=== PATIENT | male | born 1955 | race Caucasian/White ===

== ENCOUNTER 2022-12-12 07:43 | Outpatient (OUT) | payer OTHER, SELFPAY ==
--- NOTE | 2022-12-12 08:10 | CT_ITS ---
[address] [address] Patient Name: RUSSELL SANCHEZ MRN: [id number] date: 1955 Sex: M Assigned Patient Location: LAB Current Patient Location: LAB Accession/Order Number: [id number] Exam Date: 12/12/2022 08:05 Report Date: 12/12/2022 08:45 At the request of: OLEG GONZALEZ Procedure: CT lung screening low-dose EXAMINATION: CT lung screening low-dose HISTORY: Nicotine dependence, COPD F17.219 COMPARISON: 08/26/2022 TECHNIQUE: Axial, Coronal, and Sagittal images were created without the administration of IV contrast material. Dose reduction techniques were achieved by using automated exposure control and/or adjustment of mA and/or kV according to patient size and/or use of iterative reconstruction technique. FINDINGS: LUNGS: Improved aeration of the lungs with a few scattered punctate subcentimeter pulmonary nodules and linear opacities likely representing atelectasis and nonspecific nodules. PLEURA: No mass, effusion, or pneumothorax. VASCULATURE: No abnormality. LUIS FERNANDO: No mass or pathologic adenopathy. MEDIASTINUM: No mass or pathologic adenopathy. CARDIAC: No enlargement or pericardial effusion. Minimal coronary atherosclerosis AORTA: No aneurysm or dissection. CHEST WALL: No mass or axillary adenopathy BONES: No bone lesion or fracture. LIMITED ABDOMEN: No suspicious findings. Limited images of the upper abdomen. OTHER: Negative. IMPRESSION: LUNG SCREENING: Lung-RADS Category 2- Benign Appearance or Behavior. Nodules with a very low likelihood of becoming a clinically active cancer due to size or lack of growth. 2. Continue annual screening with LDCT in 12 months. Electronically authenticated by: MRACI DYE Date: 12/12/2022 08:45
== END 2022-12-12 07:44 ==
LOC: LAB 07:46
PROVIDERS: PCP Internal Medicine; Visit Provider Internal Medicine
DX: F17.211 Nicotine dependence, cigarettes, in remission (principal)
CPT/HCPCS: 71271

== ENCOUNTER 2022-12-12 07:46 | Outpatient (OUT) | payer OTHER, SELFPAY ==
[2022-12-12 09:22] LABS: Prostate Specific Antigen Dx 6.56 ng/mL (<=4.00)
== END 2022-12-12 07:47 | disposition home or self-care (01) ==
LOC: LAB 07:47
PROVIDERS: PCP Internal Medicine
DX: R97.20 Elevated prostate specific antigen [PSA] (principal); F17.211 Nicotine dependence, cigarettes, in remission
CPT/HCPCS: 36415; 71271; 84153

== ENCOUNTER 2023-04-12 10:28 | Outpatient (OUT) | payer MEDICARE, SELFPAY ==
[2023-04-12 12:12] LABS: Prostate Specific Antigen Dx 8.21 ng/mL (<=4.00)
== END 2023-04-12 10:29 | disposition home or self-care (01) ==
LOC: LAB 10:39
PROVIDERS: PCP Internal Medicine; Visit Provider Physician Assistant
DX: R97.20 Elevated prostate specific antigen [PSA] (principal); N40.1 Benign prostatic hyperplasia with lower urinary tract symptoms; N13.8 Other obstructive and reflux uropathy
CPT/HCPCS: 36415; 84153

== ENCOUNTER 2023-06-01 07:35 | Outpatient (OUT) | payer MEDICARE, SELFPAY ==
--- NOTE | 2023-06-01 08:27 | CT_ITS ---
[address] [address] Patient Name: RUSSELL SANCHEZ MRN: [id number] date: 1955 Sex: M Assigned Patient Location: CARD Current Patient Location: CARD Accession/Order Number: [id number] Exam Date: 06/01/2023 08:35 Report Date: 06/01/2023 13:09 At the request of: GOLDY CAVANAUGH Procedure: CT lung screening low-dose EXAMINATION: CT lung screening low-dose HISTORY: Nicotine Dependence F17.211 COMPARISON: 12/12/2022 TECHNIQUE: Axial, Coronal, and Sagittal images were created without the administration of IV contrast material. Dose reduction techniques were achieved by using automated exposure control and/or adjustment of mA and/or kV according to patient size and/or use of iterative reconstruction technique. FINDINGS: LUNGS: Scattered subcentimeter punctate solid and semisolid pulmonary nodules are noted unchanged from the prior exam both in number and size. Linear opacity in the lingula likely scarring. No new significant pulmonary nodule or mass PLEURA: No mass, effusion, or pneumothorax. VASCULATURE: No abnormality. LUIS FERNANDO: No mass or pathologic adenopathy. MEDIASTINUM: No mass or pathologic adenopathy. CARDIAC: No enlargement or pericardial effusion. Minimal coronary atherosclerosis AORTA: No aneurysm or dissection. CHEST WALL: No mass or axillary adenopathy BONES: No bone lesion or fracture. LIMITED ABDOMEN: No suspicious findings. Limited images of the upper abdomen. OTHER: Negative. CT/CT lung screening low-dose IMPRESSION: LUNG SCREENING: Lung-RADS Category 2- Benign Appearance or Behavior. Nodules with a very low likelihood of becoming a clinically active cancer due to size or lack of growth. 2. Continue annual screening with LDCT in 12 months. Electronically authenticated by: MARCI DYE Date: 06/01/2023 13:09
--- NOTE | 2023-06-01 08:42 | CA_ITS ---
Patient Name: RUSSELL SANCHEZ MR#: [id number] : 1955 Exam Date: 06/01/2023 Ordering Doctor: DR Gio Jasso D.O. ECHOCARDIOGRAM REPORT PROCEDURE: CA ECHO DOPPLER COMPLETE INDICATIONS: Systolic heart murmur COMPARISON: None. DESCRIPTION: COMPLETE ECHOCARDIOGRAM Real-time transthoracic echocardiography with 2D, M-mode, spectral and color flow Doppler performed. QUALITY: Technical quality was good. LEFT VENTRICLE: Normal chamber size. Normal left ventricular wall thickness. Systolic function is at the lower limits of normal. LV EF: Lower limits of normal left ventricular ejection fraction, (50-55%). DIASTOLIC: Diastolic function is indeterminate. ATRIAL SEPTUM: LEFT ATRIUM: Moderate dilatation. RIGHT ATRIUM: Moderate dilatation. RIGHT VENTRICLE: Normal chamber size. Normal right ventricular systolic function. TRICUSPID VALVE: Normal mobility and thickness. No stenosis with mild regurgitation. Moderate pulmonary hypertension. RVSP 51 mmHg MITRAL VALVE: Normal mobility and thickness. No evidence of mitral valve stenosis. There is no mitral annular calcification. Mild mitral regurgitation. AORTIC VALVE: Normal trileaflet appearance. Normal leaflet mobility. No evidence of aortic valve stenosis. Thickening of the non-coronary cusp. Mild to moderate aortic regurgitation, with an eccentric regurgitation jet. AORTIC ROOT: Normal diameter and appearance. Mild dilatation of the ascending aorta measuring 3.7cm. PULMONIC VALVE: Normal thickness and mobility. No stenosis. Mild regurgitation. PERICARDIUM: No evidence of pericardial effusion. IVC: Collapses with inspirations. Mild dilatation measuring 2.3 cm. PLEURA: CONCLUSION: 1. The left ventricle is normal in size and exhibits low normal systolic function. LVEF is 50 to 55%. 2. Normal right ventricular size and systolic function. 3. Moderate biatrial dilatation. 4. Mild to moderate aortic regurgitation with an eccentric regurgitation jet. 5. Mild mitral, pulmonic and tricuspid regurgitation. 6. Moderately elevated right-sided pressures. 7. Mildly dilated ascending aorta measuring 3.7 cm. Adult Echocardiography Procedure Report Left Ventricle LVEDD (3.7 - 5.6 cm): 5.60 cm LVESD (2.2 - 4.0 cm): 4.17 cm LVIVS thickness (0.6 - 1.2 cm): 1.03 cm LVPW thickness (0.5 - 1.0 cm): 0.86 cm e': 0.10 m/s E - e': 8.32 LVOT Max Gradient: 4.53 mm[Hg] LVOT Area (cm2): 1.06 m/s Peak Velocity (LVOT): 1.06 m/s Mean Velocity (LVOT): 0.68 m/s LVOT Diameter 2.12 cm Left Ventricular Ejection Fraction: 50-55 % Left Atrium LA Volume Index (2D A2C): 59.93 ml/m2 Left Atrium Systolic Dimension: 4.16 cm Mitral Valve MV E to A Ratio: 1.29 Mitral Valve A-Wave Peak Velocity: 0.62 m/s Mitral Valve E-Wave Peak Velocity: 0.79 m/s Right Ventricle RV Internal Diastolic Dimension: 3.65 cm Aorta AO Root Diam: 3.53 cm Ascending Ao Diam: 3.68 cm Aortic Valve AoV Area (Peak Micah): 2.82 cm2, 2.82 cm2 AoV Area (VTI): 2.66 cm2, 2.66 cm2 Deceleration Izard: 2.24 m/s2, 2.59 m/s2 Pressure Half-Time: 477.26 ms, 436.23 ms Peak Velocity(Antegrade Flow): 1.33 m/s Peak Gradient(Antegrade Flow): 7.09 mm[Hg] Mean Velocity(Antegrade Flow): 0.82 m/s Mean Gradient(Antegrade Flow): 3.18 mm[Hg] Velocity Time Integral: 31.19 cm Tricuspid Valve Peak Velocity (Regurgitant Flow): 2.63 m/s, 3.27 m/s Pulmonic Valve Mean Gradient: 2.16 mm[Hg] Mean Velocity: 0.69 m/s Peak Velocity: 0.99 m/s, 0.79 m/s Peak Gradient: 2.50 mm[Hg], 3.90 mm[Hg] Right Atrium Right Atrium Systolic Pressure: 89.70 ml, 89.70 ml Dictated by: Basim Santos M.D. on 06/01/2023 at 17:16 Approved by: Basim Santos M.D. on 06/01/2023 at 17:21
--- OUTSIDE RECORDS SUMMARY | 2023-06-14 02:30 | XMS_ITS | CCD ---
Author Name Unknown Address [address] [place] [address] Organization [facility] Care Team Providers Care Book Publisher Name Role Phone GIO JASSO Primary Care Physician [phone] Sybil Lee Unavailable Gina Starks Unavailable Gio Jasso Unavailable MAO, DR POWERS Admitting Unavailable BALL, DR POWERS Attending Unavailable BALL, DR POWERS Consulting Unavailable BALL, DR POWERS Primary Care Unavailable MAO, DR POWERS Admitting Unavailable BALL, DR POWERS Primary Care Unavailable BALL, DR POWERS Attending Unavailable BALL, DR POWERS Consulting Unavailable BALL, DR POWERS Attending Unavailable BALL, DR POWERS Consulting Unavailable BALL, DR POWERS Primary Care Unavailable MAO, DR POWERS Admitting Unavailable MCKENZIE, ALEXA Consulting Unavailable MAO, DR POWERS Admitting Unavailable BALL, DR POWERS Attending Unavailable BALL, DR POWERS Primary Care Unavailable HOY ., DR MCCOY Consulting Unavailable LILLY ., DR BELA Merida Admitting Unavailable LILLY ., DR BELA Merida Attending Unavailable BALL, DR POWERS Primary Care Unavailable LILLY ., DR BELA Merida Consulting Unavailable PAY ., DR OROZCO Consulting Unavailable GABY ., PHUC Consulting Unavailable RAYNA, CODY Consulting Unavailable DARAMOLA, MACIE Consulting Unavailable NEWATIA, GRACIE Consulting Unavailable BALL, DR POWERS Admitting Unavailable BALL, DR POWERS Attending Unavailable BALL, DR POWERS Consulting Unavailable BALL, DR POWERS Primary Care Unavailable Lidya Vale Consulting Unavailable Mao, DO Powers Primary Care Provider [phone] EARL Arriola Attending Provider Theresa Arriola Attending Unavailable Theresa Arriola Admitting Unavailable Gio Jasso Primary Care Unavailable DUY GALLEGOS MD Attending Unavailable Aureliano DOYLE Attending Unavailable Meghan Brito Attending Unavailable EARL ARRIOLA Attending EARL Putnam Attending Meghan Grajeda Attending Meghan Bustillos Admitting Meghan Bustillos Attending Meghan Bustillos Referring Meghan Bustillos Attending Unavailable Allergies Allergy Classification Reported Allergen(s) Allergy Type Date of Onset Reaction(s) Facility (9 sources) Cephalexin; Translations: [cephalexin] Drug Allergy 0 Unknown (qualifier value), Dyspnea (finding) [facility] [place] Other (10 sources) Penicillins; Translations: [penicillins] Drug allergy 6 Unknown (qualifier value), Dyspnea (finding) [facility] (2 sources) Penicillin V Drug Allergy rash/cough [facility] [place] Other (9 sources) Cephalexin; Translations: [Keflex] Drug Allergy 6 rash/cough [facility] (7 sources) Penicillin Drug Allergy rash/cough [facility] [place] Other (3 sources) Keflex *CEPHALOSPORINS * Propensity to adverse reactions 8 Unknown [facility] Other (2 sources) Penicillin G Benzathine & Proc Drug allergy 8 Unknown [facility] Other (2 sources) patient allergy list reviewed by nurse or physicia Propensity to adverse reactions 8 Comment:Done [facility] Other (1 source) Cephalexin Drug Allergy 0 [facility] Repository Medications Current Medications Medication Drug Class(es) Dates Sig (Normalized) Sig (Original) [id number] actuat albuterol 0.09 mg/actuat metered dose inhaler (16 sources) beta2-Adrenergic Agonist Start: 05-24-2021 take 2 puff(s) by inhalation every four hours as needed Albuterol Sulfate HFA 108 (90 Base) MCG/ACT 2 puffs Inhalation every 4 hrs as needed Aug, Active Start: 05-24-2021 take 2 puff(s) by in halation every four hours as needed Albuterol Sulfate HFA 108 (90 Base) MCG/ACT 2 puffs Inhalation every 4 hrs as needed Aug, Active Start: 05-24-2021 take 2 puff(s) by in halation every four hours as needed Albuterol Sulfate HFA 108 (90 Base) MCG/ACT 2 puffs Inhalation every 4 hrs as needed Aug, Active 24 hr alfuzosin hydrochloride 10 mg extended release oral tablet (6 sources) alpha-Adrenergic Mary Start: 01-30-2023 take 1 tablet by mouth every twenty-four hours Alfuzosin HCl ER 10 MG 1 tablet immediately after the same meal Orally Once a day for 30 days Apr, Active Start: 07-14-2022 take 1 tablet by chris th once daily alfuzosin 10 mg ER Tab 10 mg = 1 tab(s), Oral, Daily, # 30 tab(s), Refills(s) 5, [facility]: [id number], 180, cm, 10/26/21 9:12:00 EDT, Height/Length Dosing, 95.2, kg, 10/26/21 9:12:00 EDT, Weight Dosing Start Date: 07/14/22 Status: Ordered Start: 07-08-2021 take 1 tablet by [facility] once daily alfuzosin 10 mg ER Tab 10 mg = 1 tab(s), Oral, Daily, # 30 tab(s), Refills(s) 11, [facility]: [id number] [facility], 180, cm, 07/08/21 15:57:00 EST, Height/Length Dosing, 95.2, kg, 07/08/21 15:57:00 EST, Weight Dosing Start Date: 07/08/21 Status: Ordered azithromycin 250 mg oral tablet (1 source) Macrolide Antimicrobial Start: 08-31-2022 Azithromycin 250 MG as directed Orally daily for 5 days Aug, Active carvedilol 6.25 mg oral tablet (15 sources) alpha-Adrenergic Mary, beta-Adrenergic Mary Start: 03-22-2019 take 1 tablet by mouth twice daily carvedilol 6.25 mg Tab 6.25 mg = 1 tab(s), Oral, BID, # 60 tab(s), Refills(s) 0 Start Date: 03/22/19 Status: Ordered Carvedilol Activ e ciprofloxacin 500 mg oral tablet (2 sources) Quinolone Antimicrobial Start: 06-06-2023 take 1 tablet by mouth once ciprofloxacin 500 mg Tab 500 mg = 1 tab(s), Oral, Once, Prophylaxis Start Date: 06/06/23 Status: Ordered Start: 05-10-2023 End: 05-11-2023 take 1 tablet by mouth twice daily Cipro 500 mg Tab 500 mg = 1 tab(s), Oral, BID, Start the morning of procedure., X 1 day(s), # 2 tab(s), Refills(s) 0, Pharmacy: [id number], 180, cm, 05/10/23 10:56:00 EST, Height/Length Dosing, 102, kg, 05/10/23 10:56:00 EST, Weight Dosing Start Date: 05/10/23 Stop Date: 05/11/23 Status: Ordered diazePAM 10 mg oral tablet (2 sources) Benzodiazepine Start: 05-10-2023 Valium 10 mg T ab 10 mg = 1 tab(s), Oral, Once, take 30 minutes prior to procedure, # 1 tab(s), Refills(s) 0, Pharmacy: [facility] #[id number], 180, cm, 05/10/23 10:56:00 EST, Height/Length Dosing, 102, kg, 05/10/23 10:56:00 EST, Weight Dosing Start Date: 05/10/23 Status: Ordered lisinopril 40 mg oral tablet (15 sources) Angiotensin Converting Enzyme Inhibitor Start: 03-22-2019 take 1 mg by mouth once daily lisinopril 40 mg Tab mg tab(s), Oral, Daily, Refills(s) 0 Start Date: 03/22/19 Status: Ordered Lisinopril Activ e rosuvastatin calcium 20 mg oral tablet (11 sources) HMG-CoA Reductase Inhibitor Start: 12-16-2020 take 20 mg by mouth once daily Rosuvastatin Active 20 MG PO Daily December 16, 2020 12:00am Start: 03-26-2019 rosuvastatin O ral, Daily, Refills(s) 0 Start Date: 03/26/19 Status: Ordered Rosuvastatin Eliceo cium Not-Taking/PRN Rosuvastatin Eliceo cium Not-Taking Rosuvastatin Eliceo cium Active tamsulosin hydrochloride 0.4 mg oral capsule (1 source) alpha-Adrenergic Mary Start: 12-16-2020 take 0.4 mg by mouth once daily Tamsulosin Active 0.4 MG PO Daily December 16, 2020 12:00am Completed/Discontinued Medications Medication Drug Class(es) Dates Sig (Normalized) Sig (Original) plenvu 140 gm solution reconstituted (9 sources) Osmotic Laxative, Vitamin C Start: 11-17-2020 Plenvu 140 GM dose 1 pouch at 4pm, dose 2 pouch A & B at 11pm Orally BID for 1 days BIN:[id number] PCN: CNRX GROUP:[id number] ID:[id number] October, Not-Taking/PRN Start: 11-17-2020 Plenvu 140 GM dose 1 pouch at 4pm, dose 2 pouch A & B at 11pm Orally BID for 1 days BIN:[id number] PCN: CNRX GROUP:[id number] ID:[id number] October, Not-Taking Start: 11-17-2020 Plenvu 140 GM dose 1 pouch at 4pm, dose 2 pouch A & B at 11pm Orally BID for 1 days BIN:[id number]: CNRXGROUP:[id number] October, Not-Taking Start: 11-17-2020 Plenvu 140 GM dose 1 pouch at 4pm, dose 2 pouch A & B at 11pm Orally BID for 1 days BIN:[id number]: CNRXGROUP:[id number] October, Active methylPREDNISolone 4 mg oral tablet (9 sources) Corticosteroid Start: 05-24-2021 methylPREDNISolone 4 MG as directed Orally Once a day for 6 days Apr, Not-Taking/PRN ondansetron 4 mg oral tablet (8 sources) Serotonin-3 Receptor Antagonist Start: 08-07-2021 take 1 tablet by mouth every eight hours as needed Ondansetron HCl 4 MG 1 tablet Orally every 8 hours as needed for 5 days Jul, Not-Taking/PRN Problems Active Problems Problem Classification Problem Date Documented Date Episodic/Chronic Asthma (1 source) Unspecified asthma with status asthmaticus; Translations: [UNS ASTHMA W/STATUS ASTHMATICUS] Onset: 08-30-2022 Chronic Chronic obstructive pulmonary disease and bronchiectasis (20 sources) Acute exacerbation of chronic obstructive airways disease; Translations: [Chronic obstructive pulmonary disease with (acute) exacerbation] Onset: 08-30-2022 Chronic Deficiency and other anemia (9 sources) Anemia; Translations: [Anemia, unspecified] Episodic Disorders of lipid metabolism (17 sources) Hyperlipidemia; Translations: [Pure hypercholesterolemia] Onset: 02-28-2018 01-29-2019 Chronic Esophageal disorders (12 sources) Gastroesophageal reflux disease; Translations: [Gastro-esophageal reflux disease with esophagitis] Onset: 02-28-2018 01-29-2019 Chronic Essential hypertension (20 sources) Hypertensive disorder; Translations: [Essential hypertension] Onset: 08-30-2022 01-29-2019 Chronic Fluid and electrolyte disorders (9 sources) Hyponatremia; Translations: [Hypo-osmolality and hyponatremia] Episodic Genitourinary symptoms and ill-defined conditions (17 sources) Delay when starting to pass urine; Translations: [Nocturia] Onset: 02-28-2018 01-29-2019 Episodic Heart valve disorders (2 sources) Aortic valve disorder; Translations: [Other nonrheumatic aortic valve disorders] Chronic Hyperplasia of prostate (20 sources) Benign prostatic hypertrophy with outflow obstruction; Translations: [Benign prostatic hyperplasia with lower urinary tract symptoms] Onset: 03-01-2018 Chronic Immunizations and screening for infectious disease (4 sources) Contact with and (suspected) exposure to other viral communicable diseases; Translations: [Vaccination given] Onset: 05-24-2021 Resolved: 08-07-2021 Episodic Inflammatory conditions of male genital organs (5 sources) Chronic prostatitis 04-23-2020 Chronic Osteoarthritis (5 sources) Arthritis 01-29-2019 Chronic Other aftercare (1 source) Other intermediate (current) drug therapy; Translations: [OTH [facility] CURRENT DRUG THERAPY] Onset: 08-30-2022 Episodic Other aftercare (2 sources) Long-term current use of drug therapy; Translations: [Other keno terminal operator (current) drug therapy] Episodic Other and unspecified benign neoplasm (7 sources) Lipoma of back; Translations: [Benign lipomatous neoplasm of skin and subcutaneous tissue of trunk] Episodic Other and unspecified benign neoplasm (2 sources) Lipoma of skin and subcutaneous tissue of trunk; Translations: [Benign lipomatous neoplasm of skin and subcutaneous tissue of trunk] Episodic Other diseases of kidney and ureters (1 source) Urinary tract obstruction; Translations: [Other obstructive and reflux uropathy] Onset: 10-26-2021 Episodic Other liver diseases (1 source) Abnormal levels of other serum enzymes Episodic Other nutritional; endocrine; and metabolic disorders (5 sources) Body mass index 30+ - obesity; Translations: [Body mass index 31.0-31.9, adult] Onset: 03-02-2018 Chronic Other nutritional; endocrine; and metabolic disorders (2 sources) Obesity; Translations: [Obesity, unspecified] Chronic Other nutritional; endocrine; and metabolic disorders (2 sources) Simple obesity ; Translations: [Other obesity due to excess calories] Onset: 03-02-2018 Chronic Other nutritional; endocrine; and metabolic disorders (1 source) Obesity caused by energy imbalance; Translations: [Other obesity due to excess calories] Chronic Other nutritional; endocrine; and metabolic disorders (2 sources) Overweight; Translations: [Overweight] Episodic Other screening for suspected conditions (not mental disorders or infectious disease) (14 sources) Raised prostate specific antigen; Translations: [Elevated prostate specific antigen [PSA]] Onset: 10-26-2021 Resolved: 11-01-2021 Episodic Other upper respiratory infections (2 sources) Acute maxillary sinusitis; Translations: [Acute maxillary sinusitis, unspecified] Episodic Pneumonia (except that caused by tuberculosis or sexually transmitted disease) (9 sources) Pneumonia, unspecified organism; Translations: [Bacterial pneumonia] Onset: 01-02-2022 Resolved: 11-01-2021 Episodic Respiratory failure; insufficiency; arrest (adult) (1 source) Acute respiratory failure with hypercapnia; Translations: [ACUTE RESP FAIL W/HYPERCAPNIA] Onset: 08-30-2022 Episodic Screening and history of mental health and substance abuse codes (1 source) Personal history of nicotine dependence; Translations: [PERSONAL HISTORY OF NICOTINE DEPEND] Onset: 08-30-2022 Episodic Substance-related disorders (20 sources) Smoker; 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] Onset: 03-02-2018 Resolved: 11-18-2021 04-23-2020 Chronic Unclassified (5 sources) Finding of sensation of bladder 03-26-2020 Unclassified (1 source) ELEV LVLS LIVER TRANSAMINASE LVLS; Translations: [ELEV LVLS LIVER TRANSAMINASE LVLS] Onset: 08-30-2022 Unclassified (1 source) CONTACT W/AND (SUSP) EXPOS COVID-19; Translations: [CONTACT W/AND (SUSP) EXPOS COVID-19] Onset: 08-30-2022 Unclassified (1 source) Benign prostatic hyperplasia with lower urinary tract symptoms; Translations: [Benign prostatic hyperplasia with lower urinary tract symptoms] Onset: 04-03-2023 Varicose veins of lower extremity (11 sources) Varicose veins of lower extremity; Translations: [Asymptomatic varicose veins of unspecified lower extremity] Onset: 02-28-2018 01-29-2019 Episodic Past or Other Problems Problem Classification Problem Date Documented Da te Episodic/Chronic Chronic obstructive pulmonary disease and bronchiectasis (1 source) Bronchitis, not specified as acute or chronic Onset: 05-24-2021 Resolved: 05-24-2021 Episodic Deficiency and other anemia (4 sources) Anemia, unspecified; Translations: [ANEMIA UNSPECIFIED] Onset: 05-18-2022 Episodic Esophageal disorders (5 sources) Esophageal disorders; Translations: [Gastroesophageal reflux disease with esophagitis without hemorrhage] Malaise and fatigue (2 sources) Malaise and fatigue; Translations: [Other malaise and fatigue] Onset: 10-31-2018 Episodic Other connective tissue disease (2 sources) Plantar fascial fibromatosis; Translations: [Plantar fascial fibromatosis] Onset: 06-11-2018 Episodic Residual codes; unclassified (2 sources) Tobacco user; Translations: [Tobacco use] Resolved: 11-18-2021 Episodic Unclassified (2 sources) Exposure to acute respiratory syndrome coronavirus 2; Translations: [Contact with and (suspected) exposure to COVID-19] Resolved: 11-01-2021 Viral infection (1 source) COVID-19 Onset: 05-24-2021 Resolved: 05-24-2021 Results Test Name Value Interpretation Reference Range Facil ity Main OR Intraoperative Recor don 06-09-2023 Main OR Intraoperative Record IntraOp Document Type FT Summary Primary Physician: Meghan Brito MD Finalized Date/Time: 06/09/23 09:45:57 Pt. Name: MICHAEL KILLIAN/Sex: 1955 Male Med Rec #: [id number] Physician: Meghan Brito MD Financial #: [id number] Pt. Type: A Room/Bed: [place] [address] Admit/Disch: 06/06/23 13:31:36 - 06/06/23 18:00:13 Institution: Case Times FT Entry 1 Patient Times In Room 06/06/23 16:29:00 Out Room 06/06/23 16:55:00 Procedure Times Start 06/06/23 16:39:00 Stop 06/06/23 16:49:00 Anesthesia Times Last Modified By: Jacinta Don Ii 06/09/23 09:41:07 General Comments: 06/09/23 Chart opened to review and send charges [facility] CSFA Case Attendance FT Entry 1 Entry 2 Entry 3 Case Attendee Daryl HAMILTON, Niall Alexander Alfons Ii F Role Performed Surgeon - Primary Scrub - Primary Cigarette Inspector - Primary Time In 06/06/23 16:38:00 06/06/23 16:29:00 06/06/23 16:29:00 Time Out 06/06/23 16:49:00 06/06/23 16:55:00 06/06/23 16:55:00 Procedure PROSTATE TRANSPERINEAL PROSTATE TRANSPERINEAL PROSTATE TRANSPERINEAL BIOPSY WITH ULTRA(.) BIOPSY WITH ULTRA(.) BIOPSY WITH ULTRA(.) Comments Last Modified By: Jacinta Don Ii, Alfons Ii F Letrondo, Alfons Ii F 06/06/23 16:58:09 06/06/23 16:58:09 06/06/23 16:58:09 Entry 4 Case Attendee Waqar ENCISO, Sadie Chinchilla Role Performed Staff - Other Time In 06/06/23 16:29:00 Time Out 06/06/23 16:55:00 Procedure PROSTATE TRANSPERINEAL BIOPSY WITH ULTRA(.) Comments HELPED IN ROOM POSITION. TRANSPORTED THE PATIENT TO OR Last Modified By: Jacinta Don Ii 06/06/23 16:58:09 Perioperative Protocols FT Pre-Care Text: Implements protective measures prior to operative or invasive procedure, confirms identity before the operative or invasive procedure, verifies operative procedure, surgical site, and laterality Entry 1 Procedure(s) PROSTATE TRANSPERINEAL Patient Identity Birthday, ID Band BIOPSY WITH ULTRA(.) Verified (select at Check, Patient least 2): Participation Consents / H and P Anesthesia Consent, Operative Site N/A Verified HandP, Surgery/Procedure Marking Verified Consent Surgical Site Yes Laterality Verified n/a Verified Procedure Verified Yes Correct Patient Yes Position Verified Availability Equipment, Medication Prep Dry No Verified (If Applicable) PreOp Antibiotic No Time Out Daryl HAMILTON, Meghan Tucker, Given Participants Niall Watson Letrondo, Alfons Ii F, Waqar ENCISO, Sadie Chinchilla Time Out Complete 06/06/23 16:38:00 Outcomes Met? Yes Last Modified By: Jacinta Don Ii 06/06/23 16:41:31 Post-Care Text: The patient is free from signs and symptoms of injury caused by extraneous objects Allergy Information FT Pre-Care Text: Verifies allergies Entry 1 Allergies Reviewed? Yes Allergies Reviewed Self/Patient With Outcomes Met? Yes Last Modified By: Jacinta Don Ii 06/06/23 16:41:39 Post-Care Text: The patient received appropriate medication(s) safely administered during the perioperative period Surgical Procedures FT Entry 1 Procedure Description Procedure PROSTATE TRANSPERINEAL Modifiers . BIOPSY WITH ULTRASOUND Surgeon Description TRANSPERINEAL PROSTATE BIOPSY Primary Procedure Yes Primary Surgeon Meghan Brito MD Start 06/06/23 16:39:00 Stop 06/06/23 16:49:00 Anesthesia Type Local Surgical Service Urology Wound Class 2 - Clean-Contaminated Last Modified By: Jacinta Don Ii 06/06/23 17:02:29 General Case Data FT Pre-Care Text: Classifies surgical wound, implements aseptic technique, initiates traffic control Entry 1 Case Information OR OR 4 FT Case Level Level 1 Wound Class 2 - Clean-Contaminated Specialty Urology Preop Diagnosis ELEVATED PSA Postop Same As Preop Yes Postop Diagnosis ELEVATED PSA Outcomes Met? Yes Last Modified By: Eloina Yo CST 06/09/23 09:41:21 Post-Care Text: The patient is free from signs and symptoms of infection Skin Assessment (Pre Procedure) FT Pre-Care Text: Implements protective measures to prevent skin/ tissue injury due to thermal or mechanical sources Evaluates for signs and symptoms of physical injury to skin and tissue Entry 1 Skin Integrity Intact, [place], Warm, and Skin Abnormality No Dry Outcomes Met? Yes Last Modified By: FlorenciaJacinta Jojo Arredondo 06/06/23 16:42:17 Post-Care Text: The patient is free from signs and symptoms of injury caused by extraneous objects Patient Positioning FT Pre-Care Text: Identifies physical alterations that require additional precautions for procedure-specific positioning, verifies presence of prosthetics or corrective devices, positions the patient, evaluates the patient for signs and symptoms of injury as a result of positioning Entry 1 Procedure PROSTATE TRANSPERINEAL Body Position Low Lithotomy BIOPSY WITH ULTRA(.) Feet Uncrossed? Yes Left Arm Position Extended on Padded Arm Board Right (more content not included)... Normal [facility] Discharge Instructionson Discharge Instructions [id number]#1.00TIFF [facility] IntraOperative Documentson 08-09-2022 IntraOperative Documents [id number]#1.00TIFF Normal [facility] IntraOperative Documents [id number] Normal [facility] IntraOperative Documents [id number]#1.00TIFF [facility] Preoperative Documentson Preoperative Documents [id number]#1.00TIFF [facility] Consent for Procedure/Surger yon 06-06-2023 Consent for Procedure/Surgery [id number]#1.00TIFF [facility] Consent for Treatmenton 05-26 Consent for Treatment [id number]#1.00TIFF [facility] Discharge Instructionson Discharge Instructions MICHAEL KILLIAN :1955 Visit Date:06/06/2023 Inpatient Discharge Instructions Your Care Team Admitting Physician - Meghan Brito MD Referring Physician - Meghan Brito MD Reason for Your Visit ELEVATED PSA Tests Performed Pathology Tissue Exam -- Results Pending -- Please visit your patient portal for your results or contact your primary care physician. Procedure History Transrectal biopsy of prostate using ultrasound (US) guidance (04/07/2020), Transrectal biopsy of prostate using ultrasound (US) guidance (08/12/2015), Hernia repair, Tonsillectomy. What to do next Instructions From Your Doctor Event Name Event Result Discharge Activity Ambulate as tolerated, Expect mild pain, Expect minimal amount of drainage and/or bleeding Discharge Restrictions Do not operate machinery or tools Discharge Diet(s) Regular Call Your Doctor For Persistent or heavy bleeding, Temperature above 101.5 degrees, Redness, swelling, or pus at operative site, Severe pain at the operative site, Persistent vomiting Pharmacy Information Other: [facility] Discharge Instructions Discharge Instructions Previously Scheduled Follow-Up Appointments Monday 10:30 AM EST With: Meghan Brito MD Where: [facility] Comment on above: Result Comment: Elec tronically Signed By: Alcides ENCISO, Dori Mallory\.br\Date and Time Signed: 06/06/23 17:16 EST H&P Updateon 06-06-2023 H&P Update [id number] IFF [facility] Inpatient Patient Summaryon 06-06-2023 Inpatient Patient Summary [place] [id number] [facility] Clinical Discharge Instructions PERSON INFORMATION Name: MICHAEL KILLIAN [facility]ANS Admitting Physician: Meghan Brito MD Attending Physician: Meghan Brito MD PCP: GIO JASSO DO Discharge Diagnosis: Elevated PSA Comment: PATIENT EDUCATION INFORMATION Instructions: EU - Transrectal Ultrasound of the Prostate with US guided biopsy Discharge Instructions (CUSTOM) Medication Leaflets: Follow up: With: Address: When: Meghan Brito Comments: Keep scheduled appointment Type Location Start Finish State [facility] Office [place] [facility] [place] 06/14/2023 10:30 AM 06/14/2023 10:45 AM Confirmed MEDICATION LIST Medications to Continue with No Changes Other Medications alfuzosin (alfuzosin 10 mg ER Tab) 1 Tablets By Mouth every day. Refills: 5. carvedilol (carvedilol 6.25 mg Tab) 1 Tablets By Mouth 2 times a day. ciprofloxacin (ciprofloxacin 500 mg Tab) 1 Tablets By Mouth Once. diazepam (Valium 10 mg Tab) 1 Tablets By Mouth Once. take 30 minutes prior to procedure. Refills: 0. lisinopril (lisinopril 40 mg Tab) By Mouth every day. Comment: Normal [facility] Operative Reporton Operative Report Patient: JANIE KILLIAN Age: 68 years Sex: Male : 1955 Associated Diagnoses: None Author: Meghan Brito MD Procedure Procedure Date: 06/06/2023. Confirmed: patient, procedure, site, safety procedures followed. Performed by: Meghan Brito MD. Type of procedure: Procedure: 1. Transrectal ultrasound of the prostate and seminal vesicles 2. Ultrasound for needle biopsy 3. Nerve Block of Prostate 4. Prostate biopsy, transperineal approach Anesthesia: local, periprostatic nerve block 1% lidocaine without epinephrine . Informed consent: signed by patient. Indication: 68-year-old male with history of elevated PSA of 8.21, PSA density of 0.09 on 04/12/2023. He had a prior prostate biopsy in 2015 with a microfocus of low-grade PIN and 2 cores JEREMIAH. Repeat biopsy in 2019 was negative. Prostate MRI on 04/03/2023 showed prior prostatitis, no prostate lesions however enlarged right pelvic sidewall and left external iliac lymph nodes. 92 mL volume. Select MDX showed 95% likelihood of detecting [place] 7 or higher. After discussion of risks/benefits of management options, patient elected to proceed with transperineal prostate biopsy under local. Risks were discussed including but not limited to bleeding, pain, infection, damage to surrounding structures and need for additional procedures.. Findings: Findings: Calcifications: Few scattered in transitional zone Cysts: Few small cysts and transition zone Hypoechogenic areas: None Volume: 68 cc, including width 5 cm, height 4.6 cm, and length 5.7 cm (likely underestimated given MRI and inability to fully visualize prostate due to artifact) The seminal vesicles were visualized bilaterally and normal in size, shape and echotexture. MARIZA: Moderately enlarged, nontender, no firm nodules . Procedure tolerated: well. Specimen: sent to pathology, SPECIMENS SUBMITTED ( 2 cores each) 1. Right posterior medial 2. Right posterior lateral 3. Right base 4. Right anterior medial 5. Right anterior lateral 6. Left posterior medial 7. Left posterior lateral 8. Left base 9. Left anterior medial 10. Left anterior lateral . Complications: None. DESCRIPTION OF PROCEDURE: After informed consent was obtained, the patient was taken to the operating room. The patient has been on oral antibiotics. The patient was placed in the dorsal lithotomy position on the operating table, taking care to pad all possible pressure points. An operative timeout was performed. A MARIZA was performed noting findings above. The scrotum was elevated and held out of the way using tape/towel to expose the perineum. Excessive hair was shaved off the perineum. The perineum is prepped with Betadine solution. Lidocaine gel was inserted per rectum. A well-lubricated ultrasound probe was inserted into the rectum and the prostate was aligned. The gland was visualized fully in axial and sagittal views to allow for the identification of anatomy and location of the urethra, as noted in findings. The Precision Point device was secured on the ultrasound probe. The local anesthetic was delivered to the skin followed by periprostatic region and levators. 2 core needle biopsies were obtained from the posterior medial, posterior lateral, base, anterior lateral, and anterior medial of the left and right sides. The ultrasound probe was removed. The perineum was dressed with antibiotic ointment, fluffs and scrotal support. Adequate hemostasis was achieved. The patient tolerated the procedure well without complications. CULTURES TAKEN: None. PATIENT CONDITION: Stable. PLAN: Void prior to dc home. The patient knows to call or go immediately to the emergency room should he develop fevers, chills, inability to urinate, bleeding or any other concerns. Follow-up in 1-2 weeks for pathology review. . Impression and Plan Diagnosis Elevated PSA ([id number] R97.20, Discharge, Medical). Diagnosis Elevated PSA ([id number] R97.20, Discharge, Medical). Normal [facility] Comment on above: Result Comment: Elec tronically Signed By: Meghan Brito MD\.br\Date and Time Signed: 06/06/23 16:58 EST Outpatient Surgery Discharge Instructionon 06-06-2023 Outpatient Surgery Discharge Instruction [place] [id number] Patient Discharge Instructions PERSON INFORMATION Name: MICHAEL KILLIAN Date of : 1955 Current Date: 06/06/2023 16:52:42 PHYSICIANS Admitting Physician: Meghan Brito MD Discharge Diagnosis: Elevated PSA MICHAEL KILLIAN has been given the following list of follow-up instructions, prescriptions, and patient education materials: PATIENT FOLLOW-UP INFORMATION Diet: Regular Discharge Activity: Ambulate as tolerated, Expect mild pain, Expect minimal amount of drainage and/or bleeding Discharge Restrictions: Do not operate machinery or tools Call Your Doctor For: Persistent or heavy bleeding, Temperature above 101.5 degrees, Redness, swelling, or pus at operative site, Severe pain at the operative site, Persistent vomiting IF UNABLE TO CONTACT YOUR PHYSICIAN AND YOU FEEL IT IS AN EMERGENCY, GO TO THE NEAREST EMERGENCY ROOM OR CALL 911 I DANIEL MICHAEL Bush, have received the attached patient education materials/instructions and have verbalized understanding: May we do a follow up call? Yes No I was present when discharge instructions were given Patient Signature Date Clinican/Nurse Signature Date Follow up: With: Address: When: Meghan Brito Comments: Keep scheduled appointment Type Location Start Finish State URO Office Visit [facility] 06/14/2023 10:30 AM 06/14/2023 10:45 AM Confirmed Pharmacy Information: Other: [facility] You may receive a survey from Nicolas Marvin asking you to rate your care experience. Your feedback is important and will help us understand what we do well and how we can improve the quality of care we provide to you, your loved ones and our community. It?s an honor to serve you. Thank you for choosing [facility] HERE ARE THE MEDICATION CHANGES THAT OCCURRED DURING YOUR HOSPITAL STAY Medications to Continue with No Changes Other Medications alfuzosin (alfuzosin 10 mg ER Tab) 1 Tablets By Mouth every day. Refills: 5. carvedilol (carvedilol 6.25 mg Tab) 1 Tablets By Mouth 2 times a day. ciprofloxacin (ciprofloxacin 500 mg Tab) 1 Tablets By Mouth Once. diazepam (Valium 10 mg Tab) 1 Tablets By Mouth Once. take 30 minutes prior to procedure. Refills: 0. lisinopril (lisinopril 40 mg Tab) By Mouth every day. PATIENT EDUCATION INFORMATION Instructions: Transperineal?Biopsy of the Prostate Discharge Instructions After the procedure, it is common to have: ? Pain and discomfort near your rectum, especially while sitting. ? [place]-colored urine due to small amounts of blood in your urine for 4-5 weeks. When your urine turns red, limit your activities and drink plenty of fluids. ? A burning feeling while urinating. ? Blood in your semen. If you go home with a Fisher catheter in place, you will have it removed at your follow-up clinic appointment or by your own doctor (urologist). Your may be allowed to remove your Fisher catheter at home. If so, our nursing staff will teach you how to remove the catheter and provide you with a syringe to remove the fluid. You may have discoloration (black/blue), pain, and swelling to the?perineal?area (between your thighs) for up to 3 weeks. Ice, elevation, and supportive underwear can help ease these symptoms. ? Medications Ok to restart taking aspirin or other blood thinners after 24 hours. Antibiotics may be prescribed by your doctor. If they are, take them until they are gone. As needed for pain: Ibuprofen 400-800mg every 6 hours, alternate 3 hours in between with Tylenol 650-1000mg every 6 hours. Activity You may begin driving 24 hours after surgery if you are not taking prescription pain medication. If you were given a sedative during your procedure, it can affect you for several hours. Do not drive or operate machinery until your health care provider says that it is safe. No heavy lifting for 2-3?days (nothing greater than 10 pounds). Avoid straining with bowel movements, take stool softeners if needed. Avoid sexual intercourse or masturbation for 4-5 days ? Diet Drink plenty of fluids. Continue your normal diet. When to call the doctor If you experience a temperature of 101.5? F or greater If you experience chills with or without fever If you experience pain that gets worse If you have difficulty urinating or catheter-related problems Medication Leaflets: [place] [facility] Patient Education - Texton 1 08-07-2022 Patient Education - Text Transperineal?Biopsy of the Prostate Discharge Instructions After the procedure, it is common to have: ? Pain and discomfort near your rectum, especially while sitting. ? [place]-colored urine due to small amounts of blood in your urine for 4-5 weeks. When your urine turns red, limit your activities and drink plenty of fluids. ? A burning feeling while urinating. ? Blood in your semen. If you go home with a Fisher catheter in place, you will have it removed at your follow-up clinic appointment or by your own doctor (urologist). Your may be allowed to remove your Fisher catheter at home. If so, our nursing staff will teach you how to remove the catheter and provide you with a syringe to remove the fluid. You may have discoloration (black/blue), pain, and swelling to the?perineal?area (between your thighs) for up to 3 weeks. Ice, elevation, and supportive underwear can help ease these symptoms. ? Medications Ok to restart taking aspirin or other blood thinners after 24 hours. Antibiotics may be prescribed by your doctor. If they are, take them until they are gone. As needed for pain: Ibuprofen 400-800mg every 6 hours, alternate 3 hours in between with Tylenol 650-1000mg every 6 hours. Activity You may begin driving 24 hours after surgery if you are not taking prescription pain medication. If you were given a sedative during your procedure, it can affect you for several hours. Do not drive or operate machinery until your health care provider says that it is safe. No heavy lifting for 2-3?days (nothing greater than 10 pounds). Avoid straining with bowel movements, take stool softeners if needed. Avoid sexual intercourse or masturbation for 4-5 days ? Diet Drink plenty of fluids. Continue your normal diet. When to call the doctor If you experience a temperature of 101.5? F or greater If you experience chills with or without fever If you experience pain that gets worse If you have difficulty urinating or catheter-related problems Normal [facility] Outside Recordson 05-15-2023 Outside Records [id number] [facility] Ambulatory Visit Summaryon 1 07-12-2022 Ambulatory Visit Summary DANIELJANIEMICHAEL J :1955 Visit Date:05/10/2023 Ambulatory Visit Instructions Your Diagnosis Elevated PSA BPH with urinary obstruction Tests Performed Urnls Dip Stick Auto w/o Microscopy POC 44930 Your Care Team Attending Physician - Daryl HAMILTON, Meghan Tucker Primary Care Physician - GIO JASSO DO This Is Your Medications List alfuzosin (alfuzosin 10 mg ER Tab) diazepam (Valium 10 mg Tab) Contact prescribing physician if questions or concerns carvedilol (carvedilol 6.25 mg Tab) lisinopril (lisinopril 40 mg Tab) Procedures Performed Transrectal biopsy of prostate using ultrasound (US) guidance (04/07/2020), Transrectal biopsy of prostate using ultrasound (US) guidance (08/12/2015), Hernia repair, Tonsillectomy. What to do next Scheduled Follow-Up Appointments Monday 2:30 PM EST With: Where: [facility] Surgical Services Monday 10:30 AM EST With: Meghan Brito MD Where: [facility] Nas Normal [facility] Patient Educationon 05-10-20 Patient Education Oncology Prostate Cancer Screening Prostate cancer screening is testing that is done to check for the presence of prostate cancer in men. The prostate gland is a walnut-sized gland that is located below the bladder and in front of the rectum in males. The function of the prostate is to add fluid to semen during ejaculation. Prostate cancer is one of the most common types of cancer in men. Who should have prostate cancer screening? Screening recommendations vary based on age and other risk factors, as well as between the professional organizations who make the recommendations. In general, screening is recommended if: ? You are age 50 to 70 and have an average risk for prostate cancer. You should talk with your health care provider about your need for screening and how often screening should be done. Because most prostate cancers are slow growing and will not cause , screening in this age group is generally reserved for men who have a 10- to 15-year life expectancy. ? You are younger than age 50, and you have these risk factors: ? Having a father, brother, or uncle who has been diagnosed with prostate cancer. The risk is higher if your family member's cancer occurred at an early age or if you have multiple family members with prostate cancer at an early age. ? Being a male who is Black or is of [place] or sub-Saharan descent. In general, screening is not recommended if: ? You are younger than age 40. ? You are between the ages of 40 and 49 and you have no risk factors. ? You are 70 years of age or older. At this age, the risks that screening can cause are greater than the benefits that it may provide. If you are at high risk for prostate cancer, your health care provider may recommend that you have screenings more often or that you start screening at a younger age. How is screening for prostate cancer done? The recommended prostate cancer screening test is a blood test called the prostate-specific antigen (PSA) test. PSA is a protein that is made in the prostate. As you age, your prostate naturally produces more PSA. Abnormally high PSA levels may be caused by: ? Prostate cancer. ? An enlarged prostate that is not caused by cancer (benign prostatic hyperplasia, or BPH). This condition is very common in older men. ? A prostate gland infection (prostatitis) or urinary tract infection. ? Certain medicines such as male hormones (like testosterone) or other medicines that raise testosterone levels. A rectal exam may be done as part of prostate cancer screening to help provide information about the size of your prostate gland. When a rectal exam is performed, it should be done after the PSA level is drawn to avoid any effect on the results. Depending on the PSA results, you may need more tests, such as: ? A physical exam to check the size of your prostate gland, if not done as part of screening. ? Blood and imaging tests. ? A procedure to remove tissue samples from your prostate gland for testing (biopsy). This is the only way to know for certain if you have prostate cancer. What are the benefits of prostate cancer screening? ? Screening can help to identify cancer at an early stage, before symptoms start and when the cancer can be treated more easily. ? There is a small chance that screening may lower your risk of dying from prostate cancer. The chance is small because prostate cancer is a slow-growing cancer, and most men with prostate cancer from a different cause. What are the risks of prostate cancer screening? The main risk of prostate cancer screening is diagnosing and treating prostate cancer that would never have caused any symptoms or problems. This is called overdiagnosisand overtreatment. PSA screening cannot tell you if your PSA is high due to cancer or a different cause. A prostate biopsy is the only procedure to diagnose prostate cancer. Even the results of a biopsy may not tell you if your cancer needs to be treated. Slow-growing prostate cancer may not need any treatment other than monitoring, so diagnosing and treating it may cause unnecessary stress or other side effects. Questions to ask your health care provider ? When should I start prostate cancer screening? ? What is my risk for prostate cancer? ? How often do I need screening? ? What type of screening tests do I need? ? How do I get my test results? ? What do my results mean? ? Do I need treatment? Where to find more information ? The [place] [employer]: www.cancer.org ? [place] [employer]: www.auanet.org Contact a health care provider if: ? You have difficulty urinating. ? You have pain when you urinate or ejaculate. ? You have blood in your urine or semen. ? You have pain in your back or in the area of your prostate. Summary ? Prostate cancer is a common type of cancer in men. The prostate gland is located below the bladder and in front of the rectum. This gland adds flu (more content not included)... Normal [facility] Screenson 05-10-2023 Screens [id number] IFF Normal [facility] Screens [id number] IFF Normal [facility] Urology Office/Clinic Noteon 05-10-2023 Urology Office/Clinic Note Chief Complaint Review Select MDx & MRI & PSA HPI Staff PRIYA pt Here today to discuss options. *Alfuzosin 10mg qd therapy MRI Prostate 04/03/23 PSA 04/12/23- 8.21 Select MDx collected 04/11/23 Denies Family Hx of Prostate Cancer NEG TRUS Bx in 2019 & 2015. History of Present Illness Tests reviewed: reviewed UA, MRI, PSA, and Select MDX. I have reviewed the previous health record information and history for this patient from Theresa Arriola PA-C. I have reviewed and verified the staff HPI to be accurate for this encounter. There have been no associated fever, chills, flank pain, or blood in the urine. Denies any urinary infections since last encounter. Review of Systems PHQ Score Initial Depression Screen Score: 0 SCORE ROS - Provider Constitutional: denies weight loss, denies hot flashes. Eyes: denies eye problems. Gastrointestinal: denies nausea, denies vomiting. Cardiovascular: denies chest pain or angina. Integumentary: no dryness Musculoskeletal: denies musculoskeletal symptoms. ENMT: denies otolaryngeal symptoms. Respiratory: no shortness of breath. Heme/Lymph: denies easy bleeding tendency, denies easy bruising tendency. Psychiatric: no confusion, no anxiety. Genitourinary: See HPI. Physical Exam Vitals & Measurements HR: 68(Peripheral) RR: 16 BP: 132/76 HT: 71 in HT: 180 cm WT: 102 kg WT: 224.4 lb BMI: 31.48 General Appearance: alert, no distress, well nourished, well developed male. 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 Previously seen by PRIYA. 1. Elevated PSA (R97.20: Elevated prostate specific antigen [PSA]) TRUS/bx 08/12/15 - microfocus of low grade PIN and 2 cores with atypical glandular acinar aggregate. TRUS/bx 04/07/20 - neg. PSA 01/2017 - 3.93 01/2018 - 3.84 02/04/19 - 4.27 10/24/19 - 6.60 03/05/20 - 5.32 10/08/20 - 5.87 10/12/21 - 5.5 & 24.7% 12/12/22 - 6.56 04/12/23 - 8.21, PSAD 0.09 Prostate MRI 04/03/23 - suggestive of prior prostatitis. Enlarged R pelvic sidewall and L external iliac lymph nodes, largest measuring 12mm in short axis. Nonspecific finding. 92 ml volume Select MDX 04/13/23 - shows low risk likelihood of prostate cancer upon bx. 95% likelihood of detecting [place] scores >=7 cancer. Today I reviewed the patients past history including voiding symptoms, PSA history and any prior prostate biopsy information that is available. We discussed the controversies that exist in the field of PSA based cancer testing and the absence of exact correlation of PSA data to the presence or absence of prostate cancer on biopsy. I discussed the production of PSA by the prostate gland as well as common causes of elevated serum PSA including infection, inflammation, BPH and prostate cancer. He understood that his PSA level may also be falsely elevated due to any manipulation/instrumentation around the time of a PSA draw. I discussed the absolute value of PSA as well as PSA velocity and age specific PSA and the implications with the patient. The PCPT (prostate cancer prevention trial) risk calculator estimates his risk of prostate cancer to be 29% including a 16% risk of high grade disease and a 13% risk of low grade disease. I gave the patient management options moving forward and explained the risks/benefits of each one: -Continue monitoring PSA with repeat in 6-12 months -Proceed with biopsy, transperineal for different approach, anterior sampling improved. We discussed risks of prostate biopsy approaches including transrectal and transperineal. Risks of the procedure were discussed to include but not be limited to bleeding, pain, infection (higher, including sepsis with transrectal approach), difficulties with urination, injury to the urethra, prostate or bladder or surrounding tissues, injury from positioning on the table, swelling and bruising of the skin, and need for further procedures. -Will schedule Transperineal Prostate Biopsy. Will order Local anesthesia. -Will send Valium 10mg, and Cipro 500mg BID to pharm on file. Discussed the medication side effects, and the patient will monitor closely for these, as well as for symptom improvement. If severe side effects occur, the medication should be stopped and the office notified. 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 2. BPH with urinary obstruction (N40.1: Benign prostatic hyperplasia with lower urinary tract symptoms) Pt states that he had tried Tamsulosin in the past, did not help as much. IPSS 17(20). Taking Alfuzosin 10mg ER qd. Gets up 0-3x/night on occasion. Denies urgency during the day. Discussed adding a new med along with the Alfuzosin if he felt it was needed. Counseled pt on the risks of waiting until his sxs become worse over time. Pt states that he would like to wait a little longer before starting a new med. Advised pt to make sure he does not wait too long to void and reduce his fluids before bed to reduce nocturia. The need to void does not wake him up all of the time. -Timed voids (more content not included)... [facility] Comment on above: Result Comment: Elec tronically Signed By: Daryl HAMILTON, Meghan Tucker\.br\Date and Time Signed: 05/10/23 11:31 EST\.br\Electronically Co-Signed By: Nevaeh Padilla.br\Date and Time Co-Signed: 05/10/23 11:22 EST Lab Reportson 04-18-2023 Lab Reports [id number] IFF [facility] Physician Orderon 04-13-2023 Physician Order [id number] [facility] Formson 04-12-2023 Forms [id number] FF Normal [facility] Lab Reportson 04-12-2023 Lab Reports [id number] IFF Normal [facility] Patient Educationon 04-11-20 Patient Education Oncology Prostate Cancer Screening Prostate cancer screening is testing that is done to check for the presence of prostate cancer in men. The prostate gland is a walnut-sized gland that is located below the bladder and in front of the rectum in males. The function of the prostate is to add fluid to semen during ejaculation. Prostate cancer is one of the most common types of cancer in men. Who should have prostate cancer screening? Screening recommendations vary based on age and other risk factors, as well as between the professional organizations who make the recommendations. In general, screening is recommended if: ? You are age 50 to 70 and have an average risk for prostate cancer. You should talk with your health care provider about your need for screening and how often screening should be done. Because most prostate cancers are slow growing and will not cause , screening in this age group is generally reserved for men who have a 10- to 15-year life expectancy. ? You are younger than age 50, and you have these risk factors: ? Having a father, brother, or uncle who has been diagnosed with prostate cancer. The risk is higher if your family member's cancer occurred at an early age or if you have multiple family members with prostate cancer at an early age. ? Being a male who is Black or is of [place] or sub-Saharan descent. In general, screening is not recommended if: ? You are younger than age 40. ? You are between the ages of 40 and 49 and you have no risk factors. ? You are 70 years of age or older. At this age, the risks that screening can cause are greater than the benefits that it may provide. If you are at high risk for prostate cancer, your health care provider may recommend that you have screenings more often or that you start screening at a younger age. How is screening for prostate cancer done? The recommended prostate cancer screening test is a blood test called the prostate-specific antigen (PSA) test. PSA is a protein that is made in the prostate. As you age, your prostate naturally produces more PSA. Abnormally high PSA levels may be caused by: ? Prostate cancer. ? An enlarged prostate that is not caused by cancer (benign prostatic hyperplasia, or BPH). This condition is very common in older men. ? A prostate gland infection (prostatitis) or urinary tract infection. ? Certain medicines such as male hormones (like testosterone) or other medicines that raise testosterone levels. A rectal exam may be done as part of prostate cancer screening to help provide information about the size of your prostate gland. When a rectal exam is performed, it should be done after the PSA level is drawn to avoid any effect on the results. Depending on the PSA results, you may need more tests, such as: ? A physical exam to check the size of your prostate gland, if not done as part of screening. ? Blood and imaging tests. ? A procedure to remove tissue samples from your prostate gland for testing (biopsy). This is the only way to know for certain if you have prostate cancer. What are the benefits of prostate cancer screening? ? Screening can help to identify cancer at an early stage, before symptoms start and when the cancer can be treated more easily. ? There is a small chance that screening may lower your risk of dying from prostate cancer. The chance is small because prostate cancer is a slow-growing cancer, and most men with prostate cancer from a different cause. What are the risks of prostate cancer screening? The main risk of prostate cancer screening is diagnosing and treating prostate cancer that would never have caused any symptoms or problems. This is called overdiagnosisand overtreatment. PSA screening cannot tell you if your PSA is high due to cancer or a different cause. A prostate biopsy is the only procedure to diagnose prostate cancer. Even the results of a biopsy may not tell you if your cancer needs to be treated. Slow-growing prostate cancer may not need any treatment other than monitoring, so diagnosing and treating it may cause unnecessary stress or other side effects. Questions to ask your health care provider ? When should I start prostate cancer screening? ? What is my risk for prostate cancer? ? How often do I need screening? ? What type of screening tests do I need? ? How do I get my test results? ? What do my results mean? ? Do I need treatment? Where to find more information ? The [place] [employer]: www.cancer.org ? [place] [employer]: www.auanet.org Contact a health care provider if: ? You have difficulty urinating. ? You have pain when you urinate or ejaculate. ? You have blood in your urine or semen. ? You have pain in your back or in the area of your prostate. Summary ? Prostate cancer is a common type of cancer in men. The prostate gland is located below the bladder and in front of the rectum. This gland adds flu (more content not included)... Normal 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 MRI Prostate 04/03/23 Pt was to have [facility]X as well...... Not done yet. (Did not get urine specimen today) IPSS 20 BUD 19 Mostly concerned with frequency during the night. Occasionally 3x/night. Is awakened by the urge to void. Denies frequency during the day, longer than q2hrs. Weakened stream through the night, does improve during the day. History of Present Illness staff HPI reviewed and agree. Review of Systems PHQ Score Initial Depression Screen Score: 0 no fever, chills, malaise, myalgia. no rash/lesions. no chest pain, palpitations, or SOB. no abdominal pain, nausea, vomiting. no unilateral calf swelling, redness, pain Physical Exam Vitals & Measurements HR: 68(Peripheral) RR: 16 BP: 134/75 HT: 71 in HT: 180 cm WT: 102.3 kg WT: 225.06 lb BMI: 31.57 General: nontoxic, NAD Mouth: moist mucosa Lungs: normal respiratory effort Cardio: regular rate, good distal perfusion Abdomen: nondistended, no suprapubic distention or tenderness, no CVA tenderness Neurologic: Grossly normal Skin: No rashes or suspicious lesions MARIZA: no asymmetry. a bit firm to touch but not 'rock hard.' no discrete nodule appreciated. 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 1. Elevated PSA (R97.20: Elevated prostate specific antigen [PSA]) TRUS/bx 08/12/15 - microfocus of low grade PIN and 2 cores with atypical glandular acinar aggregate. TRUS/bx 04/07/20 - neg. PSA 01/2017 - 3.93 01/2018 - 3.84 02/04/19 - 4.27 10/24/19 - 6.60 03/05/20 - 5.32 10/08/20 - 5.87 10/12/21 - 5.5 & 24.7% 12/12/22 - 6.56 Prostate MRI 04/03/23 - suggestive of prior prostatitis. Enlarged R pelvic sidewall and L external iliac lymph nodes, largest measuring 12mm in short axis. Nonspecific finding. Discussed this could represent mets from occult prostate cancer. Was not scheduled for Select MDX collection as instructed. Offered options: proceed w scheduling biopsy now VS repeat PSA now and submit urine for [facility]X. Since pt had 2 biopsies already, he prefers the latter. Urine collected and submitted for [facility]. Pt given order for PSA. Will complete at [facility]. Return in about 4 weeks to review all results, ideally w MD if available, since this is a complicated case. 2. BPH with urinary obstruction (N40.1: Benign prostatic hyperplasia with lower urinary tract symptoms) IPSS 20 (16). Taking Alfuzosin 10mg ER qd. Gets up 3x/night on occasion. Denies urgency during the day. Would like to complete cysto and discuss MIPPS in future once we sort through #1. Follow up in 1 month w/ PSA and Select [facility]X or sooner if needed. Pt understands and agrees with plan. Follow-up With When Contact Information FLAKO ELLIOTT, THERESA [place], URL [address] [place] [address] [phone] Additional Instructions: f/u with MD in 1 month w/ PSA and [facility] Patient Education Prostate Cancer Screening Documentation recorded by the doreen Hammonds accurately reflects the services(s) I performed and decisions made by me. Authenticated by Theresa Arriola PA-C on 04/11/2023 13:13:13. I, Carissa Hammonds, personally scribed for Theresa Arriola PA-C on 04/11/2023 12:32:30. . Problem List/Past Medical History Ongoing Arthritis BPH with urinary obstruction Chronic prostatitis Elevated PSA Feeling of incomplete bladder emptying Gastroesophageal reflux Hesitancy HTN (hypertension) Hyperlipidemia Nocturia Smoker Varicosities of leg Weak urine stream Historical No qualifying data Procedure/Surgical History Transrectal biopsy of prostate using ultrasound (US) guidance (04/07/2020), Transrectal biopsy of prostate using ultrasound (US) guidance (08/12/2015), Hernia repair, Tonsillectomy. Medications alfuzosin 10 mg ER Tab, 10 mg= 1 tab(s), Oral, Daily, 5 refills carvedilol 6.25 mg Tab, 6.25 mg= 1 tab(s), Oral, BID lisinopril 40 mg Tab, Oral, Daily Allergies Cephalexin Monohydrate (Unknown) penicillins (Unknown) Social History Alcohol 1-2 times per month, 03/22/2019 Substance Abuse - Denies Substance Abuse, 03/22/2019 Tobacco Former smoker, quit more than 30 days ago Tobacco Use:. Never Smokeless Tobacco Use:. Cigarettes, Stopped age 66 Years. Household tobacco concerns: No. Yes, 04/11/2023 Family History Diabetes mellitus type 2: Mother. Heart disease: Mother and Father. Hypertension: Mother and Father. Stroke: Mother. Immunizations Vaccine Date Status influenza virus vaccine, inactivated 02/24/2022 Recorded SARS-CoV-2 (COVID-19) mRNA-1273 vaccine 09/01/2021 Recorded pneumococcal 13-valent vaccine 06/26/2021 Recorded SARS-CoV-2 (COVID-19) Ad26 vaccine 09/02/2020 Recorded Normal [facility] Comment on above: Result Comment: Elec tronically Signed By: THERESA ARRIOLA PA-C\.br\Date and Time Signed: 04/11/23 13:13 EDT\.br\Electronically Co-Signed By: Carissa Hammondsbr\Date and Time Co-Signed: 04/11/23 12:33 EDT RAD - MRI Reporton 3 RAD - MRI Report [id number] Normal [facility] Creatinine (Bld) [Mass/Vol]O rdered By: Theresa Arriola on 04-03-2023 Creatinine [Mass/Vol] 1.4 mg/dL 0.6-1.3 [facility] Comment on above: ER/ESD physician is notified/shown all ISTAT results.Critical values may be confirmed by laboratory testing ifdeemed necessary by ER attending doctor. ISTAT XRay CREon 04-03-2023 Creatinine [Mass/Vol] 1.4 mg/dL High 0.6-1.3 [facility] Comment on above: Result Comment: ER/E SD physician is notified/shown all ISTAT results. Critical values may be confirmed by laboratory testing if deemed necessary by ER attending doctor. Performed By: #### I SCRE #### [address] ISTAT GFR 55.088 Normal [facility] Comment on above: Result Comment: PERF ORMED BY: [place] [address] PATHOLOGIST LACQUERER SARAH BETH SILVEIRA M.D. Performed By: #### I SCRE #### [address] MR prostate wo/w conon 04-03 MR prostate wo/w con [facility] Main [place] [address] [place] [address] MRI Report Signed Patient: Michael Killian MR#: [id number] : 1955 Acct:[id number] Age/Sex: 68 / M ADM Date: 04/03/23 Loc: Room: Type: [facility] Attending Dr: Theresa Arriola PA-C Copies to: Theresa Arriola PA-C Ordering Provider: Theresa Arriola PA-C Date of Service: 04/03/23 MR/MR prostate wo/w con: N40.1 R97.20 EXAMINATION: MR prostate wo/w con HISTORY: Enlarged prostate. COMPARISON: NONE TECHNIQUE: Multiparametric imaging of the prostate gland was performed with IV contrast. FINDINGS: Prostate Dimensions: 5.9 x 4.4 x 6.8 cm. Prostate Volume: 92 mL Peripheral Zone: Heterogenous inT2 signal suggestive of prior prostatitis. No suspicious T2 or ADC map abnormality is identified to suggest prostate malignancy. Central/Transitional Zone: BPH changes. Seminal Vesicles: Unremarkable Neurovascular bundles: Unremarkable. Lymphadenopathy: Enlarged right pelvic sidewall and left external iliac lymph nodes, largest measuring 12 mm in short axis. Bladder: No focal lesion. Bowel: The visualized bowel is without acute abnormality. Peritoneal Cavity: Trace free fluid. Bones: No suspicious bony lesion. MR/MR prostate wo/w con IMPRESSION: No definitive MRI evidence of prostate malignancy. BPH changes. Enlarged right pelvic sidewall and left external iliac lymph nodes. Finding is nonspecific. Metastatic disease from occult prostate malignancy cannot BE excluded. Impression dictated by: Leandro Cleary Jr., D.OReinier04/03/2023 1:40 PM Dictation Location: RADIO-PC-15 Transcribed By: PWS 04/03/23 1340 Dictated By: Leandro Cleary Jr DO 04/03/23 1334 Signed By: 04/03/23 1340 [facility] Lab Reportson 01-19-2023 Lab Reports [id number] D:127 Normal [facility] Screenson 12-21-2022 Screens [id number] :127 Normal [facility] Ambulatory Visit Summaryon 0 12-20-2022 Ambulatory Visit Summary MICHAEL KILLIAN :1955 Visit Date:12/20/2022 Ambulatory Visit Instructions Your Diagnosis Elevated PSA BPH with urinary obstruction Tests Performed Urnls Dip Stick Auto w/o Microscopy POC 27285 MRI Pelvis (Soft Tissue) w/ + w/o contrast -- Results Pending -- Please visit your patient portal for your results or contact your primary care physician. Your Care Team Attending Physician - THERESA ARRIOLA PA-C Primary Care Physician - GIO JASSO DO This Is Your Medications List Contact prescribing physician if questions or concerns alfuzosin (alfuzosin 10 mg ER Tab) carvedilol (carvedilol 6.25 mg Tab) lisinopril (lisinopril 40 mg Tab) Procedures Performed Transrectal biopsy of prostate using ultrasound (US) guidance (04/07/2020), Transrectal biopsy of prostate using ultrasound (US) guidance (08/12/2015), Hernia repair, Tonsillectomy. Discharge Vitals Heart Rate (Peripheral) 70 Respiratory Rate 16 Blood Pressure 140/80 Height 180 cm Height 71 in Weight 102.5 kg Weight 225.5 lb BMI 31.64 What to do next You Need to Schedule the Following Appointments Follow Up with FLAKO ELLIOTT, [place] When: Comments: Sched [facility] and MRI of Prostate. Where: [address] [place] [address] Medications What How Much When Why Instructions Unchanged alfuzosin (alfuzosin 10 mg ER Tab) 1 Tablets By Mouth Every day BPH with urinary obstruction Elevated PSA Contact prescribing physician if questions or concerns Unchanged carvedilol (carvedilol 6.25 mg Tab) 1 Tablets By Mouth 2 times a day Contact prescribing physician if questions or concerns Unchanged lisinopril (lisinopril 40 mg Tab) By Mouth Every day Contact prescribing physician if questions or concerns Test Results Urnls Dip Stick Auto w/o Microscopy POC 18018 (12/20/2022) Bilirubin Urine Dipstick - Negative Blood Urine Dipstick - Negative Glucose Urine Dipstick - Negative Ketones Urine Dipstick - Negative Leukocytes Urine Dipstick - Negative Nitrite Urine Dipstick - Negative Protein Urine Dipstick - Negative Specific [place] Urine Dipstick - 1.010 Urine Appearance Urine Dipstick - Clear Urine Color Urine Dipstick - Yellow Urobilinogen Urine Dipstick - Normal 0.2-1 EU/dl pH Urine Dipstick - 5.5 Allergies Cephalexin Monohydrate (Unknown) penicillins (Unknown) Problems Ongoing - Any problem that you are currently receiving treatment for. Arthritis BPH with urinary obstruction Chronic prostatitis Elevated PSA Feeling of incomplete bladder emptying Gastroesophageal reflux Hesitancy HTN (hypertension) Hyperlipidemia Nocturia Smoker Varicosities of leg Weak urine stream Education Materials Prostate Cancer Screening Prostate cancer screening is testing that is done to check for the presence of prostate cancer in men. The prostate gland is a walnut-sized gland that is located below the bladder and in front of the rectum in males. The function of the prostate is to add fluid to semen during ejaculation. Prostate cancer is one of the most common types of cancer in men. Who should have prostate cancer screening? Screening recommendations vary based on age and other risk factors, as well as between the professional organizations who make the recommendations. In general, screening is recommended if: ? You are age 50 to 70 and have an average risk for prostate cancer. You should talk with your health care provider about your need for screening and how often screening should be done. Because most prostate cancers are slow growing and will not cause , screening in this age group is generally reserved for men who have a 10- to 15-year life expectancy. ? You are younger than age 50, and you have these risk factors: ? Having a father, brother, or uncle who has been diagnosed with prostate cancer. The risk is higher if your family member's cancer occurred at an early age or if you have multiple family members with prostate cancer at an early age. ? Being a male who is Black or is of [place] or sub-Saharan descent. In general, screening is not recommended if: ? You are younger than age 40. ? You are between the ages of 40 and 49 and you have no risk factors. ? You are 70 years of age or older. At this age, the risks that screening can cause are greater than the benefits that it may provide. If you are at high risk for prostate cancer, your health care provider may recommend that you have screenings more often or that you start screening at a younger age. How is screening for prostate cancer done? The recommended prostate cancer screening test is a blood test called the prostate-specific antigen (PSA) test. PSA is a protein that is made in the prostate. As you age, your prostate naturally produces more PSA. Abnormally high PSA levels may be caused by: ? Prostate cancer. ? An enlar (more content not included)... Normal [facility] Patient Educationon 12-21-19 Patient Education Oncology Prostate Cancer Screening Prostate cancer screening is testing that is done to check for the presence of prostate cancer in men. The prostate gland is a walnut-sized gland that is located below the bladder and in front of the rectum in males. The function of the prostate is to add fluid to semen during ejaculation. Prostate cancer is one of the most common types of cancer in men. Who should have prostate cancer screening? Screening recommendations vary based on age and other risk factors, as well as between the professional organizations who make the recommendations. In general, screening is recommended if: ? You are age 50 to 70 and have an average risk for prostate cancer. You should talk with your health care provider about your need for screening and how often screening should be done. Because most prostate cancers are slow growing and will not cause , screening in this age group is generally reserved for men who have a 10- to 15-year life expectancy. ? You are younger than age 50, and you have these risk factors: ? Having a father, brother, or uncle who has been diagnosed with prostate cancer. The risk is higher if your family member's cancer occurred at an early age or if you have multiple family members with prostate cancer at an early age. ? Being a male who is Black or is of [place] or sub-Saharan descent. In general, screening is not recommended if: ? You are younger than age 40. ? You are between the ages of 40 and 49 and you have no risk factors. ? You are 70 years of age or older. At this age, the risks that screening can cause are greater than the benefits that it may provide. If you are at high risk for prostate cancer, your health care provider may recommend that you have screenings more often or that you start screening at a younger age. How is screening for prostate cancer done? The recommended prostate cancer screening test is a blood test called the prostate-specific antigen (PSA) test. PSA is a protein that is made in the prostate. As you age, your prostate naturally produces more PSA. Abnormally high PSA levels may be caused by: ? Prostate cancer. ? An enlarged prostate that is not caused by cancer (benign prostatic hyperplasia, or BPH). This condition is very common in older men. ? A prostate gland infection (prostatitis) or urinary tract infection. ? Certain medicines such as male hormones (like testosterone) or other medicines that raise testosterone levels. A rectal exam may be done as part of prostate cancer screening to help provide information about the size of your prostate gland. When a rectal exam is performed, it should be done after the PSA level is drawn to avoid any effect on the results. Depending on the PSA results, you may need more tests, such as: ? A physical exam to check the size of your prostate gland, if not done as part of screening. ? Blood and imaging tests. ? A procedure to remove tissue samples from your prostate gland for testing (biopsy). This is the only way to know for certain if you have prostate cancer. What are the benefits of prostate cancer screening? ? Screening can help to identify cancer at an early stage, before symptoms start and when the cancer can be treated more easily. ? There is a small chance that screening may lower your risk of dying from prostate cancer. The chance is small because prostate cancer is a slow-growing cancer, and most men with prostate cancer from a different cause. What are the risks of prostate cancer screening? The main risk of prostate cancer screening is diagnosing and treating prostate cancer that would never have caused any symptoms or problems. This is called overdiagnosisand overtreatment. PSA screening cannot tell you if your PSA is high due to cancer or a different cause. A prostate biopsy is the only procedure to diagnose prostate cancer. Even the results of a biopsy may not tell you if your cancer needs to be treated. Slow-growing prostate cancer may not need any treatment other than monitoring, so diagnosing and treating it may cause unnecessary stress or other side effects. Questions to ask your health care provider ? When should I start prostate cancer screening? ? What is my risk for prostate cancer? ? How often do I need screening? ? What type of screening tests do I need? ? How do I get my test results? ? What do my results mean? ? Do I need treatment? Where to find more information ? The [place] [employer]: www.cancer.org ? [place] [employer]: www.auanet.org Contact a health care provider if: ? You have difficulty urinating. ? You have pain when you urinate or ejaculate. ? You have blood in your urine or semen. ? You have pain in your back or in the area of your prostate. Summary ? Prostate cancer is a common type of cancer in men. The prostate gland is located below the bladder and in front of the rectum. This gland adds flu (more content not included)... 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 DX: Elevated PSA & BPH *Alfuzosin 10mg QD therapy. PSA 12/12/22- 6.56 IPSS 16 Denies pain/burning and blood in urine. Occasional hesitancy and straining. Intermittent stream at times. Feels empty most of the time. Denies leaking. Gets up 1-3x/night to void. Q2hrs during the day. Symptoms are same compared with Flomax therapy. Maybe a little better with Flomax. History of Present Illness staff HPI reviewed and agree. Review of Systems PHQ Score Initial Depression Screen Score: 0 no fever, chills, malaise, myalgia. no rash/lesions. no chest pain, palpitations, or SOB. no abdominal pain, nausea, vomiting. no unilateral calf swelling, redness, pain Physical Exam Vitals & Measurements HR: 70(Peripheral) RR: 16 BP: 140/80 HT: 71 in HT: 180 cm WT: 102.5 kg WT: 225.5 lb BMI: 31.64 General: nontoxic, NAD Mouth: moist mucosa Lungs: normal respiratory effort Cardio: regular rate, good distal perfusion Abdomen: nondistended, no suprapubic distention or tenderness, no CVA tenderness Neurologic: Grossly normal Skin: No rashes or suspicious lesions Assessment/Plan 1. Elevated PSA (R97.20: Elevated prostate specific antigen [PSA]) S/p neg TRUS BX Mar 2020 and 2015. PSA 01/2017 - 3.93 01/2018 - 3.84 01/2019 - 4.27 02/2020 - 5.32 09/2020 - 5.87 10/12/21 - 5.5 & 24.7% 12/12/22 - 6.56 I discussed the pros and cons of PSA with the patient today. The various causes of PSA elevation were outlined, including prostate cancer, prostate enlargement, infection of the prostate, inflammation without infection, as well as prostate manipulation. The options regarding this PSA elevation, including prostate biopsy versus close monitoring, versus obtaining an MRI of the prostate were discussed. The patient has decided upon [facility] and prostate MRI. Pt retires end of December. Would like to wait until insurance coverage verified before scheduling these tests. Will need o.v. w me a few weeks after to review results and next steps (fusion bx vs continud PSA monitoring). Ordered: MRI Pelvis (Soft Tissue) w/ + w/o contrast 2. BPH with urinary obstruction (N40.1: Benign prostatic hyperplasia with lower urinary tract symptoms) Pt denies pain/burning and blood in urine. Pt states he has occasional hesitancy and straining, intermittent stream at times, feels empty most of the time. Pt denies leaking. Pt states he gets up 1-3x/night to void and voids Q2hrs during the day. UA today is negative for blood and infection. IPSS 16, QoL 3 Pt is currently taking Alfuzosin 10 mg ER Tab. Pt states his symptoms are the same as they were with Flomax therapy, maybe a little better. We discussed current dose and optional changes: adding an additional agent such as finasteride/dutasteride I discussed with the patient the different surgical treatment options for bladder outlet obstruction including TURP, Rezum, and Urolift. Discussed long-term risks of GIVENS. Pt agrees to proceed with cysto to eval if he's a candidate for bladder outlet procedure. We will schedule this after we have completed evaluation for elevated PSA (see #1) Ordered: MRI Pelvis (Soft Tissue) w/ + w/o contrast Urnls Dip Stick Auto w/o Microscopy POC [id number] Follow-up With When Contact Information FLAKO ELLIOTT, THERESA [place], URL [phone] [place] [address] Additional Instructions: Sched Select MDX and MRI of Prostate. Patient Education Prostate Cancer Screening Documentation recorded by the scribfuad Padilla accurately reflects the services(s) I performed and decisions made by me. Authenticated by Theresa Arriola PA-C on 12/20/2022 10:54:20. I, Nevaeh Padilla, personally scribed for Theresa Arriloa PA-C on 12/20/2022 10:44:12. . Problem List/Past Medical History Ongoing Arthritis BPH with urinary obstruction Chronic prostatitis Elevated PSA Feeling of incomplete bladder emptying Gastroesophageal reflux Hesitancy HTN (hypertension) Hyperlipidemia Nocturia Smoker Varicosities of leg Weak urine stream Historical No qualifying data Procedure/Surgical History Transrectal biopsy of prostate using ultrasound (US) guidance (04/07/2020), Transrectal biopsy of prostate using ultrasound (US) guidance (08/12/2015), Hernia repair, Tonsillectomy. Medications alfuzosin 10 mg ER Tab, 10 mg= 1 tab(s), Oral, Daily, 5 refills carvedilol 6.25 mg Tab, 6.25 mg= 1 tab(s), Oral, BID lisinopril 40 mg Tab, Oral, Daily Allergies Cephalexin Monohydrate (Unknown) penicillins (Unknown) Social History Alcohol 1-2 times per month, 03/22/2019 Substance Abuse - Denies Substance Abuse, 03/22/2019 Tobacco Former smoker, quit more than 30 days ago Tobacco Use:. Never Smokeless Tobacco Use:. Cigarettes, Stopped age 66 Years. Household tobacco concerns: No. (more content not included)... Normal [facility] Comment on above: Result Comment: Elec tronically Signed By: FLAKO ELLIOTT, THERESA [email or web address]\Date and Time Signed: 12/20/22 11:01 EDT PROF 14(COMP METB)on 023 Albumin [Mass/Vol] 3.9 g/dL Normal 3.4-5.0 [facility] Comment on above: Performed By: #### B MP #### [facility] [address] [place] [address] Dr. Duy Gallegos Albumin/Globulin [Mass ratio] 1.1 {ratio} Normal [facility] Comment on above: Performed By: #### B MP #### [facility] [address] [place] [address] Dr. Duy Gallegos ALP [Catalytic activity/Vol] 70 U/L Normal 46-116 [facility] Comment on above: Performed By: #### B MP #### [facility] [address] [place] [address] Dr. Duy Gallegos ALT [Catalytic activity/Vol] 26 U/L Normal 16-63 [facility] Comment on above: Performed By: #### B MP #### [facility] [address] [place] [address] Dr. Duy Gallegos Anion gap [Moles/Vol] 13.1 mmol/L Normal [facility] Comment on above: Performed By: #### B MP #### [facility] [address] [place] [address] Dr. Duy Gallegos AST [Catalytic activity/Vol] 17 U/L Normal 15-37 [facility] Comment on above: Performed By: #### B MP #### [facility] [address] [place] [address] Dr. Duy Gallegos Bilirubin [Mass/Vol] 0.6 mg/dL Normal 0.2-1.0 [facility] Comment on above: Performed By: #### B MP #### [facility] [address] [place] [address] Dr. Duy Gallegos Calcium [Mass/Vol] 9.0 mg/dL Normal 8.5-10.1 [facility] Comment on above: Performed By: #### B MP #### [facility] [address] [address] [address] Duy Gallegos Chloride [Moles/Vol] 106 mmol/L Normal 98-107 [facility] Comment on above: Performed By: #### B MP #### [facility] [address] [place] [address] Dr. Duy Gallegos CO2 [Moles/Vol] 28.5 mmol/L Normal 21.0-32.0 [facility] Comment on above: Performed By: #### B MP #### [facility] [address] [place] [address] Dr. Duy Gallegos Creatinine [Mass/Vol] 1.22 mg/dL Normal 0.70-1.30 [facility] Comment on above: Performed By: #### B MP #### [facility] [address] [place] [address] Dr. Duy Gallegos EGFR-AF KENYAN >60 Normal >=60 [facility] Comment on above: Performed By: #### B MP #### [facility] [address] [place] [address] Dr. Duy Gallegos EGFR-NON AF KENYAN 59 mL/min/1.73m2 Critically low >=60 [facility] Comment on above: Performed By: #### B MP #### [facility] [address] [place] [address] Dr. Duy Gallegos Globulin (S) [Mass/Vol] 3.7 g/dL Normal [facility] Comment on above: Performed By: #### B MP #### [facility] [address] [place] [address] Dr. Duy Gallegos Glucose [Mass/Vol] 113 mg/dL Critically high 74-106 [facility] Comment on above: Performed By: #### B MP #### [facility] [address] [address] [address] Duy Gallegos Potassium [Moles/Vol] 4.6 mmol/L Normal 3.5-5.1 [facility] Comment on above: Performed By: #### B MP #### [facility] [address] [address] [address] Duy Gallegos Protein [Mass/Vol] 7.6 g/dL Normal 6.4-8.2 [facility] Comment on above: Performed By: #### B MP #### [facility] [address] [address] [address] Duy Gallegos Sodium [Moles/Vol] 143 mmol/L Normal 136-145 [facility] Comment on above: Performed By: #### B MP #### [facility] [address] [address] [address] Duy Gallegos Urea nitrogen [Mass/Vol] 12.0 mg/dL Normal 7.0-18.0 [facility] Comment on above: Performed By: #### B MP #### [facility] [address] [address] [address] Duy Gallegos Urea nitrogen/Creatinine [Mass ratio] 9.8 mg/mg Normal [facility] Comment on above: Performed By: #### B MP #### [facility] [id number] Duy Gallegos XR CHEST 2 Von 11-07-2022 XR CHEST 2 V EXAM: XR CHEST 2 V HISTORY: Chronic obstructive pulmonary disease with acute lower respiratory infection COMPARISON: None. TECHNIQUE: PA and lateral views of the chest. FINDINGS: The cardiomediastinal silhouette is normal. No focal consolidation is identified. There is no pneumothorax. No pleural effusion is noted. The osseous structures are intact. IMPRESSION: No acute cardiopulmonary process. Electronically authenticated by: LIDYA VALE Date: 2022-11-07 09:16 Normal [facility] ital CULTURE BLOODon 08-30-2022 Microscopic examination of blood, culture Culture Observations: Positive blood culture. Aerobic & Anaerobic bottles. BCID=Staphylococcus species Isolate 1 Staphylococcus capitis Growth of ORGANISM 1 Staphylococcus capitis ANTIBIOTIC M.I.C RX STATUS Beta-Lactamase Pos POS F Cefoxitin Screen Neg NEG F Benzylpenicillin 0.25 R F Oxacillin <=0.25 S F Gentamicin <=0.5 S F Ciprofloxacin <=0.5 S F Levofloxacin <=0.12 S F Inducible Clindamycin Resistance Neg NEG F Erythromycin <=0.25 S F Clindamycin <=0.25 S F Quinupristin/Dalfopristin 0.5 S F Linezolid 2 S F Vancomycin <=0.5 S F Tetracycline <=1 S F Rifampicin <=0.5 S F Trimethoprim/Sulfamethoxazole <=10 S F Normal [facility] Comment on above: Performed By: #### B MP #### [facility] [address] [place] [address] Dr. Duy Gallegos HEPATITIS PANEL, ACUTEon HBsAg Screen Negative Normal Negative [facility] Comment on above: Performed By: #### C BC #### [facility] [address] [place] [address] Dr. Duy Gallegos HCV AB Non-Reactive Normal Non Reactive [facility] Comment on above: Performed By: #### C BC #### [facility] [address] [place] [address] Dr. Duy Gallegos Hep A Ab, IgM Negative Normal Negative [facility] Comment on above: Performed By: #### C BC #### [facility] [address] [place] [address] Dr. Duy Gallegos Hep B Core Ab, IgM Negative Normal Negative [facility] Comment on above: Performed By: #### C BC #### [facility] [address] [place] [address] Dr. Duy Gallegos Interpretation: Comment Normal [facility] Comment on above: Result Comment: Not infected with HCV unless early or acute infection is suspected (which may be delayed in an immunocompromised individual), or other evidence exists to indicate HCV infection. Performed By: #### C BC #### [facility] [address] [place] [address] Dr. Duy Gallegos CBC W MANUAL DIFFon 08-29-19 23 ATYPICAL LYMPH # Normal [facility] Comment on above: Performed By: #### B MP #### [facility] [address] [place] [address] Dr. Duy Gallegos ATYPICAL LYMPH % Normal [facility] Comment on above: Performed By: #### B MP #### [facility] [address] [place] [address] Dr. Duy Gallegos BAND # 0.0 103/ul Normal 0.0-0.3 The [facility] Comment on above: Performed By: #### B MP #### [facility] [address] [place] [address] Dr. Duy Gallegos BAND % 0 % Normal 0-5 The [facility] Comment on above: Performed By: #### B MP #### [facility] [address] [place] [address] Dr. Duy Gallegos BASOM # 0.00 103/ul Normal 0.00-0.10 [facility] Comment on above: Performed By: #### B MP #### [facility] [address] [place] [address] Dr. Duy Gallegos BASOM % 0.0 % Critically low 0.2-2.0 [facility] Comment on above: Performed By: #### B MP #### [facility] [address] [place] [address] Dr. Duy Gallegos BLAST # Normal [facility] Comment on above: Performed By: #### B MP #### [facility] [address] [place] [address] Dr. Duy Gallegos BLAST % Normal [facility] Comment on above: Performed By: #### B MP #### [facility] [address] [place] [address] Dr. Duy Gallegos CORRECTED WBC Normal 4.0-11.0 [facility] Comment on above: Performed By: #### B MP #### [facility] [address] [place] [address] Dr. Duy Gallegos EOS # 0.00 103/ul Normal 0.00-0.70 [facility] Comment on above: Performed By: #### B MP #### [facility] [address] [address] [address] Duy Gallegos EOS% 0.0 % Critically low 0.9-7.0 [facility] Comment on above: Performed By: #### B MP #### [facility] [address] [address] [address] Duy Gallegos HCT 36.8 % Critically low 42.0-54.0 [facility] Comment on above: Performed By: #### B MP #### [facility] [address] [address] [address] Duy Gallegos HGB 12.0 g/dl Critically low 14.0-18.0 [facility] Comment on above: Performed By: #### B MP #### [facility] [address] [place] [address] Dr. Duy Gallegos LYMPHM # 0.47 103/ul Critically low 1.20-3.80 [facility] Comment on above: Performed By: #### B MP #### [facility] [address] [address] [address] Duy Gallegos LYMPHM% 6.0 % Critically low 20.5-60.0 [facility] Comment on above: Performed By: #### B MP #### [facility] [address] [address] [address] Duy Gallegos MCH 28.4 pg Normal 25.9-34.0 The [facility] Comment on above: Performed By: #### B MP #### [facility] [address] [address] [address] Duy Gallegos MCHC 32.6 g/dl Normal 29.9-35.2 The [facility] Comment on above: Performed By: #### B MP #### [facility] [address] [address] [address] Duy Gallegos MCV 87.0 fL Normal 80.0-94.0 [facility] Comment on above: Performed By: #### B MP #### [facility] [address] [place] [address] Dr. Duy Gallegos METAMYELOCYTE # Normal [facility] Comment on above: Performed By: #### B MP #### [facility] [address] [place] [address] Dr. Duy Gallegos METAMYELOCYTE % Normal [facility] Comment on above: Performed By: #### B MP #### [facility] [address] [place] [address] Dr. Duy Gallegos MONOM# 0.40 103/ul Normal 0.30-0.80 [facility] Comment on above: Performed By: #### B MP #### [facility] [address] [place] [address] Dr. Duy Gallegos MONOM% 5.0 % Normal 1.7-12.0 [facility] Comment on above: Performed By: #### B MP #### [facility] [address] [place] [address] Dr. Duy Gallegos MPV 10.2 fL Normal 9.5-13.5 [facility] Comment on above: Performed By: #### B MP #### [facility] [address] [place] [address] Dr. Duy Gallegos MYELOCYTE # Normal [facility] Comment on above: Performed By: #### B MP #### [facility] [address] [place] [address] Dr. Duy Gallegos MYELOCYTE % Normal [facility] Comment on above: Performed By: #### B MP #### [facility] [address] [place] [address] Dr. Duy Gallegos NRBC Normal [facility] Comment on above: Performed By: #### B MP #### [facility] [address] [place] [address] Dr. Duy Gallegos PLT 205 103/ul Normal 150-450 [facility] Comment on above: Performed By: #### B MP #### [facility] [address] [place] [address] Dr. Duy Gallegos RBC 4.23 106/ul Critically low 4.70-6.10 [facility] Comment on above: Performed By: #### B MP #### [facility] [address] [place] [address] Dr. Duy Gallegos RDW 13.3 % Normal 11.0-15.0 [facility] Comment on above: Performed By: #### B MP #### [facility] [address] [place] [address] Dr. Duy Gallegos SEG # 7.03 103/ul Critically high 1.40-6.50 [facility] Comment on above: Performed By: #### B MP #### [facility] [address] [place] [address] Dr. Duy Gallegos SEG % 89.0 % Critically high 43.0-75.0 [facility] Comment on above: Performed By: #### B MP #### [facility] [address] [place] [address] Dr. Duy Gallegos WBC 7.9 103/ul Normal 4.0-11.0 [facility] Comment on above: Performed By: #### B MP #### [facility] [address] [place] [address] Dr. Duy Gallegos PROF 14(COMP METB)on 023 Albumin [Mass/Vol] 3.4 g/dL Normal 3.4-5.0 [facility] Comment on above: Performed By: #### C BC #### [facility] [address] [place] [address] Dr. Duy Gallegos Albumin/Globulin [Mass ratio] 1.0 {ratio} Normal [facility] Comment on above: Performed By: #### C BC #### [facility] [address] [place] [address] Dr. Duy Gallegos ALP [Catalytic activity/Vol] 73 U/L Normal 46-116 [facility] Comment on above: Performed By: #### C BC #### [facility] [address] [place] [address] Dr. Duy Gallegos ALT [Catalytic activity/Vol] 66 U/L Critically high 16 -63 [facility] Comment on above: Performed By: #### C BC #### [facility] [address] [address] [address] Duy Gallegos Anion gap [Moles/Vol] 10.6 mmol/L Normal [facility] Comment on above: Performed By: #### C BC #### [facility] [address] [address] [address] Duy Gallegos AST [Catalytic activity/Vol] 26 U/L Normal 15-37 [facility] Comment on above: Performed By: #### C BC #### [facility] [address] [address] [address] Duy Gallegos Bilirubin [Mass/Vol] 0.3 mg/dL Normal 0.2-1.0 [facility] Comment on above: Performed By: #### C BC #### [facility] [address] [address] [address] Duy Gallegos Calcium [Mass/Vol] 8.9 mg/dL Normal 8.5-10.1 [facility] Comment on above: Performed By: #### C BC #### [facility] [address] [address] [address] Duy Gallegos Chloride [Moles/Vol] 106 mmol/L Normal 98-107 [facility] Comment on above: Performed By: #### C BC #### [facility] [address] [address] [address] Duy Gallegos CO2 [Moles/Vol] 29.3 mmol/L Normal 21.0-32.0 [facility] Comment on above: Performed By: #### C BC #### [facility] [address] [address] [address] Duy Gallegos Creatinine [Mass/Vol] 1.12 mg/dL Normal 0.70-1.30 [facility] Comment on above: Performed By: #### C BC #### [facility] [address] [address] [address] Duy Gallegos EGFR-AF KENYAN >60 Normal >=60 [facility] Comment on above: Performed By: #### C BC #### [facility] [address] [address] [address] Duy Gallegos EGFR-NON AF KENYAN >60 Normal >=60 [facility] Comment on above: Performed By: #### C BC #### [facility] [address] [address] [address] Duy Gallegos Globulin (S) [Mass/Vol] 3.3 g/dL Normal [facility] Comment on above: Performed By: #### C BC #### [facility] [address] [address] [address] Duy Gallegos Glucose [Mass/Vol] 157 mg/dL Critically high 74-106 [facility] Comment on above: Performed By: #### C BC #### [facility] [address] [place] [address] Dr. Duy Gallegos Potassium [Moles/Vol] 4.9 mmol/L Normal 3.5-5.1 [facility] Comment on above: Performed By: #### C BC #### [facility] [address] [place] [address] Dr. Duy Gallegos Protein [Mass/Vol] 6.7 g/dL Normal 6.4-8.2 [facility] Comment on above: Performed By: #### C BC #### [facility] [address] [place] [address] Dr. Duy Gallegos Sodium [Moles/Vol] 141 mmol/L Normal 136-145 [facility] Comment on above: Performed By: #### C BC #### [facility] [address] [place] [address] Dr. Duy Gallegos Urea nitrogen [Mass/Vol] 22.0 mg/dL Critically high 7.0-18 .0 [facility] Comment on above: Performed By: #### C BC #### [facility] [address] [place] [address] Dr. Duy Gallegos Urea nitrogen/Creatinine [Mass ratio] 19.6 mg/mg Normal [facility] Comment on above: Performed By: #### C BC #### [facility] [address] [address] [address] Duy Gallegos MAGNESIUMon 08-27-2022 Magnesium [Mass/Vol] 2.0 mg/dL Normal 1.8-2.4 [facility] Comment on above: Performed By: #### C MP, MG #### [facility] [address] [place] [address] Dr. Duy Gallegos PROF 14(COMP METB)on 023 Albumin [Mass/Vol] 3.6 g/dL Normal 3.4-5.0 [facility] Comment on above: Performed By: #### C MP, MG #### [facility] [address] [place] [address] Dr. Duy Gallegos Albumin/Globulin [Mass ratio] 0.9 {ratio} Normal [facility] Comment on above: Performed By: #### C MP, MG #### [facility] [address] [place] [address] Dr. Duy Gallegos ALP [Catalytic activity/Vol] 79 U/L Normal 46-116 [facility] Comment on above: Performed By: #### C MP, MG #### [facility] [address] [place] [address] Dr. Duy Gallegos ALT [Catalytic activity/Vol] 86 U/L Critically high 16 -63 [facility] Comment on above: Performed By: #### C MP, MG #### [facility] [address] [place] [address] Dr. Duy Gallegos Anion gap [Moles/Vol] 14.3 mmol/L Normal [facility] Comment on above: Performed By: #### C MP, MG #### [facility] [address] [place] [address] Dr. Duy Gallegos AST [Catalytic activity/Vol] 38 U/L Critically high 15 -37 [facility] Comment on above: Performed By: #### C MP, MG #### [facility] [address] [place] [address] Dr. Duy Gallegos Bilirubin [Mass/Vol] 0.4 mg/dL Normal 0.2-1.0 [facility] Comment on above: Performed By: #### C MP, MG #### [facility] [address] [address] [address] Duy Gallegos Calcium [Mass/Vol] 9.3 mg/dL Normal 8.5-10.1 [facility] Comment on above: Performed By: #### C MP, MG #### [facility] [address] [place] [address] Dr. Duy Gallegos Chloride [Moles/Vol] 106 mmol/L Normal 98-107 [facility] Comment on above: Performed By: #### C MP, MG #### [facility] [address] [place] [address] Dr. Duy Gallegos CO2 [Moles/Vol] 27.1 mmol/L Normal 21.0-32.0 [facility] Comment on above: Performed By: #### C MP, MG #### [facility] [address] [place] [address] Dr. Duy Gallegos Creatinine [Mass/Vol] 1.17 mg/dL Normal 0.70-1.30 [facility] Comment on above: Performed By: #### C MP, MG #### [facility] [address] [place] [address] Dr. Duy Gallegos EGFR-AF KENYAN >60 Normal >=60 [facility] Comment on above: Performed By: #### C MP, MG #### [facility] [address] [place] [address] Dr. Duy Gallegos EGFR-NON AF KENYAN >60 Normal >=60 [facility] Comment on above: Performed By: #### C MP, MG #### [facility] [address] [place] [address] Dr. Duy Gallegos Globulin (S) [Mass/Vol] 3.8 g/dL Normal [facility] Comment on above: Performed By: #### C MP, MG #### [facility] [address] [place] [address] Dr. Duy Gallegos Glucose [Mass/Vol] 163 mg/dL Critically high 74-106 [facility] Comment on above: Performed By: #### C MP, MG #### [facility] [address] [address] [address] Duy Gallegos Potassium [Moles/Vol] 5.4 mmol/L Critically high 3.5-5.1 [facility] Comment on above: Performed By: #### C MP, MG #### [facility] [address] [address] [address] Duy Gallegos Protein [Mass/Vol] 7.4 g/dL Normal 6.4-8.2 [facility] Comment on above: Performed By: #### C MP, MG #### [facility] [address] [address] [address] Duy Gallegos Sodium [Moles/Vol] 142 mmol/L Normal 136-145 [facility] Comment on above: Performed By: #### C MP, MG #### [facility] [address] [place] [address] Dr. Duy Gallegos Urea nitrogen [Mass/Vol] 16.0 mg/dL Normal 7.0-18.0 [facility] Comment on above: Performed By: #### C MP, MG #### [facility] [address] [address] [address] Duy Gallegos Urea nitrogen/Creatinine [Mass ratio] 13.7 mg/mg Normal [facility] Comment on above: Performed By: #### C MP, MG #### [facility] [address] [address] [address] Duy Gallegos PROF CHEM 8 (BAS METB)on Anion gap [Moles/Vol] 15.1 mmol/L Normal [facility] Comment on above: Performed By: #### B MP #### [facility] [address] [address] [address] Duy Gallegos Calcium [Mass/Vol] 9.0 mg/dL Normal 8.5-10.1 [facility] Comment on above: Performed By: #### B MP #### [facility] [address] [address] [address] Duy Gallegos Chloride [Moles/Vol] 105 mmol/L Normal 98-107 [facility] Comment on above: Performed By: #### B MP #### [facility] [address] [address] [address] Duy Gallegos CO2 [Moles/Vol] 27.0 mmol/L Normal 21.0-32.0 [facility] Comment on above: Performed By: #### B MP #### [facility] [address] [address] [address] Duy Gallegos Creatinine [Mass/Vol] 1.20 mg/dL Normal 0.70-1.30 [facility] Comment on above: Performed By: #### B MP #### [facility] [address] [address] [address] Duy Gallegos EGFR-AF KENYAN >60 Normal >=60 [facility] Comment on above: Performed By: #### B MP #### [facility] [address] [address] [address] Duy Gallegos EGFR-NON AF KENYAN >60 Normal >=60 [facility] Comment on above: Performed By: #### B MP #### [facility] [address] [address] [address] Duy Gallegos Glucose [Mass/Vol] 155 mg/dL Critically high 74-106 [facility] Comment on above: Performed By: #### B MP #### [facility] [address] [address] [address] Duy Gallegos Potassium [Moles/Vol] 5.1 mmol/L Normal 3.5-5.1 [facility] Comment on above: Performed By: #### B MP #### [facility] [address] [address] [address] Duy Gallegos Sodium [Moles/Vol] 142 mmol/L Normal 136-145 [facility] Comment on above: Performed By: #### B MP #### [facility] [address] [address] [address] Duy Gallegos Urea nitrogen [Mass/Vol] 19.0 mg/dL Critically high 7.0-18 .0 [facility] Comment on above: Performed By: #### B MP #### [facility] [address] [address] [address] Duy Gallegos Urea nitrogen/Creatinine [Mass ratio] 15.8 mg/mg Normal [facility] Comment on above: Performed By: #### B MP #### [facility] [address] [address] [address] Duy Gallegos XR CHEST 2 Von 08-27-2022 XR CHEST 2 V EXAMINATION: XR CHES T 2 V, 08/27/2022 7:53 AM EST HISTORY: SHORTNESS OF BREATH COMPARISON: 12/28/2021 TECHNIQUE: Chest x-ray: Two views. FINDINGS: Increased interstitial markings in the right lower lobe which may represent an infiltrate. Blunting of the costophrenic angles bilaterally. Cardiomediastinal silhouette is unremarkable. Visualized osseous structures are unremarkable. IMPRESSION: Possible right lower lobe infiltrate. Electronically authenticated by: GRACIE DEAN Date: 2022-08-27 08:27 Normal The [facility] BLOOD CULTURE ID PANELon A. baumannii Not detected Normal NOT DETECTED The [facility] Comment on above: Performed By: #### C BC #### [facility] [address] [address] [address] Duy Gallegos Bacteriodes fragilis Not detected Normal NOT DETECTED [facility] Comment on above: Performed By: #### C BC #### [facility] [address] [place] [address] Dr. Duy Gallegos BCID CONTROLS PASSED Normal [facility] Comment on above: Performed By: #### C BC #### [facility] [address] [address] [address] Duy Gallegos BCIDBTHD BLOOD CULTURE BOTTLE INFORMATION Normal [facility] Comment on above: Performed By: #### C BC #### [facility] [address] [address] [address] Duy Gallegos BCIDHD1 ANTIMICROBIAL RESISTANCE GENES Normal [facility] Comment on above: Performed By: #### C BC #### [facility] [address] [place] [address] Dr. Duy Gallegos BCIDHD2 SEE BELOW Normal The [facility] Comment on above: Result Comment: Note : Antimicrobial resitance can occur via multiple mechanisms. A Not Detected result for the [employer] antomicrobial resistance gene assays does not indicate antimicrobial susceptibility. Subculturing is required for species identification and susceptibility testing of isolates. Performed By: #### C BC #### [facility] [address] [place] [address] Dr. Duy Gallegos BCIDHD3 Positive Normal The [facility] Comment on above: Performed By: #### C BC #### [facility] [address] [place] [address] Dr. Duy Gallegos BCIDHD4 Negative Normal The [facility] Comment on above: Performed By: #### C BC #### [facility] [address] [place] [address] Dr. Duy Gallegos BCIDHD5 YEAST Normal The [facility] Comment on above: Performed By: #### C BC #### [facility] [address] [place] [address] Dr. Duy Gallegos Bottle Set: Set 1 Normal [facility] Comment on above: Performed By: #### C BC #### [facility] [address] [place] [address] Dr. Duy Gallegos Bottle: Anaerobic Normal The [facility] Comment on above: Performed By: #### C BC #### [facility] [address] [place] [address] Dr. Duy Gallegos C. neoformans/gattii Not detected Normal NOT DETECTED [facility] Comment on above: Performed By: #### C BC #### [facility] [address] [place] [address] Dr. Duy Gallegos Gala albicans Not detected Normal NOT DETECTED [facility] Comment on above: Performed By: #### C BC #### [facility] [address] [place] [address] Dr. Duy Gallegos Gala auris Not detected Normal NOT DETECTED The [facility] Comment on above: Performed By: #### C BC #### [facility] [address] [place] [address] Dr. Duy Gallegos Gala glabrata Not detected Normal NOT DETECTED [facility] Comment on above: Performed By: #### C BC #### [facility] [address] [address] [address] Duy Gallegos Gala Krusei Not detected Normal NOT DETECTED [facility] Comment on above: Performed By: #### C BC #### [facility] [address] [place] [address] Dr. Duy Gallegos Gala Parapsilosis Not detected Normal NOT DETECTED [facility] Comment on above: Performed By: #### C BC #### [facility] [address] [address] [address] Duy Gallegos Gala Tropicalis Not detected Normal NOT DETECTED [facility] Comment on above: Performed By: #### C BC #### [facility] [address] [place] [address] Dr. Duy Gallegos CTX-M Resistant Gene Not Applicable Normal NOT DETECTE D [facility] Comment on above: Performed By: #### C BC #### [facility] [address] [place] [address] Dr. Duy Gallegos E. Cloacae complex Not detected Normal NOT DETECTED [facility] Comment on above: Performed By: #### C BC #### [facility] [address] [place] [address] Dr. Duy Gallegos E. faecalis Not detected Normal NOT DETECTED [facility] Comment on above: Performed By: #### C BC #### [facility] [address] [place] [address] Dr. Duy Gallegos E. faecium Not detected Normal NOT DETECTED [facility] Comment on above: Performed By: #### C BC #### [facility] [address] [place] [address] Dr. Duy Gallegos Enterobacteriaceae Not detected Normal NOT DETECTED [facility] Comment on above: Performed By: #### C BC #### [facility] [address] [place] [address] Dr. Duy Gallegos Escherichia coli Not detected Normal NOT DETECTED [facility] Comment on above: Performed By: #### C BC #### [facility] [address] [place] [address] Dr. Duy Gallegos H. influenzae Not detected Normal NOT DETECTED [facility] Comment on above: Performed By: #### C BC #### [facility] [address] [place] [address] Dr. Duy Gallegso IMP Resistant Gene Not Applicable Normal NOT DETECTED [facility] Comment on above: Performed By: #### C BC #### [facility] [address] [place] [address] Dr. Duy Gallegos K. oxytoca Not detected Normal NOT DETECTED [facility] Comment on above: Performed By: #### C BC #### [facility] [address] [place] [address] Dr. Duy Gallegos K. pneumoniae Not detected Normal NOT DETECTED [facility] Comment on above: Performed By: #### C BC #### [facility] [address] [place] [address] Dr. Duy Gallegos Klebsiella aerogenes Not detected Normal NOT DETECTED [facility] Comment on above: Performed By: #### C BC #### [facility] [address] [place] [address] Dr. Duy Gallegos KPC Resistant Gene Not Applicable Normal NOT DETECTED [facility] Comment on above: Performed By: #### C BC #### [facility] [address] [place] [address] Dr. Duy Gallegos List. monocytogenes Not detected Normal NOT DETECTED [facility] Comment on above: Performed By: #### C BC #### [facility] [address] [place] [address] Dr. Duy Gallegos Mcr-1 Resistant Gene Not Applicable Normal NOT DETECTE D [facility] Comment on above: Performed By: #### C BC #### [facility] [address] [place] [address] Dr. Duy Gallegos mecA/C Not Applicable Normal NOT DETECTED [facility] Comment on above: Performed By: #### C BC #### [facility] [address] [place] [address] Dr. Duy Gallegos mecA/C MREJ Not Applicable Normal NOT DETECTED [facility] Comment on above: Performed By: #### C BC #### [facility] [address] [place] [address] Dr. Duy Gallegos N. meningitidis Not detected Normal NOT DETECTED The [facility] Comment on above: Performed By: #### C BC #### [facility] [address] [place] [address] Dr. Duy Gallegos NDM Resistant Gene Not Applicable Normal NOT DETECTED [facility] Comment on above: Performed By: #### C BC #### [facility] [address] [place] [address] Dr. Duy Gallegos Oxa-48-like Not Applicable Normal NOT DETECTED [facility] Comment on above: Performed By: #### C BC #### [facility] [address] [place] [address] Dr. Duy Gallegos Proteus Not detected Normal NOT DETECTED [facility] Comment on above: Performed By: #### C BC #### [facility] [address] [place] [address] Dr. Duy Gallegos Pseud. aeruginosa Not detected Normal NOT DETECTED [facility] Comment on above: Performed By: #### C BC #### [facility] [address] [place] [address] Dr. Duy Gallegos S. maltophilia Not detected Normal NOT DETECTED [facility] Comment on above: Performed By: #### C BC #### [facility] [address] [place] [address] Dr. Duy Gallegos Salmonella Not detected Normal NOT DETECTED [facility] Comment on above: Performed By: #### C BC #### [facility] [address] [place] [address] Dr. Duy Gallegos Seratia marcescens Not detected Normal NOT DETECTED [facility] Comment on above: Performed By: #### C BC #### [facility] [address] [place] [address] Dr. Duy Gallegos Site: L a/c Normal The [facility] Comment on above: Performed By: #### C BC #### [facility] [address] [place] [address] Dr. Duy Gallegos Staph. aureus Not detected Normal NOT DETECTED [facility] Comment on above: Performed By: #### C BC #### [facility] [address] [place] [address] Dr. Duy Gallegos Staph. epidermidis Not detected Normal NOT DETECTED [facility] Comment on above: Performed By: #### C BC #### [facility] [address] [place] [address] Dr. Duy Gallegos Staph. lugdunensis Not detected Normal NOT DETECTED [facility] Comment on above: Performed By: #### C BC #### [facility] [address] [place] [address] Dr. Duy Gallegos Staphylococcus Detected Critically abnormal NOT DETECTED [facility] Comment on above: Performed By: #### C BC #### [facility] [address] [place] [address] Dr. Duy Gallegos Strep. agalactiae Not detected Normal NOT DETECTED [facility] Comment on above: Performed By: #### C BC #### [facility] [address] [place] [address] Dr. Duy Gallegos Strep. pneumoniae Not detected Normal NOT DETECTED [facility] Comment on above: Performed By: #### C BC #### [facility] [address] [place] [address] Dr. Duy Gallegos Strep. pyogenes Not detected Normal NOT DETECTED The [facility] Comment on above: Performed By: #### C BC #### [facility] [address] [place] [address] Dr. Dyu Gallegos Streptococcus Not detected Normal NOT DETECTED [facility] Comment on above: Performed By: #### C BC #### [facility] [address] [place] [address] Dr. Duy Gallegos Cullen/B Resist. Gene Not Applicable Normal NOT DETECTED [facility] Comment on above: Performed By: #### C BC #### [facility] [address] [place] [address] Dr. Duy Gallegos VIM Resistant Gene Not Applicable Normal NOT DETECTED [facility] Comment on above: Performed By: #### C BC #### [facility] [address] [place] [address] Dr. Duy Gallegos BLOOD GASES BTYon 08-26-2022 02 MODE NASAL CANNULA Normal [facility] Comment on above: Performed By: #### C BC #### [facility] [address] [place] [address] Dr. Duy Gallegos ALLENS TEST Positive [facility] Comment on above: Performed By: #### C BC #### [facility] [address] [place] [address] Dr. Duy Gallegos Base excess Calc (Bld) [Moles/Vol] -1.3000 mmol/L Normal -2.0-2.0 [facility] Comment on above: Performed By: #### C BC #### [facility] [address] [place] [address] Dr. Duy Gallegos BIPAP PRESSURE Normal [facility] Comment on above: Performed By: #### C BC #### [facility] [address] [place] [address] Dr. Duy Gallegos CPAP Normal The [facility] Comment on above: Performed By: #### C BC #### [facility] [address] [place] [address] Dr. Duy Gallegos FIO2 Normal The [facility] Comment on above: Performed By: #### C BC #### [facility] [address] [place] [address] Dr. Duy Gallegos HCO3 (Bld) [Moles/Vol] 24.5 mmol/L Normal 22.0-26.0 [facility] Comment on above: Performed By: #### C BC #### [facility] [address] [place] [address] Dr. Duy Gallegos LPM 2 Normal The [facility] Comment on above: Performed By: #### C BC #### [facility] [address] [place] [address] Dr. Duy Gallegos MINUTE VOLUME Normal [facility] Comment on above: Performed By: #### C BC #### [facility] [address] [place] [address] Dr. Duy Gallegos Oxygen (Bld) [Partial pressure] 64.3 mm[Hg] Critically low 80.0-100.0 [facility] Comment on above: Performed By: #### C BC #### [facility] [address] [place] [address] Dr. Duy Gallegos Oxygen saturation in Blood 92.0 % Critically low 95.0- 100.0 [facility] Comment on above: Performed By: #### C BC #### [facility] [address] [place] [address] Dr. Duy Gallegos PCO2 45.3 mmHg Critically high 35.0-45.0 [facility] Comment on above: Performed By: #### C BC #### [facility] [address] [place] [address] Dr. Duy Gallegos PEEP Normal The [facility] Comment on above: Performed By: #### C BC #### [facility] [address] [place] [address] Dr. Duy Gallegos pH (Bld) 7.341 [pH] Critically low 7.350-7.450 [facility] Comment on above: Performed By: #### C BC #### [facility] [address] [place] [address] Dr. Duy Gallegos PIP Normal The [facility] Comment on above: Performed By: #### C BC #### [facility] [address] [place] [address] Dr. Duy Gallegos PS Normal The [facility] Comment on above: Performed By: #### C BC #### [facility] [address] [place] [address] Dr. Duy Gallegos PUNCTURE SITE LR Normal [facility] Comment on above: Performed By: #### C BC #### [facility] [address] [place] [address] Dr. Duy Gallegos RATE Normal The [facility] Comment on above: Performed By: #### C BC #### [facility] [address] [place] [address] Dr. Duy Gallegos VENT MODE Normal The [facility] Comment on above: Performed By: #### C BC #### [facility] [address] [place] [address] Dr. Duy Gallegos VT Normal The [facility] Comment on above: Performed By: #### C BC #### [facility] [address] [place] [address] Dr. Duy Gallegos BNPon 08-26-2022 Natriuretic peptide B (Bld) [Mass/Vol] 2516.0 pg/mL Critically high <=900.0 The [facility] Comment on above: Performed By: #### B MP #### [facility] [address] [place] [address] Dr. Duy Gallegos CBC AUTO DIFFon 08-26-2022 BASO # 0.1 103/ul Normal 0.0-0.1 The [facility] Comment on above: Performed By: #### C BC #### [facility] [address] [place] [address] Dr. Duy Gallegos Basophils/100 WBC (Bld) 1.2 % Normal 0.2-2.0 [facility] Comment on above: Performed By: #### C BC #### [facility] [address] [place] [address] Dr. Duy Gallegos EO # 0.4 103/ul Normal 0.0-0.7 The [facility] Comment on above: Performed By: #### C BC #### [facility] [address] [place] [address] Dr. Duy Gallegos Eosinophils/100 WBC (Bld) 4.6 % Normal 0.9-7.0 [facility] Comment on above: Performed By: #### C BC #### [facility] [address] [place] [address] Dr. Duy Gallegos Erythrocyte distribution wid th (RBC) [Ratio] 13.2 % Normal 11.0-15.0 The [facility] Comment on above: Performed By: #### C BC #### [facility] [address] [place] [address] Dr. Duy Gallegos Hematocrit (Bld) [Volume fraction] 41.1 % Critically low 42.0-54.0 [facility] Comment on above: Performed By: #### C BC #### [facility] [address] [place] [address] Dr. Duy Gallegos Hemoglobin (Bld) [Mass/Vol] 13.8 g/dL Critically low 14.0 -18.0 [facility] Comment on above: Performed By: #### C BC #### [facility] [address] [place] [address] Dr. Duy Gallegos IG # 0.03 10e3/ul Normal 0.00-0.03 [facility] Comment on above: Performed By: #### C BC #### [facility] [address] [place] [address] Dr. Duy Gallegos IG % 0.4 % Normal 0.0-0.5 [facility] Comment on above: Performed By: #### C BC #### [facility] [address] [place] [address] Dr. Duy Gallegos LYMPH # 2.9 103/ul Normal 1.2-3.8 [facility] Comment on above: Performed By: #### C BC #### [facility] [address] [place] [address] Dr. Duy Gallegos Lymphocytes/100 WBC (Bld) 35.3 % Normal 20.5-60.0 [facility] Comment on above: Performed By: #### C BC #### [facility] [address] [place] [address] Dr. Duy Gallegos MANUAL DIFF REQ NO Normal [facility] Comment on above: Performed By: #### C BC #### [facility] [address] [place] [address] Dr. Duy Gallegos MCH (RBC) [Entitic mass] 28.9 pg Normal 25.9-34.0 [facility] Comment on above: Performed By: #### C BC #### [facility] [address] [place] [address] Dr. Duy Gallegos MCHC (RBC) [Mass/Vol] 33.6 g/dL Normal 29.9-35.2 [facility] Comment on above: Performed By: #### C BC #### [facility] [address] [place] [address] Dr. Duy Gallegos MCV (RBC) [Entitic vol] 86.2 fL Normal 80.0-94.0 [facility] Comment on above: Performed By: #### C BC #### [facility] [address] [place] [address] Dr. Duy Gallegos MONO # 0.6 103/ul Normal 0.3-0.8 [facility] Comment on above: Performed By: #### C BC #### [facility] [address] [place] [address] Dr. Duy Gallegos Monocytes/100 WBC (Bld) 7.1 % Normal 1.7-12.0 [facility] Comment on above: Performed By: #### C BC #### [facility] [address] [place] [address] Dr. Duy Gallegos NEUT # 4.2 103/ul Normal 1.4-6.5 The [facility] Comment on above: Performed By: #### C BC #### [facility] [address] [place] [address] Dr. Duy Gallegos Neutrophils/100 WBC (Bld) 51.4 % Normal 43.0-75.0 [facility] Comment on above: Performed By: #### C BC #### [facility] [address] [place] [address] Dr. Duy Gallegos Platelet mean volume (Bld) [ Entitic vol] 10.1 fL Normal 9.5-13.5 [facility] Comment on above: Performed By: #### C BC #### [facility] [address] [place] [address] Dr. Duy Gallegos PLT 264 103/ul Normal 150-450 The [facility] Comment on above: Performed By: #### C BC #### [facility] [address] [place], [place] [address] Dr. Duy Gallegos RBC 4.77 106/ul Normal 4.70-6.10 [facility] Comment on above: Performed By: #### C BC #### [facility] [address] [place] [address] [id number] [address] Duy Gallegos WBC 8.2 103/ul Normal 4.0-11.0 The [facility] Comment on above: Performed By: #### C BC #### [facility] [address] [place] [id number] Duy Gallegos CTA CHEST WO W CONon 023 CTA CHEST WO W CON EXAMINATION: CTA MICHAEL ST WO W CON HISTORY: Shortness of breath. COMPARISON: Prior chest x-ray 12/28/2021. TECHNIQUE: CT angiography of the pulmonary arteries following the administration of intravenous contrast. Coronal and sagittal MIP (maximum intensity projection) images were performed. Dose reduction techniques were achieved by using automated exposure control and/or adjustment of mA and/or kV according to patient size and/or use of iterative reconstruction technique. FINDINGS: No evidence of pulmonary arterial embolism. Small layering bilateral pleural effusions. Bilateral diffuse peribronchial thickening and prominence of the interstitium. Nonspecific mild diffuse groundglass attenuation bilaterally. Cardiac size is at the upper limits of normal. IMPRESSION: 1. No evidence of pulmonary arterial embolism. 2. Nonspecific diffuse bilateral peribronchial thickening, prominence of the interstitium and mild nonspecific bilateral groundglass attenuation. Constellation of findings suggests the presence of diffuse interstitial edema. 3. Trace bilateral pleural effusions. Electronically authenticated by: CODY WAY Date: 2022-08-26 20:19 Normal [facility] l CULTURE BLOODon 08-26-2022 Microscopic examination of blood, culture Culture Observations: NO GROWTH AT 5 DAYS. Normal [facility] Comment on above: Performed By: #### B MP #### [facility] [address] [place] [address] Duy Gallegos Covid-19 PCR (CVDTB)on SARS-CoV-2 (COVID-19) RNA RICKY+probe Ql (Unsp spec) Not detected Normal NOT DETECTED [facility] Comment on above: Result Comment: When diagnostic testing is negative, the possibility of a false negative should be considered in the context of a patient's recent exposures and the presence of clinical signs and symptoms consistent with SARS-CoV-2. This test is not yet approved or cleared by the [place] FDA. When there are no FDA-approved or cleared tests available, and other criteria are met, FDA can make tests available under an emergency access mechanism called an Emergency Use Authorization (EUA). The EUA for this test is supported by the [employer] Operator of Health and Human Service's declaration that circumstances exist to justify the emergency use of in vitro diagnostics for the detection and/or diagnosis of the virus that causes COVID-19. This EUA will remain in effect for the duration of the COVID-19 declaration justifying emergency of IVDs, unless it is terminated or revoked by the FDA (after which the test may no longer be used). Performed By: #### C BC #### [facility] [address] [place] [address] Dr. Duy Gallegos D-DIMERon 08-26-2022 D-DIMER 1.10 mg/L FEU Critically high <=0.59 [facility] Comment on above: Performed By: #### D DIM #### [facility] [address] [place] [address] Dr. Duy Gallegos D-DIMER COMMENTS SEE BELOW Normal The [facility] Comment on above: Result Comment: Incr eases in D-Dimer concentration observed with thromboembolic events can be variable due to localization, size, and age of the thrombus. Therefore, a thromboembolic event cannot be diagnosed with certainty on the basis of the reference range. D-Dimers may also be elevated for a variety of disorders including: advanced age, , coronary disease, cancer, liver disease, infection, inflammation, hematoma, DIC, trauma, post-surgery, diabetes, thrombolytic or anticoagulant therapy, stress, and generalized hospitalization. Performed By: #### D DIM #### [facility] [address] [place] [address] Dr. Duy Gallegos INFLUENZA A AND B AGon 08-26 INFLUANEGH SEE BELOW Normal The [facility] Comment on above: Result Comment: Nega tive for Flu A protein angiten. Infection due to Flu A cannot be ruled out. Flu A angiten in the sample may be below the detection limit of the test. Performed By: #### I NFLUAB #### [facility] [address] [place] [address] Dr. Duy Gallegos INFLUBNEGH SEE BELOW Normal [facility] Comment on above: Result Comment: Nega tive for Flu B protein antigen. Infection due to Flu B cannot be ruled out. Flu B antigen in the sample may be below the detection limit of the test. Performed By: #### I NFLUAB #### [facility] [address] [place] [address] Dr. Duy Gallegos INFLUENZA A AG Negative Normal NEGATIVE SEE COMMENT [facility] Comment on above: Performed By: #### I NFLUAB #### [facility] [address] [place] [address] Dr. Duy Gallegos INFLUENZA B AG Negative Normal NEGATIVE SEE COMMENT [facility] Comment on above: Performed By: #### I NFLUAB #### [facility] [address] [place] [address] Dr. Duy Gallegos LACTATE/LACTIC ACIDon 2022 Lactate [Moles/Vol] 1.8 mmol/L Normal 0.4-1.9 [facility] Comment on above: Performed By: #### L ACT #### [facility] [address] [place] [address] Dr. Duy Gallegos PROF 14(COMP METB)on 023 Albumin [Mass/Vol] 3.7 g/dL Normal 3.4-5.0 [facility] Comment on above: Performed By: #### B MOTION PICTURE SET WORKER, CMP, HSTROPN #### [facility] [address] [place] [address] Dr. Duy Gallegos Albumin/Globulin [Mass ratio] 1.0 {ratio} Normal [facility] Comment on above: Performed By: #### B MOTION PICTURE SET WORKER, CMP, HSTROPN #### [facility] [address] [place] [address] Dr. Duy Gallegos ALP [Catalytic activity/Vol] 84 U/L Normal 46-116 [facility] Comment on above: Performed By: #### B MOTION PICTURE SET WORKER, CMP, HSTROPN #### [facility] [address] [address] [address] Duy Gallegos ALT [Catalytic activity/Vol] 103 U/L Critically high 16 -63 [facility] Comment on above: Performed By: #### B MOTION PICTURE SET WORKER, CMP, HSTROPN #### [facility] [address] [place] [address] Dr. Duy Gallegos Anion gap [Moles/Vol] 15.5 mmol/L Normal [facility] Comment on above: Performed By: #### B MOTION PICTURE SET WORKER, CMP, HSTROPN #### [facility] [address] [place] [address] Dr. Duy Gallegos AST [Catalytic activity/Vol] 62 U/L Critically high 15 -37 [facility] Comment on above: Performed By: #### B MOTION PICTURE SET WORKER, CMP, HSTROPN #### [facility] [address] [place] [address] Dr. Duy Gallegos Bilirubin [Mass/Vol] 0.3 mg/dL Normal 0.2-1.0 [facility] Comment on above: Performed By: #### B MOTION PICTURE SET WORKER, CMP, HSTROPN #### [facility] [address] [place] [address] Dr. Duy Gallegos Calcium [Mass/Vol] 8.8 mg/dL Normal 8.5-10.1 [facility] Comment on above: Performed By: #### B MOTION PICTURE SET WORKER, CMP, HSTROPN #### [facility] [address] [place] [address] Dr. Duy Gallegos Chloride [Moles/Vol] 106 mmol/L Normal 98-107 [facility] Comment on above: Performed By: #### B MOTION PICTURE SET WORKER, CMP, HSTROPN #### [facility] [address] [place] [address] Dr. Duy Gallegos CO2 [Moles/Vol] 25.9 mmol/L Normal 21.0-32.0 [facility] Comment on above: Performed By: #### B MOTION PICTURE SET WORKER, CMP, HSTROPN #### [facility] [address] [address] [address] Duy Gallegos Creatinine [Mass/Vol] 1.32 mg/dL Critically high 0.70-1.30 [facility] Comment on above: Performed By: #### B MOTION PICTURE SET WORKER, CMP, HSTROPN #### [facility] [address] [address] [address] Duy Gallegos EGFR-AF KENYAN >60 Normal >=60 [facility] Comment on above: Performed By: #### B MOTION PICTURE SET WORKER, CMP, HSTROPN #### [facility] [address] [place] [address] Dr. Duy Gallegos EGFR-NON AF KENYAN 54 mL/min/1.73m2 Critically low >=60 [facility] Comment on above: Performed By: #### B MOTION PICTURE SET WORKER, CMP, HSTROPN #### [facility] [address] [place] [address] Dr. Duy Gallegos Globulin (S) [Mass/Vol] 3.6 g/dL Normal [facility] Comment on above: Performed By: #### B MOTION PICTURE SET WORKER, CMP, HSTROPN #### [facility] [address] [place] [address] Dr. Dyu Gallegos Glucose [Mass/Vol] 146 mg/dL Critically high 74-106 [facility] Comment on above: Performed By: #### B MOTION PICTURE SET WORKER, CMP, HSTROPN #### [facility] [address] [place] [address] Dr. Duy Gallegos Potassium [Moles/Vol] 4.4 mmol/L Normal 3.5-5.1 [facility] Comment on above: Performed By: #### B MOTION PICTURE SET WORKER, CMP, HSTROPN #### [facility] [address] [place] [address] Dr. Duy Gallegos Protein [Mass/Vol] 7.3 g/dL Normal 6.4-8.2 [facility] Comment on above: Performed By: #### B MOTION PICTURE SET WORKER, CMP, HSTROPN #### [facility] [address] [place] [address] Dr. Duy Gallegos Sodium [Moles/Vol] 143 mmol/L Normal 136-145 [facility] Comment on above: Performed By: #### B MOTION PICTURE SET WORKER, CMP, HSTROPN #### [facility] [address] [place] [address] Dr. Duy Gallegos Urea nitrogen [Mass/Vol] 15.0 mg/dL Normal 7.0-18.0 [facility] Comment on above: Performed By: #### B MOTION PICTURE SET WORKER, CMP, HSTROPN #### [facility] [address] [place] [address] Dr. Duy Gallegos Urea nitrogen/Creatinine [Mass ratio] 11.4 mg/mg Normal [facility] Comment on above: Performed By: #### B MOTION PICTURE SET WORKER, CMP, HSTROPN #### [facility] [address] [place] [address] Dr. Duy Gallegos TROPONIN, HIGH SENSITIVITYon 08-26-2022 HSTROP 41.1 pg/mL Normal 4.0-76.1 [facility] Comment on above: Result Comment: CUT- OFF POINTS HAVE BEEN ESTABLISHED BASED ON THE FOURTH UNIVERSAL DEFINITIONS OF MYOCARDIAL INFARCTION. THE UPPER REFERENCE LIMIT (URL) OF TROPONIN, DEFINED THE 99TH PERCENTILE OF cTnI DISTRIBUTION IN A REFERENCE POPULATION, HAS BEEN CONFIRMED THE DECISION THRESHOLD FOR MD DIAGNOSIS. Performed By: #### B MP #### [facility] [address] [place] [address] Dr. Duy Gallegos CBC AUTO DIFFon 05-18-2022 BASO # 0.1 103/ul Normal 0.0-0.1 [facility] Comment on above: Performed By: #### C BC #### [facility] [address] [place] [address] Dr. Duy Gallegos Basophils/100 WBC (Bld) 1.5 % Normal 0.2-2.0 [facility] Comment on above: Performed By: #### C BC #### [facility] [address] [place] [address] Dr. Duy Gallegos EO # 0.3 103/ul Normal 0.0-0.7 [facility] Comment on above: Performed By: #### C BC #### [facility] [address] [place] [address] Dr. Duy Gallegos Eosinophils/100 WBC (Bld) 4.7 % Normal 0.9-7.0 [facility] Comment on above: Performed By: #### C BC #### [facility] [address] [place] [address] Dr. Duy Gallegos Erythrocyte distribution wid th (RBC) [Ratio] 12.8 % Normal 11.0-15.0 [facility] Comment on above: Performed By: #### C BC #### [facility] [address] [place] [address] Dr. Duy Gallegos Hematocrit (Bld) [Volume fraction] 39.1 % Critically low 42.0-54.0 [facility] Comment on above: Performed By: #### C BC #### [facility] [address] [place] [address] Dr. Duy Gallegos Hemoglobin (Bld) [Mass/Vol] 13.2 g/dL Critically low 14.0 -18.0 [facility] Comment on above: Performed By: #### C BC #### [facility] [address] [place] [address] Dr. Duy Gallegos IG # 0.03 10e3/ul Normal 0.00-0.03 [facility] Comment on above: Performed By: #### C BC #### [facility] [address] [place] [address] Dr. Duy Gallegos IG % 0.5 % Normal 0.0-0.5 [facility] Comment on above: Performed By: #### C BC #### [facility] [address] [place] [address] Dr. Duy Gallegos LYMPH # 1.4 103/ul Normal 1.2-3.8 The [facility] Comment on above: Performed By: #### C BC #### [facility] [address] [place] [address] Dr. Duy Gallegos Lymphocytes/100 WBC (Bld) 23.8 % Normal 20.5-60.0 [facility] Comment on above: Performed By: #### C BC #### [facility] [address] [place] [address] Dr. Duy Gallegos MANUAL DIFF REQ NO Normal [facility] Comment on above: Performed By: #### C BC #### [facility] [address] [place] [address] Dr. Duy Gallegos MCH (RBC) [Entitic mass] 28.8 pg Normal 25.9-34.0 [facility] Comment on above: Performed By: #### C BC #### [facility] [address] [place] [address] Dr. Duy Gallegos MCHC (RBC) [Mass/Vol] 33.8 g/dL Normal 29.9-35.2 [facility] Comment on above: Performed By: #### C BC #### [facility] [address] [place] [address] Dr. Duy Gallegos MCV (RBC) [Entitic vol] 85.2 fL Normal 80.0-94.0 [facility] Comment on above: Performed By: #### C BC #### [facility] [address] [place] [address] Dr. Duy Gallegos MONO # 0.5 103/ul Normal 0.3-0.8 [facility] Comment on above: Performed By: #### C BC #### [facility] [address] [place] [address] Dr. Duy Gallegos Monocytes/100 WBC (Bld) 7.8 % Normal 1.7-12.0 [facility] Comment on above: Performed By: #### C BC #### [facility] [address] [place] [address] Dr. Duy Gallegos NEUT # 3.7 103/ul Normal 1.4-6.5 [facility] Comment on above: Performed By: #### C BC #### [facility] [address] [place] [address] Dr. Duy Gallegos Neutrophils/100 WBC (Bld) 61.7 % Normal 43.0-75.0 [facility] Comment on above: Performed By: #### C BC #### [facility] [address] [address] [address] Duy Gallegos Platelet mean volume (Bld) [Entitic vol] 9.6 fL Normal 9.5-13.5 [facility] Comment on above: Performed By: #### C BC #### [facility] [address] [address] [address] Duy Gallegos PLT 199 103/ul Normal 150-450 [facility] Comment on above: Performed By: #### C BC #### [facility] [address] [place] [address] Dr. Duy Gallegos RBC 4.59 106/ul Critically low 4.70-6.10 [facility] Comment on above: Performed By: #### C BC #### [facility] [address] [place] [address] Dr. Duy Gallegos WBC 6.0 103/ul Normal 4.0-11.0 [facility] Comment on above: Performed By: #### C BC #### [facility] [address] [place] [address] Dr. Duy Gallegos METHYLMALONIC ACID (MMA)on 0 03-03-2022 Methylmalonic Acid, Serum 232 nmol/L Normal 0-378 [facility] Comment on above: Performed By: #### M MA2 #### [facility] [address] [place] [address] Dr. Duy Gallegos CBC AUTO DIFFon 02-25-2022 BASO # 0.1 103/ul Normal 0.0-0.1 [facility] Comment on above: Performed By: #### C BC #### [facility] [address] [place] [address] Dr. Duy Gallegos Basophils/100 WBC (Bld) 1.3 % Normal 0.2-2.0 [facility] Comment on above: Performed By: #### C BC #### [facility] [address] [place] [address] Dr. Duy Gallegos EO # 0.2 103/ul Normal 0.0-0.7 The [facility] Comment on above: Performed By: #### C BC #### [facility] [address] [place] [address] Dr. Duy Gallegos Eosinophils/100 WBC (Bld) 4.8 % Normal 0.9-7.0 [facility] Comment on above: Performed By: #### C BC #### [facility] [address] [place] [address] Dr. Duy Gallegos Erythrocyte distribution wid th (RBC) [Ratio] 13.9 % Normal 11.0-15.0 [facility] Comment on above: Performed By: #### C BC #### [facility] [address] [place] [address] Dr. Duy Gallegos Hematocrit (Bld) [Volume fraction] 36.2 % Critically low 42.0-54.0 [facility] Comment on above: Performed By: #### C BC #### [facility] [address] [place] [address] Dr. Duy Gallegos Hemoglobin (Bld) [Mass/Vol] 12.2 g/dL Critically low 14.0 -18.0 [facility] Comment on above: Performed By: #### C BC #### [facility] [address] [place] [address] Dr. Duy Gallegos IG # 0.01 10e3/ul Normal 0.00-0.03 [facility] Comment on above: Performed By: #### C BC #### [facility] [address] [place] [address] Dr. Duy Gallegos IG % 0.2 % Normal 0.0-0.5 The [facility] Comment on above: Performed By: #### C BC #### [facility] [address] [place] [address] Dr. Duy Gallegos LYMPH # 1.3 103/ul Normal 1.2-3.8 The [facility] Comment on above: Performed By: #### C BC #### [facility] [address] [place] [address] Dr. Duy Gallegos Lymphocytes/100 WBC (Bld) 29.3 % Normal 20.5-60.0 [facility] Comment on above: Performed By: #### C BC #### [facility] [address] [place] [address] Dr. Duy Gallegos MANUAL DIFF REQ NO Normal [facility] Comment on above: Performed By: #### C BC #### [facility] [address] [place] [address] Dr. Duy Gallegos MCH (RBC) [Entitic mass] 29.5 pg Normal 25.9-34.0 [facility] Comment on above: Performed By: #### C BC #### [facility] [address] [place] [address] Dr. Duy Gallegos MCHC (RBC) [Mass/Vol] 33.7 g/dL Normal 29.9-35.2 [facility] Comment on above: Performed By: #### C BC #### [facility] [address] [place] [address] Dr. Duy Gallegos MCV (RBC) [Entitic vol] 87.7 fL Normal 80.0-94.0 [facility] Comment on above: Performed By: #### C BC #### [facility] [address] [place] [address] Dr. Duy Gallegos MONO # 0.4 103/ul Normal 0.3-0.8 [facility] Comment on above: Performed By: #### C BC #### [facility] [address] [place] [address] Dr. Duy Gallegos Monocytes/100 WBC (Bld) 9.4 % Normal 1.7-12.0 [facility] Comment on above: Performed By: #### C BC #### [facility] [address] [place] [address] Dr. Duy Gallegos NEUT # 2.5 103/ul Normal 1.4-6.5 The [facility] Comment on above: Performed By: #### C BC #### [facility] [address] [place] [address] Dr. Duy Gallegos Neutrophils/100 WBC (Bld) 55.0 % Normal 43.0-75.0 [facility] Comment on above: Performed By: #### C BC #### [facility] [address] [place] [address] Dr. Duy Gallegos Platelet mean volume (Bld) [Entitic vol] 9.4 fL Critically low 9.5-13.5 [facility] Comment on above: Performed By: #### C BC #### [facility] [address] [place] [address] Dr. Duy Gallegos PLT 142 103/ul Critically low 150-450 [facility] Comment on above: Performed By: #### C BC #### [facility] [address] [place] [address] Dr. Duy Gallegos RBC 4.13 106/ul Critically low 4.70-6.10 [facility] Comment on above: Performed By: #### C BC #### [facility] [address] [place] [address] Dr. Duy Gallegos WBC 4.6 103/ul Normal 4.0-11.0 [facility] Comment on above: Performed By: #### C BC #### [facility] [address] [place] [address] Dr. Duy Gallegos FERRITINon 02-25-2022 Ferritin [Mass/Vol] 274.0 ng/mL Normal 26.0-388.0 [facility] Comment on above: Performed By: #### C BC #### [facility] [address] [place] [address] Dr. Duy Gallegos IRON AND TIBCon 02-25-2022 % SATURATION 33.8 % Normal [facility] Comment on above: Performed By: #### C BC #### [facility] [address] [place] [address] Dr. Duy Gallegos Iron [Mass/Vol] 97.0 ug/dL Normal 65.0-175.0 [facility] Comment on above: Performed By: #### C BC #### [facility] [address] [place] [address] Dr. Duy Gallegos TIBC DIRECT 287.0 ug/dL Normal 250.0-450.0 [facility] Comment on above: Performed By: #### C BC #### [facility] [address] [place], [place] [address] Dr. Duy Gallegos VIT B12 AND FOLATEon 022 Cobalamin (Vitamin B12) [Mass/Vol] 817.0 pg/mL Normal 193.0-986.0 [facility] Comment on above: Performed By: #### C BC #### [facility] [address] [place], [place] [address] Dr. Duy Gallegos FOLATE 16.90 ng/mL Normal 8.60-58.90 [facility] Comment on above: Performed By: #### C BC #### [facility] [address] [place], [place] [address] Dr. Duy Gallegos XR CHEST 2 Von 12-28-2021 XR CHEST 2 V EXAM: XR CHEST 2 V HISTORY: Pneumonia EXAM: XR CHEST 2 V INDICATION: 66 years old Male Pneumonia COMPARISON: October 12, 2021 FINDINGS: The cardiac silhouette is normal. There is no pulmonary edema. The lungs are clear. There is no pneumonia. There is no pneumothorax. There is no abnormal foreign body. IMPRESSION: There is no acute abnormality. Electronically authenticated by: ALEXA MCKENZIE Date: 2021-12-28 13:59 Normal [facility] COVID Quick Testingon 2021 Result Negative [facility] Other Quick Fluon 08-07-2021 FLUAV Ab CF (S) [Titer] Negative [facility] [employer] Other FLUBV Ab CF (S) [Titer] Negative N [employer] Other COVID Quick Testingon 2020 Result Positive [facility] Other Vital Signs Date Time Vital Sign Value Performing Clinician Facility 06-06-2023 17:10-0500 Diastolic blood pressure 70 mm[Hg] Meghan Zafarfuad [facility] 06-06-2023 17:10-0500 Heart rate 60 /min Meghan Lue [facility] 06-06-2023 17:10-0500 Respiratory rate 16 /min Meghan Lue [facility] 06-06-2023 17:10-0500 SaO2% (BldA) [Mass fraction] 100 % Meghan Lue [facility] 06-06-2023 17:10-0500 Systolic blood pressure 120 mm[Hg] Meghan Lue [facility] 06-06-2023 17:02-0500 Heart rate 62 /min Meghan Lue [facility] 06-06-2023 17:02-0500 SaO2% (BldA) [Mass fraction] 100 % Meghan Lue [facility] 06-06-2023 17:02-0500 Respiratory rate 16 /min Meghan Lue [facility] 06-06-2023 16:52-0500 Diastolic blood pressure 56 mm[Hg] Meghan Lue [facility] 06-06-2023 16:52-0500 Heart rate 60 /min Meghan Lue [facility] 06-06-2023 16:52-0500 SaO2% (BldA) [Mass fraction] 97 % Meghan Lue [facility] 06-06-2023 16:52-0500 Systolic blood pressure 89 mm[Hg] Meghan Lue [facility] 06-06-2023 16:29-0500 Diastolic blood pressure 89 mm[Hg] Meghan Lue [facility] 06-06-2023 16:29-0500 Systolic blood pressure 154 mm[Hg] Meghan Lue [facility] 06-06-2023 14:00-0500 Blood Pressure Location Meghan Lue [facility] 06-06-2023 14:00-0500 Mean blood pressure 84 mm[Hg] Meghan Lue [facility] 06-06-2023 14:00-0500 Respiratory rate 18 /min Meghan Lue [facility] 05-10-2023 10:54-0500 Blood Pressure Location Meghan Lue [facility] 05-10-2023 10:54-0500 Diastolic blood pressure 76 mm[Hg] Meghan Lue [facility] 05-10-2023 10:54-0500 Heart rate 68 /min Meghan Lue [facility] 05-10-2023 10:54-0500 Respiratory rate 16 /min Meghan Lue [facility] 05-10-2023 10:54-0500 Systolic blood pressure 132 mm[Hg] Meghan Lue [facility] 04-11-2023 11:40-0400 Blood Pressure Location THERESA FLAKO [facility] 04-11-2023 11:40-0400 Diastolic blood pressure 75 mm[Hg] THERESA FLAKO [facility] 04-11-2023 11:40-0400 Heart rate 68 /min THERESA FLAKO [facility] 04-11-2023 11:40-0400 Respiratory rate 16 /min THERESA FLAKO [facility] 04-11-2023 11:40-0400 Systolic blood pressure 134 mm[Hg] THERESA FLAKO [facility] 12-20-2022 10:11-0400 Blood Pressure Location THERESA FLAKO [facility] 12-20-2022 10:11-0400 Diastolic blood pressure 80 mm[Hg] THERESA FLAKO [facility] 12-20-2022 10:11-0400 Heart rate 70 /min THERESA FLAKO [facility] 12-20-2022 10:11-0400 Respiratory rate 16 /min THERESA FLAKO [facility] 12-20-2022 10:11-0400 Systolic blood pressure 140 mm[Hg] THERESA FLAKO [facility] 11-23-2022 08:30-0400 Body height 177.8 cm Gio Ball Other [facility] Other 11-23-2022 08:30-0400 Body mass index (BMI) [Ratio] 32.42 kg/m2 Gio Ball Other [employer] [facility] Other 11-23-2022 08:30-0400 Body weight 102.51 kg Gio Ball Other [employer] [facility] Other 11-23-2022 08:30-0400 Diastolic blood pressure 69 mm[Hg] Gio Ball Other [facility] Other 11-23-2022 08:30-0400 Respiratory rate 12 /min Gio Ball Other [facility] Other 11-23-2022 08:30-0400 Systolic blood pressure 162 mm[Hg] Gio Ball Other [facility] Other 08-31-2022 10:00-0500 Body height 177.8 cm Gio Ball Other [facility] Other 08-31-2022 10:00-0500 Body mass index (BMI) [Ratio] 33.43 kg/m2 Gio Ball Other [facility] Other 08-31-2022 10:00-0500 Body weight 105.69 kg Gio Ball Other [facility] Other 08-31-2022 10:00-0500 Diastolic blood pressure 80 mm[Hg] Gio Ball Other [facility] Other 08-31-2022 10:00-0500 Respiratory rate 16 /min Gio Ball Other [facility] Other 08-31-2022 10:00-0500 SaO2% (BldA) [Mass fraction] 98 % Gio Ball Other [facility] Other 08-31-2022 10:00-0500 Systolic blood pressure 132 mm[Hg] Gio Ball Other [facility] Other 10-26-2021 09:11-0400 Blood Pressure Location Daniel Kern Jr. [facility] 10-26-2021 09:11-0400 Diastolic blood pressure 77 mm[Hg] Daniel Kern Jr. [facility] 10-26-2021 09:11-0400 Heart rate 78 /min Daniel Erlin Alonso [facility] 10-26-2021 09:11-0400 Respiratory rate 16 /min Daniel Erlin Alonso [facility] 10-26-2021 09:11-0400 Systolic blood pressure 181 mm[Hg] Daniel Kern Jr. [facility] 08-07-2021 11:00-0500 Body height 177.8 cm Gina Starks Other [facility] Other 08-07-2021 11:00-0500 Body mass index (BMI) [Ratio] 30.13 kg/m2 Gina Starks Other [facility] Other 08-07-2021 11:00-0500 Body temperature 101 [degF] Gina Starks Other [facility] Other 08-07-2021 11:00-0500 Body weight 95.26 kg Gina Starks Other [facility] Other 08-07-2021 11:00-0500 Respiratory rate 18 /min Gina Starks Other [facility] Other 08-07-2021 11:00-0500 SaO2% (BldA) [Mass fraction] 97 % Gina Starks Other [facility] Other 05-24-2021 18:15-0500 Body height 177.8 cm Sybil Lee Other [facility] Other 05-24-2021 18:15-0500 Body mass index (BMI) [Ratio] 30.85 kg/m2 Sybil Lee Other [facility] Other 05-24-2021 18:15-0500 Body temperature 96.9 [degF] Sybil Lee Other [facility] Other 05-24-2021 18:15-0500 Body weight 97.52 kg Sybil Lee Other [facility] Other 05-24-2021 18:15-0500 SaO2% (BldA) [Mass fraction] 91 % Sybil Lee Other [facility] Other Encounters Encounter Date Encounter Type Care Provider Facility Start: 06-14-2023 ambulatory Meghan Brito Facility:[facility] [place] Start: 06-06-2023 End: 06-07-2023 ambulatory DUY GALLEGOS MD Facility:[id number] Start: 06-06-2023 End: 06-06-2023 ambulatory Meghan Brito Facility[facility] Start: 06-06-2023 End: 06-06-2023 Admission to same day surgery center Meghan Brito [facility] Start: 06-05-2023 End: 06-05-2023 ambulatory Gio Jasso Other [facility] Other Start: 06-05-2023 Telephone encounter Gio Jasso [facility] Start: 05-10-2023 End: 05-11-2023 ambulatory Meghan Brito Facility:[facility] [place] Start: 05-10-2023 End: 05-10-2023 Patient encounter procedure [facility] Start: 04-28-2023 ambulatory Meghan Brito Facility:[facility] Start: 04-27-2023 End: 04-27-2023 ambulatory Gio Jasso Other [facility] Other Start: 04-27-2023 Telephone encounter Gio Jasso [facility] Start: 04-11-2023 End: 04-12-2023 ambulatory PA-C THERESA ARRIOLA Facility:[facility] [place] Start: 04-11-2023 End: 04-11-2023 Patient encounter procedure [facility]A [facility]OLA [facility] Start: 04-04-2023 End: 04-04-2023 ambulatory Gio Jasso Other [facility] Other Start: 04-04-2023 Telephone encounter Gio Jasso [facility] Start: 04-03-2023 End: 04-03-2023 ambulatory Theresa Arriola Facility:[facility] Start: 04-03-2023 End: 04-03-2023 ambulatory DO Gio Jasso Work Phone: [facility] Work Phone: Start: 04-03-2023 End: 04-03-2023 Patient encounter procedure DO Gio Jasso Work Phone: [facility] [place] Work Phone: Start: 12-20-2022 End: 12-21-2022 ambulatory PA-C THERESA ARRIOLA Facility:[facility] [place] Start: 12-20-2022 End: 12-20-2022 Patient encounter procedure THERESA ARRIOLA [facility] Start: 12-13-2022 End: 12-13-2022 ambulatory Gio Jasso Other [facility] Other Start: 12-13-2022 Telephone encounter Gio Jasso [facility] Start: 12-12-2022 End: 12-12-2022 ambulatory Gio Jasso Other [facility] Other Start: 12-12-2022 Telephone encounter Gio Jasso [facility] Start: 11-23-2022 End: 11-23-2022 ambulatory Gio Jasso Other [facility] Other Start: 11-23-2022 Encounter for genera l adult medical examination without abnormal findings Gio Jasso [facility] Start: 11-23-2022 Periodic preventive med est patient 65yrs& older Gio Jasso [facility] Start: 11-07-2022 End: 11-08-[address] GIO JASSO Facility:[facility] Start: 11-01-2022 ambulatory Aureliano DOYLE Facility: [facility] [place] Start: 08-31-2022 End: 08-31-2022 ambulatory Gio Jasso Other [facility] Other Start: 08-31-2022 Office outpatient vi sit 25 minutes Gio Jasso [facility] Start: 08-26-2022 End: 08-28-2022 Evaluation and management of inpatient DR DARIUS GIANG . Facility:[facility] Start: 05-18-2022 End: 05-19-[address] GIO JASSO Facility:[facility] Start: 02-25-2022 End: 02-26-[address] GIO JASSO Facility:[facility] Start: 01-07-[address] GIO JASSO Facili ty:[facility] Start: 12-28-2021 End: 12-29-[address] GIO JASSO Facility:[facility] Start: 11-18-2021 Adult health examination Gio Jasso Other [facility] Other Start: 10-26-2021 End: 10-26-2021 Patient encounter procedure Daniel Kern Jr. [facility] Start: 08-07-2021 End: 08-07-2021 ambulatory Gina Starks Other [facility] Other Start: 08-07-2021 Office outpatient vi sit 15 minutes Gina Starks [facility] Start: 05-24-2021 End: 05-24-2021 ambulatory Sybilsofía Lee Other [facility] Other Start: 05-24-2021 Office outpatient vi sit 15 minutes Sybil Rosa [facility] Procedures Date Procedure Procedure Detail Performing Clinician Start: 06-06-2023 Prostate biopsy elizabeth vale (specimen) Meghan Brito Start: 04-03-2023 MR prostate wo/w con DO Gio Jasso Work Phone: Start: 04-07-2020 Transrectal biopsy o f prostate using ultrasound guidance Daniel Kern Jr. Start: 01-30-2019 Screening for malign ant neoplasm of colon Gio Jasso Other Start: 10-31-2018 General examination of patient Gio Jasso Other Start: 08-12-2015 Transrectal biopsy o f prostate using ultrasound guidance Daniel Kern Jr. Hernia repair Daniel major Screening for malign ant neoplasm of prostate Gio Jasso Other Tonsillectomy Daniel amjor Plan of Treatment Date Care Activity Detail Author [facility] Immunizations Immunization Date Immunization Notes Care Provider Renetta thacker 05-25-2023 influenza, high dose seasonal, preservative-free Gio Jasso Other [facility] Other 05-25-2023 pneumococcal polysaccharide vaccine, 23 valent Gio Jasso Other [facility] Other 02-24-2022 influenza virus vaccine, unspecified formulation THERESA ARRIOLA [facility] 02-24-2022 influenza, high dose seasonal, preservative-free Gio Jasso Other [facility] Other 11-18-2021 pneumococcal conjuga te vaccine, 13 valent Gio Jasso Other [facility] Other 09-01-2021 COVID-19 Vaccine Moderna - Documentation Purposes Only Gio Jasso Other [facility] 06-26-2021 pneumococcal conjuga te vaccine, 13 valent Gio Jasso Other [facility] 09-02-2020 SARS-CoV-2 (COVID-19 ) Ad26 vaccine, recombinant Daniel Kern Jr. [facility] 05-03-2019 influenza virus vaccine, split virus (incl. purified surface antigen) Gio Jasso Other [facility] Other 05-09-2018 influenza virus vaccine, split virus (incl. purified surface antigen) Gio Jasso Other [facility] Other Payers Date Payer Category Payer Medicare [id number] 2023 Unknown [id number] 2023 Medicare [id number] 2020 Private Health Insurance [id number] 1959 Self-pay 1959 Unknown [id number] 2.16. [id number] 1956 Unknown [id number] 2.16.84 [id number] 1956 Unknown [id number] 2.16.84 [id number] 1956 Unknown [id number] 2.16.84 [id number] 1956 Unknown [id number] 2.16.84 [id number] 1956 Unknown [id number] 2.16.84 [id number] 1956 Unknown [id number] 2.16.84 [id number] 1956 Unknown [id number] 2.16.8 [id number] 1956 Unknown [id number] 2.16.8 [id number] 1956 Unknown [id number] 2.16.8 40.1.038317.3.579.2.727 1956 Unknown [id number] 2.16.8 40.1.771960.3.579.2.727 1956 Unknown [id number] 2.16.8 40.1.684321.3.579.2.727 1956 Unknown [id number] 2.16.8 40.1.566497.3.579.2.727 1956 Unknown [id number] 2.16.8 [id number] 1956 Unknown [id number] 2.16.8 [id number] Medicare Private Health Insurance Unknown [id number] 2.16.8 [id number] Social History Date Type Detail Facility Start: 10-26-2021 Tobacco smoking status Heavy t obacco smoker (finding) [facility] Other Sex Assigned At Male [facility] Other Start: 12-20-2022 End: 05-10-2023 Tobacco smoking status Ex-smoker (finding) [facility] Tobacco smoking status Never [facility] Start: 12-16-2020 Tobacco smoking stat [facility] Smoker (finding) [facility] Start: 1955 Sex Assigned At Male F [facility] Functional Status Date Assessment Result Facility 05-16-2023 Functional Status N/A [facility] 05-10-2023 Functional Status N/A [facility] 04-11-2023 Functional Status N/A [facility] 12-20-2022 Functional Status N/A [facility] Clinical Notes 05-24-2021 to 06-06-2023 Note Date & Type Note Facility 06-06-2023 Hospital Discharg e instructions Patient Education 06/06/2023 16:52:41 [facility] - Transrectal Ultrasound of the Prostate with US guided biopsy Discharge Instructions (CUSTOM) Transperineal?Biopsy of the Prostate Discharge Instructions After the procedure, it is common to have: Pain and discomfort near your rectum, especially while sitting. [place]-colored urine due to small amounts of blood in your urine for 4-5 weeks. When your urine turns red, limit your activities and drink plenty of fluids. A burning feeling while urinating. Blood in your semen. If you go home with a Fisher catheter in place, you will have it removed at your follow-up clinic appointment or by your own doctor (urologist). Your may be allowed to remove your Fsiher catheter at home. If so, our nursing staff will teach you how to remove the catheter and provide you with a syringe to remove the fluid. You may have discoloration (black/blue), pain, and swelling to the?perineal?area (between your thighs) for up to 3 weeks. Ice, elevation, and supportive underwear can help ease these symptoms. ? Medications Ok to restart taking aspirin or other blood thinners after 24 hours. Antibiotics may be prescribed by your doctor. If they are, take them until they are gone. As needed for pain: Ibuprofen 400-800mg every 6 hours, alternate 3 hours in between with Tylenol 650-1000mg every 6 hours. Activity You may begin driving 24 hours after surgery if you are not taking prescription pain medication. If you were given a sedative during your procedure, it can affect you for several hours. Do not drive or operate machinery until your health care provider says that it is safe. No heavy lifting for 2-3?days (nothing greater than 10 pounds). Avoid straining with bowel movements, take stool softeners if needed. Avoid sexual intercourse or masturbation for 4-5 days ? Diet Drink plenty of fluids. Continue your normal diet. When to call the doctor If you experience a temperature of 101.5 F or greater If you experience chills with or without fever If you experience pain that gets worse If you have difficulty urinating or catheter-related problems Follow Up Care 05/10/2023 12:51:29 With:Meghan Brito Address:Unknown When: Unknown Comments:Keep scheduled appointment [facility] 06-06-2023 Evaluation + Plan note Extrac rina from: Title:[facility] -transperineal prostate biopsy Author:Meghan Melgoza MD Date:06/06/23 Impression and Plan Diagnosis Elevated PSA ([id number] R97.20, Discharge, Medical). Diagnosis Elevated PSA ([id number] R97.20, Discharge, Medical). Future Appointments Appointment Date:06/14/2023 10:30:00 AM Scheduled Provider:Meghan Brito MD Location:[facility] Appointment Type:URO Office Visit [facility]11-20-2023 Note [id number] Discharge instructions Patient Education 05/10/2023 11:20:34 Prostate Cancer Screening Prostate Cancer Screening Prostate cancer screening is testing that is done to check for the presence of prostate cancer in men. The prostate gland is a walnut-sized gland that is located below the bladder and in front of therectum in males. The function of the prostate is to add fluid to semen during ejaculation. Prostatecancer is one of the most common types of cancer in men. Who should have prostate cancer screening? Screening recommendations vary based on age and other risk factors, as well as between the professional organizations who make the recommendations. In general, screening is recommended if: You are age 50 to 70 and have an average risk for prostate cancer. You should talk with your healthcare provider about your need for screening and how often screening should be done. Because most prostate cancers are slow growing and will not cause , screening in this age group is generally reserved for men who have a 10- to 15-year life expectancy. You are younger than age 50, and you have these risk factors: ?Having a father, brother, or uncle who has been diagnosed with prostate cancer. The risk is higherif your family member's cancer occurred at an early age or if you have multiple family members withprostate cancer at an early age. ?Being a male who is Black or is of [place] or sub-Saharan descent. In general, screening is not recommended if: You are younger than age 40. You are between the ages of 40 and 49 and you have no risk factors. You are 70 years of age or older. At this age, the risks that screening can cause are greater than the benefits that it may provide. If you are at high risk for prostate cancer, your health care provider may recommend that you have screenings more often or that you start screening at a younger age. How is screening for prostate cancer done? The recommended prostate cancer screening test is a blood test called the prostate-specific antigen(PSA) test. PSA is a protein that is made in the prostate. As you age, your prostate naturally produces more PSA. Abnormally high PSA levels may be caused by: Prostate cancer. An enlarged prostate that is not caused by cancer (benign prostatic hyperplasia, or BPH). This condition is very common in older men. A prostate gland infection (prostatitis) or urinary tract infection. Certain medicines such as male hormones (like testosterone) or other medicines that raise testosterone levels. A rectal exam may be done as part of prostate cancer screening to help provide information about the size of your prostate gland. When a rectal exam is performed, it should be done after the PSA level is drawn to avoid any effect on the results. Depending on the PSA results, you may need more tests, such as: A physical exam to check the size of your prostate gland, if not done as part of screening. Blood and imaging tests. A procedure to remove tissue samples from your prostate gland for testing (biopsy). This is the only way to know for certain if you have prostate cancer. What are the benefits of prostate cancer screening? Screening can help to identify cancer at an early stage, before symptoms start and when the cancer can be treated more easily. There is a small chance that screening may lower your risk of dying from prostate cancer. The chance is small because prostate cancer is a slow-growing cancer, and most men with prostate cancer from a different cause. What are the risks of prostate cancer screening? The main risk of prostate cancer screening is diagnosing and treating prostate cancer that would never have caused any symptoms or problems. This is called overdiagnosisand overtreatment. PSA screening cannot tell you if your PSA is high due to cancer or a different cause. A prostate biopsy is the only procedure to diagnose prostate cancer. Even the results of a biopsy may not tell you if your cancer needs to be treated. Slow-growing prostate cancer may not need any treatment other than monitoring, so diagnosing and treating it may cause unnecessary stress or other side effects. Questions to ask your health care provider When should I start prostate cancer screening? What is my risk for prostate cancer? How often do I need screening? What type of screening tests do I need? How do I get my test results? What do my results mean? Do I need treatment? Where to find more information The [place] [employer]: www.cancer.org [place] [employer]: www.auanet.org Contact a health care provider if: You have difficulty urinating. You have pain when you urinate or ejaculate. You have blood in your urine or semen. You have pain in your back or in the area of your prostate. Summary Prostate cancer is a common type of cancer in men. The prostate gland is located below the bladder and in front of the rectum. This gland adds fluid to semen during ejaculation. Prostate cancer screening may identify cancer at an early stage, when the cancer can be treated more easily and is less likely to have spread to other areas of the body. The prostate-specific antigen (PSA) test is the recommended screening test for prostate cancer, butit has associated risks. Discuss the risks and benefits of prostate cancer screening with your health care provider. If you are age 70 or older, the risks that screening can cause are greater than the benefits that it may provide. This information is not intended to replace advice given to you by your health care provider. Make sure you discuss any questions you have with your health care provider. Document Revised: 12/06/2021 Document Reviewed: 12/06/2021 [employer] Patient Education 2022 [employer]. 05/10/2023 11:11:23 Benign Prostatic Hyperplasia Benign Prostatic Hyperplasia Benign prostatic hyperplasia (BPH) is an enlarged prostate gland that is caused by the normal agingprocess. The prostate may get bigger as a man gets older. The condition is not caused by cancer. The prostate is a walnut-sized gland that is involved in the production of semen. It is located in front of the rectum and below the bladder. The bladder stores urine. The urethra carries stored urine ou t of the body. An enlarged prostate can press on the urethra. This can make it harder to pass urine. The buildup of urine in the bladder can cause infection. Back pressure and infection may progress to bladder damage and kidney (renal) failure. What are the causes? This condition is part of the normal aging process. However, not all men develop problems from thiscondition. If the prostate enlarges away from the urethra, urine flow will not be blocked. If it enlarges toward the urethra and compresses it, there will be problems passing urine. What increases the risk? This condition is more likely to develop in men older than 50 years. What are the signs or symptoms? Symptoms of this condition include: Getting up often during the night to urinate. Needing to urinate frequently during the day. Difficulty starting urine flow. Decrease in size and strength of your urine stream. Leaking (dribbling) after urinating. Inability to pass urine. This needs immediate treatment. Inability to completely empty your bladder. Pain when you pass urine. This is more common if there is also an infection. Urinary tract infection (UTI). How is this diagnosed? This condition is diagnosed based on your medical history, a physical exam, and your symptoms. Tests will also be done, such as: A post-void bladder scan. This measures any amount of urine that may remain in your bladder after you finish urinating. A digital rectal exam. In a rectal exam, your health care provider checks your prostate by putting a lubricated, gloved finger into your rectum to feel the back of your prostate gland. This exam detects the size of your gland and any abnormal lumps or growths. An exam of your urine (urinalysis). A prostate specific antigen (PSA) screening. This is a blood test used to screen for prostate cancer. An ultrasound. This test uses sound waves to electronically produce a picture of your prostate gland. Your health care provider may refer you to a specialist in kidney and prostate diseases (urologist). How is this treated? Once symptoms begin, your health care provider will monitor your condition (active surveillance or watchful waiting). Treatment for this condition will depend on the severity of your condition. Treatment may include: Observation and yearly exams. This may be the only treatment needed if your condition and symptoms are mild. Medicines to relieve your symptoms, including: ?Medicines to shrink the prostate. ?Medicines to relax the muscle of the prostate. Surgery in severe cases. Surgery may include: ?Prostatectomy. In this procedure, the prostate tissue is removed completely through an open incision or with a laparoscope or robotics. ?Transurethral resection of the prostate (TURP). In this procedure, a tool is inserted through the opening at the tip of the penis (urethra). It is used to cut away tissue of the inner core of the prostate. The pieces are removed through the same opening of the penis. This removes the blockage. ?Transurethral incision (TUIP). In this procedure, small cuts are made in the prostate. This lessens the prostate's pressure on the urethra. ?Transurethral microwave thermotherapy (TUMT). This procedure uses microwaves to create heat. The heat destroys and removes a small amount of prostate tissue. ?Transurethral needle ablation (TUNA). This procedure uses radio frequencies to destroy and remove a small amount of prostate tissue. ?Interstitial laser coagulation (ILC). This procedure uses a laser to destroy and remove a small amount of prostate tissue. ?Transurethral electrovaporization (TUVP). This procedure uses electrodes to destroy and remove a small amount of prostate tissue. ?Prostatic urethral lift. This procedure inserts an implant to push the lobes of the prostate away from the urethra. Follow these instructions at home: Take rojl-kat-jwaatww and prescription medicines only as told by your health care provider. Monitor your symptoms for any changes. Contact your health care provider with any changes. Avoid drinking large amounts of liquid before going to bed or out in public. Avoid or reduce how much caffeine or alcohol you drink. Give yourself time when you urinate. Keep all follow-up visits. This is important. Contact a health care provider if: You have unexplained back pain. Your symptoms do not get better with treatment. You develop side effects from the medicine you are taking. Your urine becomes very dark or has a bad smell. Your lower abdomen becomes distended and you have trouble passing urine. Get help right away if: You have a fever or chills. You suddenly cannot urinate. You feel light-headed or very dizzy, or you faint. There are large amounts of blood or clots in your urine. Your urinary problems become hard to manage. You develop moderate to severe low back or flank pain. The flank is the side of your body between the ribs and the hip. These symptoms may be an emergency. Get help right away. Call 911. Do not wait to see if the symptoms will go away. Do not drive yourself to the hospital. Summary Benign prostatic hyperplasia (BPH) is an enlarged prostate that is caused by the normal aging process. It is not caused by cancer. An enlarged prostate can press on the urethra. This can make it hard to pass urine. This condition is more likely to develop in men older than 50 years. Get help right away if you suddenly cannot urinate. This information is not intended to replace advice given to you by your health care provider. Make sure you discuss any questions you have with your health care provider. Document Revised: 12/29/2021 Document Reviewed: 12/29/2021 [employer] Patient Education 2022 [employer]ounder. Follow Up Care 04/12/2023 09:16:25 With:Daryl HAMILTON, LOGAN Villalpando, URO Address: When: Unknown Comments:Sched [facility]ine[facility] Bx [facility] Evaluation note* Encounter Date Diagnosis Assessment Notes Treatment Notes Treatment Clinical Notes Apr, Primary hypertension (ICD-10 - I10) [employer] Other [id number] Hospital Discharge instructions Patient Education 04/11/2023 12:30:37 Prostate Cancer Screening Prostate Cancer Screening Prostate cancer screening is testing that is done to check for the presence of prostate cancer in men. The prostate gland is a walnut-sized gland that is located below the bladder and in front of therectum in males. The function of the prostate is to add fluid to semen during ejaculation. Prostatecancer is one of the most common types of cancer in men. Who should have prostate cancer screening? Screening recommendations vary based on age and other risk factors, as well as between the professional organizations who make the recommendations. In general, screening is recommended if: You are age 50 to 70 and have an average risk for prostate cancer. You should talk with your healthcare provider about your need for screening and how often screening should be done. Because most prostate cancers are slow growing and will not cause , screening in this age group is generally reserved for men who have a 10- to 15-year life expectancy. You are younger than age 50, and you have these risk factors: ?Having a father, brother, or uncle who has been diagnosed with prostate cancer. The risk is higherif your family member's cancer occurred at an early age or if you have multiple family members withprostate cancer at an early age. ?Being a male who is Black or is of [place] or sub-Saharan descent. In general, screening is not recommended if: You are younger than age 40. You are between the ages of 40 and 49 and you have no risk factors. You are 70 years of age or older. At this age, the risks that screening can cause are greater than the benefits that it may provide. If you are at high risk for prostate cancer, your health care provider may recommend that you have screenings more often or that you start screening at a younger age. How is screening for prostate cancer done? The recommended prostate cancer screening test is a blood test called the prostate-specific antigen(PSA) test. PSA is a protein that is made in the prostate. As you age, your prostate naturally produces more PSA. Abnormally high PSA levels may be caused by: Prostate cancer. An enlarged prostate that is not caused by cancer (benign prostatic hyperplasia, or BPH). This condition is very common in older men. A prostate gland infection (prostatitis) or urinary tract infection. Certain medicines such as male hormones (like testosterone) or other medicines that raise testosterone levels. A rectal exam may be done as part of prostate cancer screening to help provide information about the size of your prostate gland. When a rectal exam is performed, it should be done after the PSA level is drawn to avoid any effect on the results. Depending on the PSA results, you may need more tests, such as: A physical exam to check the size of your prostate gland, if not done as part of screening. Blood and imaging tests. A procedure to remove tissue samples from your prostate gland for testing (biopsy). This is the only way to know for certain if you have prostate cancer. What are the benefits of prostate cancer screening? Screening can help to identify cancer at an early stage, before symptoms start and when the cancer can be treated more easily. There is a small chance that screening may lower your risk of dying from prostate cancer. The chance is small because prostate cancer is a slow-growing cancer, and most men with prostate cancer from a different cause. What are the risks of prostate cancer screening? The main risk of prostate cancer screening is diagnosing and treating prostate cancer that would never have caused any symptoms or problems. This is called overdiagnosisand overtreatment. PSA screening cannot tell you if your PSA is high due to cancer or a different cause. A prostate biopsy is the only procedure to diagnose prostate cancer. Even the results of a biopsy may not tell you if your cancer needs to be treated. Slow-growing prostate cancer may not need any treatment other than monitoring, so diagnosing and treating it may cause unnecessary stress or other side effects. Questions to ask your health care provider When should I start prostate cancer screening? What is my risk for prostate cancer? How often do I need screening? What type of screening tests do I need? How do I get my test results? What do my results mean? Do I need treatment? Where to find more information The [place] [employer]: www.cancer.org [place] [employer]: www.auanet.org Contact a health care provider if: You have difficulty urinating. You have pain when you urinate or ejaculate. You have blood in your urine or semen. You have pain in your back or in the area of your prostate. Summary Prostate cancer is a common type of cancer in men. The prostate gland is located below the bladder and in front of the rectum. This gland adds fluid to semen during ejaculation. Prostate cancer screening may identify cancer at an early stage, when the cancer can be treated more easily and is less likely to have spread to other areas of the body. The prostate-specific antigen (PSA) test is the recommended screening test for prostate cancer, butit has associated risks. Discuss the risks and benefits of prostate cancer screening with your health care provider. If you are age 70 or older, the risks that screening can cause are greater than the benefits that it may provide. This information is not intended to replace advice given to you by your health care provider. Make sure you discuss any questions you have with your health care provider. Document Revised: 12/06/2021 Document Reviewed: 12/06/2021 [employer] Patient Education 2022 Sounder. Follow Up Care 03/16/2023 16:12:09 With:THERESA ARRIOLA PA-C, URL Address: [facility] [place] [place] [address] [phone] When: Unknown Comments:f/u with MD in 1 month w/ PSA and Select [facility] 10-10-2023 Evaluation note* Encounter Date Diagnosis Assessment Notes Treatment Notes Treatment Clinical Notes Mar, Primary hypertension (ICD-10 - I10) [employer] Other 06-27-2023 Hospital Discharge instructions Patient Education 12/20/2022 10:41:36 Prostate Cancer Screening Prostate Cancer Screening Prostate cancer screening is testing that is done to check for the presence of prostate cancer in men. The prostate gland is a walnut-sized gland that is located below the bladder and in front of therectum in males. The function of the prostate is to add fluid to semen during ejaculation. Prostatecancer is one of the most common types of cancer in men. Who should have prostate cancer screening? Screening recommendations vary based on age and other risk factors, as well as between the professional organizations who make the recommendations. In general, screening is recommended if: You are age 50 to 70 and have an average risk for prostate cancer. You should talk with your healthcare provider about your need for screening and how often screening should be done. Because most prostate cancers are slow growing and will not cause , screening in this age group is generally reserved for men who have a 10- to 15-year life expectancy. You are younger than age 50, and you have these risk factors: ?Having a father, brother, or uncle who has been diagnosed with prostate cancer. The risk is higherif your family member's cancer occurred at an early age or if you have multiple family members withprostate cancer at an early age. ?Being a male who is Black or is of [place] or sub-Saharan descent. In general, screening is not recommended if: You are younger than age 40. You are between the ages of 40 and 49 and you have no risk factors. You are 70 years of age or older. At this age, the risks that screening can cause are greater than the benefits that it may provide. If you are at high risk for prostate cancer, your health care provider may recommend that you have screenings more often or that you start screening at a younger age. How is screening for prostate cancer done? The recommended prostate cancer screening test is a blood test called the prostate-specific antigen(PSA) test. PSA is a protein that is made in the prostate. As you age, your prostate naturally produces more PSA. Abnormally high PSA levels may be caused by: Prostate cancer. An enlarged prostate that is not caused by cancer (benign prostatic hyperplasia, or BPH). This condition is very common in older men. A prostate gland infection (prostatitis) or urinary tract infection. Certain medicines such as male hormones (like testosterone) or other medicines that raise testosterone levels. A rectal exam may be done as part of prostate cancer screening to help provide information about the size of your prostate gland. When a rectal exam is performed, it should be done after the PSA level is drawn to avoid any effect on the results. Depending on the PSA results, you may need more tests, such as: A physical exam to check the size of your prostate gland, if not done as part of screening. Blood and imaging tests. A procedure to remove tissue samples from your prostate gland for testing (biopsy). This is the only way to know for certain if you have prostate cancer. What are the benefits of prostate cancer screening? Screening can help to identify cancer at an early stage, before symptoms start and when the cancer can be treated more easily. There is a small chance that screening may lower your risk of dying from prostate cancer. The chance is small because prostate cancer is a slow-growing cancer, and most men with prostate cancer from a different cause. What are the risks of prostate cancer screening? The main risk of prostate cancer screening is diagnosing and treating prostate cancer that would never have caused any symptoms or problems. This is called overdiagnosisand overtreatment. PSA screening cannot tell you if your PSA is high due to cancer or a different cause. A prostate biopsy is the only procedure to diagnose prostate cancer. Even the results of a biopsy may not tell you if your cancer needs to be treated. Slow-growing prostate cancer may not need any treatment other than monitoring, so diagnosing and treating it may cause unnecessary stress or other side effects. Questions to ask your health care provider When should I start prostate cancer screening? What is my risk for prostate cancer? How often do I need screening? What type of screening tests do I need? How do I get my test results? What do my results mean? Do I need treatment? Where to find more information The [place] [employer]: www.cancer.org [place] [employer]: www.auanet.org Contact a health care provider if: You have difficulty urinating. You have pain when you urinate or ejaculate. You have blood in your urine or semen. You have pain in your back or in the area of your prostate. Summary Prostate cancer is a common type of cancer in men. The prostate gland is located below the bladder and in front of the rectum. This gland adds fluid to semen during ejaculation. Prostate cancer screening may identify cancer at an early stage, when the cancer can be treated more easily and is less likely to have spread to other areas of the body. The prostate-specific antigen (PSA) test is the recommended screening test for prostate cancer, butit has associated risks. Discuss the risks and benefits of prostate cancer screening with your health care provider. If you are age 70 or older, the risks that screening can cause are greater than the benefits that it may provide. This information is not intended to replace advice given to you by your health care provider. Make sure you discuss any questions you have with your health care provider. Document Revised: 12/06/2021 Document Reviewed: 12/06/2021 [employer] Patient Education 2022 Sounder. Follow Up Care 10/03/2022 14:27:57 With:FLAKO ELLIOTT, THERESA Merida, URL Address: [address] [address] When: Unknown Comments:Sched Select MDX and MRI of Prostate. [facility] 06-20-2023 Evaluation note* Encounter Date Diagnosis Assessment Notes Treatment Notes Treatment Clinical Notes Nov, Cigarette nicotine dependence in remission (ICD-10 - F17.211) Started at age 19, quit age 66, 1ppd. LDCT w/o nodules - 11/2022 [employer] Other 06-19-2023 Evaluation note* Encounter Date Diagnosis Assessment Notes Treatment Notes Treatment Clinical Notes Nov, Simple chronic bronchitis (ICD-10 - J41.0) Nov, Cigarette nicotine dependence in remission (ICD-10 - F17.211) Started at age 19, quit age 66, 1ppd. LDCT w/o nodules - 11/2022 [employer] Other 05-31-2023 Evaluation note* Encounter Date Diagnosis Assessment Notes Treatment Notes Treatment Clinical Notes October, Primary hypertension (ICD-10 - I10) This patient is instructed to consume a healthy, low-fat, low-salt diet. They are also encouraged to continue exercise to achieve/maintain a normal BMI.bpp Patient is instructed on home BP measurements: - rest for 5 minutes w/o talking- positioned w/ feet on floor and arm supported- average best 2/3 readings w/ goal < 135-85 October, Wellness examination (ICD-10 - Z00.00) Healthy diet and exercise. Reviewed age-appropriate preventive testing recommended. October, Simple chronic bronchitis (ICD-10 - J41.0) Continue abstinence from tobacco. No ER visits since last OV GARCÍA as needed, rarely used October, Hyperlipidemia type II (ICD-10 - E78.01) Instructed on diet and exercise with continued statin therapy.Discussed the beneficial effects of lowering cholesterol in reducing the risk for cerebrovascular and cardiovascular disease. October, Gastroesophageal reflux disease with esophagitis without hemorrhage (ICD-10 - K21.00) Diet instructions: Smaller portions, avoid eating and laying flat, avoid eating or drinking prior to bedtime. Weight loss. October, Cigarette nicotine dependence in remission (ICD-10 - F17.211) Started at age 19, quit age 66, 1ppd. Yearly LDCT October, Screening PSA (prostate specific antigen) (ICD-10 - Z12.5) Yearly MARIZA and PSA, f/u Urology [employer] Other 03-08-2023 Evaluation note* Encounter Date Diagnosis Assessment Notes Treatment Notes Treatment Clinical Notes Aug, Chronic obstructive pulmonary disease with (acute) lower respiratory infection (ICD-10 - J44.0) Finish antibiotics and monitor for recurrent fever/chills. Aug, Chronic obstructive pulmonary disease with (acute) exacerbation (ICD-10 - J44.1) Finish Prednisone. Continue MDI every 4 hours as needed. Needs yearly LDCT lungs for screening Aug, Essential hypertension (ICD-10 - I10) This patient is instructed to consume a healthy, low-fat, low-salt diet. They are also encouraged to continue exercise to achieve/maintain a normal BMI. Aug, Pneumonia of right lower lobe due to infectious organism (ICD-10 - J18.9) Finish antibiotics and Prednisone. f/u CXR in month to ensure clearance of infiltrate Aug, Elevated liver enzymes (ICD-10 - R74.8) May be related to pneumonia. Recheck in 4wks. r/o NAFLD, VIDAL r/o hemachromatosis, Autoimmune hepatitis, Hepatitis, alcohol use healthy, low fat diet along w/ exercise and weight loss Aug, Cigarette nicotine dependence in remission (ICD-10 - F17.211) Continue abstinence [facility] Other 05-03-2022 Hospital Discharge instructions Patient Education 10/26/2021 09:45:22 Benign Prostatic Hyperplasia Benign Prostatic Hyperplasia Benign prostatic hyperplasia (BPH) is an enlarged prostate gland that is caused by the normal agingprocess and not by cancer. The prostate is a walnut-sized gland that is involved in the production of semen. It is located in front of the rectum and below the bladder. The bladder stores urine and the urethra is the tube that carries the urine out of the body. The prostate may get bigger as a man gets older. An enlarged prostate can press on the urethra. This can make it harder to pass urine. The build-up of urine in the bladder can cause infection. Back pressure and infection may progress to bladder damage and kidney (renal) failure. What are the causes? This condition is part of a normal aging process. However, not all men develop problems from this condition. If the prostate enlarges away from the urethra, urine flow will not be blocked. If it enlarges toward the urethra and compresses it, there will be problems passing urine. What increases the risk? This condition is more likely to develop in men over the age of 50 years. What are the signs or symptoms? Symptoms of this condition include: Getting up often during the night to urinate. Needing to urinate frequently during the day. Difficulty starting urine flow. Decrease in size and strength of your urine stream. Leaking (dribbling) after urinating. Inability to pass urine. This needs immediate treatment. Inability to completely empty your bladder. Pain when you pass urine. This is more common if there is also an infection. Urinary tract infection (UTI). How is this diagnosed? This condition is diagnosed based on your medical history, a physical exam, and your symptoms. Tests will also be done, such as: A post-void bladder scan. This measures any amount of urine that may remain in your bladder after you finish urinating. A digital rectal exam. In a rectal exam, your health care provider checks your prostate by putting a lubricated, gloved finger into your rectum to feel the back of your prostate gland. This exam detects the size of your gland and any abnormal lumps or growths. An exam of your urine (urinalysis). A prostate specific antigen (PSA) screening. This is a blood test used to screen for prostate cancer. An ultrasound. This test uses sound waves to electronically produce a picture of your prostate gland. Your health care provider may refer you to a specialist in kidney and prostate diseases (urologist). How is this treated? Once symptoms begin, your health care provider will monitor your condition (active surveillance or watchful waiting). Treatment for this condition will depend on the severity of your condition. Treatment may include: Observation and yearly exams. This may be the only treatment needed if your condition and symptoms are mild. Medicines to relieve your symptoms, including: ?Medicines to shrink the prostate. ?Medicines to relax the muscle of the prostate. Surgery in severe cases. Surgery may include: ?Prostatectomy. In this procedure, the prostate tissue is removed completely through an open incision or with a laparoscope or robotics. ?Transurethral resection of the prostate (TURP). In this procedure, a tool is inserted through the opening at the tip of the penis (urethra). It is used to cut away tissue of the inner core of the prostate. The pieces are removed through the same opening of the penis. This removes the blockage. ?Transurethral incision (TUIP). In this procedure, small cuts are made in the prostate. This lessens the prostate's pressure on the urethra. ?Transurethral microwave thermotherapy (TUMT). This procedure uses microwaves to create heat. The heat destroys and removes a small amount of prostate tissue. ?Transurethral needle ablation (TUNA). This procedure uses radio frequencies to destroy and remove a small amount of prostate tissue. ?Interstitial laser coagulation (ILC). This procedure uses a laser to destroy and remove a small amount of prostate tissue. ?Transurethral electrovaporization (TUVP). This procedure uses electrodes to destroy and remove a small amount of prostate tissue. ?Prostatic urethral lift. This procedure inserts an implant to push the lobes of the prostate away from the urethra. Follow these instructions at home: Take tmpy-heg-efiwdyy and prescription medicines only as told by your health care provider. Monitor your symptoms for any changes. Contact your health care provider with any changes. Avoid drinking large amounts of liquid before going to bed or out in public. Avoid or reduce how much caffeine or alcohol you drink. Give yourself time when you urinate. Keep all follow-up visits as told by your health care provider. This is important. Contact a health care provider if: You have unexplained back pain. Your symptoms do not get better with treatment. You develop side effects from the medicine you are taking. Your urine becomes very dark or has a bad smell. Your lower abdomen becomes distended and you have trouble passing your urine. Get help right away if: You have a fever or chills. You suddenly cannot urinate. You feel lightheaded, or very dizzy, or you faint. There are large amounts of blood or clots in the urine. Your urinary problems become hard to manage. You develop moderate to severe low back or flank pain. The flank is the side of your body between the ribs and the hip. These symptoms may represent a serious problem that is an emergency. Do not wait to see if the symptoms will go away. Get medical help right away. Call your local emergency services (911 in the [place] Do not drive yourself to the hospital. Summary Benign prostatic hyperplasia (BPH) is an enlarged prostate that is caused by the normal aging process and not by cancer. An enlarged prostate can press on the urethra. This can make it hard to pass urine. This condition is part of a normal aging process and is more likely to develop in men over the age of 50 years. Get help right away if you suddenly cannot urinate. This information is not intended to replace advice given to you by your health care provider. Make sure you discuss any questions you have with your health care provider. Document Released: 06/12/2006 Document Revised: 05/07/2019 Document Reviewed: 07/17/2017 [employer] Patient Education 2020 [employer]. Follow Up Care 10/22/2020 09:07:58 With:Erlin Alonso MD, Daniel Tse URO Address: [facility] [address], [place] [address]- When:10/26/2022 Comments:with PSA [facility] 02-12-2022 Evaluation note* Encounter Date Diagnosis Assessment Notes Treatment Notes Treatment Clinical Notes Jul, Contact with and (suspected) exposure to other viral communicable diseases (ICD-10 - Z20.828) Advised patient that rapid COVID antigen test and Influenza A/B test was negative today in office. Offered patient COVID PCR test, patient declines at this time. Encouraged supportive care, including increasing fluids, rest, OTC cold medications such as Cordicidin HBP, Tylenol/Motrin, cool mist humidification, throat lozenges. Will send in rx of Zofran to use as needed. Patient to follow up with PCP if symptoms do not improve within 48 hours. Immediate evaluation in ER for fevers not breaking with antipyretic, chest pain, shortness of breath, signs of dehydration, or if any new or concerning symptoms arise. Patient verbalizes understanding and is agreeable with treatment plan. Patient left in stable condition Jul, Other Additional time spent conducting pre-visit phone call, screening for symptoms, instructions on social distancing, application and removal of PPE, and cleaning of examination room, equipment and supplies was preformed. Patient education given for testing methodology and results. Patient care instructions given in writting by [facility] document [employer] Other 11-29-2021 Evaluation note* Encounter Date Diagnosis Assessment Notes Treatment Notes Treatment Clinical Notes Apr, Contact with and (suspected) exposure to other viral communicable diseases (ICD-10 - Z20.828) Apr, COVID-19 (ICD-10 - U07.1) Today you tested positive for the COVID virus. This mean you need to follow all CDC quarant[facility] guidelines [email or web address] It is important to rest, increase fluids, and stay at home. Contact PCP and inform them of results. Medications like Mucinex, Cepacol, Tylenol, saline nasal spray are over the counter medications that can help with the symptoms. Current guidelines include staying home for at least 10 days, having no fever above 100.4 for 24 hours without medication and having significant improvement of symptoms before you are allowed to stop your quarantine. Contact primary care and ask for guidance is essential to follow up Apr, Bronchitis (ICD-10 - J40) Bronchitis is inflammation of airways, it is not caused from bacteria. Antibiotics will not treat this illness. Take medications as directed. Rest and increase fluid intake. Take meds with food to prevent stomach upset. Use inhaler as needed for SOB. Follow up with primary care provider if symptoms do not improve with treatment plan, although it may take a few weeks for the cough to go away. Smoking increases risk of developing bronchitis. Smoking while sick will cause symptoms to worsen and it will take longer to get better Apr, Other Additional time spent conducting pre-visit phone call, screening for symptoms, instructions on social distancing, application and removal of PPE, and cleaning of examination room, equipment and supplies was preformed. Patient education given for testing methodology and results. Patient care instructions given in writting by [facility] document. [employer] Other Evaluation + Plan note Future Appointments Appointment Date:11/01/2022 08:15:00 AM Scheduled Provider:Erlin Alonso MD, Daniel Tse Location:[facility] Appointment Type:URO Office Visit Diagnostic Tests Pending * PSA Total 10/26/21 [facility] evaluation + Plan note Future Appointments Appointment Date:04/28/2023 08:15:00 AM Scheduled Provider:Meghan Brito MD Location:[facility] Appointment Type:URO Office Visit Diagnostic Tests Pending * PSA Total 04/11/23 [facility] evaluation + Plan note Future Appointments Appointment Date:06/06/2023 02:30:00 PM Scheduled Provider: Location:[facility] Appointment Type:Surgery FT Appointment Date:06/14/2023 10:30:00 AM Scheduled Provider:Meghan Brito MD Location:[facility] Appointment Type:URO Office Visit [facility] evaluation noteNo assessment information available [facility] Work Phone: Evaluation noteNo InformationNort [employer] Other Histypi general Narrative - Reported* Type Description Date Medical History high blood pressure Medical History high cholesterol [employer] Other [facility] general Narrative - Reported* Type Description Date Medical History high blood pressure Medical History high cholesterol Medical History Benign prostatic hyp erplasia with lower urinary tract symptoms Medical History Lipoma of back Medical History Nicotine dependence, cigarettes, in remission Medical History Anemia, unspecified type Medical History Hyperlipidemia type II Medical History Essential hypertension Medical History Hyponatremia Medical History Gastroesophageal ref lux disease with esophagitis without hemorrhage Surgical History COLONOSCOPY 2020 Surgical History TRUS WITH BIOPSY 2019 Surgical History LEFT HERNIA 1989 Hospitalization History SEE SURGICAL [employer] Other [facility] general Narrative - Reported* Type Description Date Medical History high blood pressure Medical History high cholesterol Medical History Benign prostatic hyp erplasia with lower urinary tract symptoms Medical History Lipoma of back Medical History Nicotine dependence, cigarettes, in remission Medical History Anemia, unspecified type Medical History Hyperlipidemia type II Medical History Essential hypertension Medical History Hyponatremia Medical History Gastroesophageal ref lux disease with esophagitis without hemorrhage Medical History COPD Surgical History COLONOSCOPY 2020 Surgical History TRUS WITH BIOPSY 2019 Surgical History LEFT HERNIA 1989 Hospitalization History SEE SURGICAL [place] Other Hospital course Narrative No data available for this section [facility] progress note No data available for this section [facility] Summary Purpose Family History No Family History Records Found Relationship Condition Age at Onset Recorded Date/T sharona Not Specified Diabetes mellitus Unknown father Myocardial infarction Unknown sister Cerebrovascular accident (CVA) Unknown sister Diabetes mellitus Unknown Advance Directives No Advanced Directives Records Found Advance Directive Response Recorded Date/ Time Advance Directives No March 27, 2020 2:53pm Chief Complaint and Reason for Visit Chief Complaint N40.1 R97.20 Additional Source Comments REASON FOR VISIT (unrecogniz ed section and content) #31 BLACK DAYNA, COUGH, CON GESTION X5 DAYS, COVID Provider Visit#5 BLACK ALVARES,H/A, CHILLS, FEVER X 2 DAYSTBH FOLLOW UPWELLNESSNo InformationNo InformationrefillRefillCT results/ECHO (unrecognized sect ion and content) No Status Records FoundNo Status Records FoundNo Status Records FoundNo Status Records Found INFORMATION SOURCE (unrecogn ized section and content) DATE CREATED AUTHOR 11/08/2022 [facility] DATE CREATED AUTHOR AUTHOR'S ORGANIZ ATION 04/13/2023 [facility] DATE CREATED AUTHOR AUTHOR'S ORGANIZ ATION 06/13/2023 [facility] DATE CREATED AUTHOR AUTHOR'S ORGANIZ ATION 06/13/2023 [facility] Patient Care team informatio n (unrecognized section and content) Team Status: Active Member Role Status Dates Gio Jasso DO Primary Care Provider Active Team Status: Inactive Member Role Status Dates Gio Jasso DO Primary Care Provider Active Theresa Arriola PA-C Attending Provider Active Goals (unrecognized section and content) Goals may be documented in a n alternate section FOR RECORDS PERTAINING TO PATIENTS WHO ARE OR HAVE BEEN ENROLLED IN A CHEMICAL DEPENDENCY/SUBSTANCEABUSE PROGRAM, SOME INFORMATION MAY BE OMITTED. This clinical summary was aggregated from multiple sources. Caution should be exercised in using it in the provision of clinical care. This summary normalizes information from multiple sources, and as a consequence, information in this document may materially change the coding, format and clinical context of patient data. In addition, data may be omitted in some cases. CLINICAL DECISIONS SHOULD BE BASED ON THE PRIMARY CLINICAL RECORDS. [facility] [employer] [facility]. provides no warranty or guarantee of the accuracy or completeness of information in this document.
== END 2023-06-01 07:36 | disposition home or self-care (01) ==
LOC: CARD 07:35
PROVIDERS: PCP Internal Medicine; Visit Provider Internal Medicine
DX: R01.1 Cardiac murmur, unspecified (principal); F17.211 Nicotine dependence, cigarettes, in remission
CPT/HCPCS: 71271; 93306; 93356

== ENCOUNTER 2023-06-13 13:13 | Outpatient (OUT) | payer MEDICARE, SELFPAY ==
[2023-06-13 08:59] LABS: Hemoglobin 12.8 g/dL (14.0-18.0)
--- NOTE | 2023-06-13 09:38 | RT_ITS ---
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 It is impossible to adequately evaluate the flow volume loop due to excessive variablity such as might be produced by coughing. The MVV is within normal limits. The increased airway resistance and decreased specific conductance indicate a central airway disease. The SVC is reduced, but the TLC is within normal limits. Following administration of bronchodilators, there is no significant response. The reduced diffusing capacity indicates a mild loss of functional alveolar capillary surface. Spirometry: FVC decreased 66% FEV1 decreased 58% FEV1/FVC decreased 66 actual FEF 25-75% decreased 35% MVV normal 88% Volume: RV increased 125% TLC normal 90% RV/TLC increased 136% Diffusion: decreased 65% Impression: Spirometry indicates moderate obstructive defect with no significant response to bronchodilators Bronchodilator response of 48% in smaller, peripheral airways Lung volumes demostrate air trapping Decreased diffusion capacity consistent with emphysema Electronically Signed On 06-18-2023 11:06:57 EST by GOLDY CAVANAUGH
[2023-06-13] MEDS: ALBUTEROL SULFATE 2.5 MG/3 ML VIAL NEB IH (09:45)
== END 2023-06-13 13:14 | disposition home or self-care (01) ==
LOC: CARD 06-14 13:13
PROVIDERS: PCP Internal Medicine; Visit Provider Internal Medicine
DX: R06.09 Other forms of dyspnea (principal); F17.211 Nicotine dependence, cigarettes, in remission; J41.0 Simple chronic bronchitis
CPT/HCPCS: 36415; 85018; 94060; 94726; 94729

== ENCOUNTER 2023-07-05 07:14 | Outpatient (OUT) | payer MEDICARE, SELFPAY ==
--- NOTE | 2023-07-05 | CT_ITS ---
[address] [address] Patient Name: RUSSELL SANCHEZ MRN: [id number] date: 1955 Sex: M Assigned Patient Location: LAB Current Patient Location: LAB Accession/Order Number: [id number] Exam Date: 07/05/2023 07:40 Report Date: 07/05/2023 09:11 At the request of: RICHARD GIRON Procedure: CT abdomen pelvis wo/w con CT ABDOMEN AND PELVIS WITH AND WITHOUT CONTRAST, 07/05/2023. HISTORY: Hematuria. COMPARISON: None. TECHNIQUE: Pre and postcontrast axial CT images obtained through the abdomen and pelvis. Postcontrast images obtained as CT urogram. Reconstructions were obtained in the sagittal and coronal planes. Dose reduction techniques were achieved by using automated exposure control and/or adjustment of mA and/or kV according to patient size and/or use of iterative reconstruction technique. FINDINGS: Lung bases clear. No pleural effusion. Heart size is normal. No pericardial effusion. Liver normal. No abnormal bile duct dilatation. Cholelithiasis. There is a calcified gallstone measuring approximately 6 mm. No gallbladder wall thickening. Common bile duct is normal in size. Pancreas normal. Spleen normal. Adrenal glands normal. Right kidney is normal in size. No kidney stone on the right. The renal calyces and renal pelvis on the right are normal. Right ureter normal. No kidney stones on the left. There is a simple cyst measuring 4.4 cm. No solid renal mass on the left. The renal calyces and renal pelvis are normal. Left ureter normal. There is calcified plaque throughout the abdominal aorta without aneurysmal enlargement. Inferior vena cava normal in size. Stomach normal. Duodenum normal. No bowel obstruction. There is no small bowel wall thickening. Normal appendix. No abnormal thickening or inflammation of the colon. There are a few diverticula along the sigmoid colon without acute inflammation. In the pelvis, prostate gland is severely enlarged. The prostate gland measures 5.4 x 5.7 x 6.8 cm. The prostate gland protrudes into the base of the bladder. There is trabecular thickening of the bladder wall. No focal bladder wall mass identified. There are a few small bladder diverticula. The rectum is normal. There is no free fluid in the pelvis. There are a few small nonspecific pelvic sidewall lymph nodes. A pelvic sidewall lymph node on the right measures 1.0 x 1.7 cm. A pelvic lymph node on the left side measures 1.2 x 1.6 cm. There are a few additional pelvic lymph nodes on the left. No acute compression fracture. No suspicious osseous lesion. CT/CT abdomen pelvis wo/w con IMPRESSION: 1. No kidney stones. No hydronephrosis. 2. There is a simple cyst in the left kidney measuring 4.4 cm. There are no solid renal masses. The renal calyces and renal pelvis are normal. Ureters are normal. 3. Prostate gland is severely enlarged and protrudes into the base of the bladder. There is some trabecular thickening of the bladder wall and a few small bladder wall diverticula as a result of the enlarged prostate gland. No focal bladder mass identified. Recommend correlating with PSA. There are a few borderline enlarged pelvic lymph nodes bilaterally. 4. Cholelithiasis. Mild diverticulosis without acute inflammation. Electronically authenticated by: RUSSELL ROMERO Date: 07/05/2023 09:11
--- OUTSIDE RECORDS SUMMARY | 2023-07-05 07:17 | XMS_ITS | CCD ---
Author Name Unknown Address [address] [place] [address] Organization [facility] Care Team Providers Care Calibrator Barometers Name Role Phone GIO JASSO Primary Care Physician Sybil Lee Unavailable Gina Starks Unavailable Gio Jasso Unavailable MAO, DR POWERS Admitting Unavailable BALL, DR POWERS Attending Unavailable BALL, DR POWERS Consulting Unavailable BALL, DR POWERS Primary Care Unavailable BALL, DR POWERS Admitting Unavailable BALL, DR POWERS Primary Care Unavailable BALL, DR POWERS Attending Unavailable BALL, DR POWERS Consulting Unavailable BALL, DR POWERS Attending Unavailable BALL, DR POWERS Consulting Unavailable BALL, DR POWERS Primary Care Unavailable BALL, DR POWERS Admitting Unavailable MCKENZIE, ALEXA Consulting Unavailable BALL, DR POWERS Admitting Unavailable [...] Unavailable Mao, DO Powers Primary Care Provider EARL Arriola Attending Provider Theresa Arriola Attending Unavailable Theresa Arriola Admitting Unavailable Gio Jasso Primary Care Unavailable DUY GALLEGOS MD Attending Unavailable EARL ARRIOLA Attending Unavailab Meghan Quiroz Attending Unavailable EARL ARRIOLA Attending Unavailab Meghan Quiroz Attending Unavailable Humberto BELTRAN Attending Unavailable Meghan Brito Attending Meghan Bustillos Referring Meghan Bustillos Admitting Meghan Bustillos Attending Meghan Bustillos Admitting Unavailable Meghna Brito Attending Meghan Bustillos Attending Unavailable Meghan Brito Attending Unavailable Meghan Brito Attending Unavailable Meghan Brito Attending Unavailable Allergies Allergy Classification Reported Allergen(s) Allergy Type Date of Onset Reaction(s) Facility (15 sources) Cephalexin; Translations: [cephalexin] Drug Allergy 0 Unknown (qualifier value), Dyspnea (finding) [facility] Other (16 sources) Penicillins; Translations: [penicillins] Drug allergy 6 Unknown (qualifier value), Dyspnea (finding) [facility] (2 sources) Penicillin V Drug Allergy rash/cough [facility] Other (13 sources) Cephalexin; Translations: [Keflex] Drug Allergy 6 rash/cough [facility] Repository (11 sources) Penicillin Drug Allergy rash/cough [facility] Other (7 sources) Keflex *CEPHALOSPORINS * Propensity to adverse reactions 8 Unknown [facility] Other (2 sources) Penicillin G Benzathine & Proc Drug allergy 8 Unknown [facility] Other (2 sources) patient allergy list reviewed by nurse or physicia Propensity to adverse reactions 8 Comment:Done [facility] Other (1 source) Cephalexin Drug Allergy 0 [facility] Repository Medications Current Medications Medication Drug Class(es) Dates Sig (Normalized) Sig (Original) [id number] actuat albuterol 0.09 mg/actuat metered dose inhaler (20 sources) beta2-Adrenergic Agonist Start: 05-24-2021 take 2 [...] every 4 hrs as needed Aug, Active 120 actuat albuterol 0.1 mg/actuat / ipratropium bromide 0.02 mg/actuat inhalation spray (1 source) Anticholinergic, beta2-Adrenergic Agonist Start: 06-22-2023 take 20-100 ug by inhalation four times daily Combivent Respimat 20-100 MCG/ACT 1 puff Inhalation bid, may increase to qid if needed. for 30 days May, Active 24 hr alfuzosin hydrochloride 10 mg extended release oral tablet (16 sources) alpha-Adrenergic Mary Start: 01-30-2023 take 1 tablet by mouth once daily alfuzosin 10 mg ER Tab 10 mg = 1 tab(s), Oral, Daily, # 30 tab(s), Refills(s) 5, Pharmacy: [id number], 180, cm, 12/20/22 10:13:00 EDT, Height/Length Dosing, 102.5, kg, 12/20/22 10:13:00 EDT, Weight Dosing Start Date: 01/30/23 Status: Ordered Start: 07-14-2022 take 1 tablet by chris th once daily alfuzosin 10 mg ER Tab 10 mg = 1 tab(s), Oral, Daily, # 30 tab(s), Refills(s) 5, Pharmacy: [id number], 180, cm, 10/26/21 9:12:00 EDT, Height/Length Dosing, 95.2, kg, 10/26/21 9:12:00 EDT, Weight Dosing Start Date: 07/14/22 Status: Ordered Start: 07-08-2021 take 1 tablet by chris once daily alfuzosin 10 mg ER Tab 10 mg = 1 tab(s), Oral, Daily, # 30 tab(s), Refills(s) 11, [facility] 180, cm, 07/08/21 15:57:00 EST, Height/Length Dosing, 95.2, kg, 07/08/21 15:57:00 EST, Weight Dosing Start Date: 07/08/21 Status: Ordered azithromycin 250 mg oral tablet (1 source) Macrolide Antimicrobial Start: 08-31-2022 Azithromycin 250 MG as directed Orally daily for 5 days Aug, Active carvedilol 6.25 mg oral tablet (20 sources) alpha-Adrenergic Mary, beta-Adrenergic Mary Start: 03-22-2019 take 1 tablet by mouth twice daily carvedilol 6.25 mg Tab 6.25 mg = 1 tab(s), Oral, BID, # 60 tab(s), Refills(s) 0 Start Date: 03/22/19 Status: Ordered Carvedilol Activ e ciprofloxacin 500 mg oral tablet (4 sources) Quinolone Antimicrobial Start: 06-06-2023 take 1 [...] day(s), # 2 tab(s), Refills(s) 0, Pharmacy: [id number], 180, cm, 05/10/23 10:56:00 EST, Height/Length Dosing, 102, kg, 05/10/23 10:56:00 EST, Weight Dosing Start Date: 05/10/23 Stop Date: 05/11/23 Status: Ordered diazePAM 10 mg oral tablet (4 sources) Benzodiazepine Start: 05-10-2023 Valium 10 mg T ab 10 mg = 1 tab(s), Oral, Once, take 30 minutes prior to procedure, # 1 tab(s), Refills(s) 0, Pharmacy: [id number], 180, cm, 05/10/23 10:56:00 EST, Height/Length Dosing, 102, kg, 05/10/23 10:56:00 EST, Weight Dosing Start Date: 05/10/23 Status: Ordered lisinopril 40 mg oral tablet (20 sources) Angiotensin Converting Enzyme Inhibitor Start: 03-22-2019 take 1 mg by mouth once daily lisinopril 40 mg Tab mg tab(s), Oral, Daily, Refills(s) 0 Start Date: 03/22/19 Status: Ordered Lisinopril Activ e 10 actuat olodaterol 0.0025 mg/actuat / tiotropium 0.0025 mg/actuat inhalation spray (1 source) Anticholinergic, beta2-Adrenergic Agonist Start: 06-21-2023 Stiolto Respimat 2.5-2.5 MCG/ACT 2 puffs Inhalation Once a day for 30 days d/c Anoro Rx May, Active rosuvastatin calcium 20 mg oral tablet (15 sources) HMG-CoA Reductase Inhibitor Start: 12-16-2020 take [...] MG PO Daily December 16, 2020 12:00am 30 actuat umeclidinium 0.0625 mg/actuat / vilanterol 0.025 mg/actuat dry powder inhaler (1 source) Anticholinergic, beta2-Adrenergic Agonist Start: 06-20-2023 take 1 puff(s) by inhalation once daily Anoro Ellipta 62.5-25 MCG/ACT 1 puff Inhalation Once a day for 30 days May, Active Completed/Discontinued Medications Medication Drug Class(es) Dates Sig (Normalized) Sig (Original) plenvu 140 gm solution reconstituted (13 sources) Osmotic Laxative, Vitamin C Start: 11-17-2020 Plenvu 140 GM dose 1 pouch at 4pm, dose 2 pouch A & B at 11pm Orally BID for 1 days BIN:[id number] PCN: CNRX GROUP:[id number] ID:[id number] October, Not-Taking/PRN Start: 11-17-2020 Plenvu 140 GM dose 1 pouch at 4pm, dose 2 pouch A & B at 11pm Orally BID for 1 days BIN:[id number] PCN: CNRX GROUP:[id number] ID:[id number] October, Not-Taking Start: 11-17-2020 Plenvu 140 GM dose 1 pouch at 4pm, dose 2 pouch A & B at 11pm Orally BID for 1 days BIN:[id number]: CNRXGROUP:[id number] October, Not-Taking Start: 11-17-2020 Plenvu 140 GM dose 1 pouch at 4pm, dose 2 pouch A & B at 11pm Orally BID for 1 days BIN:[id number]: CNRXGROUP:[id number] October, Active methylPREDNISolone 4 mg oral tablet (13 sources) Corticosteroid Start: 05-24-2021 methylPREDNISolone 4 MG as directed Orally Once a day for 6 days Apr, Not-Taking/PRN ondansetron 4 mg oral tablet (12 sources) Serotonin-3 Receptor Antagonist Start: 08-07-2021 take [...] Onset: 08-30-2022 Chronic Deficiency and other anemia (13 sources) Anemia; Translations: [Anemia, unspecified] Episodic Disorders of lipid metabolism (20 sources) Hyperlipidemia; Translations: [Pure hypercholesterolemia] Onset: 02-28-2018 01-29-2019 Chronic Esophageal disorders (20 sources) Gastroesophageal reflux disease; Translations: [Gastro-esophageal reflux disease with esophagitis] Onset: 02-28-2018 01-29-2019 Chronic Essential hypertension (20 sources) Hypertensive disorder; Translations: [Essential hypertension] Onset: 08-30-2022 01-29-2019 Chronic Fluid and electrolyte disorders (13 sources) Hyponatremia; Translations: [Hypo-osmolality and hyponatremia] Episodic Genitourinary symptoms and ill-defined conditions (20 sources) Delay when starting to pass urine; [...] Episodic Inflammatory conditions of male genital organs (11 sources) Chronic prostatitis 04-23-2020 Chronic Osteoarthritis (11 sources) Arthritis 01-29-2019 Chronic Other aftercare (1 source) Other rat exterminator (current) drug therapy; Translations: [OTH ORACLE ERP DEVELOPER CURRENT DRUG THERAPY] Onset: 08-30-2022 Episodic Other aftercare (2 sources) Long-term current use of drug therapy; Translations: [Other rat exterminator (current) drug therapy] Episodic Other and unspecified benign neoplasm (11 sources) Lipoma of back; Translations: [Benign lipomatous [...] levels of other serum enzymes Episodic Other male genital disorders (5 sources) Male erectile dysfunction, unspecified; Translations: [Erectile dysfunction] Onset: 06-16-2023 Chronic Other nutritional; endocrine; and metabolic disorders (9 sources) Body mass index 30+ - obesity; Translations: [Body mass index 31.0-31.9, adult] Onset: 03-02-2018 Chronic Other nutritional; endocrine; and metabolic disorders (2 sources) Obesity; Translations: [Obesity, unspecified] Chronic Other nutritional; endocrine; and metabolic disorders (2 sources) Simple obesity ; Translations: [Other obesity due to excess calories] Onset: 03-02-2018 Chronic Other nutritional; endocrine; and metabolic disorders (5 sources) Obesity caused by energy imbalance; Translations: [Other obesity due to excess calories] Chronic Other nutritional; endocrine; and metabolic disorders (2 sources) Overweight; Translations: [Overweight] Episodic Other screening for suspected conditions (not mental disorders or infectious disease) (20 sources) Raised prostate specific antigen; Translations: [Elevated [...] of mental health and substance abuse codes (6 sources) Personal history of nicotine dependence; Translations: [H/O: Disorder] Onset: 08-30-2022 Episodic Substance-related disorders (20 sources) Smoker; 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] Onset: 03-02-2018 Resolved: 11-18-2021 04-23-2020 Chronic Unclassified (11 sources) Finding of sensation of bladder 03-26-2020 [...] Onset: 04-03-2023 Varicose veins of lower extremity (17 sources) Varicose veins of lower extremity; Translations: [...] Results Test Name Value Interpretation Reference Range Facility IntraOperative Documentson 1 08-23-2022 IntraOperative Documents [id number] 0#1.00TIFF [facility] Pathology Noteon 06-22-2023 Pathology Note [id number] #1.00TIFF [facility] Screenson 06-20-2023 Screens [id number] #1.00TIFF [facility] Screens [id number] #1.00TIFF [facility] Ambulatory Visit Summaryon 1 08-17-2022 Ambulatory Visit Summary MICHAEL KILLIAN :1955 Visit Date:06/16/2023 Ambulatory Visit Instructions Your Diagnosis Elevated PSA BPH with urinary obstruction ED (erectile dysfunction) Former smoker Enlarged lymph node Tests Performed Urnls Dip Stick Auto w/o Microscopy POC [address] CT Pelvis w/o Contrast -- Results Pending -- Please visit your patient portal for your results or contact your primary care physician. Your Care Team Attending Physician - Daryl HAMILTON, Meghan Tucker Primary Care Physician - MAO CONNOR GIO This Is Your Medications List Contact prescribing physician if questions or concerns alfuzosin (alfuzosin 10 mg ER Tab) carvedilol (carvedilol 6.25 mg Tab) lisinopril (lisinopril 40 mg Tab) [Image Removed: STOP]Stop taking these medications ciprofloxacin (ciprofloxacin 500 mg Tab) diazepam (Valium 10 mg Tab) Procedures Performed Prostate biopsy specimen (06/06/2023), Transrectal biopsy of prostate using ultrasound (US) guidance (04/07/2020), Transrectal biopsy of prostate using ultrasound (US) guidance (08/12/2015), Hernia repair, Tonsillectomy. Discharge Vitals Temperature (Temporal Artery) 36.2 ?C Heart Rate (Peripheral) 78 Blood Pressure 162/92 Height 71 in Height 180 cm Weight 238.04 lb Weight 108.2 kg BMI 33.4 What to do next Scheduled Follow-Up Appointments Monday 9:15 AM EST Where: [facility] Patient Educationon 06-16-20 23 Patient Education Oncology Prostate Cancer Screening Prostate [...] Where to find more information ? The [place] [employer]: www.cancer.org ? [place] [employer]: www.auanet.org Contact a health care [...] adds flu (more content not included)... [facility] Reminderson 06-16-2023 Reminders - From: Carissa Hammonds To: [facility] - Recalls Lue; Sent: 06/16/2023 11:03:12 EST Show up: 11/15/2023 12:03:00 EDT Subject: PSA and CT scan Reminder Message Please Remember to:_have pt get PSA and CT pelvis wo con done prior to appt. [facility] Urology Office/Clinic Noteon 06-16-2023 Urology Office/Clinic Note Chief Complaint S/P to MRI proste and review path HPI Staff S/p to [place] prostate wo/ [place] [facility] [place]03[place]23 Review path report done 06/06/23 Previous DX; Elevated PSA, BPH Taking Alfusion 10 mg ER qd He is still taking don't notice any difference IPSS 17 BUD 3 PSA 10/12/21 - 5.5 & 24.7% 12/12/22 - 6.56 04/12/23 - 8.21, PSAD 0.09 PVR 91 Dysuria: denies Incomplete bladder emptying: no all the time Hematuria: Moderate on U/A today) does not notice any blood for the last couple days Frequency: every 3-4 hours Urgency: denies Nocturia: 1-2 nightly Stream: sometimes hesitation, sometimes weaker stream, sometimes start stop stream Leaking: denies Post void dripping: denies Wearing pads/ Depends: denies Urge incontinence: denies Stress incontinence: denies Incontinence without Sensory Awareness: denies Abdominal pain: denies Flank pain: denies Sexual complaints: denies History of Present Illness Tests reviewed: reviewed path report I have reviewed the previous health record information and history for this patient from Dr. Brito. I have reviewed and verified the staff HPI to be accurate for this encounter. Review of Systems PHQ Score Initial [...] Psychiatric: no confusion, no anxiety. Genitourinary: See HPI.s Physical Exam Vitals & Measurements T: 36.2 ?C(Temporal Artery) HR: 78(Peripheral) BP: 162/92 HT: 71 in HT: 180 cm WT: 108.2 kg WT: 238.04 lb BMI: 33.4 General Appearance: alert, no distress, well nourished, well developed male. Genitourinary: Flank Pain: none. Bladder: nonpalpable. Assessment/Plan Former Dr. Kern pt is a 68-year-old male with a history of elevated PSA and enlarged pelvic lymph node on negative MRI prostate s/p bx, here for pathology review 1. Elevated PSA (R97.20: Elevated prostate specific antigen [PSA]) PSA 01/2017 - 3.93 01/2018 - 3.84 [...] cancer upon bx. 95% likelihood of detecting Jesenia scores >=7 cancer. The PCPT (prostate cancer prevention trial) risk calculator estimates his risk of prostate cancer to be 29% including a 16% risk of high grade disease and a 13% risk of low grade disease. TRUS/bx 08/12/15 - microfocus of low grade PIN and 2 cores with atypical glandular acinar aggregate. TRUS/bx 04/07/20 - neg. Transperineal prostate biopsy 06/06/23 - neg. Chronic inflammation in 1 core. The pathology report was reviewed with the patient in detail today. There is no evidence of malignancy and no further evaluation of the tissue removed is planned. Discussed it is unclear of etiology of enlarged lymph nodes which could be evaluated for bladder ca with cysto (although no gross microhematuria, negative imaging), followed yearly with imaging, or possible bx of LN in future. All questions were answered and the report discussed in terms that the patient could understand. -CT pelvis wo con in November to evaluate nonspecific pelvic lymph nodes -PSA free and total in November, continue annual surveillance Ordered: PSA Free & Total 2. BPH with urinary obstruction (N40.1: Benign prostatic hyperplasia with lower urinary tract symptoms) Pt states that he had tried Tamsulosin in the past, did not help as much. IPSS 17 (17). Taking Alfuzosin 10mg ER qd. Has had some sx improvement. Does not feel he always empties. PVR today 91cc. Discussed adding a new med along with the Alfuzosin previously but wanted to wait before starting new med. Today we discussed adding Finasteride in addition to current regimen to shrink prostate, risk of medication discussed. Alternatively discussed low dose, daily Cialis. Discussed SEs, risks, and benefits. Also discussed Urocuff or cysto to evaluate bladder function. Pt would like to proceed with Urocuff and continue current med. -Timed voids, behavioral modifications -Cont Alfuzosin -Will schedule Urocuff. The risks and benefits have been discussed. The risks include bleeding, infection, and irritation of the bladder and urinary channel, among others. The patient, after being informed of procedural details and after questions have been answered, wishes to proceed. Full informed consent jane (more content not included)... [facility] Comment on above: Result Comment: Elec tronically Signed By: Meghan Brito MD\.br\Date and Time Signed: 06/16/23 15:18 EST\.br\Electronically Co-Signed By: Carissa Hammonds\.br\Date and Time Co-Signed: 06/16/23 11:02 EST Main OR Intraoperative Recor don 06-09-2023 Main OR Intraoperative Record IntraOp Document Type FT Summary Primary Physician: Meghan Brito MD Finalized Date/Time: 06/09/23 09:45:57 Pt. Name: DANIEL MICHAEL Villagran/Sex: 1955 Male Med Rec #: [id number] Physician: Meghan Brito MD Financial #: [id number] Pt. Type: A Room/Bed: AS10 Admit/Disch: 06/06/23 13:31:36 - 06/06/23 18:00:13 Institution: [...] Performed Surgeon - Primary Scrub - Primary Program Analyst - Primary Time In 06/06/23 16:38:00 06/06/23 [...] and tissue Entry 1 Skin Integrity Intact, [place], Warm, and Skin Abnormality No Dry Outcomes Met? Yes Last Modified By: Jacinta Don Ii 06/06/23 16:42:17 Post-Care Text: The patient is [...] Board Right (more content not included)... [facility] Discharge Instructionson Discharge Instructions [id number] 9#1.00TIFF [facility] IntraOperative Documentson 08-09-2022 IntraOperative Documents [id number] 5#1.00TIFF [facility] IntraOperative Documents [id number] 9#1.00TIFF [facility] IntraOperative Documents [id number] 9#1.00TIFF [facility] Preoperative Documentson Preoperative Documents [id number] 5#1.00TIFF [facility] Consent for Procedure/Surger yon 06-06-2023 Consent for Procedure/Surgery [id number] 58#1.00TIFF [facility] Consent for Treatmenton 05-26 Consent for Treatment [id number] #1.00TIFF [facility] Discharge Instructionson Discharge Instructions MICHAEL KILLIAN :1955 [...] Meghan Brito MD Where: [facility] Comment on above: Result Comment: Elec tronically Signed By: Alcides ENCISO, Dori Mallory\.br\Date and Time Signed: 06/06/23 17:16 EST H&P Updateon 06-06-2023 H&P Update [id number] 9#1.00TIFF [facility] Inpatient Patient Summaryon 06-06-2023 Inpatient Patient Summary [id number] [facility] Clinical Discharge Instructions PERSON INFORMATION Name: [...] Keep scheduled appointment Type Location Start Finish [facility] URO Office Visit [facility] 06/14/2023 10:30 AM 06/14/2023 10:45 AM Confirmed [...] Tab) By Mouth every day. Comment: [facility] Operative Reporton 3 Operative Report Patient: MICHAEL KILLIAN Age: 68 years Sex: Male : [...] Select MDX showed 95% likelihood of detecting Jesenia 7 or higher. After discussion of risks/benefits [...] . Impression and Plan Diagnosis Elevated PSA (IUY90-AL R97.20, Discharge, Medical). Diagnosis Elevated PSA (CHO54-DA R97.20, Discharge, Medical). [facility] Comment on above: Result Comment: Elec tronically Signed By: Meghan Brito MD\.br\Date and Time Signed: 06/06/23 16:58 EST Outpatient Surgery Discharge Instructionon 06-06-2023 Outpatient Surgery Discharge Instruction [place] [id number] Patient Discharge Instructions PERSON INFORMATION Name: MICHAEL [...] THE NEAREST EMERGENCY ROOM OR CALL 911 DANIEL Solo DENNIS J, have received the attached patient education materials/instructio ns and have verbalized understanding: May we do a follow up call? Yes No I was present when discharge instructions were given Patient Signature Date Clinican/Nurse Signature Date Follow up: With: Address: When: Meghan Brito Comments: Keep scheduled appointment Type Location Start [facility] Office Visit [facility] [place] 06/14/2023 10:30 AM 06/14/2023 10:45 AM Confirmed Pharmacy Information: Other: [email or web address] You may receive a survey from [employer] asking you to rate your care experience. Your feedback is important and will help us understand what we do well and how we can improve the quality of care we provide to you, your loved ones and our community. It?s an honor to serve you. Thank you for choosing [facility] HERE ARE THE MEDICATION CHANGES THAT OCCURRED [...] near your rectum, especially while sitting. ? [place]-colored urine due to small amounts of blood [...] Your may be allowed to remove your Fishre catheter at home. If so, our nursing [...] difficulty urinating or catheter-related problems Medication Leaflets: [facility] Patient Education - Texton 1 08-07-2022 Patient Education - Text Transperineal?Biopsy of the Prostate Discharge Instructions After the procedure, it is common to have: ? Pain and discomfort near your rectum, especially while sitting. ? [place]-colored urine due to small amounts of blood [...] you have difficulty urinating or catheter-related problems [facility] Outside Recordson 05-15-2023 Outside Records [id number] 5#1.00TIFF [facility] Ambulatory Visit Summaryon 1 07-12-2022 Ambulatory Visit Summary MICHAEL KILLIAN :1955 Visit Date:05/10/2023 Ambulatory Visit Instructions Your Diagnosis Elevated PSA BPH with urinary obstruction Tests Performed Urnls Dip Stick Auto w/o Microscopy POC 23434 Your Care Team Attending Physician - Meghan Brito MD Primary Care Physician - GIO JSASO DO This Is Your Medications List alfuzosin [...] Appointments Monday 2:30 PM EST With: Where: [facility] Monday 10:30 AM EST With: Meghan Brito MD Where: [facility] Patient Educationon 05-10-20 23 Patient Education Oncology Prostate Cancer Screening Prostate [...] Where to find more information ? The [place] [employer]: www.cancer.org ? [place] [employer]: www.auanet.org Contact a health care [...] adds flu (more content not included)... [facility] Screenson 05-10-2023 Screens [id number] 1#1.00TIFF [facility] Screens [id number] 3#1.00TIFF [facility] Urology Office/Clinic Noteon 05-10-2023 Urology [...] cancer upon bx. 95% likelihood of detecting [place] scores >=7 cancer. Today I reviewed the [...] also be falsely elevated due to any manipulation/instrum entation around the time of a PSA draw. [...] the office notified. Pt will need a driver courier if he takes Valium. 2. BPH with [...] time. -Timed voids (more content not included)... [facility] Comment on above: Result Comment: Elec tronically Signed By: Daryl HAMILTON, Meghan Tucker\.br\Date and Time Signed: 05/10/23 11:31 EST\.br\Electronically Co-Signed By: Nevaeh Padilla\.br\Date and Time Co-Signed: 05/10/23 11:22 EST Lab Reportson 04-18-2023 Lab Reports [id number] #1.00TIFF [facility] Physician Orderon 04-13-2023 Physician Order [id number] #1.00TIFF [facility] Formson 04-12-2023 Forms [id number] #1.00TIFF [facility] Lab Reportson 04-12-2023 Lab Reports [id number] #1.00TIFF [facility] Patient Educationon 04-11-20 Patient Education Oncology Prostate [...] Where to find more information ? The [place] [employer]: www.cancer.org ? [place] [employer]: www.auanet.org Contact a health care [...] flu (more content not included)... Normal [facility] Urology Office/Clinic Noteon 04-11-2023 Urology Office/Clinic Note [...] order for PSA. Will complete at [facility]. Return in about 4 weeks to review [...] Contact Information FLAKO ELLIOTT, THERESA Merida, URL [address] [facility] [place] [address] [phone] Additional Instructions: f/u with MD in 1 [...] SARS-CoV-2 (COVID-19) Ad26 vaccine 09/02/2020 Recorded Normal [facility] Comment on above: Result Comment: Elec tronically Signed By: THERESA ARRIOLA PA-C\.br\Date and Time Signed: 04/11/23 13:13 EDT\.br\Electronically Co-Signed By: Carissa Hammonds\.br\Date and Time Co-Signed: 04/11/23 12:33 EDT RAD - MRI Reporton 3 RAD - MRI Report [id number] #1.00TIFF [facility] Creatinine (Bld) [Mass/Vol]O rdered By: Theresa Arriola on 04-03-2023 Creatinine [Mass/Vol] 1.4 mg/dL 0.6-1.3 [facility] Comment on above: ER/ESD physician is notified/shown all ISTAT results.Critical values may be confirmed by laboratory testing ifdeemed necessary by ER attending doctor. ISTAT XRay CREon 04-03-2023 Creatinine [Mass/Vol] 1.4 mg/dL High 0.6-1.3 [facility] Comment on above: Result Comment: ER/E SD physician is notified/shown all ISTAT results. Critical values may be confirmed by laboratory testing if deemed necessary by ER attending doctor. Performed By: #### I SCRE #### [facility] [address] [place] [address] ISTAT GFR 55.088 Normal [facility] Comment on above: Result Comment: PERF ORMED BY: [place] [address] PATHOLOGIST QUANTITATIVE CONSULTANT SARAH BETH SILVEIRA M.D. Performed By: #### I SCRE #### [address] MR prostate wo/w conon 04-03 MR prostate wo/w con [facility] Main [place] [address] [place] [address] MRI Report Signed Patient: Michael Killian MR#: [id number] : 1955 Acct:[id number] Age/Sex: 68 / M ADM Date: 04/03/23 Loc: Room: Type: [facility] Attending Dr: Theresa Arriola PA-C Copies to: [...] BE excluded. Impression dictated by: Leandro Cleary Jr. DReinierOReinier04/03/2023 1:40 PM Dictation Location: [place] [address] Transcribed By: TASNEEM 04/03/23 1340 Dictated By: Leandro Cleary Jr, 04/03/23 1334 Signed By: 04/03/23 1340 [facility] Lab Reportson 01-19-2023 Lab Reports [id number] #1.00CD:127 Normal [facility] Screenson 12-21-2022 Screens [id number] #1.00CD:127 Normal [facility] Ambulatory Visit Summaryon 0 12-20-2022 Ambulatory Visit Summary MICHAEL KILLIAN :1955 Visit Date:12/20/2022 Ambulatory Visit Instructions Your Diagnosis Elevated PSA BPH with urinary obstruction Tests Performed Urnls Dip Stick Auto w/o Microscopy POC 39209 MRI Pelvis (Soft Tissue) w/ + w/o [...] Schedule the Following Appointments Follow Up with THERESA ARRIOLA PA-C, URL When: Comments: Sched [facility] MDX and MRI of Prostate. Where: [address] [address] Medications What How Much When Why Instructions [...] Urnls Dip Stick Auto w/o Microscopy POC 43859 (12/20/2022) Bilirubin Urine Dipstick - Negative Blood Urine Dipstick - Negative Glucose Urine Dipstick - Negative Ketones Urine Dipstick - Negative Leukocytes Urine Dipstick - Negative Nitrite Urine Dipstick - Negative Protein Urine Dipstick - Negative Specific [place] Urine Dipstick - 1.010 Urine Appearance Urine [...] An enlar (more content not included)... Normal [facility] Patient Educationon 12-21-19 23 Patient Education Oncology Prostate Cancer Screening Prostate [...] Where to find more information ? The [place] [employer]: www.cancer.org ? [place] [employer]: www.auanet.org Contact a health care [...] adds flu (more content not included)... Normal [facility] Urology Office/Clinic Noteon 12-20-2022 Urology Office/Clinic Note Chief Complaint 1yr PSA HPI Staff Former DLS pt here today for 1yr follow up with PSA. DX: Elevated PSA & BPH *Alfuzosin 10mg QD therapy. PSA 12/12/- 6.56 IPSS 16 Denies pain/burning and blood [...] changes: adding an additional agent such as finasteride/dutaster mica I discussed with the patient the different [...] Urnls Dip Stick Auto w/o Microscopy POC 00254 Follow-up With When Contact Information THERESA ARRIOLA PA-C, URL [address] [place] [address] Additional Instructions: Sched [facility] MDX and MRI of Prostate. Patient Education Prostate Cancer Screening Documentation recorded by the scribe Nevaeh Padilla accurately reflects the services(s) I performed and decisions made by me. Authenticated by Theresa Arriola PA-C on 12/20/2022 10:54:20. I, Nevaeh Padilla, personally scribed for Theresa Arriola PA-C on 12/20/2022 10:44:12. . Problem List/Past [...] concerns: No. (more content not included)... Normal [facility] Comment on above: Result Comment: Elec tronically Signed By: THERESA ARRIOLA PA-C\.br\Date and Time Signed: 12/20/22 11:01 EDT PROF 14(COMP METB)on 023 Albumin [Mass/Vol] 3.9 g/dL Normal 3.4-5.0 [facility] Comment on above: Performed By: #### B MP #### [facility] [address] [place] [address] Dr. Duy Gallegos Albumin/Globulin [Mass ratio] 1.1 {ratio} Normal [facility] Comment on above: Performed By: #### B MP #### [facility] [address] [place] [address] Dr. Duy Gallegos ALP [Catalytic activity/Vol] 70 U/L Normal 46-116 [facility] Comment on above: Performed By: #### B MP #### [facility] [address] [place] [address] Dr. Duy Gallegos ALT [Catalytic activity/Vol] 26 U/L Normal 16-63 [facility] Comment on above: Performed By: #### B MP #### [facility] [address] [place] [address] Dr. Duy Gallegos Anion gap [Moles/Vol] 13.1 mmol/L Normal [facility] Comment on above: Performed By: #### B MP #### [facility] [address] [place] [address] Dr. Duy Gallegos AST [Catalytic activity/Vol] 17 U/L Normal 15-37 [facility] Comment on above: Performed By: #### B MP #### [facility] [address] [place] [address] Dr. Duy Gallegos Bilirubin [Mass/Vol] 0.6 mg/dL Normal 0.2-1.0 [facility] Comment on above: Performed By: #### B MP #### [facility] [address] [place] [address] Dr. Duy Gallegos Calcium [Mass/Vol] 9.0 mg/dL Normal 8.5-10.1 [facility] Comment on above: Performed By: #### B MP #### [facility] [address] [place] [address] Dr. Duy Gallegos Chloride [Moles/Vol] 106 mmol/L Normal 98-107 [facility] Comment on above: Performed By: #### B MP #### [facility] [address] [place] [address] [address] Duy Gallegos CO2 [Moles/Vol] 28.5 mmol/L Normal 21.0-32.0 [facility] Comment on above: Performed By: #### B MP #### [facility] [address] [place] [address] [address] Duy Gallegos Creatinine [Mass/Vol] 1.22 mg/dL Normal 0.70-1.30 [facility] Comment on above: Performed By: #### B MP #### [facility] [address] [place] [address] [address] Duy Gallegos EGFR-AF BERMUDIAN >60 Normal >=60 [facility] Comment on above: Performed By: #### B MP #### [facility] [address] [place] [address] Dr. Duy Gallegos EGFR-NON AF BERMUDIAN 59 mL/min/1.73m2 Critically low >=60 [facility] Comment on above: Performed By: #### B MP #### [facility] [address] [place] [address] Dr. Duy Gallegos Globulin (S) [Mass/Vol] 3.7 g/dL Normal [facility] Comment on above: Performed By: #### B MP #### [facility] [address] [place] [address] Dr. Duy Gallegos Glucose [Mass/Vol] 113 mg/dL Critically high 74-106 [facility] Comment on above: Performed By: #### B MP #### [facility] [address] [place] [address] [address] Duy Gallegos Potassium [Moles/Vol] 4.6 mmol/L Normal 3.5-5.1 [facility] Comment on above: Performed By: #### B MP #### [facility] [address] [place] [address] [address] Duy Gallegos Protein [Mass/Vol] 7.6 g/dL Normal 6.4-8.2 [facility] Comment on above: Performed By: #### B MP #### [facility] [address] [place] [address] Dr. Duy Gallegos Sodium [Moles/Vol] 143 mmol/L Normal 136-145 [facility] Comment on above: Performed By: #### B MP #### [facility] [address] [place] [address] [address] Duy Gallegos Urea nitrogen [Mass/Vol] 12.0 mg/dL Normal 7.0-18.0 [facility] Comment on above: Performed By: #### B MP #### [facility] [address] [place] [address] [address] Duy Gallegos Urea nitrogen/Creatinine [Mass ratio] 9.8 mg/mg Normal [facility] Comment on above: Performed By: #### B MP #### [facility] [address] [place] [address] [address] Duy Gallegos XR CHEST 2 Von [...] by: LIDYA VALE Date: 2022-11-07 09:16 Normal [facility] CULTURE BLOODon 08-30-2022 Microscopic examination of blood, [...] <=0.25 S F Clindamycin <=0.25 S F Quinupristin/Dalfopr istin 0.5 S F Linezolid 2 S F Vancomycin <=0.5 S F Tetracycline <=1 S F Rifampicin <=0.5 S F Trimethoprim/Sulfame thoxazole <=10 S F Normal [facility] Comment on above: Performed By: #### B MP #### [facility] [address] [place] [address] Dr. Duy Gallegos HEPATITIS PANEL, ACUTEon HBsAg Screen Negative Normal Negative [facility] Comment on above: Performed By: #### C BC #### [facility] [address] [place] [address] Dr. Duy Gallegos HCV AB Non-Reactive Normal Non Reactive [facility] Comment on above: Performed By: #### C BC #### [facility] [address] [place] [address] Dr. Duy Gallegos Hep A Ab, IgM Negative Normal Negative [facility] Comment on above: Performed By: #### C BC #### [facility] [address] [place] [address] Dr. Duy Gallegos Hep B Core Ab, IgM Negative Normal Negative [facility] Comment on above: Performed By: #### C BC #### [facility] [address] [place] [address] Dr. Duy Galleogs Interpretation: Comment Normal [facility] Comment on above: Result Comment: Not infected with HCV unless early or acute infection is suspected (which may be delayed in an immunocompromised individual), or other evidence exists to indicate HCV infection. Performed By: #### C BC #### [facility] [address] [place] [address] Dr. Duy Gallegos CBC W MANUAL DIFFon 08-29-19 ATYPICAL LYMPH # Normal [facility] Comment on above: Performed By: #### B MP #### [facility] [address] [place] [address] Dr. Duy Gallegos ATYPICAL LYMPH % Normal [facility] Comment on above: Performed By: #### B MP #### [facility] [address] [place] [address] Dr. Duy Gallegos BAND # 0.0 103/ul Normal 0.0-0.3 [facility] Comment on above: Performed By: #### B MP #### [facility] [address] [place] [address] Dr. Duy Gallegos BAND % 0 % Normal 0-5 [facility] Comment on above: Performed By: #### B MP #### [facility] [address] [place] [address] Dr. Duy Gallegos BASOM # 0.00 103/ul Normal 0.00-0.10 [facility] Comment on above: Performed By: #### B MP #### [facility] [address] [place] [address] Dr. Duy Gallegos BASOM % 0.0 % Critically low 0.2-2.0 [facility] Comment on above: Performed By: #### B MP #### [facility] [address] [place] [address] Dr. Duy Gallegos BLAST # Normal [facility] Comment on above: Performed By: #### B MP #### [facility] [address] [place] [address] Dr. Duy Gallegos BLAST % Normal [facility] Comment on above: Performed By: #### B MP #### [facility] [address] [place] [address] Dr. Duy Gallegos CORRECTED WBC Normal 4.0-11.0 [facility] Comment on above: Performed By: #### B MP #### [facility] [address] [place] [address] Dr. Duy Gallegos EOS # 0.00 103/ul Normal 0.00-0.70 [facility] Comment on above: Performed By: #### B MP #### [facility] [address] [place] [address] Dr. Duy Gallegos EOS% 0.0 % Critically low 0.9-7.0 [facility] Comment on above: Performed By: #### B MP #### [facility] [address] [place] [address] Dr. Duy Gallegos HCT 36.8 % Critically low 42.0-54.0 [facility] Comment on above: Performed By: #### B MP #### [facility] [address] [place] [address] Dr. Duy Gallegos HGB 12.0 g/dl Critically low 14.0-18.0 [facility] Comment on above: Performed By: #### B MP #### [facility] [address] [place] [address] Dr. Duy Gallegos LYMPHM # 0.47 103/ul Critically low 1.20-3.80 [facility] Comment on above: Performed By: #### B MP #### [facility] [address] [place] [address] Dr. Duy Gallegos LYMPHM% 6.0 % Critically low 20.5-60.0 [facility] Comment on above: Performed By: #### B MP #### [facility] [address] [place] [address] Dr. Duy Gallegos MCH 28.4 pg Normal 25.9-34.0 [facility] Comment on above: Performed By: #### B MP #### [facility] [address] [place] [address] Dr. Duy Gallegos MCHC 32.6 g/dl Normal 29.9-35.2 [facility] Comment on above: Performed By: #### B MP #### [facility] [address] [place] [address] Dr. Duy Gallegos MCV 87.0 fL Normal 80.0-94.0 [facility] Comment on above: Performed By: #### B MP #### [facility] [address] [place] [address] Dr. Duy Gallegos METAMYELOCYTE # Normal [facility] Comment on above: Performed By: #### B MP #### [facility] [address] [place] [address] Dr. Duy Gallegos METAMYELOCYTE % Normal [facility] Comment on above: Performed By: #### B MP #### [facility] [address] [place] [address] Dr. Duy Gallegos MONOM# 0.40 103/ul Normal 0.30-0.80 [facility] Comment on above: Performed By: #### B MP #### [facility] [address] [place] [address] Dr. Duy Gallegos MONOM% 5.0 % Normal 1.7-12.0 [facility] Comment on above: Performed By: #### B MP #### [facility] [address] [place] [address] Dr. Duy Gallegos MPV 10.2 fL Normal 9.5-13.5 [facility] Comment on above: Performed By: #### B MP #### [facility] [address] [place] [address] Dr. Duy Gallegos MYELOCYTE # Normal [facility] Comment on above: Performed By: #### B MP #### [facility] [address] [place] [address] Dr. Duy Gallegos MYELOCYTE % Normal [facility] Comment on above: Performed By: #### B MP #### [facility] [address] [place] [address] Dr. Duy Gallegos NRBC Normal [facility] Comment on above: Performed By: #### B MP #### [facility] [address] [place] [address] Dr. Duy Gallegos PLT 205 103/ul Normal 150-450 [facility] Comment on above: Performed By: #### B MP #### [facility] [address] [place] [address] Dr. Duy Gallegos RBC 4.23 106/ul Critically low 4.70-6.10 [facility] Comment on above: Performed By: #### B MP #### [facility] [address] [place] [address] Dr. Duy Gallegos RDW 13.3 % Normal 11.0-15.0 [facility] Comment on above: Performed By: #### B MP #### [facility] [address] [place] [address] Dr. Duy Gallegos SEG # 7.03 103/ul Critically high 1.40-6.50 [facility] Comment on above: Performed By: #### B MP #### [facility] [address] [place] [address] Dr. Duy Gallegos SEG % 89.0 % Critically high 43.0-75.0 [facility] Comment on above: Performed By: #### B MP #### [facility] [address] [place] [address] Dr. Duy Gallegos WBC 7.9 103/ul Normal 4.0-11.0 [facility] Comment on above: Performed By: #### B MP #### [facility] [address] [place] [address] Dr. Duy Gallegos PROF 14(COMP METB)on 023 Albumin [Mass/Vol] 3.4 g/dL Normal 3.4-5.0 [facility] Comment on above: Performed By: #### C BC #### [facility] [address] [place] [address] Dr. Duy Gallegos Albumin/Globulin [Mass ratio] 1.0 {ratio} Normal [facility] Comment on above: Performed By: #### C BC #### [facility] [address] [place] [address] Dr. Duy Gallegos ALP [Catalytic activity/Vol] 73 U/L Normal 46-116 [facility] Comment on above: Performed By: #### C BC #### [facility] [address] [place] [address] Dr. Duy Gallegos ALT [Catalytic activity/Vol] 66 U/L Critically high 16-63 [facility] Comment on above: Performed By: #### C BC #### [facility] [address] [place] [address] Dr. Duy Gallegos Anion gap [Moles/Vol] 10.6 mmol/L Normal [facility] Comment on above: Performed By: #### C BC #### [facility] [address] [place] [address] Dr. Duy Gallegos AST [Catalytic activity/Vol] 26 U/L Normal 15-37 [facility] Comment on above: Performed By: #### C BC #### [facility] [address] [place] [address] Dr. Duy Gallegos Bilirubin [Mass/Vol] 0.3 mg/dL Normal 0.2-1.0 [facility] Comment on above: Performed By: #### C BC #### [facility] [address] [address] [address] Duy Gallegos Calcium [Mass/Vol] 8.9 mg/dL Normal 8.5-10.1 [facility] Comment on above: Performed By: #### C BC #### [facility] [address] [address] [address] Duy Gallegos Chloride [Moles/Vol] 106 mmol/L Normal 98-107 [facility] Comment on above: Performed By: #### C BC #### [facility] [address] [address] [address] Duy Gallegos CO2 [Moles/Vol] 29.3 mmol/L Normal 21.0-32.0 [facility] Comment on above: Performed By: #### C BC #### [facility] [address] [place] [address] Dr. Duy Gallegos Creatinine [Mass/Vol] 1.12 mg/dL Normal 0.70-1.30 [facility] Comment on above: Performed By: #### C BC #### [facility] [address] [place] [address] Dr. Duy Gallegos EGFR-AF BERMUDIAN >60 Normal >=60 [facility] Comment on above: Performed By: #### C BC #### [facility] [address] [place] [address] Dr. Duy Gallegos EGFR-NON AF BERMUDIAN >60 Normal >=60 [facility] Comment on above: Performed By: #### C BC #### [facility] [address] [place] [address] Dr. Duy Gallegos Globulin (S) [Mass/Vol] 3.3 g/dL Normal [facility] Comment on above: Performed By: #### C BC #### [facility] [address] [place] [address] Dr. Duy Gallegos Glucose [Mass/Vol] 157 mg/dL Critically high 74-106 [facility] Comment on above: Performed By: #### C BC #### [facility] [address] [place] [address] Dr. Duy Gallegos Potassium [Moles/Vol] 4.9 mmol/L Normal 3.5-5.1 [facility] Comment on above: Performed By: #### C BC #### [facility] [address] [place] [address] Dr. Duy Gallegos Protein [Mass/Vol] 6.7 g/dL Normal 6.4-8.2 [facility] Comment on above: Performed By: #### C BC #### [facility] [address] [address] [address] Duy Gallegos Sodium [Moles/Vol] 141 mmol/L Normal 136-145 [facility] Comment on above: Performed By: #### C BC #### [facility] [address] [place] [address] Dr. Duy Gallegos Urea nitrogen [Mass/Vol] 22.0 mg/dL Critically high 7.0-18.0 [facility] Comment on above: Performed By: #### C BC #### [facility] [address] [place] [address] Dr. Duy Gallegos Urea nitrogen/Creatinine [Mass ratio] 19.6 mg/mg Normal [facility] Comment on above: Performed By: #### C BC #### [facility] [address] [place] [address] Dr. Duy Gallegos MAGNESIUMon 08-27-2022 Magnesium [Mass/Vol] 2.0 mg/dL Normal 1.8-2.4 [facility] Comment on above: Performed By: #### C MP, MG #### [facility] [address] [place] [address] Dr. Duy Gallegos PROF 14(COMP METB)on 023 Albumin [Mass/Vol] 3.6 g/dL Normal 3.4-5.0 [facility] Comment on above: Performed By: #### C MP, MG #### [facility] [address] [place] [address] Dr. Duy Gallegos Albumin/Globulin [Mass ratio] 0.9 {ratio} Normal [facility] Comment on above: Performed By: #### C MP, MG #### [facility] [address] [address] [address] Duy Gallegos ALP [Catalytic activity/Vol] 79 U/L Normal 46-116 [facility] Comment on above: Performed By: #### C MP, MG #### [facility] [address] [address] [address] Duy Gallegos ALT [Catalytic activity/Vol] 86 U/L Critically high 16-63 [facility] Comment on above: Performed By: #### C MP, MG #### [facility] [address] [address] [address] Duy Gallegos Anion gap [Moles/Vol] 14.3 mmol/L Normal [facility] Comment on above: Performed By: #### C MP, MG #### [facility] [address] [address] [address] Duy Gallegos AST [Catalytic activity/Vol] 38 U/L Critically high 15-37 [facility] Comment on above: Performed By: #### C MP, MG #### [facility] [address] [address] [address] Duy Gallegos Bilirubin [Mass/Vol] 0.4 mg/dL Normal 0.2-1.0 [facility] Comment on above: Performed By: #### C MP, MG #### [facility] [address] [place] [address] Dr. Duy Gallegos Calcium [Mass/Vol] 9.3 mg/dL Normal 8.5-10.1 [facility] Comment on above: Performed By: #### C MP, MG #### [facility] [address] [address] [address] Duy Gallegos Chloride [Moles/Vol] 106 mmol/L Normal 98-107 [facility] Comment on above: Performed By: #### C MP, MG #### [facility] [address] [address] [address] Duy Gallegos CO2 [Moles/Vol] 27.1 mmol/L Normal 21.0-32.0 [facility] Comment on above: Performed By: #### C MP, MG #### [facility] [address] [address] [address] Duy Gallegos Creatinine [Mass/Vol] 1.17 mg/dL Normal 0.70-1.30 [facility] Comment on above: Performed By: #### C MP, MG #### [facility] [address] [address] [address] Duy Gallegos EGFR-AF BERMUDIAN >60 Normal >=60 [facility] Comment on above: Performed By: #### C MP, MG #### [facility] [address] [address] [address] Duy Gallegos EGFR-NON AF BERMUDIAN >60 Normal >=60 [facility] Comment on above: Performed By: #### C MP, MG #### [facility] [address] [place] [address] Dr. Duy Gallegos Globulin (S) [Mass/Vol] 3.8 g/dL Normal [facility] Comment on above: Performed By: #### C MP, MG #### [facility] [address] [address] [address] Duy Gallegos Glucose [Mass/Vol] 163 mg/dL Critically high 74-106 [facility] Comment on above: Performed By: #### C MP, MG #### [facility] [address] [place] [address] Dr. Duy Gallegos Potassium [Moles/Vol] 5.4 mmol/L Critically high 3.5-5.1 [facility] Comment on above: Performed By: #### C MP, MG #### [facility] [address] [address] [address] Duy Gallegos Protein [Mass/Vol] 7.4 g/dL Normal 6.4-8.2 [facility] Comment on above: Performed By: #### C MP, MG #### [facility] [address] [place] [address] Dr. Duy Gallegos Sodium [Moles/Vol] 142 mmol/L Normal 136-145 [facility] Comment on above: Performed By: #### C MP, MG #### [facility] [address] [address] [address] Duy Gallegos Urea nitrogen [Mass/Vol] 16.0 mg/dL Normal 7.0-18.0 [facility] Comment on above: Performed By: #### C MP, MG #### [facility] [address] [place] [address] Dr. Duy Gallegos Urea nitrogen/Creatinine [Mass ratio] 13.7 mg/mg Normal [facility] Comment on above: Performed By: #### C MP, MG #### [facility] [address] [place] [address] Dr. Duy Gallegos PROF CHEM 8 (BAS METB)on Anion gap [Moles/Vol] 15.1 mmol/L Normal [facility] Comment on above: Performed By: #### B MP #### [facility] [address] [place] [address] Dr. Duy Gallegos Calcium [Mass/Vol] 9.0 mg/dL Normal 8.5-10.1 [facility] Comment on above: Performed By: #### B MP #### [facility] [address] [place] [address] Dr. Duy Gallegos Chloride [Moles/Vol] 105 mmol/L Normal 98-107 [facility] Comment on above: Performed By: #### B MP #### [facility] [address] [place] [address] Dr. Duy Gallegos CO2 [Moles/Vol] 27.0 mmol/L Normal 21.0-32.0 [facility] Comment on above: Performed By: #### B MP #### [facility] [address] [place] [address] Dr. Duy Gallegos Creatinine [Mass/Vol] 1.20 mg/dL Normal 0.70-1.30 [facility] Comment on above: Performed By: #### B MP #### [facility] [address] [place] [address] Dr. Duy Gallegos EGFR-AF BERMUDIAN >60 Normal >=60 [facility] Comment on above: Performed By: #### B MP #### [facility] [address] [address] [address] Duy Gallegos EGFR-NON AF BERMUDIAN >60 Normal >=60 [facility] Comment on above: Performed By: #### B MP #### [facility] [address] [address] [address] Duy Gallegos Glucose [Mass/Vol] 155 mg/dL Critically high 74-106 [facility] Comment on above: Performed By: #### B MP #### [facility] [address] [address] [address] Duy Gallegos Potassium [Moles/Vol] 5.1 mmol/L Normal 3.5-5.1 [facility] Comment on above: Performed By: #### B MP #### [facility] [address] [address] [address] Duy Gallegos Sodium [Moles/Vol] 142 mmol/L Normal 136-145 [facility] Comment on above: Performed By: #### B MP #### [facility] [address] [address] [address] Duy Gallegos Urea nitrogen [Mass/Vol] 19.0 mg/dL Critically high 7.0-18.0 [facility] Comment on above: Performed By: #### B MP #### [facility] [address] [address] [address] Duy Gallegos Urea nitrogen/Creatinine [Mass ratio] 15.8 mg/mg Normal [facility] Comment on above: Performed By: #### B MP #### [facility] [address] [address] [address] Duy Gallegos XR CHEST 2 Von 08-27-2022 XR CHEST 2 V EXAMINATION: XR CHEST 2 V, 08/27/2022 7:53 AM EST HISTORY: SHORTNESS OF BREATH COMPARISON: 12/28/2021 TECHNIQUE: Chest x-ray: Two views. FINDINGS: Increased interstitial markings in the right lower lobe which may represent an infiltrate. Blunting of the costophrenic angles bilaterally. Cardiomediastinal silhouette is unremarkable. Visualized osseous structures are unremarkable. IMPRESSION: Possible right lower lobe infiltrate. Electronically authenticated by: GRACIE DEAN Date: 2022-08-27 08:27 Normal [facility] BLOOD CULTURE ID PANELon A. baumannii Not detected Normal NOT DETECTED [facility] Comment on above: Performed By: #### C BC #### [facility] [address] [address] [address] Duy Gallegos Bacteriodes fragilis Not detected Normal NOT DETECTED [facility] Comment on above: Performed By: #### C BC #### [facility] [address] [address] [address] Duy PEREIRAD CONTROLS PASSED Normal [facility] Comment on above: Performed By: #### C BC #### [facility] [address] [place] [address] Dr. Duy PEREIRADBTHD BLOOD CULTURE BOTTLE INFORMATION [facility] Comment on above: Performed By: #### C BC #### [facility] [address] [place] [address] Dr. Duy PEREIRADHD1 ANTIMICROBIAL RESISTANCE GENES [facility] Comment on above: Performed By: #### C BC #### [facility] [address] [place] [address] Dr. Duy PEREIRADHD2 SEE BELOW [facility] Comment on above: Result Comment: Note : Antimicrobial resitance can occur via multiple mechanisms. A Not Detected result for the [employer] antomicrobial resistance gene assays does not indicate antimicrobial susceptibility. Subculturing is required for species identification and susceptibility testing of isolates. Performed By: #### C BC #### [facility] [address] [place] [address] Dr. Duy Gallegos BCIDHD3 Positive [facility] Comment on above: Performed By: #### C BC #### [facility] [address] [place] [address] Dr. Duy PEREIRADHD4 Negative [facility] Comment on above: Performed By: #### C BC #### [facility] [address] [place] [address] Dr. Duy PEREIRADHD5 YEAST [facility] Comment on above: Performed By: #### C BC #### [facility] [address] [place] [address] Dr. Duy Bennett Set: Set 1 Normal [facility] Comment on above: Performed By: #### C BC #### [facility] [address] [place] [address] Dr. Duy Gallegos Bottle: Anaerobic Normal [facility] Comment on above: Performed By: #### C BC #### [facility] [address] [place] [address] Dr. Duy Gallegos C. neoformans/gattii Not detected Normal NOT DETECTED [facility] Comment on above: Performed By: #### C BC #### [facility] [address] [place] [address] Dr. Duy Gallegos Gala albicans Not detected Normal NOT DETECTED [facility] Comment on above: Performed By: #### C BC #### [facility] [address] [place] [address] Dr. Duy Gallegos Gala auris Not detected Normal NOT DETECTED [facility] Comment on above: Performed By: #### C BC #### [facility] [address] [place] [address] Dr. Duy Gallegos Gala glabrata Not detected Normal NOT DETECTED [facility] Comment on above: Performed By: #### C BC #### [facility] [address] [place] [address] Dr. Duy Gallegos Gala Krusei Not detected Normal NOT DETECTED [facility] Comment on above: Performed By: #### C BC #### [facility] [address] [place] [address] Dr. Duy Gallegos Gala Parapsilosis Not detected Normal NOT DETECTED [facility] Comment on above: Performed By: #### C BC #### [facility] [address] [place] [address] Dr. Duy Gallegos Gala Tropicalis Not detected Normal NOT DETECTED [facility] Comment on above: Performed By: #### C BC #### [facility] [address] [place] [address] Dr. Duy Gallegos CTX-M Resistant Gene Not Applicable Normal NOT DETECTE D [facility] Comment on above: Performed By: #### C BC #### [facility] [address] [place] [address] Dr. Duy Gallegos E. Cloacae complex Not detected Normal NOT DETECTED [facility] Comment on above: Performed By: #### C BC #### [facility] [address] [place] [address] Dr. Duy Gallegos E. faecalis Not detected Normal NOT DETECTED [facility] Comment on above: Performed By: #### C BC #### [facility] [address] [place] [address] Dr. Duy Gallegos E. faecium Not detected Normal NOT DETECTED [facility] Comment on above: Performed By: #### C BC #### [facility] [address] [place] [address] Dr. Duy Gallegos Enterobacteriaceae Not detected Normal NOT DETECTED [facility] Comment on above: Performed By: #### C BC #### [facility] [address] [place] [address] Dr. Duy Gallegos Escherichia coli Not detected Normal NOT DETECTED [facility] Comment on above: Performed By: #### C BC #### [facility] [address] [place] [address] Dr. Duy Gallegos H. influenzae Not detected Normal NOT DETECTED [facility] Comment on above: Performed By: #### C BC #### [facility] [address] [place] [address] Dr. Duy Gallegos IMP Resistant Gene Not Applicable Normal NOT DETECTED [facility] Comment on above: Performed By: #### C BC #### [facility] [address] [place] [address] Dr. Duy Gallegos K. oxytoca Not detected Normal NOT DETECTED [facility] Comment on above: Performed By: #### C BC #### [facility] [address] [place] [address] Dr. Duy Gallegos K. pneumoniae Not detected Normal NOT DETECTED [facility] Comment on above: Performed By: #### C BC #### [facility] [address] [place] [address] Dr. Duy Gallegos Klebsiella aerogenes Not detected Normal NOT DETECTED [facility] Comment on above: Performed By: #### C BC #### [facility] [address] [place] [address] Dr. Duy Gallegos KPC Resistant Gene Not Applicable Normal NOT DETECTED [facility] Comment on above: Performed By: #### C BC #### [facility] [address] [place] [address] Dr. Duy Gallegos List. monocytogenes Not detected Normal NOT DETECTED [facility] Comment on above: Performed By: #### C BC #### [facility] [address] [place] [address] Dr. Duy Gallegos Mcr-1 Resistant Gene Not Applicable Normal NOT DETECTE D [facility] Comment on above: Performed By: #### C BC #### [facility] [address] [place] [address] Dr. Duy Gallegos mecA/C Not Applicable Normal NOT DETECTED [facility] Comment on above: Performed By: #### C BC #### [facility] [address] [place] [address] Dr. Duy Gallegos mecA/C MREJ Not Applicable Normal NOT DETECTED [facility] Comment on above: Performed By: #### C BC #### [facility] [address] [place] [address] Dr. Duy Gallegos N. meningitidis Not detected Normal NOT DETECTED [facility] Comment on above: Performed By: #### C BC #### [facility] [address] [place] [address] Dr. Duy Gallegos NDM Resistant Gene Not Applicable Normal NOT DETECTED [facility] Comment on above: Performed By: #### C BC #### [facility] [address] [place] [address] Dr. Duy Gallegos Oxa-48-like Not Applicable Normal NOT DETECTED [facility] Comment on above: Performed By: #### C BC #### [facility] [address] [place] [address] Dr. Duy Gallegos Proteus Not detected Normal NOT DETECTED [facility] Comment on above: Performed By: #### C BC #### [facility] [address] [place] [address] Dr. Duy Gallegos Pseud. aeruginosa Not detected Normal NOT DETECTED [facility] Comment on above: Performed By: #### C BC #### [facility] [address] [place] [address] Dr. Duy Gallegos S. maltophilia Not detected Normal NOT DETECTED [facility] Comment on above: Performed By: #### C BC #### [facility] [address] [place] [address] Dr. Duy Gallegos Salmonella Not detected Normal NOT DETECTED [facility] Comment on above: Performed By: #### C BC #### [facility] [address] [place] [address] Dr. Duy Gallegos Seratia marcescens Not detected Normal NOT DETECTED [facility] Comment on above: Performed By: #### C BC #### [facility] [address] [place] [address] Dr. Duy Gallegos Site: L a/c Normal [facility] Comment on above: Performed By: #### C BC #### [facility] [address] [place] [address] Dr. Duy Gallegos Staph. aureus Not detected Normal NOT DETECTED [facility] Comment on above: Performed By: #### C BC #### [facility] [address] [place] [address] Dr. Duy Gallegos Stapmorgan. epidermidis Not detected Normal NOT DETECTED [facility] Comment on above: Performed By: #### C BC #### [facility] [address] [place] [address] Dr. Duy Gallegos Staph. lugdunensis Not detected Normal NOT DETECTED [facility] Comment on above: Performed By: #### C BC #### [facility] [address] [place] [address] Dr. Duy Gallegos Staphylococcus Detected Critically abnormal NOT DETECTED [facility] Comment on above: Performed By: #### C BC #### [facility] [address] [place] [address] Dr. Duy Gallegos Strep. agalactiae Not detected Normal NOT DETECTED [facility] Comment on above: Performed By: #### C BC #### [facility] [address] [place] [address] Dr. Duy Gallegos Strep. pneumoniae Not detected Normal NOT DETECTED [facility] Comment on above: Performed By: #### C BC #### [facility] [address] [place] [address] Dr. Duy Gallegos Strep. pyogenes Not detected Normal NOT DETECTED [facility] Comment on above: Performed By: #### C BC #### [facility] [address] [place] [address] Dr. Duy Gallegos Streptococcus Not detected Normal NOT DETECTED [facility] Comment on above: Performed By: #### C BC #### [facility] [address] [place] [address] Dr. Duy Gallegos Cullen/B Resist. Gene Not Applicable Normal NOT DETECTED [facility] Comment on above: Performed By: #### C BC #### [facility] [address] [place] [address] Dr. Duy Gallegos VIM Resistant Gene Not Applicable Normal NOT DETECTED [facility] Comment on above: Performed By: #### C BC #### [facility] [address] [place] [address] Dr. Duy Gallegos BLOOD GASES BTYon 08-26-2022 02 MODE NASAL CANNULA Normal [facility] Comment on above: Performed By: #### C BC #### [facility] [address] [place] [address] Dr. Duy Gallegos ALLENS TEST Positive Normal [facility] Comment on above: Performed By: #### C BC #### [facility] [address] [place] [address] Dr. Duy Gallegos Base excess Calc (Bld) [Moles/Vol] -1.3000 mmol/L Normal -2.0-2.0 [facility] Comment on above: Performed By: #### C BC #### [facility] [address] [place] [address] Dr. Duy Gallegos BIPAP PRESSURE Normal [facility] Comment on above: Performed By: #### C BC #### [facility] [address] [address] [address] Duy Gallegos CPAP [facility] Comment on above: Performed By: #### C BC #### [facility] [address] [address] [address] Duy Gallegos FIO2 [facility] Comment on above: Performed By: #### C BC #### [facility] [address] [address] [address] Duy Gallegos HCO3 (Bld) [Moles/Vol] 24.5 mmol/L Normal 22.0-26.0 [facility] Comment on above: Performed By: #### C BC #### [facility] [address] [place] [address] Dr. Duy Gallegos LPM 2 [facility] Comment on above: Performed By: #### C BC #### [facility] [address] [address] [address] Duy Gallegos MINUTE VOLUME [facility] Comment on above: Performed By: #### C BC #### [facility] [address] [address] [address] Duy Gallegos Oxygen (Bld) [Partial pressure] 64.3 mm[Hg] Critically low 80.0-100.0 [facility] Comment on above: Performed By: #### C BC #### [facility] [address] [place] [address] Dr. Duy Gallegos Oxygen saturation in Blood 92.0 % Critically low 95.0-100.0 [facility] Comment on above: Performed By: #### C BC #### [facility] [address] [address] [address] Duy Gallegos PCO2 45.3 mmHg Critically high 35.0-45.0 [facility] Comment on above: Performed By: #### C BC #### [facility] [address] [place] [address] Dr. Duy Gallegos PEEP [facility] Comment on above: Performed By: #### C BC #### [facility] [address] [place] [address] Dr. Duy Gallegos pH (Bld) 7.341 [pH] Critically low 7.350-7.450 [facility] Comment on above: Performed By: #### C BC #### [facility] [address] [place] [address] Dr. Duy Gallegos PIP [facility] Comment on above: Performed By: #### C BC #### [facility] [address] [place] [address] Dr. Duy Gallegos PS [facility] Comment on above: Performed By: #### C BC #### [facility] [address] [place] [address] Dr. Duy Gallegos PUNCTURE SITE LR [facility] Comment on above: Performed By: #### C BC #### [facility] [address] [place] [address] Dr. Duy Gallegos RATE [facility] Comment on above: Performed By: #### C BC #### [facility] [address] [place] [address] Dr. Duy Gallegos VENT MODE [facility] Comment on above: Performed By: #### C BC #### [facility] [address] [place] [address] Dr. Duy Gallegos [facility] Comment on above: Performed By: #### C BC #### [facility] [address] [place] [address] Dr. Duy Gallegos BNPon 08-26-2022 Natriuretic peptide B (Bld) [Mass/Vol] 2516.0 pg/mL Critically high <=900.0 [facility] Comment on above: Performed By: #### B MP #### [facility] [address] [place] [address] Dr. Duy Gallegos CBC AUTO DIFFon 08-26-2022 BASO # 0.1 103/ul Normal 0.0-0.1 [facility] Comment on above: Performed By: #### C BC #### [facility] [address] [place] [address] Dr. Duy Gallegos Basophils/100 WBC (Bld) 1.2 % Normal 0.2-2.0 [facility] Comment on above: Performed By: #### C BC #### [facility] [address] [place] [address] Dr. Duy Gallegos EO # 0.4 103/ul Normal 0.0-0.7 [facility] Comment on above: Performed By: #### C BC #### [facility] [address] [place] [address] Dr. Duy Gallegos Eosinophils/100 WBC (Bld) 4.6 % Normal 0.9-7.0 [facility] Comment on above: Performed By: #### C BC #### [facility] [address] [place] [address] Dr. Duy Gallegos Erythrocyte distribution width (RBC) [Ratio] 13.2 % Normal 11.0-15.0 [facility] Comment on above: Performed By: #### C BC #### [facility] [address] [place] [address] Dr. Duy Gallegos Hematocrit (Bld) [Volume fraction] 41.1 % Critically low 42.0-54.0 [facility] Comment on above: Performed By: #### C BC #### [facility] [address] [place] [address] Dr. Duy Gallegos Hemoglobin (Bld) [Mass/Vol] 13.8 g/dL Critically low 14.0-18.0 [facility] Comment on above: Performed By: #### C BC #### [facility] [address] [place] [address] Dr. Duy Gallegos IG # 0.03 10e3/ul Normal 0.00-0.03 [facility] Comment on above: Performed By: #### C BC #### [facility] [address] [place] [address] Dr. Duy Gallegos IG % 0.4 % Normal 0.0-0.5 [facility] Comment on above: Performed By: #### C BC #### [facility] [address] [place] [address] Dr. Duy Gallegos LYMPH # 2.9 103/ul Normal 1.2-3.8 [facility] Comment on above: Performed By: #### C BC #### [facility] [address] [place] [address] Dr. Duy Gallegos Lymphocytes/100 WBC (Bld) 35.3 % Normal 20.5-60.0 [facility] Comment on above: Performed By: #### C BC #### [facility] [address] [place] [address] Dr. Duy Gallegos MANUAL DIFF REQ NO Normal [facility] Comment on above: Performed By: #### C BC #### [facility] [address] [place] [address] Dr. Duy Gallegos MCH (RBC) [Entitic mass] 28.9 pg Normal 25.9-34.0 [facility] Comment on above: Performed By: #### C BC #### [facility] [address] [place] [address] Dr. Duy Gallegos MCHC (RBC) [Mass/Vol] 33.6 g/dL Normal 29.9-35.2 [facility] Comment on above: Performed By: #### C BC #### [facility] [address] [place] [address] Dr. Duy Gallegos MCV (RBC) [Entitic vol] 86.2 fL Normal 80.0-94.0 [facility] [facility] Comment on above: Performed By: #### C BC #### [facility] [address] [place] [address] Dr. Duy Gallegos MONO # 0.6 103/ul Normal 0.3-0.8 [facility] Comment on above: Performed By: #### C BC #### [facility] [address] [place] [address] Dr. Duy Gallegos Monocytes/100 WBC (Bld) 7.1 % Normal 1.7-12.0 [facility] Comment on above: Performed By: #### C BC #### [facility] [address] [place] [address] Dr. Duy Gallegos NEUT # 4.2 103/ul Normal 1.4-6.5 [facility] Comment on above: Performed By: #### C BC #### [facility] [address] [place] [address] Dr. Duy Gallegos Neutrophils/100 WBC (Bld) 51.4 % Normal 43.0-75.0 [facility] Comment on above: Performed By: #### C BC #### [facility] [address] [place] [address] Dr. Duy Gallegos Platelet mean volume (Bld) [Entitic vol] 10.1 fL Normal 9.5-13.5 [facility] Comment on above: Performed By: #### C BC #### [facility] [address] [place] [address] Dr. Duy Gallegos PLT 264 103/ul Normal 150-450 [facility] Comment on above: Performed By: #### C BC #### [facility] [address] [place] [address] Dr. Duy Gallegos RBC 4.77 106/ul Normal 4.70-6.10 [facility] Comment on above: Performed By: #### C BC #### [facility] [address] [place] [address] Dr. Duy Gallegos WBC 8.2 103/ul Normal 4.0-11.0 [facility] Comment on above: Performed By: #### C BC #### [facility] [address] [place] [address] Dr. Duy Gallegos CTA CHEST WO W CONon 023 CTA CHEST WO W CON EXAMINATION: CTA CHEST WO W CON HISTORY: Shortness of breath. [...] by: CODY WAY Date: 2022-08-26 20:19 Normal [facility] CULTURE BLOODon 08-26-2022 Microscopic examination of blood, culture Culture Observations: NO GROWTH AT 5 DAYS. Normal [facility] Comment on above: Performed By: #### B MP #### [facility] [address] [place] [address] Dr. Duy Gallegos Covid-19 PCR ([facility])on SARS-CoV-2 (COVID-19) RNA RICKY+probe Ql (Unsp spec) Not detected Normal NOT DETECTED [facility] Comment on above: Result Comment: [...] for this test is supported by the [place] of [employer] and Human Service's declaration that [...] used). Performed By: #### C BC #### [facility] [address] [place] [address] Dr. Duy Gallegos D-DIMERon 08-26-2022 D-DIMER 1.10 mg/L FEU Critically high <=0.59 [facility] Comment on above: Performed By: #### D DIM #### [facility] [address] [place] [address] [id number] [address] Duy Gallegos D-DIMER COMMENTS SEE BELOW Normal [facility] Comment on above: Result Comment: Incr [...] hospitalization. Performed By: #### D DIM #### [facility] [address] [place] [address] Dr. Duy Gallegos INFLUENZA A AND B AGon 08-26 INFLUANE SEE BELOW Normal [facility] Comment on above: Result Comment: Nega tive for Flu A protein angiten. Infection due to Flu A cannot be ruled out. Flu A angiten in the sample may be below the detection limit of the test. Performed By: #### I NFLUAB #### [facility] [address] [place] [address] Dr. Duy Gallegos INFLUBNEGH SEE BELOW Normal [facility] Comment on above: Result Comment: Nega tive for Flu B protein antigen. Infection due to Flu B cannot be ruled out. Flu B antigen in the sample may be below the detection limit of the test. Performed By: #### I NFLUAB #### [facility] [address] [place] [address] Dr. Duy Gallegos INFLUENZA A AG Negative Normal NEGATIVE SEE COMMENT [facility] Comment on above: Performed By: #### I NFLUAB #### [facility] [address] [place] [address] Dr. Duy Gallegos INFLUENZA B AG Negative Normal NEGATIVE SEE COMMENT [facility] Comment on above: Performed By: #### I NFLUAB #### [facility] [address] [place] [address] Dr. Duy Gallegos LACTATE/LACTIC ACIDon 2022 Lactate [Moles/Vol] 1.8 mmol/L Normal 0.4-1.9 [facility] Comment on above: Performed By: #### L ACT #### [facility] [address] [place] [address] Dr. Duy Gallegos PROF 14(COMP METB)on 023 Albumin [Mass/Vol] 3.7 g/dL Normal 3.4-5.0 [facility] Comment on above: Performed By: #### B IT SYSTEMS ADMINISTRATOR, CMP, HSTROPN #### [facility] [address] [place] [address] Dr. Duy Gallegos Albumin/Globulin [Mass ratio] 1.0 {ratio} Normal [facility] Comment on above: Performed By: #### B IT SYSTEMS ADMINISTRATOR, CMP, HSTROPN #### [facility] [address] [place] [address] Dr. Duy Gallegos ALP [Catalytic activity/Vol] 84 U/L Normal 46-116 [facility] Comment on above: Performed By: #### B IT SYSTEMS ADMINISTRATOR, CMP, HSTROPN #### [facility] [address] [place] [address] Dr. Duy Gallegos ALT [Catalytic activity/Vol] 103 U/L Critically high 16-63 [facility] Comment on above: Performed By: #### B IT SYSTEMS ADMINISTRATOR, CMP, HSTROPN #### [facility] [address] [place] [address] Dr. Duy Gallegos Anion gap [Moles/Vol] 15.5 mmol/L Normal [facility] Comment on above: Performed By: #### B IT SYSTEMS ADMINISTRATOR, CMP, HSTROPN #### [facility] [address] [place] [address] Dr. Duy Gallegos AST [Catalytic activity/Vol] 62 U/L Critically high 15-37 [facility] Comment on above: Performed By: #### B IT SYSTEMS ADMINISTRATOR, CMP, HSTROPN #### [facility] [address] [place] [address] Dr. Duy Gallegos Bilirubin [Mass/Vol] 0.3 mg/dL Normal 0.2-1.0 [facility] Comment on above: Performed By: #### B IT SYSTEMS ADMINISTRATOR, CMP, HSTROPN #### [facility] [address] [address] [address] Duy Gallegos Calcium [Mass/Vol] 8.8 mg/dL Normal 8.5-10.1 [facility] Comment on above: Performed By: #### B IT SYSTEMS ADMINISTRATOR, CMP, HSTROPN #### [facility] [address] [address] [address] Duy Gallegos Chloride [Moles/Vol] 106 mmol/L Normal 98-107 [facility] Comment on above: Performed By: #### B IT SYSTEMS ADMINISTRATOR, CMP, HSTROPN #### [facility] [address] [address] [address] Duy Gallegos CO2 [Moles/Vol] 25.9 mmol/L Normal 21.0-32.0 [facility] Comment on above: Performed By: #### B IT SYSTEMS ADMINISTRATOR, CMP, HSTROPN #### [facility] [address] [place] [address] Dr. Duy Gallegos Creatinine [Mass/Vol] 1.32 mg/dL Critically high 0.70-1.30 [facility] Comment on above: Performed By: #### B IT SYSTEMS ADMINISTRATOR, CMP, HSTROPN #### [facility] [address] [place] [address] Dr. Duy Gallegos EGFR-AF BERMUDIAN >60 Normal >=60 [facility] Comment on above: Performed By: #### B IT SYSTEMS ADMINISTRATOR, CMP, HSTROPN #### [facility] [address] [address] [address] Duy Gallegos EGFR-NON AF BERMUDIAN 54 mL/min/1.73m2 Critically low >=60 [facility] Comment on above: Performed By: #### B IT SYSTEMS ADMINISTRATOR, CMP, HSTROPN #### [facility] [address] [address] [address] Duy Gallegos Globulin (S) [Mass/Vol] 3.6 g/dL Normal [facility] Comment on above: Performed By: #### B IT SYSTEMS ADMINISTRATOR, CMP, HSTROPN #### [facility] [address] [address] [address] Duy Gallegos Glucose [Mass/Vol] 146 mg/dL Critically high 74-106 [facility] Comment on above: Performed By: #### B IT SYSTEMS ADMINISTRATOR, CMP, HSTROPN #### [facility] [address] [place] [address] Dr. Duy Gallegos Potassium [Moles/Vol] 4.4 mmol/L Normal 3.5-5.1 [facility] Comment on above: Performed By: #### B IT SYSTEMS ADMINISTRATOR, CMP, HSTROPN #### [facility] [address] [address] [address] Duy Gallegos Protein [Mass/Vol] 7.3 g/dL Normal 6.4-8.2 [facility] Comment on above: Performed By: #### B IT SYSTEMS ADMINISTRATOR, CMP, HSTROPN #### [facility] [address] [place] [address] Dr. Duy Gallegos Sodium [Moles/Vol] 143 mmol/L Normal 136-145 [facility] Comment on above: Performed By: #### B IT SYSTEMS ADMINISTRATOR, CMP, HSTROPN #### [facility] [address] [place] [address] Dr. Duy Gallegos Urea nitrogen [Mass/Vol] 15.0 mg/dL Normal 7.0-18.0 [facility] Comment on above: Performed By: #### B IT SYSTEMS ADMINISTRATOR, CMP, HSTROPN #### [facility] [address] [place] [address] Dr. Duy Gallegos Urea nitrogen/Creatinine [Mass ratio] 11.4 mg/mg Normal [facility] Comment on above: Performed By: #### B IT SYSTEMS ADMINISTRATOR, CMP, HSTROPN #### [facility] [address] [place] [address] Dr. Duy Gallegos TROPONIN, HIGH SENSITIVITYon 08-26-2022 HSTROP 41.1 pg/mL Normal 4.0-76.1 [facility] Comment on above: Result Comment: CUT- OFF POINTS HAVE BEEN ESTABLISHED BASED ON THE FOURTH UNIVERSAL DEFINITIONS OF MYOCARDIAL INFARCTION. THE UPPER REFERENCE LIMIT (URL) OF TROPONIN, DEFINED THE 99TH PERCENTILE OF cTnI DISTRIBUTION IN A REFERENCE POPULATION, HAS BEEN CONFIRMED THE DECISION THRESHOLD FOR ME DIAGNOSIS. Performed By: #### B MP #### [facility] [address] [address] [address] Duy Gallegos CBC AUTO DIFFon 05-18-2022 BASO # 0.1 103/ul Normal 0.0-0.1 [facility] Comment on above: Performed By: #### C BC #### [facility] [address] [address] [address] Duy Gallegos Basophils/100 WBC (Bld) 1.5 % Normal 0.2-2.0 [facility] Comment on above: Performed By: #### C BC #### [facility] [address] [address] [address] Duy Gallegos EO # 0.3 103/ul Normal 0.0-0.7 [facility] Comment on above: Performed By: #### C BC #### [facility] [address] [address] [address] Duy Gallegos Eosinophils/100 WBC (Bld) 4.7 % Normal 0.9-7.0 [facility] Comment on above: Performed By: #### C BC #### [facility] [address] [address] [address] Duy Gallegos Erythrocyte distribution width (RBC) [Ratio] 12.8 % Normal 11.0-15.0 [facility] Comment on above: Performed By: #### C BC #### [facility] [address] [address] [address] Duy Gallegos Hematocrit (Bld) [Volume fraction] 39.1 % Critically low 42.0-54.0 [facility] Comment on above: Performed By: #### C BC #### [facility] [address] [address] [address] Duy Gallegos Hemoglobin (Bld) [Mass/Vol] 13.2 g/dL Critically low 14.0-18.0 [facility] Comment on above: Performed By: #### C BC #### [facility] [address] [address] [address] Duy Gallegos IG # 0.03 10e3/ul Normal 0.00-0.03 [facility] Comment on above: Performed By: #### C BC #### [facility] [address] [place] [address] Dr. Duy Gallegos IG % 0.5 % Normal 0.0-0.5 [facility] Comment on above: Performed By: #### C BC #### [facility] [address] [place] [address] Dr. Duy Gallegos LYMPH # 1.4 103/ul Normal 1.2-3.8 [facility] Comment on above: Performed By: #### C BC #### [facility] [address] [place] [address] Dr. Duy Gallegos Lymphocytes/100 WBC (Bld) 23.8 % Normal 20.5-60.0 [facility] Comment on above: Performed By: #### C BC #### [facility] [address] [place] [address] Dr. Duy Gallegos MANUAL DIFF REQ NO Normal [facility] Comment on above: Performed By: #### C BC #### [facility] [address] [place] [address] Dr. Duy Gallegos MCH (RBC) [Entitic mass] 28.8 pg Normal 25.9-34.0 [facility] Comment on above: Performed By: #### C BC #### [facility] [address] [place] [address] Dr. Duy Gallegos MCHC (RBC) [Mass/Vol] 33.8 g/dL Normal 29.9-35.2 [facility] Comment on above: Performed By: #### C BC #### [facility] [address] [place] [address] Dr. Duy Gallegos MCV (RBC) [Entitic vol] 85.2 fL Normal 80.0-94.0 [facility] Comment on above: Performed By: #### C BC #### [facility] [address] [place] [address] Dr. Duy Gallegos MONO # 0.5 103/ul Normal 0.3-0.8 [facility] Comment on above: Performed By: #### C BC #### [facility] [address] [address] [address] Duy Gallegos Monocytes/100 WBC (Bld) 7.8 % Normal 1.7-12.0 [facility] Comment on above: Performed By: #### C BC #### [facility] [address] [address] [address] Duy Gallegos NEUT # 3.7 103/ul Normal 1.4-6.5 [facility] Comment on above: Performed By: #### C BC #### [facility] [address] [address] [address] Duy Gallegos Neutrophils/100 WBC (Bld) 61.7 % Normal 43.0-75.0 [facility] Comment on above: Performed By: #### C BC #### [facility] [address] [place] [address] Dr. Duy Gallegos Platelet mean volume (Bld) [Entitic vol] 9.6 fL Normal 9.5-13.5 [facility] Comment on above: Performed By: #### C BC #### [facility] [address] [place] [address] Dr. Duy Gallegos PLT 199 103/ul Normal 150-450 [facility] Comment on above: Performed By: #### C BC #### [facility] [address] [place] [address] Dr. Duy Gallegos RBC 4.59 106/ul Critically low 4.70-6.10 [facility] Comment on above: Performed By: #### C BC #### [facility] [address] [place] [address] Dr. Duy Gallegos WBC 6.0 103/ul Normal 4.0-11.0 [facility] Comment on above: Performed By: #### C BC #### [facility] [address] [place] [address] Dr. Duy Gallegos METHYLMALONIC ACID (MMA)on 0 03-03-2022 Methylmalonic Acid, Serum 232 nmol/L Normal 0-378 [facility] Comment on above: Performed By: #### M MA2 #### [facility] [address] [address] [address] Duy Gallegos CBC AUTO DIFFon 02-25-2022 BASO # 0.1 103/ul Normal 0.0-0.1 [facility] Comment on above: Performed By: #### C BC #### [facility] [address] [place] [address] Dr. Duy Gallegos Basophils/100 WBC (Bld) 1.3 % Normal 0.2-2.0 [facility] Comment on above: Performed By: #### C BC #### [facility] [address] [place] [address] Dr. Duy Gallegos EO # 0.2 103/ul Normal 0.0-0.7 [facility] Comment on above: Performed By: #### C BC #### [facility] [address] [place] [address] Dr. Duy Gallegos Eosinophils/100 WBC (Bld) 4.8 % Normal 0.9-7.0 [facility] Comment on above: Performed By: #### C BC #### [facility] [address] [place] [address] Dr. Duy Gallegos Erythrocyte distribution width (RBC) [Ratio] 13.9 % Normal 11.0-15.0 [facility] Comment on above: Performed By: #### C BC #### [facility] [address] [place] [address] Dr. Duy Gallegos Hematocrit (Bld) [Volume fraction] 36.2 % Critically low 42.0-54.0 [facility] Comment on above: Performed By: #### C BC #### [facility] [address] [place] [address] Dr. Duy Gallegos Hemoglobin (Bld) [Mass/Vol] 12.2 g/dL Critically low 14.0-18.0 [facility] Comment on above: Performed By: #### C BC #### [facility] [address] [place] [address] Dr. Duy Gallegos IG # 0.01 10e3/ul Normal 0.00-0.03 [facility] Comment on above: Performed By: #### C BC #### [facility] [address] [place] [address] Dr. Duy Gallegos IG % 0.2 % Normal 0.0-0.5 [facility] Comment on above: Performed By: #### C BC #### [facility] [address] [place] [address] Dr. Duy Gallegos LYMPH # 1.3 103/ul Normal 1.2-3.8 [facility] Comment on above: Performed By: #### C BC #### [facility] [address] [place] [address] Dr. Duy Gallegos Lymphocytes/100 WBC (Bld) 29.3 % Normal 20.5-60.0 [facility] Comment on above: Performed By: #### C BC #### [facility] [address] [place] [address] Dr. Duy Gallegos MANUAL DIFF REQ NO Normal [facility] Comment on above: Performed By: #### C BC #### [facility] [address] [place] [address] Dr. Duy Gallegos MCH (RBC) [Entitic mass] 29.5 pg Normal 25.9-34.0 [facility] Comment on above: Performed By: #### C BC #### [facility] [address] [place] [address] Dr. Duy Gallegos MCHC (RBC) [Mass/Vol] 33.7 g/dL Normal 29.9-35.2 [facility] Comment on above: Performed By: #### C BC #### [facility] [address] [place] [address] Dr. Duy Gallegos MCV (RBC) [Entitic vol] 87.7 fL Normal 80.0-94.0 [facility] Comment on above: Performed By: #### C BC #### [facility] [address] [place] [address] Dr. Duy Gallegos MONO # 0.4 103/ul Normal 0.3-0.8 [facility] Comment on above: Performed By: #### C BC #### [facility] [address] [address] [address] Duy Gallegos Monocytes/100 WBC (Bld) 9.4 % Normal 1.7-12.0 [facility] Comment on above: Performed By: #### C BC #### [facility] [address] [place] [address] Dr. Duy Gallegos NEUT # 2.5 103/ul Normal 1.4-6.5 [facility] Comment on above: Performed By: #### C BC #### [facility] [address] [place] [address] Dr. Duy Gallegos Neutrophils/100 WBC (Bld) 55.0 % Normal 43.0-75.0 [facility] Comment on above: Performed By: #### C BC #### [facility] [address] [place] [address] Dr. Duy Gallegos Platelet mean volume (Bld) [Entitic vol] 9.4 fL Critically low 9.5-13.5 [facility] Comment on above: Performed By: #### C BC #### [facility] [address] [address] [address] Duy Gallegos PLT 142 103/ul Critically low 150-450 [facility] Comment on above: Performed By: #### C BC #### [facility] [address] [place] [address] Dr. Duy Gallegos RBC 4.13 106/ul Critically low 4.70-6.10 [facility] Comment on above: Performed By: #### C BC #### [facility] [address] [place] [address] Dr. Duy Gallegos WBC 4.6 103/ul Normal 4.0-11.0 [facility] Comment on above: Performed By: #### C BC #### [facility] [address] [place] [address] Dr. Duy Gallegos FERRITINon 02-25-2022 Ferritin [Mass/Vol] 274.0 ng/mL Normal 26.0-388.0 [facility] Comment on above: Performed By: #### C BC #### [facility] [address] [address] [address] Duy Gallegos IRON AND TIBCon 02-25-2022 % SATURATION 33.8 % Normal [facility] Comment on above: Performed By: #### C BC #### [facility] [address] [address] [address] Duy Gallegos Iron [Mass/Vol] 97.0 ug/dL Normal 65.0-175.0 [facility] Comment on above: Performed By: #### C BC #### [facility] [address] [address] [address] Duy Gallegos TIBC DIRECT 287.0 ug/dL Normal 250.0-450.0 [facility] Comment on above: Performed By: #### C BC #### [facility] [address] [place] [address] Dr. Duy Gallegos VIT B12 AND FOLATEon 022 Cobalamin (Vitamin B12) [Mass/Vol] 817.0 pg/mL Normal 193.0-986.0 [facility] Comment on above: Performed By: #### C BC #### [facility] [address] [address] [address] Duy Gallegos FOLATE 16.90 ng/mL Normal 8.60-58.90 [facility] Comment on above: Performed By: #### C BC #### [facility] [address] [place] [address] Dr. Duy Gallegos XR CHEST 2 Von [...] ALEXA MCKENZIE Date: 2021-12-28 13:59 Normal [facility] COVID Quick Testingon 2021 Result Negative [facility] Other Quick Fluon 08-07-2021 FLUAV Ab CF (S) [Titer] Negative [facility] Other FLUBV Ab CF (S) [Titer] Negative [facility] [employer] Other COVID Quick Testingon 2020 Result Positive [facility] [employer] Other Vital Signs Date Time Vital Sign Value Performing Clinician Facility 06-16-2023 10:00-0500 Diastolic blood pressure 92 mm[Hg] Meghan Lue [facility] 06-16-2023 10:00-0500 Mean blood pressure 115 mm[Hg] Meghan Lue [facility] 06-16-2023 10:00-0500 Systolic blood pressure 162 mm[Hg] Meghan Lue [facility] 06-16-2023 09:44-0500 Blood Pressure Location Meghan Lue [facility] 06-16-2023 09:44-0500 Body temperature 97.16 [degF] Meghan Lue [facility] 06-16-2023 09:44-0500 Diastolic blood pressure 88 mm[Hg] Meghan Lue [facility] 06-16-2023 09:44-0500 Heart rate 78 /min Meghan Lue [facility] 06-16-2023 09:44-0500 Systolic blood pressure 144 mm[Hg] Meghan Lue [facility] 06-06-2023 17:10-0500 Diastolic blood pressure 70 mm[Hg] Meghan Lue [facility] 06-06-2023 17:10-0500 Heart rate 60 /min Meghan Lue [facility] 06-06-2023 17:10-0500 Respiratory rate 16 /min Meghan Lue [facility] 06-06-2023 17:10-0500 SaO2% (BldA) [Mass fraction] 100 % Meghan Lue [facility] 06-06-2023 17:10-0500 Systolic blood pressure 120 mm[Hg] Meghan Lue [facility] 06-06-2023 17:02-0500 Heart rate 62 /min Meghan Lue [facility] 06-06-2023 17:02-0500 SaO2% (BldA) [Mass fraction] 100 % Meghan Lue [facility] 06-06-2023 17:02-0500 Respiratory rate 16 /min Meghan Lue [facility] 06-06-2023 16:52-0500 Diastolic blood pressure 56 mm[Hg] Meghan Lue [facility] 06-06-2023 16:52-0500 Heart rate 60 /min Meghan Lue [facility] 06-06-2023 16:52-0500 SaO2% (BldA) [Mass fraction] 97 % Meghan Lue [facility] 06-06-2023 16:52-0500 Systolic blood pressure 89 mm[Hg] Meghan Lue [facility] 06-06-2023 16:29-0500 Diastolic blood pressure 89 mm[Hg] Meghan Lue [facility] 12-12-2023 16:29-0500 Systolic blood pressure 154 mm[Hg] Meghan Lue [facility] 06-06-2023 14:00-0500 Blood Pressure Location Meghan Lue [facility] 06-06-2023 14:00-0500 Mean blood pressure 84 mm[Hg] Meghan Lue [facility] 06-06-2023 14:00-0500 Respiratory rate 18 /min [facility] [facility] 10:54-0500 Blood Pressure Location Meghan Lue [facility] 05-10-2023 10:54-0500 Diastolic blood pressure 76 mm[Hg] Meghan Lue [facility] 05-10-2023 10:54-0500 Heart rate 68 /min Meghan Lue [facility] 05-10-2023 10:54-0500 Respiratory rate 16 /min Meghan Lue [facility] 05-10-2023 10:54-0500 Systolic blood pressure 132 mm[Hg] Meghan Lue [facility] 04-11-2023 11:40-0400 Blood Pressure Location THERESA FLAKO [facility] 04-11-2023 11:40-0400 Diastolic blood pressure 75 mm[Hg] THERESA FLAKO [facility] 04-11-2023 11:40-0400 Heart rate 68 /min THERESA FLAKO [facility] 04-11-2023 11:40-0400 Respiratory rate 16 /min THERESA FLAKO [facility] 04-11-2023 11:40-0400 Systolic blood pressure 134 mm[Hg] THERESA FLAKO [facility] 12-20-2022 10:11-0400 Blood Pressure Location THERESA FLAKO [facility] 12-20-2022 10:11-0400 Diastolic blood pressure 80 mm[Hg] THERESA FLAKO [facility] 12-20-2022 10:11-0400 Heart rate 70 /min THERESA FLAKO [facility] 12-20-2022 10:11-0400 Respiratory rate 16 /min THERESA FLAKO [facility] 12-20-2022 10:11-0400 Systolic blood pressure 140 mm[Hg] THERESA FLAKO [facility] 11-23-2022 08:30-0400 Body height 177.8 cm Gio Ball Other [facility] [employer] Other 11-23-2022 08:30-0400 Body mass index (BMI) [Ratio] 32.42 kg/m2 Gio Ball Other [facility] Other 11-23-2022 08:30-0400 Body weight 102.51 kg Gio Ball Other [facility] Other 11-23-2022 08:30-0400 Diastolic blood pressure 69 mm[Hg] Gio Jasso Other [facility] Other 11-23-2022 08:30-0400 Respiratory rate 12 /min Gio Ball Other [facility] Other 11-23-2022 08:30-0400 Systolic blood pressure 162 mm[Hg] Gio Ball Other [facility] Other 08-31-2022 10:00-0500 Body height 177.8 cm Gio Ball Other [facility] Other 08-31-2022 10:00-0500 Body mass index (BMI) [Ratio] 33.43 kg/m2 Gio Ball Other [facility] Other 08-31-2022 10:00-0500 Body weight 105.69 kg Gio Ball Other [facility] Other 08-31-2022 10:00-0500 Diastolic blood pressure 80 mm[Hg] Gio Ball Other [facility] Other 08-31-2022 10:00-0500 Respiratory rate 16 /min Gio Ball Other [facility] Other 08-31-2022 10:00-0500 SaO2% (BldA) [Mass fraction] 98 % Gio Ball Other [facility] Other 08-31-2022 10:00-0500 Systolic blood pressure 132 mm[Hg] Gio Ball Other [facility] Other 10-26-2021 09:11-0400 Blood Pressure Location Daniel Kern Jr. [facility] 10-26-2021 09:11-0400 Diastolic blood pressure 77 mm[Hg] Daniel Kern Jr. [facility] 10-26-2021 09:11-0400 Heart rate 78 /min Danielandres Kern Jr. [facility] 10-26-2021 09:11-0400 Respiratory rate 16 /min Danielandres Kern Jr. [facility] 10-26-2021 09:11-0400 Systolic blood pressure 181 mm[Hg] Daniel Kern Jr. [facility] 08-07-2021 11:00-0500 Body height 177.8 cm Gina Starks Other [facility] [employer] Other 08-07-2021 11:00-0500 Body mass index (BMI) [Ratio] 30.13 kg/m2 Gina Starks Other [facility] Other 08-07-2021 11:00-0500 Body temperature 101 [degF] Gina Starks Other [facility] Other 08-07-2021 11:00-0500 Body weight 95.26 kg Gina Starks Other [facility] Other 08-07-2021 11:00-0500 Respiratory rate 18 /min Gina Starks Other [facility] Other 08-07-2021 11:00-0500 SaO2% (BldA) [Mass fraction] 97 % Gina Starks Other [facility] Other 05-24-2021 18:15-0500 Body height 177.8 cm Sybil Lee Other [facility] Other 05-24-2021 18:15-0500 Body mass index (BMI) [Ratio] 30.85 kg/m2 Sybil Lee Other [facility] Other 05-24-2021 18:15-0500 Body temperature 96.9 [degF] Sybil Lee Other [facility] Other 05-24-2021 18:15-0500 Body weight 97.52 kg Sybil Lee Other [facility] Other 05-24-2021 18:15-0500 SaO2% (BldA) [Mass fraction] 91 % Sybil Lee Other [facility] Other Encounters Encounter Date Encounter Type Care Provider Facility Start: 06-30-2023 End: 07-01-2023 ambulatory Meghan Brito Facility:[facility] Start: 06-30-2023 End: 06-30-2023 Lab Drop off Meghan Brito [facility] Start: 06-30-2023 End: 07-01-2023 ambulatory Meghan Brito Facility: [facility] Start: 06-30-2023 End: 06-30-2023 Patient encounter procedure Meghan Brito [facility] Start: 06-22-2023 End: 06-22-2023 ambulatory Gio Ball Other [facility] Other Start: 06-22-2023 Telephone encounter Gio Diaz [facility] Start: 06-21-2023 Telephone encounter Gio Diaz [facility] Start: 06-21-2023 End: 06-22-2023 ambulatory Meghan M. Lue [facility] [employer] Other Start: 06-21-2023 End: 06-21-2023 Patient encounter procedure Meghan M. Lue [facility] Start: 06-20-2023 End: 06-20-2023 ambulatory Gio Jasso Other [facility] Other Start: 06-20-2023 Telephone encounter Gio Jasso [facility] Start: 06-18-2023 End: 06-18-2023 ambulatory Gio Jasso Other [facility] Other Start: 06-18-2023 Telephone encounter Gio Jasso [facility] Start: 06-16-2023 End: 06-17-2023 ambulatory Meghan M. Lue Facility:[facility] Start: 06-16-2023 End: 06-16-2023 Patient encounter procedure Meghan M. Lue [facility] Start: 06-15-2023 End: 06-16-2023 ambulatory Meghan M. Lue Facility: [place] Start: 06-15-2023 End: 06-15-2023 Patient encounter procedure Meghan M. Lue [facility] Start: 06-14-2023 End: 06-15-2023 ambulatory Meghan M. Lue Facility:[facility] Start: 06-14-2023 End: 06-14-2023 Patient encounter procedure Meghan M. Lue [facility] Start: 06-06-2023 End: 06-07-2023 ambulatory DUY GALLEGOS MD Facility:[id number] Start: 06-06-2023 End: 06-06-2023 ambulatory Meghan BernsteinReinier Daryl Facility:[facility] Start: 06-06-2023 End: 06-06-2023 Admission to same day surgery center Meghan AmandeepReinier Zafarfuad [facility] Start: 06-05-2023 End: 06-05-2023 ambulatory Gio Jasso Other [facility] Other Start: 06-05-2023 Telephone encounter Gio Jasso [facility] Start: 05-10-2023 End: 05-11-2023 ambulatory Meghan M. Lue Facility:[facility] Start: 05-10-2023 End: 05-10-2023 Patient encounter procedure Meghan Bernstein. Daryl [facility] Start: 04-28-2023 ambulatory Meghan M. Charismae Facility:[facility] Start: 04-27-2023 End: 04-27-2023 ambulatory Gio Jasso Other [facility] Other Start: 04-27-2023 Telephone encounter Gio Jasso [facility] Start: 04-11-2023 End: 04-12-2023 ambulatory PA-C THERESA ARRIOLA Facility:[facility] [place] Start: 04-11-2023 End: 04-11-2023 Patient encounter procedure THERESA ARRIOLA [facility] Start: 04-04-2023 End: 04-04-2023 ambulatory Gio Jasso Other [facility] Other Start: 04-04-2023 Telephone encounter Gio Jasso [facility] Start: 04-03-2023 End: 04-03-2023 ambulatory Theresa Arriola Facility:[facility] Start: 04-03-2023 End: 04-03-2023 ambulatory DO Gio Jasso Work Phone: [facility] Work Phone: Start: 04-03-2023 End: 04-03-2023 Patient encounter procedure DO Gio Jasso Work Phone: [facility] [place] Work Phone: Start: 12-20-2022 End: 12-21-2022 ambulatory PA-C THERESA ARRIOLA [facility] Start: 12-20-2022 End: 12-20-2022 Patient encounter procedure THERESA ARRIOLA [facility] Start: 12-13-2022 End: 12-13-2022 ambulatory Gio Jasso Other [facility] Other Start: 12-13-2022 Telephone encounter Gio Jasso [facility] Start: 12-12-2022 End: 12-12-2022 ambulatory Gio Jasso Other [facility] Other Start: 12-12-2022 Telephone encounter Gio Jasso [facility] Start: 11-23-2022 End: 11-23-2022 ambulatory Gio Jasso Other [facility] Other Start: 11-23-2022 Encounter for genera l adult medical examination without abnormal findings Gio Jasso [facility] Start: 11-23-2022 Periodic preventive med est patient 65yrs& older Gio Jasso [facility] Start: 11-07-2022 End: 11-08-[address] GIO JASSO Facility: Start: 11-01-2022 ambulatory Humberto Cazares ty:[facility] Start: 08-31-2022 End: 08-31-2022 ambulatory Gio Jasso Other [facility] Other Start: 08-31-2022 Office outpatient vi sit 25 minutes Gio RUIZ [facility] Start: 08-26-2022 End: 08-28-2022 Evaluation and management of inpatient DR DARIUS GIANG . Facility:[facility] Start: 05-18-2022 End: 05-19-[address] GIO JASSO Facility:[facility] Start: 02-25-2022 End: 02-26-[address] GIO JASSO Facility:[facility] Start: 01-07-[address] GIO JASSO Facili ty:[facility] Start: 12-28-2021 End: 12-29-[address] GIO JASSO Facility:[facility] Start: 11-18-2021 Adult health examination Gio Jasso Other [facility] Other Start: 10-26-2021 End: 10-26-2021 Patient encounter procedure Daniel Kern Jr. [facility] Start: 08-07-2021 End: 08-07-2021 ambulatory Gina Starks Other [facility] Other Start: 08-07-2021 Office outpatient vi sit 15 minutes Gina Starks [facility] Start: 05-24-2021 End: 05-24-2021 ambulatory Sybil Lee Other [facility] Other Start: 05-24-2021 Office outpatient vi sit 15 minutes Sybil Lee [facility] Procedures Date Procedure [...] of prostate Gio Jasso Other Tonsillectomy Daniel major Plan of Treatment Date Care Activity Detail Author [facility] Immunizations Immunization Date Immunization Notes Care Provider Renetta thacker 05-25-2023 influenza, high dose seasonal, preservative-free Gio Jasso Other [facility] Other 05-25-2023 pneumococcal polysaccharide vaccine, 23 valent Gio Jasso Other [facility] Other 02-24-2022 influenza virus vaccine, unspecified formulation THERESABESSY ARRIOLA [facility] 02-24-2022 influenza, high dose seasonal, preservative-free Gio Jasso Other [facility] Other 11-18-2021 pneumococcal conjuga te vaccine, 13 valent Gio Jasso Other [facility] Other 09-01-2021 COVID-19 Vaccine Moderna - Documentation Purposes Only Gio Jasso Other [facility] 06-26-2021 pneumococcal conjuga te vaccine, 13 valent Gio Jasso Other [facility] 09-02-2020 SARS-CoV-2 (COVID-19 ) Ad26 vaccine, recombinant Daniel Kern Jr. [facility] 05-03-2019 influenza virus vaccine, split virus (incl. purified surface antigen) Gio Jasso Other [facility] Other 05-09-2018 influenza virus vaccine, split virus (incl. purified surface antigen) Gio Jasso Other [facility] Other Payers Date Payer Category Payer Medicare [id number] 2023 Unknown [id number] 2023 Medicare [id number] 2020 Private Health Insurance [id number] Self-pay 1959 Unknown [id number] 2.16. [id number] 1956 Unknown [id number] 2.16.84 0.1.188993.3.579.2.593 1956 Unknown [id number] 2.16.84 0.1.697916.3.579.2.593 1956 Unknown [id number] 2.16.84 0.1.272658.3.579.2.593 1956 Unknown [id number] 2.16.84 0.1.972092.3.579.2.593 1956 Unknown [id number] 2.16.84 0.1.263489.3.579.2.593 1956 Unknown [id number] 2.16.84 0.1.173117.3.579.2.593 1956 Unknown [id number] 2.16.8 40.1.521473.3.579.2.159 1956 Unknown [id number] 2.16.8 40.1.732263.3.579.2.727 1956 Unknown [id number] 2.16.8 40.1.117595.3.579.2.727 1956 Unknown [id number] 2.16.8 40.1.981693.3.579.2.727 1956 Unknown [id number] 2.16.8 40.1.216978.3.579.2.727 1956 Unknown [id number] 2.16.8 40.1.881409.3.579.2.727 1956 Unknown [id number] 2.16.8 40.1.428879.3.579.2.727 1956 Unknown [id number] 2.16.8 40.1.897225.3.579.2.727 1956 Unknown [id number] 2.16.8 40.1.954178.3.579.2.727 1956 Unknown [id number] 2.16.8 40.1.956297.3.579.2.727 1956 Unknown [id number] 2.16.8 40.1.460501.3.579.2.727 1956 Unknown [id number] 2.16.8 40.1.816328.3.579.2.727 1956 Unknown [id number] 2.16.8 40.1.427736.3.579.2.727 Medicare Private Health Insurance Unknown [id number] 2.16.8 40.1.394318.3.579.2.531 Social History Date Type Detail Facility Start: 10-26-2021 Tobacco smoking status Heavy t obacco smoker (finding) [facility] Other Sex Assigned At Male [facility] Other Start: 12-20-2022 End: 05-10-2023 Tobacco smoking status Ex-smoker (finding) [facility] Start: 06-16-2023 Tobacco smoking status Never [facility] Start: 12-16-2020 Tobacco smoking stat us NHIS Smoker (finding) [facility] Start: 1955 Sex Assigned At Male [facility] Functional Status Date Assessment Result Facility 06-16-2023 Functional Status N/A [facility] 05-16-2023 Functional Status N/A [facility] 05-10-2023 Functional Status N/A [facility] 04-11-2023 Functional Status N/A [facility] 12-20-2022 Functional Status N/A [facility] Clinical Notes 05-24-2021 to 06-22-2023 Note Date & Type Note Facility 06-22-2023 Evaluation note Encounter Date Diagnosis Assessment Notes May, Simple chronic bronchitis (ICD-10 - J41.0) [facility] Other 12-27-2023 Evaluation note* Encounter Date Diagnosis Assessment Notes Treatment Notes Treatment Clinical Notes May, Simple chronic bronchitis (ICD-10 - J41.0) [facility] Other 12-26-2023 Evaluation note* Encounter Date Diagnosis Assessment Notes Treatment Notes Treatment Clinical Notes May, Simple chronic bronchitis (ICD-10 - J41.0) [facility] Other 12-22-2023 Hospital Discharge instructions Patient Education 06/16/2023 10:59:22 Prostate Cancer Screening Prostate Cancer Screening Prostate [...] treatment? Where to find more information [employer] [place] [employer]: www.cancer.org [place] [employer]: www.auanet.org Contact a health care [...] provider. Document Revised: 12/06/2021 Document Reviewed: 12/06/2021 [employer] Patient Education 2022 [employer]. Follow Up Care 06/16/2023 08:30:52 With:Meghan Brito MD, LOGAN, URO Address: [address] [place] [address] [phone] When: Unknown Comments:6 mos w/ CT and PSA [facility] 12-20-2023 Hospital Discharge instructions Follow Up Care 06/14/2023 08:28:10 With:Meghan Brito MD, LOGAN, URO Address: When: Unknown [facility] 12-12-2023 Hospital Discharge instructions Patient Education 06/06/2023 16:52:41 EU - Transrectal Ultrasound of the Prostate with US guided biopsy Discharge Instructions (CUSTOM) Transperineal?Biopsy of the Prostate Discharge Instructions After the procedure, it is common to have: Pain and discomfort near your rectum, especially while sitting. [place]-colored urine due to small amounts of blood in your urine for 4-5 weeks. When your urine turnsred, limit your activities and drink plenty of [...] Brito Address:Unknown When: Unknown Comments:Keep scheduled appointment [facility]12-12-2023 Evaluation + Plan noteExtracted from: Title:EU -transperineal prostate biopsy Author:Meghan Melgoza MD Date:06/06/23 Impression and Plan Diagnosis Elevated PSA ([id number] R97.20, Discharge, Medical). Diagnosis Elevated PSA (TPE00-XO R97.20, Discharge, Medical). Future Appointments Appointment Date:06/14/2023 10:30:00 AM Scheduled Provider:Meghan Brito MD Location:[facility] Appointment Type:URO Office Visit [facility]11-20-2023 Note [id number] Hospital Discharge instructions Follow Up Care 05/10/2023 11:27:04 With:Meghan Brito MD, URL, URO Address: [address] [place] [address]- [phone] When: Unknown [facility] 11-15-2023 Hospital Discharge instructions Patient Education 05/10/2023 11:20:34 [...] treatment? Where to find more information The [place] [employer]: www.cancer.org [place] [employer]: www.auanet.org Contact a health care [...] provider. Document Revised: 12/06/2021 Document Reviewed: 12/06/2021 [employer] Patient Education 2022 [employer]. 05/10/2023 11:11:23 Benign Prostatic Hyperplasia Benign Prostatic [...] urethra. Follow these instructions at home: Take hvxz-dgv-boxitsu and prescription medicines only as told by [...] provider. Document Revised: 12/29/2021 Document Reviewed: 12/29/2021 [employer] Patient Education 2022 [employer]. Follow Up Care 04/12/2023 09:16:25 With:Daryl HAMILTON, LOGAN Villalpando, URO Address: When: Unknown Comments:Sched Transperineal Bx of Prostate [facility] 11-02-2023 Evaluation note* Encounter Date Diagnosis Assessment Notes Treatment Notes Treatment Clinical Notes Apr, Primary hypertension (ICD-10 - I10) [facility] Other 10-17-2023 Hospital Discharge instructions Patient Education 04/11/2023 12:30:37 [...] treatment? Where to find more information The [place] [employer]: www.cancer.org [place] [employer]: www.auanet.org Contact a health care [...] provider. Document Revised: 12/06/2021 Document Reviewed: 12/06/2021 [employer] Patient Education 2022 [employer]. Follow Up Care 03/16/2023 16:12:09 With:THERESA ARRIOLA PA-C, URL Address: [address] [place] [address] [phone] When: Unknown Comments:f/u with MD in 1 month w/ PSA and [facility] Evaluation note* Encounter Date Diagnosis Assessment Notes Treatment Notes Treatment Clinical Notes Mar, Primary hypertension (ICD-10 - I10) [facility] Other 06-27-2023 Hospital Discharge instructions Patient Education [...] treatment? Where to find more information The [place] [employer]: www.cancer.org [place] [employer]: www.auanet.org Contact a health care [...] provider. Document Revised: 12/06/2021 Document Reviewed: 12/06/2021 [employer] Patient Education 2022 [employer]. Follow Up Care 10/03/2022 14:27:57 With:THERESA ARRIOLA PA-C, URL Address: [address] [place] [address] When: Unknown Comments:Sched Select MDX and MRI of Prostate. [facility] 06-20-2023 Evaluation note* Encounter Date Diagnosis Assessment Notes Treatment Notes Treatment Clinical Notes Nov, Cigarette nicotine dependence in remission (ICD-10 - F17.211) Started at age 19, quit age 66, 1ppd. LDCT w/o nodules - 11/2022 [facility] Other 06-19-2023 Evaluation note* Encounter Date Diagnosis Assessment Notes Treatment Notes Treatment Clinical Notes Nov, Simple chronic bronchitis (ICD-10 - J41.0) Nov, Cigarette nicotine dependence in remission (ICD-10 - F17.211) Started at age 19, quit age 66, 1ppd. LDCT w/o nodules - 11/2022 [facility] Other 05-31-2023 Evaluation note* Encounter Date Diagnosis [...] Z12.5) Yearly MARIZA and PSA, f/u Urology [facility] Other 03-08-2023 Evaluation note* Encounter Date Diagnosis [...] in remission (ICD-10 - F17.211) Continue abstinence [facility] Other 05-03-2022 Hospital Discharge instructions Patient Education [...] urethra. Follow these instructions at home: Take wiqj-uxk-toixhbm and prescription medicines only as told by [...] 06/12/2006 Document Revised: 05/07/2019 Document Reviewed: 07/17/2017 [employer] Patient Education 2019 [employer] Follow Up Care 10/22/2020 09:07:58 With:Erlin Alonso MD, Daniel Tse, URO Address: [facility] [address], [place] [address]- When:10/26/2022 Comments:with PSA [facility] 02-12-2022 Evaluation note* Encounter Date Diagnosis Assessment [...] Patient care instructions given in writting by [facility] Care At Home document [facility] Other 11-29-2021 Evaluation note* Encounter Date Diagnosis Assessment Notes Treatment Notes Treatment Clinical Notes Apr, Contact with and (suspected) exposure to other viral communicable diseases (ICD-10 - Z20.828) Apr, COVID-19 (ICD-10 - U07.1) Today you tested positive for the COVID virus. This mean you need to follow all [facility] quarantine guidelines found at [email or web address]. It is important to rest, increase [...] Patient care instructions given in writting by [facility] Care At Home document. [facility] Other Evaluation + Plan note Future Appointments Appointment Date:11/01/2022 08:15:00 AM Scheduled Provider:Erlin Alonso MD, Daniel Tse Location:[facility] Appointment Type:URO Office Visit Diagnostic Tests Pending * PSA Total 10/26/21 [facility] evaluation + Plan note Future Appointments Appointment Date:04/28/2023 08:15:00 AM Scheduled Provider:Daryl HAMILTON, Meghan Tucker Location:[facility] Appointment Type:URO Office Visit Diagnostic Tests Pending * PSA Total 04/11/23 [facility] evaluation + Plan note Future Appointments Appointment Date:06/06/2023 02:30:00 PM Scheduled Provider: Location:[facility] Appointment Type:Surgery FT Appointment Date:06/14/2023 10:30:00 AM Scheduled Provider:Meghan Brito MD Location:[facility] Appointment Type:URO Office Visit [facility] evaluation + Plan note Future Appointments Appointment Date:06/15/2023 03:30:00 PM Scheduled Provider:Meghan Brito MD Location:[facility] Appointment Type:URO Office Visit [facility] evaluation + Plan note Future Appointments Appointment Date:06/21/2023 08:45:00 AM Scheduled Provider:Meghan Brito MD Location:[facility] Appointment Type:URO Office Visit [facility] evaluation + Plan note Future Appointments Appointment Date:06/30/2023 09:15:00 AM Scheduled Provider: Location:[facility] Appointment Type:URO Nurse Visit Diagnostic Tests Pending * PSA Free & Total 06/16/23 [facility] Evaluation + Plan note Future Appointments Appointment Date:06/30/2023 09:15:00 AM Scheduled Provider: Location:[facility] Appointment Type:URO Nurse Visit [facility] evaluation + Plan note Future Appointments Appointment Date:07/31/2023 08:30:00 AM Scheduled Provider: Location:[facility] Appointment Type:Urology FT [facility] Evaluation + Plan note Future Appointments Appointment Date:07/31/2023 08:30:00 AM Scheduled Provider: Location:[facility] Appointment Type:Urology FT Diagnostic Tests Pending * Urine Cytology ([facility]) [facility] Work Phone: Evaluation noteNo InformationNort [employer] Other Hiszz[employer] general Narrative - Reported* Type Description Date Medical History high blood pressure Medical History high cholesterol [facility] Other Hisklnt general Narrative - Reported* Type Description Date [...] LEFT HERNIA 1989 Hospitalization History SEE SURGICAL HX [facility] Other Histhys general Narrative - Reported* Type Description Date [...] LEFT HERNIA 1989 Hospitalization History SEE SURGICAL HX [facility] Other Hospital course Narrative No data available for this section [facility] Discharge instructions No data available for this section [facility] progress note No data available for this section [facility] [employer] Summary Purpose Family History No Family History [...] X 2 DAYSTBH FOLLOW UPWELLNESSNo InformationNo InformationrefillRefillCT results/ECHONo InformationPFT resultsPrescription changeMedication change (unrecognized sect ion and content) No Status Records FoundNo Status Records FoundNo Status Records FoundNo Status Records Found INFORMATION SOURCE (unrecogn ized section and content) DATE CREATED AUTHOR [facility]20[facility] DATE CREATED AUTHOR AUTHOR'S ORGANIZ ATION 04/13/2023 [facility] DATE CREATED AUTHOR AUTHOR'S ORGANIZ ATION 06/17/2023 [facility] DATE CREATED AUTHOR AUTHOR'S ORGANIZ ATION 07/01/2023 [facility] Patient Care team informatio n (unrecognized section and content) Team Status: Active Member Role Status Dates Gio Jasso DO Primary Care Provider Active Team Status: Inactive Member Role Status Dates Gio Jasso , Primary Care Provider Active Theresa Arirola PA-C Attending Provider Active Goals (unrecognized section [...] BE BASED ON THE PRIMARY CLINICAL RECORDS. [facility] provides no warranty or guarantee of the accuracy or completeness of information in this document.
[2023-07-05 07:31] LABS: Estimated GFR (African America >60 (>=60); Estimated GFR (Non-African Ame 56 (>=60)
== END 2023-07-05 07:15 | disposition home or self-care (01) ==
LOC: LAB 07:14
PROVIDERS: PCP Internal Medicine; Visit Provider Urology
DX: R31.0 Gross hematuria (principal); N28.1 Cyst of kidney, acquired; N40.1 Benign prostatic hyperplasia with lower urinary tract symptoms; K80.20 Calculus of gallbladder without cholecystitis without obstruction; K57.90 Diverticulosis of intestine, part unspecified, without perforation or abscess without bleeding
CPT/HCPCS: 36415; 74178; 82565; Q9967

== ENCOUNTER 2023-11-24 06:46 | Outpatient (OUT) | payer MEDICARE, SELFPAY ==
--- OUTSIDE RECORDS SUMMARY | 2023-11-24 06:51 | XMS_ITS | CCD ---
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[employer] Name Role Phone GIO JASSO Primary Care Physician Sybil Lee Unavailable Gina Starks Unavailable Gio Jasso Unavailable MAO, DR POWERS Admitting Unavailable BALL, DR POWERS Attending Unavailable BALL, DR POWERS Consulting Unavailable MAO, DR POWERS Primary Care Unavailable MAO, DR POWERS Admitting Unavailable BALL, DR POWERS Primary Care Unavailable MAO, DR POWERS Attending Unavailable BALL, DR POWERS Consulting Unavailable BALL, DR POWERS Attending Unavailable BALL, DR POWERS Consulting Unavailable BALL, DR POWERS Primary Care Unavailable BALL, DR POWERS Admitting Unavailable MCKENZIE, ALEXA Consulting Unavailable MAO, DR POWERS Admitting Unavailable BALL, DR POWERS Attending Unavailable MAO, DR POWERS Primary Care Unavailable HOY ., DR MCCOY Consulting Unavailable LILLY ., DR BELA Merida Admitting Unavailable LILLY ., DR BELA Merida Attending Unavailable BALL, DR POWERS Primary Care Unavailable LILLY ., DR BELA Merida Consulting Unavailable PAY ., DR OROZCO Consulting Unavailable GABY ., PHUC Consulting Unavailable RAYNA, CODY Consulting Unavailable DARAMOLA, MACIE Consulting Unavailable NEWATIA, GRACIE Consulting Unavailable MAO, DR POWERS Admitting Unavailable BALL, DR POWERS Attending Unavailable BALL, DR POWERS Consulting Unavailable BALL, DR POWERS Primary Care Unavailable Le, Lidya Consulting Unavailable Mao, DO Powers Primary Care Provider [phone] EARL Arriola Attending Provider Theresa Arriola Attending Unavailable Theresa Arriola Admitting Unavailable Gio Jasso Primary Care Unavailable ERIKA HAMILTON, DUY Tse Attending Unavailable Meghan Brito Attending Unavailable Meghan Brito Attending Unavailable Meghan Brito Attending Unavailable Meghan Brito Admitting Unavailable Meghan Brito Attending Unavailable Meghan Brito Referring Unavailable Meghan Brito Attending Unavailable Meghan Brito Referring Unavailable Meghan Brito Admitting Unavailable Meghan Brito Admitting Unavailable Meghan Brito Attending Unavailable Meghan Brito Attending Unavailable Meghan Brito Attending Unavailable Meghan Brito Attending Unavailable Meghan Brito Attending Unavailable Meghan Brito Attending Unavailable THERESA ARRIOLA Attending Unavailable THERESA ARRIOLA Attending Unavailable Allergies Allergy Classification Reported Allergen(s) Allergy Type Date of Onset Reaction(s) Facility Cephalosporins (antibiotic) (1 source) Cephalexin; Translations: [Cephalexin Monohydrate] Drug Allergy [facility] Repository Penicillins (antibiotic) (1 source) Penicillins; Translations: [penicillins] Drug Allergy [facility] Repository (15 sources) Cephalexin; Translations: [cephalexin] Drug Allergy 0 Unknown (qualifier value), Dyspnea (finding) [facility] [employer] Other (16 sources) Penicillins; Translations: [penicillins] Drug allergy 6 Unknown (qualifier value), Dyspnea (finding) [facility] (2 sources) Penicillin V Drug Allergy rash/cough [facility] [employer] Other (13 sources) Cephalexin; Translations: [Keflex] Drug Allergy 6 rash/cough [facility] Repository (11 sources) Penicillin Drug Allergy rash/cough [facility] [employer] Other (7 sources) Keflex *CEPHALOSPORINS * Propensity to adverse reactions 8 Unknown [facility] Other (2 sources) Penicillin G Benzathine & Proc Drug allergy 8 Unknown [facility] Other (2 sources) patient allergy list reviewed by nurse or physicia Propensity to adverse reactions 8 Comment:Done [facility] Other (1 source) Cephalexin Drug Allergy 0 [facility] Repository Medications Current Medications Medication Drug Class(es) Dates Sig (Normalized) Sig (Original) [id number] actuat albuterol 0.09 mg/actuat metered dose [...] hydrochloride 10 mg extended release oral tablet (17 sources) alpha-Adrenergic Mary Start: 07-28-2023 take 1 tablet by mouth once daily alfuzosin 10 mg ER Tab 10 mg = 1 tab(s), Oral, Daily, # 90 tab(s), Refills(s) 3, [facility]acy: [facility], 180, cm, 06/16/23 9:50:00 EST, Height/Length Dosing, 108.2, kg, 06/16/23 9:50:00 EST, Weight Dosing Start Date: 07/28/23 Status: Ordered Start: 01-30-2023 take 1 tablet by chris th once daily alfuzosin 10 mg ER Tab 10 mg = 1 tab(s), Oral, Daily, # 30 tab(s), Refills(s) 5, Pharmacy: [facility], 180, cm, 12/20/22 10:13:00 EDT, Height/Length Dosing, 102.5, kg, 12/20/22 10:13:00 EDT, Weight Dosing Start Date: 01/30/23 Status: Ordered Start: 07-14-2022 take 1 tablet by chris once daily alfuzosin 10 mg ER Tab 10 mg = 1 tab(s), Oral, Daily, # 30 tab(s), Refills(s) 5, [facility]acy: [id number], 180, cm, 10/26/21 9:12:00 EDT, Height/Length Dosing, 95.2, kg, 10/26/21 9:12:00 EDT, Weight Dosing Start Date: 07/14/22 Status: Ordered Start: 07-08-2021 take 1 tablet by [facility] once daily alfuzosin 10 mg ER Tab 10 mg = 1 tab(s), Oral, Daily, # 30 tab(s), Refills(s) 11, [facility]: [id number] [facility], 180, cm, 07/08/21 15:57:00 EST, Height/Length [...] day(s), # 2 tab(s), Refills(s) 0, Pharmacy: [facility], 180, cm, 05/10/23 10:56:00 EST, Height/Length Dosing, 102, kg, 05/10/23 10:56:00 EST, Weight Dosing Start Date: 05/10/23 Stop Date: 05/11/23 Status: Ordered diazePAM 10 mg oral tablet (4 sources) Benzodiazepine Start: 05-10-2023 Valium 10 mg T ab 10 mg = 1 tab(s), Oral, Once, take 30 minutes prior to procedure, # 1 tab(s), Refills(s) 0, Pharmacy: [facility], 180, cm, 05/10/23 10:56:00 EST, Height/Length [...] at 11pm Orally BID for 1 days BIN:[id number] PCN: [id number] GROUP:[id number] ID:[id number] October, Not-Taking/PRN Start: 11-17-2020 Plenvu 140 GM dose 1 pouch at 4pm, dose 2 pouch A & B at 11pm Orally BID for 1 days BIN:[id number] PCN: CNRX GROUP:[id number] ID:[id number] October, Not-Taking Start: 11-17-2020 Plenvu 140 GM dose 1 pouch at 4pm, dose 2 pouch A & B at 11pm Orally BID for 1 days BIN:[id number]: CNRXGROUP:[id number] October, Not-Taking Start: 11-17-2020 Plenvu 140 GM dose 1 pouch at 4pm, dose 2 pouch A & B at 11pm Orally BID for 1 days BIN:[id number]: CNRXGROUP:[id number] October, Active methylPREDNISolone 4 mg oral tablet [...] Episodic Inflammatory conditions of male genital organs (13 sources) Chronic prostatitis; Translations: [Chronic prostatitis] Onset: 07-31-2023 04-23-2020 Chronic Osteoarthritis (12 sources) Arthritis 01-29-2019 Chronic Other aftercare (1 source) Other retirement (current) drug therapy; Translations: [OTH [facility] CURRENT DRUG THERAPY] Onset: 08-30-2022 Episodic Other aftercare (2 sources) Long-term current use of drug therapy; Translations: [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] Episodic Other and unspecified benign neoplasm (11 sources) Lipoma of back; Translations: [Benign lipomatous neoplasm of skin and subcutaneous tissue of trunk] Episodic Other and unspecified benign neoplasm (2 sources) Lipoma of skin and subcutaneous tissue of trunk; Translations: [Benign lipomatous neoplasm of skin and subcutaneous tissue of trunk] Episodic Other diseases of kidney and ureters (2 sources) Urinary tract obstruction; Translations: [Other obstructive and reflux uropathy] Onset: 10-26-2021 Episodic Other liver diseases (1 source) Abnormal levels of other serum enzymes Episodic Other male genital disorders (6 sources) Male erectile dysfunction, unspecified; Translations: [Erectile [...] of mental health and substance abuse codes (7 sources) Personal history of nicotine dependence; Translations: [H/O: Disorder] Onset: 08-30-2022 Episodic Substance-related disorders (20 sources) Smoker; 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] Onset: 03-02-2018 Resolved: 11-18-2021 04-23-2020 Chronic Unclassified (12 sources) Finding of sensation of bladder 03-26-2020 [...] Onset: 04-03-2023 Varicose veins of lower extremity (18 sources) Varicose veins of lower extremity; Translations: [...] Test Name Value Interpretation Reference Range Facility Reminderson 11-16-2023 Reminders - From: Carissa Hammonds To: EU - Recalls Lue; Sent: 06/16/2023 11:03:12 EST Show up: 11/15/2023 12:03:00 EDT Subject: PSA and CT scan Reminder Message Please Remember to:_have pt get PSA and CT pelvis wo con done prior to appt. Pt had CT done on 07/05/23, scoped by KML on 07/31/23. CTU reviewed at that time. Pt to follow up in 4-5 months w/ PSA, possible surgery discussed for prostate size. [facility] Consent for Procedure/Surger yon 07-31-2023 Consent for Procedure/Surgery [id number] 6#1.00TIFF [facility] Consent for Treatmenton Consent for Treatment [id number] #1.00TIFF [facility] Inpatient Patient Summaryon 07-31-2023 Inpatient Patient Summary [place] [id number] Clinical Summary Person Information Name: MICHAEL KILLIAN Age: 68 Years : 1955 Sex: Male PCP: GIO JASSO DO Marital Status: Race: White Ethnicity: Non- or Language: Botswanan Visit Id: Visit Reason: GROSS HEMATURIA Speciality: Acuity: Enc Type: Outpatient Med Service: Surgery Arrival: 07/31/2023 07:51:46 Discharge: Dispo Type: Address: [address] [place] [address] [id number] Provider Notes: Diagnosis: BPH with urinary obstruction; Chronic prostatitis; Feeling of incomplete bladder emptying; Gross hematuria; Other obstructive and reflux uropathy Problems Active ED (erectile dysfunction) Former smoker Chronic prostatitis Elevated PSA BPH with urinary obstruction Smoker Feeling of incomplete bladder emptying Hyperlipidemia Varicosities of leg Gastroesophageal reflux HTN (hypertension) Arthritis Nocturia Hesitancy Weak urine stream Smoking Status: Functional Status: Sensory Deficits: History of Falls: Mobility Assistance Prior to Admission: ADLs: Current Level of Assistance for Self-Care/Mobility: Cognitive Status: Allergies penicillins (SOB - Shortness of breath) Cephalexin Monohydrate (SOB - Shortness of breath) Laboratory or Other Results This Visit (last charted value for your 07/31/2023 visit) No Laboratory or Other Results This Visit Measurements: Height: 180 cm Weight: Blood Pressure: Not Valued / Not Valued BMI: Procedures No Procedures Documented Immunizations No Immunizations Documented This Visit Final Med List: alfuzosin (alfuzosin 10 mg ER Tab) 1 Tablets By Mouth every day. Refills: 3. carvedilol (carvedilol 6.25 mg Tab) 1 Tablets By Mouth 2 times a day. lisinopril (lisinopril 40 mg Tab) By Mouth every day. Care Team Members: Attending Physician: Meghan Brito MD Consulting Physician: Referring Physician: Meghan Brito MD Follow up: With: Address: When: Meghan Brito [address] [place] [address], [place] [phone] [facility] (1) Comments: Office to schedule follow up in 3-4 months or call sooner for procedure (pt knows will be done by partner/referred out if during leave) Patient Education Information: Robot-Assisted Laparoscopic Radical Prostatectomy; Transurethral Resection of the Prostate; EU - Cystoscopy Discharge Instructions (CUSTOM) [facility] IntraOperative Documentson 0 07-31-2023 IntraOperative Documents [id number] 6#1.00TIFF [facility] Main OR Intraoperative Recor don 07-31-2023 Main OR Intraoperative Record IntraOp Document Type FTURO Summary Primary Physician: Meghan Brito MD Finalized Date/Time: 07/31/23 09:01:26 Pt. Name: MICHAEL KILLIAN/Sex: 1955 Male Med Rec #: [id number] Physician: Meghan Brito MD Financial #: [id number] Pt. 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 Surgeon Description CYSTO Primary Procedure Yes Primary Surgeon Meghan Brito MD Start 07/31/23 08:56:00 Stop 07/31/23 09:02:00 Anesthesia Type Local Surgical Service Urology Wound Class 2 - Clean-Contaminated Last Modified By: Marge ENCISO, DARSHANAOR, Purnima 07/31/23 09:00:56 General Case Data FTURO Pre-Care Text: Classifies surgical wound, implements aseptic technique, initiates traffic control Entry 1 Case Information OR URO 1 FT Case Level None Wound Class 2 - Clean-Contaminated Specialty Urology Preop Diagnosis GROSS HEMATURIA Postop Same As Preop No Postop Diagnosis enlarged prostate Outcomes Met? Yes Last Modified By: Marge ENCISOJAY Ruthann 07/31/23 09:00:42 Post-Care Text: The patient is free from signs and symptoms of infection EU IntraOp - FTURO Pre-Care Text: Implements protective measures prior to operative or invasive procedure, confirms identity before the operative or invasive procedure, verifies operative procedure, surgical site, and laterality Entry 1 EU Perioperative Protocols Procedure(s) CYSTOSCOPY LOCAL(.) Patient Identity Birthday, ID Band Verified (select at Check, Patient least 2): Participation Consents / H and P HandP, Surgery/Procedure Operative Site N/A Verified Consent Marking Verified Surgical Site Yes Laterality Verified n/a Verified Procedure Verified Yes Correct Patient Yes Position Verified Availability Equipment, Medication Time Out Meghan Brito MD, Verified (If Participants JAY Bird RN, Applicable) Bette Felton CST, Rachana Alcantar Time Out Complete 07/31/23 08:49:00 Allergies Reviewed? Yes Allergies Reviewed Self/Patient With Body Position Supine Prep Area penis Prep Agents Betadine Solution Skin. Condition Unable to Visualize Additional None Specimens Collected Vitals - EU Blood Pressure 181/81 Pulse 67 bpm Respirations SPO2 EBL 0 IandO - EU Total Intake 0 mL Total Output 0 mL Outcomes Met? Yes Last Modified By: JAY Bird RN, Ruthann 07/31/23 08:58:59 Post-Care Text: The patient is free from signs and symptoms of injury caused by extraneous objects Sign Out FTURO Entry 1 Before Patient Leaves OR Nurse verbally Yes Nurse verbally n/a confirms with the confirms with the team the name of team that the procedure(s) instrument, sponge, recorded and needle counts are correct (or N/A) Nurse verbally n/a Nurse verbally n/a confirms with the confirms with the team how the team whether there specimen is labeled are any equipment (including patient problems to be name), if applicable addressed Sign Out Complete 07/31/23 09:03:00 Last Modified By: JAY Bird RN, Ruthann 07/31/23 09:01:25 Case Comments Finalized By: JAY Bird RN, Ruthann Document Signatures Signed By: JAY Bird RN, Ruthann 07/31/23 09:01 Normal [facility] Main OR Preoperative Recordo n 07-31-2023 Main OR Preoperative Record Holding Area Document Type FTURO Summary Primary Physician: Meghan Brito MD Finalized Date/Time: 07/31/23 08:50:15 Pt. Name: MICHAEL KILLIAN /Sex: 1955 Male Med Rec #: [id number] Physician: Meghan Brito MD Financial #: [id number] Pt. Type: O Room/Bed: / Admit/Disch: 07/31/23 07:51:46 - Institution: Case Times Holding FTURO Pre-Care Text: Verifies consent for planned procedure, identifies individual values and wishes concerning care, includes family members in perioperative teaching Secures patient's records' belongings, and valuables, maintains patient's dignity and privacy, and maintains patient confidentiality Entry 1 In Holding 07/31/23 08:11:00 Outcomes Met? Yes Last Modified By: Rachana Mena RN 07/31/23 08:11:26 Post-Care Text: The patient participates in decisions affecting his or her perioperative plan of care The patient's right to privacy is maintained Surgery Checklist FTURO Entry 1 Patient Birthday, ID Band Procedure History and Physical, Identification: Check, Patient Verification: Surgical Consent, With Participation Patient NPO after Midnight: n/a Personal Items: Glasses Personal Items GLASSES Limitations: UP AD YEHUDA Comment: Complaints of Pain: No Pain Comment: 0/10 Skin Integrity Dry, Warm Vitals - EU Blood Pressure 181/81 Pulse 67 bpm Respirations 16 br/min SPO2 96 % Additional None RN Reviewed Yes Specimens Collected Last Modified By: Rachana Mena RN 07/31/23 08:13:05 Finalized By: JAY Bird RN, Ruthann Document Signatures Signed By: Rachana Mena RN 07/31/23 08:13 JAY Bird RN, Ruthann 07/31/23 08:50 Normal [facility] Operative Reporton Operative Report Patient: MICHAEL KILLIAN Age: 68 years Sex: Male : 1955 Associated Diagnoses: None Author: Meghan Brito MD Procedure Operative Information Details: Date/ Time: 07/31/2023 09:06:00. Pre-Op Dx: BPH with urinary obstruction (FML70-ZX N40.1, Discharge, Medical), Feeling of incomplete bladder emptying (SVC07-FG R39.14, Discharge, Medical), Gross hematuria (TCD94-XM R31.0, Discharge, Medical). Post-Op Dx: Same. Anesthesia Type: Local. Procedure: Local Cystoscopy. Complications: None. Risks/Benefits/Infor med Consent: Surgical risks, benefits, details of the procedure have been explained to the patient, Full informed consent has been obtained. Intraoperative Information Prepped: Patient is brought back to the endoscopy suite, Patient is placed in supine position, Patient prepped in the usual fashion with Betadine solution, 2% Xylocaine Jelly is placed per Urethra, After waiting several minutes the Cystoscope is introduced. The Urethra is: Normal. The Prostatic Urethra is: Obstructed, Severe trilobar hypertrophy with large intravesical median lobe. The Bladder is: Normal, Trabeculated Moderate trabeculations with scattered small diverticuli along the inferior bladder wall and 1 cm diverticulum on posterior wall. , No bladder tumors, lesions, stones or foreign bodies.. The ureteral orifices: Show efflux of clear urine. Devices Implanted: None. Removal: Cystoscope is removed, The patient tolerated it well. Postoperative Information Discharge: Follow up arranged, Dc home. No evidence of malignancy today. Very large prostate. Again patient declines any additional medications understanding his risk of bladder decompensation. Discussed outlet procedures including TURP (possibly staged) versus robotic simple prostatectomy. Patient would like to research and review his options, he will call with his decision. He understands if this is during my leave it will be done by a partner or referred out. See separate clinic note for further details regarding BPH workup and gross hematuria. . Normal [facility] Comment on above: Result Comment: Elec tronically Signed By: Daryl HAMILTON, Meghan Oshea.leslie\Date and Time Signed: 07/31/23 09:10 EST Outpatient Surgery Discharge Instructionon 07-31-2023 Outpatient Surgery Discharge Instruction [place] [id number] Patient Discharge Instructions PERSON INFORMATION Name: MICHAEL KILLIAN Date of : 1955 Current Date: 07/31/2023 09:05:55 PHYSICIANS Admitting Physician: Daryl HAMILTON, Meghan Tucker Comment: Discharge Diagnosis: BPH with urinary obstruction; Chronic prostatitis; Feeling of incomplete bladder emptying; Gross hematuria; Other obstructive and reflux uropathy MICHAEL KILLIAN has been given the following list of follow-up instructions, prescriptions, and patient education materials: IF UNABLE TO CONTACT YOUR PHYSICIAN AND YOU FEEL IT IS AN EMERGENCY, GO TO THE NEAREST EMERGENCY ROOM OR CALL 911 Follow up: With: Address: When: Meghan Brito [address] [place] [address], [place] [id number], [employer] [place] [address] [place] [phone] [email or web address] (1) Comments: Office to schedule follow up in 3-4 months or call sooner for procedure (pt knows will be done by partner/referred out if during leave) Comment: PATIENT EDUCATION INFORMATION Instructions: Robot-Assisted Laparoscopic Radical Prostatectomy (You would undergo Simple Prostatectomy, the below is for cancer) Robot-assisted laparoscopic radical prostatectomy is surgery done to remove the entire prostate and nearby tissue. This includes the seminal vesicles, which are near the bladder and the prostate. This procedure is done to treat prostate cancer that has not spread (metastasized) to other parts of the body. The goal of the surgery is to remove all cancer cells to help keep the cancer from metastasizing. During this procedure, the surgeon makes several incisions in the abdomen instead of one large incision. A long, thin, lighted tube with a tiny camera on the end (laparoscope) is put into one of the incisions. This allows the surgeon to see inside the abdomen. Other surgical tools are put in through the other incisions and used to take out the prostate and nearby tissues. The surgeon uses robotic arms to control these tools while sitting at a computer near the operating table. Lymph nodes in the pelvis may also be removed. Lymph nodes are part of the body's disease-fighting system (immune system). When prostate cancer spreads, it tends to go to the lymph nodes in the pelvis first. If the pelvic lymph nodes are removed, they will be checked for cancer cells. Tell a health care provider about: ? Any allergies you have. ? All medicines you are taking, including vitamins, herbs, eye drops, creams, and hshj-bka-ernksnu medicines. ? Any problems you or family members have had with anesthetic medicines. ? Any bleeding problems you have. ? Any surgeries you have had. ? Any medical conditions you have. ? Any prostate infections you have had. What are the risks? Generally, this is a safe procedure. Still, problems may occur, including: ? Infection. ? Bleeding. ? Allergic reactions to medicines. ? Damage to nearby structures or organs, such as the rectum, ureters, urethra, bladder, or small intestine. ? Blockage (obstruction) of the large or small intestines. ? Problems that affect urination or sexual function. These may include: ? Narrowing or scarring of the urethra (stricture), which may block the flow of urine. ? Inability to control when you urinate (incontinence). ? Inability to get or keep an erection (erectile dysfunction). ? Dry ejaculation. This is when no semen comes out during orgasm. ? The formation of a sac (cyst) in the pelvis that is filled with fluid from the lymph glands (lymphocele). ? Blood clots in the legs. What happens before the procedure? Staying hydrated Follow instructions from your health care provider about hydration, which may include: ? Up to 2 hours before the procedure ? you may continue to drink clear liquids, such as water, clear fruit juice, black coffee, and plain tea. Eating and drinking restrictions Follow instructions from your health care provider about eating and drinking, which may include: ? 8 hours before the procedure ? stop eating heavy meals or foods, such as meat, fried foods, or fatty foods. ? 6 hours before the procedure ? stop eating light meals or foods, such as toast or cereal. ? 6 hours before the procedure ? stop drinking milk or drinks that contain milk. ? 2 hours before the procedure ? stop drinking clear liquids. Medicines ? Ask your health care provider about: ? Changing or stopping your regular medicines. This is especially important if you are taking diabetes medicines or blood thinners. ? Taking medicines such as aspirin and ibuprofen. These medicines can thin your blood. Do not take these medicines unless your health care provider tells you to take them. ? Taking wfir-xvm-jtivksy medicines, vitamins, herbs, and supplements. ? Follow your health care provider's instructions about cleaning out your bowels. Surgery s (more content not included)... [facility] Progress Note-Physicianon Progress Note-Physician Patient: MICHAEL KILLIAN Age: 68 years Sex: Male : 1955 Associated Diagnoses: None Author: Daryl HAMILTON, Meghan Tucker Health Status Allergies: Allergic Reactions (Selected) Mild Cephalexin Monohydrate- Sob - shortness of breath. Penicillins- Sob - shortness of breath., Allergies (2) Active Severity Reaction Cephalexin Monohydrate Mild SOB - Shortness of breath penicillins Mild SOB - Shortness of breath Current medications: (Selected) Prescriptions Prescribed alfuzosin 10 mg ER Tab: 10 mg = 1 tab(s), Oral, Daily, # 90 tab(s), Refills(s) 3, Pharmacy: [facility], 180, cm, 06/16/23 9:50:00 EST, Height/Length Dosing, 108.2, kg, 06/16/23 9:50:00 EST, Weight Dosing Documented Medications Documented carvedilol 6.25 mg Tab: 6.25 mg = 1 tab(s), Oral, BID, # 60 tab(s), Refills(s) 0 lisinopril 40 mg Tab: mg tab(s), Oral, Daily, Refills(s) 0 Impression and Plan Assessment and Plan: Diagnosis: BPH with urinary obstruction (WIZ46-QG N40.1, Discharge, Medical), Pelvic lymphadenopathy (UES58-FN R59.0, Working, Medical), Chronic prostatitis (AUU95-AX N41.1, Discharge, Medical), Feeling of incomplete bladder emptying (XNI15-BF R39.14, Discharge, Medical), Gross hematuria (PEK59-PY R31.0, Discharge, Medical). Assessment and Plan: Diagnosis: BPH with urinary obstruction (NGU48-ND N40.1, Discharge, Medical), Chronic prostatitis (YGK45-FP N41.1, Discharge, Medical), Feeling of incomplete bladder emptying (GLC61-BX R39.14, Discharge, Medical), Gross hematuria (OJO71-NG R31.0, Discharge, Medical), Pelvic lymphadenopathy (FTN53-BU R59.0, Working, Medical). 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 Gross hematuria - after Urocuff CTU 07/05/23 at [facility] - neg for upper tract filling defects or hydronephrosis. Known nonspecific bilateral pelvic lymph nodes ( R pelvic sidewall 1x1.7 cm, L ext iliac 1.2x1.6 cm) Overall stable to minimally enlarged. Multiple neg prostate biopsies and MRIs. No bladder cancer on cystoscopy today. Urine cytology essentially negative (rare atypia consistent with degeneration) Cystoscopy today without signs of malignancy. -Continue symptomatic monitoring 2. BPH with urinary obstruction (N40.1: Benign prostatic hyperplasia with lower urinary tract symptoms) Pt states that he had tried Tamsulosin in the past, did not help as much. Taking Alfuzosin 10mg ER qd. Has had some sx improvement. Does not feel he always empties. Urocuff 06/30/23: PVR 208 cc (prior 91cc), obstructed on nomogram. Smaller functional bladder capacity, abdominal straining at the end of stream. Qmax 5.5, Pdet 120 cm H2O Severe trilobar hypertrophy on cystoscopy, large intravesical median lobe Again discussed alternative medications including finasteride to help treat the prostate size, which he declines based on side effects. Discussed risks and benefits of management options including TURP (possibly staged due to large size) versus robotic simple prostatectomy. Patient wants to research and think about his options and call if he does elect to proceed with a surgery. He understands this may be done by a partner/ referred based on timing. Otherwise he will follow-up in 4 to 5 months to see how he was doing. -Timed voids, behavioral modifications -Cont Alfuzosin -patient to call with surgical decision, Otherwise he will follow-up in 4 to 5 months with PVR [facility] Comment on above: Result Comment: Elec tronically Signed By: Daryl HAMILTON, Meghan Oshea.leslie\Date and Time Signed: 07/31/23 12:31 EST RAD - CT Reporton 07-10-2023 RAD - CT Report [id number]# 1.00TIFF [facility] Lab Reportson 07-07-2023 Lab Reports [id number]# 1.00TIFF [facility] Lab Reports [id number] #1.00TIFF [facility] Urine Cytology ([facility])on 0 07-05-2023 Urine Cytology Diagnosis Info Invalid Interpretation Code [facility] Comment on above: Result Comment: A:Ur ine,Urine:Voided Interpretation - MicroScopic Description - Adequacy - Gross Description Site ID:A color Dark [place] fixative Alcohol Specimen designated Urine received in alcohol preservative and labeled with the patient?s name, consists of 110ml cloudy dark peach fluid. Electronically signed by : on: 07/05/2023 13:00:05 Performed By: #### 1 [id number] ####[place] [id number] Urine Cytology ([facility])on 06-30-2023 UC Method of Extraction Voided [facility] Comment on above: Performed By: #### 1 [id number] ####[address] Number of Jars 1 Invalid Interpretation Code [facility] Comment on above: Performed By: #### 1 [id number] ####[place] [id number] UC Specimen Urine [facility] Comment on above: Performed By: #### 1 [id number] ####[place] [id number] Type of Service Technical Only Normal [facility] Comment on above: Performed By: #### 1 [id number] ####[address] [address] IntraOperative Documentson 1 08-23-2022 IntraOperative Documents [id number] 0#1.00TIFF [facility] Pathology Noteon 06-22-2023 Pathology Note [id number] #1.00TIFF [facility] Screenson 06-20-2023 Screens [id number] #1.00TIFF [facility] Screens [id number] #1.00TIFF [facility] Ambulatory Visit Summaryon 1 08-17-2022 Ambulatory Visit Summary MICHAEL KILLIAN :1955 Visit Date:06/16/2023 Ambulatory Visit Instructions Your Diagnosis Elevated PSA BPH with urinary obstruction ED (erectile dysfunction) Former smoker Enlarged lymph node Tests Performed Urnls Dip Stick Auto w/o Microscopy POC 25056 CT Pelvis w/o Contrast -- Results Pending -- Please visit your patient portal for your results or contact your primary care physician. Your Care Team Attending Physician - Daryl HAMILTON, Meghan Tucker Primary Care Physician - MAO CONNOR, GIO This Is Your Medications List Contact [...] 9:15 AM EST Where: [facility] Patient Educationon 06-16-20 23 Patient Education [...] Where to find more information ? The [place] [employer]: www.cancer.org ? [place] [employer] Association: www.auanet.org Contact a health care [...] flu (more content not included)... [facility] Urology Office/Clinic Noteon 06-16-2023 Urology Office/Clinic Note Chief Complaint S/P to MRI proste and review path [facility] Staff S/p to MR prostate wo/ w con @ [facility] on 04/03/23 Review path report done 06/06/23 [...] consent jane (more content not included)... [facility] Comment on above: Result Comment: Elec tronically Signed By: Meghan Brito MD\.br\Date and Time Signed: 06/16/23 15:18 EST\.br\Electronically Co-Signed By: Carissa Hammonds\.br\Date and Time Co-Signed: 06/16/23 11:02 EST Main OR Intraoperative Recor don 06-09-2023 Main OR Intraoperative Record IntraOp Document Type FT Summary Primary Physician: Meghan Brito MD Finalized Date/Time: 06/09/23 09:45:57 Pt. Name: MICHAEL KILLIAN./Sex: 1955 Male Med Rec #: [id number] Physician: Meghan Brito MD Financial #: [id number] Pt. Type: A Room/Bed: [place] [address] Admit/Disch: 06/06/23 13:31:36 - 06/06/23 18:00:13 Institution: Case Times FT Entry 1 Patient Times In Room 06/06/23 16:29:00 Out Room 06/06/23 16:55:00 Procedure Times Start 06/06/23 16:39:00 Stop 06/06/23 16:49:00 Anesthesia Times Last Modified By: Jacinta Don Ii 06/09/23 09:41:07 General Comments: 06/09/23 Chart opened to review and send charges LRoth CSFA Case Attendance FT Entry 1 Entry 2 Entry 3 Case Attendee Meghan Brito MD, Kendall R Letrondo, Alfons Ii F Role Performed Surgeon - Primary Scrub - Primary Brazing Machine Operator - Primary Time In 06/06/23 16:38:00 06/06/23 [...] and tissue Entry 1 Skin Integrity Intact, Questa, Warm, and Skin Abnormality No Dry Outcomes [...] Board Right (more content not included)... [facility] Discharge Instructionson Discharge Instructions [id number] 9#1.00TIFF [facility] IntraOperative Documentson 1 08-09-2022 IntraOperative Documents [id number] 5#1.00TIFF [facility] IntraOperative Documents [id number] 9#1.00TIFF [facility] IntraOperative Documents [id number] 9#1.00TIFF [facility] Preoperative Documentson Preoperative Documents [id number] 5#1.00TIFF [facility] Consent for Procedure/Surger yon 06-06-2023 Consent for Procedure/Surgery [id number] 58#1.00TIFF [facility] Consent for Treatmenton 05-26 Consent for Treatment [id number] #1.00TIFF [facility] Discharge Instructionson Discharge Instructions MICHAEL KILLIAN :1955 [...] 17:16 EST H&P Updateon 06-06-2023 H&P Update [id number] 9#1.00TIFF [facility] Inpatient Patient Summaryon 06-06-2023 Inpatient Patient Summary [place] [id number] [facility] Clinical Discharge Instructions PERSON INFORMATION Name: MICHAEL [...] Location Start Finish State URO Office Visit [facility] 06/14/2023 10:30 AM 06/14/2023 10:45 AM [...] Tab) By Mouth every day. Comment: [facility] Operative Reporton Operative Report Patient: MICHAEL KILLIAN Age: 68 [...] . Impression and Plan Diagnosis Elevated PSA (PCV66-RS R97.20, Discharge, Medical). Diagnosis Elevated PSA (TOP03-HN R97.20, Discharge, Medical). [facility] Comment on above: Result Comment: Elec tronically Signed By: Meghan Brito MD\.br\Date and Time Signed: 06/06/23 16:58 EST Outpatient Surgery Discharge Instructionon 06-06-2023 Outpatient Surgery Discharge Instruction [place] [id number] Patient Discharge Instructions PERSON INFORMATION Name: MICHAEL [...] Location Start Finish State [place] Office Visit [facility] EU Nas 06/14/2023 10:30 AM 06/14/2023 10:45 AM Confirmed Pharmacy Information: Other: [facility] You may receive a survey from Nicolas Marvin asking you to rate your care experience. Your feedback is important and will help us understand what we do well and how we can improve the quality of care we provide to you, your loved ones and our community. It?s an honor to serve you. Thank you for choosing [facility] HERE ARE THE MEDICATION CHANGES THAT OCCURRED [...] near your rectum, especially while sitting. ? Questa-colored urine due to small amounts of blood [...] urinating or catheter-related problems Medication Leaflets: [place] [facility] Patient Education - Texton 1 08-07-2022 Patient Education - Text Transperineal?Biopsy of the Prostate Discharge Instructions After the procedure, it is common to have: ? Pain and discomfort near your rectum, especially while sitting. ? Questa-colored urine due to small amounts of blood [...] you have difficulty urinating or catheter-related problems [facility] Outside Recordson 05-15-2023 Outside Records [id number] 5#1.00TIFF [facility] Ambulatory Visit Summaryon 1 07-12-2022 Ambulatory Visit Summary MICHAEL KILLIAN :1955 Visit Date:05/10/2023 Ambulatory Visit Instructions Your Diagnosis Elevated PSA BPH with urinary obstruction Tests Performed Urnls Dip Stick Auto w/o Microscopy POC 40637 Your Care Team Attending Physician - Meghan Brito MD Primary Care Physician - GIO JASSO DO [...] Appointments Monday 2:30 PM EST With: Where: [facility] Surgical Services Monday 10:30 AM EST With: [...] Where to find more information ? The [place] [employer]: www.cancer.org ? [place] [employer] Association: www.auanet.org Contact a health care [...] adds flu (more content not included)... [facility] [place] 05-10-2023 Screens [id number] 1#1.00TIFF [facility] Screens [id number] 3#1.00TIFF [facility] Urology Office/Clinic Noteon 05-10-2023 Urology Office/Clinic Note [...] cancer upon bx. 95% likelihood of detecting [place] scores >=7 cancer. Today I reviewed the [...] the office notified. 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 2. BPH [...] -Timed voids (more content not included)... [facility] Comment on above: Result Comment: Elec tronically Signed By: Meghan Brito MD\.br\Date and Time Signed: 05/10/23 11:31 EST\.br\Electronically Co-Signed By: Nevaeh Padilla\.br\Date and Time Co-Signed: 05/10/23 11:22 EST Lab Reportson 04-18-2023 Lab Reports [id number] #1.00TIFF [facility] Physician Orderon 04-13-2023 Physician Order [id number] #1.00TIFF [facility] Formson 04-12-2023 Forms [id number] #1.00TIFF [facility] Lab Reportson 04-12-2023 Lab Reports [id number] #1.00TIFF [facility] Patient Educationon 04-11-20 Patient Education Oncology Prostate [...] Where to find more information ? The [place] Cancer [employer]: www.cancer.org ? [place] [employer] Association: www.auanet.org Contact a health care [...] adds flu (more content not included)... [facility] Urology Office/Clinic Noteon 04-11-2023 Urology Office/Clinic [...] no discrete nodule appreciated. Assessment/Plan Former Dr. Kren pt BUD 19. 1. Elevated PSA (R97.20: [...] given order for PSA. Will complete at [facility]. Return in about 4 weeks to review [...] Contact Information FLAKO ELLIOTT, THERESA [place], URL [address] [place] [address] [phone] Additional Instructions: f/u with MD in 1 [...] SARS-CoV-2 (COVID-19) Ad26 vaccine 09/02/2020 Recorded [facility] Comment on above: Result Comment: Elec tronically Signed By: THERESA ARRIOLA PA-C\.br\Date and Time Signed: 04/11/23 13:13 EDT\.br\Electronically Co-Signed By: Carissa Hammonds\.br\Date and Time Co-Signed: 04/11/23 12:33 EDT RAD - MRI Reporton RAD - MRI Report [id number] #1.00TIFF [facility] Creatinine (Bld) [Mass/Vol]O rdered By: Theresa Arriola on 04-03-2023 Creatinine [Mass/Vol] 1.4 mg/dL 0.6-1.3 [facility] Comment on above: ER/ESD physician is notified/shown all ISTAT results.Critical values may be confirmed by laboratory testing ifdeemed necessary by ER attending doctor. ISTAT XRay CREon 04-03-2023 Creatinine [Mass/Vol] 1.4 mg/dL High 0.6-1.3 [facility] Comment on above: Result Comment: ER/E SD physician is notified/shown all ISTAT results. Critical values may be confirmed by laboratory testing if deemed necessary by ER attending doctor. Performed By: #### I SCRE #### [address] ISTAT GFR 55.088 Normal [facility] Comment on above: Result Comment: PERF ORMED BY: [place] [address] PATHOLOGIST [employer] PROFESSOR JIANLAN SUN M.D. Performed By: #### I SCRE #### [place] [id number] [facility] MR prostate wo/w conon 04-03 MR prostate wo/w con [facility] Main [place] [address] [place] [address] MRI Report Signed Patient: Michael Killian MR#: [id number] : 1955 Acct:[id number] Age/Sex: 68 / M ADM Date: 04/03/23 Loc: MR Room: Type: [facility] Attending Dr: Theresa Arriola PA-C Copies to: [...] excluded. Impression dictated by: Leandro Cleary Jr., D.O.04/03/2023 1:40 PM Dictation Location: [facility] Transcribed By: [facility] 04/03/23 1340 Dictated By: Leandro Cleary Jr, DO 04/03/23 1334 Signed By: 04/03/23 1340 Normal [facility] Lab Reportson 01-19-2023 Lab Reports [id number] #1.00CD:127 [facility] [place] 12-21-2022 Screens [id number] #1.00CD:127 [facility] Ambulatory Visit Summaryon 0 12-20-2022 Ambulatory Visit Summary MICHAEL KILLIAN :1955 Visit Date:12/20/2022 Ambulatory Visit Instructions Your Diagnosis Elevated PSA BPH with urinary obstruction Tests Performed Urnls Dip Stick Auto w/o Microscopy POC 74256 MRI Pelvis (Soft Tissue) w/ + w/o [...] of Prostate. Where: [address] [place] [address] Medications What How Much When Why Instructions [...] Urnls Dip Stick Auto w/o Microscopy POC 00788 (12/20/2022) Bilirubin Urine Dipstick - Negative Blood Urine Dipstick - Negative Glucose Urine Dipstick - Negative Ketones Urine Dipstick - Negative Leukocytes Urine Dipstick - Negative Nitrite Urine Dipstick - Negative Protein Urine Dipstick - Negative Specific [place] Urine Dipstick - 1.010 Urine Appearance Urine [...] An enlar (more content not included)... [facility] Patient Educationon 12-21-19 Patient Education Oncology Prostate [...] Where to find more information ? The [place] Cancer [employer]: www.cancer.org ? [place] [employer] Association: www.auanet.org Contact a health care [...] adds flu (more content not included)... [facility] Urology Office/Clinic Noteon 12-20-2022 Urology Office/Clinic [...] Urnls Dip Stick Auto w/o Microscopy POC 54587 Follow-up With When Contact Information FLAKO ELLIOTT, THERESA [place], URL [address] [place] [address] Additional Instructions: Sched Select MDX and MRI of Prostate. Patient Education Prostate Cancer Screening Documentation recorded by the scribfuad Padilla accurately reflects the services(s) I performed and decisions made by me. Authenticated by Theresa Arriola PA-C on 12/20/2022 10:54:20. I, Nevaeh Padilla, personally scribed for Theersa Arriola PA-C on 12/20/2022 10:44:12. . Problem [...] concerns: No. (more content not included)... [facility] Comment on above: Result Comment: Elec tronically Signed By: THERESA ARRIOLA PA-C\.br\Date and Time Signed: 12/20/22 11:01 EDT PROF 14(COMP METB)on 023 Albumin [Mass/Vol] 3.9 g/dL Normal 3.4-5.0 [facility] Comment on above: Performed By: #### B MP #### [facility] [address] [place] [address] Dr. Duy Gallegos Albumin/Globulin [Mass ratio] 1.1 {ratio} Normal [facility] Comment on above: Performed By: #### B MP #### [facility] [address] [place] [address] Dr. Duy Gallegos ALP [Catalytic activity/Vol] 70 U/L Normal 46-116 [facility] Comment on above: Performed By: #### B MP #### [facility] [address] [place] [address] [address] Duy Gallegos ALT [Catalytic activity/Vol] 26 U/L Normal 16-63 [facility] Comment on above: Performed By: #### B MP #### [facility] [address] [place] [address] [address] Duy Gallegos Anion gap [Moles/Vol] 13.1 mmol/L Normal [facility] Comment on above: Performed By: #### B MP #### [facility] [address] [place] [address] Dr. Duy Gallegos AST [Catalytic activity/Vol] 17 U/L Normal 15-37 [facility] Comment on above: Performed By: #### B MP #### [facility] [address] [place] [address] [address] Duy Gallegos Bilirubin [Mass/Vol] 0.6 mg/dL Normal 0.2-1.0 [facility] Comment on above: Performed By: #### B MP #### [facility] [address] [place] [address] [address] Duy Gallegos Calcium [Mass/Vol] 9.0 mg/dL Normal 8.5-10.1 [facility] Comment on above: Performed By: #### B MP #### [facility] [address] [place] [address] [address] Duy Gallegos Chloride [Moles/Vol] 106 mmol/L Normal 98-107 [facility] Comment on above: Performed By: #### B MP #### [facility] [address] [place] [address] [address] Duy Gallegos CO2 [Moles/Vol] 28.5 mmol/L Normal 21.0-32.0 [facility] Comment on above: Performed By: #### B MP #### [facility] [address] [place] [address] [address] Duy Gallegos Creatinine [Mass/Vol] 1.22 mg/dL Normal 0.70-1.30 [facility] Comment on above: Performed By: #### B MP #### [facility] [address] [place] [address] [address] Duy Gallegos EGFR-AF BELIZEAN >60 Normal >=60 [facility] Comment on above: Performed By: #### B MP #### [facility] [address] [place] [address] [address] Duy Gallegos EGFR-NON AF BELIZEAN 59 mL/min/1.73m2 Critically low >=60 [facility] Comment on above: Performed By: #### B MP #### [facility] [address] [place] [address] [address] Duy Gallegos Globulin (S) [Mass/Vol] 3.7 g/dL Normal [facility] Comment on above: Performed By: #### B MP #### [facility] [address] [place] [address] [address] Duy Gallegos Glucose [Mass/Vol] 113 mg/dL Critically high 74-106 [facility] Comment on above: Performed By: #### B MP #### [facility] [address] [place] [address] [address] Duy Gallegos Potassium [Moles/Vol] 4.6 mmol/L Normal 3.5-5.1 [facility] Comment on above: Performed By: #### B MP #### [facility] [address] [place] [address] [address] Duy Gallegos Protein [Mass/Vol] 7.6 g/dL Normal 6.4-8.2 [facility] Comment on above: Performed By: #### B MP #### [facility] [address] [place] [address] [address] Duy Gallegos Sodium [Moles/Vol] 143 mmol/L Normal 136-145 [facility] Comment on above: Performed By: #### B MP #### [facility] [address] [place], [place] [address] Dr. Duy Gallegos Urea nitrogen [Mass/Vol] 12.0 mg/dL Normal 7.0-18.0 [facility] Comment on above: Performed By: #### B MP #### [facility] [address] [place], [place] [address] Dr. Duy Gallegos Urea nitrogen/Creatinine [Mass ratio] 9.8 mg/mg Normal [facility] Comment on above: Performed By: #### B MP #### [facility] [address] [place], [place] [address] Dr. Duy Gallegos XR CHEST 2 Von [...] LIDYA VALE Date: 2022-11-07 09:16 Normal [facility] CULTURE BLOODon 08-30-2022 Microscopic examination of blood, [...] F Trimethoprim/Sulfame thoxazole <=10 S F Normal [facility] Comment on above: Performed By: #### B MP #### [facility] [address] [place] [id number] Duy Gallegos HEPATITIS PANEL, ACUTEon HBsAg Screen Negative Normal Negative [facility] Comment on above: Performed By: #### C BC #### [facility] [address] [place] [address] Dr. Duy Gallegos HCV AB Non-Reactive Normal Non Reactive [facility] Comment on above: Performed By: #### C BC #### [facility] [address] [place] [address] Dr. Duy Gallegos Hep A Ab, IgM Negative Normal Negative [facility] Comment on above: Performed By: #### C BC #### [facility] [address] [place] [address] [address] Duy Gallegos Hep B Core Ab, IgM Negative Normal Negative [facility] Comment on above: Performed By: #### C BC #### [facility] [address] [place] [address] Dr. Duy Gallegos Interpretation: Comment Normal [facility] Comment on above: Result Comment: Not infected with HCV unless early or acute infection is suspected (which may be delayed in an immunocompromised individual), or other evidence exists to indicate HCV infection. Performed By: #### C BC #### [facility] [address] [place] [address] Dr. Duy Gallegos CBC W MANUAL DIFFon 08-29-19 23 ATYPICAL LYMPH # Normal [facility] Comment on above: Performed By: #### B MP #### [facility] [address] [place] [address] Dr. Duy Gallegos ATYPICAL LYMPH % Normal [facility] Comment on above: Performed By: #### B MP #### [facility] [address] [place] [address] Dr. Duy Gallegos BAND # 0.0 103/ul Normal 0.0-0.3 [facility] Comment on above: Performed By: #### B MP #### [facility] [address] [place] [address] Dr. Duy Gallegos BAND % 0 % Normal 0-5 [facility] Comment on above: Performed By: #### B MP #### [facility] [address] [place] [address] Dr. Duy Gallegos BASOM # 0.00 103/ul Normal 0.00-0.10 [facility] Comment on above: Performed By: #### B MP #### [facility] [address] [place] [address] Dr. Duy Gallegos BASOM % 0.0 % Critically low 0.2-2.0 [facility] Comment on above: Performed By: #### B MP #### [facility] [address] [place] [address] Dr. Duy Gallegos BLAST # Normal [facility] Comment on above: Performed By: #### B MP #### [facility] [address] [place] [address] Dr. Duy Galleogs BLAST % Normal [facility] Comment on above: Performed By: #### B MP #### [facility] [address] [place] [address] Dr. Duy Gallegos CORRECTED WBC Normal 4.0-11.0 [facility] Comment on above: Performed By: #### B MP #### [facility] [address] [place] [address] Dr. Duy Gallegos EOS # 0.00 103/ul Normal 0.00-0.70 [facility] Comment on above: Performed By: #### B MP #### [facility] [address] [place] [address] Dr. Duy Gallegos EOS% 0.0 % Critically low 0.9-7.0 [facility] Comment on above: Performed By: #### B MP #### [facility] [address] [place] [address] Dr. Duy Gallegos HCT 36.8 % Critically low 42.0-54.0 [facility] Comment on above: Performed By: #### B MP #### [facility] [address] [place] [address] Dr. Duy Gallegos HGB 12.0 g/dl Critically low 14.0-18.0 [facility] Comment on above: Performed By: #### B MP #### [facility] [address] [place] [address] Dr. Duy Gallegos LYMPHM # 0.47 103/ul Critically low 1.20-3.80 [facility] Comment on above: Performed By: #### B MP #### [facility] [address] [place] [address] Dr. Duy Gallegos LYMPHM% 6.0 % Critically low 20.5-60.0 [facility] Comment on above: Performed By: #### B MP #### [facility] [address] [place] [address] Dr. Duy Gallegos MCH 28.4 pg Normal 25.9-34.0 [facility] Comment on above: Performed By: #### B MP #### [facility] [address] [place] [address] Dr. Duy Gallegos MCHC 32.6 g/dl Normal 29.9-35.2 [facility] Comment on above: Performed By: #### B MP #### [facility] [address] [place] [address] Dr. Duy Gallegos MCV 87.0 fL Normal 80.0-94.0 [facility] Comment on above: Performed By: #### B MP #### [facility] [address] [place] [address] Dr. Duy Gallegos METAMYELOCYTE # Normal [facility] Comment on above: Performed By: #### B MP #### [facility] [address] [place] [address] Dr. Duy Gallegos METAMYELOCYTE % Normal [facility] Comment on above: Performed By: #### B MP #### [facility] [address] [place] [address] Dr. Duy Gallegos MONOM# 0.40 103/ul Normal 0.30-0.80 [facility] Comment on above: Performed By: #### B MP #### [facility] [address] [place] [address] Dr. Duy Gallegos MONOM% 5.0 % Normal 1.7-12.0 [facility] Comment on above: Performed By: #### B MP #### [facility] [address] [address] [address] Duy Gallegos MPV 10.2 fL Normal 9.5-13.5 [facility] Comment on above: Performed By: #### B MP #### [facility] [address] [place] [address] Dr. Duy Gallegos MYELOCYTE # Normal [facility] Comment on above: Performed By: #### B MP #### [facility] [address] [place] [address] Dr. Duy Gallegos MYELOCYTE % Normal [facility] Comment on above: Performed By: #### B MP #### [facility] [address] [place] [address] Dr. Duy Gallegos NRBC Normal [facility] Comment on above: Performed By: #### B MP #### [facility] [address] [place] [address] Dr. Duy Gallegos PLT 205 103/ul Normal 150-450 [facility] Comment on above: Performed By: #### B MP #### [facility] [address] [place] [address] Dr. Duy Gallegos RBC 4.23 106/ul Critically low 4.70-6.10 [facility] Comment on above: Performed By: #### B MP #### [facility] [address] [place] [address] Dr. Duy Gallegos RDW 13.3 % Normal 11.0-15.0 [facility] Comment on above: Performed By: #### B MP #### [facility] [address] [place] [address] Dr. Duy Gallegos SEG # 7.03 103/ul Critically high 1.40-6.50 [facility] Comment on above: Performed By: #### B MP #### [facility] [address] [place] [address] Dr. Duy Gallegos SEG % 89.0 % Critically high 43.0-75.0 [facility] Comment on above: Performed By: #### B MP #### [facility] [address] [place] [address] Dr. Duy Gallegos WBC 7.9 103/ul Normal 4.0-11.0 [facility] Comment on above: Performed By: #### B MP #### [facility] [address] [place] [address] Dr. Duy Gallegos PROF 14(COMP METB)on 023 Albumin [Mass/Vol] 3.4 g/dL Normal 3.4-5.0 [facility] Comment on above: Performed By: #### C BC #### [facility] [address] [place] [address] Dr. Duy Gallegos Albumin/Globulin [Mass ratio] 1.0 {ratio} Normal [facility] Comment on above: Performed By: #### C BC #### [facility] [address] [place] [address] Dr. Duy Gallegos ALP [Catalytic activity/Vol] 73 U/L Normal 46-116 [facility] Comment on above: Performed By: #### C BC #### [facility] [address] [place] [address] Dr. Duy Gallegos ALT [Catalytic activity/Vol] 66 U/L Critically high 16-63 [facility] Comment on above: Performed By: #### C BC #### [facility] [address] [place] [address] Dr. Duy Gallegos Anion gap [Moles/Vol] 10.6 mmol/L Normal [facility] Comment on above: Performed By: #### C BC #### [facility] [address] [place] [address] Dr. Duy Gallegos AST [Catalytic activity/Vol] 26 U/L Normal 15-37 [facility] Comment on above: Performed By: #### C BC #### [facility] [address] [place] [address] Dr. Duy Gallegos Bilirubin [Mass/Vol] 0.3 mg/dL Normal 0.2-1.0 [facility] Comment on above: Performed By: #### C BC #### [facility] [address] [place] [address] Dr. Duy Gallegos Calcium [Mass/Vol] 8.9 mg/dL Normal 8.5-10.1 [facility] Comment on above: Performed By: #### C BC #### [facility] [address] [place] [address] Dr. Duy Gallegos Chloride [Moles/Vol] 106 mmol/L Normal 98-107 [facility] Comment on above: Performed By: #### C BC #### [facility] [address] [place] [address] Dr. Duy Gallegos CO2 [Moles/Vol] 29.3 mmol/L Normal 21.0-32.0 [facility] Comment on above: Performed By: #### C BC #### [facility] [address] [place] [address] Dr. Duy Gallegos Creatinine [Mass/Vol] 1.12 mg/dL Normal 0.70-1.30 [facility] Comment on above: Performed By: #### C BC #### [facility] [address] [place] [address] Dr. Duy Gallegos EGFR-AF BELIZEAN >60 Normal >=60 [facility] Comment on above: Performed By: #### C BC #### [facility] [address] [place] [address] Dr. Duy Gallegos EGFR-NON AF BELIZEAN >60 Normal >=60 [facility] Comment on above: Performed By: #### C BC #### [facility] [address] [place] [address] Dr. Duy Gallegos Globulin (S) [Mass/Vol] 3.3 g/dL Normal [facility] Comment on above: Performed By: #### C BC #### [facility] [address] [place] [address] Dr. Duy Gallegos Glucose [Mass/Vol] 157 mg/dL Critically high 74-106 [facility] Comment on above: Performed By: #### C BC #### [facility] [address] [place] [address] Dr. Duy Gallegos Potassium [Moles/Vol] 4.9 mmol/L Normal 3.5-5.1 [facility] Comment on above: Performed By: #### C BC #### [facility] [address] [address] [address] Duy Gallegos Protein [Mass/Vol] 6.7 g/dL Normal 6.4-8.2 [facility] Comment on above: Performed By: #### C BC #### [facility] [address] [address] [address] Duy Gallegos Sodium [Moles/Vol] 141 mmol/L Normal 136-145 [facility] Comment on above: Performed By: #### C BC #### [facility] [address] [address] [address] Duy Gallegos Urea nitrogen [Mass/Vol] 22.0 mg/dL Critically high 7.0-18.0 [facility] Comment on above: Performed By: #### C BC #### [facility] [address] [place] [address] Dr. Duy Gallegos Urea nitrogen/Creatinine [Mass ratio] 19.6 mg/mg Normal [facility] Comment on above: Performed By: #### C BC #### [facility] [address] [place] [address] Dr. Duy Gallegos MAGNESIUMon 08-27-2022 Magnesium [Mass/Vol] 2.0 mg/dL Normal 1.8-2.4 [facility] Comment on above: Performed By: #### C MP, MG #### [facility] [address] [place] [address] Dr. Duy Gallegos PROF 14(COMP METB)on 023 Albumin [Mass/Vol] 3.6 g/dL Normal 3.4-5.0 [facility] Comment on above: Performed By: #### C MP, MG #### [facility] [address] [place] [address] Dr. Duy Gallegos Albumin/Globulin [Mass ratio] 0.9 {ratio} Normal [facility] Comment on above: Performed By: #### C MP, MG #### [facility] [address] [address] [address] Duy Gallegos ALP [Catalytic activity/Vol] 79 U/L Normal 46-116 [facility] Comment on above: Performed By: #### C MP, MG #### [facility] [address] [address] [address] Duy Gallegos ALT [Catalytic activity/Vol] 86 U/L Critically high 16-63 [facility] Comment on above: Performed By: #### C MP, MG #### [facility] [address] [address] [address] Duy Gallegos Anion gap [Moles/Vol] 14.3 mmol/L Normal [facility] Comment on above: Performed By: #### C MP, MG #### [facility] [address] [address] [address] Duy Gallegos AST [Catalytic activity/Vol] 38 U/L Critically high 15-37 [facility] Comment on above: Performed By: #### C MP, MG #### [facility] [address] [address] [address] Duy Gallegos Bilirubin [Mass/Vol] 0.4 mg/dL Normal 0.2-1.0 [facility] Comment on above: Performed By: #### C MP, MG #### [facility] [address] [address] [address] Duy Gallegos Calcium [Mass/Vol] 9.3 mg/dL Normal 8.5-10.1 [facility] Comment on above: Performed By: #### C MP, MG #### [facility] [address] [address] [address] Duy Gallegos Chloride [Moles/Vol] 106 mmol/L Normal 98-107 [facility] Comment on above: Performed By: #### C MP, MG #### [facility] [address] [address] [address] uDy Gallegos CO2 [Moles/Vol] 27.1 mmol/L Normal 21.0-32.0 [facility] Comment on above: Performed By: #### C MP, MG #### [facility] [address] [address] [address] Duy Gallegos Creatinine [Mass/Vol] 1.17 mg/dL Normal 0.70-1.30 [facility] Comment on above: Performed By: #### C MP, MG #### [facility] [address] [address] [address] Duy Gallegos EGFR-AF BELIZEAN >60 Normal >=60 [facility] Comment on above: Performed By: #### C MP, MG #### [facility] [address] [address] [address] Duy Gallegos EGFR-NON AF BELIZEAN >60 Normal >=60 [facility] Comment on above: Performed By: #### C MP, MG #### [facility] [address] [address] [address] Duy Gallegos Globulin (S) [Mass/Vol] 3.8 g/dL Normal [facility] Comment on above: Performed By: #### C MP, MG #### [facility] [address] [address] [address] Duy Gallegos Glucose [Mass/Vol] 163 mg/dL Critically high 74-106 [facility] Comment on above: Performed By: #### C MP, MG #### [facility] [address] [address] [address] Duy Gallegos Potassium [Moles/Vol] 5.4 mmol/L Critically high 3.5-5.1 [facility] Comment on above: Performed By: #### C MP, MG #### [facility] [address] [address] [address] Duy Gallegos Protein [Mass/Vol] 7.4 g/dL Normal 6.4-8.2 [facility] Comment on above: Performed By: #### C MP, MG #### [facility] [address] [address] [address] Duy Gallegos Sodium [Moles/Vol] 142 mmol/L Normal 136-145 [facility] Comment on above: Performed By: #### C MP, MG #### [facility] [address] [address] [address] Duy Gallegos Urea nitrogen [Mass/Vol] 16.0 mg/dL Normal 7.0-18.0 [facility] Comment on above: Performed By: #### C MP, MG #### [facility] [address] [place] [address] Dr. Duy Gallegos Urea nitrogen/Creatinine [Mass ratio] 13.7 mg/mg Normal [facility] Comment on above: Performed By: #### C MP, MG #### [facility] [address] [place] [address] Dr. Duy Gallegos PROF CHEM 8 (BAS METB)on Anion gap [Moles/Vol] 15.1 mmol/L Normal [facility] Comment on above: Performed By: #### B MP #### [facility] [address] [place] [address] Dr. Duy Gallegos Calcium [Mass/Vol] 9.0 mg/dL Normal 8.5-10.1 [facility] Comment on above: Performed By: #### B MP #### [facility] [address] [place] [address] Dr. Duy Gallegos Chloride [Moles/Vol] 105 mmol/L Normal 98-107 [facility] Comment on above: Performed By: #### B MP #### [facility] [address] [place] [address] Dr. Duy Gallegos CO2 [Moles/Vol] 27.0 mmol/L Normal 21.0-32.0 [facility] Comment on above: Performed By: #### B MP #### [facility] [address] [place] [address] Dr. Duy Gallegos Creatinine [Mass/Vol] 1.20 mg/dL Normal 0.70-1.30 [facility] Comment on above: Performed By: #### B MP #### [facility] [address] [place] [address] Dr. Duy Gallegos EGFR-AF BELIZEAN >60 Normal >=60 [facility] Comment on above: Performed By: #### B MP #### [facility] [address] [place] [address] Dr. Duy Gallegos EGFR-NON AF BELIZEAN >60 Normal >=60 [facility] Comment on above: Performed By: #### B MP #### [facility] [address] [address] [address] Duy Gallegos Glucose [Mass/Vol] 155 mg/dL Critically high 74-106 [facility] Comment on above: Performed By: #### B MP #### [facility] [address] [address] [address] Duy Gallegos Potassium [Moles/Vol] 5.1 mmol/L Normal 3.5-5.1 [facility] Comment on above: Performed By: #### B MP #### [facility] [address] [address] [address] Duy Gallegos Sodium [Moles/Vol] 142 mmol/L Normal 136-145 [facility] Comment on above: Performed By: #### B MP #### [facility] [address] [address] [address] Duy Gallegos Urea nitrogen [Mass/Vol] 19.0 mg/dL Critically high 7.0-18.0 [facility] Comment on above: Performed By: #### B MP #### [facility] [address] [address] [address] Duy Gallegos Urea nitrogen/Creatinine [Mass ratio] 15.8 mg/mg Normal [facility] Comment on above: Performed By: #### B MP #### [facility] [address] [address] [address] Duy Gallegos XR CHEST 2 Von [...] GRACIE DEAN Date: 2022-08-27 08:27 Normal [facility] BLOOD CULTURE ID PANELon A. baumannii Not detected Normal NOT DETECTED [facility] Comment on above: Performed By: #### C BC #### [facility] [address] [place] [address] Dr. Duy Gallegos Bacteriodes fragilis Not detected Normal NOT DETECTED [facility] Comment on above: Performed By: #### C BC #### [facility] [address] [place] [address] Dr. Duy Gallegos BCID CONTROLS PASSED Normal [facility] Comment on above: Performed By: #### C BC #### [facility] [address] [place] [address] Dr. Duy PEREIRADBTHD BLOOD CULTURE BOTTLE INFORMATION [facility] Comment on above: Performed By: #### C BC #### [facility] [address] [place] [address] Dr. Duy Gallegos BCIDHD1 ANTIMICROBIAL RESISTANCE GENES [facility] Comment on above: Performed By: #### C BC #### [facility] [address] [place] [address] Dr. Duy Gallegos BCIDHD2 SEE BELOW [facility] Comment on above: Result Comment: Note : Antimicrobial resitance can occur via multiple mechanisms. A Not Detected result for the [employer] antomicrobial resistance gene assays does not indicate antimicrobial susceptibility. Subculturing is required for species identification and susceptibility testing of isolates. Performed By: #### C BC #### [facility] [address] [place] [address] Dr. Duy Gallegos BCIDHD3 Positive [facility] Comment on above: Performed By: #### C BC #### [facility] [address] [place] [address] Dr. Duy PEREIRADHD4 Negative [facility] Comment on above: Performed By: #### C BC #### [facility] [address] [place] [address] Dr. Duy PEREIRADHD5 YEAST [facility] Comment on above: Performed By: #### C BC #### [facility] [address] [place] [address] Dr. Duy Gallegos Bottle Set: Set 1 [facility] Comment on above: Performed By: #### C BC #### [facility] [address] [place] [address] Dr. Duy Gallegos Bottle: Anaerobic Normal [facility] Comment on above: Performed By: #### C BC #### [facility] [address] [place] [address] Dr. Duy Gallegos C. neoformans/gattii Not detected Normal NOT DETECTED [facility] Comment on above: Performed By: #### C BC #### [facility] [address] [place] [address] Dr. Duy Gallegos Gaal albicans Not detected Normal NOT DETECTED [facility] Comment on above: Performed By: #### C BC #### [facility] [address] [place] [address] Dr. Duy Gallegos Gala auris Not detected Normal NOT DETECTED [facility] Comment on above: Performed By: #### C BC #### [facility] [address] [place] [address] Dr. Duy Gallegos Gala glabrata Not detected Normal NOT DETECTED [facility] Comment on above: Performed By: #### C BC #### [facility] [address] [place] [address] Dr. Duy Gallegos Gala Krusei Not detected Normal NOT DETECTED [facility] Comment on above: Performed By: #### C BC #### [facility] [address] [place] [address] Dr. Duy Gallegos Gala Parapsilosis Not detected Normal NOT DETECTED [facility] Comment on above: Performed By: #### C BC #### [facility] [address] [place] [address] Dr. Duy Gallegos Gala Tropicalis Not detected Normal NOT DETECTED [facility] Comment on above: Performed By: #### C BC #### [facility] [address] [place] [address] Dr. Duy Gallegos CTX-M Resistant Gene Not Applicable Normal NOT DETECTE D [facility] Comment on above: Performed By: #### C BC #### [facility] [address] [place] [address] Dr. Duy Gallegos E. Cloacae complex Not detected Normal NOT DETECTED [facility] Comment on above: Performed By: #### C BC #### [facility] [address] [place] [address] Dr. Duy Gallegos E. faecalis Not detected Normal NOT DETECTED [facility] Comment on above: Performed By: #### C BC #### [facility] [address] [place] [address] Dr. Duy Gallegos E. faecium Not detected Normal NOT DETECTED [facility] Comment on above: Performed By: #### C BC #### [facility] [address] [place] [address] Dr. Duy Gallegos Enterobacteriaceae Not detected Normal NOT DETECTED [facility] Comment on above: Performed By: #### C BC #### [facility] [address] [place] [address] Dr. Duy Gallegos Escherichia coli Not detected Normal NOT DETECTED [facility] Comment on above: Performed By: #### C BC #### [facility] [address] [place] [address] Dr. Duy Gallegos H. influenzae Not detected Normal NOT DETECTED [facility] Comment on above: Performed By: #### C BC #### [facility] [address] [place] [address] Dr. Duy Gallegos IMP Resistant Gene Not Applicable Normal NOT DETECTED [facility] Comment on above: Performed By: #### C BC #### [facility] [address] [place] [address] Dr. Duy Gallegos K. oxytoca Not detected Normal NOT DETECTED [facility] Comment on above: Performed By: #### C BC #### [facility] [address] [place] [address] Dr. Duy Gallegos K. pneumoniae Not detected Normal NOT DETECTED [facility] Comment on above: Performed By: #### C BC #### [facility] [address] [place] [address] Dr. Duy Gallegos Klebsiella aerogenes Not detected Normal NOT DETECTED [facility] Comment on above: Performed By: #### C BC #### [facility] [address] [place] [address] Dr. Duy Gallegos KPC Resistant Gene Not Applicable Normal NOT DETECTED [facility] Comment on above: Performed By: #### C BC #### [facility] [address] [place] [address] Dr. Duy Gallegos List. monocytogenes Not detected Normal NOT DETECTED [facility] Comment on above: Performed By: #### C BC #### [facility] [address] [place] [address] Dr. Duy Gallegos Mcr-1 Resistant Gene Not Applicable Normal NOT DETECTE D [facility] Comment on above: Performed By: #### C BC #### [facility] [address] [place] [address] Dr. Duy Gallegos mecA/C Not Applicable Normal NOT DETECTED [facility] Comment on above: Performed By: #### C BC #### [facility] [address] [place] [address] Dr. Duy Gallegos mecA/C MREJ Not Applicable Normal NOT DETECTED [facility] Comment on above: Performed By: #### C BC #### [facility] [address] [place] [address] Dr. Duy Gallegos N. meningitidis Not detected Normal NOT DETECTED [facility] Comment on above: Performed By: #### C BC #### [facility] [address] [place] [address] Dr. Duy Gallegos NDM Resistant Gene Not Applicable Normal NOT DETECTED [facility] Comment on above: Performed By: #### C BC #### [facility] [address] [place] [address] Dr. Duy Gallegos Oxa-48-like Not Applicable Normal NOT DETECTED [facility] Comment on above: Performed By: #### C BC #### [facility] [address] [place] [address] Dr. Duy Gallegos Proteus Not detected Normal NOT DETECTED [facility] Comment on above: Performed By: #### C BC #### [facility] [address] [place] [address] Dr. Duy Gallegos Pseud. aeruginosa Not detected Normal NOT DETECTED [facility] Comment on above: Performed By: #### C BC #### [facility] [address] [address] [address] Duy Gallegos S. maltophilia Not detected Normal NOT DETECTED [facility] Comment on above: Performed By: #### C BC #### [facility] [address] [address] [address] Duy Gallegos Salmonella Not detected Normal NOT DETECTED [facility] Comment on above: Performed By: #### C BC #### [facility] [address] [place] [address] Dr. Duy Gallegos Seratia marcescens Not detected Normal NOT DETECTED [facility] Comment on above: Performed By: #### C BC #### [facility] [address] [place] [address] Dr. Duy Gallegos Site: L a/c Normal [facility] Comment on above: Performed By: #### C BC #### [facility] [address] [place] [address] Dr. Duy Gallegos Staph. aureus Not detected Normal NOT DETECTED [facility] Comment on above: Performed By: #### C BC #### [facility] [address] [place] [address] Dr. Duy Gallegos Staph. epidermidis Not detected Normal NOT DETECTED [facility] Comment on above: Performed By: #### C BC #### [facility] [address] [place] [address] Dr. Duy Gallegos Staph. lugdunensis Not detected Normal NOT DETECTED [facility] Comment on above: Performed By: #### C BC #### [facility] [address] [place] [address] Dr. Duy Gallegos Staphylococcus Detected Critically abnormal NOT DETECTED [facility] Comment on above: Performed By: #### C BC #### [facility] [address] [place] [address] Dr. Duy Gallegos Strep. agalactiae Not detected Normal NOT DETECTED [facility] Comment on above: Performed By: #### C BC #### [facility] [address] [place] [address] Dr. Duy Gallegos Strep. pneumoniae Not detected Normal NOT DETECTED [facility] Comment on above: Performed By: #### C BC #### [facility] [address] [place] [address] Dr. Duy Gallegos Strep. pyogenes Not detected Normal NOT DETECTED [facility] Comment on above: Performed By: #### C BC #### [facility] [address] [place] [address] Dr. Duy Gallegos Streptococcus Not detected Normal NOT DETECTED [facility] Comment on above: Performed By: #### C BC #### [facility] [address] [place] [address] Dr. Duy Gallegos Cullen/B Resist. Gene Not Applicable Normal NOT DETECTED [facility] Comment on above: Performed By: #### C BC #### [facility] [address] [place] [address] Dr. Duy Gallegos VIM Resistant Gene Not Applicable Normal NOT DETECTED [facility] Comment on above: Performed By: #### C BC #### [facility] [address] [place] [address] Dr. Duy Gallegos [facility] 02 MODE NASAL CANNULA [facility] Comment on above: Performed By: #### C BC #### [facility] [address] [place] [address] Dr. Duy Gallegos ALLENS TEST Positive Normal [facility] Comment on above: Performed By: #### C BC #### [facility] [address] [place] [address] Dr. Duy Gallegos Base excess Calc (Bld) [Moles/Vol] -1.3000 mmol/L Normal -2.0-2.0 [facility] Comment on above: Performed By: #### C BC #### [facility] [address] [place] [address] Dr. Duy Gallegos BIPAP PRESSURE Normal [facility] Comment on above: Performed By: #### C BC #### [facility] [address] [place] [address] Dr. Duy Gallegos CPAP [facility] Comment on above: Performed By: #### C BC #### [facility] [address] [address] [address] Duy Gallegos FIO2 [facility] Comment on above: Performed By: #### C BC #### [facility] [address] [place] [address] Dr. Duy Gallegos HCO3 (Bld) [Moles/Vol] 24.5 mmol/L Normal 22.0-26.0 [facility] Comment on above: Performed By: #### C BC #### [facility] [address] [place] [address] Dr. Duy Gallegos LPM 2 Normal [facility] Comment on above: Performed By: #### C BC #### [facility] [address] [place] [address] Dr. Duy Gallegos MINUTE VOLUME Normal [facility] Comment on above: Performed By: #### C BC #### [facility] [address] [place] [address] Dr. Duy Gallegos Oxygen (Bld) [Partial pressure] 64.3 mm[Hg] Critically low 80.0-100.0 [facility] Comment on above: Performed By: #### C BC #### [facility] [address] [place] [address] Dr. Duy Gallegos Oxygen saturation in Blood 92.0 % Critically low 95.0-100.0 [facility] Comment on above: Performed By: #### C BC #### [facility] [address] [place] [address] Dr. Duy Gallegos PCO2 45.3 mmHg Critically high 35.0-45.0 [facility] Comment on above: Performed By: #### C BC #### [facility] [address] [place] [address] Dr. Duy Gallegos PEEP [facility] Comment on above: Performed By: #### C BC #### [facility] [address] [place] [address] Dr. Duy Gallegos pH (Bld) 7.341 [pH] Critically low 7.350-7.450 [facility] Comment on above: Performed By: #### C BC #### [facility] [address] [place] [address] Dr. Duy Gallegos [facility] Comment on above: Performed By: #### C BC #### [facility] [address] [place] [address] Dr. Duy Gallegos PS [facility] Comment on above: Performed By: #### C BC #### [facility] [address] [place] [address] Dr. Duy Gallegos PUNCTURE SITE LR [facility] Comment on above: Performed By: #### C BC #### [facility] [address] [place] [address] Dr. Duy Gallegos [facility] Comment on above: Performed By: #### C BC #### [facility] [address] [place] [address] Dr. Duy Gallegos VENT [facility] Comment on above: Performed By: #### C BC #### [facility] [address] [place] [address] [facility] Comment on above: Performed By: #### C BC #### [facility] [address] [place] [address] Dr. Duy Gallegos BNPon 08-26-2022 Natriuretic peptide B (Bld) [Mass/Vol] 2516.0 pg/mL Critically high <=900.0 [facility] Comment on above: Performed By: #### B MP #### [facility] [address] [place] [address] Dr. Duy Gallegos CBC AUTO DIFFon 08-26-2022 BASO # 0.1 103/ul Normal 0.0-0.1 [facility] Comment on above: Performed By: #### C BC #### [facility] [address] [place] [address] Dr. Duy Gallegos Basophils/100 WBC (Bld) 1.2 % Normal 0.2-2.0 [facility] Comment on above: Performed By: #### C BC #### [facility] [address] [place] [address] Dr. Duy Gallegos EO # 0.4 103/ul Normal 0.0-0.7 [facility] Comment on above: Performed By: #### C BC #### [facility] [address] [place] [address] Dr. Duy Gallegos Eosinophils/100 WBC (Bld) 4.6 % Normal 0.9-7.0 [facility] Comment on above: Performed By: #### C BC #### [facility] [address] [place] [address] Dr. Duy Gallegos Erythrocyte distribution width (RBC) [Ratio] 13.2 % Normal 11.0-15.0 [facility] Comment on above: Performed By: #### C BC #### [facility] [address] [place] [address] Dr. Duy Gallegos Hematocrit (Bld) [Volume fraction] 41.1 % Critically low 42.0-54.0 [facility] Comment on above: Performed By: #### C BC #### [facility] [address] [place] [address] Dr. Duy Gallegos Hemoglobin (Bld) [Mass/Vol] 13.8 g/dL Critically low 14.0-18.0 [facility] Comment on above: Performed By: #### C BC #### [facility] [address] [place] [address] Dr. Duy Gallegos IG # 0.03 10e3/ul Normal 0.00-0.03 [facility] Comment on above: Performed By: #### C BC #### [facility] [address] [place] [address] Dr. Duy Gallegos IG % 0.4 % Normal 0.0-0.5 [facility] Comment on above: Performed By: #### C BC #### [facility] [address] [place] [address] Dr. Duy Gallegos LYMPH # 2.9 103/ul Normal 1.2-3.8 [facility] Comment on above: Performed By: #### C BC #### [facility] [address] [place] [address] Dr. Duy Gallegos Lymphocytes/100 WBC (Bld) 35.3 % Normal 20.5-60.0 [facility] Comment on above: Performed By: #### C BC #### [facility] [address] [place] [address] Dr. Duy Gallegos MANUAL DIFF REQ NO Normal [facility] Comment on above: Performed By: #### C BC #### [facility] [address] [place] [address] Dr. Duy Gallegos MCH (RBC) [Entitic mass] 28.9 pg Normal 25.9-34.0 [facility] Comment on above: Performed By: #### C BC #### [facility] [address] [place] [address] Dr. Duy Gallegos MCHC (RBC) [Mass/Vol] 33.6 g/dL Normal 29.9-35.2 [facility] Comment on above: Performed By: #### C BC #### [facility] [address] [place] [address] Dr. Duy Gallegos MCV (RBC) [Entitic vol] 86.2 fL Normal 80.0-94.0 [facility] Comment on above: Performed By: #### C BC #### [facility] [address] [place] [address] Dr. Duy Gallegos MONO # 0.6 103/ul Normal 0.3-0.8 [facility] Comment on above: Performed By: #### C BC #### [facility] [address] [place] [address] Dr. Duy Gallegos Monocytes/100 WBC (Bld) 7.1 % Normal 1.7-12.0 [facility] Comment on above: Performed By: #### C BC #### [facility] [address] [place] [address] Dr. Duy Gallegos NEUT # 4.2 103/ul Normal 1.4-6.5 [facility] Comment on above: Performed By: #### C BC #### [facility] [address] [place] [address] Dr. Duy Gallegos Neutrophils/100 WBC (Bld) 51.4 % Normal 43.0-75.0 [facility] Comment on above: Performed By: #### C BC #### [facility] [address] [place] [address] Dr. Duy Gallegos Platelet mean volume (Bld) [Entitic vol] 10.1 fL Normal 9.5-13.5 [facility] Comment on above: Performed By: #### C BC #### [facility] [address] [place] [address] Dr. Duy Gallegos PLT 264 103/ul Normal 150-450 [facility] Comment on above: Performed By: #### C BC #### [facility] [address] [place] [address] Dr. Duy Gallegos RBC 4.77 106/ul Normal 4.70-6.10 [facility] Comment on above: Performed By: #### C BC #### [facility] [address] [place] [address] Dr. Duy Gallegos WBC 8.2 103/ul Normal 4.0-11.0 [facility] Comment on above: Performed By: #### C BC #### [facility] [address] [place] [address] Dr. Duy Gallegos CTA CHEST WO W [...] CODY WAY Date: 2022-08-26 20:19 Normal [facility] CULTURE BLOODon 08-26-2022 Microscopic examination of blood, culture Culture Observations: NO GROWTH AT 5 DAYS. Normal [facility] Comment on above: Performed By: #### B MP #### [facility] [address] [place], [place] [address] Dr. Duy Gallegos Covid-19 PCR ([facility])on SARS-CoV-2 (COVID-19) RNA RICKY+probe Ql (Unsp spec) Not detected Normal NOT DETECTED [facility] Comment on above: Result Comment: When diagnostic [...] for this test is supported by the [place] of Health and Human Service's declaration that [...] used). Performed By: #### C BC #### [facility] [address] [place], [place] [address] Dr. Duy Gallegos D-DIMERon 08-26-2022 D-DIMER 1.10 mg/L FEU Critically high <=0.59 [facility] Comment on above: Performed By: #### D DIM #### [facility] [address] [place], [place] [address] Dr. Duy Gallegos D-DIMER COMMENTS SEE BELOW Normal The [facility] Comment on above: Result Comment: Incr [...] hospitalization. Performed By: #### D DIM #### [facility] [address] [place] [address] Dr. Duy Gallegos INFL[facility]ZA [facility] Normal [facility] Comment on above: Result Comment: Nega tive for Flu A protein angiten. Infection due to Flu A cannot be ruled out. Flu A angiten in the sample may be below the detection limit of the test. Performed By: #### I NFLUAB #### [facility] [address] [place] [address] Dr. Duy Gallegos INFLUBNEGH SEE BELOW Normal [facility] Comment on above: Result Comment: Nega tive for Flu B protein antigen. Infection due to Flu B cannot be ruled out. Flu B antigen in the sample may be below the detection limit of the test. Performed By: #### I NFLUAB #### [facility] [address] [place] [address] Dr. Duy Gallegos INFLUENZA A AG Negative Normal NEGATIVE SEE COMMENT [facility] Comment on above: Performed By: #### I NFLUAB #### [facility] [address] [place] [address] Dr. Duy Gallegos INFLUENZA B AG Negative Normal NEGATIVE SEE COMMENT [facility] Comment on above: Performed By: #### I NFLUAB #### [facility] [address] [place] [address] Dr. Duy Gallegos LACTATE/LACTIC ACIDon 2022 Lactate [Moles/Vol] 1.8 mmol/L Normal 0.4-1.9 [facility] Comment on above: Performed By: #### L ACT #### [facility] [address] [place] [address] Dr. Duy Gallegos PROF 14(COMP METB)on 023 Albumin [Mass/Vol] 3.7 g/dL Normal 3.4-5.0 [facility] Comment on above: Performed By: #### B MAIL DELIVERER, CMP, HSTROPN #### [facility] [address] [place] [address] Dr. Duy Gallegos Albumin/Globulin [Mass ratio] 1.0 {ratio} Normal [facility] Comment on above: Performed By: #### B MAIL DELIVERER, CMP, HSTROPN #### [facility] [address] [place] [address] Dr. Duy Gallegos ALP [Catalytic activity/Vol] 84 U/L Normal 46-116 [facility] Comment on above: Performed By: #### B MAIL DELIVERER, CMP, HSTROPN #### [facility] [address] [place] [address] Dr. Duy Gallegos ALT [Catalytic activity/Vol] 103 U/L Critically high 16-63 [facility] Comment on above: Performed By: #### B MAIL DELIVERER, CMP, HSTROPN #### [facility] [address] [place] [address] Dr. Duy Gallegos Anion gap [Moles/Vol] 15.5 mmol/L Normal [facility] Comment on above: Performed By: #### B MAIL DELIVERER, CMP, HSTROPN #### [facility] [address] [place] [address] Dr. Duy Gallegos AST [Catalytic activity/Vol] 62 U/L Critically high 15-37 [facility] Comment on above: Performed By: #### B MAIL DELIVERER, CMP, HSTROPN #### [facility] [address] [place] [address] Dr. Duy Gallegos Bilirubin [Mass/Vol] 0.3 mg/dL Normal 0.2-1.0 [facility] Comment on above: Performed By: #### B MAIL DELIVERER, CMP, HSTROPN #### [facility] [address] [place] [address] Dr. Duy Gallegos Calcium [Mass/Vol] 8.8 mg/dL Normal 8.5-10.1 [facility] Comment on above: Performed By: #### B MAIL DELIVERER, CMP, HSTROPN #### [facility] [address] [address] [address] Duy Gallegos Chloride [Moles/Vol] 106 mmol/L Normal 98-107 [facility] Comment on above: Performed By: #### B MAIL DELIVERER, CMP, HSTROPN #### [facility] [address] [address] [address] Duy Gallegos CO2 [Moles/Vol] 25.9 mmol/L Normal 21.0-32.0 [facility] Comment on above: Performed By: #### B MAIL DELIVERER, CMP, HSTROPN #### [facility] [address] [place] [address] Dr. Duy Gallegos Creatinine [Mass/Vol] 1.32 mg/dL Critically high 0.70-1.30 [facility] Comment on above: Performed By: #### B MAIL DELIVERER, CMP, HSTROPN #### [facility] [address] [place] [address] Dr. Duy Gallegos EGFR-AF BELIZEAN >60 Normal >=60 [facility] Comment on above: Performed By: #### B MAIL DELIVERER, CMP, HSTROPN #### [facility] [address] [place] [address] Dr. Duy Gallegos EGFR-NON AF BELIZEAN 54 mL/min/1.73m2 Critically low >=60 [facility] Comment on above: Performed By: #### B MAIL DELIVERER, CMP, HSTROPN #### [facility] [address] [place] [address] Dr. Duy Gallegos Globulin (S) [Mass/Vol] 3.6 g/dL Normal [facility] Comment on above: Performed By: #### B MAIL DELIVERER, CMP, HSTROPN #### [facility] [address] [place] [address] Dr. Duy Gallegos Glucose [Mass/Vol] 146 mg/dL Critically high 74-106 [facility] Comment on above: Performed By: #### B MAIL DELIVERER, CMP, HSTROPN #### [facility] [address] [place] [address] Dr. Duy Gallegos Potassium [Moles/Vol] 4.4 mmol/L Normal 3.5-5.1 [facility] Comment on above: Performed By: #### B MAIL DELIVERER, CMP, HSTROPN #### [facility] [address] [place] [address] Dr. Duy Gallegos Protein [Mass/Vol] 7.3 g/dL Normal 6.4-8.2 [facility] Comment on above: Performed By: #### B MAIL DELIVERER, CMP, HSTROPN #### [facility] [address] [place] [address] Dr. Duy Gallegos Sodium [Moles/Vol] 143 mmol/L Normal 136-145 [facility] Comment on above: Performed By: #### B MAIL DELIVERER, CMP, HSTROPN #### [facility] [address] [place] [address] Dr. Duy Gallegos Urea nitrogen [Mass/Vol] 15.0 mg/dL Normal 7.0-18.0 [facility] Comment on above: Performed By: #### B MAIL DELIVERER, CMP, HSTROPN #### [facility] [address] [place] [address] Dr. Duy Gallegos Urea nitrogen/Creatinine [Mass ratio] 11.4 mg/mg Normal [facility] Comment on above: Performed By: #### B MAIL DELIVERER, CMP, HSTROPN #### [facility] [address] [place] [address] Dr. Duy Gallegos TROPONIN, HIGH SENSITIVITYon 08-26-2022 HSTROP 41.1 pg/mL Normal 4.0-76.1 [facility] Comment on above: Result Comment: CUT- OFF POINTS HAVE BEEN ESTABLISHED BASED ON THE FOURTH UNIVERSAL DEFINITIONS OF MYOCARDIAL INFARCTION. THE UPPER REFERENCE LIMIT (URL) OF TROPONIN, DEFINED THE 99TH PERCENTILE OF cTnI DISTRIBUTION IN A REFERENCE POPULATION, HAS BEEN CONFIRMED THE DECISION THRESHOLD FOR NC DIAGNOSIS. Performed By: #### B MP #### [facility] [address] [place] [address] Dr. Duy Gallegos CBC AUTO DIFFon 05-18-2022 BASO # 0.1 103/ul Normal 0.0-0.1 [facility] Comment on above: Performed By: #### C BC #### [facility] [address] [place] [address] Dr. Duy Gallegos Basophils/100 WBC (Bld) 1.5 % Normal 0.2-2.0 [facility] Comment on above: Performed By: #### C BC #### [facility] [address] [place] [address] Dr. Duy Gallegos EO # 0.3 103/ul Normal 0.0-0.7 [facility] Comment on above: Performed By: #### C BC #### [facility] [address] [place] [address] Dr. Duy Gallegos Eosinophils/100 WBC (Bld) 4.7 % Normal 0.9-7.0 [facility] Comment on above: Performed By: #### C BC #### [facility] [address] [place] [address] Dr. Duy Gallegos Erythrocyte distribution width (RBC) [Ratio] 12.8 % Normal 11.0-15.0 [facility] Comment on above: Performed By: #### C BC #### [facility] [address] [place] [address] Dr. Duy Gallegos Hematocrit (Bld) [Volume fraction] 39.1 % Critically low 42.0-54.0 [facility] Comment on above: Performed By: #### C BC #### [facility] [address] [place] [address] Dr. Duy Gallegos Hemoglobin (Bld) [Mass/Vol] 13.2 g/dL Critically low 14.0-18.0 [facility] Comment on above: Performed By: #### C BC #### [facility] [address] [place] [address] Dr. Duy Gallegos IG # 0.03 10e3/ul Normal 0.00-0.03 [facility] Comment on above: Performed By: #### C BC #### [facility] [address] [place] [address] Dr. Duy Gallegos IG % 0.5 % Normal 0.0-0.5 [facility] Comment on above: Performed By: #### C BC #### [facility] [address] [place] [address] Dr. Duy Gallegos LYMPH # 1.4 103/ul Normal 1.2-3.8 [facility] Comment on above: Performed By: #### C BC #### [facility] [address] [place] [address] Dr. Duy Gallegos Lymphocytes/100 WBC (Bld) 23.8 % Normal 20.5-60.0 [facility] Comment on above: Performed By: #### C BC #### [facility] [address] [place] [address] Dr. Duy Gallegos MANUAL DIFF REQ NO Normal [facility] Comment on above: Performed By: #### C BC #### [facility] [address] [place] [address] Dr. Duy Gallegos MCH (RBC) [Entitic mass] 28.8 pg Normal 25.9-34.0 [facility] Comment on above: Performed By: #### C BC #### [facility] [address] [place] [address] Dr. Duy Gallegos MCHC (RBC) [Mass/Vol] 33.8 g/dL Normal 29.9-35.2 [facility] Comment on above: Performed By: #### C BC #### [facility] [address] [place] [address] Dr. Duy Gallegos MCV (RBC) [Entitic vol] 85.2 fL Normal 80.0-94.0 [facility] Comment on above: Performed By: #### C BC #### [facility] [address] [place] [address] Dr. Duy Gallegos MONO # 0.5 103/ul Normal 0.3-0.8 [facility] Comment on above: Performed By: #### C BC #### [facility] [address] [place] [address] Dr. Duy Gallegos Monocytes/100 WBC (Bld) 7.8 % Normal 1.7-12.0 [facility] Comment on above: Performed By: #### C BC #### [facility] [address] [address] [address] Duy Gallegos NEUT # 3.7 103/ul Normal 1.4-6.5 [facility] Comment on above: Performed By: #### C BC #### [facility] [address] [address] [address] Duy Gallegos Neutrophils/100 WBC (Bld) 61.7 % Normal 43.0-75.0 [facility] Comment on above: Performed By: #### C BC #### [facility] [address] [address] [address] Duy Gallegos Platelet mean volume (Bld) [Entitic vol] 9.6 fL Normal 9.5-13.5 [facility] Comment on above: Performed By: #### C BC #### [facility] [address] [place] [address] Dr. Duy Gallegos PLT 199 103/ul Normal 150-450 [facility] Comment on above: Performed By: #### C BC #### [facility] [address] [address] [address] Duy Gallegos RBC 4.59 106/ul Critically low 4.70-6.10 [facility] Comment on above: Performed By: #### C BC #### [facility] [address] [address] [address] Duy Gallegos WBC 6.0 103/ul Normal 4.0-11.0 [facility] Comment on above: Performed By: #### C BC #### [facility] [address] [address] [address] Duy Gallegos METHYLMALONIC ACID (MMA)on 0 03-03-2022 Methylmalonic Acid, Serum 232 nmol/L Normal 0-378 [facility] Comment on above: Performed By: #### M MA2 #### [facility] [address] [address] [address] Duy Gallegos CBC AUTO DIFFon 02-25-2022 BASO # 0.1 103/ul Normal 0.0-0.1 [facility] Comment on above: Performed By: #### C BC #### [facility] [address] [address] [address] Duy Gallegos Basophils/100 WBC (Bld) 1.3 % Normal 0.2-2.0 [facility] Comment on above: Performed By: #### C BC #### [facility] [address] [address] [address] Duy Gallegos EO # 0.2 103/ul Normal 0.0-0.7 [facility] Comment on above: Performed By: #### C BC #### [facility] [address] [place] [address] Dr. Duy Gallegos Eosinophils/100 WBC (Bld) 4.8 % Normal 0.9-7.0 [facility] Comment on above: Performed By: #### C BC #### [facility] [address] [place] [address] Dr. Duy Gallegos Erythrocyte distribution width (RBC) [Ratio] 13.9 % Normal 11.0-15.0 [facility] Comment on above: Performed By: #### C BC #### [facility] [address] [place] [address] Dr. Duy Gallegos Hematocrit (Bld) [Volume fraction] 36.2 % Critically low 42.0-54.0 [facility] Comment on above: Performed By: #### C BC #### [facility] [address] [place] [address] Dr. Duy Gallegos Hemoglobin (Bld) [Mass/Vol] 12.2 g/dL Critically low 14.0-18.0 [facility] Comment on above: Performed By: #### C BC #### [facility] [address] [place] [address] Dr. Duy Gallegos IG # 0.01 10e3/ul Normal 0.00-0.03 [facility] Comment on above: Performed By: #### C BC #### [facility] [address] [place] [address] Dr. Duy Gallegos IG % 0.2 % Normal 0.0-0.5 [facility] Comment on above: Performed By: #### C BC #### [facility] [address] [place] [address] Dr. Duy Gallegos LYMPH # 1.3 103/ul Normal 1.2-3.8 [facility] Comment on above: Performed By: #### C BC #### [facility] [address] [place] [address] Dr. Duy Gallegos Lymphocytes/100 WBC (Bld) 29.3 % Normal 20.5-60.0 [facility] Comment on above: Performed By: #### C BC #### [facility] [address] [place] [address] Dr. Duy Gallegos MANUAL DIFF REQ NO Normal [facility] Comment on above: Performed By: #### C BC #### [facility] [address] [place] [address] Dr. Duy Gallegos MCH (RBC) [Entitic mass] 29.5 pg Normal 25.9-34.0 [facility] Comment on above: Performed By: #### C BC #### [facility] [address] [place] [address] Dr. Duy Gallegos MCHC (RBC) [Mass/Vol] 33.7 g/dL Normal 29.9-35.2 [facility] Comment on above: Performed By: #### C BC #### [facility] [address] [place] [address] Dr. Duy Gallegos MCV (RBC) [Entitic vol] 87.7 fL Normal 80.0-94.0 [facility] Comment on above: Performed By: #### C BC #### [facility] [address] [place] [address] Dr. Duy Gallegos MONO # 0.4 103/ul Normal 0.3-0.8 [facility] Comment on above: Performed By: #### C BC #### [facility] [address] [place] [address] Dr. Duy Gallegos Monocytes/100 WBC (Bld) 9.4 % Normal 1.7-12.0 [facility] Comment on above: Performed By: #### C BC #### [facility] [address] [place] [address] Dr. Duy Gallegos NEUT # 2.5 103/ul Normal 1.4-6.5 [facility] Comment on above: Performed By: #### C BC #### [facility] [address] [address] [address] Duy Gallegos Neutrophils/100 WBC (Bld) 55.0 % Normal 43.0-75.0 [facility] Comment on above: Performed By: #### C BC #### [facility] [address] [place] [address] Dr. Duy Gallegos Platelet mean volume (Bld) [Entitic vol] 9.4 fL Critically low 9.5-13.5 [facility] Comment on above: Performed By: #### C BC #### [facility] [address] [place] [address] Dr. Duy Gallegos PLT 142 103/ul Critically low 150-450 [facility] Comment on above: Performed By: #### C BC #### [facility] [address] [place] [address] Dr. Duy Gallegos RBC 4.13 106/ul Critically low 4.70-6.10 [facility] Comment on above: Performed By: #### C BC #### [facility] [address] [place] [address] Dr. Duy Gallegos WBC 4.6 103/ul Normal 4.0-11.0 [facility] Comment on above: Performed By: #### C BC #### [facility] [address] [place] [address] Dr. Duy Gallegos FERRITINon 02-25-2022 Ferritin [Mass/Vol] 274.0 ng/mL Normal 26.0-388.0 [facility] Comment on above: Performed By: #### C BC #### [facility] [address] [place] [address] Dr. Duy Gallegos IRON AND TIBCon 02-25-2022 % SATURATION 33.8 % Normal [facility] Comment on above: Performed By: #### C BC #### [facility] [address] [place], [place] [address] Dr. Duy Gallegos Iron [Mass/Vol] 97.0 ug/dL Normal 65.0-175.0 [facility] Comment on above: Performed By: #### C BC #### [facility] [address] [place], [place] [address] Dr. Duy Gallegos TIBC DIRECT 287.0 ug/dL Normal 250.0-450.0 [facility] Comment on above: Performed By: #### C BC #### [facility] [address] [address] [address] Duy Gallegos VIT B12 AND FOLATEon 022 Cobalamin (Vitamin B12) [Mass/Vol] 817.0 pg/mL Normal 193.0-986.0 [facility] Comment on above: Performed By: #### C BC #### [facility] [address] [address] [address] Duy Gallegos FOLATE 16.90 ng/mL Normal 8.60-58.90 [facility] Comment on above: Performed By: #### C BC #### [facility] [address] [address] [address] Duy Gallegos XR CHEST 2 Von [...] ALEXA MCKENZIE Date: 2021-12-28 13:59 Normal [facility] Quick Testingon 2021 Result Negative [facility] Other Quick Fluon 08-07-2021 FLUAV Ab CF (S) [Titer] Negative [facility] Other FLUBV Ab CF (S) [Titer] Negative [facility] Other COVID Quick Testingon 2020 Result Positive [facility] Other Vital Signs Date Time Vital Sign Value Performing Clinician Facility 06-16-2023 10:00-0500 Diastolic blood pressure 92 mm[Hg] Meghan Lue [facility] 06-16-2023 10:00-0500 Mean blood pressure 115 mm[Hg] Meghan Lue [facility] 06-16-2023 10:00-0500 Systolic blood pressure 162 mm[Hg] Meghan Lue [facility] 06-16-2023 09:44-0500 Blood Pressure Location Meghan Lue [facility] 06-16-2023 09:44-0500 Body temperature 97.16 [degF] Meghan Lue [facility] 06-16-2023 09:44-0500 Diastolic blood pressure 88 mm[Hg] Meghan Lue [facility] 06-16-2023 09:44-0500 Heart rate 78 /min Meghan Lue [facility] 06-16-2023 09:44-0500 Systolic blood pressure 144 mm[Hg] Meghan Lue [facility] 06-06-2023 17:10-0500 Diastolic blood pressure 70 mm[Hg] Meghan Lue [facility] 06-06-2023 17:10-0500 Heart rate 60 /min Meghan Lue [facility] 06-06-2023 17:10-0500 Respiratory rate 16 /min Meghan Lue [facility] 06-06-2023 17:10-0500 SaO2% (BldA) [Mass fraction] 100 % Meghan Lue [facility] 06-06-2023 17:10-0500 Systolic blood pressure 120 mm[Hg] Meghan Lue [facility] 06-06-2023 17:02-0500 Heart rate 62 /min Meghan Lue [facility] 06-06-2023 17:02-0500 SaO2% (BldA) [Mass fraction] 100 % Meghan Lue [facility] 06-06-2023 17:02-0500 Respiratory rate 16 /min Meghan Lue [facility] 06-06-2023 16:52-0500 Diastolic blood pressure 56 mm[Hg] Meghan Lue [facility] 06-06-2023 16:52-0500 Heart rate 60 /min Meghan Lue [facility] 06-06-2023 16:52-0500 SaO2% (BldA) [Mass fraction] 97 % Meghan Lue [facility] 06-06-2023 16:52-0500 Systolic blood pressure 89 mm[Hg] Meghan Lue [facility] 06-06-2023 16:29-0500 Diastolic blood pressure 89 mm[Hg] Meghan Lue [facility] 06-06-2023 16:29-0500 Systolic blood pressure 154 mm[Hg] Meghan Lue [facility] 06-06-2023 14:00-0500 Blood Pressure Location Meghan Lue [facility] 06-06-2023 14:00-0500 Mean blood pressure 84 mm[Hg] Meghan Lue [facility] 06-06-2023 14:00-0500 Respiratory rate 18 /min Meghan Lue [facility] 05-10-2023 10:54-0500 Blood Pressure Location Meghan Lue [facility] 05-10-2023 10:54-0500 Diastolic blood pressure 76 mm[Hg] Meghan Lue [facility] 05-10-2023 10:54-0500 Heart rate 68 /min Meghan Lue [facility] 05-10-2023 10:54-0500 Respiratory rate 16 /min Meghan Lue [facility] 05-10-2023 10:54-0500 Systolic blood pressure 132 mm[Hg] Meghan Lue [facility] 04-11-2023 11:40-0400 Blood Pressure Location THERESA FLAKO [facility] 04-11-2023 11:40-0400 Diastolic blood pressure 75 mm[Hg] THERESA FLAKO [facility] 04-11-2023 11:40-0400 Heart rate 68 /min THERESA FLAKO [facility] 04-11-2023 11:40-0400 Respiratory rate 16 /min THERESA FLAKO [facility] 04-11-2023 11:40-0400 Systolic blood pressure 134 mm[Hg] THERESA FLAKO [facility] 12-20-2022 10:11-0400 Blood Pressure Location THERESA FLAKO [facility] 12-20-2022 10:11-0400 Diastolic blood pressure 80 mm[Hg] THERESA FLAKO [facility] 12-20-2022 10:11-0400 Heart rate 70 /min THERESA FLAKO [facility] 12-20-2022 10:11-0400 Respiratory rate 16 /min THERESA FLAKO [facility] 12-20-2022 10:11-0400 Systolic blood pressure 140 mm[Hg] THERESA FLAKO [facility] 11-23-2022 08:30-0400 Body height 177.8 cm Gio Ball Other [facility] [employer] Other 11-23-2022 08:30-0400 Body mass index (BMI) [Ratio] 32.42 kg/m2 Gio Ball Other [facility] [employer] Other 11-23-2022 08:30-0400 Body weight 102.51 kg Gio Ball Other [facility] [employer] Other 11-23-2022 08:30-0400 Diastolic blood pressure 69 mm[Hg] Gio Ball Other [facility] [employer] Other 11-23-2022 08:30-0400 Respiratory rate 12 /min Gio Ball Other [facility] Other 11-23-2022 08:30-0400 Systolic blood pressure 162 mm[Hg] Gio Ball Other [facility] Other 08-31-2022 10:00-0500 Body height 177.8 cm Gio Ball Other [facility] Other 08-31-2022 10:00-0500 Body mass index (BMI) [Ratio] 33.43 kg/m2 Gio Ball Other [facility] Other 08-31-2022 10:00-0500 Body weight 105.69 kg Gio Ball Other [facility] Other 08-31-2022 10:00-0500 Diastolic blood pressure 80 mm[Hg] Gio Ball Other [facility] Other 08-31-2022 10:00-0500 Respiratory rate 16 /min Gio Ball Other [facility] Other 08-31-2022 10:00-0500 SaO2% (BldA) [Mass fraction] 98 % Gio Ball Other [facility] Other 08-31-2022 10:00-0500 Systolic blood pressure 132 mm[Hg] Gio Ball Other [facility] Other 10-26-2021 09:11-0400 Blood Pressure Location Daniel Kern Jr. [facility] 10-26-2021 09:11-0400 Diastolic blood pressure 77 mm[Hg] Daniel Kern Jr. [facility] 10-26-2021 09:11-0400 Heart rate 78 /min Daniel Kern Jr. [facility] 10-26-2021 09:11-0400 Respiratory rate 16 /min Daniel Erlin Alonso [facility] 10-26-2021 09:11-0400 Systolic blood pressure 181 mm[Hg] Daniel Erlin Alonso [facility] 08-07-2021 11:00-0500 Body height 177.8 cm Gina Starks Other [facility] Other 08-07-2021 11:00-0500 Body mass index (BMI) [Ratio] 30.13 kg/m2 Gina Starks Other [facility] Other 08-07-2021 11:00-0500 Body temperature 101 [degF] Gina Starks Other [facility] Other 08-07-2021 11:00-0500 Body weight 95.26 kg Gina Starks Other [facility] Other 08-07-2021 11:00-0500 Respiratory rate 18 /min Gina Starks Other [facility] Other 08-07-2021 11:00-0500 SaO2% (BldA) [Mass fraction] 97 % Gina Starks Other [facility] Other 05-24-2021 18:15-0500 Body height 177.8 cm Sybil Lee Other [facility] Other 05-24-2021 18:15-0500 Body mass index (BMI) [Ratio] 30.85 kg/m2 Sybil Lee Other [facility] Other 05-24-2021 18:15-0500 Body temperature 96.9 [degF] Sybil Lee Other [facility] Other 05-24-2021 18:15-0500 Body weight 97.52 kg Sybil Lee Other [facility] Other 05-24-2021 18:15-0500 SaO2% (BldA) [Mass fraction] 91 % Sybil Lee Other [facility] Other Encounters Encounter Date Encounter Type Care Provider Facility Start: 11-29-2023 ambulatory Meghan M. Lue Facility:[facility] Start: 07-31-2023 End: 08-01-2023 ambulatory Meghan M. Lue Facility:[facility] Start: 07-31-2023 End: 07-31-2023 Patient encounter procedure Meghan M. Lue [facility] Start: 06-30-2023 End: 07-01-2023 ambulatory Meghan M. Lue Facility:[facility] Start: 06-30-2023 End: 06-30-2023 Lab Drop off Meghan M. Lue [facility] Start: 06-30-2023 End: 07-01-2023 ambulatory Meghan M. Lue Facility:[facility] Start: 06-30-2023 End: 06-30-2023 Patient encounter procedure Meghan M. Lue [facility] Start: 06-22-2023 End: 06-22-2023 ambulatory Gio Jasso Other [facility] Other Start: 06-22-2023 Telephone encounter Gio Jasso [facility] Start: 06-21-2023 Telephone encounter Gio BRITTON [facility] Start: 06-21-2023 End: 06-22-2023 ambulatory Meghan M. Lue [facility] Other Start: 06-21-2023 End: 06-21-2023 Patient encounter procedure Meghan M. Lue [facility] Start: 06-20-2023 End: 06-20-2023 ambulatory Gio Jasso Other [facility] Other Start: 06-20-2023 Telephone encounter Gio BRITTON [facility] Start: 06-18-2023 End: 06-18-2023 ambulatory Gio Jasso Other [facility] Other Start: 06-18-2023 Telephone encounter Gio BRTITON [facility] Start: 06-16-2023 End: 06-17-2023 ambulatory Meghan M. Lue Facility:[facility] Start: 06-16-2023 End: 06-16-2023 Patient encounter procedure Meghan M. Lue [facility] Start: 06-15-2023 End: 06-16-2023 ambulatory Meghan M. Lue Facility:[facility] Start: 06-15-2023 End: 06-15-2023 Patient encounter procedure Meghan M. Lue [facility] Start: 06-14-2023 End: 06-15-2023 ambulatory Meghan Amandeep. Lue Facility:[facility] Start: 06-14-2023 End: 06-14-2023 Patient encounter procedure Meghan Bernstein. Daryl [facility] Start: 06-06-2023 End: 06-07-2023 ambulatory DUY GALLEGOS MD Facility:[id number] Start: 06-06-2023 End: 06-06-2023 ambulatory Meghan Bernstein. Charismae Facility:[facility] Start: 06-06-2023 End: 06-06-2023 Admission to same day surgery center Meghan Brito [facility] Start: 06-05-2023 End: 06-05-2023 ambulatory Gio Jasso Other [facility] Other Start: 06-05-2023 Telephone encounter Gio Jasso [facility] Start: 05-10-2023 End: 05-11-2023 ambulatory Meghan M. Lue Facility:[facility] Start: 05-10-2023 End: 05-10-2023 Patient encounter procedure Meghan Brito [facility] Start: 04-28-2023 ambulatory Meghan M. Lue Facility:[facility] Start: 04-27-2023 End: 04-27-2023 ambulatory Gio Jasso Other [facility] Other Start: 04-27-2023 Telephone encounter Gio BRITTON [facility] Start: 04-11-2023 End: 04-12-2023 ambulatory THERESA ARRIOLA Facility:[facility] Start: 04-11-2023 End: 04-11-2023 Patient encounter procedure THERESA ARRIOLA [facility] Start: 04-04-2023 End: 04-04-2023 ambulatory Gio Jasso Other [facility] Other Start: 04-04-2023 Telephone encounter Gio Jasso REBA [facility] Start: 04-03-2023 End: 04-03-2023 ambulatory Theresa Arriola Facility:[facility] Start: 04-03-2023 End: 04-03-2023 ambulatory DO Gio Jasso Work Phone: [facility] Work Phone: Start: 04-03-2023 End: 04-03-2023 Patient encounter procedure DO Gio Jasso Work Phone: [facility] [place] Work Phone: Start: 12-20-2022 End: 12-21-2022 ambulatory THERESA ARRIOLA Facility:[facility] Start: 12-20-2022 End: 12-20-2022 Patient encounter procedure [facility]ESA ARRIOLA [facility] Start: 12-13-2022 End: 12-13-2022 ambulatory Gio Jasso Other [facility] Other Start: 12-13-2022 Telephone encounter Gio Jasso [facility] Start: 12-12-2022 End: 12-12-2022 ambulatory Gio Jasso Other [facility] Other Start: 12-12-2022 Telephone encounter Gio Jasso FP [facility] Start: 11-23-2022 End: 11-23-2022 ambulatory Gio Jasso Other [facility] Other Start: 11-23-2022 Encounter for genera l adult medical examination without abnormal findings Gio Jasso [facility] Start: 11-23-2022 Periodic preventive med est patient 65yrs& older Gio Jasso [facility] Start: 11-07-2022 End: 11-08-[address] GIO JASSO Facility:[facility] Start: 08-31-2022 End: 08-31-2022 ambulatory Gio Jasso Other [facility] Other Start: 08-31-2022 Office outpatient vi sit 25 minutes Gio Jasso [facility] Start: 08-26-2022 End: 08-28-2022 Evaluation and management of inpatient DR DARIUS GIANG . Facility:[facility] Start: 05-18-2022 End: 05-19-[address] GIO JASSO Facility:[facility] Start: 02-25-2022 End: 02-26-[address] GIO JASSO Facility:[facility] Start: 01-07-[address] GIO JASSO Facili ty:[facility] Start: 12-28-2021 End: 12-29-[address] GIO JASSO Facility:[facility] Start: 11-18-2021 Adult health examination Gio Jasso Other [facility] Other Start: 10-26-2021 End: 10-26-2021 Patient encounter procedure Daniel Kern Jr. [facility] Start: 08-07-2021 End: 08-07-2021 ambulatory Gina Starks Other [facility] Other Start: 08-07-2021 Office outpatient vi sit 15 minutes Gina Starks [facility] Start: 05-24-2021 End: 05-24-2021 ambulatory Sybil Lee Other [facility] Other Start: 05-24-2021 Office outpatient vi sit 15 minutes Sybil Lee [facility] Procedures Date Procedure Procedure [...] of Treatment Date Care Activity Detail Author [facility] Immunizations Immunization Date Immunization Notes Care Provider Renetta celestin 05-25-2023 influenza, high dose seasonal, preservative-free Gio Jasso Other [facility] Other 05-25-2023 pneumococcal polysaccharide vaccine, 23 valent Gio Jasso Other [facility] Other 02-24-2022 influenza virus vaccine, unspecified formulation THERESABESSY MADRIDRY [facility] 02-24-2022 influenza, high dose seasonal, preservative-free Gio Jasso Other [facility] Other 11-18-2021 pneumococcal conjuga te vaccine, 13 valent Gio Jasso Other [facility] Other 09-01-2021 COVID-19 Vaccine Moderna - Documentation Purposes Only Gio Jasso Other [facility] 06-26-2021 pneumococcal conjuga te vaccine, 13 valent Gio Jasso Other [facility] 09-02-2020 SARS-CoV-2 (COVID-19 ) Ad26 vaccine, recombinant Daniel Kern Jr. [facility] 05-03-2019 influenza virus vaccine, split virus (incl. purified surface antigen) Gio Jasso Other [facility] Other 05-09-2018 influenza virus vaccine, split virus (incl. purified surface antigen) Gio Jasso Other [facility] Other Payers Date Payer Category Payer Medicare [id number] 2023 Unknown [id number] 2023 Medicare [id number] 1959 Self-pay 1959 Unknown [id number] 2.16. [id number] 1956 Unknown [id number] 2.16.84 0.1.094811.3.579.2.593 1956 Unknown [id number] 2.16.84 0.1.632190.3.579.2.593 1956 Unknown [id number] 2.16.84 0.1.688076.3.579.2.593 1956 Unknown [id number] 2.16.84 0.1.114808.3.579.2.593 1956 Unknown [id number] 2.16.84 0.1.340451.3.579.2.593 1956 Unknown [id number] 2.16.84 0.1.258518.3.579.2.593 1956 Unknown [id number] 2.16.8 40.1.374451.3.579.2.159 1956 Unknown [id number] 2.16.8 40.1.701350.3.579.2.727 1956 Unknown [id number] 2.16.8 40.1.075061.3.579.2.727 1956 Unknown [id number] 2.16.8 40.1.673714.3.579.2.727 1956 Unknown [id number] 2.16.8 40.1.969942.3.579.2.727 1956 Unknown [id number] 2.16.8 40.1.147938.3.579.2.727 1956 Unknown [id number] 2.16.8 40.1.712969.3.579.2.727 1956 Unknown [id number] 2.16.8 40.1.815838.3.579.2.727 1956 Unknown [id number] 2.16.8 40.1.833987.3.579.2.727 1956 Unknown [id number] 2.16.8 40.1.889845.3.579.2.727 1956 Unknown [id number] 2.16.8 40.1.406341.3.579.2.727 1956 Unknown [id number] 2.16.8 40.1.616407.3.579.2.727 1956 Unknown [id number] 2.16.8 40.1.970369.3.579.2.727 1956 Unknown [id number] 2.16.8 40.1.051522.3.579.2.727 Medicare Private Health Insurance Unknown [id number] 2.16.8 40.1.033798.3.579.2.531 Social History Date Type Detail Facility Start: 10-26-2021 Tobacco smoking status Heavy t obacco smoker (finding) [facility] Other Sex Assigned At Male [facility] [employer] Other Start: 12-20-2022 End: 05-10-2023 Tobacco smoking status Ex-smoker (finding) [facility] Start: 06-16-2023 Tobacco smoking status Never [facility] Start: 12-16-2020 Tobacco smoking stat [facility] Smoker (finding) [facility] Start: 1955 Sex Assigned At Male [facility] [facility] Functional Status Date Assessment Result Facility 07-31-2023 Functional Status N/A [facility] 06-16-2023 Functional Status N/A [facility] 05-16-2023 Functional Status N/A [facility] 05-10-2023 Functional Status N/A [facility] 04-11-2023 Functional Status N/A [facility] 12-20-2022 Functional Status N/A [facility] Clinical Notes 05-24-2021 to 07-31-2023 Note Date & Type Note Facility 07-31-2023 Evaluation + Plan note Extrac rina from: Title: - Clinic HOP Note Author:Daryl HAMILTON, Meghan Tucker Date:07/31/23 Impression and Plan Assessment and Plan: Diagnosis: BPH with urinary obstruction (RCZ25-UL N40.1, Discharge, Medical), Pelvic lymphadenopathy (HDB52-JE R59.0, Working, Medical), Chronic prostatitis (UZG30-PQ N41.1, Discharge, Medical), Feeling of incomplete bladder emptying (PER80-KH R39.14, Discharge, Medical), Gross hematuria (ICD10- CM R31.0, Discharge, Medical). Assessment and Plan: Diagnosis: BPH with urinary obstruction (HTF67-HG N40.1, Discharge, Medical), Chronic prostatitis (FLB98-EE N41.1, Discharge, Medical), Feeling of incomplete bladder emptying (ZOL25-YO R39.14, Discharge, Medical), Gross hematuria (LNN29-PX R31.0, Discharge, Medical), Pelvic lymphadenopathy (RSO64-QD R59.0, Working, Medical). 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 Gross hematuria - after [facility] CTU 07/05/23 at [facility] - neg for upper tract filling defects or hydronephrosis. Known nonspecific bilateral pelvic lymph nodes ( R pelvic sidewall 1x1.7 cm, L ext iliac 1.2x1.6 cm) Overall stable to minimally enlarged. Multiple neg prostate biopsies and MRIs. No bladder cancer on cystoscopy today. Urine cytology essentially negative (rare atypia consistent with degeneration) Cystoscopy today without signs of malignancy. -Continue symptomatic monitoring 2. BPH with urinary obstruction (N40.1: Benign prostatic hyperplasia with lower urinary tract symptoms) Pt states that he had tried Tamsulosin in the past, did not help as much. Taking Alfuzosin 10mg ER qd. Has had some sx improvement. Does not feel he always empties. Urocuff 06/30/23: PVR 208 cc (prior 91cc), obstructed on nomogram. Smaller functional bladder capacity, abdominal straining at the end of stream. Qmax 5.5, Pdet 120 cm H2O Severe trilobar hypertrophy on cystoscopy, large intravesical median lobe Again discussed alternative medications including finasteride to help treat the prostate size, which he declines based on side effects. Discussed risks and benefits of management options including TURP (possibly staged due to large size) versus robotic simple prostatectomy. Patient wants to research and think about his options and call if he does elect to proceed with a surgery. He understands this may be done by a partner/ referred based on timing. Otherwise he will follow-up in 4 to 5 months to see how he was doing. -Timed voids, behavioral modifications -Cont Alfuzosin -patient to call with surgical decision, Otherwise he will follow-up in 4 to 5 months with [facility] Rocky Leonard [facility]02-05-2024 Note [id number] [facility] 07-31-2023 NoteCystoscopy ? Voiding after the procedure: there may be some pain, burning, urgency, frequency and blood tingedurine following the procedure. These symptoms usually resolve within 2-5 days. Drink the amount of fluid it takes to keep the urine pink to yellow or clear in color. Drinking enough water and fluids will help to ease any discomfort after your procedure. ? If you are having problems that seem out of the ordinary, please call. ? If unable to contact your physician and you feel it is an emergency, go to the nearest emergency room or call 911 ? Diet ? you may resume your normal diet. ? Activity ? you may resume your normal activities ? Call if you have a fever over 100 degrees. Urology Robot-Assisted Laparoscopic Radical Prostatectomy (You would undergo Simple Prostatectomy, the below is for cancer) Robot-assisted laparoscopic radical prostatectomy is surgery done to remove the entire prostate andnearby tissue. This includes the seminal vesicles, which are near the bladder and the prostate. This procedure is done to treat prostate cancer that has not spread (metastasized) to other parts of the body. The goal of the surgery is to remove all cancer cells to help keep the cancer from metastasizing. During this procedure, the surgeon makes several incisions in the abdomen instead of one large incision. A long, thin, lighted tube with a tiny camera on the end (laparoscope) is put into one of the incisions. This allows the surgeon to see inside the abdomen. Other surgical tools are put in through the other incisions and used to take out the prostate and nearby tissues. The surgeon uses roboticarms to control these tools while sitting at a computer near the operating table. Lymph nodes in the pelvis may also be removed. Lymph nodes are part of the body's disease-fighting system (immune system). When prostate cancer spreads, it tends to go to the lymph nodes in the pelvis first. If the pelvic lymph nodes are removed, they will be checked for cancer cells. Tell a health care provider about: ? Any allergies you have. ? All medicines you are taking, including vitamins, herbs, eye drops, creams, and jfic-mgv-wwyerud medicines. ? Any problems you or family members have had with anesthetic medicines. ? Any bleeding problems you have. ? Any surgeries you have had. ? Any medical conditions you have. ? Any prostate infections you have had. What are the risks? Generally, this is a safe procedure. Still, problems may occur, including: ? Infection. ? Bleeding. ? Allergic reactions to medicines. ? Damage to nearby structures or organs, such as the rectum, ureters, urethra, bladder, or small intestine. ? Blockage (obstruction) of the large or small intestines. ? Problems that affect urination or sexual function. These may include: ? Narrowing or scarring of the urethra (stricture), which may block the flow of urine. ? Inability to control when you urinate (incontinence). ? Inability to get or keep an erection (erectile dysfunction). ? Dry ejaculation. This is when no semen comes out during orgasm. ? The formation of a sac (cyst) in the pelvis that is filled with fluid from the lymph glands (lymphocele). ? Blood clots in the legs. What happens before the procedure? Staying hydrated Follow instructions from your health care provider about hydration, which may include: ? Up to 2 hours before the procedure ? you may continue to drink clear liquids, such as water, clear fruit juice, black coffee, and plain tea. Eating and drinking restrictions Follow instructions from your health care provider about eating and drinking, which may include: ? 8 hours before the procedure ? stop eating heavy meals or foods, such as meat, fried foods, or fatty foods. ? 6 hours before the procedure ? stop eating light meals or foods, such as toast or cereal. ? 6 hours before the procedure ? stop drinking milk or drinks that contain milk. ? 2 hours before the procedure ? stop drinking clear liquids. Medicines ? Ask your health care provider about: ? Changing or stopping your regular medicines. This is especially important if you are taking diabetes medicines or blood thinners. ? Taking medicines such as aspirin and ibuprofen. These medicines can thin your blood. Do not take these medicines unless your health care provider tells you to take them. ? Taking pglt-abk-cxelthm medicines, vitamins, herbs, and supplements. ? Follow your health care provider's instructions about cleaning out your bowels. Surgery safety Ask your health care provider: ? How your surgery site will be marked. ? What steps will be taken to help prevent infection. These steps may include: ? Removing hair at the surgery site. ? Washing skin with a germ-killing soap. ? Taking antibiotic medicine. General instructions ? Do not use any products that contain nicotine or tobacco for at least 4 week (more content not included)...[facility]02-05-2024 Hospital Discharge instructions Patient Education 07/31/2023 09:05:54 Robot-Assisted Laparoscopic Radical Prostatectomy Robot-Assisted Laparoscopic Radical Prostatectomy (You would undergo Simple Prostatectomy, the below is for cancer) Robot-assisted laparoscopic radical prostatectomy is surgery done to remove the entire prostate andnearby tissue. This includes the seminal vesicles, which are near the bladder and the prostate. This procedure is done to treat prostate cancer that has not spread (metastasized) to other parts of the body. The goal of the surgery is to remove all cancer cells to help keep the cancer from metastasizing. During this procedure, the surgeon makes several incisions in the abdomen instead of one large incision. A long, thin, lighted tube with a tiny camera on the end (laparoscope) is put into one of the incisions. This allows the surgeon to see inside the abdomen. Other surgical tools are put in through the other incisions and used to take out the prostate and nearby tissues. The surgeon uses roboticarms to control these tools while sitting at a computer near the operating table. Lymph nodes in the pelvis may also be removed. Lymph nodes are part of the body's disease-fighting system (immune system). When prostate cancer spreads, it tends to go to the lymph nodes in the pelvis first. If the pelvic lymph nodes are removed, they will be checked for cancer cells. Tell a health care provider about: Any allergies you have. All medicines you are taking, including vitamins, herbs, eye drops, creams, and ztzt-jux-ippropv medicines. Any problems you or family members have had with anesthetic medicines. Any bleeding problems you have. Any surgeries you have had. Any medical conditions you have. Any prostate infections you have had. What are the risks? Generally, this is a safe procedure. Still, problems may occur, including: Infection. Bleeding. Allergic reactions to medicines. Damage to nearby structures or organs, such as the rectum, ureters, urethra, bladder, or small intestine. Blockage (obstruction) of the large or small intestines. Problems that affect urination or sexual function. These may include: ?Narrowing or scarring of the urethra (stricture), which may block the flow of urine. ?Inability to control when you urinate (incontinence). ?Inability to get or keep an erection (erectile dysfunction). ?Dry ejaculation. This is when no semen comes out during orgasm. The formation of a sac (cyst) in the pelvis that is filled with fluid from the lymph glands (lymphocele). Blood clots in the legs. What happens before the procedure? Staying hydrated Follow instructions from your health care provider about hydration, which may include: Up to 2 hours before the procedure you may continue to drink clear liquids, such as water, clear fruit juice, black coffee, and plain tea. Eating and drinking restrictions Follow instructions from your health care provider about eating and drinking, which may include: 8 hours before the procedure stop eating heavy meals or foods, such as meat, fried foods, or fatty foods. 6 hours before the procedure stop eating light meals or foods, such as toast or cereal. 6 hours before the procedure stop drinking milk or drinks that contain milk. 2 hours before the procedure stop drinking clear liquids. Medicines Ask your health care provider about: ?Changing or stopping your regular medicines. This is especially important if you are taking diabetes medicines or blood thinners. ?Taking medicines such as aspirin and ibuprofen. These medicines can thin your blood. Do not take these medicines unless your health care provider tells you to take them. ?Taking rbyo-lgp-afnqtag medicines, vitamins, herbs, and supplements. Follow your health care provider's instructions about cleaning out your bowels. Surgery safety Ask your health care provider: How your surgery site will be marked. What steps will be taken to help prevent infection. These steps may include: ?Removing hair at the surgery site. ?Washing skin with a germ-killing soap. ?Taking antibiotic medicine. General instructions Do not use any products that contain nicotine or tobacco for at least 4 weeks before the procedure.These products include cigarettes, chewing tobacco, and vaping devices, such as e-cigarettes. If you need help quitting, ask your health care provider. Plan to have a responsible adult take you home from the hospital or clinic. Plan to have a responsible adult care for you for the time you are told after you leave the hospital or clinic. You may have an exam or testing. This may include blood or urine samples, or imaging tests such as a CT scan or an MRI. What happens during the procedure? An IV will be put into a vein in your hand or arm. You may be given: ?A medicine to help you relax (sedative). ?A medicine to make you fall asleep (general anesthetic). A thin, flexible tube (Fisher catheter) will be put into your penis through your urethra and into your bladder to drain your urine. Small incisions will be made in your abdomen and near your belly button. The laparoscope and other surgical instruments will be put through the incisions. The surgical tools will be used to cut and remove your prostate, seminal vesicles, and maybe your pelvic lymph nodes.Your surgeon will use a computer and robotic arms to control the surgical instruments. Your urethra will be cut and from your bladder to take out the prostate. Your urethra will then be reconnected to your bladder neck. This is the group of muscles that help push urine through your urethra. A small tube (drain) may be put in one or more of your incisions to help drain extra fluid from your surgical site after surgery. The laparoscope and other surgical instruments will be removed. Your incisions will be closed with stitches (sutures), skin glue, or adhesive strips. Medicine may be applied and bandages (dressings) will be placed over your incisions. The procedure may vary among health care providers and hospitals. What happens after the procedure? Your blood pressure, heart rate, breathing rate, and blood oxygen level will be monitored until youleave the hospital or clinic. You may get fluids and medicines through your IV. You may be given antibiotics and medicines to help relieve pain or nausea. You will be encouraged to walk as soon as possible. You will also use a device or do breathing exercises to keep your lungs clear. The catheter will stay in to drain urine from your bladder. You will be taught how to care for it at home. The drain may stay in to drain fluid from the surgical site. If so, you will be taught how to care for it at home. You may need to wear compression stockings until you are able to get up and walk around. These stockings help prevent blood clots and reduce swelling in your legs. If you were given a sedative during the procedure, it can affect you for several hours. Do not drive or operate machinery until your health care provider says that it is safe. Summary Robot-assisted laparoscopic radical prostatectomy is a surgical procedure to remove the entire prostate and the seminal vesicles. Follow instructions from your health care provider about eating and drinking before your surgery. After your procedure, you may be given fluids and medicines through an IV. You may get antibiotics and medicines to help relieve pain or nausea. After your surgery, you will continue to have a small, thin tube (Fisher catheter) draining your urine. You will be taught how to care for it at home. This information is not intended to replace advice given to you by your health care provider. Make sure you discuss any questions you have with your health care provider. Document Revised: 09/08/2021 Document Reviewed: 09/08/2021 [employer] Patient Education 2022 [employer]. 07/31/2023 09:05:54 Transurethral Resection of the Prostate Transurethral Resection of the Prostate Transurethral resection of the prostate (TURP) is the removal, or resection, of part of the prostate tissue. This procedure is done to treat an enlarged prostate gland (benign prostatic hyperplasia). The goal of TURP is to remove enough prostate tissue to allow for a normal flow of urine. The procedure will allow you to empty your bladder more completely when you urinate so that you can urinate less often. In a transurethral resection, a thin telescope with a light, a camera, and an electric cutting edge(resectoscope) is passed through the urethra and into the prostate. The opening of the urethra is at the end of the penis. Tell a health care provider about: Any allergies you have. All medicines you are taking, including vitamins, herbs, eye drops, creams, and yfiu-qdh-zofiurg medicines. Any problems you or family members have had with anesthetic medicines. Any bleeding problems you have. Any surgeries you have had. Any medical conditions you have. Any prostate infections you have had. What are the risks? Generally, this is a safe procedure. However, problems may occur, including: Infection. Bleeding. Allergic reactions to medicines. Blood in the urine (hematuria). Damage to nearby structures or organs. Other problems may occur, but they are rare. They include: Dry ejaculation, or having no semen come out during orgasm. Erectile dysfunction, or being unable to have or keep an erection. Scarring that leads to narrowing of the urethra. This narrowing may block the flow of urine. Inability to control when you urinate (incontinence). Deep vein thrombosis. This is a blood clot that can develop in your leg. TURP syndrome. This can happen when you lose too much sodium during or after the procedure. Some signs and symptoms of this condition include: ?Weakness. ?Headaches. ?Nausea or vomiting. ?Muscle cramping. What happens before the procedure? When to stop eating and drinking Follow instructions from your health care provider about what you may eat and drink before your procedure. These may include: 8 hours before your procedure ?Stop eating most foods. Do not eat meat, fried foods, or fatty foods. ?Eat only light foods, such as toast or crackers. ?All liquids are okay except energy drinks and alcohol. 6 hours before your procedure ?Stop eating. ?Drink only clear liquids, such as water, clear fruit juice, black coffee, plain tea, and sports drinks. ?Do not drink energy drinks or alcohol. 2 hours before your procedure ?Stop drinking all liquids. ?You may be allowed to take medicines with small sips of water. If you do not follow your health care provider's instructions, your procedure may be delayed or canceled. Medicines Ask your health care provider about: Changing or stopping your regular medicines. This is especially important if you are taking diabetes medicines or blood thinners. Taking medicines such as aspirin and ibuprofen. These medicines can thin your blood. Do not take these medicines unless your health care provider tells you to take them. Taking bwdy-sle-wypmlou medicines, vitamins, herbs, and supplements. Surgery safety Ask your health care provider what steps will be taken to help prevent infection. These steps may include: Removing hair at the surgery site. Washing skin with a germ-killing soap. Taking antibiotic medicine. General instructions Do not use any products that contain nicotine or tobacco for at least 4 weeks before the procedure.These products include cigarettes, chewing tobacco, and vaping devices, such as e-cigarettes. If you need help quitting, ask your health care provider. If you will be going home right after the procedure, plan to have a responsible adult: ?Take you home from the hospital or clinic. You will not be allowed to drive. ?Care for you for the time you are told. What happens during the procedure? An IV will be inserted into one of your veins. You will be given one or more of the following: ?A medicine to help you relax (sedative). ?A medicine to make you fall asleep (general anesthetic). ?A medicine that is injected into your spine to numb the area below and slightly above the injection site (spinal anesthetic). Your legs will be placed in foot rests (stirrups) so that your legs are apart and your knees are bent. The resectoscope will be passed through your urethra to your prostate. Parts of your prostate will be resected using the cutting edge of the resectoscope. Fluid will be passed to rinse out the cut tissues (irrigation). The resectoscope will be removed. A small, thin tube (catheter) will be passed through your urethra and into your bladder. The catheter will drain urine into a bag outside of your body. The procedure may vary among health care providers and hospitals. What happens after the procedure? Your blood pressure, heart rate, breathing rate, and blood oxygen level will be monitored until youleave the hospital or clinic. You will be given fluids through the IV. The IV will be removed when you start eating and drinking normally. You may have some pain. Pain medicine will be available to help you. You will have a catheter draining your urine. ?You may have blood in your urine. Your catheter may be kept in until your urine is clear. ?Your urinary drainage will be monitored. If necessary, your bladder may be rinsed out (irrigated) through your catheter. You will be encouraged to walk around as soon as possible. You may have to wear compression stockings. These stockings help to prevent blood clots and reduce swelling in your legs. If you were given a sedative during the procedure, it can affect you for several hours. Do not drive or operate machinery until your health care provider says that it is safe. Summary Transurethral resection of the prostate (TURP) is the removal (resection) of part of the prostate tissue. The goal of this procedure is to remove enough prostate tissue to allow for a normal flow of urine. Follow instructions from your health care provider about taking medicines and about eating and drinking before the procedure. This information is not intended to replace advice given to you by your health care provider. Make sure you discuss any questions you have with your health care provider. Document Revised: 03/08/2022 Document Reviewed: 03/08/2022 [employer] Patient Education 2022 [employer]. 07/31/2023 09:05:54 EU - Cystoscopy Discharge Instructions (CUSTOM) Cystoscopy Voiding after the procedure: there may be some pain, burning, urgency, frequency and blood tinged urine following the procedure. These symptoms usually resolve within 2-5 days. Drink the amount of fluid it takes to keep the urine pink to yellow or clear in color. Drinking enough water and fluids will help to ease any discomfort after your procedure. If you are having problems that seem out of the ordinary, please call. If unable to contact your physician and you feel it is an emergency, go to the nearest emergency room or call 911 Diet you may resume your normal diet. Activity you may resume your normal activities Call if you have a fever over 100 degrees. Follow Up Care 06/30/2023 10:04:12 With:Meghan Brito Address: [facility] [address] [address]- [phone] Business (1) When: Unknown Comments:Office to schedule follow up in 3-4 months or call sooner for procedure (pt knows will be done by partner/referred out if during leave) [facility]12-28-2023 Evaluation note* Encounter Date Diagnosis Assessment Notes Treatment Notes Treatment Clinical Notes May, Simple chronic bronchitis (ICD-10 - J41.0) [facility] Other 12-27-2023 Evaluation note* Encounter Date Diagnosis Assessment Notes Treatment Notes Treatment Clinical Notes May, Simple chronic bronchitis (ICD-10 - J41.0) [facility] Other 12-26-2023 Evaluation note* Encounter Date Diagnosis Assessment Notes Treatment Notes Treatment Clinical Notes May, Simple chronic bronchitis (ICD-10 - J41.0) [facility]PS Real-Time Other 12-22-2023 Hospital Discharge instructions Patient Education [...] treatment? Where to find more information [employer] [place] [employer]: www.cancer.org [place] [employer]: www.auanet.org Contact a health care [...] provider. Document Revised: 12/06/2021 Document Reviewed: 12/06/2021 [employer] Patient Education 2022 [employer]o. Follow Up Care 06/16/2023 08:30:52 With:Daryl HAMILTON, LOGAN Villalpando, URO Address: [address], [place] [phone] When: Unknown Comments:6 mos w/ CT and PSA [facility] 12-20-2023 Hospital Discharge instructions Follow Up Care 06/14/2023 08:28:10 With:Daryl HAMILTON, Meghan Tucker URL, URO Address: When: Unknown [facility] 12-12-2023 Hospital Discharge instructions Patient Education 06/06/2023 16:52:41 EU - Transrectal Ultrasound of the Prostate with US guided biopsy Discharge Instructions (CUSTOM) Transperineal?Biopsy of the Prostate Discharge Instructions After the procedure, it is common to have: Pain and discomfort near your rectum, especially while sitting. Questa-colored urine due to small amounts of blood [...] Brito Address:Unknown When: Unknown Comments:Keep scheduled appointment [facility]12-12-2023 Evaluation + Plan noteExtracted from: Title:EU -transperineal prostate biopsy Author:Meghan Melgoza MD Date:06/06/23 Impression and Plan Diagnosis Elevated PSA ([id number] R97.20, Discharge, Medical). Diagnosis Elevated PSA ([id number] R97.20, Discharge, Medical). Future Appointments Appointment Date:06/14/2023 10:30:00 AM Scheduled Provider:Meghan Brito MD Location:[facility] Appointment Type:URO Office Visit [facility]11-20-2023 Note [id number] Discharge instructions Follow Up Care 05/10/2023 11:27:04 With:Meghan Brito MD, URL, URO Address: [address] [place] [phone] When: Unknown [facility] 11-15-2023 Hospital Discharge instructions Patient Education 05/10/2023 [...] treatment? Where to find more information [employer] [place] [employer]: www.cancer.org [employer] [employer]: www.auanet.org Contact a health care [...] provider. Document Revised: 12/06/2021 Document Reviewed: 12/06/2021 Else[employer] Patient Education 2022 ExtraOrtho. 05/10/2023 11:11:23 Benign Prostatic Hyperplasia Benign Prostatic [...] urethra. Follow these instructions at home: Take nbjq-wlq-awqwkaj and prescription medicines only as told by [...] provider. Document Revised: 12/29/2021 Document Reviewed: 12/29/2021 [employer] Patient Education 2022 [employer]. Follow Up Care 04/12/2023 09:16:25 With:Daryl HAMILTON, LOGAN Villalpando, URO Address: When: Unknown Comments:Sched Transperineal Bx of Prostate [facility] 11-02-2023 Evaluation note* Encounter Date Diagnosis Assessment Notes Treatment Notes Treatment Clinical Notes Apr, Primary hypertension (ICD-10 - I10) [facility]PS Real-Time Other 10-17-2023 Hospital Discharge instructions Patient Education [...] treatment? Where to find more information [employer] [place] [employer]: www.cancer.org [employer] [employer]: www.auanet.org Contact a health care [...] provider. Document Revised: 12/06/2021 Document Reviewed: 12/06/2021 [employer] Patient Education 2022 [employer]Or[employer]o. Follow Up Care 03/16/2023 16:12:09 With:THERESA ARRIOLA PA-C, URL Address: [address] [place] [address] [phone] When: Unknown Comments:f/u with MD in 1 month w/ PSA and Select MDX [facility] 10-10-2023 Evaluation note* Encounter Date Diagnosis Assessment Notes Treatment Notes Treatment Clinical Notes Mar, Primary hypertension (ICD-10 - I10) [facility] Real-Time Other 06-27-2023 Hospital Discharge instructions Patient Education [...] treatment? Where to find more information The [place] [employer]: www.cancer.org [employer] [employer]: www.auanet.org Contact a health care [...] provider. Document Revised: 12/06/2021 Document Reviewed: 12/06/2021 [employer] Patient Education 2022 [employer]. Follow Up Care 10/03/2022 14:27:57 With:FLAKO ELLIOTT, THERESA Merida, URL Address: [address] [place] [address] When: Unknown Comments:Sched Select MDX and MRI of Prostate. [facility] 06-20-2023 Evaluation note* Encounter Date Diagnosis Assessment Notes Treatment Notes Treatment Clinical Notes Nov, Cigarette nicotine dependence in remission (ICD-10 - F17.211) Started at age 19, quit age 66, 1ppd. LDCT w/o nodules - 11/2022 MEPS Real-Time Other 06-19-2023 Evaluation note* Encounter Date Diagnosis Assessment Notes Treatment Notes Treatment Clinical Notes Nov, Simple chronic bronchitis (ICD-10 - J41.0) Nov, Cigarette nicotine dependence in remission (ICD-10 - F17.211) Started at age 19, quit age 66, 1ppd. LDCT w/o nodules - 11/2022 MEPS Real-Time Other 05-31-2023 Evaluation note* Encounter Date Diagnosis [...] Z12.5) Yearly MARIZA and PSA, f/u Urology [facility]PS Real-Time Other 03-08-2023 Evaluation note* Encounter Date Diagnosis [...] in remission (ICD-10 - F17.211) Continue abstinence MEPS Real-Time Other 05-03-2022 Hospital Discharge instructions Patient Education [...] urethra. Follow these instructions at home: Take diqg-tto-lgjgfwt and prescription medicines only as told by [...] 06/12/2006 Document Revised: 05/07/2019 Document Reviewed: 07/17/2017 [employer] Patient Education 2020 ExtraOrtho. Follow Up Care 10/22/2020 09:07:58 With:Erlin Alonso MD, Daniel Tse, URO Address: [facility] [address] [place] [address]- When:10/26/2022 Comments:with PSA [facility] 02-12-2022 Evaluation note* Encounter Date Diagnosis [...] Patient care instructions given in writting by [facility] Care At Home document MEPS Real-Time Other 11-29-2021 Evaluation note* Encounter Date Diagnosis Assessment Notes Treatment Notes Treatment Clinical Notes Apr, Contact with and (suspected) exposure to other viral communicable diseases (ICD-10 - Z20.828) Apr, COVID-19 (ICD-10 - U07.1) Today you tested positive for the COVID virus. This mean you need to follow all CDC quarantine guidelines [facility] at [email or web address]. It is important to rest, increase [...] Patient care instructions given in writting by [facility] Care At Home document. MEPS Real-Time Other Evaluation + Plan note Future Appointments Appointment Date:11/01/2022 08:15:00 AM Scheduled Provider:Erlin Alonso MD, Daniel Tse Location:[facility] Appointment Type:URO Office Visit Diagnostic Tests Pending * PSA Total 10/26/21 [facility] evaluation + Plan note Future Appointments Appointment Date:04/28/2023 08:15:00 AM Scheduled Provider:Meghan Brito MD Location:[facility] Appointment Type:URO Office Visit Diagnostic Tests Pending * PSA Total 04/11/23 [facility] evaluation + Plan note Future Appointments Appointment Date:06/06/2023 02:30:00 PM Scheduled Provider: Location:[facility] Appointment Type:Surgery FT Appointment Date:06/14/2023 10:30:00 AM Scheduled Provider:Meghan Brito MD Location:[facility] Appointment Type:URO Office Visit [facility] evaluation + Plan note Future Appointments Appointment Date:06/15/2023 03:30:00 PM Scheduled Provider:Meghan Brito MD Location:[facility] Appointment Type:URO Office Visit [facility] evaluation + Plan note Future Appointments Appointment Date:06/21/2023 08:45:00 AM Scheduled Provider:Meghan Brito MD Location:[facility] Appointment Type:URO Office Visit [facility] Evaluation + Plan note Future Appointments Appointment Date:06/30/2023 09:15:00 AM Scheduled Provider: Location:[facility] Appointment Type:URO Nurse Visit Diagnostic Tests Pending * PSA Free & Total 06/16/23 [facility] evaluation + Plan note Future Appointments Appointment Date:06/30/2023 09:15:00 AM Scheduled Provider: Location:[facility] Appointment Type:URO Nurse Visit [facility] evaluation + Plan note Future Appointments Appointment Date:07/31/2023 08:30:00 AM Scheduled Provider: Location:[facility] Appointment Type:Urology FT [facility] evaluation + Plan note Future Appointments Appointment Date:07/31/2023 08:30:00 AM Scheduled Provider: Location:[facility] Appointment Type:Urology FT Diagnostic Tests Pending * Urine Cytology ([facility]) [facility] [facility] assessment information available [facility] Work Phone: Evaluation noteNo InformationNort Adpoints Other Hiszjme general Narrative - Reported* Type Description Date Medical History high blood pressure Medical History high cholesterol MEPS Real-Time Other Hispv[facility] general Narrative - Reported* Type Description Date [...] HERNIA 1989 Hospitalization History SEE SURGICAL HX MEPS Real-Time Other Hisugxi general Narrative - Reported* Type Description Date [...] HERNIA 1989 Hospitalization History SEE SURGICAL HX MEPS Real-Time Other Hospital course Narrative No data available for this section [facility] Hospital Discharge instructions No data available for this section [facility] progress note No data available for this section [facility] Summary Purpose Family History No Family History [...] and content) DATE CREATED AUTHOR 11/08/2022 [facility] DATE CREATED AUTHOR AUTHOR'S ORGANIZ ATION 04/13/2023 [facility] DATE CREATED AUTHOR AUTHOR'S ORGANIZ ATION 06/17/2023 [facility] DATE CREATED AUTHOR AUTHOR'S ORGANIZ ATION 11/22/2023 [facility] Patient Care team informatio n (unrecognized [...] BE BASED ON THE PRIMARY CLINICAL RECORDS. [employer] [facility]. provides no warranty or guarantee of the accuracy or completeness of information in this document.
[2023-11-24 07:34] LABS: Basophils Absolute Auto 0.1 10^3/uL (0.0-0.1); Basophils Percent Auto 1.4 % (0.2-2.0); Eosinophils Absolute Auto 0.2 10^3/uL (0.0-0.7); Eosinophils Percent Auto 4.8 % (0.9-7.0); Hematocrit 39.3 % (42.0-54.0); Hemoglobin 12.9 g/dL (14.0-18.0); Immature Granulocytes Abs Auto 0.01 10^3/uL (0.00-0.03); Immature Granulocytes Pct Auto 0.2 % (0.0-0.5); Lymphocytes Absolute Auto 1.6 10^3/uL (1.2-3.8); Mean Corpuscular HGB Conc 32.8 g/dL (29.9-35.2); Mean Corpuscular Hemoglobin 28.4 pg (25.9-34.0); Mean Corpuscular Volume 86.6 fL (80.0-94.0); Mean Platelet Volume 10.3 fL (9.5-13.5); Monocytes Absolute Auto 0.4 10^3/uL (0.3-0.8); Monocytes Percent Auto 8.1 % (1.7-12.0); Neutrophils Absolute Auto 2.8 10^3/uL (1.4-6.5); Neutrophils Percent Auto 54.5 % (43.0-75.0); Platelet Count 177 10^3/uL (150-450); Red Blood Count 4.54 10^6/uL (4.70-6.10); Red Cell Distribution Width 13.2 % (11.0-15.0)
[2023-11-24 08:05] LABS: Alanine Aminotransferase 25 U/L (16-63); Albumin Globulin Ratio 1.1; Albumin Level 3.8 g/dL (3.4-5.0); Alkaline Phosphatase 72 U/L (46-116); Anion Gap 13.1; Aspartate Amino Transferase 17 U/L (15-37); BUN Creatinine Ratio 15.7; Bilirubin Total 0.9 mg/dL (0.2-1.0); Calcium 8.9 mg/dL (8.5-10.1); Carbon Dioxide 28.1 mmol/L (21.0-32.0); Chloride 105 mmol/L (98-107); Chol HDL Ratio 5.5; Cholesterol 188 mg/dL (<=200); Estimated GFR (African America >60 (>=60); Estimated GFR (Non-African Ame 51 (>=60); Globulin 3.5 g/dL; Glucose 114 mg/dL (74-106); HDL Cholesterol 34 mg/dL (40-60); Potassium 4.2 mmol/L (3.5-5.1); Sodium 142 mmol/L (136-145); Total Protein 7.3 g/dL (6.4-8.2); Triglycerides 96 mg/dL (<=150); VLDL CHOLESTEROL 19.2 mg/dL
== END 2023-11-24 06:47 | disposition home or self-care (01) ==
LOC: LAB 06:48
PROVIDERS: PCP Internal Medicine; Visit Provider Internal Medicine
DX: Z12.5 Encounter for screening for malignant neoplasm of prostate (principal); E78.00 Pure hypercholesterolemia, unspecified; K21.9 Gastro-esophageal reflux disease without esophagitis; N40.1 Benign prostatic hyperplasia with lower urinary tract symptoms
CPT/HCPCS: 36415; 80053; 80061; 85025; G0103

== ENCOUNTER 2024-01-12 06:52 | Outpatient (OUT) | payer MEDICARE, SELFPAY ==
--- NOTE | 2024-01-12 | PCN_ITS ---
CARDIAC STRESS TEST Requesting Physician: Procedure Date: 01/12/2024 This was a treadmill exercise stress test with myocardial perfusion imaging performed at the [facility] on 01/12/2024. Informed consent was obtained. Baseline vital signs and ECG were obtained. An intravenous line was secured. The patient exercised on the treadmill according to the Luciano protocol for a total of 4 minutes and 8 seconds, reaching stage 2 of the Luciano protocol and achieving 4.6 METS. Baseline heart rate was 58 BPM and maximum heart rate was 139 BPM, representing 90% of maximal predicted heart rate. Resting blood pressure was 130/70 and maximum blood pressure was 188/88. Resting ECG showed sinus bradycardia with non-specific ST-T wave abnormalities in leads 2, 3, AVF, V4, V5 and V6. There was evidence of frequent premature ventricular contractions. ECG during exercise showed evidence of sinus tachycardia with worsening of baseline ST segment changes in leads 2, 3, AVF, V4, V5 and V6. There was evidence of occasional PVCs during the recovery period. Final ECG showed sinus rhythm with non-specific ST changes and premature ventricular contractions and was comparable to baseline. SUMMARY OF THE FINDINGS: 1. Equivocal stress test by ECG criteria, due to the presence of baseline ECG changes. 2. Presence of PVCs at baseline and during recovery. 3. Myocardial perfusion images will be reported separately. [facility]
--- OUTSIDE RECORDS SUMMARY | 2024-01-12 06:55 | XMS_ITS | CCD ---
Author Organization [facility] CliniSysd Care Team Providers Care Fpga Engineer Name Role Phone GIO JASSO Primary Care [...] Unavailable Mao, DO Powers Primary Care Provider [phone] EARL Arriola Attending Provider Theresa Arriola Attending Unavailable Theresa Arriola Admitting Unavailable Gio Jasso Primary Care Unavailable ERIKA HAMILTON, DUY Tse Attending Unavailable Meghan Brito Attending Unavailable Meghan Brito Referring Unavailable Meghan Brito Admitting Unavailable Meghan Brito Referring Unavailable Lue, Meghan M. Admitting Unavailable Lue, Meghan M. Attending Unavailable Lue, Meghan M. Attending Unavailable Lue, Meghan M. Admitting Unavailable Lue, Meghan M. Referring Unavailable Lue, Meghan M. Admitting Unavailable Lue, Meghan M. Attending Unavailable Lue, Meghan M. Attending Unavailable Lue, Meghan M. Attending Unavailable Lue, Meghan M. Attending Unavailable Lue, Meghan M. Attending Unavailable Lue, Meghan M. Attending Unavailable Lue, Meghan M. Attending Unavailable Lue, Meghan M. Attending Unavailable Lue, Meghan M. Attending Unavailable THERESA ARRIOLA Attending Unavailable Lue, Meghan M. Attending Unavailable Lue, Meghan M. Admitting Unavailable Lue, Meghan M. Attending Unavailable Lue, Meghan M. Referring Unavailable Allergies Allergy Classification Reported Allergen(s) Allergy Type Date of Onset Reaction(s) Facility (20 sources) Cephalexin; Translations: [cephalexin] Drug Allergy 04-06-20 20 Unknown (qualifier value), Dyspnea (finding) [employer] Other (20 sources) Penicillins; Translations: [penicillins] Drug allergy 08-07-19 16 Unknown (qualifier value), Dyspnea (finding) [facility] (2 sources) Penicillin V Drug Allergy rash/cough [employer] [facility] [employer] Other (13 sources) Cephalexin; Translations: [Keflex] Drug Allergy 08-07-19 16 rash/cough [facility] (11 sources) Penicillin Drug Allergy rash/cough [employer] Other (7 sources) Keflex *CEPHALOSPORINS* Propensity to adverse reactions 02-29-20 18 Unknown [employer] Other (2 sources) Penicillin G Benzathine & Proc Drug allergy 02-29-20 18 Unknown [employer] Other (2 sources) patient allergy list reviewed by nurse or physicia Propensity to adverse reactions 03-02-20 18 Comment:Done [employer] Other (1 source) Cephalexin Drug Allergy 04-06-20 [facility] (1 source) Cephalosporins (Antibiotic) Allergy to substance 11-28-[address] [facility] Medications Current Medications Medication Drug Class(es) Dates Sig (Normalized) Sig (Original) albuterol 0.83 mg/ml inhalation solution (20 sources) beta2-Adrenergic Agonist Start: 12-25-2023 take 2.5 mg by inhalation every six hours as needed albuterol 0.083% Inh Haydee 3 mL 2.5 mg, 3 mL, Inhalation, q6hr Shortness of breath or wheezing, Q6H and PRN Start Date: 12/25/23 Status: Ordered Start: 05-24-2021 take 2 puff(s) by in [...] hydrochloride 10 mg extended release oral tablet (20 sources) alpha-Adrenergic Mary Start: 07-28-2023 take 1 tablet by mouth once daily alfuzosin 10 mg ER Tab 10 mg = 1 tab(s), Oral, Daily, # 90 tab(s), Refills(s) 3, Pharmacy: [facility], 180, cm, 06/16/23 9:50:00 EST, Height/Length Dosing, 108.2, kg, 06/16/23 9:50:00 EST, Weight Dosing Start Date: 07/28/23 Status: Ordered Start: 01-30-2023 take 1 tablet by chris once daily alfuzosin 10 mg ER Tab 10 mg = 1 tab(s), Oral, Daily, # 30 tab(s), Refills(s) 5, Pharmacy: [id number], 180, cm, 12/20/22 10:13:00 EDT, Height/Length Dosing, 102.5, kg, 12/20/22 10:13:00 EDT, Weight Dosing Start Date: 01/30/23 Status: Ordered Start: 07-14-2022 take 1 tablet by [facility] once daily alfuzosin 10 mg ER Tab 10 mg = 1 tab(s), Oral, Daily, # 30 tab(s), Refills(s) 5, Pharmacy: [id number], 180, cm, 10/26/21 9:12:00 EDT, Height/Length Dosing, 95.2, kg, 10/26/21 9:12:00 EDT, Weight Dosing Start Date: 07/14/22 Status: Ordered Start: 07-08-2021 take 1 tablet by [facility] once daily alfuzosin 10 mg ER Tab 10 mg = 1 tab(s), Oral, Daily, # 30 tab(s), Refills(s) 11, Pharmacy: [id number] [facility], 180, cm, 07/08/21 15:57:00 EST, Height/Length Dosing, 95.2, kg, 07/08/21 15:57:00 EST, Weight Dosing Start Date: 07/08/21 Status: Ordered amLODIPine 5 mg oral tablet (2 sources) Dihydropyridine Calcium Channel Mary Start: 12-25-2023 take 1 tablet by mouth once daily amLODIPine 5 mg Tab 5 mg = 1 tab(s), Oral, Daily, High blood pressure Start Date: 12/25/23 Status: Ordered azithromycin 250 mg oral tablet (1 source) Macrolide Antimicrobial Start: 08-31-2022 Azithromycin 250 MG as directed Orally daily for 5 days Aug, Active carvedilol 6.25 mg oral tablet (20 sources) alpha-Adrenergic Mary, beta-Adrenergic Mary Start: 03-22-2019 End: 09-26-2023 take 1 tablet by mouth twice daily [...] day(s), # 2 tab(s), Refills(s) 0, Pharmacy: [facility], 180, cm, 05/10/23 10:56:00 EST, Height/Length Dosing, 102, kg, 05/10/23 10:56:00 EST, Weight Dosing Start Date: 05/10/23 Stop Date: 05/11/23 Status: Ordered diazePAM 10 mg oral tablet (4 sources) Benzodiazepine Start: 05-10-2023 Valium 10 mg Tab 10 mg = 1 tab(s), Oral, Once, take 30 minutes prior to procedure, # 1 tab(s), Refills(s) 0, Pharmacy: [facility], 180, cm, 05/10/23 10:56:00 EST, Height/Length Dosing, 102, kg, 05/10/23 10:56:00 EST, Weight Dosing Start Date: 05/10/23 Status: Ordered lisinopril 40 mg oral tablet (20 sources) Angiotensin Converting Enzyme Inhibitor Start: 03-22-2019 take 1 tablet by mouth once daily lisinopril 40 mg Tab 40 mg = 1 tab(s), Oral, Daily, Refills(s) 0, High blood pressure Start Date: 03/22/19 Status: Ordered Lisinopril Activ e 10 actuat olodaterol 0.0025 mg/actuat / tiotropium 0.0025 mg/actuat inhalation spray (1 source) Anticholinergic, beta2-Adrenergic Agonist Start: 06-21-2023 Stiolto Respimat 2.5-2.5 MCG/ACT 2 puffs Inhalation Once a day for 30 days d/c Anoro Rx May, Active 30 actuat umeclidinium 0.0625 mg/actuat / vilanterol [...] at 11pm Orally BID for 1 days BIN:[id number] PCN: [id number] GROUP:[id number] ID:[id number] October, Not-Taking/PRN Start: 11-17-2020 Plenvu 140 GM dose 1 pouch at 4pm, dose 2 pouch A & B at 11pm Orally BID for 1 days BIN:[id number] PCN: CNRX GROUP:[id number] ID:[id number] October, Not-Taking Start: 11-17-2020 Plenvu 140 GM dose 1 pouch at 4pm, dose 2 pouch A & B at 11pm Orally BID for 1 days BIN:[id number]: CNRXGROUP:[id number] October, Not-Taking Start: 11-17-2020 Plenvu 140 GM dose 1 pouch at 4pm, dose 2 pouch A & B at 11pm Orally BID for 1 days BIN:[id number]: CNRXGROUP:[id number] October, Active methylPREDNISolone 4 mg oral tablet [...] as needed for 5 days Jul, Not-Taking/PRN rosuvastatin calcium 20 mg oral tablet (16 sources) HMG-CoA Reductase Inhibitor Start: 12-16-2020 End: 11-28-2023 take 20 mg by mouth once daily Rosuvastatin Discontinued 20 MG PO Daily December 16, 2020 12:00am November 28, 2023 9:01am Start: 03-26-2019 rosuvastatin O ral, Daily, Refills(s) 0 Start Date: 03/26/19 Status: Ordered Rosuvastatin Eliceo cium Not-Taking/PRN Rosuvastatin Eliceo cium Not-Taking Rosuvastatin Eliceo cium Active tamsulosin hydrochloride 0.4 mg oral capsule (2 sources) alpha-Adrenergic Mary Start: 12-16-2020 End: 11-28-2023 take 0.4 mg by mouth once daily Tamsulosin Discontinued 0.4 MG PO Daily December 16, 2020 12:00am November 28, 2023 9:01am Problems Active Problems Problem Classification Problem Date Documented Date Episodic/Chronic Asthma (1 source) Unspecified asthma with status asthmaticus; Translations: [UNS ASTHMA W/STATUS ASTHMATICUS] Onset: 08-30-2022 Chronic Chronic kidney disease (2 sources) Chronic kidney disease; Translations: [Chronic kidney disease, unspecified] 11-26-2023 Chronic Chronic obstructive pulmonary disease and bronchiectasis (20 sources) Acute exacerbation of chronic obstructive airways disease; Translations: [Chronic obstructive pulmonary disease with (acute) exacerbation] Onset: 08-30-2022 Chronic Deficiency and other anemia (14 sources) Anemia; Translations: [Anemia, unspecified] 11-26-2023 Episodic Deficiency and other anemia (5 sources) Anemia, unspecified; Translations: [Anemia, unspecified] Onset: 05-18-2022 Episodic Disorders of lipid metabolism (20 sources) [...] Episodic Inflammatory conditions of male genital organs (16 sources) Chronic prostatitis; Translations: [Chronic prostatitis] Onset: 07-31-2023 04-23-2020 Chronic Lymphadenitis (4 sources) Lymphadenopathy; Translations: [Enlarged lymph nodes, unspecified] Onset: 11-29-2023 Episodic Osteoarthritis (15 sources) Arthritis 01-29-2019 Chronic Other aftercare (1 source) Other chcf (current) drug therapy; Translations: [OTH 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 CONTENT 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 CURRENT DRUG THERAPY] Onset: 08-30-2022 Episodic Other aftercare (2 sources) Long-term current use of drug therapy; Translations: [Other polarity tester (current) drug therapy] Episodic Other and unspecified [...] serum enzymes Episodic Other male genital disorders (10 sources) Male erectile dysfunction, unspecified; Translations: [Erectile [...] of mental health and substance abuse codes (11 sources) Personal history of nicotine dependence; Translations: [H/O: Disorder] Onset: 08-30-2022 Episodic Substance-related disorders (20 sources) Smoker; 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] Onset: 03-02-2018 Resolved: 11-18-2021 04-23-2020 Chronic Unclassified (15 sources) Finding of sensation of bladder 03-26-2020 [...] Onset: 04-03-2023 Varicose veins of lower extremity (20 sources) Varicose veins of lower extremity; Translations: [Asymptomatic varicose veins of unspecified lower extremity] Onset: 02-28-2018 01-29-2019 Episodic Past or Other Problems Problem Classification Problem Date Documented Da te Episodic/Chronic Chronic obstructive pulmonary disease and bronchiectasis (1 source) Bronchitis, not specified as acute or chronic Onset: 05-24-2021 Resolved: 05-24-2021 Episodic Esophageal disorders (5 sources) Esophageal disorders; [...] Test Name Value Interpretation Reference Range Facility [facility] 12-25-2023 Anion gap [Moles/Vol] 9 mmol/L Normal 6-16 [facility] Comment on above: Performed By: #### 2 [id number] #### [facility] [address] [place] [address] Calcium [Mass/Vol] 9.4 mg/dL Normal 8.9-11.1 [facility] Comment on above: Performed By: #### 2 [id number] #### [facility] [address] [place] [address] Chloride [Moles/Vol] 104 mmol/L Normal 101-111 [facility] Comment on above: Performed By: #### 2 [id number] #### [facility] [address] [place] [address] CO2 [Moles/Vol] 30 mmol/L Normal 21-31 [facility] Comment on above: Performed By: #### 2 [id number] #### [facility] [address] [place] [address] Creatinine [Mass/Vol] 1.3 mg/dL Normal 0.5-1.3 [facility] Comment on above: Performed By: #### 2 [id number] #### [facility] [address] [place] [address] Glucose [Mass/Vol] 113 mg/dL Normal 55-199 [facility] Comment on above: Performed By: #### 2 [id number] #### [facility] [address] [place] [address] Potassium [Moles/Vol] 4.3 mmol/L Normal 3.5-5.3 [facility] Comment on above: Performed By: #### 2 [id number] #### [facility] [address] [place] [address] Sodium [Moles/Vol] 139 mmol/L Normal 135-145 [facility] Comment on above: Performed By: #### 2 [id number] #### [facility] [address] [place] [address] Urea nitrogen [Mass/Vol] 21 mg/dL Normal 5-21 [facility] Comment on above: Performed By: #### 2 [id number] #### [facility] [address] [place] [address] Urea nitrogen/Creatinine [Mass ratio] 16 No Units Normal 10-20 [facility] Comment on above: Performed By: #### 2 [id number] #### [facility] [address] [place] [address] CBC w/ Auto Diffon 4 Basophils/100 WBC (Bld) 2.0 % Normal 0.0-2.0 [facility] Comment on above: Performed By: #### 2 [id number] #### [facility] [address] [place] [address] Basophils/Leukocytes Auto (Bld) [Pure # fraction] 0.1 E9/L Normal 0.0-0.2 [facility] Comment on above: Performed By: #### 2 [id number] #### [facility] [address] [place] [address] Eosinophils (Bld) [#/Vol] 0.3 E9/L Normal 0.0-0.5 [facility] Comment on above: Performed By: #### 2 [id number] #### [facility] [address] [place] [address] Eosinophils/100 WBC (Bld) 4.8 % Normal 0.0-8.0 [facility] Comment on above: Performed By: #### 2 [id number] #### [facility] [address] [place] [address] Erythrocyte distribution width (RBC) [Ratio] 14.1 % Normal 10.9-14.2 [facility] Comment on above: Performed By: #### 2 [id number] #### [facility] [address] [place] [address] Hematocrit (Bld) [Volume fraction] 38.5 % Normal 37.7-49.0 [facility] Comment on above: Performed By: #### 2 [id number] #### [facility] [address] [place] [address] Hemoglobin (Bld) [Mass/Vol] 13.7 g/dL Normal 13.5-17.5 [facility] Comment on above: Performed By: #### 2 [id number] #### [facility] [address] [place] [address] Lymphocytes (Bld) [#/Vol] 1.6 E9/L Normal 1.0-4.0 [facility] Comment on above: Performed By: #### 2 [id number] #### [facility] [address] [place] [address] Lymphocytes/100 WBC (Bld) 29.7 % Normal 14.0-50.0 [facility] Comment on above: Performed By: #### 2 [id number] #### [facility] [address] [place] [address] MCH (RBC) [Entitic mass] 30.3 pg Normal 27.0-34.0 [facility] Comment on above: Performed By: #### 2 [id number] #### [facility] [address] [place] [address] MCHC (RBC) [Mass/Vol] 35.5 g/dL Normal 31.4-36.0 [facility] Comment on above: Performed By: #### 2 [id number] #### [facility] [address] [place] [address] MCV (RBC) [Entitic vol] 85.3 fL Normal 80.0-100.0 [facility] Comment on above: Performed By: #### 2 [id number] #### [facility] [address] [place] [address] Monocytes (Bld) [#/Vol] 0.5 E9/L Normal 0.2-1.0 [facility] Comment on above: Performed By: #### 2 [id number] #### [facility] [address] [place] [address] Neutrophils (Bld) [#/Vol] 3.1 E9/L Normal 2.0-7.5 [facility] Comment on above: Performed By: #### 2 [id number] #### [facility] [address] [place] [address] Neutrophils/100 WBC (Bld) 55.2 % Normal 36.0-75.0 [facility] Comment on above: Performed By: #### 2 [id number] #### [facility] [address] [place] [address] Platelet 166.0 E9/L Normal 150.0-500.0 [facility] Comment on above: Performed By: #### 2 [id number] #### [facility] [address] [place] [address] Platelet mean volume (Bld) [Entitic vol] 8.6 fL Normal 6.4-10.8 [facility] Comment on above: Performed By: #### 2 [id number] #### [facility] [address] [place] [address] RBC (Bld) [#/Vol] 4.5 E12/L Normal 4.3-5.9 [facility] Comment on above: Performed By: #### 2 [id number] #### [facility] [address] [place] [address] WBC corrected for nucl RBC Auto (Bld) [#/Vol] 5.5 E9/L Normal 4.0-11.0 [facility] Comment on above: Performed By: #### 2 [id number] #### [facility] [address] [place] [address] CHEMISTRYOrdered By: Photos to Photos SYSTEM on 12-25-2023 Anion gap [Moles/Vol] 9 mmol/L Normal 6 - 16 mEq/L R emisol Chem Calcium [Mass/Vol] 9.4 mg/dL Normal 8.9 - 11. 1 mg/dL [facility] Chloride [Moles/Vol] 104 mmol/L Normal 101 - 1 11 mmol/L [facility] CO2 [Moles/Vol] 30 mmol/L Normal 21 - 31 mmol/L [facility] Creatinine [Mass/Vol] 1.3 mg/dL Normal 0.5 - 1.3 mg/dL [facility] eGFR 60 mL/min/1.73 m2 Normal >=59mL/min /1 .73 m2 [facility] Glucose [Mass/Vol] 113 mg/dL Normal 55 - 199 mg/dL [facility] Potassium [Moles/Vol] 4.3 mmol/L Normal 3.5 - 5.3 mmol/L [facility] Sodium [Moles/Vol] 139 mmol/L Normal 135 - 145 mmol/L [facility] Urea nitrogen [Mass/Vol] 21 mg/dL Normal 5 - 21 mg/dL [facility] Urea nitrogen/Creatinine [Mass ratio] 16 mg/mg Normal 10 - 20 [facility] COAGULATIONOrdered By: Angela Hernandez on 12-25-2023 aPTT Coag (PPP) [Time] 35.0 s Normal 25.1 - 36.5 second(s) [facility] Comment on above: Interpretive Data: P arameter 15 days - 4 weeks 1 - 5 months 6 - 11 months 1 - 5 years 6 - 10 years 11 - 17 years PTT Mean: 35.4 (27.6-45.6) Mean: 33.5 (24.8-40.7) Mean: 32.4 (25.1-40.7) Mean: 31.6 (24.0-39.2) Mean: 31.6 (26.9-38.7) Mean: 31.0 (24.6-38.4) Pediatric Reference ranges were obtained from a study by Loi Hooper et al. prepared from 1437 samples obtained at 7 different centers using the same coagulation reagent and instrumentation as [facility]. Currently there are no coagulation studies available worldwide for children to 14 days, and no normal ranges. Heparin therapeutic range (represented by Anti-Factor Xa activity of 0.2 - 0.4 U/mL) corresponds to PTT of 56.6 - 109.0 sec. INR Coag (PPP) [Relative time] 1.01 {INR} Invalid Interpretation Code [facility] Comment on above: Interpretive Data: I NR results are specifically intended to assess patients stabilized on long-term Anticoagulation therapy suggested INR s Less Intensive Anticoagulation 2.0 3.0 Conventional Range 3.0 4.5 PT Coag (PPP) [Time] 11.3 s Normal 9.4 - 1 2.5 second(s) [facility] Comment on above: Interpretive Data: 1 5 days - 4 weeks 1 - 5 months 6 -11 months 1 5 years 6 10 years 11 -17 years Mean: 11.2 (9.5 12.6) Mean: 11.0 (9.7 12.8) Mean: 11.0 (9.8 13.0) Mean: 11.3 (9.9 13.4) Mean: 11.7 (10.0 14.6) Mean: 11.8 (10.0 - 14.1) Pediatric Reference ranges were obtained from a study by Loi Hooper et al. prepared from 1437 samples obtained at 7 different centers using the same coagulation reagent and instrumentation as [facility]. Currently there are no coagulation studies available worldwide for children to 14 days, and no normal ranges. HEMATOLOGYOrdered By: SYSTEM SYSTEM on 12-25-2023 Basophils/100 WBC (Bld) 2.0 % Normal 0.0 - 2.0 % [facility] Basophils/Leukocytes Auto (Bld) [Pure # fraction] 0.1 E9/L Normal 0.0 - 0.2 E9/L [facility] Eosinophils (Bld) [#/Vol] 0.3 E9/L Normal 0.0 - 0.5 E9/L [facility] Eosinophils/100 WBC (Bld) 4.8 % Normal 0.0 - 8.0 % [facility] Erythrocyte distribution width (RBC) [Ratio] 14.1 % Normal 10.9 - 14.2 % [facility] Hematocrit (Bld) [Volume fraction] 38.5 % Normal 37.7 - 49.0 % [facility] Hemoglobin (Bld) [Mass/Vol] 13.7 g/dL Normal 13.5 - 17.5 gm/dL [facility] Lymphocytes (Bld) [#/Vol] 1.6 E9/L Normal 1.0 - 4.0 E9/L [facility] Lymphocytes/100 WBC (Bld) 29.7 % Normal 14.0 - 50.0 % [facility] MCH (RBC) [Entitic mass] 30.3 pg Normal 27.0 - 34.0 pg [facility] MCHC (RBC) [Mass/Vol] 35.5 g/dL Normal 31.4 - 36.0 gm/dL [facility] MCV (RBC) [Entitic vol] 85.3 fL Normal 80.0 - 100.0 fL [facility] Monocytes (Bld) [#/Vol] 0.5 E9/L Normal 0.2 - 1.0 E9/L [facility] Monocytes/100 WBC (Bld) 8.3 % Normal 4.0 - 14.0 % [facility] Neutrophils (Bld) [#/Vol] 3.1 E9/L Normal 2.0 - 7.5 E9/L [facility] Neutrophils/100 WBC (Bld) 55.2 % Normal 36.0 - 75.0 % [facility] Platelet 166.0 E9/L Normal 150.0 - 500.0 E9/L [facility] Platelet mean volume (Bld) [Entitic vol] 8.6 fL Normal 6.4 - 10.8 fL [facility] RBC (Bld) [#/Vol] 4.5 E12/L Normal 4.3 - 5.9 E12/L [facility] WBC corrected for nucl RBC Auto (Bld) [#/Vol] 5.5 E9/L Normal 4.0 - 11.0 E9/L [facility] PT & PTTon 12-25-2023 aPTT Coag (PPP) [Time] 35.0 second(s) Normal 25.1-36.5 [facility] Comment on above: Result Comment: Para meter 15 days - 4 weeks 1 - 5 months 6 - 11 months 1 - 5 years 6 - 10 years 11 - 17 years PTT Mean: 35.4 (27.6-45.6) Mean: 33.5 (24.8-40.7) Mean: 32.4 (25.1-40.7) Mean: 31.6 (24.0-39.2) Mean: 31.6 (26.9-38.7) Mean: 31.0 (24.6-38.4) Pediatric Reference ranges were obtained from a study by jasvir Doherty al. prepared from 1437 samples obtained at 7 different centers using the same coagulation reagent and instrumentation as [facility]. Currently there are no coagulation studies available worldwide for children to 14 days, and no normal ranges. Heparin therapeutic range (represented by Anti-Factor Xa activity of 0.2 - 0.4 U/mL) corresponds to PTT of 56.6 - 109.0 sec. Performed By: #### 1 [id number] #### [facility] [address] [place] [address] INR Coag (PPP) [Relative time] 1.01 {INR} Invalid Interpretation Code [facility] Comment on above: Result Comment: INR results are specifically intended to assess patients stabilized on long-term Anticoagulation therapy suggested INR?s ?Less Intensive Anticoagulation? 2.0 ? 3.0 Conventional Range 3.0 ? 4.5 Performed By: #### 1 [id number] #### [facility] [address] [place] [address] PT Coag (PPP) [Time] 11.3 second(s) Normal 9.4-12.5 [facility] Comment on above: Result Comment: 15 d ays - 4 weeks 1 - 5 months 6 -11 months 1 ? 5 years 6 ? 10 years 11 -17 years Mean: 11.2 (9.5 ? 12.6) Mean: 11.0 (9.7 ? 12.8) Mean: 11.0 (9.8 ? 13.0) Mean: 11.3 (9.9 ? 13.4) Mean: 11.7 (10.0 ? 14.6) Mean: 11.8 (10.0 - 14.1) Pediatric Reference ranges were obtained from a study by jasvir Doherty al. prepared from 1437 samples obtained at 7 different centers using the same coagulation reagent and instrumentation as [facility]. Currently there are no coagulation studies available worldwide for children to 14 days, and no normal ranges. Performed By: #### 1 [id number] #### [facility] [address] [place] [address] UA with Cult Rflxon 12-25-19 24 Bilirubin Ql (U) Negative Normal Negative [facility] Comment on above: Performed By: #### 4 [id number] #### [facility] [address] [place] [address] Clarity (U) Clear Normal Clear [facility] Comment on above: Performed By: #### 4 [id number] #### [facility] [address] [place] [address] Color (U) Light-Yellow Normal Yellow [facility] Comment on above: Result Comment: Micr oscopic readings are only performed on those samples that meet specific criteria set forth by [facility]. Performed By: #### 4 [id number] #### [facility] [address] [place] [address] Glucose Ql (U) Negative Normal Negative [facility] Comment on above: Performed By: #### 4 [id number] #### [facility] [address] [place] [address] Hemoglobin Auto test strip (U) [Mass/Vol] Negative Normal Negative [facility] Comment on above: Performed By: #### 4 [id number] #### [facility] [address] [place] [address] Ketones Auto test strip Ql (U) Negative Normal Negative [facility] Comment on above: Performed By: #### 4 [id number] #### [facility] [address] [place] [address] Leukocyte esterase Auto test strip Ql (U) Negative Normal Negative [facility] Comment on above: Performed By: #### 4 [id number] #### [facility] [address] [place] [address] Nitrite Auto test strip Ql (U) Negative Normal Negative [facility] Comment on above: Performed By: #### 4 [id number] #### [facility] [address] [place] [address] pH (U) 5.5 [pH] Invalid Interpretation Code 5.0-9.0 [facility] Comment on above: Performed By: #### 4 [id number] #### [facility] [address] [place] [address] Protein Ql (U) Negative Normal Negative [facility] Comment on above: Performed By: #### 4 [id number] #### [facility] [address] [place] [address] Specific gravity (U) [Rel density] 1.012 Invalid Interpretation Code 1.005-1.030 [facility] Comment on above: Performed By: #### 4 [id number] #### [facility] [address] [place] [address] Urobilinogen (U) [Mass/Vol] Negative Normal Negative [facility] Comment on above: Performed By: #### 4 [id number] #### [facility] [address] [place] [id number] Type of Urine collection method Clean Catch Normal [facility] Comment on above: Performed By: #### 4 [id number] #### [facility] [address] [place] [phone] URINALYSISOrdered By: SYSTEM SYSTEM on 12-25-2023 Bilirubin Ql (U) Negative Normal Negativemg/ d L [facility] UA Auto SS Clarity (U) Clear (12/25/23 7:53 AM) Normal Clear [facility] UA Auto SS Color (U) Light-Yellow 1 (12/25/23 7:53 AM) Normal Yellow [facility] UA Auto SS Comment on above: Interpretive Data: M icroscopic readings are only performed on those samples that meet specific criteria set forth by [facility]. Glucose Ql (U) Negative Normal Negativemg/d L [facility] UA Auto SS Hemoglobin Auto test strip (U) [Mass/Vol] Negative Normal Negativemg/d L [facility] UA Auto SS Ketones Auto test strip Ql (U) Negative Normal Negativemg/d L [facility] UA Auto SS Leukocyte esterase Auto test strip Ql (U) Negative Normal NegativeLeu/ uL [facility] UA Auto SS Nitrite Auto test strip Ql (U) Negative Normal Negativemg/d L [facility] UA Auto SS pH (U) 5.5 *NA* (12/25/23 7:53 AM) Invalid Interpretation Code 5.0 - 9.0 [facility] UA Auto SS Protein Ql (U) Negative Normal Negativemg/d L [facility] UA Auto SS Specific gravity (U) [Rel density] 1.012 *NA* (12/25/23 7:53 AM) Invalid Interpretation Code 1.005 - 1.030 [facility] UA Auto SS Urobilinogen (U) [Mass/Vol] Negative Normal Negativemg/d L [facility] UA Auto SS URINALYSISOrdered By: Genevieve Quintero on 12-25-2023 UA Spec Desc Clean Catch (12/25/23 7:53 AM) Normal [facility] UA Auto SS XR Chest 2 Viewson XR Chest 2 Views Exam Date/Time: 12/25/2023 08:14 EDT Reason for Exam: P.A.T. Report IMPRESSION: NO EVIDENCE OF ACTIVE CHEST DISEASE. CLINICAL HISTORY: P.A.T.. COMMENT: The heart is normal in size. The mediastinum is unremarkable. The lungs appear clear. No infiltration nor pleural effusion is evident. Ordering Provider: Miguel Angel Guerra FINAL REPORT Dictated: 12/25/2023 1:51 pm Gagan Arriaga M.D. Signed (Electronic Signature): 12/25/2023 1:51 pm Signed by: Gagan Arriaga M.D. Transcribed by: REJI Technologist: TALAT Technical Comments Radiation Dose: Ka,r in mGy = na DAP = na Normal [facility] eGFRon 12-25-2023 eGFR 60 mL/min/1.73 m2 Normal >=59 [facility] Comment on above: Order Comment: Order added by Discern Expert. Performed By: #### 1 [id number] #### [facility] [address] [place] [address] Reminderson 12-06-2023 Reminders - From: Carissa Hammonds To: EU [...] PSA, possible surgery discussed for prostate size. Pt seen KML 11/29/23. Scheduled for TURP Normal [facility] Screenson 12-01-2023 Screens [id number] #1.00TIFF Normal [facility] Screens [id number] #1.00TIFF [facility] Consent for Procedure/Surger yon 11-30-2023 Consent for Procedure/Surgery [id number]# 1.00TIFF Normal [facility] Patient Educationon 11-29-19 24 Patient Education Urology Transurethral Resection of the Prostate, Care After The following information offers guidance on how to care for yourself after your procedure. Your health care provider may also give you more specific instructions. If you have problems or questions, contact your health care provider. What can I expect after the procedure? After the procedure, it is common to have: ? Mild pain in your lower abdomen. ? Soreness or mild discomfort in your penis or when you urinate. This is from having the catheter inserted during the procedure. ? A sudden urge to urinate (urgency). ? A need to urinate often. ? A small amount of blood in your urine. You may notice some small blood clots in your urine. These are normal. Follow these instructions at home: Medicines ? Take pjuy-bqn-hndoxtu and prescription medicines only as told by your health care provider. ? If you were prescribed an antibiotic medicine, take it as told by your health care provider. Do not stop taking the antibiotic even if you start to feel better. Activity ? Rest as told by your health care provider. ? Avoid sitting for a long time without moving. Get up to take short walks every 1?2 hours. This is important to improve blood flow and breathing. Ask for help if you feel weak or unsteady. You may increase your physical activity gradually as you start to feel better. ? Do not drive or operate machinery until your health care provider says that it is safe. ? Do not ride in a car for long periods of time, or as told by your health care provider. ? Avoid intense physical activity for as long as told by your health care provider. ? Do not lift anything that is heavier than 10 lb (4.5 kg), or the limit that you are told, until your health care provider says that it is safe. ? Do not have sex until your health care provider approves. ? Return to your normal activities as told by your health care provider. Ask your health care provider what activities are safe for you. Preventing constipation You may need to take these actions to prevent or treat constipation: ? Drink enough fluid to keep your urine pale yellow. ? Take ldms-zbn-ivgymej or prescription medicines. ? Eat foods that are high in fiber, such as beans, whole grains, and fresh fruits and vegetables. ? Limit foods that are high in fat and processed sugars, such as fried or sweet foods. General instructions ? Do not strain when you have a bowel movement. Straining may lead to bleeding from the prostate. This may cause blood clots and trouble urinating. ? Do not use any products that contain nicotine or tobacco. These products include cigarettes, chewing tobacco, and vaping devices, such as e-cigarettes. If you need help quitting, ask your health care provider. ? If you go home with a tube draining your urine (urinary catheter), care for the catheter as told by your health care provider. ? Wear compression stockings as told by your health care provider. These stockings help to prevent blood clots and reduce swelling in your legs. ? Keep all follow-up visits. This is important. Contact a health care provider if: ? You have signs of infection, such as: ? Fever or chills. ? Urine that smells very bad. ? Swelling around your urethra that is getting worse. ? Swelling in your penis or testicles. ? You have difficulty urinating. ? You have pain that gets worse or does not improve with medicine. ? You have blood in your urine that does not go away after 1 week of resting and drinking more fluids. ? You have trouble having a bowel movement. ? You have trouble having or keeping an erection. ? No semen comes out during orgasm (dry ejaculation). ? You have a urinary catheter in place, and you have: ? Spasms or pain. ? Problems with your catheter or your catheter is blocked. Get help right away if: ? You are unable to urinate. ? You are having more blood clots in your urine instead of fewer. ? You have: ? Large blood clots. ? A lot of blood in your urine. ? Pain in your back or lower abdomen. ? You have difficulty breathing or shortness of breath. ? You develop swelling or pain in your leg. These symptoms may be an emergency. Get help right away. Call 911. ? Do not wait to see if the symptoms will go away. ? Do not drive yourself to the hospital. Summary ? After the procedure, it is common to have a small amount of blood in your urine. ? Follow restrictions about lifting and sexual activity as told by your health care provider. Ask what activities are safe for you. ? Keep all follow-up visits. This is important. This information is not intended to replace advice given to you by your health care provider. Make sure you discuss any questions you have with your health care provider. Document Revised: 03/08/2022 Document Reviewed: 03/08/2022 [employer] Patient Education ? 2022 [employer] Transurethral Resection o (more content not included)... Normal [facility] Urology Office/Clinic Noteon 11-29-2023 Urology Office/Clinic Note Chief Complaint 4m PVR HPI Staff 4 m DX: Elevated PSA, BPH, Enlarged Lymph Node & ED *Alfuzosin 10mg QD therapy. S/P Urocuff 06/30/23 S/P Cysto 07/31/23 (due to gross hematuria after Urocuff) NEG Cytology 06/30/23 CTU 07/05/23 *4.4cm Simple Cyst on Lt Kidney. Enlarged Prostate that protrudes into base of bladder. Borderline enlarged pelvic lymph nodes bilaterally. CMP 11/24/23 *BUN 22.0 Crea 1.40 eGFR 51 PSA 11/24/23- 6.70 TURP recommended at time of Cysto in Jul. Pt would like more info on procedure. Etc. SE, recovery time Still getting up 2x at night. Slow weak stream. Does not feel empty after voiding. PVR 127ml Denies pain/burning and visible blood in urine History of Present Illness Tests reviewed: reviewed UA, PSA I have reviewed the previous health record [...] & Measurements HR: 68(Peripheral) RR: 16 BP: 163/74 HT: 71 in HT: 180 cm WT: 108 kg WT: 237.6 lb BMI: 33.33 General Appearance: alert, no distress, well nourished, well developed male. 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 BPH with urinary obstruction (N40.1: Benign prostatic hyperplasia with lower urinary tract symptoms) 03/2023- prostate volume 92 ml S/p Urocuff 06/30/23 - PVR 208 cc (prior 91cc), obstructed on nomogram. Smaller functional bladder capacity, abdominal straining at the end of stream. Qmax 5.5, Pdet 120 cm H2O. S/p Cysto 07/31/23 - Obstructed prostate with severe trilobar hypertrophy with large intravesical median lobe. IPSS 13 (17). Taking Alfuzosin 10mg ER qd. Tried Tamsulosin in the past, did not help as much. PVR 127 (91) cc. Still has weak stream. Discussed TURP vs simple prostatectomy or start Finasteride at time of cysto. Declined Finasteride due to possible SEs. Pt interested in TURP. Further discussed risks/benefits of procedure today. Pt would like to proceed. -Will schedule bipolar TURP. Pt aware may be staged due to large gland. The procedural risks, benefits, details, and treatment alternatives have been discussed with the patient. These include bleeding, infection, need for blood transfusion, continued urinary difficulties, urinary leakage which could be permanent, need for catheter, retrograde ejaculation, scar tissue formation in the urinary channel or area of prostate shaving, erection problems, blood clot formation in the lower extremities which could travel to the lungs, among others. A secondary operation could also be required. Full informed consent has been obtained. Will order General anesthesia. -Cont Alfuzosin. Will consider stopping after procedure. 2. Elevated PSA (R97.20: Elevated prostate specific antigen [PSA]) PSA 01/2017 - 3.93 01/2018 - 3.84 02/04/19 - 4.27 10/24/19 - 6.60 03/05/20 - 5.32 10/08/20 - 5.87 10/12/21 - 5.5 & 24.7% 12/12/22 - 6.56 04/12/23 - 8.21, PSAD 0.09 11/24/23- 6.70 Prostate MRI 04/03/23 - suggestive of prior prostatitis. Enlarged R pelvic sidewall and L external iliac lymph nodes, largest measuring 12mm in short axis. Nonspecific finding. 92 ml volume Select MDX 04/13/23 - low risk likelihood of prostate cancer upon bx. The PCPT (prostate cancer prevention trial) risk [...] - neg. Chronic inflammation in 1 core. PSA has decreased from prior. -Will cont to monitor PSA annually 3. ED (erectile dysfunction) (N52.9: Male erectile dysfunction, unspecified) BUD 3 (3). Continues to decline tx. 4. Enlarged lymph node (R59.9: Enlarged lymph nodes, unspecified) Prostate MRI 04/03/23 - prior prostatitis. Enlarged R pelvic sidewall and L external iliac lymph nodes, largest measuring 12mm in short axis. Nonspecific finding. 92 ml volume Negative prostate biopsies, See #2 Elected to proceed with continued surveillance. CT AP w/wo con 07/05/23 [facility] - A few small nonspecific pelvic sidewall lymph nodes. A pelvic jameel (more content not included)... Normal [facility] Comment on above: Result Comment: Elec tronically Signed By: Daryl HAMILTON, Meghan Tucker\.br\Date and Time Signed: 11/29/23 16:11 EDT\.br\Electronically Co-Signed By: Carissa Hammonds\.br\Date and Time Co-Signed: 11/29/23 11:34 EDT Basophils Auto (Bld) [#/Vol] on 11-24-2023 Basophils (Bld) [#/Vol] 0.1 10 3/uL 0.0-0.1 [facility] Basophils/100 WBC Auto (Bld) on 11-24-2023 Basophils/100 WBC (Bld) 1.4 % 0.2-2.0 [facility] Cholesterol in LDL Calc [Mas s/Vol]on 11-24-2023 Cholesterol in LDL [Mass/Vol] 135.0 mg/dL [facility] Comment on above: <100 mg/dl [id number] 0-129 mg/dl NEAR OR ABOVE [id number] mg/dl BORDERLINE [id number] mg/dl HIGH>190 mg/dl VERY HIGH Cholesterol in VLDL Calc [Ma ss/Vol]on 11-24-2023 Cholesterol in VLDL [Mass/Vol] 19.2 mg/dL [facility] Eosinophils/100 WBC Auto (Bl d)on 11-24-2023 Eosinophils/100 WBC (Bld) 4.8 % 0.9-7.0 [facility] Erythrocyte distribution wid th Auto (RBC) [Ratio]on 11-24-2023 Erythrocyte distribution width (RBC) [Ratio] 13.2 % 11.0-15.0 [facility] Estimated glomerular filtrat ion rate (GFR) non- Americanon 11-24-2023 GFR/1.73 sq M.predicted among non-blacks MDRD (S/P/Bld) [Vol rate/Area] 51 mL/min/{1.73_m2} >=60 [facility] Globulin Calc (S) [Mass/Vol] on 11-24-2023 Globulin (S) [Mass/Vol] 3.5 g/dL [facility] Hematocrit Auto (Bld) [Volum e fraction]on 11-24-2023 Hematocrit (Bld) [Volume fraction] 39.3 % 42.0-54.0 [facility] Hemoglobin [Mass/volume] in Bloodon 11-24-2023 Hemoglobin (Bld) [Mass/Vol] 12.9 g/dL 14.0-18.0 [facility] Laboratory - Chemistry and C hemistry - challengeon 11-24-2023 Albumin [Mass/Vol] 3.8 g/dL 3.4-5.0 [facility] ALP [Catalytic activity/Vol] 72 U/L 46-116 [facility] ALT [Catalytic activity/Vol] 25 U/L 16-63 [facility] AST [Catalytic activity/Vol] 17 U/L 15-37 [facility] Bilirubin [Mass/Vol] 0.9 mg/dL 0.2-1.0 [facility] Calcium [Mass/Vol] 8.9 mg/dL 8.5-10.1 [facility] Chloride [Moles/Vol] 105 mmol/L 98-107 [facility] Cholesterol [Mass/Vol] 188 mg/dL <=200 [facility] Cholesterol in HDL [Mass/Vol] 34 mg/dL 40-60 [facility] Comment on above: > or =60 mg/dl - LOW CARDIOVASCULAR RISK<40 mg/dl - HIGH CARDIOVASCULAR RISK CO2 [Moles/Vol] 28.1 mmol/L 21.0-32.0 [facility] Creatinine [Mass/Vol] 1.40 mg/dL 0.70-1.30 [facility] GFR/1.73 sq M.predicted MDRD (S/P/Bld) [Vol rate/Area] mL/min/{1.73_m2} >=60 [facility] Glucose [Mass/Vol] 114 mg/dL 74-106 [facility] Potassium [Moles/Vol] 4.2 mmol/L 3.5-5.1 [facility] Protein [Mass/Vol] 7.3 g/dL 6.4-8.2 [facility] Sodium [Moles/Vol] 142 mmol/L 136-145 [facility] Triglyceride [Mass/Vol] 96 mg/dL <=150 [facility] Urea nitrogen [Mass/Vol] 22.0 mg/dL 7.0-18.0 [facility] Urea nitrogen/Creatinine [Mass ratio] 15.7 mg/mg [facility] Laboratory - Hematology and Cell countson 11-24-2023 Immature granulocytes/100 WBC (Bld) 0.2 % 0.0-0.5 [facility] Leukocytes [#/volume] correc rina for nucleated erythrocytes in Blood by Automated counon 11-24-2023 WBC corrected for nucl RBC Auto (Bld) [#/Vol] 5.0 10 3/uL 4.0-11.0 [facility] Lymphocytes Auto (Bld) [#/Vo l]on 11-24-2023 Lymphocytes (Bld) [#/Vol] 1.6 10 3/uL 1.2-3.8 [facility] Lymphocytes/100 WBC Auto (Bl d)on 11-24-2023 Lymphocytes/100 WBC (Bld) 31.0 % 20.5-60.0 [facility] MCH Auto (RBC) [Entitic mass ]on 11-24-2023 MCH (RBC) [Entitic mass] 28.4 pg 25.9-34.0 [facility] MCHC Auto (RBC) [Mass/Vol]on 11-24-2023 MCHC (RBC) [Mass/Vol] 32.8 g/dL 29.9-35.2 [facility] MCV Auto (RBC) [Entitic vol] on 11-24-2023 MCV (RBC) [Entitic vol] 86.6 fL 80.0-94.0 [facility] Monocytes Auto (Bld) [#/Vol] on 11-24-2023 Monocytes (Bld) [#/Vol] 0.4 10 3/uL 0.3-0.8 [facility] Monocytes/100 WBC Auto (Bld) on 11-24-2023 Monocytes/100 WBC (Bld) 8.1 % 1.7-12.0 [facility] Neutrophils Auto (Bld) [#/Vo l]on 11-24-2023 Neutrophils (Bld) [#/Vol] 2.8 10 3/uL 1.4-6.5 [facility] Neutrophils/100 WBC Auto (Bl d)on 11-24-2023 Neutrophils/100 WBC (Bld) 54.5 % 43.0-75.0 [facility] No Panel Informationon 11-23 Eosinophils # (Auto) 0.2 10 3/uL 0.0-0.7 [facility] Immature Granulocyte # (Auto) 0.01 10 3/uL 0.00-0.03 [facility] Prostate Specific Antigen Screen 6.70 ng/mL <=4.00 [facility] Platelet mean volume Auto (B ld) [Entitic vol]on 11-24-2023 Platelet mean volume (Bld) [Entitic vol] 10.3 fL 9.5-13.5 [facility] Platelets Auto (Bld) [#/Vol] on 11-24-2023 Platelets (Bld) [#/Vol] 177 10 3/uL 150-450 [facility] RBC Auto (Bld) [#/Vol]on RBC (Bld) [#/Vol] 4.54 10 6/uL 4.70-6.10 [facility] Serum or plasma albumin/glob ulin mass ratioon 11-24-2023 Albumin/Globulin [Mass ratio] 1.1 {ratio} [facility] Serum or plasma anion gap de terminationon 11-24-2023 Anion gap [Moles/Vol] 13.1 mmol/L [facility] Serum or plasma total choles terol/high density lipoprotein (HDL) cholesterol mass juve 11-24-2023 Cholesterol.total/Cho lesterol in HDL [Mass ratio] 5.5 {ratio} [facility] Comment on above: 3.3 - 4.4 LOW RISK4. 4 - 7.1 AVERAGE RISK7.1 - 11.0 MODERATE RISK>11.0 HIGH RISK Consent for Procedure/Surger yon 07-31-2023 Consent for Procedure/Surgery [id number] 6#1.00TIFF Normal [facility] Consent for Treatmenton Consent for Treatment [id number] #1.00TIFF Normal [facility] Inpatient Patient Summaryon 07-31-2023 Inpatient Patient Summary [place] [id number] Clinical Summary Person Information Name: MICHAEL KILLIAN Age: 68 Years : 1955 Sex: Male PCP: GIO JASSO DO Marital Status: Race: White Ethnicity: Non- or Language: Slovenian Visit Id: Visit Reason: GROSS HEMATURIA Speciality: Acuity: Enc Type: Outpatient Med Service: Surgery Arrival: 07/31/2023 07:51:46 Discharge: Dispo Type: Address: [address] [place] [phone] Provider Notes: Diagnosis: BPH with urinary obstruction; [...] MD Follow up: With: Address: When: Meghan Puckett [address] [place], [place] [address], [place] [phone] Business (1) Comments: Office to schedule follow up in 3-4 months or call sooner for procedure (pt knows will be done by partner/referred out if during leave) Patient Education Information: Robot-Assisted Laparoscopic Radical Prostatectomy; Transurethral Resection of the Prostate; EU - Cystoscopy Discharge Instructions (CUSTOM) [facility] IntraOperative Documentson 0 07-31-2023 IntraOperative Documents [id number] 6#1.00TIFF [facility] Main OR Intraoperative Recor don 07-31-2023 Main OR Intraoperative Record IntraOp Document Type [facility] Summary Primary Physician: Meghan Brito MD Finalized Date/Time: 07/31/23 09:01:26 Pt. Name: MICHAEL KILLIAN/Sex: 1955 Male Med Rec #: [id number] Physician: Meghan Brito MD Financial #: [id number] Pt. Type: O Room/Bed: / Admit/Disch: 07/31/23 07:51:46 - Institution: Case Times [facility] Entry 1 Patient Times In Room 07/31/23 08:49:00 Out Room 07/31/23 09:07:00 Procedure Times Start 07/31/23 08:56:00 Stop 07/31/23 09:02:00 Anesthesia Times Last Modified By: JAY Bird RN, Ruthann 07/31/23 09:00:53 Case Attendance [facility] Entry 1 Entry 2 Entry 3 Case Attendee Daryl HAMILTON, Meghan Bird RN, CNOR, Bette HILL, Rachana Felton Role Performed Surgeon - Primary Wash Plant Operator - Primary Scrub - Primary Time In 07/31/23 08:49:00 07/31/23 08:49:00 07/31/23 08:49:00 Time Out 07/31/23 09:07:00 07/31/23 09:07:00 07/31/23 09:07:00 Procedure CYSTOSCOPY LOCAL(.) CYSTOSCOPY LOCAL(.) CYSTOSCOPY LOCAL(.) Comments Last Modified By: DARSHANA Bird RNOR, JAY Bird RN, JAY Bird RN, Ruthann 07/31/23 Purnima 07/31/23 Purnima 07/31/23 09:00:54 09:00:54 09:00:54 Surgical Procedures [facility] Entry 1 Procedure Description Procedure CYSTOSCOPY LOCAL Modifiers . Surgeon Description CYSTO Primary Procedure Yes Primary Surgeon Daryl HAMILTON, Meghan Tucker Start 07/31/23 08:56:00 Stop 07/31/23 09:02:00 Anesthesia Type Local Surgical Service Urology Wound Class 2 - Clean-Contaminated Last Modified By: JAY Bird RN, Ruthann 07/31/23 09:00:56 General Case Data [facility] Pre-Care Text: Classifies surgical wound, implements aseptic technique, initiates traffic control Entry 1 Case Information OR URO 1 FT Case Level None Wound Class 2 - Clean-Contaminated Specialty Urology Preop Diagnosis GROSS HEMATURIA Postop Same As Preop No Postop Diagnosis enlarged prostate Outcomes Met? Yes Last Modified By: JAY Bird RN, Ruthann 07/31/23 09:00:42 Post-Care Text: The patient [...] JAY Bird RN, Applicable) Bette Felton CST, Kimberly A Time Out Complete 07/31/23 08:49:00 Allergies Reviewed? [...] JAY Bird RN, Ruthann 07/31/23 09:01 Normal [facility] Main OR Preoperative Recordo n 07-31-2023 Main OR Preoperative Record Holding Area Document Type [facility] Summary Primary Physician: Meghan Brito MD Finalized Date/Time: 07/31/23 08:50:15 Pt. Name: JANIE KILLIANJAVIER Bush D.O.B./Sex: 1955 Male Med Rec #: [id number] Physician: Meghan Brito MD Financial #: [id number] Pt. Type: O Room/Bed: / Admit/Disch: 07/31/23 [...] JAY Bird RN, Ruthann 07/31/23 08:50 Normal [facility] Operative Reporton Operative Report Patient: MICHAEL KILLIAN Age: 68 years Sex: Male : 1955 Associated Diagnoses: None Author: Meghan Brito MD Procedure Operative Information Details: Date/ Time: 07/31/2023 09:06:00. Pre-Op Dx: BPH with urinary obstruction ([id number] N40.1, Discharge, Medical), Feeling of incomplete bladder emptying ([id number] R39.14, Discharge, Medical), Gross hematuria ([id number] R31.0, Discharge, Medical). Post-Op Dx: Same. Anesthesia [...] BPH workup and gross hematuria. . Normal [facility] Comment on above: Result Comment: Elec tronically Signed By: Meghan Brito MD\.br\Date and Time Signed: 07/31/23 09:10 EST Outpatient Surgery Discharge Instructionon 07-31-2023 Outpatient Surgery Discharge Instruction [place] [id number] Patient Discharge Instructions PERSON INFORMATION Name: MICHAEL KILLIAN Date of : 1955 Current Date: 07/31/2023 09:05:55 PHYSICIANS Admitting Physician: Meghan Brito MD Comment: Discharge Diagnosis: BPH with urinary obstruction; [...] 911 Follow up: With: Address: When: Meghan Puck[address], [place] [address], [address] [phone] [facility] (1) Comments: Office to schedule [...] including vitamins, herbs, eye drops, creams, and qoha-eap-gpnqucp medicines. ? Any problems you or family [...] tells you to take them. ? Taking pair-exh-argwxfy medicines, vitamins, herbs, and supplements. ? Follow your health care provider's instructions about cleaning out your bowels. Surgery s (more content not included)... Normal [facility] Progress Note-Physicianon Progress Note-Physician Patient: MICHAEL KILLIAN [...] Daily, # 90 tab(s), Refills(s) 3, Pharmacy: [facility], 180, cm, 06/16/23 9:50:00 EST, Height/Length Dosing, 108.2, kg, 06/16/23 9:50:00 EST, Weight Dosing Documented Medications Documented carvedilol 6.25 mg Tab: 6.25 mg = 1 tab(s), Oral, BID, # 60 tab(s), Refills(s) 0 lisinopril 40 mg Tab: mg tab(s), Oral, Daily, Refills(s) 0 Impression and Plan Assessment and Plan: Diagnosis: BPH with urinary obstruction (RIE81-OX N40.1, Discharge, Medical), Pelvic lymphadenopathy (ZJP85-EI R59.0, Working, Medical), Chronic prostatitis (PYL07-DI N41.1, Discharge, Medical), Feeling of incomplete bladder emptying (JEZ56-WK R39.14, Discharge, Medical), Gross hematuria (XND07-ZH R31.0, Discharge, Medical). Assessment and Plan: Diagnosis: BPH with urinary obstruction (OFN01-CN N40.1, Discharge, Medical), Chronic prostatitis (XBA86-TN N41.1, Discharge, Medical), Feeling of incomplete bladder emptying (DXM58-LK R39.14, Discharge, Medical), Gross hematuria (IDZ02-GB R31.0, Discharge, Medical), Pelvic lymphadenopathy (JHF35-WO R59.0, Working, Medical). 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 Gross hematuria - after [place] CTU 07/05/23 at [facility] - neg for upper tract filling [...] 4 to 5 months with PVR Normal [facility] Comment on above: Result Comment: Elec tronically Signed By: Daryl HAMILTON, Meghan Oshea.br\Date and Time Signed: 07/31/23 12:31 EST RAD - CT Reporton 07-10-2023 RAD - CT Report [id number]# 1.00TIFF Normal [facility] Lab Reportson 07-07-2023 Lab Reports [id number]# 1.00TIFF Normal [facility] Lab Reports [id number] #1.00TIFF Normal [facility] Urine Cytology ([facility])on 0 07-05-2023 Urine Cytology Diagnosis Info Invalid Interpretation Code [facility] Comment on above: Result Comment: A:Ur ine,Urine:Voided Interpretation - MicroScopic Description - Adequacy - Gross Description Site ID:A color Dark [place] fixative Alcohol Specimen designated Urine received in alcohol preservative and labeled with the patient?s name, consists of 110ml cloudy dark peach fluid. Electronically signed by : on: 07/05/2023 13:00:05 Performed By: #### 1 [id number] ####[facility] [address] [place] [address] Urine Cytology ( Labs)on 06-30-2023 Method of Extraction Voided Normal [facility] Comment on above: Performed By: #### 1 [id number] ####[facility] [address] [place] [address] Number of Jars 1 Invalid Interpretation Code [facility] Comment on above: Performed By: #### 1 [id number] ####[facility] [address] [place] [address] Specimen Urine Normal [facility] Comment on above: Performed By: #### 1 [id number] ####[facility] [address] [place] [address] Type of Service Technical Only Normal [facility] [place] [facility] Comment on above: Performed By: #### 1 [id number] ####[facility] [address] [place] [address] IntraOperative Documentson 1 08-23-2022 IntraOperative Documents [id number] 0#1.00TIFF Normal [facility] Pathology Noteon 06-22-2023 Pathology Note [id number] #1.00TIFF Normal [facility] Screenson 06-20-2023 Screens [id number] #1.00TIFF Normal [facility] Screens [id number] #1.00TIFF Normal [facility] Ambulatory Visit Summaryon 1 08-17-2022 Ambulatory Visit Summary MICHAEL KILLIAN :1955 Visit Date:06/16/2023 Ambulatory Visit Instructions Your Diagnosis Elevated PSA BPH with urinary obstruction ED (erectile dysfunction) Former smoker Enlarged lymph node Tests Performed Urnls Dip Stick Auto w/o Microscopy POC [address] CT Pelvis w/o Contrast -- Results Pending [...] 9:15 AM EST Where: [facility] Patient Educationon 06-16-20 Patient Education Oncology Prostate Cancer Screening Prostate [...] Where to find more information ? The [place] [employer]: www.cancer.org ? [place] [employer]: www.auanet.org Contact a health care [...] adds flu (more content not included)... Normal [facility] Urology Office/Clinic Noteon 06-16-2023 Urology Office/Clinic Note Chief Complaint S/P to MRI proste and review path HPI Staff S/p to MR prostate wo/ w [place] [facility] [place]23 Review path report done 06/06/23 [...] cancer upon bx. 95% likelihood of detecting Abingdon scores >=7 cancer. The PCPT (prostate cancer [...] consent jane (more content not included)... Normal [facility] Comment on above: Result Comment: Elec tronically Signed By: Meghan Brito MD\.br\Date and Time Signed: 06/16/23 15:18 EST\.br\Electronically Co-Signed By: Carissa Hammonds\.br\Date and Time Co-Signed: 06/16/23 11:02 EST Main OR Intraoperative Recor don 06-09-2023 Main OR Intraoperative Record IntraOp Document Type FT Summary Primary Physician: Meghan Brito MD Finalized Date/Time: 06/09/23 09:45:57 Pt. Name: DANIEL MICHAEL Hinson./Sex: 1955 Male Med Rec #: [id number] Physician: Meghan Brito MD Financial #: [id number] Pt. Type: A Room/Bed: [place] [address] Admit/Disch: 06/06/23 13:31:36 - 06/06/23 18:00:13 Institution: [...] Performed Surgeon - Primary Scrub - Primary Wash Plant Operator - Primary Time In 06/06/23 16:38:00 [...] (If Applicable) PreOp Antibiotic No Time Out Meghan Brito MD, Given Participants Niall Watson Letrondo, Alfons Ii [...] and tissue Entry 1 Skin Integrity Intact, Destrehan, Warm, and Skin Abnormality No Dry Outcomes [...] Board Right (more content not included)... Normal [facility] Discharge Instructionson Discharge Instructions [id number] 9#1.00TIFF Normal [facility] IntraOperative Documentson 1 08-09-2022 IntraOperative Documents [id number] 5#1.00TIFF Normal [facility] IntraOperative Documents [id number] 9#1.00TIFF Normal [facility] IntraOperative Documents [id number] 9#1.00TIFF [facility] Preoperative Documentson Preoperative Documents [id number] 5#1.00TIFF [facility] Consent for Procedure/Surger yon 06-06-2023 Consent for Procedure/Surgery [id number] 58#1.00TIFF [facility] Consent for Treatmenton 05-26 Consent for Treatment [id number] #1.00TIFF [facility] Discharge Instructionson Discharge Instructions MICHAEL KILLIAN [...] Elec tronically Signed By: Alcides ENCISO, Dori N\.br\Date and Time Signed: 12/12/23 17:16 EST H&P Updateon 06-06-2023 H&P Update [id number] 9#1.00TIFF Normal [facility] Inpatient Patient Summaryon 06-06-2023 Inpatient Patient Summary [place] [address] [facility] Clinical Discharge Instructions PERSON INFORMATION Name: MICHAEL [...] Location Start Finish State URO Office Visit [facility] [place] 06/14/2023 10:30 AM 06/14/2023 10:45 AM Confirmed [...] Tab) By Mouth every day. Comment: Normal [facility] Operative Reporton Operative Report Patient: MICHAEL KILLIAN [...] . Impression and Plan Diagnosis Elevated PSA (XNZ65-TB R97.20, Discharge, Medical). Diagnosis Elevated PSA (QAM22-AX R97.20, Discharge, Medical). Normal [facility] Comment on above: Result Comment: Elec tronically Signed By: Meghan Brito MD\.br\Date and Time Signed: 06/06/23 16:58 EST Outpatient Surgery Discharge Instructionon 06-06-2023 Outpatient Surgery Discharge Instruction [place] [id number] Patient Discharge Instructions PERSON INFORMATION Name: MICHAEL [...] THE NEAREST EMERGENCY ROOM OR CALL 911 IDANIEL DENNIS J, have received the attached patient education materials/instructio ns and have verbalized understanding: May we do a follow up call? Yes No I was present when discharge instructions were given Patient Signature Date Clinican/Nurse Signature Date Follow up: With: Address: When: Meghan Brito Comments: Keep scheduled appointment Type Location Start [place]ish [place] Office Visit [facility] [place] 06/14/2023 10:30 AM 06/14/2023 10:45 AM Confirmed Pharmacy Information: Other: [facility] You may receive a survey from [facility] [employer] asking you to rate your care experience. Your feedback is important and will help us understand what we do well and how we can improve the quality of care we provide to you, your loved ones and our community. It?s an honor to serve you. Thank you for choosing [facility] HERE ARE THE MEDICATION CHANGES [...] near your rectum, especially while sitting. ? Destrehan-colored urine due to small amounts of blood [...] difficulty urinating or catheter-related problems Medication Leaflets: [facility] Patient Education - Texton 1 08-07-2022 Patient Education - Text Transperineal?Biopsy of the Prostate Discharge Instructions After the procedure, it is common to have: ? Pain and discomfort near your rectum, especially while sitting. ? Destrehan-colored urine due to small amounts of blood [...] you have difficulty urinating or catheter-related problems [facility] Outside Recordson 05-15-2023 Outside Records [id number] 5#1.00[facility] Ambulatory Visit Summaryon 1 07-12-2022 Ambulatory Visit Summary MICHAEL KILLIAN :1955 Visit Date:05/10/2023 Ambulatory Visit Instructions Your Diagnosis Elevated PSA BPH with urinary obstruction Tests Performed Urnls Dip Stick Auto w/o Microscopy POC 66512 Your Care Team Attending Physician - Meghan [...] Appointments Monday 2:30 PM EST With: Where: [facility] Monday 10:30 AM EST With: Meghan Brito MD Where: [facility] Patient Educationon 05-10-20 Patient Education [...] Where to find more information ? The [place] Cancer [employer]: www.cancer.org ? [place] [employer] Association: www.auanet.org Contact a health care [...] adds flu (more content not included)... Normal [facility] [place] 05-10-2023 Screens [id number] 1#1.00TIFF Normal [facility] Screens [id number] 3#1.00TIFF Normal [facility] Urology Office/Clinic Noteon 05-10-2023 Urology Office/Clinic Note [...] cancer upon bx. 95% likelihood of detecting Abingdon scores >=7 cancer. Today I reviewed the [...] the office notified. 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 2. BPH [...] -Timed voids (more content not included)... Normal [facility] Comment on above: Result Comment: Elec tronically Signed By: Meghan Brito MD\.br\Date and Time Signed: 05/10/23 11:31 EST\.br\Electronically Co-Signed By: Nevaeh Padilla\.br\Date and Time Co-Signed: 05/10/23 11:22 EST Lab Reportson 04-18-2023 Lab Reports [id number] #1.00TIFF [facility] Physician Orderon 04-13-2023 Physician Order [id number] #1.00TIFF [facility] Formson 04-12-2023 Forms [id number] #1.00TIFF [facility] Lab Reportson 04-12-2023 Lab Reports [id number] #1.00TIFF [facility] Patient Educationon 04-11-20 Patient Education Oncology [...] Where to find more information ? The [place] Cancer Society: www.cancer.org ? [place] [employer] Association: www.auanet.org Contact a health care [...] adds flu (more content not included)... Normal [facility] Urology Office/Clinic Noteon 04-11-2023 Urology Office/Clinic Note [...] given order for PSA. Will complete at [facility]. Return in about 4 weeks to [...] Contact Information FLAKO ELLIOTT, THERESA [place], URL [address] [place] [address] [phone] Additional Instructions: f/u with MD in 1 [...] SARS-CoV-2 (COVID-19) Ad26 vaccine 09/02/2020 Recorded Normal [facility] Comment on above: Result Comment: Elec tronically Signed By: THERESA ARRIOLA PA-C\.br\Date and Time Signed: 04/11/23 13:13 EDT\.br\Electronically Co-Signed By: Carissa Hammonds\.br\Date and Time Co-Signed: 04/11/23 12:33 EDT RAD - MRI Reporton 3 RAD - MRI Report [id number] #1.00TIFF Normal [facility] Creatinine (Bld) [Mass/Vol]O rdered By: Theresa Arriola on 04-03-2023 Creatinine [Mass/Vol] 1.4 mg/dL 0.6-1.3 [facility] Comment on above: ER/ESD physician is notified/shown all ISTAT results.Critical values may be confirmed by laboratory testing ifdeemed necessary by ER attending doctor. ISTAT XRay CREon 04-03-2023 Creatinine [Mass/Vol] 1.4 mg/dL High 0.6-1.3 [facility] Comment on above: Result Comment: ER/E SD physician is notified/shown all ISTAT results. Critical values may be confirmed by laboratory testing if deemed necessary by ER attending doctor. Performed By: #### I SCRE #### [facility] [address] [place] [address] ISTAT GFR [address] [facility] Comment on above: Result Comment: PERF ORMED BY: [place] [address] PATHOLOGIST PUMP ERECTOR SARAH BETH SILVEIRA M.D. Performed By: #### I SCRE #### [facility] [address] [place] [address] MR prostate wo/w conon 04-03 MR prostate wo/w con [facility] Main [address] [place] [address] MRI Report Signed Patient: Michael Killian MR#: [id number] : 1955 Acct:[id number] Age/Sex: 68 / M ADM Date: 04/03/23 Loc: Room: Type: [facility] Attending Dr: Theresa Arriola PA-C Copies to: [...] Cleary Jr., D.O.04/03/2023 1:40 PM Dictation Location: [facility]--15 Transcribed By: [facility] 04/03/23 1340 Dictated By: Leandro Cleary Jr DO 04/03/23 1334 Signed By: 04/03/[address] [facility] PROF 14(COMP METB)on 023 Albumin [Mass/Vol] 3.9 g/dL Normal 3.4-5.0 [facility] Comment on above: Performed By: #### B MP #### [facility] [address] [address] [address] Duy Gallegos Albumin/Globulin [Mass ratio] 1.1 {ratio} Normal [facility] Comment on above: Performed By: #### B MP #### [facility] [address] [address] [address] Duy Gallegos ALP [Catalytic activity/Vol] 70 U/L Normal 46-116 [facility] Comment on above: Performed By: #### B MP #### [facility] [address] [address] [address] Duy Gallegos ALT [Catalytic activity/Vol] 26 U/L Normal 16-63 [facility] Comment on above: Performed By: #### B MP #### [facility] [address] [address] [address] Duy Gallegos Anion gap [Moles/Vol] 13.1 mmol/L Normal [facility] Comment on above: Performed By: #### B MP #### [facility] [address] [place] [address] Dr. Duy Gallegos AST [Catalytic activity/Vol] 17 U/L Normal 15-37 [facility] Comment on above: Performed By: #### B MP #### [facility] [address] [place] [address] Dr. Duy Gallegos Bilirubin [Mass/Vol] 0.6 mg/dL Normal 0.2-1.0 [facility] Comment on above: Performed By: #### B MP #### [facility] [address] [place] [address] Dr. Duy Gallegos Calcium [Mass/Vol] 9.0 mg/dL Normal 8.5-10.1 [facility] Comment on above: Performed By: #### B MP #### [facility] [address] [place] [address] Dr. Duy Gallegos Chloride [Moles/Vol] 106 mmol/L Normal 98-107 [facility] Comment on above: Performed By: #### B MP #### [facility] [address] [place] [address] Dr. Duy Gallegos CO2 [Moles/Vol] 28.5 mmol/L Normal 21.0-32.0 [facility] Comment on above: Performed By: #### B MP #### [facility] [address] [address] [address] Duy Gallegos Creatinine [Mass/Vol] 1.22 mg/dL Normal 0.70-1.30 [facility] Comment on above: Performed By: #### B MP #### [facility] [address] [address] [address] Duy Gallegos EGFR-AF BELIZEAN >60 Normal >=60 [facility] Comment on above: Performed By: #### B MP #### [facility] [address] [address] [address] Duy Gallegos EGFR-NON AF BELIZEAN 59 mL/min/1.73m2 Critically low >=60 [facility] Comment on above: Performed By: #### B MP #### [facility] [address] [place] [address] Dr. Duy Gallegos Globulin (S) [Mass/Vol] 3.7 g/dL Normal [facility] Comment on above: Performed By: #### B MP #### [facility] [address] [address] [address] Duy Gallegos Glucose [Mass/Vol] 113 mg/dL Critically high 74-106 [facility] Comment on above: Performed By: #### B MP #### [facility] [address] [address] [address] Duy Gallegos Potassium [Moles/Vol] 4.6 mmol/L Normal 3.5-5.1 [facility] Comment on above: Performed By: #### B MP #### [facility] [address] [address] [address] Duy Gallegos Protein [Mass/Vol] 7.6 g/dL Normal 6.4-8.2 [facility] Comment on above: Performed By: #### B MP #### [facility] [address] [address] [address] Duy Gallegos Sodium [Moles/Vol] 143 mmol/L Normal 136-145 [facility] Comment on above: Performed By: #### B MP #### [facility] [address] [place] [address] Dr. Duy Gallegos Urea nitrogen [Mass/Vol] 12.0 mg/dL Normal 7.0-18.0 [facility] Comment on above: Performed By: #### B MP #### [facility] [address] [place] [address] Dr. Duy Gallegos Urea nitrogen/Creatinine [Mass ratio] 9.8 mg/mg Normal [facility] Comment on above: Performed By: #### B MP #### [facility] [address] [place], [place] [id number] Dr. Duy Gallegos XR CHEST 2 Von [...] by: LIDYA VALE Date: 2022-11-07 09:16 Normal [facility] CULTURE BLOODon 08-30-2022 Microscopic examination of [...] F Trimethoprim/Sulfame thoxazole <=10 S F Normal [facility] Comment on above: Performed By: #### B MP #### [facility] [address] [place] [address] [address] [address] Duy Gallegos HEPATITIS PANEL, ACUTEon HBsAg Screen Negative Normal Negative [facility] Comment on above: Performed By: #### C BC #### [facility] [address] [place] [address] Dr. Duy Gallegos HCV AB Non-Reactive Normal Non Reactive [facility] Comment on above: Performed By: #### C BC #### [facility] [address] [place] [address] Dr. Duy Gallegos Hep A Ab, IgM Negative Normal Negative [facility] Comment on above: Performed By: #### C BC #### [facility] [address] [address] [address] Duy Gallegos Hep B Core Ab, IgM Negative Normal Negative [facility] Comment on above: Performed By: #### C BC #### [facility] [address] [place] [address] Dr. Duy Gallegos Interpretation: Comment Normal [facility] Comment on above: Result Comment: Not infected with HCV unless early or acute infection is suspected (which may be delayed in an immunocompromised individual), or other evidence exists to indicate HCV infection. Performed By: #### C BC #### [facility] [address] [place] [address] Dr. Duy Gallegos CBC W MANUAL DIFFon 08-29-19 23 ATYPICAL LYMPH # Normal [facility] Comment on above: Performed By: #### B MP #### [facility] [address] [place] [address] Dr. Duy Gallegos ATYPICAL LYMPH % Normal [facility] Comment on above: Performed By: #### B MP #### [facility] [address] [place] [address] Dr. Duy Gallegos BAND # 0.0 103/ul Normal 0.0-0.3 [facility] Comment on above: Performed By: #### B MP #### [facility] [address] [place] [address] Dr. Duy Gallegos BAND % 0 % Normal 0-5 [facility] Comment on above: Performed By: #### B MP #### [facility] [address] [place] [address] Dr. Duy Gallegos BASOM # 0.00 103/ul Normal 0.00-0.10 [facility] Comment on above: Performed By: #### B MP #### [facility] [address] [place] [address] Dr. Duy Gallegos BASOM % 0.0 % Critically low 0.2-2.0 [facility] Comment on above: Performed By: #### B MP #### [facility] [address] [place] [address] Dr. Duy Gallegos BLAST # Normal [facility] Comment on above: Performed By: #### B MP #### [facility] [address] [place] [address] Dr. Duy Gallegos BLAST % Normal [facility] Comment on above: Performed By: #### B MP #### [facility] [address] [place] [address] Dr. Duy Gallegos CORRECTED WBC Normal 4.0-11.0 [facility] Comment on above: Performed By: #### B MP #### [facility] [address] [place] [address] Dr. Duy Gallegos EOS # 0.00 103/ul Normal 0.00-0.70 [facility] Comment on above: Performed By: #### B MP #### [facility] [address] [place] [address] Dr. Duy Gallegos EOS% 0.0 % Critically low 0.9-7.0 [facility] Comment on above: Performed By: #### B MP #### [facility] [address] [place] [address] Dr. Duy Gallegos HCT 36.8 % Critically low 42.0-54.0 [facility] Comment on above: Performed By: #### B MP #### [facility] [address] [place] [address] Dr. Duy Gallegos HGB 12.0 g/dl Critically low 14.0-18.0 [facility] Comment on above: Performed By: #### B MP #### [facility] [address] [place] [address] Dr. Duy Gallegos LYMPHM # 0.47 103/ul Critically low 1.20-3.80 [facility] Comment on above: Performed By: #### B MP #### [facility] [address] [place] [address] Dr. Duy Gallegos LYMPHM% 6.0 % Critically low 20.5-60.0 [facility] Comment on above: Performed By: #### B MP #### [facility] [address] [place] [address] Dr. Duy Gallegos MCH 28.4 pg Normal 25.9-34.0 [facility] Comment on above: Performed By: #### B MP #### [facility] [address] [place] [address] Dr. Duy Gallegos MCHC 32.6 g/dl Normal 29.9-35.2 [facility] Comment on above: Performed By: #### B MP #### [facility] [address] [place] [address] Dr. Duy Gallegos MCV 87.0 fL Normal 80.0-94.0 [facility] Comment on above: Performed By: #### B MP #### [facility] [address] [place] [address] Dr. Duy Gallegos METAMYELOCYTE # Normal [facility] Comment on above: Performed By: #### B MP #### [facility] [facility] [address] [place] [address] Dr. Duy Gallegos METAMYELOCYTE % Normal [facility] Comment on above: Performed By: #### B MP #### [facility] [address] [place] [address] Dr. Duy Gallegos MONOM# 0.40 103/ul Normal 0.30-0.80 [facility] Comment on above: Performed By: #### B MP #### [facility] [address] [place] [address] Dr. Duy Gallegos MONOM% 5.0 % Normal 1.7-12.0 [facility] Comment on above: Performed By: #### B MP #### [facility] [address] [place] [address] Dr. Duy Gallegos MPV 10.2 fL Normal 9.5-13.5 [facility] Comment on above: Performed By: #### B MP #### [facility] [address] [place] [address] Dr. Duy Gallgeos MYELOCYTE # Normal [facility] Comment on above: Performed By: #### B MP #### [facility] [address] [place] [address] Dr. Duy Gallegos MYELOCYTE % Normal [facility] Comment on above: Performed By: #### B MP #### [facility] [address] [place] [address] Dr. Duy Gallegos NRBC Normal [facility] Comment on above: Performed By: #### B MP #### [facility] [address] [place] [address] Dr. Duy Gallegos PLT 205 103/ul Normal 150-450 [facility] Comment on above: Performed By: #### B MP #### [facility] [address] [place] [address] Dr. Duy Gallegos RBC 4.23 106/ul Critically low 4.70-6.10 [facility] Comment on above: Performed By: #### B MP #### [facility] [address] [place] [address] Dr. Duy Gallegos RDW 13.3 % Normal 11.0-15.0 [facility] Comment on above: Performed By: #### B MP #### [facility] [address] [place] [address] Dr. Duy Gallegos SEG # 7.03 103/ul Critically high 1.40-6.50 [facility] Comment on above: Performed By: #### B MP #### [facility] [address] [place] [address] Dr. Duy Gallegos SEG % 89.0 % Critically high 43.0-75.0 [facility] Comment on above: Performed By: #### B MP #### [facility] [address] [place] [address] Dr. Duy Gallegos WBC 7.9 103/ul Normal 4.0-11.0 [facility] Comment on above: Performed By: #### B MP #### [facility] [address] [address] [address] Dyu Gallegos PROF 14(COMP METB)on 023 Albumin [Mass/Vol] 3.4 g/dL Normal 3.4-5.0 [facility] Comment on above: Performed By: #### C BC #### [facility] [address] [place] [address] Dr. uDy Gallegos Albumin/Globulin [Mass ratio] 1.0 {ratio} Normal [facility] Comment on above: Performed By: #### C BC #### [facility] [address] [place] [address] Dr. Duy Gallegos ALP [Catalytic activity/Vol] 73 U/L Normal 46-116 [facility] Comment on above: Performed By: #### C BC #### [facility] [address] [place] [address] Dr. Duy Gallegos ALT [Catalytic activity/Vol] 66 U/L Critically high 16-63 [facility] Comment on above: Performed By: #### C BC #### [facility] [address] [place] [address] Dr. Duy Gallegos Anion gap [Moles/Vol] 10.6 mmol/L Normal [facility] Comment on above: Performed By: #### C BC #### [facility] [address] [place] [address] Dr. Duy Gallegos AST [Catalytic activity/Vol] 26 U/L Normal 15-37 [facility] Comment on above: Performed By: #### C BC #### [facility] [address] [place] [address] Dr. Duy Gallegos Bilirubin [Mass/Vol] 0.3 mg/dL Normal 0.2-1.0 [facility] Comment on above: Performed By: #### C BC #### [facility] [address] [place] [address] Dr. Duy Gallegos Calcium [Mass/Vol] 8.9 mg/dL Normal 8.5-10.1 [facility] Comment on above: Performed By: #### C BC #### [facility] [address] [place] [address] Dr. Duy Gallegos Chloride [Moles/Vol] 106 mmol/L Normal 98-107 [facility] Comment on above: Performed By: #### C BC #### [facility] [address] [address] [address] Duy Gallegos CO2 [Moles/Vol] 29.3 mmol/L Normal 21.0-32.0 [facility] Comment on above: Performed By: #### C BC #### [facility] [address] [place] [address] Dr. Duy Gallegos Creatinine [Mass/Vol] 1.12 mg/dL Normal 0.70-1.30 [facility] Comment on above: Performed By: #### C BC #### [facility] [address] [place] [address] Dr. Duy Gallegos EGFR-AF BELIZEAN >60 Normal >=60 [facility] Comment on above: Performed By: #### C BC #### [facility] [address] [place] [address] Dr. Duy Gallegos EGFR-NON AF BELIZEAN >60 Normal >=60 [facility] Comment on above: Performed By: #### C BC #### [facility] [address] [place] [address] Dr. Duy Gallegos Globulin (S) [Mass/Vol] 3.3 g/dL Normal [facility] Comment on above: Performed By: #### C BC #### [facility] [address] [place] [address] Dr. Duy Gallegos Glucose [Mass/Vol] 157 mg/dL Critically high 74-106 [facility] Comment on above: Performed By: #### C BC #### [facility] [address] [place] [address] Dr. Duy Gallegos Potassium [Moles/Vol] 4.9 mmol/L Normal 3.5-5.1 [facility] Comment on above: Performed By: #### C BC #### [facility] [address] [place] [address] Dr. Duy Gallegos Protein [Mass/Vol] 6.7 g/dL Normal 6.4-8.2 [facility] Comment on above: Performed By: #### C BC #### [facility] [address] [place] [address] Dr. Duy Gallegos Sodium [Moles/Vol] 141 mmol/L Normal 136-145 [facility] Comment on above: Performed By: #### C BC #### [facility] [address] [place] [address] Dr. Duy Gallegos Urea nitrogen [Mass/Vol] 22.0 mg/dL Critically high 7.0-18.0 [facility] Comment on above: Performed By: #### C BC #### [facility] [address] [place] [address] Dr. Duy Gallegos Urea nitrogen/Creatinine [Mass ratio] 19.6 mg/mg Normal [facility] Comment on above: Performed By: #### C BC #### [facility] [address] [place] [address] Dr. Duy Gallegos MAGNESIUMon 08-27-2022 Magnesium [Mass/Vol] 2.0 mg/dL Normal 1.8-2.4 [facility] Comment on above: Performed By: #### C MP, MG #### [facility] [address] [place] [address] Dr. Duy Gallegos PROF 14(COMP METB)on 023 Albumin [Mass/Vol] 3.6 g/dL Normal 3.4-5.0 [facility] Comment on above: Performed By: #### C MP, MG #### [facility] [address] [place] [address] Dr. Duy Gallegos Albumin/Globulin [Mass ratio] 0.9 {ratio} Normal [facility] Comment on above: Performed By: #### C MP, MG #### [facility] [address] [place] [address] Dr. Duy Gallegos ALP [Catalytic activity/Vol] 79 U/L Normal 46-116 [facility] Comment on above: Performed By: #### C MP, MG #### [facility] [address] [address] [address] Duy Gallegos ALT [Catalytic activity/Vol] 86 U/L Critically high 16-63 [facility] Comment on above: Performed By: #### C MP, MG #### [facility] [address] [address] [address] Duy Gallegos Anion gap [Moles/Vol] 14.3 mmol/L Normal [facility] Comment on above: Performed By: #### C MP, MG #### [facility] [address] [address] [address] Duy Gallegos AST [Catalytic activity/Vol] 38 U/L Critically high 15-37 [facility] Comment on above: Performed By: #### C MP, MG #### [facility] [address] [address] [address] Duy Gallegos Bilirubin [Mass/Vol] 0.4 mg/dL Normal 0.2-1.0 [facility] Comment on above: Performed By: #### C MP, MG #### [facility] [address] [address] [address] Duy Gallegos Calcium [Mass/Vol] 9.3 mg/dL Normal 8.5-10.1 [facility] Comment on above: Performed By: #### C MP, MG #### [facility] [address] [place] [address] Dr. Duy Gallegos Chloride [Moles/Vol] 106 mmol/L Normal 98-107 [facility] Comment on above: Performed By: #### C MP, MG #### [facility] [address] [address] [address] Duy Gallegos CO2 [Moles/Vol] 27.1 mmol/L Normal 21.0-32.0 [facility] Comment on above: Performed By: #### C MP, MG #### [facility] [address] [address] [address] Duy Gallegos Creatinine [Mass/Vol] 1.17 mg/dL Normal 0.70-1.30 [facility] Comment on above: Performed By: #### C MP, MG #### [facility] [address] [place] [address] Dr. Duy Gallegos EGFR-AF BELIZEAN >60 Normal >=60 [facility] Comment on above: Performed By: #### C MP, MG #### [facility] [address] [address] [address] Duy Gallegos EGFR-NON AF BELIZEAN >60 Normal >=60 [facility] Comment on above: Performed By: #### C MP, MG #### [facility] [address] [place] [address] Dr. Duy Gallegos Globulin (S) [Mass/Vol] 3.8 g/dL Normal [facility] Comment on above: Performed By: #### C MP, MG #### [facility] [address] [place] [address] Dr. Duy Gallegos Glucose [Mass/Vol] 163 mg/dL Critically high 74-106 [facility] Comment on above: Performed By: #### C MP, MG #### [facility] [address] [place] [address] Dr. Duy Gallegos Potassium [Moles/Vol] 5.4 mmol/L Critically high 3.5-5.1 [facility] Comment on above: Performed By: #### C MP, MG #### [facility] [address] [place] [address] Dr. Duy Gallegos Protein [Mass/Vol] 7.4 g/dL Normal 6.4-8.2 [facility] Comment on above: Performed By: #### C MP, MG #### [facility] [address] [place] [address] Dr. Duy Gallegos Sodium [Moles/Vol] 142 mmol/L Normal 136-145 [facility] Comment on above: Performed By: #### C MP, MG #### [facility] [address] [place] [address] Dr. Duy Gallegos Urea nitrogen [Mass/Vol] 16.0 mg/dL Normal 7.0-18.0 [facility] Comment on above: Performed By: #### C MP, MG #### [facility] [address] [address] [address] Duy Gallegos Urea nitrogen/Creatinine [Mass ratio] 13.7 mg/mg Normal [facility] Comment on above: Performed By: #### C MP, MG #### [facility] [address] [address] [address] Duy Gallegos PROF CHEM 8 (BAS METB)on Anion gap [Moles/Vol] 15.1 mmol/L Normal [facility] Comment on above: Performed By: #### B MP #### [facility] [address] [place] [address] Dr. Duy Gallegos Calcium [Mass/Vol] 9.0 mg/dL Normal 8.5-10.1 [facility] Comment on above: Performed By: #### B MP #### [facility] [address] [place] [address] Dr. Duy Gallegos Chloride [Moles/Vol] 105 mmol/L Normal 98-107 [facility] Comment on above: Performed By: #### B MP #### [facility] [address] [place] [address] Dr. Duy Gallegos CO2 [Moles/Vol] 27.0 mmol/L Normal 21.0-32.0 [facility] Comment on above: Performed By: #### B MP #### [facility] [address] [place] [address] Dr. Duy Gallegos Creatinine [Mass/Vol] 1.20 mg/dL Normal 0.70-1.30 [facility] Comment on above: Performed By: #### B MP #### [facility] [address] [place] [address] Dr. Duy Gallegos EGFR-AF BELIZEAN >60 Normal >=60 [facility] Comment on above: Performed By: #### B MP #### [facility] [address] [place] [address] Dr. Duy Gallegos EGFR-NON AF BELIZEAN >60 Normal >=60 [facility] Comment on above: Performed By: #### B MP #### [facility] [address] [address] [address] Duy Gallegos Glucose [Mass/Vol] 155 mg/dL Critically high 74-106 [facility] Comment on above: Performed By: #### B MP #### [facility] [address] [address] [address] Duy Gallegos Potassium [Moles/Vol] 5.1 mmol/L Normal 3.5-5.1 [facility] Comment on above: Performed By: #### B MP #### [facility] [address] [address] [address] Duy Gallegos Sodium [Moles/Vol] 142 mmol/L Normal 136-145 [facility] Comment on above: Performed By: #### B MP #### [facility] [address] [address] [address] Duy Gallegos Urea nitrogen [Mass/Vol] 19.0 mg/dL Critically high 7.0-18.0 [facility] Comment on above: Performed By: #### B MP #### [facility] [address] [address] [address] Duy Gallegos Urea nitrogen/Creatinine [Mass ratio] 15.8 mg/mg Normal [facility] Comment on above: Performed By: #### B MP #### [facility] [address] [address] [address] Duy Gallegos XR CHEST 2 Von [...] Date: 2022-08-27 08:27 Normal [facility] BLOOD CULTURE ID PANELon A. baumannii Not detected Normal NOT DETECTED [facility] Comment on above: Performed By: #### C BC #### [facility] [address] [place] [address] Dr. Duy Gallegos Bacteriodes fragilis Not detected Normal NOT DETECTED [facility] Comment on above: Performed By: #### C BC #### [facility] [address] [address] [address] Duy PEREIRAD CONTROLS PASSED Normal [facility] Comment on above: Performed By: #### C BC #### [facility] [address] [place] [address] Dr. Duy PEREIRADBTHD BLOOD CULTURE BOTTLE INFORMATION [facility] Comment on above: Performed By: #### C BC #### [facility] [address] [address] [address] Duy Gallegos BCIDHD1 ANTIMICROBIAL RESISTANCE GENES [facility] Comment on above: Performed By: #### C BC #### [facility] [address] [place] [address] Dr. Duy Gallegos BCIDHD2 SEE BELOW [facility] Comment on above: Result Comment: Note : Antimicrobial resitance can occur via multiple mechanisms. A Not Detected result for the [employer] antomicrobial resistance gene assays does not indicate antimicrobial susceptibility. Subculturing is required for species identification and susceptibility testing of isolates. Performed By: #### C BC #### [facility] [address] [place] [address] Dr. Duy Gallegos BCIDHD3 Positive [facility] Comment on above: Performed By: #### C BC #### [facility] [address] [place] [address] Dr. Duy Gallegos BCIDHD4 Negative [facility] Comment on above: Performed By: #### C BC #### [facility] [address] [place] [address] Dr. Duy Gallegos BCIDHD5 YEAST [facility] Comment on above: Performed By: #### C BC #### [facility] [address] [place] [address] Dr. Duy Gallegos Bottle Set: Set 1 [facility] Comment on above: Performed By: #### C BC #### [facility] [address] [place] [address] Dr. Duy Gallegos Bottle: Anaerobic Normal [facility] Comment on above: Performed By: #### C BC #### [facility] [address] [place] [address] Dr. Duy Gallegos C. neoformans/gattii Not detected Normal NOT DETECTED [facility] Comment on above: Performed By: #### C BC #### [facility] [address] [place] [address] Dr. Duy Gallegos Gala albicans Not detected Normal NOT DETECTED [facility] Comment on above: Performed By: #### C BC #### [facility] [address] [place] [address] Dr. Duy Gallegos Gala auris Not detected Normal NOT DETECTED [facility] Comment on above: Performed By: #### C BC #### [facility] [address] [place] [address] Dr. Duy Gallegos Gala glabrata Not detected Normal NOT DETECTED [facility] Comment on above: Performed By: #### C BC #### [facility] [address] [place] [address] Dr. Duy Gallegos Gala Krusei Not detected Normal NOT DETECTED [facility] Comment on above: Performed By: #### C BC #### [facility] [address] [place] [address] Dr. Duy Gallegos Gala Parapsilosis Not detected Normal NOT DETECTED [facility] Comment on above: Performed By: #### C BC #### [facility] [address] [place] [address] Dr. Duy Gallegos Gala Tropicalis Not detected Normal NOT DETECTED [facility] Comment on above: Performed By: #### C BC #### [facility] [address] [place] [address] Dr. Duy Gallegos CTX-M Resistant Gene Not Applicable Normal NOT DETECTE D [facility] Comment on above: Performed By: #### C BC #### [facility] [address] [place] [address] Dr. Duy Gallegos E. Cloacae complex Not detected Normal NOT DETECTED [facility] Comment on above: Performed By: #### C BC #### [facility] [address] [place] [address] Dr. Duy Gallegos E. faecalis Not detected Normal NOT DETECTED [facility] Comment on above: Performed By: #### C BC #### [facility] [address] [place] [address] Dr. Duy Gallegos E. faecium Not detected Normal NOT DETECTED [facility] Comment on above: Performed By: #### C BC #### [facility] [address] [place] [address] Dr. Duy Gallegos Enterobacteriaceae Not detected Normal NOT DETECTED [facility] Comment on above: Performed By: #### C BC #### [facility] [address] [place] [address] Dr. Duy Gallegos Escherichia coli Not detected Normal NOT DETECTED [facility] Comment on above: Performed By: #### C BC #### [facility] [address] [place] [address] Dr. Duy Gallegos H. influenzae Not detected Normal NOT DETECTED [facility] Comment on above: Performed By: #### C BC #### [facility] [address] [place] [address] Dr. Duy Gallegos IMP Resistant Gene Not Applicable Normal NOT DETECTED [facility] Comment on above: Performed By: #### C BC #### [facility] [address] [place] [address] Dr. Duy Gallegos K. oxytoca Not detected Normal NOT DETECTED [facility] Comment on above: Performed By: #### C BC #### [facility] [address] [place] [address] Dr. Duy Gallegos K. pneumoniae Not detected Normal NOT DETECTED [facility] Comment on above: Performed By: #### C BC #### [facility] [address] [place] [address] Dr. Duy Gallegos Klebsiella aerogenes Not detected Normal NOT DETECTED [facility] Comment on above: Performed By: #### C BC #### [facility] [address] [place] [address] Dr. Duy Gallegos KPC Resistant Gene Not Applicable Normal NOT DETECTED [facility] Comment on above: Performed By: #### C BC #### [facility] [address] [place] [address] Dr. Duy Gallegos List. monocytogenes Not detected Normal NOT DETECTED [facility] Comment on above: Performed By: #### C BC #### [facility] [address] [place] [address] Dr. Duy Gallegos Mcr-1 Resistant Gene Not Applicable Normal NOT DETECTE D [facility] Comment on above: Performed By: #### C BC #### [facility] [address] [place] [address] Dr. Duy Gallegos mecA/C Not Applicable Normal NOT DETECTED [facility] Comment on above: Performed By: #### C BC #### [facility] [address] [place] [address] Dr. Duy Gallegos mecA/C MREJ Not Applicable Normal NOT DETECTED [facility] Comment on above: Performed By: #### C BC #### [facility] [address] [place] [address] Dr. Duy Gallegos N. meningitidis Not detected Normal NOT DETECTED [facility] Comment on above: Performed By: #### C BC #### [facility] [address] [place] [address] Dr. Duy Gallegos NDM Resistant Gene Not Applicable Normal NOT DETECTED [facility] Comment on above: Performed By: #### C BC #### [facility] [address] [place] [address] Dr. Duy Gallegos Oxa-48-like Not Applicable Normal NOT DETECTED [facility] Comment on above: Performed By: #### C BC #### [facility] [address] [place] [address] Dr. Duy Gallegos Proteus Not detected Normal NOT DETECTED [facility] Comment on above: Performed By: #### C BC #### [facility] [address] [place] [address] Dr. Duy Gallegos Pseud. aeruginosa Not detected Normal NOT DETECTED [facility] Comment on above: Performed By: #### C BC #### [facility] [address] [place] [address] Dr. Duy Gallegos S. maltophilia Not detected Normal NOT DETECTED [facility] Comment on above: Performed By: #### C BC #### [facility] [address] [address] [address] Duy Gallegos Salmonella Not detected Normal NOT DETECTED [facility] Comment on above: Performed By: #### C BC #### [facility] [address] [place] [address] Dr. Duy Gallegos Seratia marcescens Not detected Normal NOT DETECTED [facility] Comment on above: Performed By: #### C BC #### [facility] [address] [place] [address] Dr. Duy Gallegos Site: L a/c Normal [facility] Comment on above: Performed By: #### C BC #### [facility] [address] [place] [address] Dr. Duy Gallegos Staph. aureus Not detected Normal NOT DETECTED [facility] Comment on above: Performed By: #### C BC #### [facility] [address] [place] [address] Dr. Duy Gallegos Staph. epidermidis Not detected Normal NOT DETECTED [facility] Comment on above: Performed By: #### C BC #### [facility] [address] [place] [address] Dr. Duy Gallegos Staph. lugdunensis Not detected Normal NOT DETECTED [facility] Comment on above: Performed By: #### C BC #### [facility] [address] [place] [address] Dr. Duy Gallegos Staphylococcus Detected Critically abnormal NOT DETECTED [facility] Comment on above: Performed By: #### C BC #### [facility] [address] [place] [address] Dr. Duy Gallegos Strep. agalactiae Not detected Normal NOT DETECTED [facility] Comment on above: Performed By: #### C BC #### [facility] [address] [place] [address] Dr. Duy Gallegos Strep. pneumoniae Not detected Normal NOT DETECTED [facility] Comment on above: Performed By: #### C BC #### [facility] [address] [place] [address] Dr. Duy Gallegos Strep. pyogenes Not detected Normal NOT DETECTED [facility] Comment on above: Performed By: #### C BC #### [facility] [address] [place] [address] Dr. Duy Gallegos Streptococcus Not detected Normal NOT DETECTED [facility] Comment on above: Performed By: #### C BC #### [facility] [address] [place] [address] Dr. Duy Gallegos Cullen/B Resist. Gene Not Applicable Normal NOT DETECTED [facility] Comment on above: Performed By: #### C BC #### [facility] [address] [place] [address] Dr. Duy Gallegos VIM Resistant Gene Not Applicable Normal NOT DETECTED [facility] Comment on above: Performed By: #### C BC #### [facility] [address] [place] [address] Dr. Duy Gallegos BLOOD GASES [facility] 08-26-2022 02 MODE NASAL CANNULA Normal [facility] Comment on above: Performed By: #### C BC #### [facility] [address] [place] [address] Dr. Duy Gallegos ALLENS TEST Positive Normal [facility] Comment on above: Performed By: #### C BC #### [facility] [address] [place] [address] Dr. Duy Gallegos Base excess Calc (Bld) [Moles/Vol] -1.3000 mmol/L Normal -2.0-2.0 [facility] Comment on above: Performed By: #### C BC #### [facility] [address] [place] [address] Dr. Duy Gallegos BIPAP PRESSURE Normal [facility] Comment on above: Performed By: #### C BC #### [facility] [address] [place] [address] Dr. Duy Gallegos CPAP [facility] Comment on above: Performed By: #### C BC #### [facility] [address] [address] [address] Duy Gallegos FIO2 [facility] Comment on above: Performed By: #### C BC #### [facility] [address] [address] [address] Duy Gallegos HCO3 (Bld) [Moles/Vol] 24.5 mmol/L Normal 22.0-26.0 [facility] Comment on above: Performed By: #### C BC #### [facility] [address] [address] [address] Duy Gallegos LPM 2 [facility] Comment on above: Performed By: #### C BC #### [facility] [address] [place] [address] Dr. Duy Gallegos MINUTE VOLUME Normal [facility] Comment on above: Performed By: #### C BC #### [facility] [address] [place] [address] Dr. Duy Gallegos Oxygen (Bld) [Partial pressure] 64.3 mm[Hg] Critically low 80.0-100.0 [facility] Comment on above: Performed By: #### C BC #### [facility] [address] [place] [address] Dr. Duy Gallegos Oxygen saturation in Blood 92.0 % Critically low 95.0-100.0 [facility] Comment on above: Performed By: #### C BC #### [facility] [address] [address] [address] Duy Gallegos PCO2 45.3 mmHg Critically high 35.0-45.0 [facility] Comment on above: Performed By: #### C BC #### [facility] [address] [address] [address] Duy Gallegos PEEP [facility] Comment on above: Performed By: #### C BC #### [facility] [address] [place] [address] Dr. Duy Gallegos pH (Bld) 7.341 [pH] Critically low 7.350-7.450 [facility] Comment on above: Performed By: #### C BC #### [facility] [address] [place] [address] Dr. Duy Gallegos [facility] Comment on above: Performed By: #### C BC #### [facility] [address] [place] [address] Dr. Duy Gallegos PS [facility] Comment on above: Performed By: #### C BC #### [facility] [address] [place] [address] Dr. Duy Gallegos PUNCTURE SITE LR [facility] Comment on above: Performed By: #### C BC #### [facility] [address] [place] [address] Dr. Duy Gallegos [facility] Comment on above: Performed By: #### C BC #### [facility] [address] [place] [address] Dr. Duy Gallegos VENT MODE [facility] Comment on above: Performed By: #### C BC #### [facility] [address] [place] [address] Dr. Duy Gallegos [facility] Comment on above: Performed By: #### C BC #### [facility] [address] [place] [address] Dr. Duy Gallegos BNPon 08-26-2022 Natriuretic peptide B (Bld) [Mass/Vol] 2516.0 pg/mL Critically high <=900.0 [facility] Comment on above: Performed By: #### B MP #### [facility] [address] [place] [address] Dr. Duy Gallegos CBC AUTO DIFFon 08-26-2022 BASO # 0.1 103/ul Normal 0.0-0.1 [facility] Comment on above: Performed By: #### C BC #### [facility] [address] [place] [address] Dr. Duy Gallegos Basophils/100 WBC (Bld) 1.2 % Normal 0.2-2.0 [facility] Comment on above: Performed By: #### C BC #### [facility] [address] [place] [address] Dr. Duy Gallegos EO # 0.4 103/ul Normal 0.0-0.7 [facility] Comment on above: Performed By: #### C BC #### [facility] [address] [place] [address] Dr. Duy Gallegos Eosinophils/100 WBC (Bld) 4.6 % Normal 0.9-7.0 [facility] Comment on above: Performed By: #### C BC #### [facility] [address] [place] [address] Dr. Duy Gallegos Erythrocyte distribution width (RBC) [Ratio] 13.2 % Normal 11.0-15.0 [facility] Comment on above: Performed By: #### C BC #### [facility] [address] [place] [address] Dr. Duy Gallegos Hematocrit (Bld) [Volume fraction] 41.1 % Critically low 42.0-54.0 [facility] Comment on above: Performed By: #### C BC #### [facility] [address] [place] [address] Dr. Duy Gallegos Hemoglobin (Bld) [Mass/Vol] 13.8 g/dL Critically low 14.0-18.0 [facility] Comment on above: Performed By: #### C BC #### [facility] [address] [place] [address] Dr. Duy Gallegos IG # 0.03 10e3/ul Normal 0.00-0.03 [facility] Comment on above: Performed By: #### C BC #### [facility] [address] [place] [address] Dr. Duy Gallegos IG % 0.4 % Normal 0.0-0.5 [facility] Comment on above: Performed By: #### C BC #### [facility] [address] [place] [address] Dr. Duy Gallegos LYMPH # 2.9 103/ul Normal 1.2-3.8 [facility] Comment on above: Performed By: #### C BC #### [facility] [address] [place] [address] Dr. Duy Gallegos Lymphocytes/100 WBC (Bld) 35.3 % Normal 20.5-60.0 [facility] Comment on above: Performed By: #### C BC #### [facility] [address] [place] [address] Dr. Duy Gallegos MANUAL DIFF REQ NO Normal [facility] Comment on above: Performed By: #### C BC #### [facility] [address] [place] [address] Dr. Duy Gallegos MCH (RBC) [Entitic mass] 28.9 pg Normal 25.9-34.0 [facility] Comment on above: Performed By: #### C BC #### [facility] [address] [place] [address] Dr. Duy Gallegos MCHC (RBC) [Mass/Vol] 33.6 g/dL Normal 29.9-35.2 [facility] Comment on above: Performed By: #### C BC #### [facility] [address] [place] [address] Dr. Duy Gallegos MCV (RBC) [Entitic vol] 86.2 fL Normal 80.0-94.0 [facility] Comment on above: Performed By: #### C BC #### [facility] [address] [place] [address] Dr. Duy Gallegos MONO # 0.6 103/ul Normal 0.3-0.8 [facility] Comment on above: Performed By: #### C BC #### [facility] [address] [place] [address] Dr. Duy Gallegos Monocytes/100 WBC (Bld) 7.1 % Normal 1.7-12.0 [facility] Comment on above: Performed By: #### C BC #### [facility] [address] [place] [address] Dr. Duy Gallegos NEUT # 4.2 103/ul Normal 1.4-6.5 [facility] Comment on above: Performed By: #### C BC #### [facility] [address] [place] [address] Dr. Duy Gallegos Neutrophils/100 WBC (Bld) 51.4 % Normal 43.0-75.0 [facility] Comment on above: Performed By: #### C BC #### [facility] [address] [address] [address] Duy Gallegos Platelet mean volume (Bld) [Entitic vol] 10.1 fL Normal 9.5-13.5 [facility] Comment on above: Performed By: #### C BC #### [facility] [address] [address] [address] Duy Gallegos PLT 264 103/ul Normal 150-450 [facility] Comment on above: Performed By: #### C BC #### [facility] [address] [address] [address] Duy Gallegos RBC 4.77 106/ul Normal 4.70-6.10 [facility] Comment on above: Performed By: #### C BC #### [facility] [address] [place] [address] Dr. Duy Gallegos WBC 8.2 103/ul Normal 4.0-11.0 [facility] Comment on above: Performed By: #### C BC #### [facility] [address] [place] [address] Dr. Duy Gallegos CTA CHEST WO W [...] bilateral pleural effusions. Electronically authenticated by: CODY CABRALARDI Date: 2022-08-26 20:19 Normal [facility] CULTURE BLOODon 08-26-2022 Microscopic examination of blood, culture Culture Observations: NO GROWTH AT 5 DAYS. Normal [facility] Comment on above: Performed By: #### B MP #### [facility] [address] [address] [address] Duy Gallegos [facility]on SARS-CoV-2 (COVID-19) RNA RICKY+probe Ql (Unsp spec) Not detected Normal NOT DETECTED [facility] Comment on above: Result Comment: When diagnostic [...] for this test is supported by the [place] of Health and Human Service's declaration that [...] By: #### C BC #### [facility] [address] [place] [address] Dr. Duy Gallegos D-DIMERon 08-26-2022 D-DIMER 1.10 mg/L FEU Critically high <=0.59 [facility] Comment on above: Performed By: #### D DIM #### [facility] [address] [place] [address] Dr. Duy Gallegos D-DIMER COMMENTS SEE BELOW Normal [facility] Comment on above: Result Comment: Incr eases [...] By: #### D DIM #### [facility] [address] [place] [address] Dr. Duy Gallegos INFLUENZA A AND B AGon 08-26 [facility] SEE BELOW Normal [facility] Comment on above: Result Comment: Nega tive for Flu A protein angiten. Infection due to Flu A cannot be ruled out. Flu A angiten in the sample may be below the detection limit of the test. Performed By: #### I NFLUAB #### [facility] [address] [place] [address] Dr. Duy Galleg[facility] Normal [facility] Comment on above: Result Comment: Nega tive for Flu B protein antigen. Infection due to Flu B cannot be ruled out. Flu B antigen in the sample may be below the detection limit of the test. Performed By: #### I NFLUAB #### [facility] [address] [place] [address] Dr. Duy Gallegos INFLUENZA A AG Negative Normal NEGATIVE SEE COMMENT [facility] Comment on above: Performed By: #### I NFLUAB #### [facility] [address] [place] [address] Dr. Duy Gallegos INFLUENZA B AG Negative Normal NEGATIVE SEE COMMENT [facility] Comment on above: Performed By: #### I NFLUAB #### [facility] [address] [place] [address] Dr. Duy Gallegos LACTATE/LACTIC ACIDon 2022 Lactate [Moles/Vol] 1.8 mmol/L Normal 0.4-1.9 [facility] Comment on above: Performed By: #### L ACT #### [facility] [address] [place] [address] Dr. Duy Gallegos PROF 14(COMP METB)on 023 Albumin [Mass/Vol] 3.7 g/dL Normal 3.4-5.0 [facility] Comment on above: Performed By: #### B ALIGNER, CMP, HSTROPN #### [facility] [address] [place] [address] Dr. Duy Gallegos Albumin/Globulin [Mass ratio] 1.0 {ratio} Normal [facility] Comment on above: Performed By: #### B ALIGNER, CMP, HSTROPN #### [facility] [address] [place] [address] Dr. Duy Gallegos ALP [Catalytic activity/Vol] 84 U/L Normal 46-116 [facility] Comment on above: Performed By: #### B ALIGNER, CMP, HSTROPN #### [facility] [address] [place] [address] Dr. Duy Gallegos ALT [Catalytic activity/Vol] 103 U/L Critically high 16-63 [facility] Comment on above: Performed By: #### B ALIGNER, CMP, HSTROPN #### [facility] [address] [place] [address] Dr. Duy Gallegos Anion gap [Moles/Vol] 15.5 mmol/L Normal [facility] Comment on above: Performed By: #### B ALIGNER, CMP, HSTROPN #### [facility] [address] [place] [address] Dr. Duy Gallegos AST [Catalytic activity/Vol] 62 U/L Critically high 15-37 [facility] Comment on above: Performed By: #### B ALIGNER, CMP, HSTROPN #### [facility] [address] [place] [address] Dr. Duy Gallegos Bilirubin [Mass/Vol] 0.3 mg/dL Normal 0.2-1.0 [facility] Comment on above: Performed By: #### B ALIGNER, CMP, HSTROPN #### [facility] [address] [place] [address] Dr. Duy Gallegos Calcium [Mass/Vol] 8.8 mg/dL Normal 8.5-10.1 [facility] Comment on above: Performed By: #### B ALIGNER, CMP, HSTROPN #### [facility] [address] [address] [address] Duy Gallegos Chloride [Moles/Vol] 106 mmol/L Normal 98-107 [facility] Comment on above: Performed By: #### B ALIGNER, CMP, HSTROPN #### [facility] [address] [address] [address] Duy Gallegos CO2 [Moles/Vol] 25.9 mmol/L Normal 21.0-32.0 [facility] Comment on above: Performed By: #### B ALIGNER, CMP, HSTROPN #### [facility] [address] [address] [address] Duy Gallegos Creatinine [Mass/Vol] 1.32 mg/dL Critically high 0.70-1.30 [facility] Comment on above: Performed By: #### B ALIGNER, CMP, HSTROPN #### [facility] [address] [place] [address] Dr. Duy Gallegos EGFR-AF BELIZEAN >60 Normal >=60 [facility] Comment on above: Performed By: #### B ALIGNER, CMP, HSTROPN #### [facility] [address] [address] [address] Duy Gallegos EGFR-NON AF BELIZEAN 54 mL/min/1.73m2 Critically low >=60 [facility] Comment on above: Performed By: #### B ALIGNER, CMP, HSTROPN #### [facility] [address] [place] [address] Dr. Duy Gallegos Globulin (S) [Mass/Vol] 3.6 g/dL Normal [facility] Comment on above: Performed By: #### B ALIGNER, CMP, HSTROPN #### [facility] [address] [place] [address] Dr. Duy Gallegos Glucose [Mass/Vol] 146 mg/dL Critically high 74-106 [facility] Comment on above: Performed By: #### B ALIGNER, CMP, HSTROPN #### [facility] [address] [address] [address] Duy Gallegos Potassium [Moles/Vol] 4.4 mmol/L Normal 3.5-5.1 [facility] Comment on above: Performed By: #### B ALIGNER, CMP, HSTROPN #### [facility] [address] [place] [address] Dr. Duy Gallegos Protein [Mass/Vol] 7.3 g/dL Normal 6.4-8.2 [facility] Comment on above: Performed By: #### B ALIGNER, CMP, HSTROPN #### [facility] [address] [place] [address] Dr. Duy Gallegos Sodium [Moles/Vol] 143 mmol/L Normal 136-145 [facility] Comment on above: Performed By: #### B ALIGNER, CMP, HSTROPN #### [facility] [address] [place] [address] Dr. Duy Gallegos Urea nitrogen [Mass/Vol] 15.0 mg/dL Normal 7.0-18.0 [facility] Comment on above: Performed By: #### B ALIGNER, CMP, HSTROPN #### [facility] [address] [place] [address] Dr. Duy Gallegos Urea nitrogen/Creatinine [Mass ratio] 11.4 mg/mg Normal [facility] Comment on above: Performed By: #### B ALIGNER, CMP, HSTROPN #### [facility] [address] [place] [address] Dr. Duy Gallegos TROPONIN, HIGH SENSITIVITYon 08-26-2022 HSTROP 41.1 pg/mL Normal 4.0-76.1 [facility] Comment on above: Result Comment: CUT- OFF POINTS HAVE BEEN ESTABLISHED BASED ON THE FOURTH UNIVERSAL DEFINITIONS OF MYOCARDIAL INFARCTION. THE UPPER REFERENCE LIMIT (URL) OF TROPONIN, DEFINED THE 99TH PERCENTILE OF cTnI DISTRIBUTION IN A REFERENCE POPULATION, HAS BEEN CONFIRMED THE DECISION THRESHOLD FOR [place] DIAGNOSIS. Performed By: #### B MP #### [facility] [address] [place] [address] Dr. Duy Gallegos CBC AUTO DIFFon 05-18-2022 BASO # 0.1 103/ul Normal 0.0-0.1 [facility] Comment on above: Performed By: #### C BC #### [facility] [address] [address] [address] Duy Gallegos Basophils/100 WBC (Bld) 1.5 % Normal 0.2-2.0 [facility] Comment on above: Performed By: #### C BC #### [facility] [address] [place] [address] Dr. Duy Gallegos EO # 0.3 103/ul Normal 0.0-0.7 [facility] Comment on above: Performed By: #### C BC #### [facility] [address] [place] [address] Dr. Duy Gallegos Eosinophils/100 WBC (Bld) 4.7 % Normal 0.9-7.0 [facility] Comment on above: Performed By: #### C BC #### [facility] [address] [place] [address] Dr. Duy Gallegos Erythrocyte distribution width (RBC) [Ratio] 12.8 % Normal 11.0-15.0 [facility] Comment on above: Performed By: #### C BC #### [facility] [address] [place] [address] Dr. Duy Gallegos Hematocrit (Bld) [Volume fraction] 39.1 % Critically low 42.0-54.0 [facility] Comment on above: Performed By: #### C BC #### [facility] [address] [place] [address] Dr. Duy Gallegos Hemoglobin (Bld) [Mass/Vol] 13.2 g/dL Critically low 14.0-18.0 [facility] Comment on above: Performed By: #### C BC #### [facility] [address] [place] [address] Dr. Duy Gallegos IG # 0.03 10e3/ul Normal 0.00-0.03 [facility] Comment on above: Performed By: #### C BC #### [facility] [address] [place] [address] Dr. Duy Gallegos IG % 0.5 % Normal 0.0-0.5 [facility] Comment on above: Performed By: #### C BC #### [facility] [address] [place] [address] Dr. Duy Gallegos LYMPH # 1.4 103/ul Normal 1.2-3.8 [facility] Comment on above: Performed By: #### C BC #### [facility] [address] [place] [address] Dr. Duy Gallegos Lymphocytes/100 WBC (Bld) 23.8 % Normal 20.5-60.0 [facility] Comment on above: Performed By: #### C BC #### [facility] [address] [place] [address] Dr. Duy Gallegos MANUAL DIFF REQ NO Normal [facility] Comment on above: Performed By: #### C BC #### [facility] [address] [place] [address] Dr. Duy Gallegos MCH (RBC) [Entitic mass] 28.8 pg Normal 25.9-34.0 [facility] Comment on above: Performed By: #### C BC #### [facility] [address] [place] [address] Dr. Duy Gallegos MCHC (RBC) [Mass/Vol] 33.8 g/dL Normal 29.9-35.2 [facility] Comment on above: Performed By: #### C BC #### [facility] [address] [place] [address] Dr. Duy Gallegos MCV (RBC) [Entitic vol] 85.2 fL Normal 80.0-94.0 [facility] Comment on above: Performed By: #### C BC #### [facility] [address] [place] [address] Dr. Duy Gallegos MONO # 0.5 103/ul Normal 0.3-0.8 [facility] Comment on above: Performed By: #### C BC #### [facility] [address] [place] [address] Dr. Duy Gallegos Monocytes/100 WBC (Bld) 7.8 % Normal 1.7-12.0 [facility] Comment on above: Performed By: #### C BC #### [facility] [address] [place] [address] Dr. Duy Gallegos NEUT # 3.7 103/ul Normal 1.4-6.5 [facility] Comment on above: Performed By: #### C BC #### [facility] [address] [address] [address] Duy Gallegos Neutrophils/100 WBC (Bld) 61.7 % Normal 43.0-75.0 [facility] Comment on above: Performed By: #### C BC #### [facility] [address] [place] [address] Dr. Duy Gallegos Platelet mean volume (Bld) [Entitic vol] 9.6 fL Normal 9.5-13.5 [facility] Comment on above: Performed By: #### C BC #### [facility] [address] [place] [address] Dr. Duy Gallegos PLT 199 103/ul Normal 150-450 [facility] Comment on above: Performed By: #### C BC #### [facility] [address] [place] [address] Dr. Duy Gallegos RBC 4.59 106/ul Critically low 4.70-6.10 [facility] Comment on above: Performed By: #### C BC #### [facility] [address] [place] [address] Dr. Duy Gallegos WBC 6.0 103/ul Normal 4.0-11.0 [facility] Comment on above: Performed By: #### C BC #### [facility] [address] [place] [address] Dr. Duy Gallegos METHYLMALONIC ACID (MMA)on 0 03-03-2022 Methylmalonic Acid, Serum 232 nmol/L Normal 0-378 [facility] Comment on above: Performed By: #### M MA2 #### [facility] [address] [place] [address] Dr. Duy Gallegos CBC AUTO DIFFon 02-25-2022 BASO # 0.1 103/ul Normal 0.0-0.1 [facility] Comment on above: Performed By: #### C BC #### [facility] [address] [place] [address] Dr. Duy Gallegos Basophils/100 WBC (Bld) 1.3 % Normal 0.2-2.0 [facility] Comment on above: Performed By: #### C BC #### [facility] [address] [place] [address] Dr. Duy Gallegos EO # 0.2 103/ul Normal 0.0-0.7 [facility] Comment on above: Performed By: #### C BC #### [facility] [address] [place] [address] Dr. Duy Gallegos Eosinophils/100 WBC (Bld) 4.8 % Normal 0.9-7.0 [facility] Comment on above: Performed By: #### C BC #### [facility] [address] [place] [address] Dr. Duy Gallegos Erythrocyte distribution width (RBC) [Ratio] 13.9 % Normal 11.0-15.0 [facility] Comment on above: Performed By: #### C BC #### [facility] [address] [place] [address] Dr. Duy Gallegos Hematocrit (Bld) [Volume fraction] 36.2 % Critically low 42.0-54.0 [facility] Comment on above: Performed By: #### C BC #### [facility] [address] [place] [address] Dr. Duy Gallegos Hemoglobin (Bld) [Mass/Vol] 12.2 g/dL Critically low 14.0-18.0 [facility] Comment on above: Performed By: #### C BC #### [facility] [address] [place] [address] Dr. Duy Gallegos IG # 0.01 10e3/ul Normal 0.00-0.03 [facility] Comment on above: Performed By: #### C BC #### [facility] [address] [place] [address] Dr. Duy Gallegos IG % 0.2 % Normal 0.0-0.5 [facility] Comment on above: Performed By: #### C BC #### [facility] [address] [place] [address] Dr. Duy Gallegos LYMPH # 1.3 103/ul Normal 1.2-3.8 [facility] Comment on above: Performed By: #### C BC #### [facility] [address] [place] [address] Dr. Duy Gallegos Lymphocytes/100 WBC (Bld) 29.3 % Normal 20.5-60.0 [facility] Comment on above: Performed By: #### C BC #### [facility] [address] [place] [address] Dr. Duy Gallegos MANUAL DIFF REQ NO Normal [facility] Comment on above: Performed By: #### C BC #### [facility] [address] [place] [address] Dr. Duy Gallegos MCH (RBC) [Entitic mass] 29.5 pg Normal 25.9-34.0 [facility] Comment on above: Performed By: #### C BC #### [facility] [address] [place] [place] [address] Dr. Duy Gallegos MCHC (RBC) [Mass/Vol] 33.7 g/dL Normal 29.9-35.2 [facility] Comment on above: Performed By: #### C BC #### [facility] [address] [place] [address] Dr. Duy Gallegos MCV (RBC) [Entitic vol] 87.7 fL Normal 80.0-94.0 [facility] Comment on above: Performed By: #### C BC #### [facility] [address] [place] [address] Dr. Duy Gallegos MONO # 0.4 103/ul Normal 0.3-0.8 [facility] Comment on above: Performed By: #### C BC #### [facility] [address] [place] [address] Dr. Duy Gallegos Monocytes/100 WBC (Bld) 9.4 % Normal 1.7-12.0 [facility] Comment on above: Performed By: #### C BC #### [facility] [address] [address] [address] Duy Gallegos NEUT # 2.5 103/ul Normal 1.4-6.5 [facility] Comment on above: Performed By: #### C BC #### [facility] [address] [place] [address] Dr. Duy Gallegos Neutrophils/100 WBC (Bld) 55.0 % Normal 43.0-75.0 [facility] Comment on above: Performed By: #### C BC #### [facility] [address] [place] [address] Dr. Duy Gallegos Platelet mean volume (Bld) [Entitic vol] 9.4 fL Critically low 9.5-13.5 [facility] Comment on above: Performed By: #### C BC #### [facility] [address] [place] [address] Dr. Duy Gallegos PLT 142 103/ul Critically low 150-450 [facility] Comment on above: Performed By: #### C BC #### [facility] [address] [place] [address] Dr. Duy Gallegos RBC 4.13 106/ul Critically low 4.70-6.10 [facility] Comment on above: Performed By: #### C BC #### [facility] [address] [place] [address] Dr. Duy Gallegos WBC 4.6 103/ul Normal 4.0-11.0 [facility] Comment on above: Performed By: #### C BC #### [facility] [address] [place] [address] Dr. Duy Gallegos FERRITINon 02-25-2022 Ferritin [Mass/Vol] 274.0 ng/mL Normal 26.0-388.0 [facility] Comment on above: Performed By: #### C BC #### [facility] [address] [place] [address] Dr. Duy Gallegos IRON AND TIBCon 02-25-2022 % SATURATION 33.8 % Normal [facility] Comment on above: Performed By: #### C BC #### [facility] [address] [place] [address] Dr. Duy Gallegos Iron [Mass/Vol] 97.0 ug/dL Normal 65.0-175.0 [facility] Comment on above: Performed By: #### C BC #### [facility] [address] [address] [address] Duy Gallegos TIBC DIRECT 287.0 ug/dL Normal 250.0-450.0 [facility] Comment on above: Performed By: #### C BC #### [facility] [address] [address] [address] Duy Gallegos VIT B12 AND FOLATEon 022 Cobalamin (Vitamin B12) [Mass/Vol] 817.0 pg/mL Normal 193.0-986.0 [facility] Comment on above: Performed By: #### C BC #### [facility] [address] [place] [address] Dr. Duy Gallegos FOLATE 16.90 ng/mL Normal 8.60-58.90 [facility] Comment on above: Performed By: #### C BC #### [facility] [address] [place] [address] Dr. Duy Gallegos XR CHEST 2 Von [...] by: ALEXA MCKENZIE Date: 2021-12-28 13:59 Normal [facility] COVID Quick Testingon 2021 Result Negative [employer] Other Quick Fluon 08-07-2021 FLUAV Ab CF (S) [Titer] Negative [employer] Other FLUBV Ab CF (S) [Titer] Negative [employer] Other COVID Quick Testingon 2020 Result Positive [employer] Other Vital Signs Date Time Vital Sign Value Performing Clinician Facility 12-25-2023 07:50-0400 Diastolic blood pressure 66 mm[Hg] Meghan Lue [facility] 12-25-2023 07:50-0400 Heart rate 57 /min Meghan Lue [facility] 12-25-2023 07:50-0400 Mean blood pressure 91 mm[Hg] Meghan Lue [facility] 12-25-2023 07:50-0400 Systolic blood pressure 143 mm[Hg] Meghan Lue [facility] 12-25-2023 07:49-0400 Heart rate 62 /min Meghan Lue [facility] 12-25-2023 07:49-0400 SaO2% (BldA) [Mass fraction] 98 % Meghan Lue [facility] 12-25-2023 07:48-0400 Body temperature 98.06 [degF] Meghan Lue [facility] 12-25-2023 07:48-0400 Blood Pressure Location Meghan Lue [facility] 12-25-2023 07:48-0400 Diastolic blood pressure 61 mm[Hg] Meghan Lue [facility] 12-25-2023 07:48-0400 Mean blood pressure 95 mm[Hg] Meghan Lue [facility] 12-25-2023 07:48-0400 Systolic blood pressure 164 mm[Hg] Meghan Lue [facility] 12-25-2023 07:48-0400 Respiratory rate 16 /min Meghan Lue [facility] 11-29-2023 10:55-0400 Blood Pressure Location Meghan Lue [facility] 11-29-2023 10:55-0400 Diastolic blood pressure 74 mm[Hg] Meghan Lue [facility] 11-29-2023 10:55-0400 Heart rate 68 /min Meghan Lue [facility] 11-29-2023 10:55-0400 Respiratory rate 16 /min Meghan Lue [facility] 11-29-2023 10:55-0400 Systolic blood pressure 163 mm[Hg] Meghan Lue [facility] 11-28-2023 08:42-0400 Body height 177.8 cm [facility] 11-28-2023 08:42-0400 Body mass index (BMI) [Ratio] 33.2 kg/m2 [facility] 11-28-2023 08:42-0400 Body weight 105 kg [facility] 11-28-2023 08:42-0400 Diastolic blood pressure 80 mm[Hg] [facility] 11-28-2023 08:42-0400 Heart rate 64 /min [facility] 11-28-2023 08:42-0400 Respiratory rate 12 /min [facility] 11-28-2023 08:42-0400 Systolic blood pressure 188 mm[Hg] [facility] 06-16-2023 10:00-0500 Diastolic blood pressure 92 mm[Hg] Meghan Lue [facility] 06-16-2023 10:00-0500 Mean blood pressure 115 mm[Hg] Meghan Lue [facility] 06-16-2023 10:00-0500 Systolic blood pressure 162 mm[Hg] Meghan Lue [facility] 06-16-2023 09:44-0500 Blood Pressure Location Meghan Lue [facility] 06-16-2023 09:44-0500 Body temperature 97.16 [degF] Meghan Lue [facility] 06-16-2023 09:44-0500 Diastolic blood pressure 88 mm[Hg] Meghan Lue [facility] 06-16-2023 09:44-0500 Heart rate 78 /min Meghan Lue [facility] 06-16-2023 09:44-0500 Systolic blood pressure 144 mm[Hg] Meghan Lue [facility] 06-06-2023 17:10-0500 Diastolic blood pressure 70 mm[Hg] Meghan Lue [facility] 06-06-2023 17:10-0500 Heart rate 60 /min Meghan Lue [facility] 06-06-2023 17:10-0500 Respiratory rate 16 /min Meghan Lue [facility] 06-06-2023 17:10-0500 SaO2% (BldA) [Mass fraction] 100 % Meghan Lue [facility] 06-06-2023 17:10-0500 Systolic blood pressure 120 mm[Hg] Meghan Lue [facility] 06-06-2023 17:02-0500 Heart rate 62 /min Meghan Lue [facility] 06-06-2023 17:02-0500 SaO2% (BldA) [Mass fraction] 100 % Meghan Lue [facility] 06-06-2023 17:02-0500 Respiratory rate 16 /min Meghan Lue [facility] 06-06-2023 16:52-0500 Diastolic blood pressure 56 mm[Hg] Meghan Lue [facility] 06-06-2023 16:52-0500 Heart rate 60 /min Meghan Lue [facility] 06-06-2023 16:52-0500 SaO2% (BldA) [Mass fraction] 97 % Meghan Lue [facility] 06-06-2023 16:52-0500 Systolic blood pressure 89 mm[Hg] Meghan Lue [facility] 06-06-2023 16:29-0500 Diastolic blood pressure 89 mm[Hg] Meghan Lue [facility] 06-06-2023 16:29-0500 Systolic blood pressure 154 mm[Hg] Meghan Lue [facility] 06-06-2023 14:00-0500 Blood Pressure Location Meghan Lue [facility] 06-06-2023 14:00-0500 Mean blood pressure 84 mm[Hg] Meghan Lue [facility] 06-06-2023 14:00-0500 Respiratory rate 18 /min Meghan Lue [facility] 05-10-2023 10:54-0500 Blood Pressure Location Meghan Lue [facility] 05-10-2023 10:54-0500 Diastolic blood pressure 76 mm[Hg] Meghan Lue [facility] 05-10-2023 10:54-0500 Heart rate 68 /min Meghan Lue [facility] 05-10-2023 10:54-0500 Respiratory rate 16 /min Meghan Lue [facility] 05-10-2023 10:54-0500 Systolic blood pressure 132 mm[Hg] Meghan Lue [facility] 04-11-2023 11:40-0400 Blood Pressure Location THERESA FLAKO [facility] 04-11-2023 11:40-0400 Diastolic blood pressure 75 mm[Hg] THERESA FLAKO [facility] 04-11-2023 11:40-0400 Heart rate 68 /min THERESA FLAKO [facility] 04-11-2023 11:40-0400 Respiratory rate 16 /min THERESA FLAKO [facility] 04-11-2023 11:40-0400 Systolic blood pressure 134 mm[Hg] THERESA FLAKO [facility] 12-20-2022 10:11-0400 Blood Pressure Location THERESA FLAKO [facility] 12-20-2022 10:11-0400 Diastolic blood pressure 80 mm[Hg] THERESA FLAKO [facility] 12-20-2022 10:11-0400 Heart rate 70 /min THERESA ARRIOLA [facility] 12-20-2022 10:11-0400 Respiratory rate 16 /min THERESA ARRIOLA [facility] 12-20-2022 10:11-0400 Systolic blood pressure 140 mm[Hg] THERESA ARRIOLA [facility] 11-23-2022 08:30-0400 Body height 177.8 cm Gio Ball Other [facility] [employer] Other 11-23-2022 08:30-0400 Body mass index (BMI) [Ratio] 32.42 kg/m2 Gio Ball Other [employer] [facility] [employer] Other 11-23-2022 08:30-0400 Body weight 102.51 kg Gio Ball Other [facility] [employer] Other 11-23-2022 08:30-0400 Diastolic blood pressure 69 mm[Hg] Gio Ball Other [place] [employer] Other 11-23-2022 08:30-0400 Respiratory rate 12 /min Gio Ball Other [employer] Other 11-23-2022 08:30-0400 Systolic blood pressure 162 mm[Hg] Gio Ball Other [employer] Other 08-31-2022 10:00-0500 Body height 177.8 cm Gio Ball Other [employer] Other 08-31-2022 10:00-0500 Body mass index (BMI) [Ratio] 33.43 kg/m2 Gio Ball Other [employer] Other 08-31-2022 10:00-0500 Body weight 105.69 kg Gio Ball Other [employer] Other 08-31-2022 10:00-0500 Diastolic blood pressure 80 mm[Hg] Gio Ball Other [employer] Other 08-31-2022 10:00-0500 Respiratory rate 16 /min Gio [employer] Other [employer] Other 08-31-2022 10:00-0500 SaO2% (BldA) [Mass fraction] 98 % Gio [employer] Other [employer] Other 08-31-2022 10:00-0500 Systolic blood pressure 132 mm[Hg] [employer]io [employer] Other [employer] Other 10-26-2021 09:11-0400 Blood Pressure Location Daniel eKrn Jr. [facility] 10-26-2021 09:11-0400 Diastolic blood pressure 77 mm[Hg] Daniel Kern Jr. [facility] 10-26-2021 09:11-0400 Heart rate 78 /min Daniel Kern Jr. [facility] 10-26-2021 09:11-0400 Respiratory rate 16 /min Daniel Kern Jr. [facility] 10-26-2021 09:11-0400 Systolic blood pressure 181 mm[Hg] Daniel Erlin Alonso [facility] 08-07-2021 11:00-0500 Body height 177.8 cm Gina Starks Other [employer] Other 08-07-2021 11:00-0500 Body mass index (BMI) [Ratio] 30.13 kg/m2 Gina Starks Other [employer] Other 08-07-2021 11:00-0500 Body temperature 101 [degF] Gina Starks Other [employer] Other 08-07-2021 11:00-0500 Body weight 95.26 kg Gina Starks Other [employer] Other 08-07-2021 11:00-0500 Respiratory rate 18 /min Gina Starks Other [employer] Other 08-07-2021 11:00-0500 SaO2% (BldA) [Mass fraction] 97 % Gina Starks Other [employer] Other 05-24-2021 18:15-0500 Body height 177.8 cm Sybil Lee Other [employer] Other 05-24-2021 18:15-0500 Body mass index (BMI) [Ratio] 30.85 kg/m2 Sybil Lee Other [employer] Other 05-24-2021 18:15-0500 Body temperature 96.9 [degF] Sybil Lee Other [employer] Other 05-24-2021 18:15-0500 Body weight 97.52 kg Sybil Lee Other [employer] Other 05-24-2021 18:15-0500 SaO2% (BldA) [Mass fraction] 91 % Sybil Lee Other [employer] Other Encounters Encounter Date Encounter Type Care Provider Facility Start: 01-12-2024 ambulatory Meghan AmandeepReinier Zafare Facility:[facility] Start: 12-25-2023 End: 12-25-2023 ambulatory Meghan MReinier Daryl Facility:[facility] Start: 12-25-2023 End: 12-25-2023 Patient encounter procedure Meghan Brito [facility] Start: 11-29-2023 End: 01-03-2024 Pre-admission assessment Meghan Brito [facility] Start: 11-29-2023 End: 11-29-2023 ambulatory Meghan Tucker Lue Facility:[facility] [place] Start: 11-29-2023 End: 11-29-2023 Patient encounter procedure Meghan Brito [facility] Start: 11-28-2023 End: 11-28-2023 ambulatory [facility] Work Phone: Start: 11-28-2023 End: 11-28-2023 Encounter for general adult medical examination without abnormal findings [facility] Start: 11-28-2023 End: 11-28-2023 Patient encounter procedure [facility] Physician [facility] Work Phone: Start: 11-24-2023 Non-patient / Non-visit [facility] Physician [facility] [employer] Work Phone: Start: 07-31-2023 End: 07-31-2023 ambulatory Meghankevin Zafare Facility:[facility] Start: 07-31-2023 End: 07-31-2023 Patient encounter procedure Meghan Brito [facility] Start: 06-30-2023 End: 06-30-2023 ambulatory Meghan M. Lue Facility:[facility] Start: 06-30-2023 End: 06-30-2023 Lab Drop off Meghan Brito [facility] Start: 06-30-2023 End: 06-30-2023 ambulatory Meghan Bernstein. Charismae Facility:[facility] Start: 06-30-2023 End: 06-30-2023 Patient encounter procedure Meghan Brito [facility] Start: 06-22-2023 End: 06-22-2023 ambulatory Gio Jasso Other [employer] Other Start: 06-22-2023 Telephone encounter Gio Ball FP [facility] Start: 06-21-2023 Telephone encounter Gio Ball FP [facility] Start: 06-21-2023 End: 06-21-2023 ambulatory Meghan Brito [facility] [employer] Other Start: 06-21-2023 End: 06-21-2023 Patient encounter procedure Meghan Brito [facility] Start: 06-20-2023 End: 06-20-2023 ambulatory Gio Jasso Other [employer] Other Start: 06-20-2023 Telephone encounter Gio Ball FP [facility] Start: 06-18-2023 End: 06-18-2023 ambulatory Gio Jasso Other [employer] Other Start: 06-18-2023 Telephone encounter Gio BRITTON [facility] Start: 06-16-2023 End: 06-16-2023 ambulatory Meghan M. Lue Facility:[facility] Start: 06-16-2023 End: 06-16-2023 Patient encounter procedure Meghan M. Lue [facility] Start: 06-15-2023 End: 06-15-2023 ambulatory Meghan M. Lue Facility:[facility] Start: 06-15-2023 End: 06-15-2023 Patient encounter procedure Meghan M. Lue [facility] Start: 06-14-2023 End: 06-14-2023 ambulatory Meghan M. Lue Facility:[facility] Start: 06-14-2023 End: 06-14-2023 Patient encounter procedure Meghan M. Lue [facility] Start: 06-06-2023 End: 06-07-2023 ambulatory DUY GALLEGOS MD Facility:[id number] Start: 06-06-2023 End: 06-06-2023 Admission to same day surgery center Meghan M. Lue [facility] Start: 06-06-2023 End: 06-06-2023 ambulatory Meghan M. Lue Facility:[facility] Start: 06-05-2023 End: 06-05-2023 ambulatory Gio Jasso Other [employer] Other Start: 06-05-2023 Telephone encounter Gio BRITTON [facility] Start: 05-10-2023 End: 05-10-2023 ambulatory Meghan M. Lue Facility:[facility] Start: 05-10-2023 End: 05-10-2023 Patient encounter procedure Meghan Brito [facility] Start: 04-28-2023 ambulatory Meghan Brito Facility:[facility] Start: 04-27-2023 End: 04-27-2023 ambulatory Gio Jasso Other [employer] Other Start: 04-27-2023 Telephone encounter Gio Mao REBA [facility] Start: 04-11-2023 End: 04-11-2023 ambulatory THERESA ARRIOLA Facility:[facility] Start: 04-11-2023 End: 04-11-2023 Patient encounter procedure THERESA ARRIOLA [facility] Start: 04-04-2023 End: 04-04-2023 ambulatory Gio Jasso Other [employer] Other Start: 04-04-2023 Telephone encounter Gio Mao REBA [facility] Start: 04-03-2023 End: 04-03-2023 ambulatory Theresa Arriola Facility:[facility] Start: 04-03-2023 End: 04-03-2023 ambulatory DO Gio Jasso Work Phone: [facility] Work Phone: Start: 04-03-2023 End: 04-03-2023 Patient encounter procedure DO Gio Ball Work Phone: [facility] [place] Work Phone: Start: 12-20-2022 End: 12-20-2022 Patient encounter procedure THERESA ARRIOLA [facility] Start: 12-13-2022 End: 12-13-2022 ambulatory Gio Jasso Other [employer] Other Start: 12-13-2022 Telephone encounter Gio Jasso [facility] Start: 12-12-2022 End: 12-12-2022 ambulatory Gio Jasso Other [employer] Other Start: 12-12-2022 Telephone encounter Gio Jasso [facility] Start: 11-23-2022 End: 11-23-2022 ambulatory Gio Jasso Other [employer] Other Start: 11-23-2022 Encounter for genera l adult medical examination without abnormal findings Gio Jasso [facility] Start: 11-23-2022 Periodic preventive med est patient 65yrs& older Gio Jasso [facility] Start: 11-07-2022 End: 11-08-[address] GIO JASSO Facility:[facility] Start: 08-31-2022 End: 08-31-2022 ambulatory Gio Jasso Other [employer] Other Start: 08-31-2022 Office outpatient vi sit 25 minutes Gio Jasso [facility] Start: 08-26-2022 End: 08-28-2022 Evaluation and management of inpatient DR DARIUS GIANG . Facility:[facility] Start: 05-18-2022 End: 05-19-[address] GIO JASSO Facility:[facility] Start: 02-25-2022 End: 02-26-[address] GIO JASSO Facility:[facility] Start: 01-07-[address] GIO JASSO Facili ty:[facility] Start: 12-28-2021 End: 12-29-[address] GIO JASSO Facility:[facility] Start: 11-18-2021 Adult health examination Gio Jasso Other [employer] Other Start: 10-26-2021 End: 10-26-2021 Patient encounter procedure Daniel Kern Jr. [facility] Start: 08-07-2021 End: 08-07-2021 ambulatory Gina Starks Other [employer] Other Start: 08-07-2021 Office outpatient vi sit 15 minutes Gina Starks [facility] Start: 05-24-2021 End: 05-24-2021 ambulatory Sybil Rosa Other [employer] Other Start: 05-24-2021 Office outpatient vi sit 15 minutes Sybil Rosa [facility] Procedures Date Procedure Procedure Detail Performing Clinician Start: 07-27-2023 Cystoscopy Meghan Brito Start: 06-06-2023 Prostate biopsy samp le (specimen) Meghan Daryl Start: 04-03-2023 MR prostate wo/w con DO [...] of Treatment Date Care Activity Detail Author [facility] Immunizations Immunization Date Immunization Notes Care Provider Renetta thacker 05-25-2023 influenza virus vaccine, unspecified formulation [facility] 05-25-2023 influenza, high dose seasonal, preservative-free Gio Jasso Other [facility] [employer] Other 05-25-2023 pneumococcal polysaccharide vaccine, 23 valent Gio Jasso Other [facility] 02-24-2022 influenza virus vaccine, unspecified formulation THERESA ARRIOLA [facility] 02-24-2022 influenza, high dose seasonal, preservative-free Gio Jasso Other [employer] Other 11-18-2021 pneumococcal conjuga te vaccine, 13 valent Gio Jasso Other [facility] 09-01-2021 COVID-19 Vaccine Moderna - Documentation Purposes Only Gio Jasso Other [facility] 06-26-2021 pneumococcal conjuga te vaccine, 13 valent Gio Jasso Other [facility] 09-02-2020 SARS-CoV-2 (COVID-19 ) Ad26 vaccine, recombinant Daniel Kern Reinier [facility] 05-03-2019 influenza virus vaccine, split virus (incl. purified surface antigen) Gio Jasso Other [employer] [facility] [employer] Other 05-03-2019 influenza virus vaccine, unspecified formulation [facility] 05-09-2018 influenza virus vaccine, split virus (incl. purified surface antigen) Gio Jasso Other [employer] [facility] [employer] Other 05-09-2018 influenza virus vaccine, unspecified formulation [facility] Payers Date Payer Category Payer Medicare [id number] 2023 Unknown [id number] 2023 Medicare [id number] 1959 Self-pay 1959 Unknown [id number] 2.16. [id number] 1956 Unknown [id number] 2.16.84 0.1.398442.3.579.2.593 1956 Unknown [id number] 2.16.84 0.1.143881.3.579.2.593 1956 Unknown [id number] 2.16.84 0.1.855955.3.579.2.593 1956 Unknown [id number] 2.16.84 0.1.199556.3.579.2.593 1956 Unknown [id number] 2.16.84 0.1.479284.3.579.2.593 1956 Unknown [id number] 2.16.84 0.1.122096.3.579.2.593 1956 Unknown [id number] 2.16.8 40.1.988720.3.579.2.159 1956 Unknown [id number] 2.16.8 40.1.831065.3.579.2.727 1956 Unknown [id number] 2.16.8 40.1.378271.3.579.2.727 1956 Unknown [id number] 2.16.8 40.1.623722.3.579.2.727 1956 Unknown [id number] 2.16.8 40.1.628069.3.579.2.727 1956 Unknown [id number] 2.16.8 40.1.703871.3.579.2.727 1956 Unknown [id number] 2.16.8 40.1.753369.3.579.2.727 1956 Unknown [id number] 2.16.8 40.1.855400.3.579.2.727 1956 Unknown [id number] 2.16.8 40.1.130678.3.579.2.727 1956 Unknown [id number] 2.16.8 40.1.242914.3.579.2.727 1956 Unknown [id number] 2.16.8 40.1.346823.3.579.2.727 1956 Unknown [id number] 2.16.8 40.1.315141.3.579.2.727 1956 Unknown [id number] 2.16.8 40.1.730318.3.579.2.727 1956 Unknown [id number] 2.16.8 40.1.330033.3.579.2.727 1956 Unknown [id number] 2.16.8 40.1.137396.3.579.2.727 Medicare Private Health Insurance Unknown [id number] 2.16.8 40.1.026716.3.579.2.531 Social History Date Type Detail Facility Start: 10-26-2021 Tobacco smoking status Heavy t obacco smoker (finding) [facility] [employer] Other Sex Assigned At Male [facility] [employer] Other Start: 12-20-2022 End: 05-10-2023 Tobacco smoking status Ex-smoker (finding) [facility] Start: 06-16-2023 End: 11-29-2023 Tobacco smoking status Never [facility] [facility] Start: 12-16-2020 Tobacco smoking stat [facility] Smoker (finding) [facility] Start: 1955 Sex Assigned At Male [facility] Functional Status Date Assessment Result Facility 12-25-2023 Functional Status No [facility] 11-29-2023 Functional Status N/A [facility] 07-31-2023 Functional Status N/A [facility] 06-16-2023 Functional Status N/A [facility] 05-16-2023 Functional Status N/A [facility] 05-10-2023 Functional Status N/A [facility] 04-11-2023 Functional Status N/A [facility] 12-20-2022 Functional Status N/A [facility] Clinical Notes 05-24-2021 to 12-13-2023 Note Date & Type Note Facility 12-13-2023 Note [id number] [facility] 11-29-2023 Hospital Discharg e instructions Patient Education 11/29/2023 11:20:14 Transurethral Resection of the Prostate, Care After Transurethral Resection of the Prostate, Care After The following information offers guidance on how to care for yourself after your procedure. Your health care provider may also give you more specific instructions. If you have problems or questions, contact your health care provider. What can I expect after the procedure? After the procedure, it is common to have: Mild pain in your lower abdomen. Soreness or mild discomfort in your penis or when you urinate. This is from having the catheter inserted during the procedure. A sudden urge to urinate (urgency). A need to urinate often. A small amount of blood in your urine. You may notice some small blood clots in your urine. These are normal. Follow these instructions at home: Medicines Take geod-apl-bucglvr and prescription medicines only as told by your health care provider. If you were prescribed an antibiotic medicine, take it as told by your health care provider. Do not stop taking the antibiotic even if you start to feel better. Activity Rest as told by your health care provider. Avoid sitting for a long time without moving. Get up to take short walks every 1 2 hours. This is important to improve blood flow and breathing. Ask for help if you feel weak or unsteady. You may increase your physical activity gradually as you start to feel better. Do not drive or operate machinery until your health care provider says that it is safe. Do not ride in a car for long periods of time, or as told by your health care provider. Avoid intense physical activity for as long as told by your health care provider. Do not lift anything that is heavier than 10 lb (4.5 kg), or the limit that you are told, until your health care provider says that it is safe. Do not have sex until your health care provider approves. Return to your normal activities as told by your health care provider. Ask your health care provider what activities are safe for you. Preventing constipation You may need to take these actions to prevent or treat constipation: Drink enough fluid to keep your urine pale yellow. Take zzsn-wgi-jjfubrj or prescription medicines. Eat foods that are high in fiber, such as beans, whole grains, and fresh fruits and vegetables. Limit foods that are high in fat and processed sugars, such as fried or sweet foods. General instructions Do not strain when you have a bowel movement. Straining may lead to bleeding from the prostate. This may cause blood clots and trouble urinating. Do not use any products that contain nicotine or tobacco. These products include cigarettes, chewing tobacco, and vaping devices, such as e-cigarettes. If you need help quitting, ask your health care provider. If you go home with a tube draining your urine (urinary catheter), care for the catheter as told by your health care provider. Wear compression stockings as told by your health care provider. These stockings help to prevent blood clots and reduce swelling in your legs. Keep all follow-up visits. This is important. Contact a health care provider if: You have signs of infection, such as: ?Fever or chills. ?Urine that smells very bad. ?Swelling around your urethra that is getting worse. ?Swelling in your penis or testicles. You have difficulty urinating. You have pain that gets worse or does not improve with medicine. You have blood in your urine that does not go away after 1 week of resting and drinking more fluids. You have trouble having a bowel movement. You have trouble having or keeping an erection. No semen comes out during orgasm (dry ejaculation). You have a urinary catheter in place, and you have: ?Spasms or pain. ?Problems with your catheter or your catheter is blocked. Get help right away if: You are unable to urinate. You are having more blood clots in your urine instead of fewer. You have: ?Large blood clots. ?A lot of blood in your urine. ?Pain in your back or lower abdomen. You have difficulty breathing or shortness of breath. You develop swelling or pain in your leg. These symptoms may be an emergency. Get help right away. Call 911. Do not wait to see if the symptoms will go away. Do not drive yourself to the hospital. Summary After the procedure, it is common to have a small amount of blood in your urine. Follow restrictions about lifting and sexual activity as told by your health care provider. Ask what activities are safe for you. Keep all follow-up visits. This is important. This information is not intended to replace advice given to you by your health care provider. Make sure you discuss any questions you have with your health care provider. Document Revised: 03/08/2022 Document Reviewed: 03/08/2022 [employer] Patient Education 2022 WhenSoon. 11/29/2023 11:20:13 Transurethral Resection of the Prostate Transurethral Resection [...] light, a camera, and an electric cutting edge (resectoscope) is passed through the urethra and into the prostate. The opening of the urethra is at the end of the penis. Tell a health care provider about: Any allergies you have. All medicines you are taking, including vitamins, herbs, eye drops, creams, and hjip-ugq-vdyapwv medicines. Any problems you or family members [...] provider tells you to take them. Taking iqot-tyr-ixpuisi medicines, vitamins, herbs, and supplements. Surgery safety Ask your health care provider what steps will be taken to help prevent infection. These steps may include: Removing hair at the surgery site. Washing skin with a germ-killing soap. Taking antibiotic medicine. General instructions Do not use any products that contain nicotine or tobacco for at least 4 weeks before the procedure. These products include cigarettes, chewing tobacco, and vaping [...] blood oxygen level will be monitored until you leave the hospital or clinic. You will be [...] provider. Document Revised: 03/08/2022 Document Reviewed: 03/08/2022 [employer] Patient Education 2022 WhenSoon. Follow Up Care 08/02/2023 09:34:46 With:Daryl HAMILTON, Meghan Bernstein., URL, URO Address: [place] [address]- [phone] When: Unknown [facility] 07-31-2023 Evaluation + Plan note Extrac rina from: Title:EU - Clinic HOPD Note Author:Meghan Brito MD. Date:07/31/23 Impression and Plan Assessment and Plan: Diagnosis: BPH with urinary obstruction (WJH33-XG N40.1, Discharge, Medical), Pelvic lymphadenopathy (KBC48-CZ R59.0, Working, Medical), Chronic prostatitis (MLB53-ML N41.1, Discharge, Medical), Feeling of incomplete bladder emptying (CQF14-TO R39.14, Discharge, Medical), Gross hematuria (ICD10- CM R31.0, Discharge, Medical). Assessment and Plan: Diagnosis: BPH with urinary obstruction (CKB09-WF N40.1, Discharge, Medical), Chronic prostatitis (ZOG35-PB N41.1, Discharge, Medical), Feeling of incomplete bladder emptying (ICR23-AJ R39.14, Discharge, Medical), Gross hematuria (SCO04-KA R31.0, Discharge, Medical), Pelvic lymphadenopathy (WUP32-AL R59.0, Working, Medical). 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 Gross hematuria - after [facility] CTU 07/05/23 at [facility] - neg for upper tract filling [...] in 4 to 5 months with [facility]02-05-2024 Hospital Discharge instructions Patient Education 07/31/2023 09:05:54 [...] including vitamins, herbs, eye drops, creams, and hyyv-axs-wiisouv medicines. Any problems you or family members [...] provider tells you to take them. ?Taking ptum-csn-arlfjrl medicines, vitamins, herbs, and supplements. Follow your [...] provider. Document Revised: 09/08/2021 Document Reviewed: 09/08/2021 [employer] Patient Education 2022 WhenSoon. 07/31/2023 09:05:54 Transurethral Resection of the Prostate [...] including vitamins, herbs, eye drops, creams, and vasc-mrq-dmocfre medicines. Any problems you or family members [...] provider tells you to take them. Taking zqil-cbh-oeazpne medicines, vitamins, herbs, and supplements. Surgery safety [...] provider. Document Revised: 03/08/2022 Document Reviewed: 03/08/2022 [employer] Patient Education 2022 WhenSoon. 07/31/2023 09:05:54 [facility] - Cystoscopy Discharge Instructions [...] Up Care 06/30/2023 10:04:12 With:Meghan Brito Address: [address] [place], [place] [address]- [phone] Business (1) When: Unknown Comments:Office to schedule follow up in 3-4 months or call sooner for procedure (pt knows will be done by partner/referred out if during leave) [facility]02-05-2024 Note [id number] NoteCystoscopy ? Voiding after the procedure: [...] including vitamins, herbs, eye drops, creams, and rqgs-fqc-ykqsvij medicines. ? Any problems you or family [...] tells you to take them. ? Taking iyfm-yzv-gqsndnb medicines, vitamins, herbs, and supplements. ? Follow [...] at least 4 week (more content not included)...[facility]12-28-2023 Evaluation note* Encounter Date Diagnosis Assessment Notes Treatment Notes Treatment Clinical Notes May, Simple chronic bronchitis (ICD-10 - J41.0) [employer] Other 12-27-2023 Evaluation note* Encounter Date Diagnosis Assessment Notes Treatment Notes Treatment Clinical Notes May, Simple chronic bronchitis (ICD-10 - J41.0) [employer] Other 12-26-2023 Evaluation note* Encounter Date Diagnosis Assessment Notes Treatment Notes Treatment Clinical Notes May, Simple chronic bronchitis (ICD-10 - J41.0) [employer] Other 12-22-2023 Hospital Discharge instructions Patient Education [...] treatment? Where to find more information The [place] [employer]: www.cancer.org [place] [employer] Association: www.auanet.org Contact a health care [...] provider. Document Revised: 12/06/2021 Document Reviewed: 12/06/2021 [employer] Patient Education 2022 WhenSoon. Follow Up Care 06/16/2023 08:30:52 With:Meghan Brito MD, URL, URO Address: [address] [place] [phone] When: Unknown Comments:6 mos w/ CT and PSA [facility] 12-20-2023 Hospital Discharge instructions Follow Up Care 06/14/2023 08:28:10 With:Meghan Brito MD, URL, URO Address: When: Unknown [facility] 12-12-2023 Hospital Discharge instructions Patient Education 06/06/2023 16:52:41 EU - Transrectal Ultrasound of the Prostate with US guided biopsy Discharge Instructions (CUSTOM) Transperineal?Biopsy of the Prostate Discharge Instructions After the procedure, it is common to have: Pain and discomfort near your rectum, especially while sitting. Destrehan-colored urine due to small amounts of blood [...] Brito Address:Unknown When: Unknown Comments:Keep scheduled appointment [facility]12-12-2023 Evaluation + Plan noteExtracted from: Title:EU -transperineal prostate biopsy Author:Dedrick valentine MD, Meghan Tucker Date:06/06/23 Impression and Plan Diagnosis Elevated PSA (KGA99-CL R97.20, Discharge, Medical). Diagnosis Elevated PSA (XPN18-TO R97.20, Discharge, Medical). Future Appointments Appointment Date:06/14/2023 10:30:00 AM Scheduled Provider:Meghan Brito MD Location:[facility] Appointment Type:URO Office Visit [facility]11-20-2023 Note [id number] Hospital Discharge instructions Follow Up Care 05/10/2023 11:27:04 With:Meghan Brito MD, URL, URO Address: [address] [place] [address] [phone] When: Unknown [facility] 11-15-2023 Hospital Discharge instructions Patient Education 05/10/2023 [...] treatment? Where to find more information The [place] [employer]: www.cancer.org [place] U[employer] Association: www.auanet.org Contact a health care [...] provider. Document Revised: 12/06/2021 Document Reviewed: 12/06/2021 [employer] Patient Education 2022 WhenSoon. 05/10/2023 11:11:23 Benign Prostatic Hyperplasia Benign Prostatic [...] urethra. Follow these instructions at home: Take xhar-pmi-jyywwxw and prescription medicines only as told by [...] provider. Document Revised: 12/29/2021 Document Reviewed: 12/29/2021 [employer] Patient Education 2022 WhenSoon. Follow Up Care 04/12/2023 09:16:25 With:Daryl HAMILTON, LOGAN Villalpando, URO Address: When: Unknown Comments:Sched Transperineal Bx of Prostate [facility] [employer] 11-02-2023 Evaluation note* Encounter Date Diagnosis Assessment Notes Treatment Notes Treatment Clinical Notes Apr, Primary hypertension (ICD-10 - I10) [employer] Other 10-17-2023 Hospital Discharge instructions Patient Education [...] treatment? Where to find more information The [place] [employer] Society: www.cancer.org [place] U[employer] Association: www.auanet.org Contact a health care [...] provider. Document Revised: 12/06/2021 Document Reviewed: 12/06/2021 [employer] Patient Education 2022 WhenSoon. Follow Up Care 03/16/2023 16:12:09 With:THERESA ARRIOLA PA-C, URL Address: [address] [place] [address] [phone] When: Unknown Comments:f/u with in 1 month w/ PSA and [facility]X [facility] 10-10-2023 Evaluation note* Encounter Date Diagnosis Assessment Notes Treatment Notes Treatment Clinical Notes Mar, Primary hypertension (ICD-10 - I10) [employer] Other 06-27-2023 Hospital Discharge instructions Patient Education [...] treatment? Where to find more information The [place] [employer] Society: www.cancer.org [place] [employer] Association: www.auanet.org Contact a health care [...] provider. Document Revised: 12/06/2021 Document Reviewed: 12/06/2021 [employer] Patient Education 2022 WhenSoon. Follow Up Care 10/03/2022 14:27:57 With:FLAKO ELLIOTT, THERESA Merida, URL Address: [address] [place] [address] When: Unknown Comments:Sched [facility] MDX and MRI of Prostate. [facility] 06-20-2023 Evaluation note* Encounter Date Diagnosis Assessment Notes Treatment Notes Treatment Clinical Notes Nov, Cigarette nicotine dependence in remission (ICD-10 - F17.211) Started at age 19, quit age 66, 1ppd. LDCT w/o nodules - 11/2022 [employer] Other 06-19-2023 Evaluation note* Encounter Date Diagnosis Assessment Notes Treatment Notes Treatment Clinical Notes Nov, Simple chronic bronchitis (ICD-10 - J41.0) Nov, Cigarette nicotine dependence in remission (ICD-10 - F17.211) Started at age 19, quit age 66, 1ppd. LDCT w/o nodules - 11/2022 [employer] Other 05-31-2023 Evaluation note* Encounter Date Diagnosis [...] Z12.5) Yearly MARIZA and PSA, f/u Urology [employer] Other 03-08-2023 Evaluation note* Encounter Date Diagnosis [...] in remission (ICD-10 - F17.211) Continue abstinence [employer] Other 05-03-2022 Hospital Discharge instructions Patient Education [...] urethra. Follow these instructions at home: Take ywwa-gdr-yzprioo and prescription medicines only as told by [...] 06/12/2006 Document Revised: 05/07/2019 Document Reviewed: 07/17/2017 [employer] Patient Education 2019 WhenSoon. Follow Up Care 10/22/2020 09:07:58 With:Erlin Alonso MD, Daniel Tse URO Address: [facility] [address] , [place] [address]- When:10/26/2022 Comments:with PSA [facility] 02-12-2022 Evaluation note* Encounter Date Diagnosis Assessment [...] Patient care instructions given in writting by [facility] Care At Home document [employer] Other 11-29-2021 Evaluation note* Encounter Date Diagnosis Assessment Notes Treatment Notes Treatment Clinical Notes Apr, Contact with and (suspected) exposure to other viral communicable diseases (ICD-10 - Z20.828) Apr, COVID-19 (ICD-10 - U07.1) Today you tested positive for the COVID virus. This mean you need to follow all CDC quarantine guidelines found at coronavirus.[place].go v. It is important to rest, increase [...] Patient care instructions given in writting by [facility] document. [employer] Other Evaluation + Plan note Future Appointments Appointment Date:11/01/2022 08:15:00 AM Scheduled Provider:Daniel Kern Jr., MD Location:[facility] Appointment Type:URO Office Visit Diagnostic Tests Pending * PSA Total 10/26/21 [facility] evaluation + Plan note Future Appointments Appointment Date:04/28/2023 08:15:00 AM Scheduled Provider:Meghan Brito MD Location:[facility] Appointment Type:URO Office Visit Diagnostic Tests Pending * PSA Total 04/11/23 [facility] evaluation + Plan note Future Appointments Appointment Date:06/06/2023 02:30:00 PM Scheduled Provider: Location:[facility] Appointment Type:Surgery FT Appointment Date:06/14/2023 10:30:00 AM Scheduled Provider:Meghan Brito MD Location:[facility] Appointment Type:URO Office Visit [facility] evaluation + Plan note Future Appointments Appointment Date:06/15/2023 03:30:00 PM Scheduled Provider:Meghan Brito MD Location:[facility] Appointment Type:URO Office Visit [facility] evaluation + Plan note Future Appointments Appointment Date:06/21/2023 08:45:00 AM Scheduled Provider:Meghan Brito MD Location:[facility] Appointment Type:URO Office Visit [facility] [place] Evaluation + Plan note Future Appointments Appointment Date:06/30/2023 09:15:00 AM Scheduled Provider: Location:[facility] Appointment Type:URO Nurse Visit Diagnostic Tests Pending * PSA Free & Total 06/16/23 [facility] Evaluation + Plan note Future Appointments Appointment Date:06/30/2023 09:15:00 AM Scheduled Provider: Location:[facility] Appointment Type:URO Nurse Visit [facility] evaluation + Plan note Future Appointments Appointment Date:07/31/2023 08:30:00 AM Scheduled Provider: Location:[facility] Appointment Type:Urology FT [facility] Evaluation + Plan note Future Appointments Appointment Date:07/31/2023 08:30:00 AM Scheduled Provider: Location:[facility] Appointment Type:Urology FT Diagnostic Tests Pending * Urine Cytology ([facility]) [facility]ments Appointment Date:12/25/2023 07:30:00 AM Scheduled Provider: Location:[facility] Appointment Type:Surgical PAT FT Appointment Date:01/02/2024 08:00:00 AM Scheduled Provider: Location:[facility] Appointment Type:Surgery FT [facility] evaluation + Plan note Future Appointments Appointment Date:01/02/2024 08:00:00 AM Scheduled Provider: Location:[facility] Appointment Type:Surgery FT Appointment Date:01/12/2024 08:15:00 AM Scheduled Provider:Meghan Brito MD Location:[facility]ment [facility] assessment information available [facility] Work Phone: Evaluation noteNo InformationNort [employer] Other Evaluation note* Diagnosis Onset Date Resolution Status Anemia acute Benign prostatic hyperplasia with lower urinary tract symptoms acute Chronic bronchitis acute Chronic kidney disease acute Elevated PSA acute Hypercholesterolemia acute Hypertension acute Nicotine addiction acute Screening PSA (prostate specific antigen) acute Welcome to Medicare preventive visit noneactive [facility] Work Phone: [facility] general Narrative - Reported* Type Description Date Medical History high blood pressure Medical History high cholesterol [employer] Other [facility] general Narrative - Reported* Type Description Date [...] HERNIA 1989 Hospitalization History SEE SURGICAL HX [employer] Other [facility] general Narrative - Reported* Type Description Date [...] HERNIA 1989 Hospitalization History SEE SURGICAL HX [employer] Other Hospital course Narrative No data available for this section [facility] [place] [facility] Discharge instructions No data available for this section [facility] [place] progress note No data available for this section [facility] Nas Summary Purpose Family History Relationship Condition Age at Onset Recorded Date/T sharona Not Specified Diabetes mellitus Unknown father Myocardial infarction Unknown sister Cerebrovascular accident (CVA) Unknown sister Diabetes mellitus Unknown Relationship Condition Age at Onset Recorded Date/T sharona Not Specified Diabetes mellitus Unknown father Myocardial infarction Unknown sister Cerebrovascular accident (CVA) Unknown sister Diabetes mellitus Unknown father History of stroke Unknown Unknown Not Specified History of stroke Unknown Advance Directives Advance Directive Response Recorded Date/ Time Advance Directives No March 27, 2020 2:53pm Chief Complaint and Reason for Visit Chief Complaint N40.1 R97.20 Chief Complaint Wellness Reason for Visit Anemia Benign prostatic hyperplasia with lower urinary tract symptoms Chronic bronchitis Chronic kidney disease Elevated PSA Hypercholesterolemia Hypertension Nicotine addiction Screening PSA (prostate specific antigen) Welcome to Medicare preventive visit Additional Source Comments REASON FOR VISIT (unrecogniz [...] content) DATE CREATED AUTHOR 11/08/2022 [facility] DATE CREATED AUTHOR AUTHOR'S ORGANIZ ATION 04/13/2023 [facility] DATE CREATED AUTHOR AUTHOR'S ORGANIZ ATION 06/17/2023 [facility] DATE CREATED AUTHOR AUTHOR'S ORGANIZ ATION 12/25/2023 [facility] DATE CREATED AUTHOR AUTHOR'S ORGANIZ ATION 12/26/2023 [facility] DATE CREATED AUTHOR AUTHOR'S ORGANIZ ATION 01/09/2024 [facility] Patient Care team informatio n (unrecognized section and content) Personnel Name: GIO JASSO DO Address: Address: [address], [place] [address] Team Status: Active Member Role Status Dates Gio Jasso DO Primary Care Provider Active Team Status: Active Member Role Status Dates Gio Jasso DO Primary Care Provide r, Attending Provider Active Start: November 24, 2023 Team Status: Inactive Member Role Status Dates Gio Jasso DO Primary Care Provide r, Attending Provider Active Start: November 28, 2023 End: November 28, 2023 Team Status: Inactive Member Role Status Dates Gio Jasso , Primary Care Provider Active Theresa Arriola PA-C [...] BE BASED ON THE PRIMARY CLINICAL RECORDS. [employer] provides no warranty or guarantee of the accuracy or completeness of information in this document.
--- NOTE | 2024-01-12 07:00 | NM_ITS ---
Patient Name: RUSSELL SANCHEZ MR#: [id number] : 1955 Exam Date: 01/12/2024 Ordering Doctor: Ciarra Bhardwaj RADIOLOGY REPORT PROCEDURE: NM SANDRA PERF SPECT REST STR COMPARISON: None. INDICATIONS: PRECORDIAL PAIN, PRE PROCEDURE CARDIOVASCULAR EXAM TECHNIQUE: Exam Description: Stress/Rest one day protocol gated SPECT Rest Imagin.0 mCi Tc-99m Cardiolite IV on 01/12/2024 Stress Imaging 30.6 mCi Tc-99m Cardiolite IV on 01/12/2024 Exercise Protocol: Luciano Heart Rate (bpm): Rest: 58 Max: 139 PMHR: 90 Blood Pressure: Rest: 130/70 Max: 188/88 Exercise Time: Minutes: 4 Seconds: 08 Stage Reached: Stage: 2 Mets 4.6 Symptoms: Rest and peak stress ECG findings were pending and the exercise portion of the study was pending per attending physician Dr. LEVI . For more details please see separate cardiac stress test report. FINDINGS: QUALITY OF STUDY: Excellent. PERFUSION DEFECT: LOCATION: Basal inferior. Mid-inferior. Apical inferior. SIZE: Medium (3-4 segments). SEVERITY: Moderate. TYPE: Persistent. WALL MOTION: Normal. LV SIZE: Enlarged; EDV 216 mL. TID / TCD: None; 0.9 LVEF: Abnormal. Calculated EF 48%. SUMMARY: Myocardial perfusion imaging study has ABNORMAL findings. CONCLUSION: 1. No acute or reversible ischemia. 2. Fixed inferior wall perfusion defect versus diaphragm attenuation artifact. 3. Left ventriculomegaly and low ejection fraction. 4. Normal wall motion. Dictated by: Beck Carroll M.D. on 01/12/2024 at 13:22 Approved by: Beck Carroll M.D. on 01/12/2024 at 13:26
--- NOTE | 2024-01-12 09:38 | PC.NURSE ---
Nursing Note Cardiac Stress Test Reviewed: Medication, allergies and patient history reviewed. Stress Test: [x ] Patient tolerated stress test well. [ ] Patient unable to tolerate walking on treadmill. Switched to Lexiscan stress test. [x ] No chest pain noted per patient [ ] Chest pain that resolved prior to leaving stress lab. [ ] No dyspnea noted. [ x] Dyspnea that resolved prior to leaving stress lab. [x ] Patient left stress lab asymptomatic and hemodynamically stable. [ ] Patient taken to the Emergency Room due to non-resolving symptoms following stress test. [x ] Patient achieved target heart rate. [ ] Patient unable to achieve target heart rate. [ ] Aminophylline administered as reversal agent to Lexiscan (Regadenoson). [ ] Nitro administered. Nursing Comments: Patient complained of left leg pain and shortness of breath during the test. Patient states both are normal for him and was able to complete the exercise portion of the exam. Patient states he has COPD and often has difficulty breathing with exertion. Patient reported shortness of breath resolved prior to leaving the stress lab.
== END 2024-01-12 06:53 | disposition home or self-care (01) ==
LOC: NM 06:53
PROVIDERS: PCP Internal Medicine; Visit Provider Internal Medicine Cardiovascular Disease
DX: R07.2 Precordial pain (principal)
CPT/HCPCS: 78452; 93017; A9500

== ENCOUNTER 2024-02-22 08:37 | Outpatient (OUT) | payer MEDICARE, SELFPAY ==
--- OUTSIDE RECORDS SUMMARY | 2024-02-22 08:52 | XMS_ITS | CCD ---
Author Organization [facility]iniSy[facility] Care Team Providers Care Paper Grader Name Role Phone GIO CAVANAUGH Primary Care Physician Sybil Lee Unavailable Gina Starks Unavailable Gio Cavanaugh Unavailable MAO, DR POWERS Admitting Unavailable BALL, [...] Mao, DO Powers Primary Care Provider EARL Fleming Attending Provider Theresa Fleming Attending Unavailable Theresa Fleming Admitting Unavailable Gio Cavanaugh Primary Care Unavailable ERIKA HAMILTON, DUY Tse [...] Unavailable Lue, Meghan M. Attending Unavailable THERESA FLEMING Attending Unavailable Lue, Meghan M. Attending Unavailable Lue, Meghan M. Admitting Unavailable Lue, Meghan M. Attending Unavailable Lue, Meghan M. Referring Unavailable KAR, SAMAR Attending Unavailable GLENNA BHARDWAJ Attending Unavailable Allergies Allergy Classification Reported Allergen(s) Allergy Type Date of Onset Reaction(s) Facility (20 sources) Cephalexin; Translations: [cephalexin] Drug Allergy 04-06-20 20 Unknown (qualifier value), Dyspnea (finding) [facility] Other (20 sources) Penicillins; Translations: [penicillins] Drug allergy 08-07-19 16 Unknown (qualifier value), Dyspnea (finding) [facility] (2 sources) Penicillin V Drug Allergy rash/cough [facility] Other (13 sources) Cephalexin; Translations: [Keflex] Drug Allergy 08-07-19 16 rash/cough [facility] Repository (11 sources) Penicillin Drug Allergy rash/cough [facility] Other (7 sources) Keflex *CEPHALOSPORINS* Propensity to adverse reactions 02-29-20 18 Unknown [facility] Other (2 sources) Penicillin G Benzathine & Proc Drug allergy 02-29-20 18 Unknown [facility] Other (2 sources) patient allergy list reviewed by nurse or physicia Propensity to adverse reactions 03-02-20 18 Comment:Done [facility] Other (1 source) Cephalexin Drug Allergy 04-06-20 [facility] Repository (1 source) Cephalosporins (Antibiotic) Allergy to substance 11-28-19 Unknown Reaction [facility] Medications Current Medications Medication Drug Class(es) Dates [...] Daily, # 90 tab(s), Refills(s) 3, Pharmacy: [email or web address] #[facility], 180, cm, 06/16/23 9:50:00 EST, Height/Length Dosing, 108.2, kg, 06/16/23 9:50:00 EST, Weight Dosing Start Date: 07/28/23 Status: Ordered Start: 01-30-2023 take 1 tablet by [facility] once daily alfuzosin 10 mg ER Tab 10 mg = 1 tab(s), Oral, Daily, # 30 tab(s), Refills(s) 5, Pharmacy: [facility] #72, 180, cm, 12/20/22 10:13:00 EDT, Height/Length Dosing, 102.5, kg, 12/20/22 10:13:00 EDT, Weight Dosing Start Date: 01/30/23 Status: Ordered Start: 07-14-2022 take 1 tablet by [facility] once daily alfuzosin 10 mg ER Tab 10 mg = 1 tab(s), Oral, Daily, # 30 tab(s), Refills(s) 5, [facility]: [id number], 180, cm, 10/26/21 9:12:00 EDT, Height/Length Dosing, 95.2, kg, 10/26/21 9:12:00 EDT, Weight Dosing Start Date: 07/14/22 Status: Ordered Start: 07-08-2021 take 1 tablet by [facility] once daily alfuzosin 10 mg ER Tab 10 mg = 1 tab(s), Oral, Daily, # 30 tab(s), Refills(s) 11, [facility]: [facility] [facility], 180, cm, 07/08/21 15:57:00 EST, Height/Length Dosing, [...] day(s), # 2 tab(s), Refills(s) 0, Pharmacy: [email or web address] #72, 180, cm, 05/10/23 10:56:00 EST, Height/Length Dosing, 102, kg, 05/10/23 10:56:00 EST, Weight Dosing Start Date: 05/10/23 Stop Date: 05/11/23 Status: Ordered diazePAM 10 mg oral tablet (4 sources) Benzodiazepine Start: 05-10-2023 Valium 10 mg Tab 10 mg = 1 tab(s), Oral, Once, take 30 minutes prior to procedure, # 1 tab(s), Refills(s) 0, Pharmacy: [email or web address] #72, 180, cm, 05/10/23 10:56:00 EST, Height/Length [...] at 11pm Orally BID for 1 days BIN:[id number] PCN: [id number] GROUP:[id number] ID:[id number] October, Not-Taking/PRN Start: 11-17-2020 Plenv[facility] 140 GM dose 1 pouch at 4pm, dose 2 pouch A & B at 11pm Orally BID for 1 days BIN:[id number] PCN: CNRX GROUP:[id number] ID:[id number] October, Not-Taking Start: 11-17-2020 Plenvu 140 GM dose 1 pouch at 4pm, dose 2 pouch A & B at 11pm Orally BID for 1 days BIN:[id number]: CNRXGROUP:[id number] October, Not-Taking Start: 11-17-2020 Plenvu 140 GM dose 1 pouch at 4pm, dose 2 pouch A & B at 11pm Orally BID for 1 days BIN:[id number]: CNRXGROUP:[id number] October, Active methylPREDNISolone 4 mg oral tablet [...] Onset: 02-28-2018 01-29-2019 Episodic Heart valve disorders (4 sources) Aortic valve disorder; Translations: [Other nonrheumatic aortic valve disorders] Onset: 01-03-2024 Chronic Hyperplasia of prostate (20 sources) Benign [...] [Enlarged lymph nodes, unspecified] Onset: 11-29-2023 Episodic Nonspecific chest pain (2 sources) Precordial pain; Translations: [Precordial pain] Onset: 01-03-2024 Episodic Osteoarthritis (15 sources) Arthritis 01-29-2019 Chronic Other aftercare (1 source) 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; Translations: [OTH [facility] CURRENT DRUG THERAPY] Onset: 08-30-2022 Episodic Other aftercare (2 sources) Long-term current use of drug therapy; Translations: [Other assisted (current) drug therapy] Episodic Other and unspecified [...] levels of other serum enzymes Episodic Other lower respiratory disease (2 sources) Other forms of dyspnea; Translations: [Other forms of dyspnea] Onset: 01-03-2024 Episodic Other male genital disorders (10 sources) [...] [Bacterial pneumonia] Onset: 01-02-2022 Resolved: 11-01-2021 Episodic Pulmonary heart disease (2 sources) Pulmonary hypertension, unspecified; Translations: [Pulmonary hypertension, unspecified] Onset: 01-03-2024 Chronic Respiratory failure; insufficiency; arrest (adult) (1 source) Acute respiratory failure with hypercapnia; Translations: [ACUTE RESP FAIL W/HYPERCAPNIA] Onset: 08-30-2022 Episodic Screening and history of mental health and substance abuse codes (13 sources) Personal history of nicotine dependence; Translations: [...] Test Name Value Interpretation Reference Range Facility 36on 02-12-[address] Bhardwaj: MD Grace Lott MA Stress test showed no evidence of ischemia with normal left ventricle systolic function and normal leavitt motion therefore the fixed inferior defect is most likely due to attenuation artifact. I think the patient is stable cardiac cochran to proceed with TURP with necessary anesthesia. He is considered to be at low risk for perioperative cardiac events. Patient seeing Dr. Bhardwaj in clinic this morning. Normal [facility] Office Visiton 02-12-2024 Follow-up visit [id number] ConstantinMichael Bush 1955 M Date Provider Department Center 02/12/2024 GLENNA RAMIREZ Family History Problem Relation Age of Onset Diabetes Mother Heart attack Father Family Status - Relation Status Age at Mother Father Level of Service:[id number] ID OFFICE/OUTPATIENT ESTABLISHED MOD MDM 30 MIN Normal [facility] 36on 01-30-2024 36 Patient had stress test last month for surgery clearance. It's scanned into [employer]. Can you please review? Thanks! Normal [facility] Office Visiton 01-03-2024 Follow-up visit [id number] Michael Killian 1955 M Date Provider Department Center 01/03/2024 GLENNA RAMIREZ Family History Problem Relation Age of Onset Diabetes Mother Heart attack Father Family Status - Relation Status Age at Mother Father Level of Service:[id number] ID OFFICE/OUTPATIENT NEW MODERATE MDM 45 MINUTES [facility] BMPon 12-25-2023 Anion gap [Moles/Vol] 9 mmol/L Normal 6-16 [facility] Comment on above: Performed By: #### 2 [id number] #### [facility] [address] [place] [address] Calcium [Mass/Vol] 9.4 mg/dL Normal 8.9-11.1 [facility] Comment on above: Performed By: #### 2 [id number] #### [facility] [address] [place] [address] Chloride [Moles/Vol] 104 mmol/L Normal 101-111 [facility] Comment on above: Performed By: #### 2 [id number] #### [facility] [address] [place] [address] CO2 [Moles/Vol] 30 mmol/L Normal 21-31 [facility] Comment on above: Performed By: #### 2 [id number] #### [facility] [address] [place] [address] Creatinine [Mass/Vol] 1.3 mg/dL Normal 0.5-1.3 [facility] Comment on above: Performed By: #### 2 [id number] #### [facility] [address] [place] [address] Glucose [Mass/Vol] 113 mg/dL Normal 55-199 [facility] Comment on above: Performed By: #### 2 [id number] #### [facility] [address] [place] [address] Potassium [Moles/Vol] 4.3 mmol/L Normal 3.5-5.3 [facility] Comment on above: Performed By: #### 2 [id number] #### [facility] [address] [place] [address] Sodium [Moles/Vol] 139 mmol/L Normal 135-145 [facility] Comment on above: Performed By: #### 2 [id number] #### [facility] [address] [place] [address] Urea nitrogen [Mass/Vol] 21 mg/dL Normal 5-21 [facility] Comment on above: Performed By: #### 2 [id number] #### [facility] [address] [place] [address] Urea nitrogen/Creatinine [Mass ratio] 16 No Units Normal 10-20 [facility] Comment on above: Performed By: #### 2 [id number] #### [facility] [address] [place] [address] CBC w/ Auto Diffon 4 Basophils/100 WBC (Bld) 2.0 % Normal 0.0-2.0 [facility] Comment on above: Performed By: #### 2 [id number] #### [facility] [address] [place] [address] Basophils/Leukocytes Auto (Bld) [Pure # fraction] 0.1 E9/L Normal 0.0-0.2 [facility] Comment on above: Performed By: #### 2 [id number] #### [facility] [address] [place] [address] Eosinophils (Bld) [#/Vol] 0.3 E9/L Normal 0.0-0.5 [facility] Comment on above: Performed By: #### 2 [id number] #### [facility] [address] [place] [address] Eosinophils/100 WBC (Bld) 4.8 % Normal 0.0-8.0 [facility] Comment on above: Performed By: #### 2 [id number] #### [facility] [address] [place] [address] Erythrocyte distribution width (RBC) [Ratio] 14.1 % Normal 10.9-14.2 [facility] Comment on above: Performed By: #### 2 [id number] #### [facility] [address] [place] [address] Hematocrit (Bld) [Volume fraction] 38.5 % Normal 37.7-49.0 [facility] Comment on above: Performed By: #### 2 [id number] #### [facility] [address] [place] [address] Hemoglobin (Bld) [Mass/Vol] 13.7 g/dL Normal 13.5-17.5 [facility] Comment on above: Performed By: #### 2 [id number] #### [facility] [address] [place] [address] Lymphocytes (Bld) [#/Vol] 1.6 E9/L Normal 1.0-4.0 [facility] Comment on above: Performed By: #### 2 974271 #### [facility] [address] [place] [address] Lymphocytes/100 WBC (Bld) 29.7 % Normal 14.0-50.0 [facility] Comment on above: Performed By: #### 2 703283 #### [facility] [address] [place] [address] MCH (RBC) [Entitic mass] 30.3 pg Normal 27.0-34.0 [facility] Comment on above: Performed By: #### 2 [id number] #### [facility] [address] [place] [address] MCHC (RBC) [Mass/Vol] 35.5 g/dL Normal 31.4-36.0 [facility] Comment on above: Performed By: #### 2 [id number] #### [facility] [address] [place] [address] MCV (RBC) [Entitic vol] 85.3 fL Normal 80.0-100.0 [facility] Comment on above: Performed By: #### 2 [id number] #### [facility] [address] [place] [address] Monocytes (Bld) [#/Vol] 0.5 E9/L Normal 0.2-1.0 [facility] Comment on above: Performed By: #### 2 [id number] #### [facility] [address] [place] [address] Neutrophils (Bld) [#/Vol] 3.1 E9/L Normal 2.0-7.5 [facility] Comment on above: Performed By: #### 2 740945 #### [facility] [address] [place] [address] Neutrophils/100 WBC (Bld) 55.2 % Normal 36.0-75.0 [facility] Comment on above: Performed By: #### 2 183629 #### [facility] [address] [place] [address] Platelet 166.0 E9/L Normal 150.0-500.0 [facility] Comment on above: Performed By: #### 2 607401 #### [facility] [address] [place] [address] Platelet mean volume (Bld) [Entitic vol] 8.6 fL Normal 6.4-10.8 [facility] Comment on above: Performed By: #### 2 [id number] #### [facility] [address] [place] [address] RBC (Bld) [#/Vol] 4.5 E12/L Normal 4.3-5.9 [facility] Comment on above: Performed By: #### 2 568832 #### [facility] [address] [place] [address] WBC corrected for nucl RBC Auto (Bld) [#/Vol] 5.5 E9/L Normal 4.0-11.0 [facility] Comment on above: Performed By: #### 2 611646 #### [facility] [address] [place] [address] CHEMISTRYOrdered By: SYSTEM SYSTEM on 12-25-2023 Anion gap [Moles/Vol] 9 [...] 35.0 s Normal 25.1 - 36.5 second(s) [facility] Auto Coag Comment on above: Interpretive Data: [...] the same coagulation reagent and instrumentation as [facility]. Currently there are no coagulation studies available worldwide for children to 14 days, and no normal ranges. Heparin therapeutic range (represented by Anti-Factor Xa activity of 0.2 - 0.4 U/mL) corresponds to PTT of 56.6 - 109.0 sec. INR Coag (PPP) [Relative time] 1.01 {INR} Invalid Interpretation Code [facility] Comment on above: Interpretive Data: I NR results are specifically intended to assess patients stabilized on long-term Anticoagulation therapy suggested INR s Less Intensive Anticoagulation 2.0 3.0 Conventional Range 3.0 4.5 PT Coag (PPP) [Time] 11.3 s Normal 9.4 - 1 2.5 second(s) [facility] Auto [facility] Comment on above: Interpretive Data: [...] the same coagulation reagent and instrumentation as [facility]. Currently there are no coagulation studies available [...] Coag (PPP) [Time] 35.0 second(s) Normal 25.1-36.5 [facility] Comment on above: Result Comment: Para meter [...] the same coagulation reagent and instrumentation as [facility]. Currently there are no coagulation studies available worldwide for children to 14 days, and no normal ranges. Heparin therapeutic range (represented by Anti-Factor Xa activity of 0.2 - 0.4 U/mL) corresponds to PTT of 56.6 - 109.0 sec. Performed By: #### 1 [id number] #### [facility] [address] [place] [address] INR Coag (PPP) [Relative time] 1.01 {INR} Invalid Interpretation Code [facility] Comment on above: Result Comment: INR results are specifically intended to assess patients stabilized on long-term Anticoagulation therapy suggested INR?s ?Less Intensive Anticoagulation? 2.0 ? 3.0 Conventional Range 3.0 ? 4.5 Performed By: #### 1 [id number] #### [facility] [address] [place] [address] PT Coag (PPP) [Time] 11.3 second(s) Normal 9.4-12.5 [facility] Comment on above: Result Comment: 15 d [...] the same coagulation reagent and instrumentation as [facility]. Currently there are no coagulation studies available worldwide for children to 14 days, and no normal ranges. Performed By: #### 1 [id number] #### [facility] [address] [place] [address] UA with Cult Rflxon 12-25-19 24 Bilirubin Ql (U) Negative Normal Negative [facility] Comment on above: Performed By: #### 4 [id number] #### [facility] [address] [place] [address] Clarity (U) Clear Normal Clear [facility] Comment on above: Performed By: #### 4 [id number] #### [facility] [address] [place] [address] Color (U) Light-Yellow Normal Yellow [facility] Comment on above: Result Comment: Micr oscopic readings are only performed on those samples that meet specific criteria set forth by [facility]. Performed By: #### 4 [id number] #### [facility] [address] [place] [address] Glucose Ql (U) Negative Normal Negative [facility] Comment on above: Performed By: #### 4 [id number] #### [facility] [address] [place] [address] Hemoglobin Auto test strip (U) [Mass/Vol] Negative Normal Negative [facility] Comment on above: Performed By: #### 4 [id number] #### [facility] [address] [place] [address] Ketones Auto test strip Ql (U) Negative Normal Negative [facility] Comment on above: Performed By: #### 4 [id number] #### [facility] [address] [place] [address] Leukocyte esterase Auto test strip Ql (U) Negative Normal Negative [facility] Comment on above: Performed By: #### 4 [id number] #### [facility] [address] [place] [address] Nitrite Auto test strip Ql (U) Negative Normal Negative [facility] Comment on above: Performed By: #### 4 [id number] #### [facility] [address] [place] [address] pH (U) 5.5 [pH] Invalid Interpretation Code 5.0-9.0 [facility] Comment on above: Performed By: #### 4 [id number] #### [facility] [address] [place] [address] Protein Ql (U) Negative Normal Negative [facility] Comment on above: Performed By: #### 4 [id number] #### [facility] [address] [place] [address] Specific gravity (U) [Rel density] 1.012 Invalid Interpretation Code 1.005-1.030 [facility] Comment on above: Performed By: #### 4 [id number] #### [facility] [address] [place] [address] Urobilinogen (U) [Mass/Vol] Negative Normal Negative [facility] Comment on above: Performed By: #### 4 [id number] #### [facility] [address] [place] [address] Type of Urine collection method Clean Catch Normal [facility] Comment on above: Performed By: #### 4 [id number] #### [facility] [address] [place] [address] URINALYSISOrdered By: SYSTEM SYSTEM on 12-25-2023 Bilirubin Ql (U) Negative Normal Negativemg/ d L FT UA Auto SS Clarity (U) Clear (12/25/23 7:53 AM) Normal Clear FT UA Auto SS Color (U) Light-Yellow 1 (12/25/23 7:53 AM) Normal Yellow FT UA Auto SS Comment on above: Interpretive Data: M icroscopic readings are only performed on those samples that meet specific criteria set forth by [facility]. Glucose Ql (U) Negative Normal Negativemg/d L FT UA Auto SS Hemoglobin Auto test strip (U) [Mass/Vol] Negative Normal Negativemg/d L FT UA Auto SS Ketones Auto test strip Ql (U) Negative Normal Negativemg/d L FT UA Auto SS Leukocyte esterase Auto test strip Ql (U) Negative Normal NegativeLeu/ uL [facility] UA Auto SS Nitrite Auto test strip Ql (U) Negative Normal Negativemg/d L [facility] UA Auto SS pH (U) 5.5 *NA* (12/25/23 7:53 AM) Invalid Interpretation Code 5.0 - 9.0 [facility] UA Auto SS Protein Ql (U) Negative Normal Negativemg/d L [facility] UA Auto SS Specific gravity (U) [Rel density] 1.012 *NA* (12/25/23 7:53 AM) Invalid Interpretation Code 1.005 - 1.030 [facility] UA Auto SS Urobilinogen (U) [Mass/Vol] Negative Normal Negativemg/d L [facility] UA Auto SS URINALYSISOrdered By: Genevieve Quintero on 12-25-2023 UA Spec Desc Clean Catch (12/25/23 7:53 AM) Normal [facility] UA Auto SS XR Chest 2 Viewson 4 XR Chest 2 Views Exam Date/Time: 12/25/2023 [...] mGy = na DAP = na Normal [facility] eGFRon 12-25-2023 eGFR 60 mL/min/1.73 m2 Normal >=59 [facility] Comment on above: Order Comment: Order added by Discern Expert. Performed By: #### 1 [id number] #### [facility] [address] [place] [address] Reminderson 12-06-2023 Reminders - From: Carissa Hammonds To: EU - Recalls Lue; Sent: 06/16/2023 11:03:12 EST Show up: 11/15/2023 12:03:00 EDT Subject: PSA and CT scan Reminder Message Please Remember to:_have pt get PSA and CT pelvis wo con done prior to appt. Pt had CT done on 07/05/23, scoped by KM on 07/31/23. CTU reviewed at that time. Pt to follow up in 4-5 months w/ PSA, possible surgery discussed for prostate size. Pt seen KMDedrick 11/29/23. Scheduled for TURP Normal [facility] Screenson 12-01-2023 Screens [id number] #1.00TIFF Normal [facility] Screens [id number] #1.00TIFF Normal [facility] Consent for Procedure/Surger yon 11-30-2023 Consent for Procedure/Surgery [id number]# 1.00TIFF Normal [facility] Patient Educationon 11-29-19 24 Patient Education Urology [...] these instructions at home: Medicines ? Take tdlb-tsn-acjeato and prescription medicines only as told by [...] keep your urine pale yellow. ? Take aqmy-qvu-tbaphga or prescription medicines. ? Eat foods that [...] provider. Document Revised: 03/08/2022 Document Reviewed: 03/08/2022 [employer] Patient Education ? 2022 [employer] Transurethral Resection o (more content not included)... Normal [facility] Urology Office/Clinic Noteon 11-29-2023 Urology Office/Clinic Note [...] pelvic jameel (more content not included)... Normal [facility] Comment on above: Result Comment: Elec tronically Signed By: Daryl HAMILTON, Meghan Tucker\.br\Date and Time Signed: 11/29/23 16:11 EDT\.br\Electronically Co-Signed By: Carissa Hammonds\.br\Date and Time Co-Signed: 11/29/23 11:34 EDT Basophils Auto (Bld) [#/Vol] on 11-24-2023 Basophils (Bld) [#/Vol] 0.1 10 3/uL 0.0-0.1 [facility] Basophils/100 WBC Auto (Bld) on 11-24-2023 Basophils/100 WBC (Bld) 1.4 % 0.2-2.0 [facility] Cholesterol in LDL Calc [Mas s/Vol]on 11-24-2023 Cholesterol in LDL [Mass/Vol] 135.0 mg/dL [facility] Comment on above: <100 mg/dl [id number] 0-129 mg/dl NEAR OR ABOVE [id number] mg/dl BORDERLINE [id number] mg/dl HIGH>190 mg/dl VERY HIGH Cholesterol in VLDL Calc [Ma ss/Vol]on 11-24-2023 Cholesterol in VLDL [Mass/Vol] 19.2 mg/dL [facility] Eosinophils/100 WBC Auto (Bl d)on 11-24-2023 Eosinophils/100 WBC (Bld) 4.8 % 0.9-7.0 [facility] Erythrocyte distribution wid th Auto (RBC) [Ratio]on 11-24-2023 Erythrocyte distribution width (RBC) [Ratio] 13.2 % 11.0-15.0 [facility] Estimated glomerular filtrat ion rate (GFR) non- Americanon 11-24-2023 GFR/1.73 sq M.predicted among non-blacks MDRD (S/P/Bld) [Vol rate/Area] 51 mL/min/{1.73_m2} >=60 [facility] Globulin Calc (S) [Mass/Vol] on 11-24-2023 Globulin (S) [Mass/Vol] 3.5 g/dL [facility] Hematocrit Auto (Bld) [Volum e fraction]on 11-24-2023 Hematocrit (Bld) [Volume fraction] 39.3 % 42.0-54.0 [facility] Hemoglobin [Mass/volume] in Bloodon 11-24-2023 Hemoglobin (Bld) [Mass/Vol] 12.9 g/dL 14.0-18.0 [facility] Laboratory - Chemistry and C hemistry - challengeon 11-24-2023 Albumin [Mass/Vol] 3.8 g/dL 3.4-5.0 [facility] ALP [Catalytic activity/Vol] 72 U/L 46-116 [facility] ALT [Catalytic activity/Vol] 25 U/L 16-63 [facility] AST [Catalytic activity/Vol] 17 U/L 15-37 [facility] Bilirubin [Mass/Vol] 0.9 mg/dL 0.2-1.0 [facility] Calcium [Mass/Vol] 8.9 mg/dL 8.5-10.1 [facility] Chloride [Moles/Vol] 105 mmol/L 98-107 [facility] Cholesterol [Mass/Vol] 188 mg/dL <=200 [facility] Cholesterol in HDL [Mass/Vol] 34 mg/dL 40-60 [facility] Comment on above: > or =60 mg/dl - LOW CARDIOVASCULAR RISK<40 mg/dl - HIGH CARDIOVASCULAR RISK CO2 [Moles/Vol] 28.1 mmol/L 21.0-32.0 [facility] Creatinine [Mass/Vol] 1.40 mg/dL 0.70-1.30 [facility] GFR/1.73 sq M.predicted MDRD (S/P/Bld) [Vol rate/Area] mL/min/{1.73_m2} >=60 [facility] Glucose [Mass/Vol] 114 mg/dL 74-106 [facility] Potassium [Moles/Vol] 4.2 mmol/L 3.5-5.1 [facility] Protein [Mass/Vol] 7.3 g/dL 6.4-8.2 [facility] Sodium [Moles/Vol] 142 mmol/L 136-145 [facility] Triglyceride [Mass/Vol] 96 mg/dL <=150 [facility] Urea nitrogen [Mass/Vol] 22.0 mg/dL 7.0-18.0 [facility] Urea nitrogen/Creatinine [Mass ratio] 15.7 mg/mg [facility] Laboratory - Hematology and Cell countson 11-24-2023 Immature granulocytes/100 WBC (Bld) 0.2 % 0.0-0.5 [facility] Leukocytes [#/volume] correc rina for nucleated erythrocytes in Blood by Automated counon 11-24-2023 WBC corrected for nucl RBC Auto (Bld) [#/Vol] 5.0 10 3/uL 4.0-11.0 [facility] Lymphocytes Auto (Bld) [#/Vo l]on 11-24-2023 Lymphocytes (Bld) [#/Vol] 1.6 10 3/uL 1.2-3.8 [facility] Lymphocytes/100 WBC Auto (Bl d)on 11-24-2023 Lymphocytes/100 WBC (Bld) 31.0 % 20.5-60.0 [facility] MCH Auto (RBC) [Entitic mass ]on 11-24-2023 MCH (RBC) [Entitic mass] 28.4 pg 25.9-34.0 [facility] MCHC Auto (RBC) [Mass/Vol]on 11-24-2023 MCHC (RBC) [Mass/Vol] 32.8 g/dL 29.9-35.2 [facility] MCV Auto (RBC) [Entitic vol] on 11-24-2023 MCV (RBC) [Entitic vol] 86.6 fL 80.0-94.0 [facility] Monocytes Auto (Bld) [#/Vol] on 11-24-2023 Monocytes (Bld) [#/Vol] 0.4 10 3/uL 0.3-0.8 [facility] Monocytes/100 WBC Auto (Bld) on 11-24-2023 Monocytes/100 WBC (Bld) 8.1 % 1.7-12.0 [facility] Neutrophils Auto (Bld) [#/Vo l]on 11-24-2023 Neutrophils (Bld) [#/Vol] 2.8 10 3/uL 1.4-6.5 [facility] Neutrophils/100 WBC Auto (Bl d)on 11-24-2023 Neutrophils/100 WBC (Bld) 54.5 % 43.0-75.0 [facility] No Panel Informationon 11-23 Eosinophils # (Auto) 0.2 10 3/uL 0.0-0.7 [facility] Immature Granulocyte # (Auto) 0.01 10 3/uL 0.00-0.03 [facility] Prostate Specific Antigen Screen 6.70 ng/mL <=4.00 [facility] Platelet mean volume Auto (B ld) [Entitic vol]on 11-24-2023 Platelet mean volume (Bld) [Entitic vol] 10.3 fL 9.5-13.5 [facility] Platelets Auto (Bld) [#/Vol] on 11-24-2023 Platelets (Bld) [#/Vol] 177 10 3/uL 150-450 [facility] RBC Auto (Bld) [#/Vol]on RBC (Bld) [#/Vol] 4.54 10 6/uL 4.70-6.10 [facility] Serum or plasma albumin/glob ulin mass ratioon 11-24-2023 Albumin/Globulin [Mass ratio] 1.1 {ratio} [facility] Serum or plasma anion gap de terminationon 11-24-2023 Anion gap [Moles/Vol] 13.1 [facility] Serum or plasma total choles terol/high density lipoprotein (HDL) cholesterol mass juve 11-24-2023 Cholesterol.total/Cho lesterol in HDL [Mass ratio] 5.5 {ratio} [facility] Comment on above: 3.3 - 4.4 LOW RISK4. 4 - 7.1 AVERAGE RISK7.1 - 11.0 MODERATE RISK>11.0 HIGH RISK Consent for Procedure/Surger yon 07-31-2023 Consent for Procedure/Surgery [id number] 6#1.00TIFF [facility] Consent for Treatmenton Consent for Treatment [id number] #1.00TIFF [facility] Inpatient Patient Summaryon 07-31-2023 Inpatient Patient Summary [place] [id number] Clinical Summary Person Information Name: MICHAEL KILLIAN Age: 68 Years : 1955 Sex: Male PCP: GIO CAVANAUGH DO Marital Status: Race: White Ethnicity: Non- or Language: Romanian Visit Id: Visit Reason: GROSS HEMATURIA Speciality: Acuity: Enc Type: Outpatient Med Service: Surgery Arrival: 07/31/2023 07:51:46 Discharge: Dispo Type: Address: [address] [place] [address] [place] [address] [phone] Provider Notes: Diagnosis: BPH with urinary obstruction; [...] Follow up: With: Address: When: Meghan Brito [address] [place] [id number] [phone] Business (1) Comments: Office to schedule follow up in 3-4 months or call sooner for procedure (pt knows will be done by partner/referred out if during leave) Patient Education Information: Robot-Assisted Laparoscopic Radical Prostatectomy; Transurethral Resection of the Prostate; EU - Cystoscopy Discharge Instructions (CUSTOM) [facility] IntraOperative Documentson 0 07-31-2023 IntraOperative Documents [id number] 6#1.00TIFF [facility] Main OR Intraoperative Recor don 07-31-2023 Main OR Intraoperative Record IntraOp Document Type FTURO Summary Primary Physician: Meghan Brito MD Finalized Date/Time: 07/31/23 09:01:26 Pt. Name: MICHAEL KILLIAN/Sex: 1955 Male Med Rec #: [id number] Physician: Meghan Brito MD Financial #: [id number] Pt. Type: O Room/Bed: / Admit/Disch: 07/31/23 07:51:46 - Institution: Case Times FTURO Entry 1 Patient Times In Room 07/31/23 08:49:00 Out Room 07/31/23 09:07:00 Procedure Times Start 07/31/23 08:56:00 Stop 07/31/23 09:02:00 Anesthesia Times Last Modified By: Marge ENCISO, DARSHANAOR, Purnima 07/31/23 09:00:53 Case Attendance FTURO Entry 1 Entry 2 Entry 3 Case Attendee Daryl HAMILTON, Meghan Bird RN, CNOR, Bette HILL, Rachana Felton Role Performed Surgeon - Primary Tankroom Tender - Primary Scrub - Primary Time In 07/31/23 08:49:00 07/31/23 08:49:00 07/31/23 08:49:00 Time Out 07/31/23 09:07:00 07/31/23 09:07:00 07/31/23 09:07:00 Procedure CYSTOSCOPY LOCAL(.) CYSTOSCOPY LOCAL(.) CYSTOSCOPY LOCAL(.) Comments Last Modified By: Marge ENCISO, DARSHANAOR, Marge ENCISO, DARSAHNAOR, Marge ENCISO, DARSHANAOR, Purnima 07/31/23 Purnima 07/31/23 Purnima 07/31/23 09:00:54 09:00:54 09:00:54 Surgical Procedures FTURO Entry 1 Procedure Description Procedure CYSTOSCOPY LOCAL Modifiers . Surgeon Description CYSTO Primary Procedure Yes Primary Surgeon Daryl HAMILTON, Meghan Tucker Start 07/31/23 08:56:00 Stop 07/31/23 09:02:00 Anesthesia Type Local Surgical Service Urology Wound Class 2 - Clean-Contaminated Last Modified By: Marge ENCISO, JAY, Purnima 07/31/23 09:00:56 General Case Data FTURO Pre-Care Text: Classifies surgical wound, implements aseptic technique, initiates traffic control Entry 1 Case Information OR URO 1 FT Case Level None Wound Class 2 - Clean-Contaminated Specialty Urology Preop Diagnosis GROSS HEMATURIA Postop Same As Preop No Postop Diagnosis enlarged prostate Outcomes Met? Yes Last Modified By: Marge ENCISO, DARSHANAOR, Purnima 07/31/23 09:00:42 Post-Care Text: The patient is [...] Participants JAY Bird RN, Applicable) Bette Felton MRI MANAGER, Rachana A Time Out Complete 07/31/23 08:49:00 Allergies [...] By: JAY Bird RN, Ruthann 07/31/23 09:01 [facility] Main OR Preoperative Recordo n 07-31-2023 Main OR Preoperative Record Holding Area Document Type FTURO Summary Primary Physician: Meghan Brito MD Finalized Date/Time: 07/31/23 08:50:15 Pt. Name: MICHAEL KILLIAN/Sex: 1955 Male Med Rec #: [id number] Physician: Meghan Brito MD Financial #: [id number] Pt. Type: O Room/Bed: / Admit/Disch: 07/31/23 [...] Bird RN, Ruthann Document Signatures Signed By: Racahna Mena RN 07/31/23 08:13 JAY Bird RN, Ruthann 07/31/23 08:50 [facility] Operative Reporton Operative Report Patient: MICHAEL KILLIAN Age: 68 years Sex: Male : 1955 Associated Diagnoses: None Author: Meghan Brito MD Procedure Operative Information Details: Date/ Time: 07/31/2023 09:06:00. Pre-Op Dx: BPH with urinary obstruction (CIY56-JK N40.1, Discharge, Medical), Feeling of incomplete bladder emptying (QVH32-MV R39.14, Discharge, Medical), Gross hematuria (EVY52-DD R31.0, Discharge, Medical). Post-Op Dx: Same. Anesthesia [...] BPH workup and gross hematuria. . [facility] Comment on above: Result Comment: Elec tronically Signed By: Meghan Brito MD\.br\Date and Time Signed: 07/31/23 09:10 EST Outpatient Surgery Discharge Instructionon 07-31-2023 Outpatient Surgery Discharge Instruction [place] [id number] Patient Discharge Instructions PERSON INFORMATION Name: MICHAEL [...] Follow up: With: Address: When: Meghan Brito [address] [place] [address], [facility] [address], [address] [address] [phone] Business (1) Comments: Office to schedule follow [...] including vitamins, herbs, eye drops, creams, and mbkj-xwz-esopgcw medicines. ? Any problems you or family [...] tells you to take them. ? Taking tcnl-rno-wosqzrz medicines, vitamins, herbs, and supplements. ? Follow your health care provider's instructions about cleaning out your bowels. Surgery s (more content not included)... [facility] Progress Note-Physicianon Progress Note-Physician Patient: MICHAEL [...] Daily, # 90 tab(s), Refills(s) 3, Pharmacy: [email or web address], 180, cm, 06/16/23 9:50:00 EST, Height/Length Dosing, 108.2, kg, 06/16/23 9:50:00 EST, Weight Dosing Documented Medications Documented carvedilol 6.25 mg Tab: 6.25 mg = 1 tab(s), Oral, BID, # 60 tab(s), Refills(s) 0 lisinopril 40 mg Tab: mg tab(s), Oral, Daily, Refills(s) 0 Impression and Plan Assessment and Plan: Diagnosis: BPH with urinary obstruction (WDT52-SZ N40.1, Discharge, Medical), Pelvic lymphadenopathy (PUN40-TO R59.0, Working, Medical), Chronic prostatitis (CLS27-QH N41.1, Discharge, Medical), Feeling of incomplete bladder emptying (QVN96-MU R39.14, Discharge, Medical), Gross hematuria (CIM51-ON R31.0, Discharge, Medical). Assessment and Plan: Diagnosis: BPH with urinary obstruction (JQE82-XE N40.1, Discharge, Medical), Chronic prostatitis (ALN14-WT N41.1, Discharge, Medical), Feeling of incomplete bladder emptying (DBR51-FX R39.14, Discharge, Medical), Gross hematuria (ZUK85-KI R31.0, Discharge, Medical), Pelvic lymphadenopathy (MXH43-HA R59.0, Working, Medical). 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 Gross hematuria - after [place] CTU 07/05/23 at [facility] - neg for upper tract filling [...] 4 to 5 months with PVR [facility] Comment on above: Result Comment: Elec tronically Signed By: Daryl HAMILTON, Meghan Oshea.br\Date and Time Signed: 07/31/23 12:31 EST RAD - CT Reporton 07-10-2023 RAD - CT Report [id number]# 1.00TIFF [facility] Lab Reportson 07-07-2023 Lab Reports [id number]# 1.00TIFF [facility] Lab Reports [id number] #1.00TIFF [facility] Urine Cytology ([facility])on 07-05-2023 Urine Cytology Diagnosis Info Invalid Interpretation Code [facility] Comment on above: Result Comment: A:Ur ine,Urine:Voided Interpretation - MicroScopic Description - Adequacy - Gross Description Site ID:A color Dark Aiken fixative Alcohol Specimen designated Urine received in alcohol preservative and labeled with the patient?s name, consists of 110ml cloudy dark peach fluid. Electronically signed by : on: 07/05/2023 13:00:05 Performed By: #### 1 [id number] ####[facility] [address] [place] [id number] Urine Cytology ([facility])on 0 06-30-2023 Method of Extraction Voided [facility] Comment on above: Performed By: #### 1 [id number] ####[facility] [address] [place] [address] Number of Jars 1 Invalid Interpretation Code [facility] Comment on above: Performed By: #### 1 [id number] ####[address] Specimen Urine [facility] Comment on above: Performed By: #### 1 [id number] ####[place] [id number] Type of Service Technical Only Normal [facility] Comment on above: Performed By: #### 1 [id number] ####[place] [id number] IntraOperative Documentson 1 08-23-2022 IntraOperative Documents [id number] 0#1.00TIFF [facility] Pathology Noteon 06-22-2023 Pathology Note [id number] #1.00TIFF [facility] Screenson 06-20-2023 Screens [id number] #1.00TIFF [facility] Screens [id number] #1.00TIFF [facility] Ambulatory Visit Summaryon 1 08-17-2022 Ambulatory Visit Summary MICHAEL KILLIAN :1955 Visit Date:06/16/2023 Ambulatory Visit Instructions Your Diagnosis Elevated PSA BPH with urinary obstruction ED (erectile dysfunction) Former smoker Enlarged lymph node Tests Performed Urnls Dip Stick Auto w/o Microscopy POC [address] CT Pelvis w/o Contrast -- Results Pending -- Please visit your patient portal for your results or contact your primary care physician. Your Care Team Attending Physician - Daryl HAMILTON, Meghan Tucker Primary Care Physician - GIO CAVANAUGH DO This Is Your Medications List Contact [...] 9:15 AM EST Where: [facility] Patient Educationon 06-16-20 23 Patient [...] Where to find more information ? The [place] [employer]: www.cancer.org ? [place] [employer]: www.auanet.org Contact a health care [...] adds flu (more content not included)... [facility] Urology Office/Clinic Noteon 06-16-2023 Urology Office/Clinic Note Chief Complaint S/P to MRI proste and review path HPI Staff S/p to [place] prostate wo/ [place] [facility] [place] Review path report done 06/06/23 [...] consent jane (more content not included)... [facility] Comment on above: Result Comment: Elec tronically Signed By: Meghan Brito MD\.br\Date and Time Signed: 06/16/23 15:18 EST\.br\Electronically Co-Signed By: Carissa Hammonds\.br\Date and Time Co-Signed: 06/16/23 11:02 EST Main OR Intraoperative Recor don 06-09-2023 Main OR Intraoperative Record IntraOp Document Type FT Summary Primary Physician: Meghan Brito MD Finalized Date/Time: 06/09/23 09:45:57 Pt. Name: CONSTANTIN MICHAEL Villagran/Sex: 1955 Male Med Rec #: [id number] Physician: Meghan Brito MD Financial #: [id number] Pt. Type: A Room/Bed: [place] [address] Admit/Disch: 06/06/23 13:31:36 - 06/06/23 18:00:13 Institution: [...] Performed Surgeon - Primary Scrub - Primary Tankroom Tender - Primary Time In 06/06/23 16:38:00 06/06/23 [...] Class 2 - Clean-Contaminated Last Modified By: FlorenciaJusteneder Arredondo 06/06/23 17:02:29 General Case Data FT Pre-Care [...] and tissue Entry 1 Skin Integrity Intact, [place], Warm, and Skin Abnormality No Dry Outcomes [...] Board Right (more content not included)... [facility] Discharge Instructionson Discharge Instructions [id number] 9#1.00TIFF [facility] IntraOperative Documentson 1 08-09-2022 IntraOperative Documents [id number] 5#1.00TIFF [facility] IntraOperative Documents [id number] 9#1.00TIFF [facility] IntraOperative Documents [id number] 9#1.00TIFF [facility] Preoperative Documentson Preoperative Documents [id number] 5#1.00TIFF [facility] Consent for Procedure/Surger yon 06-06-2023 Consent for Procedure/Surgery [id number] 58#1.00TIFF [facility] Consent for Treatmenton 05-26 Consent for Treatment [id number] #1.00TIFF [facility] Discharge Instructionson Discharge Instructions MICHAEL KILLIAN [...] Meghan Brito MD Where: [facility] Comment on above: Result Comment: Elec tronically Signed By: Alcides ENCISO, Dori Mallory\.leslie\Date and Time Signed: 06/06/23 17:16 EST H&P Updateon 06-06-2023 H&P Update [id number] 9#1.00TIFF [facility] Inpatient Patient Summaryon 06-06-2023 Inpatient Patient Summary [place] [id number] [facility] Clinical Discharge Instructions PERSON INFORMATION Name: MICHAEL KILLIAN PHYSICIANS Admitting Physician: Meghan Brito MD Attending Physician: Meghan Brito MD PCP: GIO CAVANAUGH DO Discharge Diagnosis: Elevated PSA Comment: PATIENT EDUCATION INFORMATION Instructions: EU - Transrectal Ultrasound of the Prostate with US guided biopsy Discharge Instructions (CUSTOM) Medication Leaflets: Follow up: With: Address: When: Meghan Brito Comments: Keep scheduled appointment Type Location Start Finish State URO Office Visit [facility] EU [place] 06/14/2023 10:30 AM 06/14/2023 10:45 AM Confirmed [...] Tab) By Mouth every day. Comment: [facility] Operative Reporton Operative Report Patient: MICHAEL [...] Select MDX showed 95% likelihood of detecting [place] 7 or higher. After discussion of risks/benefits [...] . Impression and Plan Diagnosis Elevated PSA (DQU62-GU R97.20, Discharge, Medical). Diagnosis Elevated PSA (RUM64-PB R97.20, Discharge, Medical). [facility] Comment on above: Result Comment: Elec tronically Signed By: Meghan Brito MD\.br\Date and Time Signed: 06/06/23 16:58 EST Outpatient Surgery Discharge Instructionon 06-06-2023 Outpatient Surgery Discharge Instruction [place] [id number] Patient Discharge Instructions PERSON INFORMATION Name: MICHAEL KILLIAN Date of : 1955 Current Date: 06/06/2023 16:52:42 PHYSICIANS Admitting Physician: Meghan Brito MD Discharge Diagnosis: Elevated PSA ALDA MICHAEL Bush has been given the following list of [...] THE NEAREST EMERGENCY ROOM OR CALL 911 ICONSTANTIN DENNIS J, have received the attached patient education materials/instructio ns and have verbalized understanding: May we do a follow up call? Yes No I was present when discharge instructions were given Patient Signature Date Clinican/Nurse Signature Date Follow up: With: Address: When: Meghan Brito Comments: Keep scheduled appointment Type Location Start Finish State URO Office Visit [facility] EU [place] 06/14/2023 10:30 AM 06/14/2023 10:45 [...] to serve you. Thank you for choosing [facility] HERE ARE THE MEDICATION CHANGES THAT [...] near your rectum, especially while sitting. ? [place]-colored urine due to small amounts of blood [...] urinating or catheter-related problems Medication Leaflets: [facility] Patient Education - Texton 1 08-07-2022 Patient Education - Text Transperineal?Biopsy of the Prostate Discharge Instructions After the procedure, it is common to have: ? Pain and discomfort near your rectum, especially while sitting. ? [place]-colored urine due to small amounts of blood [...] have difficulty urinating or catheter-related problems [facility] Outside Recordson 05-15-2023 Outside Records [id number] 5#1.00TIFF [facility] Ambulatory Visit Summaryon 07-12-2022 Ambulatory Visit Summary MICHAEL KILLIAN :1955 Visit Date:05/10/2023 Ambulatory Visit Instructions Your Diagnosis Elevated PSA BPH with urinary obstruction Tests Performed Urnls Dip Stick Auto w/o Microscopy POC 91123 Your Care Team Attending Physician - Meghan Brito MD Primary Care Physician - GIO CAVANAUGH DO This Is Your Medications List alfuzosin [...] Appointments Monday 2:30 PM EST With: Where: [facility] Monday 10:30 AM EST With: Meghan Brito MD Where: [facility] Patient Educationon 05-10-20 23 Patient Education Oncology [...] Where to find more information ? The [place] Cancer [employer]: www.cancer.org ? [place] [employer]: www.auanet.org Contact a health care [...] adds flu (more content not included)... [facility] [place] 05-10-2023 Screens [id number] 1#1.00TIFF [facility] Screens [id number] 3#1.00TIFF [facility] Urology Office/Clinic Noteon 05-10-2023 Urology Office/Clinic [...] and history for this patient from Theresa Fleming PA-C. I have reviewed and verified the [...] likelihood of detecting Jes[place] scores >=7 cancer. Today I reviewed the [...] office notified. 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 2. BPH with [...] -Timed voids (more content not included)... [facility] Comment on above: Result Comment: Elec tronically Signed By: Meghan Brito MD\.br\Date and Time Signed: 05/10/23 11:31 EST\.br\Electronically Co-Signed By: Nevaeh Padilla\.br\Date and Time Co-Signed: 05/10/23 11:22 EST Lab Reportson 04-18-2023 Lab Reports [id number] #1.00TIFF [facility] Physician Orderon 04-13-2023 Physician Order [id number] #1.00TIFF [facility] Formson 04-12-2023 Forms [id number] #1.00TIFF [facility] Lab Reportson 04-12-2023 Lab Reports [id number] #1.00TIFF [facility] Patient Educationon 04-11-20 Patient Education Oncology [...] Where to find more information ? The [place] Cancer [employer]: www.cancer.org ? [place] [employer] Association: www.auanet.org Contact a health care [...] adds flu (more content not included)... [facility] Urology Office/Clinic Noteon 04-11-2023 Urology Office/Clinic [...] given order for PSA. Will complete at [facility]. Return in about 4 weeks to [...] Contact Information FLAKO ELLIOTT, THERESA [place], URL [address] [place] [address] [phone] Additional Instructions: f/u with MD in 1 month w/ PSA and Select MDX Patient Education Prostate Cancer Screening Documentation recorded by the doreen Hammonds accurately reflects the services(s) I performed and decisions made by me. Authenticated by Theresa Fleming PA-C on 04/11/2023 13:13:13. I, Carissa Hammonds, personally scribed for Theresa Fleming PA-C on 04/11/2023 12:32:30. . Problem List/Past [...] SARS-CoV-2 (COVID-19) Ad26 vaccine 09/02/[address] [facility] Comment on above: Result Comment: Elec tronically Signed By: THERESA FLEMING PA-C\.br\Date and Time Signed: 04/11/23 13:13 EDT\.br\Electronically Co-Signed By: Carissa Hammonds\.br\Date and Time Co-Signed: 04/11/23 12:33 EDT RAD - MRI Reporton RAD - MRI Report [id number] #1.00TIFF [facility] Creatinine (Bld) [Mass/Vol]O rdered By: Theresa Fleming on 04-03-2023 Creatinine [Mass/Vol] 1.4 mg/dL 0.6-1.3 [facility] Comment on above: ER/ESD physician is notified/shown all ISTAT results.Critical values may be confirmed by laboratory testing ifdeemed necessary by ER attending doctor. ISTAT XRay CREon 04-03-2023 Creatinine [Mass/Vol] 1.4 mg/dL High 0.6-1.3 [facility] Comment on above: Result Comment: ER/E SD physician is notified/shown all ISTAT results. Critical values may be confirmed by laboratory testing if deemed necessary by ER attending doctor. Performed By: #### I SCRE #### [facility] [address] [place] [address] ISTAT GFR 55.088 [facility] Comment on above: Result Comment: PERF ORMED BY: [place] [address] PATHOLOGIST PIE CHEF SARAH BETH SILVEIRA M.D. Performed By: #### I SCRE #### [facility] [address] [place] [address] MR prostate wo/w conon 04-03 MR prostate wo/w con [facility] Main [place] [address] [place] [address] MRI Report Signed Patient: Michael Killian MR#: [id number] [id number] : 1955 Acct:[id number] Age/Sex: 68 / M ADM Date: 04/03/23 Loc: MR Room: Type: [facility] Attending Dr: Thereas Fleming PA-C Copies to: Theresa Fleming PA-C Ordering Provider: Theresa Fleming PA-C Date of Service: 04/03/23 MR/MR prostate [...] Cleary Jr., D.O.04/03/2023 1:40 PM Dictation Location: [place] [address] Transcribed By: [facility] 04/03/23 1340 Dictated By: Leandro Cleary Jr DO 04/03/23 1334 Signed By: 04/03/23 1340 [facility] PROF 14(COMP METB)on 023 Albumin [Mass/Vol] 3.9 g/dL Normal 3.4-5.0 [facility] Comment on above: Performed By: #### B MP #### [facility] [address] [place] [address] Dr. Duy James Albumin/Globulin [Mass ratio] 1.1 {ratio} Normal [facility] Comment on above: Performed By: #### B MP #### [facility] [address] [place], [place] [address] Dr. Duy James ALP [Catalytic activity/Vol] 70 U/L Normal 46-116 [facility] Comment on above: Performed By: #### B MP #### [facility] [address] [address] [address] Duy James ALT [Catalytic activity/Vol] 26 U/L Normal 16-63 [facility] Comment on above: Performed By: #### B MP #### [facility] [address] [address] [address] Duy James Anion gap [Moles/Vol] 13.1 mmol/L Normal [facility] Comment on above: Performed By: #### B MP #### [facility] [address] [place] [address] Dr. Duy James AST [Catalytic activity/Vol] 17 U/L Normal 15-37 [facility] Comment on above: Performed By: #### B MP #### [facility] [address] [place] [address] Dr. Duy James Bilirubin [Mass/Vol] 0.6 mg/dL Normal 0.2-1.0 [facility] Comment on above: Performed By: #### B MP #### [facility] [address] [place] [address] Dr. Duy James Calcium [Mass/Vol] 9.0 mg/dL Normal 8.5-10.1 [facility] Comment on above: Performed By: #### B MP #### [facility] [address] [place] [address] Dr. Duy James Chloride [Moles/Vol] 106 mmol/L Normal 98-107 [facility] Comment on above: Performed By: #### B MP #### [facility] [address] [place] [address] Dr. Duy James CO2 [Moles/Vol] 28.5 mmol/L Normal 21.0-32.0 [facility] Comment on above: Performed By: #### B MP #### [facility] [address] [place] [address] Dr. Duy James Creatinine [Mass/Vol] 1.22 mg/dL Normal 0.70-1.30 [facility] Comment on above: Performed By: #### B MP #### [facility] [address] [address] [address] Duy James EGFR-AF GABONESE >60 Normal >=60 [facility] Comment on above: Performed By: #### B MP #### [facility] [address] [address] [address] Duy James EGFR-NON AF GABONESE 59 mL/min/1.73m2 Critically low >=60 [facility] Comment on above: Performed By: #### B MP #### [facility] [address] [address] [address] Duy James Globulin (S) [Mass/Vol] 3.7 g/dL Normal [facility] Comment on above: Performed By: #### B MP #### [facility] [address] [address] [address] Duy James Glucose [Mass/Vol] 113 mg/dL Critically high 74-106 [facility] Comment on above: Performed By: #### B MP #### [facility] [address] [address] [address] Duy James Potassium [Moles/Vol] 4.6 mmol/L Normal 3.5-5.1 [facility] Comment on above: Performed By: #### B MP #### [facility] [address] [address] [address] Duy James Protein [Mass/Vol] 7.6 g/dL Normal 6.4-8.2 [facility] Comment on above: Performed By: #### B MP #### [facility] [address] [address] [address] Duy James Sodium [Moles/Vol] 143 mmol/L Normal 136-145 [facility] Comment on above: Performed By: #### B MP #### [facility] [address] [address] [address] Duy James Urea nitrogen [Mass/Vol] 12.0 mg/dL Normal 7.0-18.0 [facility] Comment on above: Performed By: #### B MP #### [facility] [address] [place] [address] Dr. Duy James Urea nitrogen/Creatinine [Mass ratio] 9.8 mg/mg Normal [facility] Comment on above: Performed By: #### B MP #### [facility] [address] [place], [place] [id number] Dr. Duy James XR CHEST 2 Von 11-07-2022 XR CHEST [...] acute cardiopulmonary process. Electronically authenticated by: LIDYA URBANO Date: 2022-11-07 09:16 Normal [facility] CULTURE BLOODon 08-30-2022 Microscopic examination of [...] Trimethoprim/Sulfame thoxazole <=10 S F Normal [facility] Comment on above: Performed By: #### B MP #### [facility] [address] [place], [place] [id number] Dr. Duy James HEPATITIS PANEL, ACUTEon HBsAg Screen Negative Normal Negative [facility] Comment on above: Performed By: #### C BC #### [facility] [address] [place] [address] Dr. Duy James HCV AB Non-Reactive Normal Non Reactive [facility] Comment on above: Performed By: #### C BC #### [facility] [address] [place] [address] Dr. Duy James Hep A Ab, IgM Negative Normal Negative [facility] Comment on above: Performed By: #### C BC #### [facility] [address] [place] [address] Dr. Duy James Hep B Core Ab, IgM Negative Normal Negative [facility] Comment on above: Performed By: #### C BC #### [facility] [address] [place] [address] Dr. Duy James Interpretation: Comment Normal [facility] Comment on above: Result Comment: Not infected with HCV unless early or acute infection is suspected (which may be delayed in an immunocompromised individual), or other evidence exists to indicate HCV infection. Performed By: #### C BC #### [facility] [address] [place] [address] Dr. Duy James CBC W MANUAL DIFFon 08-29-19 23 ATYPICAL LYMPH # Normal [facility] Comment on above: Performed By: #### B MP #### [facility] [address] [place] [address] Dr. Duy James ATYPICAL LYMPH % Normal [facility] Comment on above: Performed By: #### B MP #### [facility] [address] [place] [address] Dr. Duy James BAND # 0.0 103/ul Normal 0.0-0.3 [facility] Comment on above: Performed By: #### B MP #### [facility] [address] [place] [address] Dr. Duy James BAND % 0 % Normal 0-5 [facility] Comment on above: Performed By: #### B MP #### [facility] [address] [place] [address] Dr. Duy James BASOM # 0.00 103/ul Normal 0.00-0.10 [facility] Comment on above: Performed By: #### B MP #### [facility] [address] [place] [address] Dr. Duy James BASOM % 0.0 % Critically low 0.2-2.0 [facility] Comment on above: Performed By: #### B MP #### [facility] [address] [place] [address] Dr. Duy James BLAST # Normal [facility] Comment on above: Performed By: #### B MP #### [facility] [address] [place] [address] Dr. Duy James BLAST % Normal [facility] Comment on above: Performed By: #### B MP #### [facility] [address] [place] [address] Dr. Duy James CORRECTED WBC Normal 4.0-11.0 [facility] Comment on above: Performed By: #### B MP #### [facility] [address] [place] [address] Dr. Duy James EOS # 0.00 103/ul Normal 0.00-0.70 [facility] Comment on above: Performed By: #### B MP #### [facility] [address] [place] [address] Dr. Duy James EOS% 0.0 % Critically low 0.9-7.0 [facility] Comment on above: Performed By: #### B MP #### [facility] [address] [place] [address] Dr. Duy James HCT 36.8 % Critically low 42.0-54.0 [facility] Comment on above: Performed By: #### B MP #### [facility] [address] [place] [address] Dr. Duy James HGB 12.0 g/dl Critically low 14.0-18.0 [facility] Comment on above: Performed By: #### B MP #### [facility] [address] [place] [address] Dr. Duy James LYMPHM # 0.47 103/ul Critically low 1.20-3.80 [facility] Comment on above: Performed By: #### B MP #### [facility] [address] [address] [address] Duy James LYMPHM% 6.0 % Critically low 20.5-60.0 [facility] Comment on above: Performed By: #### B MP #### [facility] [address] [place] [address] Dr. Duy James MCH 28.4 pg Normal 25.9-34.0 [facility] Comment on above: Performed By: #### B MP #### [facility] [address] [place] [address] Dr. Duy James MCHC 32.6 g/dl Normal 29.9-35.2 [facility] Comment on above: Performed By: #### B MP #### [facility] [address] [place] [address] Dr. Duy James MCV 87.0 fL Normal 80.0-94.0 [facility] Comment on above: Performed By: #### B MP #### [facility] [address] [place] [address] Dr. Duy James METAMYELOCYTE # Normal [facility] Comment on above: Performed By: #### B MP #### [facility] [address] [place] [address] Dr. Duy James METAMYELOCYTE % Normal [facility] Comment on above: Performed By: #### B MP #### [facility] [address] [place] [address] Dr. Duy James MONOM# 0.40 103/ul Normal 0.30-0.80 [facility] Comment on above: Performed By: #### B MP #### [facility] [address] [place] [address] Dr. Duy James MONOM% 5.0 % Normal 1.7-12.0 [facility] Comment on above: Performed By: #### B MP #### [facility] [address] [place] [address] Dr. Duy James MPV 10.2 fL Normal 9.5-13.5 [facility] Comment on above: Performed By: #### B MP #### [facility] [address] [address] [address] Duy James MYELOCYTE # Normal [facility] Comment on above: Performed By: #### B MP #### [facility] [address] [address] [address] Duy James MYELOCYTE % Normal [facility] Comment on above: Performed By: #### B MP #### [facility] [address] [address] [address] Duy James NRBC Normal [facility] Comment on above: Performed By: #### B MP #### [facility] [address] [address] [address] Duy James PLT 205 103/ul Normal 150-450 [facility] Comment on above: Performed By: #### B MP #### [facility] [address] [place] [address] Dr. Duy James RBC 4.23 106/ul Critically low 4.70-6.10 [facility] Comment on above: Performed By: #### B MP #### [facility] [address] [place] [address] Dr. Duy James RDW 13.3 % Normal 11.0-15.0 [facility] Comment on above: Performed By: #### B MP #### [facility] [address] [place] [address] Dr. Duy James SEG # 7.03 103/ul Critically high 1.40-6.50 [facility] Comment on above: Performed By: #### B MP #### [facility] [address] [place] [address] Dr. Duy James SEG % 89.0 % Critically high 43.0-75.0 [facility] Comment on above: Performed By: #### B MP #### [facility] [address] [place] [address] Dr. Duy James WBC 7.9 103/ul Normal 4.0-11.0 [facility] Comment on above: Performed By: #### B MP #### [facility] [address] [place] [address] Dr. Duy James PROF 14(COMP METB)on 023 Albumin [Mass/Vol] 3.4 g/dL Normal 3.4-5.0 [facility] Comment on above: Performed By: #### C BC #### [facility] [address] [place] [address] Dr. Duy James Albumin/Globulin [Mass ratio] 1.0 {ratio} Normal [facility] Comment on above: Performed By: #### C BC #### [facility] [address] [place] [address] Dr. Duy James ALP [Catalytic activity/Vol] 73 U/L Normal 46-116 [facility] Comment on above: Performed By: #### C BC #### [facility] [address] [place] [address] Dr. Duy James ALT [Catalytic activity/Vol] 66 U/L Critically high 16-63 [facility] Comment on above: Performed By: #### C BC #### [facility] [address] [place] [address] Dr. Duy James Anion gap [Moles/Vol] 10.6 mmol/L Normal [facility] Comment on above: Performed By: #### C BC #### [facility] [address] [place] [address] Dr. Duy James AST [Catalytic activity/Vol] 26 U/L Normal 15-37 [facility] Comment on above: Performed By: #### C BC #### [facility] [address] [place] [address] Dr. Duy James Bilirubin [Mass/Vol] 0.3 mg/dL Normal 0.2-1.0 [facility] Comment on above: Performed By: #### C BC #### [facility] [address] [place] [address] Dr. Duy James Calcium [Mass/Vol] 8.9 mg/dL Normal 8.5-10.1 [facility] Comment on above: Performed By: #### C BC #### [facility] [address] [place] [address] Dr. Duy James Chloride [Moles/Vol] 106 mmol/L Normal 98-107 [facility] Comment on above: Performed By: #### C BC #### [facility] [address] [address] [address] Duy James CO2 [Moles/Vol] 29.3 mmol/L Normal 21.0-32.0 [facility] Comment on above: Performed By: #### C BC #### [facility] [address] [address] [address] Duy James Creatinine [Mass/Vol] 1.12 mg/dL Normal 0.70-1.30 [facility] Comment on above: Performed By: #### C BC #### [facility] [address] [place] [address] Dr. Duy James EGFR-AF GABONESE >60 Normal >=60 [facility] Comment on above: Performed By: #### C BC #### [facility] [address] [place] [address] Dr. Duy James EGFR-NON AF GABONESE >60 Normal >=60 [facility] Comment on above: Performed By: #### C BC #### [facility] [address] [place] [address] Dr. Duy James Globulin (S) [Mass/Vol] 3.3 g/dL Normal [facility] Comment on above: Performed By: #### C BC #### [facility] [address] [place] [address] Dr. Duy James Glucose [Mass/Vol] 157 mg/dL Critically high 74-106 [facility] Comment on above: Performed By: #### C BC #### [facility] [address] [address] [address] Duy James Potassium [Moles/Vol] 4.9 mmol/L Normal 3.5-5.1 [facility] Comment on above: Performed By: #### C BC #### [facility] [address] [place] [address] Dr. Duy James Protein [Mass/Vol] 6.7 g/dL Normal 6.4-8.2 [facility] Comment on above: Performed By: #### C BC #### [facility] [address] [place] [address] Dr. Duy James Sodium [Moles/Vol] 141 mmol/L Normal 136-145 [facility] Comment on above: Performed By: #### C BC #### [facility] [address] [place] [address] Dr. Duy James Urea nitrogen [Mass/Vol] 22.0 mg/dL Critically high 7.0-18.0 [facility] Comment on above: Performed By: #### C BC #### [facility] [address] [place] [address] Dr. Duy James Urea nitrogen/Creatinine [Mass ratio] 19.6 mg/mg Normal [facility] Comment on above: Performed By: #### C BC #### [facility] [address] [place] [address] Dr. Duy James MAGNESIUMon 08-27-2022 Magnesium [Mass/Vol] 2.0 mg/dL Normal 1.8-2.4 [facility] Comment on above: Performed By: #### C MP, MG #### [facility] [address] [place] [address] Dr. Duy James PROF 14(COMP METB)on 023 Albumin [Mass/Vol] 3.6 g/dL Normal 3.4-5.0 [facility] Comment on above: Performed By: #### C MP, MG #### [facility] [address] [place] [address] Dr. Duy James Albumin/Globulin [Mass ratio] 0.9 {ratio} Normal [facility] Comment on above: Performed By: #### C MP, MG #### [facility] [address] [place] [address] Dr. Duy James ALP [Catalytic activity/Vol] 79 U/L Normal 46-116 [facility] Comment on above: Performed By: #### C MP, MG #### [facility] [address] [place] [address] Dr. Duy James ALT [Catalytic activity/Vol] 86 U/L Critically high 16-63 [facility] Comment on above: Performed By: #### C MP, MG #### [facility] [address] [place] [address] Dr. Duy James Anion gap [Moles/Vol] 14.3 mmol/L Normal [facility] Comment on above: Performed By: #### C MP, MG #### [facility] [address] [place] [address] Dr. Duy James AST [Catalytic activity/Vol] 38 U/L Critically high 15-37 [facility] Comment on above: Performed By: #### C MP, MG #### [facility] [address] [place] [address] Dr. Duy James Bilirubin [Mass/Vol] 0.4 mg/dL Normal 0.2-1.0 [facility] Comment on above: Performed By: #### C MP, MG #### [facility] [address] [place] [address] Dr. Duy James Calcium [Mass/Vol] 9.3 mg/dL Normal 8.5-10.1 [facility] Comment on above: Performed By: #### C MP, MG #### [facility] [address] [place] [address] Dr. Duy James Chloride [Moles/Vol] 106 mmol/L Normal 98-107 [facility] Comment on above: Performed By: #### C MP, MG #### [facility] [address] [place] [address] Dr. Duy James CO2 [Moles/Vol] 27.1 mmol/L Normal 21.0-32.0 [facility] Comment on above: Performed By: #### C MP, MG #### [facility] [address] [place] [address] Dr. Duy James Creatinine [Mass/Vol] 1.17 mg/dL Normal 0.70-1.30 [facility] Comment on above: Performed By: #### C MP, MG #### [facility] [address] [place] [address] Dr. Duy James EGFR-AF GABONESE >60 Normal >=60 [facility] Comment on above: Performed By: #### C MP, MG #### [facility] [address] [place] [address] Dr. Duy James EGFR-NON AF GABONESE >60 Normal >=60 [facility] Comment on above: Performed By: #### C MP, MG #### [facility] [address] [address] [address] Duy James Globulin (S) [Mass/Vol] 3.8 g/dL Normal [facility] Comment on above: Performed By: #### C MP, MG #### [facility] [address] [address] [address] Duy James Glucose [Mass/Vol] 163 mg/dL Critically high 74-106 [facility] Comment on above: Performed By: #### C MP, MG #### [facility] [address] [place] [address] Dr. Duy James Potassium [Moles/Vol] 5.4 mmol/L Critically high 3.5-5.1 [facility] Comment on above: Performed By: #### C MP, MG #### [facility] [address] [place] [address] Dr. Duy James Protein [Mass/Vol] 7.4 g/dL Normal 6.4-8.2 [facility] Comment on above: Performed By: #### C MP, MG #### [facility] [address] [place] [address] Dr. Duy James Sodium [Moles/Vol] 142 mmol/L Normal 136-145 [facility] Comment on above: Performed By: #### C MP, MG #### [facility] [address] [place] [address] Dr. Duy James Urea nitrogen [Mass/Vol] 16.0 mg/dL Normal 7.0-18.0 [facility] Comment on above: Performed By: #### C MP, MG #### [facility] [address] [place] [address] Dr. Duy James Urea nitrogen/Creatinine [Mass ratio] 13.7 mg/mg Normal [facility] Comment on above: Performed By: #### C MP, MG #### [facility] [address] [place] [address] Dr. Duy James PROF CHEM 8 (BAS METB)on Anion gap [Moles/Vol] 15.1 mmol/L Normal [facility] Comment on above: Performed By: #### B MP #### [facility] [address] [place] [address] Dr. Duy James Calcium [Mass/Vol] 9.0 mg/dL Normal 8.5-10.1 [facility] Comment on above: Performed By: #### B MP #### [facility] [address] [place] [address] Dr. Duy James Chloride [Moles/Vol] 105 mmol/L Normal 98-107 [facility] Comment on above: Performed By: #### B MP #### [facility] [address] [place] [address] Dr. Duy James CO2 [Moles/Vol] 27.0 mmol/L Normal 21.0-32.0 [facility] Comment on above: Performed By: #### B MP #### [facility] [address] [place] [address] Dr. Duy James Creatinine [Mass/Vol] 1.20 mg/dL Normal 0.70-1.30 [facility] Comment on above: Performed By: #### B MP #### [facility] [address] [place] [address] Dr. Duy James EGFR-AF GABONESE >60 Normal >=60 [facility] Comment on above: Performed By: #### B MP #### [facility] [address] [place] [address] Dr. Duy James EGFR-NON AF GABONESE >60 Normal >=60 [facility] Comment on above: Performed By: #### B MP #### [facility] [address] [place] [address] Dr. Duy James Glucose [Mass/Vol] 155 mg/dL Critically high 74-106 [facility] Comment on above: Performed By: #### B MP #### [facility] [address] [address] [address] Duy James Potassium [Moles/Vol] 5.1 mmol/L Normal 3.5-5.1 [facility] Comment on above: Performed By: #### B MP #### [facility] [address] [id number] [address] Duy James Sodium [Moles/Vol] 142 mmol/L Normal 136-145 [facility] Comment on above: Performed By: #### B MP #### [facility] [address] [address] [address] Duy James Urea nitrogen [Mass/Vol] 19.0 mg/dL Critically high 7.0-18.0 [facility] Comment on above: Performed By: #### B MP #### [facility] [address] [address] [address] Duy James Urea nitrogen/Creatinine [Mass ratio] 15.8 mg/mg Normal [facility] Comment on above: Performed By: #### B MP #### [facility] [id number] Duy James XR CHEST 2 Von 08-27-2022 XR CHEST [...] GRACIE DEAN Date: 2022-08-27 08:27 Normal [facility] BLOOD CULTURE ID PANELon A. baumannii Not detected Normal NOT DETECTED [facility] Comment on above: Performed By: #### C BC #### [facility] [id number] Duy James Bacteriodes fragilis Not detected Normal NOT DETECTED [facility] Comment on above: Performed By: #### C BC #### [facility] [address] [address] [address] Duy PEREIRAD CONTROLS PASSED Normal [facility] Comment on above: Performed By: #### C BC #### [facility] [address] [address] [address] Duy James BCIDBTHD BLOOD CULTURE BOTTLE INFORMATION [facility] Comment on above: Performed By: #### C BC #### [facility] [address] [address] [address] Duy James BCIDHD1 ANTIMICROBIAL RESISTANCE GENES [facility] Comment on above: Performed By: #### C BC #### [facility] [address] [place] [address] Dr. Duy PEREIRADHD2 SEE BELOW [facility] Comment on above: Result Comment: Note : Antimicrobial resitance can occur via multiple mechanisms. A Not Detected result for the [employer] antomicrobial resistance gene assays does not indicate antimicrobial susceptibility. Subculturing is required for species identification and susceptibility testing of isolates. Performed By: #### C BC #### [facility] [address] [address] [address] Duy James BCIDHD3 Positive [facility] Comment on above: Performed By: #### C BC #### [facility] [address] [place] [address] Dr. Duy James BCIDHD4 Negative [facility] Comment on above: Performed By: #### C BC #### [facility] [address] [place] [address] Dr. Duy PEREIRADHD5 YEAST [facility] Comment on above: Performed By: #### C BC #### [facility] [address] [place] [address] Dr. Duy James Bottle Set: Set 1 [facility] Comment on above: Performed By: #### C BC #### [facility] [address] [place] [address] Dr. Duy James Bottle: Anaerobic [facility] Comment on above: Performed By: #### C BC #### [facility] [address] [place] [address] Dr. Duy James C. neoformans/gattii Not detected Normal NOT DETECTED [facility] Comment on above: Performed By: #### C BC #### [facility] [address] [place] [address] Dr. Duy James Gala albicans Not detected Normal NOT DETECTED [facility] Comment on above: Performed By: #### C BC #### [facility] [address] [place] [address] Dr. Duy James Gala auris Not detected Normal NOT DETECTED The [facility] Comment on above: Performed By: #### C BC #### [facility] [address] [place] [address] Dr. Duy James Gala glabrata Not detected Normal NOT DETECTED [facility] Comment on above: Performed By: #### C BC #### [facility] [address] [place] [address] Dr. Duy James Gala Krusei Not detected Normal NOT DETECTED [facility] Comment on above: Performed By: #### C BC #### [facility] [address] [place] [address] Dr. Duy James Gala Parapsilosis Not detected Normal NOT DETECTED [facility] Comment on above: Performed By: #### C BC #### [facility] [address] [place] [address] Dr. Duy James Gala Tropicalis Not detected Normal NOT DETECTED [facility] Comment on above: Performed By: #### C BC #### [facility] [address] [place] [address] Dr. Duy James CTX-M Resistant Gene Not Applicable Normal NOT DETECTE D [facility] Comment on above: Performed By: #### C BC #### [facility] [address] [place] [address] Dr. Duy James E. Cloacae complex Not detected Normal NOT DETECTED [facility] Comment on above: Performed By: #### C BC #### [facility] [address] [place] [address] Dr. Duy James E. faecalis Not detected Normal NOT DETECTED [facility] Comment on above: Performed By: #### C BC #### [facility] [address] [place] [address] Dr. Duy James E. faecium Not detected Normal NOT DETECTED [facility] Comment on above: Performed By: #### C BC #### [facility] [address] [place] [address] Dr. Duy James Enterobacteriaceae Not detected Normal NOT DETECTED [facility] Comment on above: Performed By: #### C BC #### [facility] [address] [place] [address] Dr. Duy James Escherichia coli Not detected Normal NOT DETECTED [facility] Comment on above: Performed By: #### C BC #### [facility] [address] [place] [address] Dr. Duy James H. influenzae Not detected Normal NOT DETECTED [facility] Comment on above: Performed By: #### C BC #### [facility] [address] [place] [address] Dr. Duy James IMP Resistant Gene Not Applicable Normal NOT DETECTED [facility] Comment on above: Performed By: #### C BC #### [facility] [address] [place] [address] Dr. Duy James K. oxytoca Not detected Normal NOT DETECTED [facility] Comment on above: Performed By: #### C BC #### [facility] [address] [place] [address] Dr. Duy James K. pneumoniae Not detected Normal NOT DETECTED [facility] Comment on above: Performed By: #### C BC #### [facility] [address] [place] [address] Dr. Duy James Klebsiella aerogenes Not detected Normal NOT DETECTED [facility] Comment on above: Performed By: #### C BC #### [facility] [address] [place] [address] Dr. Duy James KPC Resistant Gene Not Applicable Normal NOT DETECTED [facility] Comment on above: Performed By: #### C BC #### [facility] [address] [place] [address] Dr. Duy James List. monocytogenes Not detected Normal NOT DETECTED [facility] Comment on above: Performed By: #### C BC #### [facility] [address] [place] [address] Dr. Duy James Mcr-1 Resistant Gene Not Applicable Normal NOT DETECTE D [facility] Comment on above: Performed By: #### C BC #### [facility] [address] [place] [address] Dr. Duy James mecA/C Not Applicable Normal NOT DETECTED [facility] Comment on above: Performed By: #### C BC #### [facility] [address] [place] [address] Dr. Duy James mecA/C MREJ Not Applicable Normal NOT DETECTED [facility] Comment on above: Performed By: #### C BC #### [facility] [address] [place] [address] Dr. Duy James N. meningitidis Not detected Normal NOT DETECTED [facility] Comment on above: Performed By: #### C BC #### [facility] [address] [place] [address] Dr. Duy James NDM Resistant Gene Not Applicable Normal NOT DETECTED [facility] Comment on above: Performed By: #### C BC #### [facility] [address] [place] [address] Dr. Duy James Oxa-48-like Not Applicable Normal NOT DETECTED [facility] Comment on above: Performed By: #### C BC #### [facility] [address] [place] [address] Dr. Duy James Proteus Not detected Normal NOT DETECTED [facility] Comment on above: Performed By: #### C BC #### [facility] [address] [place] [address] Dr. Duy James Pseud. aeruginosa Not detected Normal NOT DETECTED [facility] Comment on above: Performed By: #### C BC #### [facility] [address] [place] [address] Dr. Duy James S. maltophilia Not detected Normal NOT DETECTED [facility] Comment on above: Performed By: #### C BC #### [facility] [address] [place] [address] Dr. Duy James Salmonella Not detected Normal NOT DETECTED [facility] Comment on above: Performed By: #### C BC #### [facility] [address] [place] [address] Dr. Duy James Seratia marcescens Not detected Normal NOT DETECTED [facility] Comment on above: Performed By: #### C BC #### [facility] [address] [place] [address] Dr. Duy James Site: L a/c Normal [facility] Comment on above: Performed By: #### C BC #### [facility] [address] [place] [address] Dr. Duy James Stapmorgan. aureus Not detected Normal NOT DETECTED [facility] Comment on above: Performed By: #### C BC #### [facility] [address] [place] [address] Dr. Duy James Stapmorgan. epidermidis Not detected Normal NOT DETECTED [facility] Comment on above: Performed By: #### C BC #### [facility] [address] [place] [address] Dr. Duy James Staph. lugdunensis Not detected Normal NOT DETECTED [facility] Comment on above: Performed By: #### C BC #### [facility] [address] [place] [address] Dr. Duy James Staphylococcus Detected Critically abnormal NOT DETECTED [facility] Comment on above: Performed By: #### C BC #### [facility] [address] [place] [address] Dr. Duy James Strep. agalactiae Not detected Normal NOT DETECTED [facility] Comment on above: Performed By: #### C BC #### [facility] [address] [place] [address] Dr. Duy James Strep. pneumoniae Not detected Normal NOT DETECTED [facility] Comment on above: Performed By: #### C BC #### [facility] [address] [place] [address] Dr. Duy James Strep. pyogenes Not detected Normal NOT DETECTED [facility] Comment on above: Performed By: #### C BC #### [facility] [address] [place] [address] Dr. Duy James Streptococcus Not detected Normal NOT DETECTED [facility] Comment on above: Performed By: #### C BC #### [facility] [address] [place] [address] Dr. Duy James Cullen/B Resist. Gene Not Applicable Normal NOT DETECTED [facility] Comment on above: Performed By: #### C BC #### [facility] [address] [place] [address] Dr. Duy James VIM Resistant Gene Not Applicable Normal NOT DETECTED [facility] Comment on above: Performed By: #### C BC #### [facility] [address] [place] [address] Dr. Duy [facility] MODE NASAL CANNULA Normal [facility] Comment on above: Performed By: #### C BC #### [facility] [address] [place] [address] Dr. Duy James ALLENS TEST Positive [facility] Comment on above: Performed By: #### C BC #### [facility] [address] [place] [address] Dr. Duy James Base excess Calc (Bld) [Moles/Vol] -1.3000 mmol/L Normal -2.0-2.0 [facility] Comment on above: Performed By: #### C BC #### [facility] [address] [place] [address] Dr. Duy James BIPAP PRESSURE Normal [facility] Comment on above: Performed By: #### C BC #### [facility] [address] [place] [address] Dr. Duy James CPAP [facility] Comment on above: Performed By: #### C BC #### [facility] [address] [place] [address] Dr. Duy James FIO2 [facility] Comment on above: Performed By: #### C BC #### [facility] [address] [address] [address] Duy James HCO3 (Bld) [Moles/Vol] 24.5 mmol/L Normal 22.0-26.0 [facility] Comment on above: Performed By: #### C BC #### [facility] [address] [place] [address] Dr. Duy James LPM 2 Normal [facility] Comment on above: Performed By: #### C BC #### [facility] [address] [place] [address] Dr. Duy James MINUTE VOLUME Normal [facility] Comment on above: Performed By: #### C BC #### [facility] [address] [place] [address] Dr. Duy James Oxygen (Bld) [Partial pressure] 64.3 mm[Hg] Critically low 80.0-100.0 [facility] Comment on above: Performed By: #### C BC #### [facility] [address] [place] [address] Dr. Duy James Oxygen saturation in Blood 92.0 % Critically low 95.0-100.0 [facility] Comment on above: Performed By: #### C BC #### [facility] [address] [place] [address] Dr. Duy James PCO2 45.3 mmHg Critically high 35.0-45.0 [facility] Comment on above: Performed By: #### C BC #### [facility] [address] [place] [address] Dr. Duy James PEEP [facility] Comment on above: Performed By: #### C BC #### [facility] [address] [place] [address] Dr. Duy James pH (Bld) 7.341 [pH] Critically low 7.350-7.450 [facility] Comment on above: Performed By: #### C BC #### [facility] [address] [place] [address] Dr. Duy James PIP Normal [facility] Comment on above: Performed By: #### C BC #### [facility] [address] [place] [address] Dr. Duy James [facility] Comment on above: Performed By: #### C BC #### [facility] [address] [place] [address] Dr. Duy James PUNCTURE SITE LR [facility] Comment on above: Performed By: #### C BC #### [facility] [address] [place] [address] Dr. Duy James [facility] Comment on above: Performed By: #### C BC #### [facility] [address] [place] [address] Dr. Duy James VENT MODE [facility] Comment on above: Performed By: #### C BC #### [facility] [address] [place] [address] Dr. Duy James [facility] Comment on above: Performed By: #### C BC #### [facility] [address] [place] [address] Dr. Duy James BNPon 08-26-2022 Natriuretic peptide B (Bld) [Mass/Vol] 2516.0 pg/mL Critically high <=900.0 [facility] Comment on above: Performed By: #### B MP #### [facility] [address] [place] [address] Dr. Duy James CBC AUTO DIFFon 08-26-2022 BASO # 0.1 103/ul Normal 0.0-0.1 [facility] Comment on above: Performed By: #### C BC #### [facility] [address] [place] [address] Dr. Duy James Basophils/100 WBC (Bld) 1.2 % Normal 0.2-2.0 [facility] Comment on above: Performed By: #### C BC #### [facility] [address] [place] [address] Dr. Duy James EO # 0.4 103/ul Normal 0.0-0.7 [facility] Comment on above: Performed By: #### C BC #### [facility] [address] [place] [address] Dr. Duy James Eosinophils/100 WBC (Bld) 4.6 % Normal 0.9-7.0 [facility] Comment on above: Performed By: #### C BC #### [facility] [address] [place] [address] Dr. Duy James Erythrocyte distribution width (RBC) [Ratio] 13.2 % Normal 11.0-15.0 [facility] Comment on above: Performed By: #### C BC #### [facility] [address] [place] [address] Dr. Duy James Hematocrit (Bld) [Volume fraction] 41.1 % Critically low 42.0-54.0 [facility] Comment on above: Performed By: #### C BC #### [facility] [address] [place] [address] Dr. Duy James Hemoglobin (Bld) [Mass/Vol] 13.8 g/dL Critically low 14.0-18.0 [facility] Comment on above: Performed By: #### C BC #### [facility] [address] [place] [address] Dr. Duy James IG # 0.03 10e3/ul Normal 0.00-0.03 [facility] Comment on above: Performed By: #### C BC #### [facility] [address] [place] [address] Dr. Duy James IG % 0.4 % Normal 0.0-0.5 [facility] Comment on above: Performed By: #### C BC #### [facility] [address] [place] [address] Dr. Duy James LYMPH # 2.9 103/ul Normal 1.2-3.8 [facility] Comment on above: Performed By: #### C BC #### [facility] [address] [place] [address] Dr. Duy James Lymphocytes/100 WBC (Bld) 35.3 % Normal 20.5-60.0 [facility] Comment on above: Performed By: #### C BC #### [facility] [address] [place] [address] Dr. Duy James MANUAL DIFF REQ NO Normal [facility] Comment on above: Performed By: #### C BC #### [facility] [address] [place] [address] Dr. Duy James MCH (RBC) [Entitic mass] 28.9 pg Normal 25.9-34.0 [facility] Comment on above: Performed By: #### C BC #### [facility] [address] [place] [address] Dr. Duy James MCHC (RBC) [Mass/Vol] 33.6 g/dL Normal 29.9-35.2 [facility] Comment on above: Performed By: #### C BC #### [facility] [address] [place] [address] Dr. Duy James MCV (RBC) [Entitic vol] 86.2 fL Normal 80.0-94.0 [facility] Comment on above: Performed By: #### C BC #### [facility] [address] [place] [address] Dr. Duy James MONO # 0.6 103/ul Normal 0.3-0.8 [facility] Comment on above: Performed By: #### C BC #### [facility] [address] [place] [address] Dr. Duy James Monocytes/100 WBC (Bld) 7.1 % Normal 1.7-12.0 [facility] Comment on above: Performed By: #### C BC #### [facility] [address] [place] [address] Dr. Duy Jaems NEUT # 4.2 103/ul Normal 1.4-6.5 [facility] Comment on above: Performed By: #### C BC #### [facility] [address] [place] [address] Dr. Duy James Neutrophils/100 WBC (Bld) 51.4 % Normal 43.0-75.0 [facility] Comment on above: Performed By: #### C BC #### [facility] [address] [address] [address] Duy James Platelet mean volume (Bld) [Entitic vol] 10.1 fL Normal 9.5-13.5 [facility] Comment on above: Performed By: #### C BC #### [facility] [address] [address] [address] Duy James PLT 264 103/ul Normal 150-450 [facility] Comment on above: Performed By: #### C BC #### [facility] [address] [address] [address] Duy James RBC 4.77 106/ul Normal 4.70-6.10 [facility] Comment on above: Performed By: #### C BC #### [facility] [address] [place] [address] Dr. Duy James WBC 8.2 103/ul Normal 4.0-11.0 [facility] Comment on above: Performed By: #### C BC #### [facility] [address] [place] [address] Dr. Duy James CTA CHEST WO W CONon 023 CTA [...] [address] Date: 2022-08-26 20:19 Normal [facility] CULTURE BLOODon 08-26-2022 Microscopic examination of blood, culture Culture Observations: NO GROWTH AT 5 DAYS. Normal [facility] Comment on above: Performed By: #### B MP #### [facility] [address] [place] [id number] Duy James Covid-19 PCR ([facility])on SARS-CoV-2 (COVID-19) RNA RICKY+probe Ql (Unsp spec) Not detected Normal NOT DETECTED [facility] Comment on above: Result Comment: When diagnostic [...] for this test is supported by the [place] of [employer] and Human Service's declaration that [...] used). Performed By: #### C BC #### [facility] [address] [place] [id number] Duy James D-DIMERon 08-26-2022 D-DIMER 1.10 mg/L FEU Critically high <=0.59 [facility] Comment on above: Performed By: #### D DIM #### [facility] [address] [place], [place] [address] Dr. Duy James D-DIMER COMMENTS SEE BELOW Normal [facility] Comment on above: Result Comment: Incr eases [...] hospitalization. Performed By: #### D DIM #### [facility] [address] [place] [address] Dr. Duy James INFLUENZA A AND B [facility]on 08[facility] Normal [facility] [facility] Comment on above: Result Comment: Nega tive for Flu A protein angiten. Infection due to Flu A cannot be ruled out. Flu A angiten in the sample may be below the detection limit of the test. Performed By: #### I NFLUAB #### [facility] [address] [place] [address] Dr. Duy James INFLUBNEG SEE BELOW Normal [facility] Comment on above: Result Comment: Nega tive for Flu B protein antigen. Infection due to Flu B cannot be ruled out. Flu B antigen in the sample may be below the detection limit of the test. Performed By: #### I NFLUAB #### [facility] [address] [place] [address] Dr. Duy James INFLUENZA A AG Negative Normal NEGATIVE SEE COMMENT [facility] Comment on above: Performed By: #### I NFLUAB #### [facility] [address] [place] [address] Dr. Duy James INFLUENZA B AG Negative Normal NEGATIVE SEE COMMENT [facility] Comment on above: Performed By: #### I NFLUAB #### [facility] [address] [place] [address] Dr. Duy James LACTATE/LACTIC ACIDon 2022 Lactate [Moles/Vol] 1.8 mmol/L Normal 0.4-1.9 [facility] Comment on above: Performed By: #### L ACT #### [facility] [address] [place] [address] Dr. Duy James PROF 14(COMP METB)on 023 Albumin [Mass/Vol] 3.7 g/dL Normal 3.4-5.0 [facility] Comment on above: Performed By: #### B CUSTOMER SUPPORT ASSISTANT, CMP, HSTROPN #### [facility] [address] [place] [address] Dr. Duy James Albumin/Globulin [Mass ratio] 1.0 {ratio} Normal [facility] Comment on above: Performed By: #### B CUSTOMER SUPPORT ASSISTANT, CMP, HSTROPN #### [facility] [address] [address] [address] Duy James ALP [Catalytic activity/Vol] 84 U/L Normal 46-116 [facility] Comment on above: Performed By: #### B CUSTOMER SUPPORT ASSISTANT, CMP, HSTROPN #### [facility] [address] [place] [address] Dr. Duy James ALT [Catalytic activity/Vol] 103 U/L Critically high 16-63 [facility] Comment on above: Performed By: #### B CUSTOMER SUPPORT ASSISTANT, CMP, HSTROPN #### [facility] [address] [place] [address] Dr. Duy James Anion gap [Moles/Vol] 15.5 mmol/L Normal [facility] Comment on above: Performed By: #### B CUSTOMER SUPPORT ASSISTANT, CMP, HSTROPN #### [facility] [address] [place] [address] Dr. Duy James AST [Catalytic activity/Vol] 62 U/L Critically high 15-37 [facility] Comment on above: Performed By: #### B CUSTOMER SUPPORT ASSISTANT, CMP, HSTROPN #### [facility] [address] [place] [address] Dr. Duy James Bilirubin [Mass/Vol] 0.3 mg/dL Normal 0.2-1.0 [facility] Comment on above: Performed By: #### B CUSTOMER SUPPORT ASSISTANT, CMP, HSTROPN #### [facility] [address] [place] [address] Dr. Duy James Calcium [Mass/Vol] 8.8 mg/dL Normal 8.5-10.1 [facility] Comment on above: Performed By: #### B CUSTOMER SUPPORT ASSISTANT, CMP, HSTROPN #### [facility] [address] [place] [address] Dr. Duy James Chloride [Moles/Vol] 106 mmol/L Normal 98-107 [facility] Comment on above: Performed By: #### B CUSTOMER SUPPORT ASSISTANT, CMP, HSTROPN #### [facility] [address] [address] [address] Duy James CO2 [Moles/Vol] 25.9 mmol/L Normal 21.0-32.0 [facility] Comment on above: Performed By: #### B CUSTOMER SUPPORT ASSISTANT, CMP, HSTROPN #### [facility] [address] [address] [address] Duy James Creatinine [Mass/Vol] 1.32 mg/dL Critically high 0.70-1.30 [facility] Comment on above: Performed By: #### B CUSTOMER SUPPORT ASSISTANT, CMP, HSTROPN #### [facility] [address] [place] [address] Dr. Duy James EGFR-AF GABONESE >60 Normal >=60 [facility] Comment on above: Performed By: #### B CUSTOMER SUPPORT ASSISTANT, CMP, HSTROPN #### [facility] [address] [place] [address] Dr. Duy James EGFR-NON AF GABONESE 54 mL/min/1.73m2 Critically low >=60 [facility] Comment on above: Performed By: #### B CUSTOMER SUPPORT ASSISTANT, CMP, HSTROPN #### [facility] [address] [place] [address] Dr. Duy James Globulin (S) [Mass/Vol] 3.6 g/dL Normal [facility] Comment on above: Performed By: #### B CUSTOMER SUPPORT ASSISTANT, CMP, HSTROPN #### [facility] [address] [place] [address] Dr. Duy James Glucose [Mass/Vol] 146 mg/dL Critically high 74-106 [facility] Comment on above: Performed By: #### B CUSTOMER SUPPORT ASSISTANT, CMP, HSTROPN #### [facility] [address] [place] [address] Dr. Duy James Potassium [Moles/Vol] 4.4 mmol/L Normal 3.5-5.1 [facility] Comment on above: Performed By: #### B CUSTOMER SUPPORT ASSISTANT, CMP, HSTROPN #### [facility] [address] [place] [address] Dr. Duy James Protein [Mass/Vol] 7.3 g/dL Normal 6.4-8.2 [facility] Comment on above: Performed By: #### B CUSTOMER SUPPORT ASSISTANT, CMP, HSTROPN #### [facility] [address] [place] [address] Dr. Duy James Sodium [Moles/Vol] 143 mmol/L Normal 136-145 [facility] Comment on above: Performed By: #### B CUSTOMER SUPPORT ASSISTANT, CMP, HSTROPN #### [facility] [address] [place] [address] Dr. Duy James Urea nitrogen [Mass/Vol] 15.0 mg/dL Normal 7.0-18.0 [facility] Comment on above: Performed By: #### B CUSTOMER SUPPORT ASSISTANT, CMP, HSTROPN #### [facility] [address] [place] [address] Dr. Duy James Urea nitrogen/Creatinine [Mass ratio] 11.4 mg/mg Normal [facility] Comment on above: Performed By: #### B CUSTOMER SUPPORT ASSISTANT, CMP, HSTROPN #### [facility] [address] [place] [address] Dr. Duy James TROPONIN, HIGH SENSITIVITYon 08-26-2022 HSTROP 41.1 pg/mL Normal 4.0-76.1 [facility] Comment on above: Result Comment: CUT- OFF POINTS HAVE BEEN ESTABLISHED BASED ON THE FOURTH UNIVERSAL DEFINITIONS OF MYOCARDIAL INFARCTION. THE UPPER REFERENCE LIMIT (URL) OF TROPONIN, DEFINED THE 99TH PERCENTILE OF cTnI DISTRIBUTION IN A REFERENCE POPULATION, HAS BEEN CONFIRMED THE DECISION THRESHOLD FOR ME DIAGNOSIS. Performed By: #### B MP #### [facility] [address] [place] [address] Dr. Duy James CBC AUTO DIFFon 05-18-2022 BASO # 0.1 103/ul Normal 0.0-0.1 [facility] Comment on above: Performed By: #### C BC #### [facility] [address] [place] [address] Dr. Duy James Basophils/100 WBC (Bld) 1.5 % Normal 0.2-2.0 [facility] Comment on above: Performed By: #### C BC #### [facility] [address] [place] [address] Dr. Duy James EO # 0.3 103/ul Normal 0.0-0.7 [facility] Comment on above: Performed By: #### C BC #### [facility] [address] [place] [address] Dr. Duy James Eosinophils/100 WBC (Bld) 4.7 % Normal 0.9-7.0 [facility] Comment on above: Performed By: #### C BC #### [facility] [address] [place] [address] Dr. Duy James Erythrocyte distribution width (RBC) [Ratio] 12.8 % Normal 11.0-15.0 [facility] Comment on above: Performed By: #### C BC #### [facility] [address] [place] [address] Dr. Duy James Hematocrit (Bld) [Volume fraction] 39.1 % Critically low 42.0-54.0 [facility] Comment on above: Performed By: #### C BC #### [facility] [address] [place] [address] Dr. Duy James Hemoglobin (Bld) [Mass/Vol] 13.2 g/dL Critically low 14.0-18.0 [facility] Comment on above: Performed By: #### C BC #### [facility] [address] [place] [address] Dr. Duy James IG # 0.03 10e3/ul Normal 0.00-0.03 [facility] Comment on above: Performed By: #### C BC #### [facility] [address] [place] [address] Dr. Duy James IG % 0.5 % Normal 0.0-0.5 [facility] Comment on above: Performed By: #### C BC #### [facility] [address] [place] [address] Dr. Duy James LYMPH # 1.4 103/ul Normal 1.2-3.8 [facility] Comment on above: Performed By: #### C BC #### [facility] [address] [place] [address] Dr. Duy James Lymphocytes/100 WBC (Bld) 23.8 % Normal 20.5-60.0 [facility] Comment on above: Performed By: #### C BC #### [facility] [address] [place] [address] Dr. Duy James MANUAL DIFF REQ NO Normal [facility] Comment on above: Performed By: #### C BC #### [facility] [address] [place] [address] Dr. Duy James MCH (RBC) [Entitic mass] 28.8 pg Normal 25.9-34.0 [facility] Comment on above: Performed By: #### C BC #### [facility] [address] [place] [address] Dr. Duy James MCHC (RBC) [Mass/Vol] 33.8 g/dL Normal 29.9-35.2 [facility] Comment on above: Performed By: #### C BC #### [facility] [address] [place] [address] Dr. Duy James MCV (RBC) [Entitic vol] 85.2 fL Normal 80.0-94.0 [facility] Comment on above: Performed By: #### C BC #### [facility] [address] [place] [address] Dr. Duy James MONO # 0.5 103/ul Normal 0.3-0.8 [facility] Comment on above: Performed By: #### C BC #### [facility] [address] [place] [address] Dr. Duy James Monocytes/100 WBC (Bld) 7.8 % Normal 1.7-12.0 [facility] Comment on above: Performed By: #### C BC #### [facility] [address] [place] [address] Dr. Duy James NEUT # 3.7 103/ul Normal 1.4-6.5 [facility] Comment on above: Performed By: #### C BC #### [facility] [address] [place] [address] Dr. Duy James Neutrophils/100 WBC (Bld) 61.7 % Normal 43.0-75.0 [facility] Comment on above: Performed By: #### C BC #### [facility] [address] [place] [address] Dr. Duy James Platelet mean volume (Bld) [Entitic vol] 9.6 fL Normal 9.5-13.5 [facility] Comment on above: Performed By: #### C BC #### [facility] [address] [place] [address] Dr. Duy James PLT 199 103/ul Normal 150-450 [facility] Comment on above: Performed By: #### C BC #### [facility] [address] [place] [address] Dr. Duy James RBC 4.59 106/ul Critically low 4.70-6.10 [facility] Comment on above: Performed By: #### C BC #### [facility] [address] [place] [address] Dr. Duy James WBC 6.0 103/ul Normal 4.0-11.0 [facility] Comment on above: Performed By: #### C BC #### [facility] [address] [place] [address] Dr. Duy James METHYLMALONIC ACID (MMA)on 0 03-03-2022 Methylmalonic Acid, Serum 232 nmol/L Normal 0-378 [facility] Comment on above: Performed By: #### M MA2 #### [facility] [address] [place] [address] Dr. Duy James CBC AUTO DIFFon 02-25-2022 BASO # 0.1 103/ul Normal 0.0-0.1 [facility] Comment on above: Performed By: #### C BC #### [facility] [address] [place] [address] Dr. Duy James Basophils/100 WBC (Bld) 1.3 % Normal 0.2-2.0 [facility] Comment on above: Performed By: #### C BC #### [facility] [address] [place] [address] Dr. Duy James EO # 0.2 103/ul Normal 0.0-0.7 [facility] Comment on above: Performed By: #### C BC #### [facility] [address] [place] [address] Dr. Duy James Eosinophils/100 WBC (Bld) 4.8 % Normal 0.9-7.0 [facility] Comment on above: Performed By: #### C BC #### [facility] [address] [place] [address] Dr. Duy James Erythrocyte distribution width (RBC) [Ratio] 13.9 % Normal 11.0-15.0 [facility] Comment on above: Performed By: #### C BC #### [facility] [address] [place] [address] Dr. Duy James Hematocrit (Bld) [Volume fraction] 36.2 % Critically low 42.0-54.0 [facility] Comment on above: Performed By: #### C BC #### [facility] [address] [place] [address] Dr. Duy James Hemoglobin (Bld) [Mass/Vol] 12.2 g/dL Critically low 14.0-18.0 [facility] Comment on above: Performed By: #### C BC #### [facility] [address] [place] [address] Dr. Duy James IG # 0.01 10e3/ul Normal 0.00-0.03 [facility] Comment on above: Performed By: #### C BC #### [facility] [address] [place] [address] Dr. Duy James IG % 0.2 % Normal 0.0-0.5 [facility] Comment on above: Performed By: #### C BC #### [facility] [address] [place] [address] Dr. Duy James LYMPH # 1.3 103/ul Normal 1.2-3.8 [facility] Comment on above: Performed By: #### C BC #### [facility] [address] [place] [address] Dr. Duy James Lymphocytes/100 WBC (Bld) 29.3 % Normal 20.5-60.0 [facility] Comment on above: Performed By: #### C BC #### [facility] [address] [place] [address] Dr. Duy James MANUAL DIFF REQ NO Normal [facility] Comment on above: Performed By: #### C BC #### [facility] [address] [place] [address] Dr. Duy James MCH (RBC) [Entitic mass] 29.5 pg Normal 25.9-34.0 [facility] Comment on above: Performed By: #### C BC #### [facility] [address] [place] [address] Dr. Duy James MCHC (RBC) [Mass/Vol] 33.7 g/dL Normal 29.9-35.2 [facility] Comment on above: Performed By: #### C BC #### [facility] [address] [place] [address] Dr. Duy James MCV (RBC) [Entitic vol] 87.7 fL Normal 80.0-94.0 [facility] Comment on above: Performed By: #### C BC #### [facility] [address] [place] [address] Dr. Duy James MONO # 0.4 103/ul Normal 0.3-0.8 [facility] Comment on above: Performed By: #### C BC #### [facility] [address] [place] [address] Dr. Duy James Monocytes/100 WBC (Bld) 9.4 % Normal 1.7-12.0 [facility] Comment on above: Performed By: #### C BC #### [facility] [address] [place] [address] Dr. Duy James NEUT # 2.5 103/ul Normal 1.4-6.5 [facility] Comment on above: Performed By: #### C BC #### [facility] [address] [address] [address] Duy James Neutrophils/100 WBC (Bld) 55.0 % Normal 43.0-75.0 [facility] Comment on above: Performed By: #### C BC #### [facility] [address] [address] [address] Duy James Platelet mean volume (Bld) [Entitic vol] 9.4 fL Critically low 9.5-13.5 [facility] Comment on above: Performed By: #### C BC #### [facility] [address] [address] [address] Duy James PLT 142 103/ul Critically low 150-450 [facility] Comment on above: Performed By: #### C BC #### [facility] [address] [place] [address] Dr. Duy James RBC 4.13 106/ul Critically low 4.70-6.10 [facility] Comment on above: Performed By: #### C BC #### [facility] [address] [address] [address] Duy James WBC 4.6 103/ul Normal 4.0-11.0 [facility] Comment on above: Performed By: #### C BC #### [facility] [address] [place] [address] Dr. Duy James FERRITINon 02-25-2022 Ferritin [Mass/Vol] 274.0 ng/mL Normal 26.0-388.0 [facility] Comment on above: Performed By: #### C BC #### [facility] [address] [address] [address] Duy James IRON AND TIBCon 02-25-2022 % SATURATION 33.8 % Normal [facility] Comment on above: Performed By: #### C BC #### [facility] [address] [place] [address] Dr. Duy James Iron [Mass/Vol] 97.0 ug/dL Normal 65.0-175.0 [facility] Comment on above: Performed By: #### C BC #### [facility] [address] [place], [place] [address] Dr. Duy James TIBC DIRECT 287.0 ug/dL Normal 250.0-450.0 [facility] Comment on above: Performed By: #### C BC #### [facility] [address] [place], [place] [address] Dr. Duy James VIT B12 AND FOLATEon 022 Cobalamin (Vitamin B12) [Mass/Vol] 817.0 pg/mL Normal 193.0-986.0 [facility] Comment on above: Performed By: #### C BC #### [facility] [id number] Duy James FOLATE 16.90 ng/mL Normal 8.60-58.90 [facility] Comment on above: Performed By: #### C BC #### [facility] [id number] Duy James XR CHEST 2 Von 12-28-2021 XR CHEST [...] ALEXA MCKENZIE Date: 2021-12-28 13:59 Normal [facility] COVID Quick Testingon 2021 Result Negative [facility] Other Quick Fluon 08-07-2021 FLUAV Ab CF (S) [Titer] Negative [facility] Other FLUBV Ab CF (S) [Titer] Negative [facility] Other COVID Quick Testingon 2020 Result Positive [facility] Other Vital Signs Date Time Vital Sign Value Performing Clinician Facility 12-25-2023 07:50-0400 Diastolic blood pressure 66 mm[Hg] Meghan Lue [facility] 12-25-2023 07:50-0400 Heart rate 57 /min Meghan Lue [facility] 12-25-2023 07:50-0400 Mean blood pressure 91 mm[Hg] Meghan Lue [facility] 12-25-2023 07:50-0400 Systolic blood pressure 143 mm[Hg] Meghan Lue [facility] 12-25-2023 07:49-0400 Heart rate 62 /min Meghan Lue [facility] 12-25-2023 07:49-0400 SaO2% (BldA) [Mass fraction] 98 % Meghan Lue [facility] 12-25-2023 07:48-0400 Body temperature 98.06 [degF] Meghan Lue [facility] 12-25-2023 07:48-0400 Blood Pressure Location Meghan Lue [facility] 12-25-2023 07:48-0400 Diastolic blood pressure 61 mm[Hg] Meghan Lue [facility] 12-25-2023 07:48-0400 Mean blood pressure 95 mm[Hg] Meghan Lue [facility] 12-25-2023 07:48-0400 Systolic blood pressure 164 mm[Hg] Meghan Lue [facility] 12-25-2023 07:48-0400 Respiratory rate 16 /min Meghan Lue [facility] 11-29-2023 10:55-0400 Blood Pressure Location Meghan Lue [facility] 11-29-2023 10:55-0400 Diastolic blood pressure 74 mm[Hg] Meghan Lue [facility] 11-29-2023 10:55-0400 Heart rate 68 /min Meghan Lue [facility] 11-29-2023 10:55-0400 Respiratory rate 16 /min Meghan Lue [facility] 11-29-2023 10:55-0400 Systolic blood pressure 163 mm[Hg] Meghan Lue [facility] 11-28-2023 08:42-0400 Body height 177.8 cm [facility] 11-28-2023 08:42-0400 Body mass index (BMI) [Ratio] 33.2 kg/m2 [facility] 11-28-2023 08:42-0400 Body weight 105 kg [facility] 11-28-2023 08:42-0400 Diastolic blood pressure 80 mm[Hg] [facility] 11-28-2023 08:42-0400 Heart rate 64 /min [facility] 11-28-2023 08:42-0400 Respiratory rate 12 /min [facility] 11-28-2023 08:42-0400 Systolic blood pressure 188 mm[Hg] [facility] 06-16-2023 10:00-0500 Diastolic blood pressure 92 mm[Hg] Meghan Lue [facility] 06-16-2023 10:00-0500 Mean blood pressure 115 mm[Hg] Meghan Lue [facility] 06-16-2023 10:00-0500 Systolic blood pressure 162 mm[Hg] Meghan Lue [facility] 06-16-2023 09:44-0500 Blood Pressure Location Meghan Lue [facility] 06-16-2023 09:44-0500 Body temperature 97.16 [degF] Meghan Lue [facility] 06-16-2023 09:44-0500 Diastolic blood pressure 88 mm[Hg] Meghan Lue [facility] 06-16-2023 09:44-0500 Heart rate 78 /min Meghan Lue [facility] 06-16-2023 09:44-0500 Systolic blood pressure 144 mm[Hg] Meghan Lue [facility] 06-06-2023 17:10-0500 Diastolic blood pressure 70 mm[Hg] Meghan Lue [facility] 06-06-2023 17:10-0500 Heart rate 60 /min Meghan Lue [facility] 06-06-2023 17:10-0500 Respiratory rate 16 /min Meghan Lue [facility] 06-06-2023 17:10-0500 SaO2% (BldA) [Mass fraction] 100 % Meghan Lue [facility] 06-06-2023 17:10-0500 Systolic blood pressure 120 mm[Hg] Meghan Lue [facility] 06-06-2023 17:02-0500 Heart rate 62 /min Meghan Lue [facility] 06-06-2023 17:02-0500 SaO2% (BldA) [Mass fraction] 100 % Meghan Lue [facility] 06-06-2023 17:02-0500 Respiratory rate 16 /min Meghan Lue [facility] 06-06-2023 16:52-0500 Diastolic blood pressure 56 mm[Hg] Meghan Lue [facility] 06-06-2023 16:52-0500 Heart rate 60 /min Meghan Lue [facility] 06-06-2023 16:52-0500 SaO2% (BldA) [Mass fraction] 97 % Meghan Lue [facility] 06-06-2023 16:52-0500 Systolic blood pressure 89 mm[Hg] Meghan Lue [facility] 06-06-2023 16:29-0500 Diastolic blood pressure 89 mm[Hg] Meghan Lue [facility] 06-06-2023 16:29-0500 Systolic blood pressure 154 mm[Hg] Meghan Lue [facility] 06-06-2023 14:00-0500 Blood Pressure Location Meghan Lue [facility] 06-06-2023 14:00-0500 Mean blood pressure 84 mm[Hg] Meghan Lue [facility] 06-06-2023 14:00-0500 Respiratory rate 18 /min Meghan Lue [facility] 05-10-2023 10:54-0500 Blood Pressure Location Meghan Lue [facility] 05-10-2023 10:54-0500 Diastolic blood pressure 76 mm[Hg] Meghan Lue [facility] 05-10-2023 10:54-0500 Heart rate 68 /min Meghan Lue [facility] 05-10-2023 10:54-0500 Respiratory rate 16 /min Meghan Lue [facility] 05-10-2023 10:54-0500 Systolic blood pressure 132 mm[Hg] Meghan Lue [facility] 04-11-2023 11:40-0400 Blood Pressure Location THERESA FLAKO [facility] 04-11-2023 11:40-0400 Diastolic blood pressure 75 mm[Hg] THERESA FLAKO [facility] 04-11-2023 11:40-0400 Heart rate 68 /min THERESA FLAKO [facility] 04-11-2023 11:40-0400 Respiratory rate 16 /min THERESA FLAKO [facility] 04-11-2023 11:40-0400 Systolic blood pressure 134 mm[Hg] THERESA FLAKO [facility] 12-20-2022 10:11-0400 Blood Pressure Location THERESA FLAKO [facility] 12-20-2022 10:11-0400 Diastolic blood pressure 80 mm[Hg] THERESA FLAKO [facility] 12-20-2022 10:11-0400 Heart rate 70 /min THERESA FLEMING [facility] 12-20-2022 10:11-0400 Respiratory rate 16 /min THERESA MADRIDRY [facility] 12-20-2022 10:11-0400 Systolic blood pressure 140 mm[Hg] THERESA FLEMING [facility] 11-23-2022 08:30-0400 Body height 177.8 cm Gio Ball Other [facility] Other 11-23-2022 08:30-0400 Body mass index (BMI) [Ratio] 32.42 kg/m2 Gio Ball Other [facility] Other 11-23-2022 08:30-0400 Body weight 102.51 kg Gio Ball Other [facility] Other 11-23-2022 08:30-0400 Diastolic blood pressure 69 mm[Hg] Gio Ball Other [facility] Other 11-23-2022 08:30-0400 Respiratory rate 12 /min Gio Ball Other [facility] Other 11-23-2022 08:30-0400 Systolic blood pressure 162 mm[Hg] Gio Ball Other [facility] Other 08-31-2022 10:00-0500 Body height 177.8 cm Gio Ball Other [facility] Other 08-31-2022 10:00-0500 Body mass index (BMI) [Ratio] 33.43 kg/m2 Gio Ball Other [facility] Other 08-31-2022 10:00-0500 Body weight 105.69 kg Gio Ball Other [facility] Other 08-31-2022 10:00-0500 Diastolic blood pressure 80 mm[Hg] Gio Ball Other [facility] Other 08-31-2022 10:00-0500 Respiratory rate 16 /min Gio Ball Other [facility] Other 08-31-2022 10:00-0500 SaO2% (BldA) [Mass fraction] 98 % Gio Ball Other [facility] Other 08-31-2022 10:00-0500 Systolic blood pressure 132 mm[Hg] Gio Ball Other [facility] Other 10-26-2021 09:11-0400 Blood Pressure Location Daniel Kern Jr. [facility] 10-26-2021 09:11-0400 Diastolic blood pressure 77 mm[Hg] Daniel Kern Jr. [facility] 10-26-2021 09:11-0400 Heart rate 78 /min Daniel Kern Jr. [facility] 10-26-2021 09:11-0400 Respiratory rate 16 /min Daniel Kern Jr. [facility] 10-26-2021 09:11-0400 Systolic blood pressure 181 mm[Hg] Daniel Kern Jr. [facility] 08-07-2021 11:00-0500 Body height 177.8 cm Gina Starks Other [facility] Other 08-07-2021 11:00-0500 Body mass index (BMI) [Ratio] 30.13 kg/m2 Gina Starks Other [facility] Other 08-07-2021 11:00-0500 Body temperature 101 [degF] Gina Starks Other [facility] Other 08-07-2021 11:00-0500 Body weight 95.26 kg Gina Starks Other [facility] Other 08-07-2021 11:00-0500 Respiratory rate 18 /min Gina Starks Other [facility] Other 08-07-2021 11:00-0500 SaO2% (BldA) [Mass fraction] 97 % Gina Starks Other [facility] Other 05-24-2021 18:15-0500 Body height 177.8 cm Sybil Lee Other [facility] Other 05-24-2021 18:15-0500 Body mass index (BMI) [Ratio] 30.85 kg/m2 Sybil Lee Other [facility] Other 05-24-2021 18:15-0500 Body temperature 96.9 [degF] Sybil Lee Other [facility] Other 05-24-2021 18:15-0500 Body weight 97.52 kg Sybil Lee Other [facility] Other 05-24-2021 18:15-0500 SaO2% (BldA) [Mass fraction] 91 % Sybil Lee Other [facility] Other Encounters Encounter Date Encounter Type Care Provider Facility Start: 02-12-2024 End: 02-12-2024 ambulatory [facility] Start: 02-12-2024 End: 02-12-2024 Encounter for other preprocedural examination [facility] Start: 01-12-2024 ambulatory Meghan Brito Facility:[facility] Start: 01-03-2024 Encounter for other preprocedural examination [facility] Start: 01-03-2024 End: 01-03-2024 ambulatory [facility] Start: 12-25-2023 End: 12-25-2023 ambulatory Meghan Brito Facility:[facility] Start: 12-25-2023 End: 12-25-2023 Patient encounter procedure Meghan Brito [facility] Start: 11-29-2023 End: 01-03-2024 Pre-admission assessment Meghan Brito [facility] Start: 11-29-2023 End: 11-29-2023 ambulatory [facility] [place] [place] Start: 11-29-2023 End: 11-29-2023 Patient encounter procedure Meghan Brito [facility] [place] Start: 11-28-2023 End: 11-28-2023 ambulatory [facility] Work Phone: Start: 11-28-2023 End: 11-28-2023 Encounter for general adult medical examination without abnormal findings [facility] Start: 11-28-2023 End: 11-28-2023 Patient encounter procedure [facility] Work Phone: Start: 11-24-2023 Non-patient / Non-visit [facility] Work Phone: Start: 07-31-2023 End: 07-31-2023 ambulatory Meghan M. Lue Facility:[facility] Start: 07-31-2023 End: 07-31-2023 Patient encounter procedure Meghan M. Lue [facility] Start: 06-30-2023 End: 06-30-2023 ambulatory Meghan M. Lue Facility:[facility] Start: 06-30-2023 End: 06-30-2023 Lab Drop off Meghan M. Lue [facility] Start: 06-30-2023 End: 06-30-2023 ambulatory Meghan M. Lue Facility:[facility] Start: 06-30-2023 End: 06-30-2023 Patient encounter procedure Meghan M. Lue [facility] Start: 06-22-2023 End: 06-22-2023 ambulatory Gio Cavanaugh Other [facility] Other Start: 06-22-2023 Telephone encounter Gio BRITTON [facility] Start: 06-21-2023 Telephone encounter Gio BRITTON [facility] Start: 06-21-2023 End: 06-21-2023 ambulatory Meghan M. Lue [facility] Other Start: 06-21-2023 End: 06-21-2023 Patient encounter procedure [facility] Start: 06-20-2023 End: 06-20-2023 ambulatory Gio Cavanaugh Other [facility] Other Start: 06-20-2023 Telephone encounter Gio Cavanaugh [facility] Start: 06-18-2023 End: 06-18-2023 ambulatory Gio Cavanaugh Other [facility] Other Start: 06-18-2023 Telephone encounter Gio Diaz [facility] Start: 06-16-2023 End: 06-16-2023 ambulatory [facility]han [facility]. Lue [facility] Start: 06-16-2023 End: 06-16-2023 Patient encounter procedure [facility]. Lue [facility] Start: 06-15-2023 End: 06-15-2023 ambulatory Meghan M. Lue Facility:[facility] [place] Start: 06-15-2023 End: 06-15-2023 Patient encounter procedure [facility]. [facility] Start: 06-14-2023 End: 06-14-2023 ambulatory Meghan M. Lue Facility:[facility] [place] Start: 06-14-2023 End: 06-14-2023 Patient encounter procedure [facility] Start: 06-06-2023 End: 06-07-2023 ambulatory DUY JAMES MD Facility:[id number] Start: 06-06-2023 End: 06-06-2023 Admission to same day surgery center Meghan M. Lue [facility] Start: 06-06-2023 End: 06-06-2023 ambulatory Meghan Brito Facility:[facility] Start: 06-05-2023 End: 06-05-2023 ambulatory Gio Cavanaugh Other [facility] Other Start: 06-05-2023 Telephone encounter Gio BRITTON [facility] Start: 05-10-2023 End: 05-10-2023 ambulatory Meghan Bernstein. Daryl Facility:[facility] Start: 05-10-2023 End: 05-10-2023 Patient encounter procedure Meghan Brito [facility] Start: 04-28-2023 ambulatory Meghan Bernstein. Daryl Facility:[facility] Start: 04-27-2023 End: 04-27-2023 ambulatory Gio Cavanaugh Other [facility] Other Start: 04-27-2023 Telephone encounter Gio Cavanaugh [facility] Start: 04-11-2023 End: 04-11-2023 ambulatory THERESA FLEMING Facility:[facility] Start: 04-11-2023 End: 04-11-2023 Patient encounter procedure THERESA FLEMING [facility] Start: 04-04-2023 End: 04-04-2023 ambulatory Gio Cavanaugh Other [facility] Other Start: 04-04-2023 Telephone encounter Gio Cavanaugh [facility] Start: 04-03-2023 End: 04-03-2023 ambulatory Theresa Fleming Facility:[facility] Start: 04-03-2023 End: 04-03-2023 ambulatory DO Gio Ball Work Phone: [facility] Work Phone: Start: 04-03-2023 End: 04-03-2023 Patient encounter procedure DO Gio Ball Work Phone: [facility] [place] Work Phone: Start: 12-20-2022 End: 12-20-2022 Patient encounter procedure THERESA FLEMING [facility] Start: 12-13-2022 End: 12-13-2022 ambulatory Gio Cavanaugh Other [facility] Other Start: 12-13-2022 Telephone encounter Gio Cavanaugh [facility] Start: 12-12-2022 End: 12-12-2022 ambulatory Gio Cavanaugh Other [facility] Other Start: 12-12-2022 Telephone encounter Gio Cavanaugh [facility] Start: 11-23-2022 End: 11-23-2022 ambulatory Gio Cavanaugh Other [facility] Other Start: 11-23-2022 Encounter for genera l adult medical examination without abnormal findings Gio Cavanaugh [facility] Start: 11-23-2022 Periodic preventive med est patient 65yrs& older Gio Cavanaugh [facility] Start: 11-07-2022 End: 11-08-[address] GIO CAVANAUGH Facility:[facility] Start: 08-31-2022 End: 08-31-2022 ambulatory Gio Cavanaugh Other [facility] Other Start: 08-31-2022 Office outpatient vi sit 25 minutes Gio Cavanaugh [facility] Start: 08-26-2022 End: 08-28-2022 Evaluation and management of inpatient DR DARIUS GIANG . Facility:[facility] Start: 05-18-2022 End: 05-19-[address] GIO CAVANAUGH Facility:[facility] Start: 02-25-2022 End: 02-26-[address] GIO CAVANAUGH Facility:[facility] Start: 01-07-[address] GIO CAVANAUGH Facili ty:[facility] Start: 12-28-2021 End: 12-29-[address] GIO CAVANAUGH Facility:[facility] Start: 11-18-2021 Adult health examination Joseph Cavanaugh Other [facility] Other Start: 10-26-2021 End: 10-26-2021 Patient encounter procedure Daniel Kern Jr. [facility] Start: 08-07-2021 End: 08-07-2021 ambulatory Gina Starks Other [facility] Other Start: 08-07-2021 Office outpatient vi sit 15 minutes Gina Starks [facility] Start: 05-24-2021 End: 05-24-2021 ambulatory Sybilsofía Lee Other [facility] Other Start: 05-24-2021 Office outpatient vi sit 15 minutes Sybil Rosa [facility] Procedures Date Procedure Procedure Detail Performing Clinician Start: 07-27-2023 Cystoscopy Meghan Brito Start: 06-06-2023 Prostate biopsy elizabeth urbano (specimen) Meghan Brito Start: 04-03-2023 MR prostate wo/w con DO Gio Cavanaugh Work Phone: Start: 04-07-2020 Transrectal biopsy o f prostate using ultrasound guidance Daniel Kern Jr. Start: 01-30-2019 Screening for malign ant neoplasm of colon Gio Cavanaugh Other Start: 10-31-2018 General examination of patient Gio Cavanaugh Other Start: 08-12-2015 Transrectal biopsy o f prostate using ultrasound guidance Daniel Kern Jr. Hernia repair Daniel major Screening for malign ant neoplasm of prostate Gio Cavanaugh Other Tonsillectomy Daniel major Plan of Treatment Date Care Activity Detail Author [facility] Immunizations Immunization Date Immunization Notes Care Provider Renetta thacker 05-25-2023 influenza virus vaccine, unspecified formulation [facility] 05-25-2023 influenza, high dose seasonal, preservative-free Gio Cavanaugh Other [facility] Other 05-25-2023 pneumococcal polysaccharide vaccine, 23 valent Gio Cavanaugh Other [facility] 02-24-2022 influenza virus vaccine, unspecified formulation THERESA FLEMING [facility] 02-24-2022 influenza, high dose seasonal, preservative-free Gio Cavanaugh Other [facility] Other 11-18-2021 pneumococcal conjuga te vaccine, 13 valent Gio Cavanaugh Other [facility] 09-01-2021 COVID-19 Vaccine Moderna - Documentation Purposes Only Gio Cavanaugh Other [facility] 06-26-2021 pneumococcal conjuga te vaccine, 13 valent Gio Cavanaugh Other [facility] 09-02-2020 SARS-CoV-2 (COVID-19 ) Ad26 vaccine, recombinant Daniel Kern Jr. [facility] 05-03-2019 influenza virus vaccine, split virus (incl. purified surface antigen) Gio Cavanaugh Other [facility] Other 05-03-2019 influenza virus vaccine, unspecified formulation [facility] 05-09-2018 influenza virus vaccine, split virus (incl. purified surface antigen) Gio Cavanaugh Other [facility] Other 05-09-2018 influenza virus vaccine, unspecified formulation [facility] Payers Date Payer Category Payer Unknown [id number] 2023 Medicare [id number] 2023 Medicare [id number] 1959 Self-pay 1959 Unknown [id number] 2.16. [id number] 1956 Unknown [id number] 2.16.84 0.1.660203.3.579.2.593 1956 Unknown [id number] 2.16.84 0.1.269236.3.579.2.593 1956 Unknown [id number] 2.16.84 0.1.191830.3.579.2.593 1956 Unknown [id number] 2.16.84 0.1.069561.3.579.2.593 1956 Unknown [id number] 2.16.84 0.1.147974.3.579.2.593 1956 Unknown [id number] 2.16.84 0.1.955312.3.579.2.593 1956 Unknown [id number] 2.16.8 40.1.099822.3.579.2.159 1956 Unknown [id number] 2.16.8 40.1.349255.3.579.2.727 1956 Unknown [id number] 2.16.8 40.1.104056.3.579.2.727 1956 Unknown [id number] 2.16.8 40.1.735469.3.579.2.727 1956 Unknown [id number] 2.16.8 40.1.412185.3.579.2.727 1956 Unknown [id number] 2.16.8 40.1.912325.3.579.2.727 1956 Unknown [id number] 2.16.8 40.1.667491.3.579.2.727 1956 Unknown [id number] 2.16.8 40.1.338686.3.579.2.727 1956 Unknown [id number] 2.16.8 40.1.895403.3.579.2.727 1956 Unknown [id number] 2.16.8 40.1.740195.3.579.2.727 1956 Unknown [id number] 2.16.8 40.1.298562.3.579.2.727 1956 Unknown [id number] 2.16.8 40.1.043245.3.579.2.727 1956 Unknown [id number] 2.16.8 40.1.892090.3.579.2.727 1956 Unknown [id number] 2.16.8 40.1.768740.3.579.2.727 1956 Unknown [id number] 2.16.8 40.1.418682.3.579.2.727 Medicare Private Health Insurance Unknown [id number] 2.16.8 [id number] Social History Date Type Detail Facility Start: 10-26-2021 Tobacco smoking status Heavy t obacco smoker (finding) [facility] Other Sex Assigned At Male [facility] Other Start: 12-20-2022 End: 05-10-2023 Tobacco smoking status Ex-smoker (finding) [facility] Start: 06-16-2023 End: 11-29-2023 Tobacco smoking status Never [facility] Start: 12-16-2020 [facility] Start: 1955 Sex Assigned At Male F [facility] Functional Status Date Assessment Result Facility 12-25-2023 Functional Status No [facility] 11-29-2023 Functional Status N/A [facility] 07-31-2023 Functional Status N/A [facility] 06-16-2023 Functional Status N/A [facility] 05-16-2023 Functional Status N/A [facility] 05-10-2023 Functional Status N/A [facility] 04-11-2023 Functional Status N/A [facility] 12-20-2022 Functional Status N/A [facility] Clinical Notes 05-24-2021 to 02-12-2024 Note Date & Type Note Facility 02-12-2024 Note [facility] Note Reason for cardiology follow-up: Patient here for follow up stress test, which was ordered for surgery clearance. Chief Complaint: Dyspnea on exertion HPI: Michael Killian is a 68 y.o. male who is here today for follow-up visit. He underwent stress nuclear test and it was negative for ischemia. He has some shortness of breath with exertion which is chronic for him. He denies any chest discomfort at rest or with exertion. He denies any orthopnea or paroxysmal nocturnal dyspnea. He admits rare occasions of very brief fluttering. He has a chronic left lower extremity edema following ankle injury. He states that he checks his blood pressure at home every once a while and is usually normal with systolic in the 130. He was started recently on amlodipine by PCP Cardiology ROS: Review of Systems Cardiovascular: Positive for dyspnea on exertion, leg swelling (LLE) and palpitations. All other systems reviewed and are negative. Past Medical History He has a past medical history of Arthritis, Elevated PSA, GERD (gastroesophageal reflux disease), Heart murmur, Hyperlipidemia, and Hypertension. Surgical History He has a past surgical history that includes Cystoscopy; Hernia repair; Tonsilectomy, adenoidectomy, bilateral myringotomy and tubes; and Prostate biopsy. Social History He reports that he quit smoking about 2 years ago. His smoking use included cigarettes. He has never used smokeless tobacco. He reports current alcohol use. He reports that he does not use drugs. Family History Family History Problem Relation Name Age of Onset Diabetes Mother Heart attack Father Allergies Cephalexin monohydrate and Penicillins Medications Current Outpatient Medications: albuterol 2.5 mg /3 mL (0.083 %) nebulizer solution, 2.5 mg., Disp: , Rfl: alfuzosin (Uroxatral) 10 mg 24 hr tablet, Take 10 mg by mouth., Disp: , Rfl: amLODIPine (Norvasc) 5 mg tablet, Take 5 mg by mouth., Disp: , Rfl: carvedilol (Coreg) 6.25 mg tablet, Take 6.25 mg by mouth with breakfast and with evening meal., Disp: , Rfl: lisinopril 40 mg tablet, Take 40 mg by mouth., Disp: , Rfl: Last Recorded Vitals Visit Vitals Smoking Status Former Physical Examination: GENERAL: alert and oriented x3, well developed, in no acute distress. HEAD: atraumatic, normocephalic. EYES: SARAH, EOMI. NECK: trachea midline, no JVD present, no carotid bruits present. CARDIAC: S1, S2 present. RRR. No murmur, rubs, or gallops. RESPIRATORY: CTAB, no increased effort of breathing, no rales, rhonchi, or wheezing. ABDOMEN: soft, nontender, nondistended. EXTREMITIES: Mild edema of the left lower extremity. No rash/skin discoloration present. NEURO: strength/sensation equal and symmetric in bilateral upper and lower extremities. PSYCH: appropriate mood, affect, and judgement. Labs: Labs 11/24/2023 AST 17, ALT 25, triglyceride 96, cholesterol 188, LDL 135, HDL 34 Last Images: EKG 12/25/2023 sinus rhythm with 1 PVC,voltage criteria for LVH, nonspecific T wave changes in inferior leads Echo 06/01/2023 Stress test 01/12/2024 EKG portion: Equivocal stress test by ECG criteria due to baseline EKG changes Presence of PVCs at baseline and during recovery Perfusion images: No acute reversible ischemia Fixed inferior wall perfusion defect versus diaphragm attenuation artifact Left ventriculography showed low ejection fraction 48% Normal wall motions Assessment and Plan: Cardiac clearance for TURP Chest tightness with exertion he has many risk factors for coronary artery disease including smoking, hypertension, hyperlipidemia, age, gender, and family history of premature CAD. Stress nuclear test 01/12/2024 showed no evidence of ischemia, the fixed inferior defect most likely due to diaphragmatic attenuation artifact because patient has normal wall motion. Dyspnea on exertion probably due to COPD PVCs noted on stress test at rest and during recovery Abnormal EKG showing LVH and nonspecific T wave changes in inferior leads Mild to moderate aortic insufficiency on echo May 2023 Moderate pulmonary hypertension on recent echo, probably due to COPD Essential hypertension, on Coreg, lisinopril, and amlodipine. Blood pressure is elevated today however the patient states is normal when he checks it at home Pure cholesterolemia, not on any medication Tobacco abuse, 1-1 and half packs/day for 40 years, he quit about 2 years ago COPD, moderate on recent PFT of obesity, BMI 34.7 kg/m??? Plan: Continue current medications Patient is stable cardiac cochran. He can proceed with TURP from cardiac point of view with necessary anesthesia . He is considered to be at low risk for perioperative cardiac events. I asked the patient to check his blood pressure twice daily for 2 weeks and bring the blood pressure log to the office. He was advised also to follow a low-salt diet Will codie (more content not included)... [facility] 01-03-2024 Note [place] [facility] Note Reason for cardiology consult: New patient here to establish care. Ref from Dr. Meghan Brito for dyspnea on exertion and abnormal EKG, prior to TURP procedure. He needs cardiac clearance Chief Complaint: Dyspnea on exertion HPI: Michael Killian is a 68 y.o. male without prior cardiac history. He has history of hypertension, hyperlipidemia, aortic insufficiency, COPD and long history of smoking. Patient states that he has dyspnea on exertion when he is pushing the mower climbing stairs however he is able to mow 1 acre of grass and able to do the weeding without needing to rest. He admits to occasional chest tightness with activity. Also sometimes he breaks in sweat during exertion probably once every couple weeks. He denies orthopnea or paroxysmal nocturnal dyspnea or dizziness or palpitations. He has chronic edema around the ankles. He denies legs discomfort with exertion. He smoked 1 pack to 1 and half pack per day for at least 40 years however he quit about 2 years ago, he drinks alcohol occasionally on the week and when he drinks he does 5-6 beers. He denies any illicit drugs. Regarding family history his mother had diabetes mellitus. His father had ME at age of 50. Many siblings with history of stroke. Review of Systems Cardiovascular: Positive for dyspnea on exertion and leg swelling (LLE). All other systems reviewed and are negative. Past Medical History He has a past medical history of Arthritis, Elevated PSA, GERD (gastroesophageal reflux disease), Hyperlipidemia, and Hypertension. Surgical History He has a past surgical history that includes Cystoscopy; Hernia repair; Tonsilectomy, adenoidectomy, bilateral myringotomy and tubes; and Prostate biopsy. Social History He reports that he quit smoking about 2 years ago. His smoking use included cigarettes. He has never used smokeless tobacco. He reports that he does not currently use alcohol. He reports that he does not use drugs. Family History No family history on file. Allergies Cephalexin monohydrate and Penicillins Medications Current Outpatient Medications: albuterol 2.5 mg /3 mL (0.083 %) nebulizer solution, 2.5 mg., Disp: , Rfl: alfuzosin (Uroxatral) 10 mg 24 hr tablet, Take 10 mg by mouth., Disp: , Rfl: amLODIPine (Norvasc) 5 mg tablet, Take 5 mg by mouth., Disp: , Rfl: carvedilol (Coreg) 6.25 mg tablet, Take 6.25 mg by mouth., Disp: , Rfl: lisinopril 40 mg tablet, Take 40 mg by mouth., Disp: , Rfl: Last Recorded Vitals Visit Vitals Smoking Status Former Physical Examination: GENERAL: alert and oriented x3, well developed, in no acute distress. HEAD: atraumatic, normocephalic. EYES: SARAH, EOMI. NECK: trachea midline, no JVD present, no carotid bruits present. CARDIAC: S1, S2 present. RRR. No murmur, rubs, or gallops. RESPIRATORY: CTAB, no increased effort of breathing, no rales, rhonchi, or wheezing. ABDOMEN: soft, nontender, nondistended. EXTREMITIES: Edema around the ankles. No rash/skin discoloration present. NEURO: strength/sensation equal and symmetric in bilateral upper and lower extremities. PSYCH: appropriate mood, affect, and judgement. Labs: Labs 11/24/2023 AST 17, ALT 25, triglyceride 96, cholesterol 188, LDL 135, HDL 34 Last Images: EKG 12/25/2023 sinus rhythm with 1 PVC,voltage criteria for LVH, nonspecific T wave changes in inferior leads Echo 06/01/2023 Chest x-ray 12/25/2023 PFT 06/13/2023 Low-dose lung CT 06/01/2023 Assessment and Plan: Chest tightness with exertion he has many risk factors for coronary artery disease including smoking, hypertension, hyperlipidemia, age, gender, and family history of premature CAD Dyspnea on exertion probably due to COPD Abnormal EKG Mild to moderate aortic insufficiency Moderate pulmonary hypertension on recent echo, probably due to COPD Cardiac clearance for TURP Essential hypertension, well-controlled on Coreg, lisinopril, and amlodipine Pure cholesterolemia, not on any medication Tobacco abuse, 1-1 and half packs/day for 40 years, he quit about 2 years ago COPD, moderate on recent PFT of obesity, BMI 34.7 kg/m??? Plan: Continue current medications I will schedule him for treadmill nuclear stress test to evaluate for underlying ischemia before clearing him for TURP Will continue to follow aortic insufficiency by periodic echocardiographic studies The patient was advised to follow low fat diet to improve his LDL cholesterol. Of course if the stress test turns out to be abnormal he will be started on statin. Follow-up with me in 3 weeks Glenna Bhardwaj MD, [facility] 12-13-2023 Note [id number]#[id number] [facility] 11-29-2023 Hospital Discharge instructions Patient Education 11/29/2023 11:20:14 Transurethral Resection [...] Follow these instructions at home: Medicines Take esds-ohl-vcsbxgr and prescription medicines only as told by [...] to keep your urine pale yellow. Take zeqn-jgs-tadnwmj or prescription medicines. Eat foods that are [...] provider. Document Revised: 03/08/2022 Document Reviewed: 03/08/2022 [employer] Patient Education 2022 Pocket[employer]. 11/29/2023 11:20:13 Transurethral Resection of the Prostate [...] including vitamins, herbs, eye drops, creams, and gzzq-rwi-gikmvvj medicines. Any problems you or family members [...] provider tells you to take them. Taking ehmw-ldz-doyuxek medicines, vitamins, herbs, and supplements. Surgery safety [...] provider. Document Revised: 03/08/2022 Document Reviewed: 03/08/2022 [employer] Patient Education 2022 [employer]ocketSuite. Follow Up Care 08/02/2023 09:34:46 With:Daryl HAMILTON, Meghan Tucker, URL, URO Address: [address] [place] [place] [phone] When: Unknown [facility] 07-31-2023 Evaluation + Plan note Extrac rina from: Title: - [facility] HOP Note Author:Meghan Brito MD Date:07/31/23 Impression and Plan Assessment and Plan: Diagnosis: BPH with urinary obstruction (NDO56-GV N40.1, Discharge, Medical), Pelvic lymphadenopathy (OGZ89-YY R59.0, Working, Medical), Chronic prostatitis (IWB91-ZF N41.1, Discharge, Medical), Feeling of incomplete bladder emptying (FNU34-CQ R39.14, Discharge, Medical), Gross hematuria (ICD10- CM R31.0, Discharge, Medical). Assessment and Plan: Diagnosis: BPH with urinary obstruction (XBE14-XY N40.1, Discharge, Medical), Chronic prostatitis (CMV40-VR N41.1, Discharge, Medical), Feeling of incomplete bladder emptying (JVQ72-GO R39.14, Discharge, Medical), Gross hematuria (XVO80-CN R31.0, Discharge, Medical), Pelvic lymphadenopathy (RWT78-ZQ R59.0, Working, Medical). 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 Gross hematuria - after [place] CTU 07/05/23 at [facility] - neg for upper tract filling [...] in 4 to 5 months with P[facility]02-05-2024 Hospital Discharge instructions Patient Education 07/31/2023 09:05:54 [...] including vitamins, herbs, eye drops, creams, and qjxl-kem-nlibtlv medicines. Any problems you or family members [...] provider tells you to take them. ?Taking eyal-vco-mvhugvh medicines, vitamins, herbs, and supplements. Follow your [...] provider. Document Revised: 09/08/2021 Document Reviewed: 09/08/2021 [employer] Patient Education 2022 Pocket[employer]. 07/31/2023 09:05:54 Transurethral Resection of the Prostate [...] including vitamins, herbs, eye drops, creams, and xgrg-kxl-ulhpbvf medicines. Any problems you or family members [...] provider tells you to take them. Taking odrm-uea-qzaawyb medicines, vitamins, herbs, and supplements. Surgery safety [...] provider. Document Revised: 03/08/2022 Document Reviewed: 03/08/2022 [employer] Patient Education 2022 [employer]ocket[employer]. 07/31/2023 09:05:54 [facility] - Cystoscopy Discharge Instructions [...] degrees. Follow Up Care 06/30/2023 10:04:12 With:Meghan Daryl Address: [address], [address] [phone] Business (1) When: Unknown Comments:Office to schedule follow up in 3-4 months or call sooner for procedure (pt knows will be done by partner/referred out if during leave) [facility]02-05-2024 Note [id number] NoteCystoscopy ? Voiding after the procedure: [...] including vitamins, herbs, eye drops, creams, and vper-xkn-ctktayg medicines. ? Any problems you or family [...] tells you to take them. ? Taking vbcu-hap-nehhwrq medicines, vitamins, herbs, and supplements. ? Follow [...] at least 4 week (more content not included)...[facility]12-28-2023 Evaluation note* Encounter Date Diagnosis Assessment Notes Treatment Notes Treatment Clinical Notes May, Simple chronic bronchitis (ICD-10 - J41.0) [facility] Other 12-27-2023 Evaluation note* Encounter Date Diagnosis Assessment Notes Treatment Notes Treatment Clinical Notes May, Simple chronic bronchitis (ICD-10 - J41.0) [facility] Other 12-26-2023 Evaluation note* Encounter Date Diagnosis Assessment Notes Treatment Notes Treatment Clinical Notes May, Simple chronic bronchitis (ICD-10 - J41.0) [facility] Other 12-22-2023 Hospital Discharge instructions Patient Education [...] treatment? Where to find more information The [place] [employer]: www.cancer.org [place] [employer]: www.auanet.org Contact a health care [...] provider. Document Revised: 12/06/2021 Document Reviewed: 12/06/2021 [employer] Patient Education 2022 PocketSuite. Follow Up Care 06/16/2023 08:30:52 With:Daryl HAMILTON, LOGAN Villalpando, URO Address: [address] [place] [phone] When: Unknown Comments:6 mos w/ CT and PSA [facility] 12-20-2023 Hospital Discharge instructions Follow Up Care 06/14/2023 08:28:10 With:Daryl HAMILTON, Meghan Tucker URDedrick, URO Address: When: Unknown [facility] 12-12-2023 Hospital Discharge instructions Patient Education 06/06/2023 16:52:41 EU - Transrectal Ultrasound of the Prostate with US guided biopsy Discharge Instructions (CUSTOM) Transperineal?Biopsy of the Prostate Discharge Instructions After the procedure, it is common to have: Pain and discomfort near your rectum, especially while sitting. [place]-colored urine due to small amounts of blood [...] Brito Address:Unknown When: Unknown Comments:Keep scheduled appointment [facility]12-12-2023 Evaluation + Plan noteExtracted from: Title:EU -transperineal prostate biopsy Author:Meghan Melgoza MD Date:06/06/23 Impression and Plan Diagnosis Elevated PSA (RJH67-VQ R97.20, Discharge, Medical). Diagnosis Elevated PSA (TCT46-YC R97.20, Discharge, Medical). Future Appointments Appointment Date:06/14/2023 10:30:00 AM Scheduled Provider:Meghan Brito MD Location:[facility] Appointment Type:URO Office Visit [facility]11-20-2023 Note [id number] Hospital Discharge instructions Follow Up Care 05/10/2023 11:27:04 With:Meghan Brito MD, URL, URO Address: [address] [place] [phone] When: Unknown [facility] 11-15-2023 Hospital Discharge instructions Patient [...] treatment? Where to find more information The [place] [employer]: www.cancer.org [place] [employer]: www.auanet.org Contact a health care [...] provider. Document Revised: 12/06/2021 Document Reviewed: 12/06/2021 [employer] Patient Education 2022 PocketSuite. 05/10/2023 11:11:23 Benign Prostatic Hyperplasia Benign Prostatic [...] urethra. Follow these instructions at home: Take cyiq-ycq-jfygimn and prescription medicines only as told by [...] provider. Document Revised: 12/29/2021 Document Reviewed: 12/29/2021 [employer] Patient Education 2022 PocketSuite. Follow Up Care 04/12/2023 09:16:25 With:Daryl HAMILTON, Meghan Tucker URL, URO Address: When: Unknown Comments:Sched Transperineal Bx of Prostate [facility] 11-02-2023 Evaluation note* Encounter Date Diagnosis Assessment Notes Treatment Notes Treatment Clinical Notes Apr, Primary hypertension (ICD-10 - I10) [facility] Other 10-17-2023 Hospital Discharge instructions Patient Education [...] treatment? Where to find more information The [place] [employer]: www.cancer.org [place] [employer]: www.auanet.org Contact a health care [...] provider. Document Revised: 12/06/2021 Document Reviewed: 12/06/2021 [employer] Patient Education 2022 PocketSuite. Follow Up Care 03/16/2023 16:12:09 With:THERESA FLEMING PA-C, URL Address: [address] [place] [address] [phone] When: Unknown Comments:f/u with MD in 1 month w/ PSA and Select MDX [facility] 10-10-2023 Evaluation note* Encounter Date Diagnosis Assessment Notes Treatment Notes Treatment Clinical Notes Mar, Primary hypertension (ICD-10 - I10) [facility] Other 06-27-2023 Hospital Discharge instructions Patient Education [...] treatment? Where to find more information The [place] [employer]: www.cancer.org [place] [employer]: www.auanet.org Contact a health care [...] provider. Document Revised: 12/06/2021 Document Reviewed: 12/06/2021 [employer] Patient Education 2022 PocketSuite. Follow Up Care 10/03/2022 14:27:57 With:THERESA FLEMING PA-C, URL Address: [address] [place] [address] When: Unknown Comments:Sched Select MDX and MRI of Prostate. [facility] 06-20-2023 Evaluation note* Encounter Date Diagnosis Assessment Notes Treatment Notes Treatment Clinical Notes Nov, Cigarette nicotine dependence in remission (ICD-10 - F17.211) Started at age 19, quit age 66, 1ppd. LDCT w/o nodules - 11/2022 [facility] Other 06-19-2023 Evaluation note* Encounter Date Diagnosis Assessment Notes Treatment Notes Treatment Clinical Notes Nov, Simple chronic bronchitis (ICD-10 - J41.0) Nov, Cigarette nicotine dependence in remission (ICD-10 - F17.211) Started at age 19, quit age 66, 1ppd. LDCT w/o nodules - 11/2022 [facility] Other 05-31-2023 Evaluation note* Encounter Date Diagnosis [...] Z12.5) Yearly MARIZA and PSA, f/u Urology [facility] Other 03-08-2023 Evaluation note* Encounter Date Diagnosis [...] in remission (ICD-10 - F17.211) Continue abstinence [facility] Other 05-03-2022 Hospital Discharge instructions Patient Education [...] urethra. Follow these instructions at home: Take jxrx-zxs-yxvccdn and prescription medicines only as told by [...] 06/12/2006 Document Revised: 05/07/2019 Document Reviewed: 07/17/2017 [employer] Patient Education 2020 PocketSuite. Follow Up Care 10/22/2020 09:07:58 With:Erlin Alonso MD, ELENA Armstrong Address: [facility] [address], [place] [address]- When:10/26/2022 Comments:with PSA [facility] 02-12-2022 Evaluation note* Encounter Date Diagnosis Assessment [...] Patient care instructions given in writting by [facility] Care At Home document [facility] Other 11-29-2021 Evaluation note* Encounter Date Diagnosis Assessment Notes Treatment Notes Treatment Clinical Notes Apr, Contact with and (suspected) exposure to other viral communicable diseases (ICD-10 - Z20.828) Apr, COVID-19 (ICD-10 - U07.1) Today you tested positive for the COVID virus. This mean you need to follow all CDC quarantine guidelines found at coronavirus.[place].go v. It is important to rest, increase [...] Patient care instructions given in writting by [facility] Care At Home document. [facility] Other Evaluation + Plan note Future Appointments Appointment Date:11/01/2022 08:15:00 AM Scheduled Provider:Daniel Kern Jr., MD Location:[facility] Appointment Type:URO Office Visit Diagnostic Tests Pending * PSA Total 10/26/21 [facility] evaluation + Plan note Future Appointments Appointment Date:04/28/2023 08:15:00 AM Scheduled Provider:Daryl HAMILTON, Meghan Tucker Location:[facility] Appointment Type:URO Office Visit Diagnostic Tests Pending * PSA Total 04/11/23 [facility] evaluation + Plan note Future Appointments Appointment Date:06/06/2023 02:30:00 PM Scheduled Provider: Location:[facility] Appointment Type:Surgery FT Appointment Date:06/14/2023 10:30:00 AM Scheduled Provider:Meghan Brito MD Location:[facility] Appointment Type:URO Office Visit [facility] evaluation + Plan note Future Appointments Appointment Date:06/15/2023 03:30:00 PM Scheduled Provider:Meghan Brito MD Location:[facility] Appointment Type:URO Office Visit [facility] evaluation + Plan note Future Appointments Appointment Date:06/21/2023 08:45:00 AM Scheduled Provider:Meghan Brito MD Location:[facility] Appointment Type:URO Office Visit [facility] Evaluation + Plan note Future Appointments Appointment Date:06/30/2023 09:15:00 AM Scheduled Provider: Location:[facility] Appointment Type:URO Nurse Visit Diagnostic Tests Pending * PSA Free & Total 06/16/23 [facility] Evaluation + Plan note Future Appointments Appointment Date:06/30/2023 09:15:00 AM Scheduled Provider: Location:[facility] Appointment Type:URO Nurse Visit [facility] evaluation + Plan note Future Appointments Appointment Date:07/31/2023 08:30:00 AM Scheduled Provider: Location:[facility] Appointment Type:Urology FT [facility] Evaluation + Plan note Future Appointments Appointment Date:07/31/2023 08:30:00 AM Scheduled Provider: Location:[facility] Appointment Type:Urology FT Diagnostic Tests Pending * Urine Cytology ([facility]) [facility] Future App[facility]ments Appointment Date:12/25/2023 07:30:00 AM Scheduled Provider: Location:[facility] Appointment Type:Surgical PAT FT Appointment Date:01/02/2024 08:00:00 AM Scheduled Provider: Location:[facility] Appointment Type:Surgery FT [facility] evaluation + Plan note Future Appointments Appointment Date:01/02/2024 08:00:00 AM Scheduled Provider: Location:[facility] Appointment Type:Surgery FT Appointment Date:01/12/2024 08:15:00 AM Scheduled Provider:Meghan Brito MD Location:[facility] Appointment Type:URO [facility] note[facility] assessment information available [facility] Work Phone: evaluation noteNo InformationNort [employer] Other evaluation note* Diagnosis Onset Date Resolution Status Anemia acute Benign prostatic hyperplasia with lower urinary tract symptoms acute Chronic bronchitis acute Chronic kidney disease acute Elevated PSA acute Hypercholesterolemia acute Hypertension acute Nicotine addiction acute Screening PSA (prostate specific antigen) acute Welcome to Medicare preventive visit noneactive [facility] Work Phone: Hismxkb general Narrative - Reported* Type Description Date Medical History high blood pressure Medical History high cholesterol [facility] Other Hisjpsw general Narrative - Reported* Type Description Date [...] HERNIA 1989 Hospitalization History SEE SURGICAL HX [facility] Other history general Narrative - Reported* Type Description Date [...] HERNIA 1989 Hospitalization History SEE SURGICAL HX [facility] Other Hospital course Narrative No data available for this section [facility] Dis[facility] No data available for this section [facility] progress note No data available for this section [facility] [id number] Summary Purpose Family History No Family History [...] Specified History of stroke Unknown Advance Directives No Advanced Directives Records [...] and content) DATE CREATED AUTHOR 11/08/2022 [facility] DATE CREATED AUTHOR AUTHOR'S ORGANIZ ATION 04/13/2023 [facility] DATE CREATED AUTHOR AUTHOR'S ORGANIZ ATION 06/17/2023 [facility] DATE CREATED AUTHOR AUTHOR'S ORGANIZ ATION 12/25/2023 [facility] DATE CREATED AUTHOR AUTHOR'S ORGANIZ ATION 12/26/2023 [facility] DATE CREATED AUTHOR AUTHOR'S ORGANIZ ATION 01/09/2024 [facility] DATE CREATED AUTHOR AUTHOR'S ORGANIZ ATION 02/12/2024 [facility] Patient Care team informatio n (unrecognized section and content) Team Status: Active Member Role Status Dates Gio Cavanaugh , Primary Care Provider Active Team Status: Active Member Role Status Dates Gio Cavanaugh , DO Primary Care Provide r, Attending Provider Active Start: November 24, 2023 Team Status: Inactive Member Role Status Dates Gio Cavanaugh , DO Primary Care Provide r, Attending Provider Active Start: November 28, 2023 End: November 28, 2023 Team Status: Inactive Member Role Status Dates Gio Cavanaugh , Primary Care Provider Active Theresa Fleming PA-C Attending Provider Active Goals (unrecognized section [...] BE BASED ON THE PRIMARY CLINICAL RECORDS. [employer] [facility]. provides no warranty or guarantee of the accuracy or completeness of information in this document.
[2024-02-22 10:03] LABS: Anion Gap 11.7; Carbon Dioxide 27.5 mmol/L (21.0-32.0); Chloride 104 mmol/L (98-107); Estimated GFR (African America >60 (>=60); Estimated GFR (Non-African Ame >60 (>=60); Glucose 114 mg/dL (74-106); Potassium 4.2 mmol/L (3.5-5.1); Sodium 139 mmol/L (136-145)
== END 2024-02-22 08:38 | disposition home or self-care (01) ==
LOC: PST 08:38
PROVIDERS: PCP Internal Medicine; Visit Provider Urology
DX: Z01.812 Encounter for preprocedural laboratory examination (principal)
CPT/HCPCS: 80048

== ENCOUNTER 2024-03-05 07:24 | Outpatient (OUT) | payer MEDICARE, SELFPAY ==
--- OUTSIDE RECORDS SUMMARY | 2024-03-05 07:29 | XMS_ITS | CCD ---
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 Referring Unavailable [...] Attending Unavailable Lue, Meghan M. Attending Unavailable FLAKO, THERESA E Attending Unavailable Lue, Meghan M. Attending Unavailable Lue, Meghan M. Attending Unavailable Lue, Meghan M. Attending Unavailable Lue, Meghan M. Referring Unavailable Lue, Meghan M. Admitting Unavailable KAR, GOVINDAR Attending Unavailable KAR SAMAR Attending Unavailable Allergies Allergy Classification Reported Allergen(s) Allergy Type Date of Onset Reaction(s) Facility (20 sources) Cephalexin; Translations: [cephalexin] Drug Allergy 04-06-20 20 Unknown (qualifier value), Dyspnea (finding) [facility] Other (20 sources) Penicillins; Translations: [penicillins] Drug allergy 08-07-19 16 Unknown (qualifier value), Dyspnea (finding) [facility] (2 sources) Penicillin V Drug Allergy rash/cough [facility] Other (13 sources) Cephalexin; Translations: [Keflex] Drug Allergy 08-07-19 16 rash/cough [facility] (11 sources) Penicillin Drug Allergy rash/cough [facility] Other (7 sources) Keflex *CEPHALOSPORINS* Propensity to adverse reactions 02-29-20 18 Unknown [facility] Other (2 sources) Penicillin G Benzathine & Proc Drug allergy 02-29-20 18 Unknown [facility] Other (2 sources) patient allergy list reviewed by nurse or physicia Propensity to adverse reactions 03-02-20 Comment:[facility] Other (1 source) Cephalexin Drug Allergy 04-06-20 [facility] Repository (2 sources) Cephalosporins (Antibiotic) Allergy to substance 11-28-19 Unknown Reaction [facility] Medications Current Medications Medication Drug Class(es) Dates [...] (20 sources) alpha-Adrenergic Mary Start: 07-28-2023 take 10 mg by mouth once daily at mealtime Alfuzosin Active 10 MG PO Daily November 28, 2023 12:00am administer after the same meal each day Start: 01-30-2023 take 1 tablet by [facility] once daily alfuzosin 10 mg ER Tab 10 mg = 1 tab(s), Oral, Daily, # 30 tab(s), Refills(s) 5, Pharmacy: [id number], 180, cm, 12/20/22 10:13:00 EDT, Height/Length Dosing, 102.5, kg, 12/20/22 10:13:00 EDT, Weight Dosing Start Date: 01/30/23 Status: Ordered Start: 07-14-2022 take 1 tablet by [facility] once daily alfuzosin 10 mg ER Tab 10 mg = 1 tab(s), Oral, Daily, # 30 tab(s), Refills(s) 5, Pharmacy: [facility] #[id number], 180, cm, 10/26/21 9:12:00 EDT, Height/Length Dosing, 95.2, kg, 10/26/21 9:12:00 EDT, Weight Dosing Start Date: 07/14/22 Status: Ordered Start: 07-08-2021 take 1 tablet by [facility] once daily alfuzosin 10 mg ER Tab 10 mg = 1 tab(s), Oral, Daily, # 30 tab(s), Refills(s) 11, Pharmacy: [facility] [facility], 180, cm, 07/08/21 15:57:00 EST, Height/Length Dosing, 95.2, kg, 07/08/21 15:57:00 EST, Weight Dosing Start Date: 07/08/21 Status: Ordered amLODIPine 5 mg oral tablet (3 sources) Dihydropyridine Calcium Channel Mary Start: 12-22-2023 take 1 tablet by mouth once daily amLODIPine 5 mg Tab 5 mg = 1 tab(s), Oral, Daily, High blood pressure Start Date: 12/25/23 Status: Ordered azithromycin 250 mg oral tablet (1 source) Macrolide Antimicrobial Start: 08-31-2022 Azithromycin 250 MG as directed Orally daily for 5 days Aug, Active ciprofloxacin 500 mg oral tablet (4 sources) [...] day(s), # 2 tab(s), Refills(s) 0, Pharmacy: [facility] #72, 180, cm, 05/10/23 10:56:00 EST, Height/Length Dosing, 102, kg, 05/10/23 10:56:00 EST, Weight Dosing Start Date: 05/10/23 Stop Date: 05/11/23 Status: Ordered diazePAM 10 mg oral tablet (4 sources) Benzodiazepine Start: 05-10-2023 Valium 10 mg T ab 10 mg = 1 tab(s), Oral, Once, take 30 minutes prior to procedure, # 1 tab(s), Refills(s) 0, Pharmacy: [facility] #[facility], 180, cm, 05/10/23 10:56:00 EST, Height/Length Dosing, 102, kg, 05/10/23 10:56:00 EST, Weight Dosing Start Date: 05/10/23 Status: Ordered lisinopril 40 mg oral tablet (20 sources) Angiotensin Converting Enzyme Inhibitor Start: 03-22-2019 take 40 mg by mouth once daily Lisinopril Active 40 MG PO Daily December 16, 2020 12:00am Lisinopril Activ e 10 actuat olodaterol 0.0025 mg/actuat / tiotropium 0.0025 mg/actuat inhalation spray (1 source) Anticholinergic, beta2-Adrenergic Agonist Start: 06-21-2023 Stiolto Respimat 2.5-2.5 MCG/ACT 2 puffs Inhalation Once a day for 30 days d/c Anoro Rx May, Active predniSONE 20 mg oral tablet (1 source) Start: 02-29-2024 Prednisone Active 20 MG PO As Directed 09 04February 29, 2024 12:00am 1 tab bid w/ food x 5 days then qd w/ food x 5 days 30 actuat umeclidinium 0.0625 mg/actuat / vilanterol [...] at 11pm Orally BID for 1 days BIN:[id number] PCN: [id number] GROUP:[id number] ID:[id number] October, Not-Taking/PRN Start: 11-17-2020 Plenvu 140 GM dose 1 pouch at 4pm, dose 2 pouch A & B at 11pm Orally BID for 1 days BIN:[id number] PCN: CNRX GROUP:[id number] ID:[id number] October, Not-Taking Start: 11-17-2020 Plenvu 140 GM dose 1 pouch at 4pm, dose 2 pouch A & B at 11pm Orally BID for 1 days BIN:[id number]: CNRXGROUP:[id number] October, Not-Taking Start: 11-17-2020 Plenvu 140 GM dose 1 pouch at 4pm, dose 2 pouch A & B at 11pm Orally BID for 1 days BIN:[id number]: CNRXGROUP:[id number] October, Active carvedilol 6.25 mg oral tablet (20 sources) alpha-Adrenergic Mary, beta-Adrenergic Mary Start: 03-22-2019 End: 09-26-2023 take 6.25 mg by mouth twice daily Carvedilol Discontinued 6.25 MG PO Twice daily April 06, 2020 12:00am September 26, 2023 12:50pm Carvedilol Activ e methylPREDNISolone 4 mg oral tablet (13 sources) [...] Not-Taking/PRN rosuvastatin calcium 20 mg oral tablet (17 sources) HMG-CoA Reductase Inhibitor Start: 12-16-2020 End: 11-28-2023 take 20 mg by mouth once daily Rosuvastatin Discontinued 20 MG PO Daily December 16, 2020 12:00am November 28, 2023 9:01am Start: 03-26-2019 rosuvastatin O ral, Daily, Refills(s) 0 Start Date: 03/26/19 Status: Ordered Rosuvastatin Eliceo cium Not-Taking/PRN Rosuvastatin Eilceo cium Not-Taking Rosuvastatin Eliceo cium Active tamsulosin hydrochloride 0.4 mg oral capsule (3 sources) alpha-Adrenergic Mary Start: 12-16-2020 End: 11-28-2023 take 0.4 mg by mouth once daily Tamsulosin Discontinued 0.4 MG PO Daily December 16, 2020 12:00am November 28, 2023 9:01am Problems Active Problems Problem Classification Problem Date Documented Date Episodic/Chronic Asthma (1 source) Unspecified asthma with status asthmaticus; Translations: [UNS ASTHMA W/STATUS ASTHMATICUS] Onset: 08-30-2022 Chronic Chronic kidney disease (3 sources) Chronic kidney disease; Translations: [Chronic kidney disease, unspecified] 11-26-2023 Chronic Chronic obstructive pulmonary disease and bronchiectasis (20 sources) Acute exacerbation of chronic obstructive airways disease; Translations: [Chronic obstructive pulmonary disease with (acute) exacerbation] Onset: 08-30-2022 Chronic Deficiency and other anemia (15 sources) Anemia; Translations: [Anemia, unspecified] 11-26-2023 Episodic [...] urine; Translations: [Nocturia] Onset: 02-28-2018 01-29-2019 Episodic Gout and other crystal arthropathies (2 sources) Acute gout; Translations: [Gout, unspecified] 02-29-2024 Chronic Heart valve disorders (4 sources) Aortic valve [...] 01-29-2019 Chronic Other aftercare (1 source) Other nursing home (current) drug therapy; Translations: [[facility] CURRENT [facility]ERAPY] Onset: 08-30-2022 Episodic Other aftercare (2 sources) Long-term current use of drug therapy; Translations: [Other nursing home (current) drug therapy] Episodic Other and unspecified [...] Test Name Value Interpretation Reference Range Facility Estimated glomerular filtrat ion rate (GFR) non- Americanon 02-22-2024 GFR/1.73 sq M.predicted among non-blacks MDRD (S/P/Bld) [Vol rate/Area] mL/min/{1.73_m2} >=60 [facility] Laboratory - Chemistry and C hemistry - challengeon 02-22-2024 Calcium [Mass/Vol] 9.0 mg/dL 8.5-10.1 [facility] Chloride [Moles/Vol] 104 mmol/L 98-107 [facility] CO2 [Moles/Vol] 27.5 mmol/L 21.0-32.0 [facility] Creatinine [Mass/Vol] 1.07 mg/dL 0.70-1.30 [facility] GFR/1.73 sq M.predicted MDRD (S/P/Bld) [Vol rate/Area] mL/min/{1.73_m2} >=60 [facility] Glucose [Mass/Vol] 114 mg/dL High 74-106 [facility] Potassium [Moles/Vol] 4.2 mmol/L 3.5-5.1 [facility] Sodium [Moles/Vol] 139 mmol/L 136-145 [facility] Urea nitrogen [Mass/Vol] 16.0 mg/dL 7.0-18.0 [facility] Urea nitrogen/Creatinine [Mass ratio] 15.0 mg/mg [facility] Serum or plasma anion gap de terminationon 02-22-2024 Anion gap [Moles/Vol] 11.7 mmol/L [facility] 36on 02-12-[address] Lakhani: MD Grace Lott MA Stress test showed no evidence of ischemia with normal left ventricle systolic function and normal leavitt motion therefore the fixed inferior defect is most likely due to attenuation artifact. I think the patient is stable cardiac cochran to proceed with TURP with necessary anesthesia. He is considered to be at low risk for perioperative cardiac events. Patient seeing Dr. Lakhani in clinic this morning. [facility] Office Visiton 02-12-2024 Follow-up visit [id number] Michael Killian 1955 M Date Provider Department Center 02/12/2024 [id number] LAKHANI Family History Problem Relation Age of Onset Diabetes Mother Heart attack Father Family Status - Relation Status Age at Mother Father Level of Service:97498 OR OFFICE/OUTPATIENT ESTABLISHED MOD MDM 30 MIN [facility] 36on 01-30-2024 36 Patient had stress test last month for surgery clearance. It's scanned into associate professor of library media. Can you please review? Thanks! [facility] Office Visiton 01-03-2024 Follow-up visit [id number] Michael Killian Eleazar 1955 M Date Provider Department Center 01/03/2024 [id number] LAKHANI [facility] Family History Problem Relation Age of Onset Diabetes Mother Heart attack Father Family Status - Relation Status Age at Mother Father Level of Service:89584 OR OFFICE/OUTPATIENT NEW MODERATE MDM 45 MINUTES Normal [facility] BMPon 12-25-2023 Anion gap [Moles/Vol] 9 mmol/L Normal 6-16 [facility] Comment on above: Performed By: #### 2 [id number] #### [facility] [address] [place] [address] Calcium [Mass/Vol] 9.4 mg/dL Normal 8.9-11.1 [facility] Comment on above: Performed By: #### 2 [id number] #### [facility] [address] [place] [address] Chloride [Moles/Vol] 104 mmol/L Normal 101-111 [facility] Comment on above: Performed By: #### 2 [id number] #### [facility] [address] [place] [address] CO2 [Moles/Vol] 30 mmol/L Normal 21-31 [facility] Comment on above: Performed By: #### 2 [id number] #### [facility] [address] [place] [address] Creatinine [Mass/Vol] 1.3 mg/dL Normal 0.5-1.3 [facility] Comment on above: Performed By: #### 2 [id number] #### [facility] [address] [place] [address] Glucose [Mass/Vol] 113 mg/dL Normal 55-199 [facility] Comment on above: Performed By: #### 2 [id number] #### [facility] [address] [place] [address] Potassium [Moles/Vol] 4.3 mmol/L Normal 3.5-5.3 [facility] Comment on above: Performed By: #### 2 [id number] #### [facility] [address] [place] [address] Sodium [Moles/Vol] 139 mmol/L Normal 135-145 [facility] Comment on above: Performed By: #### 2 [id number] #### [facility] [address] [place] [address] Urea nitrogen [Mass/Vol] 21 mg/dL Normal 5-21 [facility] Comment on above: Performed By: #### 2 [id number] #### [facility] [address] [place] [address] Urea nitrogen/Creatinine [Mass ratio] 16 No Units Normal 10-20 [facility] Comment on above: Performed By: #### 2 [id number] #### [facility] [address] [place] [address] CBC w/ Auto Diffon 4 Basophils/100 WBC (Bld) 2.0 % Normal 0.0-2.0 [facility] Comment on above: Performed By: #### 2 [id number] #### [facility] [address] [place] [address] Basophils/Leukocytes Auto (Bld) [Pure # fraction] 0.1 E9/L Normal 0.0-0.2 [facility] Comment on above: Performed By: #### 2 [id number] #### [facility] [address] [place] [address] Eosinophils (Bld) [#/Vol] 0.3 E9/L Normal 0.0-0.5 [facility] Comment on above: Performed By: #### 2 [id number] #### [facility] [address] [place] [address] Eosinophils/100 WBC (Bld) 4.8 % Normal 0.0-8.0 [facility] Comment on above: Performed By: #### 2 [id number] #### [facility] [address] [place] [address] Erythrocyte distribution width (RBC) [Ratio] 14.1 % Normal 10.9-14.2 [facility] Comment on above: Performed By: #### 2 [id number] #### [facility] [address] [place] [address] Hematocrit (Bld) [Volume fraction] 38.5 % Normal 37.7-49.0 [facility] Comment on above: Performed By: #### 2 [id number] #### [facility] [address] [place] [address] Hemoglobin (Bld) [Mass/Vol] 13.7 g/dL Normal 13.5-17.5 [facility] Comment on above: Performed By: #### 2 [id number] #### [facility] [address] [place] [address] Lymphocytes (Bld) [#/Vol] 1.6 E9/L Normal 1.0-4.0 [facility] Comment on above: Performed By: #### 2 [id number] #### [facility] [address] [place] [address] Lymphocytes/100 WBC (Bld) 29.7 % Normal 14.0-50.0 [facility] Comment on above: Performed By: #### 2 [id number] #### [facility] [address] [place] [address] MCH (RBC) [Entitic mass] 30.3 pg Normal 27.0-34.0 [facility] Comment on above: Performed By: #### 2 [id number] #### [facility] [address] [place] [address] MCHC (RBC) [Mass/Vol] 35.5 g/dL Normal 31.4-36.0 [facility] Comment on above: Performed By: #### 2 [id number] #### [facility] [address] [place] [address] MCV (RBC) [Entitic vol] 85.3 fL Normal 80.0-100.0 [facility] Comment on above: Performed By: #### 2 [id number] #### [facility] [address] [place] [address] Monocytes (Bld) [#/Vol] 0.5 E9/L Normal 0.2-1.0 [facility] Comment on above: Performed By: #### 2 [id number] #### [facility] [address] [place] [address] Neutrophils (Bld) [#/Vol] 3.1 E9/L Normal 2.0-7.5 [facility] Comment on above: Performed By: #### 2 [id number] #### [facility] [address] [place] [address] Neutrophils/100 WBC (Bld) 55.2 % Normal 36.0-75.0 [facility] Comment on above: Performed By: #### 2 [id number] #### [facility] [address] [place] [address] Platelet 166.0 E9/L Normal 150.0-500.0 [facility] Comment on above: Performed By: #### 2 [id number] #### [facility] [address] [place] [address] Platelet mean volume (Bld) [Entitic vol] 8.6 fL Normal 6.4-10.8 [facility] Comment on above: Performed By: #### 2 [id number] #### [facility] [address] [place] [address] RBC (Bld) [#/Vol] 4.5 E12/L Normal 4.3-5.9 [facility] Comment on above: Performed By: #### 2 [id number] #### [facility] [address] [place] [address] WBC corrected for nucl RBC Auto (Bld) [#/Vol] 5.5 E9/L Normal 4.0-11.0 [facility] Comment on above: Performed By: #### 2 [id number] #### [facility] [address] [place] [address] CHEMISTRYOrdered By: SYSTEM SYSTEM on 12-25-2023 Anion [...] 35.0 s Normal 25.1 - 36.5 second(s) [facility] Comment on above: Interpretive Data: [...] the same coagulation reagent and instrumentation as [facility]. Currently there are no coagulation studies available worldwide for children to 14 days, and no normal ranges. Heparin therapeutic range (represented by Anti-Factor Xa activity of 0.2 - 0.4 U/mL) corresponds to PTT of 56.6 - 109.0 sec. INR Coag (PPP) [Relative time] 1.01 {INR} Invalid Interpretation Code [facility] Comment on above: Interpretive Data: I NR results are specifically intended to assess patients stabilized on long-term Anticoagulation therapy suggested INR s Less Intensive Anticoagulation 2.0 3.0 Conventional Range 3.0 4.5 PT Coag (PPP) [Time] 11.3 s Normal 9.4 - 1 2.5 second(s) [facility] Comment on above: Interpretive Data: [...] the same coagulation reagent and instrumentation as [facility]. Currently there are no coagulation studies available [...] Coag (PPP) [Time] 35.0 second(s) Normal 25.1-36.5 [facility] Comment on above: Result Comment: Para meter 15 days - 4 weeks 1 - 5 months 6 - 11 months 1 - 5 years 6 - 10 years 11 - 17 years PTT Mean: 35.4 (27.6-45.6) Mean: 33.5 (24.8-40.7) Mean: 32.4 (25.1-40.7) Mean: 31.6 (24.0-39.2) Mean: 31.6 (26.9-38.7) Mean: 31.0 (24.6-38.4) Pediatric Reference ranges were obtained from a study by manoj Doherty. prepared from 1437 samples obtained at 7 different centers using the same coagulation reagent and instrumentation as [facility]. Currently there are no coagulation studies available worldwide for children to 14 days, and no normal ranges. Heparin therapeutic range (represented by Anti-Factor Xa activity of 0.2 - 0.4 U/mL) corresponds to PTT of 56.6 - 109.0 sec. Performed By: #### 1 [id number] #### [facility] [address] [place] [address] INR Coag (PPP) [Relative time] 1.01 {INR} Invalid Interpretation Code [facility] Comment on above: Result Comment: INR results are specifically intended to assess patients stabilized on long-term Anticoagulation therapy suggested INR?s ?Less Intensive Anticoagulation? 2.0 ? 3.0 Conventional Range 3.0 ? 4.5 Performed By: #### 1 [id number] #### [facility] [address] [place] [address] PT Coag (PPP) [Time] 11.3 second(s) Normal 9.4-12.5 [facility] Comment on above: Result Comment: 15 [...] ranges were obtained from a study by carson Doherty prepared from 1437 samples obtained at 7 different centers using the same coagulation reagent and instrumentation as [facility]. Currently there are no coagulation studies available worldwide for children to 14 days, and no normal ranges. Performed By: #### 1 [id number] #### [facility] [address] [place] [address] UA with Cult Rflxon 12-25-19 24 Bilirubin Ql (U) Negative Normal Negative [facility] Comment on above: Performed By: #### 4 [id number] #### [facility] [address] [place] [address] Clarity (U) Clear Normal Clear [facility] Comment on above: Performed By: #### 4 [id number] #### [facility] [address] [place] [address] Color (U) Light-Yellow Normal Yellow [facility] Comment on above: Result Comment: Micr oscopic readings are only performed on those samples that meet specific criteria set forth by [facility]. Performed By: #### 4 [id number] #### [facility] [address] [place] [address] Glucose Ql (U) Negative Normal Negative [facility] Comment on above: Performed By: #### 4 [id number] #### [facility] [address] [place] [address] Hemoglobin Auto test strip (U) [Mass/Vol] Negative Normal Negative [facility] Comment on above: Performed By: #### 4 [id number] #### [facility] [address] [place] [address] Ketones Auto test strip Ql (U) Negative Normal Negative [facility] Comment on above: Performed By: #### 4 [id number] #### [facility] [address] [place] [address] Leukocyte esterase Auto test strip Ql (U) Negative Normal Negative [facility] Comment on above: Performed By: #### 4 [id number] #### [facility] [address] [place] [address] Nitrite Auto test strip Ql (U) Negative Normal Negative [facility] Comment on above: Performed By: #### 4 [id number] #### [facility] [address] [place] [address] pH (U) 5.5 [pH] Invalid Interpretation Code 5.0-9.0 [facility] Comment on above: Performed By: #### 4 [id number] #### [facility] [address] [place] [address] Protein Ql (U) Negative Normal Negative [facility] Comment on above: Performed By: #### 4 [id number] #### [facility] [address] [place] [id number] Specific gravity (U) [Rel density] 1.012 Invalid Interpretation Code 1.005-1.030 [facility] Comment on above: Performed By: #### 4 [id number] #### [facility] [address] [place] [address] Urobilinogen (U) [Mass/Vol] Negative Normal Negative [facility] Comment on above: Performed By: #### 4 [id number] #### [facility] [address] [place] [address] Type of Urine collection method Clean Catch Normal [facility] Comment on above: Performed By: #### 4 [id number] #### [facility] [address] [id number] URINALYSISOrdered By: SYSTEM SYSTEM on 12-25-2023 Bilirubin Ql (U) Negative Normal Negativemg/ d L [facility] UA Auto SS Clarity (U) Clear (12/25/23 7:53 AM) Normal Clear [facility] UA Auto SS Color (U) Light-Yellow 1 (12/25/23 7:53 AM) Normal Yellow [facility] UA Auto SS Comment on above: Interpretive Data: M icroscopic readings are only performed on those samples that meet specific criteria set forth by [facility]. Glucose Ql (U) Negative Normal [...] Normal Negativemg/d L FT UA Auto SS pH (U) 5.5 *NA* (12/25/23 7:53 AM) Invalid Interpretation Code 5.0 - 9.0 [facility] UA Auto SS Protein Ql (U) Negative Normal Negativemg/d L [facility] UA Auto SS Specific gravity (U) [Rel density] 1.012 *NA* (12/25/23 7:53 AM) Invalid Interpretation Code 1.005 - 1.030 [facility] UA Auto SS Urobilinogen (U) [Mass/Vol] Negative Normal Negativemg/d L [facility] UA Auto SS URINALYSISOrdered By: Genevieve Quintero on 12-25-2023 UA Spec Desc Clean Catch (12/25/23 7:53 AM) Normal [facility] UA Auto SS XR Chest 2 Viewson [...] mGy = na DAP = na Normal [facility] eGFRon 12-25-2023 eGFR 60 mL/min/1.73 m2 Normal >=59 [facility] Comment on above: Order Comment: Order added by Discern Expert. Performed By: #### 1 [id number] #### [facility] Laboratory [address] [place] [address] Reminderson 12-06-2023 Reminders - From: Carissa Hammonds [...] seen KML 11/29/23. Scheduled for TURP Normal [facility] Screenson 12-01-2023 Screens [id number] #1.00TIFF Normal [facility] Screens [id number] #1.00TIFF Normal [facility] Consent for Procedure/Surger yon 11-30-2023 Consent for Procedure/Surgery [id number]# 1.00TIFF Normal [facility] Patient Educationon 11-29-19 Patient Education Urology Transurethral Resection of the [...] these instructions at home: Medicines ? Take zwnn-hjn-rzqxmmm and prescription medicines only as told by [...] keep your urine pale yellow. ? Take sghv-bgg-smeqaqh or prescription medicines. ? Eat foods that [...] provider. Document Revised: 03/08/2022 Document Reviewed: 03/08/2022 [email or web address] Patient Education ? 2022 [email or web address] Transurethral Resection o (more content not included)... Normal [facility] Urology Office/Clinic Noteon 11-29-2023 Urology Office/Clinic [...] pelvic jameel (more content not included)... Normal [facility] Comment on above: Result Comment: Elec tronically Signed By: Meghan Brito MD\.br\Date and Time Signed: 11/29/23 16:11 EDT\.br\Electronically Co-Signed By: Carissa Hammonds\.br\Date and Time Co-Signed: 11/29/23 11:34 EDT Basophils Auto (Bld) [#/Vol] on 11-24-2023 Basophils (Bld) [#/Vol] 0.1 10 3/uL 0.0-0.1 [facility] Basophils/100 WBC Auto (Bld) on 11-24-2023 Basophils/100 WBC (Bld) 1.4 % 0.2-2.0 [facility] Cholesterol in LDL Calc [Mas s/Vol]on 11-24-2023 Cholesterol in LDL [Mass/Vol] 135.0 mg/dL [facility] Comment on above: <100 mg/dl [id number] 0-129 mg/dl NEAR OR ABOVE GUIZGFD854-649 mg/dl BORDERLINE VTGL591-507 mg/dl HIGH>190 mg/dl VERY HIGH Cholesterol in VLDL Calc [Ma ss/Vol]on 11-24-2023 Cholesterol in VLDL [Mass/Vol] 19.2 mg/dL [facility] Eosinophils/100 WBC Auto (Bl d)on 11-24-2023 Eosinophils/100 WBC (Bld) 4.8 % 0.9-7.0 [facility] Erythrocyte distribution wid th Auto (RBC) [Ratio]on 11-24-2023 Erythrocyte distribution width (RBC) [Ratio] 13.2 % 11.0-15.0 [facility] Estimated glomerular filtrat ion rate (GFR) non- Americanon 11-24-2023 GFR/1.73 sq M.predicted among non-blacks MDRD (S/P/Bld) [Vol rate/Area] 51 mL/min/{1.73_m2} >=60 [facility] Globulin Calc (S) [Mass/Vol] on 11-24-2023 Globulin (S) [Mass/Vol] 3.5 g/dL [facility] Hematocrit Auto (Bld) [Volum e fraction]on 11-24-2023 Hematocrit (Bld) [Volume fraction] 39.3 % 42.0-54.0 [facility] Hemoglobin [Mass/volume] in Bloodon 11-24-2023 Hemoglobin (Bld) [Mass/Vol] 12.9 g/dL 14.0-18.0 [facility] Laboratory - Chemistry and C hemistry - challengeon 11-24-2023 Albumin [Mass/Vol] 3.8 g/dL 3.4-5.0 [facility] ALP [Catalytic activity/Vol] 72 U/L 46-116 [facility] ALT [Catalytic activity/Vol] 25 U/L 16-63 [facility] AST [Catalytic activity/Vol] 17 U/L 15-37 [facility] Bilirubin [Mass/Vol] 0.9 mg/dL 0.2-1.0 [facility] Calcium [Mass/Vol] 8.9 mg/dL 8.5-10.1 [facility] Chloride [Moles/Vol] 105 mmol/L 98-107 [facility] Cholesterol [Mass/Vol] 188 mg/dL <=200 [facility] Cholesterol in HDL [Mass/Vol] 34 mg/dL 40-60 [facility] Comment on above: > or =60 mg/dl - LOW CARDIOVASCULAR RISK<40 mg/dl - HIGH CARDIOVASCULAR RISK CO2 [Moles/Vol] 28.1 mmol/L 21.0-32.0 [facility] Creatinine [Mass/Vol] 1.40 mg/dL 0.70-1.30 [facility] GFR/1.73 sq M.predicted MDRD (S/P/Bld) [Vol rate/Area] mL/min/{1.73_m2} >=60 [facility] Glucose [Mass/Vol] 114 mg/dL 74-106 [facility] Potassium [Moles/Vol] 4.2 mmol/L 3.5-5.1 [facility] Protein [Mass/Vol] 7.3 g/dL 6.4-8.2 [facility] Sodium [Moles/Vol] 142 mmol/L 136-145 [facility] Triglyceride [Mass/Vol] 96 mg/dL <=150 [facility] Urea nitrogen [Mass/Vol] 22.0 mg/dL 7.0-18.0 [facility] Urea nitrogen/Creatinine [Mass ratio] 15.7 mg/mg [facility] Laboratory - Hematology and Cell countson 11-24-2023 Immature granulocytes/100 WBC (Bld) 0.2 % 0.0-0.5 [facility] Leukocytes [#/volume] correc rina for nucleated erythrocytes in Blood by Automated counon 11-24-2023 WBC corrected for nucl RBC Auto (Bld) [#/Vol] 5.0 10 3/uL 4.0-11.0 [facility] Lymphocytes Auto (Bld) [#/Vo l]on 11-24-2023 Lymphocytes (Bld) [#/Vol] 1.6 10 3/uL 1.2-3.8 [facility] Lymphocytes/100 WBC Auto (Bl d)on 11-24-2023 Lymphocytes/100 WBC (Bld) 31.0 % 20.5-60.0 [facility] MCH Auto (RBC) [Entitic mass ]on 11-24-2023 MCH (RBC) [Entitic mass] 28.4 pg 25.9-34.0 [facility] MCHC Auto (RBC) [Mass/Vol]on 11-24-2023 MCHC (RBC) [Mass/Vol] 32.8 g/dL 29.9-35.2 [facility] MCV Auto (RBC) [Entitic vol] on 11-24-2023 MCV (RBC) [Entitic vol] 86.6 fL 80.0-94.0 [facility] Monocytes Auto (Bld) [#/Vol] on 11-24-2023 Monocytes (Bld) [#/Vol] 0.4 10 3/uL 0.3-0.8 [facility] Monocytes/100 WBC Auto (Bld) on 11-24-2023 Monocytes/100 WBC (Bld) 8.1 % 1.7-12.0 [facility] Neutrophils Auto (Bld) [#/Vo l]on 11-24-2023 Neutrophils (Bld) [#/Vol] 2.8 10 3/uL 1.4-6.5 [facility] Neutrophils/100 WBC Auto (Bl d)on 11-24-2023 Neutrophils/100 WBC (Bld) 54.5 % 43.0-75.0 [facility] No Panel Informationon 11-23 Eosinophils # (Auto) 0.2 10 3/uL 0.0-0.7 [facility] Immature Granulocyte # (Auto) 0.01 10 3/uL 0.00-0.03 [facility] Prostate Specific Antigen Screen 6.70 ng/mL <=4.00 [facility] Platelet mean volume Auto (B ld) [Entitic vol]on 11-24-2023 Platelet mean volume (Bld) [Entitic vol] 10.3 fL 9.5-13.5 [facility] Platelets Auto (Bld) [#/Vol] on 11-24-2023 Platelets (Bld) [#/Vol] 177 10 3/uL 150-450 [facility] RBC Auto (Bld) [#/Vol]on RBC (Bld) [#/Vol] 4.54 10 6/uL 4.70-6.10 [facility] Serum or plasma albumin/glob ulin mass ratioon 11-24-2023 Albumin/Globulin [Mass ratio] 1.1 {ratio} [facility] Serum or plasma anion gap de terminationon 11-24-2023 Anion gap [Moles/Vol] 13.1 [facility] Serum or plasma total choles terol/high density lipoprotein (HDL) cholesterol mass juve 11-24-2023 Cholesterol.total/Cho lesterol in HDL [Mass ratio] 5.5 {ratio} [facility] Comment on above: 3.3 - 4.4 LOW RISK4. 4 - 7.1 AVERAGE RISK7.1 - 11.0 MODERATE RISK>11.0 HIGH RISK Consent for Procedure/Surger yon 07-31-2023 Consent for Procedure/Surgery [id number] 6#1.00TIFF Normal [facility] Consent for Treatmenton Consent for Treatment [id number] #1.00TIFF Normal [facility] Inpatient Patient Summaryon 07-31-2023 Inpatient Patient Summary [place] [id number] Clinical Summary Person Information Name: MICHAEL KILLIAN Age: 68 Years : 1955 Sex: Male PCP: GIO CAVANAUGH DO Marital Status: Race: White Ethnicity: Non- or Language: Kyrgyz Visit Id: Visit Reason: GROSS HEMATURIA Speciality: Acuity: Enc Type: Outpatient Med Service: Surgery Arrival: 07/31/2023 07:51:46 Discharge: Dispo Type: Address: [address] [place] [address] [place] [address] [phone] Provider Notes: Diagnosis: BPH with urinary obstruction; [...] Brito MD Follow up: With: Address: When: Meghankevin Brito [address], [facility], [facility] [address] [place] [address] [phone] Business (1) Comments: Office to schedule follow up in 3-4 months or call sooner for procedure (pt knows will be done by partner/referred out if during leave) Patient Education Information: Robot-Assisted Laparoscopic Radical Prostatectomy; Transurethral Resection of the Prostate; EU - Cystoscopy Discharge Instructions (CUSTOM) [facility] IntraOperative Documentson 0 07-31-2023 IntraOperative Documents [id number] 6#1.00TIFF [facility] Main OR Intraoperative Recor don 07-31-2023 Main OR Intraoperative Record IntraOp Document Type FTURO Summary Primary Physician: Meghan Brito MD Finalized Date/Time: 07/31/23 09:01:26 Pt. Name: MICHAEL KILLIAN/Sex: 1955 Male Med Rec #: [id number] Physician: Meghan Brito MD Financial #: [id number] Pt. Type: O Room/Bed: / Admit/Disch: 07/31/23 07:51:46 - Institution: Case Times FTURO Entry 1 Patient Times In Room 07/31/23 08:49:00 Out Room 07/31/23 09:07:00 Procedure Times Start 07/31/23 08:56:00 Stop 07/31/23 09:02:00 Anesthesia Times Last Modified By: Marge ENCISO, Purnima THOMPSON 07/31/23 09:00:53 Case Attendance FTURO Entry 1 Entry 2 Entry 3 Case Attendee Meghan Brito MD, RN, DARSHANAOR, Bette HILL, Rachana Felton Role Performed Surgeon - Primary Certified Endoscopy Technician - Primary Scrub - Primary Time In 07/31/23 08:49:00 07/31/23 08:49:00 07/31/23 08:49:00 Time Out 07/31/23 09:07:00 07/31/23 09:07:00 07/31/23 09:07:00 Procedure CYSTOSCOPY LOCAL(.) CYSTOSCOPY LOCAL(.) CYSTOSCOPY LOCAL(.) Comments Last Modified By: Marge ENCISO, CNOR, Marge ENCISO, DARSHANAOR, Marge ENCISO, DARSHANAOR, Purnima [...] Out Meghan Brito MD, Verified (If Participants Marge ENCISO, DARSHANAOR, Applicable) Bette Felton CST, Kimberly A Time [...] By: JAY Bird RN, Ruthann 07/31/23 09:01 [facility] Main OR Preoperative Recordo n 07-31-2023 Main OR Preoperative Record Holding Area Document Type FTURO Summary Primary Physician: Meghan Brito MD Finalized Date/Time: 07/31/23 08:50:15 Pt. Name: DANIELMICHAEL/Sex: 1955 Male Med Rec #: [id number] Physician: Meghan Brito MD Financial #: [id number] Pt. Type: O Room/Bed: / Admit/Disch: 07/31/23 [...] JAY Bird RN, Ruthann 07/31/23 08:50 Normal [facility] Operative Reporton Operative Report Patient: MICHAEL KILLIAN Age: 68 years Sex: Male : 1955 Associated Diagnoses: None Author: Meghan Brito MD Procedure Operative Information Details: Date/ Time: 07/31/2023 09:06:00. Pre-Op Dx: BPH with urinary obstruction (RUR51-QU N40.1, Discharge, Medical), Feeling of incomplete bladder emptying (WGB50-JT R39.14, Discharge, Medical), Gross hematuria (JEM84-BP R31.0, Discharge, Medical). Post-Op Dx: Same. Anesthesia [...] BPH workup and gross hematuria. . Normal [facility] Comment on above: Result Comment: Elec tronically Signed By: Meghan Brito MD\.br\Date and Time Signed: 07/31/23 09:10 EST Outpatient Surgery Discharge Instructionon 07-31-2023 Outpatient Surgery Discharge Instruction [address] [address] Patient Discharge Instructions PERSON INFORMATION Name: MICHAEL [...] Follow up: With: Address: When: Meghan Brito [address] [place], [place] [id number] [phone] Business (1) Comments: Office to schedule follow [...] including vitamins, herbs, eye drops, creams, and esvu-dui-fubhnex medicines. ? Any problems you or family [...] tells you to take them. ? Taking wsii-gff-ljozkjx medicines, vitamins, herbs, and supplements. ? Follow your health care provider's instructions about cleaning out your bowels. Surgery s (more content not included)... Normal [facility] Progress Note-Physicianon Progress Note-Physician Patient: MICHAEL [...] Daily, # 90 tab(s), Refills(s) 3, Pharmacy: [facility], 180, cm, 06/16/23 9:50:00 EST, Height/Length Dosing, 108.2, kg, 06/16/23 9:50:00 EST, Weight Dosing Documented Medications Documented carvedilol 6.25 mg Tab: 6.25 mg = 1 tab(s), Oral, BID, # 60 tab(s), Refills(s) 0 lisinopril 40 mg Tab: mg tab(s), Oral, Daily, Refills(s) 0 Impression and Plan Assessment and Plan: Diagnosis: BPH with urinary obstruction (MII00-EX N40.1, Discharge, Medical), Pelvic lymphadenopathy (FFJ42-AC R59.0, Working, Medical), Chronic prostatitis (MTA47-BW N41.1, Discharge, Medical), Feeling of incomplete bladder emptying (MIW36-PI R39.14, Discharge, Medical), Gross hematuria (ECW72-YZ R31.0, Discharge, Medical). Assessment and Plan: Diagnosis: BPH with urinary obstruction (NRV68-KR N40.1, Discharge, Medical), Chronic prostatitis (AUG04-AW N41.1, Discharge, Medical), Feeling of incomplete bladder emptying (FHB81-QL R39.14, Discharge, Medical), Gross hematuria (PAL95-OS R31.0, Discharge, Medical), Pelvic lymphadenopathy (VZA71-CR R59.0, Working, Medical). 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 Gross hematuria - after [place] CTU 07/05/23 at [facility] - neg for upper tract filling [...] 4 to 5 months with PVR Normal [facility] Comment on above: Result Comment: Elec tronically Signed By: Daryl HAMILTON, Meghan Oshea.br\Date and Time Signed: 07/31/23 12:31 EST RAD - CT Reporton 07-10-2023 RAD - CT Report [id number]# 1.00TIFF Normal [facility] Lab Reportson 07-07-2023 Lab Reports [id number]# 1.00TIFF Normal [facility] Lab Reports [id number] #1.00TIFF Normal [facility] Urine Cytology ([facility])on 07-05-2023 Urine Cytology Diagnosis Info Invalid Interpretation Code [facility] Comment on above: Result Comment: A:Ur ine,Urine:Voided Interpretation - MicroScopic Description - Adequacy - Gross Description Site ID:A color Dark Rooks fixative Alcohol Specimen designated Urine received in alcohol preservative and labeled with the patient?s name, consists of 110ml cloudy dark peach fluid. Electronically signed by : on: 07/05/2023 13:00:05 Performed By: #### 1 [id number] ####[facility] [address] [place] [address] Urine Cytology ([facility])on 06-30-2023 Method of Extraction Voided Normal [facility] Comment on above: Performed By: #### 1 [id number] ####[facility] [address] [place] [address] Number of Jars 1 Invalid Interpretation Code [facility] Comment on above: Performed By: #### 1 [id number] ####[facility] [address] [place] [address] Specimen Urine Normal [facility] Comment on above: Performed By: #### 1 [id number] ####[facility] [address] [place] [address] Type of Service Technical Only Normal [facility] Comment on above: Performed By: #### 1 [id number] ####[facility] [address] [place] [address] IntraOperative Documentson 1 08-23-2022 IntraOperative Documents [id number] 0#1.00TIFF Normal [facility] Pathology Noteon 06-22-2023 Pathology Note [id number] #1.00TIFF Normal [facility] Screenson 06-20-2023 Screens [id number] #1.00TIFF Normal [facility] Screens [id number] #1.00TIFF Normal [facility] Ambulatory Visit Summaryon 1 08-17-2022 Ambulatory Visit Summary MICHAEL KILLIAN :1955 Visit Date:06/16/2023 Ambulatory Visit Instructions Your Diagnosis Elevated PSA BPH with urinary obstruction ED (erectile dysfunction) Former smoker Enlarged lymph node Tests Performed Urnls Dip Stick Auto w/o Microscopy POC [address] CT Pelvis w/o Contrast -- Results Pending [...] 9:15 AM EST Where: [facility] Patient Educationon 06-16-20 Patient Education Oncology Prostate [...] Where to find more information ? The [place] [employer]: www.cancer.org ? [place] [employer]: www.auanet.org Contact a health care [...] adds flu (more content not included)... Normal [facility] Urology Office/Clinic Noteon 06-16-2023 Urology Office/Clinic Note Chief Complaint S/P to MRI proste and review path HPI Staff S/p to MR prostate wo/ w con @ [facility] on 04/03/23 Review path report done 06/06/23 [...] consent jane (more content not included)... Normal [facility] Comment on above: Result Comment: Elec tronically Signed By: Meghan Brito MD\.br\Date and Time Signed: 06/16/23 15:18 EST\.br\Electronically Co-Signed By: Carissa Hammonds\.br\Date and Time Co-Signed: 06/16/23 11:02 EST Main OR Intraoperative Recor don 06-09-2023 Main OR Intraoperative Record IntraOp Document Type FT Summary Primary Physician: Meghan Brito MD Finalized Date/Time: 06/09/23 09:45:57 Pt. Name: MICHAEL KILLIAN /Sex: 1955 Male Med Rec #: [id number] Physician: Meghan Brito MD Financial #: [id number] Pt. Type: A Room/Bed: [place] [address] Admit/Disch: 06/06/23 13:31:36 - 06/06/23 18:00:13 Institution: [...] Performed Surgeon - Primary Scrub - Primary Certified Endoscopy Technician - Primary Time In 06/06/23 16:38:00 06/06/23 16:29:00 06/06/23 16:29:00 Time Out 06/06/23 16:49:00 06/06/23 16:55:00 06/06/23 16:55:00 Procedure PROSTATE TRANSPERINEAL PROSTATE TRANSPERINEAL PROSTATE TRANSPERINEAL BIOPSY WITH ULTRA(.) BIOPSY WITH ULTRA(.) BIOPSY WITH ULTRA(.) Comments Last Modified By: Jacinta Don Ii, Alfons Ii F Letrondo, Alfons Ii F 06/06/23 16:58:09 06/06/23 16:58:09 06/06/23 16:58:09 Entry 4 Case Attendee Sadie Zavaleta RN Role Performed Staff - Other Time In [...] Daryl HAMILTON, Meghan Tucker, Given Participants Niall Watson, Jacinta Don Ii F, Waqar ENCISO, Sadie Chinchilla Time [...] PROSTATE BIOPSY Primary Procedure Yes Primary Surgeon Daryl HAMILTON, Meghan Tucker Start 06/06/23 16:39:00 Stop 06/06/23 16:49:00 Anesthesia [...] and tissue Entry 1 Skin Integrity Intact, Roann, Warm, and Skin Abnormality No Dry Outcomes [...] Board Right (more content not included)... Normal [facility] Discharge Instructionson Discharge Instructions [id number] 9#1.00TIFF [facility] IntraOperative Documentson 08-09-2022 IntraOperative Documents [id number] 5#1.00TIFF [facility] IntraOperative Documents [id number] 9#1.00TIFF [facility] IntraOperative Documents [id number] 9#1.00TIFF [facility] Preoperative Documentson Preoperative Documents [id number] 5#1.00TIFF [facility] Consent for Procedure/Surger yon 06-06-2023 Consent for Procedure/Surgery [id number] 58#1.00TIFF [facility] Consent for Treatmenton 05-26 Consent for Treatment [id number] #1.00TIFF [facility] Discharge Instructionson Discharge Instructions MICHAEL KILLIAN [...] Meghan Brito MD Where: [facility] Comment on above: Result Comment: Elec tronically Signed By: Alcides ENCISO, Dori Mallory\.br\Date and Time Signed: 06/06/23 17:16 EST H&P Updateon 06-06-2023 H&P Update [id number] 9#1.00TIFF [facility] Inpatient Patient Summaryon 06-06-2023 Inpatient Patient Summary [place] [id number] [facility] Clinical Discharge Instructions PERSON INFORMATION Name: MICHAEL [...] Location Start [place]ish State [facility]RO Office [place] [facility] [place] 06/14/2023 10:30 AM 06/14/2023 10:45 AM Confirmed [...] Tab) By Mouth every day. Comment: Normal [facility] Operative Reporton Operative Report Patient: MICHAEL [...] . Impression and Plan Diagnosis Elevated PSA (SSG09-SH R97.20, Discharge, Medical). Diagnosis Elevated PSA (OST57-BM R97.20, Discharge, Medical). Normal [facility] Comment on above: Result Comment: Elec tronically Signed By: Daryl HAMILTON, Meghan Tucker\.br\Date and Time Signed: 06/06/23 16:58 EST Outpatient Surgery Discharge Instructionon 06-06-2023 Outpatient Surgery Discharge Instruction [place] [id number] Patient Discharge Instructions PERSON INFORMATION Name: MICHAEL KILLIAN Date of : 1955 Current Date: 06/06/2023 16:52:42 PHYSICIANS Admitting Physician: Meghan Brito MD Discharge Diagnosis: Elevated PSA DANIEL MICHAEL Bush has been given the following [...] Location Start [place] [place] [facility] Office [place] [facility] [place] 06/14/2023 10:30 AM 06/14/2023 10:45 [...] to serve you. Thank you for choosing [facility] HERE ARE THE MEDICATION CHANGES THAT [...] near your rectum, especially while sitting. ? Roann-colored urine due to small amounts of blood [...] urinating or catheter-related problems Medication Leaflets: [place] [facility] Patient Education - Texton 1 08-07-2022 Patient Education - Text Transperineal?Biopsy of the Prostate Discharge Instructions After the procedure, it is common to have: ? Pain and discomfort near your rectum, especially while sitting. ? Roann-colored urine due to small amounts of blood [...] you have difficulty urinating or catheter-related problems [facility] Outside Recordson 05-15-2023 Outside Records [id number] 5#1.00TIFF [facility] Ambulatory Visit Summaryon 1 07-12-2022 Ambulatory Visit Summary MICHAEL KILLIAN :1955 Visit Date:05/10/2023 Ambulatory Visit Instructions Your Diagnosis Elevated PSA BPH with urinary obstruction Tests Performed Urnls Dip Stick Auto w/o Microscopy POC 54233 Your Care Team Attending Physician - Daryl [...] 2:30 PM EST With: Where: [facility] Surgical Services Monday 10:30 AM EST With: Daryl HAMILTON, Meghan Tucker Where: [facility] Patient Educationon 05-10-20 Patient Education [...] Where to find more information ? The [place] [employer]: www.cancer.org ? [place] [employer]: www.auanet.org Contact a health care [...] adds flu (more content not included)... Normal [facility] Screenson 05-10-2023 Screens [id number] 1#1.00TIFF Normal [facility] Screens [id number] 3#1.00TIFF Normal [facility] Urology Office/Clinic Noteon 05-10-2023 Urology Office/Clinic [...] cancer upon bx. 95% likelihood of detecting [place] scores >=7 cancer. Today I reviewed the [...] the office notified. 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 2. BPH with [...] -Timed voids (more content not included)... Normal [facility] Comment on above: Result Comment: Elec tronically Signed By: Meghan Brito MD\.br\Date and Time Signed: 05/10/23 11:31 EST\.br\Electronically Co-Signed By: Nevaeh Padilla\.br\Date and Time Co-Signed: 05/10/23 11:22 EST Lab Reportson 04-18-2023 Lab Reports [id number] #1.00TIFF Normal [facility] Physician Orderon 04-13-2023 Physician Order [id number] #1.00TIFF Normal [facility] Formson 04-12-2023 Forms [id number] #1.00TIFF Normal [facility] Lab Reportson 04-12-2023 Lab Reports [id number] #1.00TIFF Normal [facility] Patient Educationon 04-11-20 Patient Education Oncology [...] Where to find more information ? The [place] [employer]: www.cancer.org ? [place] [employer]: www.auanet.org Contact a health care [...] adds flu (more content not included)... Normal [facility] Urology Office/Clinic Noteon 04-11-2023 Urology Office/Clinic [...] given order for PSA. Will complete at [facility]. Return in about 4 weeks to [...] with plan. Follow-up With When Contact Information THERESA FLEMING PA-C, URL [address] [address] [phone] Additional Instructions: f/u with MD in 1 month w/ PSA and [facility] Patient Education Prostate Cancer Screening Documentation recorded by the doreen Hammonds accurately reflects the services(s) I performed and decisions made by me. Authenticated by Theresa Fleming PA-C on 04/11/2023 13:13:13. Carissa Solo, personally scribed for Theresa Fleming PA-C on [...] SARS-CoV-2 (COVID-19) Ad26 vaccine 09/02/2020 Recorded Normal [facility] Comment on above: Result Comment: Elec tronically Signed By: THERESA FLEMING PA-C\.br\Date and Time Signed: 04/11/23 13:13 EDT\.br\Electronically Co-Signed By: Carissa Hammonds\.br\Date and Time Co-Signed: 04/11/23 12:33 EDT RAD - MRI Reporton 3 RAD - MRI Report [id number] #1.00TIFF Normal [facility] Creatinine (Bld) [Mass/Vol]O rdered By: Theresa Fleming on 04-03-2023 Creatinine [Mass/Vol] 1.4 mg/dL 0.6-1.3 [facility] Comment on above: ER/ESD physician is notified/shown all ISTAT results.Critical values may be confirmed by laboratory testing ifdeemed necessary by ER attending doctor. ISTAT XRay CREon 04-03-2023 Creatinine [Mass/Vol] 1.4 mg/dL High 0.6-1.3 [facility] Comment on above: Result Comment: ER/E SD physician is notified/shown all ISTAT results. Critical values may be confirmed by laboratory testing if deemed necessary by ER attending doctor. Performed By: #### I SCRE #### [address] ISTAT GFR 55.088 Normal [facility] Comment on above: Result Comment: PERF ORMED BY: [place] [id number] PATHOLOGIST TUFTING SUPERVISOR SARAH BETH SILVEIRA M.D. Performed By: #### I SCRE #### [facility] [address] [place] [address] MR prostate wo/w conon 04-03 MR prostate wo/w con [facility] [place] [address] [place] [address] MRI Report Signed Patient: Michael Killian MR#: [id number] 050 : 1955 Acct:[id number] Age/Sex: 68 / M ADM Date: 04/03/23 Loc: Room: Type: [facility] [address] Attending Dr: Theresa Fleming PA-C Copies to: Theresa Fleming PA-C [...] Cleary Jr., D.O.04/03/2023 1:40 PM Dictation Location: [facility]15 Transcribed By: [facility] 04/03/23 1340 Dictated By: Leandro Cleary Jr, DO 04/03/23 1334 Signed By: 04/03/23 1340 [facility] PROF 14(COMP METB)on 023 Albumin [Mass/Vol] 3.9 g/dL Normal 3.4-5.0 [facility] Comment on above: Performed By: #### B MP #### [facility] [address] [place] [address] Dr. Duy James Albumin/Globulin [Mass ratio] 1.1 {ratio} Normal [facility] Comment on above: Performed By: #### B MP #### [facility] [address] [place] [address] Dr. Duy James ALP [Catalytic activity/Vol] 70 U/L Normal 46-116 [facility] Comment on above: Performed By: #### B MP #### [facility] [address] [address] [address] Duy James ALT [Catalytic activity/Vol] 26 U/L Normal 16-63 [facility] Comment on above: Performed By: #### B MP #### [facility] [address] [address] [address] Duy James Anion gap [Moles/Vol] 13.1 mmol/L Normal [facility] Comment on above: Performed By: #### B MP #### [facility] [address] [address] [address] Duy James AST [Catalytic activity/Vol] 17 U/L Normal 15-37 [facility] Comment on above: Performed By: #### B MP #### [facility] [address] [address] [address] Duy James Bilirubin [Mass/Vol] 0.6 mg/dL Normal 0.2-1.0 [facility] Comment on above: Performed By: #### B MP #### [facility] [address] [address] [address] Duy James Calcium [Mass/Vol] 9.0 mg/dL Normal 8.5-10.1 [facility] Comment on above: Performed By: #### B MP #### [facility] [address] [address] [address] Duy James Chloride [Moles/Vol] 106 mmol/L Normal 98-107 [facility] Comment on above: Performed By: #### B MP #### [facility] [address] [address] [address] Duy James CO2 [Moles/Vol] 28.5 mmol/L Normal 21.0-32.0 [facility] Comment on above: Performed By: #### B MP #### [facility] [address] [address] [address] Duy James Creatinine [Mass/Vol] 1.22 mg/dL Normal 0.70-1.30 [facility] Comment on above: Performed By: #### B MP #### [facility] [address] [address] [address] Duy James EGFR-AF FILIPINO >60 Normal >=60 [facility] Comment on above: Performed By: #### B MP #### [facility] [address] [address] [address] Duy James EGFR-NON AF FILIPINO 59 mL/min/1.73m2 Critically low >=60 [facility] Comment on above: Performed By: #### B MP #### [facility] [address] [address] [address] Duy James Globulin (S) [Mass/Vol] 3.7 g/dL Normal [facility] Comment on above: Performed By: #### B MP #### [facility] [address] [address] [address] Duy James Glucose [Mass/Vol] 113 mg/dL Critically high 74-106 [facility] Comment on above: Performed By: #### B MP #### [facility] [address] [address] [address] Duy James Potassium [Moles/Vol] 4.6 mmol/L Normal 3.5-5.1 [facility] Comment on above: Performed By: #### B MP #### [facility] [address] [place] [address] Dr. Duy James Protein [Mass/Vol] 7.6 g/dL Normal 6.4-8.2 [facility] Comment on above: Performed By: #### B MP #### [facility] [address] [address] [address] Duy James Sodium [Moles/Vol] 143 mmol/L Normal 136-145 [facility] Comment on above: Performed By: #### B MP #### [facility] [address] [place] [address] Dr. Duy James Urea nitrogen [Mass/Vol] 12.0 mg/dL Normal 7.0-18.0 [facility] Comment on above: Performed By: #### B MP #### [facility] [address] [address] [address] Duy James Urea nitrogen/Creatinine [Mass ratio] 9.8 mg/mg Normal [facility] Comment on above: Performed By: #### B MP #### [facility] [address] [place] [address] Dr. Duy James XR CHEST 2 Von [...] LIDYA VALE Date: 2022-11-07 09:16 Normal [facility] CULTURE BLOODon 08-30-2022 Microscopic examination [...] Trimethoprim/Sulfame thoxazole <=10 S F Normal [facility] Comment on above: Performed By: #### B MP #### [facility] [address] [place] [address] Dr. Duy James HEPATITIS PANEL, ACUTEon HBsAg Screen Negative Normal Negative [facility] Comment on above: Performed By: #### C BC #### [facility] [address] [place] [address] Dr. Duy James HCV AB Non-Reactive Normal Non Reactive [facility] Comment on above: Performed By: #### C BC #### [facility] [address] [place] [address] Dr. Duy James Hep A Ab, IgM Negative Normal Negative [facility] Comment on above: Performed By: #### C BC #### [facility] [address] [place] [address] Dr. Duy James Hep B Core Ab, IgM Negative Normal Negative [facility] Comment on above: Performed By: #### C BC #### [facility] [address] [place] [address] Dr. Duy James Interpretation: Comment Normal [facility] Comment on above: Result Comment: Not infected with HCV unless early or acute infection is suspected (which may be delayed in an immunocompromised individual), or other evidence exists to indicate HCV infection. Performed By: #### C BC #### [facility] [address] [place] [address] Dr. Duy James CBC W MANUAL DIFFon 08-29-19 23 ATYPICAL LYMPH # Normal [facility] Comment on above: Performed By: #### B MP #### [facility] [address] [place] [address] Dr. Duy James ATYPICAL LYMPH % Normal [facility] Comment on above: Performed By: #### B MP #### [facility] [address] [place] [address] Dr. Duy James BAND # 0.0 103/ul Normal 0.0-0.3 [facility] Comment on above: Performed By: #### B MP #### [facility] [address] [place] [address] Dr. Duy James BAND % 0 % Normal 0-5 [facility] Comment on above: Performed By: #### B MP #### [facility] [address] [place] [address] Dr. Duy James BASOM # 0.00 103/ul Normal 0.00-0.10 [facility] Comment on above: Performed By: #### B MP #### [facility] [address] [place] [address] Dr. Duy James BASOM % 0.0 % Critically low 0.2-2.0 [facility] Comment on above: Performed By: #### B MP #### [facility] [address] [place] [address] Dr. Duy James BLAST # Normal [facility] Comment on above: Performed By: #### B MP #### [facility] [address] [place] [address] Dr. Duy James BLAST % Normal [facility] Comment on above: Performed By: #### B MP #### [facility] [address] [address] [address] Duy James CORRECTED WBC Normal 4.0-11.0 [facility] Comment on above: Performed By: #### B MP #### [facility] [address] [address] [address] Duy James EOS # 0.00 103/ul Normal 0.00-0.70 [facility] Comment on above: Performed By: #### B MP #### [facility] [address] [address] [address] Duy James EOS% 0.0 % Critically low 0.9-7.0 [facility] Comment on above: Performed By: #### B MP #### [facility] [address] [place] [address] Dr. Duy James HCT 36.8 % Critically low 42.0-54.0 [facility] Comment on above: Performed By: #### B MP #### [facility] [address] [place] [address] Dr. Duy James HGB 12.0 g/dl Critically low 14.0-18.0 [facility] Comment on above: Performed By: #### B MP #### [facility] [address] [place] [address] Dr. Duy James LYMPHM # 0.47 103/ul Critically low 1.20-3.80 [facility] Comment on above: Performed By: #### B MP #### [facility] [address] [address] [address] Duy James LYMPHM% 6.0 % Critically low 20.5-60.0 [facility] Comment on above: Performed By: #### B MP #### [facility] [address] [place] [address] Dr. Duy James MCH 28.4 pg Normal 25.9-34.0 [facility] Comment on above: Performed By: #### B MP #### [facility] [address] [place] [address] Dr. Duy James MCHC 32.6 g/dl Normal 29.9-35.2 [facility] Comment on above: Performed By: #### B MP #### [facility] [address] [place] [address] Dr. Duy James MCV 87.0 fL Normal 80.0-94.0 [facility] Comment on above: Performed By: #### B MP #### [facility] [address] [place] [address] Dr. Duy James METAMYELOCYTE # Normal [facility] Comment on above: Performed By: #### B MP #### [facility] [address] [place] [address] Dr. Duy James METAMYELOCYTE % Normal [facility] Comment on above: Performed By: #### B MP #### [facility] [address] [place] [address] Dr. Duy James MONOM# 0.40 103/ul Normal 0.30-0.80 [facility] Comment on above: Performed By: #### B MP #### [facility] [address] [place] [address] Dr. Duy James MONOM% 5.0 % Normal 1.7-12.0 [facility] Comment on above: Performed By: #### B MP #### [facility] [address] [place] [address] Dr. Duy James MPV 10.2 fL Normal 9.5-13.5 [facility] Comment on above: Performed By: #### B MP #### [facility] [address] [place] [address] Dr. Duy James MYELOCYTE # Normal [facility] Comment on above: Performed By: #### B MP #### [facility] [address] [place] [address] Dr. Duy James MYELOCYTE % Normal [facility] Comment on above: Performed By: #### B MP #### [facility] [address] [place] [address] Dr. Duy James NRBC Normal [facility] Comment on above: Performed By: #### B MP #### [facility] [address] [address] [address] Duy James PLT 205 103/ul Normal 150-450 [facility] Comment on above: Performed By: #### B MP #### [facility] [address] [place] [address] Dr. Duy James RBC 4.23 106/ul Critically low 4.70-6.10 [facility] Comment on above: Performed By: #### B MP #### [facility] [address] [place] [address] Dr. Duy James RDW 13.3 % Normal 11.0-15.0 [facility] Comment on above: Performed By: #### B MP #### [facility] [address] [place] [address] Dr. Duy James SEG # 7.03 103/ul Critically high 1.40-6.50 [facility] Comment on above: Performed By: #### B MP #### [facility] [address] [place] [address] Dr. Duy James SEG % 89.0 % Critically high 43.0-75.0 [facility] Comment on above: Performed By: #### B MP #### [facility] [address] [place] [address] Dr. Duy James WBC 7.9 103/ul Normal 4.0-11.0 [facility] Comment on above: Performed By: #### B MP #### [facility] [address] [place] [address] Dr. Duy James PROF 14(COMP METB)on 023 Albumin [Mass/Vol] 3.4 g/dL Normal 3.4-5.0 [facility] Comment on above: Performed By: #### C BC #### [facility] [address] [place] [address] Dr. Duy James Albumin/Globulin [Mass ratio] 1.0 {ratio} Normal [facility] Comment on above: Performed By: #### C BC #### [facility] [address] [place] [address] Dr. Duy James ALP [Catalytic activity/Vol] 73 U/L Normal 46-116 [facility] Comment on above: Performed By: #### C BC #### [facility] [address] [address] [address] Duy James ALT [Catalytic activity/Vol] 66 U/L Critically high 16-63 [facility] Comment on above: Performed By: #### C BC #### [facility] [address] [address] [address] Duy James Anion gap [Moles/Vol] 10.6 mmol/L Normal [facility] Comment on above: Performed By: #### C BC #### [facility] [address] [place] [address] Dr. Duy James AST [Catalytic activity/Vol] 26 U/L Normal 15-37 [facility] Comment on above: Performed By: #### C BC #### [facility] [address] [place] [address] Dr. Duy James Bilirubin [Mass/Vol] 0.3 mg/dL Normal 0.2-1.0 [facility] Comment on above: Performed By: #### C BC #### [facility] [address] [place] [address] Dr. Duy James Calcium [Mass/Vol] 8.9 mg/dL Normal 8.5-10.1 [facility] Comment on above: Performed By: #### C BC #### [facility] [address] [address] [address] Duy James Chloride [Moles/Vol] 106 mmol/L Normal 98-107 [facility] Comment on above: Performed By: #### C BC #### [facility] [address] [address] [address] Duy James CO2 [Moles/Vol] 29.3 mmol/L Normal 21.0-32.0 [facility] Comment on above: Performed By: #### C BC #### [facility] [address] [address] [address] Duy James Creatinine [Mass/Vol] 1.12 mg/dL Normal 0.70-1.30 [facility] Comment on above: Performed By: #### C BC #### [facility] [address] [address] [address] Duy James EGFR-AF FILIPINO >60 Normal >=60 [facility] Comment on above: Performed By: #### C BC #### [facility] [address] [address] [address] Duy James EGFR-NON AF FILIPINO >60 Normal >=60 [facility] Comment on above: Performed By: #### C BC #### [facility] [address] [address] [address] Duy James Globulin (S) [Mass/Vol] 3.3 g/dL Normal [facility] Comment on above: Performed By: #### C BC #### [facility] [address] [place] [address] Dr. uDy James Glucose [Mass/Vol] 157 mg/dL Critically high 74-106 [facility] Comment on above: Performed By: #### C BC #### [facility] [address] [address] [address] Duy James Potassium [Moles/Vol] 4.9 mmol/L Normal 3.5-5.1 [facility] Comment on above: Performed By: #### C BC #### [facility] [address] [place] [address] Dr. Duy James Protein [Mass/Vol] 6.7 g/dL Normal 6.4-8.2 [facility] Comment on above: Performed By: #### C BC #### [facility] [address] [address] [address] Duy James Sodium [Moles/Vol] 141 mmol/L Normal 136-145 [facility] Comment on above: Performed By: #### C BC #### [facility] [address] [address] [address] Duy James Urea nitrogen [Mass/Vol] 22.0 mg/dL Critically high 7.0-18.0 [facility] Comment on above: Performed By: #### C BC #### [facility] [address] [place] [address] Dr. Duy James Urea nitrogen/Creatinine [Mass ratio] 19.6 mg/mg Normal [facility] Comment on above: Performed By: #### C BC #### [facility] [address] [place] [address] Dr. Duy James MAGNESIUMon 08-27-2022 Magnesium [Mass/Vol] 2.0 mg/dL Normal 1.8-2.4 [facility] Comment on above: Performed By: #### C MP, MG #### [facility] [address] [place] [address] Dr. Duy James PROF 14(COMP METB)on 023 Albumin [Mass/Vol] 3.6 g/dL Normal 3.4-5.0 [facility] Comment on above: Performed By: #### C MP, MG #### [facility] [address] [place] [address] Dr. Duy James Albumin/Globulin [Mass ratio] 0.9 {ratio} Normal [facility] Comment on above: Performed By: #### C MP, MG #### [facility] [address] [place] [address] Dr. Duy James ALP [Catalytic activity/Vol] 79 U/L Normal 46-116 [facility] Comment on above: Performed By: #### C MP, MG #### [facility] [address] [place] [address] Dr. Duy James ALT [Catalytic activity/Vol] 86 U/L Critically high 16-63 [facility] Comment on above: Performed By: #### C MP, MG #### [facility] [address] [place] [address] Dr. Duy James Anion gap [Moles/Vol] 14.3 mmol/L Normal [facility] Comment on above: Performed By: #### C MP, MG #### [facility] [address] [place] [address] Dr. Duy James AST [Catalytic activity/Vol] 38 U/L Critically high 15-37 [facility] Comment on above: Performed By: #### C MP, MG #### [facility] [address] [address] [address] Duy James Bilirubin [Mass/Vol] 0.4 mg/dL Normal 0.2-1.0 [facility] Comment on above: Performed By: #### C MP, MG #### [facility] [address] [place] [address] Dr. Duy James Calcium [Mass/Vol] 9.3 mg/dL Normal 8.5-10.1 [facility] Comment on above: Performed By: #### C MP, MG #### [facility] [address] [place] [address] Dr. Duy James Chloride [Moles/Vol] 106 mmol/L Normal 98-107 [facility] Comment on above: Performed By: #### C MP, MG #### [facility] [address] [place] [address] Dr. Duy James CO2 [Moles/Vol] 27.1 mmol/L Normal 21.0-32.0 [facility] Comment on above: Performed By: #### C MP, MG #### [facility] [address] [place] [address] Dr. Duy James Creatinine [Mass/Vol] 1.17 mg/dL Normal 0.70-1.30 [facility] Comment on above: Performed By: #### C MP, MG #### [facility] [address] [place] [address] Dr. Duy James EGFR-AF FILIPINO >60 Normal >=60 [facility] Comment on above: Performed By: #### C MP, MG #### [facility] [address] [place] [address] Dr. Duy James EGFR-NON AF FILIPINO >60 Normal >=60 [facility] Comment on above: Performed By: #### C MP, MG #### [facility] [address] [place] [address] Dr. Duy James Globulin (S) [Mass/Vol] 3.8 g/dL Normal [facility] Comment on above: Performed By: #### C MP, MG #### [facility] [address] [address] [address] Duy James Glucose [Mass/Vol] 163 mg/dL Critically high 74-106 [facility] Comment on above: Performed By: #### C MP, MG #### [facility] [address] [place] [address] Dr. Duy James Potassium [Moles/Vol] 5.4 mmol/L Critically high 3.5-5.1 [facility] Comment on above: Performed By: #### C MP, MG #### [facility] [address] [place] [address] Dr. Duy James Protein [Mass/Vol] 7.4 g/dL Normal 6.4-8.2 [facility] Comment on above: Performed By: #### C MP, MG #### [facility] [address] [place] [address] Dr. Duy James Sodium [Moles/Vol] 142 mmol/L Normal 136-145 [facility] Comment on above: Performed By: #### C MP, MG #### [facility] [address] [place] [address] Dr. Duy James Urea nitrogen [Mass/Vol] 16.0 mg/dL Normal 7.0-18.0 [facility] Comment on above: Performed By: #### C MP, MG #### [facility] [address] [place] [address] Dr. Duy James Urea nitrogen/Creatinine [Mass ratio] 13.7 mg/mg Normal [facility] Comment on above: Performed By: #### C MP, MG #### [facility] [address] [place] [address] Dr. Duy James PROF CHEM 8 (BAS METB)on Anion gap [Moles/Vol] 15.1 mmol/L Normal [facility] Comment on above: Performed By: #### B MP #### [facility] [address] [place] [address] Dr. Duy James Calcium [Mass/Vol] 9.0 mg/dL Normal 8.5-10.1 [facility] Comment on above: Performed By: #### B MP #### [facility] [address] [place] [address] Dr. Duy James Chloride [Moles/Vol] 105 mmol/L Normal 98-107 [facility] Comment on above: Performed By: #### B MP #### [facility] [address] [address] [address] Duy James CO2 [Moles/Vol] 27.0 mmol/L Normal 21.0-32.0 [facility] Comment on above: Performed By: #### B MP #### [facility] [address] [place] [address] Dr. Duy James Creatinine [Mass/Vol] 1.20 mg/dL Normal 0.70-1.30 [facility] Comment on above: Performed By: #### B MP #### [facility] [address] [place] [address] Dr. Duy James EGFR-AF FILIPINO >60 Normal >=60 [facility] Comment on above: Performed By: #### B MP #### [facility] [address] [place] [address] Dr. Duy James EGFR-NON AF FILIPINO >60 Normal >=60 [facility] Comment on above: Performed By: #### B MP #### [facility] [address] [place] [address] Dr. Duy James Glucose [Mass/Vol] 155 mg/dL Critically high 74-106 [facility] Comment on above: Performed By: #### B MP #### [facility] [address] [place] [address] Dr. Duy James Potassium [Moles/Vol] 5.1 mmol/L Normal 3.5-5.1 [facility] Comment on above: Performed By: #### B MP #### [facility] [address] [place] [address] Dr. Duy James Sodium [Moles/Vol] 142 mmol/L Normal 136-145 [facility] Comment on above: Performed By: #### B MP #### [facility] [address] [address] [address] Duy James Urea nitrogen [Mass/Vol] 19.0 mg/dL Critically high 7.0-18.0 [facility] Comment on above: Performed By: #### B MP #### [facility] [address] [address] [address] Duy James Urea nitrogen/Creatinine [Mass ratio] 15.8 mg/mg Normal [facility] Comment on above: Performed By: #### B MP #### [facility] [id number] Duy James XR CHEST 2 Von [...] GRACIE DEAN Date: 2022-08-27 08:27 Normal [facility] BLOOD CULTURE ID PANELon A. baumannii Not detected Normal NOT DETECTED [facility] Comment on above: Performed By: #### C BC #### [facility] [address] [place] [address] Dr. Duy James Bacteriodes fragilis Not detected Normal NOT DETECTED [facility] Comment on above: Performed By: #### C BC #### [facility] [address] [address] [address] Duy James BCID CONTROLS PASSED Normal [facility] Comment on above: Performed By: #### C BC #### [facility] [address] [address] [address] Duy James BCIDBTHD BLOOD CULTURE BOTTLE INFORMATION Normal [facility] Comment on above: Performed By: #### C BC #### [facility] [address] [place] [address] Dr. Duy James BCIDHD1 ANTIMICROBIAL RESISTANCE GENES Normal [facility] Comment on above: Performed By: #### C BC #### [facility] [address] [place] [address] Dr. Duy James BCIDHD2 SEE BELOW [facility] Comment on above: Result Comment: Note : Antimicrobial resitance can occur via multiple mechanisms. A Not Detected result for the [employer] antomicrobial resistance gene assays does not indicate antimicrobial susceptibility. Subculturing is required for species identification and susceptibility testing of isolates. Performed By: #### C BC #### [facility] [address] [place] [address] Dr. Duy James BCIDHD3 Positive [facility] Comment on above: Performed By: #### C BC #### [facility] [address] [place] [address] Dr. Duy James BCIDHD4 Negative [facility] Comment on above: Performed By: #### C BC #### [facility] [address] [place] [address] Dr. Duy James BCIDHD5 YEAST Normal [facility] Comment on above: Performed By: #### C BC #### [facility] [address] [place] [address] Dr. Duy James Bottle Set: Set 1 [facility] Comment on above: Performed By: #### C BC #### [facility] [address] [place] [address] Dr. Duy James Bottle: Anaerobic Normal [facility] Comment on above: Performed By: #### C BC #### [facility] [address] [place] [address] Dr. Duy James C. neoformans/gattii Not detected Normal NOT DETECTED [facility] Comment on above: Performed By: #### C BC #### [facility] [address] [place] [address] Dr. Duy James Gala albicans Not detected Normal NOT DETECTED [facility] Comment on above: Performed By: #### C BC #### [facility] [address] [place] [address] Dr. Duy James Gala auris Not detected Normal NOT DETECTED [facility] Comment on above: Performed By: #### C BC #### [facility] [address] [place] [address] Dr. Duy James Gala glabrata Not detected Normal NOT DETECTED [facility] Comment on above: Performed By: #### C BC #### [facility] [address] [place] [address] Dr. Duy James Gala Krusei Not detected Normal NOT DETECTED [facility] Comment on above: Performed By: #### C BC #### [facility] [address] [place] [address] Dr. Duy James Gala Parapsilosis Not detected Normal NOT DETECTED [facility] Comment on above: Performed By: #### C BC #### [facility] [address] [place] [address] Dr. Duy James Gala Tropicalis Not detected Normal NOT DETECTED [facility] Comment on above: Performed By: #### C BC #### [facility] [address] [place] [address] Dr. Duy James CTX-M Resistant Gene Not Applicable Normal NOT DETECTE D [facility] Comment on above: Performed By: #### C BC #### [facility] [address] [place] [address] Dr. Duy James E. Cloacae complex Not detected Normal NOT DETECTED [facility] Comment on above: Performed By: #### C BC #### [facility] [address] [place] [address] Dr. Duy James E. faecalis Not detected Normal NOT DETECTED [facility] Comment on above: Performed By: #### C BC #### [facility] [address] [place] [address] Dr. Duy James E. faecium Not detected Normal NOT DETECTED [facility] Comment on above: Performed By: #### C BC #### [facility] [address] [place] [address] Dr. Duy James Enterobacteriaceae Not detected Normal NOT DETECTED [facility] Comment on above: Performed By: #### C BC #### [facility] [address] [place] [address] Dr. Duy James Escherichia coli Not detected Normal NOT DETECTED [facility] Comment on above: Performed By: #### C BC #### [facility] [address] [place] [address] Dr. Duy James H. influenzae Not detected Normal NOT DETECTED [facility] Comment on above: Performed By: #### C BC #### [facility] [address] [place] [address] Dr. Duy James IMP Resistant Gene Not Applicable Normal NOT DETECTED [facility] Comment on above: Performed By: #### C BC #### [facility] [address] [place] [address] Dr. Duy James K. oxytoca Not detected Normal NOT DETECTED [facility] Comment on above: Performed By: #### C BC #### [facility] [address] [place] [address] Dr. Duy James K. pneumoniae Not detected Normal NOT DETECTED [facility] Comment on above: Performed By: #### C BC #### [facility] [address] [place] [address] Dr. Duy James Klebsiella aerogenes Not detected Normal NOT DETECTED [facility] Comment on above: Performed By: #### C BC #### [facility] [address] [place] [address] Dr. Duy James KPC Resistant Gene Not Applicable Normal NOT DETECTED [facility] Comment on above: Performed By: #### C BC #### [facility] [address] [place] [address] Dr. Duy James List. monocytogenes Not detected Normal NOT DETECTED [facility] Comment on above: Performed By: #### C BC #### [facility] [address] [place] [address] Dr. Duy James Mcr-1 Resistant Gene Not Applicable Normal NOT DETECTE D [facility] Comment on above: Performed By: #### C BC #### [facility] [address] [place] [address] Dr. Duy James mecA/C Not Applicable Normal NOT DETECTED [facility] Comment on above: Performed By: #### C BC #### [facility] [address] [place] [address] Dr. Duy James mecA/C MREJ Not Applicable Normal NOT DETECTED [facility] Comment on above: Performed By: #### C BC #### [facility] [address] [place] [address] Dr. Duy James N. meningitidis Not detected Normal NOT DETECTED [facility] Comment on above: Performed By: #### C BC #### [facility] [address] [place] [address] Dr. Duy James NDM Resistant Gene Not Applicable Normal NOT DETECTED [facility] Comment on above: Performed By: #### C BC #### [facility] [address] [place] [address] Dr. Duy James Oxa-48-like Not Applicable Normal NOT DETECTED [facility] Comment on above: Performed By: #### C BC #### [facility] [address] [place] [address] Dr. Duy James Proteus Not detected Normal NOT DETECTED [facility] Comment on above: Performed By: #### C BC #### [facility] [address] [place] [address] Dr. Duy James Pseud. aeruginosa Not detected Normal NOT DETECTED [facility] Comment on above: Performed By: #### C BC #### [facility] [address] [place] [address] Dr. Duy James S. maltophilia Not detected Normal NOT DETECTED [facility] Comment on above: Performed By: #### C BC #### [facility] [address] [place] [address] Dr. Duy James Salmonella Not detected Normal NOT DETECTED [facility] Comment on above: Performed By: #### C BC #### [facility] [address] [place] [address] Dr. Duy James Seratia marcescens Not detected Normal NOT DETECTED [facility] Comment on above: Performed By: #### C BC #### [facility] [address] [place] [address] Dr. Duy James Site: L a/c Normal [facility] Comment on above: Performed By: #### C BC #### [facility] [address] [place] [address] Dr. Duy James Staph. aureus Not detected Normal NOT DETECTED [facility] Comment on above: Performed By: #### C BC #### [facility] [address] [place] [address] Dr. Duy James Staph. epidermidis Not detected Normal NOT DETECTED [facility] Comment on above: Performed By: #### C BC #### [facility] [address] [place] [address] Dr. Duy James Staph. lugdunensis Not detected Normal NOT DETECTED [facility] Comment on above: Performed By: #### C BC #### [facility] [address] [place] [address] Dr. Duy James Staphylococcus Detected Critically abnormal NOT DETECTED [facility] Comment on above: Performed By: #### C BC #### [facility] [address] [place] [address] Dr. Duy James Strep. agalactiae Not detected Normal NOT DETECTED [facility] Comment on above: Performed By: #### C BC #### [facility] [address] [place] [address] Dr. Duy James Strep. pneumoniae Not detected Normal NOT DETECTED [facility] Comment on above: Performed By: #### C BC #### [facility] [address] [place] [address] Dr. Duy James Strep. pyogenes Not detected Normal NOT DETECTED [facility] Comment on above: Performed By: #### C BC #### [facility] [address] [place] [address] Dr. Duy James Streptococcus Not detected Normal NOT DETECTED [facility] Comment on above: Performed By: #### C BC #### [facility] [address] [place] [address] Dr. Duy James Cullen/B Resist. Gene Not Applicable Normal NOT DETECTED [facility] Comment on above: Performed By: #### C BC #### [facility] [address] [place] [address] Dr. Duy James VIM Resistant Gene Not Applicable Normal NOT DETECTED [facility] Comment on above: Performed By: #### C BC #### [facility] [address] [place] [address] Dr. Duy James BLOOD GASES BTYon 08-26-2022 02 MODE NASAL CANNULA Normal [facility] Comment on above: Performed By: #### C BC #### [facility] [address] [place] [address] Dr. Duy James ALLENS TEST Positive [facility] Comment on above: Performed By: #### C BC #### [facility] [address] [place] [address] Dr. Duy James Base excess Calc (Bld) [Moles/Vol] -1.3000 mmol/L Normal -2.0-2.0 [facility] Comment on above: Performed By: #### C BC #### [facility] [address] [place] [address] Dr. Duy James BIPAP PRESSURE [facility] Comment on above: Performed By: #### C BC #### [facility] [address] [place] [address] Dr. Duy James CPAP [facility] Comment on above: Performed By: #### C BC #### [facility] [address] [place] [address] Dr. Duy James FIO2 Normal [facility] Comment on above: Performed By: #### C BC #### [facility] [address] [place] [address] Dr. Duy James HCO3 (Bld) [Moles/Vol] 24.5 mmol/L Normal 22.0-26.0 [facility] Comment on above: Performed By: #### C BC #### [facility] [address] [place] [address] Dr. uDy James LPM 2 Normal [facility] Comment on above: Performed By: #### C BC #### [facility] [address] [address] [address] Duy James MINUTE VOLUME Normal [facility] Comment on above: Performed By: #### C BC #### [facility] [address] [place] [address] Dr. Duy James Oxygen (Bld) [Partial pressure] 64.3 mm[Hg] Critically low 80.0-100.0 [facility] Comment on above: Performed By: #### C BC #### [facility] [address] [place] [address] Dr. Duy James Oxygen saturation in Blood 92.0 % Critically low 95.0-100.0 [facility] Comment on above: Performed By: #### C BC #### [facility] [address] [place] [address] Dr. Duy James PCO2 45.3 mmHg Critically high 35.0-45.0 [facility] Comment on above: Performed By: #### C BC #### [facility] [address] [place] [address] Dr. Duy James PEEP [facility] Comment on above: Performed By: #### C BC #### [facility] [address] [place] [address] Dr. Duy James pH (Bld) 7.341 [pH] Critically low 7.350-7.450 [facility] Comment on above: Performed By: #### C BC #### [facility] [address] [place] [address] Dr. Duy James PIP [facility] Comment on above: Performed By: #### C BC #### [facility] [address] [place] [address] Dr. Duy James PS [facility] Comment on above: Performed By: #### C BC #### [facility] [address] [place] [address] Dr. Duy James PUNCTURE SITE LR [facility] Comment on above: Performed By: #### C BC #### [facility] [address] [place] [address] Dr. Duy James RATE [facility] Comment on above: Performed By: #### C BC #### [facility] [address] [place] [address] Dr. Duy James VENT MODE Normal [facility] Comment on above: Performed By: #### C BC #### [facility] [address] [place] [address] Dr. Duy James [facility] Comment on above: Performed By: #### C BC #### [facility] [address] [place] [address] Dr. Duy James BNPon 08-26-2022 Natriuretic peptide B (Bld) [Mass/Vol] 2516.0 pg/mL Critically high <=900.0 [facility] Comment on above: Performed By: #### B MP #### [facility] [address] [place] [address] Dr. Duy James CBC AUTO DIFFon 08-26-2022 BASO # 0.1 103/ul Normal 0.0-0.1 [facility] Comment on above: Performed By: #### C BC #### [facility] [address] [place] [address] Dr. Duy James Basophils/100 WBC (Bld) 1.2 % Normal 0.2-2.0 [facility] Comment on above: Performed By: #### C BC #### [facility] [address] [place] [address] Dr. Duy James EO # 0.4 103/ul Normal 0.0-0.7 [facility] Comment on above: Performed By: #### C BC #### [facility] [address] [place] [address] Dr. Duy James Eosinophils/100 WBC (Bld) 4.6 % Normal 0.9-7.0 [facility] Comment on above: Performed By: #### C BC #### [facility] [address] [place] [address] Dr. Duy James Erythrocyte distribution width (RBC) [Ratio] 13.2 % Normal 11.0-15.0 [facility] Comment on above: Performed By: #### C BC #### [facility] [address] [place] [address] Dr. Duy James Hematocrit (Bld) [Volume fraction] 41.1 % Critically low 42.0-54.0 [facility] Comment on above: Performed By: #### C BC #### [facility] [address] [place] [address] Dr. Duy James Hemoglobin (Bld) [Mass/Vol] 13.8 g/dL Critically low 14.0-18.0 [facility] Comment on above: Performed By: #### C BC #### [facility] [address] [place] [address] Dr. Duy James IG # 0.03 10e3/ul Normal 0.00-0.03 [facility] Comment on above: Performed By: #### C BC #### [facility] [address] [place] [address] Dr. Duy James IG % 0.4 % Normal 0.0-0.5 [facility] Comment on above: Performed By: #### C BC #### [facility] [address] [place] [address] Dr. Duy James LYMPH # 2.9 103/ul Normal 1.2-3.8 [facility] Comment on above: Performed By: #### C BC #### [facility] [address] [place] [address] Dr. Duy James Lymphocytes/100 WBC (Bld) 35.3 % Normal 20.5-60.0 [facility] Comment on above: Performed By: #### C BC #### [facility] [address] [place] [address] Dr. Duy James MANUAL DIFF REQ NO Normal [facility] Comment on above: Performed By: #### C BC #### [facility] [address] [place] [address] Dr. Duy James MCH (RBC) [Entitic mass] 28.9 pg Normal 25.9-34.0 [facility] Comment on above: Performed By: #### C BC #### [facility] [address] [place] [address] Dr. Duy James MCHC (RBC) [Mass/Vol] 33.6 g/dL Normal 29.9-35.2 [facility] Comment on above: Performed By: #### C BC #### [facility] [address] [place] [address] Dr. Duy James MCV (RBC) [Entitic vol] 86.2 fL Normal 80.0-94.0 [facility] Comment on above: Performed By: #### C BC #### [facility] [address] [place] [address] Dr. Dyu James MONO # 0.6 103/ul Normal 0.3-0.8 [facility] Comment on above: Performed By: #### C BC #### [facility] [address] [place] [address] Dr. Duy James Monocytes/100 WBC (Bld) 7.1 % Normal 1.7-12.0 [facility] Comment on above: Performed By: #### C BC #### [facility] [address] [place] [address] Dr. Duy James NEUT # 4.2 103/ul Normal 1.4-6.5 [facility] Comment on above: Performed By: #### C BC #### [facility] [address] [place] [address] Dr. Duy James Neutrophils/100 WBC (Bld) 51.4 % Normal 43.0-75.0 [facility] Comment on above: Performed By: #### C BC #### [facility] [address] [place] [address] Dr. Duy James Platelet mean volume (Bld) [Entitic vol] 10.1 fL Normal 9.5-13.5 [facility] Comment on above: Performed By: #### C BC #### [facility] [address] [place] [address] Dr. Duy James PLT 264 103/ul Normal 150-450 [facility] Comment on above: Performed By: #### C BC #### [facility] [address] [place] [address] Dr. Duy James RBC 4.77 106/ul Normal 4.70-6.10 [facility] Comment on above: Performed By: #### C BC #### [facility] [address] [place] [address] Dr. Duy James WBC 8.2 103/ul Normal 4.0-11.0 [facility] Comment on above: Performed By: #### C BC #### [facility] [address] [place] [address] Dr. Duy James CTA CHEST WO W [...] CODY WAY Date: 2022-08-26 20:19 Normal [facility] CULTURE BLOODon 08-26-2022 Microscopic examination of blood, culture Culture Observations: NO GROWTH AT 5 DAYS. Normal [facility] Comment on above: Performed By: #### B MP #### [facility] [address] [place] [address] Dr. Duy James Covid-19 PCR ([facility])on SARS-CoV-2 (COVID-19) RNA RICKY+probe Ql (Unsp spec) Not detected Normal NOT DETECTED [facility] Comment on above: Result Comment: [...] for this test is supported by the [place] of Health and Human Service's declaration that [...] used). Performed By: #### C BC #### [facility] [address] [place] [address] Dr. Duy James D-DIMERon 08-26-2022 D-DIMER 1.10 mg/L FEU Critically high <=0.59 [facility] Comment on above: Performed By: #### D DIM #### [facility] [address] [place] [address] Dr. Duy James D-DIMER COMMENTS SEE BELOW Normal [facility] Comment on above: Result Comment: Incr [...] hospitalization. Performed By: #### D DIM #### [facility] [address] [place] [address] Dr. Duy James INFLUENZA A AND B AGon 08-26 INFLUANEGH SEE BELOW Normal [facility] Comment on above: Result Comment: Nega tive for Flu A protein angiten. Infection due to Flu A cannot be ruled out. Flu A angiten in the sample may be below the detection limit of the test. Performed By: #### I NFLUAB #### [facility] [address] [place] [address] Dr. Duy James [facility] SEE BELOW Normal [facility] Comment on above: Result Comment: Nega tive for Flu B protein antigen. Infection due to Flu B cannot be ruled out. Flu B antigen in the sample may be below the detection limit of the test. Performed By: #### I NFLUAB #### [facility] [facility] [address] [place] [address] Dr. Duy James INFLUENZA A AG Negative Normal NEGATIVE SEE COMMENT [facility] Comment on above: Performed By: #### I NFLUAB #### [facility] [address] [place] [address] Dr. Duy James INFLUENZA B AG Negative Normal NEGATIVE SEE COMMENT [facility] Comment on above: Performed By: #### I NFLUAB #### [facility] [address] [place] [address] Dr. Duy James LACTATE/LACTIC ACIDon 2022 Lactate [Moles/Vol] 1.8 mmol/L Normal 0.4-1.9 [facility] Comment on above: Performed By: #### L ACT #### [facility] [address] [place] [address] Dr. Duy James PROF 14(COMP METB)on 023 Albumin [Mass/Vol] 3.7 g/dL Normal 3.4-5.0 [facility] Comment on above: Performed By: #### B DENTISTRY TEACHER, CMP, HSTROPN #### [facility] [address] [place] [address] Dr. Duy James Albumin/Globulin [Mass ratio] 1.0 {ratio} Normal [facility] Comment on above: Performed By: #### B DENTISTRY TEACHER, CMP, HSTROPN #### [facility] [address] [place] [address] Dr. Duy James ALP [Catalytic activity/Vol] 84 U/L Normal 46-116 [facility] Comment on above: Performed By: #### B DENTISTRY TEACHER, CMP, HSTROPN #### [facility] [address] [address] [address] Duy James ALT [Catalytic activity/Vol] 103 U/L Critically high 16-63 [facility] Comment on above: Performed By: #### B DENTISTRY TEACHER, CMP, HSTROPN #### [facility] [address] [address] [address] Duy James Anion gap [Moles/Vol] 15.5 mmol/L Normal [facility] Comment on above: Performed By: #### B DENTISTRY TEACHER, CMP, HSTROPN #### [facility] [address] [address] [address] Duy James AST [Catalytic activity/Vol] 62 U/L Critically high 15-37 [facility] Comment on above: Performed By: #### B DENTISTRY TEACHER, CMP, HSTROPN #### [facility] [address] [place] [address] Dr. Duy James Bilirubin [Mass/Vol] 0.3 mg/dL Normal 0.2-1.0 [facility] Comment on above: Performed By: #### B DENTISTRY TEACHER, CMP, HSTROPN #### [facility] [address] [address] [address] Duy James Calcium [Mass/Vol] 8.8 mg/dL Normal 8.5-10.1 [facility] Comment on above: Performed By: #### B DENTISTRY TEACHER, CMP, HSTROPN #### [facility] [address] [address] [address] Duy James Chloride [Moles/Vol] 106 mmol/L Normal 98-107 [facility] Comment on above: Performed By: #### B DENTISTRY TEACHER, CMP, HSTROPN #### [facility] [address] [address] [address] Duy James CO2 [Moles/Vol] 25.9 mmol/L Normal 21.0-32.0 [facility] Comment on above: Performed By: #### B DENTISTRY TEACHER, CMP, HSTROPN #### [facility] [address] [address] [address] Duy James Creatinine [Mass/Vol] 1.32 mg/dL Critically high 0.70-1.30 [facility] Comment on above: Performed By: #### B DENTISTRY TEACHER, CMP, HSTROPN #### [facility] [address] [address] [address] Duy James EGFR-AF FILIPINO >60 Normal >=60 [facility] Comment on above: Performed By: #### B DENTISTRY TEACHER, CMP, HSTROPN #### [facility] [address] [address] [address] Duy James EGFR-NON AF FILIPINO 54 mL/min/1.73m2 Critically low >=60 [facility] Comment on above: Performed By: #### B DENTISTRY TEACHER, CMP, HSTROPN #### [facility] [address] [place] [address] Dr. Duy James Globulin (S) [Mass/Vol] 3.6 g/dL Normal [facility] Comment on above: Performed By: #### B DENTISTRY TEACHER, CMP, HSTROPN #### [facility] [address] [place] [address] Dr. Duy James Glucose [Mass/Vol] 146 mg/dL Critically high 74-106 T [facility] Comment on above: Performed By: #### B DENTISTRY TEACHER, CMP, HSTROPN #### [facility] [address] [place] [address] Dr. Duy James Potassium [Moles/Vol] 4.4 mmol/L Normal 3.5-5.1 [facility] Comment on above: Performed By: #### B DENTISTRY TEACHER, CMP, HSTROPN #### [facility] [address] [place] [address] Dr. Duy Jaems Protein [Mass/Vol] 7.3 g/dL Normal 6.4-8.2 [facility] Comment on above: Performed By: #### B DENTISTRY TEACHER, CMP, HSTROPN #### [facility] [address] [place] [address] Dr. Duy James Sodium [Moles/Vol] 143 mmol/L Normal 136-145 [facility] Comment on above: Performed By: #### B DENTISTRY TEACHER, CMP, HSTROPN #### [facility] [address] [place] [address] Dr. Duy James Urea nitrogen [Mass/Vol] 15.0 mg/dL Normal 7.0-18.0 [facility] Comment on above: Performed By: #### B DENTISTRY TEACHER, CMP, HSTROPN #### [facility] [address] [place] [address] Dr. Duy James Urea nitrogen/Creatinine [Mass ratio] 11.4 mg/mg Normal [facility] Comment on above: Performed By: #### B DENTISTRY TEACHER, CMP, HSTROPN #### [facility] [address] [place] [address] Dr. Duy James TROPONIN, HIGH SENSITIVITYon 08-26-2022 HSTROP 41.1 pg/mL Normal 4.0-76.1 [facility] Comment on above: Result Comment: CUT- OFF POINTS HAVE BEEN ESTABLISHED BASED ON THE FOURTH UNIVERSAL DEFINITIONS OF MYOCARDIAL INFARCTION. THE UPPER REFERENCE LIMIT (URL) OF TROPONIN, DEFINED THE 99TH PERCENTILE OF cTnI DISTRIBUTION IN A REFERENCE POPULATION, HAS BEEN CONFIRMED THE DECISION THRESHOLD FOR TX DIAGNOSIS. Performed By: #### B MP #### [facility] [address] [place] [address] Dr. Duy James CBC AUTO DIFFon 05-18-2022 BASO # 0.1 103/ul Normal 0.0-0.1 [facility] Comment on above: Performed By: #### C BC #### [facility] [address] [place] [address] Dr. Duy James Basophils/100 WBC (Bld) 1.5 % Normal 0.2-2.0 [facility] Comment on above: Performed By: #### C BC #### [facility] [address] [place] [address] Dr. Duy James EO # 0.3 103/ul Normal 0.0-0.7 [facility] Comment on above: Performed By: #### C BC #### [facility] [address] [place] [address] Dr. Duy James Eosinophils/100 WBC (Bld) 4.7 % Normal 0.9-7.0 [facility] Comment on above: Performed By: #### C BC #### [facility] [address] [place] [address] Dr. Duy James Erythrocyte distribution width (RBC) [Ratio] 12.8 % Normal 11.0-15.0 [facility] Comment on above: Performed By: #### C BC #### [facility] [address] [place] [address] Dr. Duy James Hematocrit (Bld) [Volume fraction] 39.1 % Critically low 42.0-54.0 [facility] Comment on above: Performed By: #### C BC #### [facility] [address] [place] [address] Dr. Duy James Hemoglobin (Bld) [Mass/Vol] 13.2 g/dL Critically low 14.0-18.0 [facility] Comment on above: Performed By: #### C BC #### [facility] [address] [place] [address] Dr. Duy James IG # 0.03 10e3/ul Normal 0.00-0.03 [facility] Comment on above: Performed By: #### C BC #### [facility] [address] [place] [address] Dr. Duy James IG % 0.5 % Normal 0.0-0.5 [facility] Comment on above: Performed By: #### C BC #### [facility] [address] [place] [address] Dr. Duy James LYMPH # 1.4 103/ul Normal 1.2-3.8 [facility] Comment on above: Performed By: #### C BC #### [facility] [address] [place] [address] Dr. Duy James Lymphocytes/100 WBC (Bld) 23.8 % Normal 20.5-60.0 [facility] Comment on above: Performed By: #### C BC #### [facility] [address] [place] [address] Dr. Duy James MANUAL DIFF REQ NO Normal [facility] Comment on above: Performed By: #### C BC #### [facility] [address] [address] [address] Duy James MCH (RBC) [Entitic mass] 28.8 pg Normal 25.9-34.0 [facility] Comment on above: Performed By: #### C BC #### [facility] [address] [address] [address] Duy James MCHC (RBC) [Mass/Vol] 33.8 g/dL Normal 29.9-35.2 [facility] Comment on above: Performed By: #### C BC #### [facility] [address] [place] [address] Dr. Duy James MCV (RBC) [Entitic vol] 85.2 fL Normal 80.0-94.0 [facility] Comment on above: Performed By: #### C BC #### [facility] [address] [place] [address] Dr. Duy James MONO # 0.5 103/ul Normal 0.3-0.8 [facility] Comment on above: Performed By: #### C BC #### [facility] [address] [place] [address] Dr. Duy James Monocytes/100 WBC (Bld) 7.8 % Normal 1.7-12.0 [facility] Comment on above: Performed By: #### C BC #### [facility] [address] [place] [address] Dr. Duy James NEUT # 3.7 103/ul Normal 1.4-6.5 [facility] Comment on above: Performed By: #### C BC #### [facility] [address] [place] [address] Dr. Duy James Neutrophils/100 WBC (Bld) 61.7 % Normal 43.0-75.0 [facility] Comment on above: Performed By: #### C BC #### [facility] [address] [place] [address] Dr. Duy James Platelet mean volume (Bld) [Entitic vol] 9.6 fL Normal 9.5-13.5 [facility] Comment on above: Performed By: #### C BC #### [facility] [address] [place] [address] Dr. Duy James PLT 199 103/ul Normal 150-450 [facility] Comment on above: Performed By: #### C BC #### [facility] [address] [place] [address] Dr. Duy James RBC 4.59 106/ul Critically low 4.70-6.10 [facility] Comment on above: Performed By: #### C BC #### [facility] [address] [place] [address] Dr. Duy James WBC 6.0 103/ul Normal 4.0-11.0 [facility] Comment on above: Performed By: #### C BC #### [facility] [address] [place] [address] Dr. Duy James METHYLMALONIC ACID (MMA)on 0 03-03-2022 Methylmalonic Acid, Serum 232 nmol/L Normal 0-378 [facility] Comment on above: Performed By: #### M MA2 #### [facility] [address] [place] [address] Dr. Duy James CBC AUTO DIFFon 02-25-2022 BASO # 0.1 103/ul Normal 0.0-0.1 [facility] Comment on above: Performed By: #### C BC #### [facility] [address] [place] [address] Dr. Duy James Basophils/100 WBC (Bld) 1.3 % Normal 0.2-2.0 [facility] Comment on above: Performed By: #### C BC #### [facility] [address] [place] [address] Dr. Duy James EO # 0.2 103/ul Normal 0.0-0.7 [facility] Comment on above: Performed By: #### C BC #### [facility] [address] [place] [address] Dr. Duy James Eosinophils/100 WBC (Bld) 4.8 % Normal 0.9-7.0 [facility] Comment on above: Performed By: #### C BC #### [facility] [address] [place] [address] Dr. Duy James Erythrocyte distribution width (RBC) [Ratio] 13.9 % Normal 11.0-15.0 [facility] Comment on above: Performed By: #### C BC #### [facility] [address] [place] [address] Dr. Duy James Hematocrit (Bld) [Volume fraction] 36.2 % Critically low 42.0-54.0 [facility] Comment on above: Performed By: #### C BC #### [facility] [address] [place] [address] Dr. Duy James Hemoglobin (Bld) [Mass/Vol] 12.2 g/dL Critically low 14.0-18.0 [facility] Comment on above: Performed By: #### C BC #### [facility] [address] [place] [address] Dr. Duy James IG # 0.01 10e3/ul Normal 0.00-0.03 [facility] Comment on above: Performed By: #### C BC #### [facility] [address] [place] [address] Dr. Duy James IG % 0.2 % Normal 0.0-0.5 [facility] Comment on above: Performed By: #### C BC #### [facility] [address] [place] [address] Dr. Duy James LYMPH # 1.3 103/ul Normal 1.2-3.8 [facility] Comment on above: Performed By: #### C BC #### [facility] [address] [place] [address] Dr. Duy James Lymphocytes/100 WBC (Bld) 29.3 % Normal 20.5-60.0 [facility] Comment on above: Performed By: #### C BC #### [facility] [address] [place] [address] Dr. Duy James MANUAL DIFF REQ NO Normal [facility] Comment on above: Performed By: #### C BC #### [facility] [address] [address] [address] Duy James MCH (RBC) [Entitic mass] 29.5 pg Normal 25.9-34.0 [facility] Comment on above: Performed By: #### C BC #### [facility] [address] [place] [address] Dr. Duy James MCHC (RBC) [Mass/Vol] 33.7 g/dL Normal 29.9-35.2 [facility] Comment on above: Performed By: #### C BC #### [facility] [address] [place] [address] Dr. Duy James MCV (RBC) [Entitic vol] 87.7 fL Normal 80.0-94.0 [facility] Comment on above: Performed By: #### C BC #### [facility] [address] [place] [address] Dr. Duy James MONO # 0.4 103/ul Normal 0.3-0.8 [facility] Comment on above: Performed By: #### C BC #### [facility] [address] [place] [address] Dr. Duy James Monocytes/100 WBC (Bld) 9.4 % Normal 1.7-12.0 [facility] Comment on above: Performed By: #### C BC #### [facility] [address] [place] [address] Dr. Duy James NEUT # 2.5 103/ul Normal 1.4-6.5 [facility] Comment on above: Performed By: #### C BC #### [facility] [address] [place] [address] Dr. Duy James Neutrophils/100 WBC (Bld) 55.0 % Normal 43.0-75.0 [facility] Comment on above: Performed By: #### C BC #### [facility] [address] [place] [address] Dr. Duy James Platelet mean volume (Bld) [Entitic vol] 9.4 fL Critically low 9.5-13.5 [facility] Comment on above: Performed By: #### C BC #### [facility] [address] [address] [address] Duy James PLT 142 103/ul Critically low 150-450 [facility] Comment on above: Performed By: #### C BC #### [facility] [address] [address] [address] Duy James RBC 4.13 106/ul Critically low 4.70-6.10 [facility] Comment on above: Performed By: #### C BC #### [facility] [address] [place] [address] Dr. Duy James WBC 4.6 103/ul Normal 4.0-11.0 [facility] Comment on above: Performed By: #### C BC #### [facility] [address] [place] [address] Dr. Duy James FERRITINon 02-25-2022 Ferritin [Mass/Vol] 274.0 ng/mL Normal 26.0-388.0 [facility] Comment on above: Performed By: #### C BC #### [facility] [address] [place] [address] Dr. Duy James IRON AND TIBCon 02-25-2022 % SATURATION 33.8 % Normal [facility] Comment on above: Performed By: #### C BC #### [facility] [address] [place] [address] Dr. Duy James Iron [Mass/Vol] 97.0 ug/dL Normal 65.0-175.0 [facility] Comment on above: Performed By: #### C BC #### [facility] [address] [place] [address] Dr. Duy James TIBC DIRECT 287.0 ug/dL Normal 250.0-450.0 [facility] Comment on above: Performed By: #### C BC #### [facility] [address] [place] [address] Dr. Duy James VIT B12 AND FOLATEon 022 Cobalamin (Vitamin B12) [Mass/Vol] 817.0 pg/mL Normal 193.0-986.0 [facility] Comment on above: Performed By: #### C BC #### [facility] [address], [place] [address] Dr. Duy James FOLATE 16.90 ng/mL Normal 8.60-58.90 [facility] Comment on above: Performed By: #### C BC #### [facility] [address], [place] [address] Dr. Duy James XR CHEST 2 Von [...] by: ALEXA MCKENZIE Date: 2021-12-28 13:59 Normal [facility] COVID Quick Testingon 2021 Result Negative [facility] Flu[facility] 08-07-2021 FLUAV Ab CF (S) [Titer] Negative [facility] Other FLUBV Ab CF (S) [Titer] Negative [facility] Other COVID Quick Testingon 2020 Result Positive [facility] [employer] Other Vital Signs Date Time Vital Sign Value Performing Clinician Facility 02-29-2024 09:55-0400 Body height 177.8 cm [facility] 02-29-2024 09:55-0400 Body mass index (BMI) [Ratio] 33.7 kg/m2 [facility] 02-29-2024 09:55-0400 Body weight 106.65 kg [facility] 02-29-2024 09:55-0400 Diastolic blood pressure 65 mm[Hg] [facility] 02-29-2024 09:55-0400 Heart rate 67 /min [facility] 02-29-2024 09:55-0400 Respiratory rate 12 /min [facility] 02-29-2024 09:55-0400 Systolic blood pressure 151 mm[Hg] [facility] 12-25-2023 07:50-0400 Diastolic blood pressure 66 mm[Hg] Meghan Lue [facility] 12-25-2023 07:50-0400 Heart rate 57 /min Meghan Lue [facility] 12-25-2023 07:50-0400 Mean blood pressure 91 mm[Hg] Meghan Lue [facility] 12-25-2023 07:50-0400 Systolic blood pressure 143 mm[Hg] Meghan Lue [facility] 12-25-2023 07:49-0400 Heart rate 62 /min Meghan Lue [facility] 12-25-2023 07:49-0400 SaO2% (BldA) [Mass fraction] 98 % Meghan Lue [facility] 12-25-2023 07:48-0400 Body temperature 98.06 [degF] Meghan Lue [facility] 12-25-2023 07:48-0400 Blood Pressure Location Meghan Lue [facility] 12-25-2023 07:48-0400 Diastolic blood pressure 61 mm[Hg] Meghan Lue [facility] 12-25-2023 07:48-0400 Mean blood pressure 95 mm[Hg] Meghan Lue [facility] 12-25-2023 07:48-0400 Systolic blood pressure 164 mm[Hg] Meghan Lue [facility] 12-25-2023 07:48-0400 Respiratory rate 16 /min Meghan Lue [facility] 11-29-2023 10:55-0400 Blood Pressure Location Meghan Lue [facility] [place] [facility] 11-29-2023 10:55-0400 Diastolic blood pressure 74 mm[Hg] Meghan Lue [facility] [place] [facility] 11-29-2023 10:55-0400 Heart rate 68 /min Meghan Lue [facility] [place] [facility] 11-29-2023 10:55-0400 Respiratory rate 16 /min Meghan Lue [facility] [place] [facility] 11-29-2023 10:55-0400 Systolic blood pressure 163 mm[Hg] Meghan Lue [facility] [place] [facility] 11-28-2023 08:42-0400 Body height 177.8 cm [facility] 11-28-2023 08:42-0400 Body mass index (BMI) [Ratio] 33.2 kg/m2 [facility] 11-28-2023 08:42-0400 Body weight 105 kg [facility] 11-28-2023 08:42-0400 Diastolic blood pressure 80 mm[Hg] [facility] 11-28-2023 08:42-0400 Heart rate 64 /min [facility] 11-28-2023 08:42-0400 Respiratory rate 12 /min [facility] 11-28-2023 08:42-0400 Systolic blood pressure 188 mm[Hg] [facility] 06-16-2023 10:00-0500 Diastolic blood pressure 92 mm[Hg] Meghan Lue [facility] 06-16-2023 10:00-0500 Mean blood pressure 115 mm[Hg] Meghan Lue [facility] 06-16-2023 10:00-0500 Systolic blood pressure 162 mm[Hg] Meghan Lue [facility] 06-16-2023 09:44-0500 Blood Pressure Location Meghan Lue [facility] 06-16-2023 09:44-0500 Body temperature 97.16 [degF] Meghan Lue [facility] 06-16-2023 09:44-0500 Diastolic blood pressure 88 mm[Hg] Meghan Lue [facility] 06-16-2023 09:44-0500 Heart rate 78 /min Meghan Lue [facility] 06-16-2023 09:44-0500 Systolic blood pressure 144 mm[Hg] Meghan Lue [facility] 06-06-2023 17:10-0500 Diastolic blood pressure 70 mm[Hg] Meghan Lue [facility] 06-06-2023 17:10-0500 Heart rate 60 /min Meghan Lue [facility] 06-06-2023 17:10-0500 Respiratory rate 16 /min Meghan Lue [facility] 06-06-2023 17:10-0500 SaO2% (BldA) [Mass fraction] 100 % Meghan Lue [facility] 06-06-2023 17:10-0500 Systolic blood pressure 120 mm[Hg] Meghan Lue [facility] 06-06-2023 17:02-0500 Heart rate 62 /min Meghan Lue [facility] 06-06-2023 17:02-0500 SaO2% (BldA) [Mass fraction] 100 % Meghan Lue [facility] 06-06-2023 17:02-0500 Respiratory rate 16 /min Meghan Lue [facility] 06-06-2023 16:52-0500 Diastolic blood pressure 56 mm[Hg] Meghan Lue [facility] 06-06-2023 16:52-0500 Heart rate 60 /min Meghan Lue [facility] 06-06-2023 16:52-0500 SaO2% (BldA) [Mass fraction] 97 % Meghan Lue [facility] 06-06-2023 16:52-0500 Systolic blood pressure 89 mm[Hg] Meghan Lue [facility] 06-06-2023 16:29-0500 Diastolic blood pressure 89 mm[Hg] Meghan Lue [facility] 06-06-2023 16:29-0500 Systolic blood pressure 154 mm[Hg] Meghan Lue [facility] 06-06-2023 14:00-0500 Blood Pressure Location Meghan Lue [facility] 06-06-2023 14:00-0500 Mean blood pressure 84 mm[Hg] Meghan Lue [facility] 06-06-2023 14:00-0500 Respiratory rate 18 /min Meghan Lue [facility] 05-10-2023 10:54-0500 Blood Pressure Location Meghan Lue [facility] [place] [facility] 05-10-2023 10:54-0500 Diastolic blood pressure 76 mm[Hg] Meghan Lue [facility] [place] [facility] 05-10-2023 10:54-0500 Heart rate 68 /min Meghan Lue [facility] [place] [facility] 05-10-2023 10:54-0500 Respiratory rate 16 /min Meghan Lue [facility] [place] [facility] 05-10-2023 10:54-0500 Systolic blood pressure 132 mm[Hg] Meghan Lue [facility] [place] [facility] 04-11-2023 11:40-0400 Blood Pressure Location THERESA FLAKO [facility] 04-11-2023 11:40-0400 Diastolic blood pressure 75 mm[Hg] THERESA FLAKO [facility] 04-11-2023 11:40-0400 Heart rate 68 /min THERESA FLAKO [facility] 04-11-2023 11:40-0400 Respiratory rate 16 /min THERESA FLAKO [facility] 04-11-2023 11:40-0400 Systolic blood pressure 134 mm[Hg] THERESA FLAKO [facility] 12-20-2022 10:11-0400 Blood Pressure Location THERESA FLAKO [facility] [place] [facility] 12-20-2022 10:11-0400 Diastolic blood pressure 80 mm[Hg] THERESA FLAKO [facility] [place] [facility] 10:11-0400 Heart rate 70 /min THERESA FLAKO [facility] 12-20-2022 10:11-0400 Respiratory rate 16 /min THERESA FLAKO [facility] 12-20-2022 10:11-0400 Systolic blood pressure 140 mm[Hg] THERESA FLAKO [facility] 11-23-2022 08:30-0400 Body height 177.8 cm Gio Ball Other [facility] Other 11-23-2022 08:30-0400 Body mass index (BMI) [Ratio] 32.42 kg/m2 Gio Ball Other [facility] Other 11-23-2022 08:30-0400 Body weight 102.51 kg Gio Ball Other [facility] Other 11-23-2022 08:30-0400 Diastolic blood pressure 69 mm[Hg] Gio Ball Other [facility] Other 11-23-2022 08:30-0400 Respiratory rate 12 /min Gio Ball Other [facility] Other 11-23-2022 08:30-0400 Systolic blood pressure 162 mm[Hg] Gio Ball Other [facility] Other 08-31-2022 10:00-0500 Body height 177.8 cm Gio Ball Other [facility] Other 03-08-2023 10:00-0500 Body mass index (BMI) [Ratio] 33.43 kg/m2 Intrakr Other [facility] Other 08-31-2022 10:00-0500 Body weight 105.69 kg Gio Ball Other [facility] Other 08-31-2022 10:00-0500 Diastolic blood pressure 80 mm[Hg] Gio Arria NLG Other [facility] Other 08-31-2022 10:00-0500 Respiratory rate 16 /min Intrakr Other [facility] Other 08-31-2022 10:00-0500 SaO2% (BldA) [Mass fraction] 98 % Gio Arria NLG Other [facility] Other 08-31-2022 10:00-0500 Systolic blood pressure 132 mm[Hg] Gio Arria NLG Other [facility] Other 10-26-2021 09:11-0400 Blood Pressure Location Daniel Kern Jr. [facility] 10-26-2021 09:11-0400 Diastolic blood pressure 77 mm[Hg] Daniel Kern Jr. [facility] 10-26-2021 09:11-0400 Heart rate 78 /min Daniel Kern Jr. [facility] 10-26-2021 09:11-0400 Respiratory rate 16 /min Daniel Kern Jr. [facility] 10-26-2021 09:11-0400 Systolic blood pressure 181 mm[Hg] Daniel Erlin Alonso [facility] 08-07-2021 11:00-0500 Body height 177.8 cm Gina Starks Other [facility] Other 08-07-2021 11:00-0500 Body mass index (BMI) [Ratio] 30.13 kg/m2 Gina Starks Other [facility] Other 08-07-2021 11:00-0500 Body temperature 101 [degF] Gina Starks Other [facility] Other 08-07-2021 11:00-0500 Body weight 95.26 kg Gina Starks Other [facility] Other 08-07-2021 11:00-0500 Respiratory rate 18 /min Gina Starks Other [facility] Other 08-07-2021 11:00-0500 SaO2% (BldA) [Mass fraction] 97 % Gina Starks Other [facility] Other 05-24-2021 18:15-0500 Body height 177.8 cm Sybil Lee Other [facility] Other 05-24-2021 18:15-0500 Body mass index (BMI) [Ratio] 30.85 kg/m2 Sybil Lee Other [facility] Other 05-24-2021 18:15-0500 Body temperature 96.9 [degF] Sybil Lee Other [facility] Other 05-24-2021 18:15-0500 Body weight 97.52 kg Sybil Lee Other [facility] Other 05-24-2021 18:15-0500 SaO2% (BldA) [Mass fraction] 91 % Sybil Lee Other [facility] Other Encounters Encounter Date Encounter Type Care Provider Facility Start: 03-06-2024 ambulatory Meghan Brito Facility:[facility] Start: 02-29-2024 End: 02-29-2024 ambulatory [facility] Work Phone: Start: 02-29-2024 End: 02-29-2024 Patient encounter procedure [facility] Work Phone: Start: 02-22-2024 Non-patient / Non-visit [facility] [employer] Work Phone: Start: 02-12-2024 End: 02-12-2024 ambulatory [facility] Start: 02-12-2024 End: 02-12-2024 Encounter for other preprocedural examination [facility] Start: 01-12-2024 ambulatory Meghan Brito Facility:[facility] Start: 01-03-2024 Encounter for other preprocedural examination [facility] Start: 01-03-2024 End: 01-03-2024 ambulatory [facility] Start: 12-25-2023 End: 12-25-2023 ambulatory Meghan MReinier Brito Facility[place] Start: 12-25-2023 End: 12-25-2023 Patient encounter procedure Meghan Brito [facility] Start: 11-29-2023 End: 01-03-2024 Pre-admission assessment Meghan M. Charismae [facility] Start: 11-29-2023 End: 11-29-2023 ambulatory Meghan M. Lue Facility:[facility] Start: 11-29-2023 End: 11-29-2023 Patient encounter procedure Meghan Bernstein. Charismae [facility] Start: 11-28-2023 End: 11-28-2023 ambulatory [facility] Work Phone: Start: 11-28-2023 End: 11-28-2023 Encounter for general adult medical examination without abnormal findings [facility] Start: 11-28-2023 End: 11-28-2023 Patient encounter procedure [facility] Work Phone: Start: 11-24-2023 Non-patient / Non-visit [facility] Work Phone: Start: 07-31-2023 End: 07-31-2023 ambulatory Meghan M. Lue Facility:[facility] Start: 07-31-2023 End: 07-31-2023 Patient encounter procedure Meghan Bernstein. Charismae [facility] Start: 06-30-2023 End: 06-30-2023 ambulatory Meghan M. Lue Facility:[facility] Start: 06-30-2023 End: 06-30-2023 Lab Drop off Meghan M. Lue [facility] Start: 06-30-2023 End: 06-30-2023 ambulatory Meghan M. Lue Facility: [facility] Start: 06-30-2023 End: 06-30-2023 Patient encounter procedure Meghan M. Lue [facility] [place] Start: 06-22-2023 End: 06-22-2023 ambulatory Gio Cavanaugh Other [facility] Other Start: 06-22-2023 Telephone encounter Gio Cavanaugh [facility] Start: 06-21-2023 Telephone encounter Gio BRITTON [facility] Start: 06-21-2023 End: 06-21-2023 ambulatory Meghan M. Charismae [facility] Other Start: 06-21-2023 End: 06-21-2023 Patient encounter procedure Meghan M. Charismae [facility] Start: 06-20-2023 End: 06-20-2023 ambulatory Gio Cavanaugh Other [facility] Other Start: 06-20-2023 Telephone encounter Gio BRITTON [facility] Start: 06-18-2023 End: 06-18-2023 ambulatory Gio Cavanaugh Other [facility] Other Start: 06-18-2023 Telephone encounter Gio BRITTON [facility] Start: 06-16-2023 End: 06-16-2023 ambulatory Meghan M. Lue Facility: [place] Start: 06-16-2023 End: 06-16-2023 Patient encounter procedure Meghan M. Lue [facility] [place] Start: 06-15-2023 End: 06-15-2023 ambulatory Meghan M. Lue Facility: [place] Start: 06-15-2023 End: 06-15-2023 Patient encounter procedure Meghan M. Lue [facility] [place] Start: 06-14-2023 End: 06-14-2023 ambulatory Meghan Tucker Lue Facility:[facility] [place] Start: 06-14-2023 End: 06-14-2023 Patient encounter procedure Meghan Brito [facility] Start: 06-06-2023 End: 06-07-2023 ambulatory DUY JAMES MD Facility:[id number] Start: 06-06-2023 End: 06-06-2023 Admission to same day surgery center Meghan Brito [facility] Start: 06-06-2023 End: 06-06-2023 ambulatory Meghan Brito Facility:[facility] Start: 06-05-2023 End: 06-05-2023 ambulatory Gio Cavanaugh Other [facility] Other Start: 06-05-2023 Telephone encounter Gio BRITTON [facility] Start: 05-10-2023 End: 05-10-2023 ambulatory Meghan M. Lue Facility:[facility] Start: 05-10-2023 End: 05-10-2023 Patient encounter procedure Meghan Brito [facility] Start: 04-28-2023 ambulatory Meghan M. Lue Facility:[facility] Start: 04-27-2023 End: 04-27-2023 ambulatory Gio Cavanaugh Other [facility] Other Start: 04-27-2023 Telephone encounter Gio BRITTON [facility] Start: 04-11-2023 End: 04-11-2023 ambulatory THERESA FLEMING Facility:[facility] [place] Start: 04-11-2023 End: 04-11-2023 Patient encounter procedure THERESA FLEMING [facility] Start: 04-04-2023 End: 04-04-2023 ambulatory Gio Mao Other [facility] Other Start: 04-04-2023 Telephone encounter Gio BRITTON [facility] Start: 04-03-2023 End: 04-03-2023 ambulatory Theresa Fleming Facility:[facility] Start: 04-03-2023 End: 04-03-2023 ambulatory DO Gio Cavanaugh Work Phone: [facility] Work Phone: Start: 04-03-2023 End: 04-03-2023 Patient encounter procedure DO Gio Mao Work Phone: [facility] [place] Work Phone: Start: 12-20-2022 End: 12-20-2022 Patient encounter procedure THERESA FLEMING [facility] Start: 12-13-2022 End: 12-13-2022 ambulatory Gio Cavanaugh Other [facility] Other Start: 12-13-2022 Telephone encounter Gio Cavanaugh FP [facility] Start: 12-12-2022 End: 12-12-2022 ambulatory Gio Cavanaugh Other [facility] Other Start: 12-12-2022 Telephone encounter Gio Cavanaugh [facility] Start: 11-23-2022 End: 11-23-2022 ambulatory Gio Cavanaugh Other [facility] Other Start: 11-23-2022 Encounter for genera l adult medical examination without abnormal findings Gio Cavanaugh [facility] Start: 11-23-2022 Periodic preventive med est patient 65yrs& older Gio Cavanaugh [facility] Start: 11-07-2022 End: 11-08-[address] GIO CAVANAUGH Facility:[facility] Start: 08-31-2022 End: 08-31-2022 ambulatory Gio Cavanaugh Other [facility] Other Start: 08-31-2022 Office outpatient vi sit 25 minutes Gio Cavanaugh [facility] Start: 08-26-2022 End: 08-28-2022 Evaluation and management of inpatient DR DARIUS GIANG . Facility:[facility] Start: 05-18-2022 End: 05-19-[address] GIO CAVANAUGH Facility:[facility] Start: 02-25-2022 End: 02-26-[address] GIO CAVANAUGH Facility:[facility] Start: 01-07-[address] GIO CAVANAUGH Facili ty:[facility] Start: 12-28-2021 End: 12-29-[address] GIO CAVANAUGH Facility:[facility] Start: 11-18-2021 Adult health examination Joseph jacqueline Cavanaugh Other [facility] Other Start: 10-26-2021 End: 10-26-2021 Patient encounter procedure Daniel Kern Jr. [facility] Start: 08-07-2021 End: 08-07-2021 ambulatory Gina Starks Other [facility] Other Start: 08-07-2021 Office outpatient vi sit 15 minutes Gina Starks [facility] Start: 05-24-2021 End: 05-24-2021 ambulatory Sybil Lee Other [facility] Other Start: 05-24-2021 Office outpatient vi sit 15 minutes Sybilsofía Lee [facility] Procedures Date Procedure Procedure Detail Performing Clinician Start: 07-27-2023 Cystoscopy Meghan Brito Start: 06-06-2023 Prostate biopsy samlan le (specimen) Meghan Brito Start: 04-03-2023 MR prostate [...] of Treatment Date Care Activity Detail Author [facility] Immunizations Immunization Date Immunization Notes Care Provider Renetta thacker 05-25-2023 influenza virus vaccine, unspecified formulation [facility] 05-25-2023 influenza, high dose seasonal, preservative-free Gio Cavanaugh Other [facility] Other 05-25-2023 pneumococcal polysaccharide vaccine, 23 valent Gio Cavanaugh Other [facility] 02-24-2022 influenza virus vaccine, unspecified formulation THERESABESSY FLEMING [facility] 02-24-2022 influenza, high dose seasonal, preservative-free Gio Cavanaugh Other [facility] Other 11-18-2021 pneumococcal conjuga te vaccine, 13 valent Gio Cavanaugh Other [facility] 09-01-2021 COVID-19 Vaccine Moderna - Documentation Purposes Only Gio Cavanaugh Other [facility] 06-26-2021 pneumococcal conjuga te vaccine, 13 valent Gio Cavanaugh Other [facility] 09-02-2020 SARS-CoV-2 (COVID-19 ) Ad26 vaccine, recombinant [facility]ern Jr. [facility] 05-03-2019 influenza virus vaccine, split virus (incl. purified surface antigen) Gio Cavanaugh Other [facility] Other 05-03-2019 influenza virus vaccine, unspecified formulation [facility] 05-09-2018 influenza virus vaccine, split virus (incl. purified surface antigen) Gio Cavanaugh Other [facility] Other 05-09-2018 influenza virus vaccine, unspecified formulation [facility] Payers Date Payer Category Payer Unknown [id number] 2023 Medicare [id number] 2023 Medicare [id number] 1959 Self-pay 1959 Unknown [id number] 1956 Unknown [id number] 2.16.84 0.1.684906.3.579.2.593 1956 Unknown [id number] 2.16.84 0.1.859415.3.579.2.593 1956 Unknown [id number] 2.16.84 0.1.347762.3.579.2.593 1956 Unknown [id number] 2.16.84 0.1.944972.3.579.2.593 1956 Unknown [id number] 2.16.84 0.1.912819.3.579.2.593 1956 Unknown [id number] 2.16.84 0.1.070353.3.579.2.593 1956 Unknown [id number] 2.16.8 40.1.042237.3.579.2.159 1956 Unknown [id number] 2.16.8 40.1.177190.3.579.2.727 1956 Unknown [id number] 2.16.8 40.1.772562.3.579.2.727 1956 Unknown [id number] 2.16.8 40.1.328248.3.579.2.727 1956 Unknown [id number] 2.16.8 40.1.334539.3.579.2.727 1956 Unknown [id number] 2.16.8 40.1.734639.3.579.2.727 1956 Unknown [id number] 2.16.8 40.1.674510.3.579.2.727 1956 Unknown [id number] 2.16.8 40.1.556060.3.579.2.727 1956 Unknown [id number] 2.16.8 40.1.971593.3.579.2.727 1956 Unknown [id number] 2.16.8 40.1.390728.3.579.2.727 1956 Unknown [id number] 2.16.8 40.1.497388.3.579.2.727 1956 Unknown [id number] 2.16.8 40.1.965831.3.579.2.727 1956 Unknown [id number] 2.16.8 40.1.943376.3.579.2.727 1956 Unknown [id number] 2.16.8 40.1.386303.3.579.2.727 1956 Unknown [id number] 2.16.8 40.1.868867.3.579.2.727 Medicare Private Health Insurance Unknown [id number] 2.16.8 40.1.041368.3.579.2.531 Social History Date Type Detail Facility Start: 10-26-2021 Tobacco smoking status Heavy t obacco smoker (finding) [facility] Other Sex Assigned At Male [facility] Other Start: 12-20-2022 End: 05-10-2023 Tobacco smoking status Ex-smoker (finding) [facility] Start: 06-16-2023 End: 11-29-2023 Tobacco smoking status Never [facility] Start: 12-16-2020 Tobacco smoking stat [facility] Smoker (finding) [facility] Start: 1955 Sex Assigned At Male [facility] Functional Status Date Assessment Result Facility 12-25-2023 Functional Status No [facility] 11-29-2023 Functional Status N/A [facility] 07-31-2023 Functional Status N/A [facility] 06-16-2023 Functional Status N/A [facility] 05-16-2023 Functional Status N/A [facility] 05-10-2023 Functional Status N/A [facility] 04-11-2023 Functional Status N/A [facility] 12-20-2022 Functional Status N/A [facility] Clinical Notes 05-24-2021 to 02-12-2024 Note Date & Type Note Facility 02-12-2024 Note [facility] Note Reason for cardiology [...] , Rfl: Last Recorded Vitals Visit Vitals BP 162/67 (BP Location: Right arm, Patient Position: Sitting) Pulse 68 Ht 1.753 m (5' 9 ) Wt 107 kg (236 lb) SpO2 97% BMI 34.85 kg/m??? Smoking Status Former BSA 2.28 m??? Physical Examination: GENERAL: alert and oriented x3, [...] for perioperative cardiac events. I asked the patien (more content not included)... [facility] 01-03-2024 Note [facility] Note Reason for cardiology [...] mother had diabetes mellitus. His father had [place] at age of 50. Many siblings with [...] Follow-up with me in 3 weeks Glenna Lakhani MD, [facility] 12-13-2023 Note [id number] [facility] 11-29-2023 Hospital Discharge instructions Patient Education [...] Follow these instructions at home: Medicines Take kgct-isc-pkfdhjq and prescription medicines only as told by [...] to keep your urine pale yellow. Take sxnp-lau-mbtmaur or prescription medicines. Eat foods that are [...] provider. Document Revised: 03/08/2022 Document Reviewed: 03/08/2022 [email or web address] Patient Education 2022 [employer] 11/29/2023 11:20:13 Transurethral Resection of the Prostate [...] including vitamins, herbs, eye drops, creams, and jril-dto-ugxsbsj medicines. Any problems you or family members [...] provider tells you to take them. Taking hinh-vcv-waegzcx medicines, vitamins, herbs, and supplements. Surgery safety [...] provider. Document Revised: 03/08/2022 Document Reviewed: 03/08/2022 [email or web address] Patient Education 2022 [email or web address] Follow Up Care 08/02/2023 09:34:46 With:Daryl HAMILTON, LOGAN Villalpando, URO Address: [address] [place] [phone] When: Unknown [facility] 07-31-2023 Evaluation + Plan note Extrac rina from: Title: - [facility] HOPD Note Author:Daryl HAMILTON, Meghan Bernstein. Date:07/31/23 Impression and Plan Assessment and Plan: Diagnosis: BPH with urinary obstruction (WRV49-WI N40.1, Discharge, Medical), Pelvic lymphadenopathy (NPL04-NK R59.0, Working, Medical), Chronic prostatitis (OKJ30-SU N41.1, Discharge, Medical), Feeling of incomplete bladder emptying (NWN59-PG R39.14, Discharge, Medical), Gross hematuria (ICD10- CM R31.0, Discharge, Medical). Assessment and Plan: Diagnosis: BPH with urinary obstruction (XML07-JK N40.1, Discharge, Medical), Chronic prostatitis (IRZ10-MF N41.1, Discharge, Medical), Feeling of incomplete bladder emptying (CHQ64-NR R39.14, Discharge, Medical), Gross hematuria (YKY31-UH R31.0, Discharge, Medical), Pelvic lymphadenopathy (OCL02-AU R59.0, Working, Medical). 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 Gross hematuria - after [facility]U 07/05/23 at [facility] - neg for upper tract filling [...] in 4 to 5 months with P[facility]02-05-2024 Hospital Discharge instructions Patient Education 07/31/2023 09:05:54 [...] including vitamins, herbs, eye drops, creams, and luoe-fpu-uuhjnlz medicines. Any problems you or family members [...] provider tells you to take them. ?Taking vnfi-mkr-xwycsxb medicines, vitamins, herbs, and supplements. Follow your [...] provider. Document Revised: 09/08/2021 Document Reviewed: 09/08/2021 [email or web address] Patient Education 2022 [employer]. 07/31/2023 09:05:54 Transurethral Resection of the Prostate [...] including vitamins, herbs, eye drops, creams, and xyho-xbn-cvwscfg medicines. Any problems you or family members [...] provider tells you to take them. Taking ludd-oxl-gyfrcop medicines, vitamins, herbs, and supplements. Surgery safety [...] provider. Document Revised: 03/08/2022 Document Reviewed: 03/08/2022 [email or web address] Patient Education 2022 [employer]. 07/31/2023 09:05:54 [facility] - Cystoscopy Discharge Instructions [...] Up Care 06/30/2023 10:04:12 With:Meghan Brito Address: [address] [place] [phone]- [phone] Business (1) When: Unknown Comments:Office to schedule follow up in 3-4 months or call sooner for procedure (pt knows will be done by partner/referred out if during leave) [facility]02-05-2024 Note [id number] [facility] 07-31-2023 NoteCystoscopy ? Voiding after the [...] including vitamins, herbs, eye drops, creams, and kkqp-aar-qxplmxa medicines. ? Any problems you or family [...] tells you to take them. ? Taking mvfi-jxj-zugebya medicines, vitamins, herbs, and supplements. ? Follow [...] at least 4 week (more content not included)...[facility]12-28-2023 Evaluation note* Encounter Date Diagnosis Assessment Notes Treatment Notes Treatment Clinical Notes May, Simple chronic bronchitis (ICD-10 - J41.0) [facility] Other 12-27-2023 Evaluation note* Encounter Date Diagnosis Assessment Notes Treatment Notes Treatment Clinical Notes May, Simple chronic bronchitis (ICD-10 - J41.0) [facility] Other 12-26-2023 Evaluation note* Encounter Date Diagnosis Assessment Notes Treatment Notes Treatment Clinical Notes May, Simple chronic bronchitis (ICD-10 - J41.0) [facility] Other [id number] Hospital Discharge instructions Patient Education 06/16/2023 10:59:22 [...] treatment? Where to find more information [employer]: www.cancer.org [place] [employer]: www.auanet.org Contact a health care [...] provider. Document Revised: 12/06/2021 Document Reviewed: 12/06/2021 [email or web address] Patient Education 2022 [employer]. Follow Up Care 06/16/2023 08:30:52 With:Meghan Brito MD, URL, URO Address: [address] [place] [phone] When: Unknown Comments:6 mos w/ CT and PSA [facility] 12-20-2023 Hospital Discharge instructions Follow Up Care 06/14/2023 08:28:10 With:Meghan Brito MD, URL, URO Address: When: Unknown [facility] 12-12-2023 Hospital Discharge instructions Patient Education 06/06/2023 16:52:41 [facility] - Transrectal Ultrasound of the Prostate with US guided biopsy Discharge Instructions (CUSTOM) Transperineal?Biopsy of the Prostate Discharge Instructions After the procedure, it is common to have: Pain and discomfort near your rectum, especially while sitting. Roann-colored urine due to small amounts of blood [...] Brito Address:Unknown When: Unknown Comments:Keep scheduled appointment [facility]12-12-2023 Evaluation + Plan noteExtracted from: Title:[facility] -transperineal prostate biopsy Author:Meghan Melgoza MD Date:06/06/23 Impression and Plan Diagnosis Elevated PSA (MBS97-FV R97.20, Discharge, Medical). Diagnosis Elevated PSA (HHZ73-SA R97.20, Discharge, Medical). Future Appointments Appointment Date:06/14/2023 10:30:00 AM Scheduled Provider:Meghan Brito MD Location:[facility] Appointment Type:URO Office Visit [facility]11-20-2023 Note [id number] Hospital Discharge instructions Follow Up Care 05/10/2023 11:27:04 With:Daryl HAMILTON, LOGAN Villalpando, URO Address: [address], [place] [phone] When: Unknown [facility] 11-15-2023 Hospital Discharge instructions Patient Education 05/10/2023 [...] treatment? Where to find more information [employer] [place] [employer]: www.cancer.org [place] [employer]: www.auanet.org Contact a health care [...] provider. Document Revised: 12/06/2021 Document Reviewed: 12/06/2021 [email or web address] Patient Education 2022 [employer]. 05/10/2023 11:11:23 Benign Prostatic Hyperplasia Benign Prostatic [...] urethra. Follow these instructions at home: Take ozpq-nxh-iwkbsyo and prescription medicines only as told by [...] provider. Document Revised: 12/29/2021 Document Reviewed: 12/29/2021 [email or web address] Patient Education 2022 [employer]. Follow Up Care 04/12/2023 09:16:25 With:Lue MD, LOGAN Villalpando, URO Address: When: Unknown Comments:Sched Transperineal Bx of Prostate [facility] [facility] Evaluation note* Encounter Date Diagnosis Assessment Notes Treatment Notes Treatment Clinical Notes Apr, Primary hypertension (ICD-10 - I10) [facility] Other 10-17-2023 Hospital Discharge instructions Patient Education [...] treatment? Where to find more information [employer]: www.cancer.org [place] [employer]: www.auanet.org Contact a health care [...] provider. Document Revised: 12/06/2021 Document Reviewed: 12/06/2021 [email or web address] Patient Education 2022 [employer]. Follow Up Care 03/16/2023 16:12:09 With:FLAKO ELLIOTT, THERESA Merida, URL [address]: [address] [facility] [place] [address] [phone] When: Unknown Comments:f/u with MD in 1 month w/ PSA and Select MD[facility] 10-10-2023 Evaluation note* Encounter Date Diagnosis Assessment Notes Treatment Notes Treatment Clinical Notes Mar, Primary hypertension (ICD-10 - I10) [facility] Other 06-27-2023 Hospital Discharge instructions Patient Education [...] treatment? Where to find more information [employer]: www.cancer.org [place] [employer]: www.auanet.org Contact a health care [...] provider. Document Revised: 12/06/2021 Document Reviewed: 12/06/2021 [employer] Patient Education 2022 [employer]. Follow Up Care 10/03/2022 14:27:57 With:THERESA FLEMING PA-C, URL Address: [address] [place] [address] When: Unknown Comments:Sched Select MDX and MRI of Prostate. [facility] 06-20-2023 Evaluation note* Encounter Date Diagnosis Assessment Notes Treatment Notes Treatment Clinical Notes Nov, Cigarette nicotine dependence in remission (ICD-10 - F17.211) Started at age 19, quit age 66, 1ppd. LDCT w/o nodules - 11/2022 [facility] Other 06-19-2023 Evaluation note* Encounter Date Diagnosis Assessment Notes Treatment Notes Treatment Clinical Notes Nov, Simple chronic bronchitis (ICD-10 - J41.0) Nov, Cigarette nicotine dependence in remission (ICD-10 - F17.211) Started at age 19, quit age 66, 1ppd. LDCT w/o nodules - 11/2022 [facility] Other 05-31-2023 Evaluation note* Encounter Date Diagnosis [...] Z12.5) Yearly MARIZA and PSA, f/u Urology [facility] Other 03-08-2023 Evaluation note* Encounter Date Diagnosis [...] in remission (ICD-10 - F17.211) Continue abstinence [facility] Other 05-03-2022 Hospital Discharge instructions Patient Education [...] urethra. Follow these instructions at home: Take ecjq-dup-mowvwiy and prescription medicines only as told by [...] 06/12/2006 Document Revised: 05/07/2019 Document Reviewed: 07/17/2017 [email or web address] Patient Education 2020 [employer]. Follow Up Care 10/22/2020 09:07:58 With:Erlin Alonso MD, Daniel Tse, URO Address: [facility] [address], [place] [id number]- When:10/26/2022 Comments:with PSA [facility] 02-12-2022 Evaluation note* Encounter Date [...] Patient care instructions given in writting by [employer] document [facility] Other 11-29-2021 Evaluation note* Encounter Date Diagnosis Assessment Notes Treatment Notes Treatment Clinical Notes Apr, Contact with and (suspected) exposure to other viral communicable diseases (ICD-10 - Z20.828) Apr, COVID-19 (ICD-10 - U07.1) Today you tested positive for the COVID virus. This mean you need to follow all [facility] quarantine guidelines found at coronavirus.[email or web address].go v. It is important to rest, increase [...] Patient care instructions given in writting by CDC Care At Home document. [facility] Other Evaluation + Plan note Future Appointments Appointment Date:11/01/2022 08:15:00 AM Scheduled Provider:Daniel Kern Jr., MD Location:[facility] Appointment Type:URO Office Visit Diagnostic Tests Pending * PSA Total 10/26/21 [facility] evaluation + Plan note Future Appointments Appointment Date:04/28/2023 08:15:00 AM Scheduled Provider:Meghan Brito MD Location:[facility] Appointment Type:URO Office Visit Diagnostic Tests Pending * PSA Total 04/11/23 [facility] evaluation + Plan note Future Appointments Appointment Date:06/06/2023 02:30:00 PM Scheduled Provider: Location:[facility] Surgical Services Appointment Type:Surgery FT Appointment Date:06/14/2023 10:30:00 AM Scheduled Provider:Meghan Brito MD Location:[facility] Appointment Type:URO Office Visit [facility] evaluation + Plan note Future Appointments Appointment Date:06/15/2023 03:30:00 PM Scheduled Provider:Meghan Brito MD Location:[facility] Appointment Type:URO Office Visit [facility] evaluation + Plan note Future Appointments Appointment Date:06/21/2023 08:45:00 AM Scheduled Provider:Meghan Brito MD Location:[facility] Appointment Type:URO Office Visit [facility] Evaluation + Plan note Future Appointments Appointment Date:06/30/2023 09:15:00 AM Scheduled Provider: Location:[facility] Appointment Type:URO Nurse Visit Diagnostic Tests Pending * PSA Free & Total 06/16/23 [facility] Evaluation + Plan note Future Appointments Appointment Date:06/30/2023 09:15:00 AM Scheduled Provider: Location:[facility] Appointment Type:URO Nurse Visit [facility] evaluation + Plan note Future Appointments Appointment Date:07/31/2023 08:30:00 AM Scheduled Provider: Location:[facility]rology Surgical Services Appointment Type:Urology FT [facility] Evaluation + Plan note Future Appointments Appointment Date:07/31/2023 08:30:00 AM Scheduled Provider: Location:[facility] Surgical Services Appointment Type:Urology FT Diagnostic Tests Pending * Urine Cytology ([facility]) [facility] Future Appointments Appointment Date:12/25/2023 07:30:00 AM Scheduled Provider: Location:[facility] Surgical Services Appointment Type:Surgical PAT FT Appointment Date:01/02/2024 08:00:00 AM Scheduled Provider: Location:[facility] Services Appointment Type:Surgery FT [facility] evaluation + Plan note Future Appointments Appointment Date:01/02/2024 08:00:00 AM Scheduled Provider: Location:[facility] Services Appointment Type:Surgery FT Appointment Date:01/12/2024 08:15:00 AM Scheduled Provider:Meghan Brito MD Location:[facility] Appointment Type:URO [facility] assessment information available [facility] Work Phone: evaluation noteNo InformationNort Atigeo Other evaluation note* Diagnosis Onset Date Resolution Status Anemia acute Benign prostatic hyperplasia with lower urinary tract symptoms acute Chronic bronchitis acute Chronic kidney disease acute Elevated PSA acute Hypercholesterolemia acute Hypertension acute Nicotine addiction acute Screening PSA (prostate specific antigen) acute Welcome to Medicare preventive visit noneactive [facility] Work Phone: evaluation note* Diagnosis Onset Date Resolution Status Acute gout acute Benign prostatic hyperplasia with lower urinary tract symptoms acute Hypertension acute [facility] Work Phone: Hisajim general Narrative - Reported* Type Description Date Medical History high blood pressure Medical History high cholesterol [facility] Other [facility] general Narrative - Reported* Type Description Date [...] HERNIA 1989 Hospitalization History SEE SURGICAL HX [facility] Other Hisbhyz general Narrative - Reported* Type Description Date [...] HERNIA 1989 Hospitalization History SEE SURGICAL HX [facility] Other Hospital course Narrative No data available for this section [facility] Discharge instructions No data available for this section [facility] progress note No data available for this section [facility] Summary Purpose Family History No Family History [...] Unknown Not Specified History of stroke Unknown Relationship Condition Age at Onset Recorded Date/T sharona mother Diabetes mellitus Unknown father Myocardial infarction Unknown sister Cerebrovascular accident (CVA) Unknown sister Diabetes mellitus Unknown father History of stroke Unknown Unknown mother History of stroke Unknown Advance Directives No [...] specific antigen) Welcome to Medicare preventive visit Chief Complaint Rt foot swelling toe , and heel pain Reason for Visit Acute gout Benign prostatic hyperplasia with lower urinary tract symptoms Hypertension Additional Source Comments REASON FOR VISIT (unrecogniz [...] content) DATE CREATED AUTHOR 11/08/2022 [facility] DATE CREATED AUTHOR AUTHOR'S ORGANIZ ATION 04/13/2023 [facility] DATE CREATED AUTHOR AUTHOR'S ORGANIZ ATION 06/17/2023 [facility] DATE CREATED AUTHOR AUTHOR'S ORGANIZ ATION 12/25/2023 [facility] DATE CREATED AUTHOR AUTHOR'S ORGANIZ ATION 12/26/2023 [facility] DATE CREATED AUTHOR AUTHOR'S ORGANIZ ATION [facility]20[facility] DATE CREATED AUTHOR AUTHOR'S ORGANIZ ATION 03/01/2024 [facility] Patient Care team informatio n (unrecognized section and content) Team Status: Active Member Role Status Dates Gio Cavanaugh DO Primary Care Provider Active Team Status: Active Member Role Status Dates Gio Cavanaugh DO Primary Care Provide r, Attending Provider Active Start: November 24, 2023 Team Status: Inactive Member Role Status Dates Gio Ball , DO Primary Care Provide r, Attending Provider Active Start: November 28, 2023 End: November 28, 2023 Team Status: Inactive Member Role Status Dates Gio Cavanaugh , Primary Care Provider Active Theresa Fleming PA-C Attending Provider Active Team Status: Active Member Role Status Dates Gio Cavanaugh , DO Primary Care Provider Active Start: February 22, 2024 Meghan Brito MD Attending Provider Active Start : February 22, 2024 Team Status: Inactive Member Role Status Dates Gio Cavanaugh , Primary Care Provide r, Attending Provider Active Start: February 29, 2024 End: February 29, 2024 Goals (unrecognized section and content) Goals may [...] BE BASED ON THE PRIMARY CLINICAL RECORDS. [facility] 1,2,3 [facility]. provides no warranty or guarantee of the accuracy or completeness of information in this document.
[2024-03-05 07:54] LABS: Basophils Percent Auto 0.4 % (0.2-2.0); Eosinophils Absolute Auto 0.1 10^3/uL (0.0-0.7); Eosinophils Percent Auto 0.7 % (0.9-7.0); Hematocrit 40.6 % (42.0-54.0); Hemoglobin 13.8 g/dL (14.0-18.0); Immature Granulocytes Abs Auto 0.05 10^3/uL (0.00-0.03); Immature Granulocytes Pct Auto 0.7 % (0.0-0.5); Lymphocytes Absolute Auto 1.3 10^3/uL (1.2-3.8); Lymphocytes Percent Auto 17.5 % (20.5-60.0); Mean Corpuscular Hemoglobin 29.9 pg (25.9-34.0); Mean Corpuscular Volume 88.1 fL (80.0-94.0); Monocytes Absolute Auto 0.4 10^3/uL (0.3-0.8); Neutrophils Absolute Auto 5.5 10^3/uL (1.4-6.5); Neutrophils Percent Auto 74.7 % (43.0-75.0); Platelet Count 193 10^3/uL (150-450); Red Blood Count 4.61 10^6/uL (4.70-6.10); Red Cell Distribution Width 12.9 % (11.0-15.0); White Blood Count 7.4 10^3/uL (4.0-11.0)
[2024-03-05 08:40] LABS: Percent Iron Saturation 24.5 %
[2024-03-06 04:08] LABS: Vitamin B12 477 pg/mL (232-1245)
== END 2024-03-05 07:25 | disposition home or self-care (01) ==
LOC: LAB 07:27
PROVIDERS: PCP Internal Medicine; Visit Provider Internal Medicine
DX: D64.9 Anemia, unspecified (principal); N18.31 Chronic kidney disease, stage 3a; I12.9 Hypertensive chronic kidney disease with stage 1 through stage 4 chronic kidney disease, or unspecified chronic kidney disease
CPT/HCPCS: 36415; 82607; 82728; 82746; 83540; 83550; 85025

== ENCOUNTER 2024-03-06 11:13 | Day surgery (SDC) | payer MEDICARE, SELFPAY ==
[2024-02-22 09:01] VITALS: BP 159/71; PULSE 52; TEMP 36.3; O2SAT 95; BMI 34.1
[2024-03-06] VITALS (15 sets, daily range): BP systolic 87–166; BP diastolic 53–74; PULSE 55–68; TEMP 36.1–36.6; O2SAT 92–98; BMI 33.8
--- OUTSIDE RECORDS SUMMARY | 2024-03-06 11:30 | XMS_ITS | CCD ---
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 Other (20 sources) Penicillins; Translations: [penicillins] Drug allergy 08-07-19 16 Unknown (qualifier value), Dyspnea (finding) [facility] (2 sources) Penicillin V Drug Allergy rash/cough [facility] Other (13 sources) Cephalexin; Translations: [Keflex] Drug Allergy 08-07-19 16 rash/cough [facility] (11 sources) Penicillin Drug Allergy rash/cough [facility] Other (7 sources) Keflex *CEPHALOSPORINS* Propensity to adverse reactions 02-29-[address] [facility] Other (2 sources) Penicillin G Benzathine & Proc Drug allergy 02-29-[address] [facility] Other (2 sources) patient allergy list reviewed by nurse or physicia Propensity to adverse reactions 03-02-20 Comment:Done [facility] Other (1 source) Cephalexin Drug Allergy 04-06-20 [facility] Repository (2 sources) Cephalosporins (Antibiotic) Allergy to substance 11-28-19 Unknown Reaction [facility] Medications Current Medications Medication Drug Class(es) [...] day Start: 01-30-2023 take 1 tablet by [facility] once daily alfuzosin 10 mg ER Tab 10 mg = 1 tab(s), Oral, Daily, # 30 tab(s), Refills(s) 5, Pharmacy: [facility] #72, 180, cm, 12/20/22 10:13:00 EDT, Height/Length Dosing, 102.5, kg, 12/20/22 10:13:00 EDT, Weight Dosing Start Date: 01/30/23 Status: Ordered Start: 07-14-2022 take 1 tablet by [facility] once daily alfuzosin 10 mg ER Tab 10 mg = 1 tab(s), Oral, Daily, # 30 tab(s), Refills(s) 5, Pharmacy: [id number], 180, cm, 10/26/21 9:12:00 EDT, Height/Length Dosing, 95.2, kg, 10/26/21 9:12:00 EDT, Weight Dosing Start Date: 07/14/22 Status: Ordered Start: 07-08-2021 take 1 tablet by [facility] once daily alfuzosin 10 mg ER Tab 10 mg = 1 tab(s), Oral, Daily, # 30 tab(s), Refills(s) 11, Pharmacy: [facility], 180, cm, 07/08/21 15:57:00 EST, Height/Length [...] day(s), # 2 tab(s), Refills(s) 0, Pharmacy: [facility] #72, 180, cm, 05/10/23 10:56:00 EST, Height/Length Dosing, 102, kg, 05/10/23 10:56:00 EST, Weight Dosing Start Date: 05/10/23 Stop Date: 05/11/23 Status: Ordered diazePAM 10 mg oral tablet (4 sources) Benzodiazepine Start: 05-10-2023 Valium 10 mg T ab 10 mg = 1 tab(s), Oral, Once, take 30 minutes prior to procedure, # 1 tab(s), Refills(s) 0, Pharmacy: [facility] #72, 180, cm, 05/10/23 10:56:00 EST, Height/Length [...] at 11pm Orally BID for 1 days BIN:[id number] PCN: [id number] GROUP:[id number] ID:[id number] October, Not-Taking/PRN Start: 11-17-2020 [facility] 140 GM dose 1 pouch at 4pm, dose 2 pouch A & B at 11pm Orally BID for 1 days BIN:[id number] PCN: [id number] GROUP:[id number] ID:[id number] October, Not-Taking Start: 11-17-2020 Plenvu 140 GM dose 1 pouch at 4pm, dose 2 pouch A & B at 11pm Orally BID for 1 days BIN:[id number]: CNRXGROUP:[id number] October, Not-Taking Start: 11-17-2020 Plenvu 140 GM dose 1 pouch at 4pm, dose 2 pouch A & B at 11pm Orally BID for 1 days BIN:[id number]: CNRXGROUP:[id number] October, Active carvedilol 6.25 mg oral tablet [...] 01-29-2019 Chronic Other aftercare (1 source) Other prison (current) drug therapy; Translations: [OTH [facility] CURRENT DRUG THERAPY] Onset: 08-30-2022 Episodic Other aftercare (2 sources) Long-term current use of drug therapy; Translations: [Other prison (current) drug therapy] Episodic Other and unspecified [...] non-blacks MDRD (S/P/Bld) [Vol rate/Area] mL/min/{1.73_m2} >=60 [facility] Laboratory - Chemistry and C hemistry - challengeon 02-22-2024 Calcium [Mass/Vol] 9.0 mg/dL 8.5-10.1 [facility] Chloride [Moles/Vol] 104 mmol/L 98-107 [facility] CO2 [Moles/Vol] 27.5 mmol/L 21.0-32.0 [facility] Creatinine [Mass/Vol] 1.07 mg/dL 0.70-1.30 [facility] GFR/1.73 sq M.predicted MDRD (S/P/Bld) [Vol rate/Area] mL/min/{1.73_m2} >=60 [facility] Glucose [Mass/Vol] 114 mg/dL High 74-106 [facility] Potassium [Moles/Vol] 4.2 mmol/L 3.5-5.1 [facility] Sodium [Moles/Vol] 139 mmol/L 136-145 [facility] Urea nitrogen [Mass/Vol] 16.0 mg/dL 7.0-18.0 [facility] Urea nitrogen/Creatinine [Mass ratio] 15.0 mg/mg [facility] Serum or plasma anion gap de terminationon 02-22-2024 Anion gap [Moles/Vol] 11.7 mmol/L [facility] 36on 02-12-[address] Lakhani: MD [...] seeing Dr. Lakhani in clinic this morning. [facility] Office Visiton 02-12-2024 Follow-up visit [id number] Michael Killian 1955 M Date Provider Department Center 02/12/2024 [id number] LAKHANI Family History Problem Relation Age of Onset Diabetes Mother Heart attack Father Family Status - Relation Status Age at Mother Father Level of Service:65180 ME OFFICE/OUTPATIENT ESTABLISHED MOD MDM [address] [facility] 36on 01-30-2024 36 Patient had stress test last month for surgery clearance. 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 Can you please review? Thanks! [facility] Office Visiton 01-03-2024 Follow-up visit [id number] Michael Killian Eleazar 1955 M Date Provider Department Center 01/03/2024 [id number]-RCDGSJGLENNA LAKHANI [facility] Family History Problem Relation Age of Onset Diabetes Mother Heart attack Father Family Status - Relation Status Age at Mother Father Level of Service:09884 ME OFFICE/OUTPATIENT NEW MODERATE MDM 45 MINUTES [facility] BMPon 12-25-2023 Anion gap [Moles/Vol] 9 mmol/L Normal 6-16 [facility] Comment on above: Performed By: #### 2 [id number] #### [facility] [address] [place] [address] Calcium [Mass/Vol] 9.4 mg/dL Normal 8.9-11.1 [facility] Comment on above: Performed By: #### 2 [id number] #### [facility] [address] [place] [address] Chloride [Moles/Vol] 104 mmol/L Normal 101-111 [facility] Comment on above: Performed By: #### 2 [id number] #### [facility] [address] [place] [address] CO2 [Moles/Vol] 30 mmol/L Normal 21-31 [facility] Comment on above: Performed By: #### 2 [id number] #### [facility] [address] [place] [address] Creatinine [Mass/Vol] 1.3 mg/dL Normal 0.5-1.3 [facility] Comment on above: Performed By: #### 2 [id number] #### [facility] [address] [place] [address] Glucose [Mass/Vol] 113 mg/dL Normal 55-199 [facility] Comment on above: Performed By: #### 2 [id number] #### [facility] [address] [place] [address] Potassium [Moles/Vol] 4.3 mmol/L Normal 3.5-5.3 [facility] Comment on above: Performed By: #### 2 [id number] #### [facility] [address] [place] [address] Sodium [Moles/Vol] 139 mmol/L Normal 135-145 [facility] Comment on above: Performed By: #### 2 [id number] #### [facility] [address] [place] [address] Urea nitrogen [Mass/Vol] 21 mg/dL Normal 5-21 [facility] Comment on above: Performed By: #### 2 [id number] #### [facility] [address] [place] [address] Urea nitrogen/Creatinine [Mass ratio] 16 No Units Normal 10-20 [facility] Comment on above: Performed By: #### 2 [id number] #### [facility] [address] [place] [address] CBC w/ Auto Diffon 4 Basophils/100 WBC (Bld) 2.0 % Normal 0.0-2.0 [facility] Comment on above: Performed By: #### 2 [id number] #### [facility] [address] [place] [address] Basophils/Leukocytes Auto (Bld) [Pure # fraction] 0.1 E9/L Normal 0.0-0.2 [facility] Comment on above: Performed By: #### 2 [id number] #### [facility] [address] [place] [address] Eosinophils (Bld) [#/Vol] 0.3 E9/L Normal 0.0-0.5 [facility] Comment on above: Performed By: #### 2 085591 #### [facility] [address] [place] [address] Eosinophils/100 WBC (Bld) 4.8 % Normal 0.0-8.0 [facility] Comment on above: Performed By: #### 2 626841 #### [facility] [address] [place] [address] Erythrocyte distribution width (RBC) [Ratio] 14.1 % Normal 10.9-14.2 [facility] Comment on above: Performed By: #### 2 655008 #### [facility] [address] [place] [address] Hematocrit (Bld) [Volume fraction] 38.5 % Normal 37.7-49.0 [facility] Comment on above: Performed By: #### 2 [id number] #### [facility] [address] [place] [address] Hemoglobin (Bld) [Mass/Vol] 13.7 g/dL Normal 13.5-17.5 [facility] Comment on above: Performed By: #### 2 570879 #### [facility] [address] [place] [address] Lymphocytes (Bld) [#/Vol] 1.6 E9/L Normal 1.0-4.0 [facility] Comment on above: Performed By: #### 2 856627 #### [facility] [address] [place] [address] Lymphocytes/100 WBC (Bld) 29.7 % Normal 14.0-50.0 [facility] Comment on above: Performed By: #### 2 143295 #### [facility] [address] [place] [address] MCH (RBC) [Entitic mass] 30.3 pg Normal 27.0-34.0 [facility] Comment on above: Performed By: #### 2 612912 #### [facility] [address] [place] [address] MCHC (RBC) [Mass/Vol] 35.5 g/dL Normal 31.4-36.0 [facility] Comment on above: Performed By: #### 2 [id number] #### [facility] [address] [place] [address] MCV (RBC) [Entitic vol] 85.3 fL Normal 80.0-100.0 [facility] Comment on above: Performed By: #### 2 [id number] #### [facility] [address] [place] [address] Monocytes (Bld) [#/Vol] 0.5 E9/L Normal 0.2-1.0 [facility] Comment on above: Performed By: #### 2 749631 #### [facility] [address] [place] [address] Neutrophils (Bld) [#/Vol] 3.1 E9/L Normal 2.0-7.5 [facility] Comment on above: Performed By: #### 2 [id number] #### [facility] [address] [place] [address] Neutrophils/100 WBC (Bld) 55.2 % Normal 36.0-75.0 [facility] Comment on above: Performed By: #### 2 [id number] #### [facility] [address] [place] [address] Platelet 166.0 E9/L Normal 150.0-500.0 [facility] Comment on above: Performed By: #### 2 [id number] #### [facility] [address] [place] [address] Platelet mean volume (Bld) [Entitic vol] 8.6 fL Normal 6.4-10.8 [facility] Comment on above: Performed By: #### 2 [id number] #### [facility] [address] [place] [address] RBC (Bld) [#/Vol] 4.5 E12/L Normal 4.3-5.9 [facility] Comment on above: Performed By: #### 2 790855 #### [facility] [address] [place] [address] WBC corrected for nucl RBC Auto (Bld) [#/Vol] 5.5 E9/L Normal 4.0-11.0 [facility] Comment on above: Performed By: #### 2 442817 #### [facility] [address] [place] [address] CHEMISTRYOrdered By: SYSTEM SYSTEM on 12-25-2023 Anion [...] 35.0 s Normal 25.1 - 36.5 second(s) [facility] Auto Coag Comment on above: Interpretive Data: [...] the same coagulation reagent and instrumentation as [facility]. Currently there are no coagulation studies available worldwide for children to 14 days, and no normal ranges. Heparin therapeutic range (represented by Anti-Factor Xa activity of 0.2 - 0.4 U/mL) corresponds to PTT of 56.6 - 109.0 sec. INR Coag (PPP) [Relative time] 1.01 {INR} Invalid Interpretation Code [facility] Auto Coag Comment on above: Interpretive Data: I NR results are specifically intended to assess patients stabilized on long-term Anticoagulation therapy suggested INR s Less Intensive Anticoagulation 2.0 3.0 Conventional Range 3.0 4.5 PT Coag (PPP) [Time] 11.3 s Normal 9.4 - 1 2.5 second(s) [facility] Auto Coag Comment on above: Interpretive Data: [...] the same coagulation reagent and instrumentation as [facility]. Currently there are no coagulation studies available [...] Coag (PPP) [Time] 35.0 second(s) Normal 25.1-36.5 [facility] Comment on above: Result Comment: Para [...] the same coagulation reagent and instrumentation as [facility]. Currently there are no coagulation studies available worldwide for children to 14 days, and no normal ranges. Heparin therapeutic range (represented by Anti-Factor Xa activity of 0.2 - 0.4 U/mL) corresponds to PTT of 56.6 - 109.0 sec. Performed By: #### 1 [id number] #### [facility] [address] [place] [address] INR Coag (PPP) [Relative time] 1.01 {INR} Invalid Interpretation Code [facility] Comment on above: Result Comment: INR results are specifically intended to assess patients stabilized on long-term Anticoagulation therapy suggested INR?s ?Less Intensive Anticoagulation? 2.0 ? 3.0 Conventional Range 3.0 ? 4.5 Performed By: #### 1 [id number] #### [facility] [address] [place] [address] PT Coag (PPP) [Time] 11.3 second(s) Normal 9.4-12.5 [facility] Comment on above: Result Comment: 15 [...] the same coagulation reagent and instrumentation as [facility]. Currently there are no coagulation studies available worldwide for children to 14 days, and no normal ranges. Performed By: #### 1 [id number] #### [facility] [address] [place] [address] UA with Cult Rflxon 12-25-19 24 Bilirubin Ql (U) Negative Normal Negative [facility] Comment on above: Performed By: #### 4 [id number] #### [facility] [address] [place] [address] Clarity (U) Clear Normal Clear [facility] Comment on above: Performed By: #### 4 [id number] #### [facility] [address] [place] [address] Color (U) Light-Yellow Normal Yellow [facility] Comment on above: Result Comment: Micr oscopic readings are only performed on those samples that meet specific criteria set forth by [facility]. Performed By: #### 4 [id number] #### [facility] [address] [place] [address] Glucose Ql (U) Negative Normal Negative [facility] Comment on above: Performed By: #### 4 [id number] #### [facility] [address] [place] [address] Hemoglobin Auto test strip (U) [Mass/Vol] Negative Normal Negative [facility] Comment on above: Performed By: #### 4 [id number] #### [facility] [address] [place] [address] Ketones Auto test strip Ql (U) Negative Normal Negative [facility] Comment on above: Performed By: #### 4 [id number] #### [facility] [address] [place] [address] Leukocyte esterase Auto test strip Ql (U) Negative Normal Negative [facility] Comment on above: Performed By: #### 4 [id number] #### [facility] [address] [place] [address] Nitrite Auto test strip Ql (U) Negative Normal Negative [facility] Comment on above: Performed By: #### 4 [id number] #### [facility] [address] [place] [address] pH (U) 5.5 [pH] Invalid Interpretation Code 5.0-9.0 [facility] Comment on above: Performed By: #### 4 [id number] #### [facility] [address] [place] [address] Protein Ql (U) Negative Normal Negative [facility] Comment on above: Performed By: #### 4 [id number] #### [facility] [address] [place] [id number] Specific gravity (U) [Rel density] 1.012 Invalid Interpretation Code 1.005-1.030 [facility] Comment on above: Performed By: #### 4 [id number] #### [facility] [address] [place] [address] Urobilinogen (U) [Mass/Vol] Negative Normal Negative [facility] Comment on above: Performed By: #### 4 [id number] #### [facility] [address] [place] [address] Type of Urine collection method Clean Catch Normal [facility] Comment on above: Performed By: #### 4 [id number] #### [facility] [address] [id number] URINALYSISOrdered By: SYSTEM SYSTEM on 12-25-2023 Bilirubin Ql (U) Negative Normal Negativemg/ d L [facility] UA Auto SS Clarity (U) Clear (12/25/23 7:53 AM) Normal Clear [facility] UA Auto SS Color (U) Light-Yellow 1 (12/25/23 7:53 AM) Normal Yellow [facility] UA Auto SS Comment on above: Interpretive Data: M icroscopic readings are only performed on those samples that meet specific criteria set forth by [facility]. Glucose Ql (U) Negative Normal [...] AM) Invalid Interpretation Code 5.0 - 9.0 [facility] UA Auto SS Protein Ql (U) Negative Normal Negativemg/d L [facility] UA Auto SS Specific gravity (U) [Rel density] 1.012 *NA* (12/25/23 7:53 AM) Invalid Interpretation Code 1.005 - 1.030 [facility] UA Auto SS Urobilinogen (U) [Mass/Vol] Negative Normal Negativemg/d L [facility] UA Auto SS URINALYSISOrdered By: Genevieve Quintero on 12-25-2023 UA Spec Desc Clean Catch (12/25/23 7:53 AM) Normal [facility] UA Auto SS XR Chest 2 Viewson [...] mGy = na DAP = na Normal [facility] eGFRon 12-25-2023 eGFR 60 mL/min/1.73 m2 Normal >=59 [facility] Comment on above: Order Comment: Order added by Discern Expert. Performed By: #### 1 [id number] #### [facility] [address] [place] [address] Reminderson 12-06-2023 Reminders - From: Carissa Hammonds [...] seen KML 11/29/23. Scheduled for TURP Normal [facility] Screenson 12-01-2023 Screens [id number] #1.00TIFF Normal [facility] Screens [id number] #1.00TIFF Normal [facility] Consent for Procedure/Surger yon 11-30-2023 Consent for Procedure/Surgery [id number]# 1.00TIFF Normal [facility] Patient Educationon 11-29-19 Patient Education Urology [...] these instructions at home: Medicines ? Take nvol-zim-qkozole and prescription medicines only as told by [...] keep your urine pale yellow. ? Take yuhp-ftr-bpszqdq or prescription medicines. ? Eat foods that [...] provider. Document Revised: 03/08/2022 Document Reviewed: 03/08/2022 [employer] Patient Education ? 2022 [employer] Transurethral Resection o (more content not included)... Normal [facility] Urology Office/Clinic Noteon 11-29-2023 Urology Office/Clinic [...] pelvic jameel (more content not included)... Normal [facility] Comment on above: Result Comment: Elec tronically Signed By: Meghan Brito MD\.br\Date and Time Signed: 11/29/23 16:11 EDT\.br\Electronically Co-Signed By: Carissa Hammonds\.br\Date and Time Co-Signed: 11/29/23 11:34 EDT Basophils Auto (Bld) [#/Vol] on 11-24-2023 Basophils (Bld) [#/Vol] 0.1 10 3/uL 0.0-0.1 [facility] Basophils/100 WBC Auto (Bld) on 11-24-2023 Basophils/100 WBC (Bld) 1.4 % 0.2-2.0 [facility] Cholesterol in LDL Calc [Mas s/Vol]on 11-24-2023 Cholesterol in LDL [Mass/Vol] 135.0 mg/dL [facility] Comment on above: <100 mg/dl [id number] 0-129 mg/dl NEAR OR ABOVE [id number] mg/dl BORDERLINE [id number] mg/dl HIGH>190 mg/dl VERY HIGH Cholesterol in VLDL Calc [Ma ss/Vol]on 11-24-2023 Cholesterol in VLDL [Mass/Vol] 19.2 mg/dL [facility] Eosinophils/100 WBC Auto (Bl d)on 11-24-2023 Eosinophils/100 WBC (Bld) 4.8 % 0.9-7.0 [facility] Erythrocyte distribution wid th Auto (RBC) [Ratio]on 11-24-2023 Erythrocyte distribution width (RBC) [Ratio] 13.2 % 11.0-15.0 [facility] Estimated glomerular filtrat ion rate (GFR) non- Americanon 11-24-2023 GFR/1.73 sq M.predicted among non-blacks MDRD (S/P/Bld) [Vol rate/Area] 51 mL/min/{1.73_m2} >=60 [facility] Globulin Calc (S) [Mass/Vol] on 11-24-2023 Globulin (S) [Mass/Vol] 3.5 g/dL [facility] Hematocrit Auto (Bld) [Volum e fraction]on 11-24-2023 Hematocrit (Bld) [Volume fraction] 39.3 % 42.0-54.0 [facility] Hemoglobin [Mass/volume] in Bloodon 11-24-2023 Hemoglobin (Bld) [Mass/Vol] 12.9 g/dL 14.0-18.0 [facility] - Chemistry and C hemistry - challengeon 11-24-2023 Albumin [Mass/Vol] 3.8 g/dL 3.4-5.0 [facility] ALP [Catalytic activity/Vol] 72 U/L 46-116 [facility] ALT [Catalytic activity/Vol] 25 U/L 16-63 [facility] AST [Catalytic activity/Vol] 17 U/L 15-37 [facility] Bilirubin [Mass/Vol] 0.9 mg/dL 0.2-1.0 [facility] Calcium [Mass/Vol] 8.9 mg/dL 8.5-10.1 [facility] Chloride [Moles/Vol] 105 mmol/L 98-107 [facility] Cholesterol [Mass/Vol] 188 mg/dL <=200 [facility] Cholesterol in HDL [Mass/Vol] 34 mg/dL 40-60 [facility] Comment on above: > or =60 mg/dl - LOW CARDIOVASCULAR RISK<40 mg/dl - HIGH CARDIOVASCULAR RISK CO2 [Moles/Vol] 28.1 mmol/L 21.0-32.0 [facility] Creatinine [Mass/Vol] 1.40 mg/dL 0.70-1.30 [facility] GFR/1.73 sq M.predicted MDRD (S/P/Bld) [Vol rate/Area] mL/min/{1.73_m2} >=60 [facility] Glucose [Mass/Vol] 114 mg/dL 74-106 [facility] Potassium [Moles/Vol] 4.2 mmol/L 3.5-5.1 [facility] Protein [Mass/Vol] 7.3 g/dL 6.4-8.2 [facility] Sodium [Moles/Vol] 142 mmol/L 136-145 [facility] Triglyceride [Mass/Vol] 96 mg/dL <=150 [facility] Urea nitrogen [Mass/Vol] 22.0 mg/dL 7.0-18.0 [facility] Urea nitrogen/Creatinine [Mass ratio] 15.7 mg/mg [facility] - Hematology and Cell countson 11-24-2023 Immature granulocytes/100 WBC (Bld) 0.2 % 0.0-0.5 [facility] Leukocytes [#/volume] correc rina for nucleated erythrocytes in Blood by Automated counon 11-24-2023 WBC corrected for nucl RBC Auto (Bld) [#/Vol] 5.0 10 3/uL 4.0-11.0 [facility] Lymphocytes Auto (Bld) [#/Vo l]on 11-24-2023 Lymphocytes (Bld) [#/Vol] 1.6 10 3/uL 1.2-3.8 [facility] Lymphocytes/100 WBC Auto (Bl d)on 11-24-2023 Lymphocytes/100 WBC (Bld) 31.0 % 20.5-60.0 [facility] MCH Auto (RBC) [Entitic mass ]on 11-24-2023 MCH (RBC) [Entitic mass] 28.4 pg 25.9-34.0 [facility] MCHC Auto (RBC) [Mass/Vol]on 11-24-2023 MCHC (RBC) [Mass/Vol] 32.8 g/dL 29.9-35.2 [facility] MCV Auto (RBC) [Entitic vol] on 11-24-2023 MCV (RBC) [Entitic vol] 86.6 fL 80.0-94.0 [facility] Monocytes Auto (Bld) [#/Vol] on 11-24-2023 Monocytes (Bld) [#/Vol] 0.4 10 3/uL 0.3-0.8 [facility] Monocytes/100 WBC Auto (Bld) on 11-24-2023 Monocytes/100 WBC (Bld) 8.1 % 1.7-12.0 [facility] Neutrophils Auto (Bld) [#/Vo l]on 11-24-2023 Neutrophils (Bld) [#/Vol] 2.8 10 3/uL 1.4-6.5 [facility] Neutrophils/100 WBC Auto (Bl d)on 11-24-2023 Neutrophils/100 WBC (Bld) 54.5 % 43.0-75.0 [facility] No Panel Informationon 11-23 Eosinophils # (Auto) 0.2 10 3/uL 0.0-0.7 [facility] Immature Granulocyte # (Auto) 0.01 10 3/uL 0.00-0.03 [facility] Prostate Specific Antigen Screen 6.70 ng/mL <=4.00 [facility] Platelet mean volume Auto (B ld) [Entitic vol]on 11-24-2023 Platelet mean volume (Bld) [Entitic vol] 10.3 fL 9.5-13.5 [facility] Platelets Auto (Bld) [#/Vol] on 11-24-2023 Platelets (Bld) [#/Vol] 177 10 3/uL 150-450 [facility] RBC Auto (Bld) [#/Vol]on RBC (Bld) [#/Vol] 4.54 10 6/uL 4.70-6.10 [facility] Serum or plasma albumin/glob ulin mass ratioon 11-24-2023 Albumin/Globulin [Mass ratio] 1.1 {ratio} [facility] Serum or plasma anion gap de terminationon 11-24-2023 Anion gap [Moles/Vol] 13.1 mmol/L [facility] Serum or plasma total choles terol/high density lipoprotein (HDL) cholesterol mass juve 11-24-2023 Cholesterol.total/Cho lesterol in HDL [Mass ratio] 5.5 {ratio} [facility] Comment on above: 3.3 - 4.4 LOW RISK4. 4 - 7.1 AVERAGE RISK7.1 - 11.0 MODERATE RISK>11.0 HIGH RISK Consent for Procedure/Surger yon 07-31-2023 Consent for Procedure/Surgery [id number] 6#1.00TIFF Normal [facility] Consent for Treatmenton Consent for Treatment [id number] #1.00TIFF Normal [facility] Inpatient Patient Summaryon 07-31-2023 Inpatient Patient Summary [place] [id number] Clinical Summary Person Information Name: MICHAEL KILLIAN Age: 68 Years : 1955 Sex: Male PCP: GIO CAVANAUGH DO Marital Status: Race: White Ethnicity: Non- or Language: Bengali Visit Id: Visit Reason: GROSS HEMATURIA Speciality: Acuity: Enc Type: Outpatient Med Service: Surgery Arrival: 07/31/2023 07:51:46 Discharge: Dispo Type: Address: [address] [place] [address] [place] [address] [phone] Provider Notes: Diagnosis: BPH with urinary obstruction; [...] Meghan Brito MD Consulting Physician: Referring Physician: eMghan Brito MD Follow up: With: Address: When: Meghankevin Brito Italo Abbott, [place] [facility], [facility] [address] [place] [address] [phone] Business (1) Comments: Office to schedule follow up in 3-4 months or call sooner for procedure (pt knows will be done by partner/referred out if during leave) Patient Education Information: Robot-Assisted Laparoscopic Radical Prostatectomy; Transurethral Resection of the Prostate; EU - Cystoscopy Discharge Instructions (CUSTOM) [facility] IntraOperative Documentson 0 07-31-2023 IntraOperative Documents [id number] 6#1.00TIFF [facility] Main OR Intraoperative Recor don 07-31-2023 Main OR Intraoperative Record IntraOp Document Type FTURO Summary Primary Physician: Meghan Brito MD Finalized Date/Time: 07/31/23 09:01:26 Pt. Name: MICHAEL KILLIAN/Sex: 1955 Male Med Rec #: [id number] Physician: Meghan Brito MD Financial #: [id number] Pt. Type: O Room/Bed: / Admit/Disch: 07/31/23 [...] Rachana Felton Role Performed Surgeon - Primary Track Grinder Operator - Primary Scrub - Primary Time [...] RN, Ruthann Document Signatures Signed By: JAY iBrd RN, Ruthann 07/31/23 09:01 [facility] Main OR Preoperative Recordo n 07-31-2023 Main OR Preoperative Record Holding Area Document Type FTURO Summary Primary Physician: Meghan Brito MD Finalized Date/Time: 07/31/23 08:50:15 Pt. Name: DANIELMICHAEL/Sex: 1955 Male Med Rec #: [id number] Physician: Meghan Brito MD Financial #: [id number] Pt. Type: O Room/Bed: / Admit/Disch: 07/31/23 [...] JAY Bird RN, Ruthann 07/31/23 08:50 Normal [facility] Operative Reporton Operative Report Patient: MICHAEL KILLIAN Age: 68 years Sex: Male : 1955 Associated Diagnoses: None Author: Meghan Brito MD Procedure Operative Information Details: Date/ Time: 07/31/2023 09:06:00. Pre-Op Dx: BPH with urinary obstruction (VQE64-JF N40.1, Discharge, Medical), Feeling of incomplete bladder emptying (ZOQ86-VW R39.14, Discharge, Medical), Gross hematuria (FCU89-QP R31.0, Discharge, Medical). Post-Op Dx: Same. Anesthesia [...] BPH workup and gross hematuria. . Normal [facility] Comment on above: Result Comment: Elec tronically Signed By: Meghan Brito MD\.br\Date and Time Signed: 07/31/23 09:10 EST Outpatient Surgery Discharge Instructionon 07-31-2023 Outpatient Surgery Discharge Instruction [address] [address] Patient Discharge Instructions PERSON INFORMATION [...] Follow up: With: Address: When: Meghan Brito [address] [place], [place] [id number] [phone] Business (1) Comments: Office to schedule follow [...] including vitamins, herbs, eye drops, creams, and pfsz-gii-qkwqcrp medicines. ? Any problems you or family [...] tells you to take them. ? Taking cqxi-tkh-dlshniu medicines, vitamins, herbs, and supplements. ? Follow your health care provider's instructions about cleaning out your bowels. Surgery s (more content not included)... Normal [facility] Progress Note-Physicianon Progress Note-Physician Patient: [...] Daily, # 90 tab(s), Refills(s) 3, Pharmacy: [facility], 180, cm, 06/16/23 9:50:00 EST, Height/Length Dosing, 108.2, kg, 06/16/23 9:50:00 EST, Weight Dosing Documented Medications Documented carvedilol 6.25 mg Tab: 6.25 mg = 1 tab(s), Oral, BID, # 60 tab(s), Refills(s) 0 lisinopril 40 mg Tab: mg tab(s), Oral, Daily, Refills(s) 0 Impression and Plan Assessment and Plan: Diagnosis: BPH with urinary obstruction (BDF60-BQ N40.1, Discharge, Medical), Pelvic lymphadenopathy (QMP51-KY R59.0, Working, Medical), Chronic prostatitis (XAK80-XT N41.1, Discharge, Medical), Feeling of incomplete bladder emptying (OHK13-SF R39.14, Discharge, Medical), Gross hematuria (YZJ26-XG R31.0, Discharge, Medical). Assessment and Plan: Diagnosis: BPH with urinary obstruction (FZO72-GP N40.1, Discharge, Medical), Chronic prostatitis (XXY08-YZ N41.1, Discharge, Medical), Feeling of incomplete bladder emptying (EHK88-QA R39.14, Discharge, Medical), Gross hematuria (HEQ89-CN R31.0, Discharge, Medical), Pelvic lymphadenopathy (EEH13-VO R59.0, Working, Medical). 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 Gross hematuria - after [place] CTU 07/05/23 at [facility] - neg for upper tract filling defects [...] 4 to 5 months with PVR Normal [facility] Comment on above: Result Comment: Elec tronically Signed By: Daryl HAMILTON, Meghan Oshea.br\Date and Time Signed: 07/31/23 12:31 EST RAD - CT Reporton 07-10-2023 RAD - CT Report [id number]# 1.00TIFF Normal [facility] Lab Reportson 07-07-2023 Lab Reports [id number]# 1.00TIFF Normal [facility] Lab Reports [id number] #1.00TIFF Normal [facility] Urine Cytology ([facility])on 07-05-2023 Urine Cytology Diagnosis Info Invalid Interpretation Code [facility] Comment on above: Result Comment: A:Ur ine,Urine:Voided Interpretation - MicroScopic Description - Adequacy - Gross Description Site ID:A color Dark Miner fixative Alcohol Specimen designated Urine received in alcohol preservative and labeled with the patient?s name, consists of 110ml cloudy dark peach fluid. Electronically signed by : on: 07/05/2023 13:00:05 Performed By: #### 1 [id number] ####[facility] [address] [place] [address] Urine Cytology ([facility])on 06-30-2023 Method of Extraction Voided Normal [facility] Comment on above: Performed By: #### 1 [id number] ####[facility] [address] [place] [address] Number of Jars 1 Invalid Interpretation Code [facility] Comment on above: Performed By: #### 1 [id number] ####[facility] [address] [place] [address] Specimen Urine Normal [facility] Comment on above: Performed By: #### 1 [id number] ####[facility] [address] [place] [address] Type of Service Technical Only Normal [facility] Comment on above: Performed By: #### 1 [id number] ####[facility] [address] [place] [address] IntraOperative Documentson 1 08-23-2022 IntraOperative Documents [id number] 0#1.00TIFF Normal [facility] Pathology Noteon 06-22-2023 Pathology Note [id number] #1.00TIFF Normal [facility] Screenson 06-20-2023 Screens [id number] #1.00TIFF Normal [facility] Screens [id number] #1.00TIFF Normal [facility] Ambulatory Visit Summaryon 1 08-17-2022 Ambulatory Visit Summary MICHAEL KILLIAN :1955 Visit Date:06/16/2023 Ambulatory Visit Instructions Your Diagnosis Elevated PSA BPH with urinary obstruction ED (erectile dysfunction) Former smoker Enlarged lymph node Tests Performed Urnls Dip Stick Auto w/o Microscopy POC [address] CT Pelvis w/o Contrast -- Results Pending [...] 9:15 AM EST Where: [facility] Patient Educationon 06-16-20 Patient Education Oncology Prostate [...] Where to find more information ? The [place] [employer]: www.cancer.org ? [place] [employer]: www.auanet.org Contact a health care [...] adds flu (more content not included)... Normal [facility] Urology Office/Clinic Noteon 06-16-2023 Urology Office/Clinic Note Chief Complaint S/P to MRI proste and review path HPI Staff S/p to MR prostate wo/ w con @ [facility] on 04/03/23 Review path report done 06/06/23 [...] consent jane (more content not included)... Normal [facility] Comment on above: Result Comment: [...] KILLIAN /Sex: 1955 Male Med Rec #: [id number] Physician: Meghan Brito MD Financial #: [id number] Pt. Type: A Room/Bed: [place] [address] Admit/Disch: 06/06/23 13:31:36 - 06/06/23 18:00:13 Institution: [...] Performed Surgeon - Primary Scrub - Primary Track Grinder Operator - Primary Time In 06/06/23 16:38:00 [...] and tissue Entry 1 Skin Integrity Intact, Midwest, Warm, and Skin Abnormality No Dry Outcomes [...] Board Right (more content not included)... Normal [facility] Discharge Instructionson Discharge Instructions [id number] 9#1.00TIFF [facility] IntraOperative Documentson 08-09-2022 IntraOperative Documents [id number] 5#1.00TIFF [facility] IntraOperative Documents [id number] 9#1.00TIFF [facility] IntraOperative Documents [id number] 9#1.00TIFF [facility] Preoperative Documentson Preoperative Documents [id number] 5#1.00TIFF [facility] Consent for Procedure/Surger yon 06-06-2023 Consent for Procedure/Surgery [id number] 58#1.00TIFF [facility] Consent for Treatmenton 05-26 Consent for Treatment [id number] #1.00TIFF [facility] Discharge Instructionson Discharge Instructions MICHAEL KILLIAN [...] 17:16 EST H&P Updateon 06-06-2023 H&P Update [id number] 9#1.00TIFF [facility] Inpatient Patient Summaryon 06-06-2023 Inpatient Patient Summary [place] [id number] [facility] Clinical Discharge Instructions PERSON INFORMATION Name: [...] Location Start Finish State URO Office Visit [facility] [place] 06/14/2023 10:30 AM 06/14/2023 10:45 AM Confirmed [...] Tab) By Mouth every day. Comment: Normal [facility] Operative Reporton Operative Report Patient: [...] . Impression and Plan Diagnosis Elevated PSA (VNZ17-NG R97.20, Discharge, Medical). Diagnosis Elevated PSA (LAG78-EH R97.20, Discharge, Medical). Normal [facility] Comment on above: Result Comment: Elec tronically Signed By: Daryl HAMILTON, Meghan Tucker\.br\Date and Time Signed: 06/06/23 16:58 EST Outpatient Surgery Discharge Instructionon 06-06-2023 Outpatient Surgery Discharge Instruction [place] [id number] Patient Discharge Instructions PERSON INFORMATION Name: MICHAEL [...] Location Start Finish State URO Office Visit [facility] NANCY [place] 06/14/2023 10:30 AM 06/14/2023 10:45 [...] to serve you. Thank you for choosing [facility] HERE ARE THE MEDICATION CHANGES THAT [...] near your rectum, especially while sitting. ? Midwest-colored urine due to small amounts of blood [...] urinating or catheter-related problems Medication Leaflets: [place] [facility] Patient Education - Texton 1 08-07-2022 Patient Education - Text Transperineal?Biopsy of the Prostate Discharge Instructions After the procedure, it is common to have: ? Pain and discomfort near your rectum, especially while sitting. ? Midwest-colored urine due to small amounts of blood [...] you have difficulty urinating or catheter-related problems [facility] Outside Recordson 05-15-2023 Outside Records [id number] 5#1.00TIFF [facility] Ambulatory Visit Summaryon 1 07-12-2022 Ambulatory Visit Summary MICHAEL KILLIAN :1955 Visit Date:05/10/2023 Ambulatory Visit Instructions Your Diagnosis Elevated PSA BPH with urinary obstruction Tests Performed Urnls Dip Stick Auto w/o Microscopy POC 86411 Your Care Team Attending Physician - Daryl [...] Appointments Monday 2:30 PM EST With: Where: [facility] Monday 10:30 AM EST With: Daryl HAMILTON, Meghan Tucker Where: [facility] [...] Where to find more information ? The [place] [employer]: www.cancer.org ? [place]: www.auanet.org Contact a health care [...] adds flu (more content not included)... Normal [facility] [place] 05-10-2023 Screens [id number] 1#1.00TIFF Normal [facility] Screens [id number] 3#1.00TIFF Normal [facility] Urology Office/Clinic Noteon 05-10-2023 Urology [...] cancer upon bx. 95% likelihood of detecting Summit scores >=7 cancer. Today I reviewed the [...] the office notified. 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 2. BPH [...] -Timed voids (more content not included)... Normal [facility] Comment on above: Result Comment: Elec tronically Signed By: Meghan Brito MD\.br\Date and Time Signed: 05/10/23 11:31 EST\.br\Electronically Co-Signed By: Nevaeh Padilla\.br\Date and Time Co-Signed: 05/10/23 11:22 EST Lab Reportson 04-18-2023 Lab Reports [id number] #1.00TIFF Normal [facility] Physician Orderon 04-13-2023 Physician Order [id number] #1.00TIFF Normal [facility] Formson 04-12-2023 Forms [id number] #1.00TIFF Normal [facility] Lab Reportson 04-12-2023 Lab Reports [id number] #1.00TIFF Normal [facility] Patient Educationon 04-11-20 Patient Education Oncology [...] Where to find more information ? The [place] [employer]: www.cancer.org ? [place] [employer]: www.auanet.org Contact a health care [...] adds flu (more content not included)... Normal [facility] Urology Office/Clinic Noteon 04-11-2023 Urology [...] order for PSA. Will complete at [facility]. Return in about 4 weeks to [...] When Contact Information THERESA FLEMING PA-C, URL [address] [address] [phone] Additional Instructions: f/u with MD in 1 [...] SARS-CoV-2 (COVID-19) Ad26 vaccine 09/02/2020 Recorded Normal [facility] Comment on above: Result Comment: Elec tronically Signed By: THERESA FLEMING PA-C\.br\Date and Time Signed: 04/11/23 13:13 EDT\.br\Electronically Co-Signed By: Carissa Hammonds\.br\Date and Time Co-Signed: 04/11/23 12:33 EDT RAD - MRI Reporton 3 RAD - MRI Report [id number] #1.00TIFF Normal [facility] Creatinine (Bld) [Mass/Vol]O rdered By: Theresa Fleming on 04-03-2023 Creatinine [Mass/Vol] 1.4 mg/dL 0.6-1.3 [facility] Comment on above: ER/ESD physician is notified/shown all ISTAT results.Critical values may be confirmed by laboratory testing ifdeemed necessary by ER attending doctor. ISTAT XRay CREon 04-03-2023 Creatinine [Mass/Vol] 1.4 mg/dL High 0.6-1.3 [facility] Comment on above: Result Comment: ER/E SD physician is notified/shown all ISTAT results. Critical values may be confirmed by laboratory testing if deemed necessary by ER attending doctor. Performed By: #### I SCRE #### [address] ISTAT GFR 55.088 Normal [facility] Comment on above: Result Comment: PERF ORMED BY: [place] [address] PATHOLOGIST MORTUARY TECHNICIAN SARAH BETH SILVEIRA M.D. Performed By: #### I SCRE #### [facility] [address] [place] [address] MR prostate wo/w conon 04-03 MR prostate wo/w con [facility] Main [place] [address] [place] [address] MRI Report Signed Patient: Michael Killian MR#: [id number] 050 : 1955 Acct:[id number] Age/Sex: 68 / M ADM Date: 04/03/23 Loc: Room: Type: [facility] Attending Dr: Theresa Fleming PA-C Copies to: [...] Cleary Jr., D.O.04/03/2023 1:40 PM Dictation Location: [facility] Transcribed By: [facility] 04/03/23 1340 Dictated By: Leandro Cleary Jr, DO 04/03/23 1334 Signed By: 04/03/23 1340 [facility] PROF 14(COMP METB)on 023 Albumin [Mass/Vol] 3.9 g/dL Normal 3.4-5.0 [facility] Comment on above: Performed By: #### B MP #### [facility] [address] [place] [address] Dr. Duy James Albumin/Globulin [Mass ratio] 1.1 {ratio} Normal [facility] Comment on above: Performed By: #### B MP #### [facility] [address] [place] [address] Dr. Duy James ALP [Catalytic activity/Vol] 70 U/L Normal 46-116 [facility] Comment on above: Performed By: #### B MP #### [facility] [address] [place] [address] [address] Duy James ALT [Catalytic activity/Vol] 26 U/L Normal 16-63 [facility] Comment on above: Performed By: #### B MP #### [facility] [address] [place] [address] [address] Duy James Anion gap [Moles/Vol] 13.1 mmol/L Normal [facility] Comment on above: Performed By: #### B MP #### [facility] [address] [place] [address] [address] Duy James AST [Catalytic activity/Vol] 17 U/L Normal 15-37 [facility] Comment on above: Performed By: #### B MP #### [facility] [address] [place] [address] [address] Duy James Bilirubin [Mass/Vol] 0.6 mg/dL Normal 0.2-1.0 [facility] Comment on above: Performed By: #### B MP #### [facility] [address] [place] [address] [address] Duy James Calcium [Mass/Vol] 9.0 mg/dL Normal 8.5-10.1 [facility] Comment on above: Performed By: #### B MP #### [facility] [address] [place] [address] [address] Duy James Chloride [Moles/Vol] 106 mmol/L Normal 98-107 [facility] Comment on above: Performed By: #### B MP #### [facility] [address] [place] [address] [address] Duy James CO2 [Moles/Vol] 28.5 mmol/L Normal 21.0-32.0 [facility] Comment on above: Performed By: #### B MP #### [facility] [address] [place] [address] [address] Duy James Creatinine [Mass/Vol] 1.22 mg/dL Normal 0.70-1.30 [facility] Comment on above: Performed By: #### B MP #### [facility] [address] [address] [address] Duy James EGFR-AF LUXEMBOURGER >60 Normal >=60 [facility] Comment on above: Performed By: #### B MP #### [facility] [address] [place] [address] [address] Duy James EGFR-NON AF LUXEMBOURGER 59 mL/min/1.73m2 Critically low >=60 [facility] Comment on above: Performed By: #### B MP #### [facility] [address] [place] [address] [address] Duy James Globulin (S) [Mass/Vol] 3.7 g/dL Normal [facility] Comment on above: Performed By: #### B MP #### [facility] [address] [address] [address] Duy James Glucose [Mass/Vol] 113 mg/dL Critically high 74-106 [facility] Comment on above: Performed By: #### B MP #### [facility] [address] [address] [address] Duy James Potassium [Moles/Vol] 4.6 mmol/L Normal 3.5-5.1 [facility] Comment on above: Performed By: #### B MP #### [facility] [address] [place] [address] Dr. Duy James Protein [Mass/Vol] 7.6 g/dL Normal 6.4-8.2 [facility] Comment on above: Performed By: #### B MP #### [facility] [address] [address] [address] Duy James Sodium [Moles/Vol] 143 mmol/L Normal 136-145 [facility] Comment on above: Performed By: #### B MP #### [facility] [address] [place] [address] Dr. Duy James Urea nitrogen [Mass/Vol] 12.0 mg/dL Normal 7.0-18.0 [facility] Comment on above: Performed By: #### B MP #### [facility] [address] [address] [address] Duy James Urea nitrogen/Creatinine [Mass ratio] 9.8 mg/mg Normal [facility] Comment on above: Performed By: #### B MP #### [facility] [address] [place] [address] Dr. Duy James XR CHEST 2 Von [...] LIDYA VALE Date: 2022-11-07 09:16 Normal [facility] CULTURE BLOODon 08-30-2022 Microscopic examination of [...] Trimethoprim/Sulfame thoxazole <=10 S F Normal [facility] Comment on above: Performed By: #### B MP #### [facility] [address] [place] [address] Dr. Duy James HEPATITIS PANEL, ACUTEon HBsAg Screen Negative Normal Negative [facility] Comment on above: Performed By: #### C BC #### [facility] [address] [place] [address] Dr. Duy James HCV AB Non-Reactive Normal Non Reactive [facility] Comment on above: Performed By: #### C BC #### [facility] [address] [place] [address] Dr. Duy James Hep A Ab, IgM Negative Normal Negative [facility] Comment on above: Performed By: #### C BC #### [facility] [address] [place] [address] Dr. Duy James Hep B Core Ab, IgM Negative Normal Negative [facility] Comment on above: Performed By: #### C BC #### [facility] [address] [place] [address] Dr. Duy James Interpretation: Comment Normal [facility] Comment on above: Result Comment: Not infected with HCV unless early or acute infection is suspected (which may be delayed in an immunocompromised individual), or other evidence exists to indicate HCV infection. Performed By: #### C BC #### [facility] [address] [place] [address] Dr. Duy James CBC W MANUAL DIFFon 08-29-19 24 ATYPICAL LYMPH # Normal [facility] Comment on above: Performed By: #### B MP #### [facility] [address] [place] [address] Dr. Duy James ATYPICAL LYMPH % Normal [facility] Comment on above: Performed By: #### B MP #### [facility] [address] [place] [address] Dr. Duy James BAND # 0.0 103/ul Normal 0.0-0.3 [facility] Comment on above: Performed By: #### B MP #### [facility] [address] [place] [address] Dr. Duy James BAND % 0 % Normal 0-5 [facility] Comment on above: Performed By: #### B MP #### [facility] [address] [place] [address] Dr. Duy James BASOM # 0.00 103/ul Normal 0.00-0.10 [facility] Comment on above: Performed By: #### B MP #### [facility] [address] [place] [address] Dr. Duy James BASOM % 0.0 % Critically low 0.2-2.[address] [facility] Comment on above: Performed By: #### B MP #### [facility] [address] [place] [address] Dr. Duy James BLAST # Normal [facility] Comment on above: Performed By: #### B MP #### [facility] [address] [place] [address] Dr. Duy James BLAST % Normal [facility] Comment on above: Performed By: #### B MP #### [facility] [address] [address] [address] Duy James CORRECTED WBC Normal 4.0-11.0 [facility] Comment on above: Performed By: #### B MP #### [facility] [address] [address] [address] Duy James EOS # 0.00 103/ul Normal 0.00-0.70 [facility] Comment on above: Performed By: #### B MP #### [facility] [address] [address] [address] Duy James EOS% 0.0 % Critically low 0.9-7.0 [facility] Comment on above: Performed By: #### B MP #### [facility] [address] [place] [address] Dr. Duy James HCT 36.8 % Critically low 42.0-54.0 [facility] Comment on above: Performed By: #### B MP #### [facility] [address] [place] [address] Dr. Duy James HGB 12.0 g/dl Critically low 14.0-18.0 [facility] Comment on above: Performed By: #### B MP #### [facility] [address] [place] [address] Dr. Duy James LYMPHM # 0.47 103/ul Critically low 1.20-3.80 [facility] Comment on above: Performed By: #### B MP #### [facility] [address] [address] [address] Duy James LYMPHM% 6.0 % Critically low 20.5-60.[address] [facility] Comment on above: Performed By: #### B MP #### [facility] [address] [place] [address] Dr. Duy James MCH 28.4 pg Normal 25.9-34.0 [facility] Comment on above: Performed By: #### B MP #### [facility] [address] [place] [address] Dr. Duy James MCHC 32.6 g/dl Normal 29.9-35.2 [facility] Comment on above: Performed By: #### B MP #### [facility] [address] [place] [address] Dr. Duy James MCV 87.0 fL Normal 80.0-94.0 [facility] Comment on above: Performed By: #### B MP #### [facility] [address] [place] [address] Dr. Duy James METAMYELOCYTE # Normal [facility] Comment on above: Performed By: #### B MP #### [facility] [address] [place] [address] Dr. Duy James METAMYELOCYTE % Normal [facility] Comment on above: Performed By: #### B MP #### [facility] [address] [place] [address] Dr. Duy James MONOM# 0.40 103/ul Normal 0.30-0.80 [facility] Comment on above: Performed By: #### B MP #### [facility] [address] [place] [address] Dr. Duy James MONOM% 5.0 % Normal 1.7-12.0 [facility] Comment on above: Performed By: #### B MP #### [facility] [address] [place] [address] Dr. Duy James MPV 10.2 fL Normal 9.5-13.5 [facility] Comment on above: Performed By: #### B MP #### [facility] [address] [place] [address] Dr. Duy James MYELOCYTE # Normal [facility] Comment on above: Performed By: #### B MP #### [facility] [address] [place] [address] Dr. Duy James MYELOCYTE % Normal [facility] Comment on above: Performed By: #### B MP #### [facility] [address] [place] [address] Dr. Duy James NRBC Normal [facility] Comment on above: Performed By: #### B MP #### [facility] [address] [address] [address] Duy James PLT 205 103/ul Normal 150-450 [facility] Comment on above: Performed By: #### B MP #### [facility] [address] [place] [address] Dr. Duy James RBC 4.23 106/ul Critically low 4.70-6.10 [facility] Comment on above: Performed By: #### B MP #### [facility] [address] [place] [address] Dr. Duy James RDW 13.3 % Normal 11.0-15.0 [facility] Comment on above: Performed By: #### B MP #### [facility] [address] [place] [address] Dr. Duy James SEG # 7.03 103/ul Critically high 1.40-6.50 [facility] Comment on above: Performed By: #### B MP #### [facility] [address] [place] [address] Dr. Duy James SEG % 89.0 % Critically high 43.0-75.0 [facility] Comment on above: Performed By: #### B MP #### [facility] [address] [place] [address] Dr. Duy James WBC 7.9 103/ul Normal 4.0-11.0 [facility] Comment on above: Performed By: #### B MP #### [facility] [address] [place] [address] Dr. Duy James PROF 14(COMP METB)on 023 Albumin [Mass/Vol] 3.4 g/dL Normal 3.4-5.0 [facility] Comment on above: Performed By: #### C BC #### [facility] [address] [place] [address] Dr. Duy James Albumin/Globulin [Mass ratio] 1.0 {ratio} Normal [facility] Comment on above: Performed By: #### C BC #### [facility] [address] [place] [address] Dr. Duy James ALP [Catalytic activity/Vol] 73 U/L Normal 46-116 [facility] Comment on above: Performed By: #### C BC #### [facility] [address] [address] [address] Duy James ALT [Catalytic activity/Vol] 66 U/L Critically high 16-63 [facility] Comment on above: Performed By: #### C BC #### [facility] [address] [address] [address] Duy James Anion gap [Moles/Vol] 10.6 mmol/L Normal [facility] Comment on above: Performed By: #### C BC #### [facility] [address] [place] [address] Dr. Dyu James AST [Catalytic activity/Vol] 26 U/L Normal 15-37 [facility] Comment on above: Performed By: #### C BC #### [facility] [address] [place] [address] Dr. Duy James Bilirubin [Mass/Vol] 0.3 mg/dL Normal 0.2-1.0 [facility] Comment on above: Performed By: #### C BC #### [facility] [address] [place] [address] Dr. Duy James Calcium [Mass/Vol] 8.9 mg/dL Normal 8.5-10.1 [facility] Comment on above: Performed By: #### C BC #### [facility] [address] [address] [address] Duy James Chloride [Moles/Vol] 106 mmol/L Normal 98-107 [facility] Comment on above: Performed By: #### C BC #### [facility] [address] [address] [address] Duy James CO2 [Moles/Vol] 29.3 mmol/L Normal 21.0-32.0 [facility] Comment on above: Performed By: #### C BC #### [facility] [address] [address] [address] Duy James Creatinine [Mass/Vol] 1.12 mg/dL Normal 0.70-1.30 [facility] Comment on above: Performed By: #### C BC #### [facility] [address] [address] [address] Duy James EGFR-AF LUXEMBOURGER >60 Normal >=60 [facility] Comment on above: Performed By: #### C BC #### [facility] [address] [address] [address] Duy James EGFR-NON AF LUXEMBOURGER >60 Normal >=60 [facility] Comment on above: Performed By: #### C BC #### [facility] [address] [address] [address] Duy James Globulin (S) [Mass/Vol] 3.3 g/dL Normal [facility] Comment on above: Performed By: #### C BC #### [facility] [address] [place] [address] Dr. Duy James Glucose [Mass/Vol] 157 mg/dL Critically high 74-106 [facility] Comment on above: Performed By: #### C BC #### [facility] [address] [address] [address] Duy James Potassium [Moles/Vol] 4.9 mmol/L Normal 3.5-5.1 [facility] Comment on above: Performed By: #### C BC #### [facility] [address] [place] [address] Dr. Duy James Protein [Mass/Vol] 6.7 g/dL Normal 6.4-8.2 [facility] Comment on above: Performed By: #### C BC #### [facility] [address] [address] [address] Duy James Sodium [Moles/Vol] 141 mmol/L Normal 136-145 [facility] Comment on above: Performed By: #### C BC #### [facility] [address] [address] [address] Duy James Urea nitrogen [Mass/Vol] 22.0 mg/dL Critically high 7.0-18.0 [facility] Comment on above: Performed By: #### C BC #### [facility] [address] [place] [address] Dr. Duy James Urea nitrogen/Creatinine [Mass ratio] 19.6 mg/mg Normal [facility] Comment on above: Performed By: #### C BC #### [facility] [address] [place] [address] Dr. Duy James MAGNESIUMon 08-27-2022 Magnesium [Mass/Vol] 2.0 mg/dL Normal 1.8-2.4 [facility] Comment on above: Performed By: #### C MP, MG #### [facility] [address] [place] [address] Dr. Duy James PROF 14(COMP METB)on 023 Albumin [Mass/Vol] 3.6 g/dL Normal 3.4-5.0 [facility] Comment on above: Performed By: #### C MP, MG #### [facility] [address] [place] [address] Dr. Duy James Albumin/Globulin [Mass ratio] 0.9 {ratio} Normal [facility] Comment on above: Performed By: #### C MP, MG #### [facility] [address] [place] [address] Dr. Duy James ALP [Catalytic activity/Vol] 79 U/L Normal 46-116 [facility] Comment on above: Performed By: #### C MP, MG #### [facility] [address] [place] [address] Dr. Duy aJmes ALT [Catalytic activity/Vol] 86 U/L Critically high 16-63 [facility] Comment on above: Performed By: #### C MP, MG #### [facility] [address] [place] [address] Dr. Duy James Anion gap [Moles/Vol] 14.3 mmol/L Normal [facility] Comment on above: Performed By: #### C MP, MG #### [facility] [address] [place] [address] Dr. Duy James AST [Catalytic activity/Vol] 38 U/L Critically high 15-37 [facility] Comment on above: Performed By: #### C MP, MG #### [facility] [address] [address] [address] Duy James Bilirubin [Mass/Vol] 0.4 mg/dL Normal 0.2-1.0 [facility] Comment on above: Performed By: #### C MP, MG #### [facility] [address] [place] [address] Dr. Duy James Calcium [Mass/Vol] 9.3 mg/dL Normal 8.5-10.1 [facility] Comment on above: Performed By: #### C MP, MG #### [facility] [address] [place] [address] Dr. Duy James Chloride [Moles/Vol] 106 mmol/L Normal 98-107 [facility] Comment on above: Performed By: #### C MP, MG #### [facility] [address] [place] [address] Dr. Duy James CO2 [Moles/Vol] 27.1 mmol/L Normal 21.0-32.0 [facility] Comment on above: Performed By: #### C MP, MG #### [facility] [address] [place] [address] Dr. Duy James Creatinine [Mass/Vol] 1.17 mg/dL Normal 0.70-1.30 [facility] Comment on above: Performed By: #### C MP, MG #### [facility] [address] [place] [address] Dr. Duy James EGFR-AF LUXEMBOURGER >60 Normal >=60 [facility] Comment on above: Performed By: #### C MP, MG #### [facility] [address] [place] [address] Dr. Duy James EGFR-NON AF LUXEMBOURGER >60 Normal >=60 [facility] Comment on above: Performed By: #### C MP, MG #### [facility] [address] [place] [address] Dr. Duy James Globulin (S) [Mass/Vol] 3.8 g/dL Normal [facility] Comment on above: Performed By: #### C MP, MG #### [facility] [address] [address] [address] Duy James Glucose [Mass/Vol] 163 mg/dL Critically high 74-106 [facility] Comment on above: Performed By: #### C MP, MG #### [facility] [address] [place] [address] Dr. Duy James Potassium [Moles/Vol] 5.4 mmol/L Critically high 3.5-5.1 [facility] Comment on above: Performed By: #### C MP, MG #### [facility] [address] [place] [address] Dr. Duy James Protein [Mass/Vol] 7.4 g/dL Normal 6.4-8.2 [facility] Comment on above: Performed By: #### C MP, MG #### [facility] [address] [place] [address] Dr. Duy James Sodium [Moles/Vol] 142 mmol/L Normal 136-145 [facility] Comment on above: Performed By: #### C MP, MG #### [facility] [address] [place] [address] Dr. Duy James Urea nitrogen [Mass/Vol] 16.0 mg/dL Normal 7.0-18.0 [facility] Comment on above: Performed By: #### C MP, MG #### [facility] [address] [place] [address] Dr. Duy James Urea nitrogen/Creatinine [Mass ratio] 13.7 mg/mg Normal [facility] Comment on above: Performed By: #### C MP, MG #### [facility] [address] [place] [address] Dr. Duy James PROF CHEM 8 (BAS METB)on Anion gap [Moles/Vol] 15.1 mmol/L Normal [facility] Comment on above: Performed By: #### B MP #### [facility] [address] [place] [address] Dr. Duy James Calcium [Mass/Vol] 9.0 mg/dL Normal 8.5-10.1 [facility] Comment on above: Performed By: #### B MP #### [facility] [address] [place] [address] Dr. Duy James Chloride [Moles/Vol] 105 mmol/L Normal 98-107 [facility] Comment on above: Performed By: #### B MP #### [facility] [address] [address] [address] Duy James CO2 [Moles/Vol] 27.0 mmol/L Normal 21.0-32.0 [facility] Comment on above: Performed By: #### B MP #### [facility] [address] [place] [address] Dr. Duy James Creatinine [Mass/Vol] 1.20 mg/dL Normal 0.70-1.30 [facility] Comment on above: Performed By: #### B MP #### [facility] [address] [place] [address] Dr. Duy James EGFR-AF LUXEMBOURGER >60 Normal >=60 [facility] Comment on above: Performed By: #### B MP #### [facility] [address] [place] [address] Dr. Duy James EGFR-NON AF LUXEMBOURGER >60 Normal >=60 [facility] Comment on above: Performed By: #### B MP #### [facility] [address] [place] [address] Dr. Duy James Glucose [Mass/Vol] 155 mg/dL Critically high 74-106 [facility] Comment on above: Performed By: #### B MP #### [facility] [address] [place] [address] Dr. Duy James Potassium [Moles/Vol] 5.1 mmol/L Normal 3.5-5.1 [facility] Comment on above: Performed By: #### B MP #### [facility] [address] [place] [address] Dr. Duy James Sodium [Moles/Vol] 142 mmol/L Normal 136-145 [facility] Comment on above: Performed By: #### B MP #### [facility] [address] [address] [address] Duy James Urea nitrogen [Mass/Vol] 19.0 mg/dL Critically high 7.0-18.0 [facility] Comment on above: Performed By: #### B MP #### [facility] [address] [address] [address] Duy James Urea nitrogen/Creatinine [Mass ratio] 15.8 mg/mg Normal [facility] Comment on above: Performed By: #### B MP #### [facility] [id number] Duy James XR CHEST 2 Von [...] GRACIE DEAN Date: 2022-08-27 08:27 Normal [facility] BLOOD CULTURE ID PANELon A. baumannii Not detected Normal NOT DETECTED [facility] Comment on above: Performed By: #### C BC #### [facility] [address] [place] [address] Dr. Duy James Bacteriodes fragilis Not detected Normal NOT DETECTED [facility] Comment on above: Performed By: #### C BC #### [facility] [address] [address] [address] Duy James BCID CONTROLS PASSED Normal [facility] Comment on above: Performed By: #### C BC #### [facility] [address] [address] [address] Duy James BCIDBTHD BLOOD CULTURE BOTTLE INFORMATION Normal [facility] Comment on above: Performed By: #### C BC #### [facility] [address] [place] [address] Dr. Duy James BCIDHD1 ANTIMICROBIAL RESISTANCE GENES Normal [facility] Comment on above: Performed By: #### C BC #### [facility] [address] [place] [address] Dr. Duy James BCIDHD2 SEE BELOW [facility] Comment on above: Result Comment: Note : Antimicrobial resitance can occur via multiple mechanisms. A Not Detected result for the [employer] antomicrobial resistance gene assays does not indicate antimicrobial susceptibility. Subculturing is required for species identification and susceptibility testing of isolates. Performed By: #### C BC #### [facility] [address] [place] [address] Dr. Duy James BCIDHD3 Positive [facility] Comment on above: Performed By: #### C BC #### [facility] [address] [place] [address] Dr. Duy James BCIDHD4 Negative [facility] Comment on above: Performed By: #### C BC #### [facility] [address] [place] [address] Dr. Duy James BCIDHD5 YEAST Normal [facility] Comment on above: Performed By: #### C BC #### [facility] [address] [place] [address] Dr. Duy James Bottle Set: Set 1 [facility] Comment on above: Performed By: #### C BC #### [facility] [address] [place] [address] Dr. Duy James Bottle: Anaerobic Normal [facility] Comment on above: Performed By: #### C BC #### [facility] [address] [place] [address] Dr. Duy James C. neoformans/gattii Not detected Normal NOT DETECTED [facility] Comment on above: Performed By: #### C BC #### [facility] [address] [place] [address] Dr. Duy James Gala albicans Not detected Normal NOT DETECTED [facility] Comment on above: Performed By: #### C BC #### [facility] [address] [place] [address] Dr. Duy James Gala auris Not detected Normal NOT DETECTED [facility] Comment on above: Performed By: #### C BC #### [facility] [address] [place] [address] Dr. Duy James Gala glabrata Not detected Normal NOT DETECTED [facility] Comment on above: Performed By: #### C BC #### [facility] [address] [place] [address] Dr. Duy James Gala Krusei Not detected Normal NOT DETECTED [facility] Comment on above: Performed By: #### C BC #### [facility] [address] [place] [address] Dr. Duy James Gala Parapsilosis Not detected Normal NOT DETECTED [facility] Comment on above: Performed By: #### C BC #### [facility] [address] [place] [address] Dr. Duy James Gala Tropicalis Not detected Normal NOT DETECTED [facility] Comment on above: Performed By: #### C BC #### [facility] [address] [place] [address] Dr. Duy James CTX-M Resistant Gene Not Applicable Normal NOT DETECTE D [facility] Comment on above: Performed By: #### C BC #### [facility] [address] [place] [address] Dr. Duy James E. Cloacae complex Not detected Normal NOT DETECTED [facility] Comment on above: Performed By: #### C BC #### [facility] [address] [place] [address] Dr. Duy James E. faecalis Not detected Normal NOT DETECTED [facility] Comment on above: Performed By: #### C BC #### [facility] [address] [place] [address] Dr. Duy James E. faecium Not detected Normal NOT DETECTED [facility] Comment on above: Performed By: #### C BC #### [facility] [address] [place] [address] Dr. Duy James Enterobacteriaceae Not detected Normal NOT DETECTED [facility] Comment on above: Performed By: #### C BC #### [facility] [address] [place] [address] Dr. Duy James Escherichia coli Not detected Normal NOT DETECTED [facility] Comment on above: Performed By: #### C BC #### [facility] [address] [place] [address] Dr. Duy James H. influenzae Not detected Normal NOT DETECTED [facility] Comment on above: Performed By: #### C BC #### [facility] [address] [place] [address] Dr. Duy James IMP Resistant Gene Not Applicable Normal NOT DETECTED [facility] Comment on above: Performed By: #### C BC #### [facility] [address] [place] [address] Dr. Duy James K. oxytoca Not detected Normal NOT DETECTED [facility] Comment on above: Performed By: #### C BC #### [facility] [address] [place] [address] Dr. Duy James K. pneumoniae Not detected Normal NOT DETECTED [facility] Comment on above: Performed By: #### C BC #### [facility] [address] [place] [address] Dr. Duy James Klebsiella aerogenes Not detected Normal NOT DETECTED [facility] Comment on above: Performed By: #### C BC #### [facility] [address] [place] [address] Dr. Duy James KPC Resistant Gene Not Applicable Normal NOT DETECTED [facility] Comment on above: Performed By: #### C BC #### [facility] [address] [place] [address] Dr. Duy James List. monocytogenes Not detected Normal NOT DETECTED [facility] Comment on above: Performed By: #### C BC #### [facility] [address] [place] [address] Dr. Duy James Mcr-1 Resistant Gene Not Applicable Normal NOT DETECTE D [facility] Comment on above: Performed By: #### C BC #### [facility] [address] [place] [address] Dr. Duy James mecA/C Not Applicable Normal NOT DETECTED [facility] Comment on above: Performed By: #### C BC #### [facility] [address] [place] [address] Dr. Duy James mecA/C MREJ Not Applicable Normal NOT DETECTED [facility] Comment on above: Performed By: #### C BC #### [facility] [address] [place] [address] Dr. Duy James N. meningitidis Not detected Normal NOT DETECTED [facility] Comment on above: Performed By: #### C BC #### [facility] [address] [place] [address] Dr. Duy James NDM Resistant Gene Not Applicable Normal NOT DETECTED [facility] Comment on above: Performed By: #### C BC #### [facility] [address] [place] [address] Dr. Duy James Oxa-48-like Not Applicable Normal NOT DETECTED [facility] Comment on above: Performed By: #### C BC #### [facility] [address] [place] [address] Dr. Duy James Proteus Not detected Normal NOT DETECTED The [facility] Comment on above: Performed By: #### C BC #### [facility] [address] [place] [address] Dr. Duy James Pseud. aeruginosa Not detected Normal NOT DETECTED [facility] Comment on above: Performed By: #### C BC #### [facility] [address] [place] [address] Dr. Duy James S. maltophilia Not detected Normal NOT DETECTED The [facility] Comment on above: Performed By: #### C BC #### [facility] [address] [place] [address] Dr. Duy James Salmonella Not detected Normal NOT DETECTED The [facility] Comment on above: Performed By: #### C BC #### [facility] [address] [place] [address] Dr. Duy James Seratia marcescens Not detected Normal NOT DETECTED [facility] Comment on above: Performed By: #### C BC #### [facility] [address] [place] [address] Dr. Duy James Site: L a/c Normal [facility] Comment on above: Performed By: #### C BC #### [facility] [address] [place] [address] Dr. Duy James Staph. aureus Not detected Normal NOT DETECTED [facility] Comment on above: Performed By: #### C BC #### [facility] [address] [place] [address] Dr. Duy James Staph. epidermidis Not detected Normal NOT DETECTED [facility] Comment on above: Performed By: #### C BC #### [facility] [address] [place] [address] Dr. Duy James Staph. lugdunensis Not detected Normal NOT DETECTED [facility] Comment on above: Performed By: #### C BC #### [facility] [address] [place] [address] Dr. Duy James Staphylococcus Detected Critically abnormal NOT DETECTED [facility] Comment on above: Performed By: #### C BC #### [facility] [address] [place] [address] Dr. Duy James Strep. agalactiae Not detected Normal NOT DETECTED [facility] Comment on above: Performed By: #### C BC #### [facility] [address] [place] [address] Dr. Duy James Strep. pneumoniae Not detected Normal NOT DETECTED [facility] Comment on above: Performed By: #### C BC #### [facility] [address] [place] [address] Dr. Duy James Strep. pyogenes Not detected Normal NOT DETECTED [facility] Comment on above: Performed By: #### C BC #### [facility] [address] [place] [address] Dr. Duy James Streptococcus Not detected Normal NOT DETECTED [facility] Comment on above: Performed By: #### C BC #### [facility] [address] [place] [address] Dr. Duy James Cullen/B Resist. Gene Not Applicable Normal NOT DETECTED [facility] Comment on above: Performed By: #### C BC #### [facility] [address] [place] [address] Dr. Duy James VIM Resistant Gene Not Applicable Normal NOT DETECTED [facility] Comment on above: Performed By: #### C BC #### [facility] [address] [place] [address] Dr. Duy James BLOOD GASES BTYon 08-26-2022 02 MODE NASAL CANNULA Normal [facility] Comment on above: Performed By: #### C BC #### [facility] [address] [place] [address] Dr. Duy James ALLENS TEST Positive [facility] Comment on above: Performed By: #### C BC #### [facility] [address] [place] [address] Dr. Duy James Base excess Calc (Bld) [Moles/Vol] -1.3000 mmol/L Normal -2.0-2.0 [facility] Comment on above: Performed By: #### C BC #### [facility] [address] [place] [address] Dr. Duy James BIPAP PRESSURE [facility] Comment on above: Performed By: #### C BC #### [facility] [address] [place] [address] Dr. Duy James CPAP [facility] Comment on above: Performed By: #### C BC #### [facility] [address] [place] [address] Dr. Duy James FIO2 Normal [facility] Comment on above: Performed By: #### C BC #### [facility] [address] [place] [address] Dr. Duy James HCO3 (Bld) [Moles/Vol] 24.5 mmol/L Normal 22.0-26.0 [facility] Comment on above: Performed By: #### C BC #### [facility] [address] [place] [address] Dr. Duy James LPM 2 Normal [facility] Comment on above: Performed By: #### C BC #### [facility] [address] [address] [address] Duy James MINUTE VOLUME Normal [facility] Comment on above: Performed By: #### C BC #### [facility] [address] [place] [address] Dr. Duy James Oxygen (Bld) [Partial pressure] 64.3 mm[Hg] Critically low 80.0-100.0 [facility] Comment on above: Performed By: #### C BC #### [facility] [address] [place] [address] Dr. Duy James Oxygen saturation in Blood 92.0 % Critically low 95.0-100.0 [facility] Comment on above: Performed By: #### C BC #### [facility] [address] [place] [address] Dr. Duy James PCO2 45.3 mmHg Critically high 35.0-45.0 [facility] Comment on above: Performed By: #### C BC #### [facility] [address] [place] [address] Dr. Duy James PEEP [facility] Comment on above: Performed By: #### C BC #### [facility] [address] [place] [address] Dr. Duy James pH (Bld) 7.341 [pH] Critically low 7.350-7.450 [facility] Comment on above: Performed By: #### C BC #### [facility] [address] [place] [address] Dr. Duy James PIP [facility] Comment on above: Performed By: #### C BC #### [facility] [address] [place] [address] Dr. Duy James PS [facility] Comment on above: Performed By: #### C BC #### [facility] [address] [place] [address] Dr. Duy James PUNCTURE SITE LR [facility] Comment on above: Performed By: #### C BC #### [facility] [address] [place] [address] Dr. Duy James RATE [facility] Comment on above: Performed By: #### C BC #### [facility] [address] [place] [address] Dr. Duy James VENT MODE Normal [facility] Comment on above: Performed By: #### C BC #### [facility] [address] [place] [address] Dr. Duy James [facility] Comment on above: Performed By: #### C BC #### [facility] [address] [place] [address] Dr. Duy James BNPon 08-26-2022 Natriuretic peptide B (Bld) [Mass/Vol] 2516.0 pg/mL Critically high <=900.0 [facility] Comment on above: Performed By: #### B MP #### [facility] [address] [place] [address] Dr. Duy James CBC AUTO DIFFon 08-26-2022 BASO # 0.1 103/ul Normal 0.0-0.1 [facility] Comment on above: Performed By: #### C BC #### [facility] [address] [place] [address] Dr. Duy James Basophils/100 WBC (Bld) 1.2 % Normal 0.2-2.0 [facility] Comment on above: Performed By: #### C BC #### [facility] [address] [place] [address] Dr. Duy James EO # 0.4 103/ul Normal 0.0-0.7 [facility] Comment on above: Performed By: #### C BC #### [facility] [address] [place] [address] Dr. Duy James Eosinophils/100 WBC (Bld) 4.6 % Normal 0.9-7.0 [facility] Comment on above: Performed By: #### C BC #### [facility] [address] [place] [address] Dr. Duy James Erythrocyte distribution width (RBC) [Ratio] 13.2 % Normal 11.0-15.0 [facility] Comment on above: Performed By: #### C BC #### [facility] [address] [place] [address] Dr. Duy James Hematocrit (Bld) [Volume fraction] 41.1 % Critically low 42.0-54.0 [facility] Comment on above: Performed By: #### C BC #### [facility] [address] [place] [address] Dr. Duy James Hemoglobin (Bld) [Mass/Vol] 13.8 g/dL Critically low 14.0-18.0 [facility] Comment on above: Performed By: #### C BC #### [facility] [address] [place] [address] Dr. Duy James IG # 0.03 10e3/ul Normal 0.00-0.03 [facility] Comment on above: Performed By: #### C BC #### [facility] [address] [place] [address] Dr. Duy James IG % 0.4 % Normal 0.0-0.5 [facility] Comment on above: Performed By: #### C BC #### [facility] [address] [place] [address] Dr. Duy James LYMPH # 2.9 103/ul Normal 1.2-3.8 [facility] Comment on above: Performed By: #### C BC #### [facility] [address] [place] [address] Dr. Duy James Lymphocytes/100 WBC (Bld) 35.3 % Normal 20.5-60.0 [facility] Comment on above: Performed By: #### C BC #### [facility] [address] [place] [address] Dr. Duy James MANUAL DIFF REQ NO Normal [facility] Comment on above: Performed By: #### C BC #### [facility] [address] [place] [address] Dr. Duy James MCH (RBC) [Entitic mass] 28.9 pg Normal 25.9-34.0 [facility] Comment on above: Performed By: #### C BC #### [facility] [address] [place] [address] Dr. Duy James MCHC (RBC) [Mass/Vol] 33.6 g/dL Normal 29.9-35.2 [facility] Comment on above: Performed By: #### C BC #### [facility] [address] [place] [address] Dr. Duy James MCV (RBC) [Entitic vol] 86.2 fL Normal 80.0-94.0 [facility] Comment on above: Performed By: #### C BC #### [facility] [address] [place] [address] Dr. Duy James MONO # 0.6 103/ul Normal 0.3-0.8 [facility] Comment on above: Performed By: #### C BC #### [facility] [address] [place] [address] Dr. Duy James Monocytes/100 WBC (Bld) 7.1 % Normal 1.7-12.0 [facility] Comment on above: Performed By: #### C BC #### [facility] [address] [place] [address] Dr. Duy James NEUT # 4.2 103/ul Normal 1.4-6.5 [facility] Comment on above: Performed By: #### C BC #### [facility] [address] [place] [address] Dr. Duy aJmes Neutrophils/100 WBC (Bld) 51.4 % Normal 43.0-75.0 [facility] Comment on above: Performed By: #### C BC #### [facility] [address] [place] [address] Dr. Duy James Platelet mean volume (Bld) [Entitic vol] 10.1 fL Normal 9.5-13.5 [facility] Comment on above: Performed By: #### C BC #### [facility] [address] [place] [address] Dr. Duy James PLT 264 103/ul Normal 150-450 [facility] Comment on above: Performed By: #### C BC #### [facility] [address] [place] [address] Dr. Duy James RBC 4.77 106/ul Normal 4.70-6.10 [facility] Comment on above: Performed By: #### C BC #### [facility] [address] [place] [address] Dr. Duy James WBC 8.2 103/ul Normal 4.0-11.0 [facility] Comment on above: Performed By: #### C BC #### [facility] [address] [place] [address] Dr. Duy James CTA CHEST WO W [...] CODY WAY Date: 2022-08-26 20:19 Normal [facility] CULTURE BLOODon 08-26-2022 Microscopic examination of blood, culture Culture Observations: NO GROWTH AT 5 DAYS. Normal [facility] Comment on above: Performed By: #### B MP #### [facility] [address] [place] [address] Dr. Duy James Covid-19 PCR ([facility])on SARS-CoV-2 (COVID-19) RNA RICKY+probe Ql (Unsp spec) Not detected Normal NOT DETECTED [facility] Comment on above: Result Comment: When [...] for this test is supported by the [place] of [employer] and Human Service's declaration that [...] used). Performed By: #### C BC #### [facility] [address] [place] [address] Dr. Duy James D-DIMERon 08-26-2022 D-DIMER 1.10 mg/L FEU Critically high <=0.59 The [facility] Comment on above: Performed By: #### D DIM #### [facility] [address] [place] [address] Dr. Duy James D-DIMER COMMENTS SEE BELOW Normal [facility] Comment on above: Result Comment: Incr [...] hospitalization. Performed By: #### D DIM #### [facility] [address] [place] [address] Dr. Duy James INFLUENZA A AND B AGon 08-26 INFLUANEGH SEE BELOW Normal [facility] Comment on above: Result Comment: Nega tive for Flu A protein angiten. Infection due to Flu A cannot be ruled out. Flu A angiten in the sample may be below the detection limit of the test. Performed By: #### I NFLUAB #### [facility] [address] [place] [address] Dr. Duy James [facility] SEE BELOW Normal [facility] Comment on above: Result Comment: Nega tive for Flu B protein antigen. Infection due to Flu B cannot be ruled out. Flu B antigen in the sample may be below the detection limit of the test. Performed By: #### I NFLUAB #### [facility] [address] [place] [address] Dr. Duy James INFLUENZA A AG Negative Normal NEGATIVE SEE COMMENT [facility] Comment on above: Performed By: #### I NFLUAB #### [facility] [address] [place] [address] Dr. Duy James INFLUENZA B AG Negative Normal NEGATIVE SEE COMMENT [facility] Comment on above: Performed By: #### I NFLUAB #### [facility] [address] [place] [address] Dr. Duy James LACTATE/LACTIC ACIDon 2022 Lactate [Moles/Vol] 1.8 mmol/L Normal 0.4-1.9 [facility] Comment on above: Performed By: #### L ACT #### [facility] [address] [place] [address] Dr. Duy James PROF 14(COMP METB)on 023 Albumin [Mass/Vol] 3.7 g/dL Normal 3.4-5.0 [facility] Comment on above: Performed By: #### B MIXER AND BLENDER, CMP, HSTROPN #### [facility] [address] [place] [address] Dr. Duy James Albumin/Globulin [Mass ratio] 1.0 {ratio} Normal [facility] Comment on above: Performed By: #### B MIXER AND BLENDER, CMP, HSTROPN #### [facility] [address] [place] [address] Dr. Duy James ALP [Catalytic activity/Vol] 84 U/L Normal 46-116 [facility] Comment on above: Performed By: #### B MIXER AND BLENDER, CMP, HSTROPN #### [facility] [address] [address] [address] Dyu James ALT [Catalytic activity/Vol] 103 U/L Critically high 16-63 [facility] Comment on above: Performed By: #### B MIXER AND BLENDER, CMP, HSTROPN #### [facility] [address] [address] [address] Duy James Anion gap [Moles/Vol] 15.5 mmol/L Normal Th [facility] Comment on above: Performed By: #### B MIXER AND BLENDER, CMP, HSTROPN #### [facility] [address] [address] [address] Duy James AST [Catalytic activity/Vol] 62 U/L Critically high 15-37 [facility] Comment on above: Performed By: #### B MIXER AND BLENDER, CMP, HSTROPN #### [facility] [address] [place] [address] Dr. Duy James Bilirubin [Mass/Vol] 0.3 mg/dL Normal 0.2-1.0 [facility] Comment on above: Performed By: #### B MIXER AND BLENDER, CMP, HSTROPN #### [facility] [address] [address] [address] Duy James Calcium [Mass/Vol] 8.8 mg/dL Normal 8.5-10.1 [facility] Comment on above: Performed By: #### B MIXER AND BLENDER, CMP, HSTROPN #### [facility] [address] [address] [address] Duy aJmes Chloride [Moles/Vol] 106 mmol/L Normal 98-107 [facility] Comment on above: Performed By: #### B MIXER AND BLENDER, CMP, HSTROPN #### [facility] [address] [address] [address] Duy James CO2 [Moles/Vol] 25.9 mmol/L Normal 21.0-32.0 [facility] Comment on above: Performed By: #### B MIXER AND BLENDER, CMP, HSTROPN #### [facility] [address] [address] [address] Duy James Creatinine [Mass/Vol] 1.32 mg/dL Critically high 0.70-1.30 [facility] Comment on above: Performed By: #### B MIXER AND BLENDER, CMP, HSTROPN #### [facility] [address] [address] [address] Duy James EGFR-AF LUXEMBOURGER >60 Normal >=60 [facility] Comment on above: Performed By: #### B MIXER AND BLENDER, CMP, HSTROPN #### [facility] [address] [address] [address] Duy James EGFR-NON AF LUXEMBOURGER 54 mL/min/1.73m2 Critically low >=60 [facility] Comment on above: Performed By: #### B MIXER AND BLENDER, CMP, HSTROPN #### [facility] [address] [place] [address] Dr. Duy James Globulin (S) [Mass/Vol] 3.6 g/dL Normal [facility] Comment on above: Performed By: #### B MIXER AND BLENDER, CMP, HSTROPN #### [facility] [address] [place] [address] Dr. Duy James Glucose [Mass/Vol] 146 mg/dL Critically high 74-106 T [facility] Comment on above: Performed By: #### B MIXER AND BLENDER, CMP, HSTROPN #### [facility] [address] [place] [address] Dr. Duy James Potassium [Moles/Vol] 4.4 mmol/L Normal 3.5-5.1 [facility] Comment on above: Performed By: #### B MIXER AND BLENDER, CMP, HSTROPN #### [facility] [address] [place] [address] Dr. Duy James Protein [Mass/Vol] 7.3 g/dL Normal 6.4-8.2 [facility] Comment on above: Performed By: #### B MIXER AND BLENDER, CMP, HSTROPN #### [facility] [address] [place] [address] Dr. Duy James Sodium [Moles/Vol] 143 mmol/L Normal 136-145 [facility] Comment on above: Performed By: #### B MIXER AND BLENDER, CMP, HSTROPN #### [facility] [address] [place] [address] Dr. Duy James Urea nitrogen [Mass/Vol] 15.0 mg/dL Normal 7.0-18.0 [facility] Comment on above: Performed By: #### B MIXER AND BLENDER, CMP, HSTROPN #### [facility] [address] [place] [address] Dr. Duy James Urea nitrogen/Creatinine [Mass ratio] 11.4 mg/mg Normal [facility] Comment on above: Performed By: #### B MIXER AND BLENDER, CMP, HSTROPN #### [facility] [address] [place] [address] Dr. Duy James TROPONIN, HIGH SENSITIVITYon 08-26-2022 HSTROP 41.1 pg/mL Normal 4.0-76.1 [facility] Comment on above: Result Comment: CUT- OFF POINTS HAVE BEEN ESTABLISHED BASED ON THE FOURTH UNIVERSAL DEFINITIONS OF MYOCARDIAL INFARCTION. THE UPPER REFERENCE LIMIT (URL) OF TROPONIN, DEFINED THE 99TH PERCENTILE OF cTnI DISTRIBUTION IN A REFERENCE POPULATION, HAS BEEN CONFIRMED THE DECISION THRESHOLD FOR [place] DIAGNOSIS. Performed By: #### B MP #### [facility] [address] [place] [address] Dr. Duy James CBC AUTO DIFFon 05-18-2022 BASO # 0.1 103/ul Normal 0.0-0.1 [facility] Comment on above: Performed By: #### C BC #### [facility] [address] [place] [address] Dr. Duy James Basophils/100 WBC (Bld) 1.5 % Normal 0.2-2.0 [facility] Comment on above: Performed By: #### C BC #### [facility] [address] [place] [address] Dr. Duy James EO # 0.3 103/ul Normal 0.0-0.7 [facility] Comment on above: Performed By: #### C BC #### [facility] [address] [place] [address] Dr. Duy James Eosinophils/100 WBC (Bld) 4.7 % Normal 0.9-7.0 [facility] Comment on above: Performed By: #### C BC #### [facility] [address] [place] [address] Dr. Duy James Erythrocyte distribution width (RBC) [Ratio] 12.8 % Normal 11.0-15.0 [facility] Comment on above: Performed By: #### C BC #### [facility] [address] [place] [address] Dr. Duy James Hematocrit (Bld) [Volume fraction] 39.1 % Critically low 42.0-54.0 [facility] Comment on above: Performed By: #### C BC #### [facility] [address] [place] [address] Dr. Duy James Hemoglobin (Bld) [Mass/Vol] 13.2 g/dL Critically low 14.0-18.0 [facility] Comment on above: Performed By: #### C BC #### [facility] [address] [place] [address] Dr. Duy James IG # 0.03 10e3/ul Normal 0.00-0.03 [facility] Comment on above: Performed By: #### C BC #### [facility] [address] [place] [address] Dr. Duy James IG % 0.5 % Normal 0.0-0.5 [facility] Comment on above: Performed By: #### C BC #### [facility] [address] [place] [address] Dr. Duy James LYMPH # 1.4 103/ul Normal 1.2-3.8 [facility] Comment on above: Performed By: #### C BC #### [facility] [address] [place] [address] Dr. Duy James Lymphocytes/100 WBC (Bld) 23.8 % Normal 20.5-60.0 [facility] Comment on above: Performed By: #### C BC #### [facility] [address] [place] [address] Dr. Duy James MANUAL DIFF REQ NO Normal [facility] Comment on above: Performed By: #### C BC #### [facility] [address] [address] [address] Duy James MCH (RBC) [Entitic mass] 28.8 pg Normal 25.9-34.0 [facility] Comment on above: Performed By: #### C BC #### [facility] [address] [address] [address] Duy James MCHC (RBC) [Mass/Vol] 33.8 g/dL Normal 29.9-35.2 [facility] Comment on above: Performed By: #### C BC #### [facility] [address] [place] [address] Dr. Duy James MCV (RBC) [Entitic vol] 85.2 fL Normal 80.0-94.0 [facility] Comment on above: Performed By: #### C BC #### [facility] [address] [place] [address] Dr. Duy James MONO # 0.5 103/ul Normal 0.3-0.8 [facility] Comment on above: Performed By: #### C BC #### [facility] [address] [place] [address] Dr. Duy James Monocytes/100 WBC (Bld) 7.8 % Normal 1.7-12.0 [facility] Comment on above: Performed By: #### C BC #### [facility] [address] [place] [address] Dr. Duy James NEUT # 3.7 103/ul Normal 1.4-6.5 [facility] Comment on above: Performed By: #### C BC #### [facility] [address] [place] [address] Dr. Duy James Neutrophils/100 WBC (Bld) 61.7 % Normal 43.0-75.0 [facility] Comment on above: Performed By: #### C BC #### [facility] [address] [place] [address] Dr. Duy James Platelet mean volume (Bld) [Entitic vol] 9.6 fL Normal 9.5-13.5 [facility] Comment on above: Performed By: #### C BC #### [facility] [address] [place] [address] Dr. Duy James PLT 199 103/ul Normal 150-450 [facility] Comment on above: Performed By: #### C BC #### [facility] [address] [place] [address] Dr. Duy James RBC 4.59 106/ul Critically low 4.70-6.10 [facility] Comment on above: Performed By: #### C BC #### [facility] [address] [place] [address] Dr. Duy James WBC 6.0 103/ul Normal 4.0-11.0 [facility] Comment on above: Performed By: #### C BC #### [facility] [address] [place] [address] Dr. Duy James METHYLMALONIC ACID (MMA)on 0 03-03-2022 Methylmalonic Acid, Serum 232 nmol/L Normal 0-378 [facility] Comment on above: Performed By: #### M MA2 #### [facility] [address] [place] [address] Dr. Duy James CBC AUTO DIFFon 02-25-2022 BASO # 0.1 103/ul Normal 0.0-0.1 [facility] Comment on above: Performed By: #### C BC #### [facility] [address] [place] [address] Dr. Duy James Basophils/100 WBC (Bld) 1.3 % Normal 0.2-2.0 [facility] Comment on above: Performed By: #### C BC #### [facility] [address] [place] [address] Dr. Duy James EO # 0.2 103/ul Normal 0.0-0.7 [facility] Comment on above: Performed By: #### C BC #### [facility] [address] [place] [address] Dr. Duy James Eosinophils/100 WBC (Bld) 4.8 % Normal 0.9-7.0 [facility] Comment on above: Performed By: #### C BC #### [facility] [address] [place] [address] Dr. Duy James Erythrocyte distribution width (RBC) [Ratio] 13.9 % Normal 11.0-15.0 [facility] Comment on above: Performed By: #### C BC #### [facility] [address] [place] [address] Dr. Duy aJmes Hematocrit (Bld) [Volume fraction] 36.2 % Critically low 42.0-54.0 [facility] Comment on above: Performed By: #### C BC #### [facility] [address] [place] [address] Dr. Duy James Hemoglobin (Bld) [Mass/Vol] 12.2 g/dL Critically low 14.0-18.0 [facility] Comment on above: Performed By: #### C BC #### [facility] [address] [place] [address] Dr. Duy James IG # 0.01 10e3/ul Normal 0.00-0.03 [facility] Comment on above: Performed By: #### C BC #### [facility] [address] [place] [address] Dr. Duy James IG % 0.2 % Normal 0.0-0.5 [facility] Comment on above: Performed By: #### C BC #### [facility] [address] [place] [address] Dr. Duy James LYMPH # 1.3 103/ul Normal 1.2-3.8 [facility] Comment on above: Performed By: #### C BC #### [facility] [address] [place] [address] Dr. Duy James Lymphocytes/100 WBC (Bld) 29.3 % Normal 20.5-60.0 [facility] Comment on above: Performed By: #### C BC #### [facility] [address] [place] [address] Dr. Duy James MANUAL DIFF REQ NO Normal [facility] Comment on above: Performed By: #### C BC #### [facility] [address] [address] [address] Duy James MCH (RBC) [Entitic mass] 29.5 pg Normal 25.9-34.0 [facility] Comment on above: Performed By: #### C BC #### [facility] [address] [place] [address] Dr. Duy James MCHC (RBC) [Mass/Vol] 33.7 g/dL Normal 29.9-35.2 [facility] Comment on above: Performed By: #### C BC #### [facility] [address] [place] [address] Dr. Duy James MCV (RBC) [Entitic vol] 87.7 fL Normal 80.0-94.0 [facility] Comment on above: Performed By: #### C BC #### [facility] [address] [place] [address] Dr. Duy James MONO # 0.4 103/ul Normal 0.3-0.8 [facility] Comment on above: Performed By: #### C BC #### [facility] [address] [place] [address] Dr. Duy James Monocytes/100 WBC (Bld) 9.4 % Normal 1.7-12.0 [facility] Comment on above: Performed By: #### C BC #### [facility] [address] [place] [address] Dr. Duy James NEUT # 2.5 103/ul Normal 1.4-6.5 [facility] Comment on above: Performed By: #### C BC #### [facility] [address] [place] [address] Dr. Duy James Neutrophils/100 WBC (Bld) 55.0 % Normal 43.0-75.0 [facility] Comment on above: Performed By: #### C BC #### [facility] [address] [place] [address] Dr. Duy James Platelet mean volume (Bld) [Entitic vol] 9.4 fL Critically low 9.5-13.5 [facility] Comment on above: Performed By: #### C BC #### [facility] [address] [address] [address] Duy James PLT 142 103/ul Critically low 150-450 [facility] Comment on above: Performed By: #### C BC #### [facility] [address] [address] [address] Duy James RBC 4.13 106/ul Critically low 4.70-6.10 [facility] Comment on above: Performed By: #### C BC #### [facility] [address] [place] [address] Dr. Duy James WBC 4.6 103/ul Normal 4.0-11.0 [facility] Comment on above: Performed By: #### C BC #### [facility] [address] [place] [address] Dr. Duy James FERRITINon 02-25-2022 Ferritin [Mass/Vol] 274.0 ng/mL Normal 26.0-388.0 [facility] Comment on above: Performed By: #### C BC #### [facility] [address] [place] [address] Dr. Duy James IRON AND TIBCon 02-25-2022 % SATURATION 33.8 % Normal [facility] Comment on above: Performed By: #### C BC #### [facility] [address] [place] [address] Dr. Duy James Iron [Mass/Vol] 97.0 ug/dL Normal 65.0-175.0 [facility] Comment on above: Performed By: #### C BC #### [facility] [address] [place] [address] Dr. Duy James TIBC DIRECT 287.0 ug/dL Normal 250.0-450.0 [facility] Comment on above: Performed By: #### C BC #### [facility] [address] [place] [address] Dr. Duy James VIT B12 AND FOLATEon 022 Cobalamin (Vitamin B12) [Mass/Vol] 817.0 pg/mL Normal 193.0-986.0 [facility] Comment on above: Performed By: #### C BC #### [facility] [address], [place] [address] Dr. Duy James FOLATE 16.90 ng/mL Normal 8.60-58.90 [facility] Comment on above: Performed By: #### C BC #### [facility] [address], [place] [address] Dr. Duy James XR CHEST 2 Von [...] by: ALEXA MCKENZIE Date: 2021-12-28 13:59 Normal [facility] COVID Quick Testingon 2021 Result Negative [employer] Other Quick Fluon 08-07-2021 FLUAV Ab CF (S) [Titer] Negative [employer] Other FLUBV Ab CF (S) [Titer] Negative [employer] Other COVID Quick Testingon 2020 Result Positive [employer] [facility] [employer] Other Vital Signs Date Time Vital Sign Value Performing Clinician Facility 02-29-2024 09:55-0400 Body height 177.[address] [facility] 02-29-2024 09:55-0400 Body mass index (BMI) [Ratio] 33.7 kg/m2 [facility] 02-29-2024 09:55-0400 Body weight 106.[address] [facility] 02-29-2024 09:55-0400 Diastolic blood pressure 65 mm[Hg] [facility] 02-29-2024 09:55-0400 Heart rate 67 /min [facility] 02-29-2024 09:55-0400 Respiratory rate 12 /min [facility] 02-29-2024 09:55-0400 Systolic blood pressure 151 mm[Hg] [facility] 12-25-2023 07:50-0400 Diastolic blood pressure 66 mm[Hg] Meghan Lue [facility] 12-25-2023 07:50-0400 Heart rate 57 /min Meghan Lue [facility] 12-25-2023 07:50-0400 Mean blood pressure 91 mm[Hg] Meghan Lue [facility] 12-25-2023 07:50-0400 Systolic blood pressure 143 mm[Hg] Meghan Lue [facility] 12-25-2023 07:49-0400 Heart rate 62 /min Meghan Lue [facility] 12-25-2023 07:49-0400 SaO2% (BldA) [Mass fraction] 98 % Meghan Lue [facility] 12-25-2023 07:48-0400 Body temperature 98.06 [degF] Meghan Lue [facility] 12-25-2023 07:48-0400 Blood Pressure Location Meghan Lue [facility] 12-25-2023 07:48-0400 Diastolic blood pressure 61 mm[Hg] Meghan Lue [facility] 12-25-2023 07:48-0400 Mean blood pressure 95 mm[Hg] Meghan Lue [facility] 12-25-2023 07:48-0400 Systolic blood pressure 164 mm[Hg] Meghan Lue [facility] 12-25-2023 07:48-0400 Respiratory rate 16 /min Meghan Lue [facility] 11-29-2023 10:55-0400 Blood Pressure Location Meghan Lue [facility] 11-29-2023 10:55-0400 Diastolic blood pressure 74 mm[Hg] Meghan Lue [facility] 11-29-2023 10:55-0400 Heart rate 68 /min Meghan Lue [facility] 11-29-2023 10:55-0400 Respiratory rate 16 /min Meghan Lue [facility] 11-29-2023 10:55-0400 Systolic blood pressure 163 mm[Hg] Meghan Lue [facility] 11-28-2023 08:42-0400 Body height 177.[address] [facility] 11-28-2023 08:42-0400 Body mass index (BMI) [Ratio] 33.2 kg/m2 [facility] 11-28-2023 08:42-0400 Body weight [address] [facility] 11-28-2023 08:42-0400 Diastolic blood pressure 80 mm[Hg] [facility] 11-28-2023 08:42-0400 Heart rate 64 /min [facility] 11-28-2023 08:42-0400 Respiratory rate 12 /min [facility] 11-28-2023 08:42-0400 Systolic blood pressure 188 mm[Hg] [facility] 06-16-2023 10:00-0500 Diastolic blood pressure 92 mm[Hg] Meghan Lue [facility] 06-16-2023 10:00-0500 Mean blood pressure 115 mm[Hg] Meghan Lue [facility] 06-16-2023 10:00-0500 Systolic blood pressure 162 mm[Hg] Meghan Lue [facility] 06-16-2023 09:44-0500 Blood Pressure Location Meghan Lue [facility] 06-16-2023 09:44-0500 Body temperature 97.16 [degF] Meghan Lue [facility] 06-16-2023 09:44-0500 Diastolic blood pressure 88 mm[Hg] Meghan Lue [facility] 06-16-2023 09:44-0500 Heart rate 78 /min Meghan Lue [facility] 06-16-2023 09:44-0500 Systolic blood pressure 144 mm[Hg] Meghan Lue [facility] 06-06-2023 17:10-0500 Diastolic blood pressure 70 mm[Hg] Meghan Lue [facility] 06-06-2023 17:10-0500 Heart rate 60 /min Meghan Lue [facility] 06-06-2023 17:10-0500 Respiratory rate 16 /min Meghan Lue [facility] 06-06-2023 17:10-0500 SaO2% (BldA) [Mass fraction] 100 % Meghan Lue [facility] 06-06-2023 17:10-0500 Systolic blood pressure 120 mm[Hg] Meghan Lue [facility] 06-06-2023 17:02-0500 Heart rate 62 /min Meghan Lue [facility] 06-06-2023 17:02-0500 SaO2% (BldA) [Mass fraction] 100 % Meghan Lue [facility] 06-06-2023 17:02-0500 Respiratory rate 16 /min Meghan Lue [facility] 06-06-2023 16:52-0500 Diastolic blood pressure 56 mm[Hg] Meghan Lue [facility] 06-06-2023 16:52-0500 Heart rate 60 /min Meghan Lue [facility] 06-06-2023 16:52-0500 SaO2% (BldA) [Mass fraction] 97 % Meghan Lue [facility] 06-06-2023 16:52-0500 Systolic blood pressure 89 mm[Hg] Meghan Lue [facility] 06-06-2023 16:29-0500 Diastolic blood pressure 89 mm[Hg] Meghan Lue [facility] 06-06-2023 16:29-0500 Systolic blood pressure 154 mm[Hg] Meghan Lue [facility] 06-06-2023 14:00-0500 Blood Pressure Location Meghan Lue [facility] 06-06-2023 14:00-0500 Mean blood pressure 84 mm[Hg] Meghan Lue [facility] 06-06-2023 14:00-0500 Respiratory rate 18 /min Meghan Lue [facility] 05-10-2023 10:54-0500 Blood Pressure Location Meghan Lue [facility] 05-10-2023 10:54-0500 Diastolic blood pressure 76 mm[Hg] Meghan Lue [facility] 05-10-2023 10:54-0500 Heart rate 68 /min Meghan Lue [facility] 05-10-2023 10:54-0500 Respiratory rate 16 /min Meghan Lue [facility] 05-10-2023 10:54-0500 Systolic blood pressure 132 mm[Hg] Meghan Lue [facility] 04-11-2023 11:40-0400 Blood Pressure Location THERESA FLAKO [facility] 04-11-2023 11:40-0400 Diastolic blood pressure 75 mm[Hg] THERESA FLAKO [facility] 04-11-2023 11:40-0400 Heart rate 68 /min THERESA FLAKO [facility] 04-11-2023 11:40-0400 Respiratory rate 16 /min THERESA FLAKO [facility] 04-11-2023 11:40-0400 Systolic blood pressure 134 mm[Hg] THERESA FLAKO [facility] 12-20-2022 10:11-0400 Blood Pressure Location THERESA FLAKO [facility] 12-20-2022 10:11-0400 Diastolic blood pressure 80 mm[Hg] THERESA FLAKO [facility] 12-20-2022 10:11-0400 Heart rate 70 /min THERESA FLAKO [facility] 12-20-2022 10:11-0400 Respiratory rate 16 /min THERESA FLAKO [facility] 12-20-2022 10:11-0400 Systolic blood pressure 140 mm[Hg] THERESA FLAKO [facility] 11-23-2022 08:30-0400 Body height 177.8 cm Gio Ball Other [facility] [employer] Other 11-23-2022 08:30-0400 Body mass index (BMI) [Ratio] 32.42 kg/m2 Gio Ball Other [facility] [employer] Other 11-23-2022 08:30-0400 Body weight 102.51 kg Gio Ball Other [facility] [employer] Other 11-23-2022 08:30-0400 Diastolic blood pressure 69 mm[Hg] Gio Ball Other [facility] [employer] Other 11-23-2022 08:30-0400 Respiratory rate 12 /min Gio Ball Other [facility] [employer] Other 11-23-2022 08:30-0400 Systolic blood pressure 162 mm[Hg] Gio Ball Other [employer] Other 08-31-2022 10:00-0500 Body height 177.8 cm Gio Ball Other [employer] Other 03-08-2023 10:00-0500 Body mass index (BMI) [Ratio] 33.43 kg/m2 [employer] Other [employer] Other 08-31-2022 10:00-0500 Body weight 105.69 kg Gio Ball Other [facility] Other 08-31-2022 10:00-0500 Diastolic blood pressure 80 mm[Hg] Gio Yeexoo Other [employer] Other 08-31-2022 10:00-0500 Respiratory rate 16 /min [employer] Other [employer] Other 08-31-2022 10:00-0500 SaO2% (BldA) [Mass fraction] 98 % Gio Yeexoo Other [employer] Other 08-31-2022 10:00-0500 Systolic blood pressure 132 mm[Hg] Gio Yeexoo Other [facility] [employer] Other 10-26-2021 09:11-0400 Blood Pressure Location Daniel Kern Jr. [facility] 10-26-2021 09:11-0400 Diastolic blood pressure 77 mm[Hg] Daniel Kern Jr. [facility] 10-26-2021 09:11-0400 Heart rate 78 /min Daniel Kern Jr. [facility] 10-26-2021 09:11-0400 Respiratory rate 16 /min Daniel Kern Jr. [facility] 10-26-2021 09:11-0400 Systolic blood pressure 181 mm[Hg] Daniel Erlin Alonso [facility] 08-07-2021 11:00-0500 Body height 177.8 cm Gina Starks Other [employer] Other 08-07-2021 11:00-0500 Body mass index (BMI) [Ratio] 30.13 kg/m2 Gina Starks Other [employer] Other 08-07-2021 11:00-0500 Body temperature 101 [degF] Gina Starks Other [employer] Other 08-07-2021 11:00-0500 Body weight 95.26 kg Gina Starks Other [employer] Other 08-07-2021 11:00-0500 Respiratory rate 18 /min Gina Starks Other [employer] Other 08-07-2021 11:00-0500 SaO2% (BldA) [Mass fraction] 97 % Gina Starks Other [employer] Other 05-24-2021 18:15-0500 Body height 177.8 cm Sybil Lee Other [employer] Other 05-24-2021 18:15-0500 Body mass index (BMI) [Ratio] 30.85 kg/m2 Sybil Lee Other [employer] Other 05-24-2021 18:15-0500 Body temperature 96.9 [degF] Sybil Lee Other [employer] Other 05-24-2021 18:15-0500 Body weight 97.52 kg Sybil Lee Other [employer] Other 05-24-2021 18:15-0500 SaO2% (BldA) [Mass fraction] 91 % Sybil Lee Other [employer] Other Encounters Encounter Date Encounter Type Care Provider Facility Start: 03-06-2024 ambulatory Meghan Brito Facility:[facility] Start: 02-29-2024 End: 02-29-2024 ambulatory [facility] Work Phone: Start: 02-29-2024 End: 02-29-2024 Patient encounter procedure [facility] Work Phone: Start: 02-22-2024 Non-patient / Non-visit [facility] [employer] Work Phone: Start: 02-12-2024 End: 02-12-2024 ambulatory [facility] Start: 02-12-2024 End: 02-12-2024 Encounter for other preprocedural examination [facility] Start: 01-12-2024 ambulatory Meghan Brito Facility:[facility] Start: 01-03-2024 Encounter for other preprocedural examination [facility] Start: 01-03-2024 End: 01-03-2024 ambulatory [facility] Start: 12-25-2023 End: 12-25-2023 ambulatory Meghan MReinier Brito Facility:[facility] Start: 12-25-2023 End: 12-25-2023 Patient encounter procedure Meghan Brito [facility] Start: 11-29-2023 End: 01-03-2024 Pre-admission assessment Meghan M. Charismae [facility] Start: 11-29-2023 End: 11-29-2023 ambulatory Meghan M. Lue Facility:[facility] Start: 11-29-2023 End: 11-29-2023 Patient encounter procedure Meghan Bernstien. Charismae [facility] Start: 11-28-2023 End: 11-28-2023 ambulatory [facility] Work Phone: Start: 11-28-2023 End: 11-28-2023 Encounter for general adult medical examination without abnormal findings [facility] Start: 11-28-2023 End: 11-28-2023 Patient encounter procedure [facility] Work Phone: Start: 11-24-2023 Non-patient / Non-visit [facility] Work Phone: Start: 07-31-2023 End: 07-31-2023 ambulatory Meghan M. Lue Facility:[facility] Start: 07-31-2023 End: 07-31-2023 Patient encounter procedure Meghan Bernstein. Charismae [facility] Start: 06-30-2023 End: 06-30-2023 ambulatory Meghan M. Lue Facility:[facility] Start: 06-30-2023 End: 06-30-2023 Lab Drop off Meghan M. Lue [facility] Start: 06-30-2023 End: 06-30-2023 ambulatory Meghan M. Lue Facility: [facility] Start: 06-30-2023 End: 06-30-2023 Patient encounter procedure Meghan M. Lue [facility] [place] Start: 06-22-2023 End: 06-22-2023 ambulatory Gio Cavanaugh Other [employer] Other Start: 06-22-2023 Telephone encounter Gio Cavanaugh [facility] Start: 06-21-2023 Telephone encounter Gio BRITTON [facility] Start: 06-21-2023 End: 06-21-2023 ambulatory Meghan M. Charismae [facility] Other Start: 06-21-2023 End: 06-21-2023 Patient encounter procedure Meghan M. Charismae [facility] Start: 06-20-2023 End: 06-20-2023 ambulatory Gio Cavanaugh Other [employer] Other Start: 06-20-2023 Telephone encounter Gio BRITTON [facility] Start: 06-18-2023 End: 06-18-2023 ambulatory Gio Cavanaugh Other [employer] Other Start: 06-18-2023 Telephone encounter Gio BRITTON [facility] Start: 06-16-2023 End: 06-16-2023 ambulatory Meghan M. Lue Facility: [place] Start: 06-16-2023 End: 06-16-2023 Patient encounter procedure Meghan M. Lue [facility] [place] Start: 06-15-2023 End: 06-15-2023 ambulatory Meghan M. Lue Facility: [place] Start: 06-15-2023 End: 06-15-2023 Patient encounter procedure Meghan M. Lue [facility] [place] Start: 06-14-2023 End: 06-14-2023 ambulatory Meghan Tucker Lue Facility:[facility] [place] Start: 06-14-2023 End: 06-14-2023 Patient encounter procedure Meghan Brito [facility] Start: 06-06-2023 End: 06-07-2023 ambulatory DUY JAMES MD Facility:[id number] Start: 06-06-2023 End: 06-06-2023 Admission to same day surgery center Meghan Brito [facility] Start: 06-06-2023 End: 06-06-2023 ambulatory Meghan Brito Facility:[facility] Start: 06-05-2023 End: 06-05-2023 ambulatory Gio Cavanaugh Other [employer] Other Start: 06-05-2023 Telephone encounter Gio BRITTON [facility] Start: 05-10-2023 End: 05-10-2023 ambulatory Meghan M. Lue Facility:[facility] Start: 05-10-2023 End: 05-10-2023 Patient encounter procedure Meghan Brito [facility] Start: 04-28-2023 ambulatory Meghan M. Lue Facility:[facility] Start: 04-27-2023 End: 04-27-2023 ambulatory Gio Cavanaugh Other [employer] Other Start: 04-27-2023 Telephone encounter Gio BRITTON [facility] Start: 04-11-2023 End: 04-11-2023 ambulatory THERESA FLEMING Facility:[facility] [place] Start: 04-11-2023 End: 04-11-2023 Patient encounter procedure THERESA FLEMING [facility] Start: 04-04-2023 End: 04-04-2023 ambulatory Gio Mao Other [employer] Other Start: 04-04-2023 Telephone encounter Gio BRITTON [facility] Start: 04-03-2023 End: 04-03-2023 ambulatory Theresa Fleming Facility:[facility] Start: 04-03-2023 End: 04-03-2023 ambulatory DO Gio Cavanaugh Work Phone: [facility] Work Phone: Start: 04-03-2023 End: 04-03-2023 Patient encounter procedure DO Gio Mao Work Phone: [facility] [place] Work Phone: Start: 12-20-2022 End: 12-20-2022 Patient encounter procedure THERESA FLEMING [facility] Start: 12-13-2022 End: 12-13-2022 ambulatory Gio Cavanaugh Other [employer] Other Start: 12-13-2022 Telephone encounter Gio Cavanaugh [facility] Start: 12-12-2022 End: 12-12-2022 ambulatory Gio Cavanaugh Other [employer] Other Start: 12-12-2022 Telephone encounter Gio Cavanaugh [facility] Start: 11-23-2022 End: 11-23-2022 ambulatory Gio Cavanaugh Other [employer] Other Start: 11-23-2022 Encounter for genera l adult medical examination without abnormal findings Gio Cavanaugh [facility] Start: 11-23-2022 Periodic preventive med est patient 65yrs& older Gio Cavanaugh [facility] Start: 11-07-2022 End: 11-08-[address] GIO CAVANAUGH Facility:[facility] Start: 08-31-2022 End: 08-31-2022 ambulatory Gio Cavanaugh Other [employer] Other Start: 08-31-2022 Office outpatient vi sit 25 minutes Gio Cavanaugh [facility] Start: 08-26-2022 End: 08-28-2022 Evaluation and management of inpatient DR DARIUS IGANG . Facility:[facility] Start: 05-18-2022 End: 05-19-[address] GIO CAVANAUGH Facility:[facility] Start: 02-25-2022 End: 02-26-[address] GIO CAVANAUGH Facility:[facility] Start: 01-07-[address] GIO CAVANAUGH Facili ty:[facility] Start: 12-28-2021 End: 12-29-[address] GIO CAVANAUGH Facility:[facility] Start: 11-18-2021 Adult health examination Joseph jacqueline Cavanaugh Other [employer] Other Start: 10-26-2021 End: 10-26-2021 Patient encounter procedure Daniel Kern Jr. [facility] Start: 08-07-2021 End: 08-07-2021 ambulatory Gina Starks Other [employer] Other Start: 08-07-2021 Office outpatient vi sit 15 minutes Gina Starks [facility] Start: 05-24-2021 End: 05-24-2021 ambulatory Sybil Lee Other [employer] Other Start: 05-24-2021 Office outpatient vi sit [...] of Treatment Date Care Activity Detail Author [facility] Immunizations Immunization Date Immunization Notes Care Provider Renetta thacker 05-25-2023 influenza virus vaccine, unspecified formulation [facility] 05-25-2023 influenza, high dose seasonal, preservative-free Gio Cavanaugh Other [facility] [employer] Other 05-25-2023 pneumococcal polysaccharide vaccine, 23 valent Gio Cavanaugh Other [facility] 02-24-2022 influenza virus vaccine, unspecified formulation THERESABESSY FLEMING [facility] 02-24-2022 influenza, high dose seasonal, preservative-free Gio Cavanaugh Other [facility] [employer] Other 11-18-2021 pneumococcal conjuga te vaccine, 13 valent Gio Cavanaugh Other [facility] 09-01-2021 COVID-19 Vaccine Moderna - Documentation Purposes Only Gio Cavanaugh Other [facility] 06-26-2021 pneumococcal conjuga te vaccine, 13 valent Gio Cavanaugh Other [facility] 09-02-2020 SARS-CoV-2 (COVID-19 ) Ad26 vaccine, recombinant [facility]ern Jr. [facility] 05-03-2019 influenza virus vaccine, split virus (incl. purified surface antigen) Gio Cavanaugh Other [employer] Other 05-03-2019 influenza virus vaccine, unspecified formulation [facility] 05-09-2018 influenza virus vaccine, split virus (incl. purified surface antigen) Gio Cavanaugh Other [employer] Other 05-09-2018 influenza virus vaccine, unspecified formulation [facility] Payers Date Payer Category Payer Unknown [id number] 2023 Medicare [id number] 2023 Medicare [id number] 1959 Self-pay 1959 Unknown [id number]. [id number] 1956 Unknown [id number] 2.16.84 0.1.278651.3.579.2.593 1956 Unknown [id number] 2.16.84 0.1.087962.3.579.2.593 1956 Unknown [id number] 2.16.84 0.1.159108.3.579.2.593 1956 Unknown [id number] 2.16.84 0.1.781003.3.579.2.593 1956 Unknown [id number] 2.16.84 0.1.697936.3.579.2.593 1956 Unknown [id number] 2.16.84 0.1.513632.3.579.2.593 1956 Unknown [id number] 2.16.8 40.1.843344.3.579.2.159 1956 Unknown [id number] 2.16.8 40.1.588731.3.579.2.727 1956 Unknown [id number] 2.16.8 40.1.944922.3.579.2.727 1956 Unknown [id number] 2.16.8 40.1.376826.3.579.2.727 1956 Unknown [id number] 2.16.8 40.1.627314.3.579.2.727 1956 Unknown [id number] 2.16.8 40.1.452996.3.579.2.727 1956 Unknown [id number] 2.16.8 40.1.964367.3.579.2.727 1956 Unknown [id number] 2.16.8 40.1.379039.3.579.2.727 1956 Unknown [id number] 2.16.8 40.1.770715.3.579.2.727 1956 Unknown [id number] 2.16.8 40.1.118838.3.579.2.727 1956 Unknown [id number] 2.16.8 40.1.673362.3.579.2.727 1956 Unknown [id number] 2.16.8 40.1.980334.3.579.2.727 1956 Unknown [id number] 2.16.8 40.1.906208.3.579.2.727 1956 Unknown [id number] 2.16.8 40.1.888120.3.579.2.727 1956 Unknown [id number] 2.16.8 40.1.799503.3.579.2.727 Medicare Private Health Insurance Unknown [id number] 2.16.8 40.1.542005.3.579.2.531 Social History Date Type Detail Facility Start: 10-26-2021 Tobacco smoking status Heavy t obacco smoker (finding) [facility] [employer] Other Sex Assigned At Male [facility] [employer] Other Start: 12-20-2022 End: 05-10-2023 Tobacco smoking status Ex-smoker (finding) [facility] Start: 06-16-2023 End: 11-29-2023 Tobacco smoking status Never [facility] Start: 12-16-2020 Tobacco smoking stat [facility] Smoker (finding) [facility] Start: 1955 Sex Assigned At Male Arnul[facility] Functional Status Date Assessment Result Facility 12-25-2023 Functional Status No [facility] 11-29-2023 Functional Status N/A [facility] 07-31-2023 Functional Status N/A [facility] 06-16-2023 Functional Status N/A [facility] 05-16-2023 Functional Status N/A [facility] 05-10-2023 Functional Status N/A [facility] 04-11-2023 Functional Status N/A [facility] 12-20-2022 Functional Status N/A [facility] Clinical Notes 05-24-2021 to 02-12-2024 Note Date & Type Note Facility 02-12-2024 Note [facility] Note Reason for cardiology [...] asked the patien (more content not included)... [facility] 01-03-2024 Note [facility] Note Reason for cardiology [...] mother had diabetes mellitus. His father had [place] at age of 50. Many siblings with [...] me in 3 weeks Glenna Lakhani MD, [facility] 12-13-2023 Note [id number]#1.00NEPTALI [facility] 11-29-2023 Hospital Discharge instructions Patient Education [...] Follow these instructions at home: Medicines Take alzi-ogj-xnzhfoh and prescription medicines only as told by [...] to keep your urine pale yellow. Take qlml-zfy-athfpwn or prescription medicines. Eat foods that are [...] provider. Document Revised: 03/08/2022 Document Reviewed: 03/08/2022 [employer] Patient Education 2022 [employer] 11/29/2023 11:20:13 Transurethral Resection of the Prostate [...] including vitamins, herbs, eye drops, creams, and sfma-aef-fruvzij medicines. Any problems you or family members [...] provider tells you to take them. Taking fdvd-hci-nphxhcs medicines, vitamins, herbs, and supplements. Surgery safety [...] provider. Document Revised: 03/08/2022 Document Reviewed: 03/08/2022 [employer] Patient Education 2022 [employer] Follow Up Care 08/02/2023 09:34:46 With:Daryl HAMILTON, LOGAN Villalpando, URO Address: [address] [place] [address] [phone] When: Unknown [facility] 07-31-2023 Evaluation + Plan note Extrac rina from: Title: - [facility]OPD Note Author:Daryl HAMILTON, Meghan Bernstein. Date:07/31/23 Impression and Plan Assessment and Plan: Diagnosis: BPH with urinary obstruction (LGV30-PB N40.1, Discharge, Medical), Pelvic lymphadenopathy (HHN13-HX R59.0, Working, Medical), Chronic prostatitis (TMV94-NL N41.1, Discharge, Medical), Feeling of incomplete bladder emptying (WKI28-MY R39.14, Discharge, Medical), Gross hematuria (ICD10- CM R31.0, Discharge, Medical). Assessment and Plan: Diagnosis: BPH with urinary obstruction (IHM94-MR N40.1, Discharge, Medical), Chronic prostatitis (TYQ38-RF N41.1, Discharge, Medical), Feeling of incomplete bladder emptying (XFE88-BC R39.14, Discharge, Medical), Gross hematuria (MCW35-AV R31.0, Discharge, Medical), Pelvic lymphadenopathy (EKH91-YB R59.0, Working, Medical). 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 Gross hematuria - after [place] CTU 07/05/23 at [facility] - neg for upper tract filling defects [...] in 4 to 5 months with [facility]02-05-2024 Hospital Discharge instructions Patient Education 07/31/2023 [...] including vitamins, herbs, eye drops, creams, and ankt-ioa-xnceuii medicines. Any problems you or family members [...] provider tells you to take them. ?Taking tamt-qng-zywngoy medicines, vitamins, herbs, and supplements. Follow your [...] provider. Document Revised: 09/08/2021 Document Reviewed: 09/08/2021 [employer] Patient Education 2022 [employer]. 07/31/2023 09:05:54 Transurethral Resection of the Prostate [...] including vitamins, herbs, eye drops, creams, and cdlx-uzh-mknrcnn medicines. Any problems you or family members [...] provider tells you to take them. Taking uvjn-ugn-bpdpfob medicines, vitamins, herbs, and supplements. Surgery safety [...] provider. Document Revised: 03/08/2022 Document Reviewed: 03/08/2022 [employer] Patient Education 2022 [employer]. 07/31/2023 09:05:54 [facility] - Cystoscopy Discharge Instructions [...] Up Care 06/30/2023 10:04:12 With:Meghan Brito Address: [address] [place] [address]- [phone] Business (1) When: Unknown Comments:Office to schedule follow up in 3-4 months or call sooner for procedure (pt knows will be done by partner/referred out if during leave) [facility]02-05-2024 Note [id number]#1.00[facility] 07-31-2023 NoteCystoscopy ? Voiding after the procedure: [...] including vitamins, herbs, eye drops, creams, and timk-gzd-acgkqzd medicines. ? Any problems you or family [...] tells you to take them. ? Taking rgsl-qnw-lligqqz medicines, vitamins, herbs, and supplements. ? Follow [...] at least 4 week (more content not included)...[facility]12-28-2023 Evaluation note* Encounter Date Diagnosis Assessment Notes Treatment Notes Treatment Clinical Notes May, Simple chronic bronchitis (ICD-10 - J41.0) [employer] Other 12-27-2023 Evaluation note* Encounter Date Diagnosis Assessment Notes Treatment Notes Treatment Clinical Notes May, Simple chronic bronchitis (ICD-10 - J41.0) [employer] Other 12-26-2023 Evaluation note* Encounter Date Diagnosis Assessment Notes Treatment Notes Treatment Clinical Notes May, Simple chronic bronchitis (ICD-10 - J41.0) [employer] Other [id number] Hospital Discharge instructions Patient Education 06/16/2023 10:59:22 [...] treatment? Where to find more information The [place] [employer]: www.cancer.org [place] [employer]: www.auanet.org Contact a health care [...] provider. Document Revised: 12/06/2021 Document Reviewed: 12/06/2021 [employer] Patient Education 2022 [employer]. Follow Up Care 06/16/2023 08:30:52 With:Meghan Brito MD, URL, URO Address: [address] [place] [address]- [phone] When: Unknown Comments:6 mos w/ CT and PSA [facility] 12-20-2023 Hospital Discharge instructions Follow Up Care 06/14/2023 08:28:10 With:Meghan Brito MD, URL, URO Address: When: Unknown [facility] 12-12-2023 Hospital Discharge instructions Patient Education 06/06/2023 16:52:41 EU - Transrectal Ultrasound of the Prostate with US guided biopsy Discharge Instructions (CUSTOM) Transperineal?Biopsy of the Prostate Discharge Instructions After the procedure, it is common to have: Pain and discomfort near your rectum, especially while sitting. [place]-colored urine due to small amounts of blood [...] Brito Address:Unknown When: Unknown Comments:Keep scheduled appointment [facility]12-12-2023 Evaluation + Plan noteExtracted from: Title:EU -transperineal prostate biopsy Author:Meghan Melgoza MD Date:06/06/23 Impression and Plan Diagnosis Elevated PSA (EKF22-VH R97.20, Discharge, Medical). Diagnosis Elevated PSA (XSP22-ZT R97.20, Discharge, Medical). Future Appointments Appointment Date:06/14/2023 10:30:00 AM Scheduled Provider:Meghan Brito MD Location:[facility] Appointment Type:URO Office Visit [facility]11-20-2023 Note [id number] Hospital Discharge instructions Follow Up Care 05/10/2023 11:27:04 With:Daryl HAMILTON, LOGAN Villalpando, URO Address: [address], [place] [phone] When: Unknown [facility] 11-15-2023 Hospital Discharge instructions Patient [...] treatment? Where to find more information The [place] [employer]: www.cancer.org [place] [employer]: www.auanet.org Contact a health care [...] provider. Document Revised: 12/06/2021 Document Reviewed: 12/06/2021 [employer] Patient Education 2022 [employer]. 05/10/2023 11:11:23 Benign Prostatic Hyperplasia Benign Prostatic [...] urethra. Follow these instructions at home: Take dnvf-noc-nrcpshd and prescription medicines only as told by [...] provider. Document Revised: 12/29/2021 Document Reviewed: 12/29/2021 [employer] Patient Education 2022 [employer]. Follow Up Care 04/12/2023 09:16:25 With:Lue MD, LOGAN Villalpando, URO Address: When: Unknown Comments:Sched Transperineal Bx of Prostate [facility] [employer] [place] 11-02-2023 Evaluation note* Encounter Date Diagnosis Assessment Notes Treatment Notes Treatment Clinical Notes Apr, Primary hypertension (ICD-10 - I10) [employer] Other 10-17-2023 Hospital Discharge instructions Patient Education [...] treatment? Where to find more information The [place] [employer]: www.cancer.org [employer] Association: www.auanet.org Contact a health care [...] provider. Document Revised: 12/06/2021 Document Reviewed: 12/06/2021 [employer] Patient Education 2022 [employer]. Follow Up Care 03/16/2023 16:12:09 With:FLAKO ELLIOTT, THERESA Merida, URL Address: [address] [address] [facility] [place] [address] [phone] When: Unknown Comments:f/u with MD in 1 month w/ PSA and Select MDX [facility] 10-10-2023 Evaluation note* Encounter Date Diagnosis Assessment Notes Treatment Notes Treatment Clinical Notes Mar, Primary hypertension (ICD-10 - I10) [employer] Other 06-27-2023 Hospital Discharge instructions Patient Education [...] treatment? Where to find more information The [place] [employer]: www.cancer.org [place] [employer]: www.auanet.org Contact a health care [...] provider. Document Revised: 12/06/2021 Document Reviewed: 12/06/2021 [employer] Patient Education 2022 [employer]. Follow Up Care 10/03/2022 14:27:57 With:THERESA FLEMING PA-C, URL Address: [address] [place] [address] When: Unknown Comments:Sched [facility] MDX and MRI of Prostate. [facility] 06-20-2023 Evaluation note* Encounter Date Diagnosis Assessment Notes Treatment Notes Treatment Clinical Notes Nov, Cigarette nicotine dependence in remission (ICD-10 - F17.211) Started at age 19, quit age 66, 1ppd. LDCT w/o nodules - 11/2022 [employer] Other 06-19-2023 Evaluation note* Encounter Date Diagnosis Assessment Notes Treatment Notes Treatment Clinical Notes Nov, Simple chronic bronchitis (ICD-10 - J41.0) Nov, Cigarette nicotine dependence in remission (ICD-10 - F17.211) Started at age 19, quit age 66, 1ppd. LDCT w/o nodules - 11/2022 [employer] Other 05-31-2023 Evaluation note* Encounter Date Diagnosis [...] Z12.5) Yearly MARIZA and PSA, f/u Urology [employer] Other 03-08-2023 Evaluation note* Encounter Date Diagnosis [...] in remission (ICD-10 - F17.211) Continue abstinence [employer] Other 05-03-2022 Hospital Discharge instructions Patient Education [...] urethra. Follow these instructions at home: Take njzb-fsn-wxxtqpt and prescription medicines only as told by [...] 06/12/2006 Document Revised: 05/07/2019 Document Reviewed: 07/17/2017 [employer] Patient Education 2020 [employer]. Follow Up Care 10/22/2020 09:07:58 With:Erlin Alonso MD, Daniel Tes, URO Address: [facility] [address], [place] [address]- When:10/26/2022 Comments:with PSA [facility] 02-12-2022 Evaluation note* Encounter Date Diagnosis Assessment [...] Patient care instructions given in writting by [employer] Trans At Home document [employer] Other 11-29-2021 Evaluation note* Encounter Date Diagnosis Assessment Notes Treatment Notes Treatment Clinical Notes Apr, Contact with and (suspected) exposure to other viral communicable diseases (ICD-10 - Z20.828) Apr, COVID-19 (ICD-10 - U07.1) Today you tested positive for the COVID virus. This mean you need to follow all [facility] quarantine guidelines found at coronavirus.[place].go v. It is important to rest, increase [...] writting by CDC Care At Home document. [employer] Other Evaluation + Plan note Future Appointments Appointment Date:11/01/2022 08:15:00 AM Scheduled Provider:Daniel Kern Jr., MD Location:[facility] Appointment Type:URO Office Visit Diagnostic Tests Pending * PSA Total 10/26/21 [facility] evaluation + Plan note Future Appointments Appointment Date:04/28/2023 08:15:00 AM Scheduled Provider:Meghan Brito MD Location:[facility] Appointment Type:URO Office Visit Diagnostic Tests Pending * PSA Total 04/11/23 [facility] evaluation + Plan note Future Appointments Appointment Date:06/06/2023 02:30:00 PM Scheduled Provider: Location:[facility] Appointment Type:Surgery FT Appointment Date:06/14/2023 10:30:00 AM Scheduled Provider:Meghan Brito MD Location:[facility] Appointment Type:URO Office Visit [facility] evaluation + Plan note Future Appointments Appointment Date:06/15/2023 03:30:00 PM Scheduled Provider:Meghan Brito MD Location:[facility] Appointment Type:URO Office Visit [facility] evaluation + Plan note Future Appointments Appointment Date:06/21/2023 08:45:00 AM Scheduled Provider:Meghan Brito MD Location:[facility] Appointment Type:URO Office Visit [facility] Evaluation + Plan note Future Appointments Appointment Date:06/30/2023 09:15:00 AM Scheduled Provider: Location:[facility] Appointment Type:URO Nurse Visit Diagnostic Tests Pending * PSA Free & Total 06/16/[address] [facility] [address] [facility] Evaluation + Plan note Future Appointments Appointment Date:06/30/2023 09:15:00 AM Scheduled Provider: Location:[facility] Appointment Type:URO Nurse Visit [facility] evaluation + Plan note Future Appointments Appointment Date:07/31/2023 08:30:00 AM Scheduled Provider: Location:[facility] Appointment Type:Urology FT [facility] Evaluation + Plan note Future Appointments Appointment Date:07/31/2023 08:30:00 AM Scheduled Provider: Location:[facility] Appointment Type:Urology FT Diagnostic Tests Pending * Urine Cytology ([facility]) [facility] Future Appointments Appointment Date:12/25/2023 07:30:00 AM Scheduled Provider: Location:[facility] Appointment Type:Surgical PAT FT Appointment Date:01/02/2024 08:00:00 AM Scheduled Provider: Location:[facility] Appointment Type:Surgery FT [facility] evaluation + Plan note Future Appointments Appointment Date:01/02/2024 08:00:00 AM Scheduled Provider: Location:[facility] Appointment Type:Surgery FT Appointment Date:01/12/2024 08:15:00 AM Scheduled Provider:Meghan Brito MD Location:[facility] Appointment Type:URO [facility] assessment information available [facility] Work Phone: evaluation noteNo InformationNort Coraid Other evaluation note* Diagnosis Onset Date Resolution Status Anemia acute Benign prostatic hyperplasia with lower urinary tract symptoms acute Chronic bronchitis acute Chronic kidney disease acute Elevated PSA acute Hypercholesterolemia acute Hypertension acute Nicotine addiction acute Screening PSA (prostate specific antigen) acute Welcome to Medicare preventive visit noneactive [facility] Work Phone: evaluation note* Diagnosis Onset Date Resolution Status Acute gout acute Benign prostatic hyperplasia with lower urinary tract symptoms acute Hypertension acute [facility] Work Phone: Hisnvpo general Narrative - Reported* Type Description Date Medical History high blood pressure Medical History high cholesterol [employer] Other Hismvrr general Narrative - Reported* Type Description Date [...] HERNIA 1989 Hospitalization History SEE SURGICAL HX [employer] Other Hisclgm general Narrative - Reported* Type Description Date [...] HERNIA 1989 Hospitalization History SEE SURGICAL HX [employer] Other Hospital course Narrative No data available for this section [facility] Hospital Discharge instructions No data available for this section [facility] Nas progress note No data available for this section [facility] Summary Purpose Family History No Family History [...] DATE CREATED AUTHOR AUTHOR'S ORGANIZ ATION 04/13/[address] [facility] DATE CREATED AUTHOR AUTHOR'S ORGANIZ ATION 06/17/2023 [facility] DATE CREATED AUTHOR AUTHOR'S ORGANIZ ATION 12/25/2023 [facility] DATE CREATED AUTHOR AUTHOR'S ORGANIZ ATION 12/26/2023 [facility] DATE CREATED AUTHOR AUTHOR'S ORGANIZ ATION [facility]2024 [facility] DATE CREATED AUTHOR AUTHOR'S ORGANIZ ATION 03/01/2024 [facility] Patient Care team informatio n (unrecognized [...] BE BASED ON THE PRIMARY CLINICAL RECORDS. [facility] [employer] [facility]. provides no warranty or guarantee of the accuracy or completeness of information in this document.
[2024-03-06] MEDS: LACTATED RINGER'S SOLUTION 1,000 ML 50 ML IV (12:01)
[2024-03-06] MEDS: CIPROFLOXACIN IN 5 % DEXTROSE 400 MG/200 ML PREMIX 200 MG IV ×2 (13:38→17:19)
[2024-03-06] MEDS: LACTATED RINGER'S SOLUTION 1,000 ML 125 ML IV (14:45)
--- NOTE | 2024-03-06 15:49 | P.URON_ITS ---
Urology Surgery Operative Note Operative Note Procedure Date: 03/06/24 Time Out Performed: yes Pre-op Diagnosis: Benign prostatic hyperplasia with lower urinary tract symptoms Post-op Diagnosis: same as pre-op Procedures performed: 1. Cystoscopy, transurethral resection of prostate 2. Meatal dilation Anesthesia: General-LMA (Dr. Awan) Primary Surgeon: Meghan Brito Complications: none Estimated blood loss (mL): 3 Findings: Severe trilobar prostatic hyperplasia with significant intravesical median lobe occupying ~ 75% bladder neck lumen. White/yellow exudate within prostate released during resection. Meatal stenosis (22Fr) requiring dilation. 2-3+ trabeculated bladder few small diverticulum scattered in posterior bladder wall. UOs near bladder neck. Specimens: prostate chips Drains: 22Fr 3way coude catheter, 35 cc in balloon Indications for Procedures: 68 year old male with BPH with LUTS who was evaluated in clinic and elected to proceed with transurethral resection of prostate. IPSS 13 on Alfuzosin, PVR 127 cc, cysto confirmed severe trilobar BPH, prostate volume 97 cc. PSA 6.7 10/2023, MRI prostate 03/2023 negative, transperineal prostate biopsy 05/2023 negative. He declined simple prostatectomy or other treatment options for larger glands. Risks were discussed including but not limited to bleeding, pain, infection, damage to surrounding structures, stricture, incontinence, erectile dysfunction, retention, and need for additional procedures Detailed description of Procedure: Prior to the operating room, informed consent was obtained for the procedures described above. The patient was then taken to the operating suite, transferred to the operating table and received the appropriate dose of preoperative IV antibiotics. Gen. anesthesia LMA was administered and the patient was positioned in the lithotomy position, sterilely prepped and draped in the usual sterile fashion for this procedure. A final timeout was performed confirming the patient's identity, procedure and all present were in agreement to proceed. I began by inserting a 22 [place] rigid cystoscope into the patient's bladder and performed a thorough cystoscopy with the 30 degree lens with the findings as above. The urethra appeared to be normal without evidence of strictures or abnormalities. Bilateral ureteral orifices were seen in orthotopic position effluxing urine, close to bladder neck and hidden due to large intravesical median lobe. The cystoscope was removed and a 26 [place] resectoscope was i nsertion was attempted via visual obturator. Due to meatal stenosis, jason sounds were used from 20Fr to 28 Fr in a sequential fashion. Resectoscope was ultimately able to be inserted. The UOs were identified and bipolar loop electrocautery was used to resect the median lobe starting at the 5 o'clock position until the UO was in view. This was repeated on the right side and the intervening lobe was taken down to bladder neck. Care was taken to ensure the bladder or UOs were injured. Next the resection was continued distally, taking care to not resect distal to the verumontanum. Once the median lobe was taken down, the left lateral lobe was resected down to capsule. This was repeated on the right. Minimal anterior lobe resection. Specimens were sent for pathology. Pinpoint hemostasis was obtained with loop electrocautery. Next, plasma button was used to fulgurate the resection bed and excellent hemostasis was achieved. The bladder was drained and inspected. There was no evidence of any bleeding from the resection beds. A 22-Bermudian [address] Coude catheter was inserted without difficulty, 35 cc in balloon, irrigated until clear, normal saline continuous bladder irrigation started. The patient tolerated the procedure well without complication. Patient was extubated and sent to PACU for recovery. Plan: Admit for observation on CBI, wean to off in AM. Dc castillo at home in 3 days or once urine is clear. Maintain on abx given inflammation/pus found within prostate. Follow up in 2-3 weeks with PVR and path review. Urinary Catheter Management Urinary Catheter Management 3-way Urethral: Cath placed during this visit: no
[2024-03-06] MEDS: SOLIFENACIN SUCCINATE 10 MG TABLET PO (16:00)
[2024-03-06] MEDS: CARVEDILOL 6.25 MG TABLET PO (17:18)
[2024-03-06] MEDS: 0.9 % SODIUM CHLORIDE 1,000 ML 80 ML IV (17:19)
[2024-03-06 17:47] LABS: Carbon Dioxide 32.5 mmol/L (21.0-32.0); Chloride 104 mmol/L (98-107); Potassium 4.5 mmol/L (3.5-5.1); Sodium 136 mmol/L (136-145)
[2024-03-06] MEDS: SODIUM CHLORIDE IRRIG SOLUTION 3,000 ML 3000 ML IRR ×6 (18:22→23:50)
[2024-03-07] MEDS: SODIUM CHLORIDE IRRIG SOLUTION 3,000 ML 3000 ML IRR ×2 (01:32→02:20)
[2024-03-07 03:49] VITALS: BP 148/71; PULSE 63; TEMP 36.8; O2SAT 94
[2024-03-07] MEDS: CIPROFLOXACIN IN 5 % DEXTROSE 400 MG/200 ML PREMIX 200 MG IV (05:44)
[2024-03-07] MEDS: CARVEDILOL 6.25 MG TABLET PO (05:44)
[2024-03-07 07:44] VITALS: BP 156/74; PULSE 60; TEMP 36.4; O2SAT 96
[2024-03-07] MEDS: DOCUSATE SODIUM 100 MG CAPSULE 200 MG PO (08:36)
[2024-03-07] MEDS: AMLODIPINE BESYLATE 5 MG TABLET PO (08:36)
== END 2024-03-07 09:09 | disposition home or self-care (01) ==
LOC: SURGOUT 16:06 → MS 16:09
PROVIDERS: PCP Internal Medicine; Visit Provider Urology
PROC: (CPT 52601; principal; 2024-03-06 12:30)
DX: N40.1 Benign prostatic hyperplasia with lower urinary tract symptoms (principal); R97.20 Elevated prostate specific antigen [PSA]; K21.9 Gastro-esophageal reflux disease without esophagitis; I10 Essential (primary) hypertension; E78.5 Hyperlipidemia, unspecified; J44.9 Chronic obstructive pulmonary disease, unspecified; N35.911 Unspecified urethral stricture, male, meatal; N32.89 Other specified disorders of bladder; Z87.891 Personal history of nicotine dependence; I27.20 Pulmonary hypertension, unspecified
CPT/HCPCS: 52601; 36415; 80051; 88305; 96365; J0744; J1100; J2250; J2371; J2405; J2704; J3010

== ENCOUNTER 2024-05-21 08:59 | Outpatient (OUT) | payer MEDICARE, SELFPAY ==
[2024-05-21 09:12] LABS: Basophils Absolute Auto 0.1 10^3/uL (0.0-0.1); Basophils Percent Auto 1.2 % (0.2-2.0); Eosinophils Absolute Auto 0.3 10^3/uL (0.0-0.7); Eosinophils Percent Auto 4.6 % (0.9-7.0); Hematocrit 38.9 % (42.0-54.0); Hemoglobin 13.2 g/dL (14.0-18.0); Immature Granulocytes Abs Auto 0.02 10^3/uL (0.00-0.03); Immature Granulocytes Pct Auto 0.3 % (0.0-0.5); Lymphocytes Absolute Auto 2.1 10^3/uL (1.2-3.8); Lymphocytes Percent Auto 30.9 % (20.5-60.0); Mean Corpuscular HGB Conc 33.9 g/dL (29.9-35.2); Mean Corpuscular Hemoglobin 29.8 pg (25.9-34.0); Mean Corpuscular Volume 87.8 fL (80.0-94.0); Mean Platelet Volume 10.1 fL (9.5-13.5); Monocytes Absolute Auto 0.7 10^3/uL (0.3-0.8); Monocytes Percent Auto 10.6 % (1.7-12.0); Neutrophils Absolute Auto 3.6 10^3/uL (1.4-6.5); Neutrophils Percent Auto 52.4 % (43.0-75.0); Platelet Count 202 10^3/uL (150-450); Red Blood Count 4.43 10^6/uL (4.70-6.10); Red Cell Distribution Width 13.7 % (11.0-15.0); White Blood Count 6.8 10^3/uL (4.0-11.0)
== END 2024-05-21 09:00 | disposition home or self-care (01) ==
LOC: LAB 09:01
PROVIDERS: PCP Internal Medicine; Visit Provider Internal Medicine
DX: D64.9 Anemia, unspecified (principal)
CPT/HCPCS: 36415; 85025

== ENCOUNTER 2024-06-21 09:02 | Outpatient (OUT) | payer MEDICARE, SELFPAY ==
--- NOTE | 2024-06-21 09:06 | CT_ITS ---
The [address] [address] Patient Name: RSUSELL SANCHEZ MRN: [id number] date: 1955 Sex: M Assigned Patient Location: CT Current Patient Location: Accession/Order Number: [id number] Exam Date: 06/21/2024 09:10 Report Date: 06/24/2024 10:18 At the request of: GOLDY CAVANAUGH Procedure: CT lung screening low-dose EXAMINATION: CT lung screening low-dose HISTORY: History Of Tobacco Dependence COMPARISON: CT Lung Screening 06/01/2023 TECHNIQUE: Axial, Coronal, and Sagittal images were created without the administration of IV contrast material. Dose reduction techniques were achieved by using automated exposure control and/or adjustment of mA and/or kV according to patient size and/or use of iterative reconstruction technique. FINDINGS: LUNGS: Stable appearance of a few small densities/nodule/scarring. No suspicious nodules or acute infiltrates. PLEURA: No mass, effusion, or pneumothorax. VASCULATURE: No abnormality. LUIS FERNANDO: No mass or pathologic adenopathy. MEDIASTINUM: No mass or pathologic adenopathy. CARDIAC: No enlargement, pericardial thickening, or pericardial effusion. Coronary Artery calcifications: AORTA: No aneurysm or dissection. CHEST WALL: No mass or axillary adenopathy BONES: No bone lesion or fracture. LIMITED ABDOMEN: No suspicious findings. Limited images of the upper abdomen. OTHER: Negative. CT/CT lung screening low-dose IMPRESSION: 1. Lung-RADS 2- Benign Appearance or Behavior. Nodules with a very low likelihood of becoming a clinically active cancer due to size or lack of growth. Follow-up CT Chest in 1 year. Electronically authenticated by: GURPREET MILES Date: 06/24/2024 10:18
--- OUTSIDE RECORDS SUMMARY | 2024-06-21 09:17 | XMS_ITS | CCD ---
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 Attending Unavailable Lue, Meghan M. [...] Attending Unavailable Lue, Meghan M. Attending Unavailable LONNIE, THERESA E Attending Unavailable Lue, Meghan M. Attending Unavailable BallDO Gio Primary Care Provider [phone] MD Meghan Brito Attending Provider GLENNA BHARDWAJ Attending Unavailable GLENNA BHARDWAJ Attending Unavailable Ball, Gio Primary Care Unavailable Lue, Meghan M Admitting Unavailable Lue, Meghan M Attending Unavailable Lonnie, Theresa E Attending Unavailable Lonnie, Theresa E Admitting Unavailable Ball, Gio Primary Care Unavailable Lue, Meghan M. Attending Unavailable Lue, Meghan M. Attending Unavailable Lue, Meghan M. Admitting Unavailable Lue, Meghan M. Attending Unavailable Lue, Meghan M. Referring Unavailable Lue, Meghan M. Attending Unavailable Lue, Meghan M. Referring Unavailable Allergies Allergy Classification Reported Allergen(s) Allergy Type Date of Onset Reaction(s) Facility (20 sources) Cephalexin; Translations: [cephalexin] Drug Allergy 04-06-20 20 Unknown (qualifier value), Dyspnea (finding) [facility] Other (20 sources) Penicillins; Translations: [penicillins] Drug allergy 08-07-19 16 Unknown (qualifier value), Dyspnea (finding) [facility] (2 sources) Penicillin V Drug Allergy rash/cough [facility] Other (13 sources) Cephalexin; Translations: [Keflex] Drug Allergy 08-07-19 16 rash/cough [facility] (11 sources) Penicillin Drug Allergy rash/cough [facility] Other (7 sources) Keflex *CEPHALOSPORINS* Propensity to adverse reactions 02-29-20 Unknown [facility] Other (2 sources) Penicillin G Benzathine & Proc Drug allergy 02-29-20 Unknown [facility] Other (2 sources) patient allergy list reviewed by nurse or physicia Propensity to adverse reactions 03-02-20 Comment:Done [facility] Other (4 sources) Cephalosporins (Antibiotic); Translations: [Cephalosporins] Allergy to substance 11-28-[address] [facility] (1 source) Cephalexin Drug Allergy 02-29-[address] [facility] Repository Medications Current Medications Medication Drug [...] Daily, # 90 tab(s), Refills(s) 3, Pharmacy: [id number], 180, cm, 06/16/23 9:50:00 EST, Height/Length Dosing, 108.2, kg, 06/16/23 9:50:00 EST, Weight Dosing Start Date: 07/28/23 Status: Ordered Start: 01-30-2023 take 1 tablet by chris th once daily alfuzosin 10 mg ER Tab 10 mg = 1 tab(s), Oral, Daily, # 30 tab(s), Refills(s) 5, Pharmacy: [id number], 180, cm, 12/20/22 10:13:00 EDT, Height/Length Dosing, 102.5, kg, 12/20/22 10:13:00 EDT, Weight Dosing Start Date: 01/30/23 Status: Ordered Start: 07-14-2022 take 1 tablet by chris th once daily alfuzosin 10 mg ER Tab 10 mg = 1 tab(s), Oral, Daily, # 30 tab(s), Refills(s) 5, [facility]: [id number], 180, cm, 10/26/21 9:12:00 EDT, Height/Length Dosing, 95.2, kg, 10/26/21 9:12:00 EDT, Weight Dosing Start Date: 07/14/22 Status: Ordered Start: 07-08-2021 take 1 tablet by chris th once daily alfuzosin 10 mg ER Tab 10 mg = 1 tab(s), Oral, Daily, # 30 tab(s), Refills(s) 11, [id number] [facility], 180, cm, 07/08/21 15:57:00 EST, Height/Length Dosing, 95.2, kg, 07/08/21 15:57:00 EST, Weight Dosing Start Date: 07/08/21 Status: Ordered amLODIPine 5 mg oral tablet (6 sources) Dihydropyridine Calcium Channel Mary Start: 12-22-2023 [...] day(s), # 2 tab(s), Refills(s) 0, Pharmacy: [id number], 180, cm, 05/10/23 10:56:00 EST, Height/Length Dosing, 102, kg, 05/10/23 10:56:00 EST, Weight Dosing Start Date: 05/10/23 Stop Date: 05/11/23 Status: Ordered diazePAM 10 mg oral tablet (4 sources) Benzodiazepine Start: 05-10-2023 Valium 10 mg Tab 10 mg = 1 tab(s), Oral, Once, take 30 minutes prior to procedure, # 1 tab(s), Refills(s) 0, Pharmacy: [facility], 180, cm, 05/10/23 10:56:00 EST, Height/Length Dosing, 102, kg, 05/10/23 10:56:00 EST, Weight Dosing Start Date: 05/10/23 Status: Ordered folic acid 1 mg oral tablet (1 source) Start: 03-05-2024 take 1 mg by mouth once daily Folic Acid Active 1 MG PO Daily March 05, 2024 12:00am lisinopril 40 mg oral tablet (20 sources) [...] May, Active predniSONE 20 mg oral tablet (2 sources) Start: 02-29-2024 Prednisone Active 20 MG PO [...] at 11pm Orally BID for 1 days BIN:[id number] PCN: [id number] GROUP:[id number] ID:[id number] October, Not-Taking/PRN Start: 11-17-2020 Plenvu 140 GM dose 1 pouch at 4pm, dose 2 pouch A & B at 11pm Orally BID for 1 days BIN:[id number] PCN: CNRX GROUP:[id number] ID:[id number] October, Not-Taking Start: 11-17-2020 Plenvu 140 GM dose 1 pouch at 4pm, dose 2 pouch A & B at 11pm Orally BID for 1 days BIN:[id number]: CNRXGROUP:[id number] October, Not-Taking Start: 11-17-2020 Plenvu 140 GM dose 1 pouch at 4pm, dose 2 pouch A & B at 11pm Orally BID for 1 days BIN:[id number]: CNRXGROUP:[id number] October, Active methylPREDNISolone 4 mg oral tablet [...] Not-Taking/PRN rosuvastatin calcium 20 mg oral tablet (18 sources) HMG-CoA Reductase Inhibitor Start: 12-16-2020 End: 11-28-2023 take 20 mg by mouth once daily Rosuvastatin Discontinued 20 MG PO Daily December 16, 2020 12:00am November 28, 2023 9:01am Start: 03-26-2019 rosuvastatin O ral, Daily, Refills(s) 0 Start Date: 03/26/19 Status: Ordered Rosuvastatin Eliceo cium Not-Taking/PRN Rosuvastatin Eliceo cium Not-Taking Rosuvastatin Eliceo cium Active tamsulosin hydrochloride 0.4 mg oral capsule (4 sources) alpha-Adrenergic Mary Start: 12-16-2020 End: 11-28-2023 take 0.4 mg by mouth once daily Tamsulosin Discontinued 0.4 MG PO Daily December 16, 2020 12:00am November 28, 2023 9:01am Problems Active Problems Problem Classification Problem Date Documented Date Episodic/Chronic Asthma (1 source) Unspecified asthma with status asthmaticus; Translations: [UNS ASTHMA W/STATUS ASTHMATICUS] Onset: 08-30-2022 Chronic Chronic kidney disease (4 sources) Chronic kidney disease; Translations: [Chronic kidney disease, unspecified] 11-26-2023 Chronic Chronic obstructive pulmonary disease and bronchiectasis (20 sources) Acute exacerbation of chronic obstructive airways disease; Translations: [Chronic obstructive pulmonary disease with (acute) exacerbation] Onset: 08-30-2022 Chronic Deficiency and other anemia (16 sources) Anemia; Translations: [Anemia, unspecified] 11-26-2023 Episodic [...] 01-29-2019 Episodic Gout and other crystal arthropathies (4 sources) Acute gout; Translations: [Gout, unspecified] 02-29-2024 [...] Episodic Inflammatory conditions of male genital organs (18 sources) Chronic prostatitis; Translations: [Chronic prostatitis] Onset: 07-31-2023 04-23-2020 Chronic Lymphadenitis (7 sources) Lymphadenopathy; Translations: [Enlarged lymph nodes, unspecified] Onset: 11-29-2023 Episodic Nonspecific chest pain (2 sources) Precordial pain; Translations: [Precordial pain] Onset: 01-03-2024 Episodic Osteoarthritis (17 sources) Arthritis 01-29-2019 Chronic Other aftercare (1 source) Other intermediate (current) drug therapy; Translations: [OTH CUSHION BUILDER CURRENT DRUG THERAPY] Onset: 08-30-2022 Episodic Other aftercare (2 sources) Long-term current use of drug therapy; Translations: [Other intermediate (current) drug therapy] Episodic Other and unspecified [...] Onset: 01-03-2024 Episodic Other male genital disorders (13 sources) Male erectile dysfunction, unspecified; Translations: [Erectile [...] of mental health and substance abuse codes (16 sources) Personal history of nicotine dependence; Translations: [H/O: Disorder] Onset: 08-30-2022 Episodic Substance-related disorders (20 sources) Smoker; 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] Onset: 03-02-2018 Resolved: 11-18-2021 04-23-2020 Chronic Unclassified (17 sources) Finding of sensation of bladder 03-26-2020 [...] Test Name Value Interpretation Reference Range Facility Ambulatory Visit Summaryon 1 Ambulatory Visit Summary Ambulatory Visit Summary MICHAEL KILLIAN :1955 Visit Date:03/29/2024 Ambulatory Visit Instructions Your Diagnosis BPH with urinary obstruction Elevated PSA ED (erectile dysfunction) Enlarged lymph node Former smoker Your Care Team Attending Physician - Meghan Brito MD Primary Care Physician - GIO CAVANAUGH DO This Is Your Medications List Contact prescribing physician if questions or concerns albuterol (albuterol 0.083% Inh Haydee 3 mL) alfuzosin (alfuzosin 10 mg ER Tab) amlodipine (amLODIPine 5 mg Tab) carvedilol (carvedilol 6.25 mg Tab) lisinopril (lisinopril 40 mg Tab) Procedures Performed Cystoscopy (07/27/2023), Prostate biopsy specimen (06/06/2023), Transrectal biopsy of prostate using ultrasound (US) guidance (04/07/2020), Transrectal biopsy of prostate using ultrasound (US) guidance (08/12/2015), Hernia repair, Tonsillectomy. Discharge Vitals Height 180 cm Height 71 in Weight 108 kg Weight 237.6 lb BMI 33.33 What to do next Scheduled Follow-Up Appointments 2024 8:00 AM EDT With: Meghan Brito MD Where: [facility] [address] [place] [address]- You Need to Schedule the Following Appointments Follow Up with Meghan Brito MD, URL, URO When: Comments: 6 mos Where: [address], [place] [address] [phone] Medications What How Much When Why Instructions Unchanged albuterol (albuterol 0.083% Inh Haydee 3 mL) 3 Milliliter Inhalation Every 6 hours as needed for Shortness of breath or wheezing Q6H and PRN Contact prescribing physician if questions or concerns Unchanged alfuzosin (alfuzosin 10 mg ER Tab) 1 Tablets By Mouth Every day BPH with urinary obstruction Elevated PSA Contact prescribing physician if questions or concerns Unchanged amlodipine (amLODIPine 5 mg Tab) 1 Tablets By Mouth Every day Contact prescribing physician if questions or concerns Unchanged carvedilol (carvedilol 6.25 mg Tab) 1 Tablets By Mouth 2 times a day Contact prescribing physician if questions or concerns Unchanged lisinopril (lisinopril 40 mg Tab) 1 Tablets By Mouth Every day Contact prescribing physician if questions or concerns Allergies Cephalexin Monohydrate (SOB - Shortness of breath) penicillins (SOB - Shortness of breath) Problems Ongoing - Any problem that you are currently receiving treatment for. Arthritis BPH with urinary obstruction Chronic prostatitis ED (erectile dysfunction) Elevated PSA Enlarged lymph node Feeling of incomplete bladder emptying Former smoker Hesitancy HTN (hypertension) Hyperlipidemia Nocturia Smoker Varicosities of leg Weak urine stream Historical - Any problem that you are no longer receiving treatment for. Gastroesophageal reflux Patient Survey You may receive a survey via text or e-mail asking about your office visit. Please share your experience with us by completing your survey. We appreciate your feedback and thank you for choosing us for your care. Education Materials Benign Prostatic Hyperplasia Benign prostatic hyperplasia (BPH) is an enlarged prostate gland that is caused by the normal aging process. The prostate may get bigger as a man gets older. The condition is not caused by cancer. The prostate is a walnut-sized gland that is involved in the production of semen. It is located in front of the rectum and below the bladder. The bladder stores urine. The urethra carries stored urine out of the body. An enlarged prostate can [...] or symptoms? Symptoms of this condition include: ? Getting up often during the night to urinate. ? Needing to urinate frequently during the day. ? Difficulty starting urine flow. ? Decrease in size and strength of your urine stream. ? Leaking (dribbling) after urinating. ? Inability to pass urine. This needs immediate treatment. ? Inability to completely empty your bladder. ? Pain when you pass urine. This is more common if there is also an infection. ? Urinary tract infection (UTI). How is this diagnosed? This condition is diagnosed based on your medical history, a physical exam, and your symptoms. Tests will also be done, such as: ? A post-void bladder scan. This measures any denice (more content not included)... Normal [facility] Urology Office/Clinic Noteon 03-29-2024 Urology Office/Clinic Note Urology Office/Clinic Note Chief Complaint PO TURP HPI Staff PO Cysto, TURP, Meatal dilation 03/06/24, here to review path report. Last OV 11/29/23, dx: BPH with obstruction, elevated PSA, ED, enlarged lymph node, former smoker. *Alfuzosin ER 10mg qd Pt was to remove Fisher at home after urine was clear. Dysuria: no Incomplete bladder emptying: Pt. states he is not sure if he feel empty, PVR 21mL Hematuria: no Frequency: every 2-3 hours Urgency:no Nocturia: 2x's Stream: Pt. states better stream since TURP Post void dripping: very little Wearing pads/ Depends: yes, Pt. will 2-3 pads a day Urge incontinence: no Stress incontinence: no Incontinence without Sensory Awareness: mild Abdominal pain: no Flank pain: no History of Present Illness Tests reviewed: reviewed operative note, path report I have reviewed the previous [...] See HPI. Physical Exam Vitals & Measurements HT: 71 in HT: 180 cm WT: 108 kg WT: 237.6 lb BMI: 33.33 General Appearance: alert, no distress, well nourished, well developed male. Assessment/Plan Former Dr. Kern pt, 69 yo male with a history of elevated PSA [...] trilobar hypertrophy with large intravesical median lobe. [1] S/p TURP, Meatal dilation 03/06/24 (35.4g removed) - Path shows severe nodular glandular hyperplasia, including only occasional small evolving foci of benign adenomatous glandular hyperplasia. Only occasional incidental and overall minor degree of nonspecific stromal chronic inflammation observed. The pathology report was reviewed with the patient in detail today. There is no evidence of malignancy and no further evaluation of the tissue removed is planned. All questions were answered and the report discussed in terms that the patient could understand. PVR (cc): 06/30/23 - 208 11/29/23 - 127 03/29/24 - 21 IPSS 8 (13 on Alfuzosin, 17 prior) Tried Tamsulosin in the past, did not help as much as Alfuzosin. Reports he still has difficulty with feeling if he empties. Discussed this feeling is related to bladder. Advised pt his emptying has improved. Feels stream has improved. Advised pt if stream does spray or appear weaker in the future, may need to consider dilation as he had some narrowing. Still Taking Alfuzosin 10mg ER qd. Discussed stopping this medication once sxs stabilize. UA today shows large blood and small leuks. Advised pt this is expected PO and should improve with time and healing. Recommended pt to increase water intake and decrease activity if experiencing gross hematuria. -Wean off Alfuzosin -Cont sx monitoring -F/u in 6 mos or sooner 2. Elevated PSA (R97.20: Elevated prostate specific [...] - neg. Chronic inflammation in 1 core. [2] -Will cont to monitor PSA annually, will need order at next appt 3. ED (erectile dysfunction) (N52.9: Male erectile dysfunction, unspecified) BUD 2 (3). Continues to decline tx. 4. Enlarged lymph node (R59.9: Enlarged lymph nodes, unspecified) Prost (more content not included)... Normal [facility] Comment on above: Result Comment: Elec tronically Signed By: Meghan Brito MD\.br\Date and Time Signed: 03/29/24 09:47 EDT\.br\Electronically Co-Signed By: Carissa Hammonds\.br\Date and Time Co-Signed: 03/29/24 08:53 EDT 36on 03-06-2024 36 Regarding BP log scanned in on 02/28/2024: MD Grace Lott MA BP high most of the time. Increase amlodipin to 10 mg daily, check BP BID for 2 weeks and bring log. Spoke with patients and made her aware of medication increase. New RX sent to pharmacy. [facility] 03-06-2024 L Specimen: [id number] Received: 03/07/24 Status: VIJAY Alston Num: [id number] Spec Type: Surgical Subm Dr: Meghan Brito MD Tissues: A Prostate - Except Radical Resection, Tur, or Needle Biopsy (PROSTATE TISSUE) Procedures: HE/20, Gross/Micro L5 Age/ Patient Sex Location Account Attending Physician Michael Killian 68/M LABELL [id number] Meghan Brito MD SPEC NUM: [id number] RECD: 03/07/24 STATUS: CHAMPDemond ALSTON NUM: [id number] FANNIE: 03/06/[address]: Meghan Brito MD ENTERED: 03/07/[address] [facility] [address]: Madeline Cunha SPEC TYPE: Surgical DEPT: BERRY ARGUELLES ENTERED BY: [id number] RECV BY: [id number] ORDERED: HE/20, Gross/Micro L5 ORDERED: HE/20, Gross/Micro L5 Pathological Diagnosis Prostate tissue, TURP: -Apparently severe nodular glandular hyperplasia in many chips, including only occasional small evolving foci of benign adenomatous glandular hyperplasia, and at least occasional small foci of nodular stromal hyperplasia in occasional chips, consistent with the very severe degree of benign prostate hypertrophy (BPH) -Only occasional incidental and overall minor degree of nonspecific stromal chronic inflammation observed Clinical Information BPH with urinary obstruction, elevated PSA Gross Description The specimen is received in formalin with the patient's name and prostate tissue and consists of multiple green-pink fibrous portions of soft tissue measuring 12.0 x 5.0 x 4.0 cm in aggregate, and weighing 35.4 g. Wardrobe Specialty Worker sections are submitted in cassettes A1- A20 DM Specimen: [id number] Received: 03/07/24 Status: VIJAY Alston Num: [id number] Spec Type: Surgical Subm Dr: Meghan Brito MD Tissues: A Prostate - Except Radical Resection, Tur, or Needle Biopsy (PROSTATE TISSUE) Procedures: , Gross/Micro L5 Patient: Michael Killian [id number] (Continued) Specimen: [id number] Received: 03/07/24 (Continued) Signed (signature on file) Kelsy James MD 03/14/24 1541 Specimen: [id number] Received: 03/07/24 Status: VIJAY Alston Num: [id number] Spec Type: Surgical Subm Dr: Meghan Brito MD Tissues: A Prostate - Except Radical Resection, Tur, or Needle Biopsy (PROSTATE TISSUE) Procedures: , Gross/Micro L5 Patient: Michael Killian Eleazar [id number] (Continued) Specimen: [id number] Received: 03/07/24 (Continued) Microscopic Description Microscopic examinations are performed supporting the above interpretation CPT Codes 63903 Specimen: [id number] Received: 03/07/24 Status: VIJAY Alston Num: [id number] Spec Type: Surgical Subm Dr: Meghan Brito MD Tissues: A Prostate - Except Radical Resection, Tur, or Needle Biopsy (PROSTATE TISSUE) Procedures: HE/20, Gross/Micro L5 Patient: Michael Killian Eleazar [id number] (Continued) Signed (signature on file) Saad James MD 03/14/24 1541 Normal [facility] Laboratory - Chemistry and C hemistry - challengeon 03-06-2024 Chloride [Moles/Vol] 104 mmol/L 98-107 [facility] CO2 [Moles/Vol] 32.5 mmol/L High 21.0-32.0 [facility] Potassium [Moles/Vol] 4.5 mmol/L 3.5-5.1 [facility] Sodium [Moles/Vol] 136 mmol/L 136-145 [facility] Serum or plasma anion gap de terminationon 03-06-2024 Anion gap [Moles/Vol] 4.0 mmol/L [facility] Basophils Auto (Bld) [#/Vol] on 03-05-2024 Basophils (Bld) [#/Vol] 0.0 10 3/uL 0.0-0.[address] [facility] Basophils/100 WBC Auto (Bld) on 03-05-2024 Basophils/100 WBC (Bld) 0.4 % 0.2-2.[address] [facility] Eosinophils/100 WBC Auto (Bl d)on 03-05-2024 Eosinophils/100 WBC (Bld) 0.7 % Low 0.9-7.[address] [facility] Erythrocyte distribution wid th Auto (RBC) [Ratio]on 03-05-2024 Erythrocyte distribution width (RBC) [Ratio] 12.9 % 11.0-15.[address] [facility] Hematocrit Auto (Bld) [Volum e fraction]on 03-05-2024 Hematocrit (Bld) [Volume fraction] 40.6 % Low 42.0-54.[address] [facility] Hemoglobin [Mass/volume] in Bloodon 03-05-2024 Hemoglobin (Bld) [Mass/Vol] 13.8 g/dL Low 14.0-18.[address] [facility] Iron binding capacity [Mass/ volume] in Serum or Plasmaon 03-05-2024 Iron binding capacity [Mass/Vol] 318.0 ug/dL 250.0-450.[address] [facility] Iron saturation [Mass Fracti on] in Serum or Plasmaon 03-05-2024 Iron saturation [Mass fraction] 24.5 % [facility] Laboratory - Chemistry and C hemistry - challengeon 03-05-2024 Cobalamin (Vitamin B12) [Mass/Vol] 477 pg/mL [id number] [facility] Comment on above: Performed at: [address] [id number] Director: Alexi Mobley PhD, Phone: [phone] Ferritin [Mass/Vol] 270.0 ng/mL 26.0-388.0 [facility] Iron [Mass/Vol] 78.0 ug/dL 65.0-175.[address] [facility] Laboratory - Hematology and Cell countson 03-05-2024 Immature granulocytes/100 WBC (Bld) 0.7 % High 0.0-0.[address] [facility] Leukocytes [#/volume] correc rina for nucleated erythrocytes in Blood by Automated counon 03-05-2024 WBC corrected for nucl RBC Auto (Bld) [#/Vol] 7.4 10 3/uL 4.0-11.[address] [facility] Lymphocytes Auto (Bld) [#/Vo l]on 03-05-2024 Lymphocytes (Bld) [#/Vol] 1.3 10 3/uL 1.2-3.[address] [facility] Lymphocytes/100 WBC Auto (Bl d)on 03-05-2024 Lymphocytes/100 WBC (Bld) 17.5 % Low 20.5-60.[address] [facility] MCH Auto (RBC) [Entitic mass ]on 03-05-2024 MCH (RBC) [Entitic mass] 29.9 pg 25.9-34.[address] [facility] MCHC Auto (RBC) [Mass/Vol]on 03-05-2024 MCHC (RBC) [Mass/Vol] 34.0 g/dL 29.9-35.2 [facility] MCV Auto (RBC) [Entitic vol] on 03-05-2024 MCV (RBC) [Entitic vol] 88.1 fL 80.0-94.[address] [facility] Monocytes Auto (Bld) [#/Vol] on 03-05-2024 Monocytes (Bld) [#/Vol] 0.4 10 3/uL 0.3-0.[address] [facility] Monocytes/100 WBC Auto (Bld) on 03-05-2024 Monocytes/100 WBC (Bld) 6.0 % 1.7-12.[address] [facility] Neutrophils Auto (Bld) [#/Vo l]on 03-05-2024 Neutrophils (Bld) [#/Vol] 5.5 10 3/uL 1.4-6.[address] [facility] Neutrophils/100 WBC Auto (Bl d)on 03-05-2024 Neutrophils/100 WBC (Bld) 74.7 % 43.0-75.[address] [facility] No Panel Informationon 03-05 Eosinophils # (Auto) 0.1 10 3/uL 0.0-0.7 [facility] Folate 7.60 ng/mL Low 8.60-58.[address] [facility] Immature Granulocyte # (Auto) 0.05 10 3/uL High 0.00-0.[address] [facility] Platelet mean volume Auto (B ld) [Entitic vol]on 03-05-2024 Platelet mean volume (Bld) [Entitic vol] 10.0 fL 9.5-13.[address] [facility] Platelets Auto (Bld) [#/Vol] on 03-05-2024 Platelets (Bld) [#/Vol] 193 10 3/uL 150-[address] [facility] RBC Auto (Bld) [#/Vol]on RBC (Bld) [#/Vol] 4.61 10 6/uL Low 4.70-6.10 [facility] Estimated glomerular filtrat ion rate (GFR) non- Americanon 02-22-2024 GFR/1.73 sq M.predicted among non-blacks MDRD (S/P/Bld) [Vol rate/Area] mL/min/{1.73_m2} >=[address] [facility] Laboratory - Chemistry and C hemistry - challengeon 02-22-2024 Calcium [Mass/Vol] 9.0 mg/dL 8.5-10.1 [facility] Chloride [Moles/Vol] 104 mmol/L 98-107 [facility] CO2 [Moles/Vol] 27.5 mmol/L 21.0-32.0 [facility] Creatinine [Mass/Vol] 1.07 mg/dL 0.70-1.30 [facility] GFR/1.73 sq M.predicted MDRD (S/P/Bld) [Vol rate/Area] mL/min/{1.73_m2} >=[address] [facility] Glucose [Mass/Vol] 114 mg/dL High 74-106 [facility] Potassium [Moles/Vol] 4.2 mmol/L 3.5-5.1 [facility] Sodium [Moles/Vol] 139 mmol/L 136-145 [facility] Urea nitrogen [Mass/Vol] 16.0 mg/dL 7.0-18.[address] [facility] Urea nitrogen/Creatinine [Mass ratio] 15.0 mg/mg [facility] Serum or plasma anion gap de terminationon 02-22-2024 Anion gap [Moles/Vol] 11.7 mmol/L [facility] 36on 02-12-[address] Bhardwaj: MD [...] Dr. Bhardwaj in clinic this morning. Normal [facility] Office Visiton 02-12-2024 Follow-up visit [id number] Michael Killian 1955 M [facility] Provider Department Center 02/12/2024 GLENNA RAMIREZ Family History Problem Relation Age of Onset Diabetes Mother Heart attack Father Family Status - Relation Status Age at Mother Father Level of Service:75159 HI OFFICE/OUTPATIENT ESTABLISHED MOD MDM 30 MIN Normal [facility] 36on 01-30-2024 36 Patient had stress test last month for surgery clearance. It's scanned into PopUp. Can you please review? Thanks! Normal [facility] Office Visiton 01-03-2024 Follow-up visit [id number] Michael Killian 1955 M Date Provider Department Center 01/03/2024 GLENNA RAMIREZ Family History Problem Relation Age of Onset Diabetes Mother Heart attack Father Family Status - Relation Status Age at Mother Father Level of Service:46754 HI OFFICE/OUTPATIENT NEW MODERATE MDM 45 MINUTES Normal [facility] BMPon 12-25-2023 Anion gap [Moles/Vol] 9 mmol/L Normal 6-16 [facility] Comment on above: Performed By: #### 2 [id number] #### [facility] [address] [place] [address] Calcium [Mass/Vol] 9.4 mg/dL Normal 8.9-11.1 [facility] Comment on above: Performed By: #### 2 [id number] #### [facility] [address] [place] [address] Chloride [Moles/Vol] 104 mmol/L Normal 101-111 [facility] Comment on above: Performed By: #### 2 [id number] #### [facility] [address] [place] [address] CO2 [Moles/Vol] 30 mmol/L Normal 21-31 [facility] Comment on above: Performed By: #### 2 [id number] #### [facility] [address] [place] [address] Creatinine [Mass/Vol] 1.3 mg/dL Normal 0.5-1.3 [facility] Comment on above: Performed By: #### 2 [id number] #### [facility] [address] [place] [address] Glucose [Mass/Vol] 113 mg/dL Normal 55-199 [facility] Comment on above: Performed By: #### 2 [id number] #### [facility] [address] [place] [address] Potassium [Moles/Vol] 4.3 mmol/L Normal 3.5-5.3 [facility] Comment on above: Performed By: #### 2 [id number] #### [facility] [address] [place] [address] Sodium [Moles/Vol] 139 mmol/L Normal 135-145 [facility] Comment on above: Performed By: #### 2 [id number] #### [facility] [address] [place] [address] Urea nitrogen [Mass/Vol] 21 mg/dL Normal 5-21 [facility] Comment on above: Performed By: #### 2 [id number] #### [facility] [address] [place] [address] Urea nitrogen/Creatinine [Mass ratio] 16 No Units Normal 10-20 [facility] Comment on above: Performed By: #### 2 [id number] #### [facility] [address] [place] [address] CBC w/ Auto Diffon 4 Basophils/100 WBC (Bld) 2.0 % Normal 0.0-2.0 [facility] Comment on above: Performed By: #### 2 [id number] #### [facility] [address] [place] [address] Basophils/Leukocytes Auto (Bld) [Pure # fraction] 0.1 E9/L Normal 0.0-0.2 [facility] Comment on above: Performed By: #### 2 [id number] #### [facility] [address] [place] [address] Eosinophils (Bld) [#/Vol] 0.3 E9/L Normal 0.0-0.5 [facility] Comment on above: Performed By: #### 2 [id number] #### [facility] [address] [place] [address] Eosinophils/100 WBC (Bld) 4.8 % Normal 0.0-8.0 [facility] Comment on above: Performed By: #### 2 [id number] #### [facility] [address] [place] [address] Erythrocyte distribution width (RBC) [Ratio] 14.1 % Normal 10.9-14.2 [facility] Comment on above: Performed By: #### 2 [id number] #### [facility] [address] [place] [address] Hematocrit (Bld) [Volume fraction] 38.5 % Normal 37.7-49.0 [facility] Comment on above: Performed By: #### 2 [id number] #### [facility] [address] [place] [address] Hemoglobin (Bld) [Mass/Vol] 13.7 g/dL Normal 13.5-17.5 [facility] Comment on above: Performed By: #### 2 [id number] #### [facility] [address] [place] [address] Lymphocytes (Bld) [#/Vol] 1.6 E9/L Normal 1.0-4.0 [facility] Comment on above: Performed By: #### 2 [id number] #### [facility] [address] [place] [address] Lymphocytes/100 WBC (Bld) 29.7 % Normal 14.0-50.0 [facility] Comment on above: Performed By: #### 2 [id number] #### [facility] [address] [place] [address] MCH (RBC) [Entitic mass] 30.3 pg Normal 27.0-34.0 [facility] Comment on above: Performed By: #### 2 [id number] #### [facility] [address] [place] [address] MCHC (RBC) [Mass/Vol] 35.5 g/dL Normal 31.4-36.0 [facility] Comment on above: Performed By: #### 2 [id number] #### [facility] [address] [place] [address] MCV (RBC) [Entitic vol] 85.3 fL Normal 80.0-100.0 [facility] Comment on above: Performed By: #### 2 [id number] #### [facility] [address] [place] [address] Monocytes (Bld) [#/Vol] 0.5 E9/L Normal 0.2-1.0 [facility] Comment on above: Performed By: #### 2 [id number] #### [facility] [address] [place] [address] Neutrophils (Bld) [#/Vol] 3.1 E9/L Normal 2.0-7.5 [facility] Comment on above: Performed By: #### 2 [id number] #### [facility] [address] [place] [address] Neutrophils/100 WBC (Bld) 55.2 % Normal 36.0-75.0 [facility] Comment on above: Performed By: #### 2 [id number] #### [facility] [address] [place] [address] Platelet 166.0 E9/L Normal 150.0-500.0 [facility] Comment on above: Performed By: #### 2 [id number] #### [facility] [address] [place] [address] Platelet mean volume (Bld) [Entitic vol] 8.6 fL Normal 6.4-10.8 [facility] Comment on above: Performed By: #### 2 [id number] #### [facility] [address] [place] [address] RBC (Bld) [#/Vol] 4.5 E12/L Normal 4.3-5.9 [facility] Comment on above: Performed By: #### 2 [id number] #### [facility] [address] [place] [address] WBC corrected for nucl RBC Auto (Bld) [#/Vol] 5.5 E9/L Normal 4.0-11.0 [facility] Comment on above: Performed By: #### 2 [id number] #### [facility] [address] [place] [address] CHEMISTRYOrdered By: PriceMe SYSTEM on 12-25-2023 Anion gap [Moles/Vol] 9 [...] 35.0 s Normal 25.1 - 36.5 second(s) [facility] Auto Coag Comment on above: Interpretive Data: Amor grigsby 15 days - 4 weeks 1 - [...] the same coagulation reagent and instrumentation as [facility]. Currently there are no coagulation studies available worldwide for children to 14 days, and no normal ranges. Heparin therapeutic range (represented by Anti-Factor Xa activity of 0.2 - 0.4 U/mL) corresponds to PTT of 56.6 - 109.0 sec. INR Coag (PPP) [Relative time] 1.01 {INR} Invalid Interpretation Code [facility] Auto Coag Comment on above: Interpretive Data: I NR results are specifically intended to assess patients stabilized on long-term Anticoagulation therapy suggested INR s Less Intensive Anticoagulation 2.0 3.0 Conventional Range 3.0 4.5 PT Coag (PPP) [Time] 11.3 s Normal 9.4 - 1 2.5 second(s) [facility] Auto Coag Comment on above: Interpretive Data: [...] the same coagulation reagent and instrumentation as [facility]. Currently there are no coagulation studies available [...] Coag (PPP) [Time] 35.0 second(s) Normal 25.1-36.5 [facility] Comment on above: Result Comment: Para [...] the same coagulation reagent and instrumentation as [facility]. Currently there are no coagulation studies available worldwide for children to 14 days, and no normal ranges. Heparin therapeutic range (represented by Anti-Factor Xa activity of 0.2 - 0.4 U/mL) corresponds to PTT of 56.6 - 109.0 sec. Performed By: #### 1 [id number] #### [facility] [address] [place] [address] INR Coag (PPP) [Relative time] 1.01 {INR} Invalid Interpretation Code [facility] Comment on above: Result Comment: INR results are specifically intended to assess patients stabilized on long-term Anticoagulation therapy suggested INR?s ?Less Intensive Anticoagulation? 2.0 ? 3.0 Conventional Range 3.0 ? 4.5 Performed By: #### 1 [id number] #### [facility] [address] [place] [address] PT Coag (PPP) [Time] 11.3 second(s) Normal 9.4-12.5 [facility] Comment on above: Result Comment: 15 [...] the same coagulation reagent and instrumentation as [facility]. Currently there are no coagulation studies available worldwide for children to 14 days, and no normal ranges. Performed By: #### 1 [id number] #### [facility] [address] [place] [address] UA with Cult Rflxon 12-25-19 24 Bilirubin Ql (U) Negative Normal Negative [facility] Comment on above: Performed By: #### 4 [id number] #### [facility] [address] [place] [address] Clarity (U) Clear Normal Clear [facility] Comment on above: Performed By: #### 4 [id number] #### [facility] [address] [place] [address] Color (U) Light-Yellow Normal Yellow [facility] Comment on above: Result Comment: Micr oscopic readings are only performed on those samples that meet specific criteria set forth by [facility]. Performed By: #### 4 [id number] #### [facility] [address] [place] [address] Glucose Ql (U) Negative Normal Negative [facility] Comment on above: Performed By: #### 4 [id number] #### [facility] [address] [place] [address] Hemoglobin Auto test strip (U) [Mass/Vol] Negative Normal Negative [facility] Comment on above: Performed By: #### 4 [id number] #### [facility] [address] [place] [address] Ketones Auto test strip Ql (U) Negative Normal Negative [facility] Comment on above: Performed By: #### 4 [id number] #### [facility] [address] [place] [address] Leukocyte esterase Auto test strip Ql (U) Negative Normal Negative [facility] Comment on above: Performed By: #### 4 [id number] #### [facility] [address] [place] [address] Nitrite Auto test strip Ql (U) Negative Normal Negative [facility] Comment on above: Performed By: #### 4 [id number] #### [facility] [address] [place] [address] pH (U) 5.5 [pH] Invalid Interpretation Code 5.0-9.0 [facility] Comment on above: Performed By: #### 4 [id number] #### [facility] [address] [place] [address] Protein Ql (U) Negative Normal Negative [facility] Comment on above: Performed By: #### 4 [id number] #### [facility] [address] [place] [address] Specific gravity (U) [Rel density] 1.012 Invalid Interpretation Code 1.005-1.030 [facility] Comment on above: Performed By: #### 4 [id number] #### [facility] [address] [place] [address] Urobilinogen (U) [Mass/Vol] Negative Normal Negative [facility] Comment on above: Performed By: #### 4 [id number] #### [facility] [address] [place] [address] Type of Urine collection method Clean Catch Normal [facility] Comment on above: Performed By: #### 4 [id number] #### [facility] [address] [place] [address] URINALYSISOrdered By: SYSTEM SYSTEM on 12-25-2023 Bilirubin [...] that meet specific criteria set forth by [facility]. Glucose Ql (U) Negative Normal Negativemg/d L [facility] UA Auto SS Hemoglobin Auto test strip (U) [Mass/Vol] Negative Normal Negativemg/d L [facility] UA Auto SS Ketones Auto test strip Ql (U) Negative Normal Negativemg/d L [facility] UA Auto SS Leukocyte esterase Auto test strip Ql (U) Negative Normal NegativeLeu/ uL FT UA Auto SS Nitrite Auto test strip Ql (U) Negative Normal Negativemg/d L [facility] UA Auto SS pH (U) 5.5 *NA* (12/25/23 7:53 AM) Invalid Interpretation Code 5.0 - 9.0 [facility] UA Auto SS Protein Ql (U) Negative Normal Negativemg/d L [facility] UA Auto SS Specific gravity (U) [Rel density] 1.012 *NA* (12/25/23 7:53 AM) Invalid Interpretation Code 1.005 - 1.030 [facility] UA Auto SS Urobilinogen (U) [Mass/Vol] Negative Normal Negativemg/d L [facility] UA Auto SS URINALYSISOrdered By: Genevieve Quintero on 12-25-2023 UA Spec Desc Clean Catch (12/25/23 7:53 AM) Normal [facility] UA Auto SS XR Chest 2 Viewson [...] REJI Technologist: TALAT Technical Comments Radiation Dose: ana Mejia in mGy = na DAP = na Normal [facility] eGFRon 12-25-2023 eGFR 60 mL/min/1.73 m2 Normal >=59 [facility] Comment on above: Order Comment: Order added by Discern Expert. Performed By: #### 1 [id number] #### [facility] [address] [place] [address] Reminderson 12-06-2023 Reminders - From: Carissa Hammonds To: NANCY - Recalls Lue; Sent: 06/16/2023 11:03:12 EST Show up: 11/15/2023 12:03:00 EDT Subject: PSA and CT scan Reminder Message Please Remember to:_have pt get PSA and CT pelvis wo con done prior to appt. Pt had CT done on 07/05/23, scoped by [facility] on 07/31/23. CTU reviewed at that time. Pt to follow up in 4-5 months w/ PSA, possible surgery discussed for prostate size. Pt seen [facility] 11/29/23. Scheduled for TURP Normal [facility] Screenson 12-01-2023 Screens [id number] #1.00TIFF [facility] Screens [id number] #1.00TIFF [facility] Consent for Procedure/Surger yon 11-30-2023 Consent for Procedure/Surgery [id number]# 1.00TIFF [facility] Patient Educationon 11-29-19 Patient Education [...] these instructions at home: Medicines ? Take cqql-ivl-lmnvmeu and prescription medicines only as told by [...] keep your urine pale yellow. ? Take asem-knz-mcubzet or prescription medicines. ? Eat foods that [...] provider. Document Revised: 03/08/2022 Document Reviewed: 03/08/2022 [employer] Patient Education ? 2022 [employer] Transurethral Resection o (more content not included)... Normal [facility] Urology Office/Clinic Noteon 11-29-2023 Urology Office/Clinic [...] pelvic jameel (more content not included)... Normal [facility] Comment on above: Result Comment: Elec tronically Signed By: Daryl HAMILTON, Meghan Tucker\.br\Date and Time Signed: 11/29/23 16:11 EDT\.br\Electronically Co-Signed By: Carissa Hammonds\.br\Date and Time Co-Signed: 11/29/23 11:34 EDT Basophils Auto (Bld) [#/Vol] on 11-24-2023 Basophils (Bld) [#/Vol] 0.1 10 3/uL 0.0-0.[address] [facility] Basophils/100 WBC Auto (Bld) on 11-24-2023 Basophils/100 WBC (Bld) 1.4 % 0.2-2.[address] [facility] Cholesterol in LDL Calc [Mas s/Vol]on 11-24-2023 Cholesterol in LDL [Mass/Vol] 135.0 mg/dL [facility] Comment on above: <100 mg/dl [id number] 0-129 mg/dl NEAR OR ABOVE [id number] mg/dl BORDERLINE [id number] mg/dl HIGH>190 mg/dl VERY HIGH Cholesterol in VLDL Calc [Ma ss/Vol]on 11-24-2023 Cholesterol in VLDL [Mass/Vol] 19.2 mg/dL [facility] Eosinophils/100 WBC Auto (Bl d)on 11-24-2023 Eosinophils/100 WBC (Bld) 4.8 % 0.9-7.[address] [facility] Erythrocyte distribution wid th Auto (RBC) [Ratio]on 11-24-2023 Erythrocyte distribution width (RBC) [Ratio] 13.2 % 11.0-15.[address] [facility] Estimated glomerular filtrat ion rate (GFR) non- Americanon 11-24-2023 GFR/1.73 sq M.predicted among non-blacks MDRD (S/P/Bld) [Vol rate/Area] 51 mL/min/{1.73_m2} >=[address] [facility] Globulin Calc (S) [Mass/Vol] on 11-24-2023 Globulin (S) [Mass/Vol] 3.5 g/dL [facility] Hematocrit Auto (Bld) [Volum e fraction]on 11-24-2023 Hematocrit (Bld) [Volume fraction] 39.3 % 42.0-54.[address] [facility] Hemoglobin [Mass/volume] in Bloodon 11-24-2023 Hemoglobin (Bld) [Mass/Vol] 12.9 g/dL 14.0-18.[address] [facility] Laboratory - Chemistry and C hemistry - challengeon 11-24-2023 Albumin [Mass/Vol] 3.8 g/dL 3.4-5.0 [facility] ALP [Catalytic activity/Vol] 72 U/L 46-[address] [facility] ALT [Catalytic activity/Vol] 25 U/L 16-[address] [facility] AST [Catalytic activity/Vol] 17 U/L 15-[address] [facility] Bilirubin [Mass/Vol] 0.9 mg/dL 0.2-1.0 [facility] Calcium [Mass/Vol] 8.9 mg/dL 8.5-10.1 [facility] Chloride [Moles/Vol] 105 mmol/L 98-107 [facility] Cholesterol [Mass/Vol] 188 mg/dL <=[address] [facility] Cholesterol in HDL [Mass/Vol] 34 mg/dL 40-[address] [facility] Comment on above: > or =60 mg/dl - LOW CARDIOVASCULAR RISK<40 mg/dl - HIGH CARDIOVASCULAR RISK CO2 [Moles/Vol] 28.1 mmol/L 21.0-32.0 [facility] Creatinine [Mass/Vol] 1.40 mg/dL 0.70-1.30 [facility] GFR/1.73 sq M.predicted MDRD (S/P/Bld) [Vol rate/Area] mL/min/{1.73_m2} >=[address] [facility] Glucose [Mass/Vol] 114 mg/dL 74-106 [facility] Potassium [Moles/Vol] 4.2 mmol/L 3.5-5.1 [facility] Protein [Mass/Vol] 7.3 g/dL 6.4-8.2 [facility] Sodium [Moles/Vol] 142 mmol/L 136-145 [facility] Triglyceride [Mass/Vol] 96 mg/dL <=[address] [facility] Urea nitrogen [Mass/Vol] 22.0 mg/dL 7.0-18.[address] [facility] Urea nitrogen/Creatinine [Mass ratio] 15.7 mg/mg [facility] Laboratory - Hematology and Cell countson 11-24-2023 Immature granulocytes/100 WBC (Bld) 0.2 % 0.0-0.[address] [facility] Leukocytes [#/volume] correc rina for nucleated erythrocytes in Blood by Automated counon 11-24-2023 WBC corrected for nucl RBC Auto (Bld) [#/Vol] 5.0 10 3/uL 4.0-11.[address] [facility] Lymphocytes Auto (Bld) [#/Vo l]on 11-24-2023 Lymphocytes (Bld) [#/Vol] 1.6 10 3/uL 1.2-3.[address] [facility] Lymphocytes/100 WBC Auto (Bl d)on 11-24-2023 Lymphocytes/100 WBC (Bld) 31.0 % 20.5-60.[address] [facility] MCH Auto (RBC) [Entitic mass ]on 11-24-2023 MCH (RBC) [Entitic mass] 28.4 pg 25.9-34.[address] [facility] MCHC Auto (RBC) [Mass/Vol]on 11-24-2023 MCHC (RBC) [Mass/Vol] 32.8 g/dL 29.9-35.2 [facility] MCV Auto (RBC) [Entitic vol] on 11-24-2023 MCV (RBC) [Entitic vol] 86.6 fL 80.0-94.[address] [facility] Monocytes Auto (Bld) [#/Vol] on 11-24-2023 Monocytes (Bld) [#/Vol] 0.4 10 3/uL 0.3-0.[address] [facility] Monocytes/100 WBC Auto (Bld) on 11-24-2023 Monocytes/100 WBC (Bld) 8.1 % 1.7-12.[address] [facility] Neutrophils Auto (Bld) [#/Vo l]on 11-24-2023 Neutrophils (Bld) [#/Vol] 2.8 10 3/uL 1.4-6.[address] [facility] Neutrophils/100 WBC Auto (Bl d)on 11-24-2023 Neutrophils/100 WBC (Bld) 54.5 % 43.0-75.[address] [facility] No Panel Informationon 11-23 Eosinophils # (Auto) 0.2 10 3/uL 0.0-0.7 [facility] Immature Granulocyte # (Auto) 0.01 10 3/uL 0.00-0.[address] [facility] Prostate Specific Antigen Screen 6.70 ng/mL <=4.[address] [facility] Platelet mean volume Auto (B ld) [Entitic vol]on 11-24-2023 Platelet mean volume (Bld) [Entitic vol] 10.3 fL 9.5-13.[address] [facility] Platelets Auto (Bld) [#/Vol] on 11-24-2023 Platelets (Bld) [#/Vol] 177 10 3/uL 150-[address] [facility] RBC Auto (Bld) [#/Vol]on RBC (Bld) [#/Vol] 4.54 10 6/uL 4.70-6.10 [facility] Serum or plasma albumin/glob ulin mass ratioon 11-24-2023 Albumin/Globulin [Mass ratio] 1.1 {ratio} [facility] Serum or plasma anion gap de terminationon 11-24-2023 Anion gap [Moles/Vol] 13.1 mmol/L [facility] Serum or plasma total choles terol/high density lipoprotein (HDL) cholesterol mass juve 11-24-2023 Cholesterol.total/Cho lesterol in HDL [Mass ratio] 5.5 {ratio} [facility] Comment on above: 3.3 - 4.4 LOW RISK4. 4 - 7.1 AVERAGE RISK7.1 - 11.0 MODERATE RISK>11.0 HIGH RISK Consent for Procedure/Surger yon 07-31-2023 Consent for Procedure/Surgery [id number] 6#1.00TIFF Normal [facility] Consent for Treatmenton Consent for Treatment [id number] #1.00TIFF Normal [facility] Inpatient Patient Summaryon 07-31-2023 Inpatient Patient Summary [place] [address] Clinical Summary Person Information Name: MICHAEL KILLIAN Age: 68 Years : 1955 Sex: Male PCP: GIO CAVANAUGH DO Marital Status: Race: White Ethnicity: Non- or Language: Portuguese Visit Id: Visit Reason: GROSS HEMATURIA Speciality: Acuity: Enc Type: Outpatient Med Service: Surgery Arrival: 07/31/2023 07:51:46 Discharge: Dispo Type: Address: [address] [place] [address] [place] [phone] Provider Notes: Diagnosis: BPH with urinary obstruction; [...] Follow up: With: Address: When: Meghan Brito [address] [place] [address] [place], [place] [phone] Business (1) Comments: Office to schedule follow up in 3-4 months or call sooner for procedure (pt knows will be done by partner/referred out if during leave) Patient Education Information: Robot-Assisted Laparoscopic Radical Prostatectomy; Transurethral Resection of the Prostate; EU - Cystoscopy Discharge Instructions (CUSTOM) [facility] IntraOperative Documentson 0 07-31-2023 IntraOperative Documents [id number] 6#1.00TIFF [facility] Main OR Intraoperative Recor don 07-31-2023 Main OR Intraoperative Record IntraOp Document Type FTURO Summary Primary Physician: Meghan Brito MD Finalized Date/Time: 07/31/23 09:01:26 Pt. Name: MICHAEL KILLIAN/Sex: 1955 Male Med Rec #: [id number] Physician: Meghan Brito MD Financial #: [id number] Pt. Type: O Room/Bed: / Admit/Disch: 07/31/23 [...] Rachana Felton Role Performed Surgeon - Primary Parachute Supervisor - Primary Scrub - Primary Time In [...] Participants JAY Bird RN, Applicable) Bette Felton SOLUTIONS DELIVERY CONSULTANT, Rachana Alcantar Time Out Complete 07/31/23 08:49:00 [...] JAY Bird RN, Ruthann 07/31/23 09:01 Normal [facility] Main OR Preoperative Recordo n 07-31-2023 Main OR Preoperative Record Holding Area Document Type FTURO Summary Primary Physician: Meghan Brito MD Finalized Date/Time: 07/31/23 08:50:15 Pt. Name: MICHAEL KILLIAN /Sex: 1955 Male Med Rec #: [id number] Physician: Meghan Brito MD Financial #: [id number] Pt. Type: O Room/Bed: / Admit/Disch: 07/31/23 [...] JAY Bird RN, Ruthann 07/31/23 08:50 Normal [facility] Operative Reporton Operative Report Patient: MICHAEL KILLIAN Age: 68 years Sex: Male : 1955 Associated Diagnoses: None Author: Meghan Brito MD Procedure Operative Information Details: Date/ Time: 07/31/2023 09:06:00. Pre-Op Dx: BPH with urinary obstruction (AXU26-UB N40.1, Discharge, Medical), Feeling of incomplete bladder emptying (HGR08-UQ R39.14, Discharge, Medical), Gross hematuria (VJV74-BW R31.0, Discharge, Medical). Post-Op Dx: Same. Anesthesia [...] BPH workup and gross hematuria. . Normal [facility] Comment on above: Result Comment: Elec tronically Signed By: Meghan Brito MD\.br\Date and Time Signed: 07/31/23 09:10 EST Outpatient Surgery Discharge Instructionon 07-31-2023 Outpatient Surgery Discharge Instruction [address] [address] Patient Discharge Instructions PERSON INFORMATION [...] Follow up: With: Address: When: Meghan Brito [address], [place] [address], [employer] [address] [address] [phone] Business (1) Comments: Office to schedule follow [...] including vitamins, herbs, eye drops, creams, and qnyk-fia-laknebq medicines. ? Any problems you or family [...] tells you to take them. ? Taking mxld-xoo-bcesydq medicines, vitamins, herbs, and supplements. ? Follow your health care provider's instructions about cleaning out your bowels. Surgery s (more content not included)... Normal [facility] Progress Note-Physicianon Progress Note-Physician Patient: MICHAEL [...] Daily, # 90 tab(s), Refills(s) 3, Pharmacy: [facility], 180, cm, 06/16/23 9:50:00 EST, Height/Length Dosing, 108.2, kg, 06/16/23 9:50:00 EST, Weight Dosing Documented Medications Documented carvedilol 6.25 mg Tab: 6.25 mg = 1 tab(s), Oral, BID, # 60 tab(s), Refills(s) 0 lisinopril 40 mg Tab: mg tab(s), Oral, Daily, Refills(s) 0 Impression and Plan Assessment and Plan: Diagnosis: BPH with urinary obstruction (GFQ94-WA N40.1, Discharge, Medical), Pelvic lymphadenopathy (WWP01-ZF R59.0, Working, Medical), Chronic prostatitis (XZM53-OS N41.1, Discharge, Medical), Feeling of incomplete bladder emptying (NIG67-GH R39.14, Discharge, Medical), Gross hematuria (GAH03-XV R31.0, Discharge, Medical). Assessment and Plan: Diagnosis: BPH with urinary obstruction (NZU75-SB N40.1, Discharge, Medical), Chronic prostatitis (RMA32-LK N41.1, Discharge, Medical), Feeling of incomplete bladder emptying (EMI98-YU R39.14, Discharge, Medical), Gross hematuria (HXH87-IM R31.0, Discharge, Medical), Pelvic lymphadenopathy (LGW17-QZ R59.0, Working, Medical). 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 Gross hematuria - after [place] CTU 07/05/23 at [facility] - neg for upper tract filling [...] 4 to 5 months with PVR Normal [facility] Comment on above: Result Comment: Elec tronically Signed By: Daryl HAMILTON, Meghan Oshea.leslie\Date and Time Signed: 07/31/23 12:31 EST RAD - CT Reporton 07-10-2023 RAD - CT Report [id number]# 1.00TIFF Normal [facility] Lab Reportson 07-07-2023 Lab Reports [id number]# 1.00TIFF Normal [facility] Lab Reports [id number] #1.00TIFF Normal [facility] Urine Cytology ([facility])on 0 07-05-2023 Urine Cytology Diagnosis Info Invalid Interpretation Code [facility] Comment on above: Result Comment: A:Ur ine,Urine:Voided Interpretation - MicroScopic Description - Adequacy - Gross Description Site ID:A color Dark Glascock fixative Alcohol Specimen designated Urine received in alcohol preservative and labeled with the patient?s name, consists of 110ml cloudy dark peach fluid. Electronically signed by : on: 07/05/2023 13:00:05 Performed By: #### 1 [id number] ####[facility] [address] [place] [address] Urine Cytology ([facility])on 06-30-2023 UC Method of Extraction Voided Normal [facility] Comment on above: Performed By: #### 1 [id number] ####[address] [address] UC Number of Jars 1 Invalid Interpretation Code [facility] Comment on above: Performed By: #### 1 [id number] ####[facility] [address] [place] [address] UC Specimen Urine Normal [facility] Comment on above: Performed By: #### 1 [id number] ####[facility] [address] [place] [address] Type of Service Technical Only Normal [facility] Comment on above: Performed By: #### 1 [id number] ####[address] [address] IntraOperative Documentson 1 08-23-2022 IntraOperative Documents [id number] 0#1.00TIFF Normal [facility] Pathology Noteon 06-22-2023 Pathology Note [id number] #1.00TIFF Normal [facility] Screenson 06-20-2023 Screens [id number] [facility] [id number] #1.00TIFF [facility] Ambulatory Visit Summaryon 1 08-17-2022 Ambulatory Visit Summary MICHAEL KILLIAN :1955 Visit Date:06/16/2023 Ambulatory Visit Instructions Your Diagnosis Elevated PSA BPH with urinary obstruction ED (erectile dysfunction) Former smoker Enlarged lymph node Tests Performed Urnls Dip Stick Auto w/o Microscopy POC [address] CT Pelvis w/o Contrast -- Results Pending -- Please visit your patient portal for your results or contact your primary care physician. Your Care Team Attending Physician - Daryl HAMILTON, Meghan Tucekr Primary Care Physician - GIO CAVANAUGH DO [...] AM EST Where: [facility] Patient Educationon 06-16-20 Patient Education Oncology [...] Where to find more information ? The [place] [employer]: www.cancer.org ? [place] [employer]: www.auanet.org Contact a health care [...] adds flu (more content not included)... Normal [facility] Urology Office/Clinic Noteon 06-16-2023 Urology Office/Clinic Note Chief Complaint S/P to MRI proste and review path HPI Staff S/p to MR prostate wo/ w con @ [facility] on 04/03/23 Review path report done 06/06/23 [...] cancer upon bx. 95% likelihood of detecting [place] scores >=7 cancer. The PCPT (prostate cancer [...] consent jane (more content not included)... Normal [facility] Comment on above: Result Comment: Elec tronically Signed By: Meghan Brito MD\.br\Date and Time Signed: 06/16/23 15:18 EST\.br\Electronically Co-Signed By: Carissa Hammonds\.br\Date and Time Co-Signed: 06/16/23 11:02 EST Main OR Intraoperative Recor don 06-09-2023 Main OR Intraoperative Record IntraOp Document Type FT Summary Primary Physician: Meghan Brito MD Finalized Date/Time: 06/09/23 09:45:57 Pt. Name: DANIELMICHAEL/Sex: 1955 Male Med Rec #: [id number] Physician: Meghan Brito MD Financial #: [id number] Pt. Type: A Room/Bed: [place] [address] Admit/Disch: 06/06/23 13:31:36 - 06/06/23 18:00:13 Institution: [...] Performed Surgeon - Primary Scrub - Primary Parachute Supervisor - Primary Time In 06/06/23 16:38:00 06/06/23 [...] Tucker, Given Participants Niall Watson, Jacinta Don Ii, Waqar ENCISO, Sadie Chinchilla Time Out Complete [...] and tissue Entry 1 Skin Integrity Intact, [place], Warm, and Skin Abnormality No Dry Outcomes [...] Board Right (more content not included)... Normal [facility] Discharge Instructionson Discharge Instructions [id number] 9#1.00TIFF Normal [facility] IntraOperative Documentson 1 08-09-2022 IntraOperative Documents [id number] 5#1.00TIFF Normal [facility] IntraOperative Documents [id number] 9#1.00TIFF Normal [facility] IntraOperative Documents [id number] 9#1.00TIFF Normal [facility] Preoperative Documentson Preoperative Documents [id number] 5#1.00TIFF Normal [facility] Consent for Procedure/Surger yon 06-06-2023 Consent for Procedure/Surgery [id number] 58#1.00TIFF Normal [facility] Consent for Treatmenton 05-26 Consent for Treatment [id number] #1.00TIFF Normal [facility] Discharge Instructionson Discharge Instructions MICHAEL KILLIAN [...] Meghan Brito MD Where: [facility] Normal [facility] Comment on above: Result Comment: Elec tronically Signed By: Alcides ENCISO, Dori Mallory\.leslie\Date and Time Signed: 06/06/23 17:16 EST H&P Updateon 06-06-2023 H&P Update [id number] 9#1.00TIFF Normal [facility] Inpatient Patient Summaryon 06-06-2023 Inpatient Patient Summary [place] [address] [facility] Clinical Discharge Instructions PERSON INFORMATION Name: MICHAEL KILLIAN PHYSICIANS Admitting Physician: Meghan Brito MD Attending Physician: Meghan Brito MD PCP: GIO CAVANAUGH DO Diagnosis: Elevated PSA Comment: PATIENT EDUCATION INFORMATION Instructions: EU - Transrectal Ultrasound of the Prostate with US guided biopsy Discharge Instructions (CUSTOM) Medication Leaflets: Follow up: With: Address: When: Meghan Brito Comments: Keep scheduled appointment Type Location Start Finish [place] Office Visit [facility] 06/14/2023 10:30 AM 06/14/2023 10:45 AM Confirmed [...] Tab) By Mouth every day. Comment: Normal [facility] Operative Reporton 3 Operative Report Patient: MICHAEL KILLIAN Age: 68 years Sex: Male : 1955 Associated Diagnoses: None Author: Meghan Brito MD Procedure Procedure Date: 06/06/2023. Confirmed: patient, procedure, site, safety procedures followed. Performed by: Meghan Brito MD Type of procedure: Procedure: 1. Transrectal ultrasound [...] . Impression and Plan Diagnosis Elevated PSA (UOR28-ZC R97.20, Discharge, Medical). Diagnosis Elevated PSA (URZ96-XS R97.20, Discharge, Medical). Normal [facility] Comment on above: Result Comment: Elec tronically Signed By: Meghan Brito MD\.br\Date and Time Signed: 06/06/23 16:58 EST Outpatient Surgery Discharge Instructionon 06-06-2023 Outpatient Surgery Discharge Instruction [place] [id number] Patient Discharge Instructions PERSON INFORMATION Name: MICHAEL [...] Location Start [place]ish [place] Office Visit [facility] [place] 06/14/2023 10:30 AM 06/14/2023 10:45 AM Confirmed Pharmacy Information: Other: [facility] You may receive a survey from Nicolas Marvin asking you to rate your care experience. Your feedback is important and will help us understand what we do well and how we can improve the quality of care we provide to you, your loved ones and our community. It?s an honor to serve you. Thank you for choosing [facility] HERE ARE THE MEDICATION CHANGES THAT OCCURRED [...] near your rectum, especially while sitting. ? [place]-colored urine due to small amounts of blood [...] urinating or catheter-related problems Medication Leaflets: [place] [facility] Patient Education - Texton 1 08-07-2022 Patient Education - Text Transperineal?Biopsy of the Prostate Discharge Instructions After the procedure, it is common to have: ? Pain and discomfort near your rectum, especially while sitting. ? [place]-colored urine due to small amounts of blood [...] have difficulty urinating or catheter-related problems Normal [facility] Outside Recordson 05-15-2023 Outside Records [id number] 5#1.00TIFF [facility] Ambulatory Visit Summaryon 1 07-12-2022 Ambulatory Visit Summary MICHAEL KILLIAN :1955 Visit Date:05/10/2023 Ambulatory Visit Instructions Your Diagnosis Elevated PSA BPH with urinary obstruction Tests Performed Urnls Dip Stick Auto w/o Microscopy POC [address] Your Care Team Attending Physician - Meghan [...] Appointments Monday 2:30 PM EST With: Where: [facility] Surgical Services Monday 10:30 AM EST With: Meghan Brito MD Where: [facility] Patient Educationon 05-10-20 Patient Education [...] Where to find more information ? The [place] [employer]: www.cancer.org ? [place] [employer] Association: www.auanet.org Contact a health care [...] adds flu (more content not included)... Normal [facility] [place] 05-10-2023 Screens [id number] 1#1.00TIFF Normal [facility] Screens [id number] 3#1.00TIFF [facility] Urology Office/Clinic Noteon 05-10-2023 Urology [...] the office notified. 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 2. BPH [...] -Timed voids (more content not included)... Normal [facility] Comment on above: Result Comment: Elec tronically Signed By: Meghan Brito MD\.br\Date and Time Signed: 05/10/23 11:31 EST\.br\Electronically Co-Signed By: Nevaeh Padilla\.br\Date and Time Co-Signed: 05/10/23 11:22 EST Lab Reportson 04-18-2023 Lab Reports [id number] #1.00TIFF [facility] Physician Orderon 04-13-2023 Physician Order [id number] #1.00TIFF [facility] Formson 04-12-2023 Forms [id number] #1.00TIFF [facility] Lab Reportson 04-12-2023 Lab Reports [id number] #1.00TIFF [facility] Patient Educationon 04-11-20 Patient Education [...] Where to find more information ? The [place] [employer]: www.cancer.org ? [place] [employer] Association: www.auanet.org Contact a health care [...] adds flu (more content not included)... Normal [facility] Urology Office/Clinic Noteon 04-11-2023 Urology Office/Clinic [...] given order for PSA. Will complete at [facility]. Return in about 4 weeks to [...] with plan. Follow-up With When Contact Information LONNIE ELLIOTT, THERESA [place], URL [address] [place] [address] [phone] Additional Instructions: f/u with MD in 1 month w/ PSA and [facility] Patient Education Prostate Cancer Screening Documentation recorded by the scribfuad Hammonds accurately reflects the services(s) I performed [...] SARS-CoV-2 (COVID-19) Ad26 vaccine 09/02/2020 Recorded Normal [facility] Comment on above: Result Comment: Elec tronically Signed By: LONNIE ELLIOTT, THERESA [place]\.br\Date and Time Signed: 04/11/23 13:13 EDT\.br\Electronically Co-Signed By: Carissa Hammonds\.br\Date and Time Co-Signed: 04/11/23 12:33 EDT RAD - MRI Reporton RAD - MRI Report [id number] #1.00TIFF Normal [facility] ISTAT XRay CREon 04-03-2023 ISTAT GFR 55.088 Normal [facility] Comment on above: Result Comment: PERF ORMED BY: [place] [address] PATHOLOGIST OXYGEN THERAPY TECHNICIAN SARAH BETH SILVEIRA M.D. Performed By: #### I SCRE #### [address] MR prostate wo/w conon 04-03 MR prostate wo/w con [facility] Main [place] [address] [place] [address] MRI Report Signed Patient: Michael Killian MR#: [id number] 050 : 1955 Acct:[id number] Age/Sex: 68 / M ADM Date: 04/03/23 Loc: MR Room: Type: [facility] Attending Dr: Theresa Fleming PA-C Copies to: [...] Cleary Jr., D.O.04/03/2023 1:40 PM Dictation Location: [place] [address] Transcribed By: [facility] 04/03/23 1340 Dictated By: Leandro Cleary Jr, DO 04/03/23 1334 Signed By: 04/03/23 1340 Normal [facility] Whole blood creatinine measu rementOrdered By: Theresa Fleming on 04-03-2023 Creatinine [Mass/Vol] 1.4 mg/dL High 0.6-1.3 [facility] Comment on above: ER/ESD physician is notified/shown all ISTAT results.Critical values may be confirmed by laboratory testing ifdeemed necessary by ER attending doctor. Result Comment: ER/E SD physician is notified/shown all ISTAT results. Critical values may be confirmed by laboratory testing if deemed necessary by ER attending doctor. Performed By: #### I SCRE #### [facility] [address] PROF 14(COMP METB)on 023 Albumin [Mass/Vol] 3.9 g/dL Normal 3.4-5.0 [facility] Comment on above: Performed By: #### B MP #### [facility] [address] [place] [address] [address] Duy James Albumin/Globulin [Mass ratio] 1.1 {ratio} Normal [facility] Comment on above: Performed By: #### B MP #### [facility] [address] [place] [address] [address] Duy James ALP [Catalytic activity/Vol] 70 U/L Normal 46-116 [facility] Comment on above: Performed By: #### B MP #### [facility] [address] [place] [address] [address] Duy James ALT [Catalytic activity/Vol] 26 U/L Normal 16-63 [facility] Comment on above: Performed By: #### B MP #### [facility] [address] [place] [address] [address] Duy James Anion gap [Moles/Vol] 13.1 mmol/L Normal [facility] Comment on above: Performed By: #### B MP #### [facility] [address] [place] [address] Dr. Duy James AST [Catalytic activity/Vol] 17 U/L Normal 15-37 [facility] Comment on above: Performed By: #### B MP #### [facility] [address] [place] [address] [address] Duy James Bilirubin [Mass/Vol] 0.6 mg/dL Normal 0.2-1.0 [facility] Comment on above: Performed By: #### B MP #### [facility] [address] [place] [address] [address] Duy James Calcium [Mass/Vol] 9.0 mg/dL Normal 8.5-10.1 [facility] Comment on above: Performed By: #### B MP #### [facility] [address] [place] [address] [address] Duy James Chloride [Moles/Vol] 106 mmol/L Normal 98-107 [facility] Comment on above: Performed By: #### B MP #### [facility] [address] [place] [address] [address] Duy James CO2 [Moles/Vol] 28.5 mmol/L Normal 21.0-32.0 [facility] [place] Comment on above: Performed By: #### B MP #### [facility] [address] [place] [address] [address] Duy James Creatinine [Mass/Vol] 1.22 mg/dL Normal 0.70-1.30 [facility] Comment on above: Performed By: #### B MP #### [facility] [address] [place] [address] [address] Duy James EGFR-AF CITIZEN [place] >60 Normal >=60 [facility] [place] Comment on above: Performed By: #### B MP #### [facility] [address] [place] [address] [address] Duy James EGFR-NON AF CITIZEN OF [place] 59 mL/min/1.73m2 Critically low >=60 [facility] Comment on above: Performed By: #### B MP #### [facility] [address] [place] [address] [address] Duy James Globulin (S) [Mass/Vol] 3.7 g/dL Normal [facility] Comment on above: Performed By: #### B MP #### [facility] [address] [place] [address] [address] Duy James Glucose [Mass/Vol] 113 mg/dL Critically high 74-106 [facility] Comment on above: Performed By: #### B MP #### [facility] [address] [place] [address] [address] Duy James Potassium [Moles/Vol] 4.6 mmol/L Normal 3.5-5.1 [facility] Comment on above: Performed By: #### B MP #### [facility] [address] [place] [address] [address] Duy James Protein [Mass/Vol] 7.6 g/dL Normal 6.4-8.2 [facility] Comment on above: Performed By: #### B MP #### [facility] [address] [place] [address] [address] Duy James Sodium [Moles/Vol] 143 mmol/L Normal 136-145 [facility] Comment on above: Performed By: #### B MP #### [facility] [address] [place], [place] [address] Dr. Duy James Urea nitrogen [Mass/Vol] 12.0 mg/dL Normal 7.0-18.0 [facility] Comment on above: Performed By: #### B MP #### [facility] [address] [place], [place] [address] Dr. Duy James Urea nitrogen/Creatinine [Mass ratio] 9.8 mg/mg Normal [facility] Comment on above: Performed By: #### B MP #### [facility] [address] [place], [place] [address] Dr. Duy James XR CHEST 2 Von [...] by: LIDYA URBANO Date: 2022-11-07 09:16 Normal [facility] CULTURE BLOODon 08-30-2022 Microscopic examination of [...] F Trimethoprim/Sulfame thoxazole <=10 S F Normal [facility] Comment on above: Performed By: #### B MP #### [facility] [address] [place], [place] [address] Dr. Duy James HEPATITIS PANEL, ACUTEon HBsAg Screen Negative Normal Negative [facility] Comment on above: Performed By: #### C BC #### [facility] [address] [place] [address] [address] Duy James HCV AB Non-Reactive Normal Non Reactive [facility] Comment on above: Performed By: #### C BC #### [facility] [address] [place] [address] Dr. Duy James Hep A Ab, IgM Negative Normal Negative [facility] Comment on above: Performed By: #### C BC #### [facility] [address] [place] [address] Dr. Duy James Hep B Core Ab, IgM Negative Normal Negative [facility] Comment on above: Performed By: #### C BC #### [facility] [address] [place] [address] Dr. Duy James Interpretation: Comment Normal [facility] Comment on above: Result Comment: Not infected with HCV unless early or acute infection is suspected (which may be delayed in an immunocompromised individual), or other evidence exists to indicate HCV infection. Performed By: #### C BC #### [facility] [address] [place] [address] Dr. Duy James CBC W MANUAL DIFFon 08-29-19 23 ATYPICAL LYMPH # Normal [facility] [place] Comment on above: Performed By: #### B MP #### [facility] [address] [place] [address] Dr. Duy James ATYPICAL LYMPH % Normal [facility] Comment on above: Performed By: #### B MP #### [facility] [address] [place] [address] Dr. Duy James BAND # 0.0 103/ul Normal 0.0-0.3 [facility] Comment on above: Performed By: #### B MP #### [facility] [address] [place] [address] Dr. Duy James BAND % 0 % Normal 0-5 [facility] Comment on above: Performed By: #### B MP #### [facility] [address] [place] [address] Dr. Duy James BASOM # 0.00 103/ul Normal 0.00-0.10 [facility] Comment on above: Performed By: #### B MP #### [facility] [address] [place] [address] Dr. uDy James BASOM % 0.0 % Critically low 0.2-2.0 [facility] Comment on above: Performed By: #### B MP #### [facility] [address] [place] [address] Dr. Duy James BLAST # Normal [facility] Comment on above: Performed By: #### B MP #### [facility] [address] [place] [address] Dr. Duy James BLAST % Normal [facility] Comment on above: Performed By: #### B MP #### [facility] [address] [place] [address] Dr. Duy James CORRECTED WBC Normal 4.0-11.0 [facility] Comment on above: Performed By: #### B MP #### [facility] [address] [place] [address] Dr. Duy James EOS # 0.00 103/ul Normal 0.00-0.70 [facility] Comment on above: Performed By: #### B MP #### [facility] [address] [place] [address] Dr. Duy James EOS% 0.0 % Critically low 0.9-7.0 [facility] Comment on above: Performed By: #### B MP #### [facility] [address] [place] [address] Dr. Duy James HCT 36.8 % Critically low 42.0-54.0 [facility] Comment on above: Performed By: #### B MP #### [facility] [address] [place] [address] Dr. Duy James HGB 12.0 g/dl Critically low 14.0-18.0 [facility] Comment on above: Performed By: #### B MP #### [facility] [address] [place] [address] Dr. Duy James LYMPHM # 0.47 103/ul Critically low 1.20-3.80 [facility] Comment on above: Performed By: #### B MP #### [facility] [address] [place] [address] Dr. Duy James LYMPHM% 6.0 % Critically low 20.5-60.0 [facility] Comment on above: Performed By: #### B MP #### [facility] [address] [place] [address] Dr. Duy James MCH 28.4 pg Normal 25.9-34.0 [facility] Comment on above: Performed By: #### B MP #### [facility] [address] [place] [address] Dr. Duy James MCHC 32.6 g/dl Normal 29.9-35.2 [facility] Comment on above: Performed By: #### B MP #### [facility] [address] [place] [address] Dr. Duy James MCV 87.0 fL Normal 80.0-94.0 [facility] Comment on above: Performed By: #### B MP #### [facility] [address] [place] [address] Dr. Duy James METAMYELOCYTE # Normal [facility] Comment on above: Performed By: #### B MP #### [facility] [address] [place] [address] Dr. Duy James METAMYELOCYTE % Normal [facility] Comment on above: Performed By: #### B MP #### [facility] [address] [place] [address] Dr. Duy James MONOM# 0.40 103/ul Normal 0.30-0.80 [facility] Comment on above: Performed By: #### B MP #### [facility] [address] [place] [address] Dr. Duy James MONOM% 5.0 % Normal 1.7-12.0 [facility] Comment on above: Performed By: #### B MP #### [facility] [address] [address] [address] Duy James MPV 10.2 fL Normal 9.5-13.5 [facility] Comment on above: Performed By: #### B MP #### [facility] [address] [place] [address] Dr. Duy James MYELOCYTE # Normal [facility] Comment on above: Performed By: #### B MP #### [facility] [address] [place] [address] Dr. Duy James MYELOCYTE % Normal [facility] Comment on above: Performed By: #### B MP #### [facility] [address] [place] [address] Dr. Duy James NRBC Normal [facility] Comment on above: Performed By: #### B MP #### [facility] [address] [place] [address] Dr. Duy James PLT 205 103/ul Normal 150-450 [facility] Comment on above: Performed By: #### B MP #### [facility] [address] [place] [address] Dr. Duy James RBC 4.23 106/ul Critically low 4.70-6.10 [facility] Comment on above: Performed By: #### B MP #### [facility] [address] [place] [address] Dr. Duy James RDW 13.3 % Normal 11.0-15.0 [facility] Comment on above: Performed By: #### B MP #### [facility] [address] [place] [address] Dr. Duy James SEG # 7.03 103/ul Critically high 1.40-6.50 [facility] [place] Comment on above: Performed By: #### B MP #### [facility] [address] [place] [address] Dr. Duy James SEG % 89.0 % Critically high 43.0-75.0 [facility] Comment on above: Performed By: #### B MP #### [facility] [address] [place] [address] Dr. Duy James WBC 7.9 103/ul Normal 4.0-11.0 [facility] Comment on above: Performed By: #### B MP #### [facility] [address] [place] [address] Dr. Duy James PROF 14(COMP METB)on 023 Albumin [Mass/Vol] 3.4 g/dL Normal 3.4-5.0 [facility] Comment on above: Performed By: #### C BC #### [facility] [address] [place] [address] Dr. Duy James Albumin/Globulin [Mass ratio] 1.0 {ratio} Normal [facility] Comment on above: Performed By: #### C BC #### [facility] [address] [place] [address] Dr. Duy James ALP [Catalytic activity/Vol] 73 U/L Normal 46-116 [facility] Comment on above: Performed By: #### C BC #### [facility] [address] [place] [address] Dr. Duy James ALT [Catalytic activity/Vol] 66 U/L Critically high 16-63 [facility] Comment on above: Performed By: #### C BC #### [facility] [address] [place] [address] Dr. Duy James Anion gap [Moles/Vol] 10.6 mmol/L Normal [facility] Comment on above: Performed By: #### C BC #### [facility] [address] [place] [address] Dr. Duy James AST [Catalytic activity/Vol] 26 U/L Normal 15-37 [facility] Comment on above: Performed By: #### C BC #### [facility] [address] [place] [address] Dr. Duy James Bilirubin [Mass/Vol] 0.3 mg/dL Normal 0.2-1.0 [facility] Comment on above: Performed By: #### C BC #### [facility] [address] [place] [address] Dr. Duy James Calcium [Mass/Vol] 8.9 mg/dL Normal 8.5-10.1 [facility] Comment on above: Performed By: #### C BC #### [facility] [address] [place] [address] Dr. Duy James Chloride [Moles/Vol] 106 mmol/L Normal 98-107 [facility] Comment on above: Performed By: #### C BC #### [facility] [address] [place] [address] Dr. Duy James CO2 [Moles/Vol] 29.3 mmol/L Normal 21.0-32.0 [facility] [place] Comment on above: Performed By: #### C BC #### [facility] [address] [place] [address] Dr. Duy James Creatinine [Mass/Vol] 1.12 mg/dL Normal 0.70-1.30 [facility] Comment on above: Performed By: #### C BC #### [facility] [address] [place] [address] Dr. Duy James EGFR-AF CITIZ[place] >60 Normal >=60 [facility] [place] Comment on above: Performed By: #### C BC #### [facility] [address] [place] [address] Dr. Duy James EGFR-NON AF CITIZEN OF [place] >60 Normal >=60 [facility] Comment on above: Performed By: #### C BC #### [facility] [address] [place] [address] Dr. Duy James Globulin (S) [Mass/Vol] 3.3 g/dL Normal [facility] Comment on above: Performed By: #### C BC #### [facility] [address] [place] [address] Dr. Duy James Glucose [Mass/Vol] 157 mg/dL Critically high 74-106 [facility] Comment on above: Performed By: #### C BC #### [facility] [address] [place] [address] Dr. Duy James Potassium [Moles/Vol] 4.9 mmol/L Normal 3.5-5.1 [facility] Comment on above: Performed By: #### C BC #### [facility] [address] [address] [address] Duy James Protein [Mass/Vol] 6.7 g/dL Normal 6.4-8.2 [facility] Comment on above: Performed By: #### C BC #### [facility] [address] [address] [address] Duy James Sodium [Moles/Vol] 141 mmol/L Normal 136-145 [facility] Comment on above: Performed By: #### C BC #### [facility] [address] [address] [address] Duy James Urea nitrogen [Mass/Vol] 22.0 mg/dL Critically high 7.0-18.0 [facility] Comment on above: Performed By: #### C BC #### [facility] [address] [place] [address] Dr. Duy James Urea nitrogen/Creatinine [Mass ratio] 19.6 mg/mg Normal [facility] Comment on above: Performed By: #### C BC #### [facility] [address] [place] [address] Dr. Duy James MAGNESIUMon 08-27-2022 Magnesium [Mass/Vol] 2.0 mg/dL Normal 1.8-2.4 [facility] Comment on above: Performed By: #### C MP, MG #### [facility] [address] [place] [address] Dr. Duy James PROF 14(COMP METB)on 023 Albumin [Mass/Vol] 3.6 g/dL Normal 3.4-5.0 [facility] Comment on above: Performed By: #### C MP, MG #### [facility] [address] [place] [address] Dr. Duy James Albumin/Globulin [Mass ratio] 0.9 {ratio} Normal [facility] Comment on above: Performed By: #### C MP, MG #### [facility] [address] [place] [address] Dr. Duy James ALP [Catalytic activity/Vol] 79 U/L Normal 46-116 [facility] Comment on above: Performed By: #### C MP, MG #### [facility] [address] [address] [address] Duy James ALT [Catalytic activity/Vol] 86 U/L Critically high 16-63 [facility] Comment on above: Performed By: #### C MP, MG #### [facility] [address] [address] [address] Duy James Anion gap [Moles/Vol] 14.3 mmol/L Normal [facility] Comment on above: Performed By: #### C MP, MG #### [facility] [address] [address] [address] Duy James AST [Catalytic activity/Vol] 38 U/L Critically high 15-37 [facility] Comment on above: Performed By: #### C MP, MG #### [facility] [address] [address] [address] Duy James Bilirubin [Mass/Vol] 0.4 mg/dL Normal 0.2-1.0 [facility] Comment on above: Performed By: #### C MP, MG #### [facility] [address] [address] [address] Duy James Calcium [Mass/Vol] 9.3 mg/dL Normal 8.5-10.1 [facility] Comment on above: Performed By: #### C MP, MG #### [facility] [address] [address] [address] Duy James Chloride [Moles/Vol] 106 mmol/L Normal 98-107 [facility] Comment on above: Performed By: #### C MP, MG #### [facility] [address] [address] [address] Duy James CO2 [Moles/Vol] 27.1 mmol/L Normal 21.0-32.0 [facility] [place] Comment on above: Performed By: #### C MP, MG #### [facility] [address] [address] [address] Duy James Creatinine [Mass/Vol] 1.17 mg/dL Normal 0.70-1.30 [facility] Comment on above: Performed By: #### C MP, MG #### [facility] [address] [address] [address] Duy James EGFR-AF CITIZ[place] >60 Normal >=60 [facility] [place] Comment on above: Performed By: #### C MP, MG #### [facility] [address] [address] [address] Duy James EGFR-NON AF CITIZEN [place] >60 Normal >=60 [facility] Comment on above: Performed By: #### C MP, MG #### [facility] [address] [address] [address] Duy James Globulin (S) [Mass/Vol] 3.8 g/dL Normal [facility] Comment on above: Performed By: #### C MP, MG #### [facility] [address] [place] [address] Dr. Duy James Glucose [Mass/Vol] 163 mg/dL Critically high 74-106 [facility] Comment on above: Performed By: #### C MP, MG #### [facility] [address] [address] [address] Duy James Potassium [Moles/Vol] 5.4 mmol/L Critically high 3.5-5.1 [facility] Comment on above: Performed By: #### C MP, MG #### [facility] [address] [address] [address] Duy James Protein [Mass/Vol] 7.4 g/dL Normal 6.4-8.2 [facility] Comment on above: Performed By: #### C MP, MG #### [facility] [address] [address] [address] Duy James Sodium [Moles/Vol] 142 mmol/L Normal 136-145 [facility] Comment on above: Performed By: #### C MP, MG #### [facility] [address] [address] [address] Duy James Urea nitrogen [Mass/Vol] 16.0 mg/dL Normal 7.0-18.0 [facility] Comment on above: Performed By: #### C MP, MG #### [facility] [address] [place] [address] Dr. Duy James Urea nitrogen/Creatinine [Mass ratio] 13.7 mg/mg Normal [facility] Comment on above: Performed By: #### C MP, MG #### [facility] [address] [place] [address] Dr. Duy James PROF CHEM 8 (BAS METB)on Anion gap [Moles/Vol] 15.1 mmol/L Normal [facility] Comment on above: Performed By: #### B MP #### [facility] [address] [place] [address] Dr. Duy James Calcium [Mass/Vol] 9.0 mg/dL Normal 8.5-10.1 [facility] Comment on above: Performed By: #### B MP #### [facility] [address] [place] [address] Dr. Duy James Chloride [Moles/Vol] 105 mmol/L Normal 98-107 [facility] Comment on above: Performed By: #### B MP #### [facility] [address] [place] [address] Dr. Duy James CO2 [Moles/Vol] 27.0 mmol/L Normal 21.0-32.0 [facility] [place] Comment on above: Performed By: #### B MP #### [facility] [address] [place] [address] Dr. Duy James Creatinine [Mass/Vol] 1.20 mg/dL Normal 0.70-1.30 [facility] Comment on above: Performed By: #### B MP #### [facility] [address] [place] [address] Dr. Duy James EGFR-AF CITIZ[place] >60 Normal >=60 [facility] [place] Comment on above: Performed By: #### B MP #### [facility] [address] [place] [address] Dr. Duy James EGFR-NON AF CITIZEN [place] >60 Normal >=60 [facility] Comment on above: Performed By: #### B MP #### [facility] [address] [address] [address] Duy James Glucose [Mass/Vol] 155 mg/dL Critically high 74-106 [facility] Comment on above: Performed By: #### B MP #### [facility] [address] [address] [address] Duy James Potassium [Moles/Vol] 5.1 mmol/L Normal 3.5-5.1 [facility] Comment on above: Performed By: #### B MP #### [facility] [address] [address] [address] Duy James Sodium [Moles/Vol] 142 mmol/L Normal 136-145 [facility] Comment on above: Performed By: #### B MP #### [facility] [address] [address] [address] Duy James Urea nitrogen [Mass/Vol] 19.0 mg/dL Critically high 7.0-18.0 [facility] Comment on above: Performed By: #### B MP #### [facility] [address] [address] [address] Duy James Urea nitrogen/Creatinine [Mass ratio] 15.8 mg/mg Normal [facility] Comment on above: Performed By: #### B MP #### [facility] [address] [address] [address] Duy James XR CHEST 2 Von [...] GRACIE DEAN Date: 2022-08-27 08:27 Normal [facility] BLOOD CULTURE ID PANELon A. baumannii Not detected Normal NOT DETECTED [facility] Comment on above: Performed By: #### C BC #### [facility] [address] [place] [address] Dr. Duy James Bacteriodes fragilis Not detected Normal NOT DETECTED [facility] Comment on above: Performed By: #### C BC #### [facility] [address] [address] [address] Duy James BCID CONTROLS PASSED Normal [facility] Comment on above: Performed By: #### C BC #### [facility] [address] [place] [address] Dr. Duy PEREIRADBTHD BLOOD CULTURE BOTTLE INFORMATION [facility] Comment on above: Performed By: #### C BC #### [facility] [address] [place] [address] Dr. Duy PEREIRADHD1 ANTIMICROBIAL RESISTANCE GENES [facility] Comment on above: Performed By: #### C BC #### [facility] [address] [place] [address] Dr. Duy PEREIRADHD2 SEE BELOW [facility] Comment on above: Result Comment: Note : Antimicrobial resitance can occur via multiple mechanisms. A Not Detected result for the [employer] antomicrobial resistance gene assays does not indicate antimicrobial susceptibility. Subculturing is required for species identification and susceptibility testing of isolates. Performed By: #### C BC #### [facility] [address] [place] [address] Dr. Duy James BCIDHD3 Positive Normal [facility] Comment on above: Performed By: #### C BC #### [facility] [address] [place] [address] Dr. Duy PEREIRADHD4 Negative [facility] Comment on above: Performed By: #### C BC #### [facility] [address] [place] [address] Dr. Duy PEREIRADHD5 YEAST [facility] Comment on above: Performed By: #### C BC #### [facility] [address] [place] [address] Dr. Duy James Bottle Set: Set 1 [facility] Comment on above: Performed By: #### C BC #### [facility] [address] [place] [address] Dr. Duy James Bottle: Anaerobic Normal [facility] Comment on above: Performed By: #### C BC #### [facility] [address] [place] [address] Dr. Duy James C. neoformans/gattii Not detected Normal NOT DETECTED [facility] Comment on above: Performed By: #### C BC #### [facility] [address] [place] [address] Dr. Duy James Gala albicans Not detected Normal NOT DETECTED [facility] Comment on above: Performed By: #### C BC #### [facility] [address] [place] [address] Dr. Duy James Gala auris Not detected Normal NOT DETECTED [facility] Comment on above: Performed By: #### C BC #### [facility] [address] [place] [address] Dr. Duy James Gala glabrata Not detected Normal NOT DETECTED [facility] Comment on above: Performed By: #### C BC #### [facility] [address] [place] [address] Dr. Duy James Gala Krusei Not detected Normal NOT DETECTED [facility] Comment on above: Performed By: #### C BC #### [facility] [address] [place] [address] Dr. Duy James Gala Parapsilosis Not detected Normal NOT DETECTED [facility] Comment on above: Performed By: #### C BC #### [facility] [address] [place] [address] Dr. Duy James Gala Tropicalis Not detected Normal NOT DETECTED [facility] Comment on above: Performed By: #### C BC #### [facility] [address] [place] [address] Dr. Duy James CTX-M Resistant Gene Not Applicable Normal NOT DETECTE D [facility] Comment on above: Performed By: #### C BC #### [facility] [address] [place] [address] Dr. Duy James E. Cloacae complex Not detected Normal NOT DETECTED [facility] Comment on above: Performed By: #### C BC #### [facility] [address] [place] [address] Dr. Duy James E. faecalis Not detected Normal NOT DETECTED [facility] Comment on above: Performed By: #### C BC #### [facility] [address] [place] [address] Dr. Duy James E. faecium Not detected Normal NOT DETECTED [facility] Comment on above: Performed By: #### C BC #### [facility] [address] [place] [address] Dr. Duy James Enterobacteriaceae Not detected Normal NOT DETECTED [facility] Comment on above: Performed By: #### C BC #### [facility] [address] [place] [address] Dr. Duy James Escherichia coli Not detected Normal NOT DETECTED [facility] Comment on above: Performed By: #### C BC #### [facility] [address] [place] [address] Dr. Duy James H. influenzae Not detected Normal NOT DETECTED [facility] Comment on above: Performed By: #### C BC #### [facility] [address] [place] [address] Dr. Duy James IMP Resistant Gene Not Applicable Normal NOT DETECTED [facility] Comment on above: Performed By: #### C BC #### [facility] [address] [place] [address] Dr. Duy James K. oxytoca Not detected Normal NOT DETECTED [facility] Comment on above: Performed By: #### C BC #### [facility] [address] [place] [address] Dr. Duy James K. pneumoniae Not detected Normal NOT DETECTED [facility] Comment on above: Performed By: #### C BC #### [facility] [address] [place] [address] Dr. Duy James Klebsiella aerogenes Not detected Normal NOT DETECTED [facility] Comment on above: Performed By: #### C BC #### [facility] [address] [place] [address] Dr. Duy James KPC Resistant Gene Not Applicable Normal NOT DETECTED [facility] Comment on above: Performed By: #### C BC #### [facility] [address] [place] [address] Dr. Duy James List. monocytogenes Not detected Normal NOT DETECTED [facility] Comment on above: Performed By: #### C BC #### [facility] [address] [place] [address] Dr. Duy James Mcr-1 Resistant Gene Not Applicable Normal NOT DETECTE D [facility] Comment on above: Performed By: #### C BC #### [facility] [address] [place] [address] Dr. Duy James mecA/C Not Applicable Normal NOT DETECTED [facility] Comment on above: Performed By: #### C BC #### [facility] [address] [place] [address] Dr. Duy James mecA/C MREJ Not Applicable Normal NOT DETECTED [facility] Comment on above: Performed By: #### C BC #### [facility] [address] [place] [address] Dr. Duy James N. meningitidis Not detected Normal NOT DETECTED [facility] Comment on above: Performed By: #### C BC #### [facility] [address] [place] [address] Dr. Duy James NDM Resistant Gene Not Applicable Normal NOT DETECTED [facility] Comment on above: Performed By: #### C BC #### [facility] [address] [place] [address] Dr. Duy James Oxa-48-like Not Applicable Normal NOT DETECTED [facility] Comment on above: Performed By: #### C BC #### [facility] [address] [place] [address] Dr. Duy James Proteus Not detected Normal NOT DETECTED [facility] Comment on above: Performed By: #### C BC #### [facility] [address] [place] [address] Dr. Duy James Pseud. aeruginosa Not detected Normal NOT DETECTED [facility] Comment on above: Performed By: #### C BC #### [facility] [address] [place] [address] Dr. Duy James S. maltophilia Not detected Normal NOT DETECTED [facility] Comment on above: Performed By: #### C BC #### [facility] [address] [address] [address] Duy James Salmonella Not detected Normal NOT DETECTED [facility] Comment on above: Performed By: #### C BC #### [facility] [address] [address] [address] Duy James Seratia marcescens Not detected Normal NOT DETECTED [facility] Comment on above: Performed By: #### C BC #### [facility] [address] [place] [address] Dr. Duy James Site: L a/c Normal [facility] Comment on above: Performed By: #### C BC #### [facility] [address] [place] [address] Dr. Duy James Staph. aureus Not detected Normal NOT DETECTED [facility] Comment on above: Performed By: #### C BC #### [facility] [address] [place] [address] Dr. Duy James Staph. epidermidis Not detected Normal NOT DETECTED [facility] Comment on above: Performed By: #### C BC #### [facility] [address] [place] [address] Dr. Duy James Staph. lugdunensis Not detected Normal NOT DETECTED [facility] Comment on above: Performed By: #### C BC #### [facility] [address] [place] [address] Dr. Duy James Staphylococcus Detected Critically abnormal NOT DETECTED [facility] Comment on above: Performed By: #### C BC #### [facility] [address] [place] [address] Dr. Duy James Strep. agalactiae Not detected Normal NOT DETECTED [facility] Comment on above: Performed By: #### C BC #### [facility] [address] [place] [address] Dr. Duy James Strep. pneumoniae Not detected Normal NOT DETECTED [facility] Comment on above: Performed By: #### C BC #### [facility] [address] [place] [address] Dr. Duy James Strep. pyogenes Not detected Normal NOT DETECTED [facility] Comment on above: Performed By: #### C BC #### [facility] [address] [place] [address] Dr. Duy James Streptococcus Not detected Normal NOT DETECTED [facility] Comment on above: Performed By: #### C BC #### [facility] [address] [place] [address] Dr. Duy James Cullen/B Resist. Gene Not Applicable Normal NOT DETECTED [facility] Comment on above: Performed By: #### C BC #### [facility] [address] [place] [address] Dr. Duy James VIM Resistant Gene Not Applicable Normal NOT DETECTED [facility] Comment on above: Performed By: #### C BC #### [facility] [address] [place] [address] Dr. Duy [facility] 02 MODE NASAL CANNULA Normal [facility] Comment on above: Performed By: #### C BC #### [facility] [address] [place] [address] Dr. Duy James ALLENS TEST Positive [facility] Comment on above: Performed By: #### C BC #### [facility] [address] [place] [address] Dr. Duy James Base excess Calc (Bld) [Moles/Vol] -1.3000 mmol/L Normal -2.0-2.0 [facility] Comment on above: Performed By: #### C BC #### [facility] [address] [place] [address] Dr. Duy James BIPAP PRESSURE Normal [facility] Comment on above: Performed By: #### C BC #### [facility] [address] [place] [address] Dr. Duy James CPAP [facility] Comment on above: Performed By: #### C BC #### [facility] [address] [address] [address] Duy James FIO2 [facility] Comment on above: Performed By: #### C BC #### [facility] [address] [place] [address] Dr. Duy James HCO3 (Bld) [Moles/Vol] 24.5 mmol/L Normal 22.0-26.0 [facility] Comment on above: Performed By: #### C BC #### [facility] [address] [address] [address] Duy James LPM 2 [facility] Comment on above: Performed By: #### C BC #### [facility] [address] [place] [address] Dr. Duy James MINUTE VOLUME Normal [facility] Comment on above: Performed By: #### C BC #### [facility] [address] [place] [address] Dr. Duy James Oxygen (Bld) [Partial pressure] 64.3 mm[Hg] Critically low 80.0-100.0 [facility] Comment on above: Performed By: #### C BC #### [facility] [address] [place] [address] Dr. Duy James Oxygen saturation in Blood 92.0 % Critically low 95.0-100.0 [facility] Comment on above: Performed By: #### C BC #### [facility] [address] [place] [address] Dr. Duy James PCO2 45.3 mmHg Critically high 35.0-45.0 [facility] Comment on above: Performed By: #### C BC #### [facility] [address] [place] [address] Dr. Duy James PEEP [facility] Comment on above: Performed By: #### C BC #### [facility] [address] [place] [address] Dr. Duy James pH (Bld) 7.341 [pH] Critically low 7.350-7.450 [facility] Comment on above: Performed By: #### C BC #### [facility] [address] [address] [address] Duy James [facility] Comment on above: Performed By: #### C BC #### [facility] [address] [place] [address] Dr. Duy James [facility] Comment on above: Performed By: #### C BC #### [facility] [address] [address] [address] Duy James PUNCTURE SITE LR [facility] Comment on above: Performed By: #### C BC #### [facility] [address] [place] [address] Dr. Duy James [facility] Comment on above: Performed By: #### C BC #### [facility] [address] [place] [address] Dr. Duy James VENT [facility] Comment on above: Performed By: #### C BC #### [facility] [address] [place] [address] Dr. Duy James [facility] Comment on above: Performed By: #### C BC #### [facility] [address] [place] [address] Dr. Duy James BNPon 08-26-2022 Natriuretic peptide B (Bld) [Mass/Vol] 2516.0 pg/mL Critically high <=900.0 [facility] Comment on above: Performed By: #### B MP #### [facility] [address] [place] [address] Dr. Duy James CBC AUTO DIFFon 08-26-2022 BASO # 0.1 103/ul Normal 0.0-0.1 [facility] Comment on above: Performed By: #### C BC #### [facility] [address] [place] [address] Dr. Duy James Basophils/100 WBC (Bld) 1.2 % Normal 0.2-2.0 [facility] Comment on above: Performed By: #### C BC #### [facility] [address] [place] [address] Dr. Duy James EO # 0.4 103/ul Normal 0.0-0.7 [facility] Comment on above: Performed By: #### C BC #### [facility] [address] [place] [address] Dr. Duy James Eosinophils/100 WBC (Bld) 4.6 % Normal 0.9-7.0 [facility] Comment on above: Performed By: #### C BC #### [facility] [address] [place] [address] Dr. Duy James Erythrocyte distribution width (RBC) [Ratio] 13.2 % Normal 11.0-15.0 [facility] Comment on above: Performed By: #### C BC #### [facility] [address] [place] [address] Dr. Duy James Hematocrit (Bld) [Volume fraction] 41.1 % Critically low 42.0-54.0 [facility] Comment on above: Performed By: #### C BC #### [facility] [address] [place] [address] Dr. Duy James Hemoglobin (Bld) [Mass/Vol] 13.8 g/dL Critically low 14.0-18.0 [facility] Comment on above: Performed By: #### C BC #### [facility] [address] [place] [address] Dr. Duy James IG # 0.03 10e3/ul Normal 0.00-0.03 [facility] Comment on above: Performed By: #### C BC #### [facility] [address] [place] [address] Dr. Duy James IG % 0.4 % Normal 0.0-0.5 [facility] Comment on above: Performed By: #### C BC #### [facility] [address] [place] [address] Dr. Duy James LYMPH # 2.9 103/ul Normal 1.2-3.8 [facility] Comment on above: Performed By: #### C BC #### [facility] [address] [place] [address] Dr. Duy James Lymphocytes/100 WBC (Bld) 35.3 % Normal 20.5-60.0 [facility] Comment on above: Performed By: #### C BC #### [facility] [address] [place] [address] Dr. Duy James MANUAL DIFF REQ NO Normal [facility] Comment on above: Performed By: #### C BC #### [facility] [address] [place] [address] Dr. Duy James MCH (RBC) [Entitic mass] 28.9 pg Normal 25.9-34.0 [facility] Comment on above: Performed By: #### C BC #### [facility] [address] [place] [address] Dr. Duy James MCHC (RBC) [Mass/Vol] 33.6 g/dL Normal 29.9-35.2 [facility] Comment on above: Performed By: #### C BC #### [facility] [address] [place] [address] Dr. Duy James MCV (RBC) [Entitic vol] 86.2 fL Normal 80.0-94.0 [facility] Comment on above: Performed By: #### C BC #### [facility] [address] [place] [address] Dr. Duy James MONO # 0.6 103/ul Normal 0.3-0.8 [facility] Comment on above: Performed By: #### C BC #### [facility] [address] [place] [address] Dr. Duy James Monocytes/100 WBC (Bld) 7.1 % Normal 1.7-12.0 [facility] Comment on above: Performed By: #### C BC #### [facility] [address] [place] [address] Dr. Duy James NEUT # 4.2 103/ul Normal 1.4-6.5 [facility] Comment on above: Performed By: #### C BC #### [facility] [address] [place] [address] Dr. Duy James Neutrophils/100 WBC (Bld) 51.4 % Normal 43.0-75.0 [facility] Comment on above: Performed By: #### C BC #### [facility] [address] [place] [address] Dr. Duy James Platelet mean volume (Bld) [Entitic vol] 10.1 fL Normal 9.5-13.5 [facility] Comment on above: Performed By: #### C BC #### [facility] [address] [place] [address] Dr. Duy James PLT 264 103/ul Normal 150-450 [facility] Comment on above: Performed By: #### C BC #### [facility] [address] [place] [address] Dr. Duy James RBC 4.77 106/ul Normal 4.70-6.10 [facility] Comment on above: Performed By: #### C BC #### [facility] [address] [place] [address] Dr. Duy James WBC 8.2 103/ul Normal 4.0-11.0 [facility] Comment on above: Performed By: #### C BC #### [facility] [address] [place] [address] Dr. Duy James CTA CHEST WO W [...] bilateral pleural effusions. Electronically authenticated by: CODY RAYNA Date: 2022-08-26 20:19 Normal [facility] CULTURE BLOODon 08-26-2022 Microscopic examination of blood, culture Culture Observations: NO GROWTH AT 5 DAYS. Normal [facility] Comment on above: Performed By: #### B MP #### [facility] [address] [place], [place] [address] Dr. Duy James Covid-19 PCR ([facility])on SARS-CoV-2 (COVID-19) RNA RICKY+probe Ql (Unsp spec) Not detected Normal NOT DETECTED [facility] Comment on above: Result Comment: When [...] for this test is supported by the Risk Developer of Health and Human Service's declaration that [...] used). Performed By: #### C BC #### [facility] [address] [place] [address] [address] [address] Duy James D-DIMERon 08-26-2022 D-DIMER 1.10 mg/L FEU Critically high <=0.59 [facility] Comment on above: Performed By: #### D DIM #### [facility] [address] [place] [address] [address] [address] Duy James D-DIMER COMMENTS SEE BELOW Normal [facility] Comment on above: Result Comment: Incr eases [...] hospitalization. Performed By: #### D DIM #### [facility] [address] [place] [address] Dr. Dyu James INFLUENZA A AND B AGon 08-26 INFLUANE SEE BELOW Normal [facility] Comment on above: Result Comment: Nega tive for Flu A protein angiten. Infection due to Flu A cannot be ruled out. Flu A angiten in the sample may be below the detection limit of the test. Performed By: #### I NFLUAB #### [facility] [address] [place] [address] Dr. Duy James INFLUBNEG SEE BELOW Normal [facility] Comment on above: Result Comment: Nega tive for Flu B protein antigen. Infection due to Flu B cannot be ruled out. Flu B antigen in the sample may be below the detection limit of the test. Performed By: #### I NFLUAB #### [facility] [address] [place] [address] Dr. Duy James INFLUENZA A AG Negative Normal NEGATIVE SEE COMMENT [facility] Comment on above: Performed By: #### I NFLUAB #### [facility] [address] [place] [address] Dr. Duy James INFLUENZA B AG Negative Normal NEGATIVE SEE COMMENT [facility] Comment on above: Performed By: #### I NFLUAB #### [facility] [address] [place] [address] Dr. Duy James LACTATE/LACTIC ACIDon 2022 Lactate [Moles/Vol] 1.8 mmol/L Normal 0.4-1.9 [facility] Comment on above: Performed By: #### L ACT #### [facility] [address] [place] [address] Dr. Duy James PROF 14(COMP METB)on 023 Albumin [Mass/Vol] 3.7 g/dL Normal 3.4-5.0 [facility] Comment on above: Performed By: #### B TALENT DEVELOPMENT ANALYST, CMP, HSTROPN #### [facility] [address] [place] [address] Dr. Duy James Albumin/Globulin [Mass ratio] 1.0 {ratio} Normal [facility] Comment on above: Performed By: #### B TALENT DEVELOPMENT ANALYST, CMP, HSTROPN #### [facility] [address] [place] [address] Dr. Duy James ALP [Catalytic activity/Vol] 84 U/L Normal 46-116 [facility] Comment on above: Performed By: #### B TALENT DEVELOPMENT ANALYST, CMP, HSTROPN #### [facility] [address] [place] [address] Dr. Duy James ALT [Catalytic activity/Vol] 103 U/L Critically high 16-63 [facility] Comment on above: Performed By: #### B TALENT DEVELOPMENT ANALYST, CMP, HSTROPN #### [facility] [address] [place] [address] Dr. Duy James Anion gap [Moles/Vol] 15.5 mmol/L Normal [facility] Comment on above: Performed By: #### B TALENT DEVELOPMENT ANALYST, CMP, HSTROPN #### [facility] [address] [place] [address] Dr. Duy James AST [Catalytic activity/Vol] 62 U/L Critically high 15-37 [facility] Comment on above: Performed By: #### B TALENT DEVELOPMENT ANALYST, CMP, HSTROPN #### [facility] [address] [place] [address] Dr. Duy James Bilirubin [Mass/Vol] 0.3 mg/dL Normal 0.2-1.0 [facility] Comment on above: Performed By: #### B TALENT DEVELOPMENT ANALYST, CMP, HSTROPN #### [facility] [address] [place] [address] Dr. Duy James Calcium [Mass/Vol] 8.8 mg/dL Normal 8.5-10.1 [facility] Comment on above: Performed By: #### B TALENT DEVELOPMENT ANALYST, CMP, HSTROPN #### [facility] [address] [address] [address] Duy James Chloride [Moles/Vol] 106 mmol/L Normal 98-107 [facility] Comment on above: Performed By: #### B TALENT DEVELOPMENT ANALYST, CMP, HSTROPN #### [facility] [address] [address] [address] Duy James CO2 [Moles/Vol] 25.9 mmol/L Normal 21.0-32.0 [facility] [place] Comment on above: Performed By: #### B TALENT DEVELOPMENT ANALYST, CMP, HSTROPN #### [facility] [address] [place] [address] Dr. Duy James Creatinine [Mass/Vol] 1.32 mg/dL Critically high 0.70-1.30 [facility] Comment on above: Performed By: #### B TALENT DEVELOPMENT ANALYST, CMP, HSTROPN #### [facility] [address] [place] [address] Dr. Duy James EGFR-AF CITIZEN [place] >60 Normal >=60 [facility] [place] Comment on above: Performed By: #### B TALENT DEVELOPMENT ANALYST, CMP, HSTROPN #### [facility] [address] [place] [address] Dr. Duy James EGFR-NON AF CITIZEN OF [place] 54 mL/min/1.73m2 Critically low >=60 [facility] Comment on above: Performed By: #### B TALENT DEVELOPMENT ANALYST, CMP, HSTROPN #### [facility] [address] [place] [address] Dr. Duy James Globulin (S) [Mass/Vol] 3.6 g/dL Normal [facility] Comment on above: Performed By: #### B TALENT DEVELOPMENT ANALYST, CMP, HSTROPN #### [facility] [address] [place] [address] Dr. Duy James Glucose [Mass/Vol] 146 mg/dL Critically high 74-106 [facility] Comment on above: Performed By: #### B TALENT DEVELOPMENT ANALYST, CMP, HSTROPN #### [facility] [address] [place] [address] Dr. Duy James Potassium [Moles/Vol] 4.4 mmol/L Normal 3.5-5.1 [facility] Comment on above: Performed By: #### B TALENT DEVELOPMENT ANALYST, CMP, HSTROPN #### [facility] [address] [place] [address] Dr. Duy James Protein [Mass/Vol] 7.3 g/dL Normal 6.4-8.2 [facility] Comment on above: Performed By: #### B TALENT DEVELOPMENT ANALYST, CMP, HSTROPN #### [facility] [address] [place] [address] Dr. Duy James Sodium [Moles/Vol] 143 mmol/L Normal 136-145 [facility] Comment on above: Performed By: #### B TALENT DEVELOPMENT ANALYST, CMP, HSTROPN #### [facility] [address] [place] [address] Dr. Duy James Urea nitrogen [Mass/Vol] 15.0 mg/dL Normal 7.0-18.0 [facility] Comment on above: Performed By: #### B TALENT DEVELOPMENT ANALYST, CMP, HSTROPN #### [facility] [address] [place] [address] Dr. Duy James Urea nitrogen/Creatinine [Mass ratio] 11.4 mg/mg Normal [facility] [facility] Comment [facility] above: Performed By: #### B TALENT DEVELOPMENT ANALYST, CMP, HSTROPN #### [facility] [address] [place] [address] Dr. Duy James TROPONIN, HIGH SENSITIVITYon 08-26-2022 HSTROP 41.1 pg/mL Normal 4.0-76.1 [facility] Comment on above: Result Comment: CUT- OFF POINTS HAVE BEEN ESTABLISHED BASED ON THE FOURTH UNIVERSAL DEFINITIONS OF MYOCARDIAL INFARCTION. THE UPPER REFERENCE LIMIT (URL) OF TROPONIN, DEFINED THE 99TH PERCENTILE OF cTnI DISTRIBUTION IN A REFERENCE POPULATION, HAS BEEN CONFIRMED THE DECISION THRESHOLD FOR HI DIAGNOSIS. Performed By: #### B MP #### [facility] [address] [place] [address] Dr. Duy James CBC AUTO DIFFon 05-18-2022 BASO # 0.1 103/ul Normal 0.0-0.1 [facility] Comment on above: Performed By: #### C BC #### [facility] [address] [place] [address] Dr. Duy James Basophils/100 WBC (Bld) 1.5 % Normal 0.2-2.0 [facility] Comment on above: Performed By: #### C BC #### [facility] [address] [place] [address] Dr. Duy James EO # 0.3 103/ul Normal 0.0-0.7 [facility] Comment on above: Performed By: #### C BC #### [facility] [address] [place] [address] Dr. Duy James Eosinophils/100 WBC (Bld) 4.7 % Normal 0.9-7.0 [facility] Comment on above: Performed By: #### C BC #### [facility] [address] [place] [address] Dr. Duy James Erythrocyte distribution width (RBC) [Ratio] 12.8 % Normal 11.0-15.0 [facility] Comment on above: Performed By: #### C BC #### [facility] [address] [place] [address] Dr. Duy James Hematocrit (Bld) [Volume fraction] 39.1 % Critically low 42.0-54.0 [facility] Comment on above: Performed By: #### C BC #### [facility] [address] [place] [address] Dr. Duy James Hemoglobin (Bld) [Mass/Vol] 13.2 g/dL Critically low 14.0-18.0 [facility] Comment on above: Performed By: #### C BC #### [facility] [address] [place] [address] Dr. Duy James IG # 0.03 10e3/ul Normal 0.00-0.03 [facility] Comment on above: Performed By: #### C BC #### [facility] [address] [place] [address] Dr. Duy James IG % 0.5 % Normal 0.0-0.5 [facility] Comment on above: Performed By: #### C BC #### [facility] [address] [place] [address] Dr. Duy James LYMPH # 1.4 103/ul Normal 1.2-3.8 [facility] Comment on above: Performed By: #### C BC #### [facility] [address] [place] [address] Dr. Duy James Lymphocytes/100 WBC (Bld) 23.8 % Normal 20.5-60.0 [facility] Comment on above: Performed By: #### C BC #### [facility] [address] [place] [address] Dr. Duy James MANUAL DIFF REQ NO Normal [facility] Comment on above: Performed By: #### C BC #### [facility] [address] [place] [address] Dr. Duy James MCH (RBC) [Entitic mass] 28.8 pg Normal 25.9-34.0 [facility] Comment on above: Performed By: #### C BC #### [facility] [address] [place] [address] Dr. Duy James MCHC (RBC) [Mass/Vol] 33.8 g/dL Normal 29.9-35.2 [facility] Comment on above: Performed By: #### C BC #### [facility] [address] [place] [address] Dr. Duy James MCV (RBC) [Entitic vol] 85.2 fL Normal 80.0-94.0 [facility] Comment on above: Performed By: #### C BC #### [facility] [address] [place] [address] Dr. Duy James MONO # 0.5 103/ul Normal 0.3-0.8 [facility] Comment on above: Performed By: #### C BC #### [facility] [address] [place] [address] Dr. Duy James Monocytes/100 WBC (Bld) 7.8 % Normal 1.7-12.0 [facility] Comment on above: Performed By: #### C BC #### [facility] [address] [address] [address] Duy James NEUT # 3.7 103/ul Normal 1.4-6.5 [facility] Comment on above: Performed By: #### C BC #### [facility] [address] [address] [address] Duy James Neutrophils/100 WBC (Bld) 61.7 % Normal 43.0-75.0 [facility] Comment on above: Performed By: #### C BC #### [facility] [address] [address] [address] Duy James Platelet mean volume (Bld) [Entitic vol] 9.6 fL Normal 9.5-13.5 [facility] Comment on above: Performed By: #### C BC #### [facility] [address] [place] [address] Dr. Duy James PLT 199 103/ul Normal 150-450 [facility] Comment on above: Performed By: #### C BC #### [facility] [address] [place] [address] Dr. Duy James RBC 4.59 106/ul Critically low 4.70-6.10 [facility] Comment on above: Performed By: #### C BC #### [facility] [address] [place] [address] Dr. Duy James WBC 6.0 103/ul Normal 4.0-11.0 [facility] Comment on above: Performed By: #### C BC #### [facility] [address] [place] [address] Dr. Duy James METHYLMALONIC ACID (MMA)on 0 03-03-2022 Methylmalonic Acid, Serum 232 nmol/L Normal 0-378 [facility] Comment on above: Performed By: #### M MA2 #### [facility] [address] [address] [address] Duy James CBC AUTO DIFFon 02-25-2022 BASO # 0.1 103/ul Normal 0.0-0.1 [facility] Comment on above: Performed By: #### C BC #### [facility] [address] [address] [address] Duy James Basophils/100 WBC (Bld) 1.3 % Normal 0.2-2.0 [facility] Comment on above: Performed By: #### C BC #### [facility] [address] [address] [address] Duy James EO # 0.2 103/ul Normal 0.0-0.7 [facility] Comment on above: Performed By: #### C BC #### [facility] [address] [address] [address] Duy James Eosinophils/100 WBC (Bld) 4.8 % Normal 0.9-7.0 [facility] Comment on above: Performed By: #### C BC #### [facility] [address] [place] [address] Dr. Duy James Erythrocyte distribution width (RBC) [Ratio] 13.9 % Normal 11.0-15.0 [facility] Comment on above: Performed By: #### C BC #### [facility] [address] [place] [address] Dr. Duy James Hematocrit (Bld) [Volume fraction] 36.2 % Critically low 42.0-54.0 [facility] Comment on above: Performed By: #### C BC #### [facility] [address] [place] [address] Dr. Duy James Hemoglobin (Bld) [Mass/Vol] 12.2 g/dL Critically low 14.0-18.0 [facility] Comment on above: Performed By: #### C BC #### [facility] [address] [place] [address] Dr. Duy James IG # 0.01 10e3/ul Normal 0.00-0.03 [facility] Comment on above: Performed By: #### C BC #### [facility] [address] [address] [address] Duy James IG % 0.2 % Normal 0.0-0.5 [facility] Comment on above: Performed By: #### C BC #### [facility] [address] [place] [address] Dr. Duy James LYMPH # 1.3 103/ul Normal 1.2-3.8 [facility] Comment on above: Performed By: #### C BC #### [facility] [address] [place] [address] Dr. Duy James Lymphocytes/100 WBC (Bld) 29.3 % Normal 20.5-60.0 [facility] Comment on above: Performed By: #### C BC #### [facility] [address] [place] [address] Dr. Duy James MANUAL DIFF REQ NO Normal [facility] Comment on above: Performed By: #### C BC #### [facility] [address] [place] [address] Dr. Duy James MCH (RBC) [Entitic mass] 29.5 pg Normal 25.9-34.0 [facility] Comment on above: Performed By: #### C BC #### [facility] [address] [place] [address] Dr. Duy James MCHC (RBC) [Mass/Vol] 33.7 g/dL Normal 29.9-35.2 [facility] Comment on above: Performed By: #### C BC #### [facility] [address] [place] [address] Dr. Duy James MCV (RBC) [Entitic vol] 87.7 fL Normal 80.0-94.0 [facility] Comment on above: Performed By: #### C BC #### [facility] [address] [place] [address] Dr. Duy James MONO # 0.4 103/ul Normal 0.3-0.8 [facility] Comment on above: Performed By: #### C BC #### [facility] [address] [place] [address] Dr. Duy James Monocytes/100 WBC (Bld) 9.4 % Normal 1.7-12.0 [facility] Comment on above: Performed By: #### C BC #### [facility] [address] [address] [address] Duy James NEUT # 2.5 103/ul Normal 1.4-6.5 [facility] Comment on above: Performed By: #### C BC #### [facility] [address] [address] [address] Duy James Neutrophils/100 WBC (Bld) 55.0 % Normal 43.0-75.0 [facility] Comment on above: Performed By: #### C BC #### [facility] [address] [address] [address] Duy James Platelet mean volume (Bld) [Entitic vol] 9.4 fL Critically low 9.5-13.5 [facility] Comment on above: Performed By: #### C BC #### [facility] [address] [place] [address] Dr. Duy James PLT 142 103/ul Critically low 150-450 [facility] Comment on above: Performed By: #### C BC #### [facility] [address] [place] [address] Dr. Duy James RBC 4.13 106/ul Critically low 4.70-6.10 [facility] Comment on above: Performed By: #### C BC #### [facility] [address] [place] [address] Dr. Duy James WBC 4.6 103/ul Normal 4.0-11.0 [facility] Comment on above: Performed By: #### C BC #### [facility] [address] [place] [address] Dr. Duy James FERRITINon 02-25-2022 Ferritin [Mass/Vol] 274.0 ng/mL Normal 26.0-388.0 [facility] Comment on above: Performed By: #### C BC #### [facility] [address] [place] [address] Dr. Duy James IRON AND TIBCon 02-25-2022 % SATURATION 33.8 % Normal [facility] Comment on above: Performed By: #### C BC #### [facility] [address] [place], [place] [address] Dr. Duy James Iron [Mass/Vol] 97.0 ug/dL Normal 65.0-175.0 [facility] Comment on above: Performed By: #### C BC #### [facility] [address] [place], [place] [address] Dr. Duy James TIBC DIRECT 287.0 ug/dL Normal 250.0-450.0 [facility] Comment on above: Performed By: #### C BC #### [facility] [address] [address] [address] Duy James VIT B12 AND FOLATEon 022 Cobalamin (Vitamin B12) [Mass/Vol] 817.0 pg/mL Normal 193.0-986.0 [facility] Comment on above: Performed By: #### C BC #### [facility] [address] [address] [address] Duy James FOLATE 16.90 ng/mL Normal 8.60-58.90 [facility] Comment on above: Performed By: #### C BC #### [facility] [address] [address] [address] Duy James XR CHEST 2 Von [...] by: ALEXA MCKENZIE Date: 2021-12-28 13:59 Normal [facility] COVID Quick Testingon 2021 Result Negative [facility] Other Quick Fluon 08-07-2021 FLUAV Ab CF (S) [Titer] Negative [facility] Other FLUBV Ab CF (S) [Titer] Negative [facility] Other COVID Quick Testingon 2020 Result Positive [facility] Other Vital Signs Date Time Vital Sign Value Performing Clinician Facility 02-29-2024 09:55-0400 Body height 177.[address] [facility] 02-29-2024 09:55-0400 Body mass index (BMI) [Ratio] 33.7 kg/m2 [facility] 02-29-2024 09:55-0400 Body weight 106.[address] [facility] 02-29-2024 09:55-0400 Diastolic blood pressure 65 mm[Hg] [facility] 02-29-2024 09:55-0400 Heart rate 67 /min [facility] 02-29-2024 09:55-0400 Respiratory rate 12 /min [facility] 02-29-2024 09:55-0400 Systolic blood pressure 151 mm[Hg] [facility] 12-25-2023 07:50-0400 Diastolic blood pressure 66 mm[Hg] Meghan Lue [facility] 12-25-2023 07:50-0400 Heart rate 57 /min Meghan Lue [facility] 12-25-2023 07:50-0400 Mean blood pressure 91 mm[Hg] Meghan Lue [facility] 12-25-2023 07:50-0400 Systolic blood pressure 143 mm[Hg] Meghan Lue [facility] 12-25-2023 07:49-0400 Heart rate 62 /min Meghan Lue [facility] 12-25-2023 07:49-0400 SaO2% (BldA) [Mass fraction] 98 % Meghan Lue [facility] 12-25-2023 07:48-0400 Body temperature 98.06 [degF] Meghan Lue [facility] 12-25-2023 07:48-0400 Blood Pressure Location Meghan Lue [facility] 12-25-2023 07:48-0400 Diastolic blood pressure 61 mm[Hg] Meghan Lue [facility] 12-25-2023 07:48-0400 Mean blood pressure 95 mm[Hg] Meghan Lue [facility] 12-25-2023 07:48-0400 Systolic blood pressure 164 mm[Hg] Meghan Lue [facility] 12-25-2023 07:48-0400 Respiratory rate 16 /min Meghan Lue [facility] 11-29-2023 10:55-0400 Blood Pressure Location Meghan Lue [facility] 11-29-2023 10:55-0400 Diastolic blood pressure 74 mm[Hg] Meghan Lue [facility] 11-29-2023 10:55-0400 Heart rate 68 /min Meghan Lue [facility] 11-29-2023 10:55-0400 Respiratory rate 16 /min Meghan Lue [facility] 11-29-2023 10:55-0400 Systolic blood pressure 163 mm[Hg] Meghan Lue [facility] 11-28-2023 08:42-0400 Body height 177.[address] [facility] 11-28-2023 08:42-0400 Body mass index (BMI) [Ratio] 33.2 kg/m2 [facility] 11-28-2023 08:42-04[address] Body weight [address] [facility] 11-28-2023 08:42-0400 Diastolic blood pressure 80 mm[Hg] [facility] 11-28-2023 08:42-0400 Heart rate 64 /min [facility] 11-28-2023 08:42-0400 Respiratory rate 12 /min [facility] 11-28-2023 08:42-0400 Systolic blood pressure 188 mm[Hg] [facility] 06-16-2023 10:00-0500 Diastolic blood pressure 92 mm[Hg] Meghan Lue [facility] 06-16-2023 10:00-0500 Mean blood pressure 115 mm[Hg] Meghan Lue [facility] 06-16-2023 10:00-0500 Systolic blood pressure 162 mm[Hg] Meghan Lue [facility] 06-16-2023 09:44-0500 Blood Pressure Location Meghan Lue [facility] 06-16-2023 09:44-0500 Body temperature 97.16 [degF] Meghan Lue [facility] 06-16-2023 09:44-0500 Diastolic blood pressure 88 mm[Hg] Meghan Lue [facility] 06-16-2023 09:44-0500 Heart rate 78 /min Meghan Lue [facility] 06-16-2023 09:44-0500 Systolic blood pressure 144 mm[Hg] Meghan Lue [facility] 06-06-2023 17:10-0500 Diastolic blood pressure 70 mm[Hg] Meghan Lue [facility] 06-06-2023 17:10-0500 Heart rate 60 /min Meghan Lue [facility] 06-06-2023 17:10-0500 Respiratory rate 16 /min Meghan Lue [facility] 06-06-2023 17:10-0500 SaO2% (BldA) [Mass fraction] 100 % Meghan Lue [facility] 06-06-2023 17:10-0500 Systolic blood pressure 120 mm[Hg] Meghan Lue [facility] 06-06-2023 17:02-0500 Heart rate 62 /min Meghan Lue [facility] 06-06-2023 17:02-0500 SaO2% (BldA) [Mass fraction] 100 % Meghan Lue [facility] 06-06-2023 17:02-0500 Respiratory rate 16 /min Meghan Lue [facility] 06-06-2023 16:52-0500 Diastolic blood pressure 56 mm[Hg] Meghan Lue [facility] 06-06-2023 16:52-0500 Heart rate 60 /min Meghan Lue [facility] 06-06-2023 16:52-0500 SaO2% (BldA) [Mass fraction] 97 % Meghan Lue [facility] 06-06-2023 16:52-0500 Systolic blood pressure 89 mm[Hg] Meghan Lue [facility] 06-06-2023 16:29-0500 Diastolic blood pressure 89 mm[Hg] Meghan Lue [facility] 06-06-2023 16:29-0500 Systolic blood pressure 154 mm[Hg] Meghan Lue [facility] 06-06-2023 14:00-0500 Blood Pressure Location Meghan Lue [facility] 06-06-2023 14:00-0500 Mean blood pressure 84 mm[Hg] Meghan Lue [facility] 06-06-2023 14:00-0500 Respiratory rate 18 /min Meghan Lue [facility] 05-10-2023 10:54-0500 Blood Pressure Location Meghan Lue [facility] 05-10-2023 10:54-0500 Diastolic blood pressure 76 mm[Hg] Meghan Lue [facility] 05-10-2023 10:54-0500 Heart rate 68 /min Meghan Lue [facility] 05-10-2023 10:54-0500 Respiratory rate 16 /min Meghan Lue [facility] 05-10-2023 10:54-0500 Systolic blood pressure 132 mm[Hg] Meghan Lue [facility] 04-11-2023 11:40-0400 Blood Pressure Location THERESA LONNIE [facility] 04-11-2023 11:40-0400 Diastolic blood pressure 75 mm[Hg] THERESA LONNIE [facility] 04-11-2023 11:40-0400 Heart rate 68 /min THERESA LONNIE [facility] 04-11-2023 11:40-0400 Respiratory rate 16 /min THREESA LONNIE [facility] 04-11-2023 11:40-0400 Systolic blood pressure 134 mm[Hg] THERESA LONNIE [facility] 12-20-2022 10:11-0400 Blood Pressure Location THERESA LONNIE [facility] 12-20-2022 10:11-0400 Diastolic blood pressure 80 mm[Hg] THERESA LONNIE [facility] 12-20-2022 10:11-0400 Heart rate 70 /min THERESA LONNIE [facility] 12-20-2022 10:11-0400 Respiratory rate 16 /min THERESA LONNIE [facility] 12-20-2022 10:11-0400 Systolic blood pressure 140 mm[Hg] THERESA LONNIE [facility] 11-23-2022 08:30-0400 Body height 177.8 cm [facility]io [employer] Other [facility] Other 11-23-2022 08:30-0400 Body mass index (BMI) [Ratio] 32.42 kg/m2 Gio Ball Other [facility] Other 11-23-2022 08:30-0400 Body weight 102.51 kg Gio Ball Other [facility] Other 11-23-2022 08:30-0400 Diastolic blood pressure 69 mm[Hg] Gio Ball Other [facility] Other 11-23-2022 08:30-0400 Respiratory rate 12 /min Gio Ball Other [facility] Other 11-23-2022 08:30-0400 Systolic blood pressure 162 mm[Hg] Gio Ball Other [facility] Other 08-31-2022 10:00-0500 Body height 177.8 cm Gio Ball Other [facility] Other 08-31-2022 10:00-0500 Body mass index (BMI) [Ratio] 33.43 kg/m2 Gio Ball Other [facility] Other 08-31-2022 10:00-0500 Body weight 105.69 kg Gio Ball Other [facility] Other 08-31-2022 10:00-0500 Diastolic blood pressure 80 mm[Hg] Gio Ball Other [facility] Other 08-31-2022 10:00-0500 Respiratory rate 16 /min Gio Ball Other [facility] Other 08-31-2022 10:00-0500 SaO2% (BldA) [Mass fraction] 98 % Gio Ball Other [facility] Other 08-31-2022 10:00-0500 Systolic blood pressure 132 mm[Hg] Gio Ball Other [facility] Other 10-26-2021 09:11-0400 Blood Pressure Location Daniel Kern Jr. [facility] 10-26-2021 09:11-0400 Diastolic blood pressure 77 mm[Hg] [facility] Jr[facility] 10-26-2021 09:11-0400 Heart rate 78 /min Daniel Kern Jr. [facility] 10-26-2021 09:11-0400 Respiratory rate 16 /min Daniel Kern Jr. [facility] 10-26-2021 09:11-0400 Systolic blood pressure 181 mm[Hg] Daniel Kern Jr. [facility] 08-07-2021 11:00-0500 Body height 177.8 cm Gina Starks Other [facility] Other 08-07-2021 11:00-0500 Body mass index (BMI) [Ratio] 30.13 kg/m2 Gina Starks Other [facility] Other 08-07-2021 11:00-0500 Body temperature 101 [degF] Gina Starks Other [facility] Other 08-07-2021 11:00-0500 Body weight 95.26 kg Gina Starks Other [facility] Other 08-07-2021 11:00-0500 Respiratory rate 18 /min Gina Starks Other [facility] Other 02-12-2022 11:00-0500 SaO2% (BldA) [Mass fraction] 97 % Gina Starks Other [employer] Other 05-24-2021 18:15-0500 Body height 177.8 cm Sybil Lee Other [facility] Other 05-24-2021 18:15-0500 Body mass index (BMI) [Ratio] 30.85 kg/m2 Sybil Lee Other [facility] Other 05-24-2021 18:15-0500 Body temperature 96.9 [degF] Sybil Lee Other [facility] Other 05-24-2021 18:15-0500 Body weight 97.52 kg Sybil Lee Other [facility] Other 05-24-2021 18:15-0500 SaO2% (BldA) [Mass fraction] 91 % Sybil Lee Other [facility] Other Encounters Encounter Date Encounter Type Care Provider Facility Start: 10-03-2024 ambulatory Meghan Zafare Facility[facility] Start: 03-29-2024 End: 03-29-2024 ambulatory Meghan M. Lue Facility:[facility] Start: 03-29-2024 End: 03-29-2024 Patient encounter procedure Meghan Brito [facility] Start: 03-06-2024 Non-patient / Non-visit DO Heath Cavanaugh Work Phone: [facility] Work Phone: Start: 03-06-2024 End: 03-06-2024 ambulatory DO Gio Cavanaugh Work Phone: [facility] Work Phone: Start: 03-06-2024 End: 03-06-2024 Departed Referred DO Gio Cavanaugh Work Phone: [facility] Start: 03-06-2024 End: 03-06-2024 ambulatory Meghan Brito [id number] Start: 03-06-2024 End: 03-06-2024 Off-Site Meghan Brito [facility] Start: 03-05-2024 Non-patient / Non-visit DO Heath nicolenoreen Cavanaugh Work Phone: [facility] Work Phone: Start: 02-29-2024 End: 02-29-2024 ambulatory [facility] Work Phone: Start: 02-29-2024 End: 02-29-2024 Patient encounter procedure [facility] Physician [facility] Work Phone: Start: 02-22-2024 Non-patient / Non-visit [facility] Physician [facility] Work Phone: Start: 02-12-2024 End: 02-12-2024 ambulatory [facility] Start: 02-12-2024 End: 02-12-2024 Encounter for other preprocedural examination [facility] Start: 01-12-2024 ambulatory Meghan Brito Facility:[facility] Start: 01-03-2024 Encounter for other preprocedural examination [facility] Start: 01-03-2024 End: 01-03-2024 ambulatory [facility] Start: 12-25-2023 End: 12-25-2023 ambulatory Meghan Brito Facility:[facility] Start: 12-25-2023 End: 12-25-2023 Patient encounter procedure Meghan Brito [facility] Start: 11-29-2023 End: 01-03-2024 Pre-admission assessment Meghan Brito [facility] Start: 11-29-2023 End: 11-29-2023 ambulatory Meghankevin Brito Facility:[facility] Start: 11-29-2023 End: 11-29-2023 Patient encounter procedure Meghan Brito [facility] Start: 11-28-2023 End: 11-28-2023 ambulatory [facility] Work Phone: Start: 11-28-2023 End: 11-28-2023 Encounter for general adult medical examination without abnormal findings [facility] Start: 11-28-2023 End: 11-28-2023 Patient encounter procedure [facility] Work Phone: Start: 11-24-2023 Non-patient / Non-visit [facility] Physician [facility] Work Phone: Start: 07-31-2023 End: 07-31-2023 ambulatory Meghankevin Brito Facility:[facility] Start: 07-31-2023 End: 07-31-2023 Patient encounter procedure Meghan Brito [facility] Start: 06-30-2023 End: 06-30-2023 ambulatory Meghan AmandeepReinier Daryl Facility:[facility] Start: 06-30-2023 End: 06-30-2023 Lab Drop off Meghankevin Brito [facility] Start: 06-30-2023 End: 06-30-2023 ambulatory Meghan Amandeep. Charismae Facility:[facility] Start: 06-30-2023 End: 06-30-2023 Patient encounter procedure Meghan BernsteinReinier Daryl [facility] [place] Start: 06-22-2023 End: 06-22-2023 ambulatory Gio Cavanaugh Other [facility] Other Start: 06-22-2023 Telephone encounter Gio Ball [facility] Start: 06-21-2023 Telephone encounter Gio Ball [facility] Start: 06-21-2023 End: 06-21-2023 ambulatory Meghan AmandeepReinier Zafare [facility] Other Start: 06-21-2023 End: 06-21-2023 Patient encounter procedure Meghan BernsteinReinier Daryl [facility] Start: 06-20-2023 End: 06-20-2023 ambulatory Gio Cavanaugh Other [facility] Other Start: 06-20-2023 Telephone encounter Gio Ball [facility] Start: 06-18-2023 End: 06-18-2023 ambulatory Gio Cavanaugh Other [facility] Other Start: 06-18-2023 Telephone encounter Gio Ball [facility] Start: 06-16-2023 End: 06-16-2023 ambulatory Meghan Amandeep. Lue Facility:[facility] Start: 06-16-2023 End: 06-16-2023 Patient encounter procedure Meghan M. Charismae [facility] [place] Start: 06-15-2023 End: 06-15-2023 ambulatory Meghan M. Lue Facility:[facility] Start: 06-15-2023 End: 06-15-2023 Patient encounter procedure Meghan Bernstein. Charismae [facility] Start: 06-14-2023 End: 06-14-2023 ambulatory Meghan M. Lue Facility:[facility] Start: 06-14-2023 End: 06-14-2023 Patient encounter procedure [facility]han M. [facility]ismae [facility] Start: 06-06-2023 End: 06-07-2023 ambulatory DUY JAMES MD Facility:[id number] Start: 06-06-2023 End: 06-06-2023 Admission to same day surgery center Meghan Brito [facility] Start: 06-06-2023 End: 06-06-2023 ambulatory Meghan M. Lue Facility:[facility] Start: 06-05-2023 End: 06-05-2023 ambulatory Gio Cavanaugh Other [facility] Other Start: 06-05-2023 Telephone encounter Gio BRITTON [facility] Start: 05-10-2023 End: 05-10-2023 ambulatory Meghan M. Lue Facility:[facility] Start: 05-10-2023 End: 05-10-2023 Patient encounter procedure [facility] Start: 04-28-2023 ambulatory Meghan M. Lue Facility:[facility] Start: 04-27-2023 End: 04-27-2023 ambulatory Gio Cavanaugh Other [facility] Other Start: 04-27-2023 Telephone encounter Gio BRITTON [facility] Start: 04-11-2023 End: 04-11-2023 ambulatory THERESA FLEMING Facility:[facility] Start: 04-11-2023 End: 04-11-2023 Patient encounter procedure [facility]LEM[facility] Start: 04-04-2023 End: 04-04-2023 ambulatory Gio Cavanaugh Other [facility] Other Start: 04-04-2023 Telephone encounter Gio Cavanaugh [facility] Start: 04-03-2023 End: 04-03-2023 Patient encounter procedure DO Gio Cavanaugh Work Phone: [facility] [place] Work Phone: Start: 04-03-2023 End: 04-03-2023 ambulatory DO Gio Cavanaugh Work Phone: [facility] Work Phone: Start: 12-20-2022 End: 12-20-2022 Patient encounter procedure THERESA FLEMING [facility] Start: 12-13-2022 End: 12-13-2022 ambulatory Gio Cavanaugh Other [facility] Other Start: 12-13-2022 Telephone encounter Gio Cavanaugh [facility] Start: 12-12-2022 End: 12-12-2022 ambulatory Gio Cavanaugh Other [facility] Other Start: 12-12-2022 Telephone encounter Gio Cavanaugh [facility] Start: 11-23-2022 End: 11-23-2022 ambulatory Gio Cavanaugh Other [facility] Other Start: 11-23-2022 Encounter for genera l adult medical examination without abnormal findings Gio Cavanaugh [facility] Start: 11-23-2022 Periodic preventive med est patient 65yrs& older Gio Cavanaugh [facility] Start: 11-07-2022 End: 11-08-[address] GIO CAVANAUGH Facility:[facility] Start: 08-31-2022 End: 08-31-2022 ambulatory Gio Cavanaugh Other [facility] Other Start: 08-31-2022 Office outpatient vi sit 25 minutes Gio Cavanaugh [facility] Start: 08-26-2022 End: 08-28-2022 Evaluation and management of inpatient DR DARIUS GIANG . Facility:[facility] Start: 05-18-2022 End: 05-19-[address] GIO CAVANAUGH Facility:[facility] Start: 02-25-2022 End: 02-26-[address] GIO CAVANAUGH Facility:[facility] Start: 01-07-[address] GIO CAVANAUGH Facili ty:[facility] Start: 12-28-2021 End: 12-29-[address] GIO CAVANAUGH Facility:[facility] Start: 11-18-2021 Adult health examination Joseph Cavanaugh Other [facility] Other Start: 10-26-2021 End: 10-26-2021 Patient encounter procedure Daniel Kern Jr. [facility] Start: 08-07-2021 End: 08-07-2021 ambulatory Gina Starks Other [facility] Other Start: 08-07-2021 Office outpatient vi sit 15 minutes Gina Starks [facility] Start: 05-24-2021 End: 05-24-2021 ambulatory Sybil Lee Other [facility] Other Start: 05-24-2021 Office outpatient vi sit [...] of Treatment Date Care Activity Detail Author [facility] Immunizations Immunization Date Immunization Notes Care Provider Renetta thacker 05-25-2023 influenza virus vaccine, unspecified formulation [facility] 05-25-2023 influenza, high dose seasonal, preservative-free Gio Cavanaugh Other [facility] Other 05-25-2023 pneumococcal polysaccharide vaccine, 23 valent Gio Cavanaugh Other [facility] 02-24-2022 influenza virus vaccine, unspecified formulation THERESA FLEMING [facility] 02-24-2022 influenza, high dose seasonal, preservative-free Gio Cavanaugh Other [facility] Other 11-18-2021 pneumococcal conjuga te vaccine, 13 valent Gio Cavanaugh Other [facility] 09-01-2021 COVID-19 Vaccine Moderna - Documentation Purposes Only Gio Cavanaugh Other [facility] 01-01-2022 pneumococcal conjuga te vaccine, 13 valent Gio Cavanaugh Other [facility] 09-02-2020 SARS-CoV-2 (COVID-19 ) Ad26 vaccine, recombinant Daniel Kern Jr. [facility] 05-03-2019 influenza virus vaccine, split virus (incl. purified surface antigen) Gio Cavanaugh Other [facility] Other 05-03-2019 influenza virus vaccine, unspecified formulation [facility] 05-09-2018 influenza virus vaccine, split virus (incl. purified surface antigen) Gio Cavanaugh Other [facility] Other 05-09-2018 influenza virus vaccine, unspecified formulation [facility] Payers Date Payer Category Payer Unknown [id number] 2023 Medicare [id number] 2023 Medicare [id number] 1959 Self-pay 1959 Unknown [id number] .. [id number] 1956 Unknown [id number] 2.16.84 0.1.619474.3.579.2.593 1956 Unknown [id number] 2.16.84 0.1.824070.3.579.2.593 1956 Unknown [id number] 2.16.84 0.1.379810.3.579.2.593 1956 Unknown [id number] 2.16.84 0.1.425526.3.579.2.593 1956 Unknown [id number] 2.16.84 0.1.183490.3.579.2.593 1956 Unknown [id number] 2.16.84 0.1.039220.3.579.2.593 1956 Unknown [id number] 2.16.8 40.1.358855.3.579.2.159 1956 Unknown [id number] 2.16.8 40.1.274975.3.579.2.727 1956 Unknown [id number] 2.16.8 40.1.631450.3.579.2.727 1956 Unknown [id number] 2.16.8 40.1.078176.3.579.2.727 1956 Unknown [id number] 2.16.8 40.1.996954.3.579.2.727 1956 Unknown [id number] 2.16.8 40.1.104939.3.579.2.727 1956 Unknown [id number] 2.16.8 40.1.196284.3.579.2.727 1956 Unknown [id number] 2.16.8 40.1.971709.3.579.2.727 1956 Unknown [id number] 2.16.8 40.1.473339.3.579.2.727 1956 Unknown [id number] 2.16.8 40.1.255287.3.579.2.727 1956 Unknown [id number] 2.16.8 40.1.848778.3.579.2.727 1956 Unknown [id number] 2.16.8 40.1.170638.3.579.2.727 1956 Unknown [id number] 2.16.8 40.1.498153.3.579.2.727 1956 Unknown [id number] 2.16.8 40.1.313298.3.579.2.727 1956 Unknown [id number] 2.16.8 40.1.119982.3.579.2.727 1956 Unknown [id number] 2.16.8 40.1.369422.3.579.2.727 1956 Unknown [id number] 2.16.8 40.1.852711.3.579.2.727 1956 Unknown [id number] 2.16.8 40.1.194548.3.579.2.727 Medicare Private Health Insurance Unknown [id number] 2.16.8 40.1.260314.3.579.2.531 Unknown [id number] 2.16.8 40.1.669764.3.579.2.531 Social History Date Type Detail Facility Start: 10-26-2021 Tobacco smoking status Heavy t obacco smoker (finding) [facility] Other Sex Assigned At Male [facility] Other Start: 12-20-2022 End: 05-10-2023 Tobacco smoking status Ex-smoker (finding) [facility] Start: 06-16-2023 End: 03-29-2024 Tobacco smoking status Never [facility] Start: 12-16-2020 Tobacco smoking stat [facility] Smoker (finding) [facility] Start: 1955 Sex Assigned At Male [facility] Functional Status Date Assessment Result Facility 03-29-2024 Functional Status N/A [facility] 12-25-2023 Functional Status No [facility] 11-29-2023 Functional Status N/A [facility] 07-31-2023 Functional Status N/A [facility] 06-16-2023 Functional Status N/A [facility] 05-16-2023 Functional Status N/A [facility] 05-10-2023 Functional Status N/A [facility] 04-11-2023 Functional Status N/A [facility] 12-20-2022 Functional Status N/A [facility] Clinical Notes 05-24-2021 to 03-29-2024 Note Date & Type Note Facility 03-29-2024 Hospital Discharge instructions Patient Education 03/29/2024 08:50:52 Benign Prostatic Hyperplasia Benign Prostatic Hyperplasia Benign prostatic hyperplasia (BPH) is an enlarged prostate gland that is caused by the normal aging process. The prostate may get bigger as a man gets older. The condition is not caused by cancer. The prostate is a walnut-sized gland that is involved in the production of semen. It is located in front of the rectum and below the bladder. The bladder stores urine. The urethra carries stored urine out of the body. An enlarged prostate can [...] urethra. Follow these instructions at home: Take esyb-stj-fgklhxb and prescription medicines only as told by [...] provider. Document Revised: 12/29/2021 Document Reviewed: 12/29/2021 [employer] Patient Education 2023 [employer]. Follow Up Care 03/07/2024 08:22:06 With:Daryl HAMILTON, Meghan Tucker, BESSYL, URO Address: [address] [place] [phone] When: Unknown Comments:6 mos [facility] 03-29-2024 Note Patient Education Urology Benign Prostatic Hyperplasia Benign prostatic hyperplasia (BPH) is an enlarged prostate gland that is caused by the normal aging process. The prostate may get bigger as a man gets older. The condition is not caused by cancer. The prostate is a walnut-sized gland that is involved in the production of semen. It is located in front of the rectum and below the bladder. The bladder stores urine. The urethra carries stored urine out of the body. An enlarged prostate can [...] or symptoms? Symptoms of this condition include: ? Getting up often during the night to urinate. ? Needing to urinate frequently during the day. ? Difficulty starting urine flow. ? Decrease in size and strength of your urine stream. ? Leaking (dribbling) after urinating. ? Inability to pass urine. This needs immediate treatment. ? Inability to completely empty your bladder. ? Pain when you pass urine. This is more common if there is also an infection. ? Urinary tract infection (UTI). How is this diagnosed? This condition is diagnosed based on your medical history, a physical exam, and your symptoms. Tests will also be done, such as: ? A post-void bladder scan. This measures any amount of urine that may remain in your bladder after you finish urinating. ? A digital rectal exam. In a rectal exam, your health care provider checks your prostate by putting a lubricated, gloved finger into your rectum to feel the back of your prostate gland. This exam detects the size of your gland and any abnormal lumps or growths. ? An exam of your urine (urinalysis). ? A prostate specific antigen (PSA) screening. This is a blood test used to screen for prostate cancer. ? An ultrasound. This test uses sound waves [...] severity of your condition. Treatment may include: ? Observation and yearly exams. This may be the only treatment needed if your condition and symptoms are mild. ? Medicines to relieve your symptoms, including: ? Medicines to shrink the prostate. ? Medicines to relax the muscle of the prostate. ? Surgery in severe cases. Surgery may include: ? Prostatectomy. In this procedure, the prostate tissue is removed completely through an open incision or with a laparoscope or robotics. ? Transurethral resection of the prostate (TURP). In this procedure, a tool is inserted through the opening at the tip of the penis (urethra). It is used to cut away tissue of the inner core of the prostate. The pieces are removed through the same opening of the penis. This removes the blockage. ? Transurethral incision (TUIP). In this procedure, small cuts are made in the prostate. This lessens the prostate's pressure on the urethra. ? Transurethral microwave thermotherapy (TUMT). This procedure uses microwaves to create heat. The heat destroys and removes a small amount of prostate tissue. ? Transurethral needle ablation (TUNA). This procedure uses radio frequencies to destroy and remove a small amount of prostate tissue. ? Interstitial laser coagulation (ILC). This procedure uses a laser to destroy and remove a small amount of prostate tissue. ? Transurethral electrovaporization (TUVP). This procedure uses electrodes to destroy and remove a small amount of prostate tissue. ? Prostatic urethral lift. This procedure inserts an implant to push the lobes of the prostate away from the urethra. Follow these instructions at home: ? Take edur-vzt-bjorkvv and prescription medicines only as told by your health care provider. ? Monitor your symptoms for any changes. Contact your health care provider with any changes. ? Avoid drinking large amounts of liquid before going to bed or out in public. ? Avoid or reduce how much caffeine or alcohol you drink. ? Give yourself time when you urinate. ? Keep all follow-up visits. This is important. Contact a health care provider if: ? You have unexplained back pain. ? Your symptoms do not get better with treatment. ? You develop side effec (more content not included)... [facility] 02-12-2024 Note [facility] Note Reason for cardiology [...] asked the patien (more content not included)... [facility] 01-03-2024 Note [facility] Note Reason for cardiology [...] mother had diabetes mellitus. His father had HI at age of 50. Many siblings with [...] me in 3 weeks Glenna Bhardwaj MD, [facility] 12-13-2023 Note [id number] [facility] 11-29-2023 Hospital Discharge instructions Patient Education [...] Follow these instructions at home: Medicines Take gceo-ldw-nlrmbto and prescription medicines only as told by [...] to keep your urine pale yellow. Take zaui-nau-wqwszob or prescription medicines. Eat foods that are [...] provider. Document Revised: 03/08/2022 Document Reviewed: 03/08/2022 [employer] Patient Education 2022 [employer]. 11/29/2023 11:20:13 Transurethral Resection of the Prostate [...] including vitamins, herbs, eye drops, creams, and zshf-dbr-kzkefhs medicines. Any problems you or family members [...] provider tells you to take them. Taking czgd-mvh-bfoxrhh medicines, vitamins, herbs, and supplements. Surgery safety [...] provider. Document Revised: 03/08/2022 Document Reviewed: 03/08/2022 [employer] Patient Education 2022 [employer]. Follow Up Care 08/02/2023 09:34:46 With:Meghan Brito MD, URL, URO Address: [address] [phone] When: Unknown [facility] 07-31-2023 Evaluation + Plan note Extrac rina from: Title: - Clinic HOPD Note Author:Meghan Brito MD. Date:07/31/23 Impression and Plan Assessment and Plan: Diagnosis: BPH with urinary obstruction (QLJ09-JG N40.1, Discharge, Medical), Pelvic lymphadenopathy (PKQ40-AD R59.0, Working, Medical), Chronic prostatitis (XAX52-RK N41.1, Discharge, Medical), Feeling of incomplete bladder emptying (RZK56-CZ R39.14, Discharge, Medical), Gross hematuria (ICD10- CM R31.0, Discharge, Medical). Assessment and Plan: Diagnosis: BPH with urinary obstruction (BBQ07-EA N40.1, Discharge, Medical), Chronic prostatitis (IXG31-GD N41.1, Discharge, Medical), Feeling of incomplete bladder emptying (QRU02-EF R39.14, Discharge, Medical), Gross hematuria (XXL10-GM R31.0, Discharge, Medical), Pelvic lymphadenopathy (BYX19-KJ R59.0, Working, Medical). 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 Gross hematuria - after [place] CTU 07/05/23 at [facility] - neg for upper tract filling [...] in 4 to 5 months with [facility]02-05-2024 Hospital Discharge instructions Patient Education 07/31/2023 09:05:54 [...] including vitamins, herbs, eye drops, creams, and umzz-tiq-xtijmfs medicines. Any problems you or family members [...] provider tells you to take them. ?Taking ocnz-ytb-qbnchuw medicines, vitamins, herbs, and supplements. Follow your [...] provider. Document Revised: 09/08/2021 Document Reviewed: 09/08/2021 [employer] Patient Education 2022 [employer] 07/31/2023 09:05:54 Transurethral Resection of the Prostate [...] including vitamins, herbs, eye drops, creams, and ehwt-qee-wlznoon medicines. Any problems you or family members [...] provider tells you to take them. Taking skxv-jkv-pzqowmj medicines, vitamins, herbs, and supplements. Surgery safety [...] provider. Document Revised: 03/08/2022 Document Reviewed: 03/08/2022 [employer] Patient Education 2022 [employer]. 07/31/2023 09:05:54 [facility] - Cystoscopy Discharge Instructions [...] Up Care 06/30/2023 10:04:12 With:Meghan Brito Address: [facility] [address] [phone] Business (1) When: Unknown Comments:Office to schedule follow up in 3-4 months or call sooner for procedure (pt knows will be done by partner/referred out if during leave) [facility]02-05-2024 Note [id number] [facility] 07-31-2023 NoteCystoscopy ? Voiding after the [...] including vitamins, herbs, eye drops, creams, and tnvk-uhv-jssuenj medicines. ? Any problems you or family [...] tells you to take them. ? Taking kskm-yvg-ncsvlbe medicines, vitamins, herbs, and supplements. ? Follow [...] at least 4 week (more content not included)...[facility]12-28-2023 Evaluation note* Encounter Date Diagnosis Assessment Notes Treatment Notes Treatment Clinical Notes May, Simple chronic bronchitis (ICD-10 - J41.0) [facility] Other [id number] Evaluation note* Encounter Date Diagnosis Assessment Notes Treatment Notes Treatment Clinical Notes May, Simple chronic bronchitis (ICD-10 - J41.0) [facility] Other 12-26-2023 Evaluation note* Encounter Date Diagnosis Assessment Notes Treatment Notes Treatment Clinical Notes May, Simple chronic bronchitis (ICD-10 - J41.0) [facility] Other 12-22-2023 Hospital Discharge instructions Patient Education [...] treatment? Where to find more information [employer] [employer]: www.cancer.org [employer]: www.auanet.org Contact a health care [...] provider. Document Revised: 12/06/2021 Document Reviewed: 12/06/2021 [employer] Patient Education 2022 [employer]. Follow Up Care 06/16/2023 08:30:52 With:Meghan Brito MD, URL, URO Address: [address] [place] [phone] When: Unknown Comments:6 mos w/ CT and PSA [facility] 12-20-2023 Hospital Discharge instructions Follow Up Care 06/14/2023 08:28:10 With:Meghan Brito MD, URL, URO Address: When: Unknown [facility] 12-12-2023 Hospital Discharge instructions Patient Education 06/06/2023 16:52:41 EU - Transrectal Ultrasound of the Prostate with US guided biopsy Discharge Instructions (CUSTOM) Transperineal?Biopsy of the Prostate Discharge Instructions After the procedure, it is common to have: Pain and discomfort near your rectum, especially while sitting. [place]-colored urine due to small amounts of blood [...] Brito Address:Unknown When: Unknown Comments:Keep scheduled appointment [facility]12-12-2023 Evaluation + Plan noteExtracted from: Title:EU -transperineal prostate biopsy Author:Meghan Melgoza MD Date:06/06/23 Impression and Plan Diagnosis Elevated PSA (OEX15-CU R97.20, Discharge, Medical). Diagnosis Elevated PSA (QBG91-YU R97.20, Discharge, Medical). Future Appointments Appointment Date:06/14/2023 10:30:00 AM Scheduled Provider:Meghan Brito MD Location:[facility] Appointment Type:URO [facility] [facility] Note [id number] Discharge instructions Follow Up Care 05/10/2023 11:27:04 With:Meghan Brito MD, URL, URO Address: [facility] [place] [phone] When: Unknown [facility] 11-15-2023 Hospital Discharge instructions Patient Education [...] treatment? Where to find more information [employer] [place] [employer]: www.cancer.org [employer]: www.auanet.org Contact a health care [...] provider. Document Revised: 12/06/2021 Document Reviewed: 12/06/2021 [employer] Patient Education 2022 [employer]. 05/10/2023 11:11:23 Benign Prostatic Hyperplasia Benign Prostatic [...] urethra. Follow these instructions at home: Take ivtr-eqr-zmydhfj and prescription medicines only as told by [...] provider. Document Revised: 12/29/2021 Document Reviewed: 12/29/2021 [employer] Patient Education 2022 [employer]. Follow Up Care 04/12/2023 09:16:25 With:Daryl HAMILTON, Meghan Tucker URDedrick, URO Address: When: Unknown Comments:Sched Transperineal Bx of Prostate [facility] [employer] 11-02-2023 Evaluation note* Encounter Date Diagnosis Assessment Notes Treatment Notes Treatment Clinical Notes Apr, Primary hypertension (ICD-10 - I10) [facility] Other 10-17-2023 Hospital Discharge instructions Patient Education [...] treatment? Where to find more information [employer] [place] [employer]: www.cancer.org [employer]: www.auanet.org Contact a health care [...] provider. Document Revised: 12/06/2021 Document Reviewed: 12/06/2021 [employer] Patient Education 2022 [employer]. Follow Up Care 03/16/2023 16:12:09 With:LONNIE ELLIOTT, THERESA Merida, URL Address: [address] [facility] [place] [address] [phone] When: Unknown Comments:f/u with MD in 1 month w/ PSA and Select MDX [facility] 10-10-2023 Evaluation note* Encounter Date Diagnosis Assessment Notes Treatment Notes Treatment Clinical Notes Mar, Primary hypertension (ICD-10 - I10) [facility] Other 06-27-2023 Hospital Discharge instructions Patient Education [...] treatment? Where to find more information The [place]: www.cancer.org [employer]: www.auanet.org Contact a health care [...] provider. Document Revised: 12/06/2021 Document Reviewed: 12/06/2021 [employer] Patient Education 2022 [employer]. Follow Up Care 10/03/2022 14:27:57 With:LONNIE ELLIOTT, THERESA Merida, URL Address: [address] [place] [address] When: Unknown Comments:Sched Select MDX and MRI of Prostate. [facility] [employer] 06-20-2023 Evaluation note* Encounter Date Diagnosis Assessment Notes Treatment Notes Treatment Clinical Notes Nov, Cigarette nicotine dependence in remission (ICD-10 - F17.211) Started at age 19, quit age 66, 1ppd. LDCT w/o nodules - 11/2022 [facility] Other 06-19-2023 Evaluation note* Encounter Date Diagnosis Assessment Notes Treatment Notes Treatment Clinical Notes Nov, Simple chronic bronchitis (ICD-10 - J41.0) Nov, Cigarette nicotine dependence in remission (ICD-10 - F17.211) Started at age 19, quit age 66, 1ppd. LDCT w/o nodules - 11/2022 [facility] Other 05-31-2023 Evaluation note* Encounter Date Diagnosis [...] Z12.5) Yearly MARIZA and PSA, f/u Urology [facility] Other 03-08-2023 Evaluation note* Encounter Date Diagnosis [...] in remission (ICD-10 - F17.211) Continue abstinence [facility] Other 05-03-2022 Hospital Discharge instructions Patient Education [...] urethra. Follow these instructions at home: Take jpay-ydy-eehgoug and prescription medicines only as told by [...] 06/12/2006 Document Revised: 05/07/2019 Document Reviewed: 07/17/2017 Xention Patient Education 2019 [employer]. Follow Up Care 10/22/2020 09:07:58 With:Erlin Alonso MD, Daniel Tse URO Address: [facility] [address], [place] [address] When:10/26/2022 Comments:with PSA [facility] 02-12-2022 Evaluation note* Encounter Date Diagnosis [...] Patient care instructions given in writting by [facility] Care At Home document [facility] Other 11-29-2021 Evaluation note* Encounter Date Diagnosis Assessment Notes Treatment Notes Treatment Clinical Notes Apr, Contact with and (suspected) exposure to other viral communicable diseases (ICD-10 - Z20.828) Apr, COVID-19 (ICD-10 - U07.1) Today you tested positive for the COVID virus. This mean you need to follow all CDC quarantine guidelines found at coronavirus.[place].go v. It is important to rest, increase [...] Patient care instructions given in writting by [facility] Care At Home document. [facility] Other Evaluation + Plan note Future Appointments Appointment Date:11/01/2022 08:15:00 AM Scheduled Provider:Daniel Kern Jr., MD Location:[facility] Appointment Type:URO Office Visit Diagnostic Tests Pending * PSA Total 10/26/21 [facility] evaluation + Plan note Future Appointments Appointment Date:04/28/2023 08:15:00 AM Scheduled Provider:Meghan Brito MD Location:[facility] Appointment Type:URO Office Visit Diagnostic Tests Pending * PSA Total 04/11/23 [facility] evaluation + Plan note Future Appointments Appointment Date:06/06/2023 02:30:00 PM Scheduled Provider: Location:[facility] Appointment Type:Surgery FT Appointment Date:06/14/2023 10:30:00 AM Scheduled Provider:Meghan Brito MD Location:[facility] Appointment Type:URO Office Visit [facility] evaluation + Plan note Future Appointments Appointment Date:06/15/2023 03:30:00 PM Scheduled Provider:Meghan Brito MD Location:[facility] Appointment Type:URO Office Visit [facility] evaluation + Plan note Future Appointments Appointment Date:06/21/2023 08:45:00 AM Scheduled Provider:Meghan Brito MD Location:[facility] Appointment Type:URO Office Visit [facility] Evaluation + Plan note Future Appointments Appointment Date:06/30/2023 09:15:00 AM Scheduled Provider: Location:[facility] Appointment Type:URO Nurse Visit Diagnostic Tests Pending * PSA Free & Total 06/16/23 [facility] Evaluation + Plan note Future Appointments Appointment Date:06/30/2023 09:15:00 AM Scheduled Provider: Location:[facility] Appointment Type:URO Nurse Visit [facility] evaluation + Plan note Future Appointments Appointment Date:07/31/2023 08:30:00 AM Scheduled Provider: Location:[facility] Surgical [facility] Appointment Type:Urology FT [facility] Evaluation + Plan note Future Appointments Appointment Date:07/31/2023 08:30:00 AM Scheduled Provider: Location:[facility] Appointment Type:Urology FT Diagnostic Tests Pending * Urine Cytology ([facility]) [facility] Appointment Date:12/25/2023 07:30:00 AM Scheduled Provider: Location:[facility] Appointment Type:Surgical PAT FT Appointment Date:01/02/2024 08:00:00 AM Scheduled Provider: Location:[facility] Appointment Type:Surgery FT [facility] evaluation + Plan note Future Appointments Appointment Date:01/02/2024 08:00:00 AM Scheduled Provider: Location:[facility] Appointment Type:Surgery FT Appointment Date:01/12/2024 08:15:00 AM Scheduled Provider:Meghan Brito MD Location:[facility] [place] App[facility]ment [facility]URO [facility] App[facility]ments Appointment Date:10/03/2024 08:00:00 AM Scheduled Provider:Meghan Brito MD Location:[facility] [place] Appointment Type:URO Office Visit [facility] [place] Evaluation noteNo assessment information available [facility] Work Phone: Evaluation noteNo InformationNortGrand [facility] Other Evaluation note* Diagnosis Onset Date Resolution Status Anemia acute Benign prostatic hyperplasia with lower urinary tract symptoms acute Chronic bronchitis acute Chronic kidney disease acute Elevated PSA acute Hypercholesterolemia acute Hypertension acute Nicotine addiction acute Screening PSA (prostate specific antigen) acute Welcome to Medicare preventive visit noneactive [facility] Work Phone: Evaluation note* Diagnosis Onset Date Resolution Status Acute gout acute Benign prostatic hyperplasia with lower urinary tract symptoms acute Hypertension acute [facility] Work Phone: History general Narrative - Reported* Type Description Date Medical History high blood pressure Medical History high cholesterol [facility] Other [place] general Narrative - Reported* Type Description Date [...] LEFT HERNIA 1989 Hospitalization History SEE SURGICAL [facility] Other [facility]i general Narrative - Reported* Type Description Date [...] HERNIA 1989 Hospitalization History SEE SURGICAL HX [facility] Other Hospital course Narrative No data available for this section [facility] Hospital Discharge instructions No data available for this section [facility] No data available for this section [facility] Nas Summary Purpose Family History Relationship Condition [...] mother History of stroke Unknown Advance Directives Advance [...] hyperplasia with lower urinary tract symptoms Hypertension Chief Complaint Rt foot swelling toe , and heel pain Unknown Reason for Visit Acute gout Benign prostatic [...] section and content) DATE CREATED AUTHOR 11/08/2022 [facility] DATE CREATED AUTHOR AUTHOR'S ORGANIZ ATION 06/17/2023 [facility] DATE CREATED AUTHOR AUTHOR'S ORGANIZ ATION [facility] DATE CREATED AUTHOR AUTHOR'S ORGANIZ ATION 12/26/2023 [facility] DATE CREATED AUTHOR AUTHOR'S ORGANIZ ATION 03/08/2024 [facility] DATE CREATED AUTHOR AUTHOR'S ORGANIZ ATION 03/17/2024 [facility] DATE CREATED AUTHOR AUTHOR'S ORGANIZ ATION 03/31/2024 [facility] Patient Care team informatio n (unrecognized section and content) Personnel Name: GIO CAVANAUGH DO Address: Address: [address], [place], [place] [address] Team Status: Active Member Role Status Dates Gio Cavanaugh DO Primary Care Provider Active Team Status: Active Member Role Status Dates Gio Cavanaugh DO Primary Care Provide r, Attending Provider Active Start: November 24, 2023 Team Status: Inactive Member Role Status Dates Gio Cavanaugh DO Primary Care Provide r, Attending Provider Active Start: November 28, 2023 End: November 28, 2023 Team Status: Inactive Member Role Status Dates Gio Cavanaugh DO Primary Care Provider Active Theresa Fleming PA-C Attending Provider Active Team Status: Active Member Role Status Dates Gio Cavanaugh DO Primary Care Provider Active Start: February 22, 2024 Meghan Brito MD Attending Provider Active Start : February 22, 2024 Team Status: Inactive Member Role Status Dates Gio Cavanaugh DO Primary Care Provide r, Attending Provider Active Start: February 29, 2024 End: February 29, 2024 Team Status: Active Member Role Status Dates Gio Cavanaugh DO Primary Care Provide r, Attending Provider Active Start: March 05, 2024 Team Status: Inactive Member Role Status Dates Gio Cavanaugh DO Primary Care Provider Active Start: March 06, 2024 End: March 06, 2024 Meghan Birto MD Attending Provider Active Start : March 06, 2024 End: March 06, 2024 Team Status: Active Member Role Status Dates Gio Cavanaugh DO Primary Care Provider Active Start: March 06, 2024 Meghan Brito MD Attending Provider Active Start : March 06, 2024 Goals (unrecognized section and content) Goals [...] BE BASED ON THE PRIMARY CLINICAL RECORDS. [facility]. provides no warranty or guarantee of the accuracy or completeness of information in this document.
== END 2024-06-21 09:03 | disposition home or self-care (01) ==
LOC: CT 09:02
PROVIDERS: PCP Internal Medicine; Visit Provider Internal Medicine
DX: Z87.891 Personal history of nicotine dependence (principal)
CPT/HCPCS: 71271

== ENCOUNTER 2024-09-12 07:43 | Outpatient (OUT) | payer MEDICARE, SELFPAY ==
--- OUTSIDE RECORDS SUMMARY | 2024-09-12 07:59 | XMS_ITS | CCD ---
Author Organization [facility] [employer] Care Team Providers Care Case Consultant Name Role Phone GIO CAVANAUGH Primary Care [...] Unavailable Mao, DO Powers Primary Care Provider [phone] EARL Fleming Attending Provider ERIKA HAMILTON, DUY Tse Attending Unavailable LueMeghan Attending Unavailable Lue Meghan MReinier Referring Unavailable Lue, [...] Unavailable Lue, Meghan M. Attending Unavailable Lue, Mehgan M. Attending Unavailable Lue, Meghan M. Attending Unavailable Lue, Meghan M. Attending Unavailable Lue, Meghan M. Attending Unavailable Lue, Meghan M. Attending Unavailable LONNIE, THERESA E Attending Unavailable Lue, Meghan M. Attending Unavailable DO Gio Cavanaugh Primary Care Provider [phone] MD Meghan Brito Attending Provider [phone] Gio Cavanaugh Primary Care Unavailable Lue, Meghan M Admitting Unavailable Lue, Meghan M Attending Unavailable Lonnie, Theresa E Attending Unavailable Lonnie, Theresa E Admitting Unavailable Gio Cavanaugh Primary Care Unavailable Lue, Meghan M. Attending Unavailable Lue, Meghan M. Admitting Unavailable Lue, Meghan M. Referring Unavailable Lue, Meghan M. Attending Unavailable Lue, Meghan M. Attending Unavailable Lue, Meghan M. Referring Unavailable Lue, Meghan M. Attending Unavailable Lue, Meghan M. Attending Unavailable GOVIND BHARDWAJAR Attending Unavailable KAR, SAMAR Attending Unavailable KAR, SAMAR Attending Unavailable Allergies Allergy Classification Reported Allergen(s) Allergy Type Date of Onset Reaction(s) Facility (20 sources) Cephalexin; Translations: [cephalexin] Drug Allergy 04-06-20 20 Unknown (qualifier value), Dyspnea (finding) [employer] Other (20 sources) Penicillins; Translations: [penicillins] Drug allergy 08-07-19 16 Unknown (qualifier value), Dyspnea (finding) [facility] (2 sources) Penicillin V Drug Allergy rash/cough [facility] [employer] Other (13 sources) Cephalexin; Translations: [Keflex] Drug Allergy 08-07-19 16 rash/cough [facility] (11 sources) Penicillin Drug Allergy rash/cough [employer] Other (7 sources) Keflex *CEPHALOSPORINS* Propensity to adverse reactions 02-29-20 Unknown [employer] Other (2 sources) Penicillin G Benzathine & Proc Drug allergy 02-29-20 Unknown [employer] Other (2 sources) patient allergy list reviewed by nurse or physicia Propensity to adverse reactions 03-02-20 Comment:Done [employer] Other (4 sources) Cephalosporins (Antibiotic); Translations: [Cephalosporins] Allergy to substance 11-28-19 Unknown Reaction [facility] (1 source) Cephalexin Drug Allergy 02-29-20 [facility] Repository Medications Current Medications Medication Drug [...] Daily, # 90 tab(s), Refills(s) 3, Pharmacy: [facility], 180, cm, 06/16/23 9:50:00 EST, Height/Length Dosing, 108.2, kg, 06/16/23 9:50:00 EST, Weight Dosing Start Date: 07/28/23 Status: Ordered Start: 01-30-2023 take 1 tablet by chris once daily alfuzosin 10 mg ER Tab 10 mg = 1 tab(s), Oral, Daily, # 30 tab(s), Refills(s) 5, Pharmacy: [facility], 180, cm, 12/20/22 10:13:00 EDT, Height/Length Dosing, 102.5, kg, 12/20/22 10:13:00 EDT, Weight Dosing Start Date: 01/30/23 Status: Ordered Start: 07-14-2022 take 1 tablet by chris once daily alfuzosin 10 mg ER Tab 10 mg = 1 tab(s), Oral, Daily, # 30 tab(s), Refills(s) 5, Pharmacy: [id number], 180, cm, 10/26/21 9:12:00 EDT, Height/Length Dosing, 95.2, kg, 10/26/21 9:12:00 EDT, Weight Dosing Start Date: 07/14/22 Status: Ordered Start: 07-08-2021 take 1 tablet by chris once daily alfuzosin 10 mg ER Tab 10 mg = 1 tab(s), Oral, Daily, # 30 tab(s), Refills(s) 11, Pharmacy: [id number], 180, cm, 07/08/21 15:57:00 EST, Height/Length [...] day(s), # 2 tab(s), Refills(s) 0, Pharmacy: [facility], 180, cm, 05/10/23 10:56:00 EST, Height/Length Dosing, 102, kg, 05/10/23 10:56:00 EST, Weight Dosing Start Date: 05/10/23 Stop Date: 05/11/23 Status: Ordered diazePAM 10 mg oral tablet (4 sources) Benzodiazepine Start: 05-10-2023 Valium 10 mg Tab 10 mg = 1 tab(s), Oral, Once, take 30 minutes prior to procedure, # 1 tab(s), Refills(s) 0, Pharmacy: [facility], 180, cm, 05/10/23 10:56:00 EST, Height/Length [...] at 11pm Orally BID for 1 days BIN:[id number] PCN: CNRX GROUP:[id number] ID:[id number] October, Not-Taking/PRN Start: 11-17-2020 Plenvu 140 GM dose 1 pouch at 4pm, dose 2 pouch A & B at 11pm Orally BID for 1 days BIN:[id number] PCN: [employer]NR[employer] GROUP:[id number] ID:[id number] October, Not-Taking Start: 11-17-2020 Plenvu 140 GM dose 1 pouch at 4pm, dose 2 pouch A & B at 11pm Orally BID for 1 days BIN:[id number]: CNRXGROUP:[id number] October, Not-Taking Start: 11-17-2020 Plenvu 140 GM dose 1 pouch at 4pm, dose 2 pouch A & B at 11pm Orally BID for 1 days BIN:[id number]: CNRXGROUP:[id number] October, Active methylPREDNISolone 4 mg oral tablet [...] [Gout, unspecified] 02-29-2024 Chronic Heart valve disorders (6 sources) Aortic valve disorder; Translations: [Other nonrheumatic aortic valve disorders] Onset: 01-03-2024 Chronic Hyperplasia of prostate (20 sources) Benign prostatic hypertrophy with outflow obstruction; Translations: [Benign prostatic hyperplasia with lower urinary tract symptoms] Onset: 03-01-2018 Chronic Hypertension with complications and secondary hypertension (2 sources) Hypertensive heart disease without heart failure; Translations: [Hypertensive heart disease without heart failure] Onset: 09-04-2024 Chronic Immunizations and screening for infectious disease (4 sources) Contact with and (suspected) exposure to other viral communicable diseases; Translations: [Vaccination given] Onset: 05-24-2021 Resolved: 08-07-2021 Episodic Inflammatory conditions of male genital organs (18 sources) Chronic prostatitis; Translations: [Chronic prostatitis] Onset: 07-31-2023 04-23-2020 Chronic Lymphadenitis (7 sources) Lymphadenopathy; Translations: [Enlarged lymph nodes, unspecified] Onset: 11-29-2023 Episodic Osteoarthritis (17 sources) Arthritis 01-29-2019 Chronic Other aftercare (1 source) 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; Translations: [OTH PSYCHOLOGICAL OPERATIONS OFFICER CURRENT DRUG THERAPY] Onset: 08-30-2022 Episodic Other aftercare (2 sources) Long-term current use of drug therapy; Translations: [Other penitentiary (current) drug therapy] Episodic Other and unspecified [...] serum enzymes Episodic Other male genital disorders (13 sources) [...] (2 sources) Overweight; Translations: [Overweight] Episodic Other upper respiratory infections (2 sources) [...] [ACUTE RESP FAIL W/HYPERCAPNIA] Onset: 08-30-2022 Episodic Substance-related disorders (20 sources) [...] [Other malaise and fatigue] Onset: 10-31-2018 Episodic Nonspecific chest pain (2 sources) Precordial pain; Translations: [Precordial pain] Onset: 01-03-2024 Episodic Other connective tissue disease (2 sources) Plantar fascial fibromatosis; Translations: [Plantar fascial fibromatosis] Onset: 06-11-2018 Episodic Other lower respiratory disease (2 sources) Other forms of dyspnea; Translations: [Other forms of dyspnea] Onset: 01-03-2024 Episodic Other screening for suspected conditions (not mental disorders or infectious disease) (20 sources) Raised prostate specific antigen; Translations: [Elevated prostate specific antigen [PSA]] Onset: 10-26-2021 Resolved: 11-01-2021 Episodic Residual codes; unclassified (2 sources) Tobacco user; Translations: [Tobacco use] Resolved: 11-18-2021 Episodic Screening and history of mental health and substance abuse codes (16 sources) Personal history of nicotine dependence; Translations: [H/O: Disorder] Onset: 08-30-2022 Episodic Unclassified (2 sources) Exposure to acute respiratory syndrome coronavirus 2; Translations: [Contact with and (suspected) exposure to COVID-19] Resolved: 11-01-2021 Viral infection (1 source) COVID-19 Onset: 05-24-2021 Resolved: 05-24-2021 Results Test Name Value Interpretation Reference Range Facility Office Visiton 09-04-2024 Follow-up visit [id number] Michael Killian 1955 M Date Provider Department Center 09/04/2024 [id number] BHARDWAJ [facility] Family History Problem Relation Age of Onset Diabetes Mother Heart attack Father Family Status - Relation Status Age at Mother Father Level of Service:30270 [place] OFFICE/OUTPATIENT ESTABLISHED MOD MDM 30 MIN Reason for Visit and Comments: 6 month follow up [Other] Heart Murmur [124] Hyperlipidemia [182] Hypertension [287679] Normal [facility] Ambulatory Visit Summaryon 1 Ambulatory Visit Summary [...] Meghan Brito MD Where: [facility] [address] [place] [address]- You Need to Schedule the Following Appointments Follow Up with Daryl HAMILTON, Meghan Tucker, URL, URO When: Comments: 6 mos Where: [address] [place] [address] [phone] Medications What How Much When Why Instructions [...] any denice (more content not included)... Normal [facility] Urology Office/Clinic Noteon 03-29-2024 Urology Office/Clinic [...] unspecified) Prost (more content not included)... Normal [facility] Comment on above: Result Comment: Elec tronically Signed By: Daryl HAMILTON, Meghan Tucker\.br\Date and Time Signed: 03/29/24 09:47 EDT\.br\Electronically Co-Signed [...] medication increase. New RX sent to pharmacy. [facility] [place] 03-06-2024 L Specimen: [id number] Received: 03/07/24 Status: VIJAY Pulido Num: [id number] Spec Type: Surgical Subm Dr: Meghan Brito MD Tissues: A Prostate - Except Radical Resection, Tur, or Needle Biopsy (PROSTATE TISSUE) Procedures: HE/20, Gross/Micro L5 Age/ Patient Sex Location Account Attending Physician Michael Killian 68/M LABELL [id number] Meghan Brito MD SPEC NUM: [id number] RECD: 03/07/24 STATUS: [facility] NUM: [id number] FANNIE: 03/06/[address]: Meghan Brito MD ENTERED: 03/07/[address]: Madeline Lovell SPEC TYPE: Surgical DEPT: BERRY ARGUELLES ENTERED BY: [id number] RECV BY: [id number] ORDERED: HE/20, Gross/Micro L5 ORDERED: , Gross/Micro L5 Pathological Diagnosis Prostate tissue, TURP: [...] cm in aggregate, and weighing 35.4 g. Hand Stoner sections are submitted in cassettes A1- A20 DM Specimen: [id number] Received: 03/07/24 Status: VIJAY Pulido Num: [id number] Spec Type: Surgical Subm Dr: Meghan Brito MD Tissues: A Prostate - Except Radical Resection, Tur, or Needle Biopsy (PROSTATE TISSUE) Procedures: , Gross/Micro L5 Patient: Michael Killian [id number] (Continued) Specimen: [id number] Received: 03/07/24 (Continued) Signed (signature on file) Saad James MD 03/14/24 1541 Specimen: [id number] Received: 03/07/24 Status: VIJAY Pulido Num: [id number] Spec Type: Surgical Subm Dr: Meghan Brito MD Tissues: A Prostate - Except Radical Resection, Tur, or Needle Biopsy (PROSTATE TISSUE) Procedures: /20, Gross/Micro L5 Patient: Michael Killian [id number] (Continued) Specimen: [id number] Received: 03/07/24 (Continued) Microscopic Description Microscopic examinations are performed supporting the above interpretation CPT Codes 16440 Specimen: [id number] Received: 03/07/24 Status: VIJAY [place] Num: [id number] Spec Type: Surgical Subm Dr: Meghan Brito MD Tissues: A Prostate - Except Radical Resection, Tur, or Needle Biopsy (PROSTATE TISSUE) Procedures: PAUL/Neha, Gross/Micro L5 Patient: Michael Killian [id number] (Continued) Signed (signature on file) Saad James MD 03/14/24 1541 Normal [facility] Laboratory - Chemistry and C hemistry - challengeon 03-06-2024 Chloride [Moles/Vol] 104 mmol/L 98-107 [facility] CO2 [Moles/Vol] 32.5 mmol/L High 21.0-32.0 [facility] Potassium [Moles/Vol] 4.5 mmol/L 3.5-5.1 [facility] Sodium [Moles/Vol] 136 mmol/L 136-145 [facility] Serum or plasma anion gap de terminationon 03-06-2024 Anion gap [Moles/Vol] 4.0 mmol/L [facility] Basophils Auto (Bld) [#/Vol] on 03-05-2024 Basophils (Bld) [#/Vol] 0.0 10 3/uL 0.0-0.1 [facility] Basophils/100 WBC Auto (Bld) on 03-05-2024 Basophils/100 WBC (Bld) 0.4 % 0.2-2.0 [facility] Eosinophils/100 WBC Auto (Bl d)on 03-05-2024 Eosinophils/100 WBC (Bld) 0.7 % Low 0.9-7.0 [facility] Erythrocyte distribution wid th Auto (RBC) [Ratio]on 03-05-2024 Erythrocyte distribution width (RBC) [Ratio] 12.9 % 11.0-15.0 [facility] Hematocrit Auto (Bld) [Volum e fraction]on 03-05-2024 Hematocrit (Bld) [Volume fraction] 40.6 % Low 42.0-54.0 [facility] Hemoglobin [Mass/volume] in Bloodon 03-05-2024 Hemoglobin (Bld) [Mass/Vol] 13.8 g/dL Low 14.0-18.0 [facility] Iron binding capacity [Mass/ volume] in Serum or Plasmaon 03-05-2024 Iron binding capacity [Mass/Vol] 318.0 ug/dL 250.0-450.0 [facility] Iron saturation [Mass Fracti on] in Serum or Plasmaon 03-05-2024 Iron saturation [Mass fraction] 24.5 % [facility] Laboratory - Chemistry and C hemistry - challengeon 03-05-2024 Cobalamin (Vitamin B12) [Mass/Vol] 477 pg/mL 232-1245 [facility] Comment on above: Performed at: [facility] [place], [place] [id number] Director: Alexi Mobley PhD, Phone: [phone] Ferritin [Mass/Vol] 270.0 ng/mL 26.0-388.0 [facility] Iron [Mass/Vol] 78.0 ug/dL 65.0-175.0 [facility] Laboratory - Hematology and Cell countson 03-05-2024 Immature granulocytes/100 WBC (Bld) 0.7 % High 0.0-0.5 [facility] Leukocytes [#/volume] correc rina for nucleated erythrocytes in Blood by Automated counon 03-05-2024 WBC corrected for nucl RBC Auto (Bld) [#/Vol] 7.4 10 3/uL 4.0-11.0 [facility] Lymphocytes Auto (Bld) [#/Vo l]on 03-05-2024 Lymphocytes (Bld) [#/Vol] 1.3 10 3/uL 1.2-3.8 [facility] Lymphocytes/100 WBC Auto (Bl d)on 03-05-2024 Lymphocytes/100 WBC (Bld) 17.5 % Low 20.5-60.0 [facility] MCH Auto (RBC) [Entitic mass ]on 03-05-2024 MCH (RBC) [Entitic mass] 29.9 pg 25.9-34.0 [facility] MCHC Auto (RBC) [Mass/Vol]on 03-05-2024 MCHC (RBC) [Mass/Vol] 34.0 g/dL 29.9-35.2 [facility] MCV Auto (RBC) [Entitic vol] on 03-05-2024 MCV (RBC) [Entitic vol] 88.1 fL 80.0-94.0 [facility] Monocytes Auto (Bld) [#/Vol] on 03-05-2024 Monocytes (Bld) [#/Vol] 0.4 10 3/uL 0.3-0.8 [facility] Monocytes/100 WBC Auto (Bld) on 03-05-2024 Monocytes/100 WBC (Bld) 6.0 % 1.7-12.0 [facility] Neutrophils Auto (Bld) [#/Vo l]on 03-05-2024 Neutrophils (Bld) [#/Vol] 5.5 10 3/uL 1.4-6.5 [facility] Neutrophils/100 WBC Auto (Bl d)on 03-05-2024 Neutrophils/100 WBC (Bld) 74.7 % 43.0-75.0 [facility] No Panel Informationon 03-05 Eosinophils # (Auto) 0.1 10 3/uL 0.0-0.7 [facility] Folate 7.60 ng/mL Low 8.60-58.90 [facility] Immature Granulocyte # (Auto) 0.05 10 3/uL High 0.00-0.03 [facility] Platelet mean volume Auto (B ld) [Entitic vol]on 03-05-2024 Platelet mean volume (Bld) [Entitic vol] 10.0 fL 9.5-13.5 [facility] Platelets Auto (Bld) [#/Vol] on 03-05-2024 Platelets (Bld) [#/Vol] 193 10 3/uL 150-450 [facility] RBC Auto (Bld) [#/Vol]on RBC (Bld) [#/Vol] 4.61 10 6/uL Low 4.70-6.10 [facility] Estimated glomerular filtrat ion rate (GFR) non- Americanon 02-22-2024 GFR/1.73 sq M.predicted among non-blacks MDRD (S/P/Bld) [Vol rate/Area] mL/min/{1.73_m2} >=60 [facility] Laboratory - Chemistry and C hemistry - challengeon 02-22-2024 Calcium [Mass/Vol] 9.0 mg/dL 8.5-10.1 [facility] Chloride [Moles/Vol] 104 mmol/L 98-107 [facility] CO2 [Moles/Vol] 27.5 mmol/L 21.0-32.0 [facility] Creatinine [Mass/Vol] 1.07 mg/dL 0.70-1.30 [facility] GFR/1.73 sq M.predicted MDRD (S/P/Bld) [Vol rate/Area] mL/min/{1.73_m2} >=60 [facility] Glucose [Mass/Vol] 114 mg/dL High 74-106 [facility] Potassium [Moles/Vol] 4.2 mmol/L 3.5-5.1 [facility] Sodium [Moles/Vol] 139 mmol/L 136-145 [facility] Urea nitrogen [Mass/Vol] 16.0 mg/dL 7.0-18.0 [facility] Urea nitrogen/Creatinine [Mass ratio] 15.0 mg/mg [facility] Serum or plasma anion gap de termination02-22-2024 Anion gap [Moles/Vol] 11.7 mmol/L [facility] 36on 02-12-[address] Bhardwaj: MD [...] in clinic this morning. Normal [facility] Office Visiton 02-12-2024 Follow-up visit [id number] Michael Killian 1955 M Date Provider Department Center 02/12/2024 GLENNA RAMIREZ Family History Problem Relation Age of Onset Diabetes Mother Heart attack Father Family Status - Relation Status Age at Mother Father Level of Service:58504 [place] OFFICE/OUTPATIENT ESTABLISHED MOD MDM 30 MIN Normal [facility] 36on 01-30-2024 36 Patient had stress test last month for surgery clearance. 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 Can you please review? Thanks! Normal [facility] Office Visiton 01-03-2024 Follow-up visit [id number] Michael Killian 1955 M Date Provider Department Center 01/03/2024 GLENNA RAMIREZ Family History Problem Relation Age of Onset Diabetes Mother Heart attack Father Family Status - Relation Status Age at Mother Father Level of Service:10316 [place] OFFICE/OUTPATIENT NEW MODERATE MDM 45 MINUTES Normal [facility] BMPon 12-25-2023 Anion gap [Moles/Vol] 9 mmol/L Normal 6-16 [facility] Comment on above: Performed By: #### 2 [id number] #### [facility] [address] [place] [address] Calcium [Mass/Vol] 9.4 mg/dL Normal 8.9-11.1 [facility] Comment on above: Performed By: #### 2 [id number] #### [facility] [address] [place] [address] Chloride [Moles/Vol] 104 mmol/L Normal 101-111 [facility] Comment on above: Performed By: #### 2 [id number] #### [facility] [address] [place] [address] CO2 [Moles/Vol] 30 mmol/L Normal 21-31 [facility] Comment on above: Performed By: #### 2 [id number] #### [facility] [address] [place] [address] Creatinine [Mass/Vol] 1.3 mg/dL Normal 0.5-1.3 [facility] Comment on above: Performed By: #### 2 [id number] #### [facility] [address] [place] [address] Glucose [Mass/Vol] 113 mg/dL Normal 55-199 [facility] Comment on above: Performed By: #### 2 [id number] #### [facility] [address] [place] [address] Potassium [Moles/Vol] 4.3 mmol/L Normal 3.5-5.3 [facility] Comment on above: Performed By: #### 2 [id number] #### [facility] [address] [place] [address] Sodium [Moles/Vol] 139 mmol/L Normal 135-145 [facility] Comment on above: Performed By: #### 2 [id number] #### [facility] [address] [place] [address] Urea nitrogen [Mass/Vol] 21 mg/dL Normal 5-21 [facility] Comment on above: Performed By: #### 2 [id number] #### [facility] [address] [place] [address] Urea nitrogen/Creatinine [Mass ratio] 16 No Units Normal 10-20 [facility] Comment on above: Performed By: #### 2 [id number] #### [facility] [address] [place] [address] CBC w/ Auto Diffon 4 Basophils/100 WBC (Bld) 2.0 % Normal 0.0-2.0 [facility] Comment on above: Performed By: #### 2 537175 #### [facility] [address] [place] [address] Basophils/Leukocytes Auto (Bld) [Pure # fraction] 0.1 E9/L Normal 0.0-0.2 [facility] Comment on above: Performed By: #### 2 [id number] #### [facility] [address] [place] [address] Eosinophils (Bld) [#/Vol] 0.3 E9/L Normal 0.0-0.5 [facility] Comment on above: Performed By: #### 2 346645 #### [facility] [address] [place] [address] Eosinophils/100 WBC (Bld) 4.8 % Normal 0.0-8.0 [facility] Comment on above: Performed By: #### 2 [id number] #### [facility] [address] [place] [address] Erythrocyte distribution width (RBC) [Ratio] 14.1 % Normal 10.9-14.2 [facility] Comment on above: Performed By: #### 2 [id number] #### [facility] [address] [place] [address] Hematocrit (Bld) [Volume fraction] 38.5 % Normal 37.7-49.0 [facility] Comment on above: Performed By: #### 2 728008 #### [facility] [address] [place] [address] Hemoglobin (Bld) [Mass/Vol] 13.7 g/dL Normal 13.5-17.5 [facility] Comment on above: Performed By: #### 2 [id number] #### [facility] [address] [place] [address] Lymphocytes (Bld) [#/Vol] 1.6 E9/L Normal 1.0-4.0 [facility] Comment on above: Performed By: #### 2 365157 #### [facility] [address] [place] [address] Lymphocytes/100 WBC (Bld) 29.7 % Normal 14.0-50.0 [facility] Comment on above: Performed By: #### 2 687505 #### [facility] [address] [place] [address] MCH (RBC) [Entitic mass] 30.3 pg Normal 27.0-34.0 [facility] Comment on above: Performed By: #### 2 200619 #### [facility] [address] [place] [address] MCHC (RBC) [Mass/Vol] 35.5 g/dL Normal 31.4-36.0 [facility] Comment on above: Performed By: #### 2 [id number] #### [facility] [address] [place] [address] MCV (RBC) [Entitic vol] 85.3 fL Normal 80.0-100.0 [facility] Comment on above: Performed By: #### 2 922236 #### [facility] [address] [place] [address] Monocytes (Bld) [#/Vol] 0.5 E9/L Normal 0.2-1.0 [facility] Comment on above: Performed By: #### 2 672948 #### [facility] [address] [place] [address] Neutrophils (Bld) [#/Vol] 3.1 E9/L Normal 2.0-7.5 [facility] Comment on above: Performed By: #### 2 [id number] #### [facility] [address] [place] [address] Neutrophils/100 WBC (Bld) 55.2 % Normal 36.0-75.0 [facility] Comment on above: Performed By: #### 2 [id number] #### [facility] [address] [place] [address] Platelet 166.0 E9/L Normal 150.0-500.0 [facility] Comment on above: Performed By: #### 2 899101 #### [facility] [address] [place] [address] Platelet mean volume (Bld) [Entitic vol] 8.6 fL Normal 6.4-10.8 [facility] Comment on above: Performed By: #### 2 [id number] #### [facility] [address] [place] [address] RBC (Bld) [#/Vol] 4.5 E12/L Normal 4.3-5.9 [facility] Comment on above: Performed By: #### 2 885845 #### [facility] [address] [place] [address] WBC corrected for nucl RBC Auto (Bld) [#/Vol] 5.5 E9/L Normal 4.0-11.0 [facility] Comment on above: Performed By: #### 2 [id number] #### [facility] [address] [place] [address] CHEMISTRYOrdered By: SYSTEM SYSTEM on 12-25-2023 Anion [...] 35.0 s Normal 25.1 - 36.5 second(s) [facility] Comment on above: Interpretive Data: [...] the same coagulation reagent and instrumentation as [facility] Currently there are no coagulation studies available worldwide for children to 14 days, and no normal ranges. Heparin therapeutic range (represented by Anti-Factor Xa activity of 0.2 - 0.4 U/mL) corresponds to PTT of 56.6 - 109.0 sec. INR Coag (PPP) [Relative time] 1.01 {INR} Invalid Interpretation Code [facility] Comment on above: Interpretive Data: I NR results are specifically intended to assess patients stabilized on long-term Anticoagulation therapy suggested INR s Less Intensive Anticoagulation 2.0 3.0 Conventional Range 3.0 4.5 PT Coag (PPP) [Time] 11.3 s Normal 9.4 - 1 2.5 second(s) [facility] Comment on above: Interpretive Data: [...] were obtained from a study by Loi Hoopre et al. prepared from 1437 samples obtained at 7 different centers using the same coagulation reagent and instrumentation as [facility] Currently there are no coagulation studies available [...] Coag (PPP) [Time] 35.0 second(s) Normal 25.1-36.5 [facility] Comment on above: Result Comment: Para meter 15 days - 4 weeks 1 - 5 months 6 - 11 months 1 - 5 years 6 - 10 years 11 - 17 years PTT Mean: 35.4 (27.6-45.6) Mean: 33.5 (24.8-40.7) Mean: 32.4 (25.1-40.7) Mean: 31.6 (24.0-39.2) Mean: 31.6 (26.9-38.7) Mean: 31.0 (24.6-38.4) Pediatric Reference ranges were obtained from a study by oLi Hooper et al. prepared from 1437 samples obtained at 7 different centers using the same coagulation reagent and instrumentation as [facility]. Currently there are no coagulation studies available worldwide for children to 14 days, and no normal ranges. Heparin therapeutic range (represented by Anti-Factor Xa activity of 0.2 - 0.4 U/mL) corresponds to PTT of 56.6 - 109.0 sec. Performed By: #### 1 [id number] #### [facility] [address] [place] [address] INR Coag (PPP) [Relative time] 1.01 {INR} Invalid Interpretation Code [facility] Comment on above: Result Comment: INR results are specifically intended to assess patients stabilized on long-term Anticoagulation therapy suggested INR?s ?Less Intensive Anticoagulation? 2.0 ? 3.0 Conventional Range 3.0 ? 4.5 Performed By: #### 1 [id number] #### [facility] [address] [place] [address] PT Coag (PPP) [Time] 11.3 second(s) Normal 9.4-12.5 [facility] Comment on above: Result Comment: 15 [...] the same coagulation reagent and instrumentation as [facility]. Currently there are no coagulation studies available worldwide for children to 14 days, and no normal ranges. Performed By: #### 1 [id number] #### [facility] [address] [place] [address] UA with Cult Rflxon 12-25-19 24 Bilirubin Ql (U) Negative Normal Negative [facility] Comment on above: Performed By: #### 4 [id number] #### [facility] [address] [place] [address] Clarity (U) Clear Normal Clear [facility] Comment on above: Performed By: #### 4 [id number] #### [facility] [address] [place] [address] Color (U) Light-Yellow Normal Yellow [facility] Comment on above: Result Comment: Micr oscopic readings are only performed on those samples that meet specific criteria set forth by [facility]. Performed By: #### 4 [id number] #### [facility] [address] [place] [address] Glucose Ql (U) Negative Normal Negative [facility] Comment on above: Performed By: #### 4 [id number] #### [facility] [address] [place] [address] Hemoglobin Auto test strip (U) [Mass/Vol] Negative Normal Negative [facility] Comment on above: Performed By: #### 4 [id number] #### [facility] [address] [place] [address] Ketones Auto test strip Ql (U) Negative Normal Negative [facility] Comment on above: Performed By: #### 4 [id number] #### [facility] [address] [place] [address] Leukocyte esterase Auto test strip Ql (U) Negative Normal Negative [facility] Comment on above: Performed By: #### 4 [id number] #### [facility] [address] [place] [address] Nitrite Auto test strip Ql (U) Negative Normal Negative [facility] Comment on above: Performed By: #### 4 [id number] #### [facility] [address] [place] [address] pH (U) 5.5 [pH] Invalid Interpretation Code 5.0-9.0 [facility] Comment on above: Performed By: #### 4 [id number] #### [facility] [address] [place] [address] Protein Ql (U) Negative Normal Negative [facility] Comment on above: Performed By: #### 4 [id number] #### [facility] [address] [place] [address] Specific gravity (U) [Rel density] 1.012 Invalid Interpretation Code 1.005-1.030 [facility] Comment on above: Performed By: #### 4 [id number] #### [facility] [address] [place] [address] Urobilinogen (U) [Mass/Vol] Negative Normal Negative [facility] Comment on above: Performed By: #### 4 [id number] #### [facility] [address] [place] [address] Type of Urine collection method Clean Catch Normal [facility] Comment on above: Performed By: #### 4 [id number] #### [facility] [address] [place] [id number] URINALYSISOrdered By: SYSTEM SYSTEM on 12-25-2023 Bilirubin Ql (U) Negative Normal Negativemg/ d L [facility] UA Auto SS Clarity (U) Clear (12/25/23 7:53 AM) Normal Clear [facility] UA Auto SS Color (U) Light-Yellow 1 (12/25/23 7:53 AM) Normal Yellow [facility] UA Auto SS Comment on above: Interpretive Data: M icroscopic readings are only performed on those samples that meet specific criteria set forth by [facility]. Glucose Ql (U) Negative Normal [...] Protein Ql (U) Negative Normal Negativemg/d L FT UA Auto SS Specific gravity (U) [Rel density] 1.012 *NA* (12/25/23 7:53 AM) Invalid Interpretation Code 1.005 - 1.030 [facility] UA Auto SS Urobilinogen (U) [Mass/Vol] Negative Normal Negativemg/d L [facility] UA Auto SS URINALYSISOrdered By: Genevieve Parkermimi on 12-25-2023 UA Spec Desc Clean Catch (12/25/23 7:53 AM) Normal [facility] UA Auto SS XR Chest 2 Viewson [...] mGy = na DAP = na Normal [facility] eGFRon 12-25-2023 eGFR 60 mL/min/1.73 m2 Normal >=59 [facility] Comment on above: Order Comment: Order added by Discern Expert. Performed By: #### 1 [id number] #### [facility] [address] [place] [address] Reminderson 12-06-2023 Reminders - From: Carissa Hammonds [...] seen KML 11/29/23. Scheduled for TURP Normal [facility] Screenson 12-01-2023 Screens [id number] #1.00TIFF Normal [facility] Screens [id number] #1.00TIFF Normal [facility] Consent for Procedure/Surger yon 11-30-2023 Consent for Procedure/Surgery [id number]# 1.00TIFF Normal [facility] Patient Educationon 11-29-19 24 Patient Education [...] these instructions at home: Medicines ? Take myjm-lbp-cyoycce and prescription medicines only as told by [...] keep your urine pale yellow. ? Take dnzr-emn-pvmzodp or prescription medicines. ? Eat foods that [...] provider. Document Revised: 03/08/2022 Document Reviewed: 03/08/2022 ElseRemote Patient Education ? 2022 [employer] Transurethral Resection o (more content not included)... Normal [facility] Urology Office/Clinic Noteon 11-29-2023 Urology Office/Clinic [...] pelvic jameel (more content not included)... Normal [facility] Comment on above: Result Comment: Elec tronically Signed By: Daryl HAMILTON, Meghan Tucker\.br\Date and Time Signed: 11/29/23 16:11 EDT\.br\Electronically Co-Signed By: Carissa Hammonds\Date and Time Co-Signed: 11/29/23 11:34 EDT Basophils Auto (Bld) [#/Vol] on 11-24-2023 Basophils (Bld) [#/Vol] 0.1 10 3/uL 0.0-0.1 [facility] Basophils/100 WBC Auto (Bld) on 11-24-2023 Basophils/100 WBC (Bld) 1.4 % 0.2-2.0 [facility] Cholesterol in LDL Calc [Mas s/Vol]on 11-24-2023 Cholesterol in LDL [Mass/Vol] 135.0 mg/dL [facility] Comment on above: <100 mg/dl [id number] 0-129 mg/dl NEAR OR ABOVE [id number] mg/dl BORDERLINE IRNN566-537 mg/dl HIGH>190 mg/dl VERY HIGH Cholesterol in VLDL Calc [Ma ss/Vol]on 11-24-2023 Cholesterol in VLDL [Mass/Vol] 19.2 mg/dL [facility] Eosinophils/100 WBC Auto (Bl d)on 11-24-2023 Eosinophils/100 WBC (Bld) 4.8 % 0.9-7.0 [facility] Erythrocyte distribution wid th Auto (RBC) [Ratio]on 11-24-2023 Erythrocyte distribution width (RBC) [Ratio] 13.2 % 11.0-15.0 [facility] Estimated glomerular filtrat ion rate (GFR) non- Americanon 11-24-2023 GFR/1.73 sq M.predicted among non-blacks MDRD (S/P/Bld) [Vol rate/Area] 51 mL/min/{1.73_m2} >=60 [facility] Globulin Calc (S) [Mass/Vol] on 11-24-2023 Globulin (S) [Mass/Vol] 3.5 g/dL [facility] Hematocrit Auto (Bld) [Volum e fraction]on 11-24-2023 Hematocrit (Bld) [Volume fraction] 39.3 % 42.0-54.0 [facility] Hemoglobin [Mass/volume] in Bloodon 11-24-2023 Hemoglobin (Bld) [Mass/Vol] 12.9 g/dL 14.0-18.0 [facility] Laboratory - Chemistry and C hemistry - challengeon 11-24-2023 Albumin [Mass/Vol] 3.8 g/dL 3.4-5.0 [facility] ALP [Catalytic activity/Vol] 72 U/L 46-116 [facility] ALT [Catalytic activity/Vol] 25 U/L 16-63 [facility] AST [Catalytic activity/Vol] 17 U/L 15-37 [facility] Bilirubin [Mass/Vol] 0.9 mg/dL 0.2-1.0 [facility] Calcium [Mass/Vol] 8.9 mg/dL 8.5-10.1 [facility] Chloride [Moles/Vol] 105 mmol/L 98-107 [facility] Cholesterol [Mass/Vol] 188 mg/dL <=200 [facility] Cholesterol in HDL [Mass/Vol] 34 mg/dL 40-60 [facility] Comment on above: > or =60 mg/dl - LOW CARDIOVASCULAR RISK<40 mg/dl - HIGH CARDIOVASCULAR RISK CO2 [Moles/Vol] 28.1 mmol/L 21.0-32.0 [facility] Creatinine [Mass/Vol] 1.40 mg/dL 0.70-1.30 [facility] GFR/1.73 sq M.predicted MDRD (S/P/Bld) [Vol rate/Area] mL/min/{1.73_m2} >=60 [facility] Glucose [Mass/Vol] 114 mg/dL 74-106 [facility] Potassium [Moles/Vol] 4.2 mmol/L 3.5-5.1 [facility] Protein [Mass/Vol] 7.3 g/dL 6.4-8.2 [facility] Sodium [Moles/Vol] 142 mmol/L 136-145 [facility] Triglyceride [Mass/Vol] 96 mg/dL <=150 [facility] Urea nitrogen [Mass/Vol] 22.0 mg/dL 7.0-18.0 [facility] Urea nitrogen/Creatinine [Mass ratio] 15.7 mg/mg [facility] - Hematology and Cell countson 05-31-2024 Immature granulocytes/100 WBC (Bld) 0.2 % 0.0-0.5 [facility] Leukocytes [#/volume] correc rina for nucleated erythrocytes in Blood by Automated counon 11-24-2023 WBC corrected for nucl RBC Auto (Bld) [#/Vol] 5.0 10 3/uL 4.0-11.0 [facility] Lymphocytes Auto (Bld) [#/Vo l]on 11-24-2023 Lymphocytes (Bld) [#/Vol] 1.6 10 3/uL 1.2-3.8 [facility] Lymphocytes/100 WBC Auto (Bl d)on 11-24-2023 Lymphocytes/100 WBC (Bld) 31.0 % 20.5-60.0 [facility] MCH Auto (RBC) [Entitic mass ]on 11-24-2023 MCH (RBC) [Entitic mass] 28.4 pg 25.9-34.0 [facility] MCHC Auto (RBC) [Mass/Vol]on 11-24-2023 MCHC (RBC) [Mass/Vol] 32.8 g/dL 29.9-35.2 [facility] MCV Auto (RBC) [Entitic vol] on 11-24-2023 MCV (RBC) [Entitic vol] 86.6 fL 80.0-94.0 [facility] Monocytes Auto (Bld) [#/Vol] on 11-24-2023 Monocytes (Bld) [#/Vol] 0.4 10 3/uL 0.3-0.8 [facility] Monocytes/100 WBC Auto (Bld) on 11-24-2023 Monocytes/100 WBC (Bld) 8.1 % 1.7-12.0 [facility] Neutrophils Auto (Bld) [#/Vo l]on 11-24-2023 Neutrophils (Bld) [#/Vol] 2.8 10 3/uL 1.4-6.5 [facility] Neutrophils/100 WBC Auto (Bl d)on 11-24-2023 Neutrophils/100 WBC (Bld) 54.5 % 43.0-75.0 [facility] No Panel Informationon 11-23 Eosinophils # (Auto) 0.2 10 3/uL 0.0-0.7 [facility] Immature Granulocyte # (Auto) 0.01 10 3/uL 0.00-0.03 [facility] Prostate Specific Antigen Screen 6.70 ng/mL <=4.00 [facility] Platelet mean volume Auto (B ld) [Entitic vol]on 11-24-2023 Platelet mean volume (Bld) [Entitic vol] 10.3 fL 9.5-13.5 [facility] Platelets Auto (Bld) [#/Vol] on 11-24-2023 Platelets (Bld) [#/Vol] 177 10 3/uL 150-450 [facility] RBC Auto (Bld) [#/Vol]on RBC (Bld) [#/Vol] 4.54 10 6/uL 4.70-6.10 [facility] Serum or plasma albumin/glob ulin mass ratioon 11-24-2023 Albumin/Globulin [Mass ratio] 1.1 {ratio} [facility] Serum or plasma anion gap de terminationon 11-24-2023 Anion gap [Moles/Vol] 13.1 mmol/L [facility] Serum or plasma total choles terol/high density lipoprotein (HDL) cholesterol mass juve 11-24-2023 Cholesterol.total/Cho lesterol in HDL [Mass ratio] 5.5 {ratio} [facility] Comment on above: 3.3 - 4.4 LOW RISK4. 4 - 7.1 AVERAGE RISK7.1 - 11.0 MODERATE RISK>11.0 HIGH RISK Consent for Procedure/Surger yon 07-31-2023 Consent for Procedure/Surgery [id number] 6#1.00TIFF Normal [facility] Consent for Treatmenton Consent for Treatment [id number] #1.00TIFF Normal [facility] Inpatient Patient Summaryon 07-31-2023 Inpatient Patient Summary [place] [id number] Clinical Summary Person Information Name: MICHAEL KILLIAN Age: 68 Years : 1955 Sex: Male PCP: GIO CAVANAUGH DO Marital Status: Race: White Ethnicity: Non- or Language: Burundian Visit Id: Visit Reason: GROSS HEMATURIA Speciality: Acuity: Enc Type: Outpatient Med Service: Surgery Arrival: 07/31/2023 07:51:46 Discharge: Dispo Type: Address: [facility] [address] [place] [id number] Provider Notes: Diagnosis: BPH with urinary obstruction; [...] up: With: Address: When: Meghan Brito [address] [place], [place] [address], [address] [phone] Business (1) Comments: Office to schedule follow up in 3-4 months or call sooner for procedure (pt knows will be done by partner/referred out if during leave) Patient Education Information: Robot-Assisted Laparoscopic Radical Prostatectomy; Transurethral Resection of the Prostate; EU - Cystoscopy Discharge Instructions (CUSTOM) [facility] IntraOperative Documentson 0 07-31-2023 IntraOperative Documents [id number] 6#1.00TIFF [facility] Main OR Intraoperative Recor don 07-31-2023 Main OR Intraoperative Record IntraOp Document Type FTURO Summary Primary Physician: Meghan Brito MD Finalized Date/Time: 07/31/23 09:01:26 Pt. Name: MICHAEL KILLIAN Eleazar Villagran/Sex: 1955 Male Med Rec #: [id number] Physician: Meghan Brito MD Financial #: [id number] Pt. Type: O Room/Bed: / Admit/Disch: 07/31/23 [...] Rachana Felton Role Performed Surgeon - Primary Ocean Export Agent - Primary Scrub - Primary Time In 07/31/23 08:49:00 07/31/23 08:49:00 07/31/23 08:49:00 Time Out 07/31/23 09:07:00 07/31/23 09:07:00 07/31/23 09:07:00 Procedure CYSTOSCOPY LOCAL(.) CYSTOSCOPY LOCAL(.) CYSTOSCOPY LOCAL(.) Comments Last Modified By: Marge RN, CNOR, Marge RN, CNOR, Marge RN, DARSHANAOR, Purnima 07/31/23 Purnima 07/31/23 Purnima 07/31/23 [...] JAY Bird RN, Ruthann 07/31/23 09:01 Normal [facility] Main OR Preoperative Recordo n 07-31-2023 Main OR Preoperative Record Holding Area Document Type FTURO Summary Primary Physician: Meghan Brito MD Finalized Date/Time: 07/31/23 08:50:15 Pt. Name: MICHAEL KILLIAN Eleazar MillsB./Sex: 1955 Male Med Rec #: [id number] Physician: Meghan Brito MD Financial #: [id number] Pt. Type: O Room/Bed: / Admit/Disch: 07/31/23 [...] JAY Bird RN, Ruthann 07/31/23 08:50 Normal [facility] Operative Reporton Operative Report Patient: MICHAEL KILLIAN Age: 68 years Sex: Male : 1955 Associated Diagnoses: None Author: Meghan Brito MD Procedure Operative Information Details: Date/ Time: 07/31/2023 09:06:00. Pre-Op Dx: BPH with urinary obstruction (FUZ18-FC N40.1, Discharge, Medical), Feeling of incomplete bladder emptying (NWO64-NZ R39.14, Discharge, Medical), Gross hematuria (PMU40-SY R31.0, Discharge, Medical). Post-Op Dx: Same. Anesthesia [...] BPH workup and gross hematuria. . Normal [facility] Comment on above: Result Comment: Elec tronically Signed By: Meghan Brito MD\.br\Date and Time Signed: 07/31/23 09:10 EST Outpatient Surgery Discharge Instructionon 07-31-2023 Outpatient Surgery Discharge Instruction [address] [address] Patient Discharge Instructions PERSON INFORMATION [...] Follow up: With: Address: When: Meghan Brito [address] [place], [place] [id number] [phone] Business (1) Comments: Office to schedule follow [...] including vitamins, herbs, eye drops, creams, and urym-omz-dopjjjc medicines. ? Any problems you or family [...] tells you to take them. ? Taking fcst-rtb-htimvxv medicines, vitamins, herbs, and supplements. ? Follow your health care provider's instructions about cleaning out your bowels. Surgery s (more content not included)... Normal [facility] Progress Note-Physicianon Progress Note-Physician Patient: MICHAEL KILLIAN Age: 68 years Sex: Male : 1955 Associated Diagnoses: None Author: Meghan Brito MD Health Status Allergies: Allergic Reactions (Selected) Mild Cephalexin Monohydrate- Sob - shortness of breath. Penicillins- Sob - shortness of breath., Allergies (2) Active Severity Reaction Cephalexin Monohydrate Mild SOB - Shortness of breath penicillins Mild SOB - Shortness of breath Current medications: (Selected) Prescriptions Prescribed alfuzosin 10 mg ER Tab: 10 mg = 1 tab(s), Oral, Daily, # 90 tab(s), Refills(s) 3, Pharmacy: [facility], 180, cm, 06/16/23 9:50:00 EST, Height/Length Dosing, 108.2, kg, 06/16/23 9:50:00 EST, Weight Dosing Documented Medications Documented carvedilol 6.25 mg Tab: 6.25 mg = 1 tab(s), Oral, BID, # 60 tab(s), Refills(s) 0 lisinopril 40 mg Tab: mg tab(s), Oral, Daily, Refills(s) 0 Impression and Plan Assessment and Plan: Diagnosis: BPH with urinary obstruction (NIS00-VO N40.1, Discharge, Medical), Pelvic lymphadenopathy (AYE88-XX R59.0, Working, Medical), Chronic prostatitis (OIF40-RA N41.1, Discharge, Medical), Feeling of incomplete bladder emptying (LPR47-ZX R39.14, Discharge, Medical), Gross hematuria (NDV37-WN R31.0, Discharge, Medical). Assessment and Plan: Diagnosis: BPH with urinary obstruction (PNY15-UY N40.1, Discharge, Medical), Chronic prostatitis (BXF58-IK N41.1, Discharge, Medical), Feeling of incomplete bladder emptying (HIT96-QW R39.14, Discharge, Medical), Gross hematuria (IAB90-RY R31.0, Discharge, Medical), Pelvic lymphadenopathy (VLH14-DK R59.0, Working, Medical). 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 Gross hematuria - after [place] [facility] 07/05/23 at [facility] - neg for upper tract filling defects [...] 4 to 5 months with PVR Normal [facility] Comment on above: Result Comment: Elec tronically Signed By: Daryl HAMILTON, Meghan Gonzalez\Date and Time Signed: 07/31/23 12:31 EST RAD - CT Reporton 07-10-2023 RAD - CT Report [id number]# 1.00TIFF Normal [facility] Lab Reportson 07-07-2023 Lab Reports [id number]# 1.00TIFF Normal [facility] Lab Reports [id number] #1.00TIFF Normal [facility] Urine Cytology ([facility])on 07-05-2023 Urine Cytology Diagnosis Info Invalid Interpretation Code [facility] Comment on above: Result Comment: A:Ur ine,Urine:Voided Interpretation - MicroScopic Description - Adequacy - Gross Description Site ID:A color Dark Maury fixative Alcohol Specimen designated Urine received in alcohol preservative and labeled with the patient?s name, consists of 110ml cloudy dark peach fluid. Electronically signed by : on: 07/05/2023 13:00:05 Performed By: #### 1 [id number] ####[facility] [address] [place] [address] Urine Cytology ([facility])on 06-30-2023 UC Method of Extraction Voided Normal [facility] Comment on above: Performed By: #### 1 [id number] ####[facility] [address] [place] [address] UC Number of Jars 1 Invalid Interpretation Code [facility] Comment on above: Performed By: #### 1 [id number] ####[facility] [address] [place] [address] UC Specimen Urine Normal [facility] Comment on above: Performed By: #### 1 [id number] ####[facility] [address] [place] [address] Type of Service Technical Only Normal [facility] Comment on above: Performed By: #### 1 [id number] ####[facility] [address] [place] [address] IntraOperative Documentson 1 08-23-2022 IntraOperative Documents [id number] 0#1.00TIFF Normal [facility] Pathology Noteon 06-22-2023 Pathology Note [id number] #1.00TIFF Normal [facility] Screenson 06-20-2023 Screens [id number] #1.00TIFF Normal [facility] Screens [id number] #1.00TIFF Normal [facility] Ambulatory Visit Summaryon 1 08-17-2022 Ambulatory Visit Summary DANIELMICHAEL Eleazar :1955 Visit Date:06/16/2023 Ambulatory Visit Instructions Your Diagnosis Elevated PSA BPH with urinary obstruction ED (erectile dysfunction) Former smoker Enlarged lymph node Tests Performed Urnls Dip Stick Auto w/o Microscopy POC [address]248 CT Pelvis w/o Contrast -- Results Pending [...] 9:15 AM EST Where: [facility] Mariann [facility] Patient Educationon 06-16-20 Patient Education Oncology [...] Where to find more information ? [employer]: www.cancer.org ? [employer]: www.auanet.org Contact a health care [...] flu (more content not included)... Normal [facility] Urology Office/Clinic Noteon 06-16-2023 Urology Office/Clinic Note Chief Complaint S/P to MRI proste and review path HPI Staff S/p to MR prostate wo/ w con @ [facility] on 04/03/23 Review path report done 06/06/23 [...] consent jane (more content not included)... Normal [facility] Comment on above: Result Comment: Elec tronically Signed By: Meghan Brito MD\.br\Date and Time Signed: 06/16/23 15:18 EST\.br\Electronically Co-Signed By: Carissa Hammonds\.br\Date and Time Co-Signed: 06/16/23 11:02 EST Main OR Intraoperative Recor don 06-09-2023 Main OR Intraoperative Record IntraOp Document Type FT Summary Primary Physician: Meghan Brito MD Finalized Date/Time: 06/09/23 09:45:57 Pt. Name: MICHAEL KILLIAN/Sex: 1955 Male Med Rec #: [id number] Physician: Meghan Brito MD Financial #: [id number] Pt. Type: A Room/Bed: [facility]/ Admit/Disch: 06/06/23 13:31:36 - 12/12/23 18:00:13 Institution: Case Times FT Entry 1 Patient Times In Room 06/06/23 16:29:00 Out Room 06/06/23 16:55:00 Procedure Times Start 06/06/23 16:39:00 Stop 06/06/23 16:49:00 Anesthesia Times Last Modified By: Jacinta Don Ii 06/09/23 09:41:07 General Comments: 06/09/23 Chart opened to review and send charges LRoth CSFA Case Attendance FT Entry 1 Entry 2 Entry 3 Case Attendee Daryl HAMILTON, Meghan Watson, Jacinta Patton Ii Role Performed Surgeon - Primary Scrub - Primary Ocean Export Agent - Primary Time In 06/06/23 16:38:00 06/06/23 [...] Participants Niall Watson, Jacinta Don Ii, Waqar RN, Sadie Chinchilla Time Out Complete 06/06/23 16:38:00 [...] and tissue Entry 1 Skin Integrity Intact, [place], Warm, and Skin Abnormality No Dry Outcomes [...] Board Right (more content not included)... Normal [facility] Discharge Instructionson Discharge Instructions [id number] 9#1.00TIFF [facility] IntraOperative Documentson 08-09-2022 IntraOperative Documents [id number] 5#1.00TIFF [facility] IntraOperative Documents [id number] 9#1.00TIFF Normal [facility] IntraOperative Documents [id number] 9#1.00TIFF [facility] Preoperative Documentson Preoperative Documents [id number] 5#1.00TIFF [facility] Consent for Procedure/Surger yon 06-06-2023 Consent for Procedure/Surgery [id number] 58#1.00TIFF [facility] Consent for Treatmenton 05-26 Consent for Treatment [id number] #1.00TIFF [facility] Discharge Instructionson Discharge Instructions DANIELMICHAEL Eleazar :1955 Visit Date:06/06/2023 Inpatient Discharge Instructions Your [...] Meghan Brito MD Where: [facility] Comment on above: Result Comment: Elec tronically Signed By: Alcides ENCISO, Dori Mallory\.br\Date and Time Signed: 06/06/23 17:16 EST H&P Updateon 06-06-2023 H&P Update [id number] 9#1.00TIFF [facility] Inpatient Patient Summaryon 06-06-2023 Inpatient Patient Summary [place] [address] [place] Clinical Discharge Instructions PERSON INFORMATION Name: MICHAEL [...] Location Start Finish State [place] Office Visit [facility] 06/14/2023 10:30 AM 06/14/2023 10:45 AM [...] Tab) By Mouth every day. Comment: Normal [facility] Operative Reporton Operative Report Patient: MICHAEL [...] Select MDX showed 95% likelihood of detecting [place] 7 or higher. After discussion of risks/benefits [...] . Impression and Plan Diagnosis Elevated PSA (PEZ10-TS R97.20, Discharge, Medical). Diagnosis Elevated PSA (GNP47-HR R97.20, Discharge, Medical). Normal [facility] Comment on above: Result Comment: Elec tronically Signed By: Daryl HAMILTON, Meghan Tucker\.br\Date and Time Signed: 06/06/23 16:58 EST Outpatient Surgery Discharge Instructionon 06-06-2023 Outpatient Surgery Discharge Instruction [place] [id number] Patient Discharge Instructions PERSON INFORMATION Name: MICHAEL [...] THE NEAREST EMERGENCY ROOM OR CALL 911 I, MICHAEL KILLIAN, have received the attached patient education materials/instructio ns and have verbalized understanding: May we do a follow up call? Yes No I was present when discharge instructions were given Patient Signature Date Clinican/Nurse Signature Date Follow up: With: Address: When: Meghan Brito Comments: Keep scheduled appointment Type Location Start [place] [facility] [place] 06/14/2023 10:30 AM 06/14/2023 10:45 [...] to serve you. Thank you for choosing [facility] HERE ARE THE MEDICATION CHANGES THAT [...] near your rectum, especially while sitting. ? [place]-colored urine due to small amounts of blood [...] urinating or catheter-related problems Medication Leaflets: [facility] Patient Education - Texton 1 08-07-2022 Patient Education - Text Transperineal?Biopsy of the Prostate Discharge Instructions After the procedure, it is common to have: ? Pain and discomfort near your rectum, especially while sitting. ? [place]-colored urine due to small amounts of blood [...] have difficulty urinating or catheter-related problems Normal [facility] Outside Recordson 05-15-2023 Outside Records [id number] 5#1.00TIFF Normal [facility] Ambulatory Visit Summaryon 1 07-12-2022 Ambulatory Visit Summary MICHAEL KILLIAN :1955 Visit Date:05/10/2023 Ambulatory Visit Instructions Your Diagnosis Elevated PSA BPH with urinary obstruction Tests Performed Urnls Dip Stick Auto w/o Microscopy POC 95640 Your Care Team Attending Physician - Meghan [...] Appointments Monday 2:30 PM EST With: Where: [facility] Surgical Services Monday 10:30 AM EST With: Meghan Brito MD Where: [facility] Nas Normal [facility] Patient Educationon 05-10-20 Patient Education Oncology Prostate [...] Where to find more information ? The [employer]: www.cancer.org ? [employer]: www.auanet.org Contact a health care [...] adds flu (more content not included)... Normal [facility] Screenson 05-10-2023 Screens [id number] 1#1.00TIFF Normal [facility] Screens [id number] 3#1.00TIFF Normal [facility] Urology Office/Clinic Noteon 05-10-2023 Urology Office/Clinic [...] cancer upon bx. 95% likelihood of detecting [place] scores >=7 cancer. Today I reviewed the [...] the office notified. 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 2. BPH [...] -Timed voids (more content not included)... Normal [facility] Comment on above: Result Comment: Elec tronically Signed By: Meghan Brito MD\.br\Date and Time Signed: 05/10/23 11:31 EST\.br\Electronically Co-Signed By: Nevaeh Padilla\.br\Date and Time Co-Signed: 05/10/23 11:22 EST Lab Reportson 04-18-2023 Lab Reports [id number] #1.00TIFF [facility] Physician Orderon 04-13-2023 Physician Order [id number] #1.00TIFF [facility] Formson 04-12-2023 Forms [id number] #1.00TIFF [facility] Lab Reportson 04-12-2023 Lab Reports [id number] #1.00TIFF Normal [facility] Patient Educationon 04-11-20 Patient Education Oncology Prostate [...] Where to find more information ? The [employer]: www.cancer.org ? [employer]: www.auanet.org Contact a health care [...] flu (more content not included)... Normal [facility] Urology Office/Clinic Noteon 04-11-2023 Urology Office/Clinic Note [...] given order for PSA. Will complete at [facility]. Return in about 4 weeks to review [...] Contact Information LONNIE ELLIOTT, THERESA [place], URL [address] [address] [phone] Additional Instructions: f/u with MD in 1 month w/ PSA and Select MDX Patient Education Prostate Cancer Screening Documentation recorded by the doreen Hammonds accurately reflects the services(s) I performed and decisions made by me. Authenticated by Theresa Fleming PA-C on 04/11/2023 13:13:13. ICarissa, personally scribed for Theresa Fleming PA-C on [...] SARS-CoV-2 (COVID-19) Ad26 vaccine 09/02/2020 Recorded Normal [facility] Comment on above: Result Comment: Elec tronically Signed By: THERESA FLEMING PA-C\.br\Date and Time Signed: 04/11/23 13:13 EDT\.br\Electronically Co-Signed By: Carissa Hammonds\.br\Date and Time Co-Signed: 04/11/23 12:33 EDT RAD - MRI Reporton 3 RAD - MRI Report [id number] #1.00TIFF Normal [facility] ISTAT XRay CREon 04-03-2023 ISTAT GFR 55.088 Normal [facility] Comment on above: Result Comment: PERF ORMED BY: [place] [address] PATHOLOGIST SR VICE PRESIDENT SARAH BETH SILVEIRA M.D. Performed By: #### I SCRE #### [address] MR prostate wo/w conon 04-03 MR prostate wo/w con [facility] [place] [address] [place] [address] MRI Report Signed Patient: Michael Killian MR#: [id number] : 1955 Acct:[id number] Age/Sex: 68 / M ADM Date: 04/03/23 Loc: MR Room: Type: [facility] Attending Dr: Theresa Fleming PA-C Copies [...] Cleary Jr., D.O.04/03/2023 1:40 PM Dictation Location: [facility] Transcribed By: [facility] 04/03/23 1340 Dictated By: Leandro Cleary Jr, DO 04/03/23 1334 Signed By: 04/03/23 1340 Normal [facility] Whole blood creatinine measu rementOrdered By: Theresa Fleming on 04-03-2023 Creatinine [Mass/Vol] 1.4 mg/dL High 0.6-1.3 [facility] Comment on above: ER/ESD physician is notified/shown all ISTAT results.Critical values may be confirmed by laboratory testing ifdeemed necessary by ER attending doctor. Result Comment: ER/E SD physician is notified/shown all ISTAT results. Critical values may be confirmed by laboratory testing if deemed necessary by ER attending doctor. Performed By: #### I SCRE #### [facility] [address] PROF 14(COMP METB)on 023 Albumin [Mass/Vol] 3.9 g/dL Normal 3.4-5.0 [facility] Comment on above: Performed By: #### B MP #### [facility] [address] [place] [address] Dr. Duy James Albumin/Globulin [Mass ratio] 1.1 {ratio} Normal [facility] Comment on above: Performed By: #### B MP #### [facility] [address] [place] [address] Dr. Duy James ALP [Catalytic activity/Vol] 70 U/L Normal 46-116 [facility] Comment on above: Performed By: #### B MP #### [facility] [address] [place] [address] Dr. Duy James ALT [Catalytic activity/Vol] 26 U/L Normal 16-63 [facility] Comment on above: Performed By: #### B MP #### [facility] [address] [place] [address] [address] Duy James Anion gap [Moles/Vol] 13.1 mmol/L Normal [facility] Comment on above: Performed By: #### B MP #### [facility] [address] [place] [address] [address] Duy James AST [Catalytic activity/Vol] 17 U/L Normal 15-37 [facility] Comment on above: Performed By: #### B MP #### [facility] [address] [place] [address] Dr. Duy James Bilirubin [Mass/Vol] 0.6 mg/dL Normal 0.2-1.0 [facility] Comment on above: Performed By: #### B MP #### [facility] [address] [place] [address] [address] Duy James Calcium [Mass/Vol] 9.0 mg/dL Normal 8.5-10.1 [facility] Comment on above: Performed By: #### B MP #### [facility] [address] [place] [address] [address] Duy James Chloride [Moles/Vol] 106 mmol/L Normal 98-107 [facility] Comment on above: Performed By: #### B MP #### [facility] [address] [place] [address] [address] Duy James CO2 [Moles/Vol] 28.5 mmol/L Normal 21.0-32.0 [facility] Comment on above: Performed By: #### B MP #### [facility] [address] [place] [address] [address] Duy James Creatinine [Mass/Vol] 1.22 mg/dL Normal 0.70-1.30 [facility] Comment on above: Performed By: #### B MP #### [facility] [address] [place] [address] [address] Duy James EGFR-AF [place] >60 Normal >=60 [facility] Comment on above: Performed By: #### B MP #### [facility] [address] [place] [address] [address] Duy James EGFR-NON AF [place] 59 mL/min/1.73m2 Critically low >=60 [facility] Comment on above: Performed By: #### B MP #### [facility] [address] [place] [address] [address] Duy James Globulin (S) [Mass/Vol] 3.7 g/dL Normal [facility] Comment on above: Performed By: #### B MP #### [facility] [address] [place] [address] [address] Duy James Glucose [Mass/Vol] 113 mg/dL Critically high 74-106 T [facility] Comment on above: Performed By: #### B MP #### [facility] [address] [place], [place] [address] Dr. Duy James Potassium [Moles/Vol] 4.6 mmol/L Normal 3.5-5.1 [facility] Comment on above: Performed By: #### B MP #### [facility] [address] [place] [address] [address] Duy James Protein [Mass/Vol] 7.6 g/dL Normal 6.4-8.2 [facility] Comment on above: Performed By: #### B MP #### [facility] [address] [place], [place] [address] Dr. Duy James Sodium [Moles/Vol] 143 mmol/L Normal 136-145 [facility] Comment on above: Performed By: #### B MP #### [facility] [address] [place] [address] [address] Duy James Urea nitrogen [Mass/Vol] 12.0 mg/dL Normal 7.0-18.0 [facility] Comment on above: Performed By: #### B MP #### [facility] [address] [place] [address] [address] Duy James Urea nitrogen/Creatinine [Mass ratio] 9.8 mg/mg Normal [facility] Comment on above: Performed By: #### B MP #### [facility] [address] [place] [id number] Duy James XR CHEST 2 Von [...] by: LIDYA VALE Date: 2022-11-07 09:16 Normal [facility] CULTURE BLOODon 08-30-2022 Microscopic examination of blood, [...] F Trimethoprim/Sulfame thoxazole <=10 S F Normal [facility] Comment on above: Performed By: #### B MP #### [facility] [address] [place] [address] Dr. Duy James HEPATITIS PANEL, ACUTEon HBsAg Screen Negative Normal Negative [facility] Comment on above: Performed By: #### C BC #### [facility] [address] [place] [address] Dr. Duy James HCV AB Non-Reactive Normal Non Reactive [facility] Comment on above: Performed By: #### C BC #### [facility] [address] [place] [address] Dr. Duy James Hep A Ab, IgM Negative Normal Negative [facility] Comment on above: Performed By: #### C BC #### [facility] [address] [place] [address] Dr. Duy James Hep B Core Ab, IgM Negative Normal Negative [facility] Comment on above: Performed By: #### C BC #### [facility] [address] [place] [address] Dr. Duy James Interpretation: Comment Normal [facility] Comment on above: Result Comment: Not infected with HCV unless early or acute infection is suspected (which may be delayed in an immunocompromised individual), or other evidence exists to indicate HCV infection. Performed By: #### C BC #### [facility] [address] [place] [address] Dr. Duy James CBC W MANUAL DIFFon 08-29-19 23 ATYPICAL LYMPH # Normal [facility] Comment on above: Performed By: #### B MP #### [facility] [address] [place] [address] Dr. Duy James ATYPICAL LYMPH % Normal [facility] Comment on above: Performed By: #### B MP #### [facility] [address] [place] [address] Dr. Duy James BAND # 0.0 103/ul Normal 0.0-0.3 [facility] Comment on above: Performed By: #### B MP #### [facility] [address] [place] [address] Dr. Duy James BAND % 0 % Normal 0-5 [facility] Comment on above: Performed By: #### B MP #### [facility] [address] [place] [address] Dr. Duy James BASOM # 0.00 103/ul Normal 0.00-0.10 [facility] Comment on above: Performed By: #### B MP #### [facility] [address] [place] [address] Dr. Duy James BASOM % 0.0 % Critically low 0.2-2.0 [facility] Comment on above: Performed By: #### B MP #### [facility] [address] [place] [address] Dr. Duy James BLAST # Normal [facility] Comment on above: Performed By: #### B MP #### [facility] [address] [place] [address] Dr. Duy James BLAST % Normal [facility] Comment on above: Performed By: #### B MP #### [facility] [address] [place] [address] Dr. Duy James CORRECTED WBC Normal 4.0-11.0 [facility] Comment on above: Performed By: #### B MP #### [facility] [address] [place] [address] Dr. Duy James EOS # 0.00 103/ul Normal 0.00-0.70 [facility] Comment on above: Performed By: #### B MP #### [facility] [address] [place], [place] [id number] Dr. Duy James EOS% 0.0 % Critically low 0.9-7.0 [facility] Comment on above: Performed By: #### B MP #### [facility] [address] [place] [address] Dr. Duy James HCT 36.8 % Critically low 42.0-54.0 [facility] Comment on above: Performed By: #### B MP #### [facility] [address] [place] [address] Dr. Duy James HGB 12.0 g/dl Critically low 14.0-18.0 [facility] Comment on above: Performed By: #### B MP #### [facility] [address] [place] [address] Dr. Duy James LYMPHM # 0.47 103/ul Critically low 1.20-3.80 [facility] Comment on above: Performed By: #### B MP #### [facility] [address] [place] [address] Dr. Duy James LYMPHM% 6.0 % Critically low 20.5-60.0 [facility] Comment on above: Performed By: #### B MP #### [facility] [address] [place] [address] Dr. Duy James MCH 28.4 pg Normal 25.9-34.0 [facility] Comment on above: Performed By: #### B MP #### [facility] [address] [place] [address] Dr. Duy James MCHC 32.6 g/dl Normal 29.9-35.2 [facility] Comment on above: Performed By: #### B MP #### [facility] [address] [place] [address] Dr. Duy James MCV 87.0 fL Normal 80.0-94.0 [facility] Comment on above: Performed By: #### B MP #### [facility] [address] [place] [address] Dr. Duy James METAMYELOCYTE # Normal [facility] Comment on above: Performed By: #### B MP #### [facility] [address] [place] [address] Dr. Duy James METAMYELOCYTE % Normal [facility] Comment on above: Performed By: #### B MP #### [facility] [address] [place] [address] Dr. Duy James MONOM# 0.40 103/ul Normal 0.30-0.80 [facility] Comment on above: Performed By: #### B MP #### [facility] [address] [place] [address] Dr. Duy James MONOM% 5.0 % Normal 1.7-12.0 [facility] Comment on above: Performed By: #### B MP #### [facility] [address] [place] [address] Dr. Duy James MPV 10.2 fL Normal 9.5-13.5 [facility] Comment on above: Performed By: #### B MP #### [facility] [address] [place] [address] Dr. Duy James MYELOCYTE # Normal [facility] Comment on above: Performed By: #### B MP #### [facility] [address] [place] [address] Dr. Duy James MYELOCYTE % Normal [facility] Comment on above: Performed By: #### B MP #### [facility] [address] [place] [address] Dr. Duy James NRBC Normal [facility] Comment on above: Performed By: #### B MP #### [facility] [address] [place] [address] Dr. Duy James PLT 205 103/ul Normal 150-450 [facility] Comment on above: Performed By: #### B MP #### [facility] [address] [place] [address] Dr. Duy James RBC 4.23 106/ul Critically low 4.70-6.10 [facility] Comment on above: Performed By: #### B MP #### [facility] [address] [place] [address] Dr. Duy James RDW 13.3 % Normal 11.0-15.0 [facility] Comment on above: Performed By: #### B MP #### [facility] [address] [place] [address] Dr. Duy James SEG # 7.03 103/ul Critically high 1.40-6.50 [facility] Comment on above: Performed By: #### B MP #### [facility] [address] [place] [address] Dr. Duy James SEG % 89.0 % Critically high 43.0-75.0 [facility] Comment on above: Performed By: #### B MP #### [facility] [address] [place] [address] Dr. Duy James WBC 7.9 103/ul Normal 4.0-11.0 [facility] Comment on above: Performed By: #### B MP #### [facility] [address] [place] [address] Dr. Duy James PROF 14(COMP METB)on 023 Albumin [Mass/Vol] 3.4 g/dL Normal 3.4-5.0 [facility] Comment on above: Performed By: #### C BC #### [facility] [address] [place] [address] Dr. Duy James Albumin/Globulin [Mass ratio] 1.0 {ratio} Normal [facility] Comment on above: Performed By: #### C BC #### [facility] [address] [place] [address] Dr. Duy James ALP [Catalytic activity/Vol] 73 U/L Normal 46-116 [facility] Comment on above: Performed By: #### C BC #### [facility] [address] [place] [address] Dr. Duy James ALT [Catalytic activity/Vol] 66 U/L Critically high 16-63 [facility] Comment on above: Performed By: #### C BC #### [facility] [address] [place] [address] Dr. Duy James Anion gap [Moles/Vol] 10.6 mmol/L Normal [facility] Comment on above: Performed By: #### C BC #### [facility] [address] [place] [address] Dr. Duy James AST [Catalytic activity/Vol] 26 U/L Normal 15-37 [facility] Comment on above: Performed By: #### C BC #### [facility] [address] [place] [address] [address] Duy James Bilirubin [Mass/Vol] 0.3 mg/dL Normal 0.2-1.0 [facility] Comment on above: Performed By: #### C BC #### [facility] [address] [place] [address] Dr. Duy James Calcium [Mass/Vol] 8.9 mg/dL Normal 8.5-10.1 [facility] Comment on above: Performed By: #### C BC #### [facility] [address] [place] [address] Dr. Duy James Chloride [Moles/Vol] 106 mmol/L Normal 98-107 [facility] Comment on above: Performed By: #### C BC #### [facility] [address] [place] [address] Dr. Duy James CO2 [Moles/Vol] 29.3 mmol/L Normal 21.0-32.0 [facility] Comment on above: Performed By: #### C BC #### [facility] [address] [place] [address] Dr. Duy James Creatinine [Mass/Vol] 1.12 mg/dL Normal 0.70-1.30 [facility] Comment on above: Performed By: #### C BC #### [facility] [address] [place] [address] [address] Duy James EGFR-AF [place] >60 Normal >=60 [facility] Comment on above: Performed By: #### C BC #### [facility] [address] [place] [address] Dr. Duy James EGFR-NON AF [place] >60 Normal >=60 [facility] Comment on above: Performed By: #### C BC #### [facility] [address] [place] [address] Dr. Duy James Globulin (S) [Mass/Vol] 3.3 g/dL Normal [facility] Comment on above: Performed By: #### C BC #### [facility] [address] [place] [address] [address] Duy James Glucose [Mass/Vol] 157 mg/dL Critically high 74-106 [facility] Comment on above: Performed By: #### C BC #### [facility] [address] [place] [address] Dr. Duy James Potassium [Moles/Vol] 4.9 mmol/L Normal 3.5-5.1 [facility] Comment on above: Performed By: #### C BC #### [facility] [address] [place] [address] Dr. Duy James Protein [Mass/Vol] 6.7 g/dL Normal 6.4-8.2 [facility] Comment on above: Performed By: #### C BC #### [facility] [address] [place] [address] Dr. Duy James Sodium [Moles/Vol] 141 mmol/L Normal 136-145 [facility] Comment on above: Performed By: #### C BC #### [facility] [address] [place] [address] Dr. Duy James Urea nitrogen [Mass/Vol] 22.0 mg/dL Critically high 7.0-18.0 [facility] Comment on above: Performed By: #### C BC #### [facility] [address] [place] [address] Dr. Duy James Urea nitrogen/Creatinine [Mass ratio] 19.6 mg/mg Normal [facility] Comment on above: Performed By: #### C BC #### [facility] [address] [place] [address] Dr. Duy James MAGNESIUMon 08-27-2022 Magnesium [Mass/Vol] 2.0 mg/dL Normal 1.8-2.4 [facility] Comment on above: Performed By: #### C MP, MG #### [facility] [address] [place] [address] [address] Duy James PROF 14(COMP METB)on 023 Albumin [Mass/Vol] 3.6 g/dL Normal 3.4-5.0 [facility] Comment on above: Performed By: #### C MP, MG #### [facility] [address] [place] [address] [address] Duy James Albumin/Globulin [Mass ratio] 0.9 {ratio} Normal [facility] Comment on above: Performed By: #### C MP, MG #### [facility] [address] [place] [address] [address] Duy James ALP [Catalytic activity/Vol] 79 U/L Normal 46-116 [facility] Comment on above: Performed By: #### C MP, MG #### [facility] [address] [place] [address] Dr. Duy James ALT [Catalytic activity/Vol] 86 U/L Critically high 16-63 [facility] [place] Comment on above: Performed By: #### C MP, MG #### [facility] [address] [place] [address] Dr. Duy James Anion gap [Moles/Vol] 14.3 mmol/L Normal [facility] Comment on above: Performed By: #### C MP, MG #### [facility] [address] [address] [address] Duy James AST [Catalytic activity/Vol] 38 U/L Critically high 15-37 [facility] [place] Comment on above: Performed By: #### C MP, MG #### [facility] [address] [place] [address] Dr. Duy James Bilirubin [Mass/Vol] 0.4 mg/dL Normal 0.2-1.0 [facility] [place] Comment on above: Performed By: #### C MP, MG #### [facility] [address] [place] [address] Dr. Duy James Calcium [Mass/Vol] 9.3 mg/dL Normal 8.5-10.1 [facility] Comment on above: Performed By: #### C MP, MG #### [facility] [address] [address] [address] Duy James Chloride [Moles/Vol] 106 mmol/L Normal 98-107 [facility] [place] [facility] Comment on above: Performed By: #### C MP, MG #### [facility] [address] [address] [address] Duy James CO2 [Moles/Vol] 27.1 mmol/L Normal 21.0-32.0 [facility] Comment on above: Performed By: #### C MP, MG #### [facility] [address] [address] [address] Duy James Creatinine [Mass/Vol] 1.17 mg/dL Normal 0.70-1.30 [facility] [place] Comment on above: Performed By: #### C MP, MG #### [facility] [address] [place] [address] Dr. Duy James EGFR-AF [place] >60 Normal >=60 [facility] Comment on above: Performed By: #### C MP, MG #### [facility] [address] [address] [address] Duy James EGFR-NON AF [place] >60 Normal >=60 [facility] [place] Comment on above: Performed By: #### C MP, MG #### [facility] [address] [place] [address] Dr. Duy James Globulin (S) [Mass/Vol] 3.8 g/dL Normal [facility] [place] Comment on above: Performed By: #### C MP, MG #### [facility] [address] [address] [address] Duy James Glucose [Mass/Vol] 163 mg/dL Critically high 74-106 [facility] Comment on above: Performed By: #### C MP, MG #### [facility] [address] [place] [address] Dr. Duy James Potassium [Moles/Vol] 5.4 mmol/L Critically high 3.5-5.1 [facility] [place] Comment on above: Performed By: #### C MP, MG #### [facility] [address] [address] [address] Duy James Protein [Mass/Vol] 7.4 g/dL Normal 6.4-8.2 [facility] Comment on above: Performed By: #### C MP, MG #### [facility] [address] [place] [address] Dr. Duy James Sodium [Moles/Vol] 142 mmol/L Normal 136-145 [facility] Comment on above: Performed By: #### C MP, MG #### [facility] [address] [place] [address] Dr. Duy James Urea nitrogen [Mass/Vol] 16.0 mg/dL Normal 7.0-18.0 [facility] [place] Comment on above: Performed By: #### C MP, MG #### [facility] [address] [place] [address] Dr. Duy James Urea nitrogen/Creatinine [Mass ratio] 13.7 mg/mg Normal [facility] [place] Comment on above: Performed By: #### C MP, MG #### [facility] [address] [place] [address] Dr. Duy James PROF CHEM 8 (BAS METB)on Anion gap [Moles/Vol] 15.1 mmol/L Normal [facility] Comment on above: Performed By: #### B MP #### [facility] [address] [place] [address] Dr. Duy James Calcium [Mass/Vol] 9.0 mg/dL Normal 8.5-10.1 [facility] Comment on above: Performed By: #### B MP #### [facility] [address] [place] [address] Dr. Duy James Chloride [Moles/Vol] 105 mmol/L Normal 98-107 [facility] Comment on above: Performed By: #### B MP #### [facility] [address] [place] [address] Dr. Duy James CO2 [Moles/Vol] 27.0 mmol/L Normal 21.0-32.0 [facility] Comment on above: Performed By: #### B MP #### [facility] [address] [address] [address] Duy James Creatinine [Mass/Vol] 1.20 mg/dL Normal 0.70-1.30 [facility] [place] Comment on above: Performed By: #### B MP #### [facility] [address] [address] [address] Duy James EGFR-AF [place] >60 Normal >=60 [facility] Comment on above: Performed By: #### B MP #### [facility] [address] [address] [address] Duy James EGFR-NON AF [place] >60 Normal >=60 [facility] Comment on above: Performed By: #### B MP #### [facility] [address] [place] [address] Dr. Duy James Glucose [Mass/Vol] 155 mg/dL Critically high 74-106 [facility] Comment on above: Performed By: #### B MP #### [facility] [address] [address] [address] Duy James Potassium [Moles/Vol] 5.1 mmol/L Normal 3.5-5.1 [facility] [place] Comment on above: Performed By: #### B MP #### [facility] [address] [place] [address] Dr. Duy James Sodium [Moles/Vol] 142 mmol/L Normal 136-145 [facility] Comment on above: Performed By: #### B MP #### [facility] [address] [address] [address] Duy James Urea nitrogen [Mass/Vol] 19.0 mg/dL Critically high 7.0-18.0 [facility] [place] Comment on above: Performed By: #### B MP #### [facility] [address] [address] [address] Duy James Urea nitrogen/Creatinine [Mass ratio] 15.8 mg/mg Normal [facility] [place] Comment on above: Performed By: #### B MP #### [facility] [address] [place] [address] Dr. Duy James XR CHEST 2 Von [...] GRACIE DEAN Date: 2022-08-27 08:27 Normal [facility] BLOOD CULTURE ID PANELon A. baumannii Not detected Normal NOT DETECTED [facility] Comment on above: Performed By: #### C BC #### [facility] [address] [place] [address] Dr. Duy James Bacteriodes fragilis Not detected Normal NOT DETECTED [facility] Comment on above: Performed By: #### C BC #### [facility] [address] [place] [address] Dr. Duy James BCID CONTROLS PASSED Normal [facility] Comment on above: Performed By: #### C BC #### [facility] [address] [place] [address] Dr. Duy James BCIDBTHD BLOOD CULTURE BOTTLE INFORMATION Normal [facility] Comment on above: Performed By: #### C BC #### [facility] [address] [place] [address] Dr. Duy James BCIDHD1 ANTIMICROBIAL RESISTANCE GENES Normal [facility] Comment on above: Performed By: #### C BC #### [facility] [address] [place] [address] Dr. Duy James BCIDHD2 SEE BELOW Normal [facility] Comment on above: Result Comment: Note : Antimicrobial resitance can occur via multiple mechanisms. A Not Detected result for the [employer] antomicrobial resistance gene assays does not indicate antimicrobial susceptibility. Subculturing is required for species identification and susceptibility testing of isolates. Performed By: #### C BC #### [facility] [address] [place] [address] Dr. Duy James BCIDHD3 Positive Normal [facility] Comment on above: Performed By: #### C BC #### [facility] [address] [place] [address] Dr. Duy James BCIDHD4 Negative Normal [facility] [place] Comment on above: Performed By: #### C BC #### [facility] [address] [place] [address] Dr. Duy James BCIDHD5 YEAST Normal [facility] [place] Comment on above: Performed By: #### C BC #### [facility] [address] [place] [address] Dr. Duy James Bottle Set: Set 1 Normal [facility] [place] Comment on above: Performed By: #### C BC #### [facility] [address] [place] [address] Dr. Duy James Bottle: Anaerobic Normal [facility] [place] Comment on above: Performed By: #### C BC #### [facility] [address] [place] [address] Dr. Duy Zamorano. neoformans/gattii Not detected Normal NOT DETECTED [facility] [place] Comment on above: Performed By: #### C BC #### [facility] [address] [place] [address] Dr. Duy James Gala albicans Not detected Normal NOT DETECTED [facility] Comment on above: Performed By: #### C BC #### [facility] [address] [place] [address] Dr. Duy James Gala auris Not detected Normal NOT DETECTED The [facility] Comment on above: Performed By: #### C BC #### [facility] [address] [place] [address] Dr. Duy James Gala glabrata Not detected Normal NOT DETECTED [facility] Comment on above: Performed By: #### C BC #### [facility] [address] [place] [address] Dr. Duy James Gala Krusei Not detected Normal NOT DETECTED [facility] Comment on above: Performed By: #### C BC #### [facility] [address] [place] [address] Dr. Duy James Gala Parapsilosis Not detected Normal NOT DETECTED [facility] Comment on above: Performed By: #### C BC #### [facility] [address] [address] [address] Duy James Gala Tropicalis Not detected Normal NOT DETECTED [facility] Comment on above: Performed By: #### C BC #### [facility] [address] [place] [address] Dr. Duy James CTX-M Resistant Gene Not Applicable Normal NOT DETECTE D [facility] [place] Comment on above: Performed By: #### C BC #### [facility] [address] [place] [address] Dr. Duy James E. Cloacae complex Not detected Normal NOT DETECTED [facility] Comment on above: Performed By: #### C BC #### [facility] [address] [place] [address] Dr. Duy James E. faecalis Not detected Normal NOT DETECTED [facility] Comment on above: Performed By: #### C BC #### [facility] [address] [place] [address] Dr. Duy James E. faecium Not detected Normal NOT DETECTED [facility] Comment on above: Performed By: #### C BC #### [facility] [address] [place] [address] Dr. Duy James Enterobacteriaceae Not detected Normal NOT DETECTED [facility] Comment on above: Performed By: #### C BC #### [facility] [address] [place] [address] Dr. Duy James Escherichia coli Not detected Normal NOT DETECTED [facility] Comment on above: Performed By: #### C BC #### [facility] [address] [place] [address] Dr. Duy James H. influenzae Not detected Normal NOT DETECTED [facility] Comment on above: Performed By: #### C BC #### [facility] [address] [place] [address] Dr. Duy James IMP Resistant Gene Not Applicable Normal NOT DETECTED [facility] Comment on above: Performed By: #### C BC #### [facility] [address] [place] [address] Dr. Duy James K. oxytoca Not detected Normal NOT DETECTED [facility] Comment on above: Performed By: #### C BC #### [facility] [address] [place] [address] Dr. Duy James K. pneumoniae Not detected Normal NOT DETECTED [facility] Comment on above: Performed By: #### C BC #### [facility] [address] [place] [address] Dr. Duy James Klebsiella aerogenes Not detected Normal NOT DETECTED [facility] Comment on above: Performed By: #### C BC #### [facility] [address] [place] [address] Dr. Duy James KPC Resistant Gene Not Applicable Normal NOT DETECTED [facility] Comment on above: Performed By: #### C BC #### [facility] [address] [place] [address] Dr. Duy James List. monocytogenes Not detected Normal NOT DETECTED [facility] Comment on above: Performed By: #### C BC #### [facility] [address] [place] [address] Dr. Duy James Mcr-1 Resistant Gene Not Applicable Normal NOT DETECTE D [facility] Comment on above: Performed By: #### C BC #### [facility] [address] [place] [address] Dr. Duy James mecA/C Not Applicable Normal NOT DETECTED [facility] Comment on above: Performed By: #### C BC #### [facility] [address] [place] [address] Dr. Duy James mecA/C MREJ Not Applicable Normal NOT DETECTED [facility] Comment on above: Performed By: #### C BC #### [facility] [address] [place] [address] Dr. Duy James N. meningitidis Not detected Normal NOT DETECTED [facility] Comment on above: Performed By: #### C BC #### [facility] [address] [place] [address] Dr. Duy James NDM Resistant Gene Not Applicable Normal NOT DETECTED [facility] Comment on above: Performed By: #### C BC #### [facility] [address] [place] [address] Dr. Duy James Oxa-48-like Not Applicable Normal NOT DETECTED [facility] Comment on above: Performed By: #### C BC #### [facility] [address] [place] [address] Dr. Duy James Proteus Not detected Normal NOT DETECTED [facility] Comment on above: Performed By: #### C BC #### [facility] [address] [place] [address] Dr. Duy James Pseud. aeruginosa Not detected Normal NOT DETECTED [facility] Comment on above: Performed By: #### C BC #### [facility] [address] [place] [address] Dr. Duy James S. maltophilia Not detected Normal NOT DETECTED [facility] Comment on above: Performed By: #### C BC #### [facility] [address] [place] [address] Dr. Duy James Salmonella Not detected Normal NOT DETECTED [facility] Comment on above: Performed By: #### C BC #### [facility] [address] [place] [address] Dr. Duy James Seratia marcescens Not detected Normal NOT DETECTED [facility] Comment on above: Performed By: #### C BC #### [facility] [address] [place] [address] Dr. Duy James Site: L a/c Normal [facility] Comment on above: Performed By: #### C BC #### [facility] [address] [place] [address] Dr. Duy James Staph. aureus Not detected Normal NOT DETECTED [facility] Comment on above: Performed By: #### C BC #### [facility] [address] [place] [address] Dr. Duy James Staph. epidermidis Not detected Normal NOT DETECTED [facility] Comment on above: Performed By: #### C BC #### [facility] [address] [place] [address] Dr. Dyu James Staph. lugdunensis Not detected Normal NOT DETECTED [facility] Comment on above: Performed By: #### C BC #### [facility] [address] [place] [address] Dr. Duy James Staphylococcus Detected Critically abnormal NOT DETECTED [facility] Comment on above: Performed By: #### C BC #### [facility] [address] [place] [address] Dr. Duy James Strep. agalactiae Not detected Normal NOT DETECTED [facility] Comment on above: Performed By: #### C BC #### [facility] [address] [place] [address] Dr. Duy James Strep. pneumoniae Not detected Normal NOT DETECTED [facility] Comment on above: Performed By: #### C BC #### [facility] [address] [place] [address] Dr. Duy James Strep. pyogenes Not detected Normal NOT DETECTED [facility] Comment on above: Performed By: #### C BC #### [facility] [address] [place] [address] Dr. Duy James Streptococcus Not detected Normal NOT DETECTED [facility] Comment on above: Performed By: #### C BC #### [facility] [address] [place] [address] Dr. Duy James Cullen/B Resist. Gene Not Applicable Normal NOT DETECTED [facility] Comment on above: Performed By: #### C BC #### [facility] [address] [place] [address] Dr. Duy James VIM Resistant Gene Not Applicable Normal NOT DETECTED [facility] Comment on above: Performed By: #### C BC #### [facility] [address] [place] [address] Dr. Duy James BLOOD GASES BTYon 08-26-2022 02 MODE NASAL CANNULA Normal [facility] Comment on above: Performed By: #### C BC #### [facility] [address] [place] [address] Dr. Duy James ALLENS TEST Positive [facility] Comment on above: Performed By: #### C BC #### [facility] [address] [place] [address] Dr. Duy James Base excess Calc (Bld) [Moles/Vol] -1.3000 mmol/L Normal -2.0-2.0 [facility] Comment on above: Performed By: #### C BC #### [facility] [address] [place] [address] Dr. Duy James BIPAP PRESSURE [facility] Comment on above: Performed By: #### C BC #### [facility] [address] [place] [address] Dr. Duy James CPAP [facility] Comment on above: Performed By: #### C BC #### [facility] [address] [place] [address] Dr. Duy James FIO2 [facility] Comment on above: Performed By: #### C BC #### [facility] [address] [place] [address] Dr. Duy James HCO3 (Bld) [Moles/Vol] 24.5 mmol/L Normal 22.0-26.0 [facility] Comment on above: Performed By: #### C BC #### [facility] [address] [place] [address] Dr. Duy James LPM 2 [facility] Comment on above: Performed By: #### C BC #### [facility] [address] [place] [address] Dr. Duy James MINUTE VOLUME Normal [facility] Comment on above: Performed By: #### C BC #### [facility] [address] [place] [address] Dr. Duy James Oxygen (Bld) [Partial pressure] 64.3 mm[Hg] Critically low 80.0-100.0 [facility] Comment on above: Performed By: #### C BC #### [facility] [address] [place] [address] Dr. Duy James Oxygen saturation in Blood 92.0 % Critically low 95.0-100.0 [facility] [place] Comment on above: Performed By: #### C BC #### [facility] [address] [place] [address] Dr. Duy James PCO2 45.3 mmHg Critically high 35.0-45.0 [facility] Comment on above: Performed By: #### C BC #### [facility] [address] [place] [address] Dr. Duy James PEEP [facility] Comment on above: Performed By: #### C BC #### [facility] [address] [place] [address] Dr. Duy James pH (Bld) 7.341 [pH] Critically low 7.350-7.450 [facility] Comment on above: Performed By: #### C BC #### [facility] [address] [place] [address] Dr. Duy James [facility] Comment on above: Performed By: #### C BC #### [facility] [address] [place] [address] Dr. Duy James [facility] Comment on above: Performed By: #### C BC #### [facility] [address] [place] [address] Dr. Duy James PUNCTURE SITE LR [facility] Comment on above: Performed By: #### C BC #### [facility] [address] [place] [address] Dr. Duy James RATE [facility] Comment on above: Performed By: #### C BC #### [facility] [address] [place] [address] Dr. Duy James VENT MODE [facility] Comment on above: Performed By: #### C BC #### [facility] [address] [place] [address] Dr. Duy James [facility] Comment on above: Performed By: #### C BC #### [facility] [address] [place] [address] Dr. Duy James BNPon 08-26-2022 Natriuretic peptide B (Bld) [Mass/Vol] 2516.0 pg/mL Critically high <=900.0 [facility] Comment on above: Performed By: #### B MP #### [facility] [address] [place] [address] Dr. Duy James CBC AUTO DIFFon 08-26-2022 BASO # 0.1 103/ul Normal 0.0-0.1 [facility] [place] Comment on above: Performed By: #### C BC #### [facility] [address] [place] [address] Dr. Duy James Basophils/100 WBC (Bld) 1.2 % Normal 0.2-2.0 [facility] Comment on above: Performed By: #### C BC #### [facility] [address] [place] [address] Dr. Duy James EO # 0.4 103/ul Normal 0.0-0.7 [facility] Comment on above: Performed By: #### C BC #### [facility] [address] [place] [address] Dr. Duy James Eosinophils/100 WBC (Bld) 4.6 % Normal 0.9-7.0 [facility] Comment on above: Performed By: #### C BC #### [facility] [address] [place] [address] Dr. Duy James Erythrocyte distribution width (RBC) [Ratio] 13.2 % Normal 11.0-15.0 [facility] Comment on above: Performed By: #### C BC #### [facility] [address] [place] [address] Dr. Duy James Hematocrit (Bld) [Volume fraction] 41.1 % Critically low 42.0-54.0 [facility] Comment on above: Performed By: #### C BC #### [facility] [address] [place] [address] Dr. Duy James Hemoglobin (Bld) [Mass/Vol] 13.8 g/dL Critically low 14.0-18.0 [facility] Comment on above: Performed By: #### C BC #### [facility] [address] [place] [address] Dr. Duy James IG # 0.03 10e3/ul Normal 0.00-0.03 [facility] [place] [facility] Comment on above: Performed By: #### C BC #### [facility] [address] [place] [address] Dr. Duy James IG % 0.4 % Normal 0.0-0.5 [facility] [place] Comment on above: Performed By: #### C BC #### [facility] [address] [place] [address] Dr. Duy James LYMPH # 2.9 103/ul Normal 1.2-3.8 [facility] [place] Comment on above: Performed By: #### C BC #### [facility] [address] [place] [address] Dr. Duy James Lymphocytes/100 WBC (Bld) 35.3 % Normal 20.5-60.0 [facility] [place] Comment on above: Performed By: #### C BC #### [facility] [address] [place] [address] Dr. Duy James MANUAL DIFF REQ NO Normal [facility] Comment on above: Performed By: #### C BC #### [facility] [address] [place] [address] Dr. Duy James MCH (RBC) [Entitic mass] 28.9 pg Normal 25.9-34.0 [facility] [place] [facility] Comment on above: Performed By: #### C BC #### [facility] [address] [place] [address] Dr. Duy James MCHC (RBC) [Mass/Vol] 33.6 g/dL Normal 29.9-35.2 [facility] [place] Comment on above: Performed By: #### C BC #### [facility] [address] [place] [address] Dr. Duy James MCV (RBC) [Entitic vol] 86.2 fL Normal 80.0-94.0 [facility] [place] Comment on above: Performed By: #### C BC #### [facility] [address] [place] [address] Dr. Duy James MONO # 0.6 103/ul Normal 0.3-0.8 [facility] [place] Comment on above: Performed By: #### C BC #### [facility] [address] [place] [address] Dr. Duy James Monocytes/100 WBC (Bld) 7.1 % Normal 1.7-12.0 [facility] [place] Comment on above: Performed By: #### C BC #### [facility] [address] [place] [address] Dr. Duy James NEUT # 4.2 103/ul Normal 1.4-6.5 [facility] [place] [facility] Comment on above: Performed By: #### C BC #### [facility] [address] [place] [address] Dr. Duy James Neutrophils/100 WBC (Bld) 51.4 % Normal 43.0-75.0 [facility] Comment on above: Performed By: #### C BC #### [facility] [address] [place] [address] Dr. Duy James Platelet mean volume (Bld) [Entitic vol] 10.1 fL Normal 9.5-13.5 [facility] Comment on above: Performed By: #### C BC #### [facility] [address] [place] [address] Dr. Duy James PLT 264 103/ul Normal 150-450 [facility] Comment on above: Performed By: #### C BC #### [facility] [address] [place] [address] Dr. Duy James RBC 4.77 106/ul Normal 4.70-6.10 [facility] Comment on above: Performed By: #### C BC #### [facility] [address] [place] [address] Dr. Duy James WBC 8.2 103/ul Normal 4.0-11.0 [facility] Comment on above: Performed By: #### C BC #### [facility] [address] [place] [address] Dr. Duy James CTA CHEST WO W [...] CODY WAY Date: 2022-08-26 20:19 Normal [facility] CULTURE BLOODon 08-26-2022 Microscopic examination of blood, culture Culture Observations: NO GROWTH AT 5 DAYS. Normal [facility] Comment on above: Performed By: #### B MP #### [facility] [address] [place] [address] Dr. Duy James Covid-19 PCR ([facility])on SARS-CoV-2 (COVID-19) RNA RICKY+probe Ql (Unsp spec) Not detected Normal NOT DETECTED [facility] Comment on above: Result Comment: When [...] for this test is supported by the [place] of [employer] and Human Service's declaration that [...] used). Performed By: #### C BC #### [facility] [address] [place] [address] Dr. Duy James D-DIMERon 08-26-2022 D-DIMER 1.10 mg/L FEU Critically high <=0.59 [facility] Comment on above: Performed By: #### D DIM #### [facility] [address] [place] [address] Dr. Duy James D-DIMER COMMENTS SEE BELOW Normal [facility] Comment on above: Result [...] hospitalization. Performed By: #### D DIM #### [facility] [address] [place] [address] Dr. Duy James INFLUENZA A AND B AGon 08-26 INFLUANEGH SEE BELOW Normal [facility] Comment on above: Result Comment: Nega tive for Flu A protein angiten. Infection due to Flu A cannot be ruled out. Flu A angiten in the sample may be below the detection limit of the test. Performed By: #### I NFLUAB #### [facility] [address] [place] [address] Dr. Duy James INFLUBNEGH SEE BELOW Normal [facility] Comment on above: Result Comment: Nega tive for Flu B protein antigen. Infection due to Flu B cannot be ruled out. Flu B antigen in the sample may be below the detection limit of the test. Performed By: #### I NFLUAB #### [facility] [address] [place] [address] Dr. Duy James INFLUENZA A AG Negative Normal NEGATIVE SEE COMMENT [facility] Comment on above: Performed By: #### I NFLUAB #### [facility] [address] [address] [address] Duy James INFLUENZA B AG Negative Normal NEGATIVE SEE COMMENT [facility] Comment on above: Performed By: #### I NFLUAB #### [facility] [address] [place] [address] Dr. Duy James LACTATE/LACTIC ACIDon 2022 Lactate [Moles/Vol] 1.8 mmol/L Normal 0.4-1.9 [facility] Comment on above: Performed By: #### L ACT #### [facility] [address] [place] [address] Dr. Duy James PROF 14(COMP METB)on 023 Albumin [Mass/Vol] 3.7 g/dL Normal 3.4-5.0 [facility] Comment on above: Performed By: #### B FAMILY RESOURCE COORDINATOR, CMP, HSTROPN #### [facility] [address] [place] [address] Dr. Duy James Albumin/Globulin [Mass ratio] 1.0 {ratio} Normal [facility] Comment on above: Performed By: #### B FAMILY RESOURCE COORDINATOR, CMP, HSTROPN #### [facility] [address] [place] [address] Dr. Duy James ALP [Catalytic activity/Vol] 84 U/L Normal 46-116 [facility] Comment on above: Performed By: #### B FAMILY RESOURCE COORDINATOR, CMP, HSTROPN #### [facility] [address] [place] [address] Dr. Duy James ALT [Catalytic activity/Vol] 103 U/L Critically high 16-63 [facility] Comment on above: Performed By: #### B FAMILY RESOURCE COORDINATOR, CMP, HSTROPN #### [facility] [address] [place] [address] Dr. Duy James Anion gap [Moles/Vol] 15.5 mmol/L Normal [facility] Comment on above: Performed By: #### B FAMILY RESOURCE COORDINATOR, CMP, HSTROPN #### [facility] [address] [address] [address] Duy James AST [Catalytic activity/Vol] 62 U/L Critically high 15-37 [facility] Comment on above: Performed By: #### B FAMILY RESOURCE COORDINATOR, CMP, HSTROPN #### [facility] [address] [address] [address] Duy James Bilirubin [Mass/Vol] 0.3 mg/dL Normal 0.2-1.0 [facility] Comment on above: Performed By: #### B FAMILY RESOURCE COORDINATOR, CMP, HSTROPN #### [facility] [address] [place] [address] Dr. Duy James Calcium [Mass/Vol] 8.8 mg/dL Normal 8.5-10.1 [facility] Comment on above: Performed By: #### B FAMILY RESOURCE COORDINATOR, CMP, HSTROPN #### [facility] [address] [place] [address] Dr. Duy James Chloride [Moles/Vol] 106 mmol/L Normal 98-107 [facility] Comment on above: Performed By: #### B FAMILY RESOURCE COORDINATOR, CMP, HSTROPN #### [facility] [address] [address] [address] Duy James CO2 [Moles/Vol] 25.9 mmol/L Normal 21.0-32.0 [facility] Comment on above: Performed By: #### B FAMILY RESOURCE COORDINATOR, CMP, HSTROPN #### [facility] [address] [place] [address] Dr. Duy James Creatinine [Mass/Vol] 1.32 mg/dL Critically high 0.70-1.30 [facility] Comment on above: Performed By: #### B FAMILY RESOURCE COORDINATOR, CMP, HSTROPN #### [facility] [address] [place] [address] Dr. Duy James EGFR-AF [place] >60 Normal >=60 [facility] Comment on above: Performed By: #### B FAMILY RESOURCE COORDINATOR, CMP, HSTROPN #### [facility] [address] [place] [address] Dr. Duy James EGFR-NON AF [place] 54 mL/min/1.73m2 Critically low >=60 [facility] Comment on above: Performed By: #### B FAMILY RESOURCE COORDINATOR, CMP, HSTROPN #### [facility] [address] [address] [address] Duy James Globulin (S) [Mass/Vol] 3.6 g/dL Normal [facility] Comment on above: Performed By: #### B FAMILY RESOURCE COORDINATOR, CMP, HSTROPN #### [facility] [address] [address] [address] Duy James Glucose [Mass/Vol] 146 mg/dL Critically high 74-106 T [facility] Comment on above: Performed By: #### B FAMILY RESOURCE COORDINATOR, CMP, HSTROPN #### [facility] [address] [place] [address] Dr. Duy James Potassium [Moles/Vol] 4.4 mmol/L Normal 3.5-5.1 [facility] Comment on above: Performed By: #### B FAMILY RESOURCE COORDINATOR, CMP, HSTROPN #### [facility] [address] [place] [address] Dr. Duy James Protein [Mass/Vol] 7.3 g/dL Normal 6.4-8.2 [facility] Comment on above: Performed By: #### B FAMILY RESOURCE COORDINATOR, CMP, HSTROPN #### [facility] [address] [place] [address] Dr. Duy James Sodium [Moles/Vol] 143 mmol/L Normal 136-145 [facility] Comment on above: Performed By: #### B FAMILY RESOURCE COORDINATOR, CMP, HSTROPN #### [facility] [address] [place] [address] Dr. Duy James Urea nitrogen [Mass/Vol] 15.0 mg/dL Normal 7.0-18.0 [facility] Comment on above: Performed By: #### B FAMILY RESOURCE COORDINATOR, CMP, HSTROPN #### [facility] [address] [place] [address] Dr. Duy James Urea nitrogen/Creatinine [Mass ratio] 11.4 mg/mg Normal [facility] Comment on above: Performed By: #### B FAMILY RESOURCE COORDINATOR, CMP, HSTROPN #### [facility] [address] [place] [address] Dr. Duy James TROPONIN, HIGH SENSITIVITYon 08-26-2022 HSTROP 41.1 pg/mL Normal 4.0-76.1 [facility] Comment on above: Result Comment: CUT- OFF POINTS HAVE BEEN ESTABLISHED BASED ON THE FOURTH UNIVERSAL DEFINITIONS OF MYOCARDIAL INFARCTION. THE UPPER REFERENCE LIMIT (URL) OF TROPONIN, DEFINED THE 99TH PERCENTILE OF cTnI DISTRIBUTION IN A REFERENCE POPULATION, HAS BEEN CONFIRMED THE DECISION THRESHOLD FOR [place] DIAGNOSIS. Performed By: #### B MP #### [facility] [address] [place] [address] Dr. Duy James CBC AUTO DIFFon 05-18-2022 BASO # 0.1 103/ul Normal 0.0-0.1 [facility] Comment on above: Performed By: #### C BC #### [facility] [address] [place] [address] Dr. Duy James Basophils/100 WBC (Bld) 1.5 % Normal 0.2-2.0 [facility] Comment on above: Performed By: #### C BC #### [facility] [address] [place] [address] Dr. Duy James EO # 0.3 103/ul Normal 0.0-0.7 [facility] Comment on above: Performed By: #### C BC #### [facility] [address] [place] [address] Dr. Duy James Eosinophils/100 WBC (Bld) 4.7 % Normal 0.9-7.0 [facility] Comment on above: Performed By: #### C BC #### [facility] [address] [place] [address] Dr. Duy James Erythrocyte distribution width (RBC) [Ratio] 12.8 % Normal 11.0-15.0 [facility] Comment on above: Performed By: #### C BC #### [facility] [address] [place] [address] Dr. Duy James Hematocrit (Bld) [Volume fraction] 39.1 % Critically low 42.0-54.0 [facility] Comment on above: Performed By: #### C BC #### [facility] [address] [place] [address] Dr. Duy James Hemoglobin (Bld) [Mass/Vol] 13.2 g/dL Critically low 14.0-18.0 [facility] Comment on above: Performed By: #### C BC #### [facility] [address] [place] [address] Dr. Duy James IG # 0.03 10e3/ul Normal 0.00-0.03 [facility] Comment on above: Performed By: #### C BC #### [facility] [address] [place] [address] Dr. Duy James IG % 0.5 % Normal 0.0-0.5 [facility] Comment on above: Performed By: #### C BC #### [facility] [address] [place] [address] Dr. Duy James LYMPH # 1.4 103/ul Normal 1.2-3.8 [facility] Comment on above: Performed By: #### C BC #### [facility] [address] [place] [address] Dr. Duy James Lymphocytes/100 WBC (Bld) 23.8 % Normal 20.5-60.0 [facility] Comment on above: Performed By: #### C BC #### [facility] [address] [place] [address] Dr. Duy James MANUAL DIFF REQ NO Normal [facility] Comment on above: Performed By: #### C BC #### [facility] [address] [place] [address] Dr. Duy James MCH (RBC) [Entitic mass] 28.8 pg Normal 25.9-34.0 [facility] Comment on above: Performed By: #### C BC #### [facility] [address] [place] [address] Dr. Duy James MCHC (RBC) [Mass/Vol] 33.8 g/dL Normal 29.9-35.2 [facility] Comment on above: Performed By: #### C BC #### [facility] [address] [address] [address] Duy James MCV (RBC) [Entitic vol] 85.2 fL Normal 80.0-94.0 [facility] Comment on above: Performed By: #### C BC #### [facility] [address] [address] [address] Duy James MONO # 0.5 103/ul Normal 0.3-0.8 [facility] Comment on above: Performed By: #### C BC #### [facility] [address] [address] [address] Duy James Monocytes/100 WBC (Bld) 7.8 % Normal 1.7-12.0 [facility] Comment on above: Performed By: #### C BC #### [facility] [address] [address] [address] Duy James NEUT # 3.7 103/ul Normal 1.4-6.5 [facility] Comment on above: Performed By: #### C BC #### [facility] [address] [address] [address] Duy James Neutrophils/100 WBC (Bld) 61.7 % Normal 43.0-75.0 [facility] Comment on above: Performed By: #### C BC #### [facility] [address] [address] [address] Duy James Platelet mean volume (Bld) [Entitic vol] 9.6 fL Normal 9.5-13.5 [facility] Comment on above: Performed By: #### C BC #### [facility] [address] [address] [address] Duy James PLT 199 103/ul Normal 150-450 [facility] Comment on above: Performed By: #### C BC #### [facility] [address] [id number] Duy James RBC 4.59 106/ul Critically low 4.70-6.10 [facility] Comment on above: Performed By: #### C BC #### [facility] [address] [address] [address] Duy James WBC 6.0 103/ul Normal 4.0-11.0 [facility] Comment on above: Performed By: #### C BC #### [facility] [address] [place] [address] Dr. Duy James METHYLMALONIC ACID (MMA)on 0 03-03-2022 Methylmalonic Acid, Serum 232 nmol/L Normal 0-378 [facility] Comment on above: Performed By: #### M MA2 #### [facility] [address] [place] [address] Dr. Duy James CBC AUTO DIFFon 02-25-2022 BASO # 0.1 103/ul Normal 0.0-0.1 [facility] Comment on above: Performed By: #### C BC #### [facility] [address] [place] [address] Dr. Duy James Basophils/100 WBC (Bld) 1.3 % Normal 0.2-2.0 [facility] Comment on above: Performed By: #### C BC #### [facility] [address] [place] [address] Dr. Duy James EO # 0.2 103/ul Normal 0.0-0.7 [facility] Comment on above: Performed By: #### C BC #### [facility] [address] [place] [address] Dr. Duy James Eosinophils/100 WBC (Bld) 4.8 % Normal 0.9-7.0 [facility] Comment on above: Performed By: #### C BC #### [facility] [address] [place] [address] Dr. Duy James Erythrocyte distribution width (RBC) [Ratio] 13.9 % Normal 11.0-15.0 [facility] Comment on above: Performed By: #### C BC #### [facility] [address] [place] [address] Dr. Duy James Hematocrit (Bld) [Volume fraction] 36.2 % Critically low 42.0-54.0 [facility] Comment on above: Performed By: #### C BC #### [facility] [address] [address] [address] Duy James Hemoglobin (Bld) [Mass/Vol] 12.2 g/dL Critically low 14.0-18.0 [facility] Comment on above: Performed By: #### C BC #### [facility] [address] [address] [address] Duy James IG # 0.01 10e3/ul Normal 0.00-0.03 [facility] Comment on above: Performed By: #### C BC #### [facility] [address] [place] [address] Dr. Duy James IG % 0.2 % Normal 0.0-0.5 [facility] Comment on above: Performed By: #### C BC #### [facility] [address] [place] [address] Dr. Duy James LYMPH # 1.3 103/ul Normal 1.2-3.8 [facility] Comment on above: Performed By: #### C BC #### [facility] [address] [place] [address] Dr. Duy James Lymphocytes/100 WBC (Bld) 29.3 % Normal 20.5-60.0 [facility] Comment on above: Performed By: #### C BC #### [facility] [address] [place] [address] Dr. Duy James MANUAL DIFF REQ NO Normal [facility] Comment on above: Performed By: #### C BC #### [facility] [address] [place] [address] Dr. Duy James MCH (RBC) [Entitic mass] 29.5 pg Normal 25.9-34.0 [facility] Comment on above: Performed By: #### C BC #### [facility] [address] [place] [address] Dr. Duy James MCHC (RBC) [Mass/Vol] 33.7 g/dL Normal 29.9-35.2 [facility] Comment on above: Performed By: #### C BC #### [facility] [address] [address] [address] Duy James MCV (RBC) [Entitic vol] 87.7 fL Normal 80.0-94.0 [facility] Comment on above: Performed By: #### C BC #### [facility] [address] [address] [address] Duy James MONO # 0.4 103/ul Normal 0.3-0.8 [facility] Comment on above: Performed By: #### C BC #### [facility] [address] [address] [address] Duy James Monocytes/100 WBC (Bld) 9.4 % Normal 1.7-12.0 [facility] Comment on above: Performed By: #### C BC #### [facility] [address] [place] [address] Dr. Duy James NEUT # 2.5 103/ul Normal 1.4-6.5 [facility] Comment on above: Performed By: #### C BC #### [facility] [address] [place] [address] Dr. Duy James Neutrophils/100 WBC (Bld) 55.0 % Normal 43.0-75.0 [facility] Comment on above: Performed By: #### C BC #### [facility] [address] [place] [address] Dr. Duy James Platelet mean volume (Bld) [Entitic vol] 9.4 fL Critically low 9.5-13.5 [facility] Comment on above: Performed By: #### C BC #### [facility] [address] [place] [address] Dr. Duy James PLT 142 103/ul Critically low 150-450 [facility] Comment on above: Performed By: #### C BC #### [facility] [address] [address] [address] Duy James RBC 4.13 106/ul Critically low 4.70-6.10 [facility] Comment on above: Performed By: #### C BC #### [facility] [address] [address] [address] Duy James WBC 4.6 103/ul Normal 4.0-11.0 [facility] Comment on above: Performed By: #### C BC #### [facility] [address] [place] [address] Dr. Duy James FERRITINon 02-25-2022 Ferritin [Mass/Vol] 274.0 ng/mL Normal 26.0-388.0 [facility] Comment on above: Performed By: #### C BC #### [facility] [address] [place] [address] Dr. Duy James IRON AND TIBCon 02-25-2022 % SATURATION 33.8 % Normal [facility] Comment on above: Performed By: #### C BC #### [facility] [address] [place] [address] Dr. Duy James Iron [Mass/Vol] 97.0 ug/dL Normal 65.0-175.0 [facility] Comment on above: Performed By: #### C BC #### [facility] [address] [place] [address] Dr. Duy James TIBC DIRECT 287.0 ug/dL Normal 250.0-450.0 [facility] Comment on above: Performed By: #### C BC #### [facility] [address] [place] [address] Dr. Duy James VIT B12 AND FOLATEon 022 Cobalamin (Vitamin B12) [Mass/Vol] 817.0 pg/mL Normal 193.0-986.0 [facility] Comment on above: Performed By: #### C BC #### [facility] [address] [place] [address] Dr. Duy James FOLATE 16.90 ng/mL Normal 8.60-58.90 [facility] Comment on above: Performed By: #### C BC #### [facility] [address] [place] [address] Dr. Duy James XR CHEST 2 Von [...] by: ALEXA MCKENZIE Date: 2021-12-28 13:59 Normal [facility] COVID Quick Testingon 2021 Result Negative Screen [facility] [employer] Other Quick Fluon 08-07-2021 FLUAV Ab CF (S) [Titer] Negative Screen [facility] [employer] Other FLUBV Ab CF (S) [Titer] Negative [facility] [employer] Other COVID Quick Testingon 2020 Result Positive Screen [facility] [employer] Other Vital Signs Date Time Vital Sign Value Performing Clinician Facility 02-29-2024 09:55-0400 Body height 177.8 cm [facility] 02-29-2024 09:55-0400 Body mass index (BMI) [Ratio] 33.7 kg/m2 [facility] 02-29-2024 09:55-0400 Body weight 106.65 kg [facility] 02-29-2024 09:55-0400 Diastolic blood pressure 65 mm[Hg] [facility] 02-29-2024 09:55-0400 Heart rate 67 /min [facility] 02-29-2024 09:55-0400 Respiratory rate 12 /min [facility] 02-29-2024 09:55-0400 Systolic blood pressure 151 mm[Hg] [facility] 12-25-2023 07:50-0400 Diastolic blood pressure 66 mm[Hg] [facility] L[facility] [place] 12-25-2023 07:50-0400 Heart rate 57 /min Meghan Lue [place] 12-25-2023 07:50-0400 Mean blood pressure 91 mm[Hg] Meghan Lue [place] 12-25-2023 07:50-0400 Systolic blood pressure 143 mm[Hg] Meghan Lue [place] 12-25-2023 07:49-0400 Heart rate 62 /min Meghan Lue [place] 12-25-2023 07:49-0400 SaO2% (BldA) [Mass fraction] 98 % [facility] Lue [place] 12-25-2023 07:48-0400 Body temperature 98.06 [degF] Meghan Lue [place] 12-25-2023 07:48-0400 Blood Pressure Location Meghan Lue [place] 12-25-2023 07:48-0400 Diastolic blood pressure 61 mm[Hg] Meghan Lue [place] 12-25-2023 07:48-0400 Mean blood pressure 95 mm[Hg] Meghan Lue [place] 12-25-2023 07:48-0400 Systolic blood pressure 164 mm[Hg] Meghan Lue [place] 12-25-2023 07:48-0400 Respiratory rate 16 /min Meghan Lue [place] 11-29-2023 10:55-0400 Blood Pressure Location Meghan Lue [facility] 11-29-2023 10:55-0400 Diastolic blood pressure 74 mm[Hg] Meghan Lue [facility] 11-29-2023 10:55-0400 Heart rate 68 /min Meghan Lue [facility] 11-29-2023 10:55-0400 Respiratory rate 16 /min Meghan Lue [facility] 11-29-2023 10:55-0400 Systolic blood pressure 163 mm[Hg] Meghan Lue [facility] 11-28-2023 08:42-0400 Body height 177.8 cm [facility] 11-28-2023 08:42-0400 Body mass index (BMI) [Ratio] 33.2 kg/m2 [facility] 11-28-2023 08:42-0400 Body weight 105 kg [facility] 11-28-2023 08:42-0400 Diastolic blood pressure 80 mm[Hg] [facility] 11-28-2023 08:42-0400 Heart rate 64 /min [facility] 11-28-2023 08:42-0400 Respiratory rate 12 /min [facility] 11-28-2023 08:42-0400 Systolic blood pressure 188 mm[Hg] [facility] 06-16-2023 10:00-0500 Diastolic blood pressure 92 mm[Hg] Meghan Lue [facility] 06-16-2023 10:00-0500 Mean blood pressure 115 mm[Hg] Meghan Lue [facility] 06-16-2023 10:00-0500 Systolic blood pressure 162 mm[Hg] Meghan Lue [facility] 06-16-2023 09:44-0500 Blood Pressure Location Meghan Lue [facility] 06-16-2023 09:44-0500 Body temperature 97.16 [degF] Meghan Lue [facility] 06-16-2023 09:44-0500 Diastolic blood pressure 88 mm[Hg] Meghan Lue [facility] 06-16-2023 09:44-0500 Heart rate 78 /min Meghan Lue [facility] 06-16-2023 09:44-0500 Systolic blood pressure 144 mm[Hg] Meghan Lue [facility] 06-06-2023 17:10-0500 Diastolic blood pressure 70 mm[Hg] [facility] L[facility] [place] 06-06-2023 17:10-0500 Heart rate 60 /min [facility] L[facility] [place] 06-06-2023 17:10-0500 Respiratory rate 16 /min [facility] L[facility] [place] 06-06-2023 17:10-0500 SaO2% (BldA) [Mass fraction] 100 % [facility] L[facility] [place] 06-06-2023 17:10-0500 Systolic blood pressure 120 mm[Hg] [facility] L[facility] [place] 06-06-2023 17:02-0500 Heart rate 62 /min [facility] [place] 06-06-2023 17:02-0500 SaO2% (BldA) [Mass fraction] 100 % [facility] L[facility] [place] 06-06-2023 17:02-0500 Respiratory rate 16 /min [facility] L[facility] [place] 06-06-2023 16:52-0500 Diastolic blood pressure 56 mm[Hg] [facility] L[facility] [place] 06-06-2023 16:52-0500 Heart rate 60 /min [facility] [place] 06-06-2023 16:52-0500 SaO2% (BldA) [Mass fraction] 97 % [facility] Lue [place] 06-06-2023 16:52-0500 Systolic blood pressure 89 mm[Hg] [facility] Lue [place] 06-06-2023 16:29-0500 Diastolic blood pressure 89 mm[Hg] [facility] Lue [place] 06-06-2023 16:29-0500 Systolic blood pressure 154 mm[Hg] [facility] Lue [place] 06-06-2023 14:00-0500 Blood Pressure Location Meghan Lue [place] 06-06-2023 14:00-0500 Mean blood pressure 84 mm[Hg] Meghan Lue [place] 06-06-2023 14:00-0500 Respiratory rate 18 /min Meghan Lue [place] 05-10-2023 10:54-0500 Blood Pressure Location Meghan Lue [facility] 05-10-2023 10:54-0500 Diastolic blood pressure 76 mm[Hg] Meghan Lue [facility] 05-10-2023 10:54-0500 Heart rate 68 /min Meghan Lue [facility] 05-10-2023 10:54-0500 Respiratory rate 16 /min Meghan Lue [facility] 05-10-2023 10:54-0500 Systolic blood pressure 132 mm[Hg] Meghan Lue [facility] 04-11-2023 11:40-0400 Blood Pressure Location THERESA LONNIE [facility] 04-11-2023 11:40-0400 Diastolic blood pressure 75 mm[Hg] THERESA LONNIE [facility] 04-11-2023 11:40-0400 Heart rate 68 /min THERESA LONNIE [facility] 04-11-2023 11:40-0400 Respiratory rate 16 /min THERESA LONNIE [facility] 04-11-2023 11:40-0400 Systolic blood pressure 134 mm[Hg] THERESA LONNIE [facility] 12-20-2022 10:11-0400 Blood Pressure Location THERESA LONNIE [facility] 12-20-2022 10:11-0400 Diastolic blood pressure 80 mm[Hg] THERESA LONNIE [facility] 12-20-2022 10:11-0400 Heart rate 70 /min THERESA LONNIE [facility] 12-20-2022 10:11-0400 Respiratory rate 16 /min THERESA LONNIE [facility] 12-20-2022 10:11-0400 Systolic blood pressure 140 mm[Hg] THERESA FLEMING [facility] 11-23-2022 08:30-0400 Body height 177.8 cm Gio Ball Other [employer] Other 11-23-2022 08:30-0400 Body mass index (BMI) [Ratio] 32.42 kg/m2 Gio Ball Other [employer] Other 11-23-2022 08:30-0400 Body weight 102.51 kg Gio Ball Other [employer] Other 11-23-2022 08:30-0400 Diastolic blood pressure 69 mm[Hg] Gio Ball Other [employer] Other 11-23-2022 08:30-0400 Respiratory rate 12 /min Gio Ball Other [employer] Other 11-23-2022 08:30-0400 Systolic blood pressure 162 mm[Hg] Gio Ball Other [employer] Other 08-31-2022 10:00-0500 Body height 177.8 cm Gio Ball Other [employer] Other 08-31-2022 10:00-0500 Body mass index (BMI) [Ratio] 33.43 kg/m2 Gio Ball Other [employer] Other 08-31-2022 10:00-0500 Body weight 105.69 kg Gio Ball Other [employer] Other 08-31-2022 10:00-0500 Diastolic blood pressure 80 mm[Hg] Gio Ball Other [employer] Other 08-31-2022 10:00-0500 Respiratory rate 16 /min Gio Cavanaugh Other [facility] [employer] Other 08-31-2022 10:00-0500 SaO2% (BldA) [Mass fraction] 98 % Gio Ball Other [facility] [employer] Other 08-31-2022 10:00-0500 Systolic blood pressure 132 mm[Hg] Gio Cavanaugh Other [facility] [employer] Other 10-26-2021 09:11-0400 Blood Pressure Location Daniel Kern Jr. [facility] 10-26-2021 09:11-0400 Diastolic blood pressure 77 mm[Hg] Daniel Kern Jr. [facility] 10-26-2021 09:11-0400 Heart rate 78 /min Daniel Kern Jr. [facility] 10-26-2021 09:11-0400 Respiratory rate 16 /min Daniel Kern Jr. [facility] 10-26-2021 09:11-0400 Systolic blood pressure 181 mm[Hg] Daniel Kern Jr. [facility] 08-07-2021 11:00-0500 Body height 177.8 cm Gina Starks Other [facility] [employer] Other 08-07-2021 11:00-0500 Body mass index (BMI) [Ratio] 30.13 kg/m2 Gina Starks Other [employer] Other 08-07-2021 11:00-0500 Body temperature 101 [degF] Gina Starks Other [employer] Other 08-07-2021 11:00-0500 Body weight 95.26 kg Gina Starks Other [employer] Other 08-07-2021 11:00-0500 Respiratory rate 18 /min Gina Starks Other [employer] Other 08-07-2021 11:00-0500 SaO2% (BldA) [Mass fraction] 97 % Gina Starks Other [employer] Other 05-24-2021 18:15-0500 Body height 177.8 cm Sybil Rosa Other [employer] Other 05-24-2021 18:15-0500 Body mass index (BMI) [Ratio] 30.85 kg/m2 Sybil Rosa Other [employer] Other 05-24-2021 18:15-0500 Body temperature 96.9 [degF] Sybil Lee Other [employer] Other 05-24-2021 18:15-0500 Body weight 97.52 kg Sybil Rosa Other [employer] Other 05-24-2021 18:15-0500 SaO2% (BldA) [Mass fraction] 91 % Sybil Lee Other [employer] Other Encounters Encounter Date Encounter Type Care Provider Facility Start: 10-09-2024 ambulatory Meghan Brito Facility:[facility] Start: 10-03-2024 ambulatory Meghan Brito Facility:[facility] Start: 09-04-2024 End: 09-04-2024 ambulatory [place] Start: 03-29-2024 End: 03-29-2024 ambulatory Meghan Brito Facility:[facility] Start: 03-29-2024 End: 03-29-2024 Patient encounter procedure Meghan Brito [facility] Start: 03-06-2024 Non-patient / Non-visit DO Heath Cavanaugh Work Phone: [facility] Phys[facility] [place] [employer] Work Phone: Start: 03-06-2024 End: 03-06-2024 ambulatory DO Gio Ball Work Phone: [facility] Work Phone: Start: 03-06-2024 End: 03-06-2024 Departed Referred DO Gio Ball Work Phone: [facility] Start: 03-06-2024 End: 03-06-2024 ambulatory Meghan Brito Facility:[id number] Start: 03-06-2024 End: 03-06-2024 Off-Site Meghan Brito [facility] Start: 03-05-2024 Non-patient / Non-visit DO Heath snider Ball Work Phone: [facility] Physician [facility] [place] [employer] Work Phone: Start: 02-29-2024 End: 02-29-2024 ambulatory [facility] Work Phone: Start: 02-29-2024 End: 02-29-2024 Patient encounter procedure [facility] Work Phone: Start: 02-22-2024 Non-patient / Non-visit [facility] Physician [facility] [place] [employer] Work Phone: Start: 02-12-2024 End: 02-12-2024 ambulatory [place] Start: 02-12-2024 End: 02-12-2024 Encounter for other preprocedural examination [place] Start: 01-12-2024 ambulatory Meghan Brito Facility:[facility] Start: 01-03-2024 Encounter for other preprocedural examination [place] Start: 01-03-2024 End: 01-03-2024 ambulatory [place] Start: 12-25-2023 End: 12-25-2023 ambulatory Meghan Brito [facility] Start: 12-25-2023 End: 12-25-2023 Patient encounter procedure Meghan Brito [place] Start: 11-29-2023 End: 01-03-2024 Pre-admission assessment Meghan MReinier Zafare [place] Start: 11-29-2023 End: 11-29-2023 ambulatory Meghan MReinier Lue Facility:[facility] Start: 11-29-2023 End: 11-29-2023 Patient encounter procedure Meghan Brito [facility] Start: 11-28-2023 End: 11-28-2023 ambulatory [facility] Work Phone: Start: 11-28-2023 End: 11-28-2023 Encounter for general adult medical examination without abnormal findings [facility] Start: 11-28-2023 End: 11-28-2023 Patient encounter procedure [facility] Phys[facility] Work Phone: Start: 11-24-2023 Non-patient / Non-visit [facility] [employer] Work Phone: Start: 07-31-2023 End: 07-31-2023 ambulatory Meghan M. Lue Facility[facility] Start: 07-31-2023 End: 07-31-2023 Patient encounter procedure Meghan Brito [place] Start: 06-30-2023 End: 06-30-2023 ambulatory Meghan M. Lue Facility[facility] Start: 06-30-2023 End: 06-30-2023 Lab Drop off Meghan Bernstein. Charismae [place] Start: 06-30-2023 End: 06-30-2023 ambulatory Meghan M. Lue Facility:[facility] Start: 06-30-2023 End: 06-30-2023 Patient encounter procedure Meghan Brito [facility] Start: 06-22-2023 End: 06-22-2023 ambulatory Gio Cavanaugh Other [facility] [employer] Other Start: 06-22-2023 Telephone encounter Gio BRITTON [facility] Start: 06-21-2023 Telephone encounter Gio BRITTON [facility] Start: 06-21-2023 End: 06-21-2023 ambulatory Meghan M. Charismae [facility] [employer] Other Start: 06-21-2023 End: 06-21-2023 Patient encounter procedure Meghan Zafare [facility] [place] Start: 06-20-2023 End: 06-20-2023 ambulatory Gio Cavanaugh Other [employer] Other Start: 06-20-2023 Telephone encounter Gio Diaz [facility] Start: 06-18-2023 End: 06-18-2023 ambulatory Gio Cavanaugh Other [employer] Other Start: 06-18-2023 Telephone encounter Gio Diaz [facility] Start: 06-16-2023 End: 06-16-2023 ambulatory Meghan M. Lue Facility: [place] Start: 06-16-2023 End: 06-16-2023 Patient encounter procedure Meghan M. Lue [facility] [place] Start: 06-15-2023 End: 06-15-2023 ambulatory Meghan M. Lue Facility:[facility] Start: 06-15-2023 End: 06-15-2023 Patient encounter procedure Meghan M. Lue [facility] [place] Start: 06-14-2023 End: 06-14-2023 ambulatory Meghan M. Lue Facility:[facility] Start: 06-14-2023 End: 06-14-2023 Patient encounter procedure [facility] M. Lue [facility] Start: 06-06-2023 End: 06-07-2023 ambulatory DUY JAMES MD Facility:[id number] Start: 06-06-2023 End: 06-06-2023 Admission to same day surgery center Meghan M. Lue [place] Start: 06-06-2023 End: 06-06-2023 ambulatory Meghan M. Lue [facility] Start: 06-05-2023 End: 06-05-2023 ambulatory Gio Cavanaugh Other [employer] Other Start: 06-05-2023 Telephone encounter Gio Diaz [facility] Start: 05-10-2023 End: 05-10-2023 ambulatory Meghan Brito Facility:[facility] Start: 05-10-2023 End: 05-10-2023 Patient encounter procedure Meghan Brito [facility] Start: 04-28-2023 ambulatory Meghan Brito Facility:[facility] Start: 04-27-2023 End: 04-27-2023 ambulatory Gio Cavanaugh Other [employer] Other Start: 04-27-2023 Telephone encounter Gio Cavanaugh REBA Emily [facility] Start: 04-11-2023 End: 04-11-2023 ambulatory THERESA FLEMING Facility:[facility] Start: 04-11-2023 End: 04-11-2023 Patient encounter procedure THERESA FLEMING [facility] Start: 04-04-2023 End: 04-04-2023 ambulatory Gio Cavanaugh Other [employer] Other Start: 04-04-2023 Telephone encounter Gio Cavanaugh [facility] Start: 04-03-2023 End: 04-03-2023 Patient encounter procedure DO Gio Cvaanaugh Work Phone: [facility] [place] Work Phone: Start: 04-03-2023 End: 04-03-2023 ambulatory DO Gio Cavanaugh Work Phone: [facility] Work Phone: Start: 12-20-2022 End: 12-20-2022 Patient encounter procedure THERESA FLEMING [facility] Start: 12-13-2022 End: 12-13-2022 ambulatory Gio Cavanaugh Other [employer] Other Start: 12-13-2022 Telephone encounter Gio Cavanaugh [facility] Start: 12-12-2022 End: 12-12-2022 ambulatory Gio Cavanaguh Other [employer] Other Start: 12-12-2022 Telephone encounter Gio Cavanaugh [facility] Start: 11-23-2022 End: 11-23-2022 ambulatory Gio Cavanaugh Other [employer] Other Start: 11-23-2022 Encounter for genera l adult medical examination without abnormal findings Gio Cavanaugh [facility] Start: 11-23-2022 Periodic preventive med est patient 65yrs& older Gio Cavanaugh [facility] Start: 11-07-2022 End: 11-08-[address] GIO CAVANAUGH Facility:[facility] Start: 08-31-2022 End: 08-31-2022 ambulatory Gio Cavanaugh Other [employer] Other Start: 08-31-2022 Office outpatient vi sit 25 minutes Gio Cavanaugh [facility] Start: 08-26-2022 End: 08-28-2022 Evaluation and management of inpatient DR DARIUS GIANG . Facility:[facility] Start: 05-18-2022 End: 05-19-[address] GIO CAVANAUGH Facility:[facility] Start: 02-25-2022 End: 02-26-[address] GIO CAVANAUGH Facility:[facility] Start: 01-07-[address] GIO CAVANAUGH Facili ty:[facility] Start: 12-28-2021 End: 12-29-[address] GIO CAVANAUGH Facility:[facility] Start: 11-18-2021 Adult health examination Joseph phillips Mao Other [employer] Other Start: 10-26-2021 End: 10-26-2021 Patient encounter procedure Daniel Kern Jr. [facility] Start: 08-07-2021 End: 08-07-2021 ambulatory Gina Starks Other [employer] Other Start: 08-07-2021 Office outpatient vi sit 15 minutes Gina Starks [facility] Start: 05-24-2021 End: 05-24-2021 ambulatory Sybilsofía Lee Other [employer] Other Start: 05-24-2021 Office outpatient vi sit 15 minutes Sybil Rosa [facility] Procedures Date Procedure Procedure Detail Performing Clinician Start: 07-27-2023 Cystoscopy Meghan Daryl Start: 06-06-2023 Prostate biopsy samp le (specimen) [...] of Treatment Date Care Activity Detail Author [facility] Immunizations Immunization Date Immunization Notes Care Provider Fa cility 05-25-2023 influenza virus vaccine, unspecified formulation [facility] 05-25-2023 influenza, high dose seasonal, preservative-free Gio Cavanaugh Other [facility] [employer] Other 05-25-2023 pneumococcal polysaccharide vaccine, 23 valent Gio Cavanaugh Other [facility] 02-24-2022 influenza virus vaccine, unspecified formulation THERESA FLEMING [facility] 02-24-2022 influenza, high dose seasonal, preservative-free Gio Cavanaugh Other [facility] [employer] Other 11-18-2021 pneumococcal conjuga te vaccine, 13 valent Gio Cavanaugh Other [facility] 09-01-2021 COVID-19 Vaccine Moderna - Documentation Purposes Only Gio Cavanaugh Other [facility] 06-26-2021 pneumococcal conjuga te vaccine, 13 valent Gio Cavanaugh Other [facility] 09-02-2020 SARS-CoV-2 (COVID-19 ) Ad26 vaccine, recombinant Daniel Kern Jr. [facility] 05-03-2019 influenza virus vaccine, split virus (incl. purified surface antigen) Gio Cavanaugh Other [facility] [employer] Other 05-03-2019 influenza virus vaccine, unspecified formulation [facility] 05-09-2018 influenza virus vaccine, split virus (incl. purified surface antigen) Gio Cavanaugh Other [facility] [employer] Other 05-09-2018 influenza virus vaccine, unspecified formulation [facility] Payers Date Payer Category Payer Unknown [id number] 2023 Medicare [id number] 2023 Medicare [id number] 1959 Self-pay 1959 Unknown [id number] 2.16. [id number] 1956 Unknown [id number] 2.16.84 0.1.046880.3.579.2.593 1956 Unknown [id number] 2.16.84 0.1.646856.3.579.2.593 1956 Unknown [id number] 2.16.84 0.1.611971.3.579.2.593 1956 Unknown [id number] 2.16.84 0.1.471351.3.579.2.593 1956 Unknown [id number] 2.16.84 0.1.383013.3.579.2.593 1956 Unknown [id number] 2.16.84 0.1.798685.3.579.2.593 1956 Unknown [id number] 2.16.8 40.1.052642.3.579.2.159 1956 Unknown [id number] 2.16.8 40.1.846866.3.579.2.727 1956 Unknown [id number] 2.16.8 40.1.651004.3.579.2.727 1956 Unknown [id number] 2.16.8 40.1.755317.3.579.2.727 1956 Unknown [id number] 2.16.8 40.1.020771.3.579.2.727 1956 Unknown [id number] 2.16.8 40.1.006425.3.579.2.727 1956 Unknown [id number] 2.16.8 40.1.950527.3.579.2.727 1956 Unknown [id number] 2.16.8 40.1.715369.3.579.2.727 1956 Unknown [id number] 2.16.8 40.1.810020.3.579.2.727 1956 Unknown [id number] 2.16.8 40.1.409416.3.579.2.727 1956 Unknown [id number] 2.16.8 40.1.579794.3.579.2.727 1956 Unknown [id number] 2.16.8 40.1.365700.3.579.2.72 1956 Unknown [id number] 2.16.8 40.1.139397.3.579.2.727 1956 Unknown [id number] 2.16.8 40.1.745786.3.579.2.727 1956 Unknown [id number] 2.16.8 40.1.591379.3.579.2.727 1956 Unknown [id number] 2.16.8 40.1.986718.3.579.2.727 1956 Unknown [id number] 2.16.8 40.1.678823.3.579.2.727 1956 Unknown [id number] 2.16.8 40.1.705657.3.579.2.727 1956 Unknown [id number] 2.16.8 40.1.059380.3.579.2.727 Medicare Private Health Insurance Unknown [id number] 2.16.8 40.1.342698.3.579.2.531 Unknown [id number] 2.16.8 40.1.648219.3.579.2.531 Social History Date Type Detail Facility Start: 10-26-2021 Tobacco smoking status Heavy t obacco smoker (finding) [employer] Other Sex Assigned At Male [employer] Other Start: 12-20-2022 End: 05-10-2023 Tobacco smoking status Ex-smoker (finding) [facility] Start: 06-16-2023 End: 03-29-2024 Tobacco smoking status Never [facility] Start: 12-16-2020 Tobacco smoking stat [place] Smoker (finding) [facility] Start: 1955 Sex Assigned At Male F [facility] Functional Status Date Assessment Result Facility 03-29-2024 Functional Status N/A [facility] 12-25-2023 Functional Status No [facility] 11-29-2023 Functional Status N/A [facility] 07-31-2023 Functional Status N/A [facility] 06-16-2023 Functional Status N/A [facility] 05-16-2023 Functional Status N/A [facility] 05-10-2023 Functional Status N/A [facility] 04-11-2023 Functional Status N/A [facility] 12-20-2022 Functional Status N/A [facility] Clinical Notes 05-24-2021 to 09-04-2024 Note Date & Type Note Facility 09-04-2024 Note [place] [facility] Note Reason for cardiology visit: Follow-up Chief Complaint: Dyspnea on exertion HPI: 09/04/2024 Patient is here today for follow-up visit. He denies any chest pain at rest or with exertion. He admits exertional dyspnea with certain level of exertion. He gained some weight this winter and he has not been active. He admits mild edema of the left lower extremity. He denies orthopnea or paroxysmal nocturnal dyspnea or dizziness or palpitations 02/12/2024 Michael Killian is a 69 y.o. male who is here today for [...] He reports that he quit smoking about 3 years ago. His smoking use included cigarettes. [...] nebulizer solution, 2.5 mg., Disp: , Rfl: amLODIPine (Norvasc) 10 mg tablet, Take 1 tablet (10 mg) by mouth once daily as directed., Disp: 90 tablet, Rfl: 3 carvedilol (Coreg) 6.25 mg tablet, Take 6.25 mg by mouth with breakfast and with evening meal., Disp: , Rfl: folic acid (Folvite) 1 mg tablet, Take 1 tablet by mouth in the morning., Disp: , Rfl: ipratropium-albuteroL (Duo-Neb) 0.5-2.5 mg/3 mL nebulizer solution, INHALE 3ml via NEBULIZER TWICE DAILY NEEDED, Disp: , Rfl: lisinopril 40 mg tablet, Take 40 mg by mouth., Disp: , Rfl: alfuzosin (Uroxatral) 10 mg 24 hr tablet, Take 10 mg by mouth., Disp: , Rfl: Last Recorded Vitals Visit Vitals BP 159/75 (BP Location: Right arm, Patient Position: Sitting) Pulse 58 Ht 1.753 m (5' 9 ) Wt 109 kg (241 lb) SpO2 96% BMI 35.59 kg/m??? Smoking Status Former BSA 2.3 m??? Physical Examination: GENERAL: alert and oriented [...] 48% Normal wall motions Assessment and Plan: Dyspnea on exertion probably due to COPD Stress nuclear test 01/12/2024 showed no evidence of ischemia, the fixed inferior defect most likely due to diaphragmatic attenuation artifact because patient has normal wall motion. Ejection fraction on gated study 48% next Echo in May 2023 showed normal left ventricle systolic function and moderate elevation of right-sided pressure in addition to mild to moderate aortic regurgitation PVCs noted on stress test at rest and during recovery Abnormal EKG showing LVH and nonspecific T wave changes in inferior leads Mild to moderate aortic insufficiency on echo May 2023 Moderate pulmonary hypertension on echo May 2023, probably due to COPD [facility] (more content not included)... [facility] 03-29-2024 Hospital Discharge instructions Patient Education 03/29/2024 [...] urethra. Follow these instructions at home: Take lvcq-idt-hfgaufj and prescription medicines only as told by [...] provider. Document Revised: 12/29/2021 Document Reviewed: 12/29/2021 [employer] Patient Education 2023 [employer]. Follow Up Care 03/07/2024 08:22:06 With:Daryl HAMILTON, LOGAN Villalpando, [facility] Address: [address] [place] [phone] When: Unknown Comments:6 mos [facility] 03-29-2024 Note Patient Education Urology Benign Prostatic [...] Follow these instructions at home: ? Take prll-cqf-umhffdm and prescription medicines only as told by [...] develop side effec (more content not included)... [facility] 02-12-2024 Note [place] [facility] Note Reason for cardiology [...] patien (more content not included)... [facility] 01-03-2024 Note [place] [facility] Note Reason for cardiology [...] mother had diabetes mellitus. His father had [place] at age of 50. Many siblings with [...] me in 3 weeks Glenna Bhardwaj MD, [facility] 12-13-2023 Note [id number] [facility] 11-29-2023 Hospital Discharge instructions Patient Education 11/29/2023 [...] Follow these instructions at home: Medicines Take mrwz-yva-fbchglu and prescription medicines only as told by [...] to keep your urine pale yellow. Take mknp-whz-imgaitl or prescription medicines. Eat foods that are [...] provider. Document Revised: 03/08/2022 Document Reviewed: 03/08/2022 [employer] Patient Education 2022 [employer]. 11/29/2023 11:20:13 Transurethral Resection of the Prostate [...] including vitamins, herbs, eye drops, creams, and xcvz-vsq-hzjoxpk medicines. Any problems you or family members [...] provider tells you to take them. Taking gmpi-oai-dwrvxqs medicines, vitamins, herbs, and supplements. Surgery safety [...] provider. Document Revised: 03/08/2022 Document Reviewed: 03/08/2022 [employer] Patient Education 2022 [employer]. Follow Up Care 08/02/2023 09:34:46 With:Meghan Brito MD, URL, [facility] Address: [address], [facility] [place] [address] [phone] When: Unknown [facility] 07-31-2023 Evaluation + Plan note Extrac rina from: Title: - Clinic HOPD Note Author:Meghan Brito MD Date:07/31/23 Impression and Plan Assessment and Plan: Diagnosis: BPH with urinary obstruction (QXL67-MD N40.1, Discharge, Medical), Pelvic lymphadenopathy (BZC72-SD R59.0, Working, Medical), Chronic prostatitis (OMK09-UO N41.1, Discharge, Medical), Feeling of incomplete bladder emptying (CBN14-MC R39.14, Discharge, Medical), Gross hematuria (ICD10- CM R31.0, Discharge, Medical). Assessment and Plan: Diagnosis: BPH with urinary obstruction ([id number] N40.1, Discharge, Medical), Chronic prostatitis (SEV07-JN N41.1, Discharge, Medical), Feeling of incomplete bladder emptying (VKR52-QX R39.14, Discharge, Medical), Gross hematuria (BAQ74-EH R31.0, Discharge, Medical), Pelvic lymphadenopathy (FXQ04-FC R59.0, Working, Medical). 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 Gross hematuria - after [place] CTU 07/05/23 at [facility] - neg for upper tract filling defects [...] in 4 to 5 months with [facility] [place]02-05-2024 Hospital Discharge instructions Patient Education 07/31/2023 09:05:54 [...] including vitamins, herbs, eye drops, creams, and gmhy-rtl-yqvefzv medicines. Any problems you or family members [...] provider tells you to take them. ?Taking nlgg-idd-oxtemtz medicines, vitamins, herbs, and supplements. Follow your [...] provider. Document Revised: 09/08/2021 Document Reviewed: 09/08/2021 [employer] Patient Education 2022 [employer]. 07/31/2023 09:05:54 Transurethral Resection of the Prostate [...] including vitamins, herbs, eye drops, creams, and qyln-jxt-mgapenm medicines. Any problems you or family members [...] provider tells you to take them. Taking hoez-aae-mevyenp medicines, vitamins, herbs, and supplements. Surgery safety [...] provider. Document Revised: 03/08/2022 Document Reviewed: 03/08/2022 [employer] Patient Education 2022 [employer]. 07/31/2023 09:05:54 EU - Cystoscopy Discharge Instructions [...] Up Care 06/30/2023 10:04:12 With:Meghan Brito Address: [address] [place] [phone] Business (1) When: Unknown Comments:Office to schedule follow up in 3-4 months or call sooner for procedure (pt knows will be done by partner/referred out if during leave) [place]02-05-2024 Note [id number] [facility] 07-31-2023 NoteCystoscopy ? Voiding after the [...] including vitamins, herbs, eye drops, creams, and boya-wkq-cjpgfsj medicines. ? Any problems you or family [...] tells you to take them. ? Taking jljg-jdq-lozeder medicines, vitamins, herbs, and supplements. ? Follow [...] at least 4 week (more content not included)...[facility]12-28-2023 Evaluation note* Encounter Date Diagnosis Assessment Notes Treatment Notes Treatment Clinical Notes May, Simple chronic bronchitis (ICD-10 - J41.0) [employer] Other 12-27-2023 Evaluation note* Encounter Date Diagnosis Assessment Notes Treatment Notes Treatment Clinical Notes May, Simple chronic bronchitis (ICD-10 - J41.0) [employer] Other 12-26-2023 Evaluation note* Encounter Date Diagnosis Assessment Notes Treatment Notes Treatment Clinical Notes May, Simple chronic bronchitis (ICD-10 - J41.0) [employer] Other 12-22-2023 Hospital Discharge instructions Patient Education [...] treatment? Where to find more information The [employer]: www.cancer.org [employer] Association: www.auanet.org Contact a health care [...] provider. Document Revised: 12/06/2021 Document Reviewed: 12/06/2021 [employer] Patient Education 2022 [employer] Follow Up Care 06/16/2023 08:30:52 With:Meghan Brito MD, URL, URO Address: [address] [place] [address] [phone] When: Unknown Comments:6 mos w/ CT and PSA [facility] 12-20-2023 Hospital Discharge instructions Follow Up Care 06/14/2023 08:28:10 With:Meghan Brito MD, LOGAN, URO Address: When: Unknown [facility] 12-12-2023 Hospital Discharge instructions Patient Education 06/06/2023 16:52:41 EU - Transrectal Ultrasound of the Prostate with US guided biopsy Discharge Instructions (CUSTOM) Transperineal?Biopsy of the Prostate Discharge Instructions After the procedure, it is common to have: Pain and discomfort near your rectum, especially while sitting. [place]-colored urine due to small amounts of blood [...] Brito Address:Unknown When: Unknown Comments:Keep scheduled appointment [place]12-12-2023 Evaluation + Plan noteExtracted from: Title:EU -transperineal prostate biopsy Author:Meghan Melgoza MD Date:06/06/23 Impression and Plan Diagnosis Elevated PSA (TEY05-OM R97.20, Discharge, Medical). Diagnosis Elevated PSA (QHZ98-TB R97.20, Discharge, Medical). Future Appointments Appointment Date:06/14/2023 10:30:00 AM Scheduled Provider:Meghan Brito MD Location:[facility] Appointment Type:URO Office Visit [place]11-20-2023 Note [id number] Discharge instructions Follow Up Care 05/10/2023 11:27:04 With:Meghan Brito MD, URL, URO Address: [address] [place] [phone]- [phone] When: Unknown [facility] 11-15-2023 Hospital Discharge instructions Patient [...] treatment? Where to find more information The [employer] Cancer Society: www.cancer.org [employer] U[employer] Association: www.auanet.org Contact a health care [...] provider. Document Revised: 12/06/2021 Document Reviewed: 12/06/2021 [employer] Patient Education 2022 [employer]. 05/10/2023 11:11:23 Benign Prostatic Hyperplasia Benign Prostatic [...] urethra. Follow these instructions at home: Take viei-lbc-upcjfiz and prescription medicines only as told by [...] provider. Document Revised: 12/29/2021 Document Reviewed: 12/29/2021 [employer] Patient Education 2022 [employer]. Follow Up Care 04/12/2023 09:16:25 With:Daryl HAMILTON, LOGAN Villalpando, URO Address: When: Unknown Comments:Sched Transperineal Bx of Prostate [facility] 11-02-2023 Evaluation note* Encounter Date Diagnosis Assessment Notes Treatment Notes Treatment Clinical Notes Apr, Primary hypertension (ICD-10 - I10) [employer] Other 10-17-2023 Hospital Discharge instructions Patient Education [...] treatment? Where to find more information The [employer] Cancer Society: www.cancer.org [employer] U[employer] Association: www.auanet.org Contact a health care [...] provider. Document Revised: 12/06/2021 Document Reviewed: 12/06/2021 [employer] Patient Education 2022 [employer]ix[employer]. Follow Up Care 03/16/2023 16:12:09 With:THERESA FLEMING PA-C, URL Address: [address] [place] [address] [phone] When: Unknown Comments:f/u with MD in 1 month w/ PSA and Select MDX [facility] 10-10-2023 Evaluation note* Encounter Date Diagnosis Assessment Notes Treatment Notes Treatment Clinical Notes Mar, Primary hypertension (ICD-10 - I10) [employer] Other 06-27-2023 Hospital Discharge instructions Patient Education [...] treatment? Where to find more information The [employer] Cancer Society: www.cancer.org [employer] U[employer] Association: www.auanet.org Contact a health care [...] provider. Document Revised: 12/06/2021 Document Reviewed: 12/06/2021 [employer] Patient Education 2022 [employer]. Follow Up Care 10/03/2022 14:27:57 With:LONNIE ELLIOTT, THERESA Merida, URL Address: [address] [place] [address] When: Unknown Comments:Sched Select MDX and MRI of Prostate. [facility] [employer] 06-20-2023 Evaluation note* Encounter Date Diagnosis Assessment Notes Treatment Notes Treatment Clinical Notes Nov, Cigarette nicotine dependence in remission (ICD-10 - F17.211) Started at age 19, quit age 66, 1ppd. LDCT w/o nodules - 11/2022 [employer] Other 06-19-2023 Evaluation note* Encounter Date Diagnosis Assessment Notes Treatment Notes Treatment Clinical Notes Nov, Simple chronic bronchitis (ICD-10 - J41.0) Nov, Cigarette nicotine dependence in remission (ICD-10 - F17.211) Started at age 19, quit age 66, 1ppd. LDCT w/o nodules - 11/2022 [employer] Other 05-31-2023 Evaluation note* Encounter Date Diagnosis [...] Z12.5) Yearly MARIZA and PSA, f/u Urology [employer] Other 03-08-2023 Evaluation note* Encounter Date Diagnosis [...] in remission (ICD-10 - F17.211) Continue abstinence [employer] Other 05-03-2022 Hospital Discharge instructions Patient Education [...] urethra. Follow these instructions at home: Take jkcr-uym-onjsfvj and prescription medicines only as told by [...] 06/12/2006 Document Revised: 05/07/2019 Document Reviewed: 07/17/2017 [employer] Patient Education [employer] Devices Follow Up Care 10/22/2020 09:07:58 With:Erlin Alonso MD, Daniel Tse URO Address: [facility] [address] [place] [address]- When:10/26/2022 Comments:with PSA [facility] 02-12-2022 Evaluation note* Encounter Date Diagnosis [...] Patient care instructions given in writting by [facility] document [employer] Other 11-29-2021 Evaluation note* Encounter Date Diagnosis Assessment Notes Treatment Notes Treatment Clinical Notes Apr, Contact with and (suspected) exposure to other viral communicable diseases (ICD-10 - Z20.828) Apr, COVID-19 (ICD-10 - U07.1) Today you tested positive for the COVID virus. This mean you need to follow all CDC quarantine guidelines [facility] at [facility]. It is important to rest, increase [...] Patient care instructions given in writting by [facility] [facility] document. [employer] Other Evaluation + Plan note Future Appointments Appointment Date:11/01/2022 08:15:00 AM Scheduled Provider:Daniel Kern Jr., MD Location:[facility] Appointment Type:URO Office Visit Diagnostic Tests Pending * PSA Total 10/26/21 [facility] evaluation + Plan note Future Appointments Appointment Date:04/28/2023 08:15:00 AM Scheduled Provider:Meghan Brito MD Location:[facility] Appointment Type:URO Office Visit Diagnostic Tests Pending * PSA Total 04/11/23 [facility] evaluation + Plan note Future Appointments Appointment Date:06/06/2023 02:30:00 PM Scheduled Provider: Location:[facility] Surgical Services Appointment Type:Surgery FT Appointment Date:06/14/2023 10:30:00 AM Scheduled Provider:Meghan Brito MD Location:[facility] Appointment Type:URO Office Visit [facility] evaluation + Plan note Future Appointments Appointment Date:06/15/2023 03:30:00 PM Scheduled Provider:Meghan Brito MD Location:[facility] Appointment Type:URO Office Visit [facility] evaluation + Plan note Future Appointments Appointment Date:06/21/2023 08:45:00 AM Scheduled Provider:Meghan Brito MD Location:[facility] Appointment Type:URO Office Visit [facility] Evaluation + Plan note Future Appointments Appointment Date:06/30/2023 09:15:00 AM Scheduled Provider: Location:[facility] Appointment Type:URO Nurse Visit Diagnostic Tests Pending * PSA Free & Total 06/16/23 [facility] Evaluation + Plan note Future Appointments Appointment Date:06/30/2023 09:15:00 AM Scheduled Provider: Location:[facility] Appointment Type:URO Nurse Visit [facility] evaluation + Plan note Future Appointments Appointment Date:07/31/2023 08:30:00 AM Scheduled Provider: Location:[facility] Urology Surgical Services Appointment Type:Urology FT [facility] Evaluation + Plan note Future Appointments Appointment Date:07/31/2023 08:30:00 AM Scheduled Provider: Location:[facility]rology Surgical Services Appointment Type:Urology FT Diagnostic Tests Pending * Urine Cytology ([facility]) 06/30/23 [place] + [place] note Future Appointments Appointment Date:12/25/2023 07:30:00 AM Scheduled Provider: Location:[facility] Surgical Services Appointment Type:Surgical PAT FT Appointment Date:01/02/2024 08:00:00 AM Scheduled Provider: Location:[facility] Surgical Services Appointment Type:Surgery FT [facility] evaluation + Plan note Future Appointments Appointment Date:01/02/2024 08:00:00 AM Scheduled Provider: Location:[facility] Surgical Services Appointment Type:Surgery FT Appointment Date:01/12/2024 08:15:00 AM Scheduled Provider:Meghan Brito MD Location:[facility] Appointment Type:URO Office Visit [place] note Future Appointments Appointment Date:10/03/2024 08:00:00 AM Scheduled Provider:Meghan Brito MD Location:[facility] Appointment Type:URO Office Visit [facility] evaluyvcaa noteNo assessment information available [facility] Work Phone: Evaluairwf noteNo InformationNort Movellas Other evaluation note* Diagnosis Onset Date Resolution Status Anemia acute Benign prostatic hyperplasia with lower urinary tract symptoms acute Chronic bronchitis acute Chronic kidney disease acute Elevated PSA acute Hypercholesterolemia acute Hypertension acute Nicotine addiction acute Screening PSA (prostate specific antigen) acute Welcome to Medicare preventive visit noneactive [facility] Work Phone: Evaluation note* Diagnosis Onset Date Resolution Status Acute gout acute Benign prostatic hyperplasia with lower urinary tract symptoms acute Hypertension acute [facility] Work Phone: Hisawxq general Narrative - Reported* Type Description Date Medical History high blood pressure Medical History high cholesterol [employer] Other Histwzu general Narrative - Reported* Type Description Date [...] HERNIA 1989 Hospitalization History SEE SURGICAL HX [employer] Other Hispdfw general Narrative - Reported* Type Description Date [...] HERNIA 1989 Hospitalization History SEE SURGICAL HX [employer] Other Hospital course Narrative No data available for this section [facility] [place] [facility] Discharge instructions No data available for this section [facility] [employer] progress note No data available for this section [facility] Nas Summary Purpose Family History No Family [...] content) DATE CREATED AUTHOR 11/08/2022 [facility] DATE CREATED AUTHOR AUTHOR'S ORGANIZ ATION 06/17/2023 [facility] DATE CREATED AUTHOR AUTHOR'S ORGANIZ ATION 12/25/2023 [facility] DATE CREATED AUTHOR AUTHOR'S ORGANIZ ATION 12/26/2023 [facility] DATE CREATED AUTHOR AUTHOR'S ORGANIZ ATION 03/17/2024 [facility] DATE CREATED AUTHOR AUTHOR'S ORGANIZ ATION 08/17/2024 [facility] DATE CREATED AUTHOR AUTHOR'S ORGANIZ ATION 09/07/2024 [facility] Patient Care team informatio n (unrecognized section and content) Team Status: Active Member Role Status Dates Gio Cavanaugh , DO Primary Care Provider Active Team Status: [...] Cavanaugh , DO Primary Care Provider Active Theresa Fleming [...] , DO Primary Care Provider Active Start: March 06, 2024 End: March 06, 2024 Meghan Brito MD Attending Provider Active Start : March 06, 2024 End: March 06, 2024 Team Status: Active Member Role Status Dates Gio Cavanaugh , DO Primary Care Provider Active Start: March [...] BE BASED ON THE PRIMARY CLINICAL RECORDS. [facility]. provides no warranty or guarantee of the accuracy or completeness of information in this document.
--- NOTE | 2024-09-12 08:00 | CA_ITS ---
Patient Name: RUSSELL SANCHEZ MR#: [id number] : 1955 Exam Date: 09/12/2024 Ordering Doctor: DR. GLENNA LAKHANI M.D. ECHOCARDIOGRAM REPORT PROCEDURE: CA ECHO DOPPLER COMPLETE INDICATIONS: Dyspnea on exertion, aortic valve insufficiency, COPD, hypertension COMPARISON: None. DESCRIPTION: COMPLETE ECHOCARDIOGRAM Real-time transthoracic echocardiography with 2D, M-mode, spectral and color flow Doppler performed. QUALITY: Technical quality was good. LEFT VENTRICLE: Mild dilatation. Thickened septal wall. Normal systolic function. LV EF: Calculated left ventricular ejection fraction is 57%. Normal left ventricular ejection fraction, (>55%). DIASTOLIC: Grade II diastolic dysfunction. ATRIAL SEPTUM: Visually appears intact. LEFT ATRIUM: Mild dilatation. RIGHT ATRIUM: Moderate dilatation. RIGHT VENTRICLE: Normal chamber size. Normal right ventricular systolic function. TRICUSPID VALVE: Normal mobility and thickness. No stenosis with mild regurgitation. Doppler studies reveal moderately (45-60) elevated right sided pressures. RVSP 54 mmHg MITRAL VALVE: Normal mobility and thickness. No evidence of mitral valve stenosis. There is no mitral annular calcification. Mild mitral regurgitation. AORTIC VALVE: Normal trileaflet appearance. No visible sclerosis. Normal leaflet mobility. No evidence of aortic valve stenosis. Mild to moderate aortic regurgitation. AORTIC ROOT: Normal diameter and appearance. Ascending aorta is normal in size. PULMONIC VALVE: Normal thickness and mobility. No stenosis. Mild regurgitation. PERICARDIUM: No evidence of pericardial effusion. IVC: Collapses with inspirations. IVC is dilated (2.3 cm) PLEURA: CONCLUSION: 1. Left ventricular exhibits mild eccentric hypertrophy with normal systolic function. Estimated LVEF is 55 to 60%. 2. Normal regular size and systolic function. 3. Grade 2 diastolic dysfunction. 4. Mild to moderate biatrial dilatation. 5. Mild to moderate aortic regurgitation. 6. Mild mitral, tricuspid and pulmonic regurgitation. 7. Moderately elevated right-sided pressures. RVSP is 54 mmHg. Adult Echocardiography Procedure Report Left Ventricle LVEDD (3.7 - 5.6 cm): 6.00 cm LVESD (2.2 - 4.0 cm): 4.56 cm LVIVS thickness (0.6 - 1.2 cm): 1.29 cm LVPW thickness (0.5 - 1.0 cm): 0.91 cm e': 0.08 m/s E - e': 8.89 LVOT Max Gradient: 3.25 mm[Hg] LVOT Area (cm2): 0.90 m/s Peak Velocity (LVOT): 0.90 m/s Mean Velocity (LVOT): 0.64 m/s LVOT Diameter 2.46 cm Left Atrium LA Volume Index (2D A2C): 42.85 ml/m2 Left Atrium Systolic Dimension: 4.19 cm Mitral Valve MV E to A Ratio: 1.22 Mitral Valve A-Wave Peak Velocity: 0.60 m/s Mitral Valve E-Wave Peak Velocity: 0.73 m/s Right Ventricle Aorta AO Root Diam: 4.10 cm Ascending Ao Diam: 3.22 cm Aortic Valve AoV Area (Peak Micah): 3.81 cm2, 3.81 cm2 AoV Area (VTI): 3.95 cm2, 3.95 cm2 Deceleration Mcintosh: 1.52 m/s2 Pressure Half-Time: 680.07 ms Peak Velocity(Antegrade Flow): 1.12 m/s Peak Gradient(Antegrade Flow): 5.03 mm[Hg] Mean Velocity(Antegrade Flow): 0.72 m/s Mean Gradient(Antegrade Flow): 2.45 mm[Hg] Velocity Time Integral: 28.24 cm Tricuspid Valve Peak Velocity (Regurgitant Flow): 3.21 m/s, 3.38 m/s, 3.17 m/s Pulmonic Valve Mean Gradient: 2.31 mm[Hg] Mean Velocity: 0.72 m/s Peak Velocity: 1.11 m/s, 0.92 m/s Peak Gradient: 3.35 mm[Hg], 4.92 mm[Hg] Right Atrium Right Atrium Systolic Pressure: 69.56 ml, 69.56 ml Dictated by: Basim Santos M.D. on 09/12/2024 at 18:08 Approved by: Basim Santos M.D. on 09/12/2024 at 18:12
== END 2024-09-12 07:44 | disposition home or self-care (01) ==
LOC: CARD 07:43
PROVIDERS: PCP Internal Medicine; Visit Provider Internal Medicine Cardiovascular Disease
DX: R06.09 Other forms of dyspnea (principal); I35.1 Nonrheumatic aortic (valve) insufficiency
CPT/HCPCS: 93306

== ENCOUNTER 2024-10-04 08:29 | Outpatient (OUT) | payer MEDICARE, SELFPAY ==
--- OUTSIDE RECORDS SUMMARY | 2024-10-04 08:40 | XMS_ITS | CCD ---
Author Organization [facility] Care Team Providers Care Sand Bobber Name Role Phone GIO CAVANAUGH Primary Care Physician Sybil Lee Unavailable Gina Starks Unavailable Gio Cavanaugh Unavailable MOA, DR POWERS Admitting Unavailable BALL, DR POWERS [...] Unavailable Mao, DO Powers Primary Care Provider [phone] EARL Fleming Attending Provider ERIKA HAMILTON, DUY [...] Unavailable DO Gio Cavanaugh Primary Care Provider MD Meghan Brito Attending Provider Gio Cavanaugh Primary Care Unavailable Lue, Meghan M Admitting Unavailable Lue, Meghan M Attending Unavailable Lonnie, Theresa E Attending Unavailable Lonnie, Theresa E Admitting Unavailable Gio Cavanaugh Primary Care Unavailable KAR, SAMAR Attending Unavailable KAR, SAMAR Attending Unavailable KAR, SAMAR Attending Unavailable Lue, Meghan M. Attending Unavailable Lue, Meghan M. Referring Unavailable Lue, Meghan M. Admitting Unavailable Lue, Meghan M. Referring Unavailable Lue, Meghan M. Attending Unavailable Lue, Meghan M. Attending Unavailable Lue, Meghan M. Attending Unavailable Lue, Meghan M. Attending Unavailable Allergies Allergy Classification Reported Allergen(s) Allergy Type Date of Onset Reaction(s) Facility (20 sources) Cephalexin; Translations: [cephalexin] Drug Allergy 04-06-20 20 Unknown (qualifier value), Dyspnea (finding) [employer] Other (20 sources) Penicillins; Translations: [penicillins] Drug allergy 08-07-19 16 Unknown (qualifier value), Dyspnea (finding) [facility] (2 sources) Penicillin V Drug Allergy rash/cough [facility] Other (13 sources) Cephalexin; Translations: [Keflex] Drug Allergy 08-07-19 16 rash/cough [facility] (11 sources) Penicillin Drug Allergy rash/cough [employer] Other (7 sources) Keflex *CEPHALOSPORINS* Propensity to adverse reactions 02-29-20 Unknown [employer] Other (2 sources) Penicillin G Benzathine & Proc Drug allergy 02-29-20 Unknown [employer] Other (2 sources) patient allergy list reviewed by nurse or physicia Propensity to adverse reactions 03-02-20 Comment:Done [employer] Other (4 sources) Cephalosporins (Antibiotic); Translations: [Cephalosporins] Allergy to substance 11-28-19 Unknown Reaction [facility] (1 source) Cephalexin Drug Allergy 02-29-20 [facility] Repository Medications Current Medications Medication [...] Daily, # 90 tab(s), Refills(s) 3, Pharmacy: [facility], 180, cm, 06/16/23 9:50:00 EST, Height/Length Dosing, 108.2, kg, 06/16/23 9:50:00 EST, Weight Dosing Start Date: 07/28/23 Status: Ordered Start: 01-30-2023 take 1 tablet by chris once daily alfuzosin 10 mg ER Tab 10 mg = 1 tab(s), Oral, Daily, # 30 tab(s), Refills(s) 5, Pharmacy: [facility], 180, cm, 12/20/22 10:13:00 EDT, Height/Length Dosing, 102.5, kg, 12/20/22 10:13:00 EDT, Weight Dosing Start Date: 01/30/23 Status: Ordered Start: 07-14-2022 take 1 tablet by chris once daily alfuzosin 10 mg ER Tab 10 mg = 1 tab(s), Oral, Daily, # 30 tab(s), Refills(s) 5, [facility]acy: [id number], 180, cm, 10/26/21 9:12:00 EDT, Height/Length Dosing, 95.2, kg, 10/26/21 9:12:00 EDT, Weight Dosing Start Date: 07/14/22 Status: Ordered Start: 07-08-2021 take 1 tablet by chris once daily alfuzosin 10 mg ER Tab 10 mg = 1 tab(s), Oral, Daily, # 30 tab(s), Refills(s) 11, [facility]: [facility], 180, cm, 07/08/21 15:57:00 EST, [...] day(s), # 2 tab(s), Refills(s) 0, Pharmacy: [facility], 180, cm, 05/10/23 10:56:00 EST, Height/Length Dosing, 102, kg, 05/10/23 10:56:00 EST, Weight Dosing Start Date: 05/10/23 Stop Date: 05/11/23 Status: Ordered diazePAM 10 mg oral tablet (4 sources) Benzodiazepine Start: 05-10-2023 Valium 10 mg Tab 10 mg = 1 tab(s), Oral, Once, take 30 minutes prior to procedure, # 1 tab(s), Refills(s) 0, Pharmacy: [facility], 180, cm, 05/10/23 10:56:00 EST, Height/Length [...] at 11pm Orally BID for 1 days BIN:[id number] PCN: [employer] GROUP:[id number] ID:[id number] October, Not-Taking/PRN Start: 11-17-2020 Plenv[facility] 140 GM dose 1 pouch at 4pm, dose 2 pouch A & B at 11pm Orally BID for 1 days BIN:[id number] PCN: [employer] GROUP:[id number] ID:[id number] October, Not-Taking Start: 11-17-2020 Plenvu 140 GM dose 1 pouch at 4pm, dose 2 pouch A & B at 11pm Orally BID for 1 days BIN:[id number]: CNRXGROUP:[id number] October, Not-Taking Start: 11-17-2020 Plenvu 140 GM dose 1 pouch at 4pm, dose 2 pouch A & B at 11pm Orally BID for 1 days BIN:[id number]: CNRXGROUP:[id number] October, Active methylPREDNISolone 4 mg oral tablet [...] 01-29-2019 Chronic Other aftercare (1 source) 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; Translations: [OTH MD PSYCHIATRY CURRENT DRUG THERAPY] Onset: 08-30-2022 Episodic Other aftercare (2 sources) Long-term current use of drug therapy; Translations: [Other halfway (current) drug therapy] Episodic Other and unspecified [...] Range Facility Office Visiton 09-04-2024 Follow-up visit [id number] Michael Killian 1955 M Date Provider Department Center 09/04/2024 02308-OLTDTEGLENNA BHARDWAJ [facility] Family History Problem Relation Age of Onset Diabetes Mother Heart attack Father Family Status - Relation Status Age at Mother Father Level of Service:64680 IN OFFICE/OUTPATIENT ESTABLISHED MOD MDM 30 MIN Reason for Visit and Comments: 6 month follow up [Other] Heart Murmur [124] Hyperlipidemia [182] Hypertension [761197] Normal [facility] Ambulatory Visit Summaryon 1 Ambulatory Visit Summary [...] Meghan Brito MD Where: [facility] [address] [place] [address]- You Need to Schedule the Following Appointments Follow Up with Daryl HAMILTON, Meghan Tucker, URL, URO When: Comments: 6 mos Where: [address] [place] [address] [phone] Medications What How Much When Why Instructions [...] any denice (more content not included)... Normal [facility] Urology Office/Clinic Noteon 03-29-2024 Urology Office/Clinic Note [...] unspecified) Prost (more content not included)... Normal [facility] Comment on above: Result Comment: [...] medication increase. New RX sent to pharmacy. [facility] 03-06-2024 L Specimen: [id number] Received: 03/07/24 Status: VIJAY Pulido Num: [id number] Spec Type: Surgical Subm Dr: Meghan Brito MD Tissues: A Prostate - Except Radical Resection, Tur, or Needle Biopsy (PROSTATE TISSUE) Procedures: HE/20, Gross/Micro L5 Age/ Patient Sex Location Account Attending Physician Michael Killian 68/M LABELL [id number] Meghan Brito MD SPEC NUM: [id number] RECD: 03/07/24 STATUS: [facility] NUM: [id number] FANNIE: 03/06/[address]: Meghan Brito MD ENTERED: 03/07/[address]: Madeline Lovell SPEC TYPE: Surgical DEPT: BERRY ARGUELLES ENTERED BY: [id number] RECV BY: [id number] ORDERED: HE/20, Gross/Micro L5 ORDERED: , Gross/Micro [...] cm in aggregate, and weighing 35.4 g. Crane Helper sections are submitted in cassettes A1- A20 DM Specimen: [id number] Received: 03/07/24 Status: VIJAY Pulido Num: [id number] Spec Type: Surgical Subm Dr: Meghan Brito MD Tissues: A Prostate - Except Radical Resection, Tur, or Needle Biopsy (PROSTATE TISSUE) Procedures: , Gross/Micro L5 Patient: Michael Killian [id number] (Continued) Specimen: [id number] Received: 03/07/24 (Continued) Signed (signature on file) Saad James MD 03/14/24 1541 Specimen: [id number] Received: 03/07/24 Status: VIJAY Pulido Num: [id number] Spec Type: Surgical Subm Dr: Meghan Brito MD Tissues: A Prostate - Except Radical Resection, Tur, or Needle Biopsy (PROSTATE TISSUE) Procedures: /20, Gross/Micro L5 Patient: Michael Killian [id number] (Continued) Specimen: [id number] Received: 03/07/24 (Continued) Microscopic Description Microscopic examinations are performed supporting the above interpretation CPT Codes 39526 Specimen: [id number] Received: 03/07/24 Status: VIJAY [place] Num: [id number] Spec Type: Surgical Subm Dr: Meghan Brito MD Tissues: A Prostate - Except Radical Resection, Tur, or Needle Biopsy (PROSTATE TISSUE) Procedures: PAUL/Neha, Gross/Micro L5 Patient: Michael Killian [id number] (Continued) Signed (signature on file) Saad James MD 03/14/24 1541 Normal [facility] Laboratory - Chemistry and C hemistry - challengeon 03-06-2024 Chloride [Moles/Vol] 104 mmol/L 98-107 [facility] CO2 [Moles/Vol] 32.5 mmol/L High 21.0-32.0 [facility] Potassium [Moles/Vol] 4.5 mmol/L 3.5-5.1 [facility] Sodium [Moles/Vol] 136 mmol/L 136-145 [facility] Serum or plasma anion gap de terminationon 03-06-2024 Anion gap [Moles/Vol] 4.0 mmol/L [facility] Basophils Auto (Bld) [#/Vol] on 03-05-2024 Basophils (Bld) [#/Vol] 0.0 10 3/uL 0.0-0.1 [facility] Basophils/100 WBC Auto (Bld) on 03-05-2024 Basophils/100 WBC (Bld) 0.4 % 0.2-2.0 [facility] Eosinophils/100 WBC Auto (Bl d)on 03-05-2024 Eosinophils/100 WBC (Bld) 0.7 % Low 0.9-7.0 [facility] Erythrocyte distribution wid th Auto (RBC) [Ratio]on 03-05-2024 Erythrocyte distribution width (RBC) [Ratio] 12.9 % 11.0-15.0 [facility] Hematocrit Auto (Bld) [Volum e fraction]on 03-05-2024 Hematocrit (Bld) [Volume fraction] 40.6 % Low 42.0-54.0 [facility] Hemoglobin [Mass/volume] in Bloodon 03-05-2024 Hemoglobin (Bld) [Mass/Vol] 13.8 g/dL Low 14.0-18.0 [facility] Iron binding capacity [Mass/ volume] in Serum or Plasmaon 03-05-2024 Iron binding capacity [Mass/Vol] 318.0 ug/dL 250.0-450.0 [facility] Iron saturation [Mass Fracti on] in Serum or Plasmaon 03-05-2024 Iron saturation [Mass fraction] 24.5 % [facility] Laboratory - Chemistry and C hemistry - challengeon 03-05-2024 Cobalamin (Vitamin B12) [Mass/Vol] 477 pg/mL 232-1245 [facility] Comment on above: Performed at: [facility] [place], [place] [id number] Director: Alexi Mobley PhD, Phone: [phone] Ferritin [Mass/Vol] 270.0 ng/mL 26.0-388.0 [facility] Iron [Mass/Vol] 78.0 ug/dL 65.0-175.0 [facility] Laboratory - Hematology and Cell countson 03-05-2024 Immature granulocytes/100 WBC (Bld) 0.7 % High 0.0-0.5 [facility] Leukocytes [#/volume] correc rina for nucleated erythrocytes in Blood by Automated counon 03-05-2024 WBC corrected for nucl RBC Auto (Bld) [#/Vol] 7.4 10 3/uL 4.0-11.0 [facility] Lymphocytes Auto (Bld) [#/Vo l]on 03-05-2024 Lymphocytes (Bld) [#/Vol] 1.3 10 3/uL 1.2-3.8 [facility] Lymphocytes/100 WBC Auto (Bl d)on 03-05-2024 Lymphocytes/100 WBC (Bld) 17.5 % Low 20.5-60.0 [facility] MCH Auto (RBC) [Entitic mass ]on 03-05-2024 MCH (RBC) [Entitic mass] 29.9 pg 25.9-34.0 [facility] MCHC Auto (RBC) [Mass/Vol]on 03-05-2024 MCHC (RBC) [Mass/Vol] 34.0 g/dL 29.9-35.2 [facility] MCV Auto (RBC) [Entitic vol] on 03-05-2024 MCV (RBC) [Entitic vol] 88.1 fL 80.0-94.0 [facility] Monocytes Auto (Bld) [#/Vol] on 03-05-2024 Monocytes (Bld) [#/Vol] 0.4 10 3/uL 0.3-0.8 [facility] Monocytes/100 WBC Auto (Bld) on 03-05-2024 Monocytes/100 WBC (Bld) 6.0 % 1.7-12.0 [facility] Neutrophils Auto (Bld) [#/Vo l]on 03-05-2024 Neutrophils (Bld) [#/Vol] 5.5 10 3/uL 1.4-6.5 [facility] Neutrophils/100 WBC Auto (Bl d)on 03-05-2024 Neutrophils/100 WBC (Bld) 74.7 % 43.0-75.0 [facility] No Panel Informationon 03-05 Eosinophils # (Auto) 0.1 10 3/uL 0.0-0.7 [facility] Folate 7.60 ng/mL Low 8.60-58.90 [facility] Immature Granulocyte # (Auto) 0.05 10 3/uL High 0.00-0.03 [facility] Platelet mean volume Auto (B ld) [Entitic vol]on 03-05-2024 Platelet mean volume (Bld) [Entitic vol] 10.0 fL 9.5-13.5 [facility] Platelets Auto (Bld) [#/Vol] on 03-05-2024 Platelets (Bld) [#/Vol] 193 10 3/uL 150-450 [facility] RBC Auto (Bld) [#/Vol]on RBC (Bld) [#/Vol] 4.61 10 6/uL Low 4.70-6.10 [facility] Estimated glomerular filtrat ion rate (GFR) non- Americanon 02-22-2024 GFR/1.73 sq M.predicted among non-blacks MDRD (S/P/Bld) [Vol rate/Area] mL/min/{1.73_m2} >=60 [facility] Laboratory - Chemistry and C hemistry - challengeon 02-22-2024 Calcium [Mass/Vol] 9.0 mg/dL 8.5-10.1 [facility] Chloride [Moles/Vol] 104 mmol/L 98-107 [facility] CO2 [Moles/Vol] 27.5 mmol/L 21.0-32.0 [facility] Creatinine [Mass/Vol] 1.07 mg/dL 0.70-1.30 [facility] GFR/1.73 sq M.predicted MDRD (S/P/Bld) [Vol rate/Area] mL/min/{1.73_m2} >=60 [facility] Glucose [Mass/Vol] 114 mg/dL High 74-106 [facility] Potassium [Moles/Vol] 4.2 mmol/L 3.5-5.1 [facility] Sodium [Moles/Vol] 139 mmol/L 136-145 [facility] Urea nitrogen [Mass/Vol] 16.0 mg/dL 7.0-18.0 [facility] Urea nitrogen/Creatinine [Mass ratio] 15.0 mg/mg [facility] Serum or plasma anion gap de termination02-22-2024 Anion gap [Moles/Vol] 11.7 mmol/L [facility] 36on 02-12-[address] Bhardwaj: [...] in clinic this morning. Normal [facility] Office Visiton 02-12-2024 Follow-up visit [id number] Michael Killian 1955 M Date Provider Department Center 02/12/2024 GLENNA RAMIREZ Family History Problem Relation Age of Onset Diabetes Mother Heart attack Father Family Status - Relation Status Age at Mother Father Level of Service:08973 IN OFFICE/OUTPATIENT ESTABLISHED MOD MDM 30 MIN Normal [facility] 36on 01-30-2024 36 Patient had stress test last month for surgery clearance. It's scanned into social media developer. Can you please review? Thanks! Normal [facility] Office Visiton 01-03-2024 Follow-up visit [id number] Michael Killian 1955 M Date Provider Department Center 01/03/2024 GLENNA RAMIREZ Family History Problem Relation Age of Onset Diabetes Mother Heart attack Father Family Status - Relation Status Age at Mother Father Level of Service:10148 IN OFFICE/OUTPATIENT NEW MODERATE MDM 45 MINUTES Normal [facility] BMPon 12-25-2023 Anion gap [Moles/Vol] 9 mmol/L Normal 6-16 [facility] Comment on above: Performed By: #### 2 [id number] #### [facility] [address] [place] [address] Calcium [Mass/Vol] 9.4 mg/dL Normal 8.9-11.1 [facility] Comment on above: Performed By: #### 2 [id number] #### [facility] [address] [place] [address] Chloride [Moles/Vol] 104 mmol/L Normal 101-111 [facility] Comment on above: Performed By: #### 2 [id number] #### [facility] [address] [place] [address] CO2 [Moles/Vol] 30 mmol/L Normal 21-31 [facility] Comment on above: Performed By: #### 2 [id number] #### [facility] [address] [place] [address] Creatinine [Mass/Vol] 1.3 mg/dL Normal 0.5-1.3 [facility] Comment on above: Performed By: #### 2 [id number] #### [facility] [address] [place] [address] Glucose [Mass/Vol] 113 mg/dL Normal 55-199 [facility] Comment on above: Performed By: #### 2 [id number] #### [facility] [address] [place] [address] Potassium [Moles/Vol] 4.3 mmol/L Normal 3.5-5.3 [facility] Comment on above: Performed By: #### 2 [id number] #### [facility] [address] [place] [address] Sodium [Moles/Vol] 139 mmol/L Normal 135-145 [facility] Comment on above: Performed By: #### 2 [id number] #### [facility] [address] [place] [address] Urea nitrogen [Mass/Vol] 21 mg/dL Normal 5-21 [facility] Comment on above: Performed By: #### 2 [id number] #### [facility] [address] [place] [address] Urea nitrogen/Creatinine [Mass ratio] 16 No Units Normal 10-20 [facility] Comment on above: Performed By: #### 2 [id number] #### [facility] [address] [place] [address] CBC w/ Auto Diffon 4 Basophils/100 WBC (Bld) 2.0 % Normal 0.0-2.0 [facility] Comment on above: Performed By: #### 2 [id number] #### [facility] [address] [place] [address] Basophils/Leukocytes Auto (Bld) [Pure # fraction] 0.1 E9/L Normal 0.0-0.2 [facility] Comment on above: Performed By: #### 2 856702 #### [facility] [address] [place] [address] Eosinophils (Bld) [#/Vol] 0.3 E9/L Normal 0.0-0.5 [facility] Comment on above: Performed By: #### 2 180812 #### [facility] [address] [place] [address] Eosinophils/100 WBC (Bld) 4.8 % Normal 0.0-8.0 [facility] Comment on above: Performed By: #### 2 664732 #### [facility] [address] [place] [address] Erythrocyte distribution width (RBC) [Ratio] 14.1 % Normal 10.9-14.2 [facility] Comment on above: Performed By: #### 2 102505 #### [facility] [address] [place] [address] Hematocrit (Bld) [Volume fraction] 38.5 % Normal 37.7-49.0 [facility] Comment on above: Performed By: #### 2 709854 #### [facility] [address] [place] [address] Hemoglobin (Bld) [Mass/Vol] 13.7 g/dL Normal 13.5-17.5 [facility] Comment on above: Performed By: #### 2 767659 #### [facility] [address] [place] [address] Lymphocytes (Bld) [#/Vol] 1.6 E9/L Normal 1.0-4.0 [facility] Comment on above: Performed By: #### 2 [id number] #### [facility] [address] [place] [address] Lymphocytes/100 WBC (Bld) 29.7 % Normal 14.0-50.0 [facility] Comment on above: Performed By: #### 2 585935 #### [facility] [address] [place] [address] MCH (RBC) [Entitic mass] 30.3 pg Normal 27.0-34.0 [facility] Comment on above: Performed By: #### 2 491814 #### [facility] [address] [place] [address] MCHC (RBC) [Mass/Vol] 35.5 g/dL Normal 31.4-36.0 [facility] Comment on above: Performed By: #### 2 245947 #### [facility] [address] [place] [address] MCV (RBC) [Entitic vol] 85.3 fL Normal 80.0-100.0 [facility] Comment on above: Performed By: #### 2 426452 #### [facility] [address] [place] [address] Monocytes (Bld) [#/Vol] 0.5 E9/L Normal 0.2-1.0 [facility] Comment on above: Performed By: #### 2 [id number] #### [facility] [address] [place] [address] Neutrophils (Bld) [#/Vol] 3.1 E9/L Normal 2.0-7.5 [facility] Comment on above: Performed By: #### 2 170963 #### [facility] [address] [place] [address] Neutrophils/100 WBC (Bld) 55.2 % Normal 36.0-75.0 [facility] Comment on above: Performed By: #### 2 [id number] #### [facility] [address] [place] [address] Platelet 166.0 E9/L Normal 150.0-500.0 [facility] Comment on above: Performed By: #### 2 827571 #### [facility] [address] [place] [address] Platelet mean volume (Bld) [Entitic vol] 8.6 fL Normal 6.4-10.8 [facility] Comment on above: Performed By: #### 2 138641 #### [facility] [address] [place] [address] RBC (Bld) [#/Vol] 4.5 E12/L Normal 4.3-5.9 [facility] Comment on above: Performed By: #### 2 096562 #### [facility] [address] [place] [address] WBC corrected for nucl RBC Auto (Bld) [#/Vol] 5.5 E9/L Normal 4.0-11.0 [facility] Comment on above: Performed By: #### 2 [id number] #### [facility] [address] [place] [address] CHEMISTRYOrdered By: SYSTEM SYSTEM on 12-25-2023 Anion [...] 35.0 s Normal 25.1 - 36.5 second(s) [facility] Auto Coag Comment [...] the same coagulation reagent and instrumentation as [facility]. Currently there are no coagulation studies available worldwide for children to 14 days, and no normal ranges. Heparin therapeutic range (represented by Anti-Factor Xa activity of 0.2 - 0.4 U/mL) corresponds to PTT of 56.6 - 109.0 sec. INR Coag (PPP) [Relative time] 1.01 {INR} Invalid Interpretation Code [facility] Comment on above: Interpretive Data: I NR results are specifically intended to assess patients stabilized on long-term Anticoagulation therapy suggested INR s Less Intensive Anticoagulation 2.0 3.0 Conventional Range 3.0 4.5 PT Coag (PPP) [Time] 11.3 s Normal 9.4 - 1 2.5 second(s) [facility] Auto Coag Comment [...] the same coagulation reagent and instrumentation as [facility]. Currently there are [...] Coag (PPP) [Time] 35.0 second(s) Normal 25.1-36.5 [facility] Comment on above: Result Comment: Para meter [...] the same coagulation reagent and instrumentation as [facility]. Currently there are no coagulation studies available worldwide for children to 14 days, and no normal ranges. Heparin therapeutic range (represented by Anti-Factor Xa activity of 0.2 - 0.4 U/mL) corresponds to PTT of 56.6 - 109.0 sec. Performed By: #### 1 [id number] #### [facility] [address] [place] [address] INR Coag (PPP) [Relative time] 1.01 {INR} Invalid Interpretation Code [facility] Comment on above: Result Comment: INR results are specifically intended to assess patients stabilized on long-term Anticoagulation therapy suggested INR?s ?Less Intensive Anticoagulation? 2.0 ? 3.0 Conventional Range 3.0 ? 4.5 Performed By: #### 1 [id number] #### [facility] [address] [place] [address] PT Coag (PPP) [Time] 11.3 second(s) Normal 9.4-12.5 [facility] Comment on above: Result Comment: 15 d [...] the same coagulation reagent and instrumentation as [facility]. Currently there are no coagulation studies available worldwide for children to 14 days, and no normal ranges. Performed By: #### 1 [id number] #### [facility] [address] [place] [address] UA with Cult Rflxon 12-25-19 24 Bilirubin Ql (U) Negative Normal Negative [facility] Comment on above: Performed By: #### 4 [id number] #### [facility] [address] [place] [address] Clarity (U) Clear Normal Clear [facility] Comment on above: Performed By: #### 4 [id number] #### [facility] [address] [place] [address] Color (U) Light-Yellow Normal Yellow [facility] Comment on above: Result Comment: Micr oscopic readings are only performed on those samples that meet specific criteria set forth by [facility]. Performed By: #### 4 [id number] #### [facility] [address] [place] [address] Glucose Ql (U) Negative Normal Negative [facility] Comment on above: Performed By: #### 4 [id number] #### [facility] [address] [place] [address] Hemoglobin Auto test strip (U) [Mass/Vol] Negative Normal Negative [facility] Comment on above: Performed By: #### 4 [id number] #### [facility] [address] [place] [address] Ketones Auto test strip Ql (U) Negative Normal Negative [facility] Comment on above: Performed By: #### 4 [id number] #### [facility] [address] [place] [address] Leukocyte esterase Auto test strip Ql (U) Negative Normal Negative [facility] Comment on above: Performed By: #### 4 [id number] #### [facility] [address] [place] [address] Nitrite Auto test strip Ql (U) Negative Normal Negative [facility] Comment on above: Performed By: #### 4 [id number] #### [facility] [address] [place] [address] pH (U) 5.5 [pH] Invalid Interpretation Code 5.0-9.0 [facility] Comment on above: Performed By: #### 4 [id number] #### [facility] [address] [place] [address] Protein Ql (U) Negative Normal Negative [facility] Comment on above: Performed By: #### 4 [id number] #### [facility] [address] [place] [address] Specific gravity (U) [Rel density] 1.012 Invalid Interpretation Code 1.005-1.030 [facility] Comment on above: Performed By: #### 4 [id number] #### [facility] [address] [place] [address] Urobilinogen (U) [Mass/Vol] Negative Normal Negative [facility] Comment on above: Performed By: #### 4 [id number] #### [facility] [address] [place] [address] Type of Urine collection method Clean Catch Normal [facility] Comment on above: Performed By: #### 4 [id number] #### [facility] [address] [place] [id number] URINALYSISOrdered By: SYSTEM SYSTEM on 12-25-2023 Bilirubin Ql (U) Negative Normal Negativemg/ d L [facility] UA Auto SS Clarity (U) Clear (12/25/23 7:53 AM) Normal Clear [facility] UA Auto SS Color (U) Light-Yellow 1 (12/25/23 7:53 AM) Normal Yellow [facility] UA Auto SS Comment on above: Interpretive Data: M icroscopic readings are only performed on those samples that meet specific criteria set forth by [facility]. Glucose Ql (U) Negative Normal Negativemg/d [...] AM) Invalid Interpretation Code 1.005 - 1.030 [facility] UA Auto SS Urobilinogen (U) [Mass/Vol] Negative Normal Negativemg/d L [facility] UA Auto SS URINALYSISOrdered By: Genevieve Parkermimi on 12-25-2023 UA Spec Desc Clean Catch (12/25/23 7:53 AM) Normal [facility] UA Auto SS XR Chest 2 Viewson [...] mGy = na DAP = na Normal [facility] eGFRon 12-25-2023 eGFR 60 mL/min/1.73 m2 Normal >=59 [facility] Comment on above: Order Comment: Order added by Discern Expert. Performed By: #### 1 [id number] #### [facility] [address] [place] [address] Reminderson 12-06-2023 Reminders - From: Carissa Hammonds [...] seen KML 11/29/23. Scheduled for TURP Normal [facility] Screenson 12-01-2023 Screens [id number] #1.00TIFF Normal [facility] Screens [id number] #1.00TIFF Normal [facility] Consent for Procedure/Surger yon 11-30-2023 Consent for Procedure/Surgery [id number]# 1.00TIFF Normal [facility] Patient Educationon 11-29-19 24 Patient Education Urology [...] these instructions at home: Medicines ? Take bogi-jbv-clnavyr and prescription medicines only as told by [...] keep your urine pale yellow. ? Take wker-rzt-hfhsjbx or prescription medicines. ? Eat foods that [...] provider. Document Revised: 03/08/2022 Document Reviewed: 03/08/2022 [employer] Patient Education ? 2022 [employer] Transurethral Resection o (more content not included)... Normal [facility] Urology Office/Clinic Noteon 11-29-2023 Urology Office/Clinic Note [...] jameel (more content not included)... Normal [facility] Comment on above: Result Comment: Elec tronically Signed By: Daryl HAMILTON, Meghan Tucker\.br\Date and Time Signed: 11/29/23 16:11 EDT\.br\Electronically Co-Signed By: Carissa Hammonds\Date and Time Co-Signed: 11/29/23 11:34 EDT Basophils Auto (Bld) [#/Vol] on 11-24-2023 Basophils (Bld) [#/Vol] 0.1 10 3/uL 0.0-0.1 [facility] Basophils/100 WBC Auto (Bld) on 11-24-2023 Basophils/100 WBC (Bld) 1.4 % 0.2-2.0 [facility] Cholesterol in LDL Calc [Mas s/Vol]on 11-24-2023 Cholesterol in LDL [Mass/Vol] 135.0 mg/dL [facility] Comment on above: <100 mg/dl [id number] 0-129 mg/dl NEAR OR ABOVE [id number] mg/dl BORDERLINE [id number] mg/dl HIGH>190 mg/dl VERY HIGH Cholesterol in VLDL Calc [Ma ss/Vol]on 11-24-2023 Cholesterol in VLDL [Mass/Vol] 19.2 mg/dL [facility] Eosinophils/100 WBC Auto (Bl d)on 11-24-2023 Eosinophils/100 WBC (Bld) 4.8 % 0.9-7.0 [facility] Erythrocyte distribution wid th Auto (RBC) [Ratio]on 11-24-2023 Erythrocyte distribution width (RBC) [Ratio] 13.2 % 11.0-15.0 [facility] Estimated glomerular filtrat ion rate (GFR) non- Americanon 11-24-2023 GFR/1.73 sq M.predicted among non-blacks MDRD (S/P/Bld) [Vol rate/Area] 51 mL/min/{1.73_m2} >=60 [facility] Globulin Calc (S) [Mass/Vol] on 11-24-2023 Globulin (S) [Mass/Vol] 3.5 g/dL [facility] Hematocrit Auto (Bld) [Volum e fraction]on 11-24-2023 Hematocrit (Bld) [Volume fraction] 39.3 % 42.0-54.0 [facility] Hemoglobin [Mass/volume] in Bloodon 11-24-2023 Hemoglobin (Bld) [Mass/Vol] 12.9 g/dL 14.0-18.0 [facility] Laboratory - Chemistry and C hemistry - challengeon 11-24-2023 Albumin [Mass/Vol] 3.8 g/dL 3.4-5.0 [facility] ALP [Catalytic activity/Vol] 72 U/L 46-116 [facility] ALT [Catalytic activity/Vol] 25 U/L 16-63 [facility] AST [Catalytic activity/Vol] 17 U/L 15-37 [facility] Bilirubin [Mass/Vol] 0.9 mg/dL 0.2-1.0 [facility] Calcium [Mass/Vol] 8.9 mg/dL 8.5-10.1 [facility] Chloride [Moles/Vol] 105 mmol/L 98-107 [facility] Cholesterol [Mass/Vol] 188 mg/dL <=200 [facility] Cholesterol in HDL [Mass/Vol] 34 mg/dL 40-60 [facility] Comment on above: > or =60 mg/dl - LOW CARDIOVASCULAR RISK<40 mg/dl - HIGH CARDIOVASCULAR RISK CO2 [Moles/Vol] 28.1 mmol/L 21.0-32.0 [facility] Creatinine [Mass/Vol] 1.40 mg/dL 0.70-1.30 [facility] GFR/1.73 sq M.predicted MDRD (S/P/Bld) [Vol rate/Area] mL/min/{1.73_m2} >=60 [facility] Glucose [Mass/Vol] 114 mg/dL 74-106 [facility] Potassium [Moles/Vol] 4.2 mmol/L 3.5-5.1 [facility] Protein [Mass/Vol] 7.3 g/dL 6.4-8.2 [facility] Sodium [Moles/Vol] 142 mmol/L 136-145 [facility] Triglyceride [Mass/Vol] 96 mg/dL <=150 [facility] Urea nitrogen [Mass/Vol] 22.0 mg/dL 7.0-18.0 [facility] Urea nitrogen/Creatinine [Mass ratio] 15.7 mg/mg [facility] Laboratory - Hematology and Cell countson 05-31-2024 Immature granulocytes/100 WBC (Bld) 0.2 % 0.0-0.5 [facility] Leukocytes [#/volume] correc rina for nucleated erythrocytes in Blood by Automated counon 11-24-2023 WBC corrected for nucl RBC Auto (Bld) [#/Vol] 5.0 10 3/uL 4.0-11.0 [facility] Lymphocytes Auto (Bld) [#/Vo l]on 11-24-2023 Lymphocytes (Bld) [#/Vol] 1.6 10 3/uL 1.2-3.8 [facility] Lymphocytes/100 WBC Auto (Bl d)on 11-24-2023 Lymphocytes/100 WBC (Bld) 31.0 % 20.5-60.0 [facility] MCH Auto (RBC) [Entitic mass ]on 11-24-2023 MCH (RBC) [Entitic mass] 28.4 pg 25.9-34.0 [facility] MCHC Auto (RBC) [Mass/Vol]on 11-24-2023 MCHC (RBC) [Mass/Vol] 32.8 g/dL 29.9-35.2 [facility] MCV Auto (RBC) [Entitic vol] on 11-24-2023 MCV (RBC) [Entitic vol] 86.6 fL 80.0-94.0 [facility] Monocytes Auto (Bld) [#/Vol] on 11-24-2023 Monocytes (Bld) [#/Vol] 0.4 10 3/uL 0.3-0.8 [facility] Monocytes/100 WBC Auto (Bld) on 11-24-2023 Monocytes/100 WBC (Bld) 8.1 % 1.7-12.0 [facility] Neutrophils Auto (Bld) [#/Vo l]on 11-24-2023 Neutrophils (Bld) [#/Vol] 2.8 10 3/uL 1.4-6.5 [facility] Neutrophils/100 WBC Auto (Bl d)on 11-24-2023 Neutrophils/100 WBC (Bld) 54.5 % 43.0-75.0 [facility] No Panel Informationon 11-23 Eosinophils # (Auto) 0.2 10 3/uL 0.0-0.7 [facility] Immature Granulocyte # (Auto) 0.01 10 3/uL 0.00-0.03 [facility] Prostate Specific Antigen Screen 6.70 ng/mL <=4.00 [facility] Platelet mean volume Auto (B ld) [Entitic vol]on 11-24-2023 Platelet mean volume (Bld) [Entitic vol] 10.3 fL 9.5-13.5 [facility] Platelets Auto (Bld) [#/Vol] on 11-24-2023 Platelets (Bld) [#/Vol] 177 10 3/uL 150-450 [facility] RBC Auto (Bld) [#/Vol]on RBC (Bld) [#/Vol] 4.54 10 6/uL 4.70-6.10 [facility] Serum or plasma albumin/glob ulin mass ratioon 11-24-2023 Albumin/Globulin [Mass ratio] 1.1 {ratio} [facility] Serum or plasma anion gap de terminationon 11-24-2023 Anion gap [Moles/Vol] 13.1 mmol/L [facility] Serum or plasma total choles terol/high density lipoprotein (HDL) cholesterol mass juve 11-24-2023 Cholesterol.total/Cho lesterol in HDL [Mass ratio] 5.5 {ratio} [facility] Comment on above: 3.3 - 4.4 LOW RISK4. 4 - 7.1 AVERAGE RISK7.1 - 11.0 MODERATE RISK>11.0 HIGH RISK Consent for Procedure/Surger yon 07-31-2023 Consent for Procedure/Surgery [id number] 6#1.00TIFF Normal [facility] Consent for Treatmenton Consent for Treatment [id number] #1.00TIFF Normal [facility] Inpatient Patient Summaryon 07-31-2023 Inpatient Patient Summary [place] [id number] Clinical Summary Person Information Name: MICHAEL KILLIAN Age: 68 Years : 1955 Sex: Male PCP: GIO CAVANAUGH DO Marital Status: Race: White Ethnicity: Non- or Language: Luxembourger Visit Id: Visit Reason: GROSS HEMATURIA Speciality: Acuity: Enc Type: Outpatient Med Service: Surgery Arrival: 07/31/2023 07:51:46 Discharge: Dispo Type: Address: [facility] [address] [place] [phone] Provider Notes: Diagnosis: BPH with urinary obstruction; [...] up: With: Address: When: Meghan Brito [address] [place], [place] [address], [address] [address] [phone] Business (1) Comments: Office to schedule follow up in 3-4 months or call sooner for procedure (pt knows will be done by partner/referred out if during leave) Patient Education Information: Robot-Assisted Laparoscopic Radical Prostatectomy; Transurethral Resection of the Prostate; EU - Cystoscopy Discharge Instructions (CUSTOM) [facility] IntraOperative Documentson 0 07-31-2023 IntraOperative Documents [id number] 6#1.00TIFF [facility] Main OR Intraoperative Recor don 07-31-2023 Main OR Intraoperative Record IntraOp Document Type FTURO Summary Primary Physician: Meghan Brito MD Finalized Date/Time: 07/31/23 09:01:26 Pt. Name: MICHAEL KILLIAN Eleazar Villagran/Sex: 1955 Male Med Rec #: [id number] Physician: Meghan Brito MD Financial #: [id number] Pt. Type: O Room/Bed: / Admit/Disch: 07/31/23 [...] Rachana Felton Role Performed Surgeon - Primary Museum Educator - Primary Scrub - Primary Time In [...] JAY Bird RN, Ruthann 07/31/23 09:01 Normal [facility] Main OR Preoperative Recordo n 07-31-2023 Main OR Preoperative Record Holding Area Document Type FTURO Summary Primary Physician: Meghan Brito MD Finalized Date/Time: 07/31/23 08:50:15 Pt. Name: MICHAEL KILLIAN Eleazar MillsB./Sex: 1955 Male Med Rec #: [id number] Physician: Meghan Brito MD Financial #: [id number] Pt. Type: O Room/Bed: / Admit/Disch: 07/31/23 [...] Bird RN, Ruthann 07/31/23 08:50 Normal [facility] Operative Reporton Operative Report Patient: MICHAEL KILLIAN Age: 68 years Sex: Male : 1955 Associated Diagnoses: None Author: Meghan Brito MD Procedure Operative Information Details: Date/ Time: 07/31/2023 09:06:00. Pre-Op Dx: BPH with urinary obstruction (OBC44-JT N40.1, Discharge, Medical), Feeling of incomplete bladder emptying (LSA12-SZ R39.14, Discharge, Medical), Gross hematuria (LBT84-RC R31.0, Discharge, Medical). Post-Op Dx: Same. Anesthesia [...] BPH workup and gross hematuria. . Normal [facility] Comment on above: Result Comment: Elec tronically Signed By: Meghan Brito MD\.br\Date and Time Signed: 07/31/23 09:10 EST Outpatient Surgery Discharge Instructionon 07-31-2023 Outpatient Surgery Discharge Instruction [address] [address] Patient Discharge Instructions PERSON INFORMATION [...] Follow up: With: Address: When: Meghan Brito [address] [place], [place] [address] [phone] Business (1) Comments: Office to schedule follow [...] including vitamins, herbs, eye drops, creams, and gcur-pwk-nqgbmjs medicines. ? Any problems you or family [...] tells you to take them. ? Taking vzhr-ywt-ebyckao medicines, vitamins, herbs, and supplements. ? Follow your health care provider's instructions about cleaning out your bowels. Surgery s (more content not included)... Normal [facility] Progress Note-Physicianon Progress Note-Physician Patient: MICHAEL KILLIAN [...] Daily, # 90 tab(s), Refills(s) 3, Pharmacy: [facility], 180, cm, 06/16/23 9:50:00 EST, Height/Length Dosing, 108.2, kg, 06/16/23 9:50:00 EST, Weight Dosing Documented Medications Documented carvedilol 6.25 mg Tab: 6.25 mg = 1 tab(s), Oral, BID, # 60 tab(s), Refills(s) 0 lisinopril 40 mg Tab: mg tab(s), Oral, Daily, Refills(s) 0 Impression and Plan Assessment and Plan: Diagnosis: BPH with urinary obstruction (RNJ11-BH N40.1, Discharge, Medical), Pelvic lymphadenopathy (UCH74-QU R59.0, Working, Medical), Chronic prostatitis (GDR05-LQ N41.1, Discharge, Medical), Feeling of incomplete bladder emptying (RUE90-IT R39.14, Discharge, Medical), Gross hematuria (EDT59-YP R31.0, Discharge, Medical). Assessment and Plan: Diagnosis: BPH with urinary obstruction (MEJ75-OR N40.1, Discharge, Medical), Chronic prostatitis (LHS34-PZ N41.1, Discharge, Medical), Feeling of incomplete bladder emptying (RTW42-YA R39.14, Discharge, Medical), Gross hematuria (MJB83-VT R31.0, Discharge, Medical), Pelvic lymphadenopathy (NBL61-NS R59.0, Working, Medical). 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 Gross hematuria - after [place] CTU 07/05/23 at [facility] - neg for upper tract [...] 4 to 5 months with PVR Normal [facility] Comment on above: Result Comment: Elec tronically Signed By: Daryl HAMILTON, Meghan Gonzalez\Date and Time Signed: 07/31/23 12:31 EST RAD - CT Reporton 07-10-2023 RAD - CT Report [id number]# 1.00TIFF Normal [facility] Lab Reportson 07-07-2023 Lab Reports [id number]# 1.00TIFF Normal [facility] Lab Reports [id number] #1.00TIFF Normal [facility] Urine Cytology ([facility])on 07-05-2023 Urine Cytology Diagnosis Info Invalid Interpretation Code [facility] Comment on above: Result Comment: A:Ur ine,Urine:Voided Interpretation - MicroScopic Description - Adequacy - Gross Description Site ID:A color Dark [place] fixative Alcohol Specimen designated Urine received in alcohol preservative and labeled with the patient?s name, consists of 110ml cloudy dark peach fluid. Electronically signed by : on: 07/05/2023 13:00:05 Performed By: #### 1 [id number] ####[facility] [address] [place] [address] Urine Cytology ([facility])on 06-30-2023 UC Method of Extraction Voided Normal [facility] Comment on above: Performed By: #### 1 [id number] ####[facility] [address] [place] [address] UC Number of Jars 1 Invalid Interpretation Code [facility] Comment on above: Performed By: #### 1 [id number] ####[facility] [address] [place] [address] UC Specimen Urine Normal [facility] Comment on above: Performed By: #### 1 [id number] ####[facility] [address] [place] [address] Type of Service Technical Only Normal [facility] Comment on above: Performed By: #### 1 [id number] ####[facility] [address] [place] [address] IntraOperative Documentson 1 08-23-2022 IntraOperative Documents [id number] 0#1.00TIFF Normal [facility] Pathology Noteon 06-22-2023 Pathology Note [id number] #1.00TIFF Normal [facility] Screenson 06-20-2023 Screens [id number] #1.00TIFF Normal [facility] Screens [id number] #1.00TIFF Normal [facility] Ambulatory Visit Summaryon 1 08-17-2022 Ambulatory Visit Summary DANIELMICHAEL Eleazar :1955 Visit Date:06/16/2023 Ambulatory Visit Instructions Your Diagnosis Elevated PSA BPH with urinary obstruction ED (erectile dysfunction) Former smoker Enlarged lymph node Tests Performed Urnls Dip Stick Auto w/o Microscopy POC [address] CT Pelvis w/o Contrast -- Results Pending [...] 9:15 AM EST Where: [facility] [place] [facility] Patient Educationon 06-16-20 Patient Education [...] Where to find more information ? The [place] [employer]: www.cancer.org ? [place] [employer]: www.auanet.org Contact a health care [...] flu (more content not included)... Normal [facility] Urology Office/Clinic Noteon 06-16-2023 Urology Office/Clinic Note Chief Complaint S/P to MRI proste and review path HPI Staff S/p to MR prostate wo/ w con @ [facility] on 04/03/23 Review path report done 06/06/23 [...] consent jane (more content not included)... Normal [facility] Comment on above: Result Comment: Elec tronically Signed By: Meghan Brito MD\.br\Date and Time Signed: 06/16/23 15:18 EST\.br\Electronically Co-Signed By: Carissa Hammonds\.br\Date and Time Co-Signed: 06/16/23 11:02 EST Main OR Intraoperative Recor don 06-09-2023 Main OR Intraoperative Record IntraOp Document Type FT Summary Primary Physician: Meghan Brito MD Finalized Date/Time: 06/09/23 09:45:57 Pt. Name: MICHAEL KILLIAN/Sex: 1955 Male Med Rec #: [id number] Physician: Meghan Brito MD Financial #: [id number] Pt. Type: A Room/Bed: [facility]/ Admit/Disch: 06/06/23 13:31:36 - 12/12/23 18:00:13 Institution: [...] Performed Surgeon - Primary Scrub - Primary Museum Educator - Primary Time In 06/06/23 16:38:00 06/06/23 [...] and tissue Entry 1 Skin Integrity Intact, Tatamy, Warm, and Skin Abnormality No Dry Outcomes [...] Board Right (more content not included)... Normal [facility] Discharge Instructionson Discharge Instructions [id number] 9#1.00TIFF [facility] IntraOperative Documentson 08-09-2022 IntraOperative Documents [id number] 5#1.00TIFF [facility] IntraOperative Documents [id number] 9#1.00TIFF Normal [facility] IntraOperative Documents [id number] 9#1.00TIFF [facility] Preoperative Documentson Preoperative Documents [id number] 5#1.00TIFF [facility] Consent for Procedure/Surger yon 06-06-2023 Consent for Procedure/Surgery [id number] 58#1.00TIFF [facility] Consent for Treatmenton 05-26 Consent for Treatment [id number] #1.00TIFF [facility] Discharge Instructionson Discharge Instructions DANIELMICHAEL Eleazar :1955 [...] Meghan Brito MD Where: [facility] Comment on above: Result Comment: Elec tronically Signed By: Alcides ENCISO, Dori Mallory\.br\Date and Time Signed: 06/06/23 17:16 EST H&P Updateon 06-06-2023 H&P Update [id number] 9#1.00TIFF [facility] Inpatient Patient Summaryon 06-06-2023 Inpatient Patient Summary [place] [address] [facility] Clinical Discharge Instructions PERSON INFORMATION Name: MICHAEL [...] Location Start Finish State URO Office Visit [facility] 06/14/2023 10:30 AM 06/14/2023 10:45 AM [...] Tab) By Mouth every day. Comment: Normal [facility] Operative Reporton Operative Report Patient: MICHAEL KILLIAN [...] Select MDX showed 95% likelihood of detecting Bivalve 7 or higher. After discussion of risks/benefits [...] . Impression and Plan Diagnosis Elevated PSA (IPI14-GL R97.20, Discharge, Medical). Diagnosis Elevated PSA (JDH26-PS R97.20, Discharge, Medical). Normal [facility] Comment on above: Result Comment: Elec tronically Signed By: Daryl HAMILTON, Meghan Tucker\.br\Date and Time Signed: 06/06/23 16:58 EST Outpatient Surgery Discharge Instructionon 06-06-2023 Outpatient Surgery Discharge Instruction [place] [id number] Patient Discharge Instructions PERSON INFORMATION Name: MICHAEL [...] Location Start Finish State URO Office Visit [facility] EU Nas 06/14/2023 [...] to serve you. Thank you for choosing [facility] HERE ARE THE MEDICATION CHANGES [...] near your rectum, especially while sitting. ? Tatamy-colored urine due to small amounts of blood [...] urinating or catheter-related problems Medication Leaflets: [place] [facility] Patient Education - Texton 1 08-07-2022 Patient Education - Text Transperineal?Biopsy of the Prostate Discharge Instructions After the procedure, it is common to have: ? Pain and discomfort near your rectum, especially while sitting. ? Tatamy-colored urine due to small amounts of blood [...] have difficulty urinating or catheter-related problems Normal [facility] Outside Recordson 05-15-2023 Outside Records [id number] 5#1.00TIFF Normal [facility] Ambulatory Visit Summaryon 1 07-12-2022 Ambulatory Visit Summary MICHAEL KILLIAN :1955 Visit Date:05/10/2023 Ambulatory Visit Instructions Your Diagnosis Elevated PSA BPH with urinary obstruction Tests Performed Urnls Dip Stick Auto w/o Microscopy POC 73033 Your Care Team Attending Physician - Meghan [...] Appointments Monday 2:30 PM EST With: Where: [facility] Surgical Services Monday 10:30 AM EST With: Meghan Brito MD Where: [facility] Nas Normal [facility] Patient Educationon 05-10-20 Patient Education [...] Where to find more information ? The [place] [employer]: www.cancer.org ? [place] [employer]: www.auanet.org Contact a health care [...] adds flu (more content not included)... Normal [facility] Screenson 05-10-2023 Screens [id number] 1#1.00TIFF [facility] [facility] Screens [id number] 3#1.00TIFF Normal [facility] Urology Office/Clinic Noteon 05-10-2023 Urology [...] cancer upon bx. 95% likelihood of detecting Bivalve scores >=7 cancer. Today I reviewed the [...] the office notified. 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 2. BPH [...] -Timed voids (more content not included)... Normal [facility] Comment on above: Result Comment: Elec tronically Signed By: Meghan Brito MD\.br\Date and Time Signed: 05/10/23 11:31 EST\.br\Electronically Co-Signed By: Nevaeh Padilla\.br\Date and Time Co-Signed: 05/10/23 11:22 EST Lab Reportson 04-18-2023 Lab Reports [id number] #1.00TIFF [facility] Physician Orderon 04-13-2023 Physician Order [id number] #1.00TIFF [facility] Formson 04-12-2023 Forms [id number] #1.00TIFF [facility] Lab Reportson 04-12-2023 Lab Reports [id number] #1.00TIFF Normal [facility] Patient Educationon 04-11-20 Patient Education [...] Where to find more information ? The [place] [employer]: www.cancer.org ? [place] [employer]: www.auanet.org Contact a health care [...] flu (more content not included)... Normal [facility] Urology Office/Clinic Noteon 04-11-2023 Urology [...] given order for PSA. Will complete at [facility]. Return in about 4 weeks [...] Contact Information LONNIE ELLIOTT, THERESA Merida, URL [address] [facility] [place] [address] [phone] Additional Instructions: f/u with MD in 1 [...] SARS-CoV-2 (COVID-19) Ad26 vaccine 09/02/2020 Recorded Normal [facility] Comment on above: Result Comment: Elec tronically Signed By: THERESA FLEMING PA-C\.br\Date and Time Signed: 04/11/23 13:13 EDT\.br\Electronically Co-Signed By: Carissa Hammonds\.br\Date and Time Co-Signed: 04/11/23 12:33 EDT RAD - MRI Reporton 3 RAD - MRI Report [id number] #1.00TIFF Normal [facility] ISTAT XRay CREon 04-03-2023 ISTAT GFR 55.088 Normal [facility] Comment on above: Result Comment: PERF ORMED BY: [place] [address] PATHOLOGIST DIE TURNER SARAH BEHT SILVEIRA M.D. Performed By: #### I SCRE #### [address] MR prostate wo/w conon 04-03 MR prostate wo/w con [facility] Main [place] [address] [place] [address] MRI Report Signed Patient: Michael Killian MR#: [id number] : 1955 Acct:[id number] Age/Sex: 68 / M ADM Date: 04/03/23 Loc: MR Room: Type: [facility] Attending Dr: Theresa Fleming PA-C Copies to: [...] D.O.04/03/2023 1:40 PM Dictation Location: [facility]-15 Transcribed By: [facility] 04/03/23 1340 Dictated By: Leandro Cleary Jr, DO 04/03/23 1334 Signed By: 04/03/23 1340 Normal [facility] Whole blood creatinine measu rementOrdered By: Theresa Fleming on 04-03-2023 Creatinine [Mass/Vol] 1.4 mg/dL High 0.6-1.3 [facility] Comment on above: ER/ESD physician is notified/shown all ISTAT results.Critical values may be confirmed by laboratory testing ifdeemed necessary by ER attending doctor. Result Comment: ER/E SD physician is notified/shown all ISTAT results. Critical values may be confirmed by laboratory testing if deemed necessary by ER attending doctor. Performed By: #### I SCRE #### [facility] [address] PROF 14(COMP METB)on 023 Albumin [Mass/Vol] 3.9 g/dL Normal 3.4-5.0 [facility] [place] [facility] Comment on above: Performed By: #### B MP #### [facility] [address] [place] [address] Dr. Duy James Albumin/Globulin [Mass ratio] 1.1 {ratio} Normal [facility] Comment on above: Performed By: #### B MP #### [facility] [address] [place] [address] Dr. Duy James ALP [Catalytic activity/Vol] 70 U/L Normal 46-116 [facility] Comment on above: Performed By: #### B MP #### [facility] [address] [place] [address] Dr. Duy James ALT [Catalytic activity/Vol] 26 U/L Normal 16-63 [facility] Comment on above: Performed By: #### B MP #### [facility] [address] [address] [address] Duy James Anion gap [Moles/Vol] 13.1 mmol/L Normal [facility] Comment on above: Performed By: #### B MP #### [facility] [address] [address] [address] Duy James AST [Catalytic activity/Vol] 17 U/L Normal 15-37 [facility] Comment on above: Performed By: #### B MP #### [facility] [address] [place] [address] Dr. Duy James Bilirubin [Mass/Vol] 0.6 mg/dL Normal 0.2-1.0 [facility] Comment on above: Performed By: #### B MP #### [facility] [address] [address] [address] Duy James Calcium [Mass/Vol] 9.0 mg/dL Normal 8.5-10.1 [facility] [place] [facility] Comment on above: Performed By: #### B MP #### [facility] [address] [address] [address] Duy James Chloride [Moles/Vol] 106 mmol/L Normal 98-107 [facility] Comment on above: Performed By: #### B MP #### [facility] [address] [address] [address] Duy James CO2 [Moles/Vol] 28.5 mmol/L Normal 21.0-32.0 [facility] Comment on above: Performed By: #### B MP #### [facility] [address] [address] [address] Duy James Creatinine [Mass/Vol] 1.22 mg/dL Normal 0.70-1.30 [facility] Comment on above: Performed By: #### B MP #### [facility] [address] [address] [address] Duy James EGFR-AF CITIZ[place] >60 Normal >=60 [facility] Comment on above: Performed By: #### B MP #### [facility] [address] [address] [address] Duy James EGFR-NON AF CITIZEN [place] 59 mL/min/1.73m2 Critically low >=60 [facility] Comment on above: Performed By: #### B MP #### [facility] [address] [address] [address] Duy James Globulin (S) [Mass/Vol] 3.7 g/dL Normal [facility] Comment on above: Performed By: #### B MP #### [facility] [address] [address] [address] Duy James Glucose [Mass/Vol] 113 mg/dL Critically high 74-106 [facility] Comment on above: Performed By: #### B MP #### [facility] [address] [place], [place] [address] Dr. Duy James Potassium [Moles/Vol] 4.6 mmol/L Normal 3.5-5.1 [facility] Comment on above: Performed By: #### B MP #### [facility] [address] [address] [address] Duy James Protein [Mass/Vol] 7.6 g/dL Normal 6.4-8.2 [facility] Comment on above: Performed By: #### B MP #### [facility] [address] [place], [place] [address] Dr. Duy James Sodium [Moles/Vol] 143 mmol/L Normal 136-145 [facility] Comment on above: Performed By: #### B MP #### [facility] [address] [address] [address] Duy James Urea nitrogen [Mass/Vol] 12.0 mg/dL Normal 7.0-18.0 [facility] Comment on above: Performed By: #### B MP #### [facility] [address] [address] [address] Duy James Urea nitrogen/Creatinine [Mass ratio] 9.8 mg/mg Normal [facility] Comment on above: Performed By: #### B MP #### [facility] [id number] Duy James XR CHEST 2 Von [...] by: LIDYA VALE Date: 2022-11-07 09:16 Normal [facility] CULTURE BLOODon 08-30-2022 Microscopic examination of [...] F Trimethoprim/Sulfame thoxazole <=10 S F Normal [facility] Comment on above: Performed By: #### B MP #### [facility] [address] [place] [address] Dr. Duy James HEPATITIS PANEL, ACUTEon HBsAg Screen Negative Normal Negative [facility] Comment on above: Performed By: #### C BC #### [facility] [address] [place] [address] Dr. Duy James HCV AB Non-Reactive Normal Non Reactive [facility] Comment on above: Performed By: #### C BC #### [facility] [address] [place] [address] Dr. Duy James Hep A Ab, IgM Negative Normal Negative [facility] Comment on above: Performed By: #### C BC #### [facility] [address] [place] [address] Dr. Duy James Hep B Core Ab, IgM Negative Normal Negative [facility] [place] [facility] Comment on above: Performed By: #### C BC #### [facility] [address] [place] [address] Dr. Duy James Interpretation: Comment Normal [facility] Comment on above: Result Comment: Not infected with HCV unless early or acute infection is suspected (which may be delayed in an immunocompromised individual), or other evidence exists to indicate HCV infection. Performed By: #### C BC #### [facility] [address] [place] [address] Dr. Duy James CBC W MANUAL DIFFon 08-29-19 23 ATYPICAL LYMPH # Normal [facility] Comment on above: Performed By: #### B MP #### [facility] [address] [place] [address] Dr. Duy James ATYPICAL LYMPH % Normal [facility] Comment on above: Performed By: #### B MP #### [facility] [address] [place] [address] Dr. Duy James BAND # 0.0 103/ul Normal 0.0-0.3 [facility] Comment on above: Performed By: #### B MP #### [facility] [address] [place] [address] Dr. Duy James BAND % 0 % Normal 0-5 [facility] Comment on above: Performed By: #### B MP #### [facility] [address] [place] [address] Dr. Duy James BASOM # 0.00 103/ul Normal 0.00-0.10 [facility] Comment on above: Performed By: #### B MP #### [facility] [address] [place] [address] Dr. Duy James BASOM % 0.0 % Critically low 0.2-2.0 [facility] Comment on above: Performed By: #### B MP #### [facility] [address] [place] [address] Dr. Duy James BLAST # Normal [facility] Comment on above: Performed By: #### B MP #### [facility] [address] [place] [address] Dr. Duy James BLAST % Normal [facility] Comment on above: Performed By: #### B MP #### [facility] [address] [place] [address] Dr. Duy James CORRECTED WBC Normal 4.0-11.0 [facility] Comment on above: Performed By: #### B MP #### [facility] [address] [place] [address] Dr. Duy James EOS # 0.00 103/ul Normal 0.00-0.70 [facility] Comment on above: Performed By: #### B MP #### [facility] [address] [place], [place] [id number] Dr. Duy James EOS% 0.0 % Critically low 0.9-7.0 [facility] Comment on above: Performed By: #### B MP #### [facility] [address] [place] [address] Dr. Duy James HCT 36.8 % Critically low 42.0-54.0 [facility] Comment on above: Performed By: #### B MP #### [facility] [address] [place] [address] Dr. Duy James HGB 12.0 g/dl Critically low 14.0-18.0 [facility] Comment on above: Performed By: #### B MP #### [facility] [address] [place] [address] Dr. Duy James LYMPHM # 0.47 103/ul Critically low 1.20-3.80 [facility] Comment on above: Performed By: #### B MP #### [facility] [address] [place] [address] Dr. Duy James LYMPHM% 6.0 % Critically low 20.5-60.0 [facility] Comment on above: Performed By: #### B MP #### [facility] [address] [place] [address] Dr. Duy James MCH 28.4 pg Normal 25.9-34.0 [facility] Comment on above: Performed By: #### B MP #### [facility] [address] [place] [address] Dr. Duy James MCHC 32.6 g/dl Normal 29.9-35.2 [facility] Comment on above: Performed By: #### B MP #### [facility] [address] [place] [address] Dr. Duy James MCV 87.0 fL Normal 80.0-94.0 [facility] Comment on above: Performed By: #### B MP #### [facility] [address] [place] [address] Dr. Duy James METAMYELOCYTE # Normal [facility] Comment on above: Performed By: #### B MP #### [facility] [address] [place] [address] Dr. Duy James METAMYELOCYTE % Normal [facility] Comment on above: Performed By: #### B MP #### [facility] [address] [place] [address] Dr. Duy James MONOM# 0.40 103/ul Normal 0.30-0.80 [facility] Comment on above: Performed By: #### B MP #### [facility] [address] [place] [address] Dr. Duy James MONOM% 5.0 % Normal 1.7-12.0 [facility] Comment on above: Performed By: #### B MP #### [facility] [address] [place] [address] Dr. Duy James MPV 10.2 fL Normal 9.5-13.5 [facility] Comment on above: Performed By: #### B MP #### [facility] [address] [place] [address] Dr. Duy James MYELOCYTE # Normal [facility] Comment on above: Performed By: #### B MP #### [facility] [address] [place] [address] Dr. Duy James MYELOCYTE % Normal [facility] Comment on above: Performed By: #### B MP #### [facility] [address] [place] [address] Dr. Duy James NRBC Normal [facility] Comment on above: Performed By: #### B MP #### [facility] [address] [place] [address] Dr. Duy James PLT 205 103/ul Normal 150-450 [facility] Comment on above: Performed By: #### B MP #### [facility] [address] [place] [address] Dr. Duy James RBC 4.23 106/ul Critically low 4.70-6.10 [facility] Comment on above: Performed By: #### B MP #### [facility] [address] [place] [address] Dr. Duy James RDW 13.3 % Normal 11.0-15.0 [facility] Comment on above: Performed By: #### B MP #### [facility] [address] [place] [address] Dr. Duy James SEG # 7.03 103/ul Critically high 1.40-6.50 [facility] Comment on above: Performed By: #### B MP #### [facility] [address] [place] [address] Dr. Duy James SEG % 89.0 % Critically high 43.0-75.0 [facility] Comment on above: Performed By: #### B MP #### [facility] [address] [place] [address] Dr. Duy James WBC 7.9 103/ul Normal 4.0-11.0 [facility] Comment on above: Performed By: #### B MP #### [facility] [address] [place] [address] Dr. Duy James PROF 14(COMP METB)on 023 Albumin [Mass/Vol] 3.4 g/dL Normal 3.4-5.0 [facility] [place] [facility] Comment on above: Performed By: #### C BC #### [facility] [address] [place] [address] Dr. Duy James Albumin/Globulin [Mass ratio] 1.0 {ratio} Normal [facility] Comment on above: Performed By: #### C BC #### [facility] [address] [place] [address] Dr. Duy James ALP [Catalytic activity/Vol] 73 U/L Normal 46-116 [facility] Comment on above: Performed By: #### C BC #### [facility] [address] [place] [address] Dr. Duy James ALT [Catalytic activity/Vol] 66 U/L Critically high 16-63 [facility] Comment on above: Performed By: #### C BC #### [facility] [address] [place] [address] Dr. Duy James Anion gap [Moles/Vol] 10.6 mmol/L Normal [facility] Comment on above: Performed By: #### C BC #### [facility] [address] [place] [address] Dr. Duy James AST [Catalytic activity/Vol] 26 U/L Normal 15-37 [facility] Comment on above: Performed By: #### C BC #### [facility] [address] [address] [address] Duy James Bilirubin [Mass/Vol] 0.3 mg/dL Normal 0.2-1.0 [facility] Comment on above: Performed By: #### C BC #### [facility] [address] [place] [address] Dr. Duy James Calcium [Mass/Vol] 8.9 mg/dL Normal 8.5-10.1 [facility] [place] [facility] Comment on above: Performed By: #### C BC #### [facility] [address] [place] [address] Dr. Duy James Chloride [Moles/Vol] 106 mmol/L Normal 98-107 [facility] Comment on above: Performed By: #### C BC #### [facility] [address] [place] [address] Dr. Duy James CO2 [Moles/Vol] 29.3 mmol/L Normal 21.0-32.0 [facility] Comment on above: Performed By: #### C BC #### [facility] [address] [place] [address] Dr. Duy James Creatinine [Mass/Vol] 1.12 mg/dL Normal 0.70-1.30 [facility] Comment on above: Performed By: #### C BC #### [facility] [address] [address] [address] Duy James EGFR-AF [place]IZ[place] >60 Normal >=60 [facility] Comment on above: Performed By: #### C BC #### [facility] [address] [place] [address] Dr. Duy James EGFR-NON AF [place]IZ[place] >60 Normal >=60 [facility] Comment on above: Performed By: #### C BC #### [facility] [address] [place] [address] Dr. Duy James Globulin (S) [Mass/Vol] 3.3 g/dL Normal [facility] Comment on above: Performed By: #### C BC #### [facility] [address] [address] [address] Duy James Glucose [Mass/Vol] 157 mg/dL Critically high 74-106 [facility] Comment on above: Performed By: #### C BC #### [facility] [address] [place] [address] Dr. Duy James Potassium [Moles/Vol] 4.9 mmol/L Normal 3.5-5.1 [facility] Comment on above: Performed By: #### C BC #### [facility] [address] [place] [address] Dr. Duy James Protein [Mass/Vol] 6.7 g/dL Normal 6.4-8.2 [facility] [place] [facility] Comment on above: Performed By: #### C BC #### [facility] [address] [place] [address] Dr. Duy James Sodium [Moles/Vol] 141 mmol/L Normal 136-145 [facility] [place] [facility] Comment on above: Performed By: #### C BC #### [facility] [address] [place] [address] Dr. Duy James Urea nitrogen [Mass/Vol] 22.0 mg/dL Critically high 7.0-18.0 [facility] Comment on above: Performed By: #### C BC #### [facility] [address] [place] [address] Dr. Duy James Urea nitrogen/Creatinine [Mass ratio] 19.6 mg/mg Normal [facility] Comment on above: Performed By: #### C BC #### [facility] [address] [place] [address] Dr. Duy James MAGNESIUMon 08-27-2022 Magnesium [Mass/Vol] 2.0 mg/dL Normal 1.8-2.4 [facility] Comment on above: Performed By: #### C MP, MG #### [facility] [address] [address] [address] Duy James PROF 14(COMP METB)on 023 Albumin [Mass/Vol] 3.6 g/dL Normal 3.4-5.0 [facility] [place] [facility] Comment on above: Performed By: #### C MP, MG #### [facility] [address] [address] [address] Duy James Albumin/Globulin [Mass ratio] 0.9 {ratio} Normal [facility] Comment on above: Performed By: #### C MP, MG #### [facility] [address] [address] [address] Duy James ALP [Catalytic activity/Vol] 79 U/L Normal 46-116 [facility] Comment on above: Performed By: #### C MP, MG #### [facility] [address] [place] [address] Dr. Duy James ALT [Catalytic activity/Vol] 86 U/L Critically high 16-63 [facility] Comment on above: Performed By: #### C MP, MG #### [facility] [address] [place] [address] Dr. Duy James Anion gap [Moles/Vol] 14.3 mmol/L Normal [facility] Comment on above: Performed By: #### C MP, MG #### [facility] [address] [address] [address] Duy James AST [Catalytic activity/Vol] 38 U/L Critically high 15-37 [facility] Comment on above: Performed By: #### C MP, MG #### [facility] [address] [place] [address] Dr. Duy James Bilirubin [Mass/Vol] 0.4 mg/dL Normal 0.2-1.0 [facility] Comment on above: Performed By: #### C MP, MG #### [facility] [address] [place] [address] Dr. Duy James Calcium [Mass/Vol] 9.3 mg/dL Normal 8.5-10.1 [facility] [place] [facility] Comment on above: Performed By: #### C MP, MG #### [facility] [address] [address] [address] Duy James Chloride [Moles/Vol] 106 mmol/L Normal 98-107 [facility] Comment on above: Performed By: #### C MP, MG #### [facility] [address] [address] [address] Duy James CO2 [Moles/Vol] 27.1 mmol/L Normal 21.0-32.0 [facility] Comment on above: Performed By: #### C MP, MG #### [facility] [address] [address] [address] Duy James Creatinine [Mass/Vol] 1.17 mg/dL Normal 0.70-1.30 [facility] Comment on above: Performed By: #### C MP, MG #### [facility] [address] [place] [address] Dr. Duy James EGFR-AF [place] >60 Normal >=60 [facility] Comment on above: Performed By: #### C MP, MG #### [facility] [address] [address] [address] Duy James EGFR-NON AF [place]IZ[place] >60 Normal >=60 [facility] Comment on above: Performed By: #### C MP, MG #### [facility] [address] [place] [address] Dr. Duy James Globulin (S) [Mass/Vol] 3.8 g/dL Normal [facility] Comment on above: Performed By: #### C MP, MG #### [facility] [address] [address] [address] Duy James Glucose [Mass/Vol] 163 mg/dL Critically high 74-106 [facility] Comment on above: Performed By: #### C MP, MG #### [facility] [address] [place] [address] Dr. Duy James Potassium [Moles/Vol] 5.4 mmol/L Critically high 3.5-5.1 [facility] Comment on above: Performed By: #### C MP, MG #### [facility] [address] [address] [address] Duy James Protein [Mass/Vol] 7.4 g/dL Normal 6.4-8.2 [facility] [place] [facility] Comment on above: Performed By: #### C MP, MG #### [facility] [address] [place] [address] Dr. Duy James Sodium [Moles/Vol] 142 mmol/L Normal 136-145 [facility] [place] [facility] Comment on above: Performed By: #### C MP, MG #### [facility] [address] [place] [address] Dr. Duy James Urea nitrogen [Mass/Vol] 16.0 mg/dL Normal 7.0-18.0 [facility] Comment on above: Performed By: #### C MP, MG #### [facility] [address] [place] [address] Dr. Duy James Urea nitrogen/Creatinine [Mass ratio] 13.7 mg/mg Normal [facility] Comment on above: Performed By: #### C MP, MG #### [facility] [address] [place] [address] Dr. Duy James PROF CHEM 8 (BAS METB)on Anion gap [Moles/Vol] 15.1 mmol/L Normal [facility] Comment on above: Performed By: #### B MP #### [facility] [address] [place] [address] Dr. Duy James Calcium [Mass/Vol] 9.0 mg/dL Normal 8.5-10.1 [facility] [place] [facility] Comment on above: Performed By: #### B MP #### [facility] [address] [place] [address] Dr. Duy James Chloride [Moles/Vol] 105 mmol/L Normal 98-107 [facility] Comment on above: Performed By: #### B MP #### [facility] [address] [place] [address] Dr. Duy James CO2 [Moles/Vol] 27.0 mmol/L Normal 21.0-32.0 [facility] Comment on above: Performed By: #### B MP #### [facility] [address] [address] [address] Duy James Creatinine [Mass/Vol] 1.20 mg/dL Normal 0.70-1.30 [facility] Comment on above: Performed By: #### B MP #### [facility] [address] [address] [address] Duy James EGFR-AF CITIZEN [place] >60 Normal >=60 [facility] Comment on above: Performed By: #### B MP #### [facility] [address] [address] [address] Duy James EGFR-NON AF CITIZEN OF [place] >60 Normal >=60 [facility] Comment on above: Performed By: #### B MP #### [facility] [address] [place] [address] Dr. Duy James Glucose [Mass/Vol] 155 mg/dL Critically high 74-106 [facility] Comment on above: Performed By: #### B MP #### [facility] [address] [address] [address] Duy James Potassium [Moles/Vol] 5.1 mmol/L Normal 3.5-5.1 [facility] Comment on above: Performed By: #### B MP #### [facility] [address] [place] [address] Dr. Duy James Sodium [Moles/Vol] 142 mmol/L Normal 136-145 [facility] Comment on above: Performed By: #### B MP #### [facility] [address] [address] [address] Duy James Urea nitrogen [Mass/Vol] 19.0 mg/dL Critically high 7.0-18.0 [facility] Comment on above: Performed By: #### B MP #### [facility] [address] [address] [address] Duy James Urea nitrogen/Creatinine [Mass ratio] 15.8 mg/mg Normal [facility] Comment on above: Performed By: #### B MP #### [facility] [address] [place] [address] Dr. Duy James XR CHEST 2 Von [...] baumannii Not detected Normal NOT DETECTED [facility] Comment on above: Performed By: #### C BC #### [facility] [address] [place] [address] Dr. Duy James Bacteriodes fragilis Not detected Normal NOT DETECTED [facility] Comment on above: Performed By: #### C BC #### [facility] [address] [place] [address] Dr. Duy James BCID CONTROLS PASSED Normal [facility] Comment on above: Performed By: #### C BC #### [facility] [address] [place] [address] Dr. Duy James BCIDBTHD BLOOD CULTURE BOTTLE INFORMATION Normal [facility] Comment on above: Performed By: #### C BC #### [facility] [address] [place] [address] Dr. Duy James BCIDHD1 ANTIMICROBIAL RESISTANCE GENES Normal [facility] Comment on above: Performed By: #### C BC #### [facility] [address] [place] [address] Dr. Duy James BCIDHD2 SEE BELOW Normal [facility] Comment on above: Result Comment: Note : Antimicrobial resitance can occur via multiple mechanisms. A Not Detected result for the [employer] antomicrobial resistance gene assays does not indicate antimicrobial susceptibility. Subculturing is required for species identification and susceptibility testing of isolates. Performed By: #### C BC #### [facility] [address] [place] [address] Dr. Duy James BCIDHD3 Positive Normal [facility] Comment on above: Performed By: #### C BC #### [facility] [address] [place] [address] Dr. Duy James BCIDHD4 Negative Normal [facility] Comment on above: Performed By: #### C BC #### [facility] [address] [place] [address] Dr. Duy James BCIDHD5 YEAST Normal [facility] Comment on above: Performed By: #### C BC #### [facility] [address] [place] [address] Dr. Duy James Bottle Set: Set 1 Normal [facility] Comment on above: Performed By: #### C BC #### [facility] [address] [place] [address] Dr. Duy James Bottle: Anaerobic Normal [facility] Comment on above: Performed By: #### C BC #### [facility] [address] [place] [address] Dr. Duy Zamorano. neoformans/gattii Not detected Normal NOT DETECTED [facility] Comment on above: Performed By: #### C BC #### [facility] [address] [place] [address] Dr. Duy James Gala albicans Not detected Normal NOT DETECTED [facility] Comment on above: Performed By: #### C BC #### [facility] [address] [place] [address] Dr. Duy James Gala auris Not detected Normal NOT DETECTED [facility] Comment on above: Performed By: #### C BC #### [facility] [address] [place] [address] Dr. Duy James Gala glabrata Not detected Normal NOT DETECTED [facility] Comment on above: Performed By: #### C BC #### [facility] [address] [place] [address] Dr. Duy James Gala Krusei Not detected Normal NOT DETECTED [facility] Comment on above: Performed By: #### C BC #### [facility] [address] [place] [address] Dr. Duy James Gala Parapsilosis Not detected Normal NOT DETECTED [facility] Comment on above: Performed By: #### C BC #### [facility] [address] [address] [address] Duy James Gala Tropicalis Not detected Normal NOT DETECTED [facility] Comment on above: Performed By: #### C BC #### [facility] [address] [place] [address] Dr. Duy James CTX-M Resistant Gene Not Applicable Normal NOT DETECTE D [facility] Comment on above: Performed By: #### C BC #### [facility] [address] [place] [address] Dr. Duy James E. Cloacae complex Not detected Normal NOT DETECTED [facility] Comment on above: Performed By: #### C BC #### [facility] [address] [place] [address] Dr. Duy James E. faecalis Not detected Normal NOT DETECTED [facility] Comment on above: Performed By: #### C BC #### [facility] [address] [place] [address] Dr. Duy James E. faecium Not detected Normal NOT DETECTED [facility] Comment on above: Performed By: #### C BC #### [facility] [address] [place] [address] Dr. Duy James Enterobacteriaceae Not detected Normal NOT DETECTED [facility] Comment on above: Performed By: #### C BC #### [facility] [address] [place] [address] Dr. Duy James Escherichia coli Not detected Normal NOT DETECTED [facility] Comment on above: Performed By: #### C BC #### [facility] [address] [place] [address] Dr. Duy James H. influenzae Not detected Normal NOT DETECTED [facility] Comment on above: Performed By: #### C BC #### [facility] [address] [place] [address] Dr. Duy James IMP Resistant Gene Not Applicable Normal NOT DETECTED [facility] Comment on above: Performed By: #### C BC #### [facility] [address] [place] [address] Dr. Duy James K. oxytoca Not detected Normal NOT DETECTED [facility] Comment on above: Performed By: #### C BC #### [facility] [address] [place] [address] Dr. Duy James K. pneumoniae Not detected Normal NOT DETECTED [facility] Comment on above: Performed By: #### C BC #### [facility] [address] [place] [address] Dr. Duy James Klebsiella aerogenes Not detected Normal NOT DETECTED [facility] Comment on above: Performed By: #### C BC #### [facility] [address] [place] [address] Dr. Duy James KPC Resistant Gene Not Applicable Normal NOT DETECTED [facility] Comment on above: Performed By: #### C BC #### [facility] [address] [place] [address] Dr. Duy James List. monocytogenes Not detected Normal NOT DETECTED [facility] Comment on above: Performed By: #### C BC #### [facility] [address] [place] [address] Dr. Duy James Mcr-1 Resistant Gene Not Applicable Normal NOT DETECTE D [facility] Comment on above: Performed By: #### C BC #### [facility] [address] [place] [address] Dr. Duy James mecA/C Not Applicable Normal NOT DETECTED [facility] Comment on above: Performed By: #### C BC #### [facility] [address] [place] [address] Dr. Duy James mecA/C MREJ Not Applicable Normal NOT DETECTED [facility] Comment on above: Performed By: #### C BC #### [facility] [address] [place] [address] Dr. Duy James N. meningitidis Not detected Normal NOT DETECTED [facility] Comment on above: Performed By: #### C BC #### [facility] [address] [place] [address] Dr. Duy James NDM Resistant Gene Not Applicable Normal NOT DETECTED [facility] Comment on above: Performed By: #### C BC #### [facility] [address] [place] [address] Dr. Duy James Oxa-48-like Not Applicable Normal NOT DETECTED [facility] Comment on above: Performed By: #### C BC #### [facility] [address] [place] [address] Dr. Duy James Proteus Not detected Normal NOT DETECTED [facility] Comment on above: Performed By: #### C BC #### [facility] [address] [place] [address] Dr. Duy James Pseud. aeruginosa Not detected Normal NOT DETECTED [facility] Comment on above: Performed By: #### C BC #### [facility] [address] [place] [address] Dr. Duy James S. maltophilia Not detected Normal NOT DETECTED [facility] Comment on above: Performed By: #### C BC #### [facility] [address] [place] [address] Dr. Duy James Salmonella Not detected Normal NOT DETECTED [facility] Comment on above: Performed By: #### C BC #### [facility] [address] [place] [address] Dr. Duy James Seratia marcescens Not detected Normal NOT DETECTED [facility] Comment on above: Performed By: #### C BC #### [facility] [address] [place] [address] Dr. Duy James Site: L a/c Normal [facility] Comment on above: Performed By: #### C BC #### [facility] [address] [place] [address] Dr. Duy James Staph. aureus Not detected Normal NOT DETECTED [facility] Comment on above: Performed By: #### C BC #### [facility] [address] [place] [address] Dr. Duy James Staph. epidermidis Not detected Normal NOT DETECTED [facility] Comment on above: Performed By: #### C BC #### [facility] [address] [place] [address] Dr. Duy James Staph. lugdunensis Not detected Normal NOT DETECTED [facility] Comment on above: Performed By: #### C BC #### [facility] [address] [place] [address] Dr. Duy James Staphylococcus Detected Critically abnormal NOT DETECTED [facility] Comment on above: Performed By: #### C BC #### [facility] [address] [place] [address] Dr. Duy James Strep. agalactiae Not detected Normal NOT DETECTED [facility] Comment on above: Performed By: #### C BC #### [facility] [address] [place] [address] Dr. Duy James Strep. pneumoniae Not detected Normal NOT DETECTED [facility] Comment on above: Performed By: #### C BC #### [facility] [address] [place] [address] Dr. Duy James Strep. pyogenes Not detected Normal NOT DETECTED [facility] Comment on above: Performed By: #### C BC #### [facility] [address] [place] [address] Dr. Duy James Streptococcus Not detected Normal NOT DETECTED [facility] Comment on above: Performed By: #### C BC #### [facility] [address] [place] [address] Dr. Duy James Cullen/B Resist. Gene Not Applicable Normal NOT DETECTED [facility] Comment on above: Performed By: #### C BC #### [facility] [address] [place] [address] Dr. Duy James VIM Resistant Gene Not Applicable Normal NOT DETECTED [facility] Comment on above: Performed By: #### C BC #### [facility] [address] [place] [address] Dr. Duy James BLOOD GASES BTYon 08-26-2022 02 MODE NASAL CANNULA Normal [facility] Comment on above: Performed By: #### C BC #### [facility] [address] [place] [address] Dr. Duy James ALLENS TEST Positive [facility] Comment on above: Performed By: #### C BC #### [facility] [address] [place] [address] Dr. Duy James Base excess Calc (Bld) [Moles/Vol] -1.3000 mmol/L Normal -2.0-2.0 [facility] Comment on above: Performed By: #### C BC #### [facility] [address] [place] [address] Dr. Duy James BIPAP PRESSURE [facility] Comment on above: Performed By: #### C BC #### [facility] [address] [place] [address] Dr. Duy James CPAP [facility] Comment on above: Performed By: #### C BC #### [facility] [address] [place] [address] Dr. Duy James FIO2 [facility] Comment on above: Performed By: #### C BC #### [facility] [address] [place] [address] Dr. Duy James HCO3 (Bld) [Moles/Vol] 24.5 mmol/L Normal 22.0-26.0 [facility] Comment on above: Performed By: #### C BC #### [facility] [address] [place] [address] Dr. Duy James LPM 2 [facility] Comment on above: Performed By: #### C BC #### [facility] [address] [place] [address] Dr. Duy James MINUTE VOLUME Normal [facility] Comment on above: Performed By: #### C BC #### [facility] [address] [place] [address] Dr. Duy James Oxygen (Bld) [Partial pressure] 64.3 mm[Hg] Critically low 80.0-100.0 [facility] Comment on above: Performed By: #### C BC #### [facility] [address] [place] [address] Dr. Duy James Oxygen saturation in Blood 92.0 % Critically low 95.0-100.0 [facility] Comment on above: Performed By: #### C BC #### [facility] [address] [place] [address] Dr. Duy James PCO2 45.3 mmHg Critically high 35.0-45.0 [facility] Comment on above: Performed By: #### C BC #### [facility] [address] [place] [address] Dr. Duy James PEEP [facility] Comment on above: Performed By: #### C BC #### [facility] [address] [place] [address] Dr. Duy James pH (Bld) 7.341 [pH] Critically low 7.350-7.450 [facility] Comment on above: Performed By: #### C BC #### [facility] [address] [place] [address] Dr. Duy James [facility] Comment on above: Performed By: #### C BC #### [facility] [address] [place] [address] Dr. Duy James [facility] [place] Comment on above: Performed By: #### C BC #### [facility] [address] [place] [address] Dr. Duy James PUNCTURE SITE LR [facility] Comment on above: Performed By: #### C BC #### [facility] [address] [place] [address] Dr. Duy James RATE [facility] Comment on above: Performed By: #### C BC #### [facility] [address] [place] [address] Dr. Duy James VENT MODE [facility] Comment on above: Performed By: #### C BC #### [facility] [address] [place] [address] [facility] Comment on above: Performed By: #### C BC #### [facility] [address] [place] [address] Dr. Duy James BNPon 08-26-2022 Natriuretic peptide B (Bld) [Mass/Vol] 2516.0 pg/mL Critically high <=900.0 [facility] Comment on above: Performed By: #### B MP #### [facility] [address] [place] [address] Dr. Duy James CBC AUTO DIFFon 08-26-2022 BASO # 0.1 103/ul Normal 0.0-0.1 [facility] Comment on above: Performed By: #### C BC #### [facility] [address] [place] [address] Dr. Duy James Basophils/100 WBC (Bld) 1.2 % Normal 0.2-2.0 [facility] Comment on above: Performed By: #### C BC #### [facility] [address] [place] [address] Dr. Duy James EO # 0.4 103/ul Normal 0.0-0.7 [facility] Comment on above: Performed By: #### C BC #### [facility] [address] [place] [address] Dr. Duy James Eosinophils/100 WBC (Bld) 4.6 % Normal 0.9-7.0 [facility] Comment on above: Performed By: #### C BC #### [facility] [address] [place] [address] Dr. Duy James Erythrocyte distribution width (RBC) [Ratio] 13.2 % Normal 11.0-15.0 [facility] Comment on above: Performed By: #### C BC #### [facility] [address] [place] [address] Dr. Duy James Hematocrit (Bld) [Volume fraction] 41.1 % Critically low 42.0-54.0 [facility] Comment on above: Performed By: #### C BC #### [facility] [address] [place] [address] Dr. Duy James Hemoglobin (Bld) [Mass/Vol] 13.8 g/dL Critically low 14.0-18.0 [facility] Comment on above: Performed By: #### C BC #### [facility] [address] [place] [address] Dr. Duy James IG # 0.03 10e3/ul Normal 0.00-0.03 [facility] Comment on above: Performed By: #### C BC #### [facility] [address] [place] [address] Dr. Duy James IG % 0.4 % Normal 0.0-0.5 [facility] Comment on above: Performed By: #### C BC #### [facility] [address] [place] [address] Dr. Duy James LYMPH # 2.9 103/ul Normal 1.2-3.8 [facility] Comment on above: Performed By: #### C BC #### [facility] [address] [place] [address] Dr. Duy James Lymphocytes/100 WBC (Bld) 35.3 % Normal 20.5-60.0 [facility] Comment on above: Performed By: #### C BC #### [facility] [address] [place] [address] Dr. Duy James MANUAL DIFF REQ NO Normal [facility] Comment on above: Performed By: #### C BC #### [facility] [address] [place] [address] Dr. Duy James MCH (RBC) [Entitic mass] 28.9 pg Normal 25.9-34.0 [facility] Comment on above: Performed By: #### C BC #### [facility] [address] [place] [address] Dr. Duy James MCHC (RBC) [Mass/Vol] 33.6 g/dL Normal 29.9-35.2 [facility] Comment on above: Performed By: #### C BC #### [facility] [address] [place] [address] Dr. Duy James MCV (RBC) [Entitic vol] 86.2 fL Normal 80.0-94.0 [facility] Comment on above: Performed By: #### C BC #### [facility] [address] [place] [address] Dr. Duy James MONO # 0.6 103/ul Normal 0.3-0.8 [facility] Comment on above: Performed By: #### C BC #### [facility] [address] [place] [address] Dr. Duy James Monocytes/100 WBC (Bld) 7.1 % Normal 1.7-12.0 [facility] Comment on above: Performed By: #### C BC #### [facility] [address] [place] [address] Dr. Duy James NEUT # 4.2 103/ul Normal 1.4-6.5 [facility] Comment on above: Performed By: #### C BC #### [facility] [address] [place] [address] Dr. Dyu James Neutrophils/100 WBC (Bld) 51.4 % Normal 43.0-75.0 [facility] Comment on above: Performed By: #### C BC #### [facility] [address] [place] [address] Dr. Duy James Platelet mean volume (Bld) [Entitic vol] 10.1 fL Normal 9.5-13.5 [facility] Comment on above: Performed By: #### C BC #### [facility] [address] [place] [address] Dr. Duy James PLT 264 103/ul Normal 150-450 [facility] Comment on above: Performed By: #### C BC #### [facility] [address] [place] [address] Dr. Duy James RBC 4.77 106/ul Normal 4.70-6.10 [facility] Comment on above: Performed By: #### C BC #### [facility] [address] [place] [address] Dr. Duy James WBC 8.2 103/ul Normal 4.0-11.0 [facility] Comment on above: Performed By: #### C BC #### [facility] [address] [place] [address] Dr. Duy James CTA CHEST WO W [...] B MP #### [facility] [address] [place] [address] Dr. Duy James Covid-19 PCR ([facility])on SARS-CoV-2 (COVID-19) RNA RICKY+probe Ql (Unsp [...] for this test is supported by the [place] of Health and Human Service's declaration that [...] C BC #### [facility] [address] [place] [address] Dr. uDy James D-DIMERon 08-26-2022 D-DIMER 1.10 mg/L FEU Critically high <=0.59 [facility] Comment on above: Performed By: #### D DIM #### [facility] [address] [place] [address] Dr. Duy James D-DIMER COMMENTS SEE BELOW Normal [facility] Comment on above: Result Comment: Incr [...] D DIM #### [facility] [address] [place] [address] Dr. Duy James INFLUENZA A AND B AGon 08-26 INFLUANEGH SEE BELOW Normal [facility] Comment on above: Result Comment: Nega tive for Flu A protein angiten. Infection due to Flu A cannot be ruled out. Flu A angiten in the sample may be below the detection limit of the test. Performed By: #### I NFLUAB #### [facility] [address] [place] [address] Dr. Duy James INFLUBNEGH SEE BELOW Normal [facility] Comment on above: Result Comment: Nega tive for Flu B protein antigen. Infection due to Flu B cannot be ruled out. Flu B antigen in the sample may be below the detection limit of the test. Performed By: #### I NFLUAB #### [facility] [address] [place] [address] Dr. Duy James INFLUENZA A AG Negative Normal NEGATIVE SEE COMMENT [facility] Comment on above: Performed By: #### I NFLUAB #### [facility] [address] [address] [address] Duy aJmes INFLUENZA B AG Negative Normal NEGATIVE SEE COMMENT [facility] Comment on above: Performed By: #### I NFLUAB #### [facility] [address] [place] [address] Dr. Duy James LACTATE/LACTIC ACIDon 2022 Lactate [Moles/Vol] 1.8 mmol/L Normal 0.4-1.9 [facility] Comment on above: Performed By: #### L ACT #### [facility] [address] [place] [address] Dr. Duy James PROF 14(COMP METB)on 023 Albumin [Mass/Vol] 3.7 g/dL Normal 3.4-5.0 [facility] Comment on above: Performed By: #### B STAFF [employer] OFFICER, CMP, HSTROPN #### [facility] [address] [place] [address] Dr. Duy James Albumin/Globulin [Mass ratio] 1.0 {ratio} Normal [facility] Comment on above: Performed By: #### B STAFF AIR DEFENSE OFFICER, CMP, HSTROPN #### [facility] [address] [place] [address] Dr. Duy James ALP [Catalytic activity/Vol] 84 U/L Normal 46-116 [facility] Comment on above: Performed By: #### B STAFF [employer] DEFENSE OFFICER, CMP, HSTROPN #### [facility] [address] [place] [address] Dr. Duy James ALT [Catalytic activity/Vol] 103 U/L Critically high 16-63 [facility] Comment on above: Performed By: #### B STAFF [employer] DEFENSE OFFICER, CMP, HSTROPN #### [facility] [address] [place] [address] Dr. Duy James Anion gap [Moles/Vol] 15.5 mmol/L Normal [facility] Comment on above: Performed By: #### B STAFF [employer] DEFENSE OFFICER, CMP, HSTROPN #### [facility] [address] [address] [address] Duy James AST [Catalytic activity/Vol] 62 U/L Critically high 15-37 [facility] Comment on above: Performed By: #### B STAFF [employer] DEFENSE OFFICER, CMP, HSTROPN #### [facility] [address] [address] [address] Duy James Bilirubin [Mass/Vol] 0.3 mg/dL Normal 0.2-1.0 [facility] Comment on above: Performed By: #### B STAFF [employer] DEFENSE OFFICER, CMP, HSTROPN #### [facility] [address] [place] [address] Dr. Duy James Calcium [Mass/Vol] 8.8 mg/dL Normal 8.5-10.1 [facility] Comment on above: Performed By: #### B STAFF [employer] DEFENSE OFFICER, CMP, HSTROPN #### [facility] [address] [place] [address] Dr. Duy James Chloride [Moles/Vol] 106 mmol/L Normal 98-107 [facility] Comment on above: Performed By: #### B STAFF [employer] DEFENSE OFFICER, CMP, HSTROPN #### [facility] [address] [address] [address] Duy James CO2 [Moles/Vol] 25.9 mmol/L Normal 21.0-32.0 [facility] Comment on above: Performed By: #### B STAFF [employer] DEFENSE OFFICER, CMP, HSTROPN #### [facility] [address] [place] [address] Dr. Duy James Creatinine [Mass/Vol] 1.32 mg/dL Critically high 0.70-1.30 [facility] Comment on above: Performed By: #### B STAFF [employer] DEFENSE OFFICER, CMP, HSTROPN #### [facility] [address] [place] [address] Dr. Duy James EGFR-AF CITIZEN OF [place] >60 Normal >=60 [facility] Comment on above: Performed By: #### B STAFF AIR DEFENSE OFFICER, CMP, HSTROPN #### [facility] [address] [place] [address] Dr. Duy James EGFR-NON AF CITIZEN OF [place] 54 mL/min/1.73m2 Critically low >=60 [facility] Comment on above: Performed By: #### B STAFF [employer] DEFENSE OFFICER, CMP, HSTROPN #### [facility] [address] [address] [address] Duy James Globulin (S) [Mass/Vol] 3.6 g/dL Normal [facility] Comment on above: Performed By: #### B STAFF [employer] DEFENSE OFFICER, CMP, HSTROPN #### [facility] [address] [address] [address] Duy James Glucose [Mass/Vol] 146 mg/dL Critically high 74-106 [facility] Comment on above: Performed By: #### B STAFF [employer] DEFENSE OFFICER, CMP, HSTROPN #### [facility] [address] [place] [address] Dr. Duy James Potassium [Moles/Vol] 4.4 mmol/L Normal 3.5-5.1 [facility] Comment on above: Performed By: #### B STAFF [employer] DEFENSE OFFICER, CMP, HSTROPN #### [facility] [address] [place] [address] Dr. Duy James Protein [Mass/Vol] 7.3 g/dL Normal 6.4-8.2 [facility] Comment on above: Performed By: #### B STAFF [employer] DEFENSE OFFICER, CMP, HSTROPN #### [facility] [address] [place] [address] Dr. Duy James Sodium [Moles/Vol] 143 mmol/L Normal 136-145 [facility] Comment on above: Performed By: #### B STAFF [employer] DEFENSE OFFICER, CMP, HSTROPN #### [facility] [address] [place] [address] Dr. Duy James Urea nitrogen [Mass/Vol] 15.0 mg/dL Normal 7.0-18.0 [facility] Comment on above: Performed By: #### B STAFF [employer] DEFENSE OFFICER, CMP, HSTROPN #### [facility] [address] [place] [address] Dr. Duy James Urea nitrogen/Creatinine [Mass ratio] 11.4 mg/mg Normal [facility] Comment on above: Performed By: #### B STAFF [employer] DEFENSE OFFICER, CMP, HSTROPN #### [facility] [address] [place] [address] Dr. Duy James TROPONIN, HIGH SENSITIVITYon 08-26-2022 HSTROP 41.1 pg/mL Normal 4.0-76.1 [facility] Comment on above: Result Comment: CUT- OFF POINTS HAVE BEEN ESTABLISHED BASED ON THE FOURTH UNIVERSAL DEFINITIONS OF MYOCARDIAL INFARCTION. THE UPPER REFERENCE LIMIT (URL) OF TROPONIN, DEFINED THE 99TH PERCENTILE OF cTnI DISTRIBUTION IN A REFERENCE POPULATION, HAS BEEN CONFIRMED THE DECISION THRESHOLD FOR DC DIAGNOSIS. Performed By: #### B MP #### [facility] [address] [place] [address] Dr. Duy James CBC AUTO DIFFon 05-18-2022 BASO # 0.1 103/ul Normal 0.0-0.1 [facility] Comment on above: Performed By: #### C BC #### [facility] [address] [place] [address] Dr. Duy James Basophils/100 WBC (Bld) 1.5 % Normal 0.2-2.0 [facility] Comment on above: Performed By: #### C BC #### [facility] [address] [place] [address] Dr. Duy James EO # 0.3 103/ul Normal 0.0-0.7 [facility] Comment on above: Performed By: #### C BC #### [facility] [address] [place] [address] Dr. Duy James Eosinophils/100 WBC (Bld) 4.7 % Normal 0.9-7.0 [facility] Comment on above: Performed By: #### C BC #### [facility] [address] [place] [address] Dr. Duy James Erythrocyte distribution width (RBC) [Ratio] 12.8 % Normal 11.0-15.0 [facility] Comment on above: Performed By: #### C BC #### [facility] [address] [place] [address] Dr. Duy James Hematocrit (Bld) [Volume fraction] 39.1 % Critically low 42.0-54.0 [facility] Comment on above: Performed By: #### C BC #### [facility] [address] [place] [address] Dr. Duy James Hemoglobin (Bld) [Mass/Vol] 13.2 g/dL Critically low 14.0-18.0 [facility] Comment on above: Performed By: #### C BC #### [facility] [address] [place] [address] Dr. Duy James IG # 0.03 10e3/ul Normal 0.00-0.03 [facility] Comment on above: Performed By: #### C BC #### [facility] [address] [place] [address] Dr. Duy James IG % 0.5 % Normal 0.0-0.5 [facility] Comment on above: Performed By: #### C BC #### [facility] [address] [place] [address] Dr. Duy James LYMPH # 1.4 103/ul Normal 1.2-3.8 [facility] Comment on above: Performed By: #### C BC #### [facility] [address] [place] [address] Dr. Duy James Lymphocytes/100 WBC (Bld) 23.8 % Normal 20.5-60.0 [facility] Comment on above: Performed By: #### C BC #### [facility] [address] [place] [address] Dr. Duy James MANUAL DIFF REQ NO Normal [facility] Comment on above: Performed By: #### C BC #### [facility] [address] [place] [address] Dr. Duy James MCH (RBC) [Entitic mass] 28.8 pg Normal 25.9-34.0 [facility] Comment on above: Performed By: #### C BC #### [facility] [address] [place] [address] Dr. Duy James MCHC (RBC) [Mass/Vol] 33.8 g/dL Normal 29.9-35.2 [facility] Comment on above: Performed By: #### C BC #### [facility] [address] [address] [address] Duy James MCV (RBC) [Entitic vol] 85.2 fL Normal 80.0-94.0 [facility] Comment on above: Performed By: #### C BC #### [facility] [address] [address] [address] Duy James MONO # 0.5 103/ul Normal 0.3-0.8 [facility] Comment on above: Performed By: #### C BC #### [facility] [address] [address] [address] Duy James Monocytes/100 WBC (Bld) 7.8 % Normal 1.7-12.0 [facility] Comment on above: Performed By: #### C BC #### [facility] [address] [address] [address] Duy James NEUT # 3.7 103/ul Normal 1.4-6.5 [facility] Comment on above: Performed By: #### C BC #### [facility] [address] [address] [address] Duy James Neutrophils/100 WBC (Bld) 61.7 % Normal 43.0-75.0 [facility] Comment on above: Performed By: #### C BC #### [facility] [address] [address] [address] Duy Jaems Platelet mean volume (Bld) [Entitic vol] 9.6 fL Normal 9.5-13.5 [facility] Comment on above: Performed By: #### C BC #### [facility] [address] [address] [address] Duy James PLT 199 103/ul Normal 150-450 [facility] Comment on above: Performed By: #### C BC #### [facility] [id number] Duy James RBC 4.59 106/ul Critically low 4.70-6.10 [facility] Comment on above: Performed By: #### C BC #### [facility] [address] [address] [address] Duy James WBC 6.0 103/ul Normal 4.0-11.0 [facility] Comment on above: Performed By: #### C BC #### [facility] [address] [place] [address] Dr. Duy James METHYLMALONIC ACID (MMA)on 0 03-03-2022 Methylmalonic Acid, Serum 232 nmol/L Normal 0-378 [facility] Comment on above: Performed By: #### M MA2 #### [facility] [address] [place] [address] Dr. Duy James CBC AUTO DIFFon 02-25-2022 BASO # 0.1 103/ul Normal 0.0-0.1 [facility] Comment on above: Performed By: #### C BC #### [facility] [address] [place] [address] Dr. Duy James Basophils/100 WBC (Bld) 1.3 % Normal 0.2-2.0 [facility] Comment on above: Performed By: #### C BC #### [facility] [address] [place] [address] Dr. Duy James EO # 0.2 103/ul Normal 0.0-0.7 [facility] Comment on above: Performed By: #### C BC #### [facility] [address] [place] [address] Dr. Duy James Eosinophils/100 WBC (Bld) 4.8 % Normal 0.9-7.0 [facility] Comment on above: Performed By: #### C BC #### [facility] [address] [place] [address] Dr. Duy James Erythrocyte distribution width (RBC) [Ratio] 13.9 % Normal 11.0-15.0 [facility] Comment on above: Performed By: #### C BC #### [facility] [address] [place] [address] Dr. Duy James Hematocrit (Bld) [Volume fraction] 36.2 % Critically low 42.0-54.0 [facility] Comment on above: Performed By: #### C BC #### [facility] [address] [address] [address] Duy James Hemoglobin (Bld) [Mass/Vol] 12.2 g/dL Critically low 14.0-18.0 [facility] Comment on above: Performed By: #### C BC #### [facility] [address] [address] [address] Duy James IG # 0.01 10e3/ul Normal 0.00-0.03 [facility] Comment on above: Performed By: #### C BC #### [facility] [address] [place] [address] Dr. Duy James IG % 0.2 % Normal 0.0-0.5 [facility] Comment on above: Performed By: #### C BC #### [facility] [address] [place] [address] Dr. Duy James LYMPH # 1.3 103/ul Normal 1.2-3.8 [facility] Comment on above: Performed By: #### C BC #### [facility] [address] [place] [address] Dr. Duy James Lymphocytes/100 WBC (Bld) 29.3 % Normal 20.5-60.0 [facility] Comment on above: Performed By: #### C BC #### [facility] [address] [place] [address] Dr. Duy James MANUAL DIFF REQ NO Normal [facility] Comment on above: Performed By: #### C BC #### [facility] [address] [place] [address] Dr. Duy James MCH (RBC) [Entitic mass] 29.5 pg Normal 25.9-34.0 [facility] Comment on above: Performed By: #### C BC #### [facility] [address] [place] [address] Dr. Duy James MCHC (RBC) [Mass/Vol] 33.7 g/dL Normal 29.9-35.2 [facility] Comment on above: Performed By: #### C BC #### [facility] [address] [address] [address] Duy James MCV (RBC) [Entitic vol] 87.7 fL Normal 80.0-94.0 [facility] Comment on above: Performed By: #### C BC #### [facility] [address] [address] [address] Duy James MONO # 0.4 103/ul Normal 0.3-0.8 [facility] Comment on above: Performed By: #### C BC #### [facility] [address] [address] [address] Duy James Monocytes/100 WBC (Bld) 9.4 % Normal 1.7-12.0 [facility] Comment on above: Performed By: #### C BC #### [facility] [address] [place] [address] Dr. Duy James NEUT # 2.5 103/ul Normal 1.4-6.5 [facility] Comment on above: Performed By: #### C BC #### [facility] [address] [place] [address] Dr. Duy James Neutrophils/100 WBC (Bld) 55.0 % Normal 43.0-75.0 [facility] Comment on above: Performed By: #### C BC #### [facility] [address] [place] [address] Dr. Duy James Platelet mean volume (Bld) [Entitic vol] 9.4 fL Critically low 9.5-13.5 [facility] Comment on above: Performed By: #### C BC #### [facility] [address] [place] [address] Dr. Duy James PLT 142 103/ul Critically low 150-450 [facility] Comment on above: Performed By: #### C BC #### [facility] [address] [address] [address] Duy James RBC 4.13 106/ul Critically low 4.70-6.10 [facility] Comment on above: Performed By: #### C BC #### [facility] [address] [address] [address] Duy James WBC 4.6 103/ul Normal 4.0-11.0 [facility] Comment on above: Performed By: #### C BC #### [facility] [address] [place] [address] Dr. Duy James FERRITINon 02-25-2022 Ferritin [Mass/Vol] 274.0 ng/mL Normal 26.0-388.0 [facility] Comment on above: Performed By: #### C BC #### [facility] [address] [place] [address] Dr. Duy James IRON AND TIBCon 02-25-2022 % SATURATION 33.8 % Normal [facility] Comment on above: Performed By: #### C BC #### [facility] [address] [place] [address] Dr. Duy James Iron [Mass/Vol] 97.0 ug/dL Normal 65.0-175.0 [facility] Comment on above: Performed By: #### C BC #### [facility] [address] [place] [address] Dr. Duy James TIBC DIRECT 287.0 ug/dL Normal 250.0-450.0 [facility] Comment on above: Performed By: #### C BC #### [facility] [address] [place] [address] Dr. Duy James VIT B12 AND FOLATEon 022 Cobalamin (Vitamin B12) [Mass/Vol] 817.0 pg/mL Normal 193.0-986.0 [facility] Comment on above: Performed By: #### C BC #### [facility] [address] [place] [address] Dr. Duy James FOLATE 16.90 ng/mL Normal 8.60-58.90 [facility] Comment on above: Performed By: #### C BC #### [facility] [address] [place] [address] Dr. Duy James XR CHEST 2 Von [...] by: ALEXA MCKENZIE Date: 2021-12-28 13:59 Normal [facility] COVID Quick Testingon 2021 Result Negative [facility] Other Quick Fluon 08-07-2021 FLUAV Ab CF (S) [Titer] Negative [facility] Other FLUBV Ab CF (S) [Titer] Negative [facility] Other COVID Quick Testingon 2020 Result Positive [facility] Other Vital Signs Date Time Vital Sign Value Performing Clinician Facility 02-29-2024 09:55-0400 Body height 177.8 cm [facility] 02-29-2024 09:55-0400 Body mass index (BMI) [Ratio] 33.7 kg/m2 [facility] 02-29-2024 09:55-0400 Body weight 106.65 kg [facility] 02-29-2024 09:55-0400 Diastolic blood pressure 65 mm[Hg] [facility] 02-29-2024 09:55-0400 Heart rate 67 /min [facility] 02-29-2024 09:55-0400 Respiratory rate 12 /min [facility] 02-29-2024 09:55-0400 Systolic blood pressure 151 mm[Hg] [facility] 12-25-2023 07:50-0400 Diastolic blood pressure 66 mm[Hg] Meghan Lue [facility] 12-25-2023 07:50-0400 Heart rate 57 /min [facility] Lue [facility] 12-25-2023 07:50-0400 Mean blood pressure 91 mm[Hg] [facility]han Lue [facility] 12-25-2023 07:50-0400 Systolic blood pressure 143 mm[Hg] [facility] L[facility] 12-25-2023 07:49-0400 Heart rate 62 /min [facility] 12-25-2023 07:49-0400 SaO2% (BldA) [Mass fraction] 98 % [facility]han Lue [facility] 12-25-2023 07:48-0400 Body temperature 98.06 [degF] [facility] L[facility] 12-25-2023 07:48-0400 Blood Pressure Location Meghan Lue [facility] 12-25-2023 07:48-0400 Diastolic blood pressure 61 mm[Hg] [facility] L[facility] 12-25-2023 07:48-0400 Mean blood pressure 95 mm[Hg] [facility]han Lue [facility] 12-25-2023 07:48-0400 Systolic blood pressure 164 mm[Hg] [facility] L[facility] 12-25-2023 07:48-0400 Respiratory rate 16 /min [facility] L[facility] 11-29-2023 10:55-0400 Blood Pressure Location Meghan Lue [facility] 11-29-2023 10:55-0400 Diastolic blood pressure 74 mm[Hg] Meghan Lue [facility] 11-29-2023 10:55-0400 Heart rate 68 /min [facility] Lue [facility] 11-29-2023 10:55-0400 Respiratory rate 16 /min [facility]han Lue [facility] 11-29-2023 10:55-0400 Systolic blood pressure 163 mm[Hg] [facility]han Lue [facility] 11-28-2023 08:42-0400 Body height 177.8 cm [facility] 11-28-2023 08:42-0400 Body mass index (BMI) [Ratio] 33.2 kg/m2 [facility] 11-28-2023 08:42-0400 Body weight 105 kg [facility] 11-28-2023 08:42-0400 Diastolic blood pressure 80 mm[Hg] [facility] 11-28-2023 08:42-0400 Heart rate 64 /min [facility] 11-28-2023 08:42-0400 Respiratory rate 12 /min [facility] 11-28-2023 08:42-0400 Systolic blood pressure 188 mm[Hg] [facility] 06-16-2023 10:00-0500 Diastolic blood pressure 92 mm[Hg] [facility] 06-16-2023 10:00-0500 Mean blood pressure 115 mm[Hg] [facility] 06-16-2023 10:00-0500 Systolic blood pressure 162 mm[Hg] [facility] 06-16-2023 09:44-0500 Blood Pressure Location [facility]han Lue [facility] 06-16-2023 09:44-0500 Body temperature 97.16 [degF] [facility] 06-16-2023 09:44-0500 Diastolic blood pressure 88 mm[Hg] [facility] Lue [facility] 06-16-2023 09:44-0500 Heart rate 78 /min [facility] Lue [facility] 06-16-2023 09:44-0500 Systolic blood pressure 144 mm[Hg] [facility] 06-06-2023 17:10-0500 Diastolic blood pressure 70 mm[Hg] [facility] Lue [facility] 06-06-2023 17:10-0500 Heart rate 60 /min [facility] Lue [facility] 06-06-2023 17:10-0500 Respiratory rate 16 /min [facility] L[facility] 06-06-2023 17:10-0500 SaO2% (BldA) [Mass fraction] 100 % [facility] Lue [facility] 06-06-2023 17:10-0500 Systolic blood pressure 120 mm[Hg] [facility]han Lue [facility] 06-06-2023 17:02-0500 Heart rate 62 /min [facility] L[facility] 06-06-2023 17:02-0500 SaO2% (BldA) [Mass fraction] 100 % [facility]han Lue [facility] 06-06-2023 17:02-0500 Respiratory rate 16 /min [facility] L[facility] 06-06-2023 16:52-0500 Diastolic blood pressure 56 mm[Hg] [facility] Lue [facility] 06-06-2023 16:52-0500 Heart rate 60 /min [facility]han Lue [facility] 06-06-2023 16:52-0500 SaO2% (BldA) [Mass fraction] 97 % [facility]han Lue [facility] 06-06-2023 16:52-0500 Systolic blood pressure 89 mm[Hg] [facility]han Lue [facility] 06-06-2023 16:29-0500 Diastolic blood pressure 89 mm[Hg] [facility]han Lue [facility] 06-06-2023 16:29-0500 Systolic blood pressure 154 mm[Hg] [facility] Lue [facility] 06-06-2023 14:00-0500 Blood Pressure Location Meghan Lue [facility] 06-06-2023 14:00-0500 Mean blood pressure 84 mm[Hg] [facility] Lue [facility] 06-06-2023 14:00-0500 Respiratory rate 18 /min [facility] Lue [facility] 05-10-2023 10:54-0500 Blood Pressure Location Meghan Lue [facility] 05-10-2023 10:54-0500 Diastolic blood pressure 76 mm[Hg] Meghan Lue [facility] 05-10-2023 10:54-0500 Heart rate 68 /min [facility] Lue [facility] 05-10-2023 10:54-0500 Respiratory rate 16 /min Meghan Lue [facility] 05-10-2023 10:54-0500 Systolic blood pressure 132 mm[Hg] Meghan Lue [facility] 04-11-2023 11:40-0400 Blood Pressure Location THERESA LONNIE [facility] 04-11-2023 11:40-0400 Diastolic blood pressure 75 mm[Hg] THERESA LONNIE [facility] 04-11-2023 11:40-0400 Heart rate 68 /min THERESA LONNIE [facility] 04-11-2023 11:40-0400 Respiratory rate 16 /min THERESA LONNIE [facility] 04-11-2023 11:40-0400 Systolic blood pressure 134 mm[Hg] THERESA LONNIE [facility] 12-20-2022 10:11-0400 Blood Pressure Location THERESA LONNIE [facility] 12-20-2022 10:11-0400 Diastolic blood pressure 80 mm[Hg] THERESA LONNIE [facility] 12-20-2022 10:11-0400 Heart rate 70 /min THERESA LONNIE [facility] 12-20-2022 10:11-0400 Respiratory rate 16 /min THERESA LONNIE [facility] 12-20-2022 10:11-0400 Systolic blood pressure 140 mm[Hg] THERESA FLEMING [facility] 11-23-2022 08:30-0400 Body height 177.8 cm [facility] Other [employer] Other 11-23-2022 08:30-0400 Body mass index (BMI) [Ratio] 32.42 kg/m2 G[facility] Other [employer] Other 11-23-2022 08:30-0400 Body weight 102.51 kg Gio Ball Other [employer] Other 11-23-2022 08:30-0400 Diastolic blood pressure 69 mm[Hg] Gio Ball Other [employer] Other 11-23-2022 08:30-0400 Respiratory rate 12 /min Gio Ball Other [employer] Other 11-23-2022 08:30-0400 Systolic blood pressure 162 mm[Hg] Gio Ball Other [employer] Other 08-31-2022 10:00-0500 Body height 177.8 cm Gio Ball Other [employer] Other 08-31-2022 10:00-0500 Body mass index (BMI) [Ratio] 33.43 kg/m2 Gio Ball Other [employer] Other 08-31-2022 10:00-0500 Body weight 105.69 kg Gio Ball Other [employer] Other 08-31-2022 10:00-0500 Diastolic blood pressure 80 mm[Hg] Gio Ball Other [employer] Other 08-31-2022 10:00-0500 Respiratory rate 16 /min Gio Cavanaugh Other [facility] Other 08-31-2022 10:00-0500 SaO2% (BldA) [Mass fraction] 98 % Gio Ball Other [facility] Other 08-31-2022 10:00-0500 Systolic blood pressure 132 mm[Hg] iGo Cavanaugh Other [facility] Other 10-26-2021 09:11-0400 Blood Pressure Location Daniel Kern Jr. [facility] 10-26-2021 09:11-0400 Diastolic blood pressure 77 mm[Hg] Daniel Kern Jr. [facility] 10-26-2021 09:11-0400 Heart rate 78 /min Daniel Kern Jr. [facility] 10-26-2021 09:11-0400 Respiratory rate 16 /min Daniel Kern Jr. [facility] 10-26-2021 09:11-0400 Systolic blood pressure 181 mm[Hg] Daniel Kern Jr. [facility] 08-07-2021 11:00-0500 Body height 177.8 cm Gina Starks Other [facility] Other 08-07-2021 11:00-0500 Body mass index (BMI) [Ratio] 30.13 kg/m2 Gina Starks Other [employer] Other 08-07-2021 11:00-0500 Body temperature 101 [degF] Gina Starks Other [employer] Other 08-07-2021 11:00-0500 Body weight 95.26 kg Gina Starks Other [employer] Other 08-07-2021 11:00-0500 Respiratory rate 18 /min Gina Starks Other [employer] Other 08-07-2021 11:00-0500 SaO2% (BldA) [Mass fraction] 97 % Gina Starks Other [employer] Other 05-24-2021 18:15-0500 Body height 177.8 cm Sybil Rosa Other [employer] Other 05-24-2021 18:15-0500 Body mass index (BMI) [Ratio] 30.85 kg/m2 Sybil Rosa Other [employer] Other 05-24-2021 18:15-0500 Body temperature 96.9 [degF] Sybil Lee Other [employer] Other 05-24-2021 18:15-0500 Body weight 97.52 kg Sybil Rosa Other [employer] Other 05-24-2021 18:15-0500 SaO2% (BldA) [Mass fraction] 91 % Sybil Lee Other [employer] Other Encounters Encounter Date Encounter Type Care Provider Facility Start: 10-16-2024 ambulatory Meghan Brito Facility:[facility] Start: 10-03-2024 ambulatory Meghan Brito Facility:[facility] Start: 09-04-2024 End: 09-04-2024 ambulatory [facility] Start: 03-29-2024 End: 03-29-2024 ambulatory Meghan Brito Facility:[facility] Start: 03-29-2024 End: 03-29-2024 Patient encounter procedure Meghan Brito [facility] Start: 03-06-2024 Non-patient / Non-visit DO Heath Cavanaugh Work Phone: [facility] Work Phone: Start: 03-06-2024 End: 03-06-2024 ambulatory DO Gio Ball Work Phone: [facility] Work Phone: Start: 03-06-2024 End: 03-06-2024 Departed Referred DO Gio Ball Work Phone: [facility] Start: 03-06-2024 End: 03-06-2024 ambulatory Meghan Brito Facility:[id number] Start: 03-06-2024 End: 03-06-2024 Off-Site Meghan Brito [facility] Start: 03-05-2024 Non-patient / Non-visit DO Heath snider Ball Work Phone: [facility] Work Phone: Start: 02-29-2024 End: 02-29-2024 ambulatory [facility] Work Phone: Start: 02-29-2024 End: 02-29-2024 Patient encounter procedure [facility] Work Phone: Start: 02-22-2024 Non-patient / Non-visit [facility] Work Phone: Start: 02-12-2024 End: 02-12-2024 ambulatory [facility] Start: 02-12-2024 End: 02-12-2024 Encounter for other preprocedural examination [facility] Start: 01-12-2024 ambulatory Meghan Brito Facility:[facility] Start: 01-03-2024 Encounter for other preprocedural examination [facility] Start: 01-03-2024 End: 01-03-2024 ambulatory [facility] Start: 12-25-2023 End: 12-25-2023 ambulatory Meghan Brito Facility[facility] Start: 12-25-2023 End: 12-25-2023 Patient encounter procedure Meghan Brito [facility] Start: 11-29-2023 End: 01-03-2024 Pre-admission assessment Meghan MReinier Zafare [facility] Start: 11-29-2023 End: 11-29-2023 ambulatory Meghan MReinier Lue Facility:[facility] Start: 11-29-2023 End: 11-29-2023 Patient encounter procedure Meghan Brito [facility] Start: 11-28-2023 End: 11-28-2023 ambulatory [facility] Work Phone: Start: 11-28-2023 End: 11-28-2023 Encounter for general adult medical examination without abnormal findings [facility] Start: 11-28-2023 End: 11-28-2023 Patient encounter procedure [facility] Work Phone: Start: 11-24-2023 Non-patient / Non-visit [facility] Work Phone: Start: 07-31-2023 End: 07-31-2023 ambulatory Meghan M. Lue Facility:[facility] Start: 07-31-2023 End: 07-31-2023 Patient encounter procedure Meghan Brito [facility] Start: 06-30-2023 End: 06-30-2023 ambulatory Meghan M. Lue Facility:[facility] Start: 06-30-2023 End: 06-30-2023 Lab Drop off Meghan Bernstein. Charismae [facility] Start: 06-30-2023 End: 06-30-2023 ambulatory Meghan M. Lue Facility:[facility] Start: 06-30-2023 End: 06-30-2023 Patient encounter procedure Meghan Brito [facility] Start: 06-22-2023 End: 06-22-2023 ambulatory Gio Cavanaugh Other [facility] Other Start: 06-22-2023 Telephone encounter Gio BRITTON [facility] Start: 06-21-2023 Telephone encounter Gio BRITTON [facility] Start: 06-21-2023 End: 06-21-2023 ambulatory Meghan M. Charismae [facility] Other Start: 06-21-2023 End: 06-21-2023 Patient encounter procedure Meghan Zafare [facility] [place] Start: 06-20-2023 End: 06-20-2023 ambulatory Gio Cavanaugh Other [employer] Other Start: 06-20-2023 Telephone encounter Gio Diaz [facility] Start: 06-18-2023 End: 06-18-2023 ambulatory Gio Cavanaugh Other [employer] Other Start: 06-18-2023 Telephone encounter Gio Diaz [facility] Start: 06-16-2023 End: 06-16-2023 ambulatory Meghan M. Lue Facility: [place] Start: 06-16-2023 End: 06-16-2023 Patient encounter procedure Meghan M. Lue [facility] [place] Start: 06-15-2023 End: 06-15-2023 ambulatory Meghan M. Lue Facility:[facility] [place] Start: 06-15-2023 End: 06-15-2023 Patient encounter procedure Meghan M. Lue [facility] [place] Start: 06-14-2023 End: 06-14-2023 ambulatory Meghan M. Lue Facility:[facility] Start: 06-14-2023 End: 06-14-2023 Patient encounter procedure [facility] Start: 06-06-2023 End: 06-07-2023 ambulatory DUY JAMES MD Facility:[id number] Start: 06-06-2023 End: 06-06-2023 Admission to same day surgery center Meghan M. Lue [facility] Start: 06-06-2023 End: 06-06-2023 ambulatory Meghan M. Lue Facility:[facility] Start: 06-05-2023 End: 06-05-2023 ambulatory Gio Cavanaugh Other [employer] Other Start: 06-05-2023 Telephone encounter Gio Diaz [facility] Start: 05-10-2023 End: 05-10-2023 ambulatory Meghan Brito Facility:[facility] Start: 05-10-2023 End: 05-10-2023 Patient encounter procedure Meghan Brito [facility] Start: 04-28-2023 ambulatory Meghan Brito Facility:[facility] Start: 04-27-2023 End: 04-27-2023 ambulatory Gio Cavanaugh Other [employer] Other Start: 04-27-2023 Telephone encounter Gio Cavanaugh REBA Emily [facility] Start: 04-11-2023 End: 04-11-2023 ambulatory THERESA FLEMING Facility:[facility] Start: 04-11-2023 End: 04-11-2023 Patient encounter procedure THERESA FLEMING [facility] Start: 04-04-2023 End: 04-04-2023 ambulatory Gio Cavanaugh Other [employer] Other Start: 04-04-2023 Telephone encounter Gio Cavanaugh [facility] Start: 04-03-2023 End: 04-03-2023 Patient encounter procedure DO Gio Cavanaugh Work Phone: [facility] Work Phone: Start: 04-03-2023 End: 04-03-2023 ambulatory DO Gio Cavanaugh Work Phone: [facility] Work Phone: Start: 12-20-2022 End: 12-20-2022 Patient encounter procedure THERESA FLEMING [facility] Start: 12-13-2022 End: 12-13-2022 ambulatory Gio Cavanaugh Other [employer] Other Start: 12-13-2022 Telephone encounter Gio Cavanaugh [facility] Start: 12-12-2022 End: 12-12-2022 ambulatory Gio Cavanaugh Other [employer] Other Start: 12-12-2022 Telephone encounter Gio Cavanaugh [facility] Start: 11-23-2022 End: 11-23-2022 ambulatory Gio Cavanaugh Other [employer] Other Start: 11-23-2022 Encounter for genera l adult medical examination without abnormal findings Gio Cavanaugh [facility] Start: 11-23-2022 Periodic preventive med est patient 65yrs& older Gio Cavanaugh [facility] Start: 11-07-2022 End: 11-08-[address] GIO CAVANAUGH Facility:[facility] Start: 08-31-2022 End: 08-31-2022 ambulatory Gio Cavanaugh Other [employer] Other Start: 08-31-2022 Office outpatient vi sit [address] [facility] Start: 08-26-2022 End: 08-28-2022 Evaluation and management of inpatient DR DARIUS GIANG . Facility:[facility] Start: 05-18-2022 End: 05-19-[address] GIO CAVANAUGH Facility:[facility] Start: 02-25-2022 End: 02-26-[address] GIO CAVANAUGH Facility:[facility] Start: 01-07-[address] GIO CAVANAUGH Facili ty:[facility] Start: 12-28-2021 End: 12-29-[address] GIO CAVANAUGH Facility:[facility] Start: 11-18-2021 Adult health examination Joseph phillips Mao Other [employer] Other Start: 10-26-2021 End: 10-26-2021 Patient encounter procedure Daniel Kern Jr. [facility] Start: 08-07-2021 End: 08-07-2021 ambulatory Gina Starks Other [employer] Other Start: 08-07-2021 Office outpatient vi sit 15 minutes Gina Starks [facility] Start: 05-24-2021 End: 05-24-2021 ambulatory Sybilsofía Lee Other [employer] Other Start: 05-24-2021 Office outpatient vi sit [...] of Treatment Date Care Activity Detail Author [facility] Immunizations Immunization Date Immunization Notes Care Provider Fa cility 05-25-2023 influenza virus vaccine, unspecified formulation [facility] 05-25-2023 influenza, high dose seasonal, preservative-free Gio Cavanaugh Other [facility] Other 05-25-2023 pneumococcal polysaccharide vaccine, 23 valent Gio Cavanaugh Other [facility] 02-24-2022 influenza virus vaccine, unspecified formulation THERESA FLEMING [facility] 02-24-2022 influenza, high dose seasonal, preservative-free Gio Cavanaugh Other [facility] Other 11-18-2021 pneumococcal conjuga te vaccine, 13 valent Gio Cavanaugh Other [facility] 09-01-2021 COVID-19 Vaccine Moderna - Documentation Purposes Only Gio Cavanaugh Other [facility] 06-26-2021 pneumococcal conjuga te vaccine, 13 valent Gio Cavanaugh Other [facility] 09-02-2020 SARS-CoV-2 (COVID-19 ) Ad26 vaccine, recombinant Daniel Kern Jr. [facility] 05-03-2019 influenza virus vaccine, split virus (incl. purified surface antigen) Gio Cavanaugh Other [facility] Other 05-03-2019 influenza virus vaccine, unspecified formulation [facility] 05-09-2018 influenza virus vaccine, split virus (incl. purified surface antigen) Gio Cavanaugh Other [facility] Other 05-09-2018 influenza virus vaccine, unspecified formulation [facility] Payers Date Payer Category Payer Unknown [id number] 2023 Medicare [id number] 2023 Medicare [id number] 1959 Self-pay 1959 Unknown [id number] 2.16. [id number] 1956 Unknown [id number] 2.16.84 0.1.546170.3.579.2.593 1956 Unknown [id number] 2.16.84 0.1.767333.3.579.2.593 1956 Unknown [id number] 2.16.84 0.1.881842.3.579.2.593 1956 Unknown [id number] 2.16.84 0.1.307536.3.579.2.593 1956 Unknown [id number] 2.16.84 0.1.739280.3.579.2.593 1956 Unknown [id number] 2.16.84 0.1.392858.3.579.2.593 1956 Unknown [id number] 2.16.8 40.1.618181.3.579.2.159 1956 Unknown [id number] 2.16.8 40.1.529713.3.579.2.727 1956 Unknown [id number] 2.16.8 40.1.131481.3.579.2.727 1956 Unknown [id number] 2.16.8 40.1.677871.3.579.2.727 1956 Unknown [id number] 2.16.8 40.1.527311.3.579.2.727 1956 Unknown [id number] 2.16.8 40.1.830524.3.579.2.727 1956 Unknown [id number] 2.16.8 40.1.323830.3.579.2.727 1956 Unknown [id number] 2.16.8 40.1.599348.3.579.2.727 1956 Unknown [id number] 2.16.8 40.1.955256.3.579.2.727 1956 Unknown [id number] 2.16.8 40.1.580725.3.579.2.727 1956 Unknown [id number] 2.16.8 40.1.144069.3.579.2.727 1956 Unknown [id number] 2.16.8 40.1.476249.3.579.2.72 1956 Unknown [id number] 2.16.8 40.1.535544.3.579.2.727 1956 Unknown [id number] 2.16.8 40.1.807356.3.579.2.727 1956 Unknown [id number] 2.16.8 40.1.267236.3.579.2.727 1956 Unknown [id number] 2.16.8 40.1.314883.3.579.2.727 1956 Unknown [id number] 2.16.8 40.1.461580.3.579.2.727 1956 Unknown [id number] 2.16.8 40.1.770827.3.579.2.727 1956 Unknown [id number] 2.16.8 40.1.641139.3.579.2.727 Medicare Private Health Insurance Unknown [id number] 2.16.8 40.1.928708.3.579.2.531 Unknown [id number] 2.16.8 40.1.615160.3.579.2.531 Social History Date Type Detail Facility Start: 10-26-2021 Tobacco smoking status Heavy t obacco smoker (finding) [employer] Other Sex Assigned At Male [employer] Other Start: 12-20-2022 End: 05-10-2023 Tobacco smoking status Ex-smoker (finding) [facility] Start: 06-16-2023 End: 03-29-2024 Tobacco smoking status Never [facility] Start: 12-16-2020 Tobacco smoking stat us [place] Smoker (finding) [facility] Start: 1955 Sex Assigned At Male F [facility] Functional Status Date Assessment Result Facility 03-29-2024 Functional Status N/A [facility] 12-25-2023 Functional Status No [facility] 11-29-2023 Functional Status N/A [facility] 07-31-2023 Functional Status N/A [facility] 06-16-2023 Functional Status N/A [facility] 05-16-2023 Functional Status N/A [facility] 05-10-2023 Functional Status N/A [facility] 04-11-2023 Functional Status N/A [facility] 12-20-2022 Functional Status N/A [facility] Clinical Notes 05-24-2021 to 09-04-2024 Note Date & Type Note Facility 09-04-2024 Note [place] [facility] Note Reason for cardiology [...] to COPD [facility] (more content not included)... [facility] 03-29-2024 Hospital Discharge instructions Patient Education 03/29/2024 [...] urethra. Follow these instructions at home: Take ofez-mse-orewmhq and prescription medicines only as told by [...] provider. Document Revised: 12/29/2021 Document Reviewed: 12/29/2021 [employer] Patient Education 2023 [employer]. Follow Up Care 03/07/2024 08:22:06 With:Daryl HAMILTON, LOGAN Villalpando, URO Address: [address] [place] [address]- [phone] When: Unknown Comments:6 mos [facility] [place] 03-29-2024 Note Patient Education Urology Benign Prostatic [...] Follow these instructions at home: ? Take bipn-mmg-ydklaus and prescription medicines only as told by [...] develop side effec (more content not included)... [facility] 02-12-2024 Note [facility] Note Reason for cardiology [...] asked the patien (more content not included)... [facility] 01-03-2024 Note [place] [facility] Note Reason for cardiology [...] mother had diabetes mellitus. His father had DC at age of 50. Many siblings with [...] me in 3 weeks Glenna Bhardwaj MD, [facility] 12-13-2023 Note [id number] [facility] 11-29-2023 Hospital Discharge instructions Patient Education 11/29/2023 [...] Follow these instructions at home: Medicines Take inpt-wbg-guyfpym and prescription medicines only as told by [...] to keep your urine pale yellow. Take kerq-ujk-kmqtynz or prescription medicines. Eat foods that are [...] provider. Document Revised: 03/08/2022 Document Reviewed: 03/08/2022 [employer] Patient Education 2022 [employer]. 11/29/2023 11:20:13 Transurethral Resection of the Prostate [...] including vitamins, herbs, eye drops, creams, and uikt-uir-ikkxvme medicines. Any problems you or family members [...] provider tells you to take them. Taking jdsu-gtp-keukccy medicines, vitamins, herbs, and supplements. Surgery safety [...] provider. Document Revised: 03/08/2022 Document Reviewed: 03/08/2022 [employer] Patient Education 2022 [employer]. Follow Up Care 08/02/2023 09:34:46 With:Meghan Brito MD, URL, URO Address: [address] [place] [phone] When: Unknown [facility] 07-31-2023 Evaluation + Plan note Extrac rian from: Title: - Clinic HOPD Note Author:Meghan Brito MD Date:07/31/23 Impression and Plan Assessment and Plan: Diagnosis: BPH with urinary obstruction ([id number]-RM N40.1, Discharge, Medical), Pelvic lymphadenopathy (JCC87-RL R59.0, Working, Medical), Chronic prostatitis (VOP95-QF N41.1, Discharge, Medical), Feeling of incomplete bladder emptying (ENQ60-TY R39.14, Discharge, Medical), Gross hematuria (ICD10- CM R31.0, Discharge, Medical). Assessment and Plan: Diagnosis: BPH with urinary obstruction (TRX07-KD N40.1, Discharge, Medical), Chronic prostatitis (WIX53-QD N41.1, Discharge, Medical), Feeling of incomplete bladder emptying (BBM59-BK R39.14, Discharge, Medical), Gross hematuria (SEZ45-OA R31.0, Discharge, Medical), Pelvic lymphadenopathy (SKL93-BP R59.0, Working, Medical). 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 Gross hematuria - after [place] [facility] 07/05/23 at [facility] - neg for upper tract [...] in 4 to 5 months with [facility]02-05-2024 Hospital Discharge instructions Patient Education 07/31/2023 09:05:54 [...] including vitamins, herbs, eye drops, creams, and tqby-kbh-xzzthgn medicines. Any problems you or family members [...] provider tells you to take them. ?Taking vxex-car-kmfvhpf medicines, vitamins, herbs, and supplements. Follow your [...] provider. Document Revised: 09/08/2021 Document Reviewed: 09/08/2021 [employer] Patient Education 2022 [employer]. 07/31/2023 09:05:54 Transurethral Resection of the Prostate [...] including vitamins, herbs, eye drops, creams, and mnje-aet-ryopyci medicines. Any problems you or family members [...] provider tells you to take them. Taking gqgo-lis-lcnamyn medicines, vitamins, herbs, and supplements. Surgery safety [...] provider. Document Revised: 03/08/2022 Document Reviewed: 03/08/2022 [employer] Patient Education 2022 [employer]. 07/31/2023 09:05:54 [facility] - Cystoscopy Discharge Instructions [...] Up Care 06/30/2023 10:04:12 With:Meghan Brito Address: [address] [place] [phone] Business (1) When: Unknown Comments:Office to schedule follow up in 3-4 months or call sooner for procedure (pt knows will be done by partner/referred out if during leave) [facility]02-05-2024 Note [id number] NoteC[facility] ? Voiding after the [...] including vitamins, herbs, eye drops, creams, and rvdj-gcp-qcxiwur medicines. ? Any problems you or family [...] tells you to take them. ? Taking cvyw-kwn-jwdnmsn medicines, vitamins, herbs, and supplements. ? Follow [...] at least 4 week (more content not included)...[facility]12-28-2023 Evaluation note* Encounter Date Diagnosis Assessment Notes Treatment Notes Treatment Clinical Notes May, Simple chronic bronchitis (ICD-10 - J41.0) [employer] Other 12-27-2023 Evaluation note* Encounter Date Diagnosis Assessment Notes Treatment Notes Treatment Clinical Notes May, Simple chronic bronchitis (ICD-10 - J41.0) [employer] Other 12-26-2023 Evaluation note* Encounter Date Diagnosis Assessment Notes Treatment Notes Treatment Clinical Notes May, Simple chronic bronchitis (ICD-10 - J41.0) [employer] Other 12-22-2023 Hospital Discharge instructions Patient Education [...] treatment? Where to find more information [employer]: www.cancer.org [employer]: www.auanet.org Contact a health care [...] provider. Document Revised: 12/06/2021 Document Reviewed: 12/06/2021 [employer] Patient Education 2022 [employer] Follow Up Care 06/16/2023 08:30:52 With:Meghan Brito MD, LOGAN, URO Address: [address] [place] [address] [phone] When: Unknown Comments:6 mos w/ CT and PSA [facility] 12-20-2023 Hospital Discharge instructions Follow Up Care 06/14/2023 08:28:10 With:Meghan Brito MD, LOGAN, URO Address: When: Unknown [facility] 12-12-2023 Hospital Discharge instructions Patient Education 06/06/2023 16:52:41 EU - Transrectal Ultrasound of the Prostate with US guided biopsy Discharge Instructions (CUSTOM) Transperineal?Biopsy of the Prostate Discharge Instructions After the procedure, it is common to have: Pain and discomfort near your rectum, especially while sitting. Tatamy-colored urine due to small amounts of blood [...] Brito Address:Unknown When: Unknown Comments:Keep scheduled appointment [facility]12-12-2023 Evaluation + Plan noteExtracted from: Title:[facility] -transperineal prostate biopsy Author:Meghan Melgoza MD Date:06/06/23 Impression and Plan Diagnosis Elevated PSA (GPN74-VD R97.20, Discharge, Medical). Diagnosis Elevated PSA (TTF22-KO R97.20, Discharge, Medical). Future Appointments Appointment Date:06/14/2023 10:30:00 AM Scheduled Provider:Meghan Brito MD Location:[facility] Appointment Type:URO Office Visit [facility]11-20-2023 Note [id number] Follow Up Care 05/10/2023 11:27:04 With:Meghan Brito MD, URL, URO Address: [address] [place] [phone] When: Unknown [facility] 11-15-2023 Hospital Discharge instructions Patient Education [...] treatment? Where to find more information The [place] [employer]: www.cancer.org [place] [employer] Association: www.auanet.org Contact a health care [...] provider. Document Revised: 12/06/2021 Document Reviewed: 12/06/2021 [employer] Patient Education 2022 [employer]. 05/10/2023 11:11:23 Benign Prostatic Hyperplasia Benign Prostatic [...] urethra. Follow these instructions at home: Take fdtr-xro-klpsdwb and prescription medicines only as told by [...] provider. Document Revised: 12/29/2021 Document Reviewed: 12/29/2021 [employer] Patient Education 2022 [employer]. Follow Up Care 04/12/2023 09:16:25 With:Daryl HAMILTON, LOGAN Villalpando, URO Address: When: Unknown Comments:Sched Transperineal Bx of Prostate [facility] 11-02-2023 Evaluation note* Encounter Date Diagnosis Assessment Notes Treatment Notes Treatment Clinical Notes Apr, Primary hypertension (ICD-10 - I10) [employer] Other 10-17-2023 Hospital Discharge instructions Patient Education [...] treatment? Where to find more information The [place] [employer]: www.cancer.org [place] U[employer] Association: www.auanet.org Contact a health care [...] provider. Document Revised: 12/06/2021 Document Reviewed: 12/06/2021 [employer] Patient Education 2022 [employer]. Follow Up Care 03/16/2023 16:12:09 With:THERESA FLEMING PA-C, URL Address: [address] [place] [phone] When: Unknown Comments:f/u with MD in 1 month w/ PSA and Select MDX [facility] 10-10-2023 Evaluation note* Encounter Date Diagnosis Assessment Notes Treatment Notes Treatment Clinical Notes Mar, Primary hypertension (ICD-10 - I10) [employer] Other 06-27-2023 Hospital Discharge instructions Patient Education [...] treatment? Where to find more information The [place] [employer] Society: www.cancer.org [place] U[employer] Association: www.auanet.org Contact a health care [...] provider. Document Revised: 12/06/2021 Document Reviewed: 12/06/2021 [employer] Patient Education 2022 [employer]. Follow Up Care 10/03/2022 14:27:57 With:LONNIE ELLIOTT, THERESA Merida, URL Address: [address] [address] When: Unknown Comments:Sched Select MDX and MRI of Prostate. [facility] 06-20-2023 Evaluation note* Encounter Date Diagnosis Assessment Notes Treatment Notes Treatment Clinical Notes Nov, Cigarette nicotine dependence in remission (ICD-10 - F17.211) Started at age 19, quit age 66, 1ppd. LDCT w/o nodules - 11/2022 [employer] Other 06-19-2023 Evaluation note* Encounter Date Diagnosis Assessment Notes Treatment Notes Treatment Clinical Notes Nov, Simple chronic bronchitis (ICD-10 - J41.0) Nov, Cigarette nicotine dependence in remission (ICD-10 - F17.211) Started at age 19, quit age 66, 1ppd. LDCT w/o nodules - 11/2022 [employer] Other 05-31-2023 Evaluation note* Encounter Date Diagnosis [...] Z12.5) Yearly MARIZA and PSA, f/u Urology [employer] Other 03-08-2023 Evaluation note* Encounter Date Diagnosis [...] in remission (ICD-10 - F17.211) Continue abstinence [employer] Other 05-03-2022 Hospital Discharge instructions Patient Education [...] urethra. Follow these instructions at home: Take ldnv-qzb-xvzmrmy and prescription medicines only as told by [...] 06/12/2006 Document Revised: 05/07/2019 Document Reviewed: 07/17/2017 [employer] Patient Education [employer] Follow Up Care 10/22/2020 09:07:58 With:Erlin Alonso MD, Daniel Tse URO Address: [facility] [address], [place] [address]- When:10/26/2022 Comments:with PSA [facility] 02-12-2022 Evaluation note* Encounter Date Diagnosis Assessment [...] Patient care instructions given in writting by [employer] [facility] document [employer] Other 11-29-2021 Evaluation note* Encounter Date Diagnosis Assessment Notes Treatment Notes Treatment Clinical Notes Apr, Contact with and (suspected) exposure to other viral communicable diseases (ICD-10 - Z20.828) Apr, COVID-19 (ICD-10 - U07.1) Today you tested positive for the COVID virus. This mean you need to follow all CDC [email or web address] It is important to rest, increase [...] Patient care instructions given in writting by [email or web address] [facility] [employer] document. [employer] Other Evaluation + Plan note Future Appointments Appointment Date:11/01/2022 08:15:00 AM Scheduled Provider:Erlin Alonso MD, Daniel Tse Location:[facility] Appointment Type:URO Office Visit Diagnostic Tests Pending * PSA Total 10/26/21 [facility] evaluation + Plan note Future Appointments Appointment Date:04/28/2023 08:15:00 AM Scheduled Provider:Meghan Brito MD Location:[facility] Appointment Type:URO Office Visit Diagnostic Tests Pending * PSA Total 04/11/23 [facility] evaluation + Plan note Future Appointments Appointment Date:06/06/2023 02:30:00 PM Scheduled Provider: Location:[facility] Appointment Type:Surgery FT Appointment Date:06/14/2023 10:30:00 AM Scheduled Provider:Meghan Brito MD Location:[facility] Appointment Type:URO Office Visit [facility] evaluation + Plan note Future Appointments Appointment Date:06/15/2023 03:30:00 PM Scheduled Provider:Meghan Brito MD Location:[facility] Appointment Type:URO Office Visit [facility] evaluation + Plan note Future Appointments Appointment Date:06/21/2023 08:45:00 AM Scheduled Provider:Meghan Brito MD Location:[facility] Appointment Type:URO Office Visit [facility] Evaluation + Plan note Future Appointments Appointment Date:06/30/2023 09:15:00 AM Scheduled Provider: Location:[facility] Appointment Type:URO Nurse Visit Diagnostic Tests Pending * PSA Free & Total 06/16/23 [facility] Evaluation + Plan note Future Appointments Appointment Date:06/30/2023 09:15:00 AM Scheduled Provider: Location:[facility] Appointment Type:URO Nurse Visit [facility] evaluation + Plan note Future Appointments Appointment Date:07/31/2023 08:30:00 AM Scheduled Provider: Location:[facility] Appointment Type:Urology FT [facility] Evaluation + Plan note Future Appointments Appointment Date:07/31/2023 08:30:00 AM Scheduled Provider: Location:[facility] Appointment Type:Urology FT Diagnostic Tests Pending * Urine Cytology ([facility]) [facility] Appointment Date:12/25/2023 07:30:00 AM Scheduled Provider: Location:[facility] Appointment Type:Surgical PAT FT Appointment Date:01/02/2024 08:00:00 AM Scheduled Provider: Location:[facility] Appointment Type:Surgery FT [facility] evaluation + Plan note Future Appointments Appointment Date:01/02/2024 08:00:00 AM Scheduled Provider: Location:[facility] Appointment Type:Surgery FT Appointment Date:01/12/2024 08:15:00 AM Scheduled Provider:Meghan Brito MD Location:[facility] Appointment Type:[facility]O [facility] Future Appointments Appointment Date:10/03/2024 08:00:00 AM Scheduled Provider:Meghan Brito MD Location:[facility] Appointment Type:URO Office Visit [facility] evaluation noteNo assessment information available [facility] Work Phone: evaluation noteNo InformationNort [employer] Other evalujynau note* Diagnosis Onset Date Resolution Status Anemia acute Benign prostatic hyperplasia with lower urinary tract symptoms acute Chronic bronchitis acute Chronic kidney disease acute Elevated PSA acute Hypercholesterolemia acute Hypertension acute Nicotine addiction acute Screening PSA (prostate specific antigen) acute Welcome to Medicare preventive visit noneactive [facility] Work Phone: Evaluation note* Diagnosis Onset Date Resolution Status Acute gout acute Benign prostatic hyperplasia with lower urinary tract symptoms acute Hypertension acute [facility] Work Phone: Hisdiqn general Narrative - Reported* Type Description Date Medical History high blood pressure Medical History high cholesterol [employer] Other Hisylar general Narrative - Reported* Type Description Date [...] HERNIA 1989 Hospitalization History SEE SURGICAL HX [employer] Other Hiszkvd general Narrative - Reported* Type Description Date [...] HERNIA 1989 Hospitalization History SEE SURGICAL HX [employer] Other Hospital course Narrative No data available for this section [facility] [place] [facility] Discharge instructions No data available for this section [facility] [employer] progress note No data available for this section [facility] Summary Purpose Family History No Family [...] content) DATE CREATED AUTHOR 11/08/2022 [facility] DATE CREATED AUTHOR AUTHOR'S ORGANIZ ATION 06/17/2023 [facility] DATE CREATED AUTHOR AUTHOR'S ORGANIZ ATION 12/25/[address] [place] [facility] DATE CREATED AUTHOR AUTHOR'S ORGANIZ ATION 12/26/[address] [place] [facility] DATE CREATED AUTHOR AUTHOR'S ORGANIZ ATION 03/17/2024 [facility] DATE CREATED AUTHOR AUTHOR'S ORGANIZ ATION 09/07/2024 [facility] DATE CREATED AUTHOR AUTHOR'S ORGANIZ ATION 09/22/2024 [place] [facility] Patient Care team informatio n (unrecognized [...] THE PRIMARY CLINICAL RECORDS. [facility] [employer] [facility]. provides no warranty or guarantee of the accuracy or completeness of information in this document.
[2024-10-04 09:05] LABS: Alanine Aminotransferase 23 U/L (16-63); Anion Gap 10.2; Aspartate Amino Transferase 16 U/L (15-37); BUN Creatinine Ratio 29.9; Calcium 9.3 mg/dL (8.5-10.1); Carbon Dioxide 29.2 mmol/L (21.0-32.0); Chloride 103 mmol/L (98-107); Chol HDL Ratio 6.1; Cholesterol 214 mg/dL (<=200); Estimated GFR (African America 51 (>=60 mL/min/1.73m^2); Estimated GFR (Non-African Ame 42 (>=60 mL/min/1.73m^2); Glucose 125 mg/dL (74-106); HDL Cholesterol 35 mg/dL (40-60); Potassium 4.4 mmol/L (3.5-5.1); Sodium 138 mmol/L (136-145); Triglycerides 161 mg/dL (<=150); VLDL CHOLESTEROL 32.2 mg/dL
== END 2024-10-04 08:30 | disposition home or self-care (01) ==
LOC: LAB 08:33
PROVIDERS: PCP Internal Medicine; Visit Provider Internal Medicine Cardiovascular Disease
DX: I11.9 Hypertensive heart disease without heart failure (principal); E78.00 Pure hypercholesterolemia, unspecified
CPT/HCPCS: 36415; 80048; 80061; 84450; 84460

== ENCOUNTER 2024-10-17 08:26 | Outpatient (OUT) | payer MEDICARE, SELFPAY ==
[2024-10-17 09:07] LABS: Anion Gap 10.2; BUN Creatinine Ratio 24.4; Calcium 9.2 mg/dL (8.5-10.1); Carbon Dioxide 29.2 mmol/L (21.0-32.0); Chloride 106 mmol/L (98-107); Estimated GFR (African America >60 (>=60 mL/min/1.73m^2); Estimated GFR (Non-African Ame 53 (>=60 mL/min/1.73m^2); Glucose 127 mg/dL (74-106); Potassium 4.4 mmol/L (3.5-5.1); Sodium 141 mmol/L (136-145)
== END 2024-10-17 08:27 | disposition home or self-care (01) ==
LOC: LAB 08:27
PROVIDERS: PCP Internal Medicine; Visit Provider Internal Medicine Cardiovascular Disease
DX: R97.20 Elevated prostate specific antigen [PSA] (principal); I11.9 Hypertensive heart disease without heart failure
CPT/HCPCS: 36415; 80048; 84153

== ENCOUNTER 2024-10-17 08:31 | Outpatient (OUT) | payer MEDICARE, SELFPAY ==
[2024-10-17 09:31] LABS: Prostate Specific Antigen Dx 2.48 ng/mL (<=4.00)
== END 2024-10-17 08:32 | disposition home or self-care (01) ==
LOC: LAB 08:32
PROVIDERS: PCP Internal Medicine; Visit Provider Urology
DX: R97.20 Elevated prostate specific antigen [PSA] (principal)
CPT/HCPCS: 36415; 84153

== ENCOUNTER 2025-04-09 08:57 | Outpatient (OUT) | payer MEDICARE, SELFPAY ==
--- OUTSIDE RECORDS SUMMARY | 2025-04-09 09:08 | XMS_ITS | CCD ---
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 Name Role Phone GIO JASSO Primary Care Physician Sybil Lee Unavailable Gina Starks Unavailable Gio Jasso Unavailable MAO, DR POWERS Admitting Unavailable BALL, DR POWERS Attending Unavailable BALL, DR POWERS Consulting Unavailable BALL, DR POWERS Primary Care Unavailable MAO, DR POWERS Admitting Unavailable BALL, DR POWERS Primary Care Unavailable MAO, DR POWERS Attending Unavailable MAO, DR POWERS Consulting Unavailable BALL, DR POWERS [...] Unavailable PAY ., DR OROZCO Consulting Unavailable AGBY ., PHUC Consulting Unavailable RAYNA, CODY Consulting Unavailable DARAMOLA, MACEI Consulting Unavailable NEWATIA, GRACIE Consulting Unavailable MAO, DR POWERS Admitting Unavailable BALL, DR POWERS Attending Unavailable BALL, DR POWERS Consulting Unavailable BALL, DR POWERS Primary Care Unavailable Le, Lidya Consulting Unavailable Mao, DO Powers Primary Care Provider EARL Arriola Attending Provider DUY GALLEGOS MD Attending Unavailable DO Gio Jasso Primary Care Provider MD Meghan Brito Attending Provider Gio Jasso Primary Care Unavailable Meghan Brito Admitting Unavailable Meghan Brito Attending Unavailable Theresa Arriola Attending Unavailable Theresa Arriola Admitting Unavailable MaoGio Primary Care Unavailable Lue, Meghan M. Admitting Unavailable Lue, Meghan M. Attending Unavailable Lue, Meghan M. Referring Unavailable Yousko, Ghanshyam J Admitting Unavailable Yousko, Ghanshyam J Attending Unavailable Lue, Meghan M. Attending Unavailable Lue, Meghan M. Attending Unavailable Lue, Meghan M. Admitting Unavailable Lue, Meghan M. Attending Unavailable Lue, Meghan M. Referring Unavailable Lue, Meghan M. Attending Unavailable Lue, Meghan M. Attending Unavailable Lue, Meghan M. Attending Unavailable Yousko, Ghanshyam J Admitting Unavailable Yousko, Ghanshyam J Attending Unavailable Lue, Meghan M. Attending Unavailable Lue, Meghan M. Attending Unavailable Lue, Meghan M. Referring Unavailable Lue, Meghan M. Attending Unavailable GLENNA LAKHANI Attending Unavailable GLENNA LAKHANI Attending Unavailable Allergies Allergy Classification Reported Allergen(s) Allergy Type Date of Onset Reaction(s) Facility (20 sources) Cephalexin; Translations: [cephalexin] Drug Allergy 04-06-20 20 Unknown (qualifier value), Dyspnea (finding) [facility] Other (20 sources) Penicillins; Translations: [penicillins] Drug allergy 08-07-19 16 Unknown (qualifier value), Dyspnea (finding) [facility] (2 sources) Penicillin V Drug Allergy rash/cough [facility] Other (13 sources) Cephalexin; Translations: [Keflex] Drug Allergy 08-07-19 16 rash/cough [facility] (11 sources) Penicillin Drug Allergy rash/cough [facility] Other (7 sources) Keflex *CEPHALOSPORINS* Propensity to adverse reactions 02-29-20 18 Unknown [facility] Other (2 sources) Penicillin G Benzathine & Proc Drug allergy 02-29-20 18 Unknown [facility] Other (2 sources) patient allergy list reviewed by nurse or physicia Propensity to adverse reactions 03-02-20 Comment:[facility] Other (5 sources) Cephalosporins (Antibiotic); Translations: [Cephalosporins] Allergy to substance 11-28-19 Unknown Reaction [facility] Comment on above: Onset Date: 02/29/20 (1 source) Cephalexin Drug Allergy 02-29-20 [facility] Medications Current Medications Medication Drug Class(es) Dates Sig (Normalized) Sig (Original) albuterol 0.83 mg/ml inhalation solution (20 sources) beta2-Adrenergic Agonist Start: 12-25-2023 take 2.5 mg by inhalation every six hours as needed albuterol 0.083% Inh Haydee 3 mL 2.5 mg, 3 mL, Inhalation, q6hr Shortness of breath or wheezing, Q6H and PRN Start Date: 12/25/23 Status: Ordered Repeat number: 1 Start: 05-24-2021 take 2 puff(s) by in [...] if needed. for 30 days May, Active amLODIPine 5 mg oral tablet (11 sources) Dihydropyridine Calcium Channel Mary Start: 05-29-2024 take 2 tablets by mouth twice daily Amlodipine 5 mg tablet Active 10 MG PO Twice daily May 29, 2024 9:38am Start: 05-22-2024 End: 05-29-2024 take 1 tablet by mouth once daily Amlodipine 5 mg tablet Discontinued 0 .ROUTE .COMPLEX May 22, 2024 6:30pm May 29, 2024 9:38am TAKE 1 TABLET BY MOUTH DAILY Start: 12-22-2023 End: 05-22-2024 take 1 tablet by mouth once daily Amlodipine 5 mg tablet Discontinued 5 MG PO Daily December 22, 2023 12:00am May 22, 2024 6:30pm azithromycin 250 mg oral tablet (1 source) Macrolide Antimicrobial Start: 08-31-2022 Azithromycin 250 MG as directed Orally daily for 5 days Aug, Active carvedilol 6.25 mg oral tablet (20 sources) alpha-Adrenergic Mary, beta-Adrenergic Mary Start: 09-15-2024 take 1 tablet by mouth twice daily Carvedilol 6.25 mg tablet Active 0 .ROUTE .COMPLEX September 15, 2024 5:10pm TAKE 1 TABLET BY MOUTH TWICE DAILY Start: 03-22-2019 End: 09-15-2024 take 1 tablet by mouth twice daily Carvedilol 6.25 mg Tablet Discontinued 6.25 MG PO Twice daily April 06, 2020 12:00am September 26, 2023 12:50pm Carvedilol Activ e ciprofloxacin 500 mg oral [...] day(s), # 2 tab(s), Refills(s) 0, Pharmacy: [facility] #[id number], 180, cm, 05/10/23 10:56:00 EST, Height/Length Dosing, 102, kg, 05/10/23 10:56:00 EST, Weight Dosing Start Date: 05/10/23 Stop Date: 05/11/23 Status: Ordered diazePAM 10 mg oral tablet (4 sources) Benzodiazepine Start: 11-15-2023 Valium 10 mg T ab 10 mg = 1 tab(s), Oral, Once, take 30 minutes prior to procedure, # 1 tab(s), Refills(s) 0, Pharmacy: [facility] #[id number], 180, cm, 05/10/23 10:56:00 EST, Height/Length Dosing, 102, kg, 05/10/23 10:56:00 EST, Weight Dosing Start Date: 05/10/23 Status: Ordered folic acid 1 mg oral tablet (6 sources) Start: 10-10-2024 folic acid 1 m g Tab 1 mg = 1 tab(s) Start Date: 10/10/24 Status: Ordered Repeat number: 1 Start: 08-20-2024 take 1 tablet by chris th once daily Folic Acid 1 mg tablet Active 0 .ROUTE .COMPLEX August 20, 2024 2:08pm TAKE 1 TABLET BY MOUTH DAILY Start: 03-05-2024 End: 08-20-2024 take 1 tablet by mouth once daily Folic Acid 1 mg tablet Discontinued 1 MG PO Daily March 08, 2024 4:29pm August 20, 2024 2:08pm hydroCHLOROthiazide 25 mg oral tablet (3 sources) Thiazide Diuretic Start: 09-05-2024 hydrochlorothiazide 25 mg Tab 25 mg = 1 tab(s) Start Date: 10/10/24 Status: Ordered Repeat number: 1 lisinopril 40 mg oral tablet (20 sources) Angiotensin Converting Enzyme Inhibitor Start: 03-13-2024 take 1 tablet by mouth once daily Lisinopril 40 mg tablet Active 0 .ROUTE .COMPLEX March 13, 2024 8:37am TAKE 1 TABLET BY MOUTH DAILY Start: 03-22-2019 End: 03-13-2024 take 1 tablet by mouth once daily Lisinopril 40 mg Tablet Discontinued 40 MG PO Daily December 16, 2020 12:00am March 13, 2024 8:37am Lisinopril Activ e 10 actuat olodaterol 0.0025 mg/actuat / tiotropium 0.0025 mg/actuat inhalation spray (1 source) Anticholinergic, beta2-Adrenergic Agonist Start: 06-21-2023 Stiolto Respimat 2.5-2.5 MCG/ACT 2 puffs Inhalation Once a day for 30 days d/c Anoro Rx May, Active rosuvastatin calcium 20 mg oral tablet (20 sources) HMG-CoA Reductase Inhibitor Start: 11-29-2024 take 1 tablet by mouth once daily Rosuvastatin 20 mg tablet Active 20 MG PO Daily 90 90 November 29, 2024 12:00am Start: 12-16-2020 End: 11-28-2023 take 1 tablet by mouth once daily Rosuvastatin 20 mg Tablet Discontinued 20 MG PO Daily December 16, 2020 12:00am November 28, 2023 9:01am Start: 03-26-2019 rosuvastatin O ral, Daily, Refills(s) 0 Start Date: 03/26/19 Status: Ordered Rosuvastatin Eliceo cium Not-Taking/PRN Rosuvastatin Eliceo cium Not-Taking Rosuvastatin Eliceo cium Active 30 actuat umeclidinium 0.0625 mg/actuat / vilanterol 0.025 mg/actuat dry powder inhaler (1 source) Anticholinergic, beta2-Adrenergic Agonist Start: 06-20-2023 take 1 puff(s) by inhalation once daily Anoro Ellipta 62.5-25 MCG/ACT 1 puff Inhalation Once a day for 30 days May, Active Completed/Discontinued Medications Medication Drug Class(es) Dates Sig (Normalized) Sig (Original) 24 hr alfuzosin hydrochloride 10 mg extended release oral tablet (20 sources) alpha-Adrenergic Mary Start: 07-28-2023 End: 05-29-2024 take 1 tablet by mouth once daily at mealtime Alfuzosin 10 mg tablet extended release 24 hr Discontinued 10 MG PO Daily 30 November 28, 2023 12:00am May 29, 2024 9:37am administer after the same meal each day Start: 01-30-2023 take 1 tablet by chris th once daily alfuzosin 10 mg ER Tab 10 mg = 1 tab(s), Oral, Daily, # 30 tab(s), Refills(s) 5, Pharmacy: [facility] #[id number], 180, cm, 12/20/22 10:13:00 EDT, Height/Length Dosing, 102.5, kg, 12/20/22 10:13:00 EDT, Weight Dosing Start Date: 01/30/23 Status: Ordered Start: 07-14-2022 take 1 tablet by chris once daily alfuzosin 10 mg ER Tab 10 mg = 1 tab(s), Oral, Daily, # 30 tab(s), Refills(s) 5, Pharmacy: [facility] #[id number], 180, cm, 10/26/21 9:12:00 EDT, Height/Length Dosing, 95.2, kg, 10/26/21 9:12:00 EDT, Weight Dosing Start Date: 07/14/22 Status: Ordered Start: 07-08-2021 take 1 tablet by [facility] once daily alfuzosin 10 mg ER Tab 10 mg = 1 tab(s), Oral, Daily, # 30 tab(s), Refills(s) 11, Pharmacy: [id number] [facility], 180, cm, 07/08/21 15:57:00 EST, Height/Length Dosing, 95.2, kg, 07/08/21 15:57:00 EST, Weight Dosing Start Date: 07/08/21 Status: Ordered plenvu 140 gm solution reconstituted (13 sources) Osmotic Laxative, Vitamin C Start: 11-17-2020 Plenvu 140 GM dose 1 pouch at 4pm, dose 2 pouch A & B at 11pm Orally BID for 1 days BIN:[id number] PCN: CNRX GROUP:[id number] ID:[id number] October, Not-Taking/PRN Start: 11-17-2020 Plenvu 140 GM dose 1 pouch at 4pm, dose 2 pouch A & B at 11pm Orally BID for 1 days BIN:[id number] PCN: CNRX GROUP:[id number] ID:[id number] October, Not-Taking Start: 11-17-2020 Plenvu 140 GM dose 1 pouch at 4pm, dose 2 pouch A & B at 11pm Orally BID for 1 days BIN:[id number]: CNRXGROUP:[id number] October, Not-Taking Start: 11-17-2020 Plenvu 140 GM dose 1 pouch at 4pm, dose 2 pouch A & B at 11pm Orally BID for 1 days BIN:[id number]: CNRXGROUP:[id number] October, Active methylPREDNISolone 4 mg oral tablet [...] as needed for 5 days Jul, Not-Taking/PRN predniSONE 20 mg oral tablet (3 sources) Start: 02-29-2024 End: 05-29-2024 Prednisone 20 mg tablet Discontinued 20 MG PO As Directed 09 04February 29, 2024 12:00am May 29, 2024 9:38am 1 tab bid w/ food x 5 days then qd w/ food x 5 days tamsulosin hydrochloride 0.4 mg oral capsule (5 sources) alpha-Adrenergic Mary Start: 12-16-2020 End: 11-28-2023 take 1 capsule by mouth once daily Tamsulosin 0.4 mg capsule Discontinued 0.4 MG PO Daily December 16, 2020 12:00am November 28, 2023 9:01am Problems Active Problems Problem Classification Problem Date Documented Date Episodic/Chronic Asthma (1 source) Unspecified asthma with status asthmaticus; Translations: [UNS ASTHMA W/STATUS ASTHMATICUS] Onset: 08-30-2022 Chronic Chronic kidney disease (6 sources) Chronic kidney disease; Translations: [Chronic kidney disease, unspecified] 11-26-2023 Chronic Chronic obstructive pulmonary disease and bronchiectasis (20 sources) Acute exacerbation of chronic obstructive airways disease; Translations: [Chronic obstructive pulmonary disease with (acute) exacerbation] Onset: 08-30-2022 Chronic Comment on above: PFT: FEV1/FVC 66, TL C 90%, DLCO 65%, air trapping w/o bronchodilator response - 05/2023 Deficiency and other anemia (17 sources) Anemia; Translations: [Anemia, unspecified] 11-26-2023 Episodic Comment on above: Last scope 2020.Norm al MCV, WBC and Plaltelts.Normal Fe, B12.Low FA Deficiency and other anemia (6 sources) Anemia, unspecified; Translations: [Anemia, unspecified] Onset: 05-18-2022 Episodic Disorders of lipid metabolism (20 sources) Hyperlipidemia; Translations: [Pure hypercholesterolemia] Onset: 02-28-2018 01-29-2019 Chronic Esophageal disorders (20 sources) Gastroesophageal reflux disease; Translations: [Gastro-esophageal reflux disease with esophagitis] Onset: 02-28-2018 01-29-2019 Chronic Essential hypertension (20 sources) Hypertensive disorder; Translations: [Essential hypertension] Onset: 08-30-2022 01-29-2019 Chronic Comment on above: Echo: LVEF > 55%, BA E, normal RV size/function, RVSP 54, mod AI - 08/2024Stress test: LVEF 48, fixed defect inferiorly, TID normal - 01/2024 Fluid and electrolyte disorders (13 sources) Hyponatremia; Translations: [Hypo-osmolality and hyponatremia] Episodic Genitourinary symptoms and ill-defined conditions (20 sources) Delay when starting to pass urine; Translations: [Nocturia] Onset: 02-28-2018 01-29-2019 Episodic Gout and other crystal arthropathies (5 sources) Acute gout; Translations: [Gout, unspecified] 02-29-2024 Chronic Heart valve disorders (8 sources) Aortic valve disorder; Translations: [Other nonrheumatic aortic valve disorders] Onset: 09-04-2024 05-29-2024 Chronic Hyperplasia of prostate (20 sources) Benign [...] Episodic Inflammatory conditions of male genital organs (20 sources) Chronic prostatitis; Translations: [Chronic prostatitis] Onset: 07-31-2023 04-23-2020 Chronic Lymphadenitis (9 sources) Lymphadenopathy; Translations: [Enlarged lymph nodes, unspecified] Onset: 11-29-2023 Episodic Osteoarthritis (19 sources) Arthritis 01-29-2019 Chronic Other aftercare (1 source) Other usp (current) drug therapy; Translations: [OTH PRISON CURRENT DRUG THERAPY] Onset: 08-30-2022 Episodic Other aftercare (2 sources) Long-term current use of drug therapy; Translations: [Other usp (current) drug therapy] Episodic Other and unspecified [...] serum enzymes Episodic Other male genital disorders (15 sources) Male erectile dysfunction, unspecified; Translations: [Erectile [...] 01-02-2022 Resolved: 11-01-2021 Episodic Pulmonary heart disease (4 sources) Pulmonary hypertension; Translations: [Pulmonary hypertension, unspecified] Onset: 01-03-2024 05-29-2024 Chronic Respiratory failure; insufficiency; arrest (adult) (1 source) Acute respiratory failure with hypercapnia; Translations: [ACUTE RESP FAIL W/HYPERCAPNIA] Onset: 08-30-2022 Episodic Screening and history of mental health and substance abuse codes (16 sources) Personal history of nicotine dependence; Translations: [H/O: Disorder] Onset: 08-30-2022 Episodic Substance-related disorders (20 sources) Smoker; 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] Onset: 03-02-2018 Resolved: 11-18-2021 04-23-2020 Chronic Comment on above: - age started 19, 1p pd, age quit 66,LDCT - no suspicious nodules: 05/2023, 05/2024 Unclassified (19 sources) Finding of sensation of bladder 03-26-2020 [...] antigen [PSA]] Onset: 10-26-2021 Resolved: 11-01-2021 Episodic Comment on above: PSA: 09/2019 - 6.6, - 5.32, 09/2020 - 5.87, 09/2021 - 5.5, 10/2023 - 6.70, 2.48 - 09/2024s/p TRUS/bx 2015, 2019, 2023s/p MRI w/o nodule Residual codes; unclassified (2 sources) Tobacco user; Translations: [Tobacco use] Resolved: 11-18-2021 Episodic Unclassified (2 sources) Exposure to acute respiratory syndrome coronavirus 2; Translations: [Contact with and (suspected) exposure to COVID-19] Resolved: 11-01-2021 Viral infection (1 source) COVID-19 Onset: 05-24-2021 Resolved: 05-24-2021 Results Test Name Value Interpretation Reference Range Facility Office Visiton 03-07-2025 Follow-up visit [id number] Michael Killian 1955 M Date Provider Department Center 03/07/2025 [id number] LAKHANI SUELLEN Barnes Family History Problem Relation Age of Onset Diabetes Mother Heart attack Father Family Status - Relation Status Age at Mother Father Level of Service:21987 IN OFFICE/OUTPATIENT ESTABLISHED MOD MDM 30 MIN Reason for Visit and Comments: Follow-up [489659] - 6 month routine appointment Hypertension [293735] Varicosities of leg [Other] Percordial pain [Other] Pulmonary hyperteension [Other] Valve Disorder [3372] - Non rheumatic aortic valve insufficiency Benign hypertensive heart disease with out congestive heart [Other] Normal [facility] 36on 11-04-2024 36 Regarding lab result s from 10/17/2024: MD Grace Lott MA Advise patient that his creatinine is back to baseline. Continue hydrochlorothiazide 12.5 mg daily. Please check if patient's blood pressure is still good on this dose of hydrochlorothiazide. Spoke with patient and made him aware. Says his BP has been good and in normal range. Normal [facility] Reminderson 10-31-2024 Reminders Reminders From: Gina Sawyer MA (EU - Recalls Lue) To: EU - Recalls Lue; Sent: 10/31/2024 15:56:26 EDT Show up: 09/24/2025 15:56:00 EDT Subject: PSA Reminder/Recall Addendum by Lubna Woo PA-C on October 29, 2024 11:50:15 EDT From: Lubna Woo PA-C (EU - ELGIN/Lue Messages & Refill) To: EU - Recalls Lufuad; Sent: 10/29/2024 11:50:15 EDT Subject: FW: PSA at [facility] & CT at [facility] Caller Name: MICHAEL KILLIAN; Caller Number: Zoe , M Submitted: Order:PSA Free & Total Details: Blood, Routine collect, 09/24/2025 11:45 EDT, Order for Outside Lab, Nurse collect, Elevated PSA, Required & Missing, Print Label By Order Location Signed by Lubna Woo PA-C 10/29/2024 11:48:00 EDT Patient informed of PSA and CT results. He is already scheduled for 10/15/2025. Will plan for PSA F/T prior to appt. He prefers [facility] for lab draws. CT abd/pelvis w/wo to be done in 2 years at [facility]. Addendum by Meghan Brito MD on October 28, 2024 11:49:09 EDT From: Meghan Brito MD To: EU - ELGIN/Lue Messages & Refill; Sent: 10/28/2024 11:49:09 EDT Subject: RE: PSA at [facility] & CT at [facility] Caller Name: MICHAEL KILLIAN; Caller Number: Zoe , M F/u in 1 year with PSA F/T. Since pelvic LNs decreasing, will repeat CT Pelvis in 2 years. Please notify pt of results. Thanks, KML Addendum by Lubna Woo PA-C on October 25, 2024 09:50:01 EDT From: Lubna Woo PA-C (EU - ELGIN/Lue Messages & Refill) To: Meghan Brito MD; Sent: 10/25/2024 09:50:01 EDT Subject: FW: PSA at [facility] & CT at [facility] Caller Name: MICHAEL KILLIAN; Caller Number: Zoe , M PSA significantly decreased from 6.70 to 2.48. Patient okay to have repeat PSA in 1 year, or would you prefer 6 months? Also, CTAP w/+w/o con complete for enlarged iliac lymph nodes. Shows 0.3 cm right external iliac lymph node, 8 mm right common iliac lymph node and 6 mm left external iliac artery lymph node. Previous CT: CT AP w/wo con 07/05/23 [facility] - A few small nonspecific pelvic sidewall lymph nodes. A pelvic sidewall lymph node on R side measures 1.0 x 1.7 cm. A pelvic lymph node on L side measures 1.2 x 1.6 cm. A few additional pelvic lymph nodes on L. Lymph nodes have decreased in size per report. CTAP w/+w/o in 1 year? Addendum by Evie Gongora on October 25, 2024 08:24:30 EDT From: Evie Gongora (EU - Pending Results) To: EU - ELGIN/Lue Messages & Refill; Sent: 10/25/2024 08:24:30 EDT ! Subject: RE: PSA at [facility] & CT at [facility] Caller Name: MICHAEL KILLIAN; Caller Number: Zoe , M 1) PSA 10/18/23 - see below. Results printed and scanned into chart. 2) CT results attached to message. *I also attached latest OV for reference*. From: Rolan, Evie B To: EU - Pending Results; Sent: 10/10/2024 08:43:13 EDT Subject: PSA at [facility] & CT at [facility] Due Date/Time: 10/24/2024 08:43:00 EDT Caller Name: MICHAEL KILLIAN; Caller Number: Zoe , M 1) Pt having PSA done next week at [facility] 2) Pt being scheduled for CT AP w/wo con at [facility], can be done within the next few weeks Has 1 year f/up scheduled. Please ensure pt has PSA and CT completed. Normal [facility]domen/Pelvis w/ + w/o Contrast Exam Date/Time: 10/23/2024 08:02 EDT Reason for Exam: Enlarged lymph node;Other (please specify) Report IMPRESSION: ENLARGED PROSTATE. ENLARGED RIGHT EXTERNAL ILIAC LYMPH NODE. NORMAL SIZED PELVIC LYMPH NODES ALSO DISCUSSED BELOW. CHOLELITHIASIS. CT OF THE ABDOMEN AND PELVIS WITH INTRAVENOUS CONTRAST MEDIUM. HISTORY: ENLARGED LYMPH NODE. PATIENT REPORTS PROSTATE ISSUES AND HAD TURP IN FEB 2024. PT NOW REPORTS ENLARGED LYMPH NODES NEAR PROSTATE. NO URINARY SYMPTOMS TODAY. NO RECENT INJURY/TRAUMA. TECHNICAL FACTORS: CT imaging of the abdomen and pelvis were obtained and formatted as 5 mm contiguous axial images from the domes of the diaphragm to the symphysis pubis. Sagittal and coronal reconstructions were also obtained. Comparison: None Findings: Lower chest: Cardiac size normal. No pericardial effusion. No coronary artery calcification. Lung bases clear. Liver: Normal in size, shape, and attenuation. Bile Ducts: Normal in caliber. Gallbladder: Calculus in gallbladder. No wall thickening or pericholecystic fluid. Pancreas: Normal without masses, cysts, ductal dilatation or calcification. Spleen: Normal in size without masses or calcifications. No splenules. Kidneys: Normal in size and enhancement. No hydronephrosis, masses, or stones. 3.8 cm cortical cyst, mid to upper pole left kidney. Adrenals: Normal. Small bowel: Normal in caliber. Appendix: Normal. Colon: Normal in caliber. Report Peritoneum: No ascites, free air, or fluid collections. Vessels: Aorta normal in course and caliber. Portal vein, splenic vein, superior mesenteric vein are patent. Lymph nodes: Retroperitoneal: No enlarged retroperitoneal lymph nodes. Mesenteric: No enlarged mesenteric lymph nodes. Pelvic: 0.3 cm right external iliac lymph node (series 11, image 71). 8 mm right common iliac lymph node (series 11, image 54). 6 mm left external iliac artery lymph node (11, image 70). Ureters: Normal in course and caliber. No calcifications. Bladder: No wall thickening. Prostate: Enlarged with transverse diameter 5.6 cm. Isolated extends to posterior base urinary bladder. Abdominal Wall: No hernia identified. No diastasis of rectus musculature. No edema or masses. Bones: No bone lesions. Prominent bridging anterior osteophytes L1-L2 with smaller bridging anterior osteophyte L2-L3. No post operative changes. All CT scans at this facility use dose modulation, iterative reconstruction, and/or weight based dosing when appropriate to reduce radiation dose to as low as reasonably achievable. Technical Comments: GFR (mL/min/1/73m2) >60 Contrast: Isovue 300 Contrast amount in ml's: 100.00 Oral contrast amount in ml's: 900.00 Ordering Provider: Meghan Brito FINAL REPORT Dictated: 10/23/2024 10:50 am Gio Nassar MD Signed (Electronic Signature): 10/23/2024 10:50 am Signed by: Gio Nassar MD Transcribed by: REJI Technologist: ARNAV [place] [facility] CHEMISTRYOrdered By: SYSTEM SYSTEM on 10-21-2024 Creatinine [Mass/Vol] 1.3 mg/dL Normal 0.5 - 1.3 mg/dL Remisol Chem eGFR 60 mL/min/1.73 m2 Normal >=59mL/min / 1.73 m2 Remisol Chem Creatinineon 10-21-2024 Creatinine [Mass/Vol] 1.3 mg/dL Normal 0.5-1.3 [facility] Comment on above: Performed By: #### 2 [id number] #### [facility] [address] [place] [address] eGFRon 10-21-2024 eGFR 60 mL/min/1.73 m2 Normal >=59 [facility] Comment on above: Performed By: #### 1 [id number] #### [facility] [address] [place] [address] Estimated glomerular filtrat ion rate (GFR) non- Americanon 10-17-2024 GFR/1.73 sq M.predicted among non-blacks MDRD (S/P/Bld) [Vol rate/Area] Estimated glomerular filtration rate (GFR) non- Low >=60 mL/min/1.73 m 2 [facility] - Chemistry and C hemistry - challengeon 10-17-2024 Calcium [Mass/Vol] 9.2 mg/dL 8.5-10.1 [facility] Chloride [Moles/Vol] 106 mmol/L 98-107 [facility] CO2 [Moles/Vol] 29.2 mmol/L 21.0-32.0 [facility] Creatinine [Mass/Vol] 1.35 mg/dL High 0.70-1.30 [facility] GFR/1.73 sq M.predicted MDRD (S/P/Bld) [Vol rate/Area] mL/min/{1.73_m2} >=60 mL/min/1.73 m 2 [facility] Glucose [Mass/Vol] 127 mg/dL High 74-106 [facility] Potassium [Moles/Vol] 4.4 mmol/L 3.5-5.1 [facility] Sodium [Moles/Vol] 141 mmol/L 136-145 [facility] Urea nitrogen [Mass/Vol] 33.0 mg/dL High 7.0-18.0 [facility] Urea nitrogen/Creatinine [Mass ratio] 24.4 mg/mg [facility] No Panel Informationon 10-17 Prostate Specific Antigen Total 2.48 ng/mL <=4.00 [facility] Serum or plasma anion gap de terminationon 10-17-2024 Anion gap [Moles/Vol] Serum or plasma an ion gap determination [facility] Ambulatory Visit Summaryon 0 10-10-2024 Ambulatory Visit Summary Ambulatory Visit Summary MICHAEL KILLIAN :1955 Visit Date:10/10/2024 Ambulatory Visit Instructions Your Diagnosis BPH with urinary obstruction Elevated PSA Enlarged lymph node ED (erectile dysfunction) Former smoker Your Care Team Attending Physician - Meghan Brito MD Primary Care Physician - MAO CONNOR GIO This Is Your Medications List folic acid (folic acid 1 mg Tab) hydrochlorothiazide (hydrochlorothiazide 25 mg Tab) Contact prescribing physician if questions [...] Height 180 cm Height 71 in Weight 104.7 kg Weight 230.824 lb BMI 32.31 What to do next Scheduled Follow-Up Appointments Monday2025 10:00 AM EDT With: Meghan Brito MD Where: [facility] [address] You Need to Schedule the Following Appointments Follow Up with Meghan Brito MD, URL, URO When: Where: You Need to Complete the Following CT Abdomen/Pelvis w/ + w/o Contrast, 10/10/24, Routine, Order for future visit, Transport Mode: Ambulatory, Reason: Other (please specify), Reason: Enlarged lymph node, No, No, Enlarged lymph node, pp_set_radiology_subsp ecialty, Not Required, [facility] Medications What How Much When Why Instructions Unchanged folic acid (folic acid 1 mg Tab) 1 Tablets Unchanged hydrochlorothiazide (hydrochlorothiazide 25 mg Tab) 1 Tablets Unchanged albuterol (albuterol 0.083% Inh Haydee 3 [...] or symptoms? Symptoms of this condition include: ??? Getting up often during the night to urinate. ??? Needing to urinate frequently during the day. ??? Difficulty starting urine flow. ??? Decrease in size and strength of your urine stream. ??? Leaking (dribbling) afte (more content not included)... Normal [facility] Urology Office/Clinic Noteon 10-10-2024 Urology Office/Clinic Note Urology Office/Clinic Note Chief Complaint 6 month F/U HPI Staff 69 year old male here for 6 month F/U Previous DX: BPH w/LUTS, elevated PSA, ED and enlarged lymph node S/P Urocuff 06/30/23, Cysto 07/31/23, TURP/meatal dilation 03/06/24, TRUS/BX 08/12/15 and 04/07/20 Prostate MRI 04/03/23, select MDX 04/13/23 IPSS 4 Pt. denies having pain or gross hematuria History of Present Illness Tests reviewed: reviewed UA. I have reviewed the previous health record information and history for this patient from Dr. Brito I have reviewed and verified the staff [...] HT: 71 in HT: 180 cm WT: 230.824 lb WT: 104.7 kg BMI: 32.31 General Appearance: alert, no distress, well nourished, well developed male. Assessment/Plan Former Dr. Kern pt, 69 yo male with a history of BPH with LUTS, elevated PSA and enlarged pelvic lymph nodes on MRI prostate s/p neg prostate biopsy, here for routine follow up 1. BPH with urinary obstruction (N40.1: Benign prostatic hyperplasia with lower urinary tract symptoms) PVR (cc) 06/30/23 - 208 11/29/23 - 127 03/29/24 - 21 03/2023 - prostate volume 92 ml S/p Urocuff 06/30/23 [...] degree of nonspecific stromal chronic inflammation observed. UA today negative for blood or infection. IPSS 4 (8) Tried Tamsulosin in the past, did not help as much as Alfuzosin. Pt was to wean off of Alfuzosin since last visit which he has done. Not currently on any BPH meds. Pt states he is doing well. The only complaint he has is occasional post void dribbling, which was present prior to TURP and has improved since. 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 -Cont symptomatic monitoring, timed voids -F/up in 1 year or sooner if needed 2. Elevated PSA (R97.20: Elevated prostate specific antigen [PSA]) PSA 01/2017 - 3.93 01/2018 - 3.84 02/04/19 - 4.27 10/24/19 - 6.60 03/05/20 - 5.32 10/08/20 - 5.87 10/12/21 - 5.5 & 24.7% 12/12/22 - 6.56 04/12/23 - 8.21, PSAD 0.09 11/24/23 - 6.70 S/p TRUS/bx 08/12/15 - microfocus of low grade PIN and 2 cores with atypical glandular acinar aggregate. S/p TRUS/bx 04/07/20 - neg. Prostate MRI 04/03/23 - suggestive of prior prostatitis. Enlarged R pelvic sidewall and L external iliac lymph nodes, largest measuring 12mm in short axis. Nonspecific finding. 92 ml volume. Select MDX 04/13/23 - low risk likelihood of prostate cancer upon bx. S/p Transperineal prostate biopsy 06/06/23 - neg. Chronic inflammation in 1 core. [2] PSA due now. 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 Will add PSA. -PSA next week at [facility], will monitor for results 3. Enlarged lymph node (R59.9: Enlarged lymph nodes, unspecified) Prostate MRI 04/03/23 - prior prostatitis. Enlarged R pelvic sidewall and L external iliac lymph nodes, largest measuring 12mm in short axis. Nonspecific finding. 92 ml volume Negative prostate biopsies, see #2. Elected to proceed with continued surveillance. CT AP w/wo con 07/05/23 [facility] - A few small nonspecific pelvic sidewall lymph nodes. A pelvic sidewall lymph node on R side measures 1.0 x 1.7 cm. A pelvic lymph node on L side measures 1.2 x 1.6 cm. A few additional pelvic lymph nodes on L. [3] No recent imaging. Imaging is due to ensure stability. Will order CT. -CT AP w/wo con at [facility] within the next few months, pt to be called with results If stable, cont q1-2year monitoring 4. ED (erectile dysfunction) (N52.9: Male erectile dysfunction, unspecified) BUD 0 (2) He continues to decline tx. 5. Former smoker (Z87.891: Personal history of nicotine dependence) Stopped smoking a few years ago. Unsure of how long he smoked for. Risk factor for urothelial ca. [4] Follow-up With When Conta (more content not included)... Normal [facility] Comment on above: Result Comment: Elec tronically Signed By: Meghan Brito MD\.br\Date and Time Signed: 10/10/24 08:52 EDT\.br\Electronically Co-Signed By: Evie Gongora.br\Date and Time Co-Signed: 10/10/24 08:41 EDT 36on 10-08-2024 36 Regarding lab result s from 10/04/2024: MD Grace Lott MA Creatinine is up to 1.6 in comparison to 1.3 in December 2023, therefore reduce hydrochlorothiazide to 12.5 mg daily and recheck BMP in 1 week. Ask the patient if his blood pressure looks better. Spoke with patient and he said his BP has pretty much been ok . 110/56 134/65 120/68 133/66 143/69 He will cut hydrochlorothiazide in half and have labs next week. Patient verbalized understanding. Order faxed to [facility]. Normal [facility] 36on 10-07-2024 36 Reguarding Echo form 09/12/2024. Spoke to patient . Advised of Benton Rahman's finding. states she will relay the message to Michael. MD Joana Lott MA Cardiac function and valvular heart disease are stable in comparison to echo 2022, continue current management Normal [facility] Cholesterol in LDL Calc [Mas s/Vol]on 10-04-2024 Cholesterol in LDL [Mass/Vol] Cholesterol in LDL [Mass/volume] in Serum or Plasma by calculation [facility] Comment on above: <100 mg/dl [id number] 0-129 mg/dl NEAR OR ABOVE [id number] mg/dl BORDERLINE [id number] mg/dl HIGH>190 mg/dl VERY HIGH Cholesterol in VLDL Calc [Ma ss/Vol]on 10-04-2024 Cholesterol in VLDL [Mass/Vol] Cholesterol in VLDL [Mass/volume] in Serum or Plasma by calculation [facility] Estimated glomerular filtrat ion rate (GFR) non- Americanon 10-04-2024 GFR/1.73 sq M.predicted among non-blacks MDRD (S/P/Bld) [Vol rate/Area] Estimated glomerular filtration rate (GFR) non- Low >=60 mL/min/1.73 m 2 [facility] Laboratory - Chemistry and C hemistry - challengeon 10-04-2024 ALT [Catalytic activity/Vol] 23 U/L 16-63 [facility] AST [Catalytic activity/Vol] 16 U/L 15-37 [facility] Calcium [Mass/Vol] 9.3 mg/dL 8.5-10.1 [facility] Chloride [Moles/Vol] 103 mmol/L 98-107 [facility] Cholesterol [Mass/Vol] 214 mg/dL High <=200 [facility] Cholesterol in HDL [Mass/Vol] 35 mg/dL Low 40-60 [facility] Comment on above: > or =60 mg/dl - LOW CARDIOVASCULAR RISK<40 mg/dl - HIGH CARDIOVASCULAR RISK CO2 [Moles/Vol] 29.2 mmol/L 21.0-32.0 [facility] Creatinine [Mass/Vol] 1.64 mg/dL High 0.70-1.30 [facility] GFR/1.73 sq M.predicted MDRD (S/P/Bld) [Vol rate/Area] 51 mL/min/{1.73_m2} Low >=60 mL/min/1.73 m 2 [facility] Glucose [Mass/Vol] 125 mg/dL High 74-106 [facility] Potassium [Moles/Vol] 4.4 mmol/L 3.5-5.1 [facility] Sodium [Moles/Vol] 138 mmol/L 136-145 [facility] Triglyceride [Mass/Vol] 161 mg/dL High <=150 [facility] Urea nitrogen [Mass/Vol] 49.0 mg/dL High 7.0-18.0 [facility] Urea nitrogen/Creatinine [Mass ratio] 29.9 mg/mg [facility] Serum or plasma anion gap de terminationon 10-04-2024 Anion gap [Moles/Vol] Serum or plasma an ion gap determination [facility] Serum or plasma total choles terol/high density lipoprotein (HDL) cholesterol mass juve 10-04-2024 Cholesterol.total/Cho lesterol in HDL [Mass ratio] Serum or plasma total cholesterol/high density lipoprotein (HDL) cholesterol mass rat [facility] Comment on above: 3.3 - 4.4 LOW RISK4. 4 - 7.1 AVERAGE RISK7.1 - 11.0 MODERATE RISK>11.0 HIGH RISK Office Visiton 09-04-2024 Follow-up visit [id number] Michael Killian 1955 M Date Provider Department Center 09/04/2024 [id number] LAKHANI Family History Problem Relation Age of Onset Diabetes Mother Heart attack Father Family Status - Relation Status Age at Mother Father Level of Service:69348 IN OFFICE/OUTPATIENT ESTABLISHED MOD MDM 30 MIN Reason for Visit and Comments: 6 month follow up [Other] Heart Murmur [124] Hyperlipidemia [182] Hypertension [174928] Normal [facility] Ambulatory Visit Summaryon 1 Ambulatory Visit [...] Meghan Brito MD Where: [facility] [address] [place] [address]- You Need to Schedule the Following Appointments Follow Up with Meghan Brito MD, URL, URO When: Comments: 6 mos Where: [address] [place] [address] [phone] Medications What How Much When Why Instructions [...] any denice (more content not included)... Normal [facility] Urology Office/Clinic Noteon 03-29-2024 Urology Office/Clinic [...] unspecified) Prost (more content not included)... Normal [facility] Comment on above: Result Comment: Elec tronically Signed By: Daryl HAMILTON, Meghan Tucker\.br\Date and Time Signed: 03/29/24 09:47 EDT\.br\Electronically Co-Signed By: Carissa Hammonds\.br\Date and Time Co-Signed: 03/29/24 08:53 EDT [place] 03-06-2024 L Specimen: [id number] Received: 03/07/24 Status: VIJAY Pulido Num: [id number] Spec Type: Surgical Subm Dr: Meghan Brito MD Tissues: A Prostate - Except Radical Resection, Tur, or Needle Biopsy (PROSTATE TISSUE) Procedures: HE/20, Gross/Micro L5 Age/ Patient Sex Location Account Attending Physician Michael Killian 68/M LABELL [id number] Meghan Brito MD SPEC NUM: [id number] RECD: 03/07/24 STATUS: VIJAY PULIDO NUM: [id number] FANNIE: 03/06/[address]: Meghan Brito MD ENTERED: 03/07/[address] [facility] [address]: Madeline Lovell SPEC TYPE: Surgical DEPT: [facility]ERRY ARGUELLES ENTERED BY: [id number] RECV BY: [id number] ORDERED: HE/20, Gross/Micro L5 ORDERED: HE/20, Gross/Micro [...] cm in aggregate, and weighing 35.4 g. Pulmonary Function Technician sections are submitted in cassettes A1- A20 DM ---- Specimen: [id number] Received: 03/07/24 Status: VIJAY Pulido Num: [id number] Spec Type: Surgical Subm Dr: Meghan Brito MD Tissues: A Prostate - Except Radical Resection, Tur, or Needle Biopsy (PROSTATE TISSUE) Procedures: HE/20, Gross/Micro L5 ---- Patient: Michael Killian [id number] (Continued) ---- Specimen: [id number] Received: 03/07/24 (Continued) Signed (signature on file) Saad Gallegos MD 03/14/24 1541 ---- Specimen: [id number] Received: 03/07/24 Status: CHAMPDemond Pulido Num: [id number] Spec Type: Surgical Subm Dr: Meghan Brito MD Tissues: A Prostate - Except Radical Resection, Tur, or Needle Biopsy (PROSTATE TISSUE) Procedures: /20, Gross/Micro L5 ---- Patient: Michael Killian [id number] (Continued) ---- Specimen: [id number] Received: 03/07/24 (Continued) Microscopic Description Microscopic examinations are performed supporting the above interpretation CPT Codes 92006 ---- ---- Specimen: [id number] Received: 03/07/24 Status: VIJAY Pulido Num: [id number] Spec Type: Surgical Subm Dr: Meghan Brito MD Tissues: A Prostate - Except Radical Resection, Tur, or Needle Biopsy (PROSTATE TISSUE) Procedures: HE/20, Gross/Micro L5 ---- Patient: Michael Killian [id number] (Continued) ---- Signed (signature on file) Olvin-Rajat Gallegos MD 03/14/24 1541 Normal [facility] Laboratory - Chemistry and C hemistry - challengeon 03-06-2024 Chloride [Moles/Vol] 104 mmol/L 98-107 [facility] CO2 [Moles/Vol] 32.5 mmol/L High 21.0-32.0 [facility] Potassium [Moles/Vol] 4.5 mmol/L 3.5-5.1 [facility] Sodium [Moles/Vol] 136 mmol/L 136-145 [facility] Serum or plasma anion gap de terminationon 03-06-2024 Anion gap [Moles/Vol] 4.0 mmol/L [facility] Basophils Auto (Bld) [#/Vol] on 03-05-2024 Basophils (Bld) [#/Vol] 0.0 10 3/uL 0.0-0.1 [facility] Basophils/100 WBC Auto (Bld) on 03-05-2024 Basophils/100 WBC (Bld) 0.4 % 0.2-2.0 [facility] Eosinophils/100 WBC Auto (Bl d)on 03-05-2024 Eosinophils/100 WBC (Bld) 0.7 % Low 0.9-7.0 [facility] Erythrocyte distribution wid th Auto (RBC) [Ratio]on 03-05-2024 Erythrocyte distribution width (RBC) [Ratio] 12.9 % 11.0-15.0 [facility] Hematocrit Auto (Bld) [Volum e fraction]on 03-05-2024 Hematocrit (Bld) [Volume fraction] 40.6 % Low 42.0-54.0 [facility] Hemoglobin [Mass/volume] in Bloodon 03-05-2024 Hemoglobin (Bld) [Mass/Vol] 13.8 g/dL Low 14.0-18.0 [facility] Iron binding capacity [Mass/ volume] in Serum or Plasmaon 03-05-2024 Iron binding capacity [Mass/Vol] 318.0 ug/dL 250.0-450.0 [facility] Iron saturation [Mass Fracti on] in Serum or Plasmaon 03-05-2024 Iron saturation [Mass fraction] 24.5 % [facility] Laboratory - Chemistry and C hemistry - challengeon 03-05-2024 Cobalamin (Vitamin B12) [Mass/Vol] 477 pg/mL 232-1245 [facility] Comment on above: Performed at: [address] [id number] Director: Alexi Mobley PhD, Phone: [phone] Ferritin [Mass/Vol] 270.0 ng/mL 26.0-388.0 [facility] Iron [Mass/Vol] 78.0 ug/dL 65.0-175.0 [facility] Laboratory - Hematology and Cell countson 03-05-2024 Immature granulocytes/100 WBC (Bld) 0.7 % High 0.0-0.5 [facility] Leukocytes [#/volume] correc rina for nucleated erythrocytes in Blood by Automated counon 03-05-2024 WBC corrected for nucl RBC Auto (Bld) [#/Vol] 7.4 10 3/uL 4.0-11.0 [facility] Lymphocytes Auto (Bld) [#/Vo l]on 03-05-2024 Lymphocytes (Bld) [#/Vol] 1.3 10 3/uL 1.2-3.8 [facility] Lymphocytes/100 WBC Auto (Bl d)on 03-05-2024 Lymphocytes/100 WBC (Bld) 17.5 % Low 20.5-60.0 [facility] MCH Auto (RBC) [Entitic mass ]on 03-05-2024 MCH (RBC) [Entitic mass] 29.9 pg 25.9-34.0 [facility] MCHC Auto (RBC) [Mass/Vol]on 03-05-2024 MCHC (RBC) [Mass/Vol] 34.0 g/dL 29.9-35.2 [facility] MCV Auto (RBC) [Entitic vol] on 03-05-2024 MCV (RBC) [Entitic vol] 88.1 fL 80.0-94.0 [facility] Monocytes Auto (Bld) [#/Vol] on 03-05-2024 Monocytes (Bld) [#/Vol] 0.4 10 3/uL 0.3-0.8 [facility] Monocytes/100 WBC Auto (Bld) on 03-05-2024 Monocytes/100 WBC (Bld) 6.0 % 1.7-12.0 [facility] Neutrophils Auto (Bld) [#/Vo l]on 03-05-2024 Neutrophils (Bld) [#/Vol] 5.5 10 3/uL 1.4-6.5 [facility] Neutrophils/100 WBC Auto (Bl d)on 03-05-2024 Neutrophils/100 WBC (Bld) 74.7 % 43.0-75.0 [facility] No Panel Informationon 03-05 Eosinophils # (Auto) 0.1 10 3/uL 0.0-0.7 [facility] Folate 7.60 ng/mL Low 8.60-58.90 [facility] Immature Granulocyte # (Auto) 0.05 10 3/uL High 0.00-0.03 [facility] Platelet mean volume Auto (B ld) [Entitic vol]on 03-05-2024 Platelet mean volume (Bld) [Entitic vol] 10.0 fL 9.5-13.5 [facility] Platelets Auto (Bld) [#/Vol] on 03-05-2024 Platelets (Bld) [#/Vol] 193 10 3/uL 150-450 [facility] RBC Auto (Bld) [#/Vol]on RBC (Bld) [#/Vol] 4.61 10 6/uL Low 4.70-6.10 [facility] Estimated glomerular filtrat ion rate (GFR) non- Americanon 02-22-2024 GFR/1.73 sq M.predicted among non-blacks MDRD (S/P/Bld) [Vol rate/Area] mL/min/{1.73_m2} >=60 [facility] Laboratory - Chemistry and C hemistry - challengeon 02-22-2024 Calcium [Mass/Vol] 9.0 mg/dL 8.5-10.1 [facility] Chloride [Moles/Vol] 104 mmol/L 98-107 [facility] CO2 [Moles/Vol] 27.5 mmol/L 21.0-32.0 [facility] Creatinine [Mass/Vol] 1.07 mg/dL 0.70-1.30 [facility] GFR/1.73 sq M.predicted MDRD (S/P/Bld) [Vol rate/Area] mL/min/{1.73_m2} >=60 [facility] Glucose [Mass/Vol] 114 mg/dL High 74-106 [facility] Potassium [Moles/Vol] 4.2 mmol/L 3.5-5.1 [facility] Sodium [Moles/Vol] 139 mmol/L 136-145 [facility] Urea nitrogen [Mass/Vol] 16.0 mg/dL 7.0-18.0 [facility] Urea nitrogen/Creatinine [Mass ratio] 15.0 mg/mg [facility] Serum or plasma anion gap de terminationon 02-22-2024 Anion gap [Moles/Vol] 11.7 mmol/L [facility] BMPon 12-25-2023 Anion gap [Moles/Vol] 9 mmol/L Normal 6-16 [facility] Comment on above: Performed By: #### 2 [id number] #### [facility] [address] [place] [address] Calcium [Mass/Vol] 9.4 mg/dL Normal 8.9-11.1 [facility] Comment on above: Performed By: #### 2 [id number] #### [facility] [address] [place] [address] Chloride [Moles/Vol] 104 mmol/L Normal 101-111 [facility] Comment on above: Performed By: #### 2 [id number] #### [facility] [address] [place] [address] CO2 [Moles/Vol] 30 mmol/L Normal 21-31 [facility] Comment on above: Performed By: #### 2 [id number] #### [facility] [address] [place] [address] Creatinine [Mass/Vol] 1.3 mg/dL Normal 0.5-1.3 [facility] Comment on above: Performed By: #### 2 [id number] #### [facility] [address] [place] [address] Glucose [Mass/Vol] 113 mg/dL Normal 55-199 [facility] Comment on above: Performed By: #### 2 [id number] #### [facility] [address] [place] [address] Potassium [Moles/Vol] 4.3 mmol/L Normal 3.5-5.3 [facility] Comment on above: Performed By: #### 2 [id number] #### [facility] [address] [place] [address] Sodium [Moles/Vol] 139 mmol/L Normal 135-145 [facility] Comment on above: Performed By: #### 2 [id number] #### [facility] [address] [place] [address] Urea nitrogen [Mass/Vol] 21 mg/dL Normal 5-21 [facility] Comment on above: Performed By: #### 2 [id number] #### [facility] [address] [place] [address] Urea nitrogen/Creatinine [Mass ratio] 16 No Units Normal 10-20 [facility] Comment on above: Performed By: #### 2 [id number] #### [facility] [address] [place] [address] CBC w/ Auto Diffon 4 Basophils/100 WBC (Bld) 2.0 % Normal 0.0-2.0 [facility] Comment on above: Performed By: #### 2 [id number] #### [facility] [address] [place] [address] Basophils/Leukocytes Auto (Bld) [Pure # fraction] 0.1 E9/L Normal 0.0-0.2 [facility] Comment on above: Performed By: #### 2 [id number] #### [facility] [address] [place] [address] Eosinophils (Bld) [#/Vol] 0.3 E9/L Normal 0.0-0.5 [facility] Comment on above: Performed By: #### 2 236751 #### [facility] [address] [place] [address] Eosinophils/100 WBC (Bld) 4.8 % Normal 0.0-8.0 [facility] Comment on above: Performed By: #### 2 [id number] #### [facility] [address] [place] [address] Erythrocyte distribution width (RBC) [Ratio] 14.1 % Normal 10.9-14.2 [facility] Comment on above: Performed By: #### 2 [id number] #### [facility] [address] [place] [address] Hematocrit (Bld) [Volume fraction] 38.5 % Normal 37.7-49.0 [facility] Comment on above: Performed By: #### 2 [id number] #### [facility] [address] [place] [address] Hemoglobin (Bld) [Mass/Vol] 13.7 g/dL Normal 13.5-17.5 [facility] Comment on above: Performed By: #### 2 669160 #### [facility] [address] [place] [address] Lymphocytes (Bld) [#/Vol] 1.6 E9/L Normal 1.0-4.0 [facility] Comment on above: Performed By: #### 2 378504 #### [facility] [address] [place] [address] Lymphocytes/100 WBC (Bld) 29.7 % Normal 14.0-50.0 [facility] Comment on above: Performed By: #### 2 [id number] #### [facility] [address] [place] [address] MCH (RBC) [Entitic mass] 30.3 pg Normal 27.0-34.0 [facility] Comment on above: Performed By: #### 2 [id number] #### [facility] [address] [place] [address] MCHC (RBC) [Mass/Vol] 35.5 g/dL Normal 31.4-36.0 [facility] Comment on above: Performed By: #### 2 [id number] #### [facility] [address] [place] [address] MCV (RBC) [Entitic vol] 85.3 fL Normal 80.0-100.0 [facility] Comment on above: Performed By: #### 2 142151 #### [facility] [address] [place] [address] Monocytes (Bld) [#/Vol] 0.5 E9/L Normal 0.2-1.0 [facility] Comment on above: Performed By: #### 2 754902 #### [facility] [address] [place] [address] Neutrophils (Bld) [#/Vol] 3.1 E9/L Normal 2.0-7.5 [facility] Comment on above: Performed By: #### 2 [id number] #### [facility] [address] [place] [address] Neutrophils/100 WBC (Bld) 55.2 % Normal 36.0-75.0 [facility] Comment on above: Performed By: #### 2 [id number] #### [facility] [address] [place] [address] Platelet 166.0 E9/L Normal 150.0-500.0 [facility] Comment on above: Performed By: #### 2 654385 #### [facility] [address] [place] [address] Platelet mean volume (Bld) [Entitic vol] 8.6 fL Normal 6.4-10.8 [facility] Comment on above: Performed By: #### 2 [id number] #### [facility] [address] [place] [address] RBC (Bld) [#/Vol] 4.5 E12/L Normal 4.3-5.9 [facility] Comment on above: Performed By: #### 2 [id number] #### [facility] [address] [place] [address] WBC corrected for nucl RBC Auto (Bld) [#/Vol] 5.5 E9/L Normal 4.0-11.0 [facility] Comment on above: Performed By: #### 2 [id number] #### [facility] [address] [place] [address] CHEMISTRYOrdered By: [employer] on 12-25-2023 Anion gap [Moles/Vol] 9 mmol/L Normal 6 - 16 mEq/L [facility] Calcium [Mass/Vol] 9.4 mg/dL Normal 8.9 - 11. 1 mg/dL [facility] Chloride [Moles/Vol] 104 mmol/L Normal 101 - 1 11 mmol/L [facility] CO2 [Moles/Vol] 30 mmol/L Normal 21 - 31 mmol/L [facility] Creatinine [Mass/Vol] 1.3 mg/dL Normal 0.5 - 1.3 mg/dL [facility] eGFR 60 mL/min/1.73 m2 Normal >=59mL/min / 1.73 m2 Remisol Chem Glucose [Mass/Vol] 113 mg/dL [...] 35.0 s Normal 25.1 - 36.5 second(s) [facility] Auto Coag Comment on above: [...] the same coagulation reagent and instrumentation as [facility]. Currently there are no coagulation studies available worldwide for children to 14 days, and no normal ranges. Heparin therapeutic range (represented by Anti-Factor Xa activity of 0.2 - 0.4 U/mL) corresponds to PTT of 56.6 - 109.0 sec. INR Coag (PPP) [Relative time] 1.01 {INR} Invalid Interpretation Code [facility] Comment on above: Interpretive Data: I NR results are specifically intended to assess patients stabilized on long-term Anticoagulation therapy suggested INR s Less Intensive Anticoagulation 2.0 3.0 Conventional Range 3.0 4.5 PT Coag (PPP) [Time] 11.3 s Normal 9.4 - 1 2.5 second(s) [facility] Auto Coag Comment on above: [...] from a study by Loi Hooper et alReinier prepared from 1437 samples obtained at 7 different centers using the same coagulation reagent and instrumentation as [facility]. Currently there are no coagulation [...] Coag (PPP) [Time] 35.0 second(s) Normal 25.1-36.5 [facility] Comment on above: Result Comment: Para [...] the same coagulation reagent and instrumentation as [facility]. Currently there are no coagulation studies available worldwide for children to 14 days, and no normal ranges. Heparin therapeutic range (represented by Anti-Factor Xa activity of 0.2 - 0.4 U/mL) corresponds to PTT of 56.6 - 109.0 sec. Performed By: #### 1 [id number] #### [facility] [address] [place] [address] INR Coag (PPP) [Relative time] 1.01 {INR} Invalid Interpretation Code [facility] Comment on above: Result Comment: INR results are specifically intended to assess patients stabilized on long-term Anticoagulation therapy suggested INR?s ?Less Intensive Anticoagulation? 2.0 ? 3.0 Conventional Range 3.0 ? 4.5 Performed By: #### 1 [id number] #### [facility] [address] [place] [address] PT Coag (PPP) [Time] 11.3 second(s) Normal 9.4-12.5 [facility] Comment on above: Result Comment: 15 [...] the same coagulation reagent and instrumentation as [facility]. Currently there are no coagulation studies available worldwide for children to 14 days, and no normal ranges. Performed By: #### 1 [id number] #### [facility] [address] [place] [address] UA with Cult Rflxon 12-25-19 24 Bilirubin Ql (U) Negative Normal Negative [facility] Comment on above: Performed By: #### 4 [id number] #### [facility] [address] [place] [address] Clarity (U) Clear Normal Clear [facility] Comment on above: Performed By: #### 4 [id number] #### [facility] [address] [place] [address] Color (U) Light-Yellow Normal Yellow [facility] Comment on above: Result Comment: Micr oscopic readings are only performed on those samples that meet specific criteria set forth by [facility]. Performed By: #### 4 [id number] #### [facility] [address] [place] [address] Glucose Ql (U) Negative Normal Negative [facility] Comment on above: Performed By: #### 4 [id number] #### [facility] [address] [place] [address] Hemoglobin Auto test strip (U) [Mass/Vol] Negative Normal Negative [facility] Comment on above: Performed By: #### 4 [id number] #### [facility] [address] [place] [address] Ketones Auto test strip Ql (U) Negative Normal Negative [facility] Comment on above: Performed By: #### 4 [id number] #### [facility] [address] [place] [address] Leukocyte esterase Auto test strip Ql (U) Negative Normal Negative [facility] Comment on above: Performed By: #### 4 [id number] #### [facility] [address] [place] [address] Nitrite Auto test strip Ql (U) Negative Normal Negative [facility] Comment on above: Performed By: #### 4 [id number] #### [facility] [address] [place] [address] pH (U) 5.5 [pH] Invalid Interpretation Code 5.0-9.0 [facility] Comment on above: Performed By: #### 4 [id number] #### [facility] [address] [place] [address] Protein Ql (U) Negative Normal Negative [facility] Comment on above: Performed By: #### 4 [id number] #### [facility] [address] [place] [address] Specific gravity (U) [Rel density] 1.012 Invalid Interpretation Code 1.005-1.030 [facility] Comment on above: Performed By: #### 4 [id number] #### [facility] [address] [place] [address] Urobilinogen (U) [Mass/Vol] Negative Normal Negative [facility] Comment on above: Performed By: #### 4 [id number] #### [facility] [address] [place] [address] Type of Urine collection method Clean Catch Normal [facility] Comment on above: Performed By: #### 4 [id number] #### [facility] [address] [place] [address] URINALYSISOrdered By: SYSTEM SYSTEM on 12-25-2023 Bilirubin Ql (U) Negative Normal Negativemg/ dL [facility] UA Auto SS Clarity (U) Clear (12/25/23 7:53 AM) Normal Clear [facility] UA Auto SS Color (U) Light-Yellow 1 (12/25/23 7:53 AM) Normal Yellow [facility] Auto SS Comment on above: Interpretive Data: M icroscopic readings are only performed on those samples that meet specific criteria set forth by [facility]. Glucose Ql (U) Negative Normal Negativemg/ dL [facility] UA Auto SS Hemoglobin Auto test strip (U) [Mass/Vol] Negative Normal Negativemg/ dL FT UA Auto SS Ketones Auto test strip Ql (U) Negative Normal Negativemg/ dL FT UA Auto SS Leukocyte esterase Auto test strip Ql (U) Negative Normal NegativeLeu /uL FT UA Auto SS Nitrite Auto test strip Ql (U) Negative Normal Negativemg/ dL [facility] UA Auto SS pH (U) 5.5 *NA* (12/25/23 7:53 AM) Invalid Interpretation Code 5.0 - 9.0 [facility] UA Auto SS Protein Ql (U) Negative Normal Negativemg/ dL [facility] UA Auto SS Specific gravity (U) [Rel density] 1.012 *NA* (12/25/23 7:53 AM) Invalid Interpretation Code 1.005 - 1.030 [facility] UA Auto SS Urobilinogen (U) [Mass/Vol] Negative Normal Negativemg/ dL [facility] UA Auto SS URINALYSISOrdered By: Genevieve Quintero on 12-25-2023 UA Spec Desc Clean Catch (12/25/23 7:53 AM) Normal [facility] UA Auto SS Screenson 12-01-2023 Screens [id number]#1.0 0TIFF Normal [facility] Screens [id number]#1.0 0TIFF Normal [facility] Consent for Procedure/Surger yon 11-30-2023 Consent for Procedure/Surgery [id number]#1.00 TIFF Normal [facility] Patient Educationon 11-29-19 Patient Education Urology [...] these instructions at home: Medicines ? Take zyfa-lps-uxlgizw and prescription medicines only as told by [...] keep your urine pale yellow. ? Take moli-ngh-ptaomej or prescription medicines. ? Eat foods that [...] provider. Document Revised: 03/08/2022 Document Reviewed: 03/08/2022 [employer] Patient Education ? 2022 [employer]. Transurethral Resection o (more content not included)... Normal [facility] Urology Office/Clinic Noteon 11-29-2023 Urology Office/Clinic [...] pelvic jameel (more content not included)... Normal [facility] Comment on above: Result Comment: Elec tronically Signed By: Meghan Brito MD\.br\Date and Time Signed: 11/29/23 16:11 EDT\.br\Electronically Co-Signed By: Carissa Hammonds\.br\Date and Time Co-Signed: 11/29/23 11:34 EDT Basophils Auto (Bld) [#/Vol] on 11-24-2023 Basophils (Bld) [#/Vol] 0.1 10 3/uL 0.0-0.1 [facility] Basophils/100 WBC Auto (Bld) on 11-24-2023 Basophils/100 WBC (Bld) 1.4 % 0.2-2.0 [facility] Cholesterol in LDL Calc [Mas s/Vol]on 11-24-2023 Cholesterol in LDL [Mass/Vol] 135.0 mg/dL [facility] Comment on above: <100 mg/dl [id number] 0-129 mg/dl NEAR OR ABOVE [id number] mg/dl BORDERLINE [id number] mg/dl HIGH>190 mg/dl VERY HIGH Cholesterol in VLDL Calc [Ma ss/Vol]on 11-24-2023 Cholesterol in VLDL [Mass/Vol] 19.2 mg/dL [facility] Eosinophils/100 WBC Auto (Bl d)on 11-24-2023 Eosinophils/100 WBC (Bld) 4.8 % 0.9-7.0 [facility] Erythrocyte distribution wid th Auto (RBC) [Ratio]on 11-24-2023 Erythrocyte distribution width (RBC) [Ratio] 13.2 % 11.0-15.0 [facility] Estimated glomerular filtrat ion rate (GFR) non- Americanon 11-24-2023 GFR/1.73 sq M.predicted among non-blacks MDRD (S/P/Bld) [Vol rate/Area] 51 mL/min/{1.73_m2} >=60 [facility] Globulin Calc (S) [Mass/Vol] on 11-24-2023 Globulin (S) [Mass/Vol] 3.5 g/dL [facility] Hematocrit Auto (Bld) [Volum e fraction]on 11-24-2023 Hematocrit (Bld) [Volume fraction] 39.3 % 42.0-54.0 [facility] Hemoglobin [Mass/volume] in Bloodon 11-24-2023 Hemoglobin (Bld) [Mass/Vol] 12.9 g/dL 14.0-18.0 [facility] Laboratory - Chemistry and C hemistry - challengeon 11-24-2023 Albumin [Mass/Vol] 3.8 g/dL 3.4-5.0 [facility] ALP [Catalytic activity/Vol] 72 U/L 46-116 [facility] ALT [Catalytic activity/Vol] 25 U/L 16-63 [facility] AST [Catalytic activity/Vol] 17 U/L 15-37 [facility] Bilirubin [Mass/Vol] 0.9 mg/dL 0.2-1.0 [facility] Calcium [Mass/Vol] 8.9 mg/dL 8.5-10.1 [facility] Chloride [Moles/Vol] 105 mmol/L 98-107 [facility] Cholesterol [Mass/Vol] 188 mg/dL <=200 [facility] Cholesterol in HDL [Mass/Vol] 34 mg/dL 40-60 [facility] Comment on above: > or =60 mg/dl - LOW CARDIOVASCULAR RISK<40 mg/dl - HIGH CARDIOVASCULAR RISK CO2 [Moles/Vol] 28.1 mmol/L 21.0-32.0 [facility] Creatinine [Mass/Vol] 1.40 mg/dL 0.70-1.30 [facility] GFR/1.73 sq M.predicted MDRD (S/P/Bld) [Vol rate/Area] mL/min/{1.73_m2} >=60 [facility] Glucose [Mass/Vol] 114 mg/dL 74-106 [facility] Potassium [Moles/Vol] 4.2 mmol/L 3.5-5.1 [facility] Protein [Mass/Vol] 7.3 g/dL 6.4-8.2 [facility] Sodium [Moles/Vol] 142 mmol/L 136-145 [facility] Triglyceride [Mass/Vol] 96 mg/dL <=150 [facility] Urea nitrogen [Mass/Vol] 22.0 mg/dL 7.0-18.0 [facility] Urea nitrogen/Creatinine [Mass ratio] 15.7 mg/mg [facility] Laboratory - Hematology and Cell countson 11-24-2023 Immature granulocytes/100 WBC (Bld) 0.2 % 0.0-0.5 [facility] Leukocytes [#/volume] correc rina for nucleated erythrocytes in Blood by Automated counon 11-24-2023 WBC corrected for nucl RBC Auto (Bld) [#/Vol] 5.0 10 3/uL 4.0-11.0 [facility] Lymphocytes Auto (Bld) [#/Vo l]on 11-24-2023 Lymphocytes (Bld) [#/Vol] 1.6 10 3/uL 1.2-3.8 [facility] Lymphocytes/100 WBC Auto (Bl d)on 11-24-2023 Lymphocytes/100 WBC (Bld) 31.0 % 20.5-60.0 [facility] MCH Auto (RBC) [Entitic mass ]on 11-24-2023 MCH (RBC) [Entitic mass] 28.4 pg 25.9-34.0 [facility] MCHC Auto (RBC) [Mass/Vol]on 11-24-2023 MCHC (RBC) [Mass/Vol] 32.8 g/dL 29.9-35.2 [facility] MCV Auto (RBC) [Entitic vol] on 11-24-2023 MCV (RBC) [Entitic vol] 86.6 fL 80.0-94.0 [facility] Monocytes Auto (Bld) [#/Vol] on 11-24-2023 Monocytes (Bld) [#/Vol] 0.4 10 3/uL 0.3-0.8 [facility] Monocytes/100 WBC Auto (Bld) on 11-24-2023 Monocytes/100 WBC (Bld) 8.1 % 1.7-12.0 [facility] Neutrophils Auto (Bld) [#/Vo l]on 11-24-2023 Neutrophils (Bld) [#/Vol] 2.8 10 3/uL 1.4-6.5 [facility] Neutrophils/100 WBC Auto (Bl d)on 11-24-2023 Neutrophils/100 WBC (Bld) 54.5 % 43.0-75.0 [facility] No Panel Informationon 11-23 Eosinophils # (Auto) 0.2 10 3/uL 0.0-0.7 [facility] Immature Granulocyte # (Auto) 0.01 10 3/uL 0.00-0.03 [facility] Prostate Specific Antigen Screen 6.70 ng/mL <=4.00 [facility] Platelet mean volume Auto (B ld) [Entitic vol]on 11-24-2023 Platelet mean volume (Bld) [Entitic vol] 10.3 fL 9.5-13.5 [facility] Platelets Auto (Bld) [#/Vol] on 11-24-2023 Platelets (Bld) [#/Vol] 177 10 3/uL 150-450 [facility] RBC Auto (Bld) [#/Vol]on RBC (Bld) [#/Vol] 4.54 10 6/uL 4.70-6.10 [facility] Serum or plasma albumin/glob ulin mass ratioon 11-24-2023 Albumin/Globulin [Mass ratio] 1.1 {ratio} [facility] Serum or plasma anion gap de terminationon 11-24-2023 Anion gap [Moles/Vol] 13.1 mmol/L Fi [facility] Serum or plasma total choles terol/high density lipoprotein (HDL) cholesterol mass juve 11-24-2023 Cholesterol.total/Cho lesterol in HDL [Mass ratio] 5.5 {ratio} [facility] Comment on above: 3.3 - 4.4 LOW RISK4. 4 - 7.1 AVERAGE RISK7.1 - 11.0 MODERATE RISK>11.0 HIGH RISK ISTAT XRay CREon 04-03-2023 ISTAT GFR 55.088 Normal [facility] Comment on above: Result Comment: PERF ORMED BY: [place] [address] PATHOLOGIST CHILI MAKER SARAH BETH SILVEIRA M.D. Performed By: #### I SCRE #### [address] MR prostate wo/w conon 04-03 MR prostate wo/w con [facility] [place] [address] [address] MRI Report Signed Patient: Michael Killian MR#: [id number] : 1955 Acct:[id number] Age/Sex: 68 / M ADM Date: 04/03/23 Loc: MR Room: Type: [facility] Attending Dr: Theresa Arriola PA-C [...] Cleary Jr., D.O.04/03/2023 1:40 PM Dictation Location: [place] [address] Transcribed By: [facility] 04/03/23 1340 Dictated By: Leandro Cleary Jr, DO 04/03/23 1334 Signed By: 04/03/23 1340 Normal [facility] Whole blood creatinine measu rementOrdered By: Theresa Arriola on 04-03-2023 Creatinine [Mass/Vol] 1.4 mg/dL High 0.6-1.3 [facility] Comment on above: ER/ESD physician is notified/shown all ISTAT results.Critical values may be confirmed by laboratory testing ifdeemed necessary by ER attending doctor. Result Comment: ER/E SD physician is notified/shown all ISTAT results. Critical values may be confirmed by laboratory testing if deemed necessary by ER attending doctor. Performed By: #### I SCRE #### [facility] [address] [id number] [facility] PROF 14(COMP METB)on 023 Albumin [Mass/Vol] 3.9 g/dL Normal 3.4-5.[address] [facility] Comment on above: Performed By: #### B MP #### [facility] [address] [place] [address] [address] Duy Gallegos Albumin/Globulin [Mass ratio] 1.1 {ratio} Normal [facility] Comment on above: Performed By: #### B MP #### [facility] [address] [place] [address] Dr. Duy Gallegos ALP [Catalytic activity/Vol] 70 U/L Normal 46-116 [facility] Comment on above: Performed By: #### B MP #### [facility] [address] [place] [address] Dr. Duy Gallegos ALT [Catalytic activity/Vol] 26 U/L Normal 16-63 [facility] Comment on above: Performed By: #### B MP #### [facility] [address] [place] [address] Dr. Duy Gallegos Anion gap [Moles/Vol] 13.1 mmol/L Normal [facility] Comment on above: Performed By: #### B MP #### [facility] [address] [place] [address] Dr. Duy Gallegos AST [Catalytic activity/Vol] 17 U/L Normal 15-37 [facility] Comment on above: Performed By: #### B MP #### [facility] [address] [place] [address] Dr. Duy Gallegos Bilirubin [Mass/Vol] 0.6 mg/dL Normal 0.2-1.0 [facility] Comment on above: Performed By: #### B MP #### [facility] [address] [place] [address] Dr. Duy Gallegos Calcium [Mass/Vol] 9.0 mg/dL Normal 8.5-10.[address] [facility] Comment on above: Performed By: #### B MP #### [facility] [address] [place] [address] Dr. Duy Gallegos Chloride [Moles/Vol] 106 mmol/L Normal 98-107 [facility] Comment on above: Performed By: #### B MP #### [facility] [address] [place] [address] Dr. Duy Gallegos CO2 [Moles/Vol] 28.5 mmol/L Normal 21.0-32.0 [facility] Comment on above: Performed By: #### B MP #### [facility] [address] [place] [address] Dr. Duy Gallegos Creatinine [Mass/Vol] 1.22 mg/dL Normal 0.70-1.30 [facility] Comment on above: Performed By: #### B MP #### [facility] [address] [address] [address] Duy Gallegos EGFR-AF MAURITANIAN >60 Normal >=60 [facility] Comment on above: Performed By: #### B MP #### [facility] [address] [address] [address] Duy Gallegos EGFR-NON AF MAURITANIAN 59 mL/min/1.73m2 Critically low >=60 [facility] Comment on above: Performed By: #### B MP #### [facility] [address] [place] [address] Dr. Duy Gallegos Globulin (S) [Mass/Vol] 3.7 g/dL Normal [facility] Comment on above: Performed By: #### B MP #### [facility] [address] [place] [address] Dr. Duy Gallegos Glucose [Mass/Vol] 113 mg/dL Critically high 74-106 [facility] Comment on above: Performed By: #### B MP #### [facility] [address] [place] [address] Dr. Duy Gallegos Potassium [Moles/Vol] 4.6 mmol/L Normal 3.5-5.1 [facility] Comment on above: Performed By: #### B MP #### [facility] [address] [place] [address] Dr. Duy Gallegos Protein [Mass/Vol] 7.6 g/dL Normal 6.4-8.2 [facility] Comment on above: Performed By: #### B MP #### [facility] [address] [address] [address] Duy Gallegos Sodium [Moles/Vol] 143 mmol/L Normal 136-145 [facility] Comment on above: Performed By: #### B MP #### [facility] [address] [address] [address] Duy Gallegos Urea nitrogen [Mass/Vol] 12.0 mg/dL Normal 7.0-18.0 [facility] Comment on above: Performed By: #### B MP #### [facility] [address] [place] [address] Dr. Duy Gallegos Urea nitrogen/Creatinine [Mass ratio] 9.8 mg/mg Normal [facility] Comment on above: Performed By: #### B MP #### [facility] [address] [id number] Duy Gallegos XR CHEST 2 Von [...] by: LIDYA VALE Date: 2022-11-07 09:16 Normal [facility] CULTURE BLOODon 08-30-2022 Microscopic examination of [...] <=0.25 S F Clindamycin <=0.25 S F Quinupristin/Dalfopris tin 0.5 S F Linezolid 2 S F Vancomycin <=0.5 S F Tetracycline <=1 S F Rifampicin <=0.5 S F Trimethoprim/Sulfameth oxazole <=10 S F Normal [facility] Comment on above: Performed By: #### B MP #### [facility] [address] [place], [place] [id number] Dr. Duy Gallegos HEPATITIS PANEL, ACUTEon HBsAg Screen Negative Normal Negative [facility] Comment on above: Performed By: #### C BC #### [facility] [address] [place] [address] Dr. Duy Gallegos HCV AB Non-Reactive Normal Non Reactive [facility] Comment on above: Performed By: #### C BC #### [facility] [address] [place] [address] Dr. Duy Gallegos Hep A Ab, IgM Negative Normal Negative [facility] Comment on above: Performed By: #### C BC #### [facility] [address] [place] [address] Dr. Duy Gallegos Hep B Core Ab, IgM Negative Normal Negative [facility] Comment on above: Performed By: #### C BC #### [facility] [address] [place] [address] Dr. Duy Gallegos Interpretation: Comment Normal [facility] Comment on above: Result Comment: Not infected with HCV unless early or acute infection is suspected (which may be delayed in an immunocompromised individual), or other evidence exists to indicate HCV infection. Performed By: #### C BC #### [facility] [address] [place] [address] Dr. Duy Gallegos CBC W MANUAL DIFFon 08-29-19 23 ATYPICAL LYMPH # Normal [facility] Comment on above: Performed By: #### B MP #### [facility] [address] [place] [address] Dr. Duy Gallegos ATYPICAL LYMPH % Normal [facility] Comment on above: Performed By: #### B MP #### [facility] [address] [place] [address] Dr. Duy Gallegos BAND # 0.0 103/ul Normal 0.0-0.3 [facility] Comment on above: Performed By: #### B MP #### [facility] [address] [place] [address] Dr. Duy Gallegos BAND % 0 % Normal 0-5 [facility] Comment on above: Performed By: #### B MP #### [facility] [address] [place] [address] Dr. Duy Gallegos BASOM # 0.00 103/ul Normal 0.00-0.10 [facility] Comment on above: Performed By: #### B MP #### [facility] [address] [address] [address] Duy Gallegos BASOM % 0.0 % Critically low 0.2-2.0 [facility] Comment on above: Performed By: #### B MP #### [facility] [address] [address] [address] Duy Gallegos BLAST # Normal [facility] Comment on above: Performed By: #### B MP #### [facility] [address] [address] [address] Duy Gallegos BLAST % Normal [facility] Comment on above: Performed By: #### B MP #### [facility] [address] [place] [address] Dr. Duy Gallegos CORRECTED WBC Normal 4.0-11.0 [facility] Comment on above: Performed By: #### B MP #### [facility] [address] [place] [address] Dr. Duy Gallegos EOS # 0.00 103/ul Normal 0.00-0.70 [facility] Comment on above: Performed By: #### B MP #### [facility] [address] [place] [address] Dr. Duy Gallegos EOS% 0.0 % Critically low 0.9-7.0 [facility] Comment on above: Performed By: #### B MP #### [facility] [address] [place] [address] Dr. Duy Gallegos HCT 36.8 % Critically low 42.0-54.0 [facility] Comment on above: Performed By: #### B MP #### [facility] [address] [place] [address] Dr. Duy Gallegos HGB 12.0 g/dl Critically low 14.0-18.0 [facility] [facility] Comment on above: Performed By: #### B MP #### [facility] [address] [place] [address] Dr. Duy Gallegos LYMPHM # 0.47 103/ul Critically low 1.20-3.80 [facility] Comment on above: Performed By: #### B MP #### [facility] [address] [address] [address] Duy Gallegos LYMPHM% 6.0 % Critically low 20.5-60.0 [facility] Comment on above: Performed By: #### B MP #### [facility] [address] [place] [address] Dr. Duy Gallegos MCH 28.4 pg Normal 25.9-34.0 [facility] Comment on above: Performed By: #### B MP #### [facility] [address] [place] [address] Dr. Duy Gallegos MCHC 32.6 g/dl Normal 29.9-35.2 [facility] Comment on above: Performed By: #### B MP #### [facility] [address] [place] [address] Dr. Duy Gallegos MCV 87.0 fL Normal 80.0-94.0 [facility] Comment on above: Performed By: #### B MP #### [facility] [address] [place] [address] Dr. Duy Gallegos METAMYELOCYTE # Normal [facility] Comment on above: Performed By: #### B MP #### [facility] [address] [place] [address] Dr. Duy Gallegos METAMYELOCYTE % Normal [facility] Comment on above: Performed By: #### B MP #### [facility] [address] [place] [address] Dr. Duy Gallegos MONOM# 0.40 103/ul Normal 0.30-0.80 [facility] Comment on above: Performed By: #### B MP #### [facility] [address] [place] [address] Dr. Duy Gallegos MONOM% 5.0 % Normal 1.7-12.0 [facility] Comment on above: Performed By: #### B MP #### [facility] [address] [place] [address] Dr. Duy Gallegos MPV 10.2 fL Normal 9.5-13.5 [facility] Comment on above: Performed By: #### B MP #### [facility] [address] [address] [address] Duy Gallegos MYELOCYTE # Normal [facility] Comment on above: Performed By: #### B MP #### [facility] [address] [address] [address] Duy Gallegos MYELOCYTE % Normal [facility] Comment on above: Performed By: #### B MP #### [facility] [address] [address] [address] Duy Gallegos NRBC Normal [facility] Comment on above: Performed By: #### B MP #### [facility] [address] [address] [address] Duy Gallegos PLT 205 103/ul Normal 150-450 [facility] Comment on above: Performed By: #### B MP #### [facility] [address] [address] [address] Duy Gallegos RBC 4.23 106/ul Critically low 4.70-6.10 [facility] Comment on above: Performed By: #### B MP #### [facility] [address] [address] [address] Duy Gallegos RDW 13.3 % Normal 11.0-15.0 [facility] Comment on above: Performed By: #### B MP #### [facility] [address] [address] [address] Duy Gallegos SEG # 7.03 103/ul Critically high 1.40-6.[address] [facility] Comment on above: Performed By: #### B MP #### [facility] [address] [address] [address] Duy Gallegos SEG % 89.0 % Critically high 43.0-75.0 [facility] Comment on above: Performed By: #### B MP #### [facility] [address] [address] [address] Duy Gallegos WBC 7.9 103/ul Normal 4.0-11.0 [facility] Comment on above: Performed By: #### B MP #### [facility] [address] [place] [address] Dr. Duy Gallegos PROF 14(COMP METB)on 023 Albumin [Mass/Vol] 3.4 g/dL Normal 3.4-5.[address] [facility] Comment on above: Performed By: #### C BC #### [facility] [address] [address] [address] Duy Gallegos Albumin/Globulin [Mass ratio] 1.0 {ratio} Normal [facility] Comment on above: Performed By: #### C BC #### [facility] [address] [place] [address] Dr. Duy Gallegos ALP [Catalytic activity/Vol] 73 U/L Normal 46-116 [facility] Comment on above: Performed By: #### C BC #### [facility] [address] [place] [address] Dr. Duy Gallegos ALT [Catalytic activity/Vol] 66 U/L Critically high 16-63 [facility] Comment on above: Performed By: #### C BC #### [facility] [address] [place] [address] Dr. Duy Gallegos Anion gap [Moles/Vol] 10.6 mmol/L Normal [facility] Comment on above: Performed By: #### C BC #### [facility] [address] [place] [address] Dr. Duy Gallegos AST [Catalytic activity/Vol] 26 U/L Normal 15-37 [facility] Comment on above: Performed By: #### C BC #### [facility] [address] [place] [address] Dr. Duy Gallegos Bilirubin [Mass/Vol] 0.3 mg/dL Normal 0.2-1.0 [facility] Comment on above: Performed By: #### C BC #### [facility] [address] [place] [address] Dr. Duy Gallegos Calcium [Mass/Vol] 8.9 mg/dL Normal 8.5-10.[address] [facility] Comment on above: Performed By: #### C BC #### [facility] [address] [address] [address] Duy Gallegos Chloride [Moles/Vol] 106 mmol/L Normal 98-107 [facility] Comment on above: Performed By: #### C BC #### [facility] [address] [place] [address] Dr. Duy Gallegos CO2 [Moles/Vol] 29.3 mmol/L Normal 21.0-32.0 [facility] Comment on above: Performed By: #### C BC #### [facility] [address] [place] [address] Dr. Duy Gallegos Creatinine [Mass/Vol] 1.12 mg/dL Normal 0.70-1.30 [facility] Comment on above: Performed By: #### C BC #### [facility] [address] [place] [address] Dr. Duy Gallegos EGFR-AF MAURITANIAN >60 Normal >=[address] [facility] Comment on above: Performed By: #### C BC #### [facility] [address] [place] [address] Dr. Duy Gallegos EGFR-NON AF MAURITANIAN >60 Normal >=60 [facility] Comment on above: Performed By: #### C BC #### [facility] [address] [address] [address] Duy Gallegos Globulin (S) [Mass/Vol] 3.3 g/dL Normal [facility] Comment on above: Performed By: #### C BC #### [facility] [address] [place] [address] Dr. Duy Gallegos Glucose [Mass/Vol] 157 mg/dL Critically high 74-106 T [facility] Comment on above: Performed By: #### C BC #### [facility] [address] [place] [address] Dr. Duy Gallegos Potassium [Moles/Vol] 4.9 mmol/L Normal 3.5-5.1 [facility] Comment on above: Performed By: #### C BC #### [facility] [address] [place] [address] Dr. Duy Gallegos Protein [Mass/Vol] 6.7 g/dL Normal 6.4-8.2 [facility] Comment on above: Performed By: #### C BC #### [facility] [address] [place] [address] Dr. Duy Gallegos Sodium [Moles/Vol] 141 mmol/L Normal 136-145 [facility] Comment on above: Performed By: #### C BC #### [facility] [address] [place] [address] Dr. Duy Gallegos Urea nitrogen [Mass/Vol] 22.0 mg/dL Critically high 7.0-18.0 [facility] Comment on above: Performed By: #### C BC #### [facility] [address] [place] [address] Dr. Duy Gallegos Urea nitrogen/Creatinine [Mass ratio] 19.6 mg/mg Normal [facility] Comment on above: Performed By: #### C BC #### [facility] [address] [place] [address] Dr. Duy Gallegos MAGNESIUMon 08-27-2022 Magnesium [Mass/Vol] 2.0 mg/dL Normal 1.8-2.4 [facility] Comment on above: Performed By: #### C MP, MG #### [facility] [address] [place] [address] Dr. Duy Gallegos PROF 14(COMP METB)on 023 Albumin [Mass/Vol] 3.6 g/dL Normal 3.4-5.[address] [facility] Comment on above: Performed By: #### C MP, MG #### [facility] [address] [place] [address] Dr. Duy Gallegos Albumin/Globulin [Mass ratio] 0.9 {ratio} Normal [facility] Comment on above: Performed By: #### C MP, MG #### [facility] [address] [place] [address] Dr. Duy Gallegos ALP [Catalytic activity/Vol] 79 U/L Normal 46-116 [facility] Comment on above: Performed By: #### C MP, MG #### [facility] [address] [address] [address] Duy Gallegos ALT [Catalytic activity/Vol] 86 U/L Critically high 16-63 [facility] Comment on above: Performed By: #### C MP, MG #### [facility] [address] [address] [address] Duy Gallegos Anion gap [Moles/Vol] 14.3 mmol/L Normal Th e [facility] Comment on above: Performed By: #### C MP, MG #### [facility] [address] [address] [address] Duy Gallegos AST [Catalytic activity/Vol] 38 U/L Critically high 15-37 [facility] Comment on above: Performed By: #### C MP, MG #### [facility] [address] [place] [address] Dr. Duy Gallegos Bilirubin [Mass/Vol] 0.4 mg/dL Normal 0.2-1.0 [facility] Comment on above: Performed By: #### C MP, MG #### [facility] [address] [place] [address] Dr. Duy Gallegos Calcium [Mass/Vol] 9.3 mg/dL Normal 8.5-10.[address] [facility] Comment on above: Performed By: #### C MP, MG #### [facility] [address] [place] [address] Dr. Duy Gallegos Chloride [Moles/Vol] 106 mmol/L Normal 98-107 [facility] Comment on above: Performed By: #### C MP, MG #### [facility] [address] [place] [address] Dr. Duy Gallegos CO2 [Moles/Vol] 27.1 mmol/L Normal 21.0-32.0 [facility] Comment on above: Performed By: #### C MP, MG #### [facility] [address] [place] [address] Dr. Duy Gallegos Creatinine [Mass/Vol] 1.17 mg/dL Normal 0.70-1.30 [facility] Comment on above: Performed By: #### C MP, MG #### [facility] [address] [place] [address] Dr. uDy Gallegos EGFR-AF MAURITANIAN >60 Normal >=60 [facility] Comment on above: Performed By: #### C MP, MG #### [facility] [address] [place] [address] Dr. Duy Gallegos EGFR-NON AF MAURITANIAN >60 Normal >=60 [facility] Comment on above: Performed By: #### C MP, MG #### [facility] [address] [address] [address] Duy Gallegos Globulin (S) [Mass/Vol] 3.8 g/dL Normal [facility] Comment on above: Performed By: #### C MP, MG #### [facility] [address] [place] [address] Dr. Duy Gallegos Glucose [Mass/Vol] 163 mg/dL Critically high 74-106 [facility] Comment on above: Performed By: #### C MP, MG #### [facility] [address] [address] [address] Duy Gallegos Potassium [Moles/Vol] 5.4 mmol/L Critically high 3.5-5.1 [facility] Comment on above: Performed By: #### C MP, MG #### [facility] [address] [place] [address] Dr. Duy Gallegos Protein [Mass/Vol] 7.4 g/dL Normal 6.4-8.2 [facility] Comment on above: Performed By: #### C MP, MG #### [facility] [address] [place] [address] Dr. Duy Gallegos Sodium [Moles/Vol] 142 mmol/L Normal 136-145 [facility] Comment on above: Performed By: #### C MP, MG #### [facility] [address] [place] [address] Dr. Duy Gallegos Urea nitrogen [Mass/Vol] 16.0 mg/dL Normal 7.0-18.0 [facility] Comment on above: Performed By: #### C MP, MG #### [facility] [address] [place] [address] Dr. Duy Gallegos Urea nitrogen/Creatinine [Mass ratio] 13.7 mg/mg Normal [facility] Comment on above: Performed By: #### C MP, MG #### [facility] [address] [address] [address] Duy Gallegos PROF CHEM 8 (BAS METB)on Anion gap [Moles/Vol] 15.1 mmol/L Normal [facility] Comment on above: Performed By: #### B MP #### [facility] [address] [address] [address] Duy Gallegos Calcium [Mass/Vol] 9.0 mg/dL Normal 8.5-10.[address] [facility] Comment on above: Performed By: #### B MP #### [facility] [address] [place] [address] Dr. Duy Gallegos Chloride [Moles/Vol] 105 mmol/L Normal 98-107 [facility] Comment on above: Performed By: #### B MP #### [facility] [address] [place] [address] Dr. Duy Gallegos CO2 [Moles/Vol] 27.0 mmol/L Normal 21.0-32.0 [facility] Comment on above: Performed By: #### B MP #### [facility] [address] [place] [address] Dr. Duy Gallegos Creatinine [Mass/Vol] 1.20 mg/dL Normal 0.70-1.30 [facility] Comment on above: Performed By: #### B MP #### [facility] [address] [place] [address] Dr. Duy Gallegos EGFR-AF MAURITANIAN >60 Normal >=60 [facility] Comment on above: Performed By: #### B MP #### [facility] [address] [address] [address] Duy Gallegos EGFR-NON AF MAURITANIAN >60 Normal >=60 [facility] Comment on above: Performed By: #### B MP #### [facility] [address] [place] [address] Dr. Duy Gallegos Glucose [Mass/Vol] 155 mg/dL Critically high 74-106 T [facility] Comment on above: Performed By: #### B MP #### [facility] [address] [address] [address] Duy Gallegos Potassium [Moles/Vol] 5.1 mmol/L Normal 3.5-5.1 [facility] Comment on above: Performed By: #### B MP #### [facility] [address] [address] [address] Duy Gallegos Sodium [Moles/Vol] 142 mmol/L Normal 136-[address] [facility] Comment on above: Performed By: #### B MP #### [facility] [address] [address] [address] Duy Gallegos Urea nitrogen [Mass/Vol] 19.0 mg/dL Critically high 7.0-18.0 [facility] Comment on above: Performed By: #### B MP #### [facility] [address] [address] [address] Duy Gallegos Urea nitrogen/Creatinine [Mass ratio] 15.8 mg/mg Normal [facility] Comment on above: Performed By: #### B MP #### [facility] [address] [address] [address] Duy Gallegos XR CHEST 2 Von [...] GRACIE DEAN Date: 2022-08-27 08:27 Normal [facility] BLOOD CULTURE ID PANELon A. baumannii Not detected Normal NOT DETECTED [facility] Comment on above: Performed By: #### C BC #### [facility] [address] [address] [address] Duy Gallegos Bacteriodes fragilis Not detected Normal NOT DETECTED [facility] Comment on above: Performed By: #### C BC #### [facility] [address] [place] [address] Dr. Duy Gallegos BCID CONTROLS PASSED Normal [facility] Comment on above: Performed By: #### C BC #### [facility] [address] [address] [address] Duy Gallegos BCIDBTHD BLOOD CULTURE BOTTLE INFORMATION [facility] Comment on above: Performed By: #### C BC #### [facility] [address] [place] [address] Dr. Duy Gallegos BCIDHD1 ANTIMICROBIAL RESISTANCE GENES [facility] Comment on above: Performed By: #### C BC #### [facility] [address] [place] [address] Dr. Duy Gallegos BCIDHD2 SEE BELOW [facility] Comment on above: Result Comment: Note : Antimicrobial resitance can occur via multiple mechanisms. A Not Detected result for the [employer] antomicrobial resistance gene assays does not indicate antimicrobial susceptibility. Subculturing is required for species identification and susceptibility testing of isolates. Performed By: #### C BC #### [facility] [address] [place] [address] Dr. Duy Gallegos BCIDHD3 Positive [facility] Comment on above: Performed By: #### C BC #### [facility] [address] [place] [address] Dr. Duy Gallegos BCIDHD4 Negative [facility] Comment on above: Performed By: #### C BC #### [facility] [address] [place] [address] Dr. Duy PEREIRADHD5 YEAST Normal [facility] Comment on above: Performed By: #### C BC #### [facility] [address] [place] [address] Dr. Duy Gallegos Bottle Set: Set 1 [facility] Comment on above: Performed By: #### C BC #### [facility] [address] [place] [address] Dr. Duy Gallegos Bottle: Anaerobic Normal [facility] Comment on above: Performed By: #### C BC #### [facility] [address] [place] [address] Dr. Duy Gallegos C. neoformans/gattii Not detected Normal NOT DETECTED [facility] Comment on above: Performed By: #### C BC #### [facility] [address] [place] [address] Dr. Duy Gallegos Gala albicans Not detected Normal NOT DETECTED [facility] Comment on above: Performed By: #### C BC #### [facility] [address] [place] [address] Dr. Duy Gallegos Gala auris Not detected Normal NOT DETECTED [facility] Comment on above: Performed By: #### C BC #### [facility] [address] [place] [address] Dr. Duy Gallegos Gala glabrata Not detected Normal NOT DETECTED [facility] Comment on above: Performed By: #### C BC #### [facility] [address] [place] [address] Dr. Duy aGllegos Gala Krusei Not detected Normal NOT DETECTED [facility] Comment on above: Performed By: #### C BC #### [facility] [address] [place] [address] Dr. Duy Gallegos Gala Parapsilosis Not detected Normal NOT DETECTED [facility] Comment on above: Performed By: #### C BC #### [facility] [address] [place] [address] Dr. Duy Gallegos Gala Tropicalis Not detected Normal NOT DETECTED [facility] Comment on above: Performed By: #### C BC #### [facility] [address] [place] [address] Dr. Duy Gallegos CTX-M Resistant Gene Not Applicable Normal NOT DETECTED [facility] Comment on above: Performed By: #### C BC #### [facility] [address] [place] [address] Dr. Duy Gallegos E. Cloacae complex Not detected Normal NOT DETECTED [facility] Comment on above: Performed By: #### C BC #### [facility] [address] [place] [address] Dr. Duy Gallegos E. faecalis Not detected Normal NOT DETECTED [facility] Comment on above: Performed By: #### C BC #### [facility] [address] [place] [address] Dr. Duy Gallegos E. faecium Not detected Normal NOT DETECTED [facility] Comment on above: Performed By: #### C BC #### [facility] [address] [place] [address] Dr. Duy Gallegos Enterobacteriaceae Not detected Normal NOT DETECTED [facility] Comment on above: Performed By: #### C BC #### [facility] [address] [place] [address] Dr. Duy Gallegos Escherichia coli Not detected Normal NOT DETECTED [facility] Comment on above: Performed By: #### C BC #### [facility] [address] [place] [address] Dr. Duy Gallegos H. influenzae Not detected Normal NOT DETECTED [facility] Comment on above: Performed By: #### C BC #### [facility] [address] [place] [address] Dr. Duy Gallegos IMP Resistant Gene Not Applicable Normal NOT DETECTED [facility] Comment on above: Performed By: #### C BC #### [facility] [address] [place] [address] Dr. Duy Gallegos K. oxytoca Not detected Normal NOT DETECTED [facility] Comment on above: Performed By: #### C BC #### [facility] [address] [place] [address] Dr. Duy Gallegos K. pneumoniae Not detected Normal NOT DETECTED [facility] Comment on above: Performed By: #### C BC #### [facility] [address] [place] [address] Dr. Duy Gallegos Klebsiella aerogenes Not detected Normal NOT DETECTED [facility] Comment on above: Performed By: #### C BC #### [facility] [address] [place] [address] Dr. Duy Gallegos KPC Resistant Gene Not Applicable Normal NOT DETECTED [facility] Comment on above: Performed By: #### C BC #### [facility] [address] [place] [address] Dr. Duy Gallegos List. monocytogenes Not detected Normal NOT DETECTED [facility] Comment on above: Performed By: #### C BC #### [facility] [address] [place] [address] Dr. Duy Gallegos Mcr-1 Resistant Gene Not Applicable Normal NOT DETECTED [facility] Comment on above: Performed By: #### C BC #### [facility] [address] [place] [address] Dr. Duy Gallegos mecA/C Not Applicable Normal NOT DETECTED [facility] Comment on above: Performed By: #### C BC #### [facility] [address] [place] [address] Dr. Duy Gallegos mecA/C MREJ Not Applicable Normal NOT DETECTED [facility] Comment on above: Performed By: #### C BC #### [facility] [address] [place] [address] Dr. Duy Gallegos N. meningitidis Not detected Normal NOT DETECTED [facility] Comment on above: Performed By: #### C BC #### [facility] [address] [place] [address] Dr. Duy Gallegos NDM Resistant Gene Not Applicable Normal NOT DETECTED [facility] Comment on above: Performed By: #### C BC #### [facility] [address] [place] [address] Dr. Duy Gallegos Oxa-48-like Not Applicable Normal NOT DETECTED [facility] Comment on above: Performed By: #### C BC #### [facility] [address] [place] [address] Dr. Duy Gallegos Proteus Not detected Normal NOT DETECTED [facility] Comment on above: Performed By: #### C BC #### [facility] [address] [place] [address] Dr. Duy Gallegos Pseud. aeruginosa Not detected Normal NOT DETECTED [facility] Comment on above: Performed By: #### C BC #### [facility] [address] [place] [address] Dr. Duy Gallegos S. maltophilia Not detected Normal NOT DETECTED [facility] Comment on above: Performed By: #### C BC #### [facility] [address] [place] [address] Dr. Duy Gallegos Salmonella Not detected Normal NOT DETECTED [facility] Comment on above: Performed By: #### C BC #### [facility] [address] [place] [address] Dr. Duy Gallegos Seratia marcescens Not detected Normal NOT DETECTED [facility] Comment on above: Performed By: #### C BC #### [facility] [address] [place] [address] Dr. Duy Gallegos Site: L a/c Normal [facility] Comment on above: Performed By: #### C BC #### [facility] [address] [place] [address] Dr. Duy Gallegos Staph. aureus Not detected Normal NOT DETECTED [facility] Comment on above: Performed By: #### C BC #### [facility] [address] [place] [address] Dr. Duy Gallegos Staph. epidermidis Not detected Normal NOT DETECTED [facility] Comment on above: Performed By: #### C BC #### [facility] [address] [place] [address] Dr. Duy Gallegos Staph. lugdunensis Not detected Normal NOT DETECTED [facility] Comment on above: Performed By: #### C BC #### [facility] [address] [place] [address] Dr. Duy Gallegos Staphylococcus Detected Critically abnormal NOT DETECTED [facility] Comment on above: Performed By: #### C BC #### [facility] [address] [place] [address] Dr. Duy Gallegos Strep. agalactiae Not detected Normal NOT DETECTED [facility] Comment on above: Performed By: #### C BC #### [facility] [address] [place] [address] Dr. Duy Gallegos Strep. pneumoniae Not detected Normal NOT DETECTED [facility] Comment on above: Performed By: #### C BC #### [facility] [address] [place] [address] Dr. Duy Gallegos Strep. pyogenes Not detected Normal NOT DETECTED [facility] Comment on above: Performed By: #### C BC #### [facility] [address] [place] [address] Dr. Duy Gallegos Streptococcus Not detected Normal NOT DETECTED [facility] Comment on above: Performed By: #### C BC #### [facility] [address] [place] [address] Dr. Duy Gallegos Cullen/B Resist. Gene Not Applicable Normal NOT DETECTED [facility] Comment on above: Performed By: #### C BC #### [facility] [address] [place] [address] Dr. Duy Gallegos VIM Resistant Gene Not Applicable Normal NOT DETECTED [facility] Comment on above: Performed By: #### C BC #### [facility] [address] [place] [address] Dr. Duy Galleg[facility] 02 MODE NASAL CANNULA Normal [facility] Comment on above: Performed By: #### C BC #### [facility] [address] [place] [address] Dr. Duy Gallegos ALLENS TEST Positive [facility] Comment on above: Performed By: #### C BC #### [facility] [address] [place] [address] Dr. Duy Gallegos Base excess Calc (Bld) [Moles/Vol] -1.3000 mmol/L Normal -2.0-2.0 [facility] Comment on above: Performed By: #### C BC #### [facility] [address] [place] [address] Dr. Duy Gallegos BIPAP PRESSURE Normal [facility] Comment on above: Performed By: #### C BC #### [facility] [address] [place] [address] Dr. Duy Gallegos CPAP [facility] Comment on above: Performed By: #### C BC #### [facility] [address] [place] [address] Dr. Duy Gallegos FIO2 Normal [facility] Comment on above: Performed By: #### C BC #### [facility] [address] [place] [address] Dr. Duy Gallegos HCO3 (Bld) [Moles/Vol] 24.5 mmol/L Normal 22.0-26.0 [facility] Comment on above: Performed By: #### C BC #### [facility] [address] [place] [address] Dr. Duy Gallegos LPM 2 Normal [facility] Comment on above: Performed By: #### C BC #### [facility] [address] [place] [address] Dr. Duy Gallegos MINUTE VOLUME Normal [facility] Comment on above: Performed By: #### C BC #### [facility] [address] [place] [address] Dr. Duy Gallegos Oxygen (Bld) [Partial pressure] 64.3 mm[Hg] Critically low 80.0-100.0 [facility] Comment on above: Performed By: #### C BC #### [facility] [address] [place] [address] Dr. Duy Gallegos Oxygen saturation in Blood 92.0 % Critically low 95.0-100.0 [facility] Comment on above: Performed By: #### C BC #### [facility] [address] [place] [address] Dr. Duy Gallegos PCO2 45.3 mmHg Critically high 35.0-45.0 [facility] Comment on above: Performed By: #### C BC #### [facility] [address] [place] [address] Dr. Duy Gallegos PEEP [facility] Comment on above: Performed By: #### C BC #### [facility] [address] [place] [address] Dr. Duy Gallegos pH (Bld) 7.341 [pH] Critically low 7.350-7.450 [facility] Comment on above: Performed By: #### C BC #### [facility] [address] [place] [address] Dr. Duy Gallegos PIP Normal [facility] Comment on above: Performed By: #### C BC #### [facility] [address] [place] [address] Dr. Duy Gallegos [facility] Comment on above: Performed By: #### C BC #### [facility] [address] [place] [address] Dr. Duy Gallegos PUNCTURE SITE LR [facility] Comment on above: Performed By: #### C BC #### [facility] [address] [place] [address] Dr. Duy Gallegos [facility] Comment on above: Performed By: #### C BC #### [facility] [address] [place] [address] Dr. Duy Gallegos VENT MODE [facility] Comment on above: Performed By: #### C BC #### [facility] [address] [place] [address] Dr. Duy Gallegos [facility] Comment on above: Performed By: #### C BC #### [facility] [address] [place] [address] Dr. Duy Gallegos BNPon 08-26-2022 Natriuretic peptide B (Bld) [Mass/Vol] 2516.0 pg/mL Critically high <=900.0 [facility] Comment on above: Performed By: #### B MP #### [facility] [address] [place] [address] Dr. Duy Gallegos CBC AUTO DIFFon 08-26-2022 BASO # 0.1 103/ul Normal 0.0-0.1 [facility] Comment on above: Performed By: #### C BC #### [facility] [address] [place] [address] Dr. Duy Gallegos Basophils/100 WBC (Bld) 1.2 % Normal 0.2-2.0 [facility] Comment on above: Performed By: #### C BC #### [facility] [address] [place] [address] Dr. Duy Gallegos EO # 0.4 103/ul Normal 0.0-0.7 [facility] Comment on above: Performed By: #### C BC #### [facility] [address] [place] [address] Dr. Duy Gallegos Eosinophils/100 WBC (Bld) 4.6 % Normal 0.9-7.0 [facility] Comment on above: Performed By: #### C BC #### [facility] [address] [place] [address] Dr. Duy Gallegos Erythrocyte distribution width (RBC) [Ratio] 13.2 % Normal 11.0-15.0 [facility] Comment on above: Performed By: #### C BC #### [facility] [address] [place] [address] Dr. Duy Gallegos Hematocrit (Bld) [Volume fraction] 41.1 % Critically low 42.0-54.0 [facility] Comment on above: Performed By: #### C BC #### [facility] [address] [place] [address] Dr. Duy Gallegos Hemoglobin (Bld) [Mass/Vol] 13.8 g/dL Critically low 14.0-18.0 [facility] Comment on above: Performed By: #### C BC #### [facility] [address] [place] [address] Dr. Duy Gallegos IG # 0.03 10e3/ul Normal 0.00-0.03 [facility] Comment on above: Performed By: #### C BC #### [facility] [address] [place] [address] Dr. Duy Gallegos IG % 0.4 % Normal 0.0-0.5 [facility] Comment on above: Performed By: #### C BC #### [facility] [address] [place] [address] Dr. Duy Gallegos LYMPH # 2.9 103/ul Normal 1.2-3.8 [facility] Comment on above: Performed By: #### C BC #### [facility] [address] [place] [address] Dr. Duy Gallegos Lymphocytes/100 WBC (Bld) 35.3 % Normal 20.5-60.0 [facility] Comment on above: Performed By: #### C BC #### [facility] [address] [place] [address] Dr. Duy Gallegos MANUAL DIFF REQ NO Normal [facility] Comment on above: Performed By: #### C BC #### [facility] [address] [place] [address] Dr. Duy Gallegos MCH (RBC) [Entitic mass] 28.9 pg Normal 25.9-34.0 [facility] Comment on above: Performed By: #### C BC #### [facility] [address] [place] [address] Dr. Duy Gallegos MCHC (RBC) [Mass/Vol] 33.6 g/dL Normal 29.9-35.2 [facility] Comment on above: Performed By: #### C BC #### [facility] [address] [place] [address] Dr. Duy Gallegos MCV (RBC) [Entitic vol] 86.2 fL Normal 80.0-94.0 [facility] Comment on above: Performed By: #### C BC #### [facility] [address] [place] [address] Dr. Duy Gallegos MONO # 0.6 103/ul Normal 0.3-0.8 [facility] Comment on above: Performed By: #### C BC #### [facility] [address] [place] [address] Dr. Duy Gallegos Monocytes/100 WBC (Bld) 7.1 % Normal 1.7-12.0 [facility] Comment on above: Performed By: #### C BC #### [facility] [address] [place] [address] Dr. Duy Gallegos NEUT # 4.2 103/ul Normal 1.4-6.5 [facility] Comment on above: Performed By: #### C BC #### [facility] [address] [place] [address] Dr. Duy Gallegos Neutrophils/100 WBC (Bld) 51.4 % Normal 43.0-75.0 [facility] Comment on above: Performed By: #### C BC #### [facility] [address] [address] [address] Duy Gallegos Platelet mean volume (Bld) [Entitic vol] 10.1 fL Normal 9.5-13.5 [facility] Comment on above: Performed By: #### C BC #### [facility] [address] [address] [address] Duy Gallegos PLT 264 103/ul Normal 150-450 [facility] Comment on above: Performed By: #### C BC #### [facility] [address] [address] [address] Duy Gallegos RBC 4.77 106/ul Normal 4.70-6.10 [facility] Comment on above: Performed By: #### C BC #### [facility] [address] [place] [address] Dr. Duy Gallegos WBC 8.2 103/ul Normal 4.0-11.0 [facility] Comment on above: Performed By: #### C BC #### [facility] [address] [place] [address] Dr. Duy Gallegos CTA CHEST WO W [...] CODY WAY Date: 2022-08-26 20:19 Normal [facility] CULTURE BLOODon 08-26-2022 Microscopic examination of blood, culture Culture Observations: NO GROWTH AT 5 DAYS. Normal [facility] Comment on above: Performed By: #### B MP #### [facility] [address] [place] [address] Dr. Duy Gallegos [facility]on SARS-CoV-2 (COVID-19) RNA RICKY+probe Ql (Unsp spec) Not detected Normal NOT DETECTED [facility] Comment on above: Result Comment: When diagnostic [...] for this test is supported by the [place] [employer] and [employer]'s declaration that [...] used). Performed By: #### C BC #### [facility] [address] [place] [address] [address] Duy Gallegos D-DIMERon 08-26-2022 D-DIMER 1.10 mg/L FEU Critically high <=0.[address] [facility] Comment on above: Performed By: #### D DIM #### [facility] [address] [place] [address] [address] [address] Duy Gallegos D-DIMER COMMENTS SEE BELOW Normal [facility] Comment on above: Result Comment: Incr [...] hospitalization. Performed By: #### D DIM #### [facility] [address] [place] [address] Dr. Duy Gallegos INFLUENZA A AND B AGon 08-26 [facility] SEE BELOW Normal [facility] Comment on above: Result Comment: Nega tive for Flu A protein angiten. Infection due to Flu A cannot be ruled out. Flu A angiten in the sample may be below the detection limit of the test. Performed By: #### I NFLUAB #### [facility] [address] [place] [address] Dr. [facility] Normal [facility] Comment on above: Result Comment: Nega tive for Flu B protein antigen. Infection due to Flu B cannot be ruled out. Flu B antigen in the sample may be below the detection limit of the test. Performed By: #### I NFLUAB #### [facility] [address] [place] [address] Dr. Duy Gallegos INFLUENZA A AG Negative Normal NEGATIVE SEE COMMENT [facility] Comment on above: Performed By: #### I NFLUAB #### [facility] [address] [place] [address] Dr. Duy Gallegos INFLUENZA B AG Negative Normal NEGATIVE SEE COMMENT [facility] Comment on above: Performed By: #### I NFLUAB #### [facility] [address] [place] [address] Dr. Duy Gallegos LACTATE/LACTIC ACIDon 2022 Lactate [Moles/Vol] 1.8 mmol/L Normal 0.4-1.9 [facility] Comment on above: Performed By: #### L ACT #### [facility] [address] [place] [address] Dr. Duy Gallegos PROF 14(COMP METB)on 023 Albumin [Mass/Vol] 3.7 g/dL Normal 3.4-5.[address] [facility] Comment on above: Performed By: #### B AVIONICS SUPERVISOR, CMP, HSTROPN #### [facility] [address] [address] [address] Duy Gallegos Albumin/Globulin [Mass ratio] 1.0 {ratio} Normal [facility] Comment on above: Performed By: #### B AVIONICS SUPERVISOR, CMP, HSTROPN #### [facility] [address] [address] [address] Duy Gallegos ALP [Catalytic activity/Vol] 84 U/L Normal 46-116 [facility] Comment on above: Performed By: #### B AVIONICS SUPERVISOR, CMP, HSTROPN #### [facility] [address] [place] [address] Dr. Duy Gallegos ALT [Catalytic activity/Vol] 103 U/L Critically high 16-63 [facility] Comment on above: Performed By: #### B AVIONICS SUPERVISOR, CMP, HSTROPN #### [facility] [address] [place] [address] Dr. Duy Gallegos Anion gap [Moles/Vol] 15.5 mmol/L Normal [facility] Comment on above: Performed By: #### B AVIONICS SUPERVISOR, CMP, HSTROPN #### [facility] [address] [place] [address] Dr. Duy Gallegos AST [Catalytic activity/Vol] 62 U/L Critically high 15-37 [facility] Comment on above: Performed By: #### B AVIONICS SUPERVISOR, CMP, HSTROPN #### [facility] [address] [place] [address] Dr. Duy Gallegos Bilirubin [Mass/Vol] 0.3 mg/dL Normal 0.2-1.0 [facility] Comment on above: Performed By: #### B AVIONICS SUPERVISOR, CMP, HSTROPN #### [facility] [address] [address] [address] Duy Gallegos Calcium [Mass/Vol] 8.8 mg/dL Normal 8.5-10.[address] [facility] Comment on above: Performed By: #### B AVIONICS SUPERVISOR, CMP, HSTROPN #### [facility] [address] [address] [address] Duy Gallegos Chloride [Moles/Vol] 106 mmol/L Normal 98-107 [facility] Comment on above: Performed By: #### B AVIONICS SUPERVISOR, CMP, HSTROPN #### [facility] [address] [place] [address] Dr. Duy Gallegos CO2 [Moles/Vol] 25.9 mmol/L Normal 21.0-32.0 [facility] Comment on above: Performed By: #### B AVIONICS SUPERVISOR, CMP, HSTROPN #### [facility] [address] [address] [address] Duy Gallegos Creatinine [Mass/Vol] 1.32 mg/dL Critically high 0.70-1.30 [facility] Comment on above: Performed By: #### B AVIONICS SUPERVISOR, CMP, HSTROPN #### [facility] [address] [place] [address] Dr. Duy Gallegos EGFR-AF MAURITANIAN >60 Normal >=60 [facility] Comment on above: Performed By: #### B AVIONICS SUPERVISOR, CMP, HSTROPN #### [facility] [address] [place] [address] Dr. Duy Gallegos EGFR-NON AF MAURITANIAN 54 mL/min/1.73m2 Critically low >=60 [facility] Comment on above: Performed By: #### B AVIONICS SUPERVISOR, CMP, HSTROPN #### [facility] [address] [place] [address] Dr. Duy Gallegos Globulin (S) [Mass/Vol] 3.6 g/dL Normal [facility] Comment on above: Performed By: #### B AVIONICS SUPERVISOR, CMP, HSTROPN #### [facility] [address] [place] [address] Dr. Duy Gallegos Glucose [Mass/Vol] 146 mg/dL Critically high 74-106 T [facility] Comment on above: Performed By: #### B AVIONICS SUPERVISOR, CMP, HSTROPN #### [facility] [address] [place] [address] Dr. Duy Gallegos Potassium [Moles/Vol] 4.4 mmol/L Normal 3.5-5.1 [facility] Comment on above: Performed By: #### B AVIONICS SUPERVISOR, CMP, HSTROPN #### [facility] [address] [place] [address] Dr. Duy Gallegos Protein [Mass/Vol] 7.3 g/dL Normal 6.4-8.[address] [facility] Comment on above: Performed By: #### B AVIONICS SUPERVISOR, CMP, HSTROPN #### [facility] [address] [place] [address] Dr. Duy Gallegos Sodium [Moles/Vol] 143 mmol/L Normal 136-145 [facility] Comment on above: Performed By: #### B AVIONICS SUPERVISOR, CMP, HSTROPN #### [facility] [address] [place] [address] Dr. Duy Gallegos Urea nitrogen [Mass/Vol] 15.0 mg/dL Normal 7.0-18.0 [facility] Comment on above: Performed By: #### B AVIONICS SUPERVISOR, CMP, HSTROPN #### [facility] [address] [place] [address] Dr. Duy Gallegos Urea nitrogen/Creatinine [Mass ratio] 11.4 mg/mg Normal [facility] Comment on above: Performed By: #### B AVIONICS SUPERVISOR, CMP, HSTROPN #### [facility] [address] [place] [address] Dr. Duy Gallegos TROPONIN, HIGH SENSITIVITYon 08-26-2022 HSTROP 41.1 pg/mL Normal 4.0-76.1 [facility] Comment on above: Result Comment: CUT- OFF POINTS HAVE BEEN ESTABLISHED BASED ON THE FOURTH UNIVERSAL DEFINITIONS OF MYOCARDIAL INFARCTION. THE UPPER REFERENCE LIMIT (URL) OF TROPONIN, DEFINED THE 99TH PERCENTILE OF cTnI DISTRIBUTION IN A REFERENCE POPULATION, HAS BEEN CONFIRMED THE DECISION THRESHOLD FOR NE DIAGNOSIS. Performed By: #### B MP #### [facility] [address] [place] [address] Dr. Duy Gallegos CBC AUTO DIFFon 05-18-2022 BASO # 0.1 103/ul Normal 0.0-0.1 [facility] Comment on above: Performed By: #### C BC #### [facility] [address] [place] [address] Dr. Duy Gallegos Basophils/100 WBC (Bld) 1.5 % Normal 0.2-2.0 [facility] Comment on above: Performed By: #### C BC #### [facility] [address] [place] [address] Dr. Duy Gallegos EO # 0.3 103/ul Normal 0.0-0.7 [facility] Comment on above: Performed By: #### C BC #### [facility] [address] [place] [address] Dr. Duy Gallegos Eosinophils/100 WBC (Bld) 4.7 % Normal 0.9-7.0 [facility] Comment on above: Performed By: #### C BC #### [facility] [address] [place] [address] Dr. Duy Gallegos Erythrocyte distribution width (RBC) [Ratio] 12.8 % Normal 11.0-15.0 [facility] Comment on above: Performed By: #### C BC #### [facility] [place] [facility] [address] [place] [address] Dr. Duy Gallegos Hematocrit (Bld) [Volume fraction] 39.1 % Critically low 42.0-54.0 [facility] Comment on above: Performed By: #### C BC #### [facility] [place] [facility] [address] [place] [address] Dr. Duy Gallegos Hemoglobin (Bld) [Mass/Vol] 13.2 g/dL Critically low 14.0-18.0 [facility] Comment on above: Performed By: #### C BC #### [facility] [place] [facility] [address] [place] [address] Dr. Duy Gallegos IG # 0.03 10e3/ul Normal 0.00-0.03 [facility] Comment on above: Performed By: #### C BC #### [facility] [place] [facility] [address] [place] [address] Dr. Duy Gallegos IG % 0.5 % Normal 0.0-0.5 [facility] Comment on above: Performed By: #### C BC #### [facility] [place] [facility] [address] [place] [address] Dr. Duy Gallegos LYMPH # 1.4 103/ul Normal 1.2-3.8 [facility] Comment on above: Performed By: #### C BC #### [facility] [place] [facility] [address] [place] [address] Dr. Dyu Gallegos Lymphocytes/100 WBC (Bld) 23.8 % Normal 20.5-60.0 [facility] Comment on above: Performed By: #### C BC #### [facility] [place] [facility] [address] [place] [address] Dr. Duy Gallegos MANUAL DIFF REQ NO Normal [facility] Comment on above: Performed By: #### C BC #### [facility] [place] [facility] [address] [place] [address] Dr. Duy Gallegos MCH (RBC) [Entitic mass] 28.8 pg Normal 25.9-34.0 [facility] Comment on above: Performed By: #### C BC #### [facility] [place] [facility] [address] [place] [address] Dr. Duy Gallegos MCHC (RBC) [Mass/Vol] 33.8 g/dL Normal 29.9-35.2 [facility] Comment on above: Performed By: #### C BC #### [facility] [place] [facility] [address] [place] [address] Dr. Duy Gallegos MCV (RBC) [Entitic vol] 85.2 fL Normal 80.0-94.0 [facility] Comment on above: Performed By: #### C BC #### [facility] [place] [facility] [address] [place] [address] Dr. Duy Gallegos MONO # 0.5 103/ul Normal 0.3-0.8 [facility] [place] Comment on above: Performed By: #### C BC #### [facility] [address] [place] [address] Dr. Duy Gallegos Monocytes/100 WBC (Bld) 7.8 % Normal 1.7-12.0 [facility] Comment on above: Performed By: #### C BC #### [facility] [place] [facility] [address] [place] [address] Dr. Duy Gallegos NEUT # 3.7 103/ul Normal 1.4-6.5 [facility] Comment on above: Performed By: #### C BC #### [facility] [place] [facility] [address] [place] [address] Dr. Duy Gallegos Neutrophils/100 WBC (Bld) 61.7 % Normal 43.0-75.0 [facility] Comment on above: Performed By: #### C BC #### [facility] [address] [place] [address] Dr. Duy Gallegos Platelet mean volume (Bld) [Entitic vol] 9.6 fL Normal 9.5-13.5 [facility] Comment on above: Performed By: #### C BC #### [facility] [place] [facility] [address] [place] [address] Dr. Duy Gallegos PLT 199 103/ul Normal 150-450 [facility] Comment on above: Performed By: #### C BC #### [facility] [place] [facility] [address] [place] [address] Dr. Duy Gallegos RBC 4.59 106/ul Critically low 4.70-6.10 [facility] Comment on above: Performed By: #### C BC #### [facility] [place] [facility] [address] [place] [address] Dr. Duy Gallegos WBC 6.0 103/ul Normal 4.0-11.0 [facility] Comment on above: Performed By: #### C BC #### [facility] [place] [facility] [address] [place] [address] Dr. Duy Gallegos METHYLMALONIC ACID (MMA)on 0 03-03-2022 Methylmalonic Acid, Serum 232 nmol/L Normal 0-378 [facility] Comment on above: Performed By: #### M MA2 #### [facility] [place] [facility] [address] [place] [address] Dr. Duy Gallegos CBC AUTO DIFFon 02-25-2022 BASO # 0.1 103/ul Normal 0.0-0.1 [facility] Comment on above: Performed By: #### C BC #### [facility] [place] [facility] [address] [place] [address] Dr. Duy Gallegos Basophils/100 WBC (Bld) 1.3 % Normal 0.2-2.0 [facility] Comment on above: Performed By: #### C BC #### [facility] [place] [facility] [address] [place] [address] Dr. Duy Gallegos EO # 0.2 103/ul Normal 0.0-0.7 [facility] Comment on above: Performed By: #### C BC #### [facility] [place] [facility] [address] [place] [address] Dr. Duy Gallegos Eosinophils/100 WBC (Bld) 4.8 % Normal 0.9-7.0 [facility] Comment on above: Performed By: #### C BC #### [facility] [place] [facility] [address] [place] [address] Dr. Duy Gallegos Erythrocyte distribution width (RBC) [Ratio] 13.9 % Normal 11.0-15.0 [facility] Comment on above: Performed By: #### C BC #### [facility] [place] [facility] [address] [place] [address] Dr. Duy Gallegos Hematocrit (Bld) [Volume fraction] 36.2 % Critically low 42.0-54.0 [facility] Comment on above: Performed By: #### C BC #### [facility] [place] [facility] [address] [place] [address] Dr. Duy Gallegos Hemoglobin (Bld) [Mass/Vol] 12.2 g/dL Critically low 14.0-18.0 [facility] Comment on above: Performed By: #### C BC #### [facility] [address] [place] [address] Dr. Duy Gallegos IG # 0.01 10e3/ul Normal 0.00-0.03 [facility] Comment on above: Performed By: #### C BC #### [facility] [place] [facility] [address] [place] [address] Dr. Duy Gallegos IG % 0.2 % Normal 0.0-0.5 [facility] Comment on above: Performed By: #### C BC #### [facility] [place] [facility] [address] [place] [address] Dr. Duy Gallegos LYMPH # 1.3 103/ul Normal 1.2-3.8 [facility] Comment on above: Performed By: #### C BC #### [facility] [place] [facility] [address] [place] [address] Dr. Duy Gallegos Lymphocytes/100 WBC (Bld) 29.3 % Normal 20.5-60.0 [facility] Comment on above: Performed By: #### C BC #### [facility] [address] [place] [address] Dr. Duy Gallegos MANUAL DIFF REQ NO Normal [facility] Comment on above: Performed By: #### C BC #### [facility] [address] [place] [address] Dr. Duy Gallegos MCH (RBC) [Entitic mass] 29.5 pg Normal 25.9-34.0 [facility] Comment on above: Performed By: #### C BC #### [facility] [place] [facility] [address] [place] [address] Dr. Duy Gallegos MCHC (RBC) [Mass/Vol] 33.7 g/dL Normal 29.9-35.2 [facility] Comment on above: Performed By: #### C BC #### [facility] [place] [facility] [address] [place] [address] Dr. Duy Gallegos MCV (RBC) [Entitic vol] 87.7 fL Normal 80.0-94.0 [facility] Comment on above: Performed By: #### C BC #### [facility] [place] [facility] [address] [place] [address] Dr. Duy Gallegos MONO # 0.4 103/ul Normal 0.3-0.8 [facility] Comment on above: Performed By: #### C BC #### [facility] [address] [place] [address] Dr. Duy Gallegos Monocytes/100 WBC (Bld) 9.4 % Normal 1.7-12.0 [facility] Comment on above: Performed By: #### C BC #### [facility] [address] [place] [address] Dr. Duy Gallegos NEUT # 2.5 103/ul Normal 1.4-6.5 [facility] [place] Comment on above: Performed By: #### C BC #### [facility] [place] [facility] [address] [address] [address] Duy Gallegos Neutrophils/100 WBC (Bld) 55.0 % Normal 43.0-75.0 [facility] Comment on above: Performed By: #### C BC #### [facility] [address] [address] [address] Duy Gallegos Platelet mean volume (Bld) [Entitic vol] 9.4 fL Critically low 9.5-13.5 [facility] Comment on above: Performed By: #### C BC #### [facility] [place] [facility] [address] [address] [address] Duy Gallegos PLT 142 103/ul Critically low 150-450 [facility] Comment on above: Performed By: #### C BC #### [facility] [place] [facility] [address] [address] [address] Duy Gallegos RBC 4.13 106/ul Critically low 4.70-6.10 [facility] Comment on above: Performed By: #### C BC #### [facility] [place] [facility] [address] [address] [address] Duy Gallegos WBC 4.6 103/ul Normal 4.0-11.0 [facility] Comment on above: Performed By: #### C BC #### [facility] [place] [facility] [address] [address] [address] Duy Gallegos FERRITINon 02-25-2022 Ferritin [Mass/Vol] 274.0 ng/mL Normal 26.0-388.0 [facility] Comment on above: Performed By: #### C BC #### [facility] [place] [facility] [address] [address] [address] Duy Gallegos IRON AND TIBCon 02-25-2022 % SATURATION 33.8 % Normal [facility] [place] Comment on above: Performed By: #### C BC #### [facility] [place] [facility] [address] [address] [address] Duy Gallegos Iron [Mass/Vol] 97.0 ug/dL Normal 65.0-175.0 [facility] Comment on above: Performed By: #### C BC #### [facility] [place] [facility] [address] [place], [place] [address] Dr. Duy Gallegos TIBC DIRECT 287.0 ug/dL Normal 250.0-450.0 [facility] Comment on above: Performed By: #### C BC #### [facility] [place] [facility] [address] [place], [place] [address] Dr. Duy Gallegos VIT B12 AND FOLATEon 022 Cobalamin (Vitamin B12) [Mass/Vol] 817.0 pg/mL Normal 193.0-986.0 [facility] Comment on above: Performed By: #### C BC #### [facility] [place] [facility] [address] [address] [address] Duy Gallegos FOLATE 16.90 ng/mL Normal 8.60-58.90 [facility] Comment on above: Performed By: #### C BC #### [facility] [place] [facility] [id number] Duy Gallegos XR CHEST 2 Von [...] ALEXA MCKENZIE Date: 2021-12-28 13:59 Normal [facility] [place] COVID Quick Testingon 2021 Result Negative [facility] Other Quick Fluon 08-07-2021 FLUAV Ab CF (S) [Titer] Negative [employer] Other FLUBV Ab CF (S) [Titer] Negative [employer] Other COVID Quick Testingon 2020 Result Positive [employer] Other Vital Signs Date Time Vital Sign Value Performing Clinician Facility 11-29-2024 10:11-0400 Body height 177.8 cm [facility] 11-29-2024 10:11-0400 Body mass index (BMI) [Ratio] 33.7 kg/m2 [facility] 11-29-2024 10:11-0400 Body weight 106.76 kg [facility] 11-29-2024 10:11-0400 Diastolic blood pressure 60 mm[Hg] [facility] 11-29-2024 10:11-0400 Heart rate 58 /min [facility] 11-29-2024 10:11-0400 Respiratory rate 12 /min [facility] 11-29-2024 10:11-0400 Systolic blood pressure 120 mm[Hg] [facility] 02-29-2024 09:55-0400 Body height 177.8 cm [facility] 02-29-2024 09:55-0400 Body mass index (BMI) [Ratio] 33.7 kg/m2 [facility] 02-29-2024 09:55-0400 Body weight 106.65 kg [facility] 02-29-2024 09:55-0400 Diastolic blood pressure 65 mm[Hg] [facility] 02-29-2024 09:55-0400 Heart rate 67 /min [facility] 02-29-2024 09:55-0400 Respiratory rate 12 /min [facility] 02-29-2024 09:55-0400 Systolic blood pressure 151 mm[Hg] [facility] 12-25-2023 07:50-0400 Diastolic blood pressure 66 mm[Hg] Meghan Lue [facility] 12-25-2023 07:50-0400 Heart rate 57 /min Meghan Lue [facility] 12-25-2023 07:50-0400 Mean blood pressure 91 mm[Hg] Meghan Lue [facility] 12-25-2023 07:50-0400 Systolic blood pressure 143 mm[Hg] Meghan Lue [facility] 12-25-2023 07:49-0400 Heart rate 62 /min Meghan Lue [facility] 12-25-2023 07:49-0400 SaO2% (BldA) [Mass fraction] 98 % Meghan Lue [facility] 12-25-2023 07:48-0400 Body temperature 98.06 [degF] Meghan Lue [facility] 12-25-2023 07:48-0400 Blood Pressure Location Meghan Lue [facility] 12-25-2023 07:48-0400 Diastolic blood pressure 61 mm[Hg] Meghan Lue [facility] 12-25-2023 07:48-0400 Mean blood pressure 95 mm[Hg] Meghan Lue [facility] 12-25-2023 07:48-0400 Systolic blood pressure 164 mm[Hg] Meghan Lue [facility] 12-25-2023 07:48-0400 Respiratory rate 16 /min Meghan Lue [facility] 11-29-2023 10:55-0400 Blood Pressure Location Meghan [...] [facility] 11-28-2023 08:42-0400 Body height 177.8 cm [facility] 11-28-2023 08:42-0400 Body mass index (BMI) [Ratio] 33.2 kg/m2 [facility] 11-28-2023 08:42-0400 Body weight 105 kg [facility] 11-28-2023 08:42-0400 Diastolic blood pressure 80 mm[Hg] [facility] 11-28-2023 08:42-0400 Heart rate 64 /min [facility] 11-28-2023 08:42-0400 Respiratory rate 12 /min [facility] 11-28-2023 08:42-0400 Systolic blood pressure 188 mm[Hg] [facility] 06-16-2023 10:00-0500 Diastolic blood pressure 92 mm[Hg] Meghan Lue [facility] 06-16-2023 10:00-0500 Mean blood pressure 115 mm[Hg] Meghan Lue [facility] 06-16-2023 10:00-0500 Systolic blood pressure 162 mm[Hg] Meghan Lue [facility] 06-16-2023 09:44-0500 Blood Pressure Location Meghan Lue [facility] 06-16-2023 09:44-0500 Body temperature 97.16 [degF] Meghan Lue [facility] 06-16-2023 09:44-0500 Diastolic blood pressure 88 mm[Hg] Meghan Lue [facility] 06-16-2023 09:44-0500 Heart rate 78 /min Meghan Lue [facility] 06-16-2023 09:44-0500 Systolic blood pressure 144 mm[Hg] Meghan Lue [facility] 06-06-2023 17:10-0500 Diastolic blood pressure 70 mm[Hg] Meghan Lue [facility] 06-06-2023 17:10-0500 Heart rate 60 /min Meghan Lue [facility] 06-06-2023 17:10-0500 Respiratory rate 16 /min Meghan Lue [facility] 06-06-2023 17:10-0500 SaO2% (BldA) [Mass fraction] 100 % Meghan Lue [facility] 06-06-2023 17:10-0500 Systolic blood pressure 120 mm[Hg] Meghan Lue [facility] 06-06-2023 17:02-0500 Heart rate 62 /min Meghan Lue [facility] 06-06-2023 17:02-0500 SaO2% (BldA) [Mass fraction] 100 % Meghan Lue [facility] 06-06-2023 17:02-0500 Respiratory rate 16 /min Meghan Lue [facility] 06-06-2023 16:52-0500 Diastolic blood pressure 56 mm[Hg] Meghan Lue [facility] 06-06-2023 16:52-0500 Heart rate 60 /min Meghan Lue [facility] 06-06-2023 16:52-0500 SaO2% (BldA) [Mass fraction] 97 % Meghan Lue [facility] 06-06-2023 16:52-0500 Systolic blood pressure 89 mm[Hg] Meghan Lue [facility] 06-06-2023 16:29-0500 Diastolic blood pressure 89 mm[Hg] Meghan Lue [facility] 06-06-2023 16:29-0500 Systolic blood pressure 154 mm[Hg] Meghan Lue [facility] 06-06-2023 14:00-0500 Blood Pressure Location Meghan Lue [facility] 06-06-2023 14:00-0500 Mean blood pressure 84 mm[Hg] Meghan Lue [facility] 06-06-2023 14:00-0500 Respiratory rate 18 /min Meghan Lue [facility] 05-10-2023 10:54-0500 Blood Pressure Location Meghan [...] [facility] 04-11-2023 11:40-0400 Blood Pressure Location THERESA FLAKO [facility] 04-11-2023 11:40-0400 Diastolic blood pressure 75 mm[Hg] THERESA FLAKO [facility] 04-11-2023 11:40-0400 Heart rate 68 /min THERESA FLAKO [facility] 04-11-2023 11:40-0400 Respiratory rate 16 /min THERESA FLAKO [facility] 04-11-2023 11:40-0400 Systolic blood pressure 134 mm[Hg] THERESA FLAKO [facility] 12-20-2022 10:11-0400 Blood Pressure Location THERESA FLAKO [facility] 12-20-2022 10:11-0400 Diastolic blood pressure 80 mm[Hg] THERESA FLAKO [facility] 12-20-2022 10:11-0400 Heart rate 70 /min THERESA FLAKO [facility] 12-20-2022 10:11-0400 Respiratory rate 16 /min THERESA FLAKO [facility] 12-20-2022 10:11-0400 Systolic blood pressure 140 mm[Hg] THERESA FLAKO [facility] 11-23-2022 08:30-0400 Body height 177.8 cm Gio Ball Other [employer] Other 11-23-2022 08:30-0400 Body mass index (BMI) [Ratio] 32.42 kg/m2 Gio Ball Other [facility] Other 11-23-2022 08:30-0400 Body weight 102.51 kg Gio Ball Other [facility] Other 11-23-2022 08:30-0400 Diastolic blood pressure 69 mm[Hg] Gio Ball Other [employer] Other 11-23-2022 08:30-0400 Respiratory rate 12 /min Gio Ball Other [employer] Other 11-23-2022 08:30-0400 Systolic blood pressure 162 mm[Hg] Gio Ball Other [employer] Other 08-31-2022 10:00-0500 Body height 177.8 cm Gio Ball Other [employer] Other 08-31-2022 10:00-0500 Body mass index (BMI) [Ratio] 33.43 kg/m2 Gio Ball Other [employer] Other 08-31-2022 10:00-0500 Body weight 105.69 kg Gio Ball Other [employer] Other 08-31-2022 10:00-0500 Diastolic blood pressure 80 mm[Hg] Gio Ball Other [employer] Other 08-31-2022 10:00-0500 Respiratory rate 16 /min Gio Ball Other [employer] Other 08-31-2022 10:00-0500 SaO2% (BldA) [Mass fraction] 98 % Gio Jasso Other [facility] Other 08-31-2022 10:00-0500 Systolic blood pressure 132 mm[Hg] Gio Jasso Other [facility] Other 10-26-2021 09:11-0400 Blood Pressure Location Daniel Kern Jr. [facility] 10-26-2021 09:11-0400 Diastolic blood pressure 77 mm[Hg] Daniel Kern Jr. [facility] 10-26-2021 09:11-0400 Heart rate 78 /min Daniel Kern Jr. [facility] 10-26-2021 09:11-0400 Respiratory rate 16 /min Daniel Kern Jr. [facility] 10-26-2021 09:11-0400 Systolic blood pressure 181 mm[Hg] Daniel Kern Jr. [facility] 08-07-2021 11:00-0500 Body height 177.8 cm Gina Starks Other [facility] Other 08-07-2021 11:00-0500 Body mass index (BMI) [Ratio] 30.13 kg/m2 Gina Starks Other [employer] Other 08-07-2021 11:00-0500 Body temperature 101 [degF] Gina Starks Other [employer] Other 08-07-2021 11:00-0500 Body weight 95.26 kg Gina Starks Other [employer] Other 08-07-2021 11:00-0500 Respiratory rate 18 /min Gina Starks Other [employer] Other 08-07-2021 11:00-0500 SaO2% (BldA) [Mass fraction] 97 % Gina Starks Other [employer] Other 05-24-2021 18:15-0500 Body height 177.8 cm Sybil Rosa Other [employer] Other 05-24-2021 18:15-0500 Body mass index (BMI) [Ratio] 30.85 kg/m2 Sybil Rosa Other [employer] Other 05-24-2021 18:15-0500 Body temperature 96.9 [degF] Sybil Rosa Other [employer] Other 05-24-2021 18:15-0500 Body weight 97.52 kg Sybil Lee Other [employer] Other 05-24-2021 18:15-0500 SaO2% (BldA) [Mass fraction] 91 % Sybil Lee Other [employer] Other Encounters Encounter Date Encounter Type Care Provider Facility Start: 10-15-2025 ambulatory Meghan Brito [facility] Start: 03-07-2025 End: 03-07-2025 ambulatory [facility] Start: 11-29-2024 End: 11-29-2024 ambulatory [facility] Work Phone: Start: 11-29-2024 End: 11-29-2024 Patient encounter procedure [facility] Work Phone: Start: 10-23-2024 End: 10-23-2024 ambulatory Meghan M. Lue Facility[facility] Start: 10-23-2024 End: 10-23-2024 Patient encounter procedure Meghan Zafare [facility] Start: 10-21-2024 End: 10-21-2024 ambulatory Ghanshyam Eleazar Quezada Facility:[facility] Start: 10-21-2024 End: 10-21-2024 Patient encounter procedure Ghanshyam Quezada [facility] Start: 10-17-2024 Non-patient / Non-visit [facility] Work Phone: Start: 10-16-2024 ambulatory Meghan M. Lue Facility[facility] Start: 10-10-2024 End: 10-10-2024 ambulatory Meghan M. Lue Facility:[facility] Start: 10-04-2024 Non-patient / Non-visit [facility] Work Phone: Start: 10-03-2024 ambulatory Meghan M. Lue Facility[facility] Start: 09-04-2024 End: 09-04-2024 ambulatory [facility] Start: 03-29-2024 End: 03-29-2024 ambulatory Meghan M. Lue Facility:[facility] Start: 03-29-2024 End: 03-29-2024 Patient encounter procedure Meghan M. Lue [facility] Start: 03-06-2024 Non-patient / Non-visit DO Heath Jasso Work Phone: [facility] Work Phone: Start: 03-06-2024 End: 03-06-2024 ambulatory DO Gio Jasso Work Phone: [facility] Work Phone: Start: 03-06-2024 End: 03-06-2024 Departed Referred DO Gio Jasso Work Phone: [facility] Start: 03-06-2024 End: 03-06-2024 ambulatory Meghan Brito Facility:[id number] Start: 03-06-2024 End: 03-06-2024 Off-Site Meghan Brito [facility] Start: 03-05-2024 Non-patient / Non-visit DO Heath Jasso Work Phone: [facility] Work Phone: Start: 02-29-2024 End: 02-29-2024 ambulatory [facility] Work Phone: Start: 02-29-2024 End: 02-29-2024 Patient encounter procedure [facility] Work Phone: Start: 02-22-2024 Non-patient / Non-visit [facility] Work Phone: Start: 01-12-2024 ambulatory Meghan Brito Facility:[facility] Start: 12-25-2023 ambulatory Meghan Brito Facility:[facility] Start: 12-25-2023 End: 12-25-2023 Patient encounter procedure Meghan Brito [facility] Start: 11-29-2023 End: 01-03-2024 Pre-admission assessment Meghan Brito [facility] Start: 11-29-2023 End: 11-29-2023 ambulatory Meghan Brito Facility:[facility] Start: 11-29-2023 End: 11-29-2023 Patient encounter procedure Meghan Brito [facility] Start: 11-28-2023 End: 11-28-2023 ambulatory [facility] Work Phone: Start: 11-28-2023 End: 11-28-2023 Encounter for general adult medical examination without abnormal findings [facility] Start: 11-28-2023 End: 11-28-2023 Patient encounter procedure [facility]ician [facility] Work Phone: Start: 11-24-2023 Non-patient / Non-visit [facility]ician [facility] [employer] Work Phone: Start: 07-31-2023 End: 07-31-2023 Patient encounter procedure Meghan Brito [facility] Start: 06-30-2023 End: 06-30-2023 Lab Drop off Meghan Brito [facility] Start: 06-30-2023 End: 06-30-2023 Patient encounter procedure Meghan Brito [facility] Start: 06-22-2023 End: 06-22-2023 ambulatory Gio Jasso Other [facility] Other Start: 06-22-2023 Telephone encounter Gio Jasso [facility] Start: 06-21-2023 End: 06-21-2023 ambulatory Gio Jasso Other [facility] Other Start: 06-21-2023 Telephone encounter Gio Jasso [facility] Start: 06-21-2023 End: 06-21-2023 Patient encounter procedure Meghan Brito [facility] Start: 06-20-2023 End: 06-20-2023 ambulatory Gio Jasso Other [facility] Other Start: 06-20-2023 Telephone encounter Gio Jasso [facility] Start: 06-18-2023 End: 06-18-2023 ambulatory Gio Jasso Other [facility] Other Start: 06-18-2023 Telephone encounter Gio Jasso [facility] Start: 06-16-2023 End: 06-16-2023 Patient encounter procedure Meghan Brito [facility] Start: 06-15-2023 End: 06-15-2023 Patient encounter procedure Meghan Brito [facility] Start: 06-14-2023 End: 06-14-2023 Patient encounter procedure Meghan Zafare [facility] Start: 06-06-2023 End: 06-07-2023 ambulatory DUY GALLEGOS MD Facility:[id number] Start: 06-06-2023 End: 06-06-2023 Admission to same day surgery center Meghan Brito [facility] Start: 06-05-2023 End: 06-05-2023 ambulatory Gio Jasso Other [facility] Other Start: 06-05-2023 Telephone encounter Gio Jasso [facility] Start: 05-10-2023 End: 05-10-2023 Patient encounter procedure Meghan BernsteinReinier Daryl [facility] Start: 04-27-2023 End: 04-27-2023 ambulatory Gio Jasso Other [facility] Other Start: 04-27-2023 Telephone encounter Gio Jasso [facility] Start: 04-11-2023 End: 04-11-2023 Patient encounter procedure THERESA ARRIOLA [facility] Start: 04-04-2023 End: 04-04-2023 ambulatory Gio Jasso Other [facility] Other Start: 04-04-2023 Telephone encounter Gio Jasso [facility] Start: 04-03-2023 End: 04-03-2023 Patient encounter procedure DO Gio Jasso Work Phone: [facility] [place] Work Phone: Start: 04-03-2023 End: 04-03-2023 ambulatory DO Gio Jasso Work Phone: [facility] Work Phone: Start: 12-20-2022 End: 12-20-2022 Patient encounter procedure THERESA ARRIOLA [facility] Start: 12-13-2022 End: 12-13-2022 ambulatory Gio Jasso Other [facility] Other Start: 12-13-2022 Telephone encounter Gio Jasso [facility] Start: 12-12-2022 End: 12-12-2022 ambulatory Gio Jasso Other [facility] Other Start: 12-12-2022 Telephone encounter Gio Mao [facility] Start: 11-23-2022 End: 11-23-2022 ambulatory Gio Jasso Other [facility] Other Start: 11-23-2022 Encounter for genera l adult medical examination without abnormal findings Gio Jasso [facility] Start: 11-23-2022 Periodic preventive med est patient 65yrs& older Gio Jasso [facility] Start: 11-07-2022 End: 11-08-[address] GIO JASSO Facility:[facility] Start: 08-31-2022 End: 08-31-2022 ambulatory Gio Jasso Other [facility] Other Start: 08-31-2022 Office outpatient vi sit 25 minutes Gio Jasso [facility] Start: 08-26-2022 End: 08-28-2022 Evaluation and management of inpatient DR DARIUS GIANG . Facility:[facility] Start: 05-18-2022 End: 05-19-[address] GIO JASSO Facility:[facility] Start: 02-25-2022 End: 02-26-[address] GIO JASSO Facility:[facility] Start: 01-07-[address] GIO JASSO Facili ty:[facility] Start: 12-28-2021 End: 12-29-[address] GIO JASSO Facility:[facility] Start: 11-18-2021 Adult health examination Gio Jasso Other [facility] Other Start: 10-26-2021 End: 10-26-2021 Patient encounter procedure Daniel Kern Jr. [facility] Start: 08-07-2021 End: 08-07-2021 ambulatory Gina Starks Other [facility] Other Start: 08-07-2021 Office outpatient vi sit 15 minutes Gina Starks [facility] Start: 05-24-2021 End: 05-24-2021 ambulatory Sybil Rosa Other [facility] Other Start: 05-24-2021 Office outpatient vi sit 15 minutes Sybil Rosa [facility] Procedures Date Procedure Procedure Detail Performing Clinician Start: 07-27-2023 Cystoscopy Meghan Brito Start: 06-06-2023 Prostate biopsy samp le (specimen) Meghan Brito Start: 04-03-2023 MR [...] Date Care Activity Detail Author [facility] Immunizations Immunization Date Immunization Notes Care Provider Fa ciliriaz 05-29-2024 influenza, high dose seasonal, preservative-free [facility] 05-25-2023 influenza virus vaccine, unspecified formulation [facility] 05-25-2023 influenza, high dose seasonal, preservative-free Gio Jasso Other [facility] Other 05-25-2023 pneumococcal polysaccharide vaccine, 23 valent Gio Jasso Other [facility] 02-24-2022 influenza virus vaccine, unspecified formulation THERESA ARRIOLA [facility] 02-24-2022 influenza, high dose seasonal, preservative-free Gio Mao Other [facility] Other 11-18-2021 pneumococcal conjuga te vaccine, 13 valent Gio Jasso Other [facility] 09-01-2021 COVID-19 Vaccine Moderna - Documentation Purposes Only Gio Mao Other [facility] 06-26-2021 pneumococcal conjuga te vaccine, 13 valent Gio Jasso Other [facility] 09-02-2020 SARS-CoV-2 (COVID-19 ) Ad26 vaccine, recombinant Daniel Kern Jr. [facility] 05-03-2019 influenza virus vaccine, split virus (incl. purified surface antigen) Gio Jasso Other [facility] Other 05-03-2019 influenza virus vaccine, unspecified formulation [facility] 05-09-2018 influenza virus vaccine, split virus (incl. purified surface antigen) Gio Mao Other [facility] Other 05-09-2018 influenza virus vaccine, unspecified formulation [facility] Payers Date Payer Category Payer Medicare 2024 Unknown [id number] 2023 Unknown [id number] 2023 Medicare [id number] Self-pay 1959 Unknown [id number] 2.16. [id number] 1956 Unknown [id number] 2.16.84 0.1.779282.3.579.2.593 1956 Unknown [id number] 2.16.84 0.1.719647.3.579.2.593 1956 Unknown [id number] 2.16.84 0.1.874170.3.579.2.593 1956 Unknown [id number] 2.16.84 0.1.996164.3.579.2.593 1956 Unknown [id number] 2.16.84 0.1.520245.3.579.2.593 1956 Unknown [id number] 2.16.84 0.1.706061.3.579.2.593 1956 Unknown [id number] 2.16.8 40.1.866520.3.579.2.159 1956 Unknown [id number] 2.16.8 40.1.779672.3.579.2.727 1956 Unknown [id number] 2.16.8 40.1.297184.3.579.2.727 1956 Unknown [id number] 2.16.8 40.1.918432.3.579.2.727 1956 Unknown [id number] 2.16.8 40.1.538387.3.579.2.727 1956 Unknown [id number] 2.16.8 40.1.120739.3.579.2.727 1956 Unknown [id number] 2.16.8 40.1.573065.3.579.2.727 1956 Unknown [id number] 2.16.8 40.1.038507.3.579.2.727 1956 Unknown [id number] 2.16.8 40.1.217241.3.579.2.727 1956 Unknown [id number] 2.16.8 40.1.429825.3.579.2.727 1956 Unknown [id number] 2.16.8 40.1.263949.3.579.2.727 1956 Unknown [id number] 2.16.8 40.1.694711.3.579.2.727 Private Health Insurance Unknown [id number] 2.16.8 40.1.027157.3.579.2.531 Unknown [id number] 2.16.8 40.1.594170.3.579.2.531 Social History Date Type Detail Facility Start: 10-26-2021 Tobacco smoking status Heavy t obacco smoker (finding) [facility] Other Sex Assigned At Male [facility] Other Start: 12-20-2022 End: 05-10-2023 Tobacco smoking status Ex-smoker (finding) [facility] Start: 06-16-2023 End: 03-29-2024 Tobacco smoking status Never [facility] Start: 12-16-2020 [facility] Start: 1955 Sex Assigned At Male [facility] Tobacco quit 2 years ago Tobacco Use:. [facility] Tobacco smoking status [facility] Start: 01-29-2018 End: 11-29-2024 Sex Male (finding) [facility] Start: 11-29-2024 [facility] Current some day smoker [facility] Functional Status Date Assessment Result Facility 03-29-2024 Functional Status N/A [facility] 12-25-2023 Functional Status No [facility] 11-29-2023 Functional Status N/A [facility] 07-31-2023 Functional Status N/A [facility] 06-16-2023 Functional Status N/A [facility] 05-16-2023 Functional Status N/A [facility] 05-10-2023 Functional Status N/A [facility] 04-11-2023 Functional Status N/A [facility] 12-20-2022 Functional Status N/A [facility] Clinical Notes 05-24-2021 to 03-07-2025 Note Date & Type Note Facility 03-07-2025 Note [facility] Note Reason for cardiology visit: Follow-up dyspnea on exertion, aortic insufficiency, hypertension, and hyperlipidemia HPI: 03/07/2025 Patient is here today for follow-up visit. He states that he has been doing well. He works in his yard without any chest pain or shortness of breath. He still has some shortness of breath when he overexerts himself. He reports that his blood pressure at home ranges between 115-134/57-67. He denies orthopnea or paroxysmal nocturnal dyspnea. He denies any dizziness or palpitations. He admits occasional mild left lower extremity edema which is chronic. He denies any legs discomfort at rest or with exertion He tolerates his medications very well 09/04/2024 Patient is here today for follow-up [...] recently on amlodipine by PCP Cardiology ROS: All systems were reviewed and they were negative except for the positive findings noted above in the history Past Medical History He has a past [...] /3 mL (0.083 %) nebulizer solution, 2.5 mg. (Patient taking differently: 2.5 mg if needed.), Disp: , Rfl: amLODIPine (Norvasc) 10 mg tablet, Take 1 tablet (10 mg) by mouth once daily as directed., Disp: 90 tablet, Rfl: 3 carvedilol (Coreg) 6.25 mg tablet, Take 6.25 mg by mouth with breakfast and with evening meal., Disp: , Rfl: folic acid (Folvite) 1 mg tablet, Take 1 tablet by mouth in the morning., Disp: , Rfl: hydroCHLOROthiazide (HYDRODiuril) 25 mg tablet, Take 1 tablet (25 mg) by mouth in the morning. (Patient not taking: Reported on 03/07/2025), Disp: 30 tablet, Rfl: 11 lisinopril 40 mg tablet, Take 40 mg by mouth., Disp: , Rfl: rosuvastatin (Crestor) 20 mg tablet, Take 20 mg by mouth at bedtime., Disp: , Rfl: alfuzosin (Uroxatral) 10 mg 24 hr tablet, Take 10 mg by mouth. (Patient not taking: Reported on 03/07/2025), Disp: , Rfl: hydroCHLOROthiazide (Microzide) 12.5 mg capsule, Take 1 capsule (12.5 mg) by mouth in the morning., Disp: , Rfl: ipratropium-albuteroL (Duo-Neb) 0.5-2.5 mg/3 mL nebulizer solution, INHALE 3ml via NEBULIZER TWICE DAILY NEEDED (Patient not taking: Reported on 03/07/2025), Disp: , Rfl: Last Recorded Vitals Visit Vitals BP 128/62 (BP Location: Right arm, Patient Position: Sitting) Pulse 60 Ht 1.753 m (5' 9 ) Wt 107 kg (235 lb) SpO2 94% BMI 34.70 kg/m??? Smoking Status Former BSA 2.28 m??? Physical Examination: GENERAL: alert and oriented x3, well developed, in no acute distress. HEAD: atraumatic, normocephalic. EYES: SARAH, EOMI. NECK: trachea midline, no JVD present, no carotid bruits present. CARDIAC: S1, S2 present. RRR. Diastolic murmur 2/6 at the left lower sternal border RESPIRATORY: CTAB, no increased effort of breathing, no rales, rhonchi, or wheezing. ABDOMEN: soft, nontender, nondistended. EXTREMITIES: Trace edema of the left lower extremity. Varicose veins bilaterally. No rash/skin discoloration present. NEURO: strength/sensation equal and symmetric in bilateral upper and lower extremities. PSYCH: appropriate mood, affect, and judgement. Labs: Labs 01/10/2025 White blood count 8.3, hemoglobin 13.3, hematocrit 39.3, platelets 189 Sodium 144, potassium 4.4, BUN 28, creatinine 1.24, GFR 58, glucose 131, calcium 9.1 HbA1c 5.3% Total b (more content not included)... [facility] 10-10-2024 Note Patient Education Urology Benign Prostatic Hyperplasia [...] or symptoms? Symptoms of this condition include: ??? Getting up often during the night to urinate. ??? Needing to urinate frequently during the day. ??? Difficulty starting urine flow. ??? Decrease in size and strength of your urine stream. ??? Leaking (dribbling) after urinating. ??? Inability to pass urine. This needs immediate treatment. ??? Inability to completely empty your bladder. ??? Pain when you pass urine. This is more common if there is also an infection. ??? Urinary tract infection (UTI). How is this diagnosed? This condition is diagnosed based on your medical history, a physical exam, and your symptoms. Tests will also be done, such as: ??? A post-void bladder scan. This measures any amount of urine that may remain in your bladder after you finish urinating. ??? A digital rectal exam. In a rectal exam, your health care provider checks your prostate by putting a lubricated, gloved finger into your rectum to feel the back of your prostate gland. This exam detects the size of your gland and any abnormal lumps or growths. ??? An exam of your urine (urinalysis). ??? A prostate specific antigen (PSA) screening. This is a blood test used to screen for prostate cancer. ??? An ultrasound. This test uses sound waves [...] severity of your condition. Treatment may include: ??? Observation and yearly exams. This may be the only treatment needed if your condition and symptoms are mild. ??? Medicines to relieve your symptoms, including: ? Medicines to shrink the prostate. ? Medicines to relax the muscle of the prostate. ??? Surgery in severe cases. Surgery may include: [...] the urethra. Follow these instructions at home: ??? Take ryzm-gjq-wloizrz and prescription medicines only as told by your health care provider. ??? Monitor your symptoms for any changes. Contact your health care provider with any changes. ??? Avoid drinking large amounts of liquid before going to bed or out in public. ??? Avoid or reduce how much caffeine or alcohol you drink. ??? Give yourself time when you urinate. ??? Keep all follow-up visits. This is important. Contact a health care provider if: ??? You have unexplained back pain. ??? Your symptoms do not get (more content not included)... [facility] 09-04-2024 Note [facility] Note Reason [...] to COPD [facility] (more content not included)... [facility] 03-29-2024 Hospital Discharge instructions Patient Education [...] urethra. Follow these instructions at home: Take btdh-umn-gaxhsxq and prescription medicines only as told by [...] provider. Document Revised: 12/29/2021 Document Reviewed: 12/29/2021 [employer] Patient Education 2023 [employer]. Follow Up Care 03/07/2024 08:22:06 With:Daryl HAMILTON, Meghan Tucker, LOGAN, URO Address: [address] [place] [address]- [phone] When: Unknown Comments:6 mos [facility] Note Patient Education Urology Benign Prostatic [...] Follow these instructions at home: ? Take bwqp-jbx-efnwkya and prescription medicines only as told by [...] develop side effec (more content not included)... [facility] 12-13-2023 Note [id number] [facility] 11-29-2023 Hospital Discharge instructions Patient Education [...] Follow these instructions at home: Medicines Take bmvd-cos-cvnzvut and prescription medicines only as told by [...] to keep your urine pale yellow. Take durv-hhd-loelsqy or prescription medicines. Eat foods that are [...] provider. Document Revised: 03/08/2022 Document Reviewed: 03/08/2022 [employer] Patient Education 2022 [employer]. 11/29/2023 11:20:13 Transurethral Resection of the Prostate [...] including vitamins, herbs, eye drops, creams, and ujyb-jzj-fczerce medicines. Any problems you or family members [...] provider tells you to take them. Taking ndti-zfe-cbedpaz medicines, vitamins, herbs, and supplements. Surgery safety [...] provider. Document Revised: 03/08/2022 Document Reviewed: 03/08/2022 [employer] Patient Education 2022 [employer]. Follow Up Care 08/02/2023 09:34:46 With:Meghan Brito MD, URL, URO Address: [address], [place] [address]- [phone] When: Unknown [facility] 07-31-2023 Evaluation + Plan note Extrac rina from: Title: - Clinic HOPD Note Author:Meghan Brito MD Date:07/31/23 Impression and Plan Assessment and Plan: Diagnosis: BPH with urinary obstruction (PPQ86-QC N40.1, Discharge, Medical), Pelvic lymphadenopathy (JUQ17-XD R59.0, Working, Medical), Chronic prostatitis (IWX93-TL N41.1, Discharge, Medical), Feeling of incomplete bladder emptying (BSU36-WL R39.14, Discharge, Medical), Gross hematuria (ICD10- CM R31.0, Discharge, Medical). Assessment and Plan: Diagnosis: BPH with urinary obstruction (IJO85-AG N40.1, Discharge, Medical), Chronic prostatitis (VJM59-IW N41.1, Discharge, Medical), Feeling of incomplete bladder emptying (JRN43-PF R39.14, Discharge, Medical), Gross hematuria (FES20-UW R31.0, Discharge, Medical), Pelvic lymphadenopathy (XFQ71-CN R59.0, Working, Medical). 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 Gross hematuria - after [facility] CTU 07/05/23 at [facility] - neg for upper tract filling [...] in 4 to 5 months with [facility]02-05-2024 Hospital Discharge instructions Patient Education 07/31/2023 [...] including vitamins, herbs, eye drops, creams, and iwyj-frb-gsrwtdt medicines. Any problems you or family members [...] provider tells you to take them. ?Taking phkt-kdn-fpusvqv medicines, vitamins, herbs, and supplements. Follow your [...] provider. Document Revised: 09/08/2021 Document Reviewed: 09/08/2021 [employer] Patient Education 2022 [employer]. 07/31/2023 09:05:54 Transurethral Resection of the Prostate [...] including vitamins, herbs, eye drops, creams, and urfu-wzm-ykehaau medicines. Any problems you or family members [...] provider tells you to take them. Taking rigq-yml-qmrgatm medicines, vitamins, herbs, and supplements. Surgery safety [...] provider. Document Revised: 03/08/2022 Document Reviewed: 03/08/2022 [employer] Patient Education 2022 [employer]. 07/31/2023 09:05:54 [facility] - Cystoscopy Discharge Instructions [...] Up Care 06/30/2023 10:04:12 With:Meghan Brito Address: [facility] [address] [address]- [phone] Business (1) When: Unknown Comments:Office to schedule follow up in 3-4 months or call sooner for procedure (pt knows will be done by partner/referred out if during leave) [facility]12-28-2023 Evaluation note* Encounter Date Diagnosis Assessment Notes Treatment Notes Treatment Clinical Notes May, Simple chronic bronchitis (ICD-10 - J41.0) [facility] Other 12-27-2023 Evaluation note* Encounter Date Diagnosis Assessment Notes Treatment Notes Treatment Clinical Notes May, Simple chronic bronchitis (ICD-10 - J41.0) [facility] Other 12-26-2023 Evaluation note* Encounter Date Diagnosis Assessment Notes Treatment Notes Treatment Clinical Notes May, Simple chronic bronchitis (ICD-10 - J41.0) [facility] Other 12-22-2023 Hospital Discharge instructions Patient Education [...] treatment? Where to find more information [employer]: www.cancer.org [employer]: www.auanet.org Contact a health care [...] provider. Document Revised: 12/06/2021 Document Reviewed: 12/06/2021 [employer] Patient Education 2022 [employer]. Follow Up Care 06/16/2023 08:30:52 With:Meghan Brito MD, URL, URO Address: [address] [place] [phone] When: Unknown Comments:6 mos w/ CT and PSA [facility] 12-20-2023 Hospital Discharge instructions Follow Up Care 06/14/2023 08:28:10 With:Meghan Brito MD, LOGAN, URO Address: When: Unknown [facility] 12-12-2023 Hospital Discharge instructions Patient Education 06/06/2023 16:52:41 [facility] - Transrectal Ultrasound of the Prostate with US guided biopsy Discharge Instructions (CUSTOM) Transperineal?Biopsy of the Prostate Discharge Instructions After the procedure, it is common to have: Pain and discomfort near your rectum, especially while sitting. Acorn-colored urine due to small amounts of blood [...] Brito Address:Unknown When: Unknown Comments:Keep scheduled appointment [facility]12-12-2023 Evaluation + Plan noteExtracted from: Title:[facility] -transperineal prostate biopsy Author:Meghan Melgoza MD Date:06/06/23 Impression and Plan Diagnosis Elevated PSA (QAT95-JA R97.20, Discharge, Medical). Diagnosis Elevated PSA (FXI96-CC R97.20, Discharge, Medical). Future Appointments Appointment Date:06/14/2023 10:30:00 AM Scheduled Provider:Meghan Brito MD Location:[facility] Appointment Type:URO Office Visit [facility]11-15-2023 Hospital Discharge instructions Follow Up Care 05/10/2023 11:27:04 With:Meghan Brito MD, URL, URO Address: [address] [place] [address]- [phone] When: Unknown [facility] 11-15-2023 Hospital Discharge instructions Patient Education 05/10/2023 [...] treatment? Where to find more information [employer]: www.cancer.org [employer]: www.auanet.org Contact a health care [...] provider. Document Revised: 12/06/2021 Document Reviewed: 12/06/2021 [employer] Patient Education 2022 [employer]. 05/10/2023 11:11:23 Benign Prostatic Hyperplasia Benign Prostatic [...] urethra. Follow these instructions at home: Take cwyi-gaj-shqkhbs and prescription medicines only as told by [...] provider. Document Revised: 12/29/2021 Document Reviewed: 12/29/2021 [employer] Patient Education 2022 [employer]. Follow Up Care 04/12/2023 09:16:25 With:Daryl HAMILTON, LOGAN Villalpando, URO Address: When: Unknown Comments:Sched Transperineal Bx of Prostate [facility] 11-02-2023 Evaluation note* Encounter Date Diagnosis Assessment Notes Treatment Notes Treatment Clinical Notes Apr, Primary hypertension (ICD-10 - I10) [facility] Other 10-17-2023 Hospital Discharge instructions Patient Education [...] treatment? Where to find more information [employer]: www.cancer.org [employer]: www.auanet.org Contact a health care [...] provider. Document Revised: 12/06/2021 Document Reviewed: 12/06/2021 [employer] Patient Education 2022 [employer]. Follow Up Care 03/16/2023 16:12:09 With:THERESA ARRIOLA PA-C, URL Address: [address] [place] [address] [phone] When: Unknown Comments:f/u with MD in 1 month w/ PSA and Select MDX [facility] 10-10-2023 Evaluation note* Encounter Date Diagnosis Assessment Notes Treatment Notes Treatment Clinical Notes Mar, Primary hypertension (ICD-10 - I10) [facility] Other 06-27-2023 Hospital Discharge instructions Patient Education [...] treatment? Where to find more information [employer]: www.cancer.org [employer]: www.auanet.org Contact a health care [...] provider. Document Revised: 12/06/2021 Document Reviewed: 12/06/2021 [employer] Patient Education 2022 [employer]. Follow Up Care 10/03/2022 14:27:57 With:THERESA ARRIOLA PA-C, URL Address: [address] [place] [address] When: Unknown Comments:Sched Select MDX and MRI of Prostate. [facility] 06-20-2023 Evaluation note* Encounter Date Diagnosis Assessment Notes Treatment Notes Treatment Clinical Notes Nov, Cigarette nicotine dependence in remission (ICD-10 - F17.211) Started at age 19, quit age 66, 1ppd. LDCT w/o nodules - 11/2022 [facility] Other 06-19-2023 Evaluation note* Encounter Date Diagnosis Assessment Notes Treatment Notes Treatment Clinical Notes Nov, Simple chronic bronchitis (ICD-10 - J41.0) Nov, Cigarette nicotine dependence in remission (ICD-10 - F17.211) Started at age 19, quit age 66, 1ppd. LDCT w/o nodules - 11/2022 [facility] Other 05-31-2023 Evaluation note* Encounter Date Diagnosis [...] Z12.5) Yearly MARIZA and PSA, f/u Urology [facility] Other 03-08-2023 Evaluation note* Encounter Date Diagnosis [...] in remission (ICD-10 - F17.211) Continue abstinence [facility] Other 05-03-2022 Hospital Discharge instructions Patient Education [...] urethra. Follow these instructions at home: Take rokh-kot-ovysldb and prescription medicines only as told by [...] 06/12/2006 Document Revised: 05/07/2019 Document Reviewed: 07/17/2017 [employer] Patient Education 2019 GoodGuide Follow Up Care 10/22/2020 09:07:58 With:Erlin Alonso MD, Daniel Tse URO Address: [facility] [address], [place] [address]- When:10/26/2022 Comments:with PSA [facility] [...] Patient care instructions given in writting by [facility] Care At Home document [facility] Other 11-29-2021 Evaluation note* Encounter Date Diagnosis Assessment Notes Treatment Notes Treatment Clinical Notes Apr, Contact with and (suspected) exposure to other viral communicable diseases (ICD-10 - Z20.828) Apr, COVID-19 (ICD-10 - U07.1) Today you tested positive for the COVID virus. This mean you need to follow all CDC quarantine guidelines [facility] at [facility]. It is important to rest, [...] Patient care instructions given in writting by [facility] Care At Home document. [facility] Other Evaluation + Plan note Future Appointments Appointment Date:11/01/2022 08:15:00 AM Scheduled Provider:Erlin Alonso MD, Daniel Tse Location:[facility] Appointment Type:URO Office Visit Diagnostic Tests Pending * PSA Total 10/26/21 [facility] evaluation + Plan note Future Appointments Appointment Date:04/28/2023 08:15:00 AM Scheduled Provider:Daryl HAMILTON, Meghan Tucker Location:[facility] Appointment Type:URO Office Visit Diagnostic Tests Pending * PSA Total 04/11/23 [facility] evaluation + Plan note Future Appointments Appointment Date:06/06/2023 02:30:00 PM Scheduled Provider: Location:[facility] Appointment Type:Surgery FT Appointment Date:06/14/2023 10:30:00 AM Scheduled Provider:Meghan Brito MD Location:[facility] Appointment Type:URO Office Visit [facility] evaluation + Plan note Future Appointments Appointment Date:06/15/2023 03:30:00 PM Scheduled Provider:Meghan Brito MD Location:[facility] Appointment Type:URO Office Visit [facility] evaluation + Plan note Future Appointments Appointment Date:06/21/2023 08:45:00 AM Scheduled Provider:Meghan Brito MD Location:[facility] Appointment Type:URO Office Visit [facility] evaluation + Plan note Future Appointments Appointment Date:06/30/2023 09:15:00 AM Scheduled Provider: Location:[facility] Appointment Type:URO Nurse Visit Diagnostic Tests Pending * PSA Free & Total 06/16/23 [facility] Evaluation + Plan note Future Appointments Appointment Date:06/30/2023 09:15:00 AM Scheduled Provider: Location:[facility] Appointment Type:URO Nurse Visit [facility] evaluation + Plan note Future Appointments Appointment Date:07/31/2023 08:30:00 AM Scheduled Provider: Location:[facility] Appointment Type:Urology FT [facility] evaluation + Plan note Future Appointments Appointment Date:07/31/2023 08:30:00 AM Scheduled Provider: Location:[facility] Appointment Type:Urology FT Diagnostic Tests Pending * Urine Cytology ([facility]) [facility]ments Appointment Date:12/25/2023 07:30:00 AM Scheduled Provider: Location:[facility] Appointment Type:Surgical PAT FT Appointment Date:01/02/2024 08:00:00 AM Scheduled Provider: Location:[facility] Appointment Type:Surgery FT [facility] evaluation + Plan note Future Appointments Appointment Date:01/02/2024 08:00:00 AM Scheduled Provider: Location:[facility] Appointment Type:Surgery FT Appointment Date:01/12/2024 08:15:00 AM Scheduled Provider:Meghan Brito MD Location:[facility] Appointment Type:URO [facility] Appointments Appointment Date:10/03/2024 08:00:00 AM Scheduled Provider:Meghan Brito MD Location:[facility] Appointment Type:URO Office Visit [facility] Evaluation + Plan note Future Appointments Appointment Date:10/23/2024 08:00:00 AM Scheduled Provider: Location[facility] Appointment Type:CT Abdomen/Pelvis Combo (FT) Appointment Date:10/15/2025 10:00:00 AM Scheduled Provider:Meghan Brito MD Location:[facility] Appointment Type:URO Office Visit Future Scheduled Tests Radiology* CT Abdomen/Pelvis w/ + w/o Contrast 10/23/24 [facility] evaluation + Plan note Future Appointments Appointment Date:10/15/2025 10:00:00 AM Scheduled Provider:Meghan Brito MD Location:[facility] Appointment Type:URO Office Visit [facility] evaluation noteNo assessment information available [facility] Work Phone: Evaluation noteNo InformationNort Vision Critical Other Evaluation note* Diagnosis Onset Date Resolution Status Anemia acute Benign prostatic hyperplasia with lower urinary tract symptoms acute Chronic bronchitis acute Chronic kidney disease acute Elevated PSA acute Hypercholesterolemia acute Hypertension acute Nicotine addiction acute Screening PSA (prostate specific antigen) acute Welcome to Medicare preventive visit noneactive [facility] Work Phone: Evaluation note* Diagnosis Onset Date Resolution Status Acute gout acute Benign prostatic hyperplasia with lower urinary tract symptoms acute Hypertension acute [facility] Work Phone: Evaluation note* Diagnosis Onset Date Resolution Status Admit Date Anemia acute November 29, 2024 9:43am Aortic insufficiency acute November 29, 2024 9:43am Chronic bronchitis acute November 292024 9:43am Chronic kidney disease acute 2024 9:43am Elevated PSA acute November 29 9:43am Hypercholesterolemia acute November 29, 2024 9:43am Hypertension acute November 29 9:43am Nicotine addiction acute November 292024 9:43am Pulmonary hypertension acute 2024 9:43am Screening PSA (prostate spec ific antigen) acute November 29, 2024 9:43am Medicare annual wellness vis it, initial noneactive November 29, 2024 9:43am [facility] Work Phone: Hismghd general Narrative - Reported* Type Description Date Medical History high blood pressure Medical History high cholesterol [facility] Other Hiswqps general Narrative - Reported* Type Description Date [...] HERNIA 1989 Hospitalization History SEE SURGICAL HX [facility] Other history general Narrative - Reported* Type [...] HERNIA 1989 Hospitalization History SEE SURGICAL HX [facility] Other Hospital course Narrative No data available for this section [facility] Hospital Discharge instructions No data available for this section [facility] progress note No data available for this section [facility] Summary Purpose Family History No Family History [...] lower urinary tract symptoms Hypertension Chief Complaint Admit Date Wellness November 29, 2024 9:43a m Reason for Visit Admit Date Anemia November 29, 2024 9:43a m Aortic insufficiency November 29, 2024 9:43 am Chronic bronchitis November 29, 2024 9:43a m Chronic kidney disease November 29, 2024 9: 43am Elevated PSA November 29, 2024 9:43a m Hypercholesterolemia November 29, 2024 9:43 am Hypertension November 29, 2024 9:43a m Nicotine addiction November 29, 2024 9:43a m Pulmonary hypertension November 29, 2024 9: 43am Screening PSA (prostate specific antigen ) November 29, 2024 9:43am Medicare annual wellness visit, initial November 29, 2024 9:43am Additional Source Comments REASON FOR VISIT (unrecogniz [...] and content) DATE CREATED AUTHOR 11/08/[address] [facility] DATE CREATED AUTHOR AUTHOR'S ORGANIZ ATION 06/17/2023 [facility] DATE CREATED AUTHOR AUTHOR'S ORGANIZ ATION 12/25/2023 [facility] DATE CREATED AUTHOR AUTHOR'S ORGANIZ ATION 12/26/2023 [facility] DATE CREATED AUTHOR AUTHOR'S ORGANIZ ATION 03/17/2024 [facility] DATE CREATED AUTHOR AUTHOR'S ORGANIZ ATION 10/22/2024 [facility] DATE CREATED AUTHOR AUTHOR'S ORGANIZ ATION 10/30/2024 [facility] DATE CREATED AUTHOR AUTHOR'S ORGANIZ ATION 11/03/2024 [facility] DATE CREATED AUTHOR AUTHOR'S ORGANIZ ATION 12/29/2024 [facility] DATE CREATED AUTHOR AUTHOR'S ORGANIZ ATION 03/09/2025 [facility] Patient Care team informatio n (unrecognized section and content) Team Status: Active Member Role Status Dates Gio Jasso , DO Primary Care Provider Active Team Status: Active Member Role Status Dates Gio Jasso , DO Primary Care Provide r, Attending Provider Active Start: November 24, 2023 Team Status: Inactive Member Role Status Dates Gio Jasso , DO Primary Care Provide r, Attending Provider Active Start: November 28, 2023 End: November 28, 2023 Team Status: Inactive Member Role Status Dates Gio Jasso , DO Primary Care Provider Active Theresa Arriola PA-C Attending Provider Active Team Status: Active Member Role Status Dates Gio Jasso , DO Primary Care Provider Active Start: February 22, 2024 Meghan Brito MD Attending Provider Active Start : February 22, 2024 Team Status: Inactive Member Role Status Dates Gio Jasso , DO Primary Care Provide r, Attending Provider Active Start: February 29, 2024 End: February 29, 2024 Team Status: Active Member Role Status Dates Gio Jasso , DO Primary Care Provide r, Attending Provider Active Start: March 05, 2024 Team Status: Inactive Member Role Status Dates Gio Jasso , DO Primary Care Provider Active Start: March 06, 2024 End: March 06, 2024 Meghan Brito MD Attending Provider Active Start : March 06, 2024 End: March 06, 2024 Team Status: Active Member Role Status Dates Gio Jasso , DO Primary Care Provider Active Start: March 06, 2024 Meghan Brito MD Attending Provider Active Start : March 06, 2024 Team Status: Active Member Role Status Scotty Gio Jasso , DO Primary Care Provider Active Start: October 04, 2024 Glenna Lakhani MD Attending Provider Active Star t: October 04, 2024 Team Status: Active Member Role Status Scotty Jasso , DO Primary Care Provider Active Start: October 17, 2024 Glenna Lakhani MD Attending Provider Active Star t: October 17, 2024 Team Status: Inactive Member Role Status Dates Gio Jasso , DO Primary Care Provide r, Attending Provider Active Start: November 29, 2024 End: November 29, 2024 Goals (unrecognized section and content) [...] BE BASED ON THE PRIMARY CLINICAL RECORDS. [facility] [employer] [facility]. provides no warranty or guarantee of the accuracy or completeness of information in this document.
[2025-04-09 10:21] LABS: Anion Gap 16.9; Blood Urea Nitrogen 20.0 mg/dL (7.0-18.0); Calcium 9.3 mg/dL (8.5-10.1); Carbon Dioxide 25.3 mmol/L (21.0-32.0); Chloride 104 mmol/L (98-107); Estimated GFR (African America >60 (>=60 mL/min/1.73m^2); Estimated GFR (Non-African Ame 59 (>=60 mL/min/1.73m^2); Glucose 159 mg/dL (74-106); Potassium 4.2 mmol/L (3.5-5.1); Sodium 142 mmol/L (136-145)
[2025-04-09 10:23] LABS: Hematocrit 41.0 % (42.0-54.0); Hemoglobin 13.9 g/dL (14.0-18.0); Immature Granulocytes Abs Auto 0.02 10^3/uL (0.00-0.03); Immature Granulocytes Pct Auto 0.2 % (0.0-0.5); Lymphocytes Absolute Auto 1.7 10^3/uL (1.2-3.8); Mean Corpuscular HGB Conc 33.9 g/dL (29.9-35.2); Mean Corpuscular Hemoglobin 29.3 pg (25.9-34.0); Mean Corpuscular Volume 86.5 fL (80.0-94.0); Platelet Count 209 10^3/uL (150-450); Red Blood Count 4.74 10^6/uL (4.70-6.10); White Blood Count 8.1 10^3/uL (4.0-11.0)
[2025-04-09 10:37] LABS: Microalbum Creatinine Ratio Ur 68.0 mg/g (0.0-29.9)
[2025-04-09 11:05] LABS: Ferritin 259.0 ng/mL (26.0-388.0); Folate 28.10 ng/mL (8.60-58.90)
[2025-04-10 05:10] LABS: Vitamin B12 400 pg/mL (232-1245)
== END 2025-04-09 08:58 | disposition home or self-care (01) ==
LOC: LAB 09:00
PROVIDERS: PCP Internal Medicine; Visit Provider Internal Medicine
DX: D64.9 Anemia, unspecified (principal); E78.00 Pure hypercholesterolemia, unspecified; N18.31 Chronic kidney disease, stage 3a; I12.9 Hypertensive chronic kidney disease with stage 1 through stage 4 chronic kidney disease, or unspecified chronic kidney disease
CPT/HCPCS: 36415; 80048; 82043; 82570; 82607; 82728; 82746; 85025

== ENCOUNTER 2025-06-23 09:09 | Outpatient (OUT) | payer MEDICARE, SELFPAY ==
--- OUTSIDE RECORDS SUMMARY | 2025-06-23 09:11 | XMS_ITS | Clinical Summary ---
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
--- OUTSIDE RECORDS SUMMARY | 2025-06-23 09:11 | XMS_ITS | Patient Health Record ---
Author Organization [facility] [place] Address [address] [place] [address] Support Name Relationship Address Phone Juany Killian Emergency Contact Unknown [phone] Killian Guarantor Unknown [phone] Reason For Referral No Information Plan Of Treatment No Information Insurance Providers Payer Name Payer Address Payer Phone Subscriber Number Group Number Insured Name Patient Relationship to Insured Coverage Start Date Coverage End Date SELF PAY ON PATIENT DEMOGRAPHICS Ramiro Killian - patient is the jupeetl3311/14/2007
--- OUTSIDE RECORDS SUMMARY | 2025-06-23 09:11 | XMS_ITS | Clinical Summary ---
Author Organization [employer] [facility] tem Address [id number] [address] [place] [address] Care Team Providers Care Shoe Fitter Name Role Phone Gio Jasso Primary Care Provider [phone] Immunizations ImmunizationAdministration DatesNext DueCOVID-19 Vaccine, vector-nr, rS-Ad26, PF, 0.5mL09/02/2020 Social History Tobacco UseTypesPacks/DayYears UsedDateSmoking Tobacco: Never AssessedChildcare AnswerDate MnguazdzOexcueajbUzcyabd24/12/2019EmploymentAnswerDate Recorded ZyjxnxbzraCvandzz28/12/2019Purpose - LifeAnswerDate RecordedPurpose and direction in drpyFsmpkpn13/11/2021ex and Gender InformationValueDate Recorded Sex Assigned at BirthNot on fileLegal YmiQnmy6201/29/2015 11:26 AM EDTGender IdentityNot on fileSexual OrientationNot on file Plan of Treatment Health MaintenanceDue DateLast DoneCommentsDepression Ykmgavzau47/19/1968Tobacco Onkppuztp04/19/1968Adult BMI Gvgwhkiie30/19/1974DTaP,Tdap and Td Vaccines (1 - Tdap)1975Zoster (Shingles) Vaccine (1 of 2)2006Fall Risk Screening 2021OVID-19 Vaccine (2 - 2024- season)5009/02/2020Influenza Zygixhy5102/24/2025RSV ( or age 60+ yrs) (1 - 1-dose 75+ series)2031 [employer] Not on file Insurance [address] [id number] Care Teams Team MemberRelationshipSpecialtyStart DateEnd Date Gio Jasso DO PCP - GeneralInternal Medicine12/04/19
--- OUTSIDE RECORDS SUMMARY | 2025-06-23 09:11 | XMS_ITS | Clinical Summary ---
Author Organization [facility] Address [address] [place] [address] Care Team Providers Care Internet Site Designer Name Role Phone Gio Jasso DO Primary Care Provider [phone] Allergies Active AllergyReactionsCriticalityNoted DateCommentsCephalexin Monohydrate Shortness of emkqdrVazn61/08/2024enicillinsShortness of vjoppwOchm76/08/2024 Medications MedicationSigDispense QuantityRefillsLast FilledStart DateEnd DateStatus albuterol 2.5 mg /3 mL (0.083 %) nebulizer solution 2.5 mg.12/25/2023ctive alfuzosin (Uroxatral) 10 mg 24 hr tablet Take 10 mg by mouth.07/28/2023ctive carvedilol (Coreg) 6.25 mg tablet Take 6.25 mg by mouth with breakfast and with evening meal.03/22/2019Active lisinopril 40 mg tablet Take 40 mg by mouth.03/22/2019Active folic acid (Folvite) 1 mg tablet Take 1 tablet by mouth in the morning.5Active ipratropium-albuteroL (Duo-Neb) 0.5-2.5 mg/3 mL nebulizer solution INHALE 3ml via NEBULIZER TWICE DAILY YLQTRL6203/23/2024ctive amLODIPine (Norvasc) 10 mg tablet Indications:Benign hypertensive heart disease without congestive heart failure Take 1 tablet (10 mg) by mouth once daily as directed. 90 tablet 303/506Active hydroCHLOROthiazide (HYDRODiuril) 25 mg tablet Indications:Benign hypertensive heart disease without congestive heart failure Take 1 tablet (25 mg) by mouth in the morning. 30 tablet 1103506Active Additional Information Patient not taking.Reported on 03/07/2025 hydroCHLOROthiazide (Microzide) 12.5 mg capsule Indications:Benign hypertensive heart disease without congestive heart failure Take 1 capsule (12.5 mg) by mouth in the morning.6Active rosuvastatin (Crestor) 20 mg tablet Take 20 mg by mouth at bedtime.5Active Active Problems ProblemNoted DateDiagnosed DateChronic heart failure with preserved ejection rhxrdopa90/12/2025Nonrheumatic aortic (valve) oilucxyjrdvoh19/12/2025enign hypertensive heart disease without congestive heart pvpugfl0709/04/2024hronic obstructive pulmonary rsebwzk3709/04/2024bnormal EKG002/12/2024Gastroesophageal bhtaue9501/03/2024recordial pain01/03/2024yspnea on xggiyrkt36/10/2024ulmonary syjgrqrtbqqq61/10/2024reoperative jislqunht83/10/1610Prtvudcre35/08/2024PH with urinary tnfkxcwjuol20/08/2024hronic hdxohjwilws53/08/2024ED (erectile dysfunction)01/01/2024Elevated PSA01/01/2024Enlarged lymph node01/01/2024Feeling of incomplete bladder lvmgbhli31/08/2024Former denofq4801/01/2024Hesitancy 01/01/2024Essential nmazxzfhjbfi28/08/2085Qesblpyiixlsaq57/08/2024Nocturia 01/01/20240397Txoske28/08/2024Varicosities of leg01/01/2024Weak urine stream 01/01/2024 Encounters DateTypeDepartmentCare YyqjPvohoyyrjma85/16/2025Orders Only [facility] [place] [address] [place] [address] Provider, MD Niki from Last 3 Months Immunizations ImmunizationAdministration DatesNext DueInfluenza, Exazgqmooyn68/01/2022 Pneumococcal Conjugate PCV 13006/26/2021 Family History Medical HistoryRelationNameCommentsHeart attackFatherDiabetesMotherRelationName StatusCommentsFatherDeceasedMotherDeceased Social History Tobacco UseTypesPacks/DayYears UsedDateSmoking Tobacco: FormerCigarettesQuit: 06/26/2021mokeless Tobacco: Never Tobacco Cessation:Counseling Given: Not Answered Alcohol UseStandard Drinks/WeekCommentsYes0 (1 standard drink = 0.6 oz pure alcohol)occasionallyUT Safety & EnvironmentAnswerDate RecordedFear of Current or Ex-PartnerNot on file08/18/2023Emotionally AbusedNot on file08/18/2023hysically AbusedNot on file08/18/2023Sexually AbusedNot on file08/18/2023hysically or Sexually AbusedNot on file08/18/2023Sex and Gender InformationValueDate Recorded Sex Assigned at FsxvxMpzk60/08/2024 12:20 PM EDTLegal WcmGqfl7208/14/2023 2:45 PM ESTGender EilnksgcPrys58/08/2024 12:20 PM EDTSexual OrientationHeterosexual or Jiwcfyss50/08/2024 12:20 PM EDT Last Filed Vital Signs Vital SignReadingTime TakenCommentsBlood Lgrqfmvw955/6209 10:57 AM EDT Qubhl4645/12/2025 10:57 AM EDTTemperature--Respiratory Rate--Oxygen Saturation 94%03/07/2025 10:57 AM EDTInhaled Oxygen Concentration--Lzzawf004 kg (235 lb) 03/07/2025 10:57 AM YVSRcvbot691.3 cm (5' 9 )03/07/2025 10:57 AM EDTBody Mass Index34.709 10:57 AM EDT Plan of Treatment Health MaintenanceDue DateLast DoneCommentsCT Cjruqndbedeo1956Colonoscopy 1956olorectal Cancer Wnwxkdupw1956FIT-DNA1956FIT1956 FOBT1956Medicare Annual Wellness (AWV)1955 0569Wdzbrflvrnxnf1956 Depression Rshqullkg35/19/1968Adult Foqhcyv9203/14/1978Zoster Vaccines (1 of 2) 2006Fall Risk Ksskcyhov59/19/2021Pneumococcal Vaccine: 50+ Years (2 of 2 - PPSV23, PCV20, or PCV21)/2COVID-19 Vaccine (3 - 2024- season)503/02/2022, 09/02/2020Influenza Vaccine (#1)2025 05/29/2024, 02/24/2022HIB VaccinesAged OutNo longer eligible based on patient's age to complete this topicHPV VaccinesAged OutNo longer eligible based on patient's age to complete this topicIPV VaccinesAged OutNo longer eligible based on patient's age to complete this topicMeningococcal B VaccineAged OutNo longer eligible based on patient's age to complete this topicMeningococcal VaccineAged OutNo longer eligible based on patient's age to complete this topicRotavirus VaccinesAged OutNo longer eligible based on patient's age to complete this topic Procedures Procedure NamePriorityDate/TimeAssociated DiagnosisCommentsVITAMIN U08Nymucbo 04/09/2025 8:40 AM EDTfrom Last 3 Months Results * Vitamin B12 (04/09/2025 8:40 AM EDT)Specimen (Source)Anatomical Location / LateralityCollection Method / VolumeCollection TimeReceived TimeBloodVenous blood specimen / Unknown Narrative Authorizing ProviderResult TypeResult StatusHistorical Provider ANA BLOOD ORDERABLESFinal Result from Last 3 Months Insurance Care Teams Team MemberRelationshipSpecialtyStart DateEnd Date Gio Jasso DO PCP - General01/01/24
--- OUTSIDE RECORDS SUMMARY | 2025-06-23 09:16 | XMS_ITS | CCD ---
Author Organization [facility] CliniSywi Care Team Providers Care Ocean Export Agent Name Role Phone GIO CAVANAUGH Primary Care Physician [phone] Sybil Lee Unavailable Gina Starks Unavailable Gio [...] Merida Admitting Unavailable LILLY ., DR BELA Merdia Attending Unavailable BALL, DR POWERS Primary Care [...] Primary Care Provider EARL Fleming Attending Provider DUY JAMES MD Attending Unavailable DO Gio Cavanaugh Primary Care Provider [phone] MD Meghan Brito Attending Provider [phone] Gio Cavanaugh Primary Care Unavailable Meghan Brito Admitting Unavailable Meghan Brito Attending Unavailable Theresa Flemnig Attending Unavailable Theresa Fleming Admitting Unavailable Gio Cavanaugh Primary Care Unavailable Lue, Meghan M. Admitting Unavailable Lue, Meghan M. Attending Unavailable Lue, Meghan M. Referring Unavailable Yousko, Ghanshyam J Admitting Unavailable Yousko, Ghanshyam J Attending Unavailable Lue, Meghan M. Attending Unavailable Lue, Meghan M. Attending Unavailable Lue, Meghan M. Admitting Unavailable Lue, Meghan M. Attending Unavailable Lue, Meghan M. Referring Unavailable Lue, Meghan M. Attending Unavailable Lue, Megahn M. Attending Unavailable Lue, Meghan M. Attending Unavailable Yousko, Ghanshyam J Admitting Unavailable Yousko, Ghanshyam J Attending Unavailable Lue, Meghan M. Attending Unavailable Lue, Meghan M. Attending Unavailable Lue, Meghan M. Referring Unavailable Lue, Meghan M. Attending Unavailable GLENNA LAKHANI Attending Unavailable GLENNA LAKHANI Attending Unavailable Gio Cavanaugh DO Primary Care Provider Gio Cavanaugh DO Attending Provider [phone] Allergies Allergy ClassificationReported Allergen(s)Allergy TypeDate of OnsetReaction(s) Facility (20 sources)Cephalexin; Translations: [cephalexin]Drug Ptrgwkq75-71-9737Danxbos (qualifier value), Dyspnea (finding)[facility] [employer] Other (20 sources)Penicillins; Translations: [penicillins]Drug dlmamva68-91-7662 Unknown (qualifier value), Dyspnea (finding)[facility] (2 sources)Penicillin VDrug Allergyrash/coughMulticare Health [employer] Other (13 sources)Cephalexin; Translations: [Keflex]Drug Jqlmcxg51-13-8259nhqb/cough [facility] (11 sources)PenicillinDrug Allergyras/coughAm[facility] [employer] Other (7 sources)Keflex *CEPHALOSPORINS*Propensity to adverse mmhlprayt77-25-7337 [facility] [employer] Other (2 sources)Penicillin G Benzathine & ProcDrug mzugelt16-81-1887HlsawkxOpaga [employer] Other (2 sources)patient allergy list reviewed by nurse or physiciaPropensity to adverse jawtkwxsq19-55-1424Mwgtliu:[facility] [employer] Other (6 sources)Cephalosporins (Antibiotic); Translations: [Cephalosporins]Allergy to otbjckdrg54-34-7198Qmdigij ReactionSt. Elizabeth HospitalComment on above:Onset Date: 02/28/2018 (1 source)CephalexinDrug Hofmwar27-44-9248DhlbqkbhsSt. Elizabeth Hospital Repository Medications Current Medications MedicationDrug Class(es)DatesSig (Normalized)Sig (Original)albuterol 0.83 mg/ml inhalation solution (20 sources)beta2-Adrenergic AgonistStart: 04-65-7361lxnx 2.5 mg by inhalation every six hours as neededalbuterol 0.083% Inh Haydee 3 mL 2.5 mg, 3 mL, Inhalation, q6hr Shortness of breath or wheezing, Q6H and PRN Start Date: 12/25/23 Status: Ordered Repeat number: 1Start: 68-83-1508qxse 2 puff(s) by inhalation every four hours as neededAlbuterol Sulfate HFA 108 (90 Base) MCG/ACT 2 puffs Inhalation every 4 hrs as needed Aug, ActiveStart: 54-39-6202vvjk 2 puff(s) by inhalation every four hours as neededAlbuterol Sulfate HFA 108 (90 Base) MCG/ACT 2 puffs Inhalation every 4 hrs as needed Aug, ActiveStart: 05-24-2021 take 2 puff(s) by inhalation every four hours as neededAlbuterol Sulfate HFA 108 (90 Base) MCG/ACT 2 puffs Inhalation every 4 hrs as needed Aug, Active 120 actuat albuterol 0.1 mg/actuat / ipratropium bromide 0.02 mg/actuat inhalation spray (1 source)Anticholinergic, beta2-Adrenergic AgonistStart: 60-49-4170yhmy 20-100 ug by inhalation four times dailyCombivent Respimat 20-100 MCG/ACT 1 puff Inhalation bid, may increase to qid if needed. for 30 daysMay, Active amLODIPine 5 mg oral tablet (14 sources)Dihydropyridine Calcium Channel BlockerStart: 46-99-4616cclo 2 tablets by mouth twice dailyAmlodipine 5 mg tablet Active 10 MG PO Twice daily May 29, 2024 9:38am Complies with drug therapyStart: 05-22-2024 End: 85-20-8197fwoo 1 tablet by mouth once dailyAmlodipine 5 mg tablet Discontinued 0 .ROUTE .COMPLEX 30 May 22, 2024 6:30pm May 29, 2024 9:38am TAKE 1 TABLET BY MOUTH DAILYStart: 12-22-2023 End: 33-20-8773qvjc 1 tablet by mouth once dailyAmlodipine 5 mg tablet Discontinued 5 MG PO Daily December 22, 2023 12:00am May 22, 2024 6:30pmazithromycin 250 mg oral tablet (1 source)Macrolide AntimicrobialStart: 89-90-2463Corpvlebglwa 250 MG as directed Orally daily for 5 days Aug, Activecarvedilol 6.25 mg oral tablet (20 sources)alpha-Adrenergic Mary, beta-Adrenergic BlockerStart: 09-15-2024 take 1 tablet by mouth twice dailyCarvedilol 6.25 mg tablet Active 0 .ROUTE .COMPLEX 60 September 15, 2024 5:10pm TAKE 1 TABLET BY MOUTH TWICE DAILY Complies with drug therapyStart: 03-22-2019 End: 08-48-1771uzlg 1 tablet by mouth twice dailyCarvedilol 6.25 mg Tablet Discontinued 6.25 MG PO Twice daily April 06, 2020 12:00am September 12:50pmCarvedilol Activeciprofloxacin 500 mg oral tablet (4 sources)Quinolone AntimicrobialStart: 74-62-9930qhil 1 tablet by mouth once ciprofloxacin 500 mg Tab 500 mg = 1 tab(s), Oral, Once, Prophylaxis Start Date: 06/06/23 Status: OrderedStart: 05-10-2023 End: 81-49-0444zwwn 1 tablet by mouth twice dailyCipro 500 mg Tab 500 mg = 1 tab(s), Oral, BID, Start the morning of procedure., X 1 day(s), # 2 tab(s), Refills(s) 0, Pharmacy: [id number], 180, cm, 05/10/23 10:56:00 EST, Height/Length Dosing, 102, kg, 05/10/23 10:56:00 EST, Weight Dosing Start Date: 05/10/23 Stop Date: 05/11/23 Status: OrdereddiazePAM 10 mg oral tablet (4 sources)BenzodiazepineStart: 87-73-2398Zpiics 10 mg Tab 10 mg = 1 tab(s), Oral, Once, take 30 minutes prior to procedure, # 1 tab(s), Refills(s) 0, Pharmacy: [id number], 180, cm, 05/10/23 10:56:00 EST, Height/Length Dosing, 102, kg, 05/10/23 10:56:00 EST, Weight Dosing Start Date: 05/10/23 Status: Orderedfolic acid 1 mg oral tablet (9 sources)Start: 20-61-2122vdqno acid 1 mg Tab 1 mg = 1 tab(s) Start Date: 10/10/24 Status: Ordered Repeat number: 1Start: 05-65-5593sprs 1 tablet by mouth once dailyFolic Acid 1 mg tablet Active 0 .ROUTE .COMPLEX 25 05August 20, 2024 2:08pm TAKE 1 TABLET BY MOUTH DAILY Complies with drug therapyStart: 03-05-2024 End: 32-39-9827shxc 1 tablet by mouth once dailyFolic Acid 1 mg tablet Discontinued 1 MG PO Daily March 08, 2024 4:29pm August 20, 2024 2:08pmhydroCHLOROthiazide 25 mg oral tablet (4 sources)Thiazide DiureticStart: 68-53-2830jnzv 1 tablet by mouth once daily Hydrochlorothiazide 25 mg tablet Active 25 MG PO Daily September 05, 2024 12:00am Complies with drug therapylisinopril 40 mg oral tablet (20 sources)Angiotensin Converting Enzyme InhibitorStart: 23-06-9799bqsh 1 tablet by mouth once dailyLisinopril 40 mg tablet Active 40 MG PO Daily 90 March 12, 2025 12:35pm Complies with drug therapyStart: 03-13-2024 End: 25-62-8570pkmh 1 tablet by mouth once dailyLisinopril 40 mg tablet Discontinued 0 .ROUTE .COMPLEX March 13, 2024 8:37am March 12, 2025 12:35pm TAKE 1 TABLET BY MOUTH DAILYStart: 03-22-2019 End: 56-75-1502ghyu 1 tablet by mouth once dailyLisinopril 40 mg Tablet Discontinued 40 MG PO Daily December 16, 2020 12:00am March 13, 2024 8:37am Lisinopril Qxbvqs67 actuat olodaterol 0.0025 mg/actuat / tiotropium 0.0025 mg/actuat inhalation spray (1 source)Anticholinergic, beta2-Adrenergic AgonistStart: 81-22-8888Bogyilo Respimat 2.5-2.5 MCG/ACT 2 puffs Inhalation Once a day for 30 days d/c Anoro Rx May, Activerosuvastatin calcium 20 mg oral tablet (20 sources)HMG-CoA Reductase InhibitorStart: 36-84-2926flbr 1 tablet by mouth once dailyRosuvastatin 20 mg tablet Active 20 MG PO Daily 90 90 3 November 29, 2024 12:00am Complies with drug therapyStart: 12-16-2020 End: 07-22-4043gouo 1 tablet by mouth once dailyRosuvastatin 20 mg Tablet Discontinued 20 MG PO Daily December 16, 2020 12:00am November 28, 2023 9:01amStart: 07-29-5608vgwnjytbjzdg Oral, Daily, Refills(s) 0 Start Date: 03/26/19 Status: OrderedRosuvastatin Calcium Not-Taking/PRNRosuvastatin Calcium Not-Taking Rosuvastatin Calcium Sjcqje51 actuat umeclidinium 0.0625 mg/actuat / vilanterol 0.025 mg/actuat dry powder inhaler (1 source)Anticholinergic, beta2-Adrenergic AgonistStart: 86-29-6693hhil 1 puff(s) by inhalation once dailyAnoro Ellipta 62.5-25 MCG/ACT 1 puff Inhalation Once a day for 30 days May, Active Completed/Discontinued Medications MedicationDrug Class(es)DatesSig (Normalized)Sig (Original)24 hr alfuzosin hydrochloride 10 mg extended release oral tablet (20 sources)alpha-Adrenergic BlockerStart: 07-28-2023 End: 76-84-1406rvtr 1 tablet by mouth once daily at mealtimeAlfuzosin 10 mg tablet extended release 24 hr Discontinued 10 MG PO Daily 30 30 0 November 28, 2023 12:00am May 29, 2024 9:37am administer after the same meal each dayStart: 33-83-5709yhen 1 tablet by mouth once dailyalfuzosin 10 mg ER Tab 10 mg = 1 tab(s), Oral, Daily, # 30 tab(s), Refills(s) 5, Pharmacy: [facility] #[id number], 180, cm, 12/20/22 10:13:00 EDT, Height/Length Dosing, 102.5, kg, 12/20/22 10:13:00 EDT, Weight Dosing Start Date: 01/30/23 Status: OrderedStart: 07-14-2022 take 1 tablet by mouth once dailyalfuzosin 10 mg ER Tab 10 mg = 1 tab(s), Oral, Daily, # 30 tab(s), Refills(s) 5, Pharmacy: [id number], 180, cm, 10/26/21 9:12:00 EDT, Height/Length Dosing, 95.2, kg, 10/26/21 9:12:00 EDT, WeightDosing Start Date: 07/14/22 Status: OrderedStart: 80-86-4993ubue 1 tablet by mouth once dailyalfuzosin 10 mg ER Tab 10 mg = 1 tab(s), Oral, Daily, # 30 tab(s), Refills(s) 11, Pharmacy: [facility] [facility], 180, cm, 07/08/21 15:57:00 EST, Height/Length Dosing, 95.2, kg, 07/08/21 15:57:00 EST, Weight Dosing Start Date: 07/08/21 Status: Orderedplenvu 140 gm solution reconstituted (13 sources)Osmotic Laxative, Vitamin CStart: 81-27-0997Hfcjjk 140 GM dose 1 pouch at 4pm, dose 2 pouch A & B at 11pm Orally BID for 1 days BIN:[id number] PCN: CNRX GROUP:[id number] ID:[id number] October, Not-Taking/PRNStart: 13-78-0583Pchtfq 140 GM dose 1 pouch at 4pm, dose 2 pouch A & B at 11pm Orally BID for 1 days BIN:[id number] PCN: CNRX GROUP:[id number] ID:[id number] October, Not-TakingStart: 73-76-7017Lggiju 140 GM dose 1 pouch at 4pm, dose 2 pouch A & B at 11pm Orally BID for 1 days BIN:[id number]: CNRXGROUP:[id number] October, Not-TakingStart: 11-17-2020 Plenvu 140 GM dose 1 pouch at 4pm, dose 2 pouch A & B at 11pm Orally BID for 1 days BIN:[id number]: CNRXGROUP:[id number]:[id number] October, Active methylPREDNISolone 4 mg oral tablet (13 sources)CorticosteroidStart: 59-92-4439kzlpmmFNIBSKYlvujq 4 MG as directed Orally Once a day for 6 days Apr, Not-Taking/PRNondansetron 4 mg oral tablet (12 sources)Serotonin-3 Receptor AntagonistStart: 44-58-5419yluh 1 tablet by mouth every eight hours as neededOndansetron HCl 4 MG 1 tablet Orally every 8 hours as needed for 5 days Jul, Not-Taking/PRNpredniSONE 20 mg oral tablet (4 sources)Start: 02-29-2024 End: 42-94-6622Xdsybjqfkd 20 mg tablet Discontinued 20 MG PO As Directed 15 10 0 February 29, 2024 12:00am May 29, 2024 9:38am 1 tab bid w/ food x 5 days then qd w/ food x 5 daystamsulosin hydrochloride 0.4 mg oral capsule (6 sources)alpha-Adrenergic BlockerStart: 12-16-2020 End: 29-35-5327kkiz 1 capsule by mouth once dailyTamsulosin 0.4 mg capsule Discontinued 0.4 MG PO Daily December 16, 2020 12:00am November 28, 2023 9:01am Problems Active Problems Problem ClassificationProblemDateDocumented DateEpisodic/ChronicAsthma (1 source)Unspecified asthma with status asthmaticus; Translations: [UNS ASTHMA W/STATUS ASTHMATICUS]Onset: 07-85-5033NswgddpOagklat kidney disease (8 sources)Chronic kidney disease; Translations: [Chronic kidney disease, unspecified]22-06-1486HlqhmxxCjipnff obstructive pulmonary disease and bronchiectasis (20 sources)Acute exacerbation of chronic obstructive airways disease; Translations: [Chronic obstructive pulmonary disease with (acute) exacerbation] Onset: 13-10-1096OgxblboWuyraco on above:PFT: FEV1/FVC 66, TLC 90%, DLCO 65%, air trapping w/o bronchodilator response - ongestive heart failure; nonhypertensive (1 source)Chronic heart failure co-occurrent with normal ejection fraction; Translations: [Chronic diastolic (congestive) heart failure]99-20-9630Rwdohyc Comment on above:Stress test: LVEF 48, fixed defect inferiorly, TID normal - 01/2024Echo: LVEF > 55%, KWAME, normal RV size/function, RVSP 54, mod AI - 08/2024 Deficiency and other anemia (19 sources)Anemia; Translations: [Anemia, unspecified]31-15-6527HxxxxwuzBmaaanb on above:Last scope 2020.Normal MCV, WBC and Plaltelts.Normal Fe, B12.Low FA Deficiency and other anemia (6 sources)Anemia, unspecified; Translations: [Anemia, unspecified]Onset: 27-67-7462MjxbhxsbTznbbojdg of lipid metabolism (20 sources)Hyperlipidemia; Translations: [Pure hypercholesterolemia]Onset: 292554-31-7125CdmntaqRisfgqphnr disorders (20 sources)Gastroesophageal reflux disease; Translations: [Gastro-esophageal reflux disease with esophagitis]Onset: 192617-02-5940AkjqoluSwoceftcw hypertension (20 sources)Hypertensive disorder; Translations: [Essential hypertension]Onset: 801268-82-3845XubwsqgAbwbdvj on above:Echo: LVEF > 55%, KWAME, normal RV size/function, RVSP 54, mod AI - 08/2024Stress test: LVEF 48, fixed defect inferiorly, TID normal 01/2024Fluid and electrolyte disorders (13 sources)Hyponatremia; Translations: [Hypo-osmolality and hyponatremia] EpisodicGenitourinary symptoms and ill-defined conditions (20 sources)Delay when starting to pass urine; Translations: [Nocturia]Onset: 926719-76-4412MygqyplkDnml and other crystal arthropathies (6 sources)Acute gout; Translations: [Gout, unspecified]43-23-2613YncsiszQtumf valve disorders (10 sources)Aortic valve disorder; Translations: [Other nonrheumatic aortic valve disorders]Onset: 292359-53-7873HfcikkgAxpefua on above:Echo: LVEF > 55%, KWAME, normal RV size/function, RVSP 54, mod AI 08/2024Hyperplasia of prostate (20 sources)Benign prostatic hypertrophy with outflow obstruction; Translations: [Benign prostatic hyperplasia with lower urinary tract symptoms]Onset: 03-04-9773NfqsdnkMopojqzpayyz with complications and secondary hypertension (2 sources)Hypertensive heart disease without heart failure; Translations: [Hypertensive heart disease withoutheart failure]Onset: 24-75-0630Hotmoqp Immunizations and screening for infectious disease (4 sources)Contact with and (suspected) exposure to other viral communicable diseases; Translations: [Vaccination given]Onset: 05-24-2021 Resolved: 55-40-1465YjwgfuzjYnqxfubbewxa conditions of male genital organs (20 sources)Chronic prostatitis; Translations: [Chronic prostatitis]Onset: 391662-76-2370OsmnigrJhyytvdaoumfm (9 sources)Lymphadenopathy; Translations: [Enlarged lymph nodes, unspecified] Onset: 38-65-2282EycbzklaXvksesrllxl deficiencies (2 sources)Folic acid deficiency; Translations: [Deficiency of other specified B group vitamins]05-69-8326FlpnweoeHcmeqxvtczpdrz (19 sources)Frygmeowc35-17-0809MflhhioPzhbd aftercare (1 source)Other usp (current) drug therapy; Translations: [OTH TIRE MOUNTER CURRENT DRUG THERAPY]Onset: 85-46-9255XnqjrocvBzyle aftercare (2 sources)Long-term current use of drug therapy; Translations: [Other long wall mining machine helper (current) drug therapy]EpisodicOther and unspecified benign neoplasm (11 sources)Lipoma of back; Translations: [Benign lipomatous neoplasm of skin and subcutaneous tissue of trunk]EpisodicOther and unspecified benign neoplasm (2 sources)Lipoma of skin and subcutaneous tissue of trunk; Translations: [Benign lipomatous neoplasm of skin and subcutaneous tissue of trunk]Episodic Other diseases of kidney and ureters (2 sources)Urinary tract obstruction; Translations: [Other obstructive and reflux uropathy]Onset: 52-63-1482DjttyhqlPteeb liver diseases (1 source)Abnormal levels of other serum enzymesEpisodicOther male genital disorders (15 sources)Male erectile dysfunction, unspecified; Translations: [Erectile dysfunction]Onset: 06-76-0333PbkpytfTmztt nutritional; endocrine; and metabolic disorders (9 sources)Body mass index 30+ - obesity; Translations: [Body mass index 31.0- 31.9, adult]Onset: 17-91-9271CzmbmhxEijsb nutritional; endocrine; and metabolic disorders (2 sources)Obesity; Translations: [Obesity, unspecified]ChronicOther nutritional; endocrine; and metabolic disorders (2 sources)Simple obesity ; Translations: [Other obesity due to excess calories] Onset: 44-96-1127TjugdxyPzdfj nutritional; endocrine; and metabolic disorders (5 sources)Obesity caused by energy imbalance; Translations: [Other obesity due to excess calories]ChronicOther nutritional; endocrine; and metabolic disorders (2 sources)Overweight; Translations: [Overweight]EpisodicOther screening for suspected conditions (not mental disorders or infectious disease) (20 sources)Raised prostate specific antigen; Translations: [Elevated prostate specific antigen [PSA]]Onset: 10-26-2021 Resolved: 82-84-2707EiuaxvkcIwtqevf on above:PSA: 09/2019 - 6.6, 02/2020 - 5.32, 09/2020 - 5.87, 09/2021 - 5.5, 10/2023 - 6.70, 2.48 - 09/2024s/p TRUS/bx 2015, 2019, 2023s/p MRI w/o noduleOther upper respiratory infections (2 sources)Acute maxillary sinusitis; Translations: [Acute maxillary sinusitis, unspecified]EpisodicPneumonia (except that caused by tuberculosis or sexually transmitted disease) (9 sources)Pneumonia, unspecified organism; Translations: [Bacterial pneumonia] Onset: 01-02-2022 Resolved: 00-58-6239ZjwuvnueAlbiybynu heart disease (6 sources)Pulmonary hypertension; Translations: [Pulmonary hypertension, unspecified]Onset: 718673-28-3154QgxzuefRsyywzx on above:Echo: LVEF > 55%, KWAME, normal RV size/function, RVSP 54, mod AI - 08/2024Respiratory failure; insufficiency; arrest (adult) (1 source)Acute respiratory failure with hypercapnia; Translations: [ACUTE RESP FAIL W/HYPERCAPNIA]Onset: 37-41-6769IvdanaswZlpnwmhaa and history of mental health and substance abuse codes (16 sources)Personal history of nicotine dependence; Translations: [H/O: Disorder]Onset: 24-18-9433LldmjmuvClovbzacv-related disorders (20 sources)Smoker; 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]Onset: 03-02-2018 Resolved: 694797-08-4109AczpcgdIzhenha on above:- age started 19, 1ppd, age quit 66,LDCT - no suspicious nodules: 05/2023, 05/2024Unclassified (19 sources)Finding of sensation of eymrrdm37-37-7712Pxtdeayzomxu (1 source)ELEV LVLS LIVER TRANSAMINASE LVLS; Translations: [ELEV LVLS LIVER TRANSAMINASE LVLS]Onset: 08-31-1312Dpvkonsxrkvi (1 source)CONTACT W/AND (SUSP) EXPOS COVID-19; Translations: [CONTACT W/AND (SUSP) EXPOS COVID-19]Onset: 49-47-9582Gejjxoyfwuvx (1 source)Benign prostatic hyperplasia with lower urinary tract symptoms; Translations: [Benign prostatic hyperplasia with lower urinary tract symptoms] Onset: 92-42-6802Hxrfajwj veins of lower extremity (20 sources)Varicose veins of lower extremity; Translations: [Asymptomatic varicose veins of unspecified lower extremity]Onset: Episodic Past or Other Problems Problem ClassificationProblemDateDocumented DateEpisodic/ChronicChronic obstructive pulmonary disease and bronchiectasis (1 source)Bronchitis, not specified as acute or chronicOnset: 05-24-2021 Resolved: 22-91-9644LggvxnooZvnxvpedld disorders (5 sources)Esophageal disorders; Translations: [Gastroesophageal reflux disease with esophagitis without hemorrhage]Malaise and fatigue (2 sources)Malaise and fatigue; Translations: [Other malaise and fatigue]Onset: 29-09-5370KnvbsmwbMuffi connective tissue disease (2 sources)Plantar fascial fibromatosis; Translations: [Plantar fascial fibromatosis]Onset: 09-73-6625CwslzxjnSeqgd lower respiratory disease (2 sources)Other forms of dyspnea; Translations: [Other forms of dyspnea]Onset: 77-72-4934IwmvixnjSmozxtty codes; unclassified (2 sources)Tobacco user; Translations: [Tobacco use] Resolved: 84-78-8139DxkugxeyUjcjaeexcgqk (2 sources)Exposure to acute respiratory syndrome coronavirus 2; Translations: [Contact with and (suspected) exposure to COVID-19] Resolved: 84-88-5070Qrjgd infection (1 source)COVID-19Onset: 05-24-2021 Resolved: 05-24-2021 Results Test NameValueInterpretationReference RangeFacilityOrders Onlyon 04-10-2025 Orders [id number] Michael Killian 1955 M Date Provider Department [place] 04/10/2025 [id number], HISTORICAL CARD [facility] Family History Problem Relation Age of Onset Diabetes Mother Heart attack Father Family Status - Relation Status Age at Mother Father DeceasedNormalUniversity of [facility] TylerBasophils Auto (Bld) [#/Vol]Ordered By: Gio Cavanaugh on 87-15-1319Dgchinkcv (Bld) [#/Vol]0.1 10 3/uL 0.0-0.1FRegency Hospital ToledoBasophils/100 WBC Auto (Bld)Ordered By: Gio Cavanaugh on 76-33-4627Zlbhhwmsi/100 WBC (Bld)1.4 %0.2-2.0[facility] HospitalEosinophils/100 WBC Auto (Bld)Ordered By: Gio Cavanaugh on 26-93-6543Jvbbpqdctkp/100 WBC (Bld)3.8 %0.9-7.0[facility] Erythrocyte distribution width Auto (RBC) [Ratio]Ordered By: Gio Cavanaugh on 88-02-5070Ihzhzycajlm distribution width (RBC) [Ratio]12.7 %11.0-15.0[facility]. Elizabeth HospitalGlomerular filtration rate (GFR) estimation in non- AmericanOrdered By: Gio Cavanaugh on 61-86-9209UER/1.73 sq M.predicted among non-blacks MDRD (S/P/Bld) [Vol rate/Area]59 mL/min/{1.73_m2}Low>=60 mL/min/1.73m 2FRegency Hospital ToledoHematocrit Auto (Bld) [Volume fraction]Ordered By: Gio Cavanaugh on 47-82-4671Dvdptvkpnp (Bld) [Volume fraction]41.0 %Low42.0-54.0[facility]. [facility] HospitalHemoglobin [Mass/volume] in BloodOrdered By: Gio Cavanaugh on 27-21-2875Xofyaluyvy (Bld) [Mass/Vol]13.9 g/dLLow14.0-18.0[facility] HospitalLaboratory - Chemistry and Chemistry - challengeOrdered By: Gio Cavanaugh on 04-09-2025 Calcium [Mass/Vol]9.3 mg/dL8.5-10.1FRegency Hospital ToledoChloride [Moles/Vol]104 mmol/U27-537YaaedduysSt. Elizabeth HospitalCO2 [Moles/Vol]25.3 mmol/L21.0-32.0[facility] HospitalCobalamin (Vitamin B12) [Mass/Vol]400 pg/qX477-8145IifpppuufSt. Elizabeth HospitalComment on above: Performed at: [facility] [address] [id number] Director: Alexi Mobley PhD, Phone: [phone] [Mass/Vol]1.21 mg/dL0.70-1.30St[facility] HospitalFerritin [Mass/Vol]259.0 ng/mL 26.0-388.0St[facility] HospitalGFR/1.73 sq M.predicted MDRD (S/P/Bld) [Vol rate/Area]mL/min/{1.73_m2}>=60 mL/min/1.73m 2FRegency Hospital ToledoGlucose [Mass/Vol]159 mg/uPXpgt00-108BqdilrkouSt. Elizabeth HospitalPotassium [Moles/Vol]4.2 mmol/L3.5-5.1FRegency Hospital Toledo Sodium [Moles/Vol]142 mmol/T005-868NproisrliSt. Elizabeth HospitalUrea nitrogen [Mass/Vol]20.0 mg/dLHigh7.0-18.0St. [facility] HospitalUrea nitrogen/Creatinine [Mass ratio]16.5 mg/mgSt. Elizabeth Hospital Laboratory - Hematology and Cell countsOrdered By: Gio Cavanaugh on 04-09-2025 Immature granulocytes/100 WBC (Bld)0.2 %0.0-0.5FRegency Hospital Toledo Leukocytes [#/volume] corrected for nucleated erythrocytes in Blood by Automated counOrdered By: Gio Cavanaugh on 11-85-7601PFV corrected for nucl RBC Auto (Bld) [#/Vol]8.1 10 3/uL4.0-11.0[facility] HospitalLymphocytes Auto (Bld) [#/Vol]Ordered By: Gio Cavanaugh on 22-92-2006Pmclxaptxdu (Bld) [#/Vol]1.7 10 3/uL1.2-3.8St. [facility] HospitalLymphocytes/100 WBC Auto (Bld)Ordered By: Gio Cavanaugh on 92-60-3116Hixjigrrwvn/100 WBC (Bld)20.8 % 20.5-60.0[facility] HospitalMCH Auto (RBC) [Entitic mass]Ordered By: Gio Cavanaugh on 32-69-0975JDF (RBC) [Entitic mass]29.3 pg25.9-34.0St. [facility] HospitalMCHC Auto (RBC) [Mass/Vol]Ordered By: Gio Cavanaugh on 69-66-9073JELK (RBC) [Mass/Vol]33.9 g/dL29.9-35.2FRegency Hospital ToledoMCV Auto (RBC) [Entitic vol]Ordered By: Gio Cavanaugh on 17-32-2781JSN (RBC) [Entitic vol]86.5 fL80.0-94.0[facility]. [facility] HospitalMicroalbumin [Mass/volume] in UrineOrdered By: Gio Cavanaugh on 32-70-2022Hrdjhcu DL <= 20 mg/L (U) [Mass/Vol]17.8 mg/dL<=30.0St. [facility] HospitalMonocytes Auto (Bld) [#/Vol]Ordered By: Gio Cavanaugh on 74-15-0763Mztnpymmm (Bld) [#/Vol] 0.6 10 3/uL0.3-0.8St[facility] HospitalMonocytes/100 WBC Auto (Bld) Ordered By: Gio Cavanaugh on 93-52-0241Lyuedhopx/100 WBC (Bld)7.8 %1.7-12.0 [facility] HospitalNeutrophils Auto (Bld) [#/Vol]Ordered By: Gio Cavanaugh on 15-56-6886Ywrcpmpeuxh (Bld) [#/Vol]5.3 10 3/uL1.4-6.5FRegency Hospital ToledoNeutrophils/100 WBC Auto (Bld)Ordered By: Gio Cavanaugh on 59-92-6480Vjsckazehwl/100 WBC (Bld)66.0 %43.0-75.0[facility] HospitalNo Panel InformationOrdered By: Gio Cavanaugh on 09-15-8287Vikad Random Xpobocnawp426.66 mg/dL20.00-300.00[facility] HospitalEosinophils # (Auto)0.3 10 3/uL0.0-0.7FRegency Hospital ToledoFolate28.10 ng/mL 8.60-58.90[facility] HospitalImmature Granulocyte # (Auto)0.02 10 3/uL0.00-0.03[facility] HospitalPlatelet mean volume Auto (Bld) [Entitic vol]Ordered By: Gio Cavanaugh on 66-61-6202Eakieenz mean volume (Bld) [Entitic vol]10.6 fL9.5-13.5FRegency Hospital ToledoPlatelets Auto (Bld) [#/Vol]Ordered By: Gio Cavanaugh on 57-58-9334Buwnfjfyr (Bld) [#/Vol]209 10 3/bY078-961LfxmbuvzoSt. Elizabeth HospitalRBC Auto (Bld) [#/Vol]Ordered By: Gio Cavanaugh on 92-06-0544DXP (Bld) [#/Vol]4.74 10 6/uL4.70-6.10[facility]view Hospitalerum or plasma anion gap determinationOrdered By: Gio Cavanaugh on 47-47-9679Ixozm gap [Moles/Vol]16.9 mmol/LFRegency Hospital ToledoUrine microalbumin/creatinine mass ratioOrdered By: Gio Cavanaugh on 30-40-8825Engjpmi/Creatinine DL <= 20 mg/L (U) [Mass ratio]68.0 mg/gHigh 0.0-29.9[facility]. [facility] HospitalComment on above:NO MICROALBUMINURIA 0- 29 MG/GCLINICAL MICROALBUMINURIA 30-300 MG/GMACROALBUMINURIA >300 MG/GOffice Visiton 98-41-9760Hbbtfi-up [id number] Michael Killian 1955 M Date Provider Department Center 03/07/2025 [id number]-VTPXJUGLENNA LAKHANI CARD Nas Hos Family History Problem Relation Age of Onset Diabetes Mother Heart attack Father Family Status - Relation Status Age at Mother Father Level of Service:94703 [place] OFFICE/OUTPATIENT ESTABLISHED MOD MDM 30 MIN Reason for Visit and Comments: Follow-up [898202] - 6 month routine appointment Hypertension [500761] Varicosities of leg [Other] Percordial pain [Other] Pulmonary hyperteension [Other] Valve Disorder [3372] - 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 Continue hydrochlorothiazide 12.5 mg daily. Please check if patient's blood pressure is still good on this dose of hydrochlorothiazide. Spoke with patient and made him aware. Says his BP has been good and in normal range.NormalUnFirelands Regional Medical CenterReminderson 53-63-2545Ptnybnwoj Reminders From: Gina Sawyer MA (EU - Recalls Lue) To: EU - Recalls Lue; Sent: 10/31/2024 15:56:26 EDT Show up: 09/24/2025 15:56:00 EDT Subject: PSA Reminder/Recall Addendum by Lubna Woo PA-C on October 29, 2024 11:50:15 EDT From: Lubna Woo PA-C (EU - ELGIN/Lue Messages & Refill) To: NANCY Brito; Sent: 10/29/2024 11:50:15 EDT Subject: FW: PSA at [facility] & CT at [facility] Caller Name: MICHAEL KILLIAN; Caller Number: Zoe , M Submitted: Order:PSA Free & Total Details: Blood, Routine collect, 09/24/2025 11:45 EDT, Order for Outside Lab, Nurse collect, ElevatedPSA, Required & Missing, Print Label By Order Location Signed by Lubna Woo PA-C 10/29/2024 11:48:00 EDT Patient informed of PSA and CT results. He is already scheduled for 10/15/2025. Will plan for PSA F/T prior to appt. He prefers [facility] for lab draws. CT abd/pelvis w/wo to be done in 2 years at [facility]. Addendum by Meghan Brito MD on October 28, 2024 11:49:09 EDT From: Meghan Brito MD To: EU - ELGIN/Lue Messages & Refill; Sent: 10/28/2024 11:49:09 EDT Subject: RE: PSA at [facility] & CT at [facility] Caller Name: MICHAEL KILLIAN; Caller Number: Zoe [...] 10/25/2024 09:50:01 EDT Subject: FW: PSA at [facility] & CT at [facility] Caller Name: MICHAEL KILLIAN; Caller Number: Zoe [...] Previous CT: CT AP w/wo con 07/05/23 [facility] - A few small nonspecific pelvic [...] 08:24:30 EDT ! Subject: RE: PSA at [facility] & CT at [facility] Caller Name: MICHAEL KILLIAN; Caller Number: Zoe , M 1) PSA 10/18/23 - see below. Results printed and scanned into chart. 2) CT results attached to message. *I also attached latest OV for reference*. From: Evie Gongora To: EU - Pending Results; Sent: 10/10/2024 08:43:13 EDT Subject: PSA at [facility] & CT at [facility] Due Date/Time: 10/24/2024 08:43:00 EDT Caller Name: MICHAEL KILLIAN; Caller Number: Zoe , M 1) Pt having PSA done next week at [facility] 2) Pt being scheduled for CT AP w/wo con at [facility], can be done within the next few weeks Has 1 year f/up scheduled. Please ensure pt has PSA and CT completed.Normal [facility] BaltimoreCT Abdomen/P[facility]vis w/ + w/o Contraston 42-55-7776TU Abdomen/Pelvis w/ + w/o ContrastExam Date/Time: 10/23/2024 08:02 EDT Reason for Exam: [...] Gio Nassar MD Transcribed by: REJI Technologist: AlexaBarberton Citizens HospitalCHEMISTRY Ordered By: SYSTEM SYSTEM on 24-34-9009Jmvknngoib [Mass/Vol]1.3 mg/dLNormal0.5 - 1.3 mg/dLRemisol UktfcBHI25 mL/min/1.73 m0Kpctok>=59mL/min/1.73 d4Vjzycbg Chem Creatinineon 06-99-4003Jkyqcpitqy [Mass/Vol]1.3 mg/dLNormal0.5-1.3[facility] BaltimoreComment on above:Performed By: #### [id number] #### [facility] [address], [place] [address]qTHZph 74-03-5839dEDY84 mL/min/1.73 r6Ftlwml>=59Barberton Citizens HospitalComment on above:Performed By: #### [id number] #### [facility] [address], [place] [address]Bnjphlzqj glomerular filtration rate (GFR) non- on 71-88-8558ATT/1.73 sq M.predicted among non-blacks MDRD (S/P/Bld) [Vol rate/Area]Estimated glomerular filtration rate (GFR) non- AmericanLow>=60 mL/min/1.73m 2FRegency Hospital ToledoLaboratory - Chemistry and Chemistry - challengeon 93-87-5310Leyithx [Mass/Vol]9.2 mg/dL8.5-10.1FRegency Hospital ToledoChloride [Moles/Vol]106 mmol/G52-178RdikohmvySt. Elizabeth HospitalCO2 [Moles/Vol]29.2 mmol/L21.0-32.0[facility] HospitalCreatinine [Mass/Vol]1.35 mg/dLHigh0.70-1.30St. [facility] HospitalGFR/1.73 sq M.predicted MDRD (S/P/Bld) [Vol rate/Area]mL/min/{1.73_m2}>=60 mL/min/1.73m 2FRegency Hospital ToledoGlucose [Mass/Vol]127 mg/dLHigh 74-106St. [facility] HospitalPotassium [Moles/Vol]4.4 mmol/L3.5-5.1 [facility] Hospitalodium [Moles/Vol]141 mmol/L875-157CndmrwmlbSt. Elizabeth HospitalUrea nitrogen [Mass/Vol]33.0 mg/dLHigh7.0-18.0[facility] HospitalUrea nitrogen/Creatinine [Mass ratio]24.4 mg/mgSt. Elizabeth HospitalNo Panel Informationon 81-68-6176Ltnkguag Specific Antigen Total2.48 ng/mL<=4.00[facility] Hospitalerum or plasma anion gap determinationon 19-54-0125Erxqp gap [Moles/Vol]Serum or plasma anion gap determinationSt. Elizabeth HospitalAmbulatory Visit Summaryon 67-92-0329Abxwbupxrr Visit SummaryAmbulatory Visit Summary MICHAEL KILLIAN :1955 Visit Date:10/10/2024 Ambulatory Visit Instructions Your Diagnosis BPH with urinary obstruction Elevated PSA Enlarged lymph node ED (erectile dysfunction) Former smoker Your Care Team Attending Physician - Meghan Brito MD Primary Care Physician - GIO CAVANAUGH DO This Is Your Medications List folic acid [...] Follow-Up Appointments Monday2025 10:00 AM EDT With: Daryl HAMILTON, Meghan Tucker Where: [facility] [address] You Need to Schedule the Following Appointments Follow Up with Meghan Brito MD, URL, URO When: Where: You Need to Complete the Following CT Abdomen/Pelvis w/ + w/o Contrast, 10/10/24, Routine, Order for future visit, Transport Mode: Ambulatory, Reason: Other (please specify), Reason: Enlarged lymph node, No, No, Enlarged lymph node, pp_set_radiology_subspecialty, Not Required, [facility] Medications What How Much When Why Instructions Unchanged folic acid (folic acid 1 mg Tab) 1 Tablets Unchanged hydrochlorothiazide (hydrochlorothiazide 25 mg Tab) 1 Tablets Unchanged albuterol (albuterol 0.083% Inh Haydee 3 mL) 3 Milliliter Inhalation Every 6 hours as neededfor Shortness of breath or wheezing Q6H and [...] ??? Leaking (dribbling) afte (more content not included)...NormalBarberton Citizens HospitalUrology Office/Clinic Noteon 21-77-5057Hiflzzv Office/Clinic Note Urology Office/Clinic Note Chief Complaint [...] since. 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 Will add PSA. -PSA next week at [facility], will monitor for results 3. Enlarged lymph node (R59.9: Enlarged lymph nodes, unspecified) Prostate MRI 04/03/23 - prior prostatitis. Enlarged R pelvic sidewall and L external iliac lymph nodes, largest measuring 12mm in short axis. Nonspecific finding. 92 ml volume Negative prostate biopsies, see #2. Elected to proceed with continued surveillance. CT AP w/wo con 07/05/23 [facility] - A few small nonspecific pelvic sidewall lymph nodes. A pelvic sidewall lymph node on R side measures 1.0 x 1.7 cm. A pelvic lymph node on L side measures 1.2 x 1.6 cm. Afew additional pelvic lymph nodes on L. [3] No recent imaging. Imaging is due to ensure stability. Will order CT. -CT AP w/wo con at [facility] within the next few months, pt to [...] Follow-up With When Conta (more content not included)...[facility] Comment on above:Result Comment: Electronically Signed By: Meghan Brito MD\.br\Date and Time Signed: 10/10/24 08:52EDT\.br\Electronically Co-Signed By: Evie Gongora\.br\Date and Time Co-Signed: 10/10/24 08:41 RCC68um 42-60-608031Wvnffsjer lab results from 10/04/2024: MD Grace Lott MA Creatinine [...] week. Patient verbalized understanding. Order faxed to [facility]36on 37-69-301190Qdtsxgjwgh Echo form 09/12/2024. Spoke to patient . Advised of Benton Rahman's finding. states she will relay the message to Michael. MD Joana Lott MA Cardiac function and valvular heart disease are stable in comparison to echo 2022, continue current managementNormalUniversity of [facility] Cholesterol in LDL Calc [Mass/Vol]on 10-72-7977Ajxkkbchmlz in LDL [Mass/Vol] Cholesterol in LDL [Mass/volume] in Serum or Plasma by calculationSt. Elizabeth HospitalComment on above:<100 mg/dl FBGNARE204-033 mg/dl NEAR OR ABOVE HNUBMOU779-443 mg/dl BORDERLINE TYTT012-616 mg/dl HIGH>190 mg/dl VERY HIGH Cholesterol in VLDL Calc [Mass/Vol]on 53-70-9257Ilwnjdofqdy in VLDL [Mass/Vol] Cholesterol in VLDL [Mass/volume] in Serum or Plasma by calculationSt. Elizabeth HospitalEstimated glomerular filtration rate (GFR) non- Americanon 12-74-3706WLS/1.73 sq M.predicted among non-blacks MDRD (S/P/Bld) [Vol rate/Area]Estimated glomerular filtration rate (GFR) non- Low>=60 mL/min/1.73m 2FRegency Hospital ToledoLaboratory - Chemistry and Chemistry - challengeon 55-41-1625ASK [Catalytic activity/Vol]23 U/L16-63 [facility] HospitalAST [Catalytic activity/Vol]16 U/L15-37 [facility] HospitalCalcium [Mass/Vol]9.3 mg/dL8.5-10.1FRegency Hospital ToledoChloride [Moles/Vol]103 mmol/L12-464NagkwwmjnSt. Elizabeth HospitalCholesterol [Mass/Vol]214 mg/dLHigh<=200St. [facility] HospitalCholesterol in HDL [Mass/Vol]35 mg/lKVbz11-09YtcjblczzSt. Elizabeth HospitalComment on above:> or =60 mg/dl - LOW CARDIOVASCULAR RISK<40 mg/dl - HIGH CARDIOVASCULAR RISKCO2 [Moles/Vol]29.2 mmol/L21.0-32.0[facility] HospitalCreatinine [Mass/Vol]1.64 mg/dLHigh0.70-1.30St[facility] HospitalGFR/1.73 sq M.predicted MDRD (S/P/Bld) [Vol rate/Area]51 mL/min/{1.73_m2} Low>=60 mL/min/1.73m 2FRegency Hospital ToledoGlucose [Mass/Vol]125 mg/eVGwdw75-879DkthciuecSt. Elizabeth HospitalPotassium [Moles/Vol]4.4 mmol/L 3.5-5.1FAccess Hospital Daytonodium [Moles/Vol]138 mmol/J646-855 [facility] HospitalTriglyceride [Mass/Vol]161 mg/dLHigh<=150 [facility] HospitalUrea nitrogen [Mass/Vol]49.0 mg/dLHigh7.0-18.0 [facility] HospitalUrea nitrogen/Creatinine [Mass ratio]29.9 mg/mg [facility] Hospitalerum or plasma anion gap determinationon 73-75-6824Aaujm gap [Moles/Vol]Serum or plasma anion gap determinationCleveland Clinic Fairview Hospitalerum or plasma total cholesterol/high density lipoprotein (HDL) cholesterol mass juve 14-76-3860Ofksvatoseg.total/Cholesterol in HDL [Mass ratio]Serum or plasma total cholesterol/high density lipoprotein (HDL) cholesterol mass [facility] HospitalComment on above:3.3 - 4.4 LOW RISK4.4 - 7.1 AVERAGE RISK7.1 - 11.0 MODERATE RISK>11.0 HIGH RISK Office Visiton 24-74-9408Roqdrq-up [id number] Michael Killian 1955 M Date Provider Department Center 09/04/2024 50877-SLCZXIGLENNA CHRISTIANSON Family History Problem Relation Age of Onset Diabetes Mother Heart attack Father Family Status - Relation Status Age at Mother Father Level of Service:65732 [place] OFFICE/OUTPATIENT ESTABLISHED MOD MDM 30 MIN Reason for Visit and Comments: 6 month follow up [Other] Heart Murmur [124] Hyperlipidemia [182] Hypertension [653093]NormalUnFirelands Regional Medical Center South Campuso Medical CenterAmbulatory Visit Summaryon 09-10-2231Jvilhzywdb Visit SummaryAmbulatory Visit Summary MICHAEL KILLIAN :1955 Visit Date:03/29/2024 [...] Meghan Brito MD Where: [facility] [address] [place] [address]- You Need to Schedule the Following Appointments Follow Up with Meghan Brito MD, URL, URO When: Comments: 6 mos Where: [address] [place] [phone] Medications What How Much When Why Instructions Unchanged albuterol (albuterol 0.083% Inh Haydee 3 mL) 3 Milliliter Inhalation Every 6 hours as neededfor Shortness of breath or wheezing Q6H and [...] measures any denice (more content not included)... [facility] HospitalUrology Office/Clinic Noteon 60-56-9405Gbwbfpj Office/Clinic NoteUrology Office/Clinic Note Chief Complaint PO TURP HPI [...] lymph nodes, unspecified) Prost (more content not included)...[facility] HospitalComment on above:Result Comment: Electronically Signed By: Meghan Brito MD\.br\Date and Time Signed: 03/29/24 09:47EDT\.br\Electronically Co-Signed By: Carissa Hammonds\.br\Date and Time Co-Signed: 03/29/24 08:53 EDTLon 19-28-6922VGpowbmic: BS24- [id number] Received: 03/07/24 Status: VIJAY Pulido Num: [id number] Spec Type: Surgical Subm Dr: Meghan Brito MD Tissues: A Prostate - Except Radical Resection, Tur, or Needle Biopsy (PROSTATE TISSUE) Procedures: HE/20, Gross/Micro L5 Age/ Patient Sex Location Account Attending Physician Michael Killian 68/M LABELL [id number] Meghan Brito MD SPEC NUM: [id number] RECD: 03/07/24 STATUS: VIJAY ULLOA NUM: [id number] FANNIE: 03/06/[address] [facility] [address]: Meghan Brito MD ENTERED: 03/07/24 [facility] DR: Madeline Lovell SPEC TYPE: Surgical DEPT: BERRY ARGUELLES ENTERED BY: [id number] RECV BY: [id number] ORDERED: HE/20, Gross/Micro L5 ORDERED: HE/20, Gross/Micro [...] cm in aggregate, and weighing 35.4 g. Metallurgical Engineering Technician sections are submitted in cassettes A1- A20 DM Specimen: [id number] Received: 03/07/24 Status: VIJAY Pulido Num: [id number] Spec Type: Surgical Subm Dr: Meghan Brito MD Tissues: A Prostate - Except Radical Resection, Tur, or Needle Biopsy (PROSTATE TISSUE) Procedures: HE/20, Gross/Micro L5 Patient: ConstantinMichael [id number] (Continued) Specimen: [id number] Received: 03/07/24 (Continued) Signed (signature on file) Saad James MD 03/14/24 1541 Specimen: [id number] Received: 03/07/24 Status: VIJAY Pulido Num: [id number] Spec Type: Surgical Subm Dr: Meghan Brito MD Tissues: A Prostate - Except Radical Resection, Tur, or Needle Biopsy (PROSTATE TISSUE) Procedures: HE/20, Gross/Micro L5 Patient: ConstantinMichael [id number] (Continued) Specimen: [id number] Received: 03/07/24 (Continued) Microscopic Description Microscopic examinations are performed supporting the above interpretation CPT Codes 74525 Specimen: [id number] Received: 03/07/24 Status: VIJAY Ashok Num: [id number] Spec Type: Surgical Subm Dr: Meghan Brito MD Tissues: A Prostate - Except Radical Resection, Tur, or Needle Biopsy (PROSTATE TISSUE) Procedures: /20, Gross/Micro L5 Patient: Michael Killian [id number] (Continued) Signed (signature on file) Saad James MD 03/14/24 1541NoErlanger Western Carolina Hospital Physician GroupLaboratory - Chemistry and Chemistry - challengeon 38-30-5243Fkhnogmt [Moles/Vol]104 mmol/T23-740ThlqaxvdfSt. Elizabeth HospitalCO2 [Moles/Vol]32.5 mmol/LHigh21.0-32.0[facility] HospitalPotassium [Moles/Vol]4.5 mmol/L3.5-5.1FRegency Hospital Toledo Sodium [Moles/Vol]136 mmol/J998-684XpxgitizxCleveland Clinic Fairview Hospitalerum or plasma anion gap determinationon 79-92-1305Nwxxx gap [Moles/Vol]4.0 mmol/L [facility] HospitalBasophils Auto (Bld) [#/Vol]on 03-05-2024 Basophils (Bld) [#/Vol]0.0 10 3/uL0.0-0.1FRegency Hospital Toledo Basophils/100 WBC Auto (Bld)on 05-69-2314Hkqmhdzcn/100 WBC (Bld)0.4 %0.2-2.0 [facility] HospitalEosinophils/100 WBC Auto (Bld)on 03-05-2024 Eosinophils/100 WBC (Bld)0.7 %Low0.9-7.0[facility] Erythrocyte distribution width Auto (RBC) [Ratio]on 89-23-0821Ymdhkpqblfj distribution width (RBC) [Ratio]12.9 %11.0-15.0[facility] Hematocrit Auto (Bld) [Volume fraction]on 40-84-3922Muekkxhgui (Bld) [Volume fraction]40.6 %Low42.0-54.0[facility] HospitalHemoglobin [Mass/volume] in Bloodon 78-83-2277Gujaexwlhb (Bld) [Mass/Vol]13.8 g/dLLow 14.0-18.0[facility] HospitalIron binding capacity [Mass/volume] in Serum or Plasmaon 93-58-1546Njuf binding capacity [Mass/Vol]318.0 ug/dL 250.0-450.0St[facility] HospitalIron saturation [Mass Fraction] in Serum or Plasmaon 58-80-6259Mhzr saturation [Mass fraction]24.5 %[facility] HospitalLaboratory - Chemistry and Chemistry - challengeon 05-54-3194Ziwflubba (Vitamin B12) [Mass/Vol]477 pg/uG446-8897RstqshuhfSt. Elizabeth HospitalComment on above:Performed at: [facility] [address] [id number] Director: Alexi Mobley PhD, Phone: [phone] Ferritin [Mass/Vol]270.0 ng/mL26.0-388.0St. [facility] HospitalIron [Mass/Vol]78.0 ug/dL65.0-175.0[facility] HospitalLaboratory - Hematology and Cell countson 87-15-5301Fohhiicy granulocytes/100 WBC (Bld)0.7 % High0.0-0.5FRegency Hospital ToledoLeukocytes [#/volume] corrected for nucleated erythrocytes in Blood by Automated counon 66-53-0461IMX corrected for nucl RBC Auto (Bld) [#/Vol]7.4 10 3/uL4.0-11.0[facility] Lymphocytes Auto (Bld) [#/Vol]on 09-23-3037Toswwlqfdbe (Bld) [#/Vol]1.3 10 3/uL 1.2-3.8St. [facility] HospitalLymphocytes/100 WBC Auto (Bld)on 92-93-5386Elfxlrqphvr/100 WBC (Bld)17.5 %Low20.5-60.0[facility] Auto (RBC) [Entitic mass]on 58-71-1162STA (RBC) [Entitic mass]29.9 pg 25.9-34.0St. [facility] HospitalMCHC Auto (RBC) [Mass/Vol]on 99-08-7409LPJR (RBC) [Mass/Vol]34.0 g/dL29.9-35.2FRegency Hospital ToledoMCV Auto (RBC) [Entitic vol]on 97-06-7557YYK (RBC) [Entitic vol]88.1 fL 80.0-94.0[facility] HospitalMonocytes Auto (Bld) [#/Vol]on 52-21-8703Agxqanswz (Bld) [#/Vol]0.4 10 3/uL0.3-0.8St[facility] HospitalMonocytes/100 WBC Auto (Bld)on 69-33-7862Ynqpzzkvl/100 WBC (Bld)6.0 % 1.7-12.0[facility] HospitalNeutrophils Auto (Bld) [#/Vol]on 57-26-9309Pivlyobexpw (Bld) [#/Vol]5.5 10 3/uL1.4-6.5FRegency Hospital ToledoNeutrophils/100 WBC Auto (Bld)on 10-62-4158Spbaawllpkf/100 WBC (Bld)74.7 % 43.0-75.0[facility]. [facility] HospitalNo Panel Informationon 03-05-2024 Eosinophils # (Auto)0.1 10 3/uL0.0-0.7FRegency Hospital ToledoFolate 7.60 ng/mLLow8.60-58.90St. [facility] HospitalImmature Granulocyte # (Auto)0.05 10 3/uLHigh0.00-0.03St. [facility] HospitalPlatelet mean volume Auto (Bld) [Entitic vol]on 60-89-3443Imcapvfb mean volume (Bld) [Entitic vol]10.0 fL9.5-13.5FRegency Hospital ToledoPlatelets Auto (Bld) [#/Vol] on 22-51-7724Rxxgcauhv (Bld) [#/Vol]193 10 3/iQ583-862ZsqdsgpqeSt. Elizabeth HospitalRBC Auto (Bld) [#/Vol]on 94-68-6326FSC (Bld) [#/Vol]4.61 10 6/uLLow 4.70-6.10[facility] HospitalEstimated glomerular filtration rate (GFR) non- Americanon 04-76-6161ALY/1.73 sq M.predicted among non-blacks MDRD (S/P/Bld) [Vol rate/Area]mL/min/{1.73_m2}>=60St[facility] HospitalLaboratory - Chemistry and Chemistry - challengeon 19-37-9398Gqcisla [Mass/Vol]9.0 mg/dL8.5-10.1FRegency Hospital ToledoChloride [Moles/Vol] 104 mmol/N41-261YrtcwicyiSt. Elizabeth HospitalCO2 [Moles/Vol]27.5 mmol/L 21.0-32.0[facility] HospitalCreatinine [Mass/Vol]1.07 mg/dL 0.70-1.30[facility] HospitalGFR/1.73 sq M.predicted MDRD (S/P/Bld) [Vol rate/Area]mL/min/{1.73_m2}>=60[facility] HospitalGlucose [Mass/Vol]114 mg/wGWrba25-381QholfbicwSt. Elizabeth HospitalPotassium [Moles/Vol]4.2 mmol/L3.5-5.1FAccess Hospital Daytonodium [Moles/Vol] 139 mmol/D236-561HmxbkzfiwSt. Elizabeth HospitalUrea nitrogen [Mass/Vol]16.0 mg/dL7.0-18.0[facility] HospitalUrea nitrogen/Creatinine [Mass ratio]15.0 mg/mgCleveland Clinic Fairview Hospitalerum or plasma anion gap determinationon 24-13-3523Tjzmr gap [Moles/Vol]11.7 mmol/LFRegency Hospital ToledoBMPon 31-33-7026Kdthu gap [Moles/Vol]9 mmol/LNormal6-16Barberton Citizens HospitalComment on above:Performed By: #### [id number] #### [facility] [address], [place] [address]Tnbglws [Mass/Vol]9.4 mg/dLNormal8.9-11.1FHenry County HospitalComment on above:Performed By: #### [id number] #### [facility] [address], [place] [address]Ivsqvvwh [Moles/Vol]104 mmol/CGuhdgj185-340IuxvxjBarberton Citizens HospitalComment on above:Performed By: #### [id number] #### [facility] [address], [place] [address]JW6 [Moles/Vol]30 mmol/WUtmndn57-15TsztdwBarberton Citizens Hospital Comment on above:Performed By: #### [id number] #### [facility] [address], [place] [address]Shrgbpvqmj [Mass/Vol]1.3 mg/dLNormal0.5-1.3FHenry County HospitalComment on above:Performed By: #### [id number] #### [facility] [address], [place] [address]Wmsdebn [Mass/Vol]113 mg/qCRlblxf48-162FzfdojBarberton Citizens HospitalComment on above:Performed By: #### [id number] #### [facility] [address], [place] [address]Jkqegdpqr [Moles/Vol]4.3 mmol/LNormal3.5-5.3FHenry County HospitalComment on above:Performed By: #### [id number] #### [facility] [address], [place] [address]Fsqhqt [Moles/Vol]139 mmol/XKqvhmn373-178UpqjkpBarberton Citizens HospitalComment on above:Performed By: #### [id number] #### [facility] [address], [place] [address]Vlbm nitrogen [Mass/Vol]21 mg/dLNormal5-21Barberton Citizens HospitalComment on above:Performed By: #### [id number] #### [facility] [address], [place] [address]Zozp nitrogen/Creatinine [Mass ratio]16 No UptwfLratvj02-59 [facility] HospitalComment on above:Performed By: #### [id number] #### [facility] [address], [place] [address]KAU w/ Auto Diffon 09-16-9294Uyqgswydn/100 WBC (Bld)2.0 %Normal 0.0-2.0Bar[facility]ton Citizens HospitalComment on above:Performed By: #### [id number] #### [facility] [address] [place] [address]Pyqpyuzpu/Leukocytes Auto (Bld) [Pure # fraction]0.1 E9/LNormal 0.0-0.2FHenry County HospitalComment on above:Performed By: #### [id number] #### [facility] [address] [place] [address]Azgyhmryflf (Bld) [#/Vol]0.3 E9/LNormal0.0-0.5FHenry County HospitalComment on above:Performed By: #### [id number] #### [facility] Laboratory [address] [place] [address] [id number]/100 WBC (Bld)4.8 %Normal0.0-8.0[facility] HospitalComment on above:Performed By: #### [id number] #### [facility] [address] [place] [address] 15367Wulmzyscamb distribution width (RBC) [Ratio]14.1 %Normal 10.9-14.2FHenry County HospitalComment on above:Performed By: #### [id number] #### [facility] [address] [place] [address] 64728Qlbjzlzkln (Bld) [Volume fraction]38.5 %Jcfqqs01.7-49.0[facility] HospitalComment on above:Performed By: #### [id number] #### [facility] [address] [place] [address] 32619Kdnsitjpvr (Bld) [Mass/Vol]13.7 g/mRBrrbpl37.5-17.5FHenry County HospitalComment on above:Performed By: #### [id number] #### [facility] [address] [place] [address] 87200Hootvpjfhjd (Bld) [#/Vol]1.6 E9/LNormal1.0-4.0[facility] HospitalComment on above:Performed By: #### [id number] #### [facility] [address] [place] [address] 93219Dudyuhbypda/100 WBC (Bld)29.7 %Rbwdpj17.0-50.0[facility] HospitalComment on above:Performed By: #### [id number] #### [facility] [address] [place] [address] 43854XAS (RBC) [Entitic mass]30.3 imBkdpmr83.0-34.0[facility] HospitalComment on above:Performed By: #### [id number] #### [facility] [address] [place] [address] 81896CPVU (RBC) [Mass/Vol]35.5 g/yEPedixg73.4-36.0[facility] HospitalComment on above:Performed By: #### [id number] #### [facility] [address] [place] [address] 21000NPP (RBC) [Entitic vol]85.3 dAQatwhd27.0-100.0[facility] HospitalComment on above:Performed By: #### [id number] #### [facility] [address] [place] [address] 76383Czbrodsga (Bld) [#/Vol]0.5 E9/LNormal0.2-1.0[facility] HospitalComment on above:Performed By: #### [id number] #### [facility] [address] [place] [address] 82105Mghtyoohgln (Bld) [#/Vol]3.1 E9/LNormal2.0-7.5FHenry County HospitalComment on above:Performed By: #### [id number] #### [facility] [address] [place] [address] 48244Hjocodqebeh/100 WBC (Bld)55.2 %Ihpsel63.0-75.0[facility] HospitalComment on above:Performed By: #### [id number] #### [facility] [address], [place] [address]Zyicjhtg354.0 E9/EQalerq659.0-500.0[facility] Comment on above:Performed By: #### [id number] #### [facility] [address], [place] [address]Gunnhdjk mean volume (Bld) [Entitic vol]8.6 fLNormal6.4-10.8 [facility] HospitalComment on above:Performed By: #### [id number] #### [facility] [address] [place] [address] 01602QXK (Bld) [#/Vol]4.5 E12/LNormal4.3-5.9[facility] HospitalComment on above:Performed By: #### [id number] #### [facility] [address] [place] [address] 03692NXL corrected for nucl RBC Auto (Bld) [#/Vol]5.5 E9/LNormal 4.0-11.0[facility] HospitalComment on above:Performed By: #### [id number] #### [facility] [address] [place] [address] 38107JRSMFBOQFPubhlcj By: SYSTEM SYSTEM on 86-29-1020Rwmtm gap [Moles/Vol]9 mmol/LNormal6 - 16 mEq/LRemisol ChemCalcium [Mass/Vol]9.4 mg/dL Normal8.9 - 11.1 mg/dLRemisol ChemChloride [Moles/Vol]104 mmol/ISpiixy854 - 111 mmol/LRemisol ChemCO2 [Moles/Vol]30 mmol/JXqfyyq33 - 31 mmol/LRemisol Chem Creatinine [Mass/Vol]1.3 mg/dLNormal0.5 - 1.3 mg/dLRemisol CwkknXRW24 mL/min/1.73 h2Xgfqyi>=59mL/min/1.73 f8Esjwlqk ChemGlucose [Mass/Vol]113 mg/dL Enexqt01 - 199 mg/dLRemisol ChemPotassium [Moles/Vol]4.3 mmol/LNormal3.5 - 5.3 mmol/LRemisol ChemSodium [Moles/Vol]139 mmol/OEczhte610 - 145 mmol/LRemisol Chem Urea nitrogen [Mass/Vol]21 mg/dLNormal5 - 21 mg/dLRemisol ChemUrea nitrogen/Creatinine [Mass ratio]16 mg/brCdunky33 - 20Remisol ChemCOAGULATION Ordered By: Angela Hernandez on 39-59-0590zUWU Coag (PPP) [Time]35.0 bUkfpld59.1 - 36.5 second(s)[facility] Auto CoagComment on above:Interpretive Data: Parameter 15 days - 4 weeks 1 - [...] the same coagulation reagent and instrumentation as [facility]. Currently there are no coagulation studies available worldwide for children to 14 days, andno normal ranges. Heparin therapeutic range (represented by Anti-Factor Xa activity of 0.2 - 0.4 U/mL) corresponds to PTT of 56.6 - 109.0 sec.INR Coag (PPP) [Relative time]1.01 {INR}Invalid Interpretation CodeMCCURTAIN MEMORIAL [facility] Auto CoagComment on above:Interpretive Data: INR results are specifically intended to assess patients stabilized on long-term Anticoagulation therapy suggested INR s Less Intensive Anticoagulation 2.0 3.0 Conventional Range 3.0 4.5PT Coag (PPP) [Time]11.3 sNormal9.4 - 12.5 second(s) [facility] Auto CoagComment on above:Interpretive Data: 15 days - 4 weeks 1 - [...] the same coagulation reagent and instrumentation as [facility]. Currently there are no coagulation studies available worldwide for children to 14 days, andno normal ranges.HEMATOLOGYOrdered By: SYSTEM SYSTEM on 48-00-6007Bazbvpvyz/100 WBC (Bld)2.0 %Normal0.0 - 2.0 %Remisol HemeBasophils/Leukocytes Auto (Bld) [Pure # fraction]0.1 E9/LNormal0.0 - 0.2 E9/LRemisol HemeEosinophils (Bld) [#/Vol]0.3 E9/LNormal0.0 - 0.5 E9/LRemisol HemeEosinophils/100 WBC (Bld)4.8 %Normal0.0 - 8.0 %Remisol HemeErythrocyte distribution width (RBC) [Ratio]14.1 %Peqhoz58.9 - 14.2 %Remisol HemeHematocrit (Bld) [Volume fraction]38.5 %Drmzjd11.7 - 49.0 % Remisol HemeHemoglobin (Bld) [Mass/Vol]13.7 g/vWCnqhhv18.5 - 17.5 gm/dLRemisol HemeLymphocytes (Bld) [#/Vol]1.6 E9/LNormal1.0 - 4.0 E9/LRemisol Heme Lymphocytes/100 WBC (Bld)29.7 %Payliu31.0 - 50.0 %Remisol HemeMCH (RBC) [Entitic mass]30.3 flZsnyss65.0 - 34.0 pgRemisol HemeMCHC (RBC) [Mass/Vol]35.5 g/dL Phasuh38.4 - 36.0 gm/dLRemisol HemeMCV (RBC) [Entitic vol]85.3 cOHyekji43.0 - 100.0 fLRemisol HemeMonocytes (Bld) [#/Vol]0.5 E9/LNormal0.2 - 1.0 E9/LRemisol HemeMonocytes/100 WBC (Bld)8.3 %Normal4.0 - 14.0 %Remisol HemeNeutrophils (Bld) [#/Vol]3.1 E9/LNormal2.0 - 7.5 E9/LRemisol HemeNeutrophils/100 WBC (Bld)55.2 % Iggoaj35.0 - 75.0 %Remisol HurvJywbrpyj597.0 E9/EOqveqf984.0 - 500.0 E9/LRemisol HemePlatelet mean volume (Bld) [Entitic vol]8.6 fLNormal6.4 - 10.8 fLRemisol HemeRBC (Bld) [#/Vol]4.5 E12/LNormal4.3 - 5.9 E12/LRemisol HemeWBC corrected for nucl RBC Auto (Bld) [#/Vol]5.5 E9/LNormal4.0 - 11.0 E9/LRemisol HemePT & PTTon 17-55-4034qWOT Coag (PPP) [Time]35.0 second(s)Okyioc35.1-36.5[facility] Hospital Of BaltimoreComment on above:Result Comment: Parameter 15 days - 4 weeks 1 - [...] the same coagulation reagent and instrumentation as [facility]. Currently there are no coagulation studies available worldwide for children to 14 days, andno normal ranges. Heparin therapeutic range (represented by Anti-Factor Xa activity of 0.2 - 0.4 U/mL) corresponds to PTT of 56.6 - 109.0 sec.Performed By: #### [id number] #### [facility] [address], [place] [address]CRF Coag (PPP) [Relative time]1.01 {INR}Invalid Interpretation CodeBarberton Citizens HospitalComment on above:Result Comment: INR results are specifically intended to assess patients stabilized on long-term Anticoagulation therapy suggested INR?s ?Less Intensive Anticoagulation? 2.0 ? 3.0 Conventional Range 3.0 ? 4.5Performed By: #### [id number] #### [facility] [address], [place] [address]KX Coag (PPP) [Time]11.3 second(s)Normal9.4-12.5[facility]inai Hospital Of BaltimoreComment on above:Result Comment: 15 days - 4 weeks 1 - [...] the same coagulation reagent and instrumentation as [facility]. Currently there are no coagulation studies available worldwide for children to 14 days, andno normal ranges.Performed By: #### [id number] #### [facility] Laboratory [address], [place] [address]DL with Cult Rflxon 44-19-1071Ceuxzfluk Ql (U)NegativeNormal NegativeBarberton Citizens HospitalComment on above:Performed By: #### [id number] #### [facility] Laboratory [address], [place] [address]Nwflwkz (U)ClearNormalClearBarberton Citizens HospitalComment on above:Performed By: #### [id number] #### [facility] [address], [place] [address]Zaynz (U)Light-YellowNormalYellowBarberton Citizens Hospital Comment on above:Result Comment: Microscopic readings are only performed on those samples that meet specific criteria set forth by [facility].Performed By: #### [id number] #### [facility] [address], [place] [address]Zlqjrsq Ql (U)NegativeNormalNegUniversity Hospitals Conneaut [facility] Center Comment on above:Performed By: #### [id number] #### [facility] [address], [place] [address]Pmxrvlfvtt Auto test strip (U) [Mass/Vol]NegativeNormalNegative [facility] HospitalComment on above:Performed By: #### [id number] #### [facility] [address], [place] [address]Pvevfpj Auto test strip Ql (U)NegativeNormalNegUniversity Hospitals Conneaut Medical CenterComment on above:Performed By: #### [id number] #### [facility] [address], [place] [address]Fmduabkfr esterase Auto test strip Ql (U)NegativeNormalNegative [facility] HospitalComment on above:Performed By: #### [id number] #### [facility] [address] [place] [address]Wjlsqfj Auto test strip Ql (U)NegativeNormalNegUniversity Hospitals Conneaut Medical CenterComment on above:Performed By: #### [id number] #### [facility] [address], [place] [address]uT (U)5.5 [pH]Invalid Interpretation Code5.0-9.0[facility] HospitalComment on above:Performed By: #### [id number] #### [facility] [address], [place] [address]Evhaqru Ql (U)NegativeNormalNegUniversity Hospitals Conneaut [facility] Center Comment on above:Performed By: #### [id number] #### [facility] [address], [place] [address]Yzviidfs gravity (U) [Rel density]1.012Invalid Interpretation Code1.005-1.030[facility] Citizens HospitalComment on above:Performed By: #### [id number] #### [facility] [address], [place] [address]Gkhejooendvf (U) [Mass/Vol]NegativeNormalNegativeBarberton Citizens HospitalComment on above:Performed By: #### [id number] #### [facility] [address], [place] [address]Mrnh of Urine collection methodClean CatchNoSelect Medical Specialty Hospital - Boardman, IncComment on above:Performed By: #### [id number] #### [facility] [address], [place] [address]VQLOVIXWSXBwqsrdp By: SYSTEM SYSTEM on 15-82-4311Bitbxpizq Ql (U)NegativeNormalNegativemg/dLFT UA Auto SSClarity (U)Clear (12/25/23 7:53 AM)NormalClearFSOUTHWESTERN [facility] UA Auto SSColor (U)Light-Yellow 1 (12/25/23 7:53 AM)NormalYellowMCCURTAIN [facility] UA Auto SSComment on above:Interpretive Data: Microscopic readings are only performed on those samples that meet specific criteria set forth by [facility].Glucose Ql (U) NegativeNormalNegativemg/dLFT UA Auto SSHemoglobin Auto test strip (U) [Mass/Vol]NegativeNormalNegativemg/dLFT UA Auto SSKetones Auto test strip Ql (U)NegativeNormalNegativemg/dLFT UA Auto SSLeukocyte esterase Auto test strip Ql (U)NegativeNormalNegativeLeu/uLFT UA Auto SSNitrite Auto test strip Ql (U) NegativeNormalNegativemg/dLFT UA Auto SSpH (U)5.5 *NA* (12/25/23 7:53 AM)Invalid Interpretation Code5.0 - 9.0[facility] UA Auto SSProtein Ql (U)NegativeNormalNegativemg/dLFT UA Auto SSSpecific gravity (U) [Rel density] 1.012 *NA* (12/25/23 7:53 AM)Invalid Interpretation Code1.005 - 1.030[facility] UA Auto SS Urobilinogen (U) [Mass/Vol]NegativeNormalNegativemg/dLMCCURTAIN [facility]ORIAL HOSP[facility] UA Auto SSURINALYSIS Ordered By: Genevieve Quintero on 33-82-4859YD Spec DescClean Catch (12/25/23 7:53 AM)NormalMCCURTAIN [facility]IAL [facility] UA Auto SSScreenson 94-41-1720Oibjdti [id number]#1.00TIFFNormECU Health Edgecombe Hospitaler [facility] Hospital of [id number]#1.00[facility] Grant Medical CenterConsent for Procedure/Surgeryon 52-05-5023Vfoyrte for Procedure/[id number]#1.00TIFOhioHealth O'Bleness HospitalPatient Educationon 05-75-6451Nmfinxw EducationUrology Transurethral Resection of the Prostate, Care After [...] some small blood clots in your urine. Theseare normal. Follow these instructions at home: Medicines ? Take vysk-aph-bzfdxso and prescription medicines only as told by [...] take short walks every 1?2 hours. This isimportant to improve blood flow and breathing. Ask [...] keep your urine pale yellow. ? Take xsgk-knn-kkxvccc or prescription medicines. ? Eat foods that [...] provider. Document Revised: 03/08/2022 Document Reviewed: 03/08/2022 Telepathy Patient Education ? 2022 [employer]. Transurethral Resection o (more content not included)...[facility] HospitalUrology Office/Clinic Noteon 17-65-5960Wkzyqhk Office/Clinic NoteChief Complaint 4m PVR HPI Staff 4 m DX: Elevated PSA, BPH, Enlarged Lymph Node & ED *Alfuzosin 10mg QD therapy. S/P Urocuff 06/30/23 S/P Cysto 07/31/23 (due to gross hematuria after Urocuff) NEG Cytology 06/30/23 CTU 07/05/23 *4.4cm Simple Cyst on Lt Kidney. Enlarged Prostate that protrudes into base of bladder.Borderline enlarged pelvic lymph nodes bilaterally. CMP 11/24/23 [...] nodes. A pelvic jameel (more content not included)...[facility] HospitalComment on above:Result Comment: Electronically Signed By: Meghan Brito MD\.br\Date and Time Signed: 11/29/23 16:11EDT\.br\Electronically Co-Signed By: Carissa Hammonds\.br\Date and Time Co-Signed: 11/29/23 11:34 EDTBasophils Auto (Bld) [#/Vol]on 26-60-2518Rykqfxywu (Bld) [#/Vol]0.1 10 3/uL0.0-0.1FRegency Hospital ToledoBasophils/100 WBC Auto (Bld)on 80-85-4339Ygtdeyqaj/100 WBC (Bld)1.4 %0.2-2.0[facility]. [facility] HospitalCholesterol in LDL Calc [Mass/Vol]on 79-53-5597Jdwmfzwcrbi in LDL [Mass/Vol]135.0 mg/dLSt. Elizabeth HospitalComment on above:<100 mg/dl NJWQKEK109-872 mg/dl NEAR OR ABOVE GKWJOEC140-244 mg/dl BORDERLINE JDDX266-526 mg/dl HIGH>190 mg/dl VERY HIGH Cholesterol in VLDL Calc [Mass/Vol]on 83-61-2905Mevribobsaz in VLDL [Mass/Vol] 19.2 mg/dLSt. Elizabeth HospitalEosinophils/100 WBC Auto (Bld)on 24-07-4032Uswenskqyjl/100 WBC (Bld)4.8 %0.9-7.0[facility] Erythrocyte distribution width Auto (RBC) [Ratio]on 98-04-8093Nlxrullzbxx distribution width (RBC) [Ratio]13.2 %11.0-15.0[facility] Estimated glomerular filtration rate (GFR) non- Americanon 11-24-2023 GFR/1.73 sq M.predicted among non-blacks MDRD (S/P/Bld) [Vol rate/Area]51 mL/min/{1.73_m2}>=60St. [facility] HospitalGlobulin Calc (S) [Mass/Vol]on 98-92-0074Znacfsda (S) [Mass/Vol]3.5 g/dLSt. Elizabeth HospitalHematocrit Auto (Bld) [Volume fraction]on 91-74-7661Iayduuicsw (Bld) [Volume fraction]39.3 %42.0-54.0[facility] HospitalHemoglobin [Mass/volume] in Bloodon 73-66-9905Tinizcutgc (Bld) [Mass/Vol]12.9 g/dL14.0-18.0 [facility] HospitalLaboratory - Chemistry and Chemistry - challengeon 27-48-7105Lkaibna [Mass/Vol]3.8 g/dL3.4-5.0[facility] HospitalALP [Catalytic activity/Vol]72 U/W36-002UgajcedrqSt. Elizabeth HospitalALT [Catalytic activity/Vol]25 U/A58-52HeffksptkSt. [facility] Hospital AST [Catalytic activity/Vol]17 U/H83-57GivdncjnpSt. [facility] Hospital Bilirubin [Mass/Vol]0.9 mg/dL0.2-1.0[facility] HospitalCalcium [Mass/Vol]8.9 mg/dL8.5-10.1FRegency Hospital ToledoChloride [Moles/Vol] 105 mmol/H20-007ZabsqmhemSt. Elizabeth HospitalCholesterol [Mass/Vol]188 mg/dL <=200St. [facility] HospitalCholesterol in HDL [Mass/Vol]34 mg/dL40-60 St. [facility] HospitalComment on above:> or =60 mg/dl - LOW CARDIOVASCULAR RISK<40 mg/dl - HIGH CARDIOVASCULAR RISKCO2 [Moles/Vol]28.1 mmol/L21.0-32.0[facility] HospitalCreatinine [Mass/Vol]1.40 mg/dL 0.70-1.30[facility] HospitalGFR/1.73 sq M.predicted MDRD (S/P/Bld) [Vol rate/Area]mL/min/{1.73_m2}>=60[facility] HospitalGlucose [Mass/Vol]114 mg/lP72-055YsycetdczSt. Elizabeth HospitalPotassium [Moles/Vol] 4.2 mmol/L3.5-5.1FRegency Hospital ToledoProtein [Mass/Vol]7.3 g/dL 6.4-8.2FAccess Hospital Daytonodium [Moles/Vol]142 mmol/J905-336 [facility] HospitalTriglyceride [Mass/Vol]96 mg/dL<=150St. [facility] HospitalUrea nitrogen [Mass/Vol]22.0 mg/dL7.0-18.0[facility] HospitalUrea nitrogen/Creatinine [Mass ratio]15.7 mg/mgSt. Elizabeth HospitalLaboratory - Hematology and Cell countson 11-24-2023 Immature granulocytes/100 WBC (Bld)0.2 %0.0-0.5FRegency Hospital Toledo Leukocytes [#/volume] corrected for nucleated erythrocytes in Blood by Automated counon 51-84-8096MDG corrected for nucl RBC Auto (Bld) [#/Vol]5.0 10 3/uL 4.0-11.0[facility]. [facility] HospitalLymphocytes Auto (Bld) [#/Vol]on 52-97-0640Zdwdktgrsmi (Bld) [#/Vol]1.6 10 3/uL1.2-3.8[facility]. [facility] HospitalLymphocytes/100 WBC Auto (Bld)on 30-42-5984Duwmqrcaxxc/100 WBC (Bld)31.0 % 20.5-60.0[facility] SystemH Auto (RBC) [Entitic mass]on 29-27-9983BMH (RBC) [Entitic mass]28.4 pg25.9-34.0[facility]. [facility] HospitalMCHC Auto (RBC) [Mass/Vol]on 11-76-0380VJYP (RBC) [Mass/Vol]32.8 g/dL 29.9-35.2FRegency Hospital ToledoMCV Auto (RBC) [Entitic vol]on 75-82-9072HGK (RBC) [Entitic vol]86.6 fL80.0-94.0[facility] HospitalMonocytes Auto (Bld) [#/Vol]on 23-36-7482Ffjciwfox (Bld) [#/Vol]0.4 10 3/uL0.3-0.8[facility] HospitalMonocytes/100 WBC Auto (Bld)on 62-81-1198Ddeuatnyb/100 WBC (Bld)8.1 %1.7-12.0[facility] Neutrophils Auto (Bld) [#/Vol]on 35-18-0067Htwyiimjnpn (Bld) [#/Vol]2.8 10 3/uL 1.4-6.5FRegency Hospital ToledoNeutrophils/100 WBC Auto (Bld)on 39-16-1714Nqjmcsythyr/100 WBC (Bld)54.5 %43.0-75.0[facility] HospitalNo Panel Informationon 27-82-6173Keizcpmgrdp # (Auto)0.2 10 3/uL0.0-0.7 [facility] HospitalImmature Granulocyte # (Auto)0.01 10 3/uL 0.00-0.03[facility] HospitalProstate Specific Antigen Screen6.70 ng/mL<=4.00[facility]. [facility] HospitalPlatelet mean volume Auto (Bld) [Entitic vol]on 51-81-6263Ktkwaztr mean volume (Bld) [Entitic vol]10.3 fL 9.5-13.5FRegency Hospital ToledoPlatelets Auto (Bld) [#/Vol]on 17-08-2441Cmgjnwwkl (Bld) [#/Vol]177 10 3/bF076-243ZjrifjlmdSt. Elizabeth HospitalRBC Auto (Bld) [#/Vol]on 02-36-3848EKN (Bld) [#/Vol]4.54 10 6/uL4.70-6.10 [facility] Hospitalerum or plasma albumin/globulin mass ratioon 41-34-2736Xjcmocp/Globulin [Mass ratio]1.1 {ratio}[facility] Hospitalerum or plasma anion gap determinationon 68-06-5203Ebbon gap [Moles/Vol] 13.1 mmol/LFAccess Hospital Daytonerum or plasma total cholesterol/high density lipoprotein (HDL) cholesterol mass juve 11-24-2023 Cholesterol.total/Cholesterol in HDL [Mass ratio]5.5 {ratio}[facility]. [facility] HospitalComment on above:3.3 - 4.4 LOW RISK4.4 - 7.1 AVERAGE RISK7.1 - 11.0 MODERATE RISK>11.0 HIGH RISKISTAT XRay CREon 48-21-8984LPRXG GFR55.088 NormalThe Unc Health Pardee Physician GroupComment on above:Result Comment: PERFORMED BY: [place] [address] PATHOLOGIST AUTO MACHINIST SARAH BETH SILVEIRA M.D.Performed By: #### ISCRE #### [address]MR prostate wo/w conon 49-07-5289KJ prostate wo/w con [facility] Main [place] [address] [place] [address] MRI Report Signed Patient: Michael Killian MR#: [id number] : 1955 Acct:[id number] Age/Sex: 68 / M ADM Date: 04/03/23 Loc: Room: Type: [facility] Attending Dr: Theresa Fleming PA-C Copies [...] Cleary Jr., D.OReinier04/03/2023 1:40 PM Dictation Location: [facility]--15 Transcribed By: [facility] 04/03/23 1340 Dictated By: Leandro Cleary Jr, DO 04/03/23 1334 Signed By: 04/03/23 1340[facility] Physician GroupWhole blood creatinine measurementOrdered By: Theresa Fleming on 35-47-1631Qjjdhkyekx [Mass/Vol]1.4 mg/dLHigh0.6-1.3FRegency Hospital ToledoComment on above:ER/ESD physician is notified/shown all ISTAT results.Critical values may be confirmed by laboratorytesting ifdeemed necessary by ER attending doctor.Result Comment: ER/ESD physician is notified/shown all ISTAT results. Critical values may be confirmed by laboratory testing if deemed necessary by ER attending doctor.Performed By: #### ISCRE #### [place] [address] USAPROF 14(COMP METB)on 34-03-1916Kkhkypb [Mass/Vol]3.9 g/dL Normal3.4-5.0White HospitalComment on above:Performed By: #### BMP #### [facility] [address] [place] [address] Dr. Duy JamesAlbumin/Globulin [Mass ratio]1.1 {ratio}NormalThe [facility] HospitalComcorewell health greenville hospital on above:Performed By: #### BMP #### [facility] [address] [address] [address] Duy Ku [Catalytic activity/Vol]70 U/AAjdqmp96-748Eif [facility] HospitalComcorewell health greenville hospital on above:Performed By: #### BMP #### [facility] [address] [address] [address] Duy Aguirre [Catalytic activity/Vol]26 U/GHkyqmq33-65Wen [facility] HospitalComcorewell health greenville hospital on above:Performed By: #### BMP #### [facility] [address] [address] [address] Duy Morocho gap [Moles/Vol]13.1 mmol/LNormalThe [facility] Comment on above:Performed By: #### BMP #### [facility] [address] [address] [address] Duy JamesAST [Catalytic activity/Vol]17 U/CIvdekf14-34Omp [facility] HospitalComment on above:Performed By: #### BMP #### [facility] [address] [address] [address] Duy JamesBilirubin [Mass/Vol]0.6 mg/dLNormal0.2-1.0The [facility] Comment on above:Performed By: #### BMP #### [facility] [address] [place] [address] Dr. Duy JamesCalcium [Mass/Vol]9.0 mg/dLNormal8.5-10.1The [facility] Comment on above:Performed By: #### BMP #### [facility] [address] [place] [address] Dr. Duy JamesChloride [Moles/Vol]106 mmol/VUgpypo72-020Qzf [facility] Comment on above:Performed By: #### BMP #### [facility] [address] [place] [address] Dr. Duy JamesCO2 [Moles/Vol]28.5 mmol/JKxcqlu03.0-32.0The [facility] Comment on above:Performed By: #### BMP #### [facility] [address] [place] [address] Dr. Duy JamesCreatinine [Mass/Vol]1.22 mg/dLNormal0.70-1.30The [facility] HospitalComment on above:Performed By: #### BMP #### [facility] [address] [place] [address] Dr. Mcfadden ChangEGFR-AF GREENLANDIC>60Normal>=60The [facility] HospitalComment on above:Performed By: #### BMP #### [facility] [address] [place] [address] Dr. Duy MattaGFR-NON AF SWSHPOBB94 mL/min/1.15z9Czflugxcmk low>=60The [facility] HospitalComment on above:Performed By: #### BMP #### [facility] [address] [address] [address] Duy JamesGlobulin (S) [Mass/Vol]3.7 g/dLNormMadison HealthComment on above:Performed By: #### BMP #### [facility] [address] [address] [address] Duy JamesGlucose [Mass/Vol]113 mg/dLCritically bwhc67-925Qhv [facility] HospitalComment on above:Performed By: #### BMP #### [facility] [address] [place] [address] Dr. Duy JamesPotassium [Moles/Vol]4.6 mmol/LNormal3.5-5.1The [facility] Comment on above:Performed By: #### BMP #### [facility] [address] [place] [address] Dr. Duy JamesProtein [Mass/Vol]7.6 g/dLNormal6.4-8.2The [facility] Comment on above:Performed By: #### BMP #### [facility] [address] [place] [address] Dr. Duy JamesSodium [Moles/Vol]143 mmol/RQfmksi268-502Gzr [facility] Comment on above:Performed By: #### BMP #### [facility] Laboratory [address] [place] [address] Dr. Duy JamesUrea nitrogen [Mass/Vol]12.0 mg/dLNormal7.0-18.0The [facility] County HospitalComment on above:Performed By: #### BMP #### [facility] [address] [place] [address] Dr. Duy Richardson nitrogen/Creatinine [Mass ratio]9.8 mg/mgNormMadison HealthComment on above:Performed By: #### BMP #### [facility] [address] [place] [address] Dr. Duy Esqueda CHEST 2 [facility] [id number] CHEST 2 VEXAM: XR CHEST 2 V HISTORY: Chronic obstructive pulmonary disease with acute lower respiratory infection COMPARISON: None. TECHNIQUE: PA and lateral views of the chest. FINDINGS: The cardiomediastinal silhouette is normal. No focal consolidation is identified. There is no pneumothorax. No pleural effusion is noted. The osseous structures are intact. IMPRESSION: No acute cardiopulmonary process. Electronically authenticated by: LIDYA VALE Date: 2022-11-07 09:[address] [place], [place] [address] [id number] examination of blood, cultureCulture Observations: Positive blood culture. Aerobic & Anaerobic [...] Rifampicin <=0.5 S F Trimethoprim/Sulfamethoxazole <=10 S FNormalThe [facility] County HospitalComment on above:Performed By: #### BMP #### [facility] [address] [place] [address] Dr. Duy GipsonPATITIS PANEL, ACUTEon [id number] ScreenNegativeNormal NegativeThe [facility] County HospitalComment on above:Performed By: #### CBC #### [facility] [address] [place] [address] Dr. Duy Mabry ABNon-ReactiveNormalNon ReactiveThe [facility] HospitalComment on above:Performed By: #### CBC #### [facility] [address] [place] [address] Dr. Duy Elizalde A Ab, IgMNegativeNormalNegativeThe [facility] HospitalComment on above:Performed By: #### CBC #### [facility] [address] [place] [address] Dr. Duy Fraire Core Ab, IgMNegativeNormalNegativeWhite Hospital Comment on above:Performed By: #### CBC #### [facility] [address] [place] [address] Dr. Duy JamesInterpretation:CommentSelect Medical Cleveland Clinic Rehabilitation Hospital, Edwin ShawComment on above:Result Comment: Not infected with HCV unless early or acute infection is suspected (which may be delayed in an immunocompromised individual), or other evidence exists to indicate HCV infection.Performed By: #### CBC #### [facility] [address] [place] [address] Dr. Duy Peterson W MANUAL DIFFon [id number] LYMPH #NormalWhite HospitalComment on above:Performed By: #### BMP #### [facility] [address] [place] [address] Dr. Duy MuellerYPICAL LYMPH %NormalWhite HospitalComment on above: Performed By: #### BMP #### [facility] [address] [place] [address] Dr. Duy Thorne #0.0 103/ulNormal0.0-0.3The [facility] HospitalComment on above:Performed By: #### BMP #### [facility] [address] [place] [address] Dr. Duy Thorne %0 %Normal0-5The [facility] HospitalComment on above:Performed By: #### BMP #### [facility] [address] [place] [address] Dr. Duy Farris #0.00 103/ulNormal0.00-0.10The [facility] HospitalComment on above:Performed By: #### BMP #### [facility] [address] [place] [address] Dr. Duy Farris %0.0 %Critically low0.2-2.0White HospitalComment on above:Performed By: #### BMP #### [facility] [address] [address] [address] Duy Rodriguez #NormalThe [facility] County HospitalComment on above:Performed By: #### BMP #### [facility] [address] [address] [address] Duy JamesBLAST %NormalThe [facility] County HospitalComment on above:Performed By: #### BMP #### [facility] [address] [address] [address] Duy JamesCORRECTED WBCNormal4.0-11.0The [facility] HospitalComment on above: Performed By: #### BMP #### [facility] [address] [place] [address] Dr. Duy Fleming #0.00 103/ulNormal0.00-0.70The [facility] HospitalComment on above:Performed By: #### BMP #### [facility] [address] [place] [address] Dr. Duy Fleming%0.0 %Critically low0.9-7.0The [facility] HospitalComment on above:Performed By: #### BMP #### [facility] [address] [place] [address] Dr. Duy JamesHCT36.8 %Critically low42.0-54.0The [facility] HospitalComment on above:Performed By: #### BMP #### [facility] [address] [place] [address] Dr. Duy JamesHGB12.0 g/dlCritically low14.0-18.0The [facility] HospitalComment on above:Performed By: #### BMP #### [facility] [address] [place] [address] Dr. Duy Reed #0.47 103/ulCritically low1.20-3.80The [facility] on above:Performed By: #### BMP #### [facility] [address] [place] [address] Dr. Duy Reed%6.0 %Critically low20.5-60.0The [facility] HospitalComment on above:Performed By: #### BMP #### [facility] [address] [place] [address] Dr. Duy GramajoH28.4 leOgfvmq72.9-34.0The [facility] HospitalComment on above: Performed By: #### BMP #### [facility] [address] [place] [address] Dr. Duy GramajoHC32.6 g/idZbcqgx92.9-35.2The [facility] HospitalComment on above:Performed By: #### BMP #### [facility] [address] [place] [address] Dr. Duy GramajoV87.0 cTGcyzoy57.0-94.0The [facility] HospitalComment on above: Performed By: #### BMP #### [facility] [address] [place] [address] Dr. Duy Wallace #NormalThe [facility] HospitalComment on above: Performed By: #### BMP #### [facility] [address] [place] [address] Dr. Duy Wallace %NormalThe [facility] HospitalComment on above: Performed By: #### BMP #### [facility] [address] [place] [address] Dr. Duy Regalado#0.40 103/ulNormal0.30-0.80The [facility] HospitalComment on above:Performed By: #### BMP #### [facility] [address] [place] [address] Dr. Duy Regalado%5.0 %Normal1.7-12.0The [facility] County HospitalComment on above: Performed By: #### BMP #### [facility] [address] [place] [address] Dr. Duy PerezV10.2 fLNormal9.5-13.5The [facility] HospitalComment on above: Performed By: #### BMP #### [facility] [address] [place] [address] Dr. Duy Figueroa #NormalThe [facility] HospitalComment on above:Performed By: #### BMP #### [facility] [address] [address] [address] Duy ToledoELOCYTE %NormalThe [facility]rington HospitalComment on above:Performed By: #### BMP #### [facility] [address] [place] [address] Dr. Duy JamesNRBCNormalThe [facility]rington HospitalComment on above:Performed By: #### BMP #### [facility] [address] [place] [address] Dr. Duy LuuT205 103/cuDuvpvl057-403Fde [facility] HospitalComment on above: Performed By: #### BMP #### [facility] [address] [place] [address] Dr. Duy HardingC4.23 106/ulCritically low4.70-6.10The [facility] HospitalComment on above:Performed By: #### BMP #### [facility] [address] [place] [address] Dr. Duy PierreW13.3 %Wumgki06.0-15.0The [facility] HospitalComment on above: Performed By: #### BMP #### [facility] [address] [place] [address] Dr. Duy Brown #7.03 103/ulCritically high1.40-6.50The [facility] on above:Performed By: #### BMP #### [facility] [address] [place] [address] Dr. Duy Brown %89.0 %Critically high43.0-75.0The [facility] HospitalComment on above:Performed By: #### BMP #### [facility] [address] [place] [address] Dr. Duy GarciaBC7.9 103/ulNormal4.0-11.0The [facility] HospitalComment on above: Performed By: #### BMP #### [facility] [address] [place] [address] Dr. Duy Starks 14(COMP METB)on 80-14-8315Hhljzyi [Mass/Vol]3.4 g/dLNormal 3.4-5.0The [facility] County HospitalComment on above:Performed By: #### CBC #### [facility] [address] [place] [address] Dr. Duy JamesAlbumin/Globulin [Mass ratio]1.0 {ratio}NormalThe [facility] County HospitalComment on above:Performed By: #### CBC #### [facility] [address] [place] [address] Dr. Duy Ku [Catalytic activity/Vol]73 U/VLsbcya81-058Vni [facility] HospitalComment on above:Performed By: #### CBC #### [facility] [address] [place] [address] Dr. Duy Aguirre [Catalytic activity/Vol]66 U/LCritically csvz88-38Fmb [facility] HospitalComment on above:Performed By: #### CBC #### [facility] [address] [place] [address] Dr. Duy Morocho gap [Moles/Vol]10.6 mmol/LNormalThe [facility] Comment on above:Performed By: #### CBC #### [facility] [address] [place] [address] Dr. Duy JamesAST [Catalytic activity/Vol]26 U/KHudazi41-11Jjt [facility] HospitalComment on above:Performed By: #### CBC #### [facility] [address] [place] [address] Dr. Duy JamesBilirubin [Mass/Vol]0.3 mg/dLNormal0.2-1.0The [facility] Comment on above:Performed By: #### CBC #### [facility] [address] [place] [address] Dr. Duy JamesCalcium [Mass/Vol]8.9 mg/dLNormal8.5-10.1The [facility] Comment on above:Performed By: #### CBC #### [facility] [address] [place] [address] Dr. Duy JamesChloride [Moles/Vol]106 mmol/CBrxtcm88-907Wmi [facility] Comment on above:Performed By: #### CBC #### [facility] [address] [address] [address] Duy JamesCO2 [Moles/Vol]29.3 mmol/AXvfasy93.0-32.0The [facility] Comment on above:Performed By: #### CBC #### [facility] [address] [address] [address] Duy JamesCreatinine [Mass/Vol]1.12 mg/dLNormal0.70-1.30The [facility] HospitalComment on above:Performed By: #### CBC #### [facility] [address] [address] [address] Duy MattaGFR-AF GREENLANDIC>60Normal>=60The [facility] HospitalComment on above:Performed By: #### CBC #### [facility] [address] [address] [address] Duy MattaGFR-NON AF GREENLANDIC>60Normal>=60The [facility] HospitalComment on above:Performed By: #### CBC #### [facility] [address] [address] [address] Duy JamesGlobulin (S) [Mass/Vol]3.3 g/dLNormalThe [facility] HospitalComment on above:Performed By: #### CBC #### [facility] [address] [address] [address] Duy JamesGlucose [Mass/Vol]157 mg/dLCritically kbah24-064Pgl [facility] HospitalComment on above:Performed By: #### CBC #### [facility] [address] [address] [address] Duy JamesPotassium [Moles/Vol]4.9 mmol/LNormal3.5-5.1The [facility] Comment on above:Performed By: #### CBC #### [facility] [address] [address] [address] Duy JamesProtein [Mass/Vol]6.7 g/dLNormal6.4-8.2The [facility] Comment on above:Performed By: #### CBC #### [facility] [address] [address] [address] Duy JamesSodium [Moles/Vol]141 mmol/UGcxddf845-683Ikx [facility] Comment on above:Performed By: #### CBC #### [facility] [address] [place] [address] Dr. Duy JamesUrea nitrogen [Mass/Vol]22.0 mg/dLCritically high7.0-18.0The [facility] HospitalComment on above:Performed By: #### CBC #### [facility] [address] [place] [address] Dr. Duy JamesUrea nitrogen/Creatinine [Mass ratio]19.6 mg/mgNormalThe [facility] HospitalComment on above:Performed By: #### CBC #### [facility] [address] [place] [address] Dr. Duy JamesMAGNESIUMon 27-32-8044Jxfgbesni [Mass/Vol]2.0 mg/dLNormal1.8-2.4 The [facility] HospitalComment on above:Performed By: #### CMP, MG #### [facility] [address] [place] [address] Dr. Duy Starks 14(COMP METB)on 19-09-6098Azmhuht [Mass/Vol]3.6 g/dLNormal 3.4-5.0The [facility] HospitalComment on above:Performed By: #### CMP, MG #### [facility] [address] [place] [address] Dr. Duy JamesAlbumin/Globulin [Mass ratio]0.9 {ratio}NormalThe [facility] HospitalComment on above:Performed By: #### CMP, MG #### [facility] [address] [place] [address] Dr. Duy Ku [Catalytic activity/Vol]79 U/GPoinaf90-742Jwc [facility] HospitalComment on above:Performed By: #### CMP, MG #### [facility] [address] [place] [address] Dr. Yilan ChangALT [Catalytic activity/Vol]86 U/LCritically fyed42-22Gzm [facility] HospitalComment on above:Performed By: #### CMP, MG #### [facility] [address] [place] [address] Dr. Duy Hungon gap [Moles/Vol]14.3 mmol/LNormalWhite Hospital Comment on above:Performed By: #### CMP, MG #### [facility] [address] [place] [address] Dr. Duy JamesAST [Catalytic activity/Vol]38 U/LCritically tfiq60-99Ydk [facility] HospitalComment on above:Performed By: #### CMP, MG #### [facility] [address] [place] [address] Dr. Duy JamesBilirubin [Mass/Vol]0.4 mg/dLNormal0.2-1.0[facility] Comment on above:Performed By: #### CMP, MG #### [facility] [address] [place] [address] Dr. Duy JamesCalcium [Mass/Vol]9.3 mg/dLNormal8.5-10.1[facility] Comment on above:Performed By: #### CMP, MG #### [facility] [address] [place] [address] Dr. Duy JamesChloride [Moles/Vol]106 mmol/IArotwh49-088JtpWhite Hospital Comment on above:Performed By: #### CMP, MG #### [facility] [address] [place] [address] Dr. Duy JamesCO2 [Moles/Vol]27.1 mmol/AMhkstf85.0-32.0[facility] Comment on above:Performed By: #### CMP, MG #### [facility] [address] [place] [address] Dr. Duy JmaesCreatinine [Mass/Vol]1.17 mg/dLNormal0.70-1.30The [facility] HospitalComment on above:Performed By: #### CMP, MG #### [facility] [address] [place] [address] Dr. Duy MattaGFR-AF GREENLANDIC>60Normal>=60The [facility] HospitalComment on above:Performed By: #### CMP, MG #### [facility] [address] [place] [address] Dr. Duy MattaGFR-NON AF GREENLANDIC>60Normal>=60The [facility] HospitalComment on above:Performed By: #### CMP, MG #### [facility] [address] [place] [address] Dr. Duy JamesGlobulin (S) [Mass/Vol]3.8 g/dLNormalThe [facility] HospitalComment on above:Performed By: #### CMP, MG #### [facility] [address] [place] [address] Dr. Duy JamesGlucose [Mass/Vol]163 mg/dLCritically htul54-395Vzn [facility] HospitalComment on above:Performed By: #### CMP, MG #### [facility] [address] [place] [address] Dr. Duy JamesPotassium [Moles/Vol]5.4 mmol/LCritically high3.5-5.1The [facility] HospitalComment on above:Performed By: #### CMP, MG #### [facility] [address] [place] [address] Dr. Duy JamesProtein [Mass/Vol]7.4 g/dLNormal6.4-8.2[facility] Comment on above:Performed By: #### CMP, MG #### [facility] [address] [place] [address] Dr. Duy JamesSodium [Moles/Vol]142 mmol/UDzbjrd245-214Dvy [facility] Comment on above:Performed By: #### CMP, MG #### [facility] [address] [place] [address] Dr. Duy JamesUrea nitrogen [Mass/Vol]16.0 mg/dLNormal7.0-18.0The [facility] HospitalComment on above:Performed By: #### CMP, MG #### [facility] [address] [address] [address] Duy JamesUrea nitrogen/Creatinine [Mass ratio]13.7 mg/mgNormalThe [facility] HospitalComment on above:Performed By: #### CMP, MG #### [facility] [address] [address] [address] Duy JamesPROF CHEM 8 (BAS METB)on 20-53-4420Tqbki gap [Moles/Vol]15.1 mmol/LNormalThe [facility] HospitalComment on above:Performed By: #### BMP #### [facility] [address] [address] [address] Duy JamesCalcium [Mass/Vol]9.0 mg/dLNormal8.5-10.1The [facility] Comment on above:Performed By: #### BMP #### [facility] [address] [place] [address] Dr. Duy JamesChloride [Moles/Vol]105 mmol/YDheigk37-616Ykt [facility] Comment on above:Performed By: #### BMP #### [facility] [address] [place] [address] Dr. Duy JamesCO2 [Moles/Vol]27.0 mmol/TOhrams68.0-32.0The [facility] Comment on above:Performed By: #### BMP #### [facility] [address] [place] [address] Dr. Duy JamesCreatinine [Mass/Vol]1.20 mg/dLNormal0.70-1.30The [facility] HospitalComment on above:Performed By: #### BMP #### [facility] [address] [place] [address] Dr. Mcfadden ChangEGFR-AF GREENLANDIC>60Normal>=60The [facility] HospitalComment on above:Performed By: #### BMP #### [facility] [address] [place] [address] Dr. Mcfadden ChangEGFR-NON AF GREENLANDIC>60Normal>=60The [facility] HospitalComment on above:Performed By: #### BMP #### [facility] [address] [address] [address] Duy JamesGlucose [Mass/Vol]155 mg/dLCritically vusq96-338Zxv [facility] HospitalComment on above:Performed By: #### BMP #### [facility] [address] [address] [address] Duy JamesPotassium [Moles/Vol]5.1 mmol/LNormal3.5-5.1[facility] Comment on above:Performed By: #### BMP #### [facility] [address] [address] [address] Duy JamesSodium [Moles/Vol]142 mmol/ZWrmkes682-177Sip [facility] Comment on above:Performed By: #### BMP #### [facility] [address] [place] [address] Dr. Duy JamesUrea nitrogen [Mass/Vol]19.0 mg/dLCritically high7.0-18.0The [facility] HospitalComment on above:Performed By: #### BMP #### [facility] [address] [place] [address] Dr. Duy Richardson nitrogen/Creatinine [Mass ratio]15.8 mg/mgNoUniversity Hospitals Portage Medical CenterComment on above:Performed By: #### BMP #### [facility] [address] [place] [address] Dr. Duy JamesXR CHEST 2 Von [id number] CHEST 2 VEXAMINATION: XR CHEST 2 V, 08/27/2022 7:53 AM EST HISTORY: SHORTNESS OF BREATH COMPARISON: 12/28/2021 TECHNIQUE: Chest x-ray: Two views. FINDINGS: Increased interstitial markings in the right lower lobe which may represent an infiltrate. Blunting of the costophrenic angles bilaterally. Cardiomediastinal silhouette is unremarkable. Visualized osseous structures are unremarkable. IMPRESSION: Possible right lower lobe infiltrate. Electronically authenticated by: GRACIE DEAN Date: 2022-08-27 08:27[facility]BLL[facility] CULTURE ID PANELon 08-26-2022. baumanniiNot detected NormalNOT DETECTEDThe [facility] HospitalComment on above:Performed By: #### CBC #### [facility] [address] [place] [address] Dr. Duy Brooks fragilisNot detectedNormalNOT DETECTEDWhite HospitalComment on above:Performed By: #### CBC #### [facility] [address] [place] [address] Dr. Duy To CONTROLSPASSEDSelect Medical [facility] Rehabilitation Hospital, Edwin ShawComment on above: Performed By: #### CBC #### [facility] [address] [address] [address] Duy ToBTHDBLOOD CULTURE BOTTLE INFORMATIONSelect Medical [facility] Hospital, Edwin ShawComment on above:Performed By: #### CBC #### [facility] [address] [place] [address] Dr. Duy ToCvvjgHEYHKI5WFIYGAEYLOFHV RESISTANCE GENESSelect Medical [facility] Comment on above:Performed By: #### CBC #### [facility] [address] [place] [address] Dr. Duy ToHD2SEE BELOWSelect Medical Cleveland Clinic Rehabilitation Hospital, Edwin ShawComment on above: Result Comment: Note: Antimicrobial resitance can occur via multiple mechanisms. A Not Detected result for the [employer] antomicrobial resistance gene assays does not indicate antimicrobial susceptibility. Subculturing is required for species identification and susceptibility testing of isolates.Performed By: #### CBC #### [facility] [address] [place] [address] Dr. Duy ToIoaglVYTHWQ1UbhsrfyrRqzcvyVhm [facility]Comcore[facility] on above: Performed By: #### CBC #### [facility] [address] [place] [address] Dr. Duy ToQgzwiXUKNHY3BozyymmhJvqudlWtc [facility] HospitalComment on above: Performed By: #### CBC #### [facility] [address] [place] [address] Dr. Duy ToPwhzaMAANBW5DIWAEDyhonoXxhBlanchard Valley Health SystemComment on above:Performed By: #### CBC #### [facility] [address] [place] [address] Dr. Duy Mendoza Set:Set 1NormalThe [facility] HospitalComment on above: Performed By: #### CBC #### [facility] [address] [address] [address] Duy Mendoza:AnaerobicNormalThe [facility] HospitalComment on above: Performed By: #### CBC #### [facility] [address] [address] [address] Duy Saeed. neoformans/gattiiNot detectedNormalNOT DETECTEDThe [facility] HospitalComcorewell health green[facility] hospital on above:Performed By: #### CBC #### [facility] [address] [address] [address] Dyu Davidson albicansNot detectedNormalNOT DETECTEDThe [facility] HospitalComcorewell health [facility] hospital on above:Performed By: #### CBC #### [facility] [address] [address] [address] Duy aDvidson aurisNot detectedNormalNOT DETECTEDThe [facility] Comment on above:Performed By: #### CBC #### [facility] [address] [address] [address] Duy Davidson glabrataNot detectedNormalNOT DETECTEDThe [facility] HospitalComcorewell health [facility] hospital on above:Performed By: #### CBC #### [facility] [address] [address] [address] Duy Davidson KruseiNot detectedNormalNOT DETECTEDWhite [facility] Comment on above:Performed By: #### CBC #### [facility] [address] [address] [address] Duy Davidson ParapsilosisNot detectedNormalNOT DETECTEDThe [facility] HospitalComment on above:Performed By: #### CBC #### [facility] [address] [address] [address] Duy Davidson TropicalisNot detectedNormalNOT DETECTEDThe [facility] HospitalComcorewell health [facility] hospital on above:Performed By: #### CBC #### [facility] [address] [address] [address] Duy JamesCTX-M Resistant GeneNot ApplicableNormalNOT DETECTEDThe [facility] HospitalComment on above:Performed By: #### CBC #### [facility] [address] [address] [address] Duy Matta. Cloacae complexNot detectedNormalNOT DETECTEDThe [facility] HospitalComcorewell health [facility] hospital on above:Performed By: #### CBC #### [facility] [address] [address] [address] Duy Matta. faecalisNot detectedNormalNOT DETECTEDThe [facility] Comment on above:Performed By: #### CBC #### [facility] [address] [address] [address] Duy Matta. faeciumNot detectedNormalNOT DETECTEDThe [facility] Comment on above:Performed By: #### CBC #### [facility] [address] [address] [address] Duy MattanterobacteriaceaeNot detectedNormalNOT DETECTEDThe [facility] HospitalCom[facility] on above:Performed By: #### CBC #### [facility] [address] [address] [address] Duy Marquezichia coliNot detectedNormalNOT DETECTEDThe [facility] HospitalCom[facility] on above:Performed By: #### CBC #### [facility] [address] [address] [address] Duy Alvarado. influenzaeNot detectedNormalNOT DETECTEDThe [facility] Comment on above:Performed By: #### CBC #### [facility] [address] [address] [address] Duy Peterson Resistant GeneNot ApplicableNormalNOT DETECTEDThe [facility] HospitalComment on above:Performed By: #### CBC #### [facility] [address] [address] [address] Duy Weber. oxytocaNot detectedNormalNOT DETECTEDThe [facility] Comment on above:Performed By: #### CBC #### [facility] [address] [address] [address] Duy Weber. pneumoniaeNot detectedNormalNOT DETECTEDThe [facility] Comment on above:Performed By: #### CBC #### [facility] [address] [address] [address] Duy Simms aerogenesNot detectedNormalNOT DETECTEDThe [facility] HospitalComment on above:Performed By: #### CBC #### [facility] [address] [address] [address] Duy Hoyt Resistant GeneNot ApplicableNormalNOT DETECTEDThe [facility] HospitalCom[facility] on above:Performed By: #### CBC #### [facility] [address] [place] [address] Dr. Duy Carreno. monocytogenesNot detectedNormalNOT DETECTEDThe [facility]Com[facility] on above:Performed By: #### CBC #### [facility] [address] [place] [address] Dr. Duy Gramajor-1 Resistant GeneNot ApplicableNormalNOT DETECTEDThe [facility]Com[facility] on above:Performed By: #### CBC #### [facility] [address] [place] [address] Dr. Duy Rodriguez/CNot ApplicableNormalNOT DETECTEDWhite [facility] Comment on above:Performed By: #### CBC #### [facility] [address] [place] [address] Dr. Duy Rodriguez/C MREJNot ApplicableNormalNOT DETECTEDThe [facility] Comment on above:Performed By: #### CBC #### [facility] [address] [place] [address] Dr. Duy Gonzales. meningitidisNot detectedNormalNOT DETECTEDThe [facility]Com[facility] on above:Performed By: #### CBC #### [facility] [address] [place] [address] Dr. Duy Ren Resistant GeneNot ApplicableNormalNOT DETECTEDThe [facility]Com[facility] on above:Performed By: #### CBC #### [facility] [address] [place] [address] Dr. Duy CliffordXidsuGsa-63-ycnqBjb ApplicableNormalNOT DETECTEDThe [facility] Comment on above:Performed By: #### CBC #### [facility] [address] [place] [address] Dr. Yilan ChangProteusNot detectedNormalNOT DETECTEDThe [facility] HospitalComment on above:Performed By: #### CBC #### [facility] [address] [address] [address] Duy Zamudio. aeruginosaNot detectedNormalNOT DETECTEDThe [facility] HospitalComment on above:Performed By: #### CBC #### [facility] [address] [address] [address] Duy Molina. maltophiliaNot detectedNormalNOT DETECTEDThe [facility] Comment on above:Performed By: #### CBC #### [facility] [address] [address] [address] Duy JamesSalmonellaNot detectedNormalNOT DETECTEDThe [facility] Comment on above:Performed By: #### CBC #### [facility] [address] [address] [address] Duy Loomis marcescensNot detectedNormalNOT DETECTEDThe [facility] HospitalComment on above:Performed By: #### CBC #### [facility] [address] [address] [address] Duy Miller:L a/cNormalThe [facility] HospitalComment on above:Performed By: #### CBC #### [facility] [address] [address] [address] Duy Lassiter. aureusNot detectedNormalNOT DETECTEDThe [facility] Comment on above:Performed By: #### CBC #### [facility] [address] [address] [address] Duy Lassiter. epidermidisNot detectedNormalNOT DETECTEDThe [facility] HospitalCom[facility] on above:Performed By: #### CBC #### [facility] [address] [address] [address] Duy Lassiter. lugdunensisNot detectedNormalNOT DETECTEDThe [facility] HospitalCom[facility] on above:Performed By: #### CBC #### [facility] [address] [address] [address] Duy StoutococcusDetectedCritically abnormalNOT DETECTEDThe [facility] HospitalComment on above:Performed By: #### CBC #### [facility] [address] [address] [address] Duy Rand. agalactiaeNot detectedNormalNOT DETECTEDThe [facility] HospitalComment on above:Performed By: #### CBC #### [facility] [address] [address] [address] Duy Rand. pneumoniaeNot detectedNormalNOT DETECTEDThe [facility] HospitalCom[facility] on above:Performed By: #### CBC #### [facility] [address] [address] [address] Duy Rand. pyogenesNot detectedNormalNOT DETECTEDThe [facility] HospitalCom[facility] on above:Performed By: #### CBC #### [facility] [address] [address] [address] Duy RandtococcusNot detectedNormalNOT DETECTEDThe [facility] on above:Performed By: #### CBC #### [facility] [address] [place] [address] Dr. Duy Razo/Juno Resist. GeneNot ApplicableNormalNOT DETECTEDThe [facility] HospitalCom[facility] on above:Performed By: #### CBC #### [facility] [address] [place] [address] Dr. Duy Shaffer Resistant GeneNot ApplicableNormalNOT DETECTEDThe [facility] HospitalCom[facility] on above:Performed By: #### CBC #### [facility] [address] [address] [address] Duy Quesada GASES BTYon MODENASAL CANNULANoUniversity Hospitals Portage Medical CenterComment on above:Performed By: #### CBC #### [facility] [address] [address] [address] Duy Bauer TESTPositiveSelect Medical Cleveland Clinic Rehabilitation Hospital, Edwin ShawComment on above: Performed By: #### CBC #### [facility] [address] [address] [address] Duy Kelley excess Calc (Bld) [Moles/Vol]-1.3000 mmol/LNormal-2.0-2.0The [facility] Hospitalment on above:Performed By: #### CBC #### [facility] [address] [address] [address] Duy Lopez [facility]Com[facility] on above: Performed By: #### CBC #### [facility] [address] [address] [address] Duy JamesCPOhioHealth Southeastern Medical CenterComcorewell health [facility] on above:Performed By: #### CBC #### [facility] [address] [address] [address] Duy JamesYubmpMOU3RutfhoXts46 Harris StreetComcorewell health greenville hospital on above:Performed By: #### CBC #### [facility] [address] [place] [address] Dr. Duy JamesHCO3 (Bld) [Moles/Vol]24.5 mmol/NIhuiet16.0-26.0The [facility] on above:Performed By: #### CBC #### [facility] [address] [address] [address] D[address] JamesAmuzhBLS2ReutwsT[address] on above:Performed By: #### CBC #### [facility] [address] [place] [address] Dr. Duy SteveUTE [facility] on above: Performed By: #### CBC #### [facility] [address] [place] [address] Dr. Duy JamesOxygen (Bld) [Partial pressure]64.3 mm[Hg]Critically low 80.0-100.0The [facility] on above:Performed By: #### CBC #### [facility] [address] [place] [address] Dr. Duy JamesOxygen saturation in Blood92.0 %Critically low95.0-100.0The [facility] on above:Performed By: #### CBC #### [facility] [address] [place] [address] Dr. Duy JamesPCO245.3 mmHgCritically high35.0-45.0Fire[facility] Campusment on above:Performed By: #### CBC #### [facility] [address] [address] [address] Duy JamesProMedica Fostoria Community Hospitalment on above:Performed By: #### CBC #### [facility] [address] [address] [address] Duy Lu (Bld)7.341 [pH]Critically low7.350-7.450The [facility] on above:Performed By: #### CBC #### [facility] [address] [address] [address] Duy MckeeMount Carmel Health SystemComment on above:Performed By: #### CBC #### [facility] [address] [address] [address] Duy JamesProMedica Toledo Hospitalment on above:Performed By: #### CBC #### [facility] [address] [address] [address] Duy Cooper [facility] HospitalComcorewell health [facility] on above: Performed By: #### CBC #### [facility] [address] [address] [address] Duy HuertaMount Carmel Health SystemComment on above:Performed By: #### CBC #### [facility] [address] [address] [address] Duy JamesUniversity Hospitals Cleveland Medical CenterComcorewell health [facility] hospital on above:Performed By: #### CBC #### [facility] [address] [address] [address] Duy JamesCleveland Clinic Marymount HospitalComcorewell health [facility] hospital on above:Performed By: #### CBC #### [facility] [address] [address] [address] Duy Jefferson [id number] peptide B (Bld) [Mass/Vol]2516.0 pg/mLCritically high<=900.0The [facility] HospitalComment on above:Performed By: #### BMP #### [facility] [address] [place] [address] Dr. Duy Peterson AUTO DIFFon [id number] #0.1 103/ulNormal0.0-0.1The [facility] HospitalComment on above:Performed By: #### CBC #### [facility] [address] [place] [address] Dr. Duy JamesBasophils/100 WBC (Bld)1.2 %Normal0.2-2.0The [facility] Comment on above:Performed By: #### CBC #### [facility] [address] [place] [address] Dr. Duy Meier #0.4 103/ulNormal0.0-0.7The [facility] HospitalComment on above: Performed By: #### CBC #### [facility] [address] [place] [address] Dr. Duy Mattaosinophils/100 WBC (Bld)4.6 %Normal0.9-7.0The [facility] Comment on above:Performed By: #### CBC #### [facility] [address] [place] [address] Dr. Duy Mattarythrocyte distribution width (RBC) [Ratio]13.2 %Acdyho53.0-15.0 [facility] HospitalComment on above:Performed By: #### CBC #### [facility] [address] [place] [address] Dr. Duy JamesHematocrit (Bld) [Volume fraction]41.1 %Critically low42.0-54.0 The [facility] HospitalComment on above:Performed By: #### CBC #### [facility] [address] [place] [address] Dr. Duy JamesHemoglobin (Bld) [Mass/Vol]13.8 g/dLCritically low14.0-18.0White HospitalComment on above:Performed By: #### CBC #### [facility] [address] [place] [address] Dr. Duy Moreira #0.03 10e3/ulNormal0.00-0.03The [facility] HospitalComment on above:Performed By: #### CBC #### [facility] [address] [place] [address] Dr. Duy Moreira %0.4 %Normal0.0-0.5The [facility] HospitalComment on above: Performed By: #### CBC #### [facility] [address] [place] [address] Dr. Duy Rowan #2.9 103/ulNormal1.2-3.8The [facility] HospitalComment on above:Performed By: #### CBC #### [facility] [address] [place] [address] Dr. Duy Johnsonhocytes/100 WBC (Bld)35.3 %Chccvr27.5-60.0The [facility] HospitalComment on above:Performed By: #### CBC #### [facility] [address] [place] [address] Dr. Duy Mir DIFF REQNONormalThe [facility] HospitalComment on above: Performed By: #### CBC #### [facility] [address] [place] [address] Dr. Duy Bee (RBC) [Entitic mass]28.9 ywGnqghb85.9-34.0The [facility] HospitalComment on above:Performed By: #### CBC #### [facility] [address] [place] [address] Dr. Duy Hair (RBC) [Mass/Vol]33.6 g/tOObwlsi66.9-35.2The [facility] HospitalComment on above:Performed By: #### CBC #### [facility] [address] [place] [address] Dr. Duy Rudolph (RBC) [Entitic vol]86.2 hEDpwyse61.0-94.0The [facility] HospitalComment on above:Performed By: #### CBC #### [facility] [address] [place] [address] Dr. Duy Valladares #0.6 103/ulNormal0.3-0.8The [facility] HospitalComment on above:Performed By: #### CBC #### [facility] [address] [place] [address] Dr. Duy Simeonocytes/100 WBC (Bld)7.1 %Normal1.7-12.0The [facility] Comment on above:Performed By: #### CBC #### [facility] [address] [place] [address] Dr. Duy Sweeney #4.2 103/ulNormal1.4-6.5The [facility] HospitalComment on above:Performed By: #### CBC #### [facility] [address] [place] [address] Dr. Duy Anneutrophils/100 WBC (Bld)51.4 %Lijszi65.0-75.0The [facility] HospitalComment on above:Performed By: #### CBC #### [facility] [address] [place] [address] Dr. Duy Guolet mean volume (Bld) [Entitic vol]10.1 fLNormal9.5-13.5The [facility] HospitalComment on above:Performed By: #### CBC #### [facility] [address] [place] [address] Dr. Duy JamesPLT264 103/nhFozpem816-150Rui [facility] HospitalComment on above: Performed By: #### CBC #### [facility] [address] [place] [address] Dr. Duy JamesRBC4.77 106/ulNormal4.70-6.10The [facility] HospitalComment on above:Performed By: #### CBC #### [facility] [address] [place] [address] Dr. Duy JamesWBC8.2 103/ulNormal4.0-11.0The [facility] HospitalComment on above: Performed By: #### CBC #### [facility] [address] [place] [address] Dr. Duy Peguero [id number] CHEST WO W CONEXAMINATION: CTA CHEST WO W CON HISTORY: Shortness [...] Electronically authenticated by: CODY WAY Date: 2022-08-26 20:19NormMadison HealthCULTURE BLOODon [id number] examination of blood, cultureCulture Observations: NO GROWTH AT 5 DAYS.NormalThe [facility] HospitalComment on above:Performed By: #### BMP #### [facility] [address] [place] [address] Dr. Duy Bauer-19 PCR ([facility])on [id number]-CoV-2 (COVID-19) RNA RICKY+probe Ql (Unsp spec)Not detectedNormalNOT DETECTEDThe [facility] Comment on above:Result Comment: When diagnostic testing is negative, the [...] for this test is supported by the Prep Manager of Health and Human Service's declaration that circumstances exist to justify the emergency use of in vitro diagnostics for the detection and/or diagnosis of the virus that causes COVID-19. This EUA will remain in effect for the duration of the COVID-19 declaration justifying emergency of IVDs, unless it is terminated or revoked by the FDA (after which the test may no longer be used).Performed By: #### CBC #### [facility] [address] [place] [address] Dr. Duy Alexandreon [id number]-DIMER1.10 mg/L FEUCritically high<=0.59The [facility] on above:Performed By: #### DDIM #### [facility] [address] [place] [address] Dr. Duy Alexandre [facility] on above:Result Comment: Increases in D-Dimer concentration observed with thromboembolic events [...] stress, and generalized hospitalization. Performed By: #### DDIM #### [address] [address] Dr[address] Duy Haley A AND B AGon [id number] Hospital on above:Result Comment: Negative for Flu A protein angiten. Infection due to Flu A cannot be ruled out. FluA angiten in the sample may be below the detection limit of the test.Performed By: #### INFLUAB #### [facility] [address] [place] [address] Dr. Duy JamesINFLUBNEGHSLENNY [facility] on above: Result Comment: Negative for Flu B protein antigen. Infection due to Flu B cannot be ruled out. FluB antigen in the sample may be below the detection limit of the test.Performed By: #### INFLUAB #### [facility] [address] [place] [address] Dr. Duy Alcantar AGNegativeNormalNEGATIVE SEE COMMENTThe [facility] on above:Performed By: #### INFLUAB #### [facility] [address] [place] [address] Dr. Duy Fraire AGNegativeNormalNEGATIVE SEE COMMENTThe [facility] HospitalComment on above:Performed By: #### INFLUAB #### [facility] [address] [place] [address] Dr. Duy JamesLACTATE/LACTIC ACIDon [id number] [Moles/Vol]1.8 mmol/L Normal0.4-1.9The [facility] HospitalComment on above:Performed By: #### LACT #### [facility] [address] [place] [address] Dr. Duy JamesPROArnulfo 14(COMP METB)on [id number] [Mass/Vol]3.7 g/dLNormal 3.4-5.0The [facility] Hospitalment on above:Performed By: #### BNP, CMP, HSTROPN #### [facility] [address] [place] [address] Dr. Duy JamesAlbumin/Globulin [Mass ratio]1.0 {ratio}NormalThe [facility] on above:Performed By: #### BNP, CMP, HSTROPN #### [facility] [address] [place] [address] Dr. Duy Ku [Catalytic activity/Vol]84 U/TBwqpae04-352Iem [facility] on above:Performed By: #### BNP, CMP, HSTROPN #### [facility] [address] [place] [address] Dr. Duy Aguirre [Catalytic activity/Vol]103 U/LCritically xmyk30-08Uff [facility] Hospitalment on above:Performed By: #### BNP, CMP, HSTROPN #### [facility] [address] [place] [address] Dr. Yilan ChangAnion gap [Moles/Vol]15.5 mmol/LNormalWhite Hospital Comment on above:Performed By: #### BNP, CMP, HSTROPN #### [facility] [address] [address] [address] Duy JamesAST [Catalytic activity/Vol]62 U/LCritically yund39-44Lxl [facility] HospitalComment on above:Performed By: #### BNP, CMP, HSTROPN #### [facility] [address] [address] [address] Duy JamesBilirubin [Mass/Vol]0.3 mg/dLNormal0.2-1.0The [facility] Comment on above:Performed By: #### BNP, CMP, HSTROPN #### [facility] [address] [place] [address] Dr. Duy JamesCalcium [Mass/Vol]8.8 mg/dLNormal8.5-10.1[facility] Comment on above:Performed By: #### BNP, CMP, HSTROPN #### [facility] [address] [place] [address] Dr. Duy JamesChloride [Moles/Vol]106 mmol/MHkastf94-596Vvs [facility] Comment on above:Performed By: #### BNP, CMP, HSTROPN #### [facility] [address] [place] [address] Dr. Duy JamesCO2 [Moles/Vol]25.9 mmol/DMakfci65.0-32.0The [facility] Comment on above:Performed By: #### BNP, CMP, HSTROPN #### [facility] [address] [place] [address] Dr. Duy JamesCreatinine [Mass/Vol]1.32 mg/dLCritically high0.70-1.30The [facility] HospitalComment on above:Performed By: #### BNP, CMP, HSTROPN #### [facility] [address] [place] [address] Dr. Mcfadden ChangEGFR-AF GREENLANDIC>60Normal>=60The [facility] HospitalComment on above:Performed By: #### BNP, CMP, HSTROPN #### [facility] [address] [address] [address] Duy MattaGFR-NON AF BPUKHERL58 mL/min/1.35h0Cmmszpymdl low>=60The [facility] Hospitalment on above:Performed By: #### BNP, CMP, HSTROPN #### [facility] [address] [place] [address] Dr. Duy JamesGlobulin (S) [Mass/Vol]3.6 g/dLNormalThe [facility] HospitalComment on above:Performed By: #### BNP, CMP, HSTROPN #### [facility] [address] [place] [address] Dr. Duy JamesGlucose [Mass/Vol]146 mg/dLCritically bdea82-339Lyx [facility] HospitalComment on above:Performed By: #### BNP, CMP, HSTROPN #### [facility] [address] [place] [address] Dr. Duy JamesPotassium [Moles/Vol]4.4 mmol/LNormal3.5-5.1The [facility] Comment on above:Performed By: #### BNP, CMP, HSTROPN #### [facility] [address] [place] [address] Dr. Duy JamesProtein [Mass/Vol]7.3 g/dLNormal6.4-8.2The [facility] Comment on above:Performed By: #### BNP, CMP, HSTROPN #### [facility] [address] [place] [address] Dr. Duy JamesSodium [Moles/Vol]143 mmol/SMyzgkn247-665Csm [facility] Comment on above:Performed By: #### BNP, CMP, HSTROPN #### [facility] [address] [place] [address] Dr. Duy JamesUrea nitrogen [Mass/Vol]15.0 mg/dLNormal7.0-18.0The [facility] HospitalComment on above:Performed By: #### BNP, CMP, HSTROPN #### [facility] [address] [place] [address] Dr. Duy JamesUrea nitrogen/Creatinine [Mass ratio]11.4 mg/mgNormalThe [facility] HospitalComment on above:Performed By: #### BNP, CMP, HSTROPN #### [facility] [address] [place] [address] Dr. Duy Couch, HIGH SENSITIVITYon 27-00-8736UZHKJL39.1 pg/mLNormal 4.0-76.1The [facility] HospitalComment on above:Result Comment: CUT-OFF POINTS HAVE BEEN ESTABLISHED BASED ON THE FOURTH UNIVERSAL DEFINITIONS OF MYOCARDIAL INFARCTION. THE UPPER REFERENCE LIMIT (URL) OF TROPONIN, DEFINED THE 99TH PERCENTILE OF cTnI DISTRIBUTION IN A REFERENCE POPULATION, HAS BEEN CONFIRMED THE DECISION THRESHOLD FOR SC DIAGNOSIS.Performed By: #### BMP #### [facility] [address] [place] [address] Dr. Duy JamesC AUTO DIFFon [id number] #0.1 103/ulNormal0.0-0.1[facility] HospitalComment on above:Performed By: #### CBC #### [facility] [address] [place] [address] Dr. Duy JamesBasophils/100 WBC (Bld)1.5 %Normal0.2-2.0[facility] Comment on above:Performed By: #### CBC #### [facility] [address] [place] [address] Dr. Duy Meier #0.3 103/ulNormal0.0-0.7The [facility] HospitalComcorewell [facility] on above: Performed By: #### CBC #### [facility] [address] [place] [address] Dr. Duy Mattaosinophils/100 WBC (Bld)4.7 %Normal0.9-7.0The [facility] Comment on above:Performed By: #### CBC #### [facility] [address] [place] [address] Dr. Duy Mattarythrocyte distribution width (RBC) [Ratio]12.8 %Chwjdf67.0-15.0 The [facility] HospitalComment on above:Performed By: #### CBC #### [facility] [address] [place] [address] Dr. Duy JamesHematocrit (Bld) [Volume fraction]39.1 %Critically low42.0-54.0 The [facility] HospitalComment on above:Performed By: #### CBC #### [facility] [address] [place] [address] Dr. Duy JamesHemoglobin (Bld) [Mass/Vol]13.2 g/dLCritically low14.0-18.0The [facility] County HospitalComment on above:Performed By: #### CBC #### [facility] [address] [place] [address] Dr. Duy Moreira #0.03 10e3/ulNormal0.00-0.03The [facility] HospitalComment on above:Performed By: #### CBC #### [facility] [address] [place] [address] Dr. Duy Moreira %0.5 %Normal0.0-0.5The [facility] HospitalComment on above: Performed By: #### CBC #### [facility] [address] [place] [address] Dr. Duy Rowan #1.4 103/ulNormal1.2-3.8The [facility] HospitalComment on above:Performed By: #### CBC #### [facility] [address] [place] [address] Dr. Duy Basiliomphocytes/100 WBC (Bld)23.8 %Akjnqg84.5-60.0The [facility] HospitalComment on above:Performed By: #### CBC #### [facility] [address] [place] [address] Dr. Duy DuranUAL DIFF REQNONormalThe [facility] County HospitalComment on above: Performed By: #### CBC #### [facility] [address] [place] [address] Dr. Duy Bee (RBC) [Entitic mass]28.8 fmDypwwy27.9-34.0The [facility] HospitalComment on above:Performed By: #### CBC #### [facility] [address] [place] [address] Dr. Duy Gramajo (RBC) [Mass/Vol]33.8 g/kSAyubwa89.9-35.2The [facility] HospitalComment on above:Performed By: #### CBC #### [facility] [address] [place] [address] Dr. Duy Gramajo (RBC) [Entitic vol]85.2 hSLswfwq77.0-94.0The [facility] HospitalComment on above:Performed By: #### CBC #### [facility] [address] [place] [address] Dr. Duy Valladares #0.5 103/ulNormal0.3-0.8The [facility] HospitalComment on above:Performed By: #### CBC #### [facility] [address] [place] [address] Dr. Duy Simeonocytes/100 WBC (Bld)7.8 %Normal1.7-12.0[facility] Comment on above:Performed By: #### CBC #### [facility] [address] [place] [address] Dr. Duy Sweeney #3.7 103/ulNormal1.4-6.5The [facility] HospitalComment on above:Performed By: #### CBC #### [facility] [address] [place] [address] Dr. Duy Anneutrophils/100 WBC (Bld)61.7 %Wyknwz83.0-75.0The [facility] HospitalComment on above:Performed By: #### CBC #### [facility] [address] [place] [address] Dr. Duy Goins mean volume (Bld) [Entitic vol]9.6 fLNormal9.5-13.5The [facility] HospitalComment on above:Performed By: #### CBC #### [facility] [address] [address] [address] Duy JamesPLT199 103/ntNnzgpz053-686Vmq [facility] HospitalComment on above: Performed By: #### CBC #### [facility] [address] [place] [address] Dr. Duy JamesRBC4.59 106/ulCritically low4.70-6.10The [facility] HospitalComment on above:Performed By: #### CBC #### [facility] [address] [place] [address] Dr. Duy JamesWBC6.0 103/ulNormal4.0-11.0The [facility] HospitalComment on above: Performed By: #### CBC #### [facility] [address] [place] [address] Dr. Duy JamesMETHYLMALONIC ACID (MMA)on 93-37-2555Ovjvzfkocdypy Acid, Fmuru105 nmol/LNormal0-378The [facility] HospitalComment on above:Performed By: #### MMA2 #### [facility] [address] [place] [address] Dr. Duy JamesC AUTO DIFFon 14-12-4674DLQK #0.1 103/ulNormal0.0-0.1The [facility] HospitalComment on above:Performed By: #### CBC #### [facility] [address] [place] [address] Dr. Duy JamesBasophils/100 WBC (Bld)1.3 %Normal0.2-2.0[facility] Comment on above:Performed By: #### CBC #### [facility] [address] [place] [address] Dr. Duy MattaO #0.2 103/ulNormal0.0-0.7The [facility] HospitalComment on above: Performed By: #### CBC #### [facility] [address] [place] [address] Dr. Duy Mattaosinophils/100 WBC (Bld)4.8 %Normal0.9-7.0[facility] Comment on above:Performed By: #### CBC #### [facility] [address] [place] [address] Dr. Duy Mattarythrocyte distribution width (RBC) [Ratio]13.9 %Agrnxz19.0-15.0 [facility] on above:Performed By: #### CBC #### [facility] [address] [place] [address] Dr. Duy JamesHematocrit (Bld) [Volume fraction]36.2 %Critically low42.0-54.0 The [facility] HospitalComment on above:Performed By: #### CBC #### [facility] [address] [place] [address] Dr. Duy JamesHemoglobin (Bld) [Mass/Vol]12.2 g/dLCritically low14.0-18.0White HospitalComment on above:Performed By: #### CBC #### [facility] [address] [place] [address] Dr. Duy Moreira #0.01 10e3/ulNormal0.00-0.03The [facility] HospitalComment on above:Performed By: #### CBC #### [facility] [address] [place] [address] Dr. Duy Moreira %0.2 %Normal0.0-0.5The [facility] on above: Performed By: #### CBC #### [facility] [address] [place] [address] Dr. Duy JohnsonH #1.3 103/ulNormal1.2-3.8The [facility] HospitalComment on above:Performed By: #### CBC #### [facility] [address] [place] [address] Dr. Duy Basiliomphocytes/100 WBC (Bld)29.3 %Wqptna54.5-60.0The [facility] on above:Performed By: #### CBC #### [facility] [address] [place] [address] Dr. Duy DuranUAL DIFF REQNONormalThe [facility] HospitalComment on above: Performed By: #### CBC #### [facility] [address] [address] [address] Duy Gramajo (RBC) [Entitic mass]29.5 dbXolold90.9-34.0The [facility] HospitalComment on above:Performed By: #### CBC #### [facility] [address] [place] [address] Dr. Duy Gramajo (RBC) [Mass/Vol]33.7 g/sNMhfbaw29.9-35.2The [facility] HospitalComment on above:Performed By: #### CBC #### [facility] [address] [place] [address] Dr. Duy Gramajo (RBC) [Entitic vol]87.7 zMIvejvc23.0-94.0The [facility] HospitalComment on above:Performed By: #### CBC #### [facility] [address] [place] [address] Dr. Duy Valladares #0.4 103/ulNormal0.3-0.8The [facility] HospitalComment on above:Performed By: #### CBC #### [facility] [address] [place] [address] Dr. Duy Simeonocytes/100 WBC (Bld)9.4 %Normal1.7-12.0[facility] Comment on above:Performed By: #### CBC #### [facility] [address] [place] [address] Dr. Duy Sweeney #2.5 103/ulNormal1.4-6.5The [facility] HospitalComment on above:Performed By: #### CBC #### [facility] [address] [place] [address] Dr. Duy Anneutrophils/100 WBC (Bld)55.0 %Tjbekt25.0-75.0The [facility] HospitalComment on above:Performed By: #### CBC #### [facility] [address] [place] [address] Dr. Duy Guolet mean volume (Bld) [Entitic vol]9.4 fLCritically low 9.5-13.5The [facility] HospitalComment on above:Performed By: #### CBC #### [facility] [address] [place] [address] Dr. Duy JamesPLT142 103/ulCritically tdb229-529Lgu [facility] HospitalComment on above:Performed By: #### CBC #### [facility] [address] [place] [address] Dr. Duy JamesRBC4.13 106/ulCritically low4.70-6.10The [facility] HospitalComment on above:Performed By: #### CBC #### [facility] [address] [place] [address] Dr. Duy JamesWBC4.6 103/ulNormal4.0-11.0The [facility] HospitalComment on above: Performed By: #### CBC #### [facility] [address] [place] [address] Dr. Duy JamesFERRITINon 37-54-2995Zlskaugr [Mass/Vol]274.0 ng/mLNormal 26.0-388.0The [facility] HospitalComment on above:Performed By: #### CBC #### [facility] [address] [place] [address] Dr. Duy Solomon AND TIBCon 02-25-2022% EYAIJYZTYF01.8 %NormalThe [facility] County HospitalComment on above:Performed By: #### CBC #### [facility] [address] [place] [address] Dr. Duy Solomon [Mass/Vol]97.0 ug/gMOzslbu14.0-175.0[facility] Comment on above:Performed By: #### CBC #### [facility] [address] [place] [address] Dr. Duy JamesTIBC CJBXLE643.0 ug/nMNnlhxz301.0-450.0[facility] Comment on above:Performed By: #### CBC #### [facility] [address] [place] [address] Dr. Yilan ChangVIT B12 AND FOLATEon 37-10-7244Osxlqvizx (Vitamin B12) [Mass/Vol] 817.0 pg/cGKztntk405.0-986.0The [facility] HospitalComment on above:Performed By: #### CBC #### [facility] [address] [address] [address] Duy JamesFOLATE16.90 ng/mLNormal8.60-58.90The [facility] HospitalComment on above:Performed By: #### CBC #### [facility] [address] [address] [address] Duy JamesXR CHEST 2 Von 02-35-0877CT CHEST 2 VEXAM: XR CHEST 2 V HISTORY: Pneumonia EXAM: XR CHEST 2 V INDICATION: 66 years old Male Pneumonia COMPARISON: October 12, 2021 FINDINGS: The cardiac silhouette is normal. There is no pulmonary edema. The lungs are clear. There is no pneumonia. There is no pneumothorax. There is no abnormal foreign body. IMPRESSION: There is no acute abnormality. Electronically authenticated by: ALEXA MCKENZIE Date: 2021-12-28 13:59[facility] ShawCOVID Quick Testingon 56-87-8774SvewiiTfgszqhyVrozs [employer] Other Quick Fluon 49-00-3065WQLNZ Ab CF (S) [Titer]Negative [facility] [employer] Other FLUBV Ab CF (S) [Titer]NegativeMulticare Health [employer] Other COVID Quick Testingon 89-14-8379RveheeApyatntsIdpzj [employer] Other Vital Signs Date TimeVital SignValuePerforming BuhxemoyiOshecvmc53-44-3994 10:04-0400Body .8 cmBenjamin Ball DO Work Phone: [facility]10-22-2025 10:04-0400 Body mass index (BMI) [Ratio]34.2 kg/p0Lzarpvuf Ball DO Work Phone: [facility]10-22-2025 10:04-0400 Body .18 kgBenjamin Ball DO Work Phone: [facility]10-22-2025 10:04-0400 Diastolic blood wazwcxiy79 mm[Hg]Gio Ball DO Work Phone: [facility]10-22-2025 10:04-0400 Heart rate62 /minBenjamin Ball DO Work Phone: [facility]10-22-2025 10:04-0400 Respiratory rate12 /minBenjamin Ball DO Work Phone: [facility]10-22-2025 10:04-0400 Systolic blood yhirrluj858 mm[Hg]Gio Ball DO Work Phone: [facility]06-06-2025 10:11-0400 Body txqruw597.8 cmSt. [facility]06-06-2025 10:11-0400Body mass index (BMI) [Ratio]33.7 kg/c1NgagijrhuSt. Elizabeth Hospital06-06-2025 10:11-0400Body kwswoj829.76 kgSt. [facility] Hospital06-06-2025 10:11-0400Diastolic blood baysrmtb50 mm[Hg][facility] 11-29-2024 10:11-0400Heart rate58 /[facility] 11-29-2024 10:11-0400Respiratory rate12 /[facility] 11-29-2024 10:11-0400Systolic blood hmonnvmj755 mm[Hg][facility]09-05-2024 09:55-0400Body lpgnul006.8 cmSt. [facility] 02-29-2024 09:55-0400Body mass index (BMI) [Ratio]33.7 kg/r2NzzwwcbxrSt. [facility] Hospital09-05-2024 09:55-0400Body viylac511.65 kgSt. [facility] Hospital09-05-2024 09:55-0400Diastolic blood xlpwivii23 mm[Hg][facility]09-05-2024 09:55-0400Heart rate67 /[facility]09-05-2024 09:55-0400Respiratory rate12 /[facility]09-05-2024 09:55-0400Systolic blood seqljdsf930 mm[Hg][facility]07-01-2024 07:50-0400Diastolic blood rzjbenxt22 mm[Hg] Meghan Lue [facility]07-01-2024 07:50-0400Heart rate57 /minKathy Lue [facility]07-01-2024 07:50-0400Mean blood ocdqdkpb91 mm[Hg]Meghan Lue [facility]07-01-2024 07:50-0400 Systolic blood mm[Hg]Meghan Lue [facility]07-01-2024 07:49-0400Heart rate62 /minKathy Lue [facility]07-01-2024 07:49-0150SvI8% (BldA) [Mass fraction]98 %Meghan Lue [facility]07-01-2024 07:48-0400Body qztdgufgnow61.06 [degF]Meghan Lue [facility]07-01-2024 07:48-0400Blood Pressure LocationKathy Lue [facility]07-01-2024 07:48-0400 Diastolic blood ixkoxypr44 mm[Hg]Meghan Lue [facility]07-01-2024 07:48-0400Mean blood uvgjkzlm12 mm[Hg]Meghan Lue [facility]07-01-2024 07:48-0400 Systolic blood byqtkuuo763 mm[Hg]Meghan Lue [facility]07-01-2024 07:48-0400 Respiratory rate16 /minKathy Lue [facility]06-05-2024 10:55-0400Blood Pressure LocationKathy Lue [facility]06-05-2024 10:55-0400Diastolic blood vtuyxtfb03 mm[Hg]Meghan Lue [facility]06-05-2024 10:55-0400Heart rate68 /minKathy Lue [facility]06-05-2024 10:55-0400Respiratory rate16 /minKathy Lue [facility]06-05-2024 10:55-0400Systolic blood wwpjycoq524 mm[Hg]Meghan Lue [facility]06-04-2024 08:42-0400Body joxwga274.8 cmSt[facility]06-04-2024 08:42-0400Body mass index (BMI) [Ratio]33.2 kg/k1AwpaddwluSt. Elizabeth Hospital06-04-2024 08:42-0400Body kgSt. [facility] Hospital06-04-2024 08:42-0400Diastolic blood opwvxqvv60 mm[Hg][facility]06-04-2024 08:42-0400Heart rate64 /[facility]06-04-2024 08:42-0400Respiratory rate12 /[facility]06-04-2024 08:42-0400Systolic blood mm[Hg][facility]12-22-2023 10:00-0500Diastolic blood mm[Hg] Meghan Lue [facility] [place] 971372-22-2023 10:00-0500Mean blood sdlozuse618 mm[Hg]Meghan Lue [facility] [place] 971372-22-2023 10:00-0500Systolic blood nmrdsmoz215 mm[Hg]Meghan Lue [facility] [place] 971372-22-2023 09:44-0500Blood Pressure LocationKathy Lue [facility] [place] 971372-22-2023 09:44-0500Body xugpvirrlof54.16 [degF]Meghan Lue [facility] [place] 971372-22-2023 09:44-0500Diastolic blood mm[Hg]Meghan Lue [facility] [place] 971372-22-2023 09:44-0500Heart rate78 /minKathy Lue [facility] [place] 971372-22-2023 09:44-0500Systolic blood mm[Hg]Meghan Lue [facility] [place] 971372-12-2023 17:10-0500Diastolic blood hyxljheu35 mm[Hg]Meghan Lue [facility]12-12-2023 17:10-0500Heart rate60 /minKathy Lue [facility]12-12-2023 17:10-0500 Respiratory rate16 /minKathy Lue [facility]12-12-2023 17:10-3770OuE5% (BldA) [Mass fraction]100 %Meghan Lue [facility]12-12-2023 17:10-0500 Systolic blood mm[Hg]Meghan Lue [facility]12-12-2023 17:02-0500Heart rate62 /minKathy Lue [facility]12-12-2023 17:02-0199RwT4% (BldA) [Mass fraction]100 %Meghan Lue [facility]12-12-2023 17:02-0500 Respiratory rate16 /minKathy Lue [facility]12-12-2023 16:52-0500 Diastolic blood mpluprtt13 mm[Hg]Meghan Lue [facility]12-12-2023 16:52-0500Heart rate60 /minKathy Lue [facility]12-12-2023 16:52-2971TqI4% (BldA) [Mass fraction]97 %Meghan Lue [facility]12-12-2023 16:52-0500 Systolic blood ncuztcfg75 mm[Hg]Meghan Lue [facility]12-12-2023 16:29-0500 Diastolic blood iyhurtlr09 mm[Hg]Meghan Lue [facility]12-12-2023 16:29-0500 Systolic blood ponaqcgd055 mm[Hg]Meghan Lue [facility]12-12-2023 14:00-0500Blood Pressure LocationKathy Lue [facility]12-12-2023 14:00-0500Mean blood mm[Hg]Meghan Lue [facility]12-12-2023 14:00-0500 Respiratory rate18 /minKathy Lue [facility]11-15-2023 10:54-0500Blood Pressure LocationKathy Lue [facility]11-15-2023 10:54-0500Diastolic blood olissxio45 mm[Hg]Meghan Lue [facility]11-15-2023 10:54-0500Heart rate68 /minKathy Lue [facility]11-15-2023 10:54-0500Respiratory rate16 /minKathy Lue [facility]11-15-2023 10:54-0500Systolic blood taojiqsk227 mm[Hg]Meghan Lue [facility]10-17-2023 11:40-0400Blood Pressure LocationJENNIFER FLAKO [facility]10-17-2023 11:40-0400Diastolic blood mm[Hg]THERESA FLAKO [facility]10-17-2023 11:40-0400Heart rate68 /minJENNIFER FLAKO [facility]10-17-2023 11:40-0400Respiratory rate16 /minJENNIFER FLAKO [facility]10-17-2023 11:40-0400Systolic blood fjsppirb009 mm[Hg]THERESA FLAKO [facility]06-27-2023 10:11-0400Blood Pressure LocationJENNIFER FLAKO [facility]06-27-2023 10:11-0400Diastolic blood kvtykmks43 mm[Hg]THERESA FLAKO [facility]06-27-2023 10:11-0400Heart rate70 /minJENNIFER FLAKO [facility]06-27-2023 10:11-0400Respiratory rate16 /minJENNIFER FLAKO [facility]06-27-2023 10:11-0400Systolic blood eihkcesc175 mm[Hg]THERESA FLAKO [facility]05-31-2023 08:30-0400Body ajmwns934.8 cmBenjamin Ball Other [employer] Other 05-31-2023 08:30-0400Body mass index (BMI) [Ratio] 32.42 kg/d6Tevdyvxy Ball Other [facility] [employer] Other 05-31-2023 08:30-0400Body oolyey690.51 kgBenjamin Ball Other [facility] [employer] Other 05-31-2023 08:30-0400Diastolic blood fozdrduq17 mm[Hg] Gio Ball Other [employer] Other 05-31-2023 08:30-0400Respiratory rate12 /minBenjamin Ball Other [employer] Other 05-31-2023 08:30-0400Systolic blood yojxyege654 mm[Hg] Gio Ball Other [employer] Other 03-08-2023 10:00-0500Body nzruft542.8 cmBenjamin Ball Other [employer] Other 03-08-2023 10:00-0500Body mass index (BMI) [Ratio] 33.43 kg/q6Tyfbvimj Ball Other [employer] Other 03-08-2023 10:00-0500Body egrlpn948.69 kgBenjamin Ball Other [employer] Other 03-08-2023 10:00-0500Diastolic blood nyzujlrp72 mm[Hg] Gio Ball Other [employer] Other 03-08-2023 10:00-0500Respiratory rate16 /minBenjamin Ball Other [employer] Other 03-08-2023 10:00-0244EeM9% (BldA) [Mass fraction]98 % Gio Ball Other [employer] Other 03-08-2023 10:00-0500Systolic blood eaaozgxi157 mm[Hg] Gio Ball Other [employer] Other 05-03-2022 09:11-0400Blood Pressure Clemencia Kern Jr. [facility] 05-03-2022 09:11-0400Diastolic blood wyssbljo03 mm[Hg] Daniel Kern Jr. [facility] 05-03-2022 09:11-0400Heart rate78 /Shu Kern Jr. [facility] 05-03-2022 09:11-0400Respiratory rate16 /Shu Kern Jr. [facility] 05-03-2022 09:11-0400Systolic blood ppwwuieo606 mm[Hg] Daniel Kern Jr. [facility] 02-12-2022 11:00-0500Body miegyk292.8 cmAmbkimberly Starks Other [employer] Other 02-12-2022 11:00-0500Body mass index (BMI) [Ratio] 30.13 kg/m4WtywrGina Starks Other [employer] Other 02-12-2022 11:00-0500Body ajcpnnuwhxg573 [degF]Gina Starks Other [employer] Other 02-12-2022 11:00-0500Body benyqm92.26 kgGina Starks Other [employer] Other 02-12-2022 11:00-0500Respiratory rate18 /minAmber Raudel Other [employer] Other 02-12-2022 11:00-9361VtH1% (BldA) [Mass fraction]97 % Gina Starks Other [employer] Other 11-29-2021 18:15-0500Body .8 cmSakbarkamilay CoronadoRosa Other [employer] Other 11-29-2021 18:15-0500Body mass index (BMI) [Ratio] 30.85 kg/w4Kzmasndyl Rosa Other [employer] Other 11-29-2021 18:15-0500Body eaynsdmmuwc09.9 [degF] Sybil Lee Other [employer] Other 11-29-2021 18:15-0500Body qnjukx62.52 kgStdougkamilay Rosa Other [employer] Other 11-29-2021 18:15-9151EjR2% (BldA) [Mass fraction]91 % Sybilsofía Lee Other [employer] Other Encounters Encounter DateEncounter TypeCare ProviderFacilityStart: 34-95-8161fudlddknlh Meghan ZafareFacility:EU [place]vueStart: 04-16-2025 End: 21-23-0429uemfrlesngMeidvcdd Ball DO Work Phone: -[facility] [employer] [facility] ClinicStart: 04-16-2025 End: 32-17-1681Jpfhopv encounter procedureBensherifjacqueline Cavanaugh DO-[facility] Work Phone: Start: 64-51-6456Tae-patient / Non-visitBensherifjacqueline Cavanaugh -[facility] Work Phone: Start: 03-07-2025 End: 33-64-4488lwqzexvmlyMMZZVMetroHealth Parma Medical Centertart: 11-29-2024 End: 31-57-1362rqqrzovoxjFlssocxcqElyria [facility] Work Phone: Start: 11-29-2024 End: 16-67-8430Izsufvp encounter procedureUnc Health Pardee Physician GroupOhio [facility] Work Phone: Start: 10-23-2024 End: 19-27-8367wxpcdjmyqrDkcol M. LueFacility:FTMCStart: 10-23-2024 End: 76-94-1274Cgedlif encounter Luis Fernando Brito [facility] Start: 10-21-2024 End: 67-57-0018tffvihqiigYjihh J YouskoFacility:FTMCStart: 10-21-2024 End: 17-40-3685Javjnfz encounter procedureStewilmar Bush [facility] Start: 89-55-7930Qcv-patient / Non-visitFircommunity health systems Physician GroupVirginia [facility] Work Phone: Start: 00-24-3102vbvxhrrekeDcxtt M. LueFacility:EU [place]Start: 10-10-2024 End: 87-45-1700axwqwnghbiYfdax M. LueFacility:EU [place]walkStart: 76-10-6642Ovp- patient / Non-visitUnc Health Pardee Physician Group-[facility] Work Phone: Start: 38-52-7683khobxpijxiKkajt M. LueFacility:EU [place]kyStart: 09-04-2024 End: 41-57-8300dnppjgrzqyCROMPMetroHealth Parma Medical Centertart: 03-29-2024 End: 28-19-2798wrlikziefhMuzcs M. LueFacility:EU [place]kyStart: 03-29-2024 End: 24-47-6847Xvirtur encounter procedureMeghan Brito [facility] Start: 53-00-9736Rav-patient / Non-visitDO Gio Cavanaugh Work Phone: [facility] Work Phone: Start: 03-06-2024 End: 79-92-9318radagdizvtYS [facility] Work Phone: [facility] Work Phone: Start: 03-06-2024 End: 53-46-7395Dxwwkddf ReferredDO [facility] Work Phone: [facility]-LAB Path Spec Nas HospStart: 03-06-2024 End: 04-50-7687jwssvcdyldGgybe M. LueFacility:CD:[id number]: 03-06-2024 End: 63-69-1376Ukm-SiteMeghan Brito [facility] Start: 62-24-9659Jff-patient / Non-visitDO Gio Cavanaugh Work Phone: [facility] Work Phone: Start: 02-29-2024 End: 40-68-4897uvhiiuhaovOdydbaxxlRiverview Health Institute Work Phone: Start: 02-29-2024 End: 33-28-2121Exzruqa encounter procedureUnc Health Pard[facility] Physician Group-[facility] Work Phone: Start: 49-94-1047Nec-patient / Non-visitUnc Health Pardee Physician GroupVirginia [facility] Work Phone: Start: 05-18-6519wwidimapxeEsmgm AmandeepReinier LueFacility:EU [place]kyStart: 25-57-9164ixorfzixhjSofmg AmandeepReinier LueFacility:FTMCStart: 12-25-2023 End: 48-80-3182Igaqtlr encounter procedureMeghan AmandeepReinier Zafarsummer [facility] Start: 11-29-2023 End: 67-96-2148Grq-admission assessmentMeghan AmandeepReinier Brito [facility] Start: 11-29-2023 End: 23-08-8927yqxfyvzmpiRbaws AmandeepReinier LueFacility:EU BellevueStart: 11-29-2023 End: 05-13-3460Mhyynrz encounter procedureMeghan Brito [facility] start: 11-28-2023 End: 43-57-5441xqpfavdzcuZaatojfmrRiverview Health Institute Work Phone: Start: 11-28-2023 End: 66-24-5292Bvdhuubvb for general adult medical examination without abnormal findingsCleveland Clinic Fairview Hospitaltart: 11-28-2023 End: 63-44-5189Tsavvzr encounter procedureUn[facility] Work Phone: Start: 98-36-1104Pek-patient / Non-visitUn[facility] Work Phone: Start: 07-31-2023 End: 12-30-0912Lgntqjr encounter procedureMeghan Brito [facility] Start: 06-30-2023 End: 99-97-5779Adc Drop offMeghan Brito [facility] Start: 06-30-2023 End: 02-10-2363Aftwjey encounter procedureMeghan Brito [facility] Start: 06-22-2023 End: 09-44-9159ypsblcqxocPtlivowd Ball Other noAmiare [employer] Other Start: 55-31-0057Lnmtkains encounterBenjamin BallFPG [facility] ClinicStart: 06-21-2023 End: 67-49-0379zzpsgbuukxGfnusepe Ball Other [facility] [employer] Other Start: 30-07-2191Srmwfvgbk encounterBenjamin BallFPG [facility] ClinicStart: 06-21-2023 End: 31-72-1413Uifgrqq encounter procedureMeghan Brito [facility] start: 06-20-2023 End: 51-71-0267mpzgqslfaoWcsywkow Ball Other [facility] [employer] Other Start: 19-09-6282Cwtqcrwub encounterBenjamin BallFPG [facility] ClinicStart: 06-18-2023 End: 87-33-6554fmrmnmposkGkgoiwav Ball Other [facility] [employer] Other Start: 17-46-3903Dxtrfedwl encounterBenjamin BallFPG [facility] ClinicStart: 06-16-2023 End: 30-47-6799Brmozeb encounter procedureMeghan Brito [facility] Start: 06-15-2023 End: 58-66-6887Kohuwbh encounter procedureSophiekevin Brito [facility] Start: 06-14-2023 End: 12-13-3768Squhkop encounter procedureSophiekevin Brito [facility] start: 06-06-2023 End: 38-44-8819qteaxvhwkrFPRBZ L CHANG MDFacility:[id number]: 06-06-2023 End: 85-15-4287Cxihehcwf to same day surgery jamesMeghan Briot [facility] Start: 06-05-2023 End: 54-85-3069lwgcgejkwyHsjjfpwg Ball Other [employer] Other Start: 62-33-8107Ngvmbyoeu encounterBenjamin BallREBAG [facility] ClinicStart: 05-10-2023 End: 65-37-7263Jhwrimk encounter procedureSophiekevin Brito [facility] start: 04-27-2023 End: 33-63-5227tpiaujvpegHxecgkpq Ball Other noAmiare [employer] Other Start: 73-84-8161Qklkicqcr encounterBenjamin BallFPG [facility] ClinicStart: 04-11-2023 End: 32-80-9572Pbshtdn encounter procedureJECESAR FLEMING [facility] start: 04-04-2023 End: 95-85-7897gsovgijomvKayexwiz Ball Other no[employer]by Other Start: 31-51-9383Cdtquqtwb encounterBenjamin BallREBAG [facility] ClinicStart: 04-03-2023 End: 29-63-7446Nednmdf encounter procedureDO Gio Cavanaugh Work Phone: [facility] [place] Work Phone: Start: 04-03-2023 End: 35-84-1446kexsdxnejjIQ Gio Cavanaugh Work Phone: [facility] Work Phone: Start: 12-20-2022 End: 03-18-4038Rnyvcfn encounter procedureJENNIFER E FLAKO [facility] start: 12-13-2022 End: 41-08-6729cscgbppklaAqvcnftd Ball Other [employer] Other Start: 00-44-0253Nyxvrcilp encounterBenjamin BallREBAG [facility] ClinicStart: 12-12-2022 End: 22-57-0563ejsijxbxllHwdsdoov Ball Other [employer] Other Start: 05-38-6840Vdybmynba encounterBenjamin BallREBAG [facility] ClinicStart: 11-23-2022 End: 83-77-2982jcvssahdzwCnfjnnjo Ball Other [employer]by Other Start: 56-75-1388Ozkvmvakv for general adult medical examination without abnormal findingsBentylor BallREBAG [facility] Medical ClinicStart: 07-68-2918Tsyczeeu preventive med est patient 65yrs& olderBentylor MaurerG [facility] ClinicStart: 11-07-2022 End: 91-40-0489vupisughwzMR GIO BALLFacility:G1Dkznn: 08-31-2022 End: 04-74-0678tbscxmcfmxKifoalij Ball Other [employer]by Other Start: 78-38-5399Boiklo outpatient visit 25 minutes Gio Cavanaugh Medical ClinicStart: 08-26-2022 End: 85-08-0422Scwduhxoqs and management of inpatientDR DARIUS GIANG .Facility:H1 Start: 05-18-2022 End: 22-89-2142cmvgkzpdotGX BENJAMIN MAOFacility:A5Nxovh: 02-25-2022 End: 85-16-1165cusauvtxwhJM BENJAMIN BALLFacility:W9Rnoyp: 63-70-0155dsqozawwqn DR GIO CAVANAUGHFacility:G8Hszdj: 12-28-2021 End: 63-99-8964jtixroklqhWA BENJAMIN BALLFacility:R3Lwliu: 37-23-2266Fhpar health examinationGio Cavanaugh Other no[employer]by Other Start: 10-26-2021 End: 69-48-0934Jzwocvq encounter procedureDaniel Kern Jr. [facility] start: 08-07-2021 End: 24-82-8602vpduagoadzEszlh Keller Other no5by Other Start: 52-82-0931Ucvubl outpatient visit 15 minutes Gina StarksFPEmily Urgent Care ClydeStart: 05-24-2021 End: 42-61-1070xsfumqyssmVfidsritd Breault Other no5by Other Start: 90-41-2190Xtssfa outpatient visit 15 minutes Sybil LeeFPG [facility] Procedures DateProcedureProcedure DetailPerforming ClinicianStart: 19-27-2739Fwfglprnfl Meghan Brito Start: 53-42-3436Iqaksdlj biopsy sample (specimen)Meghan Brito Start: 42-15-9178OA prostate wo/w conDO Gio Cavanaugh Work Phone: Start: 23-20-2320Wrplhfwigwo biopsy of prostate using ultrasound guidanceDaniel Kern Jr. start: 18-41-2266Xovpgjzai for malignant neoplasm of colonBentylor Cavanaugh Other Start: 31-72-7476Gziubgp examination of patient Gio Cavanaugh Other Start: 26-26-8587Fybdquyqnol biopsy of prostate using ultrasound guidanceDaniel Kern Jr. Hernia Stewart Kern Jr. screening for malignant neoplasm of prostateBentylor Cavanaugh Other TonsillectoMadhavi Kern Jr. Plan of Treatment DateCare ActivityDeAvita Health System [facility] Immunizations Immunization DateImmunizationNotesCare QuuonrouRbvvxsvz69-47-3985koigtwkvk, high dose seasonal, preservative-freeBenjamin Ball DO Work Phone: [facility]12-04-2024influenza, high dose seasonal, preservative-freeSt. [facility]11-30-2023 influenza virus vaccine, unspecified formulationSt. [facility] Hospital11-30-2023influenza, high dose seasonal, preservative-freeBenjamin Ball Other [place] [employer] Other 381483-61-0325yntdgyngkbqp polysaccharide vaccine, [address] [facility]09-01-2022influenza virus vaccine, unspecified formulationTHERESA FLEMING [facility]09-01-2022influenza, high dose seasonal, preservative-freeGio Cavanaugh Other [facility]05-26-2022 pneumococcal conjugate vaccine, [address] [facility]03-09-2022COVID-19 Vaccine Moderna - Documentation Purposes OnlyGio Cavanaugh Other [facility]01-01-2022pneumococcal conjugate vaccine, 13 valentBealethea Cavanaugh Other [facility]03-10-2021SARS-CoV-2 (COVID-19) Ad26 vaccine, shabnamPalm Beach Gardens Medical CenterReinier [facility] 11901626-08-5128kfrvbxwod virus vaccine, split virus (incl. purified surface antigen)Gio Cavanaugh Other [employer] Other 11810194-09-8152zagdksxln virus vaccine, unspecified formulationSt. [facility]11-14-2018influenza virus vaccine, split virus (incl. purified surface antigen)Gio Cavanaugh Other [facility] [employer] Other 11320053-55-4590kyppjoqhf virus vaccine, unspecified formulationSt. [facility] Payers DatePayer CategoryPayerPolicy [id number] [id number] [id number]-[id number] 2.16.840.6.17680[id number] 2.16.840.1.853696.3.579.2.593 [id number] 2.16.840.1.576478.3.57[id number] 2.16.840.1.806445.3.57[id number] 2.16.840.1.152378.3.57[id number] 2.16.840.1.351174.3.57[id number] 2.16.840.1.729637.3.57[id number] 2.16.840.1.902890.3.57[id number] 2.16.840.1.471856.3.57[id number] 2.16.840.1.575855.3.57[id number] 2.16.840.1.537605.3.57[id number] 2.16.840.1.323830.3.57[id number] 2.16.840.1.338797.3.57[id number] 2.16.840.1.435024.3.57[id number] 2.16.840.1.253478.3.57[id number] 2.16.840.1.387509.3.57[id number] 2.16.840.1.498503.3.57[id number] 2..840.1.591586.3.57[id number] 2.16.840.1.367750.3.579.2.727Private Health [id number] 2.16.840.1.9[id number] 2.16.840.1.434207.3.579.2.531 Social History DateTypeDetailFacilityStart: 86-72-7118Dgbhsbf smoking statusHeavy tobacco smoker (finding)[facility] [employer] Other [facility] [employer] Other Start: 12-20-2022 End: 63-13-9314Zwvfvsn smoking statusEx-smoker (finding)[facility] BellevueStart: 06-16-2023 End: 34-28-8826Jepzqvu smoking statusNeverExec[facility] BellevueStart: 33-87-6139Nqkdqjs smoking status NHISSmoker (finding)[facility] Hospitaltart: 33-57-6046Ydk Assigned [facility] HospitalTobaccoquit 2 years ago Tobacco Use:.[facility] Tobacco [facility] statusK[facility] Start: 01-29-2018 End: 58-56-6500UkmWzwj (finding)[facility]art: 11-29-2024 Tobacco smoking status NHISCurrent some day smokerSt. [facility] Functional Status BtqfCpxwtgchnzZabjutDaksydpm60-70-4510Jxovgduhig StatusN/AExec[facility] of [facility]07-01-2024Functional StatusNoK[facility]06-05-2024Functional StatusN/A[facility]02-05-2024Functional StatusN/[facility]12-22-2023Functional StatusN/A[facility]11-21-2023Functional StatusN/[facility] 98-12-8153Modznptugj StatusN/A[facility]10-17-2023Functional StatusN/A[facility]06-27-2023Functional StatusN/A[facility] Clinical Notes 05-24-2021 to 03-07-2025 Note Date & WzulYsyjMghmophq76-63-1034 NoteBellevue [facility] Note Reason for cardiology [...] HbA1c 5.3% Total b (more content not included)...[facility] 10-10-2024 NotePatient Education Urology Benign Prostatic Hyperplasia Benign prostatic [...] this procedure, a tool is inserted through theopening at the tip of the penis (urethra). [...] procedure uses radio frequencies to destroy and removea small amount of prostate tissue. ? Interstitial laser coagulation (ILC). This procedure uses a laser to destroy and remove a small amount of prostate tissue. ? Transurethral electrovaporization (TUVP). This procedure uses electrodes to destroy and remove a small amount of prostate tissue. ? Prostatic urethral lift. This procedure inserts an implant to push the lobes of the prostate awayfrom the urethra. Follow these instructions at home: ??? Take eath-fqz-xwyjiee and prescription medicines only as told by [...] symptoms do not get (more content not included)...[facility]03-12-2025 NoteBellevue [facility] Cardiology Clinic Note Reason for cardiology [...] due to COPD [facility] (more content not included)...[facility] 03-29-2024 Hospital Discharge instructions Patient Education 03/29/2024 [...] urethra. Follow these instructions at home: Take wxgo-gnf-xqpohah and prescription medicines only as told by [...] provider. Document Revised: 12/29/2021 Document Reviewed: 12/29/2021 Telepathy Patient Education 2023 MUBI. Follow Up Care 03/07/2024 08:22:06 With:Daryl HAMILTON, LOGAN Villalpando, URO Address: [address] [place] [phone] When: Unknown Comments:6 mos [facility] 10-04-2024 NotePatient Education Urology Benign Prostatic Hyperplasia Benign prostatic [...] urine that may remain in your bladder afteryou finish urinating. ? A digital rectal exam. [...] this procedure, a tool is inserted through theopening at the tip of the penis (urethra). [...] procedure uses radio frequencies to destroy and removea small amount of prostate tissue. ? Interstitial laser coagulation (ILC). This procedure uses a laser to destroy and remove a small amount of prostate tissue. ? Transurethral electrovaporization (TUVP). This procedure uses electrodes to destroy and remove a small amount of prostate tissue. ? Prostatic urethral lift. This procedure inserts an implant to push the lobes of the prostate awayfrom the urethra. Follow these instructions at home: ? Take jlsj-lvy-kqozvlg and prescription medicines only as told by [...] You develop side effec (more content not included)...[facility]06-19-2024 [id number]#1.00TIFKAIjean [facility]06-05-2024 Hospital Discharge instructions Patient Education 11/29/2023 11:20:14 [...] Follow these instructions at home: Medicines Take ojdw-efi-iuntgyo and prescription medicines only as told by your health care provider. If you were prescribed an antibiotic medicine, take it as told by your health care provider. Do notstop taking the antibiotic even if you start [...] to keep your urine pale yellow. Take goic-goj-xovagof or prescription medicines. Eat foods that are [...] you need help quitting, ask your health careprovider. If you go home with a tube draining your urine (urinary catheter), care for the catheter as told byyour health care provider. Wear compression stockings as [...] provider. Document Revised: 03/08/2022 Document Reviewed: 03/08/2022 Telepathy Patient Education 2022 MUBI. 11/29/2023 11:20:13 Transurethral Resection of the Prostate [...] including vitamins, herbs, eye drops, creams, and gxya-ygg-mgfceky medicines. Any problems you or family members [...] provider tells you to take them. Taking gkyv-xsi-ngrrlvi medicines, vitamins, herbs, and supplements. Surgery safety [...] provider. Document Revised: 03/08/2022 Document Reviewed: 03/08/2022 Telepathy Patient Education 2022 MUBI. Follow Up Care 08/02/2023 09:34:46 With:Daryl HAMILTON, Meghan Tucker, URL, URO Address: [address] [phone] When: Unknown [facility] 02-05-2024 Evaluation + Plan noteExtracted from:Title: EU - Clinic HOPD NoteAuthor:Daryl HAMILTON, Meghan TuckerDate:07/31/23 Impression and Plan Assessment and Plan: Diagnosis: BPH with urinary obstruction (EXZ47-FJ N40.1, Discharge, Medical), Pelvic lymphadenopathy (IHC53-EF R59.0, Working, Medical), Chronic prostatitis (XKH81-MG N41.1, Discharge, Medical), Feeling of incomplete bladder emptying (MIK58-BD R39.14, Discharge, Medical), Grosshematuria (NSZ45-PY R31.0, Discharge, Medical). Assessment and Plan: Diagnosis: BPH with urinary obstruction (USF73-VD N40.1, Discharge, Medical), Chronic prostatitis (DVO26-AO N41.1, Discharge, Medical), Feeling of incomplete bladder emptying (HQS60-LV R39.14, Discharge, Medical), Gross hematuria (TUH62-JL R31.0, Discharge, Medical), Pelvic lymphadenopathy (DOT19-JW R59.0, Working, Medical). 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 Gross hematuria - after [facility] CTU 07/05/23 at [facility] - neg for upper tract filling [...] [facility] 4 [facility] Hospital Discharge instructions Patient Education 07/31/2023 09:05:54 [...] including vitamins, herbs, eye drops, creams, and sjuk-whf-ktapsug medicines. Any problems you or family members [...] provider tells you to take them. ?Taking dhvz-imz-fujieix medicines, vitamins, herbs, and supplements. Follow your [...] provider. Document Revised: 09/08/2021 Document Reviewed: 09/08/2021 Telepathy Patient Education 2022 MUBI. 07/31/2023 09:05:54 Transurethral Resection of the Prostate [...] including vitamins, herbs, eye drops, creams, and rmqx-ydc-wiemdbt medicines. Any problems you or family members [...] provider tells you to take them. Taking vxtx-wjl-psenrxw medicines, vitamins, herbs, and supplements. Surgery safety [...] provider. Document Revised: 03/08/2022 Document Reviewed: 03/08/2022 Telepathy Patient Education 2022 MUBI. 07/31/2023 09:05:54 EU - Cystoscopy Discharge Instructions [...] to the nearest emergency room or call 1 Diet you may resume your normal diet. Activity you may resume your normal activities Call if you have a fever over 100 degrees. Follow Up Care 06/30/2023 10:04:12 With:Meghan Brito Address: [address] [place] [address]- [phone] Business (1) When: Unknown Comments:Office to schedule follow up in 3-4 months or call sooner for procedure (pt knows will be done by partner/referred out if during leave) [facility]12-28-2023 Evaluation note* Encounter Date Diagnosis Assessment Notes Treatment Notes Treatment Clinical Notes May, Simple chronic bronchitis (ICD-1 0 - J41.0) [facility] Other 12-27-2023 Evaluation note* Encounter Date Diagnosis Assessment Notes Treatment Notes Treatment Clinical Notes May, Simple chronic bronchitis (ICD-1 0 - J41.0) [facility] Other 12-26-2023 Evaluation note* Encounter Date Diagnosis Assessment Notes Treatment Notes Treatment Clinical Notes May, Simple chronic bronchitis (ICD-1 0 - J41.0) [facility] Other [id number] Hospital Discharge instructions Patient Education 06/16/2023 10:59:22 [...] treatment? Where to find more information [employer] [place] [employer]: www.cancer.org [employer] [place]: www.auanet.org Contact a health care [...] provider. Document Revised: 12/06/2021 Document Reviewed: 12/06/2021 Telepathy Patient Education 2022 MUBI. Follow Up Care 06/16/2023 08:30:52 With:Meghan Brito MD, URL, URO Address: [address] [place] [address]- [phone] When: Unknown Comments:6 mos w/ CT and PSA [facility] 12-20-2023 Hospital Discharge instructions Follow Up Care 06/14/2023 08:28:10 With:Meghan Brito MD, URL, URO Address: When: Unknown [facility] 12-12-2023 Hospital Discharge instructions Patient Education 06/06/2023 16:52:41 EU - Transrectal Ultrasound of the Prostate with US guided biopsy Discharge Instructions (CUSTOM) Transperineal?Biopsy of the Prostate Discharge Instructions After the procedure, it is common to have: Pain and discomfort near your rectum, especially while sitting. [place]-colored urine due to small amounts of blood [...] When: Unknown Comments:Keep scheduled appointment [facility]12-12-2023 Evaluation + Plan noteExtracted from: Title:EU -transperineal prostate biopsyAuthor:Meghan Brito MDDate:06/06/23 Impression and Plan Diagnosis Elevated PSA (IWK11-WB R97.20, Discharge, Medical). Diagnosis Elevated PSA (ICQ55-UC R97.20, Discharge, Medical). Future Appointments Appointment Date:06/14/2023 10:30:00 AM Scheduled Provider:Meghan Brito MD Location:[facility] Appointment Type:URO Office Visit [facility]11-15-2023 Hospital Discharge instructions Follow Up Care 05/10/2023 11:27:04 With:Meghan Brito MD, URL, URO Address: [address] [place] [address]- [phone] When: Unknown [facility] 11-15-2023 Hospital Discharge instructions Patient [...] treatment? Where to find more information [employer] [place] [employer]: www.cancer.org [employer]: www.auanet.org Contact a health care [...] provider. Document Revised: 12/06/2021 Document Reviewed: 12/06/2021 Telepathy Patient Education 2022 MUBI. 05/10/2023 11:11:23 Benign Prostatic Hyperplasia Benign Prostatic [...] urethra. Follow these instructions at home: Take fkef-oxf-zpcrhbs and prescription medicines only as told by [...] provider. Document Revised: 12/29/2021 Document Reviewed: 12/29/2021 Telepathy Patient Education 2022 MUBI. Follow Up Care 04/12/2023 09:16:25 With:Daryl HAMILTON, LOGAN Villalpando, URO Address: When: Unknown Comments:Sched Transperineal Bx of Prostate [facility] 11-02-2023 Evaluation note* Encounter Date Diagnosis Assessment Notes Treatment Notes Treatment Clinical Notes Apr, Primary hypertension (ICD-10 - I 10) [facility] Other 10-17-2023 Hospital Discharge instructions Patient Education [...] treatment? Where to find more information The [place] [employer]: www.cancer.org [employer]: www.auanet.org Contact a health care [...] provider. Document Revised: 12/06/2021 Document Reviewed: 12/06/2021 Telepathy Patient Education 2022 MUBI. Follow Up Care 03/16/2023 16:12:09 With:FLAKO ELLIOTT, THERESA Merida, URL Address: [address] [place] [address] [phone] When: Unknown Comments:f/u with MD in 1 month w/ PSA and Select MDX [facility] 10-10-2023 Evaluation note* Encounter Date Diagnosis Assessment Notes Treatment Notes Treatment Clinical Notes Mar, Primary hypertension (ICD-10 - I 10) [facility] Other 06-27-2023 Hospital Discharge instructions Patient Education [...] treatment? Where to find more information The [place] [employer]: www.cancer.org [employer]: www.auanet.org Contact a health care [...] Document Reviewed: 12/06/2021 Elsevier Patient Education 2022 MUBI. Follow Up Care 10/03/2022 14:27:57 With:FLAKO ELLIOTT, THERESA Merida, URL Address: [address] [place] [address] When: Unknown Comments:Sched Select MDX and MRI of Prostate. [facility] 06-20-2023 Evaluation note* Encounter Date Diagnosis Assessment Notes Treatment Notes Treatment Clinical Notes Nov, Cigarette nicotine d ependence in remission (ICD-10 - F17.211) Started at age 19, quit age 66, 1ppd. LDCT w/o nodules - 11/2022 [facility] Other 06-19-2023 Evaluation note* Encounter Date Diagnosis Assessment Notes Treatment Notes Treatment Clinical Notes Nov, Simple chronic bronchitis (ICD-1 0 - J41.0) Nov,igarette nicotine dependence in remission (ICD-10 - F17.211)Started at age 19, quit age 66, 1ppd. LDCT w/o nodules - 11/2022 [facility] Other 05-31-2023 Evaluation note* Encounter Date Diagnosis Assessment Notes Treatment Notes Treatment Clinical Notes October, Primary hypertension (ICD-10 - I 10) This patient is instructed to consume a healthy, low-fat, low-salt diet. They are also encouraged to continue exercise to achieve/maintain a normal BMI.bpp Patient is instructed on home BP measurements: - rest for 5 minutes w/o talking- positioned w/ feeton floor and arm supported- average best 2/3 readings w/ goal < 135-85 October,Wellness examination (ICD-10 - Z00.00)Healthy diet and exercise. Reviewed age-appropriate preventive testing recommended. October,Simple chronic bronchitis (ICD-10 - J41.0)Continue abstinence from tobacco. No ER visits since last OV GARCÍA as needed, rarely used October,Hyperlipidemia type II (ICD-10 - E78.01)Instructed on diet and exercise with continued statin therapy.Discussed the beneficial effects of lo wering cholesterol in reducing the risk for cerebrovascular and cardiovascular disease. October,astroesophageal reflux disease with esophagitis without hemorrhage (ICD-10 - K21.00)Diet instructions: Smaller portions, avoid eating and laying flat, avoid eating or drinking prior to bedtime. Weight loss. October,igarette nicotine dependence in remission (ICD-10 - F17.211)Started at age 19, quit age 66, 1ppd.Yearly LDCT October,Screening PSA (prostate specific antigen) (ICD-10 - Z12.5)Yearly MARIZA and PSA, f/u Urology [facility] Other 03-08-2023 Evaluation note* Encounter Date Diagnosis Assessment Notes Treatment Notes Treatment Clinical Notes Aug, Chronic obstructive pulmonary disease with (acute) lower respiratory infection (ICD-10 - J44.0) Finish antibiotics and monitor for recurrent fever/chills. Aug,hronic obstructive pulmonary disease with (acute) exacerbation (ICD-10 - J44.1)Finish Prednisone. Continue MDI every 4 hours as needed. Needs yearly LDCT lungs for screening Aug,Essential hypertension (ICD-10 - I10)This patient is instructed to consume a healthy, low-fat, low-salt diet. They are also encouraged to continue exercise to achieve/maintain a normal BMI. Aug,neumonia of right lower lobe due to infectious organism (ICD-10 - J18.9)Finish antibiotics and Prednisone. f/u CXR in month to ensure clearance of infiltrate Aug,Elevated liver enzymes (ICD-10 - R74.8)May be related to pneumonia. Recheck in 4wks. r/o NAFLD, VIDAL r/o hemachromatosis, Autoimmune hepatitis, Hepatitis, alcohol use healthy, low fat diet along w/ exercise and weight loss Aug,igarette nicotine dependence in remission (ICD-10 - F17.211) Continue abstinence [facility] Other 05-03-2022 Hospital Discharge instructions Patient Education [...] urethra. Follow these instructions at home: Take iqeb-[id number] and prescription medicines only as told by [...] 06/12/2006 Document Revised: 05/07/2019 Document Reviewed: 07/17/2017 Telepathy Patient Education 2020 [employer]. Follow Up Care 10/22/2020 09:07:58 With:Erlin Alonso MD, Daniel Tse, URO Address: [facility] [address], [place] [address]- When:10/26/2022 Comments:with PSA [facility] 02-12-2022 Evaluation note* Encounter Date Diagnosis Assessment Notes Treatment Notes Treatment Clinical Notes Jul, Contact with and (watson spected) exposure to other viral communicable diseases (ICD-10 - Z20.828) Advised patient that rapid COVID antigen test and Influenza A/B test was negative today in office. Offered patient COVID PCR test, patient declines at this time. Encouraged supportive care, includingincreasing fluids, rest, OTC cold medications such as Cordicidin HBP, Tylenol/Motrin, cool mist humi dification, throat lozenges. Will send in rx of [...] treatment plan. Patient left in stable condition Jul,therAdditional time spent conducting pre-visit phone call, screening for symptoms, instructions on social distancing, application and removal of PPE, and cleaning of examination room, equipment and supplies was preformed. Patient education given for testing methodology and results. Patient care instructions given in writting by [facility] Care At Home document [facility] Other 11-29-2021 Evaluation note* Encounter Date Diagnosis Assessment Notes Treatment Notes Treatment Clinical Notes Apr, Contact with and (watson spected) exposure to other viral communicable diseases (ICD-10 - Z20.828) Apr,OVID-19 (ICD-10 - U07.1) Today you tested positive for the COVID virus. This mean you need to follow all CDC quarantine guidelines found at coronavirus.[place].gov. It is important to rest, increase fluids, and stay at home. Contact PCP and inform them of results. Medications like Mucinex, Cepacol, Tylenol, saline nasal sprayare over the counter medications that can help with the symptoms. Current guidelines include staying home for at least 10 days, having no fever above 100.4 for 24 hours without medication and having significant improvement of symptoms before you are allowed to stop your quarantine. Contact primary care and ask for guidance is essential to follow up Apr,ronchitis (ICD-10 - J40) Bronchitis is inflammation of airways, it is not caused from bacteria. Antibiotics will not treat this illness. Take medications as directed. Rest and increase fluid intake. Take meds with food to prevent stomach upset. Use inhaler as needed for SOB. Follow up with primary care provider if symptomsdo not improve with treatment plan, although it may take a few weeks for the cough to go away. Smoking increases risk of developing bronchitis. Smoking while sick will cause symptoms to worsen and itwill take longer to get better Apr,Other Additional time spent conducting pre-visit phone call, screening for symptoms, instructions on social distancing, application and removal of PPE, and cleaning of examination room, equipment and supplies was preformed. Patient education given for testing methodology and results. Patient care instructions given in writting by [facility] Care At Home document. [facility] Other Evaluation + Plan note Future Appointments Appointment Date:11/01/2022 08:15:00 AM Scheduled Provider:Daniel Kern Jr., MD Location:[facility] Appointment Type:URO Office Visit Diagnostic Tests Pending * PSA Total 10/26/21 [facility] evaluation + Plan note Future Appointments Appointment Date:04/28/2023 08:15:00 AM Scheduled Provider:Meghan Brito MD Location:[facility] Appointment Type:URO Office Visit Diagnostic Tests Pending * PSA Total 04/11/23 [facility] evaluation + Plan note Future Appointments Appointment Date:06/06/2023 02:30:00 PM Scheduled Provider: Location:[facility] Appointment Type:Surgery FT Appointment Date:06/14/2023 10:30:00 AM Scheduled Provider:Meghan Brito MD Location:[facility] Appointment Type:URO Office Visit [facility] evaluation + Plan note Future Appointments Appointment Date:06/15/2023 03:30:00 PM Scheduled Provider:Meghan Brito MD Location:[facility] Appointment Type:URO Office Visit [facility] evaluation + Plan note Future Appointments Appointment Date:06/21/2023 08:45:00 AM Scheduled Provider:Meghan Brito MD Location:[facility] Appointment Type:URO Office Visit [facility] Evaluation + Plan note Future Appointments Appointment Date:06/30/2023 09:15:00 AM Scheduled Provider: Location:[facility] Appointment Type:URO Nurse Visit Diagnostic Tests Pending * PSA Free & Total 06/16/23 [facility] Evaluation + Plan note Future Appointments Appointment Date:06/30/2023 09:15:00 AM Scheduled Provider: Location:[facility] Appointment Type:URO Nurse Visit [facility] evaluation + Plan note Future Appointments Appointment Date:07/31/2023 08:30:00 AM Scheduled Provider: Location:[facility] Appointment Type:Urology FT [facility] Evaluation + Plan note Future Appointments Appointment Date:07/31/2023 08:30:00 AM Scheduled Provider: Location:[facility] Appointment Type:Urology FT Diagnostic Tests Pending * Urine Cyt[facility] Appointment Date:12/25/2023 07:30:00 AM Scheduled Provider: Location:[facility] Appointment Type:Surgical PAT FT Appointment Date:01/02/2024 08:00:00 AM Scheduled Provider: Location:[facility] Appointment Type:Surgery FT [facility] evaluation + Plan note Future Appointments Appointment Date:01/02/2024 08:00:00 AM Scheduled Provider: Location:[facility] Appointment Type:Surgery FT Appointment Date:01/12/2024 08:15:00 AM Scheduled Provider:Meghan Brito MD Location:[facility] App[facility]ment [facility] Future App[facility]ments Appointment Date:10/03/2024 08:00:00 AM Scheduled Provider:Meghan Brito MD Location:[facility] Appointment Type:URO Office Visit [facility] Evaluation + Plan note Future Appointments Appointment Date:10/23/2024 08:00:00 AM Scheduled Provider: Location[facility] Appointment Type:CT Abdomen/Pelvis Combo (FT) Appointment Date:10/15/2025 10:00:00 AM Scheduled Provider:Meghan Brito MD Location:[facility] Appointment Type:URO Office Visit Future Scheduled Tests Radiology* CT Abdomen/Pelvis w/ + w/o Contrast 10/23/24 [facility] evaluation + Plan note Future Appointments Appointment Date:10/15/2025 10:00:00 AM Scheduled Provider:Meghan Brito MD Location:[facility] Appointment Type:URO Office Visit [facility] evaluation noteNo assessment information available [facility] Work Phone: evalujyacg noteNo InformationNort [employer] Other evaluhctbq note* Diagnosis Onset Date Resolution Status Anemia acuteBenign prostatic hyperplasia with lower urinary tract symptomsacuteChronic bronchitisacuteChronic kidney diseaseacuteElevated PSAacuteHypercholesterolemia acuteHypertensionacuteNicotine addictionacuteScreening PSA (prostate specific antigen)acuteWelcome to Medicare preventive visitnoneactive [facility] Work Phone: Evaluation note* Diagnosis Onset Date Resolution Status Acute gout acuteBenign prostatic hyperplasia with lower urinary tract symptomsacute Hypertensionacute [facility] Work Phone: evaluation note* Diagnosis Onset Date Resolution Status Admit Date Anemia acuteJune 2024 9:43amAortic insufficiencyacuteJune 2024 9:43amChronic bronchitisacuteJune 2024 9:43amChronic kidney diseaseacuteJune 2024 9:43amElevated PSAacuteJune 2024 9:43amHypercholesterolemiaacuteJune 2024 9:43amHypertensionacuteJune 2024 9:43amNicotine addictionacuteJune 2024 9:43amPulmonary hypertensionacuteJune 2024 9:43amScreening PSA (prostate specific antigen)acuteJune 2024 9:43amMedicare annual wellness visit, initialnoneactiveJune 2024 9:43am [facility] Work Phone: Evaluation note* Diagnosis Onset Date Resolution Status Admit Date Anemia acuteOctober 2024 9:54amAortic insufficiencyacuteOctober 2024 9:54am Chronic bronchitisacuteOctober 2024 9:54amChronic kidney diseaseacute October 2024 9:54amFolic acid deficiencyacuteOctober 2024 9:54am HypercholesterolemiaacuteOctober 2024 9:54amHypertensionacuteOctober 2024 9:54amNicotine addictionacuteOctober 2024 9:54amPulmonary hypertensionacuteOctober 2024 9:54am [facility] Work Phone: History general Narrative - Reported* Type Description Date Medical History high blood pressure Medical Historyhigh cholesterol [facility] Other [facility] general Narrative - Reported* Type Description Date Medical History high blood pressure Medical Historyhigh cholesterolMedical HistoryBenign prostatic hyperplasia with lower urinary tract symptomsMedical HistoryLipoma of backMedical HistoryNicotine dependence, cigarettes, in remissionMedical HistoryAnemia, unspecified type Medical HistoryHyperlipidemia type IIMedical HistoryEssential hypertension Medical HistoryHyponatremiaMedical HistoryGastroesophageal reflux disease with esophagitis without hemorrhageSurgical [id number] History TRUS WITH [id number], 2020Surgical HistoryLEFT [id number] History SEE SURGICAL [facility] Other [facility] general Narrative - Reported* Type Description Date Medical History high blood pressure Medical Historyhigh cholesterolMedical HistoryBenign prostatic hyperplasia with lower urinary tract symptomsMedical HistoryLipoma of backMedical HistoryNicotine dependence, cigarettes, in remissionMedical HistoryAnemia, unspecified type Medical HistoryHyperlipidemia type IIMedical HistoryEssential hypertension Medical HistoryHyponatremiaMedical HistoryGastroesophageal reflux disease with esophagitis without hemorrhageMedical HistoryCOPDSurgical [id number] Surgical HistoryTRUS WITH [id number], 2020Surgical HistoryLEFT [id number] Hospitalization HistorySEE SURGICAL [facility] Other Hospital course Narrative No data available for this section [facility] Hospital Discharge instructions No data available for this section [facility] progress note No data available for this section [facility] reason for referral (narrative)No reason for referral information availableL[facility]aster [facility] Hospital Work Phone: Summary Purpose Family History Relationship Condition Age at Onset Recorded Date/T sharona Not Specified Diabetes mellitus Unknown fatherMyocardial infarctionUnknownsisterCerebrovascular accident (CVA)Unknown sisterDiabetes mellitusUnknown Relationship Condition Age at Onset Recorded Date/T sharona Not Specified Diabetes mellitus Unknown fatherMyocardial infarctionUnknownsisterCerebrovascular accident (CVA)Unknown sisterDiabetes mellitusUnknownfatherHistory of strokeUnknownDeceasedUnknownNot SpecifiedHistory of strokeUnknown Relationship Condition Age at Onset Recorded Date/T sharona mother Diabetes mellitus Unknown fatherMyocardial infarctionUnknownsisterCerebrovascular accident (CVA)Unknown sisterDiabetes mellitusUnknownfatherHistory of strokeUnknownDeceasedUnknown motherHistory of strokeUnknown Advance Directives Advance Directive Response Recorded Date/ [...] foot swelling toe , and heel pain UnknownReason for VisitAcute gout Benign prostatic hyperplasia with lower urinary [...] wellness visit, initial November 29, 2024 9:43am Chief Complaint Admit Date 4 month f/u April 16, 2025 9 :54am Reason for Visit Admit Date Anemia April 16, 2025 9 :54am Aortic insufficiency April 16, 2025 9:54am Chronic bronchitis April 16, 2025 9 :54am Chronic kidney disease April 16 9:54am Folic acid deficiency April 16, 2025 9:54am Hypercholesterolemia April 16, 2025 9:54am Hypertension April 16, 2025 9 :54am Nicotine addiction April 16, 2025 9 :54am Pulmonary hypertension April 16 9:54am Additional Source Comments REASON FOR VISIT (unrecogniz [...] and content) DATE CREATED AUTHOR 11/08/2022 [facility] DATE CREATED AUTHOR AUTHOR'S ORGANIZ ATION 06/17/2023 [facility] DATE CREATED AUTHOR AUTHOR'S ORGANIZ ATION 12/25/2023 [facility] DATE CREATED AUTHOR AUTHOR'S ORGANIZ ATION 12/26/2023 [facility] DATE CREATED AUTHOR AUTHOR'S ORGANIZ ATION 03/17/2024 [facility] DATE CREATED AUTHOR AUTHOR'S ORGANIZ ATION 10/22/2024 [facility] DATE CREATED AUTHOR AUTHOR'S ORGANIZ ATION 10/30/2024 [facility] DATE CREATED AUTHOR AUTHOR'S ORGANIZ ATION 11/03/2024 [facility] DATE CREATED AUTHOR AUTHOR'S ORGANIZ ATION 12/29/2024 [facility] DATE CREATED AUTHOR AUTHOR'S ORGANIZ ATION 04/14/2025 [facility] Patient Care team informatio n [...] Gio Cavanaugh DO Primary Care Provider Active Roger Dos SantosActive Team Status: Active Member Role Status Dates Gio Cavanaugh DO Primary Care Provider Active Start: February 22, 2024 Glo Noriega ProviderActiveStart: February 22, 2024 Team Status: Inactive Member [...] Start: March 06, 2024 End: March 06, 2024Glo Noriega ProviderActiveStart: March 06, 2024 End: March 06, 2024 Team Status: Active Member Role Status Dates Gio Cavanaugh DO Primary Care Provider Active Start: March 06, 2024 Glo Noriega ProviderActiveStart: March 06, 2024 Team Status: Active Member Role Status Dates Gio Cavanaugh DO Primary Care Provider Active Start: October 04, 2024 Glo Lott ProviderActiveStart: October 04, 2024 Team Status: Active Member Role Status Dates Gio Cavanaugh DO Primary Care Provider Active Start: October 17, 2024 Glo Lott ProviderActiveStart: October 17, 2024 Team Status: Inactive Member Role Status Dates Gio Mao DO Primary Care Provide r, Attending Provider Active Start: November 29, 2024 End: November 29, 2024 Team Status: Active Member Role/Relationship Status Dates Gio Cavanaugh Primary Care Provider Active Team Status: Active Member Role/Relationship Status Dates Gio Cavanaugh , Primary Care Provider Active Start: April 09, 2025 Gio Cavanaugh DOHeidiestela ProviderActiveStart: April 09, 2025 Team Status: Inactive Member Role/Relationship Status Dates Gio Cavanaugh , Primary Care Provider Active Start: April 16, 2025 End: April 16abimaelElmer Collier ProviderActiveStart: April 16, 2025 End: April 16, 2025 Goals (unrecognized section and content) Goals may [...] ON THE PRIMARY CLINICAL RECORDS. [facility] [employer] provides no warranty or guarantee of the accuracy or completeness of information in this document.
--- NOTE | 2025-06-23 09:32 | CT_ITS ---
The [address] [address] Patient Name: RUSSELL SANCHEZ MRN: [id number] date: 1955 Sex: M Assigned Patient Location: CT Current Patient Location: CT Accession/Order Number: [id number] Exam Date: 06/23/2025 09:27 Report Date: 06/23/2025 10:58 At the request of: GOLDY CAVANAUGH DO Procedure: CT lung screening low-dose LOW-DOSE SCREENING CHEST CT WITHOUT CONTRAST COMPARISON: 06/21/2024 CLINICAL DATA: Former smoker with 48 pack year history. Spiral axial unenhanced low-dose images were obtained through the chest. Images were reviewed using both narrow and wide window settings. This CT exam was performed using one or more following dose reduction techniques: Automated exposure control, adjustment of the mA and/or kV according to patient size, or use of iterative reconstruction technique. The heart is within normal limits for size. No pericardial effusion is seen. There is coronary artery disease. The ascending aorta is mildly ectatic. There is minor plaque at the aortic arch and descending aorta. No enlarged lymph nodes are identified. A tiny hiatal hernia is seen. Minor gynecomastia is noted. Slight dextroscoliotic curvature and endplate spurring are present spine. There is mild atelectasis or scarring. There is a new somewhat nodular 18 - 19 mm opacity at the anterolateral lingula adjacent to the major fissure. There is a tiny right middle lobe nodule adjacent to the minor fissure which is unchanged. No pleural effusion or pneumothorax is seen. Limited imaging through the upper abdomen shows no contributory findings. CT/CT lung screening low-dose IMPRESSION: DEVELOPING NODULAR LINGULAR OPACITY. IT IS POSSIBLE THIS IS INFECTIOUS OR INFLAMMATORY HOWEVER MALIGNANCY IS NOT COMPLETELY EXCLUDED. Lung RADS category 4B one month low-dose CT follow-up is suggested to address the potential for infectious or inflammatory conditions. It does not resolve, then PET/CT could be performed. Impression dictated by: Kate Vincent M.D. 06/23/2025 10:58 AM Dictation Location: [place] [address] Electronically authenticated by: [id number] Y Date: 06/23/2025 10:58
== END 2025-06-23 09:10 | disposition home or self-care (01) ==
LOC: CT 09:09
PROVIDERS: PCP Internal Medicine; Visit Provider Internal Medicine
DX: R91.8 Other nonspecific abnormal finding of lung field (principal); Z87.891 Personal history of nicotine dependence
CPT/HCPCS: 71271